=== PATIENT | female | born 1965 | race Caucasian/White ===

== ENCOUNTER → 2017-10-22 16:37 | Outpatient (CLI) | payer OTHER, SELFPAY ==
--- NOTE | 2017-10-22 16:41 | CT_ITS ---
STUDY: CT ABDOMEN AND PELVIS WITHOUT CONTRAST REASON FOR EXAM: Female, 52 years old. Right flank pain and hematuria. RADIATION DOSAGE (If Supplied By Facility): CTDIvol = ( 15.03 ) mGy, DLP = ( 830.15 ) mGycm TECHNIQUE: Transaxial images were obtained from the dome of the diaphragm to the symphysis pubis without oral contrast, and without intravenous contrast. Sagittal and coronal images were reconstructed. Individualized dose optimization techniques were used for this CT. COMPARISON: Prior abdomen and pelvic CT exam of January 08, 2016 FINDINGS: The visualized lung bases are unremarkable. The visualized portions of the heart are within normal limits. Normal liver. There are surgical clips in the gallbladder fossa consistent with a prior cholecystectomy. Normal spleen. Normal pancreas. Normal bilateral adrenal glands. Normal right kidney. Faint calcific density of the upper pole of the left kidney. Negative for hydronephrosis or ureteral stones. Partially fluid-filled stomach. Normal small intestine. Stool filled colon. There is non-visualization of the appendix. Mild calcified plaque of the aorta. Normal inferior vena cava. Normal retroperitoneum. Normal urinary bladder. There is absence of the uterus consistent with a prior hysterectomy. Negative for pelvic mass or free fluid of the pelvis. Minimal fatty umbilical hernia. There are diffuse degenerative changes of the visualized lumbar spine. CT/Abdomen/Pelvis without Cont IMPRESSION: Normal size of the kidneys bilaterally. Nonobstructing calcification in the upper pole of the left kidney. Negative for hydronephrosis, ureteral or bladder stones. Stool-filled colon. No acute bowel related findings. Negative for obstruction, perforation or inflammatory bowel changes. Status post cholecystectomy and hysterectomy. Negative for pelvic mass or free fluid. Electronically Signed: Kathy Thornton MD at 17:21 EDT , Service support ,
[2017-10-22 18:04] LABS: Absolute Lymphocyte Count 2.81 X10^3/ul (0.83-4.51); Absolute Neutrophil Count 10.4 X10^3/uL (2.0-7.7); Basophil# 0.05 X10^3/uL; Basophil% 0.3 % (0-1); Eosinophil# 0.18 X10^3/uL; Eosinophils% 1.2 % (0-5); Hematocrit 38.5 % (37-47); Hemoglobin 12.7 g/dl (12.0-15.0); Lymphocyte # 2.81 X10^3/ul (4.0); Mean Corpuscular Hgb 30.2 pg (27.0-32.0); Mean Corpuscular Volume 91.7 fL (81-99); Monocyte# 1.29 X10^3/uL; Monocyte% 8.7 % (0-10); Neutrophil # 10.39 X10^3/uL (2.7-7.7); Neutrophil % 70.5 % (47-70); Platelet Count 220 K/mm3 (150-450); RBC Distribution Width CV 12.2 % (11.6-14.6); RBC Distribution Width SD 39.9 fl (35.1-43.9); White Blood Count 14.8 K/mm3 (4.4-11.0)
[2017-10-22 18:05] LABS: POSITIVE COUNT NO; POSITIVE DIFFERENTIAL NO; POSITIVE MORPHOLOGY NO
[2017-10-22 18:30] LABS: Anion Gap 6 (5-15); BUN 9 mg/dL (7-18); Calcium,Total 8.5 mg/dL (8.5-10.1); Chloride 103 mmol/L (98-107); EST Glomerular Filtration Rate 111 mL/min (>60); Est Glom Filt Rate - Afr Amer 134 mL/min (>60); Glucose 104 mg/dL (74-106); Potassium 3.9 mmol/L (3.5-5.1); Sodium Level 138 mmol/L (136-145)
== END ==
PROVIDERS: Family Provider Family Medicine; PCP Family Medicine; Visit Provider Family Medicine
DX: N12 Tubulo-interstitial nephritis, not specified as acute or chronic (principal)
CPT/HCPCS: 36415; 74176; 80048; 85025

== ENCOUNTER 2017-10-23 18:29 | Inpatient (IN) | payer OTHER, SELFPAY ==
[2017-10-23] VITALS (9 sets, daily range): BP systolic 116–146; BP diastolic 74–95; PULSE 67–108; RESP 8–18; TEMP 37–38.7; O2SAT 92–108; BMI 32.2; BMI 33.7
--- NOTE | 2017-10-23 18:51 | EKG12_ITS ---
Test Reason : FEVER Blood Pressure : / mmHG Vent. Rate : 096 BPM Atrial Rate : 096 BPM P-R Int : 164 ms QRS Dur : 096 ms QT Int : 392 ms P-R-T Axes : 064 -12 -23 degrees QTc Int : 495 ms Normal sinus rhythm Nonspecific T wave abnormality Prolonged QT Abnormal ECG Confirmed by SANTIAGO ESPINOSA, VOLODYMYR ([id number]), photographic editor WILLIAM LOO ([id number]) on 10/28/2017 2:18:36 PM Referred By: Harshad Karimi Confirmed By:VOLODYMYR HENDERSON MD
--- NOTE | 2017-10-23 18:52 | ED.VISSUMM ---
- ER Visit Summary Date of Service: 10/23/17 Chief Complaint: Fever History of Present Illness: The patient is a 52 F presents with fever. On October 15 the patient began to have urinary symptoms including hematuria. She was placed on Cipro as she has urinary tract infections about 3 times a year. After 5 days she was not improved. She did not have anymore due to the of a grandbaby she put off further treatment. Eventually she got back on Cipro 36 hours ago. She states that she has had persistent nausea and vomiting. She has been able to keep water down today. She took Tylenol prior to arrival. Patient denies any rashes. She notes the pain has mostly been on the right side. Yesterday and working with her primary care physician she had blood work which showed a white count of 14.[address] that was noncontrast of the abdomen pelvis did not show any stone (she has a history of the same). Physical Examination: Temperature 101.7 heart rate of 108 respirations are 17 pulse ox is 92% on room air blood pressure 146/95 Gen: Well-nourished well-developed Head: Normocephalic atraumatic Eyes: Perrl EOMI ENT: TMs clear no rhinorrhea moist mucous membranes Neck: Supple no lymphadenopathy no JVD nontender CVS: Tachycardia regular rate rhythm no murmurs normal S1-S2 Respiratory: No distress clear to auscultation bilaterally chest nontender Abdomen: Soft nontender nondistended normal bowel sounds no masses Back: CVA tenderness Extremity: Prior left leg amputation Skin: Normal color no rash Neuro: alert orientated ?3 CN II-XII intact normal strength sensation reflexes gait cerebellar Psych: Normal affect normal mood Test Results: White count is elevated 15.3. Lactic acid 0.8. Urine is grossly infected with white count greater than 102+ bacteria. Chest x-ray is negative. Emergency Department Course and Treatment: The patient received IV fluids, Motrin, and Zofran. Patient received Rocephin as well as vancomycin to cover for potential MRSA which is led to significant complications in the patient's past. Blood and urine cultures were obtained before antibiotics. Plan is admission into the hospital Impression: 1. Urinary tract infection 2. Sepsis This note was generated with [employer] dictation software. It may contain incorrect words, spelling, and punctuation that were not noted in review of the chart prior to signing ED Disposition - Plan for ED Patient: Disposition: Acute Care Hospital [facility] Chief Complaint: Fever
--- NOTE | 2017-10-23 19:00 | RAD_ITS ---
STUDY: X-RAY CHEST REASON FOR EXAM: Female, 52 years old. UTI, fever TECHNIQUE: Single frontal view COMPARISON: July 22, 2015 FINDINGS: The lungs are clear and expanded. There is no demonstrated pleural abnormality. Slightly prominent size heart. Normal mediastinum and ya. Normal visualized pulmonary arteries. Normal visualized aortic arch and descending thoracic aorta. Mild degenerative changes of the thoracic spine. Normal visualized ribs, clavicles, and shoulders. There is no demonstrated abnormality of the visualized soft tissue structures of the upper abdomen. RAD/Chest 1 View (Portable) IMPRESSION: Slightly prominent cardiac shadow. Electronically Signed: Michael Pereira DO at 19:33 EDT Tel [phone], Service support ,
[2017-10-23] MEDS: 0.9% Normal Saline 1,000 ML 150 ML IV (19:22)
[2017-10-23] MEDS: 0.9% Normal Saline 1,000 ML 999 ML IV (19:22)
[2017-10-23] MEDS: Ondansetron 4 MG/2 ML Vial IV ×2 (19:31→21:01)
[2017-10-23] MEDS: Ibuprofen 400 MG Tablet 800 MG PO (19:31)
[2017-10-23 19:56] LABS: Absolute Lymphocyte Count 1.61 X10^3/ul (0.83-4.51); Absolute Neutrophil Count 11.7 X10^3/uL (2.0-7.7); Basophil# 0.04 X10^3/uL; Basophil% 0.3 % (0-1); Eosinophil# 0.14 X10^3/uL; Eosinophils% 0.9 % (0-5); Hematocrit 36.9 % (37-47); Lymphocyte # 1.61 X10^3/ul (4.0); Lymphocyte % 10.5 % (19-41); Mean Corp Hgb Conc 32.5 g/gl (32-36); Mean Corpuscular Hgb 30.4 pg (27.0-32.0); Mean Corpuscular Volume 93.4 fL (81-99); Mean Platelet Vol. 9.9 fl (6.2-12.0); Monocyte# 1.81 X10^3/uL; Monocyte% 11.8 % (0-10); Neutrophil # 11.69 X10^3/uL (2.7-7.7); Neutrophil % 76.2 % (47-70); Platelet Count 213 K/mm3 (150-450); RBC Distribution Width CV 12.4 % (11.6-14.6); RBC Distribution Width SD 42.2 fl (35.1-43.9); Red Blood Count 3.95 M/mm3 (4.2-5.4); White Blood Count 15.3 K/mm3 (4.4-11.0)
[2017-10-23 19:57] LABS: Mucous, Urine 0 SEEN /hpf (<or=2+); Red Blood Cells-Urine 0 SEEN /hpf (0-5)
[2017-10-23 19:58] LABS: Differential Indicated SCAN CRITERIA MET; POSITIVE COUNT NO; POSITIVE DIFFERENTIAL YES; POSITIVE MORPHOLOGY NO
[2017-10-23 20:00] LABS: Color, Urine SEE COMMENT BELOW (Yellow); Glucose, Dipstick Normal (Normal); Ketone-Dipstick Negative (Negative); Leukocyte Esterase-Dipstick 500 /ul (Negative); Nitrite-Dipstick Positive (Negative); Occult Blood-Urine 50 /ul (Negative); Protein-Dipstick 100 mg/dl (Negative); Specific Gravity, Urine 1.015 (1.002-1.030); Urine Bilirubin Dipstick 6 mg/dL (Negative); Urine Clarity Sl. Cloudy (Clear); Urine Urobilinogen 12 mg/dl (Normal)
[2017-10-23 20:26] LABS: Bacteria 2+ /hpf (None Seen)
[2017-10-23 20:27] LABS: Squamous Epithelial Cells - UA 0-5 SEEN /hpf (5-10); White Blood Cells >100 SEEN /hpf (0-5)
[2017-10-23 20:35] LABS: Differential Comment SCANNED
[2017-10-23 20:38] LABS: International Normalized Ratio 1.1; Prothrombin Time (Protime)PT. 13.8 SECONDS (11.7-14.9)
[2017-10-23 20:39] LABS: Partial Thromboplast Time 30.7 Seconds (24.1-36.2)
[2017-10-23 20:42] LABS: Lactic Acid 0.8 mmol/L (0.4-2.0)
[2017-10-23 20:47] LABS: ALB/GLOB Ratio 0.8 RATIO (0.9-2.4); AST(SGOT) 14 U/L (15-37); Alanine Aminotransfer ALT/SGPT 23 U/L (13-56); Albumin, Serum 3.3 g/dL (3.2-5.0); Alkaline Phosphatase 87 U/L (45-117); Anion Gap 8 (5-15); BUN 11 mg/dL (7-18); Chloride 103 mmol/L (98-107); Creatinine, Serum 0.69 mg/dL (0.55-1.02); EST Glomerular Filtration Rate 95 mL/min (>60); Est Glom Filt Rate - Afr Amer 114 mL/min (>60); Globulin 4.2 g/dL (2.2-4.2); Glucose 106 mg/dL (74-106); Potassium 3.7 mmol/L (3.5-5.1); Protein, Total 7.5 g/dL (6.4-8.2); Sodium Level 139 mmol/L (136-145)
--- NOTE | 2017-10-23 21:38 | PCM.HP.STD ---
Problem List (1) Chronic pain syndrome Status: Chronic (2) Anxiety and depression Status: Chronic (3) Obesity (BMI 30.0-34.9) Status: Chronic (4) UTI (urinary tract infection) Status: Acute Qualifiers: Urinary tract infection type: site unspecified (5) Sepsis Status: Acute Qualifiers: Sepsis type: sepsis due to unspecified organism Qualified Code(s): A41.9 - Sepsis, unspecified organism (6) Hyperlipidemia Status: Chronic Qualifiers: Hyperlipidemia type: unspecified Qualified Code(s): E78.5 - Hyperlipidemia, unspecified (7) Obesity Status: Chronic Qualifiers: Obesity type: due to excess calories Obesity classification: adult class 1 (BMI 30 - 34.9) Serious obesity comorbidity presence: unspecified whether serious comorbidity present Body mass index: BMI 32.0-32.9 Qualified Code(s): E66.09 - Other obesity due to excess calories; Z68.32 - Body mass index (BMI) 32.0-32.9, adult (8) Phantom limb syndrome Status: Chronic (9) S/P unilateral above knee amputation Status: Chronic (10) Seizure disorder Status: Chronic History of Present Illness Date of Admission: 10/23/17 Chief Complaint: UTI, failed outpatient abx The patient is a 52 y/o F w/ PMHx: Complex partial seizure disorder, Hyperlipidemia, Chronic Pain Syndrome w/ Phantom Limb Syndrome, Anxiety and Depression, Obesity, Hx MRSA Infection LLE s/p amputation who presents to the [facility] ED on 10/23/17 with ongoing dysuria, nausea with dx per PCP w/ UTI on 10/20/17 with office UA but UCx obtained, placed on cipro which was continued x 5 days without improvement with return to PCP and restart on additional cipro regimen w/ stone protocol CT obtained without acute findings per PCP without improvement with onset fevers, chills, continued nausea without emesis. In the ED work-up included T 101.7, HR 105, BP 125/74, RR 13, 93% 2L NC, CBC w/ WBC 15.3, Hgb 12, Plts 213 with L shift, normal coags, unremarkable CMP, trop normal x 1, UA notably remarkable, UCx and Bld Cx x 2 pending per ED, CXR without marked findings, CT A/P w/ no acute findings, stool filled colon. Past Medical History Past Medical History (Chronic Problems): Chronic Problems Chronic pain syndrome (Chronic) Anxiety and depression (Chronic) Obesity (BMI 30.0-34.9) (Chronic) Seizure disorder (Chronic) Obesity (Chronic) S/P unilateral above knee amputation (Chronic) Hyperlipidemia (Chronic) Phantom limb syndrome (Chronic) Right sided weakness (Chronic) Cephalgia (Chronic) Allergies metoclopramide HCl [From Reglan] Allergy (Verified 10/23/17 18:30) Other SHAKING prochlorperazine edisylate [From Compazine] Allergy (Verified 10/23/17 18:30) Hives prochlorperazine maleate [From Compazine] Allergy (Verified 10/23/17 18:30) Hives promethazine HCl [From Phenergan] Allergy (Verified 10/23/17 18:30) Hives Home Medications: Ambulatory Orders Medication Instructions Recorded Buprenorphine HCl 32 mg SL 4X/DAY 02/05/14 Duloxetine Hcl [Cymbalta] 60 mg PO DAILY 02/05/14 FA/Mv,Ca,Iron,Min/Lycopene/Lut 1 each PO DAILY 02/05/14 [Centravites Tablet] Pregabalin [Lyrica] 150 mg PO DAILY 02/05/14 Docusate Sodium [Colace] 100 mg PO DAILY 07/22/15 Baclofen 10 mg PO QHS PRN 07/23/15 Carbamazepine [Carbamazepine ER] 800 mg PO DAILY 07/23/15 Ciprofloxacin [Cipro] 500 mg PO BID 10/23/17 Quetiapine Fumarate [Seroquel] 300 mg PO QHS 10/23/17 Surgical History: appendectomy, cholecystectomy, hysterectomy, - - LLE amputation s/p MRSA infection, Carpal tunnel surgery. 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, Depression [employer] History: No pertinent [employer] history Lives: Spouse/ Significant Other Smoking Status: Never smoker Tobacco Use: Non-smoker Alcohol: None Drugs: None - *Family History Maternal History Items: Hypertension Paternal History Items: Heart Disease - Father w/ first OK 40s., Hypertension Review of Systems Constitutional: Reports: Anorexia, Chills, Fever, Malaise, Weakness, Fatigue. Denies: Weight Change HEENT: Denies: Head Aches, Sinus Congestion, Sinus Drainage Cardiovascular: Denies: Chest Pain, Palpitations Respiratory: Denies: Cough, Shortness of breath at rest, Sputum production Gastrointestinal: Reports: Abdominal Pain, Nausea. Denies: Vomiting Genitourinary: Reports: Dysuria Musculoskeletal: Reports: Back Pain. Denies: Joint Pain, Joint Tenderness Skin: Denies: Rash, Wounds Neurological: Denies: Numbness, Tingling, Focal weakness Psychiatric: Reports: Anxiety, Depression. Denies: Homicidal Ideations, Suicidal Ideations Hematologic/ Lymphatic: Denies: Easy Bruising, Easy Bleeding VTE Information - Inpt Only VTE Present on Admission: No VTE Mechan Device Prophylaxis: SCD's VTE Pharm Prophylaxis ordered?: Yes Patient Problems: Active and Suspected Problems UTI (urinary tract infection) (Acute) Sepsis (Acute) Subjective: Seated upright in the ED bed, NAD, notes feeling improved w/ ED zofran, IVFs, abx started. Objective: Physical Examination: General: awake, alert, oriented x 3 and cooperative, seated upright in the ED bed in no apparent distress. Skin: normal color, turgor, no icterus, cyanosis. HEENT: AT/NC, EOMI, PERRLA, dry MM, no carotid bruits or JVD noted. Lungs: CTA bilaterally, moderate effort, mild decrease BL bases, no rales, ronchi or wheezing. Heart: Regular rate and rhythm; no gallop, rub audible. Abdomen: soft, obese, mild suprapubic TTP, mild flank discomfort, ND, normal BS, no HSM. Extremities: no cyanosis, clubbing, s/p LLE amputation. Neurological: patient awake, alert, oriented x 3; cognitive function intact; pupils equally reactive to light and accomodation; cranial nerves II-XII grossly normal, moving all 3 extremities, no focal deficits, strength moderately globally decreased secondary to acute presentation. Psychiatric: affect appears normal, no acute evidence of depressive or anxiety feelings. - Physical Exam Vital Signs Temp Pulse Resp BP Pulse Ox 99.1 F 67 8 L 135/93 H 98 10/23/17 20:41 10/23/17 21:15 10/23/17 21:15 10/23/17 21:15 10/23/17 21:15 Oxygen Flow Rate (L/min) 2 Oxygen Delivery Method Nasal Cannula Weight: 182 lb Body Mass Index (BMI) 32.2 Laboratory Tests Past 24 Hrs 10/23/17 10/23/17 10/23/17 19:20 19:20 19:20 WBC 15.3 H RBC 3.95 L Hgb 12.0 Hct 36.9 L MCV 93.4 MCH 30.4 MCHC 32.5 RDW 12.4 RDW Differential 42.2 Plt Count 213 MPV 9.9 Immature Gran % (Auto) 0.300 Neut % (Auto) 76.2 H Lymph % (Auto) 10.5 L [place] % (Auto) 11.8 H Eos % (Auto) 0.9 Baso % (Auto) 0.3 Absolute Neuts (auto) 11.7 H Absolute Lymphs (auto) 1.61 Total Counted Not Reportable Differential Comment SCANNED Diff Path Review May foll PT Cancelled INR Cancelled APTT Cancelled Sodium Cancelled Potassium Cancelled Chloride Cancelled Carbon Dioxide Cancelled Anion Gap Cancelled BUN Cancelled Creatinine Cancelled Estim Creat Clear Calc Cancelled Est GFR (MDRD) Af Amer Cancelled Est GFR (MDRD) Non-Af Cancelled BUN/Creatinine Ratio Cancelled Glucose Cancelled Lactic Acid Calcium Cancelled Total Bilirubin Cancelled AST Cancelled ALT Cancelled Alkaline Phosphatase Cancelled Troponin I Cancelled Total Protein Cancelled Albumin Cancelled Globulin Cancelled Albumin/Globulin Ratio Cancelled Urine Color Urine Clarity Urine pH Ur Specific [place] Urine Protein Urine Glucose (UA) Urine Ketones Urine Occult Blood Urine Nitrite Urine Bilirubin Urine Urobilinogen Ur Leukocyte Esterase Urine RBC Urine WBC Ur Squamous Epith Cells Urine Bacteria Urine Mucus 10/23/17 10/23/17 10/23/17 19:20 19:55 20:10 WBC RBC Hgb Hct MCV MCH MCHC RDW RDW Differential Plt Count MPV Immature Gran % (Auto) Neut % (Auto) Lymph % (Auto) [place] % (Auto) Eos % (Auto) Baso % (Auto) Absolute Neuts (auto) Absolute Lymphs (auto) Total Counted Differential Comment Diff Path Review PT INR APTT Sodium 139 Potassium 3.7 Chloride 103 Carbon Dioxide 28.0 Anion Gap 8 BUN 11 Creatinine 0.69 Estim Creat Clear Calc 78.00 Est GFR (MDRD) Af Amer 114 Est GFR (MDRD) Non-Af 95 BUN/Creatinine Ratio 16.0 Glucose 106 Lactic Acid Cancelled Calcium 8.0 L Total Bilirubin 0.40 AST 14 L ALT 23 Alkaline Phosphatase 87 Troponin I < 0.02 Total Protein 7.5 Albumin 3.3 Globulin 4.2 Albumin/Globulin Ratio 0.8 L Urine Color SEE COMMENT BELOW Urine Clarity Sl. Cloudy Urine pH 5.0 Ur Specific [place] 1.015 Urine Protein 100 H Urine Glucose (UA) Normal Urine Ketones Negative Urine Occult Blood 50 H Urine Nitrite Positive H Urine Bilirubin 6 H Urine Urobilinogen 12 H Ur Leukocyte Esterase 500 H Urine RBC 0 SEEN Urine WBC >100 SEEN Ur Squamous Epith Cells 0-5 SEEN Urine Bacteria 2+ Urine Mucus 0 SEEN 10/23/17 10/23/17 20:10 20:10 WBC RBC Hgb Hct MCV MCH MCHC RDW RDW Differential Plt Count MPV Immature Gran % (Auto) Neut % (Auto) Lymph % (Auto) [place] % (Auto) Eos % (Auto) Baso % (Auto) Absolute Neuts (auto) Absolute Lymphs (auto) Total Counted Differential Comment Diff Path Review PT 13.8 INR 1.1 APTT 30.7 Sodium Potassium Chloride Carbon Dioxide Anion Gap BUN Creatinine Estim Creat Clear Calc Est GFR (MDRD) Af Amer Est GFR (MDRD) Non-Af BUN/Creatinine Ratio Glucose Lactic Acid 0.8 Calcium Total Bilirubin AST ALT Alkaline Phosphatase Troponin I Total Protein Albumin Globulin Albumin/Globulin Ratio Urine Color Urine Clarity Urine pH Ur Specific [place] Urine Protein Urine Glucose (UA) Urine Ketones Urine Occult Blood Urine Nitrite Urine Bilirubin Urine Urobilinogen Ur Leukocyte Esterase Urine RBC Urine WBC Ur Squamous Epith Cells Urine Bacteria Urine Mucus Assessment/Plan Active and Suspected Problems UTI (urinary tract infection) (Acute) Sepsis (Acute) The patient is a 52 y/o F w/ PMHx: Complex partial seizure disorder, Hyperlipidemia, Chronic Pain Syndrome w/ Phantom Limb Syndrome, Anxiety and Depression, Obesity, Hx MRSA Infection LLE s/p amputation who presents to the [facility] ED on 10/23/17 with ongoing dysuria, nausea with dx per PCP w/ UTI on 10/20/17 with office UA but UCx obtained, placed on cipro which was continued x 5 days without improvement with return to PCP and restart on additional cipro regimen w/ stone protocol CT obtained without acute findings per PCP without improvement with onset fevers, chills, continued nausea without emesis. (1) Acute Sepsis secondary to Acute Urinary Tract Infection: Will admit to [facility] w/ telemetry, UA upon ED evaluation remarkable, pending UCx, admission CBC w/ WBC 15.3 with L shift, febrile prior, continue IVFs, monitor I/Os, continue IV Rocephin, given IV vanc x 1 dose in the ED pending Cx with history of MRSA, will continue until UCx results w/ transition as able pending sensitivities and speciation. Bld cx x 2 obtained in the ED. (2) Phantom limb pain syndrome: Will continue home subutex or equivalent regimen per pharmacy, lyrica and baclofen home regimen. (3) Complex partial seizure history: Continue home carbemazepine regimen. (4) Obesity: Weight loss and lifestyle changes encouraged. (5) Anxiety and Depression: Maintain on home cymbalta, seroquel regimen. (6) Hyperlipidemia: Not on regimen, noted history. (7) DVT prophylaxis: SCDs, lovenox. Code Visit Inpatient E&M: 23324 Init Hosp L3
--- NOTE | 2017-10-23 21:49 | HP.PCM_ITS ---
Problem List (1) Chronic pain syndrome Status: Chronic (2) Anxiety and depression Status: Chronic (3) Obesity (BMI 30.0-34.9) Status: Chronic (4) UTI (urinary tract infection) Status: Acute Qualifiers: Urinary tract infection type: site unspecified (5) Sepsis Status: Acute Qualifiers: Sepsis type: sepsis due to unspecified organism Qualified Code(s): A41.9 - Sepsis, unspecified organism (6) Hyperlipidemia Status: Chronic Qualifiers: Hyperlipidemia type: unspecified Qualified Code(s): E78.5 - Hyperlipidemia , unspecified (7) Obesity Status: Chronic Qualifiers: Obesity type: due to excess calories Obesity classification: adult class 1 (BMI 30 - 34.9) Serious obesity comorbidity presence: unspecified whether serious comorbidity present Body mass index: BMI 32.0-32.9 Qualified Code(s) : E66.09 - Other obesity due to excess calories; Z68.32 - Body mass index (BMI) 32.0-32.9, adult (8) Phantom limb syndrome Status: Chronic (9) S/P unilateral above knee amputation Status: Chronic (10) Seizure disorder Status: Chronic History of Present Illness Date of Admission: 10/23/17 Chief Complaint: UTI, failed outpatient abx The patient is a 52 y/o F w/ PMHx: Complex partial seizure disorder, Hyperlipidemia, Chronic Pain Syndrome w/ Phantom Limb Syndrome, Anxiety and Depression, Obesity, Hx MRSA Infection LLE s/p amputation who presents to the [facility] ED on 10/23/17 with ongoing dysuria, nausea with dx per PCP w/ UTI on 10/20/17 with office UA but UCx obtained, placed on cipro which was continued x 5 days without improvement with return to PCP and restart on additional cipro regimen w / stone protocol CT obtained without acute findings per PCP without improvement with onset fevers, chills, continued nausea without emesis. In the ED work-up included T 101.7, HR 105, BP 125/74, RR 13, 93% 2L NC, CBC w/ WBC 15.3, Hgb 12, Plts 213 with L shift, normal coags, unremarkable CMP, trop normal x 1, UA notably remarkable, UCx and Bld Cx x 2 pending per ED, CXR without marked findings, CT A/P w/ no acute findings, stool filled colon. Past Medical History Past Medical History (Chronic Problems): Chronic Problems Chronic pain syndrome (Chronic) Anxiety and depression (Chronic) Obesity (BMI 30.0-34.9) (Chronic) Seizure disorder (Chronic) Obesity (Chronic) S/P unilateral above knee amputation (Chronic) Hyperlipidemia (Chronic) Phantom limb syndrome (Chronic) Right sided weakness (Chronic) Cephalgia (Chronic) Allergies metoclopramide HCl [From Reglan] Allergy (Verified 10/23/17 18:30) Other SHAKING prochlorperazine edisylate [From Compazine] Allergy (Verified 10/23/17 18:30) Hives prochlorperazine maleate [From Compazine] Allergy (Verified 10/23/17 18:30) Hives promethazine HCl [From Phenergan] Allergy (Verified 10/23/17 18:30) Hives Home Medications: Ambulatory Orders Medication Instructions Recorded Buprenorphine HCl 32 mg SL 4X/DAY 02/05/14 Duloxetine Hcl [Cymbalta] 60 mg PO DAILY 02/05/14 FA/Mv,Ca,Iron,Min/Lycopene/Lut 1 each PO DAILY 02/05/14 [Centravites Tablet] Pregabalin [Lyrica] 150 mg PO DAILY 02/05/14 Docusate Sodium [Colace] 100 mg PO DAILY 07/22/15 Baclofen 10 mg PO QHS PRN 07/23/15 Carbamazepine [Carbamazepine ER] 800 mg PO DAILY 07/23/15 Ciprofloxacin [Cipro] 500 mg PO BID 10/23/17 Quetiapine Fumarate [Seroquel] 300 mg PO QHS 10/23/17 Surgical History: appendectomy, cholecystectomy, hysterectomy, - - LLE amputation s/p MRSA infection, Carpal tunnel surgery. 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 Denies: Weight Change HEENT: Denies: Head Aches, Sinus Congestion, Sinus Drainage Cardiovascular: Denies: Chest Pain, Palpitations Respiratory: Denies: Cough, Shortness of breath at rest, Sputum production Gastrointestinal: Reports: Abdominal Pain, Nausea. Denies: Vomiting Genitourinary: Reports: Dysuria Musculoskeletal: Reports: Back Pain. Denies: Joint Pain, Joint Tenderness Skin: Denies: Rash, Wounds Neurological: Denies: Numbness, Tingling, Focal weakness Psychiatric: Reports: Anxiety, Depression. Denies: Homicidal Ideations, Suicidal Ideations Hematologic/ Lymphatic: Denies: Easy Bruising, Easy Bleeding VTE Information - Inpt Only VTE Present on Admission: No VTE Mechan Device Prophylaxis: SCD's VTE Pharm Prophylaxis ordered?: Yes Patient Problems: Active and Suspected Problems UTI (urinary tract infection) (Acute) Sepsis (Acute) Subjective: Seated upright in the ED bed, NAD, notes feeling improved w/ ED zofran, IVFs, abx started. Objective: Physical Examination: General: awake, alert, oriented x 3 and cooperative, seated upright in the ED bed in no apparent distress. Skin: normal color, turgor, no icterus, cyanosis. HEENT: AT/NC, EOMI, PERRLA, dry MM, no carotid bruits or JVD noted. Lungs: CTA bilaterally, moderate effort, mild decrease BL bases, no rales, ronchi or wheezing. Heart: Regular rate and rhythm; no gallop, rub audible. Abdomen: soft, obese, mild suprapubic TTP, mild flank discomfort, ND, normal BS , no HSM. Extremities: no cyanosis, clubbing, s/p LLE amputation. Neurological: patient awake, alert, oriented x 3; cognitive function intact; pupils equally reactive to light and accomodation; cranial nerves II-XII grossly normal, moving all 3 extremities, no focal deficits, strength moderately globally decreased secondary to acute presentation. Psychiatric: affect appears normal, no acute evidence of depressive or anxiety feelings. - Physical Exam Vital Signs Temp Pulse Resp BP Pulse Ox 99.1 F 67 8 L 135/93 H 98 10/23/17 20:41 10/23/17 21:15 10/23/17 21:15 10/23/17 21:15 10/23/17 21:15 Oxygen Flow Rate (L/min) 2 Oxygen Delivery Method Nasal Cannula Weight: 182 lb Body Mass Index (BMI) 32.2 Laboratory Tests Past 24 Hrs 10/23/17 10/23/17 10/23/17 19:20 19:20 19:20 WBC 15.3 H RBC 3.95 L Hgb 12.0 Hct 36.9 L MCV 93.4 MCH 30.4 MCHC 32.5 RDW 12.4 RDW Differential 42.2 Plt Count 213 MPV 9.9 Immature Gran % (Auto) 0.300 Neut % (Auto) 76.2 H Lymph % (Auto) 10.5 L [place] % (Auto) 11.8 H Eos % (Auto) 0.9 Baso % (Auto) 0.3 Absolute Neuts (auto) 11.7 H Absolute Lymphs (auto) 1.61 Total Counted Not Reportable Differential Comment SCANNED Diff Path Review May foll PT Cancelled INR Cancelled APTT Cancelled Sodium Cancelled Potassium Cancelled Chloride Cancelled Carbon Dioxide Cancelled Anion Gap Cancelled BUN Cancelled Creatinine Cancelled Estim Creat Clear Calc Cancelled Est GFR (MDRD) Af Amer Cancelled Est GFR (MDRD) Non-Af Cancelled BUN/Creatinine Ratio Cancelled Glucose Cancelled Lactic Acid Calcium Cancelled Total Bilirubin Cancelled AST Cancelled ALT Cancelled Alkaline Phosphatase Cancelled Troponin I Cancelled Total Protein Cancelled Albumin Cancelled Globulin Cancelled Albumin/Globulin Ratio Cancelled Urine Color Urine Clarity Urine pH Ur Specific [place] Urine Protein Urine Glucose (UA) Urine Ketones Urine Occult Blood Urine Nitrite Urine Bilirubin Urine Urobilinogen Ur Leukocyte Esterase Urine RBC Urine WBC Ur Squamous Epith Cells Urine Bacteria Urine Mucus 10/23/17 10/23/17 10/23/17 19:20 19:55 20:10 WBC RBC Hgb Hct MCV MCH MCHC RDW RDW Differential Plt Count MPV Immature Gran % (Auto) Neut % (Auto) Lymph % (Auto) [place] % (Auto) Eos % (Auto) Baso % (Auto) Absolute Neuts (auto) Absolute Lymphs (auto) Total Counted Differential Comment Diff Path Review PT INR APTT Sodium 139 Potassium 3.7 Chloride 103 Carbon Dioxide 28.0 Anion Gap 8 BUN 11 Creatinine 0.69 Estim Creat Clear Calc 78.00 Est GFR (MDRD) Af Amer 114 Est GFR (MDRD) Non-Af 95 BUN/Creatinine Ratio 16.0 Glucose 106 Lactic Acid Cancelled Calcium 8.0 L Total Bilirubin 0.40 AST 14 L ALT 23 Alkaline Phosphatase 87 Troponin I < 0.02 Total Protein 7.5 Albumin 3.3 Globulin 4.2 Albumin/Globulin Ratio 0.8 L Urine Color SEE COMMENT BELOW Urine Clarity Sl. Cloudy Urine pH 5.0 Ur Specific [place] 1.015 Urine Protein 100 H Urine Glucose (UA) Normal Urine Ketones Negative Urine Occult Blood 50 H Urine Nitrite Positive H Urine Bilirubin 6 H Urine Urobilinogen 12 H Ur Leukocyte Esterase 500 H Urine RBC 0 SEEN Urine WBC >100 SEEN Ur Squamous Epith Cells 0-5 SEEN Urine Bacteria 2+ Urine Mucus 0 SEEN 10/23/17 10/23/17 20:10 20:10 WBC RBC Hgb Hct MCV MCH MCHC RDW RDW Differential Plt Count MPV Immature Gran % (Auto) Neut % (Auto) Lymph % (Auto) [place] % (Auto) Eos % (Auto) Baso % (Auto) Absolute Neuts (auto) Absolute Lymphs (auto) Total Counted Differential Comment Diff Path Review PT 13.8 INR 1.1 APTT 30.7 Sodium Potassium Chloride Carbon Dioxide Anion Gap BUN Creatinine Estim Creat Clear Calc Est GFR (MDRD) Af Amer Est GFR (MDRD) Non-Af BUN/Creatinine Ratio Glucose Lactic Acid 0.8 Calcium Total Bilirubin AST ALT Alkaline Phosphatase Troponin I Total Protein Albumin Globulin Albumin/Globulin Ratio Urine Color Urine Clarity Urine pH Ur Specific [place] Urine Protein Urine Glucose (UA) Urine Ketones Urine Occult Blood Urine Nitrite Urine Bilirubin Urine Urobilinogen Ur Leukocyte Esterase Urine RBC Urine WBC Ur Squamous Epith Cells Urine Bacteria Urine Mucus Assessment/Plan Active and Suspected Problems UTI (urinary tract infection) (Acute) Sepsis (Acute) The patient is a 52 y/o F w/ PMHx: Complex partial seizure disorder, Hyperlipidemia, Chronic Pain Syndrome w/ Phantom Limb Syndrome, Anxiety and Depression, Obesity, Hx MRSA Infection LLE s/p amputation who presents to the [facility] ED on 10/23/17 with ongoing dysuria, nausea with dx per PCP w/ UTI on 10/20/17 with office UA but UCx obtained, placed on cipro which was continued x 5 days without improvement with return to PCP and restart on additional cipro regimen w / stone protocol CT obtained without acute findings per PCP without improvement with onset fevers, chills, continued nausea without emesis. (1) Acute Sepsis secondary to Acute Urinary Tract Infection: Will admit to [facility] w / telemetry, UA upon ED evaluation remarkable, pending UCx, admission CBC w/ WBC 15.3 with L shift, febrile prior, continue IVFs, monitor I/Os, continue IV Rocephin, given IV vanc x 1 dose in the ED pending Cx with history of MRSA, will continue until UCx results w/ transition as able pending sensitivities and speciation. Bld cx x 2 obtained in the ED. (2) Phantom limb pain syndrome: Will continue home subutex or equivalent regimen per pharmacy, lyrica and baclofen home regimen. (3) Complex partial seizure history: Continue home carbemazepine regimen. (4) Obesity: Weight loss and lifestyle changes encouraged. (5) Anxiety and Depression: Maintain on home cymbalta, seroquel regimen. (6) Hyperlipidemia: Not on regimen, noted history. (7) DVT prophylaxis: SCDs, lovenox. Code Visit Inpatient E&M: 92875 Init Hosp L3
[2017-10-23 22:25] LABS: Magnesium 2.3 mg/dL (1.6-2.6)
[2017-10-23] MEDS: QUEtiapine 100 MG Tablet 300 MG PO (23:28)
[2017-10-24] VITALS (15 sets, daily range): BP systolic 102–162; BP diastolic 60–99; PULSE 92–146; RESP 16–18; TEMP 37.2–39.8; O2SAT 93–99
[2017-10-24] MEDS: BUPRENORPHINE HCL 8 MG TAB.SUBL SL ×5 (00:07→23:39)
[2017-10-24] MEDS: hydrALAZINE 20 MG/ML Vial 10 MG IV (02:37)
[2017-10-24] MEDS: oxyCODONE 5 MG Tablet PO ×4 (02:37→21:22)
--- NOTE | 2017-10-24 03:30 | PCM.RX.CS ---
Consult Pharmacy has been consulted to manage selected antiobiotic: Vancomycin Type of Consult: New start Suspected Infection: Sepsis Prior Doses of Antibiotics Received/Current Regimen: Medications Discontinued Medications Vancomycin HCl 1,250 mg/ (Sodium Chloride) 275 mls @ 250 mls/hr IV X1 ONE Stop: 10/23/17 22:35 Last Admin: 10/23/17 21:53 Dose: 250 mls/hr Labs: Sodium 139 mmol/L (136-145) 10/23/17 20:10 Potassium 3.7 mmol/L (3.5-5.1) 10/23/17 20:10 Chloride 103 mmol/L (98-107) 10/23/17 20:10 Carbon Dioxide 28.0 mmol/L (21.0-32.0) 10/23/17 20:10 Anion Gap 8 (5-15) 10/23/17 20:10 BUN 11 mg/dL (7-18) 10/23/17 20:10 Creatinine 0.69 mg/dL (0.55-1.02) 10/23/17 20:10 Est GFR (MDRD) Af Amer 114 mL/min (>60) 10/23/17 20:10 Est GFR (MDRD) Non-Af 95 mL/min (>60) 10/23/17 20:10 BUN/Creatinine Ratio 16.0 RATIO (10-20) 10/23/17 20:10 Glucose 106 mg/dL (74-106) 10/23/17 20:10 Goal Trough: 15-20 mcg/mL Pharmacy Plan for Drug Dosing: Pharmacy Service will continue to monitor and adjust dosing as required. Follow-Up Labs: Trough Vancomycin Labs to be done on [date and time ordered]: 10/24 @2200
[2017-10-24] MEDS: Acetaminophen 325 MG Tablet 650 MG PO ×3 (04:27→21:22)
[2017-10-24] MEDS: DULoxetine Hcl 60 MG Capsule PO (04:29)
[2017-10-24] MEDS: Pregabalin 75 MG Capsule 150 MG PO (04:35)
[2017-10-24] MEDS: Ondansetron 4 MG/2 ML Vial IV ×2 (04:37→21:27)
[2017-10-24] MEDS: 0.9% NaCl Peripheral Flush Adult/Peds IV ×2 (04:37→21:27)
[2017-10-24] MEDS: Phenazopyridine 95 MG Tablet 190 MG PO ×3 (04:50→21:25)
[2017-10-24] MEDS: 0.9% Normal Saline 1,000 ML 150 ML IV ×3 (06:12→21:27)
[2017-10-24 07:18] LABS: Absolute Lymphocyte Count 1.71 X10^3/ul (0.83-4.51); Absolute Neutrophil Count 10.5 X10^3/uL (2.0-7.7); Basophil# 0.05 X10^3/uL; Basophil% 0.4 % (0-1); Differential Indicated SCAN CRITERIA MET; Eosinophil# 0.14 X10^3/uL; Hematocrit 34.2 % (37-47); Lymphocyte # 1.71 X10^3/ul (4.0); Lymphocyte % 12.2 % (19-41); Mean Corp Hgb Conc 32.2 g/gl (32-36); Mean Corpuscular Hgb 30.6 pg (27.0-32.0); Mean Corpuscular Volume 95.3 fL (81-99); Mean Platelet Vol. 10.3 fl (6.2-12.0); Monocyte# 1.66 X10^3/uL; Monocyte% 11.8 % (0-10); Neutrophil # 10.45 X10^3/uL (2.7-7.7); Neutrophil % 74.2 % (47-70); POSITIVE COUNT NO; POSITIVE DIFFERENTIAL YES; POSITIVE MORPHOLOGY NO; Platelet Count 191 K/mm3 (150-450); RBC Distribution Width CV 12.2 % (11.6-14.6); Red Blood Count 3.59 M/mm3 (4.2-5.4); White Blood Count 14.1 K/mm3 (4.4-11.0)
[2017-10-24 07:27] LABS: Anion Gap 7 (5-15); BUN 9 mg/dL (7-18); BUN/Creat Ratio 16.5 RATIO (10-20); Calcium,Total 7.9 mg/dL (8.5-10.1); Chloride 105 mmol/L (98-107); Creatinine, Serum 0.54 mg/dL (0.55-1.02); EST Glomerular Filtration Rate 124 mL/min (>60); Est Glom Filt Rate - Afr Amer 150 mL/min (>60); Estimated Creatinine Clearance 99.67 ml/min; Glucose 100 mg/dL (74-106); Potassium 3.4 mmol/L (3.5-5.1); Sodium Level 139 mmol/L (136-145)
[2017-10-24] MEDS: carBAMazepine 400 MG TAB.SR.12H 800 MG PO (08:00)
--- NOTE | 2017-10-24 09:31 | PCM.PN.HOSP ---
Patient Problems: Active and Suspected Problems UTI (urinary tract infection) (Acute) Sepsis (Acute) Subjective: Patient is a 52-year-old lady with multiple comorbidities who was admitted with nausea fever chills as well as progressive generalized weakness. Patient had apparently been treated as outpatient for UTI however her condition continued to worsen 10/24/2017: Patient seen, diagnostic workup significant for potassium of 3.4 Objective: GENERAL: cooperative but appears ill looking HEENT: Clear conjunctiva, NECK; supple, normal thyroid, CHEST: Clear to auscultation bilaterally, HEART: Regular S1 S2, tachycardiac ABDOMEN: soft, non-tender, normoactive bowel sounds, RECTAL: deferred EXTREMITIES: Right AKA LATHE WINDER: Awake, no lateralizing signs. SKIN: No rash Vitals/I&O's: Vital Signs Temp Pulse Resp BP Pulse Ox 99.7 F H 98 16 102/68 93 10/24/17 07:37 10/24/17 07:37 10/24/17 07:37 10/24/17 07:37 10/24/17 07:37 Oxygen Delivery Method Room Air Weight: 86.5 kg Body Mass Index (BMI) 33.7 Intake and Output for Last 24 Hours 10/22/17 10/23/17 10/24/17 23:59 23:59 23:59 Intake Total 2776 / 2776 Balance 2776 / 2776 Laboratory Results 10/24/17 05:25: Sodium 139, Potassium 3.4 L, Chloride 105, Carbon Dioxide 27.0, Anion Gap 7, BUN 9, Creatinine 0.54 L, Estim Creat Clear Calc 99.67, Est GFR (MDRD) Af Amer 150, Est GFR (MDRD) Non-Af 124, BUN/Creatinine Ratio 16.5, Glucose 100, Calcium 7.9 L 10/24/17 05:25: WBC 14.1 H, RBC 3.59 L, Hgb 11.0 L, Hct 34.2 L, MCV 95.3, MCH 30.6, MCHC 32.2, RDW 12.2, RDW Differential 41.0, Plt Count 191, MPV 10.3, Immature Gran % (Auto) 0.400, Neut % (Auto) 74.2 H, Lymph % (Auto) 12.2 L, [place] % (Auto) 11.8 H, Eos % (Auto) 1.0, Baso % (Auto) 0.4, Absolute Neuts (auto) 10.5 H, Absolute Lymphs (auto) 1.71, Total Counted Not Reportable, Diff Path Review May foll Current Medications Acetaminophen (Tylenol) 650 mg PO Q6H PRN PRN PRN Reason: Mild Pain (scale 0-3)/T>100.7 Last Admin: 10/24/17 04:27 Dose: 650 mg Al Hydroxide/Mg Hydroxide (Mylanta Ii) 30 ml PO Q6H PRN PRN PRN Reason: Gastric burning Baclofen (Lioresal) 10 mg PO QHS PRN PRN Reason: MUSCLE SPASM Buprenorphine HCl (Buprenorphine Hcl) 8 mg SL Q6H [facility] Last Admin: 10/24/17 06:12 Dose: 8 mg Carbamazepine (Tegretol Xr) 800 mg PO DAILY@0600 [facility] Docusate Sodium (Colace) 100 mg PO DAILY [facility] Duloxetine HCl (Cymbalta) 60 mg PO DAILY@0600 [facility] Last Admin: 10/24/17 04:29 Dose: 60 mg Enoxaparin Sodium (Lovenox) 40 mg SC DAILY@1000 [facility] Hydralazine HCl (Apresoline Iv) 10 mg IV Q4H PRN PRN PRN Reason: SBP > 160 Last Admin: 10/24/17 02:37 Dose: 10 mg Sodium Chloride () 1,000 mls @ 150 mls/hr IV .[id number] [facility] Last Admin: 10/24/17 06:12 Dose: 150 mls/hr Ceftriaxone Sodium (Rocephin) 1 gm in 50 mls @ 100 mls/hr IV Q24 [facility] Vancomycin HCl (Vancomycin) 1,000 mg in 200 mls @ 200 mls/hr IV Q8H [facility] Last Admin: 10/24/17 06:11 Dose: 200 mls/hr Sodium Chloride () 250 mls @ 15 mls/hr IV .[id number] PRN PRN Reason: SALINE FLUSH Magnesium Hydroxide (Milk Of Magnesia) 30 ml PO DAILY PRN PRN PRN Reason: Constipation Morphine Sulfate () 2 - 4 mg IV Q3H PRN PRN PRN Reason: Severe Pain (pain scale 6-10) Morphine Sulfate () 1 - 2 mg IV Q4H PRN PRN PRN Reason: Moderate Pain (pain scale 4-5) Nystatin (Nystatin) 500,000 unit PO 4X/DAY [facility] Ondansetron HCl (Zofran) 4 mg IV Q8H PRN PRN PRN Reason: NAUSEA Last Admin: 10/24/17 04:37 Dose: 4 mg Oxycodone HCl (Oxyir) 5 mg PO Q4H PRN PRN PRN Reason: Moderate Pain (pain scale 4-5) Last Admin: 10/24/17 02:37 Dose: 5 mg Phenazopyridine HCl (Azo Standard) 190 mg PO TID [facility] Stop: 10/25/17 22:01 Last Admin: 10/24/17 04:50 Dose: 190 mg Pregabalin (Lyrica) 150 mg PO DAILY@0600 [facility] Last Admin: 10/24/17 04:35 Dose: 150 mg Quetiapine Fumarate (Seroquel) 300 mg PO QHS [facility] Last Admin: 10/23/17 23:28 Dose: 300 mg Sodium Chloride () 5 - 30 ml IV UD PRN PRN Reason: SALINE FLUSH Last Admin: 10/24/17 04:37 Dose: 10 ml Medical Necessity - Tobacco Use Smoking Status: Never smoker Tobacco Use: Non-smoker Assessment/Plan Active and Suspected Problems UTI (urinary tract infection) (Acute) Sepsis (Acute) Patient is a 52-year-old lady with multiple comorbidities who was admitted with nausea fever chills as well as progressive generalized weakness. Patient had apparently been treated as outpatient for UTI however her condition continued to worsen 1. Sepsis secondary to UTI patient did fail outpatient treatment admitted to regular nursing floor repeat cultures obtained patient started on Rocephin 2. History of complex partial seizures patient is on carbamazepine did continue 3. Phantom limb syndrome and is on Lyrica and baclofen 4. Morbid obesity with BMI of 33.8 weight loss advised 5. Depression with anxiety patient is on Seroquel and Cymbalta 6. Dyslipidemia patient history 7. Hypokalemia corrected per protocol 8. Status post left above knee amputation on account of persistent MRSA infection 9. DVT prophylaxis SC Lovenox Code Visit Inpatient E&M: [id number] [facility] Hosp L3
[2017-10-24] MEDS: NYSTATIN 500,000 UNIT/5 ML UDC 500000 UNIT PO ×4 (09:51→21:25)
[2017-10-24] MEDS: Ceftriaxone 1 GM/50 ML BAG IV ×2 (09:51→12:55)
[2017-10-24] MEDS: Enoxaparin 40 MG/0.4 ML Syringe SC (09:51)
[2017-10-24] MEDS: Docusate Sodium 100 MG Capsule PO (09:51)
--- NOTE | 2017-10-24 11:16 | CON.PCM_ITS ---
Problem List (1) Sepsis Status: Acute Qualifiers: Sepsis type: sepsis due to unspecified organism Qualified Code(s): A41.9 - Sepsis, unspecified organism Reason for Consult: fever Consulted by: Dr. Garza History of Present Illness: The patient is a 52 year old F with remote h/o MRSA LLE osteo requiring disarticulation who presented with 7-10 days of progressive dysuria, lower abd pain, R flank pain, fever, chills, n/v. Saw PCP Dr. Martel, UA showed infection , no cx sent. Started on po cipro, but sx did not improve over the next few days. Now with fever to 103, sent to ED, given ceftriaxone/vanc, still febrile overnight, but feeling a little better. Full ROS performed and neg except as noted above. Gets uti about once a year, always treated with cipro. - Medical History Past Medical History (Chronic Problems): Chronic Problems Chronic pain syndrome (Chronic) Anxiety and depression (Chronic) Obesity (BMI 30.0-34.9) (Chronic) Seizure disorder (Chronic) Obesity (Chronic) S/P unilateral above knee amputation (Chronic) Hyperlipidemia (Chronic) Phantom limb syndrome (Chronic) Right sided weakness (Chronic) Cephalgia (Chronic) Allergies/Adverse Reactions: Allergies metoclopramide HCl [From Reglan] Allergy (Verified 10/23/17 18:30) Other SHAKING prochlorperazine edisylate [From Compazine] Allergy (Verified 10/23/17 18:30) Hives prochlorperazine maleate [From Compazine] Allergy (Verified 10/23/17 18:30) Hives promethazine HCl [From Phenergan] Allergy (Verified 10/23/17 18:30) Hives Home Medications: Ambulatory Orders Medication Instructions Recorded Buprenorphine HCl 8 mg SL 4X/DAY 02/05/14 Duloxetine Hcl [Cymbalta] 60 mg PO DAILY 02/05/14 FA/Mv,Ca,Iron,Min/Lycopene/Lut 1 each PO DAILY 02/05/14 [Centravites Tablet] Pregabalin [Lyrica] 150 mg PO DAILY 02/05/14 Docusate Sodium [Colace] 100 mg PO DAILY 07/22/15 Baclofen 10 mg PO QHS PRN 07/23/15 Carbamazepine [Carbamazepine ER] 800 mg PO DAILY 07/23/15 Ciprofloxacin [Cipro] 500 mg PO BID 10/23/17 Quetiapine Fumarate [Seroquel] 300 mg PO QHS 10/23/17 - Social History Tobacco Use: non-smoker Vital Signs Temp Pulse Resp BP Pulse Ox 99.7 F H 98 16 102/68 93 10/24/17 07:37 10/24/17 07:37 10/24/17 07:37 10/24/17 07:37 10/24/17 07:37 Oxygen Delivery Method Room Air Weight: 86.5 kg Body Mass Index (BMI) 33.7 Laboratory Tests Past 24 Hrs 10/24/17 10/24/17 05:25 05:25 WBC 14.1 H RBC 3.59 L Hgb 11.0 L Hct 34.2 L MCV 95.3 MCH 30.6 MCHC 32.2 RDW 12.2 RDW Differential 41.0 Plt Count 191 MPV 10.3 Immature Gran % (Auto) 0.400 Neut % (Auto) 74.2 H Lymph % (Auto) 12.2 L [place] % (Auto) 11.8 H Eos % (Auto) 1.0 Baso % (Auto) 0.4 Absolute Neuts (auto) 10.5 H Absolute Lymphs (auto) 1.71 Total Counted Not Reportable Diff Path Review November foll Sodium 139 Potassium 3.4 L Chloride 105 Carbon Dioxide 27.0 Anion Gap 7 BUN 9 Creatinine 0.54 L Estim Creat Clear Calc 99.67 Est GFR (MDRD) Af Amer 150 Est GFR (MDRD) Non-Af 124 BUN/Creatinine Ratio 16.5 Glucose 100 Calcium 7.9 L - Other Studies Radiology: [] reviewed Other Studies: [] Route of nutrition/ use of supplements: [] Nutritional Intake: [] IV Site: [] López Catheter: [] - Physical Exam General: Alert, Oriented x3, Cooperative, No apparent distress HEENT: Atraumatic, PERRLA, EOMI Neck: Supple, No Nodes Lungs: Clear to auscultation, Normal air movement Cardiovascular: Regular rate, Regular Rhythm, No murmurs Abdomen: Bowel Sounds Present, Soft, Non Tender, Non-Distended, - - mild R flank pain Extremities: No edema Skin: No rashes IV Site: Peripheral, without redness Musculoskeletal: No Tenderness to Palpation of Joints or Extremities Neurological: Cranial nerves II-XII grossly intact - Assessment/Plan Antibiotics: [] Assessment/Plan: [] Active and Suspected Problems UTI (urinary tract infection) (Acute) Sepsis (Acute) Sepsis due to R pyelonephritis - no cx sent as an outpatient. Failed cipro treatment. Continue ceftriaxone, but if continues to have fever would change to cefepime. Low suspicion for mRSA infection, will stop vanc. Thank you, will follow.
--- NOTE | 2017-10-24 14:53 | PCA ---
charted on wrong pt. for shower at 10am on 10-24-2017. i cant undo it
--- NOTE | 2017-10-24 15:29 | CASEMGMT ---
RN WANG Face to Face with patient for initial transition planning/care coordination assessment. RN CM introduced self and role at [facility]. Patient lying in bed, alert and oriented. Patient willing to participate in assessment and is able to answer all questions appropriately. Care providers, pharmacy, and demographics verified. See link attached. Patient wishes to discharge home, denies need for home health at this time. Patient states she has no further needs or concerns at this time. CM to follow for discharge planning needs that may arise. Disposition Plan: Patient to discharge home with family support and follow-up plans in place.
[2017-10-24] MEDS: QUEtiapine 100 MG Tablet 300 MG PO (21:23)
[2017-10-25] VITALS (12 sets, daily range): BP systolic 106–134; BP diastolic 59–88; PULSE 83–96; RESP 16–18; TEMP 36.7–37.7; O2SAT 94–97
[2017-10-25] MEDS: 0.9% Normal Saline 1,000 ML 150 ML IV ×3 (04:19→19:23)
[2017-10-25] MEDS: Phenazopyridine 95 MG Tablet 190 MG PO ×3 (05:29→20:48)
[2017-10-25] MEDS: DULoxetine Hcl 60 MG Capsule PO (05:29)
[2017-10-25] MEDS: BUPRENORPHINE HCL 8 MG TAB.SUBL SL ×4 (05:29→23:12)
[2017-10-25] MEDS: carBAMazepine 400 MG TAB.SR.12H 800 MG PO (05:30)
[2017-10-25] MEDS: Pregabalin 75 MG Capsule 150 MG PO ×2 (05:31→23:12)
[2017-10-25] MEDS: Acetaminophen 325 MG Tablet 650 MG PO ×3 (06:38→21:55)
[2017-10-25] MEDS: oxyCODONE 5 MG Tablet PO ×4 (06:38→19:23)
[2017-10-25] MEDS: Ondansetron 4 MG/2 ML Vial IV ×3 (06:41→21:57)
[2017-10-25] MEDS: 0.9% NaCl Peripheral Flush Adult/Peds IV (06:41)
[2017-10-25 07:27] LABS: Hematocrit 31.2 % (37-47); Mean Corp Hgb Conc 32.1 g/gl (32-36); Mean Corpuscular Hgb 30.7 pg (27.0-32.0); Mean Corpuscular Volume 95.7 fL (81-99); Mean Platelet Vol. 10.1 fl (6.2-12.0); Platelet Count 196 K/mm3 (150-450); RBC Distribution Width CV 12.2 % (11.6-14.6); RBC Distribution Width SD 41.5 fl (35.1-43.9); Red Blood Count 3.26 M/mm3 (4.2-5.4); White Blood Count 11.5 K/mm3 (4.4-11.0)
[2017-10-25 07:28] LABS: Scan Indicated on CBC? Y/N NO
[2017-10-25 07:37] LABS: Anion Gap 5 (5-15); BUN 7 mg/dL (7-18); BUN/Creat Ratio 14.9 RATIO (10-20); Chloride 107 mmol/L (98-107); Creatinine, Serum 0.47 mg/dL (0.55-1.02); EST Glomerular Filtration Rate 147 mL/min (>60); Est Glom Filt Rate - Afr Amer 178 mL/min (>60); Estimated Creatinine Clearance 114.51 ml/min; Glucose 98 mg/dL (74-106); Magnesium 2.1 mg/dL (1.6-2.6); Potassium 3.5 mmol/L (3.5-5.1); Sodium Level 141 mmol/L (136-145)
--- NOTE | 2017-10-25 09:01 | PN_ITS ---
Patient Problems: Active and Suspected Problems UTI (urinary tract infection) (Acute) Sepsis (Acute) Subjective: Patient seen continues to spike fevers. 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 SKIN: No rash Vitals/I&O's: Vital Signs Temp Pulse Resp BP Pulse Ox 100 F H 94 18 106/60 95 10/25/17 05:34 10/25/17 07:02 10/25/17 02:46 10/25/17 02:46 10/25/17 08:07 Oxygen Delivery Method Room Air Weight: 86.5 kg Body Mass Index (BMI) 33.7 Intake and Output for Last 24 Hours 10/23/17 10/24/17 10/25/17 23:59 23:59 23:59 Intake Total 5841 / 5841 927 / 927 Output Total 1000 / 1000 500 / 500 Balance 4841 / 4841 427 / 427 Laboratory Results 10/25/17 06:30: WBC 11.5 H, RBC 3.26 L, Hgb 10.0 L, Hct 31.2 L, MCV 95.7, MCH 30.7, MCHC 32.1, RDW 12.2, RDW Differential 41.5, Plt Count 196, MPV 10.1 10/25/17 06:30: Sodium 141, Potassium 3.5, Chloride 107, Carbon Dioxide 29.0, Anion Gap 5, BUN 7, Creatinine 0.47 L, Estim Creat Clear Calc 114.51, Est GFR ( MDRD) Af Amer 178, Est GFR (MDRD) Non-Af 147, BUN/Creatinine Ratio 14.9, Glucose 98, Calcium 8.0 L, Magnesium 2.1 Current Medications Acetaminophen (Tylenol) 650 mg PO Q6H PRN PRN PRN Reason: Mild Pain (scale 0-3)/T>100.7 Last Admin: 10/25/17 06:38 Dose: 650 mg Al Hydroxide/Mg Hydroxide (Mylanta Ii) 30 ml PO Q6H PRN PRN PRN Reason: Gastric burning Baclofen (Lioresal) 10 mg PO QHS PRN PRN Reason: MUSCLE SPASM Buprenorphine HCl (Buprenorphine Hcl) 8 mg SL Q6H [facility] Last Admin: 10/25/17 05:29 Dose: 8 mg Carbamazepine (Tegretol Xr) 800 mg PO DAILY@0600 [facility] Last Admin: 10/25/17 05:30 Dose: 800 mg Docusate Sodium (Colace) 100 mg PO DAILY [facility] Last Admin: 10/24/17 09:51 Dose: 100 mg Duloxetine HCl (Cymbalta) 60 mg PO DAILY@0600 [facility] Last Admin: 10/25/17 05:29 Dose: 60 mg Enoxaparin Sodium (Lovenox) 40 mg SC DAILY@1000 [facility] Last Admin: 10/24/17 09:51 Dose: 40 mg Hydralazine HCl (Apresoline Iv) 10 mg IV Q4H PRN PRN PRN Reason: SBP > 160 Last Admin: 10/24/17 02:37 Dose: 10 mg Sodium Chloride () 1,000 mls @ 150 mls/hr IV .Q6H40M [facility] Last Admin: 10/25/17 04:19 Dose: 150 mls/hr Sodium Chloride () 250 mls @ 15 mls/hr IV .[id number] PRN PRN Reason: SALINE FLUSH Ceftriaxone Sodium 2 gm/ (Sodium Chloride) 50 mls @ 100 mls/hr IV Q24 [facility] Magnesium Hydroxide (Milk Of Magnesia) 30 ml PO DAILY PRN PRN PRN Reason: Constipation Morphine Sulfate () 2 - 4 mg IV Q3H PRN PRN PRN Reason: Severe Pain (pain scale 6-10) Morphine Sulfate () 1 - 2 mg IV Q4H PRN PRN PRN Reason: Moderate Pain (pain scale 4-5) Nystatin (Nystatin) 500,000 unit PO 4X/DAY [facility] Last Admin: 10/24/17 21:25 Dose: 500,000 unit Ondansetron HCl (Zofran) 4 mg IV Q6H PRN PRN PRN Reason: NAUSEA Last Admin: 10/25/17 06:41 Dose: 4 mg Oxycodone HCl (Oxyir) 5 mg PO Q4H PRN PRN PRN Reason: Moderate Pain (pain scale 4-5) Last Admin: 10/25/17 06:38 Dose: 5 mg Phenazopyridine HCl (Azo Standard) 190 mg PO TID [facility] Stop: 10/25/17 22:01 Last Admin: 10/25/17 05:29 Dose: 190 mg Potassium Chloride (K-Dur) 20 meq PO BIDCM [facility] Last Admin: 10/24/17 16:37 Dose: 20 meq Pregabalin (Lyrica) 150 mg PO DAILY@0600 [facility] Last Admin: 10/25/17 05:31 Dose: 150 mg Quetiapine Fumarate (Seroquel) 300 mg PO QHS [facility] Last Admin: 10/24/17 21:23 Dose: 300 mg Sodium Chloride () 5 - 30 ml IV UD PRN PRN Reason: SALINE FLUSH Last Admin: 10/25/17 06:41 Dose: 10 ml Medical Necessity - Tobacco Use Smoking Status: Never smoker Tobacco Use: Non-smoker Assessment/Plan Active and Suspected Problems UTI (urinary tract infection) (Acute) Sepsis (Acute) Patient is a 52-year-old lady with multiple comorbidities who was admitted with nausea fever chills as well as progressive generalized weakness. Patient had apparently been treated as outpatient for UTI however her condition continued to worsen 1. Sepsis secondary to UTI patient did fail outpatient treatment admitted to regular nursing floor repeat cultures obtained patient started on Rocephin 2. History of complex partial seizures patient is on carbamazepine did continue 3. Phantom limb syndrome and is on Lyrica and baclofen 4. Morbid obesity with BMI of 33.8 weight loss advised 5. Depression with anxiety patient is on Seroquel and Cymbalta 6. Dyslipidemia patient history 7. Hypokalemia corrected per protocol 8. Status post left above knee amputation on account of persistent MRSA infection 9. DVT prophylaxis SC Lovenox Code Visit Inpatient E&M: 73482 Subs Hosp L3
[2017-10-25] MEDS: NYSTATIN 500,000 UNIT/5 ML UDC 500000 UNIT PO ×3 (10:11→17:23)
[2017-10-25] MEDS: Enoxaparin 40 MG/0.4 ML Syringe SC (10:11)
[2017-10-25] MEDS: Docusate Sodium 100 MG Capsule PO (10:11)
[2017-10-25] MEDS: Pregabalin 75 MG Capsule PO (12:07)
[2017-10-25] MEDS: QUEtiapine 100 MG Tablet 300 MG PO (20:47)
[2017-10-25] MEDS: Baclofen 10 MG Tablet PO (20:52)
[2017-10-26] VITALS: PULSE 67
[2017-10-26] MEDS: 0.9% Normal Saline 1,000 ML 150 ML IV (02:55)
[2017-10-26 02:59] VITALS: BP 126/82; PULSE 91; RESP 18; TEMP 36.8; O2SAT 96
[2017-10-26] MEDS: oxyCODONE 5 MG Tablet PO (03:02)
[2017-10-26 03:59] VITALS: PULSE 110
[2017-10-26] MEDS: Ondansetron 4 MG/2 ML Vial IV (05:15)
[2017-10-26] MEDS: Acetaminophen 325 MG Tablet 650 MG PO (05:22)
[2017-10-26] MEDS: Pregabalin 75 MG Capsule 150 MG PO (05:22)
[2017-10-26] MEDS: DULoxetine Hcl 60 MG Capsule PO (05:22)
[2017-10-26] MEDS: carBAMazepine 400 MG TAB.SR.12H 800 MG PO (05:23)
[2017-10-26] MEDS: BUPRENORPHINE HCL 8 MG TAB.SUBL SL (05:23)
[2017-10-26 06:31] LABS: Hemoglobin 10.6 g/dl (12.0-15.0); Mean Corp Hgb Conc 32.1 g/gl (32-36); Mean Corpuscular Hgb 30.9 pg (27.0-32.0); Mean Corpuscular Volume 96.2 fL (81-99); Platelet Count 237 K/mm3 (150-450); RBC Distribution Width CV 12.3 % (11.6-14.6); RBC Distribution Width SD 41.7 fl (35.1-43.9); Red Blood Count 3.43 M/mm3 (4.2-5.4); White Blood Count 8.5 K/mm3 (4.4-11.0)
[2017-10-26 06:37] LABS: Scan Indicated on CBC? Y/N NO
[2017-10-26 06:57] LABS: Anion Gap 4 (5-15); BUN 6 mg/dL (7-18); BUN/Creat Ratio 11.8 RATIO (10-20); Calcium,Total 8.2 mg/dL (8.5-10.1); Chloride 107 mmol/L (98-107); Creatinine, Serum 0.51 mg/dL (0.55-1.02); EST Glomerular Filtration Rate 134 mL/min (>60); Est Glom Filt Rate - Afr Amer 163 mL/min (>60); Estimated Creatinine Clearance 105.53 ml/min; Glucose 98 mg/dL (74-106); Potassium 3.4 mmol/L (3.5-5.1); Sodium Level 143 mmol/L (136-145)
[2017-10-26 07:52] VITALS: PULSE 92
--- NOTE | 2017-10-26 08:33 | PCM.DC.SUM ---
Discharge Date and Diagnosis - Problem List Patient Problems: Active and Suspected Problems UTI (urinary tract infection) (Acute) Sepsis (Acute) Date of Admission: 10/23/17 Date of Discharge: 10/26/17 - Primary Discharge Diagnosis Active and Suspected Problems UTI (urinary tract infection) (Acute) Sepsis (Acute) - Secondary Discharge Diagnosis Chronic Problems Chronic pain syndrome (Chronic) Anxiety and depression (Chronic) Obesity (BMI 30.0-34.9) (Chronic) Seizure disorder (Chronic) Obesity (Chronic) S/P unilateral above knee amputation (Chronic) Hyperlipidemia (Chronic) Phantom limb syndrome (Chronic) Right sided weakness (Chronic) Cephalgia (Chronic) Hospital Course and Treatment Imaging Results: Clinical Impression(s) from Imaging Studies Chest X-Ray 10/23/17 19:00 IMPRESSION: Slightly prominent cardiac shadow. Electronically Signed: Michael Pereira DO at 19:33 EDT Tel [phone], Service support , Microbiology 10/23/17 19:55 Urine, Random Urine Culture - Final Escherichia coli Operations: None Summary of Care Provided: Patient is a 52-year-old lady with multiple comorbidities who was admitted with nausea fever chills as well as progressive generalized weakness. Patient had apparently been treated as outpatient for UTI however her condition continued to worsen 1. Sepsis secondary to UTI with E. coli ; patient did fail outpatient treatment admitted to regular nursing floor repeat cultures obtained patient started on Rocephin patient urine cultures came back positive for E. coli with resistant to quinolones however was sensitive to cephalosporins patient was therefore discharged home on Keflex instructed to follow-up with PCP for subsequent care 2. History of complex partial seizures patient is on carbamazepine did continue 3. Phantom limb syndrome and is on Lyrica and baclofen 4. Morbid obesity with BMI of 33.8 weight loss advised 5. Depression with anxiety patient is on Seroquel and Cymbalta 6. Dyslipidemia patient history 7. Hypokalemia corrected per protocol 8. Status post left above knee amputation on account of persistent MRSA infection 9. DVT prophylaxis SC Lovenox Discharge Diet: No Restrictions Home Medications: Medications to take at Discharge Buprenorphine HCl 8 mg SL 4X/DAY 02/05/14 Duloxetine Hcl [Cymbalta] 60 mg PO DAILY 02/05/14 FA/Mv,Ca,Iron,Min/Lycopene/Lut [Centravites Tablet] 1 each PO DAILY 02/05/14 Pregabalin [Lyrica] 150 mg PO TID 02/05/14 Docusate Sodium [Colace] 100 mg PO DAILY 07/22/15 Baclofen 10 mg PO QHS PRN 07/23/15 Carbamazepine [Carbamazepine ER] 800 mg PO DAILY 07/23/15 Ciprofloxacin [Cipro] 500 mg PO BID 10/23/17 Quetiapine Fumarate [Seroquel] 300 mg PO QHS 10/23/17 Acetaminophen [Tylenol Tablet] 650 mg PO Q6H PRN PRN tablet 10/26/17 Cephalexin [Keflex] 500 mg PO Q12 #14 cap 10/26/17 Lactobacillus Acidophilus [Acidophilus] 1 tab PO DAILY #30 tab 10/26/17 Following Prescrptions Were Given to Patient: Cephalexin [Keflex] 500 mg PO Q12 #14 cap Lactobacillus Acidophilus [Acidophilus] 1 tab PO DAILY #30 tab Primary Care Physician: Harshad Karimi MD [Primary Care Provider] - Please follow up with your Primary Care Physician in: in 3-5 days Disposition: Home Minutes spent on discharge:: 35 Patient Condition:: Stable Medical Necessity - Tobacco Use Smoking Status: Never smoker Tobacco Use: Non-smoker Meaningful Use Info Meaningful Use Diagnoses (Choose all that apply): None applicable Code Visit Inpatient E&M: 28336 Disch Hosp
--- NOTE | 2017-10-26 08:35 | PCM.DC ---
- Discharge Diagnoses Current Active Problems: Current Active and Chronic Problems Chronic pain syndrome (Chronic) Anxiety and depression (Chronic) Obesity (BMI 30.0-34.9) (Chronic) UTI (urinary tract infection) (Acute) Sepsis (Acute) You will use the following diet at home:: No restrictions Allergies/Adverse Reactions: Allergies metoclopramide HCl [From Reglan] Allergy (Verified 10/23/17 18:30) Other SHAKING prochlorperazine edisylate [From Compazine] Allergy (Verified 10/23/17 18:30) Hives prochlorperazine maleate [From Compazine] Allergy (Verified 10/23/17 18:30) Hives promethazine HCl [From Phenergan] Allergy (Verified 10/23/17 18:30) Hives Medications to take at Discharge Buprenorphine HCl 8 mg SL 4X/DAY 02/05/14 Duloxetine Hcl [Cymbalta] 60 mg PO DAILY 02/05/14 FA/Mv,Ca,Iron,Min/Lycopene/Lut [Centravites Tablet] 1 each PO DAILY 02/05/14 Pregabalin [Lyrica] 150 mg PO TID 02/05/14 Docusate Sodium [Colace] 100 mg PO DAILY 07/22/15 Baclofen 10 mg PO QHS PRN 07/23/15 Carbamazepine [Carbamazepine ER] 800 mg PO DAILY 07/23/15 Ciprofloxacin [Cipro] 500 mg PO BID 10/23/17 Quetiapine Fumarate [Seroquel] 300 mg PO QHS 10/23/17 Acetaminophen [Tylenol Tablet] 650 mg PO Q6H PRN PRN tablet 10/26/17 Cephalexin [Keflex] 500 mg PO Q12 #14 cap 10/26/17 Lactobacillus Acidophilus [Acidophilus] 1 tab PO DAILY #30 tab 10/26/17 The following prescriptions were given: Cephalexin [Keflex] 500 mg PO Q12 #14 cap Lactobacillus Acidophilus [Acidophilus] 1 tab PO DAILY #30 tab Primary Care Physician: Harshad Karimi MD [Primary Care Provider] - Please follow up with your Primary Care Physician in: in 3-5 days Proposed Discharge Date: 10/26/17
[2017-10-26] MEDS: Enoxaparin 40 MG/0.4 ML Syringe SC (09:11)
[2017-10-26] MEDS: Docusate Sodium 100 MG Capsule PO (09:12)
[2017-10-26 09:30] VITALS: BP 109/75; PULSE 94; RESP 18; TEMP 37.1; O2SAT 98
[2017-10-27 09:59] LABS: Pathologist Review Reviewed
[2017-10-27 10:07] LABS: Pathologist Review Reviewed
== END 2017-10-26 10:37 | disposition home or self-care (01) | DRG 872 ==
LOC: ED 21:35 → MS3 21:57
PROVIDERS: Admitting Provider Family Medicine; Emergency Provider Emergency Medicine; Family Provider Family Medicine; PCP Family Medicine; Visit Provider Internal Medicine
DX: A41.9 Sepsis, unspecified organism (principal); N39.0 Urinary tract infection, site not specified; Z87.440 Personal history of urinary (tract) infections; Z86.14 Personal history of Methicillin resistant Staphylococcus aureus infection; E66.9 Obesity, unspecified; Z68.32 Body mass index [BMI] 32.0-32.9, adult; G54.6 Phantom limb syndrome with pain; F41.9 Anxiety disorder, unspecified; F32.9 Major depressive disorder, single episode, unspecified; E78.5 Hyperlipidemia, unspecified; Z89.612 Acquired absence of left leg above knee; G40.909 Epilepsy, unspecified, not intractable, without status epilepticus; Z79.899 Other long term (current) drug therapy; E87.6 Hypokalemia; B96.29 Other Escherichia coli [E. coli] as the cause of diseases classified elsewhere
CPT/HCPCS: 36415; 71045; 80048; 80053; 81001; 83605; 83735; 84484; 85025; 85027; 85610; 85730; 87040; 87077; 87086; 87088; 87186; 93005; 97161; 97166; 99285; J7030; J7050; A4216; J0696; J2405

== ENCOUNTER → 2017-11-17 12:46 | Outpatient (CLI) | payer OTHER, SELFPAY ==
[2017-11-17 14:18] LABS: Color, Urine Yellow (Yellow); Glucose, Dipstick Normal (Normal); Ketone-Dipstick Negative (Negative); Leukocyte Esterase-Dipstick 500 /ul (Negative); Nitrite-Dipstick Negative (Negative); Occult Blood-Urine 150 /ul (Negative); Protein-Dipstick 30 mg/dl (Negative); Specific Gravity, Urine 1.015 (1.002-1.030); Urine Bilirubin Dipstick Negative (Negative); Urine Clarity Cloudy (Clear); Urine Urobilinogen Normal (Normal)
[2017-11-17 14:40] LABS: Red Blood Cells-Urine 0-5 SEEN /hpf (0-5); Squamous Epithelial Cells - UA 0-5 SEEN /hpf (5-10); White Blood Cells >100 SEEN /hpf (0-5)
[2017-11-17 14:41] LABS: Bacteria 1+ /hpf (None Seen); Mucous, Urine 1+ /hpf (<or=2+)
[2017-11-17 17:32] LABS: Hematocrit 37.4 % (37-47); Hemoglobin 12.6 g/dl (12.0-15.0); Mean Corp Hgb Conc 33.7 g/gl (32-36); Mean Corpuscular Hgb 30.9 pg (27.0-32.0); Mean Corpuscular Volume 91.7 fL (81-99); Mean Platelet Vol. 10.1 fl (6.2-12.0); Platelet Count 236 K/mm3 (150-450); RBC Distribution Width CV 12.3 % (11.6-14.6); RBC Distribution Width SD 40.5 fl (35.1-43.9); Red Blood Count 4.08 M/mm3 (4.2-5.4); White Blood Count 10.3 K/mm3 (4.4-11.0)
[2017-11-17 17:48] LABS: ALB/GLOB Ratio 0.9 RATIO (0.9-2.4); AST(SGOT) 21 U/L (15-37); Alanine Aminotransfer ALT/SGPT 28 U/L (13-56); Albumin, Serum 3.4 g/dL (3.2-5.0); Alkaline Phosphatase 94 U/L (45-117); Anion Gap 8 (5-15); BUN 7 mg/dL (7-18); BUN/Creat Ratio 11.1 RATIO (10-20); Calcium,Total 8.3 mg/dL (8.5-10.1); Chloride 104 mmol/L (98-107); Creatinine, Serum 0.63 mg/dL (0.55-1.02); EST Glomerular Filtration Rate 105 mL/min (>60); Est Glom Filt Rate - Afr Amer 127 mL/min (>60); Globulin 3.8 g/dL (2.2-4.2); Glucose 91 mg/dL (74-106); Phosphorus 3.1 mg/dL (2.5-4.9); Potassium 3.7 mmol/L (3.5-5.1); Protein, Total 7.2 g/dL (6.4-8.2); Sodium Level 141 mmol/L (136-145)
[2017-11-17 17:52] LABS: Scan Indicated on CBC? Y/N NO
[2017-11-17 18:00] LABS: PTHIN 30.9 pg/mL (18.4-80.1)
[2017-11-17 18:07] LABS: Carbamazepine (Tegretol) 11.3 ug/mL (4.0-12.0)
== END ==
PROVIDERS: Psychiatry & Neurology Neurology; Family Provider Family Medicine; PCP Family Medicine; Visit Provider Family Medicine
DX: D64.9 Anemia, unspecified (principal); R30.0 Dysuria; E83.51 Hypocalcemia; G40.009 Localization-related (focal) (partial) idiopathic epilepsy and epileptic syndromes with seizures of localized onset, not intractable, without status epilepticus
CPT/HCPCS: 36415; 80053; 80156; 81001; 82330; 83970; 84100; 85027; 87086; 87088; 87186

== ENCOUNTER → 2017-12-03 15:39 | Outpatient (CLI) | payer OTHER, SELFPAY ==
[2017-12-03 17:46] LABS: Color, Urine Yellow (Yellow); Glucose, Dipstick Normal (Normal); Ketone-Dipstick Negative (Negative); Leukocyte Esterase-Dipstick 25 /ul (Negative); Nitrite-Dipstick Negative (Negative); Occult Blood-Urine 10 /ul (Negative); Protein-Dipstick 15 mg/dl (Negative); Urine Bilirubin Dipstick Negative (Negative); Urine Clarity Clear (Clear); Urine Urobilinogen Normal (Normal)
[2017-12-03 18:12] LABS: Bacteria RARE /hpf (None Seen); Mucous, Urine 3+ /hpf (<or=2+); Red Blood Cells-Urine 0-5 SEEN /hpf (0-5); Squamous Epithelial Cells - UA 0-5 SEEN /hpf (5-10); White Blood Cells 0-5 SEEN /hpf (0-5)
== END ==
PROVIDERS: Family Provider Family Medicine; PCP Family Medicine; Visit Provider Family Medicine
DX: N39.0 Urinary tract infection, site not specified (principal)
CPT/HCPCS: 81001; 87077; 87086; 87088; 87186

== ENCOUNTER → 2017-12-19 15:42 | Outpatient (CLI) | payer OTHER, SELFPAY ==
--- NOTE | 2017-12-19 15:42 | DT_ITS ---
This patient was seen during an EMR downtime December 15, 2017 - December 22, 2017. This patient may have a combination of paper and electronic documentation or all paper documentation. All documentation is viewable within the e-chart portion of [facility] for each patient visit.
== END ==
PROVIDERS: Family Provider Family Medicine; PCP Family Medicine; Visit Provider Internal Medicine Infectious Disease
DX: A49.8 Other bacterial infections of unspecified site (principal)
CPT/HCPCS: 96372

== ENCOUNTER 2017-12-20 15:50 | Outpatient (CLI) | payer OTHER, SELFPAY ==
--- NOTE | 2017-12-20 15:50 | DT_ITS ---
This patient was seen during an EMR downtime December 15, 2017 - December 22, 2017. This patient may have a combination of paper and electronic documentation or all paper documentation. All documentation is viewable within the e-chart portion of [employer] for each patient visit.
== END 2017-12-20 16:45 | disposition home or self-care (01) ==
LOC: MEDOUTP 12-21 14:24 → MS3 12-21 14:25
PROVIDERS: Family Provider Family Medicine; PCP Family Medicine; Visit Provider Internal Medicine Infectious Disease
DX: A49.8 Other bacterial infections of unspecified site (principal)
CPT/HCPCS: 96372

== ENCOUNTER → 2017-12-21 14:45 | Outpatient (CLI) | payer OTHER, SELFPAY ==
--- NOTE | 2017-12-21 14:45 | DT_ITS ---
This patient was seen during an EMR downtime December 15, 2017 - December 22, 2017. This patient may have a combination of paper and electronic documentation or all paper documentation. All documentation is viewable within the e-chart portion of [employer] for each patient visit.
== END ==
PROVIDERS: Family Provider Family Medicine; PCP Family Medicine; Visit Provider Internal Medicine Infectious Disease
DX: B99.8 Other infectious disease (principal)
CPT/HCPCS: 96372

== ENCOUNTER → 2017-12-22 12:43 | Outpatient (CLI) | payer OTHER, SELFPAY ==
--- NOTE | 2017-12-22 12:43 | DT_ITS ---
This patient was seen during an EMR downtime December 15, 2017 - December 22, 2017. This patient may have a combination of paper and electronic documentation or all paper documentation. All documentation is viewable within the e-chart portion of [employer] for each patient visit.
== END ==
PROVIDERS: Family Provider Family Medicine; PCP Family Medicine; Visit Provider Internal Medicine Infectious Disease
DX: A49.8 Other bacterial infections of unspecified site (principal)
CPT/HCPCS: 96372

== ENCOUNTER → 2017-12-23 13:51 | Outpatient (CLI) | payer OTHER, SELFPAY ==
[2017-12-23] MEDS: Ertapenem Sod 1 GM/10 ML Vial IM (14:23)
[2017-12-23 14:29] VITALS: BP 157/106; PULSE 94; RESP 16; TEMP 36.6; O2SAT 96
== END ==
PROVIDERS: Family Provider Family Medicine; PCP Family Medicine; Visit Provider Internal Medicine Infectious Disease
DX: A49.8 Other bacterial infections of unspecified site (principal)
CPT/HCPCS: 96372

== ENCOUNTER → 2017-12-24 14:32 | Outpatient (CLI) | payer OTHER, SELFPAY ==
[2017-12-24 15:01] VITALS: BP 135/100; PULSE 102; RESP 16; TEMP 36.9; O2SAT 97
[2017-12-24] MEDS: Ertapenem Sod 1 GM/10 ML Vial IM (15:20)
== END ==
PROVIDERS: Family Provider Family Medicine; PCP Family Medicine; Visit Provider Internal Medicine Infectious Disease
DX: A49.8 Other bacterial infections of unspecified site (principal)
CPT/HCPCS: 96372

== ENCOUNTER → 2017-12-25 16:10 | Outpatient (CLI) | payer OTHER, SELFPAY ==
[2017-12-25 16:17] VITALS: BP 144/83; PULSE 84; RESP 16; TEMP 36.8; O2SAT 94; BMI 32.2
[2017-12-25] MEDS: Ertapenem Sod 1 GM/10 ML Vial IM (16:23)
== END ==
PROVIDERS: Family Provider Family Medicine; PCP Family Medicine; Visit Provider Internal Medicine Infectious Disease
DX: A49.8 Other bacterial infections of unspecified site (principal)
CPT/HCPCS: 96372

== ENCOUNTER → 2017-12-26 15:44 | Outpatient (CLI) | payer OTHER, SELFPAY ==
[2017-12-26] MEDS: Ertapenem Sod 1 GM/10 ML Vial IM (15:54)
[2017-12-26 15:58] VITALS: BP 144/97; PULSE 85; RESP 16; TEMP 36.7; BMI 32.1
[2017-12-26 16:26] LABS: Hematocrit 36.5 % (37-47); Hemoglobin 12.5 g/dl (12.0-15.0); Mean Corp Hgb Conc 34.2 g/gl (32-36); Mean Corpuscular Hgb 29.6 pg (27.0-32.0); Mean Corpuscular Volume 86.5 fL (81-99); Mean Platelet Vol. 9.1 fl (6.2-12.0); Platelet Count 249 K/mm3 (150-450); RBC Distribution Width CV 12.1 % (11.6-14.6); RBC Distribution Width SD 38.3 fl (35.1-43.9); Red Blood Count 4.22 M/mm3 (4.2-5.4); White Blood Count 7.7 K/mm3 (4.4-11.0)
[2017-12-26 16:27] LABS: Scan Indicated on CBC? Y/N NO
[2017-12-26 16:53] LABS: AST(SGOT) 19 U/L (15-37); Alanine Aminotransfer ALT/SGPT 26 U/L (13-56); Albumin, Serum 3.8 g/dL (3.2-5.0); Alkaline Phosphatase 120 U/L (45-117); Anion Gap 7 (5-15); BUN 7 mg/dL (7-18); BUN/Creat Ratio 12.1 RATIO (10-20); Calcium,Total 8.1 mg/dL (8.5-10.1); Chloride 95 mmol/L (98-107); Creatinine, Serum 0.58 mg/dL (0.55-1.02); EST Glomerular Filtration Rate 115 mL/min (>60); Est Glom Filt Rate - Afr Amer 140 mL/min (>60); Estimated Creatinine Clearance 92.79 ml/min; Globulin 3.3 g/dL (2.2-4.2); Glucose 116 mg/dL (74-106); Potassium 3.7 mmol/L (3.5-5.1); Protein, Total 7.1 g/dL (6.4-8.2); Sodium Level 129 mmol/L (136-145)
== END ==
PROVIDERS: Family Provider Family Medicine; PCP Family Medicine; Visit Provider Internal Medicine Infectious Disease
DX: A49.8 Other bacterial infections of unspecified site (principal)
CPT/HCPCS: 36415; 80048; 80076; 85027; 96372

== ENCOUNTER 2017-12-27 15:05 | Outpatient (CLI) | payer OTHER, SELFPAY ==
[2017-12-27 16:20] VITALS: BP 165/98; PULSE 115; RESP 20; TEMP 37.5; O2SAT 95
[2017-12-27 16:55] VITALS: BP 159/97; PULSE 107
[2017-12-27] MEDS: Ertapenem Sod 1 GM/10 ML Vial IM (16:57)
== END 2017-12-27 17:03 | disposition home or self-care (01) ==
LOC: MEDOUTP 15:06 → MS3 15:06
PROVIDERS: Family Provider Family Medicine; PCP Family Medicine; Visit Provider Internal Medicine Infectious Disease
DX: A49.8 Other bacterial infections of unspecified site (principal)
CPT/HCPCS: 96372

== ENCOUNTER 2017-12-28 14:46 | Outpatient (CLI) | payer OTHER, SELFPAY ==
[2017-12-28 15:12] VITALS: BP 165/99; PULSE 89; RESP 18; TEMP 37.2; O2SAT 98
[2017-12-28] MEDS: Ertapenem Sod 1 GM/10 ML Vial IM (15:14)
== END 2017-12-28 15:16 | disposition home or self-care (01) ==
LOC: MEDOUTP 14:46 → MS3 14:47
PROVIDERS: Family Provider Family Medicine; PCP Family Medicine; Visit Provider Internal Medicine Infectious Disease
DX: B99.8 Other infectious disease (principal)
CPT/HCPCS: 96372

== ENCOUNTER → 2018-01-16 14:21 | Outpatient (CLI) | payer OTHER, SELFPAY | PROVIDERS: Family Provider Family Medicine; PCP Family Medicine; Visit Provider Family Medicine | DX: N39.0 Urinary tract infection, site not specified (principal) | CPT/HCPCS: 87086; 87088; 87186 ==

== ENCOUNTER → 2018-04-28 13:30 | Outpatient (CLI) | payer OTHER, SELFPAY ==
[2018-04-28 13:35] LABS: Mucous, Urine 0 SEEN /hpf (<or=2+)
[2018-04-28 15:36] LABS: Color, Urine Yellow (Yellow); Glucose, Dipstick Normal (Normal); Ketone-Dipstick Negative (Negative); Leukocyte Esterase-Dipstick Negative /ul (Negative); Nitrite-Dipstick Negative (Negative); Occult Blood-Urine Negative /ul (Negative); Protein-Dipstick 30 mg/dl (Negative); Urine Bilirubin Dipstick Negative (Negative); Urine Clarity Sl. Cloudy (Clear); Urine Urobilinogen Normal (Normal)
[2018-04-28 15:45] LABS: Bacteria 1+ /hpf (None Seen); Red Blood Cells-Urine 0-5 SEEN /hpf (0-5); Squamous Epithelial Cells - UA 0-5 SEEN /hpf (5-10); White Blood Cells 0-5 SEEN /hpf (0-5)
[2018-04-28 15:46] LABS: Cholesterol 256 mg/dL (200); Glucose 91 mg/dL (74-106); High Density Lipoprotein 42 mg/dL; Thyroid Stim Hormone (TSH) 2.97 uIU/mL (0.358-3.74); Triglycerides 180 mg/dL; Very Low Density Lipoprotein 36 mg/dL (5-40); Vitamin D,25 Hydroxy 19.5 ng/mL (29.95-100.01)
== END ==
PROVIDERS: Family Provider Family Medicine; PCP Family Medicine; Referring Provider Family Medicine; Visit Provider Family Medicine
DX: E55.9 Vitamin D deficiency, unspecified (principal); R30.0 Dysuria; Z13.1 Encounter for screening for diabetes mellitus; Z13.29 Encounter for screening for other suspected endocrine disorder; Z13.220 Encounter for screening for lipoid disorders
CPT/HCPCS: 36415; 80061; 81001; 82306; 82947; 84443; 87086; 87088; 87186

== ENCOUNTER → 2018-05-14 11:32 | Outpatient (CLI) | payer OTHER, SELFPAY ==
[2018-05-14 11:34] LABS: Mucous, Urine 0 SEEN /hpf (<or=2+)
[2018-05-14 14:21] LABS: Color, Urine Yellow (Yellow); Glucose, Dipstick Normal (Normal); Ketone-Dipstick Negative (Negative); Leukocyte Esterase-Dipstick 100 /ul (Negative); Nitrite-Dipstick Negative (Negative); Occult Blood-Urine 10 /ul (Negative); Protein-Dipstick Negative (Negative); Specific Gravity, Urine 1.015 (1.002-1.030); Urine Bilirubin Dipstick Negative (Negative); Urine Clarity Sl. Cloudy (Clear); Urine Urobilinogen Normal (Normal)
[2018-05-14 14:27] LABS: Bacteria 1+ /hpf (None Seen); Red Blood Cells-Urine 0-5 SEEN /hpf (0-5); Squamous Epithelial Cells - UA 0-5 SEEN /hpf (5-10); White Blood Cells 10-25 SEEN /hpf (0-5)
== END ==
PROVIDERS: Family Provider Family Medicine; PCP Family Medicine; Visit Provider Family Medicine
DX: R30.0 Dysuria (principal)
CPT/HCPCS: 81001; 87077; 87086; 87088; 87186

== ENCOUNTER 2018-05-20 16:22 | Inpatient (IN) | payer OTHER, SELFPAY ==
[2018-05-20 16:24] VITALS: BP 164/97; PULSE 81; RESP 18; TEMP 37.1; O2SAT 98; BMI 32.2
--- NOTE | 2018-05-20 17:56 | PCM.HP.STD ---
Problem List (1) UTI (urinary tract infection) Status: Acute Qualifiers: Urinary tract infection type: acute cystitis Comment: E. Coli and Enterococcus (2) Anxiety and depression Status: Chronic (3) Chronic pain syndrome Status: Chronic (4) Hyperlipidemia Status: Chronic Qualifiers: Hyperlipidemia type: unspecified (5) Obesity (BMI 30.0-34.9) Status: Chronic (6) Phantom limb syndrome Status: Chronic (7) S/P unilateral above knee amputation Status: Chronic (8) Seizure disorder Status: Chronic History of Present Illness Date of Admission: 05/20/18 Chief Complaint: Dysuria, frequency, fever, suprapubic pain The patient is a 53 y/o F w/ PMHx: Complex partial seizure disorder, Hyperlipidemia, Chronic Pain Syndrome w/ Phantom Limb Syndrome, Anxiety and Depression, Obesity, Hx MRSA Infection LLE s/p amputation, Frequent UTIs who presents to the [facility] ED on 05/20/18 with history of dx E. Coli UTI mid-April w/ treatment at that time w/ 7 day course kelflex with initially improvement but then return of symptoms w/ repeat UCx obtained and in the interim treated with now 8/10 days augmentin w/ UCx return E. Coli with new resistance patterns in addition to enterococcus referred to the ED secondary to severity of resistance patterns with no oral option noted per PCP. Upon ED presentation she notes she had return tenderness, dysuria, nausea, poor appetite, fever up to 103 at home on day of ED presentation. In the ED work-up included T 98.7, heart rate 81, BP 164/797, respiratory rate 18, 98% on room air, pending CBC with differential and BMP ordered per ER but not resulted upon evaluation of patient. Patient improved appearance from prior admissions, [id number]. Discussed patient presentation with infectious disease physician who is familiar with her and given sensitivity patterns although I do suspect possibly E. coli colonization given symptomatic plans initiation of meropenem for both organisms which was also relayed to the ED physician to be initiated in the emergency room as well. Past Medical History Past Medical History (Chronic Problems): Chronic Problems Chronic pain syndrome (Chronic) Anxiety and depression (Chronic) Obesity (BMI 30.0-34.9) (Chronic) Seizure disorder (Chronic) Obesity (Chronic) S/P unilateral above knee amputation (Chronic) Hyperlipidemia (Chronic) Phantom limb syndrome (Chronic) Right sided weakness (Chronic) Cephalgia (Chronic) Allergies metoclopramide HCl [From Reglan] Allergy (Verified 05/20/18 16:24) Other SHAKING prochlorperazine edisylate [From Compazine] Allergy (Verified 05/20/18 16:24) Hives prochlorperazine maleate [From Compazine] Allergy (Verified 05/20/18 16:24) Hives promethazine HCl [From Phenergan] Allergy (Verified 05/20/18 16:24) Hives Home Medications: Ambulatory Orders Medication Instructions Recorded Buprenorphine HCl 8 mg SL 4X/DAY 02/05/14 Duloxetine Hcl [Cymbalta] 60 mg PO DAILY 02/05/14 FA/Mv,Ca,Iron,Min/Lycopene/Lut 1 each PO DAILY 02/05/14 [Centravites Tablet] Pregabalin [Lyrica] 150 mg PO TID 02/05/14 Docusate Sodium [Colace] 100 mg PO DAILY 07/22/15 Baclofen 10 mg PO QHS PRN 07/23/15 Carbamazepine [Carbamazepine ER] 800 mg PO DAILY 07/23/15 Ciprofloxacin [Cipro] 500 mg PO BID 10/23/17 Quetiapine Fumarate [Seroquel] 300 mg PO QHS 10/23/17 Acetaminophen [Tylenol Tablet] 650 mg PO Q6H PRN PRN tablet 10/26/17 Cephalexin [Keflex] 500 mg PO Q12 #14 cap 10/26/17 Lactobacillus Acidophilus 1 tab PO DAILY #30 tab 10/26/17 [Acidophilus] Surgical History: appendectomy, cholecystectomy, hysterectomy, - - LLE amputation s/p MRSA infection, Carpal tunnel surgery. 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, Depression BREASTER History: No pertinent BREASTER history Lives: Spouse/ Significant Other Smoking Status: Never smoker Tobacco Use: Non-smoker Alcohol: None Drugs: None - *Family History Maternal History Items: Hypertension Paternal History Items: Heart Disease - Father w/ first CO 40s., Hypertension Review of Systems Constitutional: Reports: Anorexia, Fever, Malaise, Weakness, Fatigue. Denies: Chills, Weight Change HEENT: Denies: Head Aches, Sinus Congestion, Sinus Drainage Cardiovascular: Denies: Chest Pain, Palpitations Respiratory: Denies: Cough, Shortness of breath at rest, Sputum production Gastrointestinal: Reports: Abdominal Pain, Nausea. Denies: Vomiting Genitourinary: Denies: Dysuria Musculoskeletal: Reports: Leg Pain, Muscle pain. Denies: Joint Pain, Joint Tenderness Skin: Denies: Rash, Wounds Neurological: Denies: Numbness, Tingling, Focal weakness Psychiatric: Denies: Anxiety, Depression, Homicidal Ideations, Suicidal Ideations Hematologic/ Lymphatic: Denies: Easy Bruising, Easy Bleeding VTE Information - Inpt Only VTE Present on Admission: No VTE Mechan Device Prophylaxis: SCD's VTE Pharm Prophylaxis ordered?: Yes Subjective: Seated upright in the ED bed, NAD, reviewed plan of care, less ill appearing than prior presentations. Objective: Physical Examination: General: awake, alert, oriented x 3 and cooperative, seated upright in the ED bed in no apparent distress. Skin: normal color, turgor, no icterus, cyanosis. HEENT: AT/NC, EOMI, PERRLA, mildly dry MM, no carotid bruits or JVD noted. Lungs: CTA bilaterally, moderate effort, mild decrease BL bases, no rales, ronchi or wheezing. Heart: Regular rate and rhythm; no gallop, rub audible. Abdomen: soft, obese, moderate suprapubic TTP, mild flank discomfort, ND, normal BS, no HSM. Extremities: no cyanosis, clubbing, s/p LLE AKA amputation. Neurological: patient awake, alert, oriented x 3; cognitive function intact; pupils equally reactive to light and accomodation; cranial nerves II-XII grossly normal, moving all 3 extremities, no focal deficits, strength moderately globally decreased secondary to acute presentation. Psychiatric: affect appears normal, no acute evidence of depressive or anxiety feelings. - Physical Exam Vital Signs Temp Pulse Resp BP Pulse Ox 98.7 F 81 18 164/97 H 98 05/20/18 16:24 05/20/18 16:24 05/20/18 16:24 05/20/18 16:24 05/20/18 16:24 Oxygen Delivery Method Room Air Weight: 182 lb Body Mass Index (BMI) 32.2 Assessment/Plan All Active Problems UTI (urinary tract infection) (Acute) Sepsis (Acute) The patient is a 53 y/o F w/ PMHx: Complex partial seizure disorder, Hyperlipidemia, Chronic Pain Syndrome w/ Phantom Limb Syndrome, Anxiety and Depression, Obesity, Hx MRSA Infection LLE s/p amputation, Frequent UTIs who presents to the [facility] ED on 05/20/18 with history of dx E. Coli UTI mid-April w/ treatment at that time w/ 7 day course kelflex with initially improvement but then return of symptoms w/ repeat UCx obtained and in the interim treated with now 8/10 days augmentin w/ UCx return E. Coli with new resistance patterns in addition to enterococcus referred to the ED secondary to severity of resistance patterns with no oral option noted per PCP. Upon ED presentation she notes she had return tenderness, dysuria, nausea, poor appetite, fever up to 103. (1) Acute Complicated E. Coli and Enteroccal Urinary Tract Infection, Failed Outpatient Abx Therapies: Will admit to [facility], UA, UCx already obtained from outpatient and administered abx in ED prior to ability to obtain repeat, admission CBC, BMP pending upon requested evaluation of patient, continue 500 mg IV q 8 meropenem per discussion with ID, ID consulted and will see in AM, will repeat CBC, BMP in AM, maintain on IVFs given recent decreased intake, PRN pain/nausea regimen. PT, OT consultations. (2) Phantom limb pain syndrome: Will continue home subutex or equivalent regimen per pharmacy, lyrica and baclofen home regimen. (3) Complex partial seizure history: Continue home carbemazepine regimen. (4) Obesity: Weight loss and lifestyle changes encouraged. (5) Anxiety and Depression: Maintain on home cymbalta, seroquel regimen. (6) Hyperlipidemia: Not on regimen, noted history. (7) DVT prophylaxis: SCDs, lovenox. Code Visit Inpatient E&M: 18451 Init Hosp L3
--- NOTE | 2018-05-20 18:01 | HP.PCM_ITS ---
Problem List (1) UTI (urinary tract infection) Status: Acute Qualifiers: Urinary tract infection type: acute cystitis Comment: E. Coli and Enterococcus (2) Anxiety and depression Status: Chronic (3) Chronic pain syndrome Status: Chronic (4) Hyperlipidemia Status: Chronic Qualifiers: Hyperlipidemia type: unspecified (5) Obesity (BMI 30.0-34.9) Status: Chronic (6) Phantom limb syndrome Status: Chronic (7) S/P unilateral above knee amputation Status: Chronic (8) Seizure disorder Status: Chronic History of Present Illness Date of Admission: 05/20/18 Chief Complaint: Dysuria, frequency, fever, suprapubic pain The patient is a 53 y/o F w/ PMHx: Complex partial seizure disorder, Hy perlipidemia, Chronic Pain Syndrome w/ Phantom Limb Syndrome, Anxiety and Depression, Obesity, Hx MRSA Infection LLE s/p amputation, Frequent UTIs who presents to the [facility] ED on 05/20/18 with history of dx E. Coli UTI mid-April w/ treatment at that time w/ 7 day course kelflex with initially improvement but then return of symptoms w/ repeat UCx obtained and in the interim treated with now 8/10 days augmentin w/ UCx return E. Coli with new resistance patterns in addition to enterococcus referred to the ED secondary to severity of resistance patterns with no oral option noted per PCP. Upon ED presentation she notes she had return tenderness, dysuria, nausea, poor appetite, fever up to 103 at home on day of ED presentation. In the ED work-up included T 98.7, heart rate 81, BP 164/797, respiratory rate 18, 98% on room air, pending CBC with differential and BMP ordered per ER but not resulted upon evaluation of patient. Patient improved appearance from prior admissions, [id number]. Discussed patient presentation with infectious disease physician who is familiar with her and given sensitivity patterns although I do suspect possibly E. coli colonization given symptomatic plans initiation of meropenem for both organisms which was also relayed to the ED physician to be initiated in the emergency room as well. Past Medical History Past Medical History (Chronic Problems): Chronic Problems Chronic pain syndrome (Chronic) Anxiety and depression (Chronic) Obesity (BMI 30.0-34.9) (Chronic) Seizure disorder (Chronic) Obesity (Chronic) S/P unilateral above knee amputation (Chronic) Hyperlipidemia (Chronic) Phantom limb syndrome (Chronic) Right sided weakness (Chronic) Cephalgia (Chronic) Allergies metoclopramide HCl [From Reglan] Allergy (Verified 05/20/18 16:24) Other SHAKING prochlorperazine edisylate [From Compazine] Allergy (Verified 05/20/18 16:24) Hives prochlorperazine maleate [From Compazine] Allergy (Verified 05/20/18 16:24) Hives promethazine HCl [From Phenergan] Allergy (Verified 05/20/18 16:24) Hives Home Medications: Ambulatory Orders Medication Instructions Recorded Buprenorphine HCl 8 mg SL 4X/DAY 02/05/14 Duloxetine Hcl [Cymbalta] 60 mg PO DAILY 02/05/14 FA/Mv,Ca,Iron,Min/Lycopene/Lut 1 each PO DAILY 02/05/14 [Centravites Tablet] Pregabalin [Lyrica] 150 mg PO TID 02/05/14 Docusate Sodium [Colace] 100 mg PO DAILY 07/22/15 Baclofen 10 mg PO QHS PRN 07/23/15 Carbamazepine [Carbamazepine ER] 800 mg PO DAILY 07/23/15 Ciprofloxacin [Cipro] 500 mg PO BID 10/23/17 Quetiapine Fumarate [Seroquel] 300 mg PO QHS 10/23/17 Acetaminophen [Tylenol Tablet] 650 mg PO Q6H PRN PRN tablet 10/26/17 Cephalexin [Keflex] 500 mg PO Q12 #14 cap 10/26/17 Lactobacillus Acidophilus 1 tab PO DAILY #30 tab 10/26/17 [Acidophilus] Surgical History: appendectomy, cholecystectomy, hysterectomy, - - LLE amp utation s/p MRSA infection, Carpal tunnel surgery. 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 Denies: Chills, Weight Change HEENT: Denies: Head Aches, Sinus Congestion, Sinus Drainage Cardiovascular: Denies: Chest Pain, Palpitations Respiratory: Denies: Cough, Shortness of breath at rest, Sputum production Gastrointestinal: Reports: Abdominal Pain, Nausea. Denies: Vomiting Genitourinary: Denies: Dysuria Musculoskeletal: Reports: Leg Pain, Muscle pain. Denies: Joint Pain, Joint Tenderness Skin: Denies: Rash, Wounds Neurological: Denies: Numbness, Tingling, Focal weakness Psychiatric: Denies: Anxiety, Depression, Homicidal Ideations, Suicidal Ideations Hematologic/ Lymphatic: Denies: Easy Bruising, Easy Bleeding VTE Information - Inpt Only VTE Present on Admission: No VTE Mechan Device Prophylaxis: SCD's VTE Pharm Prophylaxis ordered?: Yes Subjective: Seated upright in the ED bed, NAD, reviewed plan of care, less ill appearing than prior presentations. Objective: Physical Examination: General: awake, alert, oriented x 3 and cooperative, seated upright in the ED bed in no apparent distress. Skin: normal color, turgor, no icterus, cyanosis. HEENT: AT/NC, EOMI, PERRLA, mildly dry MM, no carotid bruits or JVD noted. Lungs: CTA bilaterally, moderate effort, mild decrease BL bases, no rales, ronchi or wheezing. Heart: Regular rate and rhythm; no gallop, rub audible. Abdomen: soft, obese, moderate suprapubic TTP, mild flank discomfort, ND, normal BS, no HSM. Extremities: no cyanosis, clubbing, s/p LLE AKA amputation. Neurological: patient awake, alert, oriented x 3; cognitive function intact; pupils equally reactive to light and accomodation; cranial nerves II-XII grossly normal, moving all 3 extremities, no focal deficits, strength moderately globally decreased secondary to acute presentation. Psychiatric: affect appears normal, no acute evidence of depressive or anxiety feelings. - Physical Exam Vital Signs Temp Pulse Resp BP Pulse Ox 98.7 F 81 18 164/97 H 98 05/20/18 16:24 05/20/18 16:24 05/20/18 16:24 05/20/18 16:24 05/20/18 16:24 Oxygen Delivery Method Room Air Weight: 182 lb Body Mass Index (BMI) 32.2 Assessment/Plan All Active Problems UTI (urinary tract infection) (Acute) Sepsis (Acute) The patient is a 53 y/o F w/ PMHx: Complex partial seizure disorder, Hyperlipidemia, Chronic Pain Syndrome w/ Phantom Limb Syndrome, Anxiety and Depression, Obesity, Hx MRSA Infection LLE s/p amputation, Frequent UTIs who presents to the [facility] ED on 05/20/18 with history of dx E. Coli UTI mid-April w/ treatment at that time w/ 7 day course kelflex with initially improvement but then return of symptoms w/ repeat UCx obtained and in the interim treated with now 8/10 days augmentin w/ UCx return E. Coli with new resistance patterns in addition to enterococcus referred to the ED secondary to severity of resistance patterns with no oral option noted per PCP. Upon ED presentation she notes she had return tenderness, dysuria, nausea, poor appetite, fever up to 103. (1) Acute Complicated E. Coli and Enteroccal Urinary Tract Infection, Failed Outpatient Abx Therapies: Will admit to MS, UA, UCx already obtained from outpatient and administered abx in ED prior to ability to obtain repeat, admission CBC, BMP pending upon requested evaluation of patient, continue 500 mg IV q 8 meropenem per discussion with ID, ID consulted and will see in AM, will repeat CBC, BMP in AM, maintain on IVFs given recent decreased intake, PRN fatuma n/nausea regimen. PT, OT consultations. (2) Phantom limb pain syndrome: Will continue home subutex or equivalent regimen per pharmacy, lyrica and baclofen home regimen. (3) Complex partial seizure history: Continue home carbemazepine regimen. (4) Obesity: Weight loss and lifestyle changes encouraged. (5) Anxiety and Depression: Maintain on home cymbalta, seroquel regimen. (6) Hyperlipidemia: Not on regimen, noted history. (7) DVT prophylaxis: SCDs, lovenox. Code Visit Inpatient E&M: 25005 Init Hosp L3
[2018-05-20 18:48] VITALS: BMI 32.6; BMI 32.7
[2018-05-20 18:51] LABS: Absolute Lymphocyte Count 2.82 X10^3/ul (0.83-4.51); Absolute Neutrophil Count 5.1 X10^3/uL (2.0-7.7); Basophil# 0.05 X10^3/uL; Basophil% 0.5 % (0-1); Eosinophil# 0.21 X10^3/uL; Eosinophils% 2.3 % (0-5); Hematocrit 36.5 % (37-47); Hemoglobin 12.6 g/dl (12.0-15.0); Lymphocyte # 2.82 X10^3/ul (4.0); Mean Corp Hgb Conc 34.5 g/gl (32-36); Mean Corpuscular Hgb 30.1 pg (27.0-32.0); Mean Corpuscular Volume 87.1 fL (81-99); Mean Platelet Vol. 9.1 fl (6.2-12.0); Monocyte# 0.87 X10^3/uL; Monocyte% 9.5 % (0-10); Neutrophil # 5.14 X10^3/uL (2.7-7.7); Neutrophil % 56.5 % (47-70); Platelet Count 255 K/mm3 (150-450); RBC Distribution Width CV 12.2 % (11.6-14.6); RBC Distribution Width SD 39.1 fl (35.1-43.9); Red Blood Count 4.19 M/mm3 (4.2-5.4); White Blood Count 9.1 K/mm3 (4.4-11.0)
[2018-05-20 18:52] LABS: POSITIVE COUNT NO; POSITIVE DIFFERENTIAL NO; POSITIVE MORPHOLOGY NO
[2018-05-20] MEDS: Ondansetron 4 MG/2 ML Vial IV (19:04)
[2018-05-20 19:17] LABS: Anion Gap 8 (5-15); BUN 7 mg/dL (7-18); BUN/Creat Ratio 13.9 RATIO (10-20); Calcium,Total 8.6 mg/dL (8.5-10.1); Chloride 93 mmol/L (98-107); EST Glomerular Filtration Rate 136 mL/min (>60); Est Glom Filt Rate - Afr Amer 165 mL/min (>60); Glucose 84 mg/dL (74-106); Potassium 4.2 mmol/L (3.5-5.1); Sodium Level 128 mmol/L (136-145)
--- NOTE | 2018-05-20 19:17 | ED.DCSUM_ITS ---
- ER Visit Summary Date of Service: 05/20/18 Chief Complaint: Urinary symptoms that have not improved. History of Present Illness: The patient is a 53 F who has history of recurrent urinary tract infection. She is pleasant Augmentin. Urine culture sensitivities were performed and she grew E. coli and enterococcus. She reports temperature 101.0?F today. She also complained of chills. She denied any URI, ocular, visual auditory symptoms. She denied cardiac symptoms. She did report nausea without vomiting diarrhea. She does complain of urinary symptoms. She does report low back pain. Please read written note for complete detail Physical Examination: Patient's vitals noted. Blood pressure is elevated 164/92. She is not febrile in the department; however, she did take antipyretics prior to arrival. Head is atraumatic normocephalic. Pupils are equal round reactive. Extraocular muscles are intact. TMs are pearly white with landmarks noted. Nares patent with no drainage. Posterior pharynx without erythema or exudate. Uvula is midline. There is no dysphonia or dysphasia. Trachea is midline. There is no stridor with auscultation of the neck. Heart is regular without murmur, gallop or rub. S1 and S2 are normal. Lungs are clear to auscultation with good movement of air bilaterally. Abdomen is soft nontender. There is no CVA tenderness noted. Amputation at the hip left side. No dermatologic lesions noted. Neuro exam is nonfocal. Test Results: CBC is unremarkable. Emergency Department Course and Treatment: Based on sensitivities gentamicin was ordered. I was informed that the enterococcus was not sent to gentamicin. It is used as synergistic antibiotic for endocarditis. Therefore patient will receive 500 mg of meropenem. Treatment Plan: Admission to medical surgical floor for failed outpatient therapy and need for IV antibiotics Disposition: Medical surgical unit Impression: Urinary tract infection failed outpatient therapy This note was generated with [employer] dictation software. It may contain incorrect words, spelling, and punctuation that were not noted in review of the chart prior to signing ED Disposition - Plan for ED Patient: Chief Complaint: Complaint
[2018-05-20 19:58] VITALS: BP 149/93; PULSE 107; RESP 16; TEMP 37.2; O2SAT 96
[2018-05-20] MEDS: 0.9% Normal Saline 1,000 ML 100 ML IV (20:00)
[2018-05-20] MEDS: BUPRENORPHINE HCL 8 MG TAB.SUBL SL (21:50)
[2018-05-20] MEDS: QUEtiapine 100 MG Tablet 150 MG PO ×2 (21:50→23:20)
[2018-05-20] MEDS: Pregabalin 75 MG Capsule 150 MG PO (23:23)
[2018-05-21 02:00] VITALS: BP 112/71; PULSE 73; RESP 16; TEMP 37.2; O2SAT 97
[2018-05-21] MEDS: BUPRENORPHINE HCL 8 MG TAB.SUBL SL ×5 (02:32→17:59)
[2018-05-21] MEDS: Pregabalin 75 MG Capsule 150 MG PO ×3 (05:44→22:38)
[2018-05-21] MEDS: Ondansetron 4 MG/2 ML Vial IV (05:44)
[2018-05-21 06:05] LABS: Anion Gap 7 (5-15); BUN 10 mg/dL (7-18); BUN/Creat Ratio 20.9 RATIO (10-20); Chloride 97 mmol/L (98-107); Creatinine, Serum 0.48 mg/dL (0.55-1.02); EST Glomerular Filtration Rate 144 mL/min (>60); Est Glom Filt Rate - Afr Amer 174 mL/min (>60); Estimated Creatinine Clearance 110.83 ml/min; Glucose 92 mg/dL (74-106); Potassium 3.9 mmol/L (3.5-5.1); Sodium Level 134 mmol/L (136-145)
[2018-05-21 06:10] LABS: Absolute Lymphocyte Count 2.89 X10^3/ul (0.83-4.51); Absolute Neutrophil Count 3.6 X10^3/uL (2.0-7.7); Basophil# 0.05 X10^3/uL; Basophil% 0.7 % (0-1); Eosinophil# 0.26 X10^3/uL; Eosinophils% 3.4 % (0-5); Hemoglobin 11.7 g/dl (12.0-15.0); Lymphocyte # 2.89 X10^3/ul (4.0); Lymphocyte % 38.1 % (19-41); Mean Corp Hgb Conc 34.4 g/gl (32-36); Mean Corpuscular Hgb 30.9 pg (27.0-32.0); Mean Corpuscular Volume 89.7 fL (81-99); Mean Platelet Vol. 9.8 fl (6.2-12.0); Monocyte# 0.73 X10^3/uL; Monocyte% 9.6 % (0-10); Neutrophil # 3.63 X10^3/uL (2.7-7.7); Neutrophil % 47.9 % (47-70); Platelet Count 245 K/mm3 (150-450); RBC Distribution Width CV 12.1 % (11.6-14.6); RBC Distribution Width SD 38.3 fl (35.1-43.9); Red Blood Count 3.79 M/mm3 (4.2-5.4); White Blood Count 7.6 K/mm3 (4.4-11.0)
[2018-05-21 06:33] LABS: POSITIVE COUNT NO; POSITIVE DIFFERENTIAL NO; POSITIVE MORPHOLOGY NO
[2018-05-21 08:00] VITALS: BP 106/55; PULSE 78; RESP 16; TEMP 36.4; O2SAT 97
--- NOTE | 2018-05-21 08:35 | PN_ITS ---
Subjective: Patient is a 53-year-old lady who presented with suprapubic pain and assessment of acute complicated UTI was made admitted to regular nursing floor for subsequent management Patient seen complains of feeling tired. Repeat urinalysis, urine culture and blood culture sent. Objective: GENERAL: cooperative HEENT: Atraumatic; moist oral mucosa EYES; Anicteric, Normal Conjunctiva NECK; supple, normal thyroid, no distended JVD. RESPIRATORY: Diminished to auscultation bilaterally, CARDIOVASCULAR: Regular S1 S2, no audible murmurs GI: soft, non-tender, normoactive bowel sounds, : No Renal angle tenderness; EXTREMITIES: Left AKA MUSCULOSKELETAL: No Joint Tenderness; no muscle waisting NEURO: Awake; no lateralizing signs. SKIN: No Rash PSYCH; Normal affect Vitals/I&O's: Vital Signs Temp Pulse Resp BP Pulse Ox 97.6 F L 78 16 106/55 L 97 05/21/18 08:00 05/21/18 08:00 05/21/18 08:00 05/21/18 08:00 05/21/18 08:00 Oxygen Delivery Method Room Air Weight: 83.7 kg Body Mass Index (BMI) 32.6 Intake and Output for Last 24 Hours 05/19/18 05/20/18 05/21/18 23:59 23:59 23:59 Intake Total 732 / 732 Balance 732 / 732 Laboratory Results 05/20/18 18:40: WBC 9.1, RBC 4.19 L, Hgb 12.6, Hct 36.5 L, MCV 87.1, MCH 30.1, MCHC 34.5, RDW 12.2, RDW Differential 39.1, Plt Count 255, MPV 9.1, Immature Gran % (Auto) 0.200, Neut % (Auto) 56.5, Lymph % (Auto) 31.0, [place] % (Auto) 9.5, Eos % (Auto) 2.3, Baso % (Auto) 0.5, Absolute Neuts (auto) 5.1, Absolute Lymphs (auto) 2.82, Total Counted Not Reportable 05/20/18 18:40: Sodium 128 L, Potassium 4.2, Chloride 93 L, Carbon Dioxide 27.0, Anion Gap 8, BUN 7, Creatinine 0.50 L, Estim Creat Clear Calc 106.40, Est GFR (MDRD) Af Amer 165, Est GFR (MDRD) Non-Af 136, BUN/Creatinine Ratio 13.9, Glucose 84, Calcium 8.6 05/21/18 05:32: WBC 7.6, RBC 3.79 L, Hgb 11.7 L, Hct 34.0 L, MCV 89.7, MCH 30.9, MCHC 34.4, RDW 12.1, RDW Differential 38.3, Plt Count 245, MPV 9.8, Immature Gran % (Auto) 0.300, Neut % (Auto) 47.9, Lymph % (Auto) 38.1, [place] % (Auto) 9.6, Eos % (Auto) 3.4, Baso % (Auto) 0.7, Absolute Neuts (auto) 3.6, Absolute Lymphs (auto) 2.89, Total Counted Not Reportable 05/21/18 05:32: Sodium 134 L, Potassium 3.9, Chloride 97 L, Carbon Dioxide 30.0, Anion Gap 7, BUN 10, Creatinine 0.48 L, Estim Creat Clear Calc 110.83, Est GFR (MDRD) Af Amer 174, Est GFR (MDRD) Non-Af 144, BUN/Creatinine Ratio 20.9 H, Glucose 92, Calcium 8.0 L Current Medications Acetaminophen (Tylenol) 650 mg PO Q6H PRN PRN PRN Reason: Mild Pain (scale 0-3)/T>100.7 Al Hydroxide/Mg Hydroxide (Mylanta Ii) 30 ml PO Q6H PRN PRN PRN Reason: Gastric burning Ascorbic Acid (Vitamin C) 1,000 mg PO DAILY [facility] Aspirin (Ecotrin) 81 mg PO DAILY [facility] Baclofen (Lioresal) 10 mg PO QHS PRN PRN PRN Reason: MUSCLE SPASM Buprenorphine HCl (Buprenorphine Hcl) 8 mg SL 4X/DAY [facility] Last Admin: 05/21/18 02:32 Dose: 8 mg Carbamazepine (Tegretol) 400 mg PO Q12H PRN PRN PRN Reason: SIEZURES Docusate Sodium (Colace) 100 mg PO DAILY [facility] Duloxetine HCl (Cymbalta) 60 mg PO DAILY [facility] Enoxaparin Sodium (Lovenox) 40 mg SC DAILY@1000 TABBY Sodium Chloride () 1,000 mls @ 100 mls/hr IV .Q10H [facility] Last Admin: 05/20/18 20:00 Dose: 100 mls/hr Meropenem 500 mg/ Sodium (Chloride) 60 mls @ 100 mls/hr IV Q8 [facility] Last Admin: 05/21/18 05:35 Dose: 100 mls/hr Magnesium Hydroxide (Milk Of Magnesia) 30 ml PO DAILY PRN PRN PRN Reason: Constipation Morphine Sulfate () 2 - 4 mg IV Q3H PRN PRN PRN Reason: Severe Pain (pain scale 6-10) Morphine Sulfate () 1 - 2 mg IV Q4H PRN PRN PRN Reason: Moderate Pain (pain scale 4-5) Ondansetron HCl (Zofran) 4 mg IV Q8H PRN PRN PRN Reason: NAUSEA Last Admin: 05/21/18 05:44 Dose: 4 mg Oxycodone HCl (Oxyir) 5 mg PO Q4H PRN PRN PRN Reason: Moderate Pain (pain scale 4-5) Pregabalin (Lyrica) 150 mg PO TID [facility] Last Admin: 05/21/18 05:44 Dose: 150 mg Quetiapine Fumarate (Seroquel) 150 mg PO BID [facility] Last Admin: 05/20/18 23:20 Dose: 150 mg Sodium Chloride () 5 - 30 ml IV UD PRN PRN Reason: SALINE FLUSH Medical Necessity - Tobacco Use Smoking Status: Never smoker Tobacco Use: Non-smoker Assessment/Plan All Active Problems UTI (urinary tract infection) (Acute) Sepsis (Acute) Patient is a 53-year-old lady who presented with suprapubic pain and assessment of acute complicated UTI was made admitted to regular nursing floor for subsequent management 1. Acute complicated UTI patient recent urine cultures obtained on 05/14/2018 demonstrated ESBL producing E. coli as well as enterococcus. Patient was started on meropenem on admission. Consultation was placed to ID subsequent antibiotic management deferred to infectious disease 2. 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 History of complex partial seizure patient is carbamazepine did continue 4. Chronic pain syndrome 5. Dyslipidemia managed with diet 6. Depression with anxiety; patient is on Seroquel and Cymbalta 7. DVT prophylaxis SC Lovenox Code Visit Inpatient E&M: 51175 [facility] Hosp L3
--- NOTE | 2018-05-21 09:22 | US_ITS ---
STUDY: RENAL ULTRASOUND - COMPLETE REASON FOR EXAM: Female, 53 years old. Recurrent UTIs. Flank pain. TECHNIQUE: Ultrasound evaluation of the kidneys was performed with real-time and static argueta-scale imaging. COMPARISON: CT of the abdomen and pelvis, October 22, 2017. Renal ultrasound, March 04, 2013. FINDINGS: RIGHT KIDNEY: Normal location of the right kidney, which is normal in size. The right kidney measures 11.5 cm. There is a normal cortex of the right kidney. The renal cortex measures 1.8 cm. There is no right renal mass or cyst. There are no right renal calculi. There is no right hydronephrosis. DISTAL RIGHT URETER: There is non-visualization of the distal right ureter. There is no demonstrated right ureterovesical junction calculus. There is a visualized right ureteral jet. LEFT KIDNEY: Normal location of the left kidney, which is normal in size. The left kidney measures 11.1 cm. There is a normal cortex of the left kidney. The renal cortex measures 1.7 cm. There is no left renal mass or cyst. There are no left renal calculi. There is no left hydronephrosis. DISTAL LEFT URETER: There is non-visualization of the distal left ureter. There is no demonstrated left ureterovesical junction calculus. There is a visualized left ureteral jet. BLADDER: The distended urinary bladder has a volume of 364 ml. There is a normal wall thickness of the distended urinary bladder. There is no demonstrated mass within the urinary bladder. There are no demonstrated bladder calculi. US/Kidney and Bladder IMPRESSION: Normal ultrasound of the kidneys and urinary bladder. Electronically Signed: Jc Lovett DO at 16:06 EST Tel [phone], Service support ,
[2018-05-21] MEDS: oxyCODONE 5 MG Tablet PO ×2 (10:21→17:59)
[2018-05-21] MEDS: Aspirin E.C. 81 MG Tablet PO (10:22)
[2018-05-21] MEDS: Ascorbic Acid 500 MG Tablet 1000 MG PO (10:22)
[2018-05-21] MEDS: DULoxetine Hcl 60 MG Capsule PO (10:22)
[2018-05-21] MEDS: QUEtiapine 100 MG Tablet 150 MG PO ×2 (10:23→22:38)
[2018-05-21] MEDS: Enoxaparin 40 MG/0.4 ML Syringe SC (10:23)
[2018-05-21] MEDS: 0.9% Normal Saline 1,000 ML 100 ML IV ×2 (10:25→22:40)
[2018-05-21] MEDS: Docusate Sodium 100 MG Capsule PO (10:44)
--- NOTE | 2018-05-21 10:49 | PCM.HP.ID ---
Problem List (1) Pyelonephritis Status: Acute Reason for Consult: uti Consulted by: Dr. Moore History of Present Illness: The patient is a 53 year old F with recurrent ecoli uti since 10/2017. Has been on multiple courses of abx. Seen Dr. Pérez as an outpt. Episodes associated with nausea, lower abd pain, and burning dysuria. Most recent episode started 3 weeks ago, no improvement with 8 days of keflex by Dr. Martel, then changed to augmentin with some improvement, then rapidly worsened sx yesterday with fever, shaking chills, R flank pain. Sent to ED, given meropenem, now sx improved this AM. Full ROS Performed and neg except as noted above. - Medical History Past Medical History (Chronic Problems): Chronic Problems Chronic pain syndrome (Chronic) Anxiety and depression (Chronic) Obesity (BMI 30.0-34.9) (Chronic) Seizure disorder (Chronic) Obesity (Chronic) S/P unilateral above knee amputation (Chronic) Hyperlipidemia (Chronic) Phantom limb syndrome (Chronic) Right sided weakness (Chronic) Cephalgia (Chronic) Allergies/Adverse Reactions: Allergies metoclopramide HCl [From Reglan] Allergy (Verified 05/20/18 16:24) Other SHAKING prochlorperazine edisylate [From Compazine] Allergy (Verified 05/20/18 16:24) Hives prochlorperazine maleate [From Compazine] Allergy (Verified 05/20/18 16:24) Hives promethazine HCl [From Phenergan] Allergy (Verified 05/20/18 16:24) Hives Home Medications: Ambulatory Orders Medication Instructions Recorded Buprenorphine HCl 8 mg SL 4X/DAY 02/05/14 Duloxetine Hcl [Cymbalta] 60 mg PO DAILY 02/05/14 FA/Mv,Ca,Iron,Min/Lycopene/Lut 1 each PO DAILY 02/05/14 [Centravites Tablet] Pregabalin [Lyrica] 150 mg PO TID 02/05/14 Docusate Sodium [Colace] 100 mg PO DAILY 07/22/15 Baclofen 10 mg PO QHS PRN 07/23/15 Acetaminophen [Tylenol] 500 mg PO PRN PRN 05/20/18 Amoxicillin/Potassium Clav [Amox 1 tab PO BID 05/20/18 Tr-K Clv 875-125 mg Tab] Ascorbic Acid [Vitamin C] 1,000 mg PO DAILY 05/20/18 Aspirin E.C. [Ecotrin] 81 mg PO DAILY 05/20/18 Carbamazepine [Carbamazepine ER] 400 mg PO Q12H PRN 05/20/18 Ibuprofen [Motrin] 400 mg PO PRN PRN 05/20/18 Methenamine Hippurate 1 gm PO BID 05/20/18 Quetiapine Fumarate [Quetiapine 300 mg PO QHS 05/20/18 Fumarate ER] - Social History Tobacco Use: non-smoker Vital Signs Temp Pulse Resp BP Pulse Ox 97.6 F L 78 16 106/55 L 97 05/21/18 08:00 05/21/18 08:00 05/21/18 08:00 05/21/18 08:00 05/21/18 08:00 Oxygen Delivery Method Room Air Weight: 83.7 kg Body Mass Index (BMI) 32.6 Laboratory Tests Past 24 Hrs 05/20/18 05/20/18 05/21/18 18:40 18:40 05:32 WBC 9.1 7.6 RBC 4.19 L 3.79 L Hgb 12.6 11.7 L Hct 36.5 L 34.0 L MCV 87.1 89.7 MCH 30.1 30.9 MCHC 34.5 34.4 RDW 12.2 12.1 RDW Differential 39.1 38.3 Plt Count 255 245 MPV 9.1 9.8 Immature Gran % (Auto) 0.200 0.300 Neut % (Auto) 56.5 47.9 Lymph % (Auto) 31.0 38.1 [place] % (Auto) 9.5 9.6 Eos % (Auto) 2.3 3.4 Baso % (Auto) 0.5 0.7 Absolute Neuts (auto) 5.1 3.6 Absolute Lymphs (auto) 2.82 2.89 Total Counted Not Reportable Not Reportable Sodium 128 L Potassium 4.2 Chloride 93 L Carbon Dioxide 27.0 Anion Gap 8 BUN 7 Creatinine 0.50 L Estim Creat Clear Calc 106.40 Est GFR (MDRD) Af Amer 165 Est GFR (MDRD) Non-Af 136 BUN/Creatinine Ratio 13.9 Glucose 84 Calcium 8.6 05/21/18 05:32 WBC RBC Hgb Hct MCV MCH MCHC RDW RDW Differential Plt Count MPV Immature Gran % (Auto) Neut % (Auto) Lymph % (Auto) [place] % (Auto) Eos % (Auto) Baso % (Auto) Absolute Neuts (auto) Absolute Lymphs (auto) Total Counted Sodium 134 L Potassium 3.9 Chloride 97 L Carbon Dioxide 30.0 Anion Gap 7 BUN 10 Creatinine 0.48 L Estim Creat Clear Calc 110.83 Est GFR (MDRD) Af Amer 174 Est GFR (MDRD) Non-Af 144 BUN/Creatinine Ratio 20.9 H Glucose 92 Calcium 8.0 L - Other Studies Radiology: [] reviewed Other Studies: [] Route of nutrition/ use of supplements: [] Nutritional Intake: [] IV Site: [] López Catheter: [] - Physical Exam General: Alert, Oriented x3, Cooperative, No apparent distress HEENT: Atraumatic, PERRLA, EOMI Neck: Supple, No Nodes Lungs: Clear to auscultation, Normal air movement Cardiovascular: Regular rate, Regular Rhythm, No murmurs Abdomen: Soft, Non-Distended, Tender - mild lower abd tenderness, no flank tenderness Extremities: No edema, - - LLE s/p disarticulation Skin: No rashes IV Site: Peripheral, without redness Musculoskeletal: No Tenderness to Palpation of Joints or Extremities Neurological: Cranial nerves II-XII grossly intact - Assessment/Plan Antibiotics: [] Assessment/Plan: [] Recurrent ecoli uti, now with acute onset of pyelo with shaking chills at home - Ucx from 05/14 with enterococcus and ESBL ecoli. Sx improved on meropenem since last night. Will continue for now. Given recurrent nature of infection with the same organism and progressive resistance, high suspicion for untreated nidus of infection like abscess or infected stone. Will order us of kidneys, if abnormal would consult Dr. Pérez. Will follow, thank you.
[2018-05-21 11:37] LABS: Bacteria 0 SEEN /hpf (None Seen); Mucous, Urine 0 SEEN /hpf (<or=2+); Red Blood Cells-Urine 0 SEEN /hpf (0-5)
[2018-05-21 11:47] LABS: Glucose, Dipstick Normal (Normal); Ketone-Dipstick Negative (Negative); Leukocyte Esterase-Dipstick 100 /ul (Negative); Nitrite-Dipstick Negative (Negative); Occult Blood-Urine 10 /ul (Negative); Protein-Dipstick Negative (Negative); Specific Gravity, Urine 1.015 (1.002-1.030); Urine Bilirubin Dipstick Negative (Negative); Urine Urobilinogen Normal (Normal)
[2018-05-21 11:48] LABS: Color, Urine Yellow (Yellow); Urine Clarity Clear (Clear)
[2018-05-21 12:04] LABS: White Blood Cells 0-5 SEEN /hpf (0-5)
[2018-05-21 12:05] LABS: Squamous Epithelial Cells - UA 0-5 SEEN /hpf (5-10); Transitional Epithelial - Ur 0-5 SEEN /hpf (0-5)
[2018-05-21 14:00] VITALS: BP 101/78; PULSE 72; RESP 16; TEMP 36.8; O2SAT 95
--- NOTE | 2018-05-21 14:05 | CASEMGMT ---
RICHARD PIÑA Face to Face with patient for initial transition planning/care coordination assessment. RN CM introduced self and role at [facility]. Patient lying in bed, alert and oriented. Patient willing to participate in assessment and is able to answer all questions appropriately. Care providers, pharmacy, and demographics verified. Patient wishes to discharge home, will monitor for need for HHC. Patient states she has no further needs or concerns at this time. CM to follow for discharge planning needs that may arise. PCP: Trev Specialists: [facility] pain management; Mabel, neurology Preferred Pharmacy: [facility] Insurance: Cigna Prescription Benefit: C[employer]a Living Will/HPOA: Lew Eicnurys, LNOK: Lew Ozzyhar Living Arrangements: Patient lives with in 1 story home with 2 steps to enter home. Transportation: Self/ DME/HHC: shower chair, crutches, wheelchair. Disposition Plan: Patient to discharge home with family support and follow-up plans in place. Will monitor for need for HHC. Candi GRANT, RN, CM
[2018-05-21 15:49] VITALS: PULSE 76; O2SAT 97
[2018-05-21 19:52] VITALS: BP 111/70; PULSE 107; RESP 18; TEMP 37.2; O2SAT 97
[2018-05-21] MEDS: carBAMazepine 200 MG Tablet 400 MG PO (21:10)
[2018-05-21] MEDS: BUPRENORPHINE HCL 8 MG TAB.SUBL 4 MG SL (22:38)
[2018-05-22 02:15] VITALS: BP 119/64; PULSE 88; RESP 18; TEMP 37.2; O2SAT 98
[2018-05-22] MEDS: Baclofen 10 MG Tablet PO (02:17)
[2018-05-22] MEDS: Pregabalin 75 MG Capsule 150 MG PO ×2 (05:25→14:36)
[2018-05-22] MEDS: BUPRENORPHINE HCL 8 MG TAB.SUBL SL ×3 (05:25→16:14)
[2018-05-22 07:33] LABS: Anion Gap 4 (5-15); BUN 9 mg/dL (7-18); BUN/Creat Ratio 19.9 RATIO (10-20); Calcium,Total 8.2 mg/dL (8.5-10.1); Chloride 104 mmol/L (98-107); Creatinine, Serum 0.45 mg/dL (0.55-1.02); EST Glomerular Filtration Rate 153 mL/min (>60); Est Glom Filt Rate - Afr Amer 185 mL/min (>60); Estimated Creatinine Clearance 118.22 ml/min; Glucose 117 mg/dL (74-106); Magnesium 2.1 mg/dL (1.6-2.6); Sodium Level 139 mmol/L (136-145)
[2018-05-22 07:37] LABS: Hematocrit 34.7 % (37-47); Hemoglobin 11.2 g/dl (12.0-15.0); Mean Corp Hgb Conc 32.3 g/gl (32-36); Mean Corpuscular Hgb 29.9 pg (27.0-32.0); Mean Corpuscular Volume 92.8 fL (81-99); Mean Platelet Vol. 9.6 fl (6.2-12.0); Platelet Count 227 K/mm3 (150-450); RBC Distribution Width CV 12.5 % (11.6-14.6); RBC Distribution Width SD 40.9 fl (35.1-43.9); Red Blood Count 3.74 M/mm3 (4.2-5.4); White Blood Count 9.4 K/mm3 (4.4-11.0)
[2018-05-22 07:45] LABS: Scan Indicated on CBC? Y/N NO
[2018-05-22 08:13] VITALS: BP 117/86; PULSE 67; RESP 16; TEMP 37.3; O2SAT 95
--- NOTE | 2018-05-22 09:36 | PN_ITS ---
Patient Problems: Active and Suspected Problems Pyelonephritis (Acute) Subjective: Patient seen appears much more alert. Overall clinical condition continues to improve. Ultrasound of the kidneys did not show any structural abnormalities. Objective: GENERAL: cooperative HEENT: Atraumatic; moist oral mucosa EYES; Anicteric, Normal Conjunctiva NECK; supple, normal thyroid, no distended JVD. RESPIRATORY: Diminished to auscultation bilaterally, CARDIOVASCULAR: Regular S1 S2, no audible murmurs GI: soft, non-tender, normoactive bowel sounds, : No Renal angle tenderness; EXTREMITIES: Left AKA MUSCULOSKELETAL: No Joint Tenderness; no muscle waisting NEURO: Awake; no lateralizing signs. SKIN: No Rash PSYCH; Normal affect Vitals/I&O's: Vital Signs Temp Pulse Resp BP Pulse Ox 99.1 F 67 16 117/86 H 95 05/22/18 08:13 05/22/18 08:13 05/22/18 08:13 05/22/18 08:13 05/22/18 08:13 Oxygen Delivery Method Room Air Weight: 83.7 kg Body Mass Index (BMI) 32.6 Intake and Output for Last 24 Hours 05/20/18 05/21/18 05/22/18 23:59 23:59 23:59 Intake Total 732 / 732 3544 / 3544 Balance 732 / 732 3544 / 3544 Laboratory Results 05/21/18 11:25: Urine Color Yellow, Urine Clarity Clear, Urine pH 6.0, Ur Specific [place] 1.015, Urine Protein Negative, Urine Glucose (UA) Normal, Urine Ketones Negative, Urine Occult Blood 10 H, Urine Nitrite Negative, Urine Bilirubin Negative, Urine Urobilinogen Normal, Ur Leukocyte Esterase 100 H, Urine RBC 0 SEEN, Urine WBC 0-5 SEEN, Ur Squamous Epith Cells 0-5 SEEN, Ur Transition Epith Cell 0-5 SEEN, Urine Bacteria 0 SEEN, Urine Mucus 0 SEEN 05/22/18 06:55: WBC 9.4, RBC 3.74 L, Hgb 11.2 L, Hct 34.7 L, MCV 92.8, MCH 29.9, MCHC 32.3, RDW 12.5, RDW Differential 40.9, Plt Count 227, MPV 9.6 05/22/18 06:55: Sodium 139, Potassium 4.0, Chloride 104, Carbon Dioxide 31.0, Anion Gap 4 L, BUN 9, Creatinine 0.45 L, Estim Creat Clear Calc 118.22, Est GFR (MDRD) Af Amer 185, Est GFR (MDRD) Non-Af 153, BUN/Creatinine Ratio 19.9, Glucose 117 H, Calcium 8.2 L, Magnesium 2.1 Current Medications Acetaminophen (Tylenol) 650 mg PO Q6H PRN PRN PRN Reason: Mild Pain (scale 0-3)/T>100.7 Al Hydroxide/Mg Hydroxide (Mylanta Ii) 30 ml PO Q6H PRN PRN PRN Reason: Gastric burning Ascorbic Acid (Vitamin C) 1,000 mg PO DAILY [facility] Last Admin: 05/21/18 10:22 Dose: 1,000 mg Aspirin (Ecotrin) 81 mg PO DAILY [facility] Last Admin: 05/21/18 10:22 Dose: 81 mg Baclofen (Lioresal) 10 mg PO QHS PRN PRN PRN Reason: MUSCLE SPASM Last Admin: 05/22/18 02:17 Dose: 10 mg Buprenorphine HCl (Buprenorphine Hcl) 8 mg SL 0600,1200,1600,2000 [facility] Last Admin: 05/22/18 05:25 Dose: 8 mg Buprenorphine HCl (Buprenorphine Hcl) 4 mg SL 2200 [facility] Last Admin: 05/21/18 22:38 Dose: 4 mg Carbamazepine (Tegretol) 400 mg PO Q12H PRN PRN PRN Reason: SIEZURES Last Admin: 05/21/18 21:10 Dose: 400 mg Docusate Sodium (Colace) 100 mg PO DAILY [facility] Last Admin: 05/21/18 10:44 Dose: 100 mg Duloxetine HCl (Cymbalta) 60 mg PO DAILY [facility] Last Admin: 05/21/18 10:22 Dose: 60 mg Enoxaparin Sodium (Lovenox) 40 mg SC DAILY@1000 [facility] Last Admin: 05/21/18 10:23 Dose: 40 mg Sodium Chloride () 1,000 mls @ 100 mls/hr IV .Q10H [facility] Last Admin: 05/21/18 22:40 Dose: 100 mls/hr Meropenem 500 mg/ Sodium (Chloride) 60 mls @ 100 mls/hr IV Q6 [facility] Magnesium Hydroxide (Milk Of Magnesia) 30 ml PO DAILY PRN PRN PRN Reason: Constipation Morphine Sulfate () 2 - 4 mg IV Q3H PRN PRN PRN Reason: Severe Pain (pain scale 6-10) Morphine Sulfate () 1 - 2 mg IV Q4H PRN PRN PRN Reason: Moderate Pain (pain scale 4-5) Ondansetron HCl (Zofran) 4 mg IV Q8H PRN PRN PRN Reason: NAUSEA Last Admin: 05/21/18 05:44 Dose: 4 mg Oxycodone HCl (Oxyir) 5 mg PO Q4H PRN PRN PRN Reason: Moderate Pain (pain scale 4-5) Last Admin: 05/21/18 17:59 Dose: 5 mg Pregabalin (Lyrica) 150 mg PO TID [facility] Last Admin: 05/22/18 05:25 Dose: 150 mg Quetiapine Fumarate (Seroquel) 150 mg PO BID [facility] Last Admin: 05/21/18 22:38 Dose: 150 mg Sodium Chloride () 5 - 30 ml IV UD PRN PRN Reason: SALINE FLUSH Medical Necessity - Tobacco Use Smoking Status: Never smoker Tobacco Use: Non-smoker Assessment/Plan All Active Problems UTI (urinary tract infection) (Acute) Sepsis (Acute) Pyelonephritis (Acute) Patient is a 53-year-old lady who presented with suprapubic pain and assessment of acute complicated UTI was made admitted to regular nursing floor for subsequent management 1. Acute complicated UTI patient recent urine cultures obtained on 05/14/2018 demonstrated ESBL producing E. coli as well as enterococcus. Patient was started on meropenem on admission. Consultation was placed to ID subsequent antibiotic management deferred to infectious disease patient appears to be responding to treatment clinically. Subsequent antibiotic management with regards to duration deferred to infectious disease 2. 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 History of complex partial seizure patient is carbamazepine did continue 4. Chronic pain syndrome 5. Dyslipidemia managed with diet 6. Depression with anxiety; patient is on Seroquel and Cymbalta 7. DVT prophylaxis SC Lovenox Clinical Impression(s) from Imaging Studies Renal Ultrasound 05/21/18 09:22 IMPRESSION: Normal ultrasound of the kidneys and urinary bladder. Electronically Signed: Jc Lovett DO at 16:06 EST Tel [phone], Service support , Code Visit Inpatient E&M: 33194 Subs Hosp L2
[2018-05-22] MEDS: 0.9% Normal Saline 1,000 ML 100 ML IV (09:38)
[2018-05-22] MEDS: Docusate Sodium 100 MG Capsule PO (09:44)
[2018-05-22] MEDS: Enoxaparin 40 MG/0.4 ML Syringe SC (09:45)
[2018-05-22] MEDS: DULoxetine Hcl 60 MG Capsule PO (09:45)
[2018-05-22] MEDS: Aspirin E.C. 81 MG Tablet PO (09:45)
[2018-05-22] MEDS: QUEtiapine 100 MG Tablet 150 MG PO (09:46)
[2018-05-22] MEDS: Ascorbic Acid 500 MG Tablet 1000 MG PO (09:47)
[2018-05-22] MEDS: carBAMazepine 400 MG TAB.SR.12H PO (11:07)
--- NOTE | 2018-05-22 12:01 | PN.ID_ITS ---
Patient Problems: Active and Suspected Problems Pyelonephritis (Acute) Subjective: Feeling back to normal, no pain or fever. No dysuria. - Physical Exam General: Alert, Cooperative, No apparent distress Lungs: Clear to auscultation, Normal air movement Cardiovascular: Regular rate, Regular Rhythm Abdomen: Soft, Non Tender, Non-Distended Skin: No rashes Vital Signs Temp Pulse Resp BP Pulse Ox 99.1 F 67 16 117/86 H 95 05/22/18 08:13 05/22/18 08:13 05/22/18 08:13 05/22/18 08:13 05/22/18 08:13 Oxygen Delivery Method Room Air Weight: 83.7 kg Body Mass Index (BMI) 32.6 Intake and Output for Last 24 Hours 05/20/18 05/21/18 05/22/18 23:59 23:59 23:59 Intake Total 732 / 732 3544 / 3544 Balance 732 / 732 3544 / 3544 Microbiology Past 72 Hours 05/21/18 11:25 Urine Culture - Preliminary Urine, Clean Catch Culture exhibits no growth. Laboratory Tests Past 24 Hrs 05/21/18 05/22/18 05/22/18 11:25 06:55 06:55 WBC 9.4 RBC 3.74 L Hgb 11.2 L Hct 34.7 L MCV 92.8 MCH 29.9 MCHC 32.3 RDW 12.5 RDW Differential 40.9 Plt Count 227 MPV 9.6 Sodium 139 Potassium 4.0 Chloride 104 Carbon Dioxide 31.0 Anion Gap 4 L BUN 9 Creatinine 0.45 L Estim Creat Clear Calc 118.22 Est GFR (MDRD) Af Amer 185 Est GFR (MDRD) Non-Af 153 BUN/Creatinine Ratio 19.9 Glucose 117 H Calcium 8.2 L Magnesium 2.1 Urine RBC 0 SEEN Urine WBC 0-5 SEEN Ur Squamous Epith Cells 0-5 SEEN Ur Transition Epith Cell 0-5 SEEN Urine Bacteria 0 SEEN Urine Mucus 0 SEEN Medical Necessity - Tobacco Use Smoking Status: Never smoker Tobacco Use: Non-smoker Route of nutrition/ use of supplements: [] Nutritional Intake: [] IV Site: [] López Catheter: [] - Assessment/Plan Antibiotics: [] Assessment/Plan: [] Recurrent ecoli uti, now with acute onset of pyelo with shaking chills at home - Ucx from 05/14 with enterococcus and ESBL ecoli. Sx improved on meropenem since admission. Ok for d/c home on po fosfomycin 3gm q3days for 3 dose course. Recommend urology followup for possible cystoscopy or bladder emptying study. Continue preventative methenamine and vit C. Will follow, rx writte and sent to [facility] pharmacy.
[2018-05-22 12:39] VITALS: BP 112/72; PULSE 96; RESP 16; TEMP 36.8; O2SAT 97
--- NOTE | 2018-05-22 15:41 | DCINST_ITS ---
- Discharge Diagnoses Current Active Problems: Current Active and Chronic Problems Pyelonephritis (Acute) You will use the following diet at home:: No restrictions Your food should be the consistency of: Regular Allergies/Adverse Reactions: Allergies metoclopramide HCl [From Reglan] Allergy (Verified 05/20/18 16:24) Other SHAKING prochlorperazine edisylate [From Compazine] Allergy (Verified 05/20/18 16:24) Hives prochlorperazine maleate [From Compazine] Allergy (Verified 05/20/18 16:24) Hives promethazine HCl [From Phenergan] Allergy (Verified 05/20/18 16:24) Hives Medications to take at Discharge Buprenorphine HCl 8 mg SL 4X/DAY 02/05/14 Duloxetine Hcl [Cymbalta] 60 mg PO DAILY 02/05/14 FA/Mv,Ca,Iron,Min/Lycopene/Lut [Centravites Tablet] 1 each PO DAILY 02/05/14 Pregabalin [Lyrica] 150 mg PO TID 02/05/14 Docusate Sodium [Colace] 100 mg PO DAILY 07/22/15 Baclofen 30 mg PO QHS PRN 07/23/15 Acetaminophen [Tylenol] 500 mg PO PRN PRN 05/20/18 Ascorbic Acid [Vitamin C] 1,000 mg PO DAILY 05/20/18 Aspirin E.C. [Ecotrin] 81 mg PO DAILY 05/20/18 Carbamazepine [Carbamazepine ER] 400 mg PO Q12H 05/20/18 Ibuprofen [Motrin] 400 mg PO PRN PRN 05/20/18 Methenamine Hippurate 1 gm PO BID 05/20/18 Quetiapine Fumarate [Quetiapine Fumarate ER] 300 mg PO QHS 05/20/18 Fosfomycin Tromethamine [Monurol] 3 gm PO UD #3 packet 05/22/18 The following prescriptions were given: Fosfomycin Tromethamine [Monurol] 3 gm PO UD #3 packet Primary Care Physician: Harshad Karimi MD [Primary Care Provider] - Test Results: Test results from this visit will be discussed in further detail at your follow- up appointment, if applicable. Proposed Discharge Date: 05/22/18
--- NOTE | 2018-05-22 15:41 | PCM.DC.SUM ---
Discharge Date and Diagnosis - Problem List Patient Problems: Active and Suspected Problems Pyelonephritis (Acute) Date of Admission: 05/20/18 Date of Discharge: 05/22/18 - Primary Discharge Diagnosis Active and Suspected Problems Pyelonephritis (Acute) - Secondary Discharge Diagnosis Chronic Problems Chronic pain syndrome (Chronic) Anxiety and depression (Chronic) Obesity (BMI 30.0-34.9) (Chronic) Seizure disorder (Chronic) Obesity (Chronic) S/P unilateral above knee amputation (Chronic) Hyperlipidemia (Chronic) Phantom limb syndrome (Chronic) Right sided weakness (Chronic) Cephalgia (Chronic) Hospital Course and Treatment Imaging Results: Clinical Impression(s) from Imaging Studies Renal Ultrasound 05/21/18 09:22 IMPRESSION: Normal ultrasound of the kidneys and urinary bladder. Electronically Signed: Jc Lovett DO at 16:06 EST Tel [phone], Service support , Operations: None Summary of Care Provided: Patient is a 53-year-old lady who presented with suprapubic pain and assessment of acute complicated UTI was made admitted to regular nursing floor for subsequent management 1. Acute complicated UTI patient recent urine cultures obtained on 05/14/2018 demonstrated ESBL producing E. coli as well as enterococcus. Patient was started on meropenem on admission. Consultation was placed to ID subsequent antibiotic management deferred to infectious disease patient appears to be responding to treatment clinically. Subsequent antibiotic management with regards to duration deferred to infectious disease. Patient was seen in consultation by Dr. Schneider who recommended for patient to be discharged home on fosfomycin 3 g every 3 daily x3 doses. 2. 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 History of complex partial seizure patient is carbamazepine did continue 4. Chronic pain syndrome 5. Dyslipidemia managed with diet 6. Depression with anxiety; patient is on Seroquel and Cymbalta 7. DVT prophylaxis SC Lovenox Patient Problems: Active and Suspected Problems Pyelonephritis (Acute) - Physical Exam General: Alert HEENT: Atraumatic Neck: Supple Lungs: Clear to auscultation Cardiovascular: Regular rate Psych/Mental Status: Normal Affect Vital Signs Temp Pulse Resp BP Pulse Ox 98.2 F 96 16 112/72 97 05/22/18 12:39 05/22/18 12:39 05/22/18 12:39 05/22/18 12:39 05/22/18 12:39 Oxygen Delivery Method Room Air Weight: 83.7 kg Body Mass Index (BMI) 32.6 Intake and Output for Last 24 Hours 05/20/18 05/21/18 05/22/18 23:59 23:59 23:59 Intake Total 732 / 732 3544 / 3544 Balance 732 / 732 3544 / 3544 Microbiology Past 72 Hours 05/21/18 11:25 Urine Culture - Preliminary Urine, Clean Catch Culture exhibits no growth. Laboratory Tests Past 24 Hrs 05/22/18 05/22/18 06:55 06:55 WBC 9.4 RBC 3.74 L Hgb 11.2 L Hct 34.7 L MCV 92.8 MCH 29.9 MCHC 32.3 RDW 12.5 RDW Differential 40.9 Plt Count 227 MPV 9.6 Sodium 139 Potassium 4.0 Chloride 104 Carbon Dioxide 31.0 Anion Gap 4 L BUN 9 Creatinine 0.45 L Estim Creat Clear Calc 118.22 Est GFR (MDRD) Af Amer 185 Est GFR (MDRD) Non-Af 153 BUN/Creatinine Ratio 19.9 Glucose 117 H Calcium 8.2 L Magnesium 2.1 Discharge Diet: No Restrictions Home Medications: Medications to take at Discharge Buprenorphine HCl 8 mg SL 4X/DAY 02/05/14 Duloxetine Hcl [Cymbalta] 60 mg PO DAILY 02/05/14 FA/Mv,Ca,Iron,Min/Lycopene/Lut [Centravites Tablet] 1 each PO DAILY 02/05/14 Pregabalin [Lyrica] 150 mg PO TID 02/05/14 Docusate Sodium [Colace] 100 mg PO DAILY 07/22/15 Baclofen 30 mg PO QHS PRN 07/23/15 Acetaminophen [Tylenol] 500 mg PO PRN PRN 05/20/18 Ascorbic Acid [Vitamin C] 1,000 mg PO DAILY 05/20/18 Aspirin E.C. [Ecotrin] 81 mg PO DAILY 05/20/18 Carbamazepine [Carbamazepine ER] 400 mg PO Q12H 05/20/18 Ibuprofen [Motrin] 400 mg PO PRN PRN 05/20/18 Methenamine Hippurate 1 gm PO BID 05/20/18 Quetiapine Fumarate [Quetiapine Fumarate ER] 300 mg PO QHS 05/20/18 Fosfomycin Tromethamine [Monurol] 3 gm PO UD #3 packet 05/22/18 Following Prescrptions Were Given to Patient: Fosfomycin Tromethamine [Monurol] 3 gm PO UD #3 packet Primary Care Physician: Harshad Karimi MD [Primary Care Provider] - Disposition: Home Minutes spent on discharge:: 45 Patient Condition:: Stable Medical Necessity - Tobacco Use Smoking Status: Never smoker Tobacco Use: Non-smoker Meaningful Use Info Meaningful Use Diagnoses (Choose all that apply): None applicable Code Visit Inpatient E&M: 68003 Disch Hosp
--- NOTE | 2018-05-22 15:51 | CASEMGMT ---
Social Work Note SW asked pt about Advanced Directives. Pt states she has completed Advanced Directives and she will have her bring in a copy of documents. 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
== END 2018-05-22 16:45 | disposition home or self-care (01) | DRG 690 ==
LOC: ED 16:59 → MS3 18:41
PROVIDERS: Admitting Provider Family Medicine; Emergency Provider Emergency Medicine; Family Provider Family Medicine; PCP Family Medicine; Visit Provider Internal Medicine
DX: N10 Acute pyelonephritis (principal); B96.20 Unspecified Escherichia coli [E. coli] as the cause of diseases classified elsewhere; B95.2 Enterococcus as the cause of diseases classified elsewhere; G54.6 Phantom limb syndrome with pain; Z89.612 Acquired absence of left leg above knee; F41.8 Other specified anxiety disorders; E78.5 Hyperlipidemia, unspecified; G89.4 Chronic pain syndrome
CPT/HCPCS: 36415; 76770; 80048; 81001; 83735; 85025; 85027; 87040; 87086; 99285; J2185; J7030; A4216; J2405

== ENCOUNTER → 2018-07-03 11:25 | Outpatient (CLI) | payer OTHER, SELFPAY ==
[2018-05-20 18:48] VITALS: BMI 32.6
[2018-07-03 16:40] LABS: Color, Urine Yellow (Yellow); Glucose, Dipstick Normal (Normal); Ketone-Dipstick Negative (Negative); Leukocyte Esterase-Dipstick 100 /ul (Negative); Nitrite-Dipstick Positive (Negative); Occult Blood-Urine 25 /ul (Negative); Protein-Dipstick 30 mg/dl (Negative); Urine Clarity Cloudy (Clear); Urine Urobilinogen 4 mg/dl (Normal)
[2018-07-03 17:33] LABS: Urine Bilirubin Dipstick 3 mg/dL (Negative)
[2018-07-03 17:36] LABS: Bacteria 2+ /hpf (None Seen); Mucous, Urine 1+ /hpf (<or=2+); Red Blood Cells-Urine 5-10 SEEN /hpf (0-5); Renal Epithelial Cells 0-5 SEEN /hpf (0-5); Squamous Epithelial Cells - UA 5-10 SEEN /hpf (5-10); White Blood Cells 50-100 SEEN /hpf (0-5)
== END ==
PROVIDERS: Family Provider Family Medicine; PCP Family Medicine; Referring Provider Family Medicine; Visit Provider Family Medicine
DX: R30.0 Dysuria (principal)
CPT/HCPCS: 36415; 81001; 87086; 87088; 87186

== ENCOUNTER → 2018-07-16 17:46 | Outpatient (CLI) | payer OTHER, SELFPAY ==
[2018-07-16 17:47] LABS: Bacteria 0 SEEN /hpf (None Seen); Red Blood Cells-Urine 0 SEEN /hpf (0-5)
[2018-07-16 18:25] LABS: Color, Urine Yellow (Yellow); Glucose, Dipstick Normal (Normal); Ketone-Dipstick Negative (Negative); Leukocyte Esterase-Dipstick 25 /ul (Negative); Nitrite-Dipstick Negative (Negative); Occult Blood-Urine 10 /ul (Negative); Protein-Dipstick Negative (Negative); Urine Bilirubin Dipstick Negative (Negative); Urine Urobilinogen Normal (Normal)
[2018-07-16 18:36] LABS: Urine Clarity Sl Cldy (Clear)
[2018-07-16 19:06] LABS: Squamous Epithelial Cells - UA 0-5 SEEN /hpf (5-10); White Blood Cells 0-5 SEEN /hpf (0-5)
[2018-07-16 19:07] LABS: Transitional Epithelial - Ur 0-5 SEEN /hpf (0-5)
[2018-07-16 19:08] LABS: Mucous, Urine RARE /hpf (<or=2+)
== END ==
PROVIDERS: Family Provider Family Medicine; PCP Family Medicine; Referring Provider Family Medicine; Visit Provider Family Medicine
DX: N39.0 Urinary tract infection, site not specified (principal)
CPT/HCPCS: 81001; 87086; 87088

== ENCOUNTER → 2018-07-22 08:35 | Outpatient (CLI) | payer OTHER, SELFPAY ==
[2018-07-22 08:44] LABS: Bacteria 0 SEEN /hpf (None Seen); Mucous, Urine 0 SEEN /hpf (<or=2+); Red Blood Cells-Urine 0 SEEN /hpf (0-5)
[2018-07-22 10:33] LABS: Color, Urine Yellow (Yellow); Glucose, Dipstick Normal (Normal); Ketone-Dipstick Negative (Negative); Leukocyte Esterase-Dipstick 25 /ul (Negative); Nitrite-Dipstick Negative (Negative); Occult Blood-Urine 50 /ul (Negative); Protein-Dipstick Negative (Negative); Urine Bilirubin Dipstick Negative (Negative); Urine Clarity Clear (Clear); Urine Urobilinogen Normal (Normal)
[2018-07-22 11:52] LABS: Squamous Epithelial Cells - UA 0-5 SEEN /hpf (5-10); White Blood Cells 0-5 SEEN /hpf (0-5)
== END ==
PROVIDERS: Family Provider Family Medicine; PCP Family Medicine; Referring Provider Family Medicine; Visit Provider Family Medicine
DX: N39.0 Urinary tract infection, site not specified (principal)
CPT/HCPCS: 81001; 87086; 87088

== ENCOUNTER 2018-07-22 18:03 | Observation (INO) | payer OTHER, SELFPAY ==
[2018-07-22 18:04] VITALS: BP 157/102; PULSE 101; RESP 18; TEMP 36.9; O2SAT 96
--- NOTE | 2018-07-22 18:20 | EKG12_ITS ---
Test Reason : CONFUSION Blood Pressure : / mmHG Vent. Rate : 087 BPM Atrial Rate : 087 BPM P-R Int : 168 ms QRS Dur : 094 ms QT Int : 390 ms P-R-T Axes : 075 -21 015 degrees QTc Int : 469 ms Normal sinus rhythm Low voltage QRS Nonspecific ST and T wave abnormality Prolonged QT Abnormal ECG Confirmed by SANTIAGO ESPINOSA, VOLODYMYR ([id number]), editor index WILLIAM LOO ([id number]) on 07/27/2018 10:05:06 AM Referred By: Sea Negron Confirmed By:VOLODYMYR HENDERSON MD
--- NOTE | 2018-07-22 18:20 | CT_ITS ---
STUDY: CT ABDOMEN AND PELVIS WITHOUT CONTRAST REASON FOR EXAM: Female, 53 years old. Bilateral flank pain. RADIATION DOSAGE (If Supplied By Facility): CTDIvol = ( 15.09 ) mGy, DLP = ( 803.09 ) mGycm TECHNIQUE: Transaxial images were obtained from the dome of the diaphragm to the symphysis pubis without oral contrast, and without intravenous contrast. Sagittal and coronal images were reconstructed. Individualized dose optimization techniques were used for this CT. COMPARISON: October 22, 2017 FINDINGS: The visualized lung bases are unremarkable. The visualized portions of the heart are within normal limits. Normal liver. Normal spleen. Normal pancreas. Normal bilateral adrenal glands. Normal right kidney. Normal left kidney. Normal visualized stomach. Normal small intestine. There is a moderate amount of stool throughout the colon and rectum. There is non-visualization of the appendix. Normal abdominal aorta. Normal inferior vena cava. Normal retroperitoneum. Normal urinary bladder. Normal abdominal wall. There are diffuse degenerative changes of the visualized lumbar spine. There is evidence of prior left lower extremity amputation. CT/Abdomen/Pelvis without Cont IMPRESSION: Moderate amount of stool throughout the colon and rectum. Electronically Signed: Maday Dc MD at 20:29 EST Tel , Service support ,
--- NOTE | 2018-07-22 19:05 | CT_ITS ---
STUDY: CT BRAIN WITHOUT CONTRAST REASON FOR EXAM: Female, 53 years old. Confusion RADIATION DOSAGE (If Supplied By Facility): CTDIvol = ( 44.99 ) mGy, DLP = ( 796.11 ) mGycm TECHNIQUE: Transaxial CT imaging of the brain was performed without administration of intravenous contrast material. Individualized dose optimization techniques were used for this CT. COMPARISON: 07/24/2015 FINDINGS: There are stable bilateral old subcentimeter lacunar infarcts in the periventricular regions. There is no acute bleed or infarct. There are normal white matter tracts. The ventricles are normal in configuration. There is no hydrocephalus. The visualized paranasal sinuses are clear. The mastoid air cells are well aerated. There is no skull fracture. 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 No acute intracranial abnormality. Electronically Signed: Pablito العلي, at 20:23 EST Tel , Service support ,
[2018-07-22 19:17] LABS: Bacteria 0 SEEN /hpf (None Seen); Mucous, Urine 0 SEEN /hpf (<or=2+); Red Blood Cells-Urine 0 SEEN /hpf (0-5)
[2018-07-22 19:21] LABS: Color, Urine Yellow (Yellow); Glucose, Dipstick Normal (Normal); Ketone-Dipstick Negative (Negative); Leukocyte Esterase-Dipstick 100 /ul (Negative); Nitrite-Dipstick Negative (Negative); Occult Blood-Urine 10 /ul (Negative); Protein-Dipstick Negative (Negative); Urine Bilirubin Dipstick Negative (Negative); Urine Clarity Clear (Clear); Urine Urobilinogen Normal (Normal)
[2018-07-22 19:27] LABS: Absolute Lymphocyte Count 2.61 X10^3/ul (0.83-4.51); Absolute Neutrophil Count 9.1 X10^3/uL (2.0-7.7); Basophil# 0.06 X10^3/uL; Basophil% 0.5 % (0-1); Eosinophil# 0.21 X10^3/uL; Eosinophils% 1.6 % (0-5); Hematocrit 37.9 % (37-47); Hemoglobin 12.2 g/dl (12.0-15.0); Lymphocyte # 2.61 X10^3/ul (4.0); Lymphocyte % 20.2 % (19-41); Mean Corp Hgb Conc 32.2 g/gl (32-36); Mean Corpuscular Hgb 29.4 pg (27.0-32.0); Mean Corpuscular Volume 91.3 fL (81-99); Mean Platelet Vol. 9.7 fl (6.2-12.0); Monocyte# 0.93 X10^3/uL; Monocyte% 7.2 % (0-10); Neutrophil # 9.07 X10^3/uL (2.7-7.7); Neutrophil % 70.2 % (47-70); Platelet Count 249 K/mm3 (150-450); RBC Distribution Width CV 12.8 % (11.6-14.6); RBC Distribution Width SD 42.7 fl (35.1-43.9); Red Blood Count 4.15 M/mm3 (4.2-5.4); White Blood Count 12.9 K/mm3 (4.4-11.0)
[2018-07-22] MEDS: 0.9% Normal Saline 1,000 ML 1000 ML IV (19:27)
[2018-07-22] MEDS: Ondansetron 4 MG/2 ML Vial IV (19:29)
[2018-07-22 19:38] LABS: POSITIVE COUNT NO; POSITIVE DIFFERENTIAL NO; POSITIVE MORPHOLOGY NO
[2018-07-22 19:51] LABS: Bedside Glucose 87 mg/dL (70-110)
[2018-07-22 20:04] LABS: Squamous Epithelial Cells - UA 0-5 SEEN /hpf (5-10); White Blood Cells 0-5 SEEN /hpf (0-5)
[2018-07-22 20:08] LABS: Anion Gap 7 (5-15); BUN 17 mg/dL (7-18); BUN/Creat Ratio 27.2 RATIO (10-20); Calcium,Total 8.7 mg/dL (8.5-10.1); Chloride 104 mmol/L (98-107); Creatinine, Serum 0.63 mg/dL (0.55-1.02); EST Glomerular Filtration Rate 105 mL/min (>60); Est Glom Filt Rate - Afr Amer 128 mL/min (>60); Estimated Creatinine Clearance 88.15 ml/min; Glucose 102 mg/dL (74-106); Potassium 3.9 mmol/L (3.5-5.1); Sodium Level 139 mmol/L (136-145)
[2018-07-22] MEDS: Morphine 4 MG/ML Syringe IV ×2 (20:14→21:08)
[2018-07-22 20:16] VITALS: PULSE 86; RESP 16; TEMP 37.1; O2SAT 95
[2018-07-22 20:22] LABS: Amphetamine Urine VISTA NEGATIVE (<1000 ng/mL); Barbiturate Urine VISTA NEGATIVE (< 200 ng/mL); Benzodiazepine Urine VISTA NEGATIVE (< 200 ng/mL); Cocaine Urine VISTA NEGATIVE (< 300 ng/mL); Ecstacy Urine VISTA NEGATIVE (< 500 ng/mL); Methadone Urine VISTA NEGATIVE (< 300 ng/mL); PCP Urine VISTA NEGATIVE (< 25 ng/mL); THC Urine VISTA NEGATIVE (< 50 ng/mL); Vista UDS pH Range 5
[2018-07-22 20:31] LABS: Carbamazepine (Tegretol) 14.1 ug/mL (4.0-12.0)
--- NOTE | 2018-07-22 20:36 | ED.RN ---
lab called with critical lab results. Carbamiazepine level 14.1. Dr. Yeung made aware no new orders at this time
--- NOTE | 2018-07-22 20:58 | ED.VISSUMM ---
- ER Visit Summary Date of Service: 07/22/18 Chief Complaint: [Mental status change, confusion] History of Present Illness: The patient is a 53 F [presents the emergency department with her with complaint of increased mental status change and confusion today. Patient apparently was texting the around 315 at work and seemed like her normal self. Patient was found by her after coming home from work at the neighbor's house sitting on their steps 3 doors down. Patient seemed disoriented. Patient does have a history of a urinary tract infections. Patient apparently had been vomiting today and was complaining of low back pain. Patient's not had fevers. She does have a history of UTIs, chronic pain syndrome, anxiety, high cholesterol, seizure disorder. Patient is not had a seizure in over 10 years.] Physical Examination: [HEENT-PERRLA, EOMI. Cranial nerves II through XII grossly intact. TMs clear. Mucous membranes moist. No adenopathy. Patient alert only to self but not place or time. Cardiovascular-regular rate and rhythm without murmur or ectopy Lungs-clear to auscultation, chest wall stable without crepitus or subcu emphysema Abdomen-normoactive bowel sounds, soft. Mild tenderness over suprapubic region. There is no rebound, rigidity, or pale signs. Back exam-patient has some diffuse tenderness over the lumbar paraspinal musculature bilaterally. Extremities-intact ?4, normal range of motion, normal pulses, atraumatic] Test Results: [CBC with differential obtained showed a white count 12.9, hemoglobin 12, hematocrit 38, placed 249. Chemistries unremarkable. Urinalysis unremarkable. Lactate was 1.0. Toxicology screen was negative. Alcohol was 18. Tegretol level was 14.1. CT scan of the brain without contrast showed some lacunar infarcts that appeared old. CT scan of the abdomen pelvis showed moderate stool throughout the colon otherwise nothing acute.] EKG obtained showed a sinus rhythm with a ventricular rate of 87 bpm with some nonspecific ST changes noted. Troponin was less than 0.015. Emergency Department Course and Treatment: [Patient had a liter normal same fluid bolus given.] I suspect patient's symptoms may be related to her Tegretol level. Treatment Plan: [Patient will be admitted for IV hydration and pain control] Disposition: [Admit] Impression: [Mental status change Tegretol toxicity Back pain] This note was generated with Paltalk dictation software. It may contain incorrect words, spelling, and punctuation that were not noted in review of the chart prior to signing ED Disposition - Plan for ED Patient: Chief Complaint: Confusion Referrals: Harshad Karimi MD [Primary Care Provider] -
--- NOTE | 2018-07-22 20:59 | PCM.HP.STD ---
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 Patient had burning with urination and bilateral flank pain for which reason her PCP requested that a urinary sample be dropped. A urine sample was subsequently dropped; and the plan was for patient to see PCP after which antibiotics will be prescribed. 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 However patient was found sitting at the door stairs of a neighbor in the snow. Patient did not know who her was. Patient was taken to the PCPs office and the PCP noticing a considerable change in the patient recommended that patient be brought to the emergency department. Per family after patient had received IV fluids at emergency department she got better. The emergency department patient was found to have elevated Tegretol level. Patient reported that the last time she had a seizure was about 3 years ago and she religiously take her Tegretol every morning. Patient reports that a day before presentation she noticed burning urination and difficulty with urination. She reports nausea; vomiting and bilateral flank pain. She reports that she had hematuria on urinalysis ordered by her PCP. She reports home temperature of 100 Fahrenheit; chills and anorexia. Reportedly she was on Augmentin two weeks ago for UTI. Past Medical History Past Medical History (Chronic Problems): Chronic Problems Chronic pain syndrome (Chronic) Anxiety and depression (Chronic) Obesity (BMI 30.0-34.9) (Chronic) Seizure disorder (Chronic) Obesity (Chronic) S/P unilateral above knee amputation (Chronic) Hyperlipidemia (Chronic) Phantom limb syndrome (Chronic) Right sided weakness (Chronic) Cephalgia (Chronic) Allergies metoclopramide HCl [From Reglan] Allergy (Verified 07/22/18 18:04) Other SHAKING prochlorperazine edisylate [From Compazine] Allergy (Verified 07/22/18 18:04) Hives prochlorperazine maleate [From Compazine] Allergy (Verified 07/22/18 18:04) Hives promethazine HCl [From Phenergan] Allergy (Verified 07/22/18 18:04) Hives Home Medications: Ambulatory Orders Medication Instructions Recorded Buprenorphine HCl 8 mg SL 4X/DAY 02/05/14 Duloxetine Hcl [Cymbalta] 60 mg PO QHS 02/05/14 FA/Mv,Ca,Iron,Min/Lycopene/Lut 1 each PO DAILY 02/05/14 [Centravites Tablet] Pregabalin [Lyrica] 150 mg PO TID PRN 02/05/14 Docusate Sodium [Colace] 100 mg PO DAILY 07/22/15 Baclofen 30 mg PO QHS PRN 07/23/15 Acetaminophen [Tylenol] 500 mg PO PRN PRN 05/20/18 Ascorbic Acid [Vitamin C] 1,000 mg PO DAILY 05/20/18 Aspirin E.C. [Ecotrin] 81 mg PO DAILY 05/20/18 Carbamazepine [Carbamazepine ER] 800 mg PO DAILY 05/20/18 Ibuprofen [Motrin] 400 mg PO PRN PRN 05/20/18 Methenamine Hippurate 1 gm PO BID 05/20/18 Quetiapine Fumarate [Quetiapine 300 mg PO QHS 05/20/18 Fumarate ER] Surgical History: appendectomy, cholecystectomy, hysterectomy, - - LLE amputation s/p MRSA infection, Carpal tunnel surgery. 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 Denies: Joint Pain, Joint Tenderness Skin: Denies: Rash, Wounds Neurological: Reports: Confusion. Denies: Focal weakness, Numbness, Tingling Psychiatric: Denies: Anxiety, Depression, Homicidal Ideations, Suicidal Ideations Hematologic/ Lymphatic: Denies: Easy Bruising, Easy Bleeding VTE Information - Inpt Only VTE Present on Admission: No VTE Mechan Device Prophylaxis: None VTE Pharm Prophylaxis ordered?: Yes Patient Problems: Active and Suspected Problems Acute encephalopathy (Acute) - Physical Exam General: Alert, Oriented x3, Cooperative HEENT: Atraumatic, PERRLA, EOMI, Normocephalic Neck: Supple, No JVD, Negative Carotid Bruits Lungs: Clear to auscultation, Normal air movement Cardiovascular: Regular rate, No murmurs Abdomen: Bowel Sounds Present, Soft, Non Tender, - - Left costovertebral angle tenderness Extremities: No edema, Capillary Refill Less than 3 Seconds Skin: No rashes, No breakdown Musculoskeletal: - - [id number] amputation of the left lower extremities. Neurological: Neuro grossly intact Psych/Mental Status: Normal Affect, Appropriate Vital Signs Temp Pulse Resp BP Pulse Ox 98.7 F 86 16 157/102 H 95 07/22/18 20:16 07/22/18 20:16 07/22/18 20:16 07/22/18 18:04 07/22/18 20:16 Oxygen Delivery Method Room Air Weight: 79.379 kg Body Mass Index (BMI) 30.0 Finger Stick Blood Glucose 87 Laboratory Tests Past 24 Hrs 07/22/18 07/22/18 07/22/18 19:07 19:07 19:10 WBC 12.9 H RBC 4.15 L Hgb 12.2 Hct 37.9 MCV 91.3 MCH 29.4 MCHC 32.2 RDW 12.8 RDW Differential 42.7 Plt Count 249 MPV 9.7 Immature Gran % (Auto) 0.300 Neut % (Auto) 70.2 H Lymph % (Auto) 20.2 [place] % (Auto) 7.2 Eos % (Auto) 1.6 Baso % (Auto) 0.5 Absolute Neuts (auto) 9.1 H Absolute Lymphs (auto) 2.61 Total Counted Not Reportable Sodium Potassium Chloride Carbon Dioxide Anion Gap BUN Creatinine Estim Creat Clear Calc Est GFR (MDRD) Af Amer Est GFR (MDRD) Non-Af BUN/Creatinine Ratio Glucose Lactic Acid Calcium Troponin I Urine Color Yellow Urine Clarity Clear Urine pH 5.0 Ur Specific [place] 1.020 Urine Protein Negative Urine Glucose (UA) Normal Urine Ketones Negative Urine Occult Blood 10 H Urine Nitrite Negative Urine Bilirubin Negative Urine Urobilinogen Normal Ur Leukocyte Esterase 100 H Urine RBC 0 SEEN Urine WBC 0-5 SEEN Ur Squamous Epith Cells 0-5 SEEN Urine Bacteria 0 SEEN Urine Mucus 0 SEEN Urine Opiates Screen NEGATIVE Urine Methadone Screen NEGATIVE Ur Barbiturates Screen NEGATIVE Carbamazepine Ur Phencyclidine Scrn NEGATIVE Ur Amphetamines Screen NEGATIVE U Methamphetamin-MDMA NEGATIVE U Benzodiazepines Scrn NEGATIVE Urine Cocaine Screen NEGATIVE U Cannabinoids Screen NEGATIVE Ur Drug Screen Comment Ethyl Alcohol 07/22/18 07/22/18 07/22/18 19:10 19:10 19:10 WBC RBC Hgb Hct MCV MCH MCHC RDW RDW Differential Plt Count MPV Immature Gran % (Auto) Neut % (Auto) Lymph % (Auto) [place] % (Auto) Eos % (Auto) Baso % (Auto) Absolute Neuts (auto) Absolute Lymphs (auto) Total Counted Sodium 139 Potassium 3.9 Chloride 104 Carbon Dioxide 28.0 Anion Gap 7 BUN 17 Creatinine 0.63 Estim Creat Clear Calc 88.15 Est GFR (MDRD) Af Amer 128 Est GFR (MDRD) Non-Af 105 BUN/Creatinine Ratio 27.2 H Glucose 102 Lactic Acid 1.0 Calcium 8.7 Troponin I < 0.015 Urine Color Urine Clarity Urine pH Ur Specific [place] Urine Protein Urine Glucose (UA) Urine Ketones Urine Occult Blood Urine Nitrite Urine Bilirubin Urine Urobilinogen Ur Leukocyte Esterase Urine RBC Urine WBC Ur Squamous Epith Cells Urine Bacteria Urine Mucus Urine Opiates Screen Urine Methadone Screen Ur Barbiturates Screen Carbamazepine Ur Phencyclidine Scrn Ur Amphetamines Screen U Methamphetamin-MDMA U Benzodiazepines Scrn Urine Cocaine Screen U Cannabinoids Screen Ur Drug Screen Comment Ethyl Alcohol 18.0 07/22/18 19:10 WBC RBC Hgb Hct MCV MCH MCHC RDW RDW Differential Plt Count MPV Immature Gran % (Auto) Neut % (Auto) Lymph % (Auto) [place] % (Auto) Eos % (Auto) Baso % (Auto) Absolute Neuts (auto) Absolute Lymphs (auto) Total Counted Sodium Potassium Chloride Carbon Dioxide Anion Gap BUN Creatinine Estim Creat Clear Calc Est GFR (MDRD) Af Amer Est GFR (MDRD) Non-Af BUN/Creatinine Ratio Glucose Lactic Acid Calcium Troponin I Urine Color Urine Clarity Urine pH Ur Specific [place] Urine Protein Urine Glucose (UA) Urine Ketones Urine Occult Blood Urine Nitrite Urine Bilirubin Urine Urobilinogen Ur Leukocyte Esterase Urine RBC Urine WBC Ur Squamous Epith Cells Urine Bacteria Urine Mucus Urine Opiates Screen Urine Methadone Screen Ur Barbiturates Screen Carbamazepine 14.1 H* Ur Phencyclidine Scrn Ur Amphetamines Screen U Methamphetamin-MDMA U Benzodiazepines Scrn Urine Cocaine Screen U Cannabinoids Screen Ur Drug Screen Comment Ethyl Alcohol POC Glucose 07/22/18 19:37 POC Glucose 87 Assessment/Plan All Active Problems UTI (urinary tract infection) (Acute) Sepsis (Resolved) Pyelonephritis (Acute) Acute encephalopathy (Acute) The patient is a 53 year old F with a significant history of multiple UTI; left [id number]-[id number]-[id number] amputation secondary to MRSA infection of the bone with a sequela of phantom pain; hyperlipidemia; anxiety; and seizure disorder who was brought to the emergency department because of confusion; also reports of urinary symptoms and found to have elevated Tegretol level consistent with likely acute toxic encephalopathy due to elevated Tegretol level; and with acute cystitis.. Acute toxic encephalopathy Her Tegretol at the level on admission was 14.1 and this could be contributing to her symptoms. We will hold her Tegretol at this time. Discussed with patient that upon discharge she should schedule an appointment and see her neurologist for medication adjustment. Blood cultures were ordered for the emergency department. Follow. Acute Pyelonephritis Patient noted to have a white blood count of 12.9; elevated leukocyte esterase; positive occult blood but with no bacteria seen and with no urine nitrites but with reported home fever (afebrile at the hospital); chills, nausea, vomiting; dysuria and burning with urination; and with left costovertebral angle tenderness. Review of records shows that patient had a presumptive E. coli on 07/03/2018. And on 07/16/2018 her urine culture showed mixed gram-positive and gram-negative. Urine culture was obtained on the morning of admission. Urine culture was also ordered on this admission. We will start patient on ceftriaxone. Because of urinary pain we will start patient on Pyridium. Patient is on home Subutex for phantom pain of the left leg. She reported that she wants something more for her bilateral flank pain. PRN oxycodone ordered. As needed Tylenol continued. PRN ibuprofen continued. IV Zofran and bowel protocol in the setting of narcotic administration. Chronic phantom pain of left lower extremities Subutex; Lyrica and Cymbalta continued Seizure disorder Tegretol on hold because of elevated levels Seizure precautions. Anxiety disorder Cymbalta and Seroquel continued DVT prophylaxis Subcutaneous Lovenox ordered. Code Visit OBSV E&M: 28653 Initial observation care L3
[2018-07-22 21:06] VITALS: BP 134/85; PULSE 90; RESP 18; TEMP 37.2; O2SAT 94
[2018-07-22 21:11] VITALS: BP 134/85; PULSE 94; RESP 18; TEMP 37.2; O2SAT 96
[2018-07-22 22:12] VITALS: BP 101/49; PULSE 86; RESP 16; TEMP 37.1; O2SAT 92; BMI 33.3
[2018-07-22 23:13] VITALS: PULSE 90
[2018-07-22] MEDS: oxyCODONE 5 MG Tablet PO (23:38)
[2018-07-22] MEDS: Ceftriaxone 1 GM/50 ML BAG IV (23:59)
[2018-07-23] VITALS (10 sets, daily range): BP systolic 97–125; BP diastolic 50–76; PULSE 71–87; RESP 16–18; TEMP 36.6–37.1; O2SAT 91–95
[2018-07-23] MEDS: DULoxetine Hcl 60 MG Capsule PO ×2 (00:02→21:06)
[2018-07-23] MEDS: QUEtiapine 100 MG Tablet 150 MG PO ×3 (00:02→21:06)
[2018-07-23] MEDS: Phenazopyridine 95 MG Tablet 190 MG PO ×4 (00:02→21:06)
[2018-07-23] MEDS: BUPRENORPHINE HCL 8 MG TAB.SUBL 12 MG SL (00:17)
--- NOTE | 2018-07-23 00:23 | NURSING ---
First initial tele strip documented was found to have a different patient's medical record number programmed into tele monitor.
[2018-07-23] MEDS: Ondansetron 4 MG/2 ML Vial IV ×2 (04:19→14:22)
[2018-07-23] MEDS: BUPRENORPHINE HCL 8 MG TAB.SUBL SL ×3 (05:16→17:28)
[2018-07-23 06:30] LABS: Hematocrit 35.5 % (37-47); Hemoglobin 11.3 g/dl (12.0-15.0); Mean Corp Hgb Conc 31.8 g/gl (32-36); Mean Corpuscular Hgb 29.6 pg (27.0-32.0); Mean Corpuscular Volume 92.9 fL (81-99); Platelet Count 243 K/mm3 (150-450); RBC Distribution Width CV 13.1 % (11.6-14.6); RBC Distribution Width SD 44.1 fl (35.1-43.9); Red Blood Count 3.82 M/mm3 (4.2-5.4); White Blood Count 9.6 K/mm3 (4.4-11.0)
[2018-07-23 06:35] LABS: Scan Indicated on CBC? Y/N NO
[2018-07-23 06:37] LABS: Anion Gap 5 (5-15); BUN 17 mg/dL (7-18); BUN/Creat Ratio 29.5 RATIO (10-20); Calcium,Total 8.1 mg/dL (8.5-10.1); Chloride 108 mmol/L (98-107); Creatinine, Serum 0.58 mg/dL (0.55-1.02); EST Glomerular Filtration Rate 116 mL/min (>60); Est Glom Filt Rate - Afr Amer 140 mL/min (>60); Estimated Creatinine Clearance 91.73 ml/min; Glucose 111 mg/dL (74-106); Potassium 3.9 mmol/L (3.5-5.1); Sodium Level 142 mmol/L (136-145)
[2018-07-23] MEDS: Pregabalin 75 MG Capsule 150 MG PO (08:02)
[2018-07-23] MEDS: Multivitamins,Ther W-Minerals Tablet 1 TABLET PO (08:02)
[2018-07-23] MEDS: Aspirin E.C. 81 MG Tablet PO (08:02)
--- NOTE | 2018-07-23 10:14 | PCM.PN.HOSP ---
Patient Problems: Active and Suspected Problems Acute encephalopathy (Acute) Subjective: Patient seen and examined. She was admitted with a complaint of confusion and is been managed for acute metabolic encephalopathy due to Tegretol toxicity has a Tegretol level was elevated. She is also being managed for pyelonephritis and is on IV ceftriaxone. She feels well. Confusion has resolved. She still complains of burning with urination. She denies any chest pain, fever chills, abdominal pain, diarrhea or vomiting. Review of systems otherwise negative. Labs and vitals reviewed. She states that her Tegretol level has been elevated to 14 in the past and she was asymptomatic so she thinks it was likely because of the kidney function that she had the confusion. Vitals/I&O's: Vital Signs Temp Pulse Resp BP Pulse Ox 97.9 F 82 16 97/50 L 91 07/23/18 07:47 07/23/18 07:47 07/23/18 07:47 07/23/18 07:47 07/23/18 09:07 Oxygen Delivery Method Room Air Weight: 188 lb 0.869 oz Body Mass Index (BMI) 33.3 Finger Stick Blood Glucose 87 Intake and Output for Last 24 Hours 07/21/18 07/22/18 07/23/18 23:59 23:59 23:59 Intake Total 17.5 / 17.5 289.3 / 289.3 Balance 17.5 / 17.5 289.3 / 289.3 General: Alert, Oriented x3, Cooperative, No apparent distress HEENT: Atraumatic, PERRLA, EOMI, Normocephalic Oral: Moist Mucosa Neck: Supple, No JVD, Negative Carotid Bruits Lungs: Clear to auscultation, Normal air movement, No rhonchi, No wheeze, No rales Cardiovascular: Regular rate, Regular Rhythm, Normal S1, Normal S2, No murmurs Abdomen: Bowel Sounds Present, Soft, Non Tender, Non-Distended, No Hepato-splenomegaly, - - mild left CVA tenderness Extremities: No clubbing, No cyanosis, No edema, Capillary Refill Less than 3 Seconds Skin: No rashes, No breakdown Musculoskeletal: No Tenderness to Palpation of Joints or Extremities, - - left Above knee amputation Lymphatic: No Cervical, Supraclavicular, or Inguinal Adenopathy Neurological: Cranial nerves II-XII grossly intact, Neuro grossly intact Psych/Mental Status: Normal Affect, Appropriate, Alert and oriented to time, place, person, mood and affect Laboratory Results 07/22/18 19:07: Urine Color Yellow, Urine Clarity Clear, Urine pH 5.0, Ur Specific [place] 1.020, Urine Protein Negative, Urine Glucose (UA) Normal, Urine Ketones Negative, Urine Occult Blood 10 H, Urine Nitrite Negative, Urine Bilirubin Negative, Urine Urobilinogen Normal, Ur Leukocyte Esterase 100 H, Urine RBC 0 SEEN, Urine WBC 0-5 SEEN, Ur Squamous Epith Cells 0-5 SEEN, Urine Bacteria 0 SEEN, Urine Mucus 0 SEEN 07/22/18 19:07: Urine Opiates Screen NEGATIVE, Urine Methadone Screen NEGATIVE, Ur Barbiturates Screen NEGATIVE, Ur Phencyclidine Scrn NEGATIVE, Ur Amphetamines Screen NEGATIVE, U Methamphetamin-MDMA NEGATIVE, U Benzodiazepines Scrn NEGATIVE, Urine Cocaine Screen NEGATIVE, U Cannabinoids Screen NEGATIVE, Ur Drug Screen Comment 07/22/18 19:10: WBC 12.9 H, RBC 4.15 L, Hgb 12.2, Hct 37.9, MCV 91.3, MCH 29.4, MCHC 32.2, RDW 12.8, RDW Differential 42.7, Plt Count 249, MPV 9.7, Immature Gran % (Auto) 0.300, Neut % (Auto) 70.2 H, Lymph % (Auto) 20.2, [place] % (Auto) 7.2, Eos % (Auto) 1.6, Baso % (Auto) 0.5, Absolute Neuts (auto) 9.1 H, Absolute Lymphs (auto) 2.61, Total Counted Not Reportable 07/22/18 19:10: Sodium 139, Potassium 3.9, Chloride 104, Carbon Dioxide 28.0, Anion Gap 7, BUN 17, Creatinine 0.63, Estim Creat Clear Calc 88.15, Est GFR (MDRD) Af Amer 128, Est GFR (MDRD) Non-Af 105, BUN/Creatinine Ratio 27.2 H, Glucose 102, Calcium 8.7, Troponin I < 0.015 07/22/18 19:10: Ethyl Alcohol 18.0 07/22/18 19:10: Lactic Acid 1.0 07/22/18 19:10: Carbamazepine 14.1 H* 07/22/18 19:37: POC Glucose 87 07/23/18 05:50: Sodium 142, Potassium 3.9, Chloride 108 H, Carbon Dioxide 29.0, Anion Gap 5, BUN 17, Creatinine 0.58, Estim Creat Clear Calc 91.73, Est GFR (MDRD) Af Amer 140, Est GFR (MDRD) Non-Af 116, BUN/Creatinine Ratio 29.5 H, Glucose 111 H, Calcium 8.1 L 07/23/18 05:50: WBC 9.6, RBC 3.82 L, Hgb 11.3 L, Hct 35.5 L, MCV 92.9, MCH 29.6, MCHC 31.8 L, RDW 13.1, RDW Differential 44.1 H, Plt Count 243, MPV 10.0 Diagnostic Data Abdomen/Pelvis CT 07/22/18 18:20 IMPRESSION: Moderate amount of stool throughout the colon and rectum. 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 No acute intracranial abnormality. Electronically Signed: Pablito العلي, at 20:23 EST Tel , Service support , Current Medications Acetaminophen (Tylenol) 650 mg PO Q4H PRN PRN PRN Reason: pain/fever Ascorbic Acid (Vitamin C) 1,000 mg PO DAILY [facility] Last Admin: 07/23/18 08:02 Dose: 81 mg Baclofen (Lioresal) 30 mg PO QHS PRN PRN Reason: MUSCLE SPASM Buprenorphine HCl (Buprenorphine Hcl) 12 mg SL DAILY@0000 [facility] Buprenorphine HCl (Buprenorphine Hcl) 8 mg SL TID@0600,1200,1800 [facility] Last Admin: 07/23/18 05:16 Dose: 8 mg Duloxetine HCl (Cymbalta) 60 mg PO QHS [facility] Last Admin: 07/23/18 00:02 Dose: 60 mg Enoxaparin Sodium (Lovenox) 40 mg SC DAILY@1000 [facility] Ceftriaxone Sodium (Rocephin) 1 gm in 50 mls @ 100 mls/hr IV Q24@2200 [facility] Last Admin: 07/22/18 23:59 Dose: 100 mls/hr Ibuprofen (Motrin) 400 mg PO Q6H PRN PRN PRN Reason: pain/fever Magnesium Hydroxide (Milk Of Magnesia) 30 ml PO DAILY PRN PRN Reason: Constipation Methenamine Hippurate (Hiprex) 1 gm PO BID [facility] Multivitamins/Minerals (Multivitamin With Minerals) [facility] Last Admin: 07/23/18 08:02 Dose: 1 tablet Ondansetron HCl (Zofran) 4 mg IV Q8H PRN PRN PRN Reason: NAUSEA/VOMITING Last Admin: 07/23/18 04:19 Dose: 4 mg Oxycodone HCl (Oxyir) 5 mg PO Q6H PRN PRN PRN Reason: SEVERE PAIN (6-04/22) Last Admin: 07/22/18 23:38 Dose: 5 mg Phenazopyridine HCl (Azo Standard) 190 mg PO TID [facility] Stop: 07/24/18 14:01 Last Admin: 07/23/18 05:16 Dose: 190 mg Pregabalin (Lyrica) 150 mg PO TID PRN PRN PRN Reason: PAIN Last Admin: 07/23/18 08:02 Dose: 150 mg Quetiapine Fumarate (Seroquel) 150 mg PO BID [facility] Last Admin: 07/23/18 00:02 Dose: 150 mg Senna/Docusate Sodium (Senokot-S, Joie-Colace) 2 tablet PO BID [facility] Sodium Chloride () 5 - 15 ml IV UD PRN PRN Reason: SALINE FLUSH Medical Necessity - Tobacco Use Smoking Status: Never smoker Assessment/Plan All Active Problems UTI (urinary tract infection) (Acute) Sepsis (Resolved) Pyelonephritis (Acute) Acute encephalopathy (Acute) 1. Acute metabolic encephalopathy due to Tegretol toxicity and acute pyelonephritis resolved. Now AO x [address] showed no acute intracranial pathology tegretol level was 14, wt upper limit being 12. Pateint says she has had such levels before in the past and it didnt cause any confusion Tegretol currently on hold. Will resume tomorrow. 2. Acute pyelonephritis has been treated for UTI recently; was still having dysuria wbc was elevated on admission at 12.9 and she had elevated leucocyte esterase in her urine, but no bacteria. wbc has trended down to 9.6 CT abdomen: normal right and left kidneys. Moderate stool burden has mild left costovertebral angle tendnerness urine culture pending on IV ceftriaxone on Pyridium for pain which is helping on IV zofran and oxycodone prn 3. Chronic phantom pain of LLE: on subutex, lyrica and cymbalta 4. LLE above knee amputation: stable. 5. Seizrue disorder: on Tegretol. Tegretol held as under 1. Seizure precautions 6. Anxiety disorder: on Cymbalta and Seroquel DVT prophylaxis: lovenox Code Visit Inpatient E&M: 74670 Subs Hosp L3
[2018-07-23] MEDS: Senna/Docusate Sodium 1 Tablet 2 TABLET PO ×2 (10:17→21:06)
[2018-07-23] MEDS: Enoxaparin 40 MG/0.4 ML Syringe SC (10:17)
[2018-07-23] MEDS: Ascorbic Acid 500 MG Tablet 1000 MG PO (10:18)
--- NOTE | 2018-07-23 10:19 | PN_ITS ---
Patient Problems: Active and Suspected Problems Acute encephalopathy (Acute) Subjective: Patient seen and examined. She was admitted with a complaint of confusion and is been managed for acute metabolic encephalopathy due to Tegretol toxicity has a Tegretol level was elevated. She is also being managed for pyelonephritis and is on IV ceftriaxone. She feels well. Confusion has resolved. She still complains of burning with urination. She denies any chest pain, fever chills, abdominal pain, diarrhea or vomiting. Review of systems otherwise negative. Labs and vitals reviewed. She states that her Tegretol level has been elevated to 14 in the past and she was asymptomatic so she thinks it was likely because of the kidney function that she had the confusion. Vitals/I&O's: Vital Signs Temp Pulse Resp BP Pulse Ox 97.9 F 82 16 97/50 L 91 07/23/18 07:47 07/23/18 07:47 07/23/18 07:47 07/23/18 07:47 07/23/18 09:07 Oxygen Delivery Method Room Air Weight: 188 lb 0.869 oz Body Mass Index (BMI) 33.3 Finger Stick Blood Glucose 87 Intake and Output for Last 24 Hours 07/21/18 07/22/18 07/23/18 23:59 23:59 23:59 Intake Total 17.5 / 17.5 289.3 / 289.3 Balance 17.5 / 17.5 289.3 / 289.3 General: Alert, Oriented x3, Cooperative, No apparent distress HEENT: Atraumatic, PERRLA, EOMI, Normocephalic Oral: Moist Mucosa Neck: Supple, No JVD, Negative Carotid Bruits Lungs: Clear to auscultation, Normal air movement, No rhonchi, No wheeze, No rales Cardiovascular: Regular rate, Regular Rhythm, Normal S1, Normal S2, No murmurs Abdomen: Bowel Sounds Present, Soft, Non Tender, Non-Distended, No Hepato- splenomegaly, - - mild left CVA tenderness Extremities: No clubbing, No cyanosis, No edema, Capillary Refill Less than 3 Seconds Skin: No rashes, No breakdown Musculoskeletal: No Tenderness to Palpation of Joints or Extremities, - - left Above knee amputation Lymphatic: No Cervical, Supraclavicular, or Inguinal Adenopathy Neurological: Cranial nerves II-XII grossly intact, Neuro grossly intact Psych/Mental Status: Normal Affect, Appropriate, Alert and oriented to time, place, person, mood and affect Laboratory Results 07/22/18 19:07: Urine Color Yellow, Urine Clarity Clear, Urine pH 5.0, Ur Specific Binger 1.020, Urine Protein Negative, Urine Glucose (UA) Normal, Urine Ketones Negative, Urine Occult Blood 10 H, Urine Nitrite Negative, Urine Bilirubin Negative, Urine Urobilinogen Normal, Ur Leukocyte Esterase 100 H, Urine RBC 0 SEEN, Urine WBC 0-5 SEEN, Ur Squamous Epith Cells 0-5 SEEN, Urine Bacteria 0 SEEN, Urine Mucus 0 SEEN 07/22/18 19:07: Urine Opiates Screen NEGATIVE, Urine Methadone Screen NEGATIVE, Ur Barbiturates Screen NEGATIVE, Ur Phencyclidine Scrn NEGATIVE, Ur Amphetamines Screen NEGATIVE, U Methamphetamin-MDMA NEGATIVE, U Benzodiazepines Scrn NEGATIVE, Urine Cocaine Screen NEGATIVE, U Cannabinoids Screen NEGATIVE, Ur Drug Screen Comment 07/22/18 19:10: WBC 12.9 H, RBC 4.15 L, Hgb 12.2, Hct 37.9, MCV 91.3, MCH 29.4, MCHC 32.2, RDW 12.8, RDW Differential 42.7, Plt Count 249, MPV 9.7, Immature Gran % (Auto) 0.300, Neut % (Auto) 70.2 H, Lymph % (Auto) 20.2, [place] % (Auto) 7.2, Eos % (Auto) 1.6, Baso % (Auto) 0.5, Absolute Neuts (auto) 9.1 H, Absolute Lymphs (auto) 2.61, Total Counted Not Reportable 07/22/18 19:10: Sodium 139, Potassium 3.9, Chloride 104, Carbon Dioxide 28.0, Anion Gap 7, BUN 17, Creatinine 0.63, Estim Creat Clear Calc 88.15, Est GFR (MDRD) Af Amer 128, Est GFR (MDRD) Non-Af 105, BUN/Creatinine Ratio 27.2 H, Gl ucose 102, Calcium 8.7, Troponin I < 0.015 07/22/18 19:10: Ethyl Alcohol 18.0 07/22/18 19:10: Lactic Acid 1.0 07/22/18 19:10: Carbamazepine 14.1 H* 07/22/18 19:37: POC Glucose 87 07/23/18 05:50: Sodium 142, Potassium 3.9, Chloride 108 H, Carbon Dioxide 29.0, Anion Gap 5, BUN 17, Creatinine 0.58, Estim Creat Clear Calc 91.73, Est GFR (MDRD) Af Amer 140, Est GFR (MDRD) Non-Af 116, BUN/Creatinine Ratio 29.5 H, Glucose 111 H, Calcium 8.1 L 07/23/18 05:50: WBC 9.6, RBC 3.82 L, Hgb 11.3 L, Hct 35.5 L, MCV 92.9, MCH 29.6, MCHC 31.8 L, RDW 13.1, RDW Differential 44.1 H, Plt Count 243, MPV 10.0 Diagnostic Data Abdomen/Pelvis CT 07/22/18 18:20 IMPRESSION: Moderate amount of stool throughout the colon and rectum. 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 No acute intracranial abnormality. Electronically Signed: Pablito العلي, at 20:23 EST Tel , Service support , Current Medications Acetaminophen (Tylenol) 650 mg PO Q4H PRN PRN PRN Reason: pain/fever Ascorbic Acid (Vitamin C) 1,000 mg PO DAILY [facility] Last Admin: 07/23/18 08:02 Dose: 81 mg Baclofen (Lioresal) 30 mg PO QHS PRN PRN Reason: MUSCLE SPASM Buprenorphine HCl (Buprenorphine Hcl) 12 mg SL DAILY@0000 [facility] Buprenorphine HCl (Buprenorphine Hcl) 8 mg SL TID@0600,1200,1800 [facility] Last Admin: 07/23/18 05:16 Dose: 8 mg Duloxetine HCl (Cymbalta) 60 mg PO QHS [facility] Last Admin: 07/23/18 00:02 Dose: 60 mg Enoxaparin Sodium (Lovenox) 40 mg SC DAILY@1000 [facility] Ceftriaxone Sodium (Rocephin) 1 gm in 50 mls @ 100 mls/hr IV Q24@2200 [facility] Last Admin: 07/22/18 23:59 Dose: 100 mls/hr Ibuprofen (Motrin) 400 mg PO Q6H PRN PRN PRN Reason: pain/fever Magnesium Hydroxide (Milk Of Magnesia) 30 ml PO DAILY PRN PRN Reason: Constipation Methenamine Hippurate (Hiprex) 1 gm PO BID [facility] Multivitamins/Minerals (Multivitamin With Minerals) [facility] Last Admin: 07/23/18 08:02 Dose: 1 tablet Ondansetron HCl (Zofran) 4 mg IV Q8H PRN PRN PRN Reason: NAUSEA/VOMITING Last Admin: 07/23/18 04:19 Dose: 4 mg Oxycodone HCl (Oxyir) 5 mg PO Q6H PRN PRN PRN Reason: SEVERE PAIN (6-1010) Last Admin: 07/22/18 23:38 Dose: 5 mg Phenazopyridine HCl (Azo Standard) 190 mg PO TID [facility] Stop: 07/24/18 14:01 Last Admin: 07/23/18 05:16 Dose: 190 mg Pregabalin (Lyrica) 150 mg PO TID PRN PRN PRN Reason: PAIN Last Admin: 07/23/18 08:02 Dose: 150 mg Quetiapine Fumarate (Seroquel) 150 mg PO BID [facility] Last Admin: 07/23/18 00:02 Dose: 150 mg Senna/Docusate Sodium (Senokot-S, Joie-Colace) 2 tablet PO BID [facility] Sodium Chloride () 5 - 15 ml IV UD PRN PRN Reason: SALINE FLUSH Medical Necessity - Tobacco Use Smoking Status: Never smoker Assessment/Plan All Active Problems UTI (urinary tract infection) (Acute) Sepsis (Resolved) Pyelonephritis (Acute) Acute encephalopathy (Acute) 1. Acute metabolic encephalopathy due to Tegretol toxicity and acute pyelonephritis * resolved. Now AO x 3 * brain CT showed no acute intracranial pathology * tegretol level was 14, [facility] upper limit being 12. Pateint says she has had such levels before in the past and it didnt cause any confusion * Tegretol currently on hold. Will resume tomorrow. * 2. Acute pyelonephritis * has been treated for UTI recently; was still having dysuria * wbc was elevated on admission at 12.9 and she had elevated leucocyte esterase in her urine, but no bacteria. * wbc has trended down to 9.6 * CT abdomen: normal right and left kidneys. Moderate stool burden * has mild left costovertebral angle tendnerness * urine culture pending * on IV ceftriaxone * on Pyridium for pain which is helping * on IV zofran and oxycodone prn * 3. Chronic phantom pain of LLE: on subutex, lyrica and cymbalta 4. LLE above knee amputation: stable. 5. Seizrue disorder: on Tegretol. Tegretol held as under 1. Seizure precautions 6. Anxiety disorder: on Cymbalta and Seroquel DVT prophylaxis: lovenox Code Visit Inpatient E&M: 21361 Subs Hosp L3
[2018-07-23] MEDS: METHENAMINE HIPPURATE 1 GM TABLET PO ×2 (10:42→21:07)
[2018-07-23] MEDS: 0.9% NaCl Peripheral Flush Adult/Peds IV ×2 (14:23→21:12)
[2018-07-23] MEDS: oxyCODONE 5 MG Tablet PO (17:28)
[2018-07-23] MEDS: Acetaminophen 325 MG Tablet 650 MG PO (17:28)
[2018-07-23] MEDS: Baclofen 10 MG Tablet 30 MG PO (21:05)
[2018-07-23] MEDS: Ceftriaxone 1 GM/50 ML BAG IV (21:06)
--- NOTE | 2018-07-23 22:41 | NURSING ---
CALLED INTO PT ROOM. pT VERY CONCERNED ABOUT NOT GETTING HER TEGRETOL . PT REQUESTING TO BE RESTARTED. PT EDUCATED ABOUT THAT HER LEVEL WAS 14 AND THAT IS TOXIC AND THAT IT IS WHY IT IS BEING HELD. PT REQUESTING TO HAVE LEVEL RECHECKED AND BE STARTED [facility]. DR GIBSON NOTIFIED AND LEVEL RESTARTED
[2018-07-24] VITALS (7 sets, daily range): BP systolic 126–136; BP diastolic 77–90; PULSE 64–85; RESP 17–18; TEMP 36.4–36.9; O2SAT 92–95
[2018-07-24] MEDS: BUPRENORPHINE HCL 8 MG TAB.SUBL 12 MG SL
[2018-07-24] MEDS: BUPRENORPHINE HCL 8 MG TAB.SUBL SL ×2 (05:34→11:34)
[2018-07-24] MEDS: Phenazopyridine 95 MG Tablet 190 MG PO (05:34)
[2018-07-24 06:29] LABS: Absolute Lymphocyte Count 2.49 X10^3/ul (0.83-4.51); Absolute Neutrophil Count 3.9 X10^3/uL (2.0-7.7); Basophil# 0.05 X10^3/uL; Basophil% 0.7 % (0-1); Eosinophil# 0.25 X10^3/uL; Eosinophils% 3.4 % (0-5); Hematocrit 38.8 % (37-47); Hemoglobin 12.2 g/dl (12.0-15.0); Lymphocyte # 2.49 X10^3/ul (4.0); Lymphocyte % 34.3 % (19-41); Mean Corp Hgb Conc 31.4 g/gl (32-36); Mean Corpuscular Hgb 29.8 pg (27.0-32.0); Mean Corpuscular Volume 94.9 fL (81-99); Mean Platelet Vol. 9.8 fl (6.2-12.0); Monocyte# 0.56 X10^3/uL; Monocyte% 7.7 % (0-10); Neutrophil % 53.6 % (47-70); Platelet Count 228 K/mm3 (150-450); RBC Distribution Width CV 13.1 % (11.6-14.6); RBC Distribution Width SD 45.3 fl (35.1-43.9); Red Blood Count 4.09 M/mm3 (4.2-5.4); White Blood Count 7.3 K/mm3 (4.4-11.0)
[2018-07-24 06:32] LABS: POSITIVE COUNT NO; POSITIVE DIFFERENTIAL NO; POSITIVE MORPHOLOGY NO
[2018-07-24 06:44] LABS: Anion Gap 7 (5-15); BUN 17 mg/dL (7-18); BUN/Creat Ratio 26.2 RATIO (10-20); Calcium,Total 8.4 mg/dL (8.5-10.1); Chloride 109 mmol/L (98-107); Creatinine, Serum 0.65 mg/dL (0.55-1.02); EST Glomerular Filtration Rate 101 mL/min (>60); Est Glom Filt Rate - Afr Amer 122 mL/min (>60); Estimated Creatinine Clearance 81.85 ml/min; Glucose 122 mg/dL (74-106); Potassium 3.7 mmol/L (3.5-5.1); Sodium Level 145 mmol/L (136-145)
[2018-07-24 07:10] LABS: Carbamazepine (Tegretol) 7.5 ug/mL (4.0-12.0)
[2018-07-24] MEDS: Ascorbic Acid 500 MG Tablet 1000 MG PO (09:38)
[2018-07-24] MEDS: QUEtiapine 100 MG Tablet 150 MG PO (09:39)
[2018-07-24] MEDS: Aspirin E.C. 81 MG Tablet PO (09:40)
[2018-07-24] MEDS: Multivitamins,Ther W-Minerals Tablet 1 TABLET PO (09:40)
[2018-07-24] MEDS: METHENAMINE HIPPURATE 1 GM TABLET PO (09:40)
[2018-07-24] MEDS: Enoxaparin 40 MG/0.4 ML Syringe SC (09:40)
--- NOTE | 2018-07-24 10:24 | DCINST_ITS ---
- Discharge Diagnoses Current Active Problems: Current Active and Chronic Problems Acute encephalopathy (Acute) You will use the following diet at home:: Cardiac Your food should be the consistency of: Regular Your liquids should be the consistency of: Regular/Thin Discharge Activity: Return to Normal Activity Weight Bearing Status: Weight bearing as tolerated Call your doctor if you observe: Fever of 101 or Higher, Inability to urinate Instructions: Understanding Urinary Tract Infections (UTIs) Additional Instructions: follow up with PCP within one week for recheck of carbamazepine level Allergies/Adverse Reactions: Allergies metoclopramide HCl [From Reglan] Allergy (Verified 07/22/18 18:04) Other SHAKING prochlorperazine edisylate [From Compazine] Allergy (Verified 07/22/18 18:04) Hives prochlorperazine maleate [From Compazine] Allergy (Verified 07/22/18 18:04) Hives promethazine HCl [From Phenergan] Allergy (Verified 07/22/18 18:04) Hives Medications to take at Discharge Buprenorphine HCl 8 mg SL 4X/DAY 02/05/14 Duloxetine Hcl [Cymbalta] 60 mg PO QHS 02/05/14 FA/Mv,Ca,Iron,Min/Lycopene/Lut [Centravites Tablet] 1 each PO DAILY 02/05/14 Pregabalin [Lyrica] 150 mg PO TID PRN 02/05/14 Docusate Sodium [Colace] 100 mg PO DAILY 07/22/15 Baclofen 30 mg PO QHS PRN 07/23/15 Acetaminophen [Tylenol] 500 mg PO PRN PRN 05/20/18 Ascorbic Acid [Vitamin C] 1,000 mg PO DAILY 05/20/18 Aspirin E.C. [Ecotrin] 81 mg PO DAILY 05/20/18 Carbamazepine [Carbamazepine ER] 800 mg PO DAILY 05/20/18 Ibuprofen [Motrin] 400 mg PO PRN PRN 05/20/18 Methenamine Hippurate 1 gm PO BID 05/20/18 Quetiapine Fumarate [Quetiapine Fumarate ER] 300 mg PO QHS 05/20/18 Cefdinir [Omnicef [equiv]] 300 mg PO Q12H #10 capsule 07/24/18 The following prescriptions were given: Cefdinir [Omnicef [equiv]] 300 mg PO Q12H #10 capsule Primary Care Physician: Harshad Karimi MD [Primary Care Provider] - Please follow up with your Primary Care Physician in: one week Test Results: Test results from this visit will be discussed in further detail at your follow- up appointment, if applicable. Proposed Discharge Date: 07/24/18
--- NOTE | 2018-07-24 10:25 | DS.PCM_ITS ---
Discharge Date and Diagnosis Date of Admission: 07/22/18 Date of Discharge: 07/24/18 - Primary Discharge Diagnosis Active and Suspected Problems Acute encephalopathy (Acute) UTI acute pyelonephritis - Secondary Discharge Diagnosis Chronic Problems Chronic pain syndrome (Chronic) Anxiety and depression (Chronic) Obesity (BMI 30.0-34.9) (Chronic) Seizure disorder (Chronic) Obesity (Chronic) S/P unilateral above knee amputation (Chronic) Hyperlipidemia (Chronic) Phantom limb syndrome (Chronic) Right sided weakness (Chronic) Cephalgia (Chronic) Hospital Course and Treatment Imaging Results: Diagnostic Data Abdomen/Pelvis CT 07/22/18 18:20 IMPRESSION: Moderate amount of stool throughout the colon and rectum. 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 No acute intracranial abnormality. 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 She was admitted with a complaint of confusion which started on the day of admission 07/22/2018. She had associated burning with urination and bilateral flank pain and she sent to urine sample for urinalysis after which her PCP was prescribed antibiotics based on the results of the urinalysis. Patient was however found sitting in the doorway of a neighbors house in the snow and was confused and did not know where her was. She was taken to the PCPs office and she was brought to the ED on the recommendation of the PCP. She was found to have elevated Tegretol level which was around 14 with upper limit of normal being about 12. Patient stated she had been very compliant with her Tegretol and had had levels around 14 in the past and did not cause any confusion. Head CT done was negative. When encephalopathy resolved, she complained of fever, chills and anorexia prior to her coming in. She was admitted and managed for acute metabolic encephalopathy due to medication and also UTI and pyelonephritis. Her Tegretol was held and s he was started on IV ceftriaxone for pyelonephritis. Urinalysis showed leukocyte esterase of 100 but no bacteria seen. Carbamazepine level came down to 7.5 and alcohol level was only 18. Urine toxicology was otherwise negative. Urine cultured E. coli and possible enterococcus. Patient remained stable, Tegretol was resumed and she was discharged home on 07/24/2018 with a prescription for p.o. Omnicef for 5 days. She is to follow-up with her primary care doctor. Patient seen and examined prior to discharge. She had no complaints and felt well. She was eager to go home. She denied any fever or chills, any cough or chest pain, shortness of breath, abdominal pain, diarrhea vomiting. Review of systems otherwise negative. Labs and vitals reviewed. Home medications reviewed and reconciled. o/e: Vital Signs Height 5 ft 3 in Weight: 188 lb 0.869 oz Weight in Pounds 188.1 lbs Pulse Ox 92 Temperature 98.5 F Pulse Rate 81 Respiratory Rate 18 Blood Pressure [BP] 124/76 Blood Pressure 126/86 Blood Pressure Position [BP] Semi-Fowlers Blood Pressure Position Semi-Fowlers [] General: Alert, Oriented x3, Cooperative, No apparent distress HEENT: Atraumatic, PERRLA, EOMI, Normocephalic Oral: Moist Mucosa Neck: Supple, No JVD, Negative Carotid Bruits Lungs: Clear to auscultation, Normal air movement, No rhonchi, No wheeze, No rales Cardiovascular: Regular rate, Regular Rhythm, Normal S1, Normal S2, No murmurs Abdomen: Bowel Sounds Present, Soft, Non Tender, Non-Distended, No Hepato- splenomegaly, - -left CVA tenderness has resolved Extremities: No clubbing, No cyanosis, No edema, Capillary Refill Less than 3 Seconds Skin: No rashes, No breakdown Musculoskeletal: No Tenderness to Palpation of Joints or Extremities, - - left Above knee amputation Lymphatic: No Cervical, Supraclavicular, or Inguinal Adenopathy Neurological: Cranial nerves II-XII grossly intact, Neuro grossly intact Psych/Mental Status: Normal Affect, Appropriate, Alert and oriented to time, place, person, mood and affect Plan as described above. - Physical Exam Vital Signs Temp Pulse Resp BP Pulse Ox 98.3 F 68 18 136/77 H 94 07/24/18 09:37 07/24/18 09:37 07/24/18 09:37 07/24/18 09:37 07/24/18 09:37 Oxygen Delivery Method Room Air Weight: 188 lb 0.869 oz Body Mass Index (BMI) 33.3 Finger Stick Blood Glucose 87 Intake and Output for Last 24 Hours 07/22/18 07/23/18 07/24/18 23:59 23:59 23:59 Intake Total 17.5 / 17.5 629.3 / 629.3 240 / 240 Balance 17.5 / 17.5 629.3 / 629.3 240 / 240 Laboratory Tests Past 24 Hrs 07/24/18 07/24/18 07/24/18 06:00 06:00 06:00 WBC 7.3 RBC 4.09 L Hgb 12.2 Hct 38.8 MCV 94.9 MCH 29.8 MCHC 31.4 L RDW 13.1 RDW Differential 45.3 H Plt Count 228 MPV 9.8 Immature Gran % (Auto) 0.300 Neut % (Auto) 53.6 Lymph % (Auto) 34.3 [place] % (Auto) 7.7 Eos % (Auto) 3.4 Baso % (Auto) 0.7 Absolute Neuts (auto) 3.9 Absolute Lymphs (auto) 2.49 Total Counted Not Reportable Sodium 145 Potassium 3.7 Chloride 109 H Carbon Dioxide 29.0 Anion Gap 7 BUN 17 Creatinine 0.65 Estim Creat Clear Calc 81.85 Est GFR (MDRD) Af Amer 122 Est GFR (MDRD) Non-Af 101 BUN/Creatinine Ratio 26.2 H Glucose 122 H Calcium 8.4 L Carbamazepine 7.5 Discharge Diet: Low fat/ Low Cholesterol Discharge Activity: Return to Normal Activity Weight Bearing Status: Weight bearing as tolerated Call your doctor if you observe: Fever of 101 or Higher, Inability to urinate Home Medications: Medications to take at Discharge Buprenorphine HCl 8 mg SL 4X/DAY 02/05/14 Duloxetine Hcl [Cymbalta] 60 mg PO QHS 02/05/14 FA/Mv,Ca,Iron,Min/Lycopene/Lut [Centravites Tablet] 1 each PO DAILY 02/05/14 Pregabalin [Lyrica] 150 mg PO TID PRN 02/05/14 Docusate Sodium [Colace] 100 mg PO DAILY 07/22/15 Baclofen 30 mg PO QHS PRN 07/23/15 Acetaminophen [Tylenol] 500 mg PO PRN PRN 05/20/18 Ascorbic Acid [Vitamin C] 1,000 mg PO DAILY 05/20/18 Aspirin E.C. [Ecotrin] 81 mg PO DAILY 05/20/18 Carbamazepine [Carbamazepine ER] 800 mg PO DAILY 05/20/18 Ibuprofen [Motrin] 400 mg PO PRN PRN 05/20/18 Methenamine Hippurate 1 gm PO BID 05/20/18 Quetiapine Fumarate [Quetiapine Fumarate ER] 300 mg PO QHS 05/20/18 Cefdinir [Omnicef [equiv]] 300 mg PO Q12H #10 capsule 07/24/18 Following Prescrptions Were Given to Patient: Cefdinir [Omnicef [equiv]] 300 mg PO Q12H #10 capsule Primary Care Physician: Harshad Karimi MD [Primary Care Provider] - Please follow up with your Primary Care Physician in: one week Patient Instructions: Understanding Urinary Tract Infections (UTIs) Disposition: Home Minutes spent on discharge:: 35 Patient Condition:: Stable Medical Necessity - Tobacco Use Smoking Status: Never smoker Meaningful Use Info Meaningful Use Diagnoses (Choose all that apply): None applicable Code Visit Inpatient E&M: 02882 Disch Hosp
== END 2018-07-24 10:24 | disposition home or self-care (01) ==
LOC: ED 18:32 → PCU 21:19
PROVIDERS: Admitting Provider Hospitalist; Emergency Provider Emergency Medicine; Family Provider Family Medicine; PCP Family Medicine; Referring Provider Hospitalist; Visit Provider Student in an Organized Health Care Education/Training Program
DX: G92 Toxic encephalopathy (principal); T42.1X5A Adverse effect of iminostilbenes, initial encounter; N10 Acute pyelonephritis; G89.4 Chronic pain syndrome; F41.9 Anxiety disorder, unspecified; G40.909 Epilepsy, unspecified, not intractable, without status epilepticus; Z79.899 Other long term (current) drug therapy; Z79.82 Long term (current) use of aspirin; Z89.612 Acquired absence of left leg above knee; Z86.14 Personal history of Methicillin resistant Staphylococcus aureus infection; E78.5 Hyperlipidemia, unspecified; F32.9 Major depressive disorder, single episode, unspecified; G54.6 Phantom limb syndrome with pain; E66.9 Obesity, unspecified; Z68.33 Body mass index [BMI] 33.0-33.9, adult; Z71.3 Dietary counseling and surveillance
CPT/HCPCS: 36415; 70450; 74176; 80048; 80156; 80307; 80320; 81001; 82962; 83605; 84484; 85025; 85027; 87040; 87086; 87088; 93005; 96365; 96366; 96372; 96375; 96376; 97802; 99218; 99282; J7030; A4216; G0378; G0480; J2405

== ENCOUNTER 2018-09-07 12:54 | Observation (INO) | payer OTHER, SELFPAY ==
[2018-07-22 22:12] VITALS: BMI 33.3
[2018-09-07] VITALS (7 sets, daily range): BP systolic 119–153; BP diastolic 69–100; PULSE 80–98; RESP 17–18; TEMP 36.8–37.6; O2SAT 93–100; BMI 32.1; BMI 32.4
[2018-09-07] MEDS: Ondansetron 4 MG/2 ML Vial IV ×2 (14:19→23:11)
[2018-09-07] MEDS: 0.9% Normal Saline 1,000 ML 1000 ML IV (14:19)
[2018-09-07 14:36] LABS: Absolute Lymphocyte Count 2.22 X10^3/ul (0.83-4.51); Absolute Neutrophil Count 5.8 X10^3/uL (2.0-7.7); Basophil# 0.08 X10^3/uL; Basophil% 0.9 % (0-1); Eosinophil# 0.33 X10^3/uL; Eosinophils% 3.7 % (0-5); Hematocrit 39.6 % (37-47); Hemoglobin 12.8 g/dl (12.0-15.0); Lymphocyte # 2.22 X10^3/ul (4.0); Lymphocyte % 24.9 % (19-41); Mean Corp Hgb Conc 32.3 g/gl (32-36); Mean Corpuscular Hgb 29.6 pg (27.0-32.0); Mean Corpuscular Volume 91.7 fL (81-99); Mean Platelet Vol. 9.6 fl (6.2-12.0); Monocyte# 0.52 X10^3/uL; Monocyte% 5.8 % (0-10); Neutrophil # 5.75 X10^3/uL (2.7-7.7); Neutrophil % 64.5 % (47-70); Platelet Count 274 K/mm3 (150-450); RBC Distribution Width CV 12.4 % (11.6-14.6); RBC Distribution Width SD 41.9 fl (35.1-43.9); Red Blood Count 4.32 M/mm3 (4.2-5.4); White Blood Count 8.9 K/mm3 (4.4-11.0)
[2018-09-07 14:37] LABS: POSITIVE COUNT NO; POSITIVE DIFFERENTIAL NO; POSITIVE MORPHOLOGY NO
--- NOTE | 2018-09-07 14:44 | ED.VISSUMM ---
- ER Visit Summary Date of Service: 09/07/18 Chief Complaint: Concern for UTI History of Present Illness: The patient is a 53 F presenting with concerns for UTI. She states that she was started on doxycycline on Friday for URI symptoms. Yesterday she started having feelings of shaky chills, vomiting, decreased urination. She has a history of recurrent UTIs and states this feels similar. She was concerned today because she began to feel delirious. She states when she has increasing confusion she typically requires admission and IV antibiotics. She complains of low back pain. She has had fever up to 101 at home. Physical Examination: Vitals are stable. Temperature 99.5. Alert no acute distress. HEENT exam is unremarkable. Neck is supple. Lungs are clear and equal bilaterally. Heart is regular rate and rhythm. Abdomen is soft nontender nondistended. Back: Bilateral CVA tenderness Extremities left AKA Skin is warm and dry. Remainder of exam is unremarkable. Emergency Department Course and Treatment: Patient was given IV fluids, Zofran. CBC unremarkable. Chemistries unremarkable. Urinalysis shows 25-50 white blood cells. Urine culture was sent. She was given Rocephin IV. Discussed with the hospitalist for admission. Disposition: Observation Impression: Pyelonephritis This note was generated with [employer] dictation software. It may contain incorrect words, spelling, and punctuation that were not noted in review of the chart prior to signing ED Disposition - Plan for ED Patient:
[2018-09-07 14:50] LABS: Anion Gap 6 (5-15); BUN 17 mg/dL (7-18); BUN/Creat Ratio 26.6 RATIO (10-20); Calcium,Total 8.6 mg/dL (8.5-10.1); Chloride 105 mmol/L (98-107); Creatinine, Serum 0.64 mg/dL (0.55-1.02); EST Glomerular Filtration Rate 103 mL/min (>60); Est Glom Filt Rate - Afr Amer 124 mL/min (>60); Estimated Creatinine Clearance 83.13 ml/min; Glucose 97 mg/dL (74-106); Potassium 4.2 mmol/L (3.5-5.1); Sodium Level 139 mmol/L (136-145)
[2018-09-07 14:58] LABS: Mucous, Urine 0 SEEN /hpf (<or=2+)
[2018-09-07 15:01] LABS: Color, Urine Yellow (Yellow); Glucose, Dipstick Normal (Normal); Ketone-Dipstick 5 mg/dl (Negative); Leukocyte Esterase-Dipstick 100 /ul (Negative); Nitrite-Dipstick Positive (Negative); Occult Blood-Urine 10 /ul (Negative); Protein-Dipstick 15 mg/dl (Negative); Urine Bilirubin Dipstick Negative (Negative); Urine Clarity Sl. Cloudy (Clear); Urine Urobilinogen Normal (Normal)
[2018-09-07 15:25] LABS: Bacteria 1+ /hpf (None Seen); Red Blood Cells-Urine 0-5 SEEN /hpf (0-5); Squamous Epithelial Cells - UA 0-5 SEEN /hpf (5-10); White Blood Cells 25-50 SEEN /hpf (0-5)
--- NOTE | 2018-09-07 16:03 | HP.PCM_ITS ---
Problem List (1) UTI (urinary tract infection) Status: Acute Qualifiers: Urinary tract infection type: acute cystitis Comment: E. Coli and Enterococcus (2) Chronic pain syndrome Status: Chronic (3) Anxiety and depression Status: Chronic (4) Obesity (BMI 30.0-34.9) Status: Chronic (5) Seizure disorder Status: Chronic (6) S/P unilateral above knee amputation Status: Chronic (7) Hyperlipidemia Status: Chronic Qualifiers: Hyperlipidemia type: unspecified (8) Phantom limb syndrome Status: Chronic History of Present Illness Date of Admission: 09/07/18 Chief Complaint: Dysuria, N/V/F/Chills The patient is a 53 y/o F w/ PMHx: Complex partial seizure disorder, Hyperlipidemia, Chronic Pain Syndrome w/ Phantom Limb Syndrome, Anxiety and Depression, Obesity, Hx MRSA Infection LLE s/p amputation, Frequent UTIs who presents to the [facility] ED on 09/07/18 with history of recent URI symptoms starting this past Friday with urgent care evaluation and diagnosis of sinusitis as sinus tenderness to palpation, congestion, rhinorrhea, facial pressure with onset fevers therefore initiated at that time on doxycycline with an onset on the Friday following a tract symptoms including dysuria, flank discomfort, nausea, vomiting, fever and chills with decreased oral intake prompting eventual ED carmela luation. Patient notes upon evaluation upper respiratory symptoms have markedly improved however she feels notably worse given nausea, vomiting, fever, chills and severe dysuria as well as flank pain she notes is very similar to her frequent presentation for urinary tract infection. Work-up in the ED included T 99.7, heart rate 95, BP 153/83, respiratory rate 18, 94% room air, CBC unremarkable with WBC 8.9, heme globin 12.8, platelet 274 without any shift, BMP normal, analysis with specific gravity 1.020, protein 15, ketone 5, occult blood 10, positive nitrite, 100 leukocyte esterase, WBC 25-50, urine bacteria 1+, carbamazepine level 15.5, UCx pending. In the ED patient biometric screener to Howie Ambrosio, normal saline. Past Medical History Past Medical History (Chronic Problems): Chronic Problems Chronic pain syndrome (Chronic) Anxiety and depression (Chronic) Obesity (BMI 30.0-34.9) (Chronic) Seizure disorder (Chronic) Obesity (Chronic) S/P unilateral above knee amputation (Chronic) Hyperlipidemia (Chronic) Phantom limb syndrome (Chronic) Right sided weakness (Chronic) Cephalgia (Chronic) Allergies metoclopramide HCl [From Reglan] Allergy (Verified 09/07/18 12:55) Other SHAKING prochlorperazine edisylate [From Compazine] Allergy (Verified 09/07/18 12:55) Hives prochlorperazine maleate [From Compazine] Allergy (Verified 09/07/18 12:55) Hives promethazine HCl [From Phenergan] Allergy (Verified 09/07/18 12:55) Hives Home Medications: Ambulatory Orders Medication Instructions Recorded Buprenorphine HCl 8 mg SL Q6H PRN PRN 02/05/14 Duloxetine Hcl [Cymbalta] 60 mg PO QHS 02/05/14 FA/Mv,Ca,Iron,Min/Lycopene/Lut 1 each PO DAILY 02/05/14 [Centravites Tablet] Pregabalin [Lyrica] 150 mg PO TID PRN 02/05/14 Acetaminophen [Tylenol] 500 mg PO PRN PRN 05/20/18 Ascorbic Acid [Vitamin C] 1,000 mg PO DAILY 05/20/18 Aspirin E.C. [Ecotrin] 81 mg PO DAILY 05/20/18 Ibuprofen [Motrin] 400 mg PO PRN PRN 05/20/18 Methenamine Hippurate 1 gm PO BID 05/20/18 Quetiapine Fumarate [Quetiapine 300 mg PO QHS 05/20/18 Fumarate ER] Baclofen [Lioresal] 10 mg PO PRN 09/07/18 Carbamazepine [Carbamazepine ER] 400 mg PO BID 09/07/18 Doxycycline Hyclate 10 mg PO BID 09/07/18 Surgical History: appendectomy, cholecystectomy, hysterectomy, - - LLE amputation s/p MRSA infection, Carpal tunnel surgery. 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, Depression FOOT CASTER History: No pertinent FOOT CASTER history Lives: Spouse/ Significant Other Smoking Status: Never smoker Tobacco Use: Non-smoker Alcohol: None Drugs: None - *Family History Maternal History Items: Hypertension Paternal History Items: Heart Disease - Father w/ first GA 40s., Hypertension Review of Systems Constitutional: Reports: Anorexia, Chills, Fever, Malaise, Weakness, Fatigue. Denies: Weight Change HEENT: Reports: Head Aches, Nasal Congestion, Post Nasal Drip, Sinus Congestion, Sinus Drainage, Sore Throat Cardiovascular: Denies: Chest Pain, Palpitations Respiratory: Reports: Cough. Denies: Shortness of Breath, Shortness of breath at rest, Shortness of breath upon exertion, Sputum production, Wheezing Gastrointestinal: Reports: Abdominal Pain, Nausea, Vomiting Genitourinary: Reports: Dysuria, Frequency Musculoskeletal: Reports: Back Pain. Denies: Joint Pain, Joint Tenderness Skin: Denies: Rash, Wounds Neurological: Denies: Numbness, Tingling, Focal weakness Psychiatric: Denies: Anxiety, Depression, Homicidal Ideations, Suicidal Ideations Hematologic/ Lymphatic: Denies: Easy Bruising, Easy Bleeding VTE Information - Inpt Only VTE Present on Admission: No VTE Mechan Device Prophylaxis: SCD's VTE Pharm Prophylaxis ordered?: Yes Subjective: Seated upright in the ED bed, fatigued appearing, notes ongoing dysuria. Objective: Physical Examination: General: awake, alert, oriented x 3 and cooperative, seated upright in the ED bed, stable appearing, fatigued. Skin: normal color, turgor, no icterus, cyanosis. HEENT: AT/NC, EOMI, PERRLA, moderately dry MM, no carotid bruits or JVD noted. Lungs: CTA bilaterally, moderate effort, mild decrease BL bases, no rales, ronchi or wheezing. Heart: Regular rate and rhythm; no gallop, rub audible. Abdomen: soft, obese, severe suprapubic TTP, moderate to severe L>R flank discomfort, ND, normal BS, no HSM. Extremities: no cyanosis, clubbing, s/p LLE AKA amputation. Neurological: patient awake, alert, oriented x 3; cognitive function intact; pupils equally reactive to light and accomodation; cranial nerves II-XII grossly normal, moving all 3 extremities, no focal deficits, strength moderately to severely globally decreased secondary to acute presentation. Psychiatric: affect appears fatigued, no acute evidence of depressive or anxiety feelings. - Physical Exam Vital Signs Temp Pulse Resp BP Pulse Ox 99.5 F H 82 18 123/90 H 95 09/07/18 14:32 09/07/18 14:32 09/07/18 14:32 09/07/18 14:32 09/07/18 14:32 Oxygen Delivery Method Room Air Weight: 181 lb Body Mass Index (BMI) 32.1 Finger Stick Blood Glucose 87 Laboratory Tests Past 24 Hrs 09/07/18 09/07/18 09/07/18 14:15 14:15 14:50 WBC 8.9 RBC 4.32 Hgb 12.8 Hct 39.6 MCV 91.7 MCH 29.6 MCHC 32.3 RDW 12.4 RDW Differential 41.9 Plt Count 274 MPV 9.6 Immature Gran % (Auto) 0.200 Neut % (Auto) 64.5 Lymph % (Auto) 24.9 [place] % (Auto) 5.8 Eos % (Auto) 3.7 Baso % (Auto) 0.9 Absolute Neuts (auto) 5.8 Absolute Lymphs (auto) 2.22 Total Counted Not Reportable Sodium 139 Potassium 4.2 Chloride 105 Carbon Dioxide 28.0 Anion Gap 6 BUN 17 Creatinine 0.64 Estim Creat Clear Calc 83.13 Est GFR (MDRD) Af Amer 124 Est GFR (MDRD) Non-Af 103 BUN/Creatinine Ratio 26.6 H Glucose 97 Calcium 8.6 Urine Color Yellow Urine Clarity Sl. Cloudy Urine pH 5.0 Ur Specific [place] 1.020 Urine Protein 15 H Urine Glucose (UA) Normal Urine Ketones 5 H Urine Occult Blood 10 H Urine Nitrite Positive H Urine Bilirubin Negative Urine Urobilinogen Normal Ur Leukocyte Esterase 100 H Urine RBC 0-5 SEEN Urine WBC 25-50 SEEN Ur Squamous Epith Cells 0-5 SEEN Urine Bacteria 1+ Urine Mucus 0 SEEN Carbamazepine 09/07/18 15:30 WBC RBC Hgb Hct MCV MCH MCHC RDW RDW Differential Plt Count MPV Immature Gran % (Auto) Neut % (Auto) Lymph % (Auto) [place] % (Auto) Eos % (Auto) Baso % (Auto) Absolute Neuts (auto) Absolute Lymphs (auto) Total Counted Sodium Potassium Chloride Carbon Dioxide Anion Gap BUN Creatinine Estim Creat Clear Calc Est GFR (MDRD) Af Amer Est GFR (MDRD) Non-Af BUN/Creatinine Ratio Glucose Calcium Urine Color Urine Clarity Urine pH Ur Specific [place] Urine Protein Urine Glucose (UA) Urine Ketones Urine Occult Blood Urine Nitrite Urine Bilirubin Urine Urobilinogen Ur Leukocyte Esterase Urine RBC Urine WBC Ur Squamous Epith Cells Urine Bacteria Urine Mucus Carbamazepine Pending Assessment/Plan All Active Problems UTI (urinary tract infection) (Acute) Sepsis (Resolved) Pyelonephritis (Acute) Acute encephalopathy (Acute) The patient is a 53 y/o F w/ PMHx: Complex partial seizure disorder, Hyperlipidemia, Chronic Pain Syndrome w/ Phantom Limb Syndrome, Anxiety and Depression, Obesity, Hx MRSA Infection LLE s/p amputation, Frequent UTIs who p resents to the [facility] ED on 09/07/18 with history of recent URI symptoms starting this past Friday with urgent care evaluation and diagnosis of sinusitis as sinus tenderness to palpation, congestion, rhinorrhea, facial pressure with onset fevers therefore initiated at that time on doxycycline with an onset on the Friday following a tract symptoms including dysuria, flank discomfort, nausea, vomiting, fever and chills with decreased oral intake prompting eventual ED evaluation. (1) Acute Complicated Urinary Tract Infection: Given nausea, emesis, fever chills and severe dysuria with history of prior resistant UTIs, will admit to MS, UA concerning, UCx pending, prior cultures sensitive to rocephin, will admit to MS, continue IVFs, monitor I/Os, continue IV Rocephin w/ transition as able pending sensitivities and speciation. Bld cx x 2 obtained in the ED. Infectious Disease consulted who has been following patient. (2) Supratherapeutic Tegretol Levels: Admission to level 15.5, will hold, repeat level in a.m., noted prior admission with Tegretol toxicity therefore dose may need to be readjusted again. (3) Phantom limb pain syndrome: Will continue home subutex or equivalent regimen per pharmacy, lyrica and baclofen home regimen. (4) Complex partial seizure history: As noted above Tegretol level subtherapeutic, holding, repeat level in AM. (5) Obesity: Weight loss and lifestyle changes encouraged. (6) Anxiety and Depression: Maintain on home cymbalta, seroquel regimen. (7) Hyperlipidemia: Not on regimen, noted history. (8) DVT prophylaxis: SCDs, lovenox. Code Visit OBSV E&M: 16393 Initial observation care L3
--- NOTE | 2018-09-07 16:08 | NURSING ---
MED SURG OBS PYELONEPHRITIS WHITE
[2018-09-07] MEDS: Ceftriaxone 1 GM/50 ML BAG IV (16:14)
[2018-09-07 16:21] LABS: Carbamazepine (Tegretol) 15.5 ug/mL (4.0-12.0)
--- NOTE | 2018-09-07 16:24 | ED.RN ---
critical carbamazepine level 15.[address] Perkins notified, no new orders given.
[2018-09-07 17:25] LABS: Magnesium 2.1 mg/dL (1.6-2.6)
[2018-09-07] MEDS: BUPRENORPHINE HCL 8 MG TAB.SUBL SL ×2 (17:49→23:05)
[2018-09-07] MEDS: BUPRENORPHINE HCL 8 MG TAB.SUBL 4 MG SL (17:50)
[2018-09-07] MEDS: 0.9% Normal Saline 1,000 ML 125 ML IV (18:59)
[2018-09-07] MEDS: Phenazopyridine 95 MG Tablet 190 MG PO (20:25)
[2018-09-07] MEDS: QUEtiapine 100 MG Tablet 300 MG PO (20:32)
[2018-09-07] MEDS: METHENAMINE HIPPURATE 1 GM TABLET PO (20:32)
[2018-09-07] MEDS: DULoxetine Hcl 60 MG Capsule PO (20:32)
[2018-09-07] MEDS: Pregabalin 75 MG Capsule 150 MG PO (20:47)
[2018-09-07] MEDS: 0.9% NaCl Peripheral Flush Adult/Peds IV (23:11)
[2018-09-08] VITALS (7 sets, daily range): BP systolic 115–149; BP diastolic 61–100; PULSE 80–102; RESP 16–18; TEMP 36.8–37.9; O2SAT 92–98
[2018-09-08] MEDS: 0.9% Normal Saline 1,000 ML 125 ML IV (02:44)
[2018-09-08] MEDS: Pregabalin 75 MG Capsule 150 MG PO ×2 (05:51→16:05)
[2018-09-08] MEDS: Phenazopyridine 95 MG Tablet 190 MG PO ×3 (05:51→21:12)
[2018-09-08] MEDS: BUPRENORPHINE HCL 8 MG TAB.SUBL SL ×4 (05:51→23:35)
[2018-09-08 06:15] LABS: Absolute Lymphocyte Count 3.17 X10^3/ul (0.83-4.51); Absolute Neutrophil Count 3.6 X10^3/uL (2.0-7.7); Basophil# 0.06 X10^3/uL; Basophil% 0.7 % (0-1); Eosinophil# 0.35 X10^3/uL; Eosinophils% 4.4 % (0-5); Hematocrit 35.8 % (37-47); Hemoglobin 11.2 g/dl (12.0-15.0); Lymphocyte # 3.17 X10^3/ul (4.0); Lymphocyte % 39.6 % (19-41); Mean Corp Hgb Conc 31.3 g/gl (32-36); Mean Corpuscular Hgb 29.9 pg (27.0-32.0); Mean Corpuscular Volume 95.7 fL (81-99); Mean Platelet Vol. 9.6 fl (6.2-12.0); Monocyte# 0.79 X10^3/uL; Monocyte% 9.9 % (0-10); Neutrophil # 3.63 X10^3/uL (2.7-7.7); Neutrophil % 45.3 % (47-70); Platelet Count 239 K/mm3 (150-450); RBC Distribution Width CV 12.3 % (11.6-14.6); RBC Distribution Width SD 41.5 fl (35.1-43.9); Red Blood Count 3.74 M/mm3 (4.2-5.4)
[2018-09-08 06:22] LABS: POSITIVE COUNT NO; POSITIVE DIFFERENTIAL NO; POSITIVE MORPHOLOGY NO
[2018-09-08 06:48] LABS: Carbamazepine (Tegretol) 10.8 ug/mL (4.0-12.0)
[2018-09-08] MEDS: Ondansetron 4 MG/2 ML Vial IV (06:54)
[2018-09-08] MEDS: 0.9% NaCl Peripheral Flush Adult/Peds IV ×2 (06:54→14:13)
[2018-09-08 07:37] LABS: Anion Gap 8 (5-15); BUN 17 mg/dL (7-18); BUN/Creat Ratio 38.7 RATIO (10-20); Chloride 113 mmol/L (98-107); Creatinine, Serum 0.44 mg/dL (0.55-1.02); EST Glomerular Filtration Rate 159 mL/min (>60); Est Glom Filt Rate - Afr Amer 192 mL/min (>60); Glucose 106 mg/dL (74-106); Potassium 4.3 mmol/L (3.5-5.1); Sodium Level 146 mmol/L (136-145)
--- NOTE | 2018-09-08 08:23 | PN_ITS ---
Subjective: Ms Zuniga is a 53 YO female with a PMH of complex partial seizure disorder, hyperlipidemia, nephrolithiasis, Chronic pain syndrome with phantom limb syndrome on buprenorphine 8 mg sublingual every 6 hours and 4 mg sublingual as needed, anxiety/depression, obesity, history of MRSA infection left lower extremity (S/P LLE amputation at the hip) and frequent UTI's who presented to the ED at [facility] on 09/07/2018 complaining of sinus tenderness, nasal congestion, rhinorrhea, facial pressure and fevers. She had been seen at an urgent care on 09/04/2018 and been diagnosed with sinusitis and placed on doxycycline. She additionally complained that on 09/06/2018 she developed dysuria, flank discomfort, nausea/vomiting and fever(101)/chills. Vital signs in the emergency department were temp 99.7, heart rate 95, blood pressure 153/83, respiratory rate 18 and she was 94% saturated on room air. CBC was normal. BMP was normal. A urine clean catch had 25-50 WBCs per high-power field with 1+ bacteria. Tegretol level was increased at 15.5. She was admitted to the hospital with a diagnosis of acute complicated urinary tract infection and placed on Rocephin. Dr. Schneider was placed on consult. No blood cultures were ordered. No lactic acid was ordered. This patient has had 10 urine cultures in the past 10 months, none of them straight cath's.....all random clean catches. She tells me that she has never had a catheter. She on 1 occasion grew and E. Coli ESBL. She has also grown Enteroccocus in the past. She is being followed as an OP by Dr. Schneider and is on Methenamine. She tells be that sometime at night she has to strain to urinate. All events the past 24 hours been reviewed. T-max was 99.7 at admission and she has been afebrile since 4 PM yesterday afternoon. CBC again today shows a normal WBC with no left shift. Tegretol level is now 10.8. She continues to have some dysuria but denies N/V/D/abd pain. No cough and the nasal congestion and sinus pain have resolved. - Physical Exam General: Alert, Oriented x3, Cooperative, No apparent distress, Well developed, Well nourished HEENT: Atraumatic, PERRLA, EOMI, Normocephalic Oral: Dry Mucosa Neck: Supple, No JVD, Negative Carotid Bruits, No Nodes, No Nuchal Rigidity, Trachea Midline Lungs: Clear to auscultation, Normal air movement, No rhonchi, No wheeze, No rales Cardiovascular: Regular rate, Regular Rhythm, Normal S1, Normal S2, No murmurs, No rub noted, No Gallop Abdomen: Bowel Sounds Present, Soft, Non Tender, Non-Distended, - - no suprapu bic tenderness Extremities: No clubbing, No cyanosis, No edema, - - The LLE is amputated at the hip......no open wounds Skin: No rashes, No breakdown Neurological: - - she has aleft facial droop that she has had since she was a child Psych/Mental Status: Normal Affect, Appropriate Vital Signs Temp Pulse Resp BP Pulse Ox 98.2 F 80 16 124/68 H 98 09/08/18 02:45 09/08/18 02:45 09/08/18 02:45 09/08/18 02:45 09/08/18 02:45 Oxygen Delivery Method Room Air Weight: 183 lb Body Mass Index (BMI) 32.4 Finger Stick Blood Glucose 87 Intake and Output for Last 24 Hours 09/06/18 09/07/18 09/08/18 23:59 23:59 23:59 Intake Total 1731 / 1731 1223 / 1223 Balance 1731 / 1731 1223 / 1223 Laboratory Tests Past 24 Hrs 09/07/18 09/07/18 09/07/18 14:15 14:15 14:15 WBC 8.9 RBC 4.32 Hgb 12.8 Hct 39.6 MCV 91.7 MCH 29.6 MCHC 32.3 RDW 12.4 RDW Differential 41.9 Plt Count 274 MPV 9.6 Immature Gran % (Auto) 0.200 Neut % (Auto) 64.5 Lymph % (Auto) 24.9 [place] % (Auto) 5.8 Eos % (Auto) 3.7 Baso % (Auto) 0.9 Absolute Neuts (auto) 5.8 Absolute Lymphs (auto) 2.22 Total Counted Not Reportable Sodium 139 Potassium 4.2 Chloride 105 Carbon Dioxide 28.0 Anion Gap 6 BUN 17 Creatinine 0.64 Estim Creat Clear Calc 83.13 Est GFR (MDRD) Af Amer 124 Est GFR (MDRD) Non-Af 103 BUN/Creatinine Ratio 26.6 H Glucose 97 Calcium 8.6 Magnesium 2.1 Urine Color Urine Clarity Urine pH Ur Specific [place] Urine Protein Urine Glucose (UA) Urine Ketones Urine Occult Blood Urine Nitrite Urine Bilirubin Urine Urobilinogen Ur Leukocyte Esterase Urine RBC Urine WBC Ur Squamous Epith Cells Urine Bacteria Urine Mucus Carbamazepine 09/07/18 09/07/18 09/08/18 14:50 15:30 05:54 WBC 8.0 RBC 3.74 L Hgb 11.2 L Hct 35.8 L MCV 95.7 MCH 29.9 MCHC 31.3 L RDW 12.3 RDW Differential 41.5 Plt Count 239 MPV 9.6 Immature Gran % (Auto) 0.100 Neut % (Auto) 45.3 L Lymph % (Auto) 39.6 [place] % (Auto) 9.9 Eos % (Auto) 4.4 Baso % (Auto) 0.7 Absolute Neuts (auto) 3.6 Absolute Lymphs (auto) 3.17 Total Counted Not Reportable Sodium Potassium Chloride Carbon Dioxide Anion Gap BUN Creatinine Estim Creat Clear Calc Est GFR (MDRD) Af Amer Est GFR (MDRD) Non-Af BUN/Creatinine Ratio Glucose Calcium Magnesium Urine Color Yellow Urine Clarity Sl. Cloudy Urine pH 5.0 Ur Specific [place] 1.020 Urine Protein 15 H Urine Glucose (UA) Normal Urine Ketones 5 H Urine Occult Blood 10 H Urine Nitrite Positive H Urine Bilirubin Negative Urine Urobilinogen Normal Ur Leukocyte Esterase 100 H Urine RBC 0-5 SEEN Urine WBC 25-50 SEEN Ur Squamous Epith Cells 0-5 SEEN Urine Bacteria 1+ Urine Mucus 0 SEEN Carbamazepine 15.5 H* 09/08/18 09/08/18 05:54 05:54 WBC RBC Hgb Hct MCV MCH MCHC RDW RDW Differential Plt Count MPV Immature Gran % (Auto) Neut % (Auto) Lymph % (Auto) [place] % (Auto) Eos % (Auto) Baso % (Auto) Absolute Neuts (auto) Absolute Lymphs (auto) Total Counted Sodium 146 H Potassium 4.3 Chloride 113 H Carbon Dioxide 25.0 Anion Gap 8 BUN 17 Creatinine 0.44 L Estim Creat Clear Calc 115.60 Est GFR (MDRD) Af Amer 192 Est GFR (MDRD) Non-Af 159 BUN/Creatinine Ratio 38.7 H Glucose 106 Calcium 8.0 L Magnesium Urine Color Urine Clarity Urine pH Ur Specific [place] Urine Protein Urine Glucose (UA) Urine Ketones Urine Occult Blood Urine Nitrite Urine Bilirubin Urine Urobilinogen Ur Leukocyte Esterase Urine RBC Urine WBC Ur Squamous Epith Cells Urine Bacteria Urine Mucus Carbamazepine 10.8 Medical Necessity - Tobacco Use Smoking Status: Never smoker Tobacco Use: Non-smoker Assessment/Plan All Active Problems UTI (urinary tract infection) (Acute) Sepsis (Resolved) Pyelonephritis (Acute) Acute encephalopathy (Acute) Impressions 1. acute complicated UTI with a hx of frequent UTI's over the past year. On buprenorphine, Lyrica and Seroquel, all of which cause urine retention. Also has a history of nephrolithiasis. Urine cultures in the past have grown Enterococcus faecalis and E. coli-1 of the E. coli infections was due to an ESBL that is also resistant to jessi quinolones. It was sensitive to Zosyn. Will discuss with Dr. Schneider choice of antibiotics prior to changing anything since she is feeling better. 2. 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 3. History of nephrolithiasis 4. Chronic pain syndrome on buprenorphine secondary to phantom limb pain. She follows with a Dr. Ye and is considering a nerve ablation for pain control. 5. Obesity 6. Anxiety/depression 7. Hyperlipidemia 8. Complex partial seizure disorder-on Tegretol Straight cath for UA now and send for culture Blood cultures not draw at admission and now she is afebrile so will not order at this time Consult urologist, Dr. Edilia Herrmann. Restart Tegretol CT of the abd and pelvis was done in July 2018 and there were no stones mentioned. The right and the left kidneys appeared normal at that time. Continue the Rocephin for now and await Dr. Schneider's consult Code Visit Inpatient E&M: 30242 [facility] Hosp L3
[2018-09-08] MEDS: Aspirin E.C. 81 MG Tablet PO (09:10)
--- NOTE | 2018-09-08 09:36 | US_ITS ---
STUDY: RENAL ULTRASOUND - COMPLETE REASON FOR EXAM: Female, 53 years old. Recurrent UTI. TECHNIQUE: Ultrasound evaluation of the kidneys was performed with real-time and static argueta-scale imaging. COMPARISON: CT the abdomen and pelvis, July 22, 2018. Renal ultrasound, May 21, 2018. FINDINGS: RIGHT KIDNEY: Normal location of the right kidney, which is normal in size. The right kidney measures 10.8 cm. There is a normal cortex of the right kidney. The renal cortex measures 1.9 cm. There is no right renal mass or cyst. There are no right renal calculi. There is an extra-renal pelvis of the right kidney. There is no distention of the renal calyces. DISTAL RIGHT URETER: There is non-visualization of the distal right ureter. There is no demonstrated right ureterovesical junction calculus. There is a visualized right ureteral jet. LEFT KIDNEY: Normal location of the left kidney, which is normal in size. The left kidney measures 10.9 cm. There is a normal cortex of the left kidney. The renal cortex measures 2.2 cm. There is no left renal mass or cyst. There are no left renal calculi. There is no left hydronephrosis. DISTAL LEFT URETER: There is non-visualization of the distal left ureter. There is no demonstrated left ureterovesical junction calculus. There is a visualized left ureteral jet. BLADDER: The distended urinary bladder has a volume of 116 ml. There is a normal wall thickness of the distended urinary bladder. There is no demonstrated mass within the urinary bladder. There are no demonstrated bladder calculi. US/Kidney and Bladder IMPRESSION: Normal ultrasound of the kidneys and urinary bladder. Electronically Signed: Jc Lovett DO at 16:16 EST Tel [phone], Service support ,
[2018-09-08] MEDS: Enoxaparin 40 MG/0.4 ML Syringe SC (09:54)
[2018-09-08] MEDS: METHENAMINE HIPPURATE 1 GM TABLET PO ×2 (09:54→21:12)
[2018-09-08] MEDS: Ceftriaxone 1 GM/50 ML BAG IV (09:54)
[2018-09-08] MEDS: Ascorbic Acid 500 MG Tablet 1000 MG PO (09:54)
[2018-09-08 09:58] LABS: Bacteria 0 SEEN /hpf (None Seen); Mucous, Urine 0 SEEN /hpf (<or=2+); Red Blood Cells-Urine 0 SEEN /hpf (0-5); Squamous Epithelial Cells - UA 0 SEEN /hpf (5-10); White Blood Cells 0 SEEN /hpf (0-5)
[2018-09-08 10:00] LABS: Color, Urine Amber (Yellow); Glucose, Dipstick Normal (Normal); Ketone-Dipstick Negative (Negative); Leukocyte Esterase-Dipstick Negative /ul (Negative); Nitrite-Dipstick Positive (Negative); Occult Blood-Urine Negative /ul (Negative); Protein-Dipstick Negative (Negative); Specific Gravity, Urine 1.015 (1.002-1.030); Urine Clarity Clear (Clear); Urine Urobilinogen 4 mg/dl (Normal)
[2018-09-08 10:02] LABS: Urine Bilirubin Dipstick 3 mg/dL (Negative)
--- NOTE | 2018-09-08 11:14 | PCM.HP.ID ---
Problem List (1) Recurrent UTI Status: Acute Reason for Consult: uti Consulted by: Dr. Quiroz History of Present Illness: The patient is a 53 year old F with recurrent uti who presented 09/07 with one day of fever, chills, abd pain, dysuria, nausea; sx similar to past uti. Recently came back from trip to [place]. No recent abx. Takes methenamine with vit C for prophylaxis. Came to ED, admitted on ceftriaxone, feeling better, but sx not resolved completely. Full ROS performed and neg except as noted above. - Medical History Past Medical History (Chronic Problems): Chronic Problems Chronic pain syndrome (Chronic) Anxiety and depression (Chronic) Obesity (BMI 30.0-34.9) (Chronic) Seizure disorder (Chronic) Obesity (Chronic) S/P unilateral above knee amputation (Chronic) Hyperlipidemia (Chronic) Phantom limb syndrome (Chronic) Right sided weakness (Chronic) Cephalgia (Chronic) Allergies/Adverse Reactions: Allergies metoclopramide HCl [From Reglan] Allergy (Verified 09/07/18 16:20) shaking SHAKING prochlorperazine edisylate [From Compazine] Allergy (Verified 09/07/18 12:55) Hives prochlorperazine maleate [From Compazine] Allergy (Verified 09/07/18 12:55) Hives promethazine HCl [From Phenergan] Allergy (Verified 09/07/18 12:55) Hives Home Medications: Ambulatory Orders Medication Instructions Recorded Buprenorphine HCl 8 mg SL Q6H PRN PRN 02/05/14 Duloxetine Hcl [Cymbalta] 60 mg PO QHS 02/05/14 FA/Mv,Ca,Iron,Min/Lycopene/Lut 1 each PO DAILY 02/05/14 [Centravites Tablet] Pregabalin [Lyrica] 150 mg PO TID PRN 02/05/14 Acetaminophen [Tylenol] 500 mg PO PRN PRN 05/20/18 Ascorbic Acid [Vitamin C] 1,000 mg PO DAILY 05/20/18 Aspirin E.C. [Ecotrin] 81 mg PO DAILY 05/20/18 Ibuprofen [Motrin] 400 mg PO PRN PRN 05/20/18 Methenamine Hippurate 1 gm PO BID 05/20/18 Quetiapine Fumarate [Quetiapine 300 mg PO QHS 05/20/18 Fumarate ER] Baclofen [Lioresal] 10 mg PO Q6H PRN PRN 09/07/18 Carbamazepine [Carbamazepine ER] 400 mg PO BID 09/07/18 Doxycycline Hyclate 10 mg PO BID 09/07/18 - Social History Tobacco Use: non-smoker Vital Signs Temp Pulse Resp BP Pulse Ox 98.7 F 80 18 119/61 92 09/08/18 09:04 09/08/18 09:04 09/08/18 09:04 09/08/18 09:04 09/08/18 09:04 Oxygen Delivery Method Room Air Weight: 83.007 kg Body Mass Index (BMI) 32.4 Finger Stick Blood Glucose 87 Laboratory Tests Past 24 Hrs 09/07/18 09/07/18 09/07/18 14:15 14:15 14:15 WBC 8.9 RBC 4.32 Hgb 12.8 Hct 39.6 MCV 91.7 MCH 29.6 MCHC 32.3 RDW 12.4 RDW Differential 41.9 Plt Count 274 MPV 9.6 Immature Gran % (Auto) 0.200 Neut % (Auto) 64.5 Lymph % (Auto) 24.9 [place] % (Auto) 5.8 Eos % (Auto) 3.7 Baso % (Auto) 0.9 Absolute Neuts (auto) 5.8 Absolute Lymphs (auto) 2.22 Total Counted Not Reportable Sodium 139 Potassium 4.2 Chloride 105 Carbon Dioxide 28.0 Anion Gap 6 BUN 17 Creatinine 0.64 Estim Creat Clear Calc 83.13 Est GFR (MDRD) Af Amer 124 Est GFR (MDRD) Non-Af 103 BUN/Creatinine Ratio 26.6 H Glucose 97 Calcium 8.6 Magnesium 2.1 Urine Color Urine Clarity Urine pH Ur Specific [place] Urine Protein Urine Glucose (UA) Urine Ketones Urine Occult Blood Urine Nitrite Urine Bilirubin Urine Urobilinogen Ur Leukocyte Esterase Urine RBC Urine WBC Ur Squamous Epith Cells Urine Bacteria Urine Mucus Carbamazepine 09/07/18 09/07/18 09/08/18 14:50 15:30 05:54 WBC 8.0 RBC 3.74 L Hgb 11.2 L Hct 35.8 L MCV 95.7 MCH 29.9 MCHC 31.3 L RDW 12.3 RDW Differential 41.5 Plt Count 239 MPV 9.6 Immature Gran % (Auto) 0.100 Neut % (Auto) 45.3 L Lymph % (Auto) 39.6 [place] % (Auto) 9.9 Eos % (Auto) 4.4 Baso % (Auto) 0.7 Absolute Neuts (auto) 3.6 Absolute Lymphs (auto) 3.17 Total Counted Not Reportable Sodium Potassium Chloride Carbon Dioxide Anion Gap BUN Creatinine Estim Creat Clear Calc Est GFR (MDRD) Af Amer Est GFR (MDRD) Non-Af BUN/Creatinine Ratio Glucose Calcium Magnesium Urine Color Yellow Urine Clarity Sl. Cloudy Urine pH 5.0 Ur Specific [place] 1.020 Urine Protein 15 H Urine Glucose (UA) Normal Urine Ketones 5 H Urine Occult Blood 10 H Urine Nitrite Positive H Urine Bilirubin Negative Urine Urobilinogen Normal Ur Leukocyte Esterase 100 H Urine RBC 0-5 SEEN Urine WBC 25-50 SEEN Ur Squamous Epith Cells 0-5 SEEN Urine Bacteria 1+ Urine Mucus 0 SEEN Carbamazepine 15.5 H* 09/08/18 09/08/18 09/08/18 05:54 05:54 09:34 WBC RBC Hgb Hct MCV MCH MCHC RDW RDW Differential Plt Count MPV Immature Gran % (Auto) Neut % (Auto) Lymph % (Auto) [place] % (Auto) Eos % (Auto) Baso % (Auto) Absolute Neuts (auto) Absolute Lymphs (auto) Total Counted Sodium 146 H Potassium 4.3 Chloride 113 H Carbon Dioxide 25.0 Anion Gap 8 BUN 17 Creatinine 0.44 L Estim Creat Clear Calc 115.60 Est GFR (MDRD) Af Amer 192 Est GFR (MDRD) Non-Af 159 BUN/Creatinine Ratio 38.7 H Glucose 106 Calcium 8.0 L Magnesium Urine Color Pao Urine Clarity Clear Urine pH 5.0 Ur Specific [place] 1.015 Urine Protein Negative Urine Glucose (UA) Normal Urine Ketones Negative Urine Occult Blood Negative Urine Nitrite Positive H Urine Bilirubin 3 H Urine Urobilinogen 4 H Ur Leukocyte Esterase Negative Urine RBC 0 SEEN Urine WBC 0 SEEN Ur Squamous Epith Cells 0 SEEN Urine Bacteria 0 SEEN Urine Mucus 0 SEEN Carbamazepine 10.8 - Other Studies Radiology: [] Other Studies: [] Route of nutrition/ use of supplements: [] Nutritional Intake: [] IV Site: [] López Catheter: [] - Physical Exam General: Alert, Oriented x3, Cooperative, No apparent distress HEENT: Atraumatic, PERRLA, EOMI Neck: Supple, No Nodes Lungs: Clear to auscultation, Normal air movement Cardiovascular: Regular rate, Regular Rhythm, No murmurs Abdomen: Soft, Non Tender, Non-Distended Extremities: No edema Skin: No rashes IV Site: Peripheral, without redness Musculoskeletal: No Tenderness to Palpation of Joints or Extremities Neurological: Cranial nerves II-XII grossly intact - Assessment/Plan Antibiotics: [] Assessment/Plan: [] Recurrent uti - not clear if new infection is present. No fever here, normal wbc. UA with 25-50 wbc, repeat UA showed 0 wbc this AM. May be retaining urine. Urology to see, continue ceftriaxone for now, ucx pending. Will follow, thank you, d/w Dr. Quiroz.
--- NOTE | 2018-09-08 12:39 | PCM.CONS.GEN ---
Problem List (1) UTI (urinary tract infection) Status: Acute Qualifiers: Urinary tract infection type: acute cystitis Comment: E. Coli and Enterococcus (2) Recurrent UTI Status: Acute Reason for Consult Date of Consultation: 09/08/18 Reason for Consultation: Recurrent UTI, history of sepsis with UTI last year History of Present Illness: The patient is a 53 year old F who has been suffering from recurrent urinary tract infections for the past several years. She has had imaging in the past revealing evidence of urolithiasis. She voids approximately 5-6 times during the day and is up with nocturia at least once. She has no gross or microscopic hematuria in her history. She has antibiotics on hand and takes vitamin C 500 mg daily in addition to methanamine for prevention of UTI. She has what sounds to be urinary urge incontinence but she does not wear pads due to fear of infection. She denies constipation, diarrhea and leakage of stool. She is sexually active at least once every other week but denies that this is clearly related to her onset of infection. She has sometimes strained to empty her bladder in the past. This has seems to happen more at night for her. She has had a hysterectomy but still has her ovaries. She is not on any vaginal estrogen replacement. She is not sure what her stone status is at the present time. Reports that the dysuria continues, but that the Azo is helping. Past Medical History Past Medical History (Chronic Problems): Chronic Problems Chronic pain syndrome (Chronic) Anxiety and depression (Chronic) Obesity (BMI 30.0-34.9) (Chronic) Seizure disorder (Chronic) Obesity (Chronic) S/P unilateral above knee amputation (Chronic) Hyperlipidemia (Chronic) Phantom limb syndrome (Chronic) Right sided weakness (Chronic) Cephalgia (Chronic) Allergies metoclopramide HCl [From Reglan] Allergy (Verified 09/07/18 16:20) shaking SHAKING prochlorperazine edisylate [From Compazine] Allergy (Verified 09/07/18 12:55) Hives prochlorperazine maleate [From Compazine] Allergy (Verified 09/07/18 12:55) Hives promethazine HCl [From Phenergan] Allergy (Verified 09/07/18 12:55) Hives Home Medications: Ambulatory Orders Medication Instructions Recorded Buprenorphine HCl 8 mg SL Q6H PRN PRN 07/26/14 Duloxetine Hcl [Cymbalta] 60 mg PO QHS 02/05/14 FA/Mv,Ca,Iron,Min/Lycopene/Lut 1 each PO DAILY 02/05/14 [Centravites Tablet] Pregabalin [Lyrica] 150 mg PO TID PRN 02/05/14 Acetaminophen [Tylenol] 500 mg PO PRN PRN 05/20/18 Ascorbic Acid [Vitamin C] 1,000 mg PO DAILY 05/20/18 Aspirin E.C. [Ecotrin] 81 mg PO DAILY 05/20/18 Ibuprofen [Motrin] 400 mg PO PRN PRN 05/20/18 Methenamine Hippurate 1 gm PO BID 05/20/18 Quetiapine Fumarate [Quetiapine 300 mg PO QHS 05/20/18 Fumarate ER] Baclofen [Lioresal] 10 mg PO Q6H PRN PRN 09/07/18 Carbamazepine [Carbamazepine ER] 400 mg PO BID 09/07/18 Doxycycline Hyclate 10 mg PO BID 09/07/18 Surgical History: appendectomy, cholecystectomy, hysterectomy, - - LLE amputation s/p MRSA infection, Carpal tunnel surgery. 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 Denies: Chills, Fever Eyes: Denies: Vision Change HEENT: Denies: Difficulty Swallowing Cardiovascular: Denies: Chest Pain Respiratory: Denies: Shortness of Breath Gastrointestinal: Denies: Constipation, Diarrhea, Vomiting Genitourinary: Reports: Dysuria, Incontinence, Nocturia, Urgency Gynecological: Denies: Sexual concerns Musculoskeletal: Reports: - - phantom leg pain. 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 - Physical Exam General: Alert, Oriented x3, Cooperative, No apparent distress HEENT: Atraumatic, Normocephalic Oral: Moist Mucosa Neck: Supple, Trachea Midline Lungs: Normal air movement Cardiovascular: Regular rate Abdomen: Soft, Non Tender Extremities: - - left lower extremity gone. Skin: No rashes Neurological: Cranial nerves II-XII grossly intact, Neuro grossly intact Psych/Mental Status: Normal Affect Comment: bladder scan PVR 3 times done, all less than 20cc. Vital Signs Temp Pulse Resp BP Pulse Ox 98.7 F 80 18 119/61 92 09/08/18 09:04 09/08/18 09:04 09/08/18 09:04 09/08/18 09:04 09/08/18 11:49 Oxygen Delivery Method Room Air Weight: 83.007 kg Body Mass Index (BMI) 32.4 Finger Stick Blood Glucose 87 Intake and Output for Last 24 Hours 09/06/18 09/07/18 09/08/18 23:59 23:59 23:59 Intake Total 1731 / 1731 2499 / 2499 Output Total 600 / 600 Balance 1731 / 1731 1899 / 1899 Laboratory Tests Past 24 Hrs 09/07/18 09/07/18 09/07/18 14:15 14:15 14:15 WBC 8.9 RBC 4.32 Hgb 12.8 Hct 39.6 MCV 91.7 MCH 29.6 MCHC 32.3 RDW 12.4 RDW Differential 41.9 Plt Count 274 MPV 9.6 Immature Gran % (Auto) 0.200 Neut % (Auto) 64.5 Lymph % (Auto) 24.9 [place] % (Auto) 5.8 Eos % (Auto) 3.7 Baso % (Auto) 0.9 Absolute Neuts (auto) 5.8 Absolute Lymphs (auto) 2.22 Total Counted Not Reportable Sodium 139 Potassium 4.2 Chloride 105 Carbon Dioxide 28.0 Anion Gap 6 BUN 17 Creatinine 0.64 Estim Creat Clear Calc 83.13 Est GFR (MDRD) Af Amer 124 Est GFR (MDRD) Non-Af 103 BUN/Creatinine Ratio 26.6 H Glucose 97 Calcium 8.6 Magnesium 2.1 Urine Color Urine Clarity Urine pH Ur Specific [place] Urine Protein Urine Glucose (UA) Urine Ketones Urine Occult Blood Urine Nitrite Urine Bilirubin Urine Urobilinogen Ur Leukocyte Esterase Urine RBC Urine WBC Ur Squamous Epith Cells Urine Bacteria Urine Mucus Carbamazepine 09/07/18 09/07/18 09/08/18 14:50 15:30 05:54 WBC 8.0 RBC 3.74 L Hgb 11.2 L Hct 35.8 L MCV 95.7 MCH 29.9 MCHC 31.3 L RDW 12.3 RDW Differential 41.5 Plt Count 239 MPV 9.6 Immature Gran % (Auto) 0.100 Neut % (Auto) 45.3 L Lymph % (Auto) 39.6 [place] % (Auto) 9.9 Eos % (Auto) 4.4 Baso % (Auto) 0.7 Absolute Neuts (auto) 3.6 Absolute Lymphs (auto) 3.17 Total Counted Not Reportable Sodium Potassium Chloride Carbon Dioxide Anion Gap BUN Creatinine Estim Creat Clear Calc Est GFR (MDRD) Af Amer Est GFR (MDRD) Non-Af BUN/Creatinine Ratio Glucose Calcium Magnesium Urine Color Yellow Urine Clarity Sl. Cloudy Urine pH 5.0 Ur Specific [place] 1.020 Urine Protein 15 H Urine Glucose (UA) Normal Urine Ketones 5 H Urine Occult Blood 10 H Urine Nitrite Positive H Urine Bilirubin Negative Urine Urobilinogen Normal Ur Leukocyte Esterase 100 H Urine RBC 0-5 SEEN Urine WBC 25-50 SEEN Ur Squamous Epith Cells 0-5 SEEN Urine Bacteria 1+ Urine Mucus 0 SEEN Carbamazepine 15.5 H* 09/08/18 09/08/18 09/08/18 05:54 05:54 09:34 WBC RBC Hgb Hct MCV MCH MCHC RDW RDW Differential Plt Count MPV Immature Gran % (Auto) Neut % (Auto) Lymph % (Auto) [place] % (Auto) Eos % (Auto) Baso % (Auto) Absolute Neuts (auto) Absolute Lymphs (auto) Total Counted Sodium 146 H Potassium 4.3 Chloride 113 H Carbon Dioxide 25.0 Anion Gap 8 BUN 17 Creatinine 0.44 L Estim Creat Clear Calc 115.60 Est GFR (MDRD) Af Amer 192 Est GFR (MDRD) Non-Af 159 BUN/Creatinine Ratio 38.7 H Glucose 106 Calcium 8.0 L Magnesium Urine Color [place] Urine Clarity Clear Urine pH 5.0 Ur Specific [place] 1.015 Urine Protein Negative Urine Glucose (UA) Normal Urine Ketones Negative Urine Occult Blood Negative Urine Nitrite Positive H Urine Bilirubin 3 H Urine Urobilinogen 4 H Ur Leukocyte Esterase Negative Urine RBC 0 SEEN Urine WBC 0 SEEN Ur Squamous Epith Cells 0 SEEN Urine Bacteria 0 SEEN Urine Mucus 0 SEEN Carbamazepine 10.8 Assessment/Plan All Active Problems UTI (urinary tract infection) (Acute) Sepsis (Resolved) Pyelonephritis (Acute) Acute encephalopathy (Acute) Recurrent UTI (Acute) Renal u/s to assess stone, hydronephrosis and scar tissue from previous pyelonephritis Recommend full course antibiotic based on culture from this visit with 3 months nightly prophylaxis Continue vitamin C Will need pelvic exam and cystoscopy in the office, can be scheduled for next 1-2 weeks. Will benefit from vaginal estrogen replacement. No further sanitary wipes with voiding, ok to use following BM. Keep BM soft, treat any constipation aggressively Will be out of town tomorrow, returning on Friday. I can follow up with her in the office next week. Thank you for the privilege of this consult.
[2018-09-08] MEDS: BUPRENORPHINE HCL 8 MG TAB.SUBL 4 MG SL (14:13)
[2018-09-08] MEDS: Baclofen 10 MG Tablet PO (14:14)
[2018-09-08] MEDS: DULoxetine Hcl 60 MG Capsule PO (21:12)
[2018-09-08] MEDS: QUEtiapine 100 MG Tablet 300 MG PO (21:12)
[2018-09-09 02:29] VITALS: TEMP 36.8
[2018-09-09 06:00] VITALS: BP 140/81; PULSE 70; RESP 16; TEMP 36.6; O2SAT 95
[2018-09-09] MEDS: BUPRENORPHINE HCL 8 MG TAB.SUBL SL ×3 (06:02→12:00)
[2018-09-09] MEDS: Phenazopyridine 95 MG Tablet 190 MG PO (06:02)
[2018-09-09 07:40] VITALS: O2SAT 93
--- NOTE | 2018-09-09 08:11 | PN_ITS ---
Subjective: Day #3 Rocephin All events of the past 24 hours of been reviewed. T-max over the past 24 hours was 100.2 ?F at 11:30 PM on 09/08/2018. Diastolic blood pressures are frequently elevated. 93-97% saturation on room air. A repeat UA done on a straight cath urine showed 0 WBCs per high-power field and no bacteria. It was nitrite positive but this may be secondary to Pyridium. She was seen in consultation by Dr. Herrmann who will follow her as an outpatient for cystoscopy and vaginal exam. She recommended a full course of antibiotics and then nightly prophylaxis for 3 months. She also recommended treating constipation and maintaining soft BM's. Renal US was normal and there were no stones Urine culture from 09/07 (clean catch) has < than 1,000 colonies of 3 different organisms and 09/08 (straight cath) has no growth so far. - Physical Exam Vital Signs Temp Pulse Resp BP Pulse Ox 97.8 F 70 16 140/81 H 93 09/09/18 06:00 09/09/18 06:00 09/09/18 06:00 09/09/18 06:00 09/09/18 07:40 Oxygen Delivery Method Room Air Weight: 183 lb Body Mass Index (BMI) 32.4 Finger Stick Blood Glucose 87 Intake and Output for Last 24 Hours 09/07/18 09/08/18 09/09/18 23:59 23:59 23:59 Intake Total 1731 / 1731 3549 / 3549 120 / 120 Output Total 900 / 900 500 / 500 Balance 1731 / 1731 2649 / 2649 -380 / -380 Laboratory Tests Past 24 Hrs 09/08/18 09:34 Urine Color [place] Urine Clarity Clear Urine pH 5.0 Ur Specific [place] 1.015 Urine Protein Negative Urine Glucose (UA) Normal Urine Ketones Negative Urine Occult Blood Negative Urine Nitrite Positive H Urine Bilirubin 3 H Urine Urobilinogen 4 H Ur Leukocyte Esterase Negative Urine RBC 0 SEEN Urine WBC 0 SEEN Ur Squamous Epith Cells 0 SEEN Urine Bacteria 0 SEEN Urine Mucus 0 SEEN Medical Necessity - Tobacco Use Smoking Status: Never smoker Tobacco Use: Non-smoker Assessment/Plan All Active Problems UTI (urinary tract infection) (Acute) Sepsis (Resolved) Pyelonephritis (Ruled-out) Acute encephalopathy (Resolved)
[2018-09-09 08:57] VITALS: BP 135/83; PULSE 71; RESP 18; TEMP 36.8; O2SAT 93
[2018-09-09] MEDS: Aspirin E.C. 81 MG Tablet PO (08:59)
[2018-09-09] MEDS: METHENAMINE HIPPURATE 1 GM TABLET PO (09:00)
[2018-09-09] MEDS: Enoxaparin 40 MG/0.4 ML Syringe SC (09:00)
[2018-09-09] MEDS: Ascorbic Acid 500 MG Tablet 1000 MG PO (09:00)
[2018-09-09] MEDS: carBAMazepine 400 MG TAB.SR.12H PO (09:00)
[2018-09-09] MEDS: Pregabalin 75 MG Capsule 150 MG PO (09:02)
[2018-09-09] MEDS: Baclofen 10 MG Tablet PO (09:07)
--- NOTE | 2018-09-09 11:23 | DCINST_ITS ---
- Discharge Diagnoses Current Active Problems: Current Active and Chronic Problems Recurrent UTI (Acute) You will use the following diet at home:: Other - Resume previous diet Your food should be the consistency of: Regular Your liquids should be the consistency of: Regular/Thin Discharge Activity: Return to Normal Activity Call your doctor if you observe: Fever of 101 or Higher, - - Call your PCP if severe diarrhea ( > 5 stools a day), painful sores in the mouth, painful swallowing, rash or itching. Taking a probiotic such as Lactobacillus or Kefir can help with loose stools while taking antibiotics. Instructions: Treating Constipation, Discharge Instructions: Eating a High Fiber Diet, ED Vaginitis Atrophic Additional Instructions: 1. The clean catch urine culture taken at admission had less than 1,000 colonies of bacteria grow and there were 3 different organisms......this usually indicates a contaminated specimen and less than 10,000 colonies is usually not significant. The urine that was obtained from the catheter had no white blood cells and there has been no growth of bacteria yet. I suspect you do not have a UTI but, I am discharging you on an antibiotic and you will complete [address] Herrmann will put you on a Prophylactic dose of antibiotics at bedtime for the next 3 months. Burning with urination can come from many different things other than infection. I am giving you some literature on Atrophic Vaginitis which is a frequent cause of burning. This condition is treated with intravaginal estrogen cream. I have given you a prescription for 1 applicator nightly for [address] Herrmann can write another prescription for what she would like you to remain on. 2. The final urine culture is not available at the time of DC so I want you to call me on my cell phone Friday and I will relay the final results to you. My cell number is [phone]. 3. The Tegretol level was a little high at admission and it was held for 2 doses.....your PCP might want to recheck the level again in 7-10 days and adjust the dose if it is still high. 4. The CT scan of the abdomen and pelvis you had in July showed a large accumulation of stool in the colon and rectum. This can lead to urinary tract infections. Try to keep your stool soft......I think you should am for a soft BM every day and you will have to eat a high fiber diet and probably take a daily stool softener to achiev this. Lyrica, buprenorphine, baclofen, Duloxetine and Seroquel can all cause constipation. My recommendation is to get a bottle of Mag Citrate at the pharmacy and get yourself cleaned out and then start Miralax 17 GM mixed in Juice 1-2 times a day every day. Allergies/Adverse Reactions: Allergies metoclopramide HCl [From Reglan] Allergy (Verified 09/07/18 16:20) shaking SHAKING prochlorperazine edisylate [From Compazine] Allergy (Verified 09/07/18 12:55) Hives prochlorperazine maleate [From Compazine] Allergy (Verified 09/07/18 12:55) Hives promethazine HCl [From Phenergan] Allergy (Verified 09/07/18 12:55) Hives Medications to take at Discharge Buprenorphine HCl 8 mg SL Q6H PRN PRN 02/05/14 Duloxetine Hcl [Cymbalta] 60 mg PO QHS 02/05/14 FA/Mv,Ca,Iron,Min/Lycopene/Lut [Centravites Tablet] 1 each PO DAILY 02/05/14 Pregabalin [Lyrica] 150 mg PO TID PRN 02/05/14 Acetaminophen [Tylenol] 500 mg PO PRN PRN 05/20/18 Ascorbic Acid [Vitamin C] 1,000 mg PO DAILY 05/20/18 Aspirin E.C. [Ecotrin] 81 mg PO DAILY 05/20/18 Ibuprofen [Motrin] 400 mg PO PRN PRN 05/20/18 Methenamine Hippurate 1 gm PO BID 05/20/18 Quetiapine Fumarate [Quetiapine Fumarate ER] 300 mg PO QHS 05/20/18 Baclofen [Lioresal] 10 mg PO Q6H PRN PRN 09/07/18 Carbamazepine [Carbamazepine ER] 400 mg PO BID 09/07/18 Cefadroxil Hydrate [Duricef] 500 mg PO BID #14 capsule 09/09/18 Estradiol [Estrace Vaginal Cream] 1 dose VAGINAL DAILY #14 cream.appl 09/09/18 Phenazopyridine HCl [Pyridium] 200 mg PO TID #9 tablet 09/09/18 The following prescriptions were given: Estradiol [Estrace Vaginal Cream] 1 dose VAGINAL DAILY #14 cream.appl Cefadroxil Hydrate [Duricef] 500 mg PO BID #14 capsule Phenazopyridine HCl [Pyridium] 200 mg PO TID #9 tablet Primary Care Physician: Harshad Karimi MD [Primary Care Provider] - Please follow up with your Primary Care Physician in: 10 days Test Results: Test results from this visit will be discussed in further detail at your follow- up appointment, if applicable. Please Follow Up With: Edilia Herrmann MD When: next week Please Follow Up With: Zenon Schneider MD When: 2 weeks Proposed Discharge Date: 09/09/18
--- NOTE | 2018-09-09 11:47 | PCM.DC.SUM ---
Discharge Date and Diagnosis Date of Admission: 09/07/18 Date of Discharge: 09/09/18 - Primary Discharge Diagnosis Suspected UTI - acute Atrophic Vaginitis Elevated Tegretol level - Secondary Discharge Diagnosis Chronic Problems Nephrolithiasis (Chronic) History of disarticulation of left hip (Chronic) Chronic pain syndrome (Chronic) Anxiety and depression (Chronic) Obesity (BMI 30.0-34.9) (Chronic) Seizure disorder (Chronic) Obesity (Chronic) S/P unilateral above knee amputation (Chronic) Hyperlipidemia (Chronic) Phantom limb syndrome (Chronic) Right sided weakness (Chronic) Cephalgia (Chronic) Hospital Course and Treatment Imaging Results: Clinical Impression(s) from Imaging Studies Renal Ultrasound 09/08/18 09:36 IMPRESSION: Normal ultrasound of the kidneys and urinary bladder. Electronically Signed: Jc Lovett DO at 16:16 EST Tel [phone], Service support , Laboratory Tests 09/08/18 09/08/18 09/08/18 Range/Units 09:34 05:54 05:54 WBC (4.4-11.0) K/mm3 RBC (4.2-5.4) M/mm3 Hgb (12.0-15.0) g/dl Hct (37-47) % MCV (81-99) fL MCH (27.0-32.0) pg MCHC (32-36) g/gl RDW (11.6-14.6) % RDW Differential (35.1-43.9) fl Plt Count (150-450) K/mm3 MPV (6.2-12.0) fl Immature Gran % (Auto) (0.0-0.9) % Neut % (Auto) (47-70) % Lymph % (Auto) (19-41) % Socorro % (Auto) (0-10) % Eos % (Auto) (0-5) % Baso % (Auto) (0-1) % Absolute Neuts (auto) (2.0-7.7) X10^3/uL Absolute Lymphs (auto) (0.83-4.51) X10^3/ul Total Counted Sodium 146 H (136-145) mmol/L Potassium 4.3 (3.5-5.1) mmol/L Chloride 113 H (98-107) mmol/L Carbon Dioxide 25.0 (21.0-32.0) mmol/L Anion Gap 8 (5-15) BUN 17 (7-18) mg/dL Creatinine 0.44 L (0.55-1.02) mg/dL Estim Creat Clear Calc 115.60 ml/min Est GFR (MDRD) Af Amer 192 (>60) mL/min Est GFR (MDRD) Non-Af 159 (>60) mL/min BUN/Creatinine Ratio 38.7 H (10-20) RATIO Glucose 106 (74-106) mg/dL Calcium 8.0 L (8.5-10.1) mg/dL Magnesium (1.6-2.6) mg/dL Urine Color Pao (Yellow) Urine Clarity Clear (Clear) Urine pH 5.0 (5.0 - 8.0) Ur Specific Phillips 1.015 (1.002-1.030) Urine Protein Negative (Negative) mg/dl Urine Glucose (UA) Normal (Normal) mg/dl Urine Ketones Negative (Negative) mg/dl Urine Occult Blood Negative (Negative) /ul Urine Nitrite Positive H (Negative) Urine Bilirubin 3 H (Negative) mg/dL Urine Urobilinogen 4 H (Normal) mg/dl Ur Leukocyte Esterase Negative (Negative) /ul Urine RBC 0 SEEN (0-5) /hpf Urine WBC 0 SEEN (0-5) /hpf Ur Squamous Epith Cells 0 SEEN (5-10) /hpf Urine Bacteria 0 SEEN (None Seen) /hpf Urine Mucus 0 SEEN (<or=2+) /hpf Carbamazepine 10.8 (4.0-12.0) ug/mL 09/08/18 09/07/18 09/07/18 Range/Units 05:54 15:30 14:50 WBC 8.0 (4.4-11.0) K/mm3 RBC 3.74 L (4.2-5.4) M/mm3 Hgb 11.2 L (12.0-15.0) g/dl Hct 35.8 L (37-47) % MCV 95.7 (81-99) fL MCH 29.9 (27.0-32.0) pg MCHC 31.3 L (32-36) g/gl RDW 12.3 (11.6-14.6) % RDW Differential 41.5 (35.1-43.9) fl Plt Count 239 (150-450) K/mm3 MPV 9.6 (6.2-12.0) fl Immature Gran % (Auto) 0.100 (0.0-0.9) % Neut % (Auto) 45.3 L (47-70) % Lymph % (Auto) 39.6 (19-41) % Socorro % (Auto) 9.9 (0-10) % Eos % (Auto) 4.4 (0-5) % Baso % (Auto) 0.7 (0-1) % Absolute Neuts (auto) 3.6 (2.0-7.7) X10^3/uL Absolute Lymphs (auto) 3.17 (0.83-4.51) X10^3/ul Total Counted Not Reportable Sodium (136-145) mmol/L Potassium (3.5-5.1) mmol/L Chloride (98-107) mmol/L Carbon Dioxide (21.0-32.0) mmol/L Anion Gap (5-15) BUN (7-18) mg/dL Creatinine (0.55-1.02) mg/dL Estim Creat Clear Calc ml/min Est GFR (MDRD) Af Amer (>60) mL/min Est GFR (MDRD) Non-Af (>60) mL/min BUN/Creatinine Ratio (10-20) RATIO Glucose (74-106) mg/dL Calcium (8.5-10.1) mg/dL Magnesium (1.6-2.6) mg/dL Urine Color Yellow (Yellow) Urine Clarity Sl. Cloudy (Clear) Urine pH 5.0 (5.0 - 8.0) Ur Specific Phillips 1.020 (1.002-1.030) Urine Protein 15 H (Negative) mg/dl Urine Glucose (UA) Normal (Normal) mg/dl Urine Ketones 5 H (Negative) mg/dl Urine Occult Blood 10 H (Negative) /ul Urine Nitrite Positive H (Negative) Urine Bilirubin Negative (Negative) mg/dL Urine Urobilinogen Normal (Normal) mg/dl Ur Leukocyte Esterase 100 H (Negative) /ul Urine RBC 0-5 SEEN (0-5) /hpf Urine WBC 25-50 SEEN (0-5) /hpf Ur Squamous Epith Cells 0-5 SEEN (5-10) /hpf Urine Bacteria 1+ (None Seen) /hpf Urine Mucus 0 SEEN (<or=2+) /hpf Carbamazepine 15.5 H* (4.0-12.0) ug/mL 09/07/18 09/07/18 09/07/18 Range/Units 14:15 14:15 14:15 WBC 8.9 (4.4-11.0) K/mm3 RBC 4.32 (4.2-5.4) M/mm3 Hgb 12.8 (12.0-15.0) g/dl Hct 39.6 (37-47) % MCV 91.7 (81-99) fL MCH 29.6 (27.0-32.0) pg MCHC 32.3 (32-36) g/gl RDW 12.4 (11.6-14.6) % RDW Differential 41.9 (35.1-43.9) fl Plt Count 274 (150-450) K/mm3 MPV 9.6 (6.2-12.0) fl Immature Gran % (Auto) 0.200 (0.0-0.9) % Neut % (Auto) 64.5 (47-70) % Lymph % (Auto) 24.9 (19-41) % Socorro % (Auto) 5.8 (0-10) % Eos % (Auto) 3.7 (0-5) % Baso % (Auto) 0.9 (0-1) % Absolute Neuts (auto) 5.8 (2.0-7.7) X10^3/uL Absolute Lymphs (auto) 2.22 (0.83-4.51) X10^3/ul Total Counted Not Reportable Sodium 139 (136-145) mmol/L Potassium 4.2 (3.5-5.1) mmol/L Chloride 105 (98-107) mmol/L Carbon Dioxide 28.0 (21.0-32.0) mmol/L Anion Gap 6 (5-15) BUN 17 (7-18) mg/dL Creatinine 0.64 (0.55-1.02) mg/dL Estim Creat Clear Calc 83.13 ml/min Est GFR (MDRD) Af Amer 124 (>60) mL/min Est GFR (MDRD) Non-Af 103 (>60) mL/min BUN/Creatinine Ratio 26.6 H (10-20) RATIO Glucose 97 (74-106) mg/dL Calcium 8.6 (8.5-10.1) mg/dL Magnesium 2.1 (1.6-2.6) mg/dL Urine Color (Yellow) Urine Clarity (Clear) Urine pH (5.0 - 8.0) Ur Specific Phillips (1.002-1.030) Urine Protein (Negative) mg/dl Urine Glucose (UA) (Normal) mg/dl Urine Ketones (Negative) mg/dl Urine Occult Blood (Negative) /ul Urine Nitrite (Negative) Urine Bilirubin (Negative) mg/dL Urine Urobilinogen (Normal) mg/dl Ur Leukocyte Esterase (Negative) /ul Urine RBC (0-5) /hpf Urine WBC (0-5) /hpf Ur Squamous Epith Cells (5-10) /hpf Urine Bacteria (None Seen) /hpf Urine Mucus (<or=2+) /hpf Carbamazepine (4.0-12.0) ug/mL Microbiology 09/08/18 09:34 Urine Catheter - Catheter Urine Culture - Preliminary Culture exhibits no growth. 09/07/18 14:50 Urine, Clean Catch Urine Culture - Final Mixed Gram Pos & Gram Neg Org Dr. Zenon Schneider-infectious disease Dr. Edilia Herrmann -female urology Operations: None Procedures: None Summary of Care Provided: Ms Zuniga is a 53 YO female with a PMH of complex partial seizure disorder, hyperlipidemia, nephrolithiasis, Chronic pain syndrome with phantom limb syndrome on buprenorphine 8 mg sublingual every 6 hours and 4 mg sublingual as needed, anxiety/depression, obesity, history of MRSA infection left lower extremity (S/P LLE disarticulation/amputation at the hip) and frequent UTI's who presented to the ED at [facility] on 09/07/2018 complaining of sinus tenderness, nasal congestion, rhinorrhea, facial pressure and fevers. She had been seen at an urgent care on 09/04/2018 and been diagnosed with sinusitis and placed on doxycycline. She additionally complained that on 09/06/2018 she developed dysuria, flank discomfort, nausea/vomiting and fever(101)/chills. Vital signs in the emergency department were temp 99.7, heart rate 95, blood pressure 153/83, respiratory rate 18 and she was 94% saturated on room air. CBC was normal with an unremarkable differential. BMP was normal. A urine clean catch had 25-50 WBCs per high-power field with 1+ bacteria. Tegretol level was increased at 15.5. She was admitted to the hospital with a diagnosis of acute complicated urinary tract infection and placed on Rocephin. Tegretol was held. Dr. Schneider was placed on consult because he has been following her as an OP for frequent UTI's.....he had started her on methenamine and vitamin C daily. Less than 24 hours after admission she stated that she felt better and her appetite was improved. She denied nausea or vomiting. She still complained of some mild burning with urination. She was afebrile. She was continued on Rocephin and a urine straight cath was done which showed 0 WBCs and no bacteria. The nitrite was positive however she was taking Azo which I believe causes a false positive nitrite. Urine culture from the clean catch grew less than 1000 colonies of mixed gram-positive and gram-negative organisms. The preliminary report on the specimen obtained by straight cath is no growth. She was seen in the hospital by Dr. Herrmann and an ultrasound of the kidneys and bladder was obtained which was normal and specifically did not reveal any stones. Urine residuals were within normal limits. Dr. Herrmann recommended starting an estrogen vaginal cream for atrophic vaginitis and recommended we treat constipation aggressively. A CT scan of the abdomen and pelvis done in July 2018 showed large amount of stool accumulation in the colon and rectum. She is on multiple medications that cause constipation. She recommend a full course of antibiotics and then 3 months of prophylactic antibiotics. She was discharged on 09/09 with a RX for Duricef 500 mg BID, #14, to complete 10 days of therapy. She will follow up with Dr. Herrmann in the office who will schedule a pelvic exam and a cystoscopy. - Physical Exam General: Alert, Oriented x3, Cooperative, No apparent distress, Well developed, Well nourished HEENT: Atraumatic, PERRLA, EOMI, Normocephalic Oral: Dry Mucosa Neck: Supple, No JVD, Negative Carotid Bruits, No Nodes, No Nuchal Rigidity, Trachea Midline Lungs: Clear to auscultation, Normal air movement, No rhonchi, No wheeze, No rales Cardiovascular: Regular rate, Regular Rhythm, Normal S1, Normal S2, No murmurs, No rub noted, No Gallop Abdomen: Bowel Sounds Present, Soft, Non Tender, Non-Distended, - - no suprapubic tenderness Extremities: No clubbing, No cyanosis, No edema, - - The LLE is amputated at the hip......no open wounds Skin: No rashes, No breakdown Neurological: - - she has a left facial droop that she has had since she was a child Psych/Mental Status: Normal Affect, Appropriate This note was generated with GITRation software. It may contain incorrect words, spelling, and punctuation that were not noted in checking the note before signing. - Physical Exam Vital Signs Temp Pulse Resp BP Pulse Ox 98.3 F 71 18 135/83 H 93 09/09/18 08:57 09/09/18 08:57 09/09/18 08:57 09/09/18 08:57 09/09/18 08:57 Oxygen Delivery Method Room Air Weight: 183 lb Body Mass Index (BMI) 32.4 Finger Stick Blood Glucose 87 Intake and Output for Last 24 Hours 09/07/18 09/08/18 09/09/18 23:59 23:59 23:59 Intake Total 1731 / 1731 3549 / 3549 120 / 120 Output Total 900 / 900 500 / 500 Balance 1731 / 1731 2649 / 2649 -380 / -380 Microbiology Past 72 Hours 09/08/18 09:34 Urine Culture - Preliminary Urine Catheter - Catheter Culture exhibits no growth. 09/07/18 14:50 Urine Culture - Final Urine, Clean Catch Mixed Gram Pos & Gram Neg Org Discharge Activity: Return to Normal Activity Call your doctor if you observe: Fever of 101 or Higher, - - Call your PCP if severe diarrhea ( > 5 stools a day), painful sores in the mouth, painful swallowing, rash or itching. Taking a probiotic such as Lactobacillus or Kefir can help with loose stools while taking antibiotics. Home Medications: Medications to take at Discharge Buprenorphine HCl 8 mg SL Q6H PRN PRN 02/05/14 Duloxetine Hcl [Cymbalta] 60 mg PO QHS 02/05/14 FA/Mv,Ca,Iron,Min/Lycopene/Lut [Centravites Tablet] 1 each PO DAILY 02/05/14 Pregabalin [Lyrica] 150 mg PO TID PRN 02/05/14 Acetaminophen [Tylenol] 500 mg PO PRN PRN 05/20/18 Ascorbic Acid [Vitamin C] 1,000 mg PO DAILY 05/20/18 Aspirin E.C. [Ecotrin] 81 mg PO DAILY 05/20/18 Ibuprofen [Motrin] 400 mg PO PRN PRN 05/20/18 Methenamine Hippurate 1 gm PO BID 05/20/18 Quetiapine Fumarate [Quetiapine Fumarate ER] 300 mg PO QHS 05/20/18 Baclofen [Lioresal] 10 mg PO Q6H PRN PRN 09/07/18 Carbamazepine [Carbamazepine ER] 400 mg PO BID 09/07/18 Cefadroxil Hydrate [Duricef] 500 mg PO BID #14 capsule 09/09/18 Estradiol [Estrace Vaginal Cream] 1 dose VAGINAL DAILY #14 cream.appl 09/09/18 Phenazopyridine HCl [Pyridium] 200 mg PO TID #9 tablet 09/09/18 Following Prescrptions Were Given to Patient: Estradiol [Estrace Vaginal Cream] 1 dose VAGINAL DAILY #14 cream.appl Cefadroxil Hydrate [Duricef] 500 mg PO BID #14 capsule Phenazopyridine HCl [Pyridium] 200 mg PO TID #9 tablet Primary Care Physician: Harshad Karimi MD [Primary Care Provider] - Please follow up with your Primary Care Physician in: 10 days Please Follow Up With: Edilia Herrmann MD When: next week Please Follow Up With: Zenon Schneider MD When: 2 weeks Patient Instructions: Treating Constipation, Discharge Instructions: Eating a High Fiber Diet, ED Vaginitis Atrophic Disposition: Home Minutes spent on discharge:: 30 Patient Condition:: Good Medical Necessity - Tobacco Use Smoking Status: Never smoker Tobacco Use: Non-smoker Meaningful Use Info Meaningful Use Diagnoses (Choose all that apply): None applicable Code Visit OBSV E&M: 65277 Observation care discharge
[2018-09-09 12:34] VITALS: BP 132/75; PULSE 72; RESP 18; TEMP 36.3; O2SAT 94
[2018-09-09 13:15] VITALS: BP 132/75; PULSE 72; RESP 18; TEMP 36.3; O2SAT 94
--- NOTE | 2018-09-09 14:00 | PN.ID_ITS ---
Subjective: Sx resolved, feeling good, no fever. - Physical Exam General: Alert, Cooperative, No apparent distress Lungs: Clear to auscultation, Normal air movement Cardiovascular: Regular rate, Regular Rhythm Abdomen: Soft, Non Tender, Non-Distended Skin: No rashes Vital Signs Temp Pulse Resp BP Pulse Ox 97.4 F L 72 18 132/75 H 94 09/09/18 12:34 09/09/18 12:34 09/09/18 12:34 09/09/18 12:34 09/09/18 12:34 Oxygen Delivery Method Room Air Weight: 83.007 kg Body Mass Index (BMI) 32.4 Finger Stick Blood Glucose 87 Intake and Output for Last 24 Hours 09/07/18 09/08/18 09/09/18 23:59 23:59 23:59 Intake Total 1731 / 1731 3549 / 3549 600 / 600 Output Total 900 / 900 500 / 500 Balance 1731 / 1731 2649 / 2649 100 / 100 Microbiology Past 72 Hours 09/08/18 09:34 Urine Culture - Preliminary Urine Catheter - Catheter Culture exhibits no growth. 09/07/18 14:50 Urine Culture - Final Urine, Clean Catch Mixed Gram Pos & Gram Neg Org Medical Necessity - Tobacco Use Smoking Status: Never smoker Tobacco Use: Non-smoker Route of nutrition/ use of supplements: [] Nutritional Intake: [] IV Site: [] López Catheter: [] - Assessment/Plan Antibiotics: [] Assessment/Plan: [] Recurrent uti - not clear if new infection is present. No fever here, normal w bc. UA with 25-50 wbc, repeat UA showed 0 wbc. Will followup with urology. Ucx here with less than 1000 mixed growth. It seems like something other than infection is causing her symptoms. Will follow, d/w Dr. Quiroz.
== END 2018-09-09 13:15 | disposition home or self-care (01) ==
LOC: ED 13:42 → MS2 16:17
PROVIDERS: Admitting Provider Family Medicine; Emergency Provider Emergency Medicine; Family Provider Family Medicine; PCP Family Medicine; Visit Provider Internal Medicine
DX: R50.9 Fever, unspecified (principal); R30.0 Dysuria; N95.2 Postmenopausal atrophic vaginitis; G40.909 Epilepsy, unspecified, not intractable, without status epilepticus; E78.5 Hyperlipidemia, unspecified; G54.7 Phantom limb syndrome without pain; R11.2 Nausea with vomiting, unspecified; F41.9 Anxiety disorder, unspecified; F32.9 Major depressive disorder, single episode, unspecified; G89.4 Chronic pain syndrome; E66.9 Obesity, unspecified; Z87.440 Personal history of urinary (tract) infections; Z89.612 Acquired absence of left leg above knee; Z79.899 Other long term (current) drug therapy; Z79.82 Long term (current) use of aspirin; Z68.32 Body mass index [BMI] 32.0-32.9, adult; Z71.3 Dietary counseling and surveillance; Z86.14 Personal history of Methicillin resistant Staphylococcus aureus infection; R29.810 Facial weakness
CPT/HCPCS: 36415; 76770; 80048; 80156; 81001; 83735; 85025; 87086; 87088; 96361; 96365; 96366; 96372; 96375; 96376; 99218; 99282; J7030; J7050; A4216; G0378; J2405

== ENCOUNTER → 2018-11-05 | Outpatient (CLI) | payer OTHER, SELFPAY ==
[2018-09-07 16:19] VITALS: BMI 32.4
[2018-11-05 16:55] LABS: Bacteria 0 SEEN /hpf (None Seen); Mucous, Urine 0 SEEN /hpf (<or=2+); Red Blood Cells-Urine 0 SEEN /hpf (0-5); White Blood Cells 0 SEEN /hpf (0-5)
[2018-11-05 17:56] LABS: Color, Urine Yellow (Yellow); Glucose, Dipstick Normal (Normal); Ketone-Dipstick Negative (Negative); Leukocyte Esterase-Dipstick Negative /ul (Negative); Nitrite-Dipstick Negative (Negative); Occult Blood-Urine Negative /ul (Negative); Protein-Dipstick Negative (Negative); Urine Bilirubin Dipstick Negative (Negative); Urine Clarity Clear (Clear); Urine Urobilinogen Normal (Normal)
[2018-11-05 18:03] LABS: Squamous Epithelial Cells - UA 5-10 SEEN /hpf (5-10)
== END | disposition home or self-care (01) ==
PROVIDERS: Family Provider Family Medicine; PCP Family Medicine; Referring Provider Family Medicine; Visit Provider Family Medicine
DX: R30.0 Dysuria (principal)
CPT/HCPCS: 81001; 87086; 87088

== ENCOUNTER → 2019-01-25 | Outpatient (CLI) | payer OTHER, SELFPAY ==
[2018-09-07 16:19] VITALS: BMI 32.4
--- NOTE | 2019-01-25 10:54 | RAD_ITS ---
STUDY: X-RAY - LEFT SHOULDER REASON FOR EXAM: Female, 53 years old. Increasing left shoulder pain, numbness in hand and fingers TECHNIQUE: 4 view(s) of the shoulder. COMPARISON: None FINDINGS: There is mild degenerative arthrosis of the glenohumeral articulation. Normal acromioclavicular joint. Normal acromion. Normal humeral head and visualized proximal humerus. The soft tissue structures are unremarkable. Normal visualized pulmonary apex. RAD/Shoulder min 2 Views IMPRESSION: Mild degenerative changes of the glenohumeral joint. Electronically Signed: Fran Martinez MD at 20:59 EDT , Service support ,
== END | disposition home or self-care (01) ==
LOC: HPRAD 10:53
PROVIDERS: Family Provider Family Medicine; PCP Family Medicine; Referring Provider Physician Assistant; Visit Provider Physician Assistant
DX: M25.512 Pain in left shoulder (principal)
CPT/HCPCS: 73030

== ENCOUNTER → 2019-01-25 | Outpatient (CLI) | payer OTHER, SELFPAY ==
[2019-01-25 11:34] VITALS: BMI 32.4
--- NOTE | 2019-01-25 13:47 | VDUE_ITS ---
Right Proximal Left Proximal Right subclavian vein is spontaneous, widely Left jugular vein is spontaneous, widely patent, phasic, with no intraluminal patent, phasic, with no intraluminal echogenicity noted. echogenicity noted. Left subclavian vein is spontaneous, widely patent, phasic, with no intraluminal echogenicity noted. Left Arm Left axillary vein is spontaneous, patent, phasic, competent, compressible and demonstrates augmentation. Left brachial vein is compressible. Left cephalic vein is compressible. Left basilic vein is compressible. Left Lower Arm Left radial vein is compressible. Left ulnar vein is compressible. Interpretation Summary No evidence for acute deep venous thrombosis[left] upper extremity with patent and compressible cephalic and basilic veins. Normal flow patterns right subclavian vein Ordering Physician: Nic Wen Referring Physician: Issac Karimi Performed By: Luana Guzmán, STEPHEN, RVT ?
== END | disposition home or self-care (01) ==
LOC: CVS 13:46
PROVIDERS: Family Provider Family Medicine; PCP Family Medicine; Referring Provider Physician Assistant; Visit Provider Physician Assistant
DX: M79.89 Other specified soft tissue disorders (principal)
CPT/HCPCS: 93971

== ENCOUNTER → 2019-02-15 | Outpatient (CLI) | payer OTHER, SELFPAY ==
[2019-01-25 11:34] VITALS: BMI 32.4
--- NOTE | 2019-02-15 16:31 | BI_ITS ---
MAMMOGRAPHY - BILATERAL SCREENING REASON FOR EXAM: Female, 53 years old. Routine annual screening examination. PERTINENT HISTORY: Non-contributory. TECHNIQUE: Digital bilateral breast alycia (3D mammographic acquisition) in the CC and MLO projections. 2-D mediolateral oblique (MLO) and craniocaudad (CC) views of both breasts were obtained. CAD: Full Field Digital Mammography with Computer Added Detection was performed. COMPARISON: Comparison is made with prior study dated March 04, 2013. FINDINGS: Breast Composition: The breasts are heterogeneously dense, which may obscure small masses. There are no dominant masses or suspicious calcifications. Stable appearance of the bilateral axillary lymph nodes. No other significant abnormalities are identified. There has been no significant change since the prior study. BI/SCREEN MAMM (CAD) W/ALYCIA BILAT IMPRESSION: Stable bilateral screening mammogram. Yearly follow-up mammogram recommended. (A) ASSESSMENT CATEGORY: BIRADS Category 2: Benign. A letter regarding these results will be sent to the patient by the facility within 30 days. Approximately 10% of breast cancers are not detected by mammography. A normal mammogram should not delay biopsy of a clinically suspicious abnormality. [id number] Electronically Signed: Partha Winston, at 8:13 EDT , Service support ,
== END | disposition home or self-care (01) ==
LOC: OPBI 16:29
PROVIDERS: Family Provider Family Medicine; PCP Family Medicine; Referring Provider Family Medicine; Visit Provider Family Medicine
DX: Z12.31 Encounter for screening mammogram for malignant neoplasm of breast (principal)
CPT/HCPCS: 77063; 77067

== ENCOUNTER → 2019-04-14 | Outpatient (CLI) | payer OTHER, SELFPAY ==
[2019-01-25 11:34] VITALS: BMI 32.4
[2019-04-14 18:30] LABS: Carbamazepine (Tegretol) 10.9 ug/mL (4.0-12.0)
[2019-04-16 12:45] LABS: Hep B Surface Antibodies Non Reactive (.)
== END | disposition home or self-care (01) ==
LOC: MTLAB 16:39
PROVIDERS: Family Provider Family Medicine; PCP Family Medicine; Referring Provider Family Medicine; Visit Provider Family Medicine
DX: G40.909 Epilepsy, unspecified, not intractable, without status epilepticus (principal); Z01.84 Encounter for antibody response examination
CPT/HCPCS: 36415; 80156; 86706

== ENCOUNTER → 2019-04-16 | Outpatient (CLI) | payer OTHER, SELFPAY ==
[2019-01-25 11:34] VITALS: BMI 32.4
[2019-04-16 15:51] LABS: Absolute Lymphocyte Count 1.94 X10^3/uL (0.83-4.51); Absolute Neutrophil Count 5.7 X10^3/uL (2.0-7.7); Basophil# 0.09 X10^3/uL; Eosinophil# 0.25 X10^3/uL; Eosinophils% 2.9 % (0-5); Hemoglobin 13.2 g/dL (12.0-15.0); Lymphocyte # 1.94 X10^3/ul (4.0); Lymphocyte % 22.2 % (19-41); Mean Corp Hgb Conc 33.8 g/dL (32-36); Mean Corpuscular Hgb 30.1 pg (27.0-32.0); Mean Corpuscular Volume 88.8 fL (81-99); Mean Platelet Vol. 9.6 fl (6.2-12.0); Monocyte# 0.67 X10^3/uL; Monocyte% 7.7 % (0-10); NRBC Flagged by Analyzer 0 % (0-5); Neutrophil # 5.72 X10^3/uL (2.7-7.7); Neutrophil % 65.4 % (47-70); Platelet Count 286 K/mm3 (150-450); RBC Distribution Width CV 12.4 % (11.6-14.6); RBC Distribution Width SD 40.5 fl (35.1-43.9); Red Blood Count 4.39 M/mm3 (4.2-5.4); White Blood Count 8.7 K/mm3 (4.4-11.0)
[2019-04-16 16:05] LABS: ALB/GLOB Ratio 1.1 RATIO (0.9-2.4); AST(SGOT) 14 U/L (15-37); Alanine Aminotransfer ALT/SGPT 24 U/L (13-56); Alkaline Phosphatase 97 U/L (45-117); Anion Gap 9 (5-15); BUN 10 mg/dL (7-18); BUN/Creat Ratio 18.4 RATIO (10-20); Calcium,Total 8.9 mg/dL (8.5-10.1); Chloride 99 mmol/L (98-107); Cholesterol 229 mg/dL (200); Creatinine, Serum 0.54 mg/dL (0.55-1.02); EST Glomerular Filtration Rate 124 mL/min (>60); Est Glom Filt Rate - Afr Amer 150 mL/min (>60); Globulin 3.6 g/dL (2.2-4.2); Glucose 100 mg/dL (74-106); High Density Lipoprotein 60 mg/dL; Protein, Total 7.6 g/dL (6.4-8.2); Sodium Level 136 mmol/L (136-145); Triglycerides 99 mg/dL; Very Low Density Lipoprotein 20 mg/dL (5-40)
[2019-04-16 16:13] LABS: Vitamin B12 343 pg/mL (211-911); Vitamin D,25 Hydroxy 22.9 ng/mL (29.95-100.01)
== END | disposition home or self-care (01) ==
LOC: MFPLAB 13:35
PROVIDERS: Family Provider Family Medicine; PCP Family Medicine; Referring Provider Family Medicine; Visit Provider Family Medicine
DX: G40.909 Epilepsy, unspecified, not intractable, without status epilepticus (principal); E53.8 Deficiency of other specified B group vitamins; Z13.21 Encounter for screening for nutritional disorder; Z13.220 Encounter for screening for lipoid disorders
CPT/HCPCS: 36415; 80053; 80061; 82306; 82607; 85025

== ENCOUNTER 2019-06-23 15:32 | Inpatient (IN) | payer OTHER, SELFPAY ==
[2019-01-25 11:34] VITALS: BMI 32.4
[2019-06-23] VITALS (10 sets, daily range): BP systolic 129–153; BP diastolic 87–98; PULSE 86–99; RESP 16–17; TEMP 36.6–37; O2SAT 95–100; BMI 32.1; BMI 34.5; BMI 34.6
--- NOTE | 2019-06-23 15:43 | CT_ITS ---
STUDY: CT ABDOMEN AND PELVIS WITHOUT CONTRAST REASON FOR EXAM: Female, 54 years old. Left flank pain. RADIATION DOSAGE (If Supplied By Facility): CTDIvol = ( 18.82 ) mGy, DLP = ( 1029.67 ) mGycm TECHNIQUE: Transaxial images were obtained from the dome of the diaphragm to the symphysis pubis without oral contrast, and without intravenous contrast. Sagittal and coronal images were reconstructed. Individualized dose optimization techniques were used for this CT. COMPARISON: July 22, 2018 FINDINGS: The visualized lung bases are unremarkable. The visualized portions of the heart are within normal limits. The lack of intravenous contrast limits evaluation of solid visceral organs. Normal liver. There are surgical clips in the gallbladder fossa consistent with a prior cholecystectomy. Normal spleen. Normal pancreas. Normal bilateral adrenal glands. Normal right kidney. Normal left kidney. There is a small hiatal hernia. Normal small intestine. There is a moderate amount of stool throughout the colon and rectum. There is non-visualization of the appendix. There are scattered peripheral calcifications of the abdominal aorta and systemic atherosclerosis. Normal inferior vena cava. Normal retroperitoneum. Normal urinary bladder. Normal abdominal wall. There are diffuse degenerative changes of the visualized lumbar spine. The left femur is surgically absent. CT/Abdomen/Pelvis without Cont IMPRESSION: Moderate amount of stool throughout the colon and rectum. Atherosclerosis. Small hiatal hernia. Electronically Signed: Maday Dc MD at 16:33 EST Tel , Service support ,
--- NOTE | 2019-06-23 15:46 | ED.VIS.GEN ---
History of Present Illness Chief Complaint: Complaint Detail of Chief Complaint: Left flank pain, nausea, fever Informant: Patient Onset: Days - 2 days Context: Gradual Onset Timing: Waxes and wanes Current Severity: Moderate Maximum Severity: Moderate Narrative: Patient presents with feeling ill for the past 2 days. She does report some minimal dysuria and some left flank pain. She is a history of frequent UTIs and pyelonephritis. She has had subjective fever at home has been taking Tylenol and ibuprofen. She does report some nausea. She has no URI symptoms. - Past Medical History (1) Anxiety and depression Status: Chronic (2) Chronic pain syndrome Status: Chronic (3) History of disarticulation of left hip Status: Chronic (4) Hyperlipidemia Status: Chronic (5) Nephrolithiasis Status: Chronic (6) Seizure disorder Status: Chronic Past Medical History - Allergies and Home Meds Allergies/Adverse Reactions: Allergies metoclopramide HCl [From Reglan] Allergy (Verified 06/23/19 15:33) shaking SHAKING prochlorperazine edisylate [From Compazine] Allergy (Verified 06/23/19 15:33) Hives prochlorperazine maleate [From Compazine] Allergy (Verified 06/23/19 15:33) Hives promethazine HCl [From Phenergan] Allergy (Verified 06/23/19 15:33) Hives Primary Care Physician: Harshad Karimi MD [Primary Care Provider] - Doctors: Dr. Herrmann Surgical History: appendectomy, cholecystectomy, hysterectomy, - - LLE amputation s/p MRSA infection, Carpal tunnel surgery. Lives: Spouse/ Significant Other Smoking Status: Never smoker - Family History Maternal Family History: Reports: Hypertension Paternal Family History: Reports: Heart Disease - Father w/ first [place] 40s., Hypertension Review of Systems General: Reports: Fever, Subjective Eyes: Denies: Visual changes - bilaterally ENT: Denies: Bilateral ear pain Cardiovascular: Denies: Chest pain Respiratory: Denies: Dyspnea, Cough Gastrointestinal: Reports: Abdominal pain - Left flank pain, Nausea. Denies: Vomiting, Diarrhea Genitourinary: Reports: Dysuria Musculoskeletal: Reports: Back pain - Left flank Skin: Denies: Rash Neurological: Denies: Headache Hematologic: Denies: Easy bruising, Easy bleeding Allergy: Denies: Uticaria Physical Exam Vital Signs/Narrative: Vital Signs Temp Pulse Resp BP Pulse Ox 06/23/19 15:36 98.2 F 89 16 153/89 H 99 06/23/19 15:33 98.2 F 89 16 153/89 H 99 Inital Vital Signs reviewed: Yes General: Well nourished, Well developed Head: Normocephalic ENT: Moist mucous membranes Neck: Supple Cardiovascular: Regular rate, Regular rhythm Respiratory: No distress, CTA bilaterally Abdomen: Soft, Nontender, Hypoactive bowel sounds Back: CVA tenderness - Mild left CVA tenderness Extremities: - - Left lower extremity amputation Skin: Normal color Neurological: Alert, Oriented x3 Psychological: Tearful Diagnostic/Tx/Re-eval Impressions Abdomen/Pelvis CT 06/23/19 15:43 IMPRESSION: Moderate amount of stool throughout the colon and rectum. Atherosclerosis. Small hiatal hernia. Electronically Signed: Maday Dc MD at 16:33 EST Tel , Service support , 06/23/19 15:43 Abdomen/Pelvis without Cont [CT] Stat Laboratory Results 06/23/19 06/23/19 06/23/19 16:00 16:00 16:00 WBC 8.6 RBC 4.29 Hgb 13.0 Hct 37.3 MCV 86.9 MCH 30.3 MCHC 34.9 RDW Std Deviation 36.9 RDW Coeff of Adilia 11.7 Plt Count 288 MPV 9.9 Immature Gran % (Auto) 0.700 Neut % (Auto) 70.7 H Lymph % (Auto) 18.3 L [place] % (Auto) 7.0 Eos % (Auto) 2.4 Baso % (Auto) 0.9 Absolute Neuts (auto) 6.1 Absolute Lymphs (auto) 1.57 Nucleated RBC % 0 Sodium 128 L Potassium 5.4 H Chloride 95 L Carbon Dioxide 25.0 Anion Gap 8 BUN 7 Creatinine 0.45 L Estim Creat Clear Calc 116.85 Est GFR (MDRD) Af Amer 187 Est GFR (MDRD) Non-Af 155 BUN/Creatinine Ratio 15.7 Glucose 120 H Lactic Acid Cancelled Calcium 8.6 Urine Color Urine Clarity Urine pH Ur Specific [place] Urine Protein Urine Glucose (UA) Urine Ketones Urine Occult Blood Urine Nitrite Urine Bilirubin Urine Urobilinogen Ur Leukocyte Esterase Urine RBC Urine WBC Ur Squamous Epith Cells Urine Bacteria Urine Mucus Carbamazepine 06/23/19 06/23/19 06/23/19 16:00 16:40 17:00 WBC RBC Hgb Hct MCV MCH MCHC RDW Std Deviation RDW Coeff of Adilia Plt Count MPV Immature Gran % (Auto) Neut % (Auto) Lymph % (Auto) [place] % (Auto) Eos % (Auto) Baso % (Auto) Absolute Neuts (auto) Absolute Lymphs (auto) Nucleated RBC % Sodium Potassium Chloride Carbon Dioxide Anion Gap BUN Creatinine Estim Creat Clear Calc Est GFR (MDRD) Af Amer Est GFR (MDRD) Non-Af BUN/Creatinine Ratio Glucose Lactic Acid 1.4 Calcium Urine Color Yellow Urine Clarity Clear Urine pH 7.0 Ur Specific [place] 1.010 Urine Protein Negative Urine Glucose (UA) Normal Urine Ketones Negative Urine Occult Blood Negative Urine Nitrite Negative Urine Bilirubin Negative Urine Urobilinogen Normal Ur Leukocyte Esterase 25 H Urine RBC 0 SEEN Urine WBC 0-5 SEEN Ur Squamous Epith Cells 0-5 SEEN Urine Bacteria RARE Urine Mucus 0 SEEN Carbamazepine 16.6 H* - EKG Initial EKG Interpretation: Sinus Rhythm - Sinus at 85 with no acute ischemia. QTC is 490. - Medical Decision Making Patient was given IV fluids on arrival. Vital signs of been stable. I do not see sign of acute infection, however the patient's Tegretol level is elevated over 16 with resulting hyponatremia. This may be why she is feeling so ill. Cultures were obtained and are pending. Patient will be admitted for cardiac monitoring as well as monitoring of her sodium and Tegretol level. ED Disposition - Plan for ED Patient: Disposition: Acute Care Hospital [facility] Diagnosis: Tegretol toxicity, Hyponatremia Referrals: Harshad Karimi MD [Primary Care Provider] -
[2019-06-23] MEDS: 0.9% Normal Saline 1,000 ML 1000 ML IV (16:06)
[2019-06-23] MEDS: Ondansetron 4 MG/2 ML Vial IV (16:07)
[2019-06-23 16:13] LABS: Absolute Lymphocyte Count 1.57 X10^3/uL (0.83-4.51); Absolute Neutrophil Count 6.1 X10^3/uL (2.0-7.7); Basophil# 0.08 X10^3/uL; Basophil% 0.9 % (0-1); Eosinophil# 0.21 X10^3/uL; Eosinophils% 2.4 % (0-5); Hematocrit 37.3 % (37-47); Lymphocyte # 1.57 X10^3/ul (4.0); Lymphocyte % 18.3 % (19-41); Mean Corp Hgb Conc 34.9 g/dL (32-36); Mean Corpuscular Hgb 30.3 pg (27.0-32.0); Mean Corpuscular Volume 86.9 fL (81-99); Mean Platelet Vol. 9.9 fl (6.2-12.0); NRBC Flagged by Analyzer 0 % (0-5); Neutrophil # 6.07 X10^3/uL (2.7-7.7); Neutrophil % 70.7 % (47-70); Platelet Count 288 K/mm3 (150-450); RBC Distribution Width CV 11.7 % (11.6-14.6); RBC Distribution Width SD 36.9 fl (35.1-43.9); Red Blood Count 4.29 M/mm3 (4.2-5.4); White Blood Count 8.6 K/mm3 (4.4-11.0)
--- NOTE | 2019-06-23 16:45 | NURSING ---
CHEMISTRIES HEMOLIZED
[2019-06-23 16:51] LABS: Mucous, Urine 0 SEEN /hpf (<or=2+); Red Blood Cells-Urine 0 SEEN /hpf (0-5)
[2019-06-23 16:54] LABS: Color, Urine Yellow (Yellow); Glucose, Dipstick Normal (Normal); Ketone-Dipstick Negative (Negative); Leukocyte Esterase-Dipstick 25 /ul (Negative); Nitrite-Dipstick Negative (Negative); Occult Blood-Urine Negative /ul (Negative); Protein-Dipstick Negative (Negative); Urine Bilirubin Dipstick Negative (Negative); Urine Clarity Clear (Clear); Urine Urobilinogen Normal (Normal)
[2019-06-23 17:01] LABS: Bacteria RARE /hpf (None Seen); Squamous Epithelial Cells - UA 0-5 SEEN /hpf (5-10); White Blood Cells 0-5 SEEN /hpf (0-5)
[2019-06-23 17:15] LABS: Carbamazepine (Tegretol) 16.6 ug/mL (4.0-12.0)
--- NOTE | 2019-06-23 17:22 | EKG12_ITS ---
Test Reason : Blood Pressure : / mmHG Vent. Rate : 085 BPM Atrial Rate : 085 BPM P-R Int : 194 ms QRS Dur : 094 ms QT Int : 412 ms P-R-T Axes : 039 003 032 degrees QTc Int : 490 ms Normal sinus rhythm with sinus arrhythmia Prolonged QT Abnormal ECG Confirmed by DINO ESPINOSA, TRICIA ([id number]), senior technical editor MARILYN HAMPTON ([id number]) on 06/30/2019 11:33:35 AM Referred By: Kirstie Myles Confirmed By:MARKIE SUN MD
[2019-06-23 17:29] LABS: Anion Gap 8 (5-15); BUN 7 mg/dL (7-18); BUN/Creat Ratio 15.7 RATIO (10-20); Calcium,Total 8.6 mg/dL (8.5-10.1); Chloride 95 mmol/L (98-107); Creatinine, Serum 0.45 mg/dL (0.55-1.02); EST Glomerular Filtration Rate 155 mL/min (>60); Est Glom Filt Rate - Afr Amer 187 mL/min (>60); Estimated Creatinine Clearance 116.85 ml/min; Glucose 120 mg/dL (74-106); Potassium 5.4 mmol/L (3.5-5.1); Sodium Level 128 mmol/L (136-145)
[2019-06-23] MEDS: 0.9% Normal Saline 1,000 ML 150 ML IV (17:38)
[2019-06-23 17:53] LABS: Lactic Acid 1.4 mmol/L (0.4-1.9)
--- NOTE | 2019-06-23 18:00 | HP.PCM_ITS ---
<Madeline Carver - Last Filed: 06/23/19 18:45> Problem List (1) Tegretol toxicity Status: Acute (2) Hyponatremia Status: Acute (3) Nephrolithiasis Status: Chronic (4) History of disarticulation of left hip Status: Chronic (5) Chronic pain syndrome Status: Chronic (6) Anxiety and depression Status: Chronic (7) Obesity (BMI 30.0-34.9) Status: Chronic (8) UTI (urinary tract infection) Status: Resolved Qualifiers: Urinary tract infection type: acute cystitis Comment: E. Coli and Enterococcus (9) Pyelonephritis Status: Ruled-out (10) Seizure disorder Status: Chronic (11) Obesity Status: Chronic Qualifiers: Obesity type: due to excess calories Obesity classification: adult class 1 (BMI 30 - 34.9) Serious obesity comorbidity presence: unspecified whether serious comorbidity present Body mass index: BMI 32.0-32.9 Qualified Code(s): E66.09 - Other obesity due to excess calories; Z68.32 - Body mass index (BMI) 32.0-32.9, adult (12) S/P unilateral above knee amputation Status: Chronic (13) Hyperlipidemia Status: Chronic Qualifiers: Hyperlipidemia type: unspecified Qualified Code(s): E78.5 - Hyperlipidemia, unspecified (14) Phantom limb syndrome Status: Chronic (15) Right sided weakness Status: Chronic (16) Cephalgia Status: Chronic History of Present Illness Date of Admission: 06/23/19 Chief Complaint: Fatigue, malaise. The patient is a 54 year old F who presents to the Emergency Room due to fatigue and general malaise. She states overall she has not been feeling well for the past 2 days. She denies fever, chills. Denies upper respiratory symptoms. Denies urinary symptoms. Denies nausea, vomiting, diarrhea, abdominal pain. Patient denies any vision changes, palpitations, chest pain. Her Tegretol level was noted to be elevated in the emergency room and sodium level low. 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 Past Medical History Past Medical History (Chronic Problems): Chronic Problems Nephrolithiasis (Chronic) History of disarticulation of left hip (Chronic) Chronic pain syndrome (Chronic) Anxiety and depression (Chronic) Obesity (BMI 30.0-34.9) (Chronic) Seizure disorder (Chronic) Obesity (Chronic) S/P unilateral above knee amputation (Chronic) Hyperlipidemia (Chronic) Phantom limb syndrome (Chronic) Right sided weakness (Chronic) Cephalgia (Chronic) Allergies metoclopramide HCl [From Reglan] Allergy (Verified 06/23/19 15:33) shaking SHAKING prochlorperazine edisylate [From Compazine] Allergy (Verified 06/23/19 15:33) Hives prochlorperazine maleate [From Compazine] Allergy (Verified 06/23/19 15:33) Hives promethazine HCl [From Phenergan] Allergy (Verified 06/23/19 15:33) Hives Home Medications: Ambulatory Orders Medication Instructions Recorded Buprenorphine HCl 8 mg SL Q6H PRN PRN 02/05/14 Duloxetine Hcl [Cymbalta] 60 mg PO DAILY@0800 02/05/14 FA/Mv,Ca,Iron,Min/Lycopene/Lut 1 each PO DAILY 02/05/14 [Centravites Tablet] Pregabalin [Lyrica] 150 mg PO TID PRN 02/05/14 Acetaminophen [Tylenol] 1,000 mg PO DAILY PRN PRN 05/20/18 Ascorbic Acid [Vitamin C] 1,000 mg PO DAILY 05/20/18 Aspirin E.C. [Ecotrin] 81 mg PO DAILY 05/20/18 Quetiapine Fumarate [Quetiapine 300 mg PO QHS 05/20/18 Fumarate ER] Baclofen [Lioresal] 10 mg PO Q6H PRN PRN 09/07/18 Carbamazepine [Carbamazepine ER] 800 mg PO DAILY 09/07/18 Duloxetine HCl 30 mg PO QHS 06/23/19 Surgical History: appendectomy, cholecystectomy, hysterectomy, - - LLE amputation s/p MRSA infection, Carpal tunnel surgery. 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, Depression RESEARCH AFFILIATE History: No pertinent RESEARCH AFFILIATE history Lives: Spouse/ Significant Other Smoking Status: Never smoker Alcohol: None Drugs: None - *Family History Maternal History Items: Hypertension Paternal History Items: Heart Disease - Father w/ first [place] 40s., Hypertension Review of Systems Constitutional: Reports: Malaise, Weakness. Denies: Chills, Fever HEENT: Denies: Head Aches, Sinus Congestion, Sinus Drainage Cardiovascular: Denies: Chest Pain, Palpitations Respiratory: Denies: Cough, Shortness of breath at rest, Sputum production Gastrointestinal: Denies: Abdominal Pain, Nausea, Vomiting Genitourinary: Denies: Dysuria Musculoskeletal: Denies: Joint Pain, Joint Tenderness Skin: Denies: Rash, Wounds Neurological: Denies: Numbness, Tingling, Focal weakness Psychiatric: Reports: Anxiety, Depression Hematologic/ Lymphatic: Denies: Easy Bruising, Easy Bleeding VTE Information - Inpt Only VTE Present on Admission: No VTE Mechan Device Prophylaxis: None VTE Pharm Prophylaxis ordered?: Yes Patient Problems: Active and Suspected Problems Tegretol toxicity (Acute) Hyponatremia (Acute) - Physical Exam Vitals/I&O's: Vital Signs Temp Pulse Resp BP Pulse Ox 98.6 F 89 17 148/95 H 96 06/23/19 17:00 06/23/19 17:32 06/23/19 17:32 06/23/19 17:32 06/23/19 17:32 Oxygen Delivery Method Room Air Weight: 181 lb Body Mass Index (BMI) 32.1 Finger Stick Blood Glucose 87 Intake and Output for Last 24 Hours 06/21/19 06/22/19 06/23/19 23:59 23:59 23:59 Intake Total 1000 / 1000 Balance 1000 / 1000 General: Alert, Oriented x3, Cooperative HEENT: Atraumatic Neck: Supple, No JVD, Negative Carotid Bruits Lungs: Clear to auscultation, Normal air movement Cardiovascular: Regular rate, Regular Rhythm, Normal S1, Normal S2, No murmurs Abdomen: Bowel Sounds Present, Soft, Non Tender, Non-Distended Extremities: No clubbing, No cyanosis, - - Left lower extremity amputation Skin: No rashes, No breakdown Musculoskeletal: No Tenderness to Palpation of Joints or Extremities Neurological: Cranial nerves II-XII grossly intact, Neuro grossly intact Psych/Mental Status: Normal Affect, Appropriate Laboratory Results 06/23/19 16:00: WBC 8.6, RBC 4.29, Hgb 13.0, Hct 37.3, MCV 86.9, MCH 30.3, MCHC 34.9, RDW Std Deviation 36.9, RDW Coeff of Adilia 11.7, Plt Count 288, MPV 9.9, Immature Gran % (Auto) 0.700, Neut % (Auto) 70.7 H, Lymph % (Auto) 18.3 L, [place] % (Auto) 7.0, Eos % (Auto) 2.4, Baso % (Auto) 0.9, Absolute Neuts (auto) 6.1, Absolute Lymphs (auto) 1.57, Nucleated RBC % 0 06/23/19 16:00: Sodium 128 L, Potassium 5.4 H, Chloride 95 L, Carbon Dioxide 25.0, Anion Gap 8, BUN 7, Creatinine 0.45 L, Estim Creat Clear Calc 116.85, Est GFR (MDRD) Af Amer 187, Est GFR (MDRD) Non-Af 155, BUN/Creatinine Ratio 15.7, Glucose 120 H, Calcium 8.6 06/23/19 16:00: Lactic Acid Cancelled 06/23/19 16:00: Carbamazepine 16.6 H* 06/23/19 16:40: Urine Color Yellow, Urine Clarity Clear, Urine pH 7.0, Ur Specific [place] 1.010, Urine Protein Negative, Urine Glucose (UA) Normal, Urine Ketones Negative, Urine Occult Blood Negative, Urine Nitrite Negative, Urine Bilirubin Negative, Urine Urobilinogen Normal, Ur Leukocyte Esterase 25 H, Urine RBC 0 SEEN, Urine WBC 0-5 SEEN, Ur Squamous Epith Cells 0-5 SEEN, Urine Bacteria RARE, Urine Mucus 0 SEEN 06/23/19 17:00: Lactic Acid 1.4 Current Medications Sodium Chloride () 1,000 mls @ 150 mls/hr IV .Q6H40M [facility] Last Admin: 06/23/19 17:38 Dose: 150 mls/hr Documented by: Assessment/Plan All Active Problems Tegretol toxicity (Acute) Hyponatremia (Acute) Pyelonephritis (Ruled-out) Acute encephalopathy (Resolved) UTI (urinary tract infection) (Resolved) 1. Hyponatremia- IV fluids, trend BMP. 2. History of complex partial seizure on Tegretol with supratherapeutic level- hold, IV fluids. Repeat level in a.m. Monitor telemetry. Patient's Tegretol level has been managed by primary care physician and she has not followed up with neurology in several years. Patient agreeable to following up with primary neurologist at discharge for dosage adjustment/medication recommendations given fluctuation in Tegretol level. 3. History of recurrent complicated/frequent UTI-UA on admission benign. 4. Left lower extremity amputation secondary to persistent MRSA infection with chronic pain syndrome/phantom leg syndrome-on Lyrica, Subutex and baclofen. 5. Anxiety/depression-continue home cymbalta, seroquel regimen. 6. Hyperlipidemia- not on regimen. DVT prophylaxis- Lovenox sc This patient was seen by YESSY Montenegro under the supervision of Dr. Myles. <Kirstie Myles - Last Filed: 06/23/19 21:58> History of Present Illness The patient is a 54 year old F [] Past Medical History Allergies metoclopramide HCl [From Reglan] Allergy (Verified 06/23/19 15:33) shaking SHAKING prochlorperazine edisylate [From Compazine] Allergy (Verified 06/23/19 15:33) Hives prochlorperazine maleate [From Compazine] Allergy (Verified 06/23/19 15:33) Hives promethazine HCl [From Phenergan] Allergy (Verified 06/23/19 15:33) Hives - Physical Exam Vitals/I&O's: Vital Signs Temp Pulse Resp BP Pulse Ox 98.2 F 90 16 153/98 H 95 06/23/19 19:07 06/23/19 19:07 06/23/19 19:07 06/23/19 19:07 06/23/19 19:07 Oxygen Delivery Method Room Air Weight: 88.5 kg Body Mass Index (BMI) 34.5 Finger Stick Blood Glucose 87 Intake and Output for Last 24 Hours 06/21/19 06/22/19 06/23/19 23:59 23:59 23:59 Intake Total 1000 / 1000 Balance 1000 / 1000 Laboratory Results 06/23/19 16:00: WBC 8.6, RBC 4.29, Hgb 13.0, Hct 37.3, MCV 86.9, MCH 30.3, MCHC 34.9, RDW Std Deviation 36.9, RDW Coeff of Adilia 11.7, Plt Count 288, MPV 9.9, Immature Gran % (Auto) 0.700, Neut % (Auto) 70.7 H, Lymph % (Auto) 18.3 L, [place] % (Auto) 7.0, Eos % (Auto) 2.4, Baso % (Auto) 0.9, Absolute Neuts (auto) 6.1, Absolute Lymphs (auto) 1.57, Nucleated RBC % 0 06/23/19 16:00: Sodium 128 L, Potassium 5.4 H, Chloride 95 L, Carbon Dioxide 25.0, Anion Gap 8, BUN 7, Creatinine 0.45 L, Estim Creat Clear Calc 116.85, Est GFR (MDRD) Af Amer 187, Est GFR (MDRD) Non-Af 155, BUN/Creatinine Ratio 15.7, Glucose 120 H, Calcium 8.6 06/23/19 16:00: Lactic Acid Cancelled 06/23/19 16:00: Carbamazepine 16.6 H* 06/23/19 16:40: Urine Color Yellow, Urine Clarity Clear, Urine pH 7.0, Ur Specific [place] 1.010, Urine Protein Negative, Urine Glucose (UA) Normal, Urine Ketones Negative, Urine Occult Blood Negative, Urine Nitrite Negative, Urine Bilirubin Negative, Urine Urobilinogen Normal, Ur Leukocyte Esterase 25 H, Urine RBC 0 SEEN, Urine WBC 0-5 SEEN, Ur Squamous Epith Cells 0-5 SEEN, Urine Bacteria RARE, Urine Mucus 0 SEEN 06/23/19 17:00: Lactic Acid 1.4 06/23/19 17:01: Total Bilirubin 0.30, Direct Bilirubin 0.11, AST 22, ALT 23, Alkaline Phosphatase 100, Total Protein 7.1, Albumin 3.5, Globulin 3.6 Current Medications Acetaminophen (Tylenol) 650 mg PO Q6H PRN PRN PRN Reason: Pain Score 1-3/Temp > 100.7 F Al Hydroxide/Mg Hydroxide (Mylanta Ii) 30 ml PO Q6H PRN PRN PRN Reason: Gastric Burning Albuterol Sulfate (Ventolin Aerosols) 2.5 mg INHALATION Q2H PRN PRN PRN Reason: SOB/Wheezing Ascorbic Acid (Vitamin C) 1,000 mg PO DAILY [facility] Aspirin (Ecotrin) 81 mg PO DAILYCM [facility] Baclofen (Lioresal) 10 mg PO Q6H PRN PRN PRN Reason: Pain Score 1-10/10 Buprenorphine HCl (Buprenorphine Hcl) 36 mg SL DAILY TABBY Duloxetine HCl (Cymbalta) 60 mg PO DAILYCM [facility] Duloxetine HCl (Cymbalta) 30 mg PO QHS TABBY Heparin Sodium (Porcine) (Heparin Na) 5,000 unit SC Q8 [facility] Sodium Chloride () 1,000 mls @ 150 mls/hr IV .Q6H40M [facility] Last Admin: 06/23/19 17:38 Dose: 150 mls/hr Documented by: Methenamine Hippurate (Hiprex) 1 gm PO BID [facility] Multivitamins/Minerals (Multivitamin With Minerals) 1 tablet PO DAILY@0800 [facility] Nutritional Formula (Lactose Free) (Ensure Enlive) 120 ml PO 4X/DAY [facility] Ondansetron HCl (Zofran) 4 mg IV Q6H PRN PRN PRN Reason: NAUSEA/VOMITING Phenazopyridine HCl (Azo Standard) 190 mg PO TIDCM TABBY Pregabalin (Lyrica) 150 mg PO TID PRN PRN PRN Reason: Pain Score 1-10/10 Quetiapine Fumarate (Seroquel Xr) 300 mg PO QHS [facility] Sodium Chloride () 10 - 40 ml IV UD PRN PRN Reason: SALINE FLUSH Assessment/Plan This patient was seen in conjunction with Madeline Carver COMB FIXER. I have independently interviewed and examined the patient and reviewed pertinent historical, laboratory, and other data. Please refer to her note for patient's presentation, findings, and recommendations. 54 y/o female with PMHx of complex partial seizures, last seizure was 24 years ago, hypertension, s/p left lower leg amputation on account of MRSA admitted with fatigue, malaise. She had h/o recurrent UTI and thought she was getting a UTI again. Denies upper respiratory symptoms, urinary symptoms, nausea, vomiting, diarrhea, abdominal pain, vision changes, palpitations, chest pain. Her Tegretol level was noted to be elevated in the emergency room at 16.6 and sodium level was 128. Vitals were reviewed -stable Physical Exam: Gen: Comfortable, not pale, not jaundiced, alert oriented x3 CVS:HS I +II, regular, no murmurs RESP: CTA GI: BS present and normal, nontender, no palpable organs EXT:s/p left lower limb amputation, no edema in right leg Labs reviewed: ASSESSMENT: 1. Hyponatremia 2. Elevated tegretol levels, without symptoms 3. Hyperkalemia 4. Complex partial seizure 5. Hypertension Meds reviewed Plan: IVF, repeat BMP at 9pm and in am Hold Tegretol Repeat tegretol level in am Code Visit Inpatient E&M: 73093 Init Hosp L2
--- NOTE | 2019-06-23 18:13 | NURSING ---
PCU HYPONATREMIA PAINTSIL
[2019-06-23 18:30] LABS: AST(SGOT) 22 U/L (15-37); Alanine Aminotransfer ALT/SGPT 23 U/L (13-56); Albumin, Serum 3.5 g/dL (3.2-5.0); Alkaline Phosphatase 100 U/L (45-117); Bilirubin, Direct 0.11 mg/dL (0.00-0.30); Globulin 3.6 g/dL (2.2-4.2); Protein, Total 7.1 g/dL (6.4-8.2)
[2019-06-23] MEDS: DULoxetine Hcl 30 MG Capsule PO (21:22)
[2019-06-23] MEDS: Methenamine Hippurate 1 GM Tablet PO (21:22)
[2019-06-23] MEDS: Heparin Injection (Vial) 5,000 UNIT/ML VIAL 5000 UNIT SC (21:22)
[2019-06-23] MEDS: Baclofen 10 MG Tablet PO (21:22)
[2019-06-23] MEDS: Pregabalin 75 MG Capsule 150 MG PO (21:22)
[2019-06-23 21:30] LABS: Anion Gap 4 (5-15); BUN 7 mg/dL (7-18); BUN/Creat Ratio 13.6 RATIO (10-20); Chloride 96 mmol/L (98-107); Creatinine, Serum 0.52 mg/dL (0.55-1.02); EST Glomerular Filtration Rate 131 mL/min (>60); Est Glom Filt Rate - Afr Amer 159 mL/min (>60); Estimated Creatinine Clearance 101.12 ml/min; Glucose 109 mg/dL (74-106); Potassium 4.1 mmol/L (3.5-5.1); Sodium Level 129 mmol/L (136-145)
[2019-06-23] MEDS: QUEtiapine 100 MG Tablet 300 MG PO (21:46)
[2019-06-23] MEDS: BUPRENORPHINE HCL 8 MG TAB.SUBL SL (22:03)
[2019-06-24] MEDS: 0.9% Normal Saline 1,000 ML 150 ML IV ×2 (00:48→07:09)
[2019-06-24 03:02] VITALS: PULSE 80
[2019-06-24 04:07] VITALS: BP 103/60; PULSE 85; RESP 18; TEMP 37.2; O2SAT 95
[2019-06-24] MEDS: Pregabalin 75 MG Capsule 150 MG PO (05:07)
[2019-06-24] MEDS: BUPRENORPHINE HCL 8 MG TAB.SUBL SL ×2 (05:08→11:24)
[2019-06-24] MEDS: Heparin Injection (Vial) 5,000 UNIT/ML VIAL 5000 UNIT SC (05:08)
[2019-06-24 06:22] LABS: Absolute Lymphocyte Count 2.92 X10^3/uL (0.83-4.51); Absolute Neutrophil Count 3.7 X10^3/uL (2.0-7.7); Basophil# 0.07 X10^3/uL; Basophil% 0.9 % (0-1); Eosinophil# 0.21 X10^3/uL; Eosinophils% 2.8 % (0-5); Hematocrit 32.4 % (37-47); Lymphocyte # 2.92 X10^3/ul (4.0); Lymphocyte % 38.6 % (19-41); Mean Corpuscular Hgb 29.8 pg (27.0-32.0); Mean Corpuscular Volume 87.8 fL (81-99); Mean Platelet Vol. 9.7 fl (6.2-12.0); Monocyte# 0.67 X10^3/uL; Monocyte% 8.9 % (0-10); NRBC Flagged by Analyzer 0 % (0-5); Neutrophil # 3.65 X10^3/uL (2.7-7.7); Neutrophil % 48.1 % (47-70); Platelet Count 265 K/mm3 (150-450); RBC Distribution Width CV 11.6 % (11.6-14.6); RBC Distribution Width SD 37.3 fl (35.1-43.9); Red Blood Count 3.69 M/mm3 (4.2-5.4); White Blood Count 7.6 K/mm3 (4.4-11.0)
[2019-06-24 06:49] LABS: Carbamazepine (Tegretol) 11.9 ug/mL (4.0-12.0)
[2019-06-24 06:52] LABS: AST(SGOT) 17 U/L (15-37); Alanine Aminotransfer ALT/SGPT 23 U/L (13-56); Alkaline Phosphatase 87 U/L (45-117); Anion Gap 5 (5-15); BUN 8 mg/dL (7-18); BUN/Creat Ratio 17.5 RATIO (10-20); Calcium,Total 7.9 mg/dL (8.5-10.1); Chloride 100 mmol/L (98-107); Creatinine, Serum 0.46 mg/dL (0.55-1.02); EST Glomerular Filtration Rate 151 mL/min (>60); Est Glom Filt Rate - Afr Amer 182 mL/min (>60); Estimated Creatinine Clearance 114.31 ml/min; Glucose 114 mg/dL (74-106); Potassium 3.6 mmol/L (3.5-5.1); Sodium Level 134 mmol/L (136-145)
[2019-06-24 07:00] VITALS: PULSE 77
[2019-06-24] MEDS: Multivitamins,Ther W-Minerals Tablet 1 TABLET PO (07:42)
[2019-06-24] MEDS: Aspirin E.C. 81 MG Tablet PO (07:45)
[2019-06-24] MEDS: DULoxetine Hcl 60 MG Capsule PO (07:45)
[2019-06-24] MEDS: Ascorbic Acid 500 MG Tablet 1000 MG PO (07:46)
[2019-06-24 09:20] VITALS: BP 112/71; PULSE 84; RESP 16; TEMP 36.7; O2SAT 94
--- NOTE | 2019-06-24 10:40 | CASEMGMT ---
RN [employer] WORK[employer] CM to room to meet with patient for initial transition planning/care coordination assessment. RICHARD PIÑA introduced self and role at [facility]. Pt voices understanding and consents to assessment at this time. Pt resting in bed in no distress at this time. Pt is A/O at this time and answers all questions appropriately. Care providers, pharmacy, and demographics verified at this time. PCP: [facility] Specialists: Sees Dr Herrmann --urology, Dr Spears--[facility]--pain mgmt. [facility] used to see Dr Vuong--neurology, but it has been several years since she saw him last. States would like to start going back to him again, if possible, at the [place] office. Preferred Pharmacy: [facility] Insurance: [employer] Prescription Benefit: Yes Living Will/HPOA: LW or HCPOA: States thinks her and her have started the paperwork for AD, but she is not sure if they finished them. She was made aware SW can assist with completing paperwork while she is here at the hospital or as an out-pt if she chooses to later. She states she would like to talk to her first to see what has been completed. Given [employer] card with number to call if chooses in the future. LNOK: , [place]. Has 2 sons and a daughter. Living Arrangements: Lives with her in one-story home w/no steps to enter. Pt is independent w/ADL's. and pt share home mgmt tasks. Transportation: Pt and . States her is out-of-town and she does not have transportation home today. Made aware [facility] van transportation may be available to take her home. Pt states if they are not available, that she will call a cab. DME: States has the following DME: [id number] chair, rails/grab bars, hand held shower, crutches, W/C. Pt states no need for further DME at this time. HHC/SNF: Hx RU about 13 yrs ago after her amputation. Has had HHC in the past but does not remember the name of the agency. Denies needs @ discharge. Pt wishes to return home and states has no concerns with going home at time of discharge. CM to follow for any discharge planning/needs. Pt voices no further concerns/needs at this time. Advised pt to ask for CM if any further questions/concerns/needs arise. Voices understanding. Pt discharge plan: Home D/C Plan: Home Dashawn GRANT RN CM
--- NOTE | 2019-06-24 11:54 | DCINST_ITS ---
- Discharge Diagnoses Current Active Problems: Current Active and Chronic Problems Tegretol toxicity (Acute) Hyponatremia (Acute) You will use the following diet at home:: No restrictions Your food should be the consistency of: Regular Your liquids should be the consistency of: Regular/Thin Discharge Activity: Return to Normal Activity Additional Instructions: talk to your doctor about having your tegretol level and BMP checked at follow up. Allergies/Adverse Reactions: Allergies metoclopramide HCl [From Reglan] Allergy (Verified 06/23/19 15:33) shaking SHAKING prochlorperazine edisylate [From Compazine] Allergy (Verified 06/23/19 15:33) Hives prochlorperazine maleate [From Compazine] Allergy (Verified 06/23/19 15:33) Hives promethazine HCl [From Phenergan] Allergy (Verified 06/23/19 15:33) Hives Medications to take at Discharge Buprenorphine HCl 36 mg SL DAILY 02/05/14 Duloxetine Hcl [Cymbalta] 60 mg PO DAILY@0800 02/05/14 FA/Mv,Ca,Iron,Min/Lycopene/Lut [Centravites Tablet] 1 each PO DAILY 02/05/14 Pregabalin [Lyrica] 150 mg PO TID PRN 02/05/14 Acetaminophen [Tylenol] 1,000 mg PO DAILY PRN PRN 05/20/18 Ascorbic Acid [Vitamin C] 1,000 mg PO DAILY 05/20/18 Aspirin E.C. [Ecotrin] 81 mg PO DAILY 05/20/18 Quetiapine Fumarate [Quetiapine Fumarate ER] 300 mg PO QHS 05/20/18 Baclofen [Lioresal] 10 mg PO Q6H PRN PRN 09/07/18 Duloxetine HCl 30 mg PO QHS 06/23/19 Primary Care Physician: Harshad Karimi MD [Primary Care Provider] - Please follow up with your Primary Care Physician in: 1-2 weeks Test Results: Test results from this visit will be discussed in further detail at your follow- up appointment, if applicable. Please Follow Up With: Olman Vuong MD When: 1-2 weeks Proposed Discharge Date: 06/24/19
--- NOTE | 2019-06-24 13:21 | PCM.DC.SUM ---
<Jerome Stanford - Last Filed: 06/24/19 13:21> Discharge Date and Diagnosis Date of Admission: 06/23/19 Date of Discharge: 06/24/19 - Primary Discharge Diagnosis Active and Suspected Problems Generalized malaise secondary to hyponatremia secondary to Tegretol toxicity History of complex partial seizures Left AKA secondary to history of MRSA infection Chronic pain secondary to phantom limb syndrome from above amputation Anxiety depression Hyperlipidemia Small hiatal hernia incidental finding - Secondary Discharge Diagnosis Chronic Problems Nephrolithiasis (Chronic) History of disarticulation of left hip (Chronic) Chronic pain syndrome (Chronic) Anxiety and depression (Chronic) Obesity (BMI 30.0-34.9) (Chronic) Seizure disorder (Chronic) Obesity (Chronic) S/P unilateral above knee amputation (Chronic) Hyperlipidemia (Chronic) Phantom limb syndrome (Chronic) Right sided weakness (Chronic) Cephalgia (Chronic) Hospital Course and Treatment Imaging Results: CT/Abdomen/Pelvis without Cont IMPRESSION: Moderate amount of stool throughout the colon and rectum. Atherosclerosis. Small hiatal hernia. Operations: None Procedures: None Summary of Care Provided: Hospital course: The patient is a 54 year old F with past medical history notable for partial complex seizure that occurred about approximately 24 years prior after , since then has been treated with Tegretol, formerly a patient of for neurology care, who presented to the emergency room with complains of generalized malaise and fatigue. In the emergency room her Tegretol level was elevated at 16.6 and she was hyponatremic at 128, with elevated potassium of 5.4. She was felt to have generalized malaise secondary to hyponatremia secondary to Tegretol toxicity. Her Tegretol was discontinued and she was admitted to the PCU and placed on telemetry. CT scan of her abdomen was obtained which had an incidental finding of a small hiatal hernia. Her complete blood count was unremarkable, her urinalysis was negative. She was placed on IV normal saline overnight and her electrolytes normalized overnight, and her Tegretol level also normalized. She had no further symptoms of following day. Her Tegretol dose was decreased from 800-400. She has not seen in over a year and we advised her to follow-up within the next 1 to 2 weeks. She will also need to follow-up with her PCP in 1 to 2 weeks. At follow-up she will need her Tegretol level rechecked and a BMP checked as well to reassess her electrolytes. she was discharged home in stable condition. This patient was seen by Jerome Stanford PA-C under the supervision of Doctor Bg. [] - Physical Exam Vitals/I&O's: Vital Signs Temp Pulse Resp BP Pulse Ox 98.0 F 84 16 112/71 94 06/24/19 09:20 06/24/19 09:20 06/24/19 09:20 06/24/19 09:20 06/24/19 09:20 Oxygen Delivery Method Room Air Weight: 198 lb 10.184 oz Body Mass Index (BMI) 34.5 Finger Stick Blood Glucose 87 Intake and Output for Last 24 Hours 06/22/19 06/23/19 06/24/19 23:59 23:59 23:59 Intake Total 1000 / 1000 2722.5 / 2722.5 Balance 1000 / 1000 2722.5 / 2722.5 General: Alert, Oriented x3, Cooperative HEENT: Atraumatic, PERRLA, EOMI, Normocephalic Neck: Supple, No JVD, Negative Carotid Bruits Lungs: Clear to auscultation, Normal air movement Cardiovascular: Regular rate, No murmurs Abdomen: Bowel Sounds Present, Soft, Non Tender Extremities: No edema, Capillary Refill Less than 3 Seconds Skin: No rashes, No breakdown Musculoskeletal: No Tenderness to Palpation of Joints or Extremities, - - left AKA Neurological: Cranial nerves II-XII grossly intact Psych/Mental Status: Normal Affect, Appropriate, Alert and oriented to time, place, person, mood and affect Laboratory Results 06/23/19 16:00: WBC 8.6, RBC 4.29, Hgb 13.0, Hct 37.3, MCV 86.9, MCH 30.3, MCHC 34.9, RDW Std Deviation 36.9, RDW Coeff of Adilia 11.7, Plt Count 288, MPV 9.9, Immature Gran % (Auto) 0.700, Neut % (Auto) 70.7 H, Lymph % (Auto) 18.3 L, Cottle % (Auto) 7.0, Eos % (Auto) 2.4, Baso % (Auto) 0.9, Absolute Neuts (auto) 6.1, Absolute Lymphs (auto) 1.57, Nucleated RBC % 0 06/23/19 16:00: Sodium 128 L, Potassium 5.4 H, Chloride 95 L, Carbon Dioxide 25.0, Anion Gap 8, BUN 7, Creatinine 0.45 L, Estim Creat Clear Calc 116.85, Est GFR (MDRD) Af Amer 187, Est GFR (MDRD) Non-Af 155, BUN/Creatinine Ratio 15.7, Glucose 120 H, Calcium 8.6 06/23/19 16:00: Lactic Acid Cancelled 06/23/19 16:00: Carbamazepine 16.6 H* 06/23/19 16:40: Urine Color Yellow, Urine Clarity Clear, Urine pH 7.0, Ur Specific Opp 1.010, Urine Protein Negative, Urine Glucose (UA) Normal, Urine Ketones Negative, Urine Occult Blood Negative, Urine Nitrite Negative, Urine Bilirubin Negative, Urine Urobilinogen Normal, Ur Leukocyte Esterase 25 H, Urine RBC 0 SEEN, Urine WBC 0-5 SEEN, Ur Squamous Epith Cells 0-5 SEEN, Urine Bacteria RARE, Urine Mucus 0 SEEN 06/23/19 17:00: Lactic Acid 1.4 06/23/19 17:01: Total Bilirubin 0.30, Direct Bilirubin 0.11, AST 22, ALT 23, Alkaline Phosphatase 100, Total Protein 7.1, Albumin 3.5, Globulin 3.6 06/23/19 20:52: Sodium 129 L, Potassium 4.1, Chloride 96 L, Carbon Dioxide 29.0, Anion Gap 4 L, BUN 7, Creatinine 0.52 L, Estim Creat Clear Calc 101.12, Est GFR (MDRD) Af Amer 159, Est GFR (MDRD) Non-Af 131, BUN/Creatinine Ratio 13.6, Glucose 109 H, Calcium 8.0 L 06/24/19 05:55: Carbamazepine 11.9 06/24/19 05:55: WBC 7.6, RBC 3.69 L, Hgb 11.0 L, Hct 32.4 L, MCV 87.8, MCH 29.8, MCHC 34.0, RDW Std Deviation 37.3, RDW Coeff of Adilia 11.6, Plt Count 265, MPV 9.7, Immature Gran % (Auto) 0.700, Neut % (Auto) 48.1, Lymph % (Auto) 38.6, Cottle % (Auto) 8.9, Eos % (Auto) 2.8, Baso % (Auto) 0.9, Absolute Neuts (auto) 3.7, Absolute Lymphs (auto) 2.92, Nucleated RBC % 0 06/24/19 05:55: Sodium 134 L, Potassium 3.6, Chloride 100, Carbon Dioxide 29.0, Anion Gap 5, BUN 8, Creatinine 0.46 L, Estim Creat Clear Calc 114.31, Est GFR (MDRD) Af Amer 182, Est GFR (MDRD) Non-Af 151, BUN/Creatinine Ratio 17.5, Glucose 114 H, Calcium 7.9 L, Total Bilirubin 0.20, AST 17, ALT 23, Alkaline Phosphatase 87, Total Protein 6.0 L, Albumin 3.0 L, Globulin 3.0, Albumin/Globulin Ratio 1.0 Current Medications Acetaminophen (Tylenol) 650 mg PO Q6H PRN PRN PRN Reason: Pain Score 1-3/Temp > 100.7 F Al Hydroxide/Mg Hydroxide (Mylanta Ii) 30 ml PO Q6H PRN PRN PRN Reason: Gastric Burning Albuterol Sulfate (Ventolin Aerosols) 2.5 mg INHALATION Q2H PRN PRN PRN Reason: SOB/Wheezing Ascorbic Acid (Vitamin C) 1,000 mg PO DAILY [facility] Last Admin: 06/24/19 07:46 Dose: 1,000 mg Documented by: [facility]) [facility] Admin: 06/24/19 07:45 Dose: 81 mg Documented by: Baclofen (Lioresal) 10 mg PO Q6H PRN PRN PRN Reason: Pain Score 1-10/10 Last Admin: 06/23/19 21:22 Dose: 10 mg Documented by: Buprenorphine HCl (Buprenorphine Hcl) 8 mg SL Q6H PRN PRN PRN Reason: NOT SPECIFIED Last Admin: 06/24/19 11:24 Dose: 8 mg Documented by: Duloxetine HCl (Cymbalta) [facility] [place] Last Admin: 06/24/19 07:45 Dose: 60 mg Documented by: Duloxetine HCl (Cymbalta) 30 mg PO QHS [facility] Last Admin: 06/23/19 21:22 Dose: 30 mg Documented by: Heparin Sodium (Porcine) (Heparin Na) 5,000 unit SC Q8 [facility] Last Admin: 06/24/19 13:08 Dose: Not Given Documented by: Sodium Chloride () 1,000 mls @ 150 mls/hr IV .Q6H40M [facility] Last Admin: 06/24/19 07:09 Dose: 150 mls/hr Documented by: Magnesium Hydroxide (Milk Of Magnesia) 30 ml PO DAILY [facility] Last Admin: 06/24/19 07:45 Dose: Not Given Documented by: Multivitamins/Minerals (Multivitamin With Minerals) 1 tablet PO DAILY@0800 [facility] Last Admin: 06/24/19 07:42 Dose: 1 tablet Documented by: Nutritional Formula (Lactose Free) (Ensure Enlive) 120 ml PO 4X/DAY [facility] Last Admin: 06/24/19 13:08 Dose: Not Given Documented by: Ondansetron HCl (Zofran) 4 mg IV Q6H PRN PRN PRN Reason: NAUSEA/VOMITING Pregabalin (Lyrica) 150 mg PO TID PRN PRN PRN Reason: Pain Score 1-10/10 Last Admin: 06/24/19 05:07 Dose: 150 mg Documented by: Quetiapine Fumarate (Seroquel) 300 mg PO QHS [facility] Last Admin: 06/23/19 21:46 Dose: 300 mg Documented by: Senna/Docusate Sodium (Senokot-S, Joie-Colace) 2 tablet PO DAILY PRN PRN PRN Reason: CONSTIPATION Sodium Chloride () 10 - 40 ml IV UD PRN PRN Reason: SALINE FLUSH Discharge Diet: No Restrictions Discharge Activity: Return to Normal Activity Additional Activity Instructions:: Tegretol dose decreased from 800 to 400 Home Medications: Medications to take at Discharge Buprenorphine HCl 36 mg SL DAILY 02/05/14 Duloxetine Hcl [Cymbalta] 60 mg PO DAILY@0800 02/05/14 FA/Mv,Ca,Iron,Min/Lycopene/Lut [Centravites Tablet] 1 each PO DAILY 02/05/14 Pregabalin [Lyrica] 150 mg PO TID PRN 02/05/14 Acetaminophen [Tylenol] 1,000 mg PO DAILY PRN PRN 05/20/18 Ascorbic Acid [Vitamin C] 1,000 mg PO DAILY 05/20/18 Aspirin E.C. [Ecotrin] 81 mg PO DAILY 05/20/18 Quetiapine Fumarate [Quetiapine Fumarate ER] 300 mg PO QHS 05/20/18 Baclofen [Lioresal] 10 mg PO Q6H PRN PRN 09/07/18 Duloxetine HCl 30 mg PO QHS 06/23/19 Carbamazepine [Carbamazepine ER] 400 mg PO DAILY #30 tab.er.12h 06/24/19 Following Prescrptions Were Given to Patient: Carbamazepine [Carbamazepine ER] 400 mg PO DAILY #30 tab.er.12h Transmission Status: Received by [facility]/pharmacy #[id number] Primary Care Physician: Harshad Karimi MD [Primary Care Provider] - Please follow up with your Primary Care Physician in: 1-2 weeks Please Follow Up With: Olman Vuong MD When: 1-2 weeks Disposition: Home Minutes spent on discharge:: 35 Patient Condition:: Stable Medical Necessity - Tobacco Use Smoking Status: Never smoker Tobacco Use: Non-smoker, Secondhand Meaningful Use Info Meaningful Use Diagnoses (Choose all that apply): None applicable <Casey Pederson - Last Filed: 06/24/19 16:11> Discharge Date and Diagnosis - Secondary Discharge Diagnosis Chronic Problems Nephrolithiasis (Chronic) History of disarticulation of left hip (Chronic) Chronic pain syndrome (Chronic) Anxiety and depression (Chronic) Obesity (BMI 30.0-34.9) (Chronic) Seizure disorder (Chronic) Obesity (Chronic) S/P unilateral above knee amputation (Chronic) Hyperlipidemia (Chronic) Phantom limb syndrome (Chronic) Right sided weakness (Chronic) Cephalgia (Chronic) Hospital Course and Treatment Operations: None Procedures: None Summary of Care Provided: The patient is a 54 year old F presents with fatigue. Patient was found to have some hyponatremia on 128, potassium of 5.4 and an elevated Tegretol level of 16.6. Patient was monitored given IV fluids and sodium improved to 134. Patient had been on Tegretol for 27 years due to a seizure that she had with her . Been managed by a neurologist, Dr. Vuong, then deferred the management of this medication to the patient's primary care provider. We reached out to Dr. Vuong' office and they told her specifically that they would not make any recommendations on the Tegretol as the patient has not been seen in their office for over a year. So we then made the decision to decrease the Tegretol from 800 to 400 degrees and patient has been seizure-free for 27 years. Patient does have a follow-up appointment with Dr. Vuong next week. [] - Physical Exam Vitals/I&O's: Vital Signs Temp Pulse Resp BP Pulse Ox 36.8 C 112 H 18 126/63 H 95 06/24/19 13:52 06/24/19 13:52 06/24/19 13:52 06/24/19 13:52 06/24/19 13:52 Oxygen Delivery Method Room Air Weight: 90.1 kg Body Mass Index (BMI) 34.5 Finger Stick Blood Glucose 87 Intake and Output for Last 24 Hours 06/22/19 06/23/19 06/24/19 23:59 23:59 23:59 Intake Total 1000 / 1000 3722.5 / 3722.5 Balance 1000 / 1000 3722.5 / 3722.5 General: Alert, Cooperative HEENT: Atraumatic, Normocephalic Oral: Moist Mucosa, No Gingival or Mucosal Lesions/ Ulcerations Neck: No Nodes, Trachea Midline Lungs: Clear to auscultation, Normal air movement, No rhonchi, No wheeze Cardiovascular: Regular rate, Regular Rhythm Abdomen: Bowel Sounds Present, Soft, Non Tender, Non-Distended Extremities: No edema, No Calf Tenderness Skin: No rashes, No breakdown Musculoskeletal: No Tenderness to Palpation of Joints or Extremities, - Psych/Mental Status: Normal Affect, Appropriate Laboratory Results 06/23/19 16:00: WBC 8.6, RBC 4.29, Hgb 13.0, Hct 37.3, MCV 86.9, MCH 30.3, MCHC 34.9, RDW Std Deviation 36.9, RDW Coeff of Adilia 11.7, Plt Count 288, MPV 9.9, Immature Gran % (Auto) 0.700, Neut % (Auto) 70.7 H, Lymph % (Auto) 18.3 L, Cottle % (Auto) 7.0, Eos % (Auto) 2.4, Baso % (Auto) 0.9, Absolute Neuts (auto) 6.1, Absolute Lymphs (auto) 1.57, Nucleated RBC % 0 06/23/19 16:00: Sodium 128 L, Potassium 5.4 H, Chloride 95 L, Carbon Dioxide 25.0, Anion Gap 8, BUN 7, Creatinine 0.45 L, Estim Creat Clear Calc 116.85, Est GFR (MDRD) Af Amer 187, Est GFR (MDRD) Non-Af 155, BUN/Creatinine Ratio 15.7, Glucose 120 H, Calcium 8.6 06/23/19 16:00: Lactic Acid Cancelled 06/23/19 16:00: Carbamazepine 16.6 H* 06/23/19 16:40: Urine Color Yellow, Urine Clarity Clear, Urine pH 7.0, Ur Specific Opp 1.010, Urine Protein Negative, Urine Glucose (UA) Normal, Urine Ketones Negative, Urine Occult Blood Negative, Urine Nitrite Negative, Urine Bilirubin Negative, Urine Urobilinogen Normal, Ur Leukocyte Esterase 25 H, Urine RBC 0 SEEN, Urine WBC 0-5 SEEN, Ur Squamous Epith Cells 0-5 SEEN, Urine Bacteria RARE, Urine Mucus 0 SEEN 06/23/19 17:00: Lactic Acid 1.4 06/23/19 17:01: Total Bilirubin 0.30, Direct Bilirubin 0.11, AST 22, ALT 23, Alkaline Phosphatase 100, Total Protein 7.1, Albumin 3.5, Globulin 3.6 06/23/19 20:52: Sodium 129 L, Potassium 4.1, Chloride 96 L, Carbon Dioxide 29.0, Anion Gap 4 L, BUN 7, Creatinine 0.52 L, Estim Creat Clear Calc 101.12, Est GFR (MDRD) Af Amer 159, Est GFR (MDRD) Non-Af 131, BUN/Creatinine Ratio 13.6, Glucose 109 H, Calcium 8.0 L 06/24/19 05:55: Carbamazepine 11.9 06/24/19 05:55: WBC 7.6, RBC 3.69 L, Hgb 11.0 L, Hct 32.4 L, MCV 87.8, MCH 29.8, MCHC 34.0, RDW Std Deviation 37.3, RDW Coeff of Adilia 11.6, Plt Count 265, MPV 9.7, Immature Gran % (Auto) 0.700, Neut % (Auto) 48.1, Lymph % (Auto) 38.6, Cottle % (Auto) 8.9, Eos % (Auto) 2.8, Baso % (Auto) 0.9, Absolute Neuts (auto) 3.7, Absolute Lymphs (auto) 2.92, Nucleated RBC % 0 06/24/19 05:55: Sodium 134 L, Potassium 3.6, Chloride 100, Carbon Dioxide 29.0, Anion Gap 5, BUN 8, Creatinine 0.46 L, Estim Creat Clear Calc 114.31, Est GFR (MDRD) Af Amer 182, Est GFR (MDRD) Non-Af 151, BUN/Creatinine Ratio 17.5, Glucose 114 H, Calcium 7.9 L, Total Bilirubin 0.20, AST 17, ALT 23, Alkaline Phosphatase 87, Total Protein 6.0 L, Albumin 3.0 L, Globulin 3.0, Albumin/Globulin Ratio 1.0 Discharge Diet: No Restrictions Discharge Activity: Return to Normal Activity Disposition: Home Patient Condition:: Stable Medical Necessity - Tobacco Use Smoking Status: Never smoker Tobacco Use: Non-smoker Meaningful Use Info Meaningful Use Diagnoses (Choose all that apply): None applicable Code Visit OBSV E&M: 50817 Observation care discharge
[2019-06-24 13:52] VITALS: BP 126/63; PULSE 112; RESP 18; TEMP 36.8; O2SAT 95
== END 2019-06-24 14:54 | disposition home or self-care (01) | DRG 641 ==
LOC: ED 18:01 → PCU 18:40
PROVIDERS: Admitting Provider Internal Medicine; Emergency Provider Emergency Medicine; Family Provider Family Medicine; PCP Family Medicine; Referring Provider Internal Medicine
DX: E87.1 Hypo-osmolality and hyponatremia (principal); G40.209 Localization-related (focal) (partial) symptomatic epilepsy and epileptic syndromes with complex partial seizures, not intractable, without status epilepticus; T42.1X5A Adverse effect of iminostilbenes, initial encounter; R53.81 Other malaise; Z87.440 Personal history of urinary (tract) infections; Z87.442 Personal history of urinary calculi; E78.5 Hyperlipidemia, unspecified; G89.4 Chronic pain syndrome; K44.9 Diaphragmatic hernia without obstruction or gangrene; F41.9 Anxiety disorder, unspecified; F32.9 Major depressive disorder, single episode, unspecified; E66.9 Obesity, unspecified; Z89.612 Acquired absence of left leg above knee; Z86.14 Personal history of Methicillin resistant Staphylococcus aureus infection; Z79.82 Long term (current) use of aspirin; Z79.899 Other long term (current) drug therapy; Z68.32 Body mass index [BMI] 32.0-32.9, adult
CPT/HCPCS: 36415; 74176; 80048; 80053; 80076; 80156; 81001; 83605; 85025; 87040; 87086; 93005; 99285; J7030; A4216; J2405

== ENCOUNTER 2019-07-14 19:49 | Emergency (ER) | payer OTHER, SELFPAY ==
[2019-06-23 18:56] VITALS: BMI 34.5
[2019-07-14 19:50] VITALS: BP 155/90; PULSE 90; RESP 17; TEMP 37.1; O2SAT 97; BMI 31.8
[2019-07-14 20:40] LABS: Bacteria 0 SEEN /hpf (None Seen); Mucous, Urine 0 SEEN /hpf (<or=2+); Red Blood Cells-Urine 0 SEEN /hpf (0-5)
[2019-07-14 20:44] LABS: Color, Urine Yellow (Yellow); Glucose, Dipstick Normal (Normal); Ketone-Dipstick Negative (Negative); Leukocyte Esterase-Dipstick 25 /ul (Negative); Nitrite-Dipstick Negative (Negative); Occult Blood-Urine Negative /ul (Negative); Protein-Dipstick Negative (Negative); Urine Bilirubin Dipstick Negative (Negative); Urine Clarity Sl. Cloudy (Clear); Urine Urobilinogen Normal (Normal)
[2019-07-14 20:56] LABS: Amorphous Sediment 1+ URATE; Squamous Epithelial Cells - UA 0-5 SEEN /hpf (5-10); White Blood Cells 0-5 SEEN /hpf (0-5)
--- NOTE | 2019-07-14 21:34 | ED.DCSUM_ITS ---
History of Present Illness Chief Complaint: Complaint Informant: Patient Onset: Days Context: Gradual Onset Timing: Continuous Narrative: Patient is a 54-year-old female with history of urinary tract infections presen ting with fever and back pain. Patient states that she was treated with course of Bactrim by her urologist, Dr. Pederson, on 07/09. She finished antibiotics last night. She notes that starting yesterday she had fevers up to 101 and she has had worsening low back pain. She states is on both sides that radiates around to her left flank. She has had decreased appetite. She denies any associated nausea, vomiting, cough, abdominal pain or hematuria. She denies associate myalgias, sore throat or nasal congestion. She does report mild dysuria for the past day or 2. She does have remote history of kidney stones and states this feels different. Her urologist is not in the office today as it is a holiday so she came to the emergency room to be evaluated further. Past Medical History - Allergies and Home Meds Allergies/Adverse Reactions: Allergies metoclopramide HCl [From Reglan] Allergy (Verified 07/14/19 19:50) shaking SHAKING prochlorperazine edisylate [From Compazine] Allergy (Verified 07/14/19 19:50) Hives prochlorperazine maleate [From Compazine] Allergy (Verified 07/14/19 19:50) Hives promethazine HCl [From Phenergan] Allergy (Verified 07/14/19 19:50) Hives Primary Care Physician: Harshad Karimi MD [Primary Care Provider] - Past Medical History: - - Hyponatremia, kidney stones, anxiety/depression, pyelonephritis, seizure disorder, hyperlipidemia Surgical History: appendectomy, cholecystectomy, hysterectomy, - - LLE amputation s/p MRSA infection, Carpal tunnel surgery. Smoking Status: Never smoker - Family History Maternal Family History: Reports: Hypertension Paternal Family History: Reports: Heart Disease - Father w/ first [place] 40s., Hypertension Review of Systems General: Reports: Fever, Malaise. Denies: Chills, Sweats Eyes: Denies: Visual changes - bilaterally, Diplopia ENT: Denies: Rhinorrhea, Sore throat Cardiovascular: Denies: Chest pain, Palpitations Respiratory: Denies: Dyspnea, Cough, Dyspnea on exertion Gastrointestinal: Denies: Abdominal pain, Nausea, Vomiting, Diarrhea, Melena, Hematochezia Genitourinary: Denies: Dysuria, Hematuria, Frequency Musculoskeletal: Reports: Back pain. Denies: Extremity Pain Skin: Denies: Rash, Wounds Neurological: Denies: Headache, Weakness, Numbness Physical Exam Vital Signs/Narrative: Vital Signs Temp Pulse Resp BP Pulse Ox 07/14/19 19:50 98.8 F 90 17 155/90 H 97 Inital Vital Signs reviewed: Yes General: Well nourished, Well developed, No Acute Distress Head: Normocephalic, Atraumatic Eyes: Perrl, EOMI ENT: Moist mucous membranes, No rhinorrhea Neck: Supple, Nontender Cardiovascular: Regular rate, Regular rhythm, No murmurs Respiratory: No distress, CTA bilaterally, Chest nontender Abdomen: Soft, Nontender, Nondistended, Normal bowel sounds Back: Nontender, Normal Inspection, - - Lower lumbar paraspinal tenderness to palpation bilaterally. Negative for: CVA tenderness, Spinal tenderness Extremities: Nontender, No edema, - - Left AKA Skin: Normal color, No rash Neurological: Alert, Oriented x3, Cranial nerves II-XII grossly intact, Normal Strength, Normal Sensation Psychological: Normal affect, Normal Mood Diagnostic/Tx/Re-eval Laboratory Data 07/14/19 07/14/19 20:30 22:25 WBC 9.7 RBC 3.93 L Hgb 11.6 L Hct 35.0 L MCV 89.1 MCH 29.5 MCHC 33.1 RDW Std Deviation 38.5 RDW Coeff of Adilia 12.0 Plt Count 244 MPV 9.5 Immature Gran % (Auto) 0.600 Neut % (Auto) 59.7 Lymph % (Auto) 28.6 [place] % (Auto) 7.2 Eos % (Auto) 3.1 Baso % (Auto) 0.8 Absolute Neuts (auto) 5.8 Absolute Lymphs (auto) 2.77 Nucleated RBC % 0 Urine Color Yellow Urine Clarity Sl. Cloudy Urine pH 6.0 Ur Specific [place] 1.020 Urine Protein Negative Urine Glucose (UA) Normal Urine Ketones Negative Urine Occult Blood Negative Urine Nitrite Negative Urine Bilirubin Negative Urine Urobilinogen Normal Ur Leukocyte Esterase 25 H Urine RBC 0 SEEN Urine WBC 0-5 SEEN Ur Squamous Epith Cells 0-5 SEEN Amorphous Sediment 1+ URATE Urine Bacteria 0 SEEN Urine Mucus 0 SEEN - Medical Decision Making Patient is evaluated for intermittent fevers as well as back pain/dysuria. She is concerned that she has a urinary tract infection. Urinalysis shows 25 leukoesterase but is not consistent with a significant UTI. She has been on Bactrim however so urine culture is sent. White blood cell count is normal. Patient is well-appearing and afebrile. She does not appear septic. Patient does not want to wait for her BMP to result. She has appointment to see her urologist tomorrow morning and her labs were reviewed at that time. Patient is acting appropriately and has capacity to make her own medical decisions. I think it is reasonable for her to follow-up tomorrow with her specialist. She will be restarted on Bactrim as her symptoms are consistent with UTI and she does have a history of pyelonephritis. Patient is counseled on signs and symptoms requiring return to the emergency room. Patient verbalizes agreement and understand this plan. Patient discharged home in stable and improved condition. ED Disposition - Plan for ED Patient: Disposition: Home or Assisted Living Diagnosis: Dysuria, Fever Instructions: FEBRILE ILLNESS, Uncertain Cause (Adult), FLANK PAIN, Uncertain Cause Prescriptions: Smz/Tmp Ds [Bactrim Ds] 1 tab PO BID #10 tab Prescription Printed Referrals: Harshad Karimi MD [Primary Care Provider] - Additional Instructions: The exact cause of your fever and back pain is not clear today. I will restart you on antibiotics in case your UTI was not completely treated. Follow-up with your urologist tomorrow to go over the remaining laboratory results and for further recommendations. Return to emergency room with any worsening symptoms.
--- NOTE | 2019-07-14 22:26 | ED.RN ---
patient at this time would like to have blood drawn and discharged home. she was follow up appointment with Dr. Jon in AM.Dr. saldaña made aware will be in to see patient
[2019-07-14 22:39] LABS: Absolute Lymphocyte Count 2.77 X10^3/uL (0.83-4.51); Absolute Neutrophil Count 5.8 X10^3/uL (2.0-7.7); Basophil# 0.08 X10^3/uL; Basophil% 0.8 % (0-1); Eosinophils% 3.1 % (0-5); Hemoglobin 11.6 g/dL (12.0-15.0); Lymphocyte # 2.77 X10^3/ul (4.0); Lymphocyte % 28.6 % (19-41); Mean Corp Hgb Conc 33.1 g/dL (32-36); Mean Corpuscular Hgb 29.5 pg (27.0-32.0); Mean Corpuscular Volume 89.1 fL (81-99); Mean Platelet Vol. 9.5 fl (6.2-12.0); Monocyte% 7.2 % (0-10); NRBC Flagged by Analyzer 0 % (0-5); Neutrophil # 5.77 X10^3/uL (2.7-7.7); Neutrophil % 59.7 % (47-70); Platelet Count 244 K/mm3 (150-450); RBC Distribution Width SD 38.5 fl (35.1-43.9); Red Blood Count 3.93 M/mm3 (4.2-5.4); White Blood Count 9.7 K/mm3 (4.4-11.0)
[2019-07-14 22:43] VITALS: BP 139/91; PULSE 81; RESP 18; TEMP 37; O2SAT 98
[2019-07-14 23:06] LABS: AST(SGOT) 18 U/L (15-37); Alanine Aminotransfer ALT/SGPT 26 U/L (13-56); Albumin, Serum 3.6 g/dL (3.2-5.0); Alkaline Phosphatase 111 U/L (45-117); Anion Gap 5 (5-15); BUN 12 mg/dL (7-18); BUN/Creat Ratio 23.3 RATIO (10-20); Calcium,Total 8.6 mg/dL (8.5-10.1); Chloride 100 mmol/L (98-107); Creatinine, Serum 0.51 mg/dL (0.55-1.02); EST Glomerular Filtration Rate 132 mL/min (>60); Est Glom Filt Rate - Afr Amer 160 mL/min (>60); Globulin 3.5 g/dL (2.2-4.2); Glucose 96 mg/dL (74-106); Potassium 4.3 mmol/L (3.5-5.1); Protein, Total 7.1 g/dL (6.4-8.2); Sodium Level 133 mmol/L (136-145)
== END 2019-07-14 23:04 | disposition home or self-care (01) ==
PROVIDERS: Emergency Provider Emergency Medicine; Family Provider Family Medicine; PCP Family Medicine
DX: R30.0 Dysuria (principal); R50.9 Fever, unspecified; M54.5 Low back pain; F32.9 Major depressive disorder, single episode, unspecified; F41.9 Anxiety disorder, unspecified; G40.909 Epilepsy, unspecified, not intractable, without status epilepticus; Z87.440 Personal history of urinary (tract) infections; Z87.442 Personal history of urinary calculi; Z86.14 Personal history of Methicillin resistant Staphylococcus aureus infection; Z89.612 Acquired absence of left leg above knee; Z79.82 Long term (current) use of aspirin; Z79.899 Other long term (current) drug therapy
CPT/HCPCS: 36415; 80053; 81001; 85025; 87086; 87088; 99283

== ENCOUNTER → 2020-03-16 | Outpatient (CLI) | payer OTHER, SELFPAY | END | disposition home or self-care (01) | PROVIDERS: PCP Family Medicine; Referring Provider Family Medicine; Visit Provider Family Medicine | DX: Z20.828 Contact with and (suspected) exposure to other viral communicable diseases (principal) | CPT/HCPCS: 87635; U0003 ==

== ENCOUNTER → 2020-06-07 | Outpatient (CLI) | payer OTHER, SELFPAY ==
[2020-06-07 09:25] LABS: Mucous, Urine 0 SEEN /hpf (<or=2+)
[2020-06-07 10:58] LABS: Color, Urine Yellow (Yellow); Glucose, Dipstick Normal (Normal); Ketone-Dipstick Negative (Negative); Leukocyte Esterase-Dipstick 500 /ul (Negative); Nitrite-Dipstick Positive (Negative); Occult Blood-Urine 25 /ul (Negative); Protein-Dipstick 15 mg/dl (Negative); Urine Clarity Cloudy (Clear); Urine Urobilinogen 1 mg/dl (Normal)
[2020-06-07 11:08] LABS: Urine Bilirubin Dipstick 1 mg/dL (Negative)
[2020-06-07 11:20] LABS: Renal Epithelial Cells 0-5 SEEN /hpf (0-5); Squamous Epithelial Cells - UA 0-5 SEEN /hpf (5-10); White Blood Cells >100 SEEN /hpf (0-5)
[2020-06-07 11:21] LABS: Bacteria 3+ /hpf (None Seen); Red Blood Cells-Urine 0-5 SEEN /hpf (0-5)
== END | disposition home or self-care (01) ==
LOC: LABSPEC 09:24
PROVIDERS: PCP Family Medicine; Referring Provider Family Medicine; Visit Provider Family Medicine
DX: N39.0 Urinary tract infection, site not specified (principal)
CPT/HCPCS: 81001; 87086; 87088; 87186

== ENCOUNTER → 2020-06-13 | Outpatient (CLI) | payer OTHER, SELFPAY | END | disposition home or self-care (01) | LOC: LABSPEC 11:55 | PROVIDERS: PCP Family Medicine; Referring Provider Family Medicine; Visit Provider Family Medicine | DX: Z20.828 Contact with and (suspected) exposure to other viral communicable diseases (principal) | CPT/HCPCS: 87635; U0003 ==

== ENCOUNTER 2020-06-16 20:38 | Emergency (ER) | payer OTHER, SELFPAY ==
[2020-06-16 20:39] VITALS: BP 153/83; PULSE 108; RESP 16; TEMP 36.2; O2SAT 96; BMI 33.6
--- NOTE | 2020-06-16 21:07 | ED.VISSUMM ---
- ER Visit Summary Date of Service: 06/16/20 Chief Complaint: Left flank pain History of Present Illness: The patient is a 55 F known UTI currently on Keflex. She had a prior cholecystectomy, hysterectomy and left [id number] amputation of her leg from a MRSA infection from a prior knee surgery. Patient was diagnosed with UTI about a week ago. Was placed on Keflex last Friday. She started feeling better in the last couple days she has had recurrent fevers and left flank pain. Nausea but no vomiting. She thinks she started having diarrhea from the antibiotic. Fevers been only as high as 100. Physical Examination: Middle-aged female no acute distress vital signs are stable. She is afebrile. Pulse ox 96% on room air no signs hypoxia. HEENT exam unremarkable. Neck nontender no lymphadenopathy. Lungs clear to auscultation bilaterally. Heart regular rhythm no murmur. Abdomen soft nontender normal bowel sounds no peritoneal signs. Extremities her left lower extremity has been amputated at the hip. The right lower extremity both upper extremities are unremarkable. Back nontender. No CVA tenderness. Neurologically she is awake alert with no focal weakness. Test Results:. White count 8. Hemoglobin 12. Electrolytes normal. Gap 6. Normal BUN and creatinine is 0.7. Urinalysis normal. No nitrates. No white cells. No red cells. No bacteria. Emergency Department Course and Treatment: Middle-aged female with recent UTI now with recurrent symptoms and possible pyelonephritis. She will be treated with IV Toradol for pain. She do not need or want a thing for nausea. Labs are being obtained. Treatment Plan: Repeat exam patient is doing well at 10:34 PM. She feels much better. She and I went over all of her test results. She is comfortable being discharged to home. She will finish her Keflex and follow-up with her primary care physician. Return if feeling worse. Disposition: Discharge Impression: Status post recent acute UTI with left flank pain This note was generated with [employer] dictation software. It may contain incorrect words, spelling, and punctuation that were not noted in review of the chart prior to signing ED Disposition - Plan for ED Patient: Referrals: Harshad Karimi MD [Primary Care Provider] -
[2020-06-16 21:32] LABS: Absolute Lymphocyte Count 2.65 X10^3/uL (0.83-4.51); Absolute Neutrophil Count 4.5 X10^3/uL (2.0-7.7); Basophil# 0.11 X10^3/uL; Basophil% 1.3 % (0-1); Eosinophil# 0.35 X10^3/uL; Eosinophils% 4.1 % (0-5); Hematocrit 37.9 % (37-47); Hemoglobin 12.4 g/dL (12.0-15.0); Lymphocyte # 2.65 X10^3/ul (4.0); Lymphocyte % 31.3 % (19-41); Mean Corp Hgb Conc 32.7 g/dL (32-36); Mean Corpuscular Volume 88.8 fL (81-99); Mean Platelet Vol. 10.5 fl (6.2-12.0); Monocyte# 0.76 X10^3/uL; NRBC Flagged by Analyzer 0 % (0-5); Neutrophil # 4.45 X10^3/uL (2.7-7.7); Neutrophil % 52.5 % (47-70); Platelet Count 222 K/mm3 (150-450); RBC Distribution Width CV 12.5 % (11.6-14.6); RBC Distribution Width SD 40.2 fl (35.1-43.9); Red Blood Count 4.27 M/mm3 (4.2-5.4); White Blood Count 8.5 K/mm3 (4.4-11.0)
[2020-06-16] MEDS: Ketorolac 30 MG/ML Syringe IV (21:33)
[2020-06-16 21:45] LABS: Anion Gap 6 (5-15); BUN 9 mg/dL (7-18); BUN/Creat Ratio 12.8 RATIO (10-20); Calcium,Total 9.2 mg/dL (8.5-10.1); Chloride 106 mmol/L (98-107); EST Glomerular Filtration Rate 92 mL/min (>60); Est Glom Filt Rate - Afr Amer 111 mL/min (>60); Estimated Creatinine Clearance 74.23 ml/min; Glucose 153 mg/dL (74-106); Potassium 3.9 mmol/L (3.5-5.1); Sodium Level 143 mmol/L (136-145)
[2020-06-16] MEDS: Ceftriaxone 1 GM/50 ML BAG IV (21:54)
[2020-06-16 22:07] LABS: Bacteria 0 SEEN /hpf (None Seen); Mucous, Urine 0 SEEN /hpf (<or=2+); Red Blood Cells-Urine 0 SEEN /hpf (0-5); Squamous Epithelial Cells - UA 0 SEEN /hpf (5-10); White Blood Cells 0 SEEN /hpf (0-5)
[2020-06-16 22:08] LABS: Color, Urine Yellow (Yellow); Glucose, Dipstick Normal (Normal); Ketone-Dipstick Negative (Negative); Leukocyte Esterase-Dipstick 25 /ul (Negative); Nitrite-Dipstick Negative (Negative); Occult Blood-Urine Negative /ul (Negative); Protein-Dipstick Negative (Negative); Urine Bilirubin Dipstick Negative (Negative); Urine Clarity Clear (Clear); Urine Urobilinogen Normal (Normal)
--- NOTE | 2020-06-16 22:36 | ED.DEP ---
ED Disposition - Plan for ED Patient: Disposition: Home or Assisted Living Instructions: ED Flank Pain, Uncertain Cause Referrals: Harshad Karimi MD [Primary Care Provider] - 3-5 Days Additional Instructions: Plenty of fluids and rest. Tylenol and/or Motrin for pain. Finish your current antibiotic Keflex and follow-up with your doctor if you are not feeling better. Return if you are feeling a lot worse.
[2020-06-16 22:39] VITALS: BP 133/88; PULSE 89; RESP 16; O2SAT 92
[2020-06-16 23:07] VITALS: BP 133/88; PULSE 89; RESP 16; O2SAT 92
== END 2020-06-16 23:20 | disposition home or self-care (01) ==
PROVIDERS: Emergency Provider Emergency Medicine; PCP Family Medicine
DX: R10.9 Unspecified abdominal pain (principal); Z87.440 Personal history of urinary (tract) infections; Z79.2 Long term (current) use of antibiotics
CPT/HCPCS: 80048; 81001; 85025; 96365; 96375; 99285; A4216

== ENCOUNTER → 2020-07-04 | Outpatient (CLI) | payer OTHER, SELFPAY ==
[2020-06-16 20:39] VITALS: BMI 33.6
== END | disposition home or self-care (01) ==
LOC: LABSPEC 16:37
PROVIDERS: PCP Family Medicine; Referring Provider Family Medicine; Visit Provider Family Medicine
DX: M54.9 Dorsalgia, unspecified (principal)
CPT/HCPCS: 87086; 87088

== ENCOUNTER → 2020-07-06 | Outpatient (CLI) | payer OTHER, SELFPAY ==
[2020-06-16 20:39] VITALS: BMI 33.6
== END | disposition home or self-care (01) ==
PROVIDERS: PCP Family Medicine; Visit Provider Family Medicine
DX: N39.0 Urinary tract infection, site not specified (principal)
CPT/HCPCS: 87086

== ENCOUNTER → 2020-07-31 15:09 | Outpatient (CLI) | payer OTHER, SELFPAY | PROVIDERS: PCP Family Medicine; Visit Provider Family Medicine | DX: N39.0 Urinary tract infection, site not specified (principal) | CPT/HCPCS: 87086; 87088; 87186 ==

== ENCOUNTER 2020-09-29 13:57 | Outpatient (RCR) | payer OTHER, SELFPAY ==
[2020-09-29] MEDS: COVID-19 VACC, MRNA(PFIZER)/PF 30 MCG/0.3 ML SYRINGE IM (15:13)
[2020-10-20] MEDS: COVID-19 VACC, MRNA(PFIZER)/PF 30 MCG/0.3 ML SYRINGE IM (12:24)
== END 2020-09-29 23:59 ==
LOC: IMMUN 13:57
PROVIDERS: PCP Family Medicine; Visit Provider Family Medicine
DX: Z23 Encounter for immunization (principal)
CPT/HCPCS: 0001A; 0002A; 91300

== ENCOUNTER 2020-11-28 12:26 | Emergency (ER) | payer OTHER, SELFPAY ==
[2020-11-28 12:27] VITALS: BP 164/101; PULSE 117; RESP 18; TEMP 36.2; O2SAT 98; BMI 33.5
--- NOTE | 2020-11-28 12:49 | EKG12_ITS ---
Test Reason : GEN ILLNESS Blood Pressure : / mmHG Vent. Rate : 102 BPM Atrial Rate : 102 BPM P-R Int : 178 ms QRS Dur : 096 ms QT Int : 384 ms P-R-T Axes : 062 -28 028 degrees QTc Int : 500 ms Sinus tachycardia Low voltage QRS Nonspecific ST and T wave abnormality Abnormal ECG Confirmed by DINO ESPINOSA, TRICIA ([id number]), features editor MARILYN HAMPTON ([id number]) on 12/01/2020 11:29:51 A M Referred By: MAYUR Confirmed By:MARKIE SUN MD
--- NOTE | 2020-11-28 12:54 | CT_ITS ---
STUDY: CT BRAIN WITHOUT CONTRAST REASON FOR EXAM: Female, 55 years old. Intermittent confusion RADIATION DOSAGE (If Supplied By Facility): CTDIvol = ( 38.43 ) mGy, DLP = ( 1425.38 ) mGycm TECHNIQUE: Transaxial CT imaging of the brain was performed without administration of intravenous contrast material. Individualized dose optimization techniques were used for this CT. COMPARISON: 2018 FINDINGS: Normal soft tissue structures. Normal calvarium. Normal size ventricles and extra-axial spaces for the patient''s age. 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 Stable old basal ganglia infarcts. Normal brainstem. Normal cerebellum. There is no intracranial hemorrhage. There are no findings of an acute ischemic infarction. Normal visualized paranasal sinuses. CT/Brain/Head without Contrast IMPRESSION: Chronic involutional changes of the brain. No acute hemorrhage or significant interval change Electronically Signed: Rajat Fraire MD at 14:36 EDT , Service support ,
--- NOTE | 2020-11-28 13:07 | EDS_ITS ---
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 The patient is awake and alert she has no complaints of confusion or headache her chief complaint is the right leg and knee pain, she has had no recent history of infection or MRSA, when she fell she indicates she stumbled striking her knee directly, she did not hit her head she has no back pain head neck chest or abdominal pain [facility] Medical History (Updated 11/28/20 @ 15:[address] Gurjit Tanner MD) Anxiety Depression Hyperlipemia Seizures Home Medications buprenorphine HCl 36 mg SUBLINGUAL DAILY 02/05/14 [History Last Taken 06/23/19] duloxetine 60 mg PO DAILY@0800 02/05/14 [History Last Taken 06/23/19] il-pqa-QV-Yo-Iw-cjlcivn-lutein [Centravites] 1 ea PO DAILY 02/05/14 [History Last Taken 06/23/19] pregabalin [Lyrica] 150 mg PO TID PRN 02/05/14 [History Last Taken 06/23/19] acetaminophen 1,000 mg PO DAILY PRN PRN 05/20/18 [History Last Taken 06/23/19] ascorbic acid (vitamin C) [Vitamin C] 1,000 mg PO DAILY 05/20/18 [History Last Taken 06/23/19] aspirin 81 mg PO DAILY 05/20/18 [History Last Taken 06/23/19] quetiapine 300 mg PO QHS 05/20/18 [History Last Taken 06/22/19] baclofen 10 mg PO Q6H PRN PRN 09/07/18 [History Last Taken 06/21/19] duloxetine 30 mg PO QHS 06/23/19 [History Last Taken 06/22/19] carbamazepine 400 mg PO DAILY #30 tab.er.12h 06/24/19 [Rx Last Taken Unknown] sulfamethoxazole-trimethoprim 1 tab PO BID #10 tab 07/14/19 [Rx Last Taken Unknown] Allergy/AdvReac Type Severity Reaction Status Date / Time metoclopramide HCl Allergy shaking Verified 11/28/20 12:30 [From Reglan] prochlorperazine edisylate Allergy Hives Verified 11/28/20 12:30 [From Compazine] prochlorperazine maleate Allergy Hives Verified 11/28/20 12:30 [From Compazine] promethazine HCl Allergy Hives Verified 11/28/20 12:30 [From Phenergan] Social History (Updated 01/27/19 @ 14:28 by Nic MCKEON, PA) Smoking Status: Never smoker ROS ROS ED Constitutional Constitutional ED: Reports subjective, sweats and other; Denies chills, fever(s) or weight loss Eyes Eyes: Denies blurry vision or change in vision ENT ENT ED: Denies ear pain Cardiovascular Cardiovascular: Denies chest pain or palpitations Respiratory/Chest Respiratory/Chest: Denies dyspnea Gastrointestinal Gastrointestinal: Denies abdominal pain, nausea or vomiting Genitourinary Genitourinary ED: Denies dysuria or hematuria Musculoskeletal Musculoskeletal: Reports arthralgias and myalgias Integumentary Reports rash; Denies abscess Neurologic Neurologic: Denies weakness Psychiatric Psychiatric: Denies anxiety or depression Endocrine Endocrinology: Denies polydipsia or polyuria Allergic/Immunologic Allergic/Immunologic ED: Denies urticaria EXAM Physical Exam Narrative Exam Narrative: The patient's chief issue is the right lower leg indicates she feels if she having pain really from the hip down to the knee all this occurred after the fall there is contusion to the patellar area she is having difficulty with extension and movement of the leg she has some edema Jb some of which is chronic to the calf area she has some mild discomfort to the thigh as well neurovascular function to the foot and leg are unremarkable there is no signs of active infection her backs unremarkable and the rest of the exam is unremarkable as below Const Vital Signs: 11/28/20 12:27 11/28/20 12:56 Temperature 97.1 F L Temperature Source Temporal Pulse Rate 117 H Respiratory Rate 18 Respiratory Effort Normal Non-Labored Respiratory Pattern Normal Blood Pressure 164/101 H Blood Pressure Mean 122 Pulse Ox 98 Oxygen Delivery Method Room Air Positive well developed General Appearance ED: well developed HEENT Reports normocephalic Negative for trauma Eyes EOMs intact bilaterally Neck supple Chest Wall inspection of chest normal Resp normal respiratory effort Cardio regular rate GI non-tender and non-distended Back/Spine Back/Spine Narrative: unremarkable Extremity normal to inspection Neuro oriented x3 and CN's II-XII intact bilaterally Sensorium / Orientation: alert Psych mental status grossly normal Skin no rashes or lesions noted MDM MDM MDM Narrative Medical decision making narrative: The differentials rather extensive this all began with the fall she indicates she stubbed her leg causing her to fall forwar d striking her patellar knee area directly given all the above 80 screening evaluation will be obtained The patient's EKG showed a sinus tachycardia of 100 nothing acute no injury pattern, the patient's ED screening labs are also generally unremarkable see those reports, the patient's multiview knee x-ray unremarkable to my review DJD, 2 view femur x-ray unremarkable to my review no fracture dislocation, radiology generally concurs, head CT per radiology is negative for all nothing acute and duplex scan of the lower extremity on the right per staff is negative for DVT patient is comfortable with this as is her family she remains awake and alert she understands that given that she has an amputation of the left leg she should follow with her outpatient providers she can use [id number] meds for pain ice elevation and return for change in symptoms she further understands she has severe DJD on x-ray of that knee and she may require orthopedic management if she is not improving she will take that from outpatient providers Home stable Final impression fall with right knee contusion 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 Lab Data Labs: Laboratory Results - last 24 hr 11/28/20 11/28/20 11/28/20 13:10 13:10 13:10 WBC 11.3 H RBC 4.33 Hgb 12.4 Hct 38.0 MCV 87.8 MCH 28.6 MCHC 32.6 RDW Std Deviation 42.0 RDW Coeff of Adilia 13.0 Plt Count 243 MPV 11.1 Immature Gran % (Auto) 0.400 Neut % (Auto) 71.0 H Lymph % (Auto) 17.8 L [place] % (Auto) 8.0 Eos % (Auto) 2.0 Baso % (Auto) 0.8 Absolute Neuts (auto) 8.0 H Absolute Lymphs (auto) 2.02 Nucleated RBC % 0 Sodium 138 Potassium 3.6 Chloride 103 Carbon Dioxide 30.0 Anion Gap 5 BUN 12 Creatinine 0.91 Estim Creat Clear Calc 57.10 Est GFR (MDRD) Af Amer 83 Est GFR (MDRD) Non-Af 68 BUN/Creatinine Ratio 13.2 Glucose 191 H Calcium 8.4 L Total Bilirubin 0.60 AST 67 H ALT 57 H Alkaline Phosphatase 100 Total Protein 7.5 Albumin 4.0 Globulin 3.5 Albumin/Globulin Ratio 1.1 Carbamazepine < 0.5 L Radiography Diagnostic Testing: Radiology Impression Brain CT 11/28/20 12:54 IMPRESSION: Chronic involutional changes of the brain. No acute hemorrhage or significant interval change Electronically Signed: Rajat Fraire MD at 14:36 EDT , Service support , Knee X-Ray 11/28/20 13:07 IMPRESSION: Degenerative arthrosis. Electronically Signed: Rajat Fraire MD at 14:56 EDT , Service support , Femur X-Ray 11/28/20 13:08 IMPRESSION: Normal x-ray examination of the femur. Electronically Signed: Rajat Fraire MD at 14:56 EDT , Service support , Discharge Plan Triage Chief Complaint: General Illness Other Complaint: Confusion ED Provider: Gurjit Tanner Dx/Rx/DC Orders Clinical Impression: Contusion of knee, right Instructions: ED Confusion, ED Soft Tissue Contusion, ED Contusion, Lower Extremity Prescriptions: No Action pregabalin [Lyrica] 150 MG capsule 150 mg PO TID PRN (Reason: Pain) RF: 0 buprenorphine HCl 8 MG Tab.Subl 36 mg sublingual DAILY RF: 0 duloxetine 60 MG capsule 60 mg PO DAILY@0800 RF: 0 fj-ivl-TZ-Ms-Yb-evqsnjs-lutein [Centravites] 1 EACH tablet 1 ea PO DAILY RF: 0 aspirin 81 MG tablet 81 mg PO DAILY RF: 0 acetaminophen 500 MG tablet 1,000 mg PO DAILY PRN PRN (Reason: Fever) RF: 0 quetiapine 300 MG Tab.Er.24h 300 mg PO QHS RF: 0 ascorbic acid (vitamin C) [Vitamin C] 500 MG tablet 1,000 mg PO DAILY RF: 0 baclofen 10 MG tablet 10 mg PO Q6H PRN PRN (Reason: Pain) RF: 0 duloxetine 30 MG capsule,delayed release(DR/EC) 30 mg PO QHS RF: 0 carbamazepine 400 MG tablet extended release 12 hr 400 mg PO DAILY Qty: 30 RF: 0 sulfamethoxazole-trimethoprim 1 TABLET tablet 1 tab PO BID Qty: 10 RF: 0 Primary Care Provider: Harshad Karimi Referrals: Harshad Karimi MD [Primary Care Provider] -
--- NOTE | 2020-11-28 13:07 | RAD_ITS ---
STUDY: X-RAY - RIGHT KNEE REASON FOR EXAM: Female, 55 years old. Pain after trauma TECHNIQUE: 4 view(s) of the knee. COMPARISON: None. FINDINGS: Normal visualized distal femur. Normal visualized proximal tibia and fibula. Normal proximal tibiofibular articulation. There is moderate degenerative arthrosis of the medial femorotibial compartment with moderate joint space narrowing. Normal lateral femorotibial compartment. There is moderate degenerative arthrosis of the patellofemoral articulation. The soft tissue structures are unremarkable. RAD/Knee 4 or More Views IMPRESSION: Degenerative arthrosis. Electronically Signed: Rajat Fraire MD at 14:56 EDT , Service support ,
--- NOTE | 2020-11-28 13:08 | VDLE_ITS ---
Reason For Study: Trauma and swelling RIGHT GSV is normal. CFV is compressible, spontaneous, phasic, competent and demonstrates normal augmentation. FV is compressible, spontaneous, phasic, competent and demonstrates normal augmentation. FV distal visualized with color only, pt unable to tolerate compression. POP V is compressible, spontaneous, phasic, competent and demonstrates normal augmentation. T/P Trunk is compressible. PTV is compressible. RT PerV is compressible. Procedure This is a venous duplex using B-mode, color flow and spectral Doppler. Exam performed portable in ED. A preliminary report was called and/or faxed to [facility]. VL/Venous Duplex US, Unilateral Interpretation Summary There is no evidence of right lower extremity deep vein thrombosis. Right great saphenous vein appears patent and compressible segmentally. Ordering Physician: Gurjit Tanner Referring Physician: Issac Karimi MD Performed By: Candi Arenas RVT
--- NOTE | 2020-11-28 13:08 | RAD_ITS ---
STUDY: X-RAY - RIGHT FEMUR REASON FOR STUDY: Female, 55 years old. Pain after trauma TECHNIQUE: 4 view(s) of the femur. COMPARISON: None. FINDINGS: Normal visualized femur. Normal visualized soft tissue structure. RAD/Femur Min 2 Views IMPRESSION: Normal x-ray examination of the femur. Electronically Signed: Rajat Fraire MD at 14:56 EDT , Service support ,
[2020-11-28 13:21] LABS: Absolute Lymphocyte Count 2.02 X10^3/uL (0.83-4.51); Basophil# 0.09 X10^3/uL; Basophil% 0.8 % (0-1); Eosinophil# 0.23 X10^3/uL; Hemoglobin 12.4 g/dL (12.0-15.0); Lymphocyte # 2.02 X10^3/ul (0.83-4.51); Lymphocyte % 17.8 % (19-41); Mean Corp Hgb Conc 32.6 g/dL (32-36); Mean Corpuscular Hgb 28.6 pg (27.0-32.0); Mean Corpuscular Volume 87.8 fL (81-99); Mean Platelet Vol. 11.1 fl (6.2-12.0); Monocyte# 0.91 X10^3/uL; NRBC Flagged by Analyzer 0 % (0-5); Neutrophil # 8.04 X10^3/uL (2.7-7.7); Platelet Count 243 K/mm3 (150-450); Red Blood Count 4.33 M/mm3 (4.2-5.4); White Blood Count 11.3 K/mm3 (4.4-11.0)
[2020-11-28 13:43] LABS: ALB/GLOB Ratio 1.1 RATIO (0.9-2.4); AST(SGOT) 67 U/L (15-37); Alanine Aminotransfer ALT/SGPT 57 U/L (13-56); Alkaline Phosphatase 100 U/L (45-117); Anion Gap 5 (5-15); BUN 12 mg/dL (7-18); BUN/Creat Ratio 13.2 RATIO (10-20); Calcium,Total 8.4 mg/dL (8.5-10.1); Chloride 103 mmol/L (98-107); Creatinine, Serum 0.91 mg/dL (0.55-1.02); EST Glomerular Filtration Rate 68 mL/min (>60); Est Glom Filt Rate - Afr Amer 83 mL/min (>60); Globulin 3.5 g/dL (2.2-4.2); Glucose 191 mg/dL (74-106); Potassium 3.6 mmol/L (3.5-5.1); Protein, Total 7.5 g/dL (6.4-8.2); Sodium Level 138 mmol/L (136-145)
[2020-11-28 14:07] LABS: Carbamazepine (Tegretol) < 0.5 ug/mL (4.0-12.0)
[2020-11-28 15:32] LABS: Bacteria 0 SEEN /hpf (None Seen); Mucous, Urine 0 SEEN /hpf (<or=2+); Red Blood Cells-Urine 0 SEEN /hpf (0-5)
[2020-11-28 15:38] LABS: Color, Urine Yellow (Yellow); Glucose, Dipstick Normal (Normal); Ketone-Dipstick Negative (Negative); Leukocyte Esterase-Dipstick 500 /ul (Negative); Nitrite-Dipstick Negative (Negative); Occult Blood-Urine 10 /ul (Negative); Protein-Dipstick Negative (Negative); Urine Bilirubin Dipstick Negative (Negative); Urine Clarity Sl. Cloudy (Clear); Urine Urobilinogen Normal (Normal); Urine pH 6.5 (5.0 - 8.0)
[2020-11-28 16:10] LABS: Renal Epithelial Cells 0-5 SEEN /hpf (0-5); Squamous Epithelial Cells - UA 10-25 SEEN /hpf (5-10)
[2020-11-28 16:11] LABS: White Blood Cells 10-25 SEEN /hpf (0-5)
[2020-11-28 16:16] VITALS: BP 102/69; PULSE 88; RESP 16; O2SAT 95
== END 2020-11-28 16:26 | disposition home or self-care (01) ==
LOC: ED 13:33
PROVIDERS: Emergency Provider Emergency Medicine; PCP Family Medicine
DX: S80.01XA Contusion of right knee, initial encounter (principal); M79.604 Pain in right leg; Z99.3 Dependence on wheelchair; Z89.622 Acquired absence of left hip joint; E78.5 Hyperlipidemia, unspecified; F41.9 Anxiety disorder, unspecified; F32.9 Major depressive disorder, single episode, unspecified; Z79.899 Other long term (current) drug therapy; W18.30XA Fall on same level, unspecified, initial encounter; Y93.89 Activity, other specified; Y92.89 Other specified places as the place of occurrence of the external cause; Y99.8 Other external cause status
CPT/HCPCS: 70450; 73552; 73564; 80053; 80156; 81001; 85025; 93005; 93971; 96360; 99283; J7030; A4216

== ENCOUNTER 2020-11-29 04:41 | Emergency (ER) | payer OTHER, SELFPAY ==
[2020-11-28 12:27] VITALS: BMI 33.5
[2020-11-29 04:43] VITALS: BP 136/88; PULSE 95; RESP 18; TEMP 37; O2SAT 94; BMI 40.5
--- NOTE | 2020-11-29 04:49 | EX.ED.DYSGE1 ---
HPI History of Present Illness Chief Complaint: Edema Detail of Chief Complaint: Throbbing discomfort and swelling right knee and leg Informant: patient Onset/Context/Timing Onset: Days Context: Sudden Onset Timing: Continuous Quality: Throbbing discomfort Location: Right lower extremity Current Severity: Mild Maximum Severity: Severe Worsened by: Touch, movement Relieved by: Nothing Associated Symptoms Associated Symptoms: Not able to maneuver as normal Narrative Narrative: Patient presents because a throbbing right lower leg discomfort and knee pain status post fall. She was seen yesterday. Records were reviewed. She had x-rays which were negative. Venous duplex which was negative. She denies fever or chills. She initially declined pain medicine. She is an kowcx-sif-rxff amputation on the left due to MRSA infection. She denies fever or chills. She denies any symptoms. She was asked what she would like for us to achieve and her response was to decrease the swelling and throbbing. Prior similar symptoms: Yes Recent Illness/Hospitalization: Yes [facility] Medical History Anxiety Depression Hyperlipemia Seizures Home Medications buprenorphine HCl 36 mg SUBLINGUAL DAILY 02/05/14 [History Last Taken 06/23/19] duloxetine 60 mg PO DAILY@0800 02/05/14 [History Last Taken 06/23/19] qw-ewr-SP-Lz-Vi-rujghgy-lutein [Centravites] 1 ea PO DAILY 02/05/14 [History Last Taken 06/23/19] pregabalin [Lyrica] 150 mg PO TID PRN 02/05/14 [History Last Taken 06/23/19] acetaminophen 1,000 mg PO DAILY PRN PRN 05/20/18 [History Last Taken 06/23/19] ascorbic acid (vitamin C) [Vitamin C] 1,000 mg PO DAILY 05/20/18 [History Last Taken 06/23/19] aspirin 81 mg PO DAILY 05/20/18 [History Last Taken 06/23/19] quetiapine 300 mg PO QHS 05/20/18 [History Last Taken 06/22/19] baclofen 10 mg PO Q6H PRN PRN 09/07/18 [History Last Taken 06/21/19] duloxetine 30 mg PO QHS 06/23/19 [History Last Taken 06/22/19] carbamazepine 400 mg PO DAILY #30 tab.er.12h 06/24/19 [Rx Last Taken Unknown] sulfamethoxazole-trimethoprim 1 tab PO BID #10 tab 07/14/19 [Rx Last Taken Unknown] hydrocodone-acetaminophen 1 tab PO Q6H PRN PRN 3 Days #10 tablet 11/29/20 [Rx Last Taken Unknown] Allergy/AdvReac Type Severity Reaction Status Date / Time metoclopramide HCl Allergy shaking Verified 11/29/20 04:43 [From Reglan] prochlorperazine edisylate Allergy Hives Verified 11/29/20 04:43 [From Compazine] prochlorperazine maleate Allergy Hives Verified 11/29/20 04:43 [From Compazine] promethazine HCl Allergy Hives Verified 11/29/20 04:43 [From Phenergan] Social History (Updated 11/29/20 @ 04:[address] Edu Carvajal MD) household members: none Smoking Status: Never smoker alcohol intake: never substance use type: does not use ROS ROS ED Constitutional Constitutional ED: Denies chills, fever(s), subjective or sweats Eyes Eyes: Denies blurry vision or change in vision Cardiovascular Cardiovascular: Denies chest pain or palpitations Respiratory/Chest Respiratory/Chest: Denies cough, dyspnea or dyspnea on exertion Gastrointestinal Gastrointestinal: Denies abdominal pain, nausea or vomiting Musculoskeletal Musculoskeletal: Reports other Details: Right lower extremity pain, knee and leg with swelling and throbbing discomfort ; Denies arthralgias, back pain, myalgias or neck pain Integumentary Reports Abrasions; Denies rash Neurologic Neurologic: Reports weakness; Denies paresthesias Allergic/Immunologic Allergic/Immunologic ED: Denies urticaria EXAM Physical Exam Const Vital Signs: 11/29/20 04:43 11/29/20 05:53 Temperature 98.6 F 98.2 F Temperature Source Oral Temporal Pulse Rate 95 67 Respiratory Rate 18 16 Blood Pressure 136/88 H 147/85 H Blood Pressure Mean 104 105 Pulse Ox 94 93 Oxygen Delivery Method Room Air Room Air Positive well nourished, well developed and obese General Appearance ED: well developed Nutritional Appearance: obese HEENT HEENT Narrative: There is no asymmetry. Ears and nose appear normal. Eyes PERRL and EOMs intact bilaterally General Eye ED: Negative for pale conjunctiva Neck no lymphadenopathy, supple and no JVD Resp normal respiratory effort Cardio regular rate and regular rhythm Extremity Extremity Narrative: There is swelling of the right knee with contusion noted over the patella. There is a well-healed scar due to gymnastic injury when she was younger. She does have mild joint line tenderness. Varus valgus stress testing cause discomfort but there is no laxity. Basilio's test was negative. Unable to perform modified Krissy because of swelling. PT pulses palpable. There are areas of abrasion/excoriation anterior leg. There is slight erythema without warmth, induration. There is no drainage. There is no lymphangitis. General Extremety ED: Yes edema and tenderness General Extremity: edema Neuro oriented x3, CN's II-XII intact bilaterally and no sensory deficits noted Sensorium / Orientation: alert Motor Exam: strength 5/5 throughout Psych Psych Narrative: Affect is flat. Skin Trauma: abrasion MDM MDM MDM Narrative Medical decision making narrative: Since patient was seen at 1300 on Friday, November 28 and had significant work-up and her only complaint presently is a throbbing discomfort and swelling we will treat her pain with opiate analgesia. She was informed that the swelling is due to the injury and will take time to decrease. There is no specific treatment for the swelling. Treatment and Re-Evaluation Comments:: Patient was reassessed at 0645. She states she feels much better. Plan is to discharge to home with pain medicine for her traumatic right lower extremity pain. 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 Instructions: ED Soft Tissue Contusion, ED Hyperventilation Syndrome Prescriptions: New hydrocodone-acetaminophen [hydrocodone-acetaminophen] 1 TABLET tablet 1 tab PO Q6H PRN PRN (Reason: Pain) 3 Days Qty: 10 RF: 0 No Action pregabalin [Lyrica] 150 MG capsule 150 mg PO TID PRN (Reason: Pain) RF: 0 buprenorphine HCl 8 MG tablet, sublingual 36 mg sublingual DAILY RF: 0 duloxetine 60 MG capsule 60 mg PO DAILY@0800 RF: 0 lu-pfu-GS-Vr-Uy-rvulnfx-lutein [Centravites] 1 EACH tablet 1 ea PO DAILY RF: 0 aspirin 81 MG tablet 81 mg PO DAILY RF: 0 acetaminophen 500 MG tablet 1,000 mg PO DAILY PRN PRN (Reason: Fever) RF: 0 quetiapine 300 MG tablet extended release 24 hr 300 mg PO QHS RF: 0 ascorbic acid (vitamin C) [Vitamin C] 500 MG tablet 1,000 mg PO DAILY RF: 0 baclofen 10 MG tablet 10 mg PO Q6H PRN PRN (Reason: Pain) RF: 0 duloxetine 30 MG capsule,delayed release(DR/EC) 30 mg PO QHS RF: 0 carbamazepine 400 MG tablet extended release 12 hr 400 mg PO DAILY Qty: 30 RF: 0 sulfamethoxazole-trimethoprim 1 TABLET tablet 1 tab PO BID Qty: 10 RF: 0 Primary Care Provider: Harshad Karimi Referrals: Harshad Karimi MD [Primary Care Provider] - 1 Week if not improving Disposition Disposition: Home, self care
[2020-11-29] MEDS: oxyCODONE 5 MG Tablet PO (04:54)
[2020-11-29 05:53] VITALS: BP 147/85; PULSE 67; RESP 16; TEMP 36.8; O2SAT 93
[2020-11-29 06:53] VITALS: BP 156/99; PULSE 88; RESP 16; O2SAT 95
--- NOTE | 2020-11-29 06:54 | ED.RN ---
Daughter and patient are calling around for patient to get a ride home.
== END 2020-11-29 07:06 | disposition home or self-care (01) ==
PROVIDERS: Emergency Provider Emergency Medicine; PCP Family Medicine
DX: S80.11XA Contusion of right lower leg, initial encounter (principal); I89.0 Lymphedema, not elsewhere classified; F41.9 Anxiety disorder, unspecified; F32.9 Major depressive disorder, single episode, unspecified; E78.5 Hyperlipidemia, unspecified; E66.9 Obesity, unspecified; Z79.899 Other long term (current) drug therapy; W18.30XA Fall on same level, unspecified, initial encounter; Y93.89 Activity, other specified; Y92.89 Other specified places as the place of occurrence of the external cause; Y99.8 Other external cause status
CPT/HCPCS: 99285

== ENCOUNTER → 2020-12-01 10:31 | Outpatient (CLI) | payer OTHER, SELFPAY ==
[2020-11-29 04:43] VITALS: BMI 40.5
--- NOTE | 2020-12-01 11:00 | RAD_ITS ---
STUDY: X-RAY - RIGHT FOOT CLINICAL: Female, 55 years old. Pain and stiffness TECHNIQUE: 3 view(s) of the foot. COMPARISON: None. FINDINGS: Normal talus and tarsal bones. Calcaneal spurs Normal visualized subtalar, talonavicular, calcaneocuboid, tarsal and tarsometatarsal articulations. Normal metatarsi. Normal metatarsophalangeal joint of the great toe. Normal tibial and fibular sesamoid bones. Normal interphalangeal joint of the great toe. Normal phalanges of the great toe. Normal second through fifth metatarsophalangeal joints. Normal interphalangeal joints and phalanges of the lesser toes. Nonspecific dorsal soft tissue swelling RAD/Foot min 3 Views IMPRESSION: Calcaneal spurs, no demonstrated fracture Nonspecific dorsal soft tissue swelling Electronically Signed: Rajat Fraire MD at 11:34 EDT , Service support ,
[2020-12-01 11:07] LABS: Absolute Lymphocyte Count 2.82 X10^3/uL (0.83-4.51); Absolute Neutrophil Count 4.1 X10^3/uL (2.0-7.7); Basophil% 1.2 % (0-1); Eosinophil# 0.39 X10^3/uL; Eosinophils% 4.6 % (0-5); Hematocrit 39.8 % (37-47); Hemoglobin 12.9 g/dL (12.0-15.0); Lymphocyte # 2.82 X10^3/ul (0.83-4.51); Lymphocyte % 33.3 % (19-41); Mean Corp Hgb Conc 32.4 g/dL (32-36); Mean Corpuscular Hgb 29.1 pg (27.0-32.0); Mean Corpuscular Volume 89.8 fL (81-99); Mean Platelet Vol. 10.8 fl (6.2-12.0); Monocyte# 1.05 X10^3/uL; Monocyte% 12.4 % (0-10); NRBC Flagged by Analyzer 0 % (0-5); Neutrophil # 4.08 X10^3/uL (2.7-7.7); Neutrophil % 48.1 % (47-70); Platelet Count 250 K/mm3 (150-450); RBC Distribution Width CV 13.8 % (11.6-14.6); RBC Distribution Width SD 44.7 fl (35.1-43.9); Red Blood Count 4.43 M/mm3 (4.2-5.4); White Blood Count 8.5 K/mm3 (4.4-11.0)
[2020-12-01 12:12] LABS: Amphetamine Urine VISTA NEGATIVE (<1000 ng/mL); Barbiturate Urine VISTA NEGATIVE (< 200 ng/mL); Benzodiazepine Urine VISTA NEGATIVE (< 200 ng/mL); Cocaine Urine VISTA NEGATIVE (< 300 ng/mL); Ecstacy Urine VISTA NEGATIVE (< 500 ng/mL); Methadone Urine VISTA NEGATIVE (< 300 ng/mL); PCP Urine VISTA NEGATIVE (< 25 ng/mL); THC Urine VISTA NEGATIVE (< 50 ng/mL); Vista UDS pH Range 5
== END ==
PROVIDERS: PCP Family Medicine; Referring Provider Family Medicine; Visit Provider Family Medicine
DX: Z86.59 Personal history of other mental and behavioral disorders (principal)
CPT/HCPCS: 36415; 73630; 80307; 85025

== ENCOUNTER 2021-01-26 19:43 | Emergency (ER) | payer OTHER, SELFPAY ==
[2020-12-12 16:24] VITALS: BMI 40.5
[2021-01-26 19:44] VITALS: BP 138/95; PULSE 106; RESP 15; TEMP 35.8; O2SAT 97; BMI 32.5
--- NOTE | 2021-01-26 20:21 | EDS_ITS ---
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 Daughter states she came to their house to see the grandchildren. Her mother was acting irregular. States she is concerned she is using or abusing her medications. States she was giggling. Acting inappropriately. She is concerned she is either overusing or black within or abusing substances again. She is not been ill recently. Denies any nausea, vomiting, diarrhea, fever no headaches. Prior similar symptoms: Yes Recent Illness/Hospitalization: No PFSH [facility] Medical History Anxiety Depression Hyperlipemia Seizures Unilateral above knee amputation Home Medications buprenorphine HCl 36 mg SUBLINGUAL DAILY 02/05/14 [History Last Taken 06/23/19] duloxetine 60 mg PO DAILY@0800 02/05/14 [History Last Taken 06/23/19] [id number]-tcq-LI-Nn-Pl-gwkinff-lutein [Centravites] 1 ea PO DAILY 02/05/14 [History Last Taken 06/23/19] pregabalin [Lyrica] 150 mg PO TID PRN 02/05/14 [History Last Taken 06/23/19] acetaminophen 1,000 mg PO DAILY PRN PRN 05/20/18 [History Last Taken 06/23/19] ascorbic acid (vitamin C) [Vitamin C] 1,000 mg PO DAILY 05/20/18 [History Last Taken 06/23/19] aspirin 81 mg PO DAILY 05/20/18 [History Last Taken 06/23/19] quetiapine 300 mg PO QHS 05/20/18 [History Last Taken 06/22/19] baclofen 10 mg PO Q6H PRN PRN 09/07/18 [History Last Taken 06/21/19] duloxetine 30 mg PO QHS 06/23/19 [History Last Taken 06/22/19] carbamazepine 400 mg PO DAILY #30 tab.er.12h 06/24/19 [Rx Last Taken Unknown] sulfamethoxazole-trimethoprim 1 tab PO BID #10 tab 07/14/19 [Rx Last Taken Unknown] hydrocodone-acetaminophen 1 tab PO Q6H PRN PRN 3 Days #10 tablet 11/29/20 [Rx Last Taken Unknown] Allergy/AdvReac Type Severity Reaction Status Date / Time metoclopramide HCl Allergy shaking Verified 01/26/21 19:47 [From Reglan] prochlorperazine edisylate Allergy Hives Verified 01/26/21 19:47 [From Compazine] prochlorperazine maleate Allergy Hives Verified 01/26/21 19:47 [From Compazine] promethazine HCl Allergy Hives Verified 01/26/21 19:47 [From Phenergan] Social History household members: none Smoking Status: Never smoker alcohol intake: never substance use type: does not use ROS ROS ED ROS Narrative Denies recent illness. Review of Systems ROS Unobtainable: Denies due to encephalopathy Constitutional Constitutional ED: Denies chills or fever(s) Eyes Eyes: Denies change in vision ENT ENT ED: Denies ear pain or sore throat Cardiovascular Cardiovascular: Denies chest pain Respiratory/Chest Respiratory/Chest: Denies cough Gastrointestinal Gastrointestinal: Denies abdominal pain, diarrhea, nausea or vomiting Genitourinary Genitourinary ED: Denies dysuria Musculoskeletal Musculoskeletal: Denies myalgias Integumentary Denies abscess or rash Neurologic Neurologic: Denies headache(s) Psychiatric Psychiatric: Denies depression Endocrine Endocrinology: Denies polyuria Allergic/Immunologic Allergic/Immunologic ED: Denies urticaria EXAM Physical Exam Narrative Exam Narrative: Middle-aged female no acute distress. Vital signs are stable afebrile. No obvious smell of alcohol. No obvious sign of toxidrome. HEENT exam unremarkable. Pupils round 2 mm bilaterally. No signs of trauma to her face or head. Neck nontender no meningismus. Lungs clear to auscultation bilaterally. Heart regular rhythm no murmur. Rate about 100. Abdomen obese but soft nontender normal bowel sounds no peritoneal signs. Back nontender. Moving her extremities. Her left leg is amputated above the knee. Neurologically she is awake alert with no focal motor deficits. Const Vital Signs: 01/26/21 19:44 01/26/21 20:17 Temperature 96.5 F L Temperature Source Temporal Pulse Rate 106 H Respiratory Rate 15 Respiratory Effort Normal Non-Labored Respiratory Pattern Normal Blood Pressure 138/95 H Blood Pressure Mean 109 Pulse Ox 97 Oxygen Delivery Method Room Air Positive well nourished, well developed and obese; Negative for unkempt General Appearance ED: well developed and NAD; Negative for unkempt Nutritional Appearance: obese HEENT Reports moist mucous membranes Negative for trauma or tenderness Eyes PERRL and EOMs intact bilaterally Neck no lymphadenopathy, supple and no JVD General: Negative for tenderness Chest Wall inspection of chest normal and palpation of chest normal Resp normal respiratory effort and clear to auscultation bilaterally Cardio regular rate, regular rhythm, S1 normal heart sound, S2 normal heart sound and no murmurs GI normal to inspection, nondistended, normoactive bowel sounds, non-tender, non- distended and no masses Auscultation: normoactive bowel sounds Palpation: soft; Negative for tender Back/Spine no CVA tenderness General Back: Negative for CVA tenderness Extremity normal to inspection General Extremety ED: Negative for edema or tenderness General Extremity: Negative for edema Neuro oriented x3 and CN's II-XII intact bilaterally Sensorium / Orientation: alert; Negative for orientation impaired, lethargic or stuporous Motor Exam: strength 5/5 throughout Psych mental status grossly normal Appearance: Negative for unkempt Skin no rashes or lesions noted and no wounds Skin Narrative: Rash on her right lower leg consistent with poison arcadio. MDM MDM MDM Narrative Medical decision making narrative: Daughter is concerned her mom is abusing drugs again or her prescription medications. Once tox screens obtained. Will get screening labs along with a tox screen and alcohol level. Exam is benign otherwise. Repeat exam patient is doing well at 10:13 PM. He will be discharged to home. She will be instructed to follow-up with her primary care physician. She would like to stop her baclofen. Lab Data Attestation: I reviewed the patient's lab results. Lab results narrative: CBC unremarkable. White count of 10. Hemoglobin 12.7. Electrolytes unremarkable gap of 4. Normal creatinine. Liver enzymes unremarkable. Alcohol negative. Tox screen negative. Labs: Laboratory Results - last 24 hr 01/26/21 01/26/21 01/26/21 20:25 20:25 20:25 WBC 10.6 RBC 4.45 Hgb 12.7 Hct 39.6 MCV 89.0 MCH 28.5 MCHC 32.1 RDW Std Deviation 43.2 RDW Coeff of Adilia 13.2 Plt Count 197 MPV 10.3 Immature Gran % (Auto) 0.700 Neut % (Auto) 64.3 Lymph % (Auto) 22.7 [place] % (Auto) 8.3 Eos % (Auto) 3.3 Baso % (Auto) 0.7 Absolute Neuts (auto) 6.8 Absolute Lymphs (auto) 2.40 Nucleated RBC % 0 Sodium 140 Potassium 3.8 Chloride 106 Carbon Dioxide 30.0 Anion Gap 4 L BUN 7 Creatinine 0.70 Estim Creat Clear Calc 74.23 Est GFR (MDRD) Af Amer 111 Est GFR (MDRD) Non-Af 92 BUN/Creatinine Ratio 10.0 Glucose 139 H Calcium 8.6 Total Bilirubin 0.30 AST 21 ALT 34 Alkaline Phosphatase 123 H Total Protein 7.2 Albumin 3.5 Globulin 3.7 Albumin/Globulin Ratio 0.9 Urine Opiates Screen Urine Methadone Screen Ur Barbiturates Screen Ur Phencyclidine Scrn Ur Amphetamines Screen U Methamphetamin-MDMA U Benzodiazepines Scrn Urine Cocaine Screen U Cannabinoids Screen Ur Drug Screen Comment Ethyl Alcohol 6.0 01/26/21 21:15 WBC RBC Hgb Hct MCV MCH MCHC RDW Std Deviation RDW Coeff of Adilia Plt Count MPV Immature Gran % (Auto) Neut % (Auto) Lymph % (Auto) [place] % (Auto) Eos % (Auto) Baso % (Auto) Absolute Neuts (auto) Absolute Lymphs (auto) Nucleated RBC % Sodium Potassium Chloride Carbon Dioxide Anion Gap BUN Creatinine Estim Creat Clear Calc Est GFR (MDRD) Af Amer Est GFR (MDRD) Non-Af BUN/Creatinine Ratio Glucose Calcium Total Bilirubin AST ALT Alkaline Phosphatase Total Protein Albumin Globulin Albumin/Globulin Ratio Urine Opiates Screen NEGATIVE Urine Methadone Screen NEGATIVE Ur Barbiturates Screen NEGATIVE Ur Phencyclidine Scrn NEGATIVE Ur Amphetamines Screen NEGATIVE U Methamphetamin-MDMA NEGATIVE U Benzodiazepines Scrn NEGATIVE Urine Cocaine Screen NEGATIVE U Cannabinoids Screen NEGATIVE Ur Drug Screen Comment Ethyl Alcohol Discharge Plan Triage Chief Complaint: Other, Pain/Inj ED Provider: Sukhjinder Palencia Dx/Rx/DC Orders Clinical Impression: Drug abuse Instructions: ED Drug Abuse Prescriptions: No Action pregabalin [Lyrica] 150 MG capsule 150 mg PO TID PRN (Reason: Pain) RF: 0 buprenorphine HCl 8 MG tablet, sublingual 36 mg sublingual DAILY RF: 0 duloxetine 60 MG capsule 60 mg PO DAILY@0800 RF: 0 sr-dto-ZR-Zw-Qo-jerqpig-lutein [Centravites] 1 EACH tablet 1 ea PO DAILY RF: 0 aspirin 81 MG tablet 81 mg PO DAILY RF: 0 acetaminophen 500 MG tablet 1,000 mg PO DAILY PRN PRN (Reason: Fever) RF: 0 quetiapine 300 MG tablet extended release 24 hr 300 mg PO QHS RF: 0 ascorbic acid (vitamin C) [Vitamin C] 500 MG tablet 1,000 mg PO DAILY RF: 0 baclofen 10 MG tablet 10 mg PO Q6H PRN PRN (Reason: Pain) RF: 0 duloxetine 30 MG capsule,delayed release(DR/EC) 30 mg PO QHS RF: 0 carbamazepine 400 MG tablet extended release 12 hr 400 mg PO DAILY Qty: 30 RF: 0 sulfamethoxazole-trimethoprim 1 TABLET tablet 1 tab PO BID Qty: 10 RF: 0 hydrocodone-acetaminophen [hydrocodone-acetaminophen] 1 TABLET tablet 1 tab PO Q6H PRN PRN (Reason: Pain) 3 Days Qty: 10 RF: 0 Primary Care Provider: Harshad Karimi Referrals: Harshad Karimi MD [Primary Care Provider] - As soon as possible Activity Restrictions/Additional Instructions: Follow-up your primary care physician. Your labs tonight including tox screen and alcohol level were all negative. You can start coming off the baclofen but it needs to be weaned off slowly to give you withdrawal symptoms. You cannot just stop it cold turkey because it will make you feel miserable. Disposition Disposition: Home, Self Care
[2021-01-26 20:34] LABS: Absolute Neutrophil Count 6.8 X10^3/uL (2.0-7.7); Basophil# 0.07 X10^3/uL; Basophil% 0.7 % (0-1); Eosinophil# 0.35 X10^3/uL; Eosinophils% 3.3 % (0-5); Hematocrit 39.6 % (37-47); Hemoglobin 12.7 g/dL (12.0-15.0); Lymphocyte % 22.7 % (19-41); Mean Corp Hgb Conc 32.1 g/dL (32-36); Mean Corpuscular Hgb 28.5 pg (27.0-32.0); Mean Platelet Vol. 10.3 fl (6.2-12.0); Monocyte# 0.88 X10^3/uL; Monocyte% 8.3 % (0-10); NRBC Flagged by Analyzer 0 % (0-5); Neutrophil # 6.82 X10^3/uL (2.7-7.7); Neutrophil % 64.3 % (47-70); Platelet Count 197 K/mm3 (150-450); RBC Distribution Width CV 13.2 % (11.6-14.6); RBC Distribution Width SD 43.2 fl (35.1-43.9); Red Blood Count 4.45 M/mm3 (4.2-5.4); White Blood Count 10.6 K/mm3 (4.4-11.0)
[2021-01-26 20:54] LABS: ALB/GLOB Ratio 0.9 RATIO (0.9-2.4); AST(SGOT) 21 U/L (15-37); Alanine Aminotransfer ALT/SGPT 34 U/L (13-56); Albumin, Serum 3.5 g/dL (3.2-5.0); Alkaline Phosphatase 123 U/L (45-117); Anion Gap 4 (5-15); BUN 7 mg/dL (7-18); Calcium,Total 8.6 mg/dL (8.5-10.1); Chloride 106 mmol/L (98-107); EST Glomerular Filtration Rate 92 mL/min (>60); Est Glom Filt Rate - Afr Amer 111 mL/min (>60); Estimated Creatinine Clearance 74.23 ml/min; Globulin 3.7 g/dL (2.2-4.2); Glucose 139 mg/dL (74-106); Potassium 3.8 mmol/L (3.5-5.1); Protein, Total 7.2 g/dL (6.4-8.2); Sodium Level 140 mmol/L (136-145)
[2021-01-26 21:44] LABS: Barbiturate Urine VISTA NEGATIVE (< 200 ng/mL); Benzodiazepine Urine VISTA NEGATIVE (< 200 ng/mL); Cocaine Urine VISTA NEGATIVE (< 300 ng/mL); Ecstacy Urine VISTA NEGATIVE (< 500 ng/mL); Methadone Urine VISTA NEGATIVE (< 300 ng/mL); PCP Urine VISTA NEGATIVE (< 25 ng/mL); THC Urine VISTA NEGATIVE (< 50 ng/mL); Vista UDS pH Range 5
[2021-01-26 21:45] LABS: Amphetamine Urine VISTA NEGATIVE (<1000 ng/mL)
--- NOTE | 2021-01-26 21:45 | CM.ED ---
SOCIAL WORK Referral Source: NurseRachael Reason for Consult: Discharge Planning Met with patient and patient's daughterAlison in room. Introduced role and reason for referral. Patient nodding in and out of conversation. Daughter reports patient with history of substance abuse and misusing prescribed medication and Benadryl. Daughter continued to voice frustrations and yell at patient. Daughter asked to step out of room to meet with patient alone. Patient sat up in bed. Patient required extra time to get thoughts together. Patient discussed history of divorce, amputation of left leg, and mental health. Patient reports has been through pain management and was prescribed Baclofen. Patient admits to taking 2 Baclofen before leaving for daughter's house and reports when she takes those medications it wipes me out. Patient stating wishes to quit it (wanting to stop taking Baclofen). Patient denies any suicidal or homicidal ideation. Patient states follows with Dr. Fernandez for counseling. Daughter came back into room and requested to get brother, Darinel on the phone. Darinel requested to speak with this worker in private, this worker stepped out of room to take phone call. Darinel reports patient with history of misusing medication and states things have been escalating within the family. Son reports he and his brother will be talking with patient and states sister can go into attack mode due to being the one in [place]. Support and active listening provided. After lengthy discussion with all parties. Patient and family provided with substance use resources. Anticipate patient to discharge home with follow up. Patient reports has signed a release of information for daughter to discuss care with all 3 of her physicians. Daughter states will be following up. Plan: Home with resources provided MARLIN Gonzalez, COMPUTER CUSTOMER SUPPORT SPECIALIST
== END 2021-01-26 23:14 | disposition home or self-care (01) ==
PROVIDERS: Emergency Provider Emergency Medicine; PCP Family Medicine
DX: F19.10 Other psychoactive substance abuse, uncomplicated (principal); F41.9 Anxiety disorder, unspecified; F32.9 Major depressive disorder, single episode, unspecified; E78.5 Hyperlipidemia, unspecified; E66.9 Obesity, unspecified; Z79.899 Other long term (current) drug therapy
CPT/HCPCS: 80053; 80307; 82077; 85025; 99283; A4216

== ENCOUNTER 2021-04-11 12:58 | Outpatient (RCR) | payer OTHER, SELFPAY ==
--- NOTE | 2021-04-11 14:23 | HP.PTEVAL_ITS ---
Patient's Visit Information PARDEEP MARK is a 55 year old F referred to Physical Therapy by Dr. Harshad Karimi MD with a diagnosis of Unsteady gait. Date of Evaluation: 04/11/21 Physical Therapist: Spencer Romo, PT, ATC - Visit Plan Frequency: 1x/Week Duration: 1 Week Plan: Pt was evaluated for wheelchair. Discharge - Subjective Pt reports she had several surgeryies when she was younger. Pt notes approximately 15 years ago, she had to have another surgery in L LE. 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 Pt notes she battled over 60 surgeries and 4 bone amputations over the next several years. Pt reports after the final sivan aga, they had to take all of the L LE out so she is no longer able to ambulate with the use of a prosthetic. Pt notes she has been in a wheelchair since that time for the past 15 years. Pt notes this current wheelchar is beginning to break down and feels very unsteady. Pt reports she is here today to finally get fit for a wheelchair because this last wheelchair she bought on line five years ago. Pt reports the last wheelchair she was fit for her from [employer] was 10 years ago. Pt reports with the absence of her L LE, she has a sig lean to the L which ultimately results in LBP. No pain in UE's or R LE, but pt notes phantom pain quite often. - Objective Neuro: B LE sensation is WNL to light touch. P patellar reflex and B bicepital reflex= 2/3. ROM: R LE is WFL. MMT: B UE's and R LE 5/5 throughout. Posture: Pt sits with R side concavity with L side convexity. Pt has a sig decrease in L/S lordosis, increase in T/S kyphosis. Pt sits with a posterior pelvic tilt. Transfers: Pt is able to transfer WC to sit on mat table I. Pt is I with bed transfers. - Goals Goal 1:: Evaluate pt for wheelchair justification Goal Time Frame: 1 Week - Rehabilitation Potential Physical Therapy Diagnosis: pt has difficulty with community ambulation secondary to L LE amputation Rehabilitation Potential: Good - Anticipated Interventions Patient/Client Instruction: Educate patient on: Condition, Plan of Care For the Purpose of:: To improve self management Thank you for the opportunity to evaluate your patient. For Medicare and Medicare HMO plans, please review the plan of care and approve it. It will need to be FAXED BACK to us at [phone] for Medicare purposes. For Medicare only, by signing this I certify the plan of care. Please let me know if there are questions or concerns regarding this plan of care. Physician Signature: Date:
--- NOTE | 2021-07-30 10:05 | HP.PT.NRP ---
PARDEEP MARK was seen in my office for initial evaluation on 04/11/21. The following Plan of Care was established for this patient: Initial Frequency: 1x/Week Initial Duration: 1 Week Patient/Client Instruction: Educate patient on: Condition, Plan of Care For the Purpose of:: To improve self management This patient was last seen in our office . Pertinent comments regarding their Physical therapy will appear below: Discharge this chart. Pt was assessed for her wheelchair. At this point I will be discontinuing this patient from physical therapy. I would be happy to see this patient again in the future if found appropriate by the physician. Thank you! Spencer Romo, PT, ATC
== END 2021-04-11 19:00 | disposition home or self-care (01) ==
LOC: PT 12:58
PROVIDERS: PCP Family Medicine; Referring Provider Family Medicine; Visit Provider Family Medicine
DX: R26.81 Unsteadiness on feet (principal); Z99.3 Dependence on wheelchair
CPT/HCPCS: 97161

== ENCOUNTER 2021-05-20 12:18 | Inpatient (IN) | payer OTHER, SELFPAY ==
[2021-05-20] VITALS (19 sets, daily range): BP systolic 142–168; BP diastolic 83–116; PULSE 100–122; RESP 13–24; TEMP 36.4–38.3; O2SAT 94–99; BMI 38.7; BMI 37.8
--- NOTE | 2021-05-20 12:45 | CT_ITS ---
EXAM: CT HEAD WITHOUT INTRAVENOUS CONTRAST CLINICAL INDICATION: Confusion. TECHNIQUE: Multiple axial images were obtained of the head without intravenous contrast. This CT exam was performed using one or more of the following dose reduction techniques: automated exposure control, adjustment of the mA and/or kV according to patient size, and/or use of iterative reconstruction technique. This report was created using [employer] report generation technology. COMPARISON: CT head without contrast 11/28/2020. 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 No intra- or extra-axial hemorrhage. No intracranial mass or mass effect. Posterior fossa structures are unremarkable. Ventricles are appropriate for age. No hydrocephalus. Basal cisterns are patent. BONES/JOINTS: Unremarkable. No discrete lytic or blastic abnormalities. SINUSES: Unremarkable as visualized. Clear. MASTOID AIR CELLS: Unremarkable. Clear. ORBITS: Visualized globes, extraocular muscles, optic nerves and retrobulbar fat appear unremarkable. CT/Brain/Head without Contrast IMPRESSION: 1. No CT evidence of intracranial bleeding, acute ischemic infarct or acute intracranial abnormality. 2. 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 Electronically Signed: Kavon Johansen MD at 13:52 EST , Service support ,
--- NOTE | 2021-05-20 12:45 | RAD_ITS ---
EXAM: XR CHEST, 1 VIEW CLINICAL INDICATION: sob TECHNIQUE: Frontal view of the chest. This report was created using [employer] report generation technology. COMPARISON: 10/23/2017. FINDINGS: LUNGS AND PLEURAL SPACES: Unremarkable. No consolidation or edema. No pneumothorax. No effusion. HEART: Unremarkable. Cardiac silhouette not enlarged. MEDIASTINUM: Central airways and mediastinal contour are unremarkable. BONES/JOINTS: Unremarkable. SOFT TISSUES: Unremarkable. RAD/Chest 1 View (Portable) IMPRESSION: No radiographic evidence of acute cardiopulmonary disease and unchanged since 10/23/2017. Electronically Signed: Kavon Johansen MD at 14:18 EST , Service support ,
--- NOTE | 2021-05-20 12:45 | EKG12_ITS ---
Test Reason : OD Blood Pressure : / mmHG Vent. Rate : 111 BPM Atrial Rate : 111 BPM P-R Int : 188 ms QRS Dur : 092 ms QT Int : 390 ms P-R-T Axes : 065 -24 094 degrees QTc Int : 530 ms Sinus tachycardia Inferior infarct , age undetermined Nonspecific ST and T wave abnormality Prolonged QT Abnormal ECG Confirmed by JUVENAL ESPINOSA, NORA ([id number]), sports editor MARILYN HAMPTON ([id number]) on 05/22/2021 8:10:13 AM Referred By: KYRIE Confirmed By:NORA SANFORD MD
--- NOTE | 2021-05-20 12:48 | EX.ED.DYSGE1 ---
HPI History of Present Illness Chief Complaint: Overdose Informant: patient and EMS Narrative Narrative: Patient presents via EMS secondary to possible overdose. Patient is bound to wheelchair secondary to left AKA. She was found by family this morning sitting on the toilet with a bottle of Lyrica and Benadryl next to her. Patient states that she had been stuck on the toilet since sometime yesterday. She admits to taking pills but denies that this was an attempt to hurt herself. She does not remember how many she took or when. She states she has not taken any pills since the sun came up, it was dark when she last took any medication. She denies chest pain or shortness of breath. She denies abdominal pain. She thinks she may have vomited at some point. She denies nausea currently. Patient's daughter arrives to the emergency room. I spoke with her privately where the patient was in CAT scan. She states the patient does currently live alone. She has had a longstanding problem with drug abuse. She states that ultimately was the cause of her divorce. Patient was recently brought in with concerns for overdose on her baclofen. Daughter states patient seemed very apologetic when she left the hospital and promised not to take baclofen again. She then became very angry with the daughter and kicked her out. She states the last contact the patient had with anyone was evening, May 17. She states she and her stop by the patient's house on Friday the and she was on the commode at that time. When they stop by today she was still sitting on the commode. They are unsure how long she may have been there, but states it could have been for the last 3 to 4 days. He states the dog was in the home and had not been fed. They found a few empty ice cream containers in the trash but otherwise no sign the patient had been eating or drinking. Daughter states this is just one other occasion that proves that she needs to be sent to a treatment facility. She would like social work to contact her to see what they can do to get her the appropriate treatment. I did advise to the patient will require admission to clear any toxidrome that she is currently experiencing and then we could concentrate on placement and what her next step would be. [facility] Medical History Anxiety Depression Hyperlipemia Seizures Unilateral above knee amputation Home Medications buprenorphine HCl 36 mg SUBLINGUAL DAILY 02/05/14 [History Last Taken 06/23/19] duloxetine 60 mg PO DAILY@0800 02/05/14 [History Last Taken 06/23/19] [id number]-Yv-[id number]-lutein [Centravites] 1 ea PO DAILY 02/05/14 [History Last Taken 06/23/19] pregabalin [Lyrica] 150 mg PO TID PRN 02/05/14 [History Last Taken 06/23/19] acetaminophen 1,000 mg PO DAILY PRN PRN 05/20/18 [History Last Taken 06/23/19] ascorbic acid (vitamin C) [Vitamin C] 1,000 mg PO DAILY 05/20/18 [History Last Taken 06/23/19] aspirin 81 mg PO DAILY 05/20/18 [History Last Taken 06/23/19] quetiapine 300 mg PO QHS 05/20/18 [History Last Taken 06/22/19] baclofen 10 mg PO Q6H PRN PRN 09/07/18 [History Last Taken 06/21/19] duloxetine 30 mg PO QHS 06/23/19 [History Last Taken 06/22/19] carbamazepine 400 mg PO DAILY #30 tab.er.12h 06/24/19 [Rx Last Taken Unknown] sulfamethoxazole-trimethoprim 1 tab PO BID #10 tab 07/14/19 [Rx Last Taken Unknown] hydrocodone-acetaminophen 1 tab PO Q6H PRN PRN 3 Days #10 tablet 11/29/20 [Rx Last Taken Unknown] quetiapine 200 mg PO DAILY 05/20/21 [History Last Taken Unknown] Allergy/AdvReac Type Severity Reaction Status Date / Time metoclopramide HCl Allergy shaking Verified 01/26/21 19:47 [From Reglan] prochlorperazine edisylate Allergy Hives Verified 01/26/21 19:47 [From Compazine] prochlorperazine maleate Allergy Hives Verified 01/26/21 19:47 [From Compazine] promethazine HCl Allergy Hives Verified 01/26/21 19:47 [From Phenergan] Social History household members: none Smoking Status: Never smoker alcohol intake: never substance use type: does not use ROS ROS ED ROS Narrative Patient vague with answering questions. Constitutional Constitutional ED: Denies chills or fever(s) Cardiovascular Cardiovascular: Denies chest pain Respiratory/Chest Respiratory/Chest: Denies dyspnea Gastrointestinal Gastrointestinal: Reports vomiting; Denies abdominal pain or diarrhea Genitourinary Genitourinary ED: Denies dysuria Neurologic Neurologic: Denies headache(s) EXAM Physical Exam Const Vital Signs: 05/20/21 12:21 05/20/21 12:36 05/20/21 12:45 Temperature 98.1 F Temperature Source Oral Pulse Rate 116 H 115 H 114 H Respiratory Rate 13 17 16 Blood Pressure 161/91 H 160/83 H 154/83 H Blood Pressure Mean 114 108 106 Pulse Ox 99 98 98 Oxygen Delivery Method Room Air Room Air Room Air 05/20/21 13:30 Temperature Temperature Source Pulse Rate 116 H Respiratory Rate 24 H Blood Pressure 159/84 H Blood Pressure Mean 109 Pulse Ox 97 Oxygen Delivery Method Room Air Positive well nourished and well developed General Appearance ED: well developed HEENT HEENT Narrative: Dried debris around the right side of the patient's mouth. Eyes EOMs intact bilaterally Neck supple Chest Wall inspection of chest normal and palpation of chest normal Resp normal respiratory effort and clear to auscultation bilaterally Cardio regular rate and regular rhythm GI non-tender Auscultation: hypoactive bowel sounds Palpation: soft Narrative: Patient logrolled to her side. No obvious wounds over the buttocks. Extremity Extremity Narrative: Prior left AKA. Neuro Neuro Narrative: No focal neurologic deficits. Sensorium / Orientation: alert MDM MDM MDM Narrative Medical decision making narrative: Patient placed on school lunch monitor. EKG, chest x-ray, head CT ordered. Lab work including tox screen and Tylenol/salicylate levels ordered. Tegretol level obtained. Lab Data Attestation: I reviewed the patient's lab results. Labs: Laboratory Results - last 24 hr 05/20/21 05/20/21 05/20/21 12:30 12:30 12:30 WBC 17.4 H RBC 5.04 Hgb 14.7 Hct 45.2 MCV 89.7 MCH 29.2 MCHC 32.5 RDW Std Deviation 43.7 RDW Coeff of Adilia 13.4 Plt Count 309 MPV 10.9 Immature Gran % (Auto) 1.000 H Neut % (Auto) 78.6 H Lymph % (Auto) 13.2 L [place] % (Auto) 6.3 Eos % (Auto) 0.2 Baso % (Auto) 0.7 Absolute Neuts (auto) 13.7 H Absolute Lymphs (auto) 2.30 Nucleated RBC % 0 PT 13.3 INR 1.1 APTT 29.3 Sodium 142 Potassium 3.4 L Chloride 103 Carbon Dioxide 28.0 Anion Gap 11 BUN 15 Creatinine 0.87 Estim Creat Clear Calc 59.02 Est GFR (MDRD) Af Amer 87 Est GFR (MDRD) Non-Af 72 BUN/Creatinine Ratio 17.3 Glucose 211 H Lactic Acid Calcium 9.5 Total Bilirubin 0.60 Direct Bilirubin 0.18 AST 41 H ALT 50 Alkaline Phosphatase 106 Total Creatine Kinase Total Protein 8.5 H Albumin 4.6 Globulin 3.9 Urine Color Urine Clarity Urine pH Ur Specific [place] Urine Protein Urine Glucose (UA) Urine Ketones Urine Occult Blood Urine Nitrite Urine Bilirubin Urine Urobilinogen Ur Leukocyte Esterase Urine RBC Urine WBC Ur Squamous Epith Cells Urine Bacteria Urine Mucus Salicylates Urine Opiates Screen Urine Methadone Screen Acetaminophen Ur Barbiturates Screen Carbamazepine Ur Phencyclidine Scrn Ur Amphetamines Screen U Methamphetamin-MDMA U Benzodiazepines Scrn Urine Cocaine Screen U Cannabinoids Screen Ur Drug Screen Comment Ethyl Alcohol 05/20/21 05/20/21 05/20/21 12:30 12:30 12:30 WBC RBC Hgb Hct MCV MCH MCHC RDW Std Deviation RDW Coeff of Adilia Plt Count MPV Immature Gran % (Auto) Neut % (Auto) Lymph % (Auto) [place] % (Auto) Eos % (Auto) Baso % (Auto) Absolute Neuts (auto) Absolute Lymphs (auto) Nucleated RBC % PT INR APTT Sodium Potassium Chloride Carbon Dioxide Anion Gap BUN Creatinine Estim Creat Clear Calc Est GFR (MDRD) Af Amer Est GFR (MDRD) Non-Af BUN/Creatinine Ratio Glucose Lactic Acid 3.6 H* Calcium Total Bilirubin Direct Bilirubin AST ALT Alkaline Phosphatase Total Creatine Kinase Total Protein Albumin Globulin Urine Color Urine Clarity Urine pH Ur Specific [place] Urine Protein Urine Glucose (UA) Urine Ketones Urine Occult Blood Urine Nitrite Urine Bilirubin Urine Urobilinogen Ur Leukocyte Esterase Urine RBC Urine WBC Ur Squamous Epith Cells Urine Bacteria Urine Mucus Salicylates < 1.7 L Urine Opiates Screen Urine Methadone Screen Acetaminophen < 2.0 L Ur Barbiturates Screen Carbamazepine Ur Phencyclidine Scrn Ur Amphetamines Screen U Methamphetamin-MDMA U Benzodiazepines Scrn Urine Cocaine Screen U Cannabinoids Screen Ur Drug Screen Comment Ethyl Alcohol < 3.0 05/20/21 05/20/21 05/20/21 12:30 12:30 13:18 WBC RBC Hgb Hct MCV MCH MCHC RDW Std Deviation RDW Coeff of Adilia Plt Count MPV Immature Gran % (Auto) Neut % (Auto) Lymph % (Auto) [place] % (Auto) Eos % (Auto) Baso % (Auto) Absolute Neuts (auto) Absolute Lymphs (auto) Nucleated RBC % PT INR APTT Sodium Potassium Chloride Carbon Dioxide Anion Gap BUN Creatinine Estim Creat Clear Calc Est GFR (MDRD) Af Amer Est GFR (MDRD) Non-Af BUN/Creatinine Ratio Glucose Lactic Acid Calcium Total Bilirubin Direct Bilirubin AST ALT Alkaline Phosphatase Total Creatine Kinase 708 H Total Protein Albumin Globulin Urine Color Urine Clarity Urine pH Ur Specific [place] Urine Protein Urine Glucose (UA) Urine Ketones Urine Occult Blood Urine Nitrite Urine Bilirubin Urine Urobilinogen Ur Leukocyte Esterase Urine RBC Urine WBC Ur Squamous Epith Cells Urine Bacteria Urine Mucus Salicylates Urine Opiates Screen NEGATIVE Urine Methadone Screen NEGATIVE Acetaminophen Ur Barbiturates Screen NEGATIVE Carbamazepine < 0.5 L Ur Phencyclidine Scrn NEGATIVE Ur Amphetamines Screen NEGATIVE U Methamphetamin-MDMA NEGATIVE U Benzodiazepines Scrn NEGATIVE Urine Cocaine Screen NEGATIVE U Cannabinoids Screen NEGATIVE Ur Drug Screen Comment Ethyl Alcohol 05/20/21 13:19 WBC RBC Hgb Hct MCV MCH MCHC RDW Std Deviation RDW Coeff of Adilia Plt Count MPV Immature Gran % (Auto) Neut % (Auto) Lymph % (Auto) [place] % (Auto) Eos % (Auto) Baso % (Auto) Absolute Neuts (auto) Absolute Lymphs (auto) Nucleated RBC % PT INR APTT Sodium Potassium Chloride Carbon Dioxide Anion Gap BUN Creatinine Estim Creat Clear Calc Est GFR (MDRD) Af Amer Est GFR (MDRD) Non-Af BUN/Creatinine Ratio Glucose Lactic Acid Calcium Total Bilirubin Direct Bilirubin AST ALT Alkaline Phosphatase Total Creatine Kinase Total Protein Albumin Globulin Urine Color Yellow Urine Clarity Sl. Cloudy Urine pH 5.0 Ur Specific [place] 1.025 Urine Protein 100 H Urine Glucose (UA) Normal Urine Ketones 15 H Urine Occult Blood 50 H Urine Nitrite Negative Urine Bilirubin Negative Urine Urobilinogen Normal Ur Leukocyte Esterase Negative Urine RBC 0-5 SEEN Urine WBC 0 SEEN Ur Squamous Epith Cells 0-5 SEEN Urine Bacteria RARE Urine Mucus RARE Salicylates Urine Opiates Screen Urine Methadone Screen Acetaminophen Ur Barbiturates Screen Carbamazepine Ur Phencyclidine Scrn Ur Amphetamines Screen U Methamphetamin-MDMA U Benzodiazepines Scrn Urine Cocaine Screen U Cannabinoids Screen Ur Drug Screen Comment Ethyl Alcohol Radiography Chest X-Ray - ED: 1 View, Read by ED Physician and Chronic Changes Diagnostic Testing: Clinical Impression(s) from Imaging Studies Brain CT 05/20/21 12:45 IMPRESSION: 1. No CT evidence of intracranial bleeding, acute ischemic infarct or acute intracranial abnormality. 2. 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 Electronically Signed: Kavon Johansen MD at 13:52 EST , Service support , EKG Initial EKG: Attestation: I personally reviewed and interpreted this EKG as follows: Interpretation: Sinus Tachycardia (Sinus tach at 111. No acute ischemia.) Treatment and Re-Evaluation Comments:: Patient's lab work indicates an elevated white count of 17.4 with left shift. Chemistry studies reveal normal renal function. Glucose is 211. CK level is elevated at 708. Lactic acid is 3.6. Tylenol and salicylate levels negative. Alcohol negative. Urine tox screen negative. Tegretol level returns at less than 0.5. I will speak with hospitalist this patient will require admission for further observation to clear this current toxidrome. She will answer questions but still seems confused at this time. I will relay information from daughter the family is quite concerned and feels that she does need placement for drug treatment and psychiatric concerns. Discharge Plan Dx/Rx/DC Orders Clinical Impression: Acute alteration in mental status, Drug ingestion, Rhabdomyolysis Disposition Disposition: Acute Care Hospital [facility]
[2021-05-20] MEDS: 0.9% Normal Saline 1,000 ML 150 ML IV ×3 (13:05→22:02)
[2021-05-20 13:08] LABS: Absolute Neutrophil Count 13.7 X10^3/uL (2.0-7.7); Basophil# 0.12 X10^3/uL; Basophil% 0.7 % (0-1); Eosinophil# 0.03 X10^3/uL; Eosinophils% 0.2 % (0-5); Hematocrit 45.2 % (37-47); Hemoglobin 14.7 g/dL (12.0-15.0); Lymphocyte % 13.2 % (19-41); Mean Corp Hgb Conc 32.5 g/dL (32-36); Mean Corpuscular Hgb 29.2 pg (27.0-32.0); Mean Corpuscular Volume 89.7 fL (81-99); Mean Platelet Vol. 10.9 fl (6.2-12.0); Monocyte# 1.09 X10^3/uL; Monocyte% 6.3 % (0-10); NRBC Flagged by Analyzer 0 % (0-5); Neutrophil # 13.66 X10^3/uL (2.7-7.7); Neutrophil % 78.6 % (47-70); Platelet Count 309 K/mm3 (150-450); RBC Distribution Width CV 13.4 % (11.6-14.6); RBC Distribution Width SD 43.7 fl (35.1-43.9); Red Blood Count 5.04 M/mm3 (4.2-5.4); White Blood Count 17.4 K/mm3 (4.4-11.0)
[2021-05-20 13:18] LABS: International Normalized Ratio 1.1; Prothrombin Time (Protime)PT. 13.3 SECONDS (11.7-14.9)
[2021-05-20 13:19] LABS: Partial Thromboplast Time 29.3 Seconds (24.1-36.2)
[2021-05-20 13:20] LABS: Alcohol, Blood (Medical)-Serum < 3.0 mg/dL
[2021-05-20 13:21] LABS: AST(SGOT) 41 U/L (15-37); Acetaminophen (Tylenol) Level < 2.0 ug/mL (10.0-30.0); Alanine Aminotransfer ALT/SGPT 50 U/L (13-56); Albumin, Serum 4.6 g/dL (3.2-5.0); Alkaline Phosphatase 106 U/L (45-117); Anion Gap 11 (5-15); BUN 15 mg/dL (7-18); BUN/Creat Ratio 17.3 RATIO (10-20); Bilirubin, Direct 0.18 mg/dL (0.00-0.30); Calcium,Total 9.5 mg/dL (8.5-10.1); Chloride 103 mmol/L (98-107); Creatinine, Serum 0.87 mg/dL (0.55-1.02); EST Glomerular Filtration Rate 72 mL/min (>60); Est Glom Filt Rate - Afr Amer 87 mL/min (>60); Estimated Creatinine Clearance 59.02 ml/min; Globulin 3.9 g/dL (2.2-4.2); Glucose 211 mg/dL (74-106); Potassium 3.4 mmol/L (3.5-5.1); Protein, Total 8.5 g/dL (6.4-8.2); Salicylate < 1.7 mg/dL (2.8-20.0); Sodium Level 142 mmol/L (136-145)
[2021-05-20 13:22] LABS: CPK Total, Creatine Kinase 708 U/L (26-192)
[2021-05-20 13:23] LABS: White Blood Cells 0 SEEN /hpf (0-5)
[2021-05-20 13:26] LABS: Color, Urine Yellow (Yellow); Glucose, Dipstick Normal (Normal); Ketone-Dipstick 15 mg/dl (Negative); Leukocyte Esterase-Dipstick Negative /ul (Negative); Nitrite-Dipstick Negative (Negative); Occult Blood-Urine 50 /ul (Negative); Protein-Dipstick 100 mg/dl (Negative); Specific Gravity, Urine 1.025 (1.002-1.030); Urine Bilirubin Dipstick Negative (Negative); Urine Clarity Sl. Cloudy (Clear); Urine Urobilinogen Normal (Normal)
[2021-05-20 13:32] LABS: Lactic Acid 3.6 mmol/L (0.4-1.9)
[2021-05-20 13:33] LABS: Bacteria RARE /hpf (None Seen); Mucous, Urine RARE /hpf (<or=2+); Red Blood Cells-Urine 0-5 SEEN /hpf (0-5); Squamous Epithelial Cells - UA 0-5 SEEN /hpf (5-10)
--- NOTE | 2021-05-20 13:34 | NURSING ---
pts daughter, Alison at bedside. Alison states This is not the first time this has happened. Usually, several times a year she does this. She lives alone. I asked my brother to check up on her but we did not get a response today. Family member had checked up on patient and she had been sitting on the toilet. The dog had gone to the bathroom all over the place. Daughter is tearful at bedside and would like director social welfare to talk with herself and patient about placement and help. Alison states She cannot take care of herself anymore. Dr. Vzaquez at bedside talking with patients daughter.
[2021-05-20 13:38] LABS: Amphetamine Urine VISTA NEGATIVE (<1000 ng/mL); Barbiturate Urine VISTA NEGATIVE (< 200 ng/mL); Benzodiazepine Urine VISTA NEGATIVE (< 200 ng/mL); Cocaine Urine VISTA NEGATIVE (< 300 ng/mL); Ecstacy Urine VISTA NEGATIVE (< 500 ng/mL); Methadone Urine VISTA NEGATIVE (< 300 ng/mL); PCP Urine VISTA NEGATIVE (< 25 ng/mL); THC Urine VISTA NEGATIVE (< 50 ng/mL); Vista UDS pH Range 5
[2021-05-20 13:49] LABS: Carbamazepine (Tegretol) < 0.5 ug/mL (4.0-12.0)
--- NOTE | 2021-05-20 14:15 | PCM.HP.STD ---
HPI - General General Date of Admission: 05/20/21 Date of Service: 05/20/21 Chief Complaint: Altered mental status HPI Narrative PARDEEP MARK, is a 56 F with past medical history significant for left AKA with reflex sympathetic syndrome/chronic pain who was brought to the emergency department by the family on account of altered mental status. Patient was apparently found by the family stuck on the toilet. Patient was suspected to have overdosed on any medication. Empty pill containers were apparently found by his side. Patient was brought to the emergency department subsequently. Patient could not provide any reliable history in the ER. When asked where she was her answer was I am . Asked why she responded that way patient stated her daughter told her so. Underwent subsequent evaluation was found to have elevated lactic acid level but no infectious etiology. She was found to have elevated CPK consistent with rhabdomyolysis. Subsequently admitted to the intensive care unit for further management [facility] Medical History Anxiety Depression Hyperlipemia Seizures Unilateral above knee amputation Home Medications buprenorphine HCl 36 mg SUBLINGUAL DAILY 02/05/14 [History Last Taken 06/23/19] duloxetine 60 mg PO DAILY@0800 02/05/14 [History Last Taken 06/23/19] rl-pam-EP-Nb-Th-[id number]-lutein [Centravites] 1 ea PO DAILY 02/05/14 [History Last Taken 06/23/19] pregabalin [Lyrica] 150 mg PO TID PRN 02/05/14 [History Last Taken 06/23/19] acetaminophen 1,000 mg PO DAILY PRN PRN 05/20/18 [History Last Taken 06/23/19] ascorbic acid (vitamin C) [Vitamin C] 1,000 mg PO DAILY 05/20/18 [History Last Taken 06/23/19] aspirin 81 mg PO DAILY 05/20/18 [History Last Taken 06/23/19] quetiapine 300 mg PO QHS 05/20/18 [History Last Taken 06/22/19] baclofen 10 mg PO Q6H PRN PRN 09/07/18 [History Last Taken 06/21/19] duloxetine 30 mg PO QHS 06/23/19 [History Last Taken 06/22/19] carbamazepine 400 mg PO DAILY #30 tab.er.12h 06/24/19 [Rx Last Taken Unknown] sulfamethoxazole-trimethoprim 1 tab PO BID #10 tab 07/14/19 [Rx Last Taken Unknown] hydrocodone-acetaminophen 1 tab PO Q6H PRN PRN 3 Days #10 tablet 11/29/20 [Rx Last Taken Unknown] quetiapine 200 mg PO DAILY 05/20/21 [History Last Taken Unknown] Allergy/AdvReac Type Severity Reaction Status Date / Time metoclopramide HCl Allergy shaking Verified 01/26/21 19:47 [From Reglan] prochlorperazine edisylate Allergy Hives Verified 01/26/21 19:47 [From Compazine] prochlorperazine maleate Allergy Hives Verified 01/26/21 19:47 [From Compazine] promethazine HCl Allergy Hives Verified 01/26/21 19:47 [From Phenergan] Social History household members: none Smoking Status: Never smoker alcohol intake: never substance use type: does not use ROS Review of Systems ROS Unobtainable: due to encephalopathy Vital Signs Vital Signs Vital Signs: 05/20/21 12:21 05/20/21 12:36 05/20/21 12:45 Temperature 98.1 F Temperature Source Oral Pulse Rate 116 H 115 H 114 H Respiratory Rate 13 17 16 Blood Pressure 161/91 H 160/83 H 154/83 H Blood Pressure Mean 114 108 106 Pulse Ox 99 98 98 Oxygen Delivery Method Room Air Room Air Room Air 05/20/21 13:30 05/20/21 14:01 Temperature Temperature Source Pulse Rate 116 H 118 H Respiratory Rate 24 H 17 Blood Pressure 159/84 H 160/87 H Blood Pressure Mean 109 111 Pulse Ox 97 96 Oxygen Delivery Method Room Air Room Air Weight Weight: 99.1 kg Body Mass Index (BMI) 38.7 Physical Exam Narrative GENERAL: In no apparent distress HEENT: Atraumatic; EYES; Anicteric, Normal Conjunctiva NECK; supple, normal thyroid, RESPIRATORY: Diminished to auscultation CARDIOVASCULAR: Regular S1 S2, GI: soft, normoactive bowel sounds, : No Renal angle tenderness; EXTREMITIES: No edema, no clubbing, MUSCULOSKELETAL: Left AKA NEURO: Awake; no lateralizing signs. SKIN: No Rash PSYCH; Flat affect Results Lab / Micro Data Result Diagrams: 05/20/21 12:30 05/20/21 12:30 Labs: Laboratory Results - last 24 hr 05/20/21 12:30: WBC 17.4 H, RBC 5.04, Hgb 14.7, Hct 45.2, MCV 89.7, MCH 29.2, MCHC 32.5, RDW Std Deviation 43.7, RDW Coeff of Adilia 13.4, Plt Count 309, MPV 10.9, Immature Gran % (Auto) 1.000 H, Neut % (Auto) 78.6 H, Lymph % (Auto) 13.2 L, [place] % (Auto) 6.3, Eos % (Auto) 0.2, Baso % (Auto) 0.7, Absolute Neuts (auto) 13.7 H, Absolute Lymphs (auto) 2.30, Nucleated RBC % 0 05/20/21 12:30: PT 13.3, INR 1.1, APTT 29.3 05/20/21 12:30: Sodium 142, Potassium 3.4 L, Chloride 103, Carbon Dioxide 28.0, Anion Gap 11, BUN 15, Creatinine 0.87, Estim Creat Clear Calc 59.02, Est GFR (MDRD) Af Amer 87, Est GFR (MDRD) Non-Af 72, BUN/Creatinine Ratio 17.3, Glucose 211 H, Calcium 9.5, Total Bilirubin 0.60, Direct Bilirubin 0.18, AST 41 H, ALT 50, Alkaline Phosphatase 106, Total Protein 8.5 H, Albumin 4.6, Globulin 3.9 05/20/21 12:30: Ethyl Alcohol < 3.0 05/20/21 12:30: Lactic Acid 3.6 H* 05/20/21 12:30: Salicylates < 1.7 L, Acetaminophen < 2.0 L 05/20/21 12:30: Total Creatine Kinase 708 H 05/20/21 12:30: Carbamazepine < 0.5 L 05/20/21 13:18: Urine Opiates Screen NEGATIVE, Urine Methadone Screen NEGATIVE, Ur Barbiturates Screen NEGATIVE, Ur Phencyclidine Scrn NEGATIVE, Ur Amphetamines Screen NEGATIVE, U Methamphetamin-MDMA NEGATIVE, U Benzodiazepines Scrn NEGATIVE, Urine Cocaine Screen NEGATIVE, U Cannabinoids Screen NEGATIVE, Ur Drug Screen Comment 05/20/21 13:19: Urine Color Yellow, Urine Clarity Sl. Cloudy, Urine pH 5.0, Ur Specific [place] 1.025, Urine Protein 100 H, Urine Glucose (UA) Normal, Urine Ketones 15 H, Urine Occult Blood 50 H, Urine Nitrite Negative, Urine Bilirubin Negative, Urine Urobilinogen Normal, Ur Leukocyte Esterase Negative, Urine RBC 0-5 SEEN, Urine WBC 0 SEEN, Ur Squamous Epith Cells 0-5 SEEN, Urine Bacteria RARE, Urine Mucus RARE Micro: Microbiology 05/20/21 13:00 Nasal Secretion SARS-CoV-2 Antigen (Rapid) - Final Radiology Impression Brain CT 05/20/21 12:[address]: 1[address] No [address] evidence of intracranial bleeding, acute ischemic infarct or acute intracranial abnormality. 2. 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 Electronically Signed: Kavon Johansen MD at 13:52 EST , Service support , Assessment & Plan Assessment/Plan (1) Toxic encephalopathy: PLAN: Patient is a 56-year-old lady admitted with altered mental status 1. Toxic encephalopathy ?Suspected to be secondary to accidental drug overdose from patient multiple psychotropic medications. Admitted to the intensive care unit where patient is currently being monitored closely. The suspected offending medications held on admission 2. Acute rhabdomyolysis ?Secondary to prolonged period of immobilization on IV fluids with serial CPK levels ordered 3. Hypokalemia ?Corrected per protocol 4. Lactic acidosis ?Etiology not clear patient infectious work-up so far negative to date 5. Complex partial seizures ?Patient is on Tegretol levels ordered prior to reinitiation 6. 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 Patient has residual phantom leg syndrome 7. Depression with anxiety ?Psychotropic medications held in view of her presentation 8. Obesity with BMI of 30.7 9. DVT prophylaxis ?SC Lovenox Charges/Coding Visit Charges Inpatient E&M: 13252 Init Hosp L3
[2021-05-20] MEDS: Potassium Chloride 10mEq/100mL 10 MEQ/100 ML IV.SOLN. 100 MEQ IV BOLUS ×3 (15:14→18:42)
[2021-05-20 17:00] LABS: Reflex Lactate? Y
[2021-05-20] MEDS: Potassium Chloride 10mEq/100mL 10 MEQ/100 ML IV.SOLN. 75 MEQ IV BOLUS (20:39)
[2021-05-21] VITALS (19 sets, daily range): BP systolic 142–165; BP diastolic 92–105; PULSE 96–115; RESP 15–23; TEMP 37.1–38.3; O2SAT 94–97
[2021-05-21 04:22] LABS: Absolute Lymphocyte Count 2.88 X10^3/uL (0.83-4.51); Absolute Neutrophil Count 14.3 X10^3/uL (2.0-7.7); Basophil% 0.5 % (0-1); Eosinophil# 0.07 X10^3/uL; Eosinophils% 0.4 % (0-5); Hematocrit 41.4 % (37-47); Hemoglobin 13.4 g/dL (12.0-15.0); Lymphocyte # 2.88 X10^3/ul (0.83-4.51); Lymphocyte % 14.8 % (19-41); Mean Corp Hgb Conc 32.4 g/dL (32-36); Mean Corpuscular Hgb 29.3 pg (27.0-32.0); Mean Corpuscular Volume 90.6 fL (81-99); Mean Platelet Vol. 10.3 fl (6.2-12.0); Monocyte# 2.01 X10^3/uL; Monocyte% 10.3 % (0-10); NRBC Flagged by Analyzer 0 % (0-5); Neutrophil # 14.31 X10^3/uL (2.7-7.7); Neutrophil % 73.2 % (47-70); POSITIVE DIFFERENTIAL YES; Platelet Count 248 K/mm3 (150-450); RBC Distribution Width CV 13.8 % (11.6-14.6); RBC Distribution Width SD 45.8 fl (35.1-43.9); Red Blood Count 4.57 M/mm3 (4.2-5.4); White Blood Count 19.5 K/mm3 (4.4-11.0)
[2021-05-21 04:28] LABS: Differential Indicated SCAN CRITERIA MET
[2021-05-21] MEDS: 0.9% Normal Saline 1,000 ML 150 ML IV ×4 (04:43→23:58)
[2021-05-21 04:50] LABS: ALB/GLOB Ratio 0.9 RATIO (0.9-2.4); AST(SGOT) 36 U/L (15-37); Alanine Aminotransfer ALT/SGPT 44 U/L (13-56); Albumin, Serum 3.5 g/dL (3.2-5.0); Alkaline Phosphatase 88 U/L (45-117); Anion Gap 6 (5-15); BUN 12 mg/dL (7-18); BUN/Creat Ratio 19.4 RATIO (10-20); Calcium,Total 8.8 mg/dL (8.5-10.1); Chloride 109 mmol/L (98-107); Creatinine, Serum 0.62 mg/dL (0.55-1.02); EST Glomerular Filtration Rate 106 mL/min (>60); Est Glom Filt Rate - Afr Amer 128 mL/min (>60); Estimated Creatinine Clearance 79.18 ml/min; Glucose 162 mg/dL (74-106); Magnesium 2.2 mg/dL (1.6-2.6); Phosphorus 2.8 mg/dL (2.5-4.9); Potassium 3.8 mmol/L (3.5-5.1); Protein, Total 7.5 g/dL (6.4-8.2); Sodium Level 141 mmol/L (136-145)
[2021-05-21 04:57] LABS: CPK Total, Creatine Kinase 485 U/L (26-192)
[2021-05-21] MEDS: Enoxaparin 40 MG/0.4 ML Syringe SC (07:45)
[2021-05-21 09:20] LABS: Procalcitonin < 0.04 ng/mL (0.00-0.09)
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
--- NOTE | 2021-05-21 14:12 | NURSING ---
Addendum entered by Bella Oro 05/21/21 14:30: 1420 report called to Marie RN on PCU 1430 Aminata varma transferred patient to PCU 129 on still cleaner Addendum entered by Bella Oro 05/21/21 14:16: 1416 called daughter Alison updated on POC and transfer to PCU 129 Original Note: 1351 called PCU in attempt to call Report, Merry RAMOS said primary RN would call back for report when available
[2021-05-21 14:52] LABS: M R Staph aureus DNA By PCR Negative (Negative); Probe Check PASS; Specimen Processing Control PASS
--- NOTE | 2021-05-21 18:04 | PCM.PN.HOSP ---
Subjective Subjective Patient was admitted yesterday after being found confused and had 2 empty pill bottles 1 with Lyrica 1 with Benadryl at her side. She evidently has been confused since that point time but is clinically stable. She has been febrile overnight and is not currently on any antibiotics. I did start those this morning upon review of her data. On my visit she followed commands with a delayed response and has no focal neurological deficits but kept saying [place] over and over again. She has a history of psychiatric admissions in the past and I suspect this was an intentional overdose. Objective Data Objective Data Vital Signs: Vital Signs Temp Pulse Resp BP Pulse Ox 99.8 F H 101 H 17 159/92 H 97 05/21/21 14:00 05/21/21 15:14 05/21/21 14:00 05/21/21 14:00 05/21/21 14:00 Oxygen Delivery Method Room Air Weight: 97.4 kg Body Mass Index (BMI) 37.8 Intake & Output: Intake and Output for Last 24 Hours 05/20/21 05/20/21 05/21/21 00:59 23:59 23:59 Intake Total 3081.5 / 3081.5 Output Total 1600 / 1600 Balance 1481.5 / 1481.5 Lab / Micro Data Result Diagrams: 05/21/21 04:19 05/21/21 04:19 Labs: Laboratory Results - last 24 hr 05/21/21 04:19: WBC 19.5 H, RBC 4.57, Hgb 13.4, Hct 41.4, MCV 90.6, MCH 29.3, MCHC 32.4, RDW Std Deviation 45.8 H, RDW Coeff of Adilia 13.8, Plt Count 248, MPV 10.3, Immature Gran % (Auto) 0.800, Neut % (Auto) 73.2 H, Lymph % (Auto) 14.8 L, [place] % (Auto) 10.3 H, Eos % (Auto) 0.4, Baso % (Auto) 0.5, Absolute Neuts (auto) 14.3 H, Absolute Lymphs (auto) 2.88, Nucleated RBC % 0, Diff Path Review November05/21/21 04:19: Sodium 141, Potassium 3.8, Chloride 109 H, Carbon Dioxide 26.0, Anion Gap 6, BUN 12, Creatinine 0.62, Estim Creat Clear Calc 79.18, Est GFR (MDRD) Af Amer 128, Est GFR (MDRD) Non-Af 106, BUN/Creatinine Ratio 19.4, Glucose 162 H, Calcium 8.8, Phosphorus 2.8, Magnesium 2.2, Total Bilirubin 0.70, AST 36, ALT 44, Alkaline Phosphatase 88, Total Protein 7.5, Albumin 3.5, Globulin 4.0, Albumin/Globulin Ratio 0.9 05/21/21 04:19: Total Creatine Kinase 485 H 05/21/21 07:42: Procalcitonin < 0.04 05/21/21 07:50: MRSA (PCR) Negative Micro: Microbiology 05/20/21 13:00 Nasal Secretion SARS-CoV-2 Antigen (Rapid) - Final Physical Exam Const alert and no apparent distress Constitutional Narrative: Obese middle-aged white female sitting up in bed, follows commands with delayed response, no meaningful interaction and patient keeps yelling [place] but does tell me her name upon asking, sitter at bedside, no distress Exam Limitations: altered mental status Nutritional Appearance: obese HEENT head/scalp atraumatic and moist oral mucous membranes Head and Scalp: normocephalic Eyes PERRL, EOMs intact bilaterally and conjunctivae normal Eyes Narrative: No scleral icterus Neck no lymphadenopathy, supple and no JVD Neck Narrative: Trachea midline, short thick neck Resp normal respiratory effort, no retractions, no use of accessory muscles and clear to auscultation bilaterally Auscultation: Negative for crackles, rales, rhonchi or wheezes Cardio regular rate, regular rhythm, S1 normal heart sound, S2 normal heart sound, no murmurs, no rub, no gallops, no clicks and no JVD GI normal to inspection, nondistended, normoactive bowel sounds, soft to palpation, non-tender and non-distended Extremity no clubbing, cyanosis or edema Peripheral Pulses: Yes pulses 2+ throughout Skin no rashes or lesions noted, no wounds, skin turgor normal, no jaundice, no petechiae and no mottling Neuro CN's II-XII intact bilaterally, moves all extremities and no focal motor deficits Neuro Narrative: Unable to answer orientation questions but follows commands with delayed response, no focal deficit noted on exam, reflexes 2+, remains encephalopathic Sensorium / Orientation: awake and alert Psych Psych Narrative: Unable to assess Assessment & Plan Assessment/Plan (1) Toxic encephalopathy: (2) Fever: (3) Rhabdomyolysis: (4) History of drug overdose: (5) Anxiety and depression: PLAN: Toxic encephalopathy secondary to suspected intentional overdose -Patient had an empty bottle of Lyrica and Benadryl at her side when she was found -Follows commands today but with delayed response -No focal deficits -Continue monitoring on PCU given overdoses -CT was performed and found old stroke but no other acute abnormalities -If encephalopathy continues consider MRI and neuro consultation tomorrow but would like medications to clear if able -Check EEG -Continue sitter at bedside -Tox screen is unimpressive Acute rhabdomyolysis -Continue IV fluids -CK is trending down 708 08/17/1984 -Serum creatinine is normal Hypokalemia -Resolved Lactic acidosis -Resolved Leukocytosis/fever -Cultures are pending -Start Unasyn -PCT is negative -Covid is negative History of seizures -Check EEG -Tegretol level is low -Restart Tegretol History of left lower extremity amputation -No current issues Depression and anxiety -History of suicide attempts in the past -Have crisis see patient when she is more stable from a mental status -Anticipate patient might need placed -Continue to hold antipsychotics/antidepressants given current mental status Obesity -BMI 38 -Complicates overall treatment, prognosis, outcome DVT prophylaxis -Continue Lovenox CODE STATUS -Full code Charges/Coding Visit Charges Inpatient E&M: 71586 Subs Hosp L2
--- NOTE | 2021-05-21 19:37 | PCS.PANDOC ---
PANDEMIC DOCUMENTATION INITIATED: Date: 02/26/2021 Time: 190
[2021-05-22] VITALS (8 sets, daily range): BP systolic 155–167; BP diastolic 82–97; PULSE 88–102; RESP 12–18; TEMP 36.8–37.9; O2SAT 95–96
[2021-05-22] MEDS: 0.9% Normal Saline 1,000 ML 150 ML IV (05:56)
--- NOTE | 2021-05-22 07:46 | TELEMED_ITS ---
[facility] Telemed has confirmed receipt of a request for visit. This document confirms receipt of the order initiating the consult. To find the results of the consultation, please view the patient's reports for the scanned Telemed Consult.
[2021-05-22 08:18] LABS: Absolute Lymphocyte Count 2.75 X10^3/uL (0.83-4.51); Absolute Neutrophil Count 14.1 X10^3/uL (2.0-7.7); Basophil# 0.15 X10^3/uL; Basophil% 0.8 % (0-1); Eosinophil# 0.08 X10^3/uL; Eosinophils% 0.4 % (0-5); Hematocrit 39.5 % (37-47); Hemoglobin 12.5 g/dL (12.0-15.0); Lymphocyte # 2.75 X10^3/ul (0.83-4.51); Lymphocyte % 14.5 % (19-41); Mean Corp Hgb Conc 31.6 g/dL (32-36); Mean Corpuscular Hgb 28.8 pg (27.0-32.0); Mean Platelet Vol. 10.7 fl (6.2-12.0); Monocyte# 1.61 X10^3/uL; Monocyte% 8.5 % (0-10); NRBC Flagged by Analyzer 0 % (0-5); Neutrophil # 14.12 X10^3/uL (2.7-7.7); Neutrophil % 74.7 % (47-70); POSITIVE DIFFERENTIAL YES; Platelet Count 213 K/mm3 (150-450); RBC Distribution Width SD 47.5 fl (35.1-43.9); Red Blood Count 4.34 M/mm3 (4.2-5.4); White Blood Count 18.9 K/mm3 (4.4-11.0)
[2021-05-22 08:21] LABS: Differential Indicated SCAN CRITERIA MET
[2021-05-22 08:37] LABS: Anion Gap 5 (5-15); BUN 12 mg/dL (7-18); BUN/Creat Ratio 22.4 RATIO (10-20); Calcium,Total 8.4 mg/dL (8.5-10.1); Chloride 112 mmol/L (98-107); Creatinine, Serum 0.54 mg/dL (0.55-1.02); EST Glomerular Filtration Rate 125 mL/min (>60); Est Glom Filt Rate - Afr Amer 151 mL/min (>60); Estimated Creatinine Clearance 90.91 ml/min; Glucose 136 mg/dL (74-106); Potassium 3.4 mmol/L (3.5-5.1); Sodium Level 142 mmol/L (136-145)
[2021-05-22] MEDS: Enoxaparin 40 MG/0.4 ML Syringe SC (09:57)
--- NOTE | 2021-05-22 11:08 | MRI_ITS ---
EXAM: MR HEAD WITHOUT INTRAVENOUS CONTRAST CLINICAL INDICATION: Toxic Encephalopathy, AMS TECHNIQUE: Multiplanar and multisequence MR images of the brain were obtained without intravenous contrast. This report was created using [employer] report generation technology. COMPARISON: 05.20.21 ct head FINDINGS: BRAIN AND EXTRA-AXIAL SPACES: Old right frontal lobe infarct. There are no acute infarcts. No intra- or extra-axial hemorrhage. No intracranial mass or mass effect. Posterior fossa structures are unremarkable. Ventricles are appropriate for age. No hydrocephalus. Basal cisterns are patent. SELLA: Unremarkable. Normal sella turcica, pituitary gland, infundibular stalk, optic chiasm and hypothalamus. AUDITORY SYSTEM: Unremarkable. The internal auditory canals are patent. BONES/JOINTS: Unremarkable. No discrete lytic or blastic abnormalities. SINUSES: Unremarkable as visualized. Clear. MASTOID AIR CELLS: Unremarkable as visualized. Clear. ORBITS: Unremarkable as visualized. Both globes, extraocular muscles, optic nerves and retrobulbar fat appear unremarkable. VASCULATURE: Unremarkable as visualized. Normal flow voids in the major intracranial circulation. MRI/Brain without Contrast IMPRESSION: Old right frontal lobe infarct. There are no acute infarcts. Electronically Signed: Spencer Herrera MD at 15:23 EST , Service support ,
[2021-05-22 14:47] LABS: Pathologist Review Reviewed
--- NOTE | 2021-05-22 15:11 | PN.HOSP_ITS ---
Subjective Subjective Patient is less interactive today although will awaken. Daughter is at the bedside and indicates that she has had significant issues in the past with polypharmacy, abuse of her medications, suicide attempts and psychiatric admissions. We were able to converse with both her daughter at the bedside and her son who is a medical student at [employer] via [employer] We discussed that I really feel that most of her issues are toxic encephalopathy at this time with relationship to her overdose. Family is in agreement. We did discuss a previous stroke that showed up on her CT scan and nobody was aware that this was an issue. An EEG is pending and they were asking about results which were still pending at the time of my discussion. We did discuss treatment with Unasyn for empiric coverage of aspiration. Objective Data Objective Data Vital Signs: Vital Signs Temp Pulse Resp BP Pulse Ox 98.3 F 96 12 158/90 H 95 05/22/21 11:45 05/22/21 11:45 05/22/21 11:45 05/22/21 11:45 05/22/21 11:45 Oxygen Delivery Method Room Air Weight: 97.4 kg Body Mass Index (BMI) 37.8 Intake & Output: Intake and Output for Last 24 Hours 05/20/21 05/21/21 05/22/21 23:59 23:59 23:59 Intake Total 4193.5 / 4193.5 2006 Output Total 2024 / 2024 375 / 375 Balance 2168.5 / 2168.5 1632 / 1632 Lab / Micro Data Result Diagrams: 05/22/21 08:00 05/22/21 08:00 Labs: Laboratory Results - last 24 hr 05/21/21 04:19: Diff Path Review Reviewed 05/22/21 08:00: WBC 18.9 H, RBC 4.34, Hgb 12.5, Hct 39.5, MCV 91.0, MCH 28.8, MCHC 31.6 L, RDW Std Deviation 47.5 H, RDW Coeff of Adilia 14.0, Plt Count 213, MPV 10.7, Immature Gran % (Auto) 1.100 H, Neut % (Auto) 74.7 H, Lymph % (Auto) 14.5 L, [place] % (Auto) 8.5, Eos % (Auto) 0.4, Baso % (Auto) 0.8, Absolute Neuts (auto) 14.1 H, Absolute Lymphs (auto) 2.75, Nucleated RBC % 0, Diff Path Review November05/22/21 08:00: Sodium 142, Potassium 3.4 L, Chloride 112 H, Carbon Dioxide 25.0, Anion Gap 5, BUN 12, Creatinine 0.54 L, Estim Creat Clear Calc 90.91, Est GFR (MDRD) Af Amer 151, Est GFR (MDRD) Non-Af 125, BUN/Creatinine Ratio 22.4 H, Glucose 136 H, Calcium 8.4 L Micro: Microbiology 05/20/21 13:09 Blood Culture (Wb) - Left Hand Blood Culture - Preliminary No growth in 48 hours. 05/20/21 12:58 Blood Culture (Wb) - Left Forearm Blood Culture - Preliminary No growth in 48 hours. 05/20/21 13:00 Nasal Secretion SARS-CoV-2 Antigen (Rapid) - Final Physical Exam Const alert and no apparent distress Constitutional Narrative: Obese middle-aged white female sitting up in bed, I was unable to get her to follow commands today, her eyes were closed but she did finally open them and was able to say her son's name although repeated this, responses slow, daughter at the bedside for the entire exam Exam Limitations: altered mental status Nutritional Appearance: obese HEENT head/scalp atraumatic and moist oral mucous membranes Head and Scalp: normocephalic Resp normal respiratory effort, no retractions, no use of accessory muscles and clear to auscultation bilaterally Auscultation: Negative for crackles, rales, rhonchi or wheezes Cardio regular rate, regular rhythm, S1 normal heart sound, S2 normal heart sound, no murmurs, no rub, no gallops, no clicks and no JVD GI normal to inspection, nondistended, normoactive bowel sounds, soft to palpation, non-tender and non-distended Extremity no clubbing, cyanosis or edema Peripheral Pulses: Yes pulses 2+ throughout Neuro CN's II-XII intact bilaterally, moves all extremities and no focal motor deficits Neuro Narrative: Unable to answer orientation questions but follows commands with delayed response, no focal deficit noted on exam, reflexes 2+, remains encephalopathic Sensorium / Orientation: awake and alert Psych Psych Narrative: Unable to assess Assessment & Plan Assessment/Plan (1) Toxic encephalopathy: (2) Fever: (3) Rhabdomyolysis: (4) History of drug overdose: (5) Anxiety and depression: PLAN: Toxic encephalopathy secondary to suspected intentional overdose -Patient had an empty bottle of Lyrica and Benadryl at her side when she was found -EEG was performed and showed moderate to severe background slowing suggestive of diffuse cerebral dysfunction consistent with either anoxia which is not been present for the patient or toxic encephalopathy which is what I anticipate this is -Continue monitoring on PCU given overdoses -CT was performed and found old stroke but no other acute abnormalities -Obtain MRI -Continue to hold sedating medications with current encephalopathy -Will need to monitor for withdrawal once patient is more awake -Continue sitter at bedside -Tox screen is unimpressive Acute rhabdomyolysis -Continue IV fluids but decrease to 50 cc/h from 150/h -Resolved -Serum creatinine remains normal Hypokalemia -Down again a bit today -IV potassium 40 mEq ordered -Check a.m. magnesium level Leukocytosis/fever -Blood cultures are negative -Unable to obtain a sputum culture -UA is unimpressive -Continue Unasyn to treat empirically for aspiration pneumonia -PCT is negative -Covid is negative -Fever could also be due to her medication use and possible withdrawal History of seizures/pseudoseizures -Patient has been diagnosed with pseudoseizures and nonepileptiform seizures at home -Patient has been off Tegretol per family discussion today -Discontinue this medication -Continue to monitor and seizure precautions in place History of left lower extremity amputation -No current issues Depression and anxiety -History of suicide attempts in the past -Have crisis see patient when she is more stable from a mental status -Anticipate patient might need placed -Continue to hold antipsychotics/antidepressants given current mental status Obesity -BMI 38 -Complicates overall treatment, prognosis, outcome DVT prophylaxis -Continue Lovenox CODE STATUS -Full code Charges/Coding Visit Charges Inpatient E&M: 55698 Subs Hosp L2
[2021-05-22 15:37] LABS: Pathologist Review Reviewed
[2021-05-22] MEDS: 0.9% Saline Lock 10 ML Syringe IV (15:51)
[2021-05-22] MEDS: 0.9% Normal Saline 1,000 ML 50 ML IV (15:51)
--- NOTE | 2021-05-22 17:14 | NURSING ---
PT and OT notes faxed to [facility].
[2021-05-22] MEDS: Potassium Chloride 10mEq/100mL 10 MEQ/100 ML IV.SOLN. 100 MEQ IV BOLUS ×4 (17:31→20:58)
[2021-05-23] VITALS (13 sets, daily range): BP systolic 140–174; BP diastolic 72–93; PULSE 68–95; RESP 15–28; TEMP 36.4–37.7; O2SAT 93–96
[2021-05-23 06:11] LABS: Absolute Lymphocyte Count 3.43 X10^3/uL (0.83-4.51); Absolute Neutrophil Count 14.4 X10^3/uL (2.0-7.7); Basophil# 0.13 X10^3/uL; Basophil% 0.6 % (0-1); Eosinophil# 0.12 X10^3/uL; Eosinophils% 0.6 % (0-5); Hematocrit 38.6 % (37-47); Hemoglobin 12.5 g/dL (12.0-15.0); Lymphocyte # 3.43 X10^3/ul (0.83-4.51); Lymphocyte % 17.1 % (19-41); Mean Corp Hgb Conc 32.4 g/dL (32-36); Mean Corpuscular Hgb 29.1 pg (27.0-32.0); Mean Corpuscular Volume 89.8 fL (81-99); Mean Platelet Vol. 10.6 fl (6.2-12.0); Monocyte# 1.75 X10^3/uL; Monocyte% 8.7 % (0-10); NRBC Flagged by Analyzer 0 % (0-5); Neutrophil # 14.43 X10^3/uL (2.7-7.7); Neutrophil % 71.9 % (47-70); POSITIVE DIFFERENTIAL YES; Platelet Count 196 K/mm3 (150-450); RBC Distribution Width CV 13.8 % (11.6-14.6); RBC Distribution Width SD 44.9 fl (35.1-43.9); White Blood Count 20.1 K/mm3 (4.4-11.0)
[2021-05-23 06:19] LABS: Differential Indicated SCAN CRITERIA MET
[2021-05-23 06:30] LABS: Differential Comment SCANNED
[2021-05-23 06:33] LABS: Anion Gap 6 (5-15); BUN 15 mg/dL (7-18); BUN/Creat Ratio 28.9 RATIO (10-20); Calcium,Total 8.4 mg/dL (8.5-10.1); Chloride 111 mmol/L (98-107); Creatinine, Serum 0.52 mg/dL (0.55-1.02); EST Glomerular Filtration Rate 129 mL/min (>60); Est Glom Filt Rate - Afr Amer 157 mL/min (>60); Estimated Creatinine Clearance 94.41 ml/min; Glucose 127 mg/dL (74-106); Magnesium 2.4 mg/dL (1.6-2.6); Potassium 3.5 mmol/L (3.5-5.1); Sodium Level 142 mmol/L (136-145)
--- NOTE | 2021-05-23 08:07 | RAD_ITS ---
STUDY: X-RAY CHEST REASON FOR EXAM: Female, 56 years old. Toxic encephalopathy. TECHNIQUE: Single AP portable view of the chest. COMPARISON: Comparison is made with prior study dated 05/20/2021. FINDINGS: EKG electrodes are seen. The lungs are clear and expanded. There is no demonstrated pleural abnormality. Normal size heart. Normal mediastinum and ya. Normal visualized pulmonary arteries. Normal visualized aortic arch and descending thoracic aorta. There are degenerative changes of the visualized thoracic spine. Normal visualized ribs, clavicles, and shoulders. There is no demonstrated abnormality of the visualized soft tissue structures of the upper abdomen. RAD/Chest 1 View (Portable) IMPRESSION: No acute abnormality is seen. Electronically Signed: Partha Winston MD at 12:24 EST , Service support ,
[2021-05-23] MEDS: Enoxaparin 40 MG/0.4 ML Syringe SC (09:22)
[2021-05-23 09:33] LABS: Procalcitonin < 0.04 ng/mL (0.00-0.09)
[2021-05-23 10:04] LABS: Bacteria 0 SEEN /hpf (None Seen); Mucous, Urine 0 SEEN /hpf (<or=2+); Squamous Epithelial Cells - UA 0 SEEN /hpf (5-10); White Blood Cells 0 SEEN /hpf (0-5)
[2021-05-23 10:19] LABS: Color, Urine Yellow (Yellow); Glucose, Dipstick Normal (Normal); Leukocyte Esterase-Dipstick Negative /ul (Negative); Nitrite-Dipstick Negative (Negative); Occult Blood-Urine 250 /ul (Negative); Protein-Dipstick 15 mg/dl (Negative); Specific Gravity, Urine 1.015 (1.002-1.030); Urine Bilirubin Dipstick Negative (Negative); Urine Clarity Clear (Clear); Urine Urobilinogen Normal (Normal)
[2021-05-23 10:21] LABS: Ketone-Dipstick 150 mg/dl (Negative)
[2021-05-23 10:26] LABS: Red Blood Cells-Urine 10-25 SEEN /hpf (0-5)
[2021-05-23 11:20] LABS: M R Staph aureus DNA By PCR Negative (Negative); Probe Check PASS; Specimen Processing Control PASS
[2021-05-23 13:04] LABS: Pathologist Review Reviewed
--- NOTE | 2021-05-23 13:07 | PN.HOSP_ITS ---
Subjective Subjective No issues overnight. Apparently the patient was clucking like a chicken and making goat noises all night. This morning she is more awake and will interact by shaking her head yes and no but is not verbal. She was able to eat some ice cream without any problems with swallowing. Family was at the bedside and felt that she had improved in the last 24 hours as well. We discussed the results of her MRI and EEG. They tell me today she has a psychiatric history that dates back to her teens with their first knowledge of issues being when she was approximately 17 or 18 years old. They are on board with psychiatric admit once her mental status is improved enough that we can have crisis evaluate her. Objective Data Objective Data Vital Signs: Vital Signs Temp Pulse Resp BP Pulse Ox 99.9 F H 78 20 H 152/84 H 93 05/23/21 10:00 05/23/21 10:00 05/23/21 10:00 05/23/21 10:00 05/23/21 10:00 Oxygen Delivery Method Room Air Weight: 99.9 kg Body Mass Index (BMI) 37.8 Intake & Output: Intake and Output for Last 24 Hours 05/21/21 05/22/21 05/23/21 23:59 23:59 23:59 Intake Total 4193.5 / 4193.5 2928.50 / 2928.50 112 / 112 Output Total 2024 / 2024 1075 / 1075 950 / 950 Balance 2168.5 / 2168.5 1853.50 / 1853.50 -838 / -838 Lab / Micro Data Result Diagrams: 05/23/21 06:04 05/23/21 06:04 Labs: Laboratory Results - last 24 hr 05/21/21 04:19: Diff Path Review Reviewed 05/22/21 08:00: Diff Path Review Reviewed 05/23/21 06:04: WBC 20.1 H, RBC 4.30, Hgb 12.5, Hct 38.6, MCV 89.8, MCH 29.1, MCHC 32.4, RDW Std Deviation 44.9 H, RDW Coeff of Adilia 13.8, Plt Count 196, MPV 10.6, Immature Gran % (Auto) 1.100 H, Neut % (Auto) 71.9 H, Lymph % (Auto) 17.1 L, [place] % (Auto) 8.7, Eos % (Auto) 0.6, Baso % (Auto) 0.6, Absolute Neuts (auto) 14.4 H, Absolute Lymphs (auto) 3.43, Nucleated RBC % 0, Differential Comment SCANNED, Diff Path Review Reviewed 05/23/21 06:04: Sodium 142, Potassium 3.5, Chloride 111 H, Carbon Dioxide 25.0, Anion Gap 6, BUN 15, Creatinine 0.52 L, Estim Creat Clear Calc 94.41, Est GFR (MDRD) Af Amer 157, Est GFR (MDRD) Non-Af 129, BUN/Creatinine Ratio 28.9 H, Glucose 127 H, Calcium 8.4 L, Magnesium 2.4 05/23/21 08:24: Procalcitonin < 0.04 05/23/21 09:35: MRSA (PCR) Negative 05/23/21 09:50: Urine Color Yellow, Urine Clarity Clear, Urine pH 6.0, Ur Specific [place] 1.015, Urine Protein 15 H, Urine Glucose (UA) Normal, Urine Ketones 150 A*, Urine Occult Blood 250 H, Urine Nitrite Negative, Urine Bilirubin Negative, Urine Urobilinogen Normal, Ur Leukocyte Esterase Negative, Urine RBC 10-25 SEEN, Urine WBC 0 SEEN, Ur Squamous Epith Cells 0 SEEN, Urine Bacteria 0 SEEN, Urine Mucus 0 SEEN Micro: Microbiology 05/20/21 13:09 Blood Culture (Wb) - Left Hand Blood Culture - Preliminary No growth in 48 hours. 05/20/21 12:58 Blood Culture (Wb) - Left Forearm Blood Culture - Preliminary No growth in 48 hours. 05/20/21 13:00 Nasal Secretion SARS-CoV-2 Antigen (Rapid) - Final Radiography Diagnostic Testing: Radiology Impression Brain MRI 05/22/21 11:08 IMPRESSION: Old right frontal lobe infarct. There are no acute infarcts. Electronically Signed: Spencer Herrera MD at 15:23 EST , Service support , Chest X-Ray 05/23/21 08:07 IMPRESSION: No acute abnormality is seen. Electronically Signed: Partha Winston MD at 12:24 EST , Service support , Physical Exam Const alert and no apparent distress Constitutional Narrative: Obese middle-aged white female sitting up in bed, I was able to get her to interact today by shaking her head and nodding, appears comfortable nontoxic, family at bedside Exam Limitations: altered mental status Nutritional Appearance: obese HEENT head/scalp atraumatic and moist oral mucous membranes Head and Scalp: normocephalic Resp normal respiratory effort, no retractions, no use of accessory muscles and clear to auscultation bilaterally Auscultation: Negative for crackles, rales, rhonchi or wheezes Cardio regular rate, regular rhythm, S1 normal heart sound, S2 normal heart sound, no murmurs, no rub, no gallops, no clicks and no JVD GI normal to inspection, nondistended, normoactive bowel sounds, soft to palpation, non-tender and non-distended Extremity no clubbing, cyanosis or edema Extremity Narrative: Left lower extremity amputation Peripheral Pulses: Yes pulses 2+ throughout Skin no rashes or lesions noted, no wounds, skin turgor normal, no jaundice, no petechiae and no mottling Neuro CN's II-XII intact bilaterally, moves all extremities and no focal motor deficits Neuro Narrative: Answered all questions by shaking head today, will not consistently follow commands but intermittently follows commands Sensorium / Orientation: awake and alert Psych Psych Narrative: Unable to assess Assessment & Plan Assessment/Plan (1) Toxic encephalopathy: (2) Fever: (3) Rhabdomyolysis: (4) History of drug overdose: (5) Anxiety and depression: PLAN: Toxic encephalopathy secondary to suspected intentional overdose -Patient had an empty bottle of Lyrica and Benadryl at her side when she was found -EEG was performed and showed moderate to severe background slowing suggestive of diffuse cerebral dysfunction consistent with either anoxia which is not been present for the patient or toxic encephalopathy which is what I anticipate this is -Continue monitoring on PCU given overdoses -CT was performed and found old stroke but no other acute abnormalities -MRI was negative except for old stroke that was noted on CT -Continue to hold sedating medications with current encephalopathy -Will need to monitor for withdrawal once patient is more awake -Continue sitter at bedside -Tox screen is unimpressive -Unclear if behavior today is related to encephalopathy or if this is all behavioral in nature at this time -Plan for crisis evaluation once patient is more participatory on a consistent basis -Was able to eat ice cream without any difficulty this morning -Discussed results with daughter and 2 sons via FaceTime today and all questions answered -Family is on board with psychiatric evaluation and placement Acute rhabdomyolysis -Resolved Hypokalemia -Down again a bit today -IV potassium 40 mEq ordered -Check a.m. magnesium level Leukocytosis/fever -Blood cultures are negative from admission -Unable to obtain a sputum culture -UA was repeated and remains unimpressive -Procalcitonin is negative -Antimicrobials broadened to Vanco and Zosyn at this time -If all cultures remain negative will revert back to Unasyn tomorrow -Hest x-ray shows no infiltrate -Covid is negative -Fever and leukocytosis could also be due to her overdose with Benadryl and possible withdrawal History of seizures/pseudoseizures -Patient has been diagnosed with pseudoseizures and nonepileptiform seizures at home -Patient has been off Tegretol per family discussion today -Continue to monitor and seizure precautions in place History of left lower extremity amputation -No current issues Depression and anxiety -History of suicide attempts in the past -Have crisis see patient when she is more stable from a mental status -Anticipate patient might need placed -Continue to hold antipsychotics/antidepressants given current mental status Obesity -BMI 38 -Complicates overall treatment, prognosis, outcome DVT prophylaxis -Continue Lovenox CODE STATUS -Full code Charges/Coding Visit Charges Inpatient E&M: 29769 Subs Hosp L2
--- NOTE | 2021-05-23 13:52 | PCM.RX.CS ---
Consult Pharmacy has been consulted to manage selected antiobiotic: Vancomycin Suspected Infection: Pneumonia Prior Doses of Antibiotics Received/Current Regimen: 1500mg iv x 1 initial dose. Labs: Sodium 142 mmol/L (136-145) 05/23/21 06:04 Potassium 3.5 mmol/L (3.5-5.1) 05/23/21 06:04 Chloride 111 mmol/L (98-107) H 05/23/21 06:04 Carbon Dioxide 25.0 mmol/L (21.0-32.0) 05/23/21 06:04 Anion Gap 6 (5-15) 05/23/21 06:04 BUN 15 mg/dL (7-18) 05/23/21 06:04 Creatinine 0.52 mg/dL (0.55-1.02) L 05/23/21 06:04 Est GFR (MDRD) Af Amer 157 mL/min (>60) 05/23/21 06:04 Est GFR (MDRD) Non-Af 129 mL/min (>60) 05/23/21 06:04 BUN/Creatinine Ratio 28.9 RATIO (10-20) H 05/23/21 06:04 Glucose 127 mg/dL (74-106) H 05/23/21 06:04 Microbiology: Microbiology 05/20/21 13:09 Blood Culture (Wb) - Left Hand Blood Culture - Preliminary No growth in 48 hours. 05/20/21 12:58 Blood Culture (Wb) - Left Forearm Blood Culture - Preliminary No growth in 48 hours. 05/20/21 13:00 Nasal Secretion SARS-CoV-2 Antigen (Rapid) - Final Weight used for dosin.9 kg Estimated Creatinine Clearance: 94 ml/min Goal Trough: 15-20 mcg/mL Pharmacy Plan for Drug Dosing: Will begin dosing of 2000mg iv q12 per protocol. Trough level ordered for 05.25.21 before 4th total dose. Pharmacy Service will continue to monitor and adjust dosing as required. Follow-Up Labs: Trough Vancomycin - 05.25.21 @0130 before 0200 dose
[2021-05-23] MEDS: Acetaminophen 325 MG Tablet 650 MG PO (14:21)
[2021-05-23] MEDS: 0.9% Normal Saline 1,000 ML 50 ML IV (14:22)
[2021-05-23 15:07] LABS: Cholesterol 183 mg/dL (200); High Density Lipoprotein 29 mg/dL; Triglycerides 105 mg/dL; Very Low Density Lipoprotein 21 mg/dL (5-40)
--- NOTE | 2021-05-23 17:08 | NURSING ---
This RN into room to get pt VS. Pt easily awakened, alert and having clear conversation. Asking questions regarding where she is, stating that she is very thirsty, and talking about TV show that is on. Re-oriented pt to situation, time and place. Able to state birthday. Dinner ordered and drink provided. Pt able to hold cup and drink through straw without difficulty. Still has some repetition of phrases , I'm very thirsty.
--- NOTE | 2021-05-23 17:51 | NURSING ---
Called placed to Alison, daughter, to obtain verbal consent for midline placement. blind teacherRICHARD Womack provided risks/benefits. Alison gave verbal consent to midline placement to this RN and blind teacherRICHARD Womack.
--- NOTE | 2021-05-23 22:05 | NURSING ---
Crushed coreg and put in ice cream. Pt spit it out and refused to swallow the meds.
[2021-05-23] MEDS: Labetalol (Prefilled) 20 MG/4 ML 10 MG IV (22:16)
[2021-05-24] VITALS (10 sets, daily range): BP systolic 149–164; BP diastolic 71–91; PULSE 64–77; RESP 15–17; TEMP 36.3–37.1; O2SAT 92–96
[2021-05-24] MEDS: Labetalol (Prefilled) 20 MG/4 ML 10 MG IV (04:58)
[2021-05-24 06:47] LABS: Absolute Lymphocyte Count 3.12 X10^3/uL (0.83-4.51); Absolute Neutrophil Count 12.1 X10^3/uL (2.0-7.7); Basophil# 0.11 X10^3/uL; Basophil% 0.6 % (0-1); Eosinophil# 0.45 X10^3/uL; Eosinophils% 2.6 % (0-5); Hematocrit 37.4 % (37-47); Hemoglobin 12.1 g/dL (12.0-15.0); Lymphocyte # 3.12 X10^3/ul (0.83-4.51); Lymphocyte % 17.9 % (19-41); Mean Corp Hgb Conc 32.4 g/dL (32-36); Mean Corpuscular Hgb 28.9 pg (27.0-32.0); Mean Corpuscular Volume 89.3 fL (81-99); Mean Platelet Vol. 11.4 fl (6.2-12.0); Monocyte# 1.48 X10^3/uL; Monocyte% 8.5 % (0-10); NRBC Flagged by Analyzer 0 % (0-5); Neutrophil # 12.11 X10^3/uL (2.7-7.7); Neutrophil % 69.5 % (47-70); Platelet Count 219 K/mm3 (150-450); RBC Distribution Width CV 13.4 % (11.6-14.6); RBC Distribution Width SD 43.7 fl (35.1-43.9); Red Blood Count 4.19 M/mm3 (4.2-5.4); White Blood Count 17.4 K/mm3 (4.4-11.0)
[2021-05-24 07:24] LABS: Anion Gap 6 (5-15); BUN 13 mg/dL (7-18); BUN/Creat Ratio 26.4 RATIO (10-20); Calcium,Total 8.4 mg/dL (8.5-10.1); Chloride 110 mmol/L (98-107); Creatinine, Serum 0.49 mg/dL (0.55-1.02); EST Glomerular Filtration Rate 137 mL/min (>60); Est Glom Filt Rate - Afr Amer 166 mL/min (>60); Estimated Creatinine Clearance 100.19 ml/min; Glucose 120 mg/dL (74-106); Potassium 3.2 mmol/L (3.5-5.1); Sodium Level 141 mmol/L (136-145)
[2021-05-24] MEDS: Thiamine Hydrochloride 100 MG Tablet 200 MG PO (09:08)
[2021-05-24] MEDS: Carvedilol 6.25 MG Tablet PO ×2 (09:08→22:19)
[2021-05-24] MEDS: amLODIPine 5 MG Tablet PO (09:08)
[2021-05-24] MEDS: Aspirin 81 MG TAB.CHEW PO (09:08)
[2021-05-24] MEDS: Potassium Chloride Oral Soln 20 MEQ/15 ML UDC 40 MEQ PO ×2 (09:08→16:55)
[2021-05-24] MEDS: Folic Acid 1 MG Tablet PO (09:08)
[2021-05-24] MEDS: Enoxaparin 40 MG/0.4 ML Syringe SC (09:09)
[2021-05-24] MEDS: 0.9% Normal Saline 1,000 ML 50 ML IV (09:19)
--- NOTE | 2021-05-24 13:55 | RAD_ITS ---
EXAM: XR ABDOMEN, 1 VIEW CLINICAL INDICATION: nausea TECHNIQUE: Frontal supine view of the abdomen/pelvis. This report was created using [employer] report generation technology. COMPARISON: None. FINDINGS: LOWER THORAX: No acute pathology. GASTROINTESTINAL TRACT: Unremarkable. Non-obstructive. No bowel or stomach distention. ORGANS: There are multiple metallic clips in the right upper quadrant. This is consistent for a cholecystectomy. No organomegaly. No abnormal calcifications. BONES/JOINTS: Absent left femur. Degenerative findings in the lumbar spine. SOFT TISSUES: No acute pathology. RAD/Abdomen Single View IMPRESSION: Absent left femur. Electronically Signed: Spencer Herrera MD at 16:55 EST , Service support ,
--- NOTE | 2021-05-24 14:58 | PN.HOSP_ITS ---
Subjective Subjective Patient has been much more awake in the last 12 to 18 hours. She was very talkative overnight per the sitter and nursing staff. Patient was very talkative with me today and was able to accurately give me some information although some other information that we discussed with regards to current events was completely inaccurate. Thoughts were tangential and not fluid. She intermittently makes sense but intermittently makes no sense at all. She has had some emesis but currently is not complaining of any abdominal pain. Objective Data Objective Data Vital Signs: Vital Signs Temp Pulse Resp BP Pulse Ox 97.3 F L 65 16 152/71 H 92 05/24/21 10:30 05/24/21 10:30 05/24/21 10:30 05/24/21 10:30 05/24/21 10:30 Oxygen Delivery Method Room Air Weight: 101.5 kg Body Mass Index (BMI) 37.8 Intake & Output: Intake and Output for Last 24 Hours 05/22/21 05/23/21 05/24/21 23:59 23:59 23:59 Intake Total 2928.50 / 2928.50 1600.33 / 1600.33 1587.5 / 1587.5 Output Total 1075 / 1075 1200 / 1800 1000 / 1000 Balance 1853.50 / 1853.50 400.33 / -199.67 587.5 / 587.5 Lab / Micro Data Result Diagrams: 05/24/21 06:14 05/24/21 06:14 Labs: Laboratory Results - last 24 hr 05/23/21 06:04: Triglycerides 105, Cholesterol 183, LDL Cholesterol 133 H, VLDL Cholesterol 21, HDL Cholesterol 29 L 05/24/21 06:14: WBC 17.4 H, RBC 4.19 L, Hgb 12.1, Hct 37.4, MCV 89.3, MCH 28.9, MCHC 32.4, RDW Std Deviation 43.7, RDW Coeff of Adilia 13.4, Plt Count 219, MPV 11.4, Immature Gran % (Auto) 0.900, Neut % (Auto) 69.5, Lymph % (Auto) 17.9 L, [place] % (Auto) 8.5, Eos % (Auto) 2.6, Baso % (Auto) 0.6, Absolute Neuts (auto) 12.1 H, Absolute Lymphs (auto) 3.12, Nucleated RBC % 0 05/24/21 06:14: Sodium 141, Potassium 3.2 L, Chloride 110 H, Carbon Dioxide 25.0, Anion Gap 6, BUN 13, Creatinine 0.49 L, Estim Creat Clear Calc 100.19, Est GFR (MDRD) Af Amer 166, Est GFR (MDRD) Non-Af 137, BUN/Creatinine Ratio 26.4 H, Glucose 120 H, Calcium 8.4 L Micro: Microbiology 05/20/21 13:09 Blood Culture (Wb) - Left Hand Blood Culture - Preliminary No growth in 48 hours. 05/20/21 12:58 Blood Culture (Wb) - Left Forearm Blood Culture - Preliminary No growth in 48 hours. 05/20/21 13:00 Nasal Secretion SARS-CoV-2 Antigen (Rapid) - Final Physical Exam Const alert and no apparent distress Constitutional Narrative: Obese middle-aged white female sitting up in bed, patient was very talkative today and had somewhat of a tangential thought process at times but other times is able to give me accurate information, nontoxic and appears comfortable at this time, speech was very childlike Exam Limitations: behavioral limitations and other limitations Nutritional Appearance: obese HEENT head/scalp atraumatic and moist oral mucous membranes Head and Scalp: normocephalic Resp normal respiratory effort, no retractions, no use of accessory muscles and clear to auscultation bilaterally Auscultation: Negative for crackles, rales, rhonchi or wheezes Cardio regular rate, regular rhythm, S1 normal heart sound, S2 normal heart sound, no murmurs, no rub, no gallops, no clicks and no JVD GI normal to inspection, nondistended, normoactive bowel sounds, soft to palpation, non-tender and non-distended Extremity no clubbing, cyanosis or edema Extremity Narrative: Left lower extremity amputation Peripheral Pulses: Yes pulses 2+ throughout Skin no rashes or lesions noted, no wounds, skin turgor normal, no jaundice, no petechiae and no mottling Neuro CN's II-XII intact bilaterally, moves all extremities and no focal motor deficits Neuro Narrative: Patient consistently follow commands today still oriented only to self but was aware she was in the hospital Sensorium / Orientation: awake and alert Psych Psych Narrative: Affect is very odd, speech is very childlike, thoughts are very tangential and patient seems to have flight of ideas Assessment & Plan Assessment/Plan (1) Toxic encephalopathy: (2) Fever: (3) Rhabdomyolysis: (4) History of drug overdose: (5) Anxiety and depression: PLAN: Toxic encephalopathy secondary to suspected intentional overdose -Patient had an empty bottle of Lyrica and Benadryl at her side when she was found -EEG was performed and showed moderate to severe background slowing suggestive of diffuse cerebral dysfunction consistent with either anoxia which is not been present for the patient or toxic encephalopathy which is what I anticipate this is -Continue monitoring on PCU given overdoses -CT was performed and found old stroke but no other acute abnormalities -MRI was negative except for old stroke that was noted on CT -Continue to hold sedating medications with current encephalopathy -No signs of substance withdrawal -Continue sitter at bedside -Tox screen is unimpressive -Unclear if behavior is related to encephalopathy or if this is all behavioral in nature at this time -Crisis evaluation today as patient is more awake and conversive Nausea and vomiting -Patient has been spitting out/vomiting pills and did have true emesis -No current complaints of nausea or abdominal pain -Zofran as ordered and it appears based on her allergy history that she may have a history of nausea as there are allergies to Reglan Compazine and Phenergan -If persistent despite Zofran could trial Haldol -This may be beneficial in more than 1 way -KUB is pending Hypokalemia -Down again a bit today -Oral liquid potassium 40 mEq Leukocytosis/fever -Temperatures have normalized -Leukocytosis is trending down -Cultures remain negative -Chest x-ray without infiltrate -Procalcitonin is normal -We will narrow antibiotics to Unasyn and complete a 7-day course for empiric aspiration coverage given presentation -Day 3 of 5 History of seizures/pseudoseizures -Patient has been diagnosed with pseudoseizures and nonepileptiform seizures at home -Patient has been off Tegretol per family discussion today -Continue to monitor and seizure precautions in place History of left lower extremity amputation -No current issues Depression and anxiety -History of suicide attempts in the past -Crisis to evaluate the patient today -Continue to hold antipsychotics/antidepressants given current mental status Obesity -BMI 38 -Complicates overall treatment, prognosis, outcome DVT prophylaxis -Continue Lovenox CODE STATUS -Full code Charges/Coding Visit Charges Inpatient E&M: 73407 Subs Hosp L2
[2021-05-24] MEDS: Acetaminophen 325 MG Tablet 650 MG PO (22:22)
[2021-05-24] MEDS: Potassium Chloride 10mEq/100mL 10 MEQ/100 ML IV.SOLN. 100 MEQ IV BOLUS (23:21)
[2021-05-25] VITALS (8 sets, daily range): BP systolic 136–163; BP diastolic 79–82; PULSE 57–66; RESP 14–16; TEMP 36–36.6; O2SAT 94–99
--- NOTE | 2021-05-25 00:23 | NURSING ---
Rec'd phone call from counseling center reporting that pt is pending placement at [facility] in [place], and that referral was sent to [facility], and they would like a tox screen and covid test sent to them. Pt has tox screen completed in chart, will notify MD and request order for COVID test. RICHARD Feldman [facility]
[2021-05-25] MEDS: Potassium Chloride 10mEq/100mL 10 MEQ/100 ML IV.SOLN. 100 MEQ IV BOLUS ×6 (00:34→13:10)
[2021-05-25 01:56] LABS: Absolute Lymphocyte Count 3.38 X10^3/uL (0.83-4.51); Absolute Neutrophil Count 10.9 X10^3/uL (2.0-7.7); Basophil% 0.6 % (0-1); Eosinophil# 0.67 X10^3/uL; Hematocrit 37.1 % (37-47); Hemoglobin 12.2 g/dL (12.0-15.0); Lymphocyte # 3.38 X10^3/ul (0.83-4.51); Lymphocyte % 20.3 % (19-41); Mean Corp Hgb Conc 32.9 g/dL (32-36); Mean Corpuscular Hgb 29.1 pg (27.0-32.0); Mean Corpuscular Volume 88.5 fL (81-99); Mean Platelet Vol. 10.8 fl (6.2-12.0); Monocyte# 1.54 X10^3/uL; Monocyte% 9.2 % (0-10); NRBC Flagged by Analyzer 0 % (0-5); Neutrophil # 10.86 X10^3/uL (2.7-7.7); Neutrophil % 65.2 % (47-70); POSITIVE DIFFERENTIAL YES; Platelet Count 212 K/mm3 (150-450); RBC Distribution Width CV 13.3 % (11.6-14.6); Red Blood Count 4.19 M/mm3 (4.2-5.4); White Blood Count 16.7 K/mm3 (4.4-11.0)
[2021-05-25 01:58] LABS: Differential Indicated SCAN CRITERIA MET
[2021-05-25 02:10] LABS: Anion Gap 6 (5-15); BUN 11 mg/dL (7-18); BUN/Creat Ratio 27.1 RATIO (10-20); Calcium,Total 8.6 mg/dL (8.5-10.1); Chloride 107 mmol/L (98-107); Creatinine, Serum 0.41 mg/dL (0.55-1.02); EST Glomerular Filtration Rate 172 mL/min (>60); Est Glom Filt Rate - Afr Amer 208 mL/min (>60); Estimated Creatinine Clearance 119.73 ml/min; Glucose 108 mg/dL (74-106); Potassium 3.3 mmol/L (3.5-5.1); Sodium Level 139 mmol/L (136-145)
[2021-05-25 02:12] LABS: Vancomycin, Trough Level 14.2 ug/mL (5.0-15.0)
[2021-05-25 02:54] LABS: Differential Comment SCANNED
[2021-05-25] MEDS: 0.9% Normal Saline 1,000 ML 50 ML IV (04:10)
[2021-05-25] MEDS: Acetaminophen 325 MG Tablet 650 MG PO (04:13)
--- NOTE | 2021-05-25 06:47 | NURSING ---
Crisis called regarding potential acceptance at [facility]. Once pt is medically cleared, a pink slip and medical clearance information needs to be faxed to [facility] and then they will proceed w/ a likely bed assignment there.
[2021-05-25] MEDS: Potassium Chloride Oral Soln 20 MEQ/15 ML UDC 40 MEQ PO (09:21)
[2021-05-25] MEDS: Aspirin 81 MG TAB.CHEW PO (09:21)
[2021-05-25] MEDS: Folic Acid 1 MG Tablet PO (09:21)
[2021-05-25] MEDS: Enoxaparin 40 MG/0.4 ML Syringe SC (09:21)
[2021-05-25] MEDS: Thiamine Hydrochloride 100 MG Tablet 200 MG PO (09:21)
[2021-05-25] MEDS: Carvedilol 6.25 MG Tablet PO (09:21)
[2021-05-25 09:27] LABS: Magnesium 2.3 mg/dL (1.6-2.6)
[2021-05-25] MEDS: amLODIPine 10 MG Tablet PO (09:27)
--- NOTE | 2021-05-25 13:30 | NURSING ---
report called to Jaun from [facility]. Bruce made aware of patients level of care and that patient is a 2 assist stand pivot to chair due to having above left knee amputation.
--- NOTE | 2021-05-25 13:39 | DS.PCM_ITS ---
Providers Date of Admission: 05/20/21 Primary Care Physician: Dr. Harshad Karimi MD Reason For Visit: TOXIC ENCEPHALOPATHY Diagnosis Discharge Diagnosis (1) Toxic encephalopathy: Status: Acute Code(s): G92.9 - Unspecified toxic encephalopathy (2) Fever: Status: Acute Code(s): R50.9 - Fever, unspecified (3) Rhabdomyolysis: Status: Acute Code(s): M62.82 - Rhabdomyolysis (4) History of drug overdose: Status: Acute Code(s): Z91.89 - Other specified personal risk factors, not elsewhere classified (5) Anxiety and depression: Status: Chronic Code(s): F41.9 - Anxiety disorder, unspecified; F32.9 - Major depressive disorder, single episode, unspecified Medications at Discharge Home Medications [id number]-ffm-PR-Uh-Wl-ehdqnmj-lutein [Centravites] 1 ea PO DAILY 02/05/14 acetaminophen 1,000 mg PO DAILY PRN PRN 05/20/18 ascorbic acid (vitamin C) [Vitamin C] 1,000 mg PO DAILY 05/20/18 aspirin 81 mg PO DAILY 05/20/18 amlodipine 10 mg PO DAILY #0 tab 05/25/21 amoxicillin-pot clavulanate [Augmentin ES-600] 5 ml PO BID 1 Days #10 ml 05/25/21 aspirin 81 mg PO BREAKFAST #0 tab 05/25/21 carvedilol 6.25 mg PO BID #0 tab 05/25/21 Hospital Course Operations None Procedures Electroencephalogram and - (EEG/CT of the head/MRI) Summary of Care Provided Minutes Spent on Discharge: 45 Hospital Course: is a 56-year white female who presented to the emergency department at [facility] on 05/20/2021 for acute onset altered mental status. She evidently was found by her family stuck on the [place] [address] oilet. It was suspected that she overdosed on medications as empty pill bottles of Benadryl and Lyrica were found at her side but were indeed empty. She was subsequently brought to the emergency department but could not reliably give any history on admission. The only response she would give in the ED was I am . She was found to have an elevated lactic acid but no infectious etiology was noted. She also had an elevated CPK at 708. CT of her head was performed on admission and showed no acute bleed, ischemic change or acute intracranial abnormality but did show an old ischemic infarct with cystic encephalomalacia in the right anterior perifrontal horn white matter that had been present at least since November of this past year. She has a normal CT of her brain from 07/22/2018 that did not show this at that time. This is evidently an unknown finding to family and she has no history of stroke diagnosis. Given her clinical presentation she was admitted to the ICU. On the day after admission her mental status seems to be slightly improved and she would follow commands intermitten tly. She had some mild fevers with a T-max of approximately 100.7 and she was pancultured and placed on empiric Unasyn for concern of possible aspiration given mental status depression on admission. All cultures were negative. Her lactic acid doses resolved and her CK trended down. Her renal function remained normal throughout her hospitalization. An EEG was performed and showed diffuse slowing consistent with toxic/metabolic encephalopathy versus anoxia. She had no anoxic event so it was anticipated that this was related to her drug overdose. On the third day of her hospitalization her mental status was more depressed and her family was at bedside. She evidently has had longstanding psychiatric issues that date back to when she was approximately 17 to 18 years old as well as issues with chronic pain. She has had multiple issues with suicide attempts and accidental overdoses with her pain medication. She did undergo a left hip disorder take in the past and complains of apparently a long ongoing phantom pain related to this. Given her persistent mental status depression an MRI was performed and showed no acute changes and demonstrated the previous stroke noted on the CT on admission. Her mental status slowly improved by the a.m. of 05/24/2021 she was able to interact appropriately enough that crisis was consulted. Upon exam [facility] and she was cleared for discharge on 05/25/2021. She was discharged to [facility] for further psychiatric care. During her hospitalization she had some mild electrolyte abnormalities most notably hypokalemia for which her potassium was replaced. Her magnesium level was normal throughout her stay. She is to complete a course of antibiotics for possible aspiration and has 1 more dose to complete on 05/26/2021. Her blood pressure was elevated throughout her stay and she was initiated on amlodipine 10 mg daily and Coreg 6.25 mg twice daily. This regimen did improve her blood pressure control. Given the abnormal findings on her CT and MRI indicating previous stroke blood pressure control will be imperative. Lipids were performed and found to be normal and she was therefore not started on a statin. She was also discharged on a baby aspirin daily. She was discharged to inpatient psychiatric unit on 05/25/2021 in stable condition. Discharge diagnoses: Toxic encephalopathy secondary to overdose of Lyrica and Benadryl-resolved Intentional overdose Hypokalemia-resolved History of stroke Hypertension Aspiration pneumonia History of pseudoseizures History of left lower extremity amputation Depression Anxiety Obesity Physical Exam Const alert and no apparent distress Constitutional Narrative: Obese middle-aged white female lying in bed, patient affect was normal today, her thought process was streamlined, she was oriented to self, place, month and year. 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 [employer], very agreeable today General Appearance: cooperative, comfortable, well kempt and well developed Orientation / Consciousness: awake, oriented to person, oriented to place and oriented to time Exam Limitations: behavioral limitations and other limitations Nutritional Appearance: obese HEENT normocephalic, head/scalp atraumatic, hearing grossly normal bilaterally and moist oral mucous membranes HEENT Narrative: Mallampati 3, no thrush, dentition good Eyes PERRL, EOMs intact bilaterally and conjunctivae normal Eyes Narrative: No scleral icterus Neck no lymphadenopathy, supple and no JVD Neck Narrative: Trachea midline, short thick neck Resp normal respiratory effort, no retractions, no use of accessory muscles and clear to auscultation bilaterally Auscultation: Negative for crackles, rales, rhonchi or wheezes Cardio regular rate, regular rhythm, S1 normal heart sound, S2 normal heart sound, no murmurs, no rub, no gallops, no clicks and no JVD GI normal to inspection, nondistended, normoactive bowel sounds, soft to palpation, non-tender and non-distended Extremity no clubbing, cyanosis or edema Extremity Narrative: Left lower extremity amputation Skin no rashes or lesions noted, no wounds, skin turgor normal, no jaundice, no petechiae and no mottling Neuro CN's II-XII intact bilaterally, moves all extremities and no focal motor deficits Sensorium / Orientation: awake, alert, oriented to person, oriented to place and oriented to time Speech: speech normal Psych Psych Narrative: Patient was much more appropriate today, childlike speech is resolved, thought process is more streamlined and patient is in agreement with the current plan Weight / BMI Weight Weight: 99.5 kg Body Mass Index (BMI) 37.8 ABG / Lab / Microbiology Data Result Diagrams: 05/25/21 01:40 05/25/21 01:40 Laboratory: Laboratory Results - last 24 hr 05/25/21 01:40: Vancomycin Trough 14.2 05/25/21 01:40: WBC 16.7 H, RBC 4.19 L, Hgb 12.2, Hct 37.1, MCV 88.5, MCH 29.1, MCHC 32.9, RDW Std Deviation 43.0, RDW Coeff of Adilia 13.3, Plt Count 212, MPV 10.8, Immature Gran % (Auto) 0.700, Neut % (Auto) 65.2, Lymph % (Auto) 20.3, [place] % (Auto) 9.2, Eos % (Auto) 4.0, Baso % (Auto) 0.6, Absolute Neuts (auto) 10.9 H, Absolute Lymphs (auto) 3.38, Nucleated RBC % 0, Differential Comment SCANNED, Diff Path Review November05/25/21 01:40: Sodium 139, Potassium 3.3 L, Chloride 107, Carbon Dioxide 26.0, Anion Gap 6, BUN 11, Creatinine 0.41 L, Estim Creat Clear Calc 119.73, Est GFR (MDRD) Af Amer 208, Est GFR (MDRD) Non-Af 172, BUN/Creatinine Ratio 27.1 H, Glucose 108 H, Calcium 8.6 05/25/21 01:40: Magnesium 2.3 Microbiology: Microbiology 05/20/21 13:09 Blood Culture (Wb) - Left Hand Blood Culture - Preliminary No growth in 48 hours. 05/20/21 12:58 Blood Culture (Wb) - Left Forearm Blood Culture - Preliminary No growth in 48 hours. 05/20/21 13:00 Nasal Secretion SARS-CoV-2 Antigen (Rapid) - Final Radiography Diagnostic Testing: Radiology Impression KUB X-Ray 05/24/21 13:55 IMPRESSION: Absent left femur. Electronically Signed: Spencer Herrera MD at 16:55 EST , Service support , D/C Instructions Discharge Diet: Low fat / Low cholesterol Meaningful Use Info Meaningful Use Diagnoses (Choose all that apply): None applicable Discharge Plan Admission Admit Date/Time: 05/20/21 14:11 Primary Reason for Your Visit: Toxic encephalopathy secondary to intentional overdose Attending Provider: Emma Muhammad Primary Care Provider: Harshad Karimi Discharge Orders/Prescriptions Prescriptions: New amlodipine 10 mg Tablet 10 mg PO DAILY Qty: 0 RF: 0 amoxicillin-pot clavulanate [Augmentin ES-600] 600-42.9 mg/5 mL suspension for reconstitution 5 ml PO BID 1 Days Qty: 10 RF: 0 carvedilol 6.25 mg Tablet 6.25 mg PO BID Qty: 0 RF: 0 aspirin 81 mg Tablet,Chewable 81 mg PO BREAKFAST Qty: 0 RF: 0 Continued sx-pbe-XA-Yi-Ws-ufpibtq-lutein [Centravites] 1 EACH tablet 1 ea PO DAILY RF: 0 aspirin 81 MG tablet 81 mg PO DAILY RF: 0 acetaminophen 500 MG tablet 1,000 mg PO DAILY PRN PRN (Reason: Fever) RF: 0 ascorbic acid (vitamin C) [Vitamin C] 500 MG tablet 1,000 mg PO DAILY RF: 0 Discontinued pregabalin [Lyrica] 150 MG capsule 150 mg PO TID PRN (Reason: Pain) RF: 0 buprenorphine HCl 8 MG tablet, sublingual 36 mg sublingual DAILY RF: 0 duloxetine 60 MG capsule 60 mg PO DAILY@0800 RF: 0 quetiapine 300 MG tablet extended release 24 hr 300 mg PO QHS RF: 0 baclofen 10 MG tablet 10 mg PO Q6H PRN PRN (Reason: Pain) RF: 0 duloxetine 30 MG capsule,delayed release(DR/EC) 30 mg PO QHS RF: 0 carbamazepine 400 MG tablet extended release 12 hr 400 mg PO DAILY Qty: 30 RF: 0 sulfamethoxazole-trimethoprim 1 TABLET tablet 1 tab PO BID Qty: 10 RF: 0 hydrocodone-acetaminophen [hydrocodone-acetaminophen] 1 TABLET tablet 1 tab PO Q6H PRN PRN (Reason: Pain) 3 Days Qty: 10 RF: 0 quetiapine 200 mg tablet 200 mg PO DAILY RF: 0 Referrals / Follow Up: Ranney,Harshad, MD [Primary Care Provider] - Within 1 Month Disposition Disposition (needs filled in before D/C Order can be placed): [facility] Charges/Coding Visit Charges Inpatient E&M: 47045 Disch Hosp
[2021-05-25 14:21] LABS: Pathologist Review Reviewed
--- NOTE | 2021-05-25 17:28 | NURSING ---
Leticia from [facility] called regarding [facility] not accepting patient upon arrival to facility d/t patient not able to care for herself independently. Crisis notified and to call facility regarding transfer.
--- NOTE | 2021-05-25 18:13 | NURSING ---
Crisis called and is awaiting call back from a director from [facility], to keep us informed.
--- NOTE | 2021-05-25 18:58 | NURSING ---
Crisis just called from the [facility]. I spoke to Candi over the phone. They called at [phone]. She notified me that patient will be staying at [facility]. They are going to be admitting her on a [facility] floor instead of the adult unit. She asked if we would called the POA and let her know of the change.
== END 2021-05-25 15:18 | DRG 917 ==
LOC: ED 13:59 → ICU 14:21 → PCU 05-21 15:22
PROVIDERS: Nurse Practitioner Family; Admitting Provider Internal Medicine; Emergency Provider Emergency Medicine; PCP Family Medicine; Visit Provider Internal Medicine
DX: T42.6X2A Poisoning by other antiepileptic and sedative-hypnotic drugs, intentional self-harm, initial encounter (principal); G92.8 Other toxic encephalopathy; J69.0 Pneumonitis due to inhalation of food and vomit; M62.82 Rhabdomyolysis; E87.2 Acidosis; T45.0X2A Poisoning by antiallergic and antiemetic drugs, intentional self-harm, initial encounter; E87.6 Hypokalemia; I10 Essential (primary) hypertension; F32.A Depression, unspecified; F41.9 Anxiety disorder, unspecified; E66.9 Obesity, unspecified; Z86.73 Personal history of transient ischemic attack (TIA), and cerebral infarction without residual deficits; R56.9 Unspecified convulsions; Z89.612 Acquired absence of left leg above knee; Z99.3 Dependence on wheelchair; Z79.899 Other long term (current) drug therapy; Z68.30 Body mass index [BMI] 30.0-30.9, adult; R11.2 Nausea with vomiting, unspecified; Z91.51 Personal history of suicidal behavior
CPT/HCPCS: 36415; 70450; 70551; 71045; 74018; 80048; 80053; 80061; 80076; 80156; 80202; 80307; 80329; 81001; 82077; 82550; 82746; 83605; 83735; 84100; 84145; 85025; 85610; 85730; 87040; 87426; 87641; 93005; 95819; 97163; 97167; 97530; 99285; J7030; J7040; A4216; G0480; J0295

== ENCOUNTER 2021-07-12 11:35 | Emergency (ER) | payer OTHER, SELFPAY ==
[2021-07-12 11:37] VITALS: BP 112/71; PULSE 82; RESP 18; TEMP 36.8; O2SAT 93; BMI 38.3
[2021-07-12 11:39] VITALS: BP 112/71; PULSE 82; RESP 18; TEMP 36.8; O2SAT 94
--- NOTE | 2021-07-12 12:06 | VDLE_ITS ---
Reason For Study: PAIN RIGHT GSV is normal. CFV is compressible, spontaneous, phasic, competent and demonstrates normal augmentation. FV is compressible, spontaneous, phasic, competent and demonstrates normal augmentation. POP V is compressible, spontaneous, phasic, competent and demonstrates normal augmentation. T/P Trunk is compressible. PTV is compressible. RT PerV is compressible. Procedure Exam performed in department. This is a venous duplex using B-mode, color flow and spectral Doppler. A preliminary report was called and/or faxed to ED. VL/Venous Duplex US, Unilateral Interpretation Summary There is no evidence of right lower extremity deep vein thrombosis. Right great saphenous vein appears patent and compressible segmentally. Ordering Physician: Bladimir Aiken Referring Physician: TAMMY PATE Performed By: Diane Alexandre, STEPHEN, RVT
[2021-07-12 12:40] LABS: Absolute Neutrophil Count 6.9 X10^3/uL (2.0-7.7); Basophil% 0.9 % (0-1); Eosinophil# 0.45 X10^3/uL; Hematocrit 36.1 % (37-47); Hemoglobin 11.8 g/dL (12.0-15.0); Lymphocyte % 24.9 % (19-41); Mean Corp Hgb Conc 32.7 g/dL (32-36); Mean Corpuscular Hgb 29.2 pg (27.0-32.0); Mean Corpuscular Volume 89.4 fL (81-99); Mean Platelet Vol. 10.2 fl (6.2-12.0); Monocyte# 0.95 X10^3/uL; Monocyte% 8.4 % (0-10); NRBC Flagged by Analyzer 0 % (0-5); Neutrophil # 6.91 X10^3/uL (2.7-7.7); Neutrophil % 61.4 % (47-70); Platelet Count 216 K/mm3 (150-450); RBC Distribution Width CV 13.6 % (11.6-14.6); RBC Distribution Width SD 44.7 fl (35.1-43.9); Red Blood Count 4.04 M/mm3 (4.2-5.4); White Blood Count 11.3 K/mm3 (4.4-11.0)
[2021-07-12 12:53] LABS: Anion Gap 4 (5-15); BUN 8 mg/dL (7-18); BUN/Creat Ratio 12.7 RATIO (10-20); Chloride 107 mmol/L (98-107); Creatinine, Serum 0.63 mg/dL (0.55-1.02); EST Glomerular Filtration Rate 104 mL/min (>60); Est Glom Filt Rate - Afr Amer 125 mL/min (>60); Glucose 148 mg/dL (74-106); Potassium 3.4 mmol/L (3.5-5.1); Sodium Level 142 mmol/L (136-145)
[2021-07-12] MEDS: Cephalexin 250 MG Capsule 500 MG PO (13:16)
[2021-07-12 13:20] VITALS: BP 124/69; PULSE 71; RESP 15; O2SAT 98
--- NOTE | 2021-07-12 13:51 | EX.ED.DYSGE1 ---
HPI History of Present Illness Chief Complaint: Cellulitis Narrative Narrative: 56-year-old female presenting with right lower extremity edema and areas of erythema. She does have this somewhat chronically. She denies any injury. She is not having systemic signs or symptoms such as fevers or chills. She is concerned she may have a skin infection. [facility] Medical History Anxiety Anxiety and depression Depression History of drug overdose Hyperlipemia Seizures Unilateral above knee amputation Home Medications acetaminophen 1,000 mg PO BID PRN PRN 05/20/18 [History Last Taken 06/23/19] ascorbic acid (vitamin C) [Vitamin C] 1,000 mg PO DAILY 05/20/18 [History Last Taken 06/23/19] aspirin 81 mg PO DAILY 05/20/18 [History Last Taken 06/23/19] amlodipine 10 mg PO DAILY #0 tab 05/25/21 [Rx Last Taken Unknown] carvedilol 6.25 mg PO BID #0 tab 05/25/21 [Rx Last Taken Unknown] buprenorphine HCl 12 mg SUBLINGUAL BID 07/12/21 [History Last Taken Unknown] cephalexin 500 mg PO Q6H 7 Days #28 cap 07/12/21 [Rx Last Taken Unknown] docusate sodium [Colace] 100 mg PO DAILY 07/12/21 [History Last Taken Unknown] duloxetine 120 mg PO DAILY 07/12/21 [History Last Taken Unknown] loratadine 10 mg PO DAILY 07/12/21 [History Last Taken Unknown] pregabalin 150 mg PO BID 07/12/21 [History Last Taken Unknown] quetiapine 300 mg PO DAILY 07/12/21 [History Last Taken Unknown] zinc oxide 1 applic TOPICAL PRN PRN 07/12/21 [History Last Taken Unknown] Allergy/AdvReac Type Severity Reaction Status Date / Time metoclopramide HCl Allergy shaking Verified 07/12/21 11:43 [From Reglan] prochlorperazine edisylate Allergy Hives Verified 07/12/21 11:43 [From Compazine] prochlorperazine maleate Allergy Hives Verified 07/12/21 11:43 [From Compazine] promethazine HCl Allergy Hives Verified 07/12/21 11:43 [From Phenergan] Social History household members: none Smoking Status: Never smoker alcohol intake: never substance use type: does not use ROS ROS ED Constitutional Constitutional ED: Denies chills or fever(s) Eyes Eyes: Denies blurry vision or diplopia ENT ENT ED: Denies rhinorrhea or sore throat Cardiovascular Cardiovascular: Denies chest pain or palpitations Respiratory/Chest Respiratory/Chest: Denies cough or dyspnea Gastrointestinal Gastrointestinal: Denies abdominal pain, nausea or vomiting Genitourinary Genitourinary ED: Denies dysuria or hematuria Musculoskeletal Musculoskeletal: Reports other Details: Right lower extremity Integumentary Reports rash Neurologic Neurologic: Denies headache(s) or weakness EXAM Physical Exam Const Vital Signs: 07/12/21 11:37 07/12/21 11:39 07/12/21 13:20 Temperature 98.2 F 98.2 F Temperature Source Oral Oral Pulse Rate 82 82 71 Respiratory Rate 18 18 15 Blood Pressure 112/71 112/71 124/69 H Blood Pressure Mean 84 84 Pulse Ox 93 94 98 Oxygen Delivery Method Room Air Room Air Positive well nourished General Appearance ED: NAD; Negative for pallor HEENT Reports moist mucous membranes Negative for trauma Eyes PERRL and EOMs intact bilaterally Neck no lymphadenopathy and supple Resp normal respiratory effort and clear to auscultation bilaterally Cardio regular rate and regular rhythm Extremity Extremity Narrative: Mild tenderness diffusely over the right lower extremity. There is some mild lower extremity edema here. There is areas of erythema on the anterior portion of the tibia and on the posterior calf and posterior thigh. These do not appear to be contiguous. They are mildly warm. Neuro oriented x3 Sensorium / Orientation: alert Psych mental status grossly normal Skin General Skin Exam: Negative for jaundice or pallor MDM MDM MDM Narrative Medical decision making narrative: I did obtain basic lab work and she has a very mild leukocytosis of 11.3. There is no left shift. BMP shows normal renal function and electrolytes except for potassium of 3.4. DVT studies performed on the right lower extremity which is negative for acute DVT. Given patient's faint erythema and slight white blood cell count I will place her on antibiotics. He is counseled to rest and elevate the leg as well as return for any new or worsening symptoms. Impression: 1. Right lower extremity swelling 2. Cellulitis Lab Data Labs: Laboratory Results - last 24 hr 07/12/21 07/12/21 12:34 12:34 WBC 11.3 H RBC 4.04 L Hgb 11.8 L Hct 36.1 L MCV 89.4 MCH 29.2 MCHC 32.7 RDW Std Deviation 44.7 H RDW Coeff of Adilia 13.6 Plt Count 216 MPV 10.2 Immature Gran % (Auto) 0.400 Neut % (Auto) 61.4 Lymph % (Auto) 24.9 [place] % (Auto) 8.4 Eos % (Auto) 4.0 Baso % (Auto) 0.9 Absolute Neuts (auto) 6.9 Absolute Lymphs (auto) 2.80 Nucleated RBC % 0 Sodium 142 Potassium 3.4 L Chloride 107 Carbon Dioxide 31.0 Anion Gap 4 L BUN 8 Creatinine 0.63 Estim Creat Clear Calc 81.50 Est GFR (MDRD) Af Amer 125 Est GFR (MDRD) Non-Af 104 BUN/Creatinine Ratio 12.7 Glucose 148 H Calcium 9.0 Radiography Diagnostic Testing: Clinical Impression(s) from Imaging Studies Venous Doppler Study 07/12/21 12:06 Interpretation Summary There is no evidence of right lower extremity deep vein thrombosis. Right great saphenous vein appears patent and compressible segmentally. Ordering Physician: Bladimir Aiken Referring Physician: TAMMY PATE Performed By: Diane Alexandre, STEPHEN, RVT Discharge Plan Triage Chief Complaint: Cellulitis ED Provider: Bladimir Aiken Dx/Rx/DC Orders Instructions: ED Cellulitis Prescriptions: New cephalexin 500 mg capsule 500 mg PO Q6H 7 Days Qty: 28 RF: 0 No Action aspirin 81 MG tablet 81 mg PO DAILY RF: 0 acetaminophen 500 MG tablet 1,000 mg PO BID PRN PRN (Reason: Fever) RF: 0 ascorbic acid (vitamin C) [Vitamin C] 500 MG tablet 1,000 mg PO DAILY RF: 0 amlodipine 10 mg Tablet 10 mg PO DAILY Qty: 0 RF: 0 carvedilol 6.25 mg Tablet 6.25 mg PO BID Qty: 0 RF: 0 quetiapine 300 mg Tablet 300 mg PO DAILY RF: 0 zinc oxide 20 % Ointment 1 applic TOPICAL PRN PRN (Reason: redness) RF: 0 docusate sodium [Colace] 100 mg Capsule 100 mg PO DAILY RF: 0 buprenorphine HCl 8 mg Tablet, Sublingual 12 mg SUBLINGUAL BID RF: 0 duloxetine 60 mg Capsule,Delayed Release(Dr/Ec) 120 mg PO DAILY RF: 0 pregabalin 150 mg Capsule 150 mg PO BID RF: 0 loratadine 10 mg Capsule 10 mg PO DAILY RF: 0 Primary Care Provider: Harshad Pate Referrals: Harshad Pate MD [Primary Care Provider] - Disposition Disposition: Home, Self Care Discharge Date/Time: 07/12/21 14:21
== END 2021-07-12 14:21 | disposition home or self-care (01) ==
LOC: ED 13:27
PROVIDERS: Emergency Provider Student in an Organized Health Care Education/Training Program; PCP Family Medicine
DX: M79.89 Other specified soft tissue disorders (principal); L03.90 Cellulitis, unspecified; F32.A Depression, unspecified; F41.9 Anxiety disorder, unspecified; E78.5 Hyperlipidemia, unspecified; R56.9 Unspecified convulsions; Z89.619 Acquired absence of unspecified leg above knee; Z79.82 Long term (current) use of aspirin; Z79.899 Other long term (current) drug therapy
CPT/HCPCS: 80048; 85025; 93971; 99285; A4216

== ENCOUNTER 2021-07-24 08:30 | Outpatient (RCR) | payer OTHER, SELFPAY ==
--- NOTE | 2021-07-24 10:10 | BH.SGPN.GN ---
Behaviors/Verbalizations/Mental Status: []Client alert and oriented, neatly dressed and groomed. Eye contact good. Motor activity appropriate. Speech within normal limits. Affect congruent, mood anxious. Thoughts linear, logical, no signs of hallucinations or delusions. Client Response/Progress/Benefit: []Pt was well engaged in group AEB taking notes, providing input, and listening attentively throughout. Attentive during psychoeducation and discussed the importance of goal-setting with the group. Group identified potential benefits of having goals include: giving direction, giving purpose, improving mood, and better relationships. Group also worked together to identify barriers to goal-setting which included; negative self-talk, fear of change, unrealistic expectations, and fear of failure. Pt reported a personal barrier for her is negative thinking patterns. Benefited from increased awareness of benefits and barriers to goal-setting. First day of IOP tx. Will continue IOP tx to improve mood stability, gain healthy coping skills, and improve daily functioning. Narrative Note: []
--- NOTE | 2021-07-24 11:15 | BH.SGPN.GN ---
Behaviors/Verbalizations/Mental Status: []Client alert, oriented, casually dressed and groomed. Eye contact good. Motor activity appropriate. Speech within normal limits. Affect congruent, mood euthymic. Thoughts linear, logical, no signs of hallucinations or delusions. Client Response/Progress/Benefit: []Pt was a active participant in group discussions and activities. Engaged in activity. Was willing to complete the goal setting worksheet provided. Pt identified a SMART goal for the next week is: 3-5 times a week she will get out of bed, shower, and do something physical, mental or fun. Pt reported this would benefit her mental health by giving structure to her day and decreasing how much time she spends sitting around. Identified negative thoughts and family as potential barriers to completing this goal. Pt able to identify several solutions, such as reaching out to supports, that can help overcome identified barriers. Benefited from group by being able to utilize SMART formula to create a goal. Pt to continue IOP to reduce depression and anxiety, increasing healthy coping and prevent decompensation.
--- NOTE | 2021-07-24 11:39 | BH.COMM ---
Communication Note - Communication with Client Communication Note: Met with patient to complete initial paperwork. No significant change since pre-admission screening. Completed [place] Suicide screening. Pt reports history of suicidal ideations with thoughts of suffocating herself by carbon monoxide poisoning when pt first lost her leg 20 years ago. Additionally, pt was recently hospitalized at [facility] due to suicide attempt via overdose. Pt reports it was accidental and that she would not kill herself because she loves her grandkids and children. Denied active SI, plan, or intent this AM and in the last month. Denies passive thoughts of this AM and in the last month. Pt is future oriented and denies access to stockpiles of medication. Strong family support and currently living at an assisted living home. Reviewed case with Dr. Marshall with plan to admit to IOP with dx MDD recurrent, severe, without psychosis F 33.2
--- NOTE | 2021-07-25 09:05 | BH.SGPN.GN ---
Behaviors/Verbalizations/Mental Status: []Client alert and oriented, neatly dressed and groomed. Eye contact good. Motor activity appropriate. Speech circumstantial. Affect congruent, mood euthymic. Thoughts linear, logical, no signs of hallucinations or delusions. Reviewed client?s symptom tracker, no risk for suicidal ideation, plan, or intent as of 07/25/21 Client Response/Progress/Benefit: []Client responded well to session, receptive to support and engaged. Client reports feeling calm this morning even though she did not sleep well last night. Client shared her story with peers and the events that contributed to client being in IOP. Client received emotional support from peers and client stated she feels comfortable at IOP already. Client identified her goals for IOP are to get boundaries and shared how not having boundaries has lead to worsening mental health symptoms over the years. Client appeared to benefit from connecting with peers and sharing about her stressors. First week of IOP tx. Will continue IOP tx to prevent decompensation, gain insight, and learn healthy coping skills to better manage stressors. Narrative Note: []
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
[2021-07-25 12:33] VITALS: BP 133/88; PULSE 81
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
--- NOTE | 2021-07-25 13:22 | BH.DR.ITP ---
Initial Treatment Plan Patient Information Visit Information: ADMISSION DATE: EXPECTED LOS: 4-6 weeks Problems/Symptoms Problem #1:: Depression Symptom:: Sadness, recent history of hopelessness, worthlessness, guilt, survival ambivalence, biological disruption of sleep. Problem #2:: Anxiety Symptom:: Worry, rumination, flashbacks, reexperiencing, avoidance
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
--- NOTE | 2021-07-25 15:23 | BH.MTP_ITS ---
Master Treatment Plan - Patient Information Program Physician:: Dr. Ngozi Uribe Primary Therapist:: Alice DORADO - Psychiatric Diagnoses Psychiatric Diagnoses:: Major depressive disorder, recurrent, severe without psychosis F 33.2; Generalized anxiety disorder; Opioid use disorder, on maintenance therapy Diagnosis Code(s):: F 33.2 - Estimated LOS Estimated LOS (in weeks):: 6 Problem/Goal #1 - Problem/Goal #1 Stated Goal:: Client will reduce depressive symptoms, worthlessness, isolation, and negative thinking due major depressive disorder. Description of Barriers: Pt is still grieving the loss of her marriage, struggling with transitioning to independent living, reports family stress and conflict, and is currently weaning off Subutex after being on it for many years. Pt denies that she is an addict. Additionally, pt is wheelchair bound which causes some barriers, but pt able to complete her ADLs. Functional Impact: Pt is a 56-year-old female with a history of depression, anxiety, and PTSD. Pt was referred to [facility] following an admission to [facility] from 05/25/21-06/13/21 due to a suicide attempt via overdose. Pt was in a coma for three days due to the overdose and was found by her son-in-law on her bathroom floor after three days. Pt reports this was accidental and that she would not try to kill herself because she loves her family. Pt reports worsening depression and anxiety over the past year following the dissolution from her of 35 years. Pt reports since the separation, her functioning and mental health significantly decompensated. Pt is wheelchair bound and reports learning to live independently has been a struggle. Prior to pt's hospitalization, pt was isolating, crying daily, only eating ice cream sandwiches, feeling hopeless, and feeling worthless. Pt also reported survival ambivalence. Pt has a history of opiate addiction following her multiple surgeries and went through detox 15 years ago. Pt is currently on Subutex and is in the process of weaning off of this. Goal Relevant Strengths/Supports: Pt has strong family support, a outpatient treatment team, and is living at an assisted living facility while in [facility]. - Objectives Objective #1 Stated Objective: Client will learn and utilize 2-3 healthy coping strategies to increase self-care and better manage depressive symptoms as shown by preventing decompensation of DSM-5 scores. Interventions: Through group and individual sessions, therapist will help client identify warning signs of depression. Therapist will teach client various coping skills to manage her symptoms and give client tangible resources to use to regulate emotions. Therapist will use cognitive restructuring techniques and help client gain awareness of negative thoughts that reinforce depressive cycles and help client reframe these thoughts. Discharge Criteria: Client will have met this goal when she can report learning and using at least 2 coping skills to manage depressive symptoms and show preventing decompensation of DSM-5 symptoms Target Date: 09/04/21 Review Date: 08/21/21 Status: open Objective #2 Stated Objective: Client will identify at least 2-3 negative self-talk messages used to reinforce depression/worthlessness and replace thoughts with positive, realistic messages. Interventions: Therapist will help client identify distorted, negative beliefs about self and replace with more realistic, affirmative messages. Therapist will use CBT to help client increase insight to the connection between thoughts, emotions, and behaviors. Therapist will encourage client to practice thought challenging and self-compassion. Discharge Criteria: Client will have achieved this goal when can verbalize at least 2 negative self-talk messages and effectively replace those thoughts with affirmative messages. Target Date: 09/04/21 Review Date: 08/21/21 Status: open Problem/Goal #2 - Problem/Goal #2 Stated Goal:: Will reduce anxiety and ruminations while improving ability to cope with interpersonal relationship issues. Description of Barriers: Pt is still grieving the loss of her marriage, struggling with transitioning to independent living, reports family stress and conflict, and is currently weaning off Subutex after being on it for many years. Pt denies that she is an addict. Additionally, pt is wheelchair bound which causes some barriers, but pt able to complete her ADLs. Functional Impact: Pt is a 56-year-old female with a history of depression, anxiety, and PTSD. Pt was referred to [facility] following an admission to [facility] from 05/25/21-06/13/21 due to a suicide attempt via overdose. Pt was in a coma for three days due to the overdose and was found by her son-in-law on her bathroom floor after three days. Pt reports this was accidental and that she would not try to kill herself because she loves her family. Pt reports worsening depression and anxiety over the past year following the dissolution from her of 35 years. Pt reports since the separation, her functioning and mental health significantly decompensated. Pt is wheelchair bound and reports learning to live independently has been a struggle. Prior to pt's hospitalization, pt was isolating, crying daily, only eating ice cream sandwiches, feeling hopeless, and feeling worthless. Pt also reported survival ambivalence. Pt has a history of opiate addiction following her multiple surgeries and went through detox 15 years ago. Pt is currently on Subutex and is in the process of weaning off of this. Goal Relevant Strengths/Supports: Pt has strong family support, a outpatient treatment team, and is living at an assisted living facility while in IOP. - Objectives Objective #1 Stated Objective: Client will identify 2-3 anxiety/panic triggers and 2 coping skills to use when feeling anxious to manage anxiety as shown by preventing decompensation of her DSM-5 scores for anxiety. Interventions: Therapist will provide education on anxiety, avoidance behaviors, and maintenance cycles. Therapist will help client explore personal symptoms and warning signs of anxiety. Therapist will teach client coping skills to improve emotional regulation, mindfulness, and distress tolerance to help client cope with anxiety in the moment. Discharge Criteria: Client will have accomplished this goal when she can identify at least 2 triggers and report using 2 coping skills to manage anxiety. Additionally, client will have accomplished this goal AEB prevention of decompensation of DSM-5 scores for anxiety. Target Date: 09/04/21 Review Date: 08/21/21 Status: open Objective #2 Stated Objective: Client will learn 2-3 techniques to better manage interpersonal relationships. Interventions: Through group and individual sessions, client will learn strategies to improve communication, set healthy boundaries, and increase emotional regulation to better manage interpersonal relationships. Discharge Criteria: Client will have accomplished this goal when she can report learning at least two strategies to better manage interpersonal relationships. Target Date: 09/04/21 Review Date: 08/21/21 Status: open
--- NOTE | 2021-07-27 08:25 | BH.COMM ---
Communication Note - Communication with Client Communication Note: Pt cancelled today due to symptoms of a cold and a fever. Pt reports she is getting tested for COVID and will keep IOP staff updated.
--- NOTE | 2021-07-31 09:02 | BH.SGPN.GN ---
Behaviors/Verbalizations/Mental Status: []Client alert and oriented, casually dressed and groomed. Eye contact good. Motor activity appropriate. Speech within normal limits. Affect congruent, mood anxious and dysthymic. Thoughts linear, logical, no signs of hallucinations or delusions. Reviewed client?s symptom tracker, no risk for suicidal ideation, plan, or intent as of 07/31/21 Client Response/Progress/Benefit: [] Client responded well to session, willing to share and receptive of support from peers. Client reports feeling a mix of emotions this morning, sharing that she had several positives as well as stressors over the weekend. Discussed positives as spending time with her grandchildren, as well as purchasing a condo for herself. Noted these are both stressors but healthy stressors. Went on to discuss an ongoing source of tension as her relationship with her daughter as they have different expectations for client and often struggle to agree on what is in client?s best interest. Client shared working on ?letting go of the small stuff? and setting boundaries where appropriate but continues to struggle in doing so. Receptive of group support and appeared to benefit from connecting with fellow participants similar struggles with boundaries with loved ones. Will continue IOP tx to prevent decompensation, continue to improve depression and anxiety management, improve healthy conflict resolution, and further stabilize mood. Narrative Note: []
--- NOTE | 2021-07-31 10:05 | BH.SGPN.GN ---
Behaviors/Verbalizations/Mental Status: []Client alert and oriented, casually dressed and groomed. Eye contact good. Motor activity appropriate. Speech within normal limits. Affect congruent, mood euthymic. Thoughts linear, logical, no signs of hallucinations or delusions. Client Response/Progress/Benefit: []Client responded well to session AEB client contributing to group discussion and listening attentively to others. Client participated in group discussion introducing the topic of coping skills, sharing that throughout life you learn to cope by observing friends and family. Group discussed coping skills, reviewing examples of unhealthy coping, and why we use them. Client discussed isolation and unhealthy relationships as unhealthy coping skills that can be learned from childhood. Client participated in experiential activity, and was attentive throughout group processing, showing an understanding of the importance of internal and external supports. Client discussed how lack of social support in childhood made it difficult for her to form solid relationships in adulthood, contributing to a current lack of external support. Appeared to benefit from increased knowledge of internal coping skills and external supports, as well as increased self awareness. Client will continue IOP treatment to decrease self-isolation and increase healthy communication with supports. Narrative Note: []
--- NOTE | 2021-07-31 11:10 | BH.SGPN.GN ---
Behaviors/Verbalizations/Mental Status: []Client alert and oriented, neatly dressed and groomed. Eye contact good. Motor activity appropriate. Speech within normal limits. Affect congruent, mood euthymic. Thoughts linear, logical, no signs of hallucinations or delusions. Client Response/Progress/Benefit: []Client responded well to session, taking notes and contributing at times. Group discussed the different categories of coping skills which included distraction, emotional release, grounding, self-love, and thought challenging. Client's coping skill menu included: taking breaks, art, affirmations using the facts, setting boundaries, and looking at the evidence. Appeared to benefit from increasing repertoire of healthy coping skills. Progress noted in client?s consistent communication with IOP staff. Will continue tx to improve daily functioning, reduce negative thinking, and increase mood stability. Narrative Note: []
--- NOTE | 2021-08-06 10:05 | BH.SGPN.GN ---
Behaviors/Verbalizations/Mental Status: []Client alert and oriented, casually dressed and groomed. Eye contact good. Motor activity appropriate. Speech within normal limits. Affect congruent, mood euthymic. Thoughts linear, logical, no signs of hallucinations or delusions. Client Response/Progress/Benefit: []Client responded well to session AEB contributing to group discussion and listening attentively to others. Group worked together to define anger and discussed its internal and external impacts. Client shared her definition of anger as defensiveness. Client completed the anger iceberg exercise and identified emotions that tend to underlie anger. Client gained awareness of their typical response to anger, which includes: being defensive, low self-esteem, setting boundaries, and standing up for herself. Client identified disappointment, loneliness, depression, and feeling judged among feelings that often come out as anger. Client appeared to benefit from increased understanding of the impact of anger on mental health. Will continue IOP treatment to continue improving healthy communication and boundary setting with supports. Narrative Note: []
--- NOTE | 2021-08-06 11:11 | BH.SGPN.GN ---
Behaviors/Verbalizations/Mental Status: []Client alert and oriented, casually dressed and groomed. Eye contact good. Motor activity appropriate. Speech within normal limits. Affect congruent, mood anxious. Thoughts linear, logical, no signs of hallucinations or delusions. Client Response/Progress/Benefit: []Pt did well to engage AEB participating in discussion, completing group activity, and taking notes. Pt did well to use calming and self-regulation skills to cope with frustrations while working with group to complete the challenge activity. Reflecting that she initially became frustrated by her physical limitations, but challenged herself to be more flexible and willing to adjust which ultimately allowed her group to succeed. Contributed as participants worked to brainstorm healthy coping skills for better managing anger which included: reaching out to supports, art, taking breaks, exercise, DDD, and proactively communicating needs with supports. Pt appeared to benefit from identifying different techniques to manage anger as well as gaining awareness of the potential internal and external costs of anger. Pt selected continuing to work on establishing healthier boundaries with supports as a skill to begin practicing to better manage anger. Will continue IOP tx to continue to promote mood stability, improve anxiety management and healthy boundary setting, as well as prevent decompensation. Narrative Note: []
--- NOTE | 2021-08-06 15:55 | BH.MDN_ITS ---
Multi-Disciplinary Note - Note 45-min Individual Time Started:: 09:17 Date: 08/06/21 Purpose of session/treatment goals addressed:: Purpose of this session was to address tx goal #2 of client tx plan. Reviewed importance of boundaries on mental health and identify strategies for reinforcing healthy boundaries and advocating for mental health needs. Eye Contact:: Good Motor Activity:: Appropriate Appearance:: Neat, Casual Speech:: Pressured Mood:: Anxious, Dysthymic Affect:: Congruent Thoughts:: Linear, Logical, Racing, No evidence of hallucinations/delusions noted Staff Interventions:: thought challenging, motivational interviewing, psychoeducation on: - healthy boundaries, 5 love languages, CBT techniques - verbal cost/benefit analysis of maintaining current boundaries with daughter, strengths perspective Client Response:: Client receptive to session, open to meeting with this therapist as client?s usual therapist is out for the week. Discussed ongoing struggles with managing anxiety, especially when faced with the unexpected or potential circumstances impacting her ability to do something. Provided an example regarding a letter she received from her insurance company over the weekend. Client shared the letter claimed she had been denied IOP services until additional information was acquired. Client expressed ruminating about this much of the weekend and fearing she would no longer be able to complete the treatment program. Went on to explain she had gotten her daughter involved with figuring this out, despite previously sharing that she does not want her daughter involved in her mental health treatment. Able to identify that anxiety has impacted her ability to think rationally and maintain healthy boundaries in the past. Described several additional instances occurring over the weekend in which client felt she and her daughter had different expectations regarding appropriate boundaries, such as client?s daughter monitoring client?s email account. Client discussed feeling she has little power in the decision-making process when her daughter engages in these behaviors, ultimately resulting in client becoming upset and an argument occurring. Client shared she struggles however to implement and maintain healthy boundaries with her daughter, explaining that she had given her daughter the password to her email even after changing it over the weekend. Receptive of discussion reviewing importance of healthy boundaries in continued mental health wellness. Shared insights remembered from prior session regarding introduction to healthy boundaries and acknowledged the impact of current boundaries on maintaining anxiety and ongoing relationship tension. Receptive of reviewing healthy vs. unhealth boundaries worksheet and indicates plans to identify which healthy vs. unhealthy traits she connects most with for homework. Shared plans to reflect on what she believes healthy boundaries with her daughter should look like in order to identify areas to begin working towards small changes. Risks/Concerns:: Client denies any suicidal ideations, plan, or intent as of 08/06/21. Progress Toward Goals/Plan:: Continues to report progress in overall improved mood, indicating that she feels more validated and less alone with her mental health struggles since beginning the IOP program. Shared ongoing struggles in setting boundaries with her daughter, identifying this as a major contributing factor to continued anxiety and mood instability. Able to identify several strategies for effectively communicating and addressing conflict without escala ting to point of verbal outburst. Reports she has been working on nor engaging in conversations she believes will create additional unnecessary stress. Additionally, pt was able to apply several self-care skills used over the past week such as reading, daily devotionals, reaching out to friends and family as well as watching movies. This is further evidenced by decrease in DSM scores for depression. Continues to report difficulties with loneliness and effective communication with supports. Client to continue IOP tx to further improve healthy boundary understanding and implementation, reduce anxiety and depression, as well as reduce rumination. Time Stopped:: 10:01
--- NOTE | 2021-08-08 09:05 | BH.SGPN.GN ---
Behaviors/Verbalizations/Mental Status: [] Eye contact is good. Motor activity is appropriate. Appearance is casual. Speech is Appropriate. Mood is euthymic. Affect is full. Thoughts are linear and logical. No evidence of psychosis. Reviewed daily check in sheet and no reports of suicidal ideations or intent. Client Response/Progress/Benefit: [] Pt was an active participant in group discussion. Attentive. Emotion for today is positive. Shred that she missed group yesterday due to phantom leg pain which impacted her sleep. She reports mental health wins include family verbalizing they are proud of me for attending this program and working on her mental health. Per pt family reports significant improvement. Reports that she is accepting her current life (living in a assisted living) and understands that it is only temporary. Able to identify the benefits to AL. Talked about the anger about her and moving forward. She does not want her family to worry about her. Progress noted per pt report, however unclear if this is related to IOP or not as pt's consistent as been inconsistent (often calling off). Benefited from group support, encouragement, and feedback. Will continue in IOP to prevent decompensation, increase healthy coping, and stabilize mood. Narrative Note: []
--- NOTE | 2021-08-08 10:10 | BH.SGPN.GN ---
Behaviors/Verbalizations/Mental Status: []Eye contact is good. Motor activity is appropriate. Appearance is casual. Speech is WNL. Mood is euthymic. Affect is congruent. Thoughts are linear and logical. No evidence of psychosis. Client Response/Progress/Benefit: [] Pt was an active participant in group discussions. Attentive during psychoeducation. Pt along with peers added their perspective on the definition of stigma as it relates to mental health. Pt participated in interactive group discussion on the topic. Pt worked with group to identify impact of stigma. Pt stated social stigma has kept pt from trying new medications. P reported self-stigma has led her to feel shame, weak, self-doubt, hide her struggles, not try new things, and overcompensate. Benefited from increased awareness of mental health stigma and how it could impact patient. Will continue in IOP to stabilize moods, continue working on challenging negative thoughts and prevent decompensation.
--- NOTE | 2021-08-08 11:53 | PCM.BH.PN_ITS ---
Progress Note Progress Note: History of Present Illness/Interim History: [] The patient is a 56-year-old female with a history of depression, anxiety, and PTSD and chronic pain who is seen in follow-up at the [facility] behavioral health IOP program. I last saw the patient 2 weeks ago and at that time no medication changes were made. The patient feels that she is doing really well and has improved a lot since starting the IOP program. She feels very supported in the program and is engaged in functions well when present but has sometimes has a little bit of sporadic attendance. The patient is doing much better with her recent divorce and sold her home last week and got a great lemon for it. She then plans to move later to a condominium. She feels that living in her home alone was too much stress for her and she was unable to do the upkeep the home required and so she feels this is a great move for her to move into a condominium. She is still on the reduced dose of Subutex and feels good about this also. She is enjoying her grandchildren and is future oriented and optimistic about her future now. Her sleep remains somewhat decreased secondary to her chronic phantom limb pain but she is getting up to 6 hours a night now. 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 She denies any passive thoughts of , crying spells, suicidal ideation, plan for suicide, homicidal ideation, hallucinations or delusions. Her anxiety is much improved and much less than when she started the program. Current Psychiatric Medications: [] Medications remain the same as the last visit on July 25, 2021. Mental Status Examination: [] The patient is a 56-year-old female seen ambulating in a wheelchair and wearing a mask due to the pandemic. She is casually dressed and groomed with good hygiene. She has no psychomotor agitation or retardation. Eye contact is good and speech is normal rate and rhythm and fluent with no pressure. Mood is euthymic. Affect is full and normal. Thought process is goal-directed and organized and still mildly overinclusive but less than before. Thought content: There is no evidence of passive thoughts of , suicidal ideation, plan for suicide, homicidal ideation, hallucinations or delusions. The patient is looking forward to her future. Judgment is intact. Insight is improving. Impulsivity is moderate. Diagnoses: [] 1. Major depressive disorder, recurrent, moderate (resolving) 2. Generalized anxiety disorder 3. Opioid use disorder history, on maintenance therapy as pain medication 4. 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 5. Primary support issues Plan: [] The patient will continue the IOP program as the structure, support, education and group therapy will hopefully prevent worsening of the patient's symptoms which might require hospitalization. The patient felt safe during the interview but if it anytime she does not feel safe she agrees to let us know or go to the emergency room. The risks, options, possible complications and side effects of the medications were again discussed with the patient and again the patient does not want to change or wean any of her medications because she feels she is doing well on this current regimen. The patient will continue to follow-up with her outpatient providers and I will see the patient in follow-up on a regular basis while in the IOP program.
--- NOTE | 2021-08-17 10:40 | BH.COMM ---
Communication Note - Communication with Client Communication Note: Pt did not attend any groups the week of 08/13/21-08/17/21 due to report of a head cold.
== END 2021-08-13 23:59 ==
LOC: BHIOP 08:30
PROVIDERS: PCP Family Medicine; Visit Provider Psychiatry & Neurology Psychiatry
DX: F33.2 Major depressive disorder, recurrent severe without psychotic features (principal); F11.99 Opioid use, unspecified with unspecified opioid-induced disorder; F41.8 Other specified anxiety disorders
CPT/HCPCS: S9480; 90834; 90853

== ENCOUNTER 2021-08-14 07:29 | Outpatient (RCR) | payer OTHER, SELFPAY ==
[2021-08-14 00:48] VITALS: BP 133/88; PULSE 81
--- NOTE | 2021-08-15 09:45 | BH.COMM ---
Communication Note - Communication with Client Communication Note: This therapist spoke with pt's outpatient therapist, Dr. Fernandez, regarding pt's attendance and progress in IOP tx. Dr. Fernandez shared pt's poor attendance is consistent with patterns of behavior he has seen with pt in throughout working with her. Dr. Fernandez expressed concern for pt's lack of attendance and this therapist will continue to provide updates.
--- NOTE | 2021-08-22 10:39 | BH.DS ---
Discharge Summary - Demographics Date of Admission:: 07/24/21 Discharge Date: 08/22/21 Presenting Problems at Admission:: Pt is a 56-year-old female with a history of depression, anxiety, and PTSD. Pt was referred to [facility] following an admission to [facility] from 05/25/21-06/13/21 due to a suicide attempt via overdose. Pt was in a coma for three days due to the overdose and was found by family on her bathroom floor after three days. Pt reports this was accidental and that she would not try to kill herself because she loves her family. Pt reports worsening depression and anxiety over the past year following the dissolution from her of 35 years. Pt reports since the separation, her functioning and mental health significantly decompensated. Pt is wheelchair bound and reports learning to live independently has been a struggle. Prior to pt's hospitalization, pt was isolating, crying daily, only eating ice cream sandwiches, feeling hopeless, and feeling worthless. Pt also reported survival ambivalence. Pt has a history of opiate addiction following her multiple surgeries and went through detox 15 years ago. Pt is currently on Subutex and is in the process of weaning off of this. Discharge Diagnoses:: Major depressive disorder, recurrent, severe without psychosis F 33.2; Generalized anxiety disorder; Opioid use disorder, on maintenance therapy Reason for Discharge:: Discussed attendance issues with pt and progress made in [facility]. Pt acknowledges her attendance has been an issue and understands the [facility] attendance policy. Pt also self-reports that she is doing much better than when she started IOP and has many things to look forward to. Pt will voluntarily discharge from [facility] at this time as pt reports outpatient counseling will be a more appropriate level of care. - Treatment Progress During Treatment & Response: Pt reports her mood has improved and her mental health symptoms are mostly resolved since starting IOP. Pt reports looking forward to moving into a new condo and returning to outpatient counseling. Pt's response to treatment was good on the days pt attended. Pt appeared to connect well with peers and reported benefit from the educational group topics. However, pt missed a total of 13 times within a four week period which was a barrier to working on individual goals and evaluating application of coping skills. Pt's progress is also difficult to gauge as pt has been living in assisted living during [facility] which offers additional support for ADLs. Having this support appeared to take off some of the stress of independent living that triggered pt's worsening symptoms several months ago. Issues Still to be Addressed:: Pt can continue to benefit from ongoing counseling and medication management. Pt did not get to work on many treatment goals while in IOP due to limited attendance. Can benefit from increasing application of healthy coping skills, effective communication skills, and establishing healthy connections with supports. Pt reported wanting to work on boundary setting during her first week of IOP. Discharge Recommendations/Instructions:: Pt will follow up with her outpatient therapist, Dr. Fernandez, and she has an appointment with him next week. Pt had been seeing Alea Lopez at [facility], but is worried about returning due to said provider being on maternity leave. Pt was given options for [place] [id number], [facility], and [facility] for medication management. Pt will continue to follow up with her outpatient medical providers including Dr. Karimi and Dr. Morris for pain management. Discharge Handout: Complete Discharge Handout with client on aftercare options and continuity of care.
== END 2021-08-22 07:56 | disposition home or self-care (01) ==
LOC: BHIOP 07:29
PROVIDERS: PCP Family Medicine; Visit Provider Psychiatry & Neurology Psychiatry
DX: F33.2 Major depressive disorder, recurrent severe without psychotic features (principal); F11.99 Opioid use, unspecified with unspecified opioid-induced disorder; F41.8 Other specified anxiety disorders; Z91.51 Personal history of suicidal behavior

== ENCOUNTER 2022-07-14 09:22 | Emergency (ER) | payer OTHER, SELFPAY ==
[2022-07-14 09:23] VITALS: BP 134/106; PULSE 113; RESP 18; TEMP 36.8; O2SAT 98; BMI 40.4
[2022-07-14 09:26] VITALS: O2SAT 97
--- NOTE | 2022-07-14 10:01 | CT_ITS ---
EXAM: CT HEAD WITHOUT INTRAVENOUS CONTRAST CLINICAL INDICATION: Head injury. TECHNIQUE: Multiple axial images were obtained of the head without intravenous contrast. This CT exam was performed using one or more of the following dose reduction techniques: automated exposure control, adjustment of the mA and/or kV according to patient size, and/or use of iterative reconstruction technique. This report was created using [email or web address] report generation technology. RADIATION DOSE: CTDIvol = 44.99 mGy, DLP = 846.73 mGy-cm COMPARISON: CT head without contrast 05/20/2021. MRI brain without contrast 05/22/2021. 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 No intra- or extra-axial hemorrhage. No intracranial mass or mass effect. Posterior fossa structures are unremarkable. No hydrocephalus. Basal cisterns are patent. BONES/JOINTS: Unremarkable. No discrete lytic or blastic abnormalities. SINUSES: Unremarkable as visualized. Clear. MASTOID AIR CELLS: Unremarkable. Clear. ORBITS: Visualized globes, extraocular muscles, optic nerves and retrobulbar fat appear unremarkable. CT/Brain/Head without Contrast IMPRESSION: 1. No acute findings in the head/brain. 2. 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 3. No interval change when compared to 05/20/2021. Electronically Signed: Kavon Johansen MD at 10:33 EST ,
--- NOTE | 2022-07-14 10:01 | RAD_ITS ---
EXAM: XR RIGHT SHOULDER COMPLETE, 2 OR MORE VIEWS CLINICAL INDICATION: Right shoulder injury. TECHNIQUE: Two or more views of the right shoulder. This report was created using [email or web address] report generation technology. COMPARISON: None. FINDINGS: BONES/JOINTS: Unremarkable. No acute fracture. No subluxation. Normal alignment. Preservation of the joint space. No sclerotic or destructive changes observed. SOFT TISSUES: Unremarkable. No soft tissue swelling or gas. No radiopaque foreign body. RAD/Shoulder min 2 Views IMPRESSION: Negative right shoulder x-rays. Electronically Signed: Kavon Johansen MD at 10:45 EST ,
--- NOTE | 2022-07-14 10:01 | RAD_ITS ---
EXAM: XR RIGHT WRIST COMPLETE, 3 OR MORE VIEWS CLINICAL INDICATION: Right wrist injury. TECHNIQUE: Frontal, lateral and oblique views of the right wrist. This report was created using [employer] report generation technology. Fracture or dislocation COMPARISON: None. FINDINGS: BONES/JOINTS: Unremarkable. No acute fracture. No subluxation. Normal alignment. Preservation of the joint space. No sclerotic or destructive changes observed. SOFT TISSUES: Soft tissue swelling overlying the dorsum of the hand and wrist. No radiopaque foreign body. RAD/Wrist min 3 Views IMPRESSION: No acute fracture or dislocation in the right wrist. Electronically Signed: Kavon Johansen MD at 10:46 EST ,
--- NOTE | 2022-07-14 10:03 | EDS_ITS ---
HPI HPI - Fall History of Present Illness Chief Complaint: Fall Detail of Chief Complaint: Fall Informant: patient Narrative Narrative: Patient presents emergency department complaint of a fall that occurred last ev ening around midnight. Patient states that she had finished watching the [employer] football game and took her dog out for a walk around midnight. Patient admitted back to the garage when the dog pulled and she fell out of her wheelchair and struck her head. Patient is not sure if she lost consciousness. She remembers that she thought her right shoulder dislocated but then popped back in when she moved. Patient did not have her cell phone with her so she can call for help. Patient unable to get back up. Patient remembers the dog laying down with her on the garage floor. Neighbor this morning found the dog and came into the garage and found the patient on the floor and called EMS. Patient has history of left [id number] amputation. Patient complains mostly of pain in her right shoulder as well as her right wrist and hand. She is right-hand dominant. Patient lives alone. Patient has minimal headache. She denies neck pain. Patient not anticoagulated. [facility] Medical History (Updated 07/14/22 @ 11:[address] Zheng Yeung, DO) Generalized anxiety disorder History of drug overdose Hyperlipemia Major depressive disorder, recurrent severe without psychotic features Opioid use disorder Seizures Unilateral above knee amputation Home Medications acetaminophen 500 mg tablet 1,000 mg PO BID PRN PRN Pain 05/20/18 [History Last Taken 06/23/19] ascorbic acid (vitamin C) 500 mg tablet (Vitamin C) 1,000 mg PO DAILY supplement 05/20/18 [History Last Taken 06/23/19] aspirin 81 mg tablet,delayed release 81 mg PO DAILY heart health 05/20/18 [History Last Taken 06/23/19] amlodipine 10 mg tablet 10 mg PO DAILY #0 tabs 05/25/21 [Rx Last Taken Unknown] carvedilol 6.25 mg tablet 6.25 mg PO BID #0 tabs 05/25/21 [Rx Last Taken Unknown] buprenorphine HCl 8 mg sublingual tablet 8 mg sublingual BID 07/12/21 [History Last Taken Unknown] docusate sodium 100 mg capsule (Colace) 100 mg PO DAILY 07/12/21 [History Last Taken Unknown] duloxetine 60 mg capsule,delayed release 120 mg PO QHS 07/12/21 [History Last Taken Unknown] loratadine 10 mg capsule 10 mg PO DAILY 07/12/21 [History Last Taken Unknown] pregabalin 150 mg capsule 150 mg PO BID 07/12/21 [History Last Taken Unknown] quetiapine 300 mg tablet 300 mg PO QHS 07/12/21 [History Last Taken Unknown] zinc oxide 20 % topical ointment 1 applic topical PRN PRN redness 07/12/21 [History Last Taken Unknown] oxycodone-acetaminophen 5 mg-325 mg tablet 1 tab PO Q6H PRN PRN Pain 3 days #12 TABLETS 07/14/22 [Rx Last Taken Unknown] Allergy/AdvReac Type Severity Reaction Status Date / Time metoclopramide HCl Allergy shaking Verified 07/14/22 09:23 [From Reglan] prochlorperazine edisylate Allergy Hives Verified 07/14/22 09:23 [From Compazine] prochlorperazine maleate Allergy Hives Verified 07/14/22 09:23 [From Compazine] promethazine HCl Allergy Hives Verified 07/14/22 09:23 [From Phenergan] Social History household members: none Smoking Status: Never smoker alcohol intake: never substance use type: does not use ROS ROS ED Review of Systems ROS Unobtainable: other Constitutional Constitutional ED: Reports lethargy; Denies chills, fever(s), sweats or weight loss Eyes Eyes: Denies blurry vision, change in vision or diplopia ENT ENT ED: Denies rhinorrhea or sore throat Cardiovascular Cardiovascular: Denies chest pain, orthopnea or racing heartbeat Respiratory/Chest Respiratory/Chest: Denies cough, dyspnea, dyspnea on exertion, orthopnea or sputum Gastrointestinal Gastrointestinal: Denies abdominal pain, diarrhea, nausea or vomiting Genitourinary Genitourinary ED: Denies dysuria, hematuria or urinary frequency Musculoskeletal Musculoskeletal: Reports other Details: Right shoulder, right wrist, right hand pain ; Denies arthralgias, back pain, myalgias or neck pain Integumentary Denies abscess, Abrasions or rash Neurologic Neurologic: Reports headache(s); Denies weakness Psychiatric Psychiatric: Denies anxiety, depression or suicidal thoughts Endocrine Endocrinology: Denies polydipsia, polyphagia or polyuria Hematologic/Lymphatic Hematologic/Lymphatic: Denies easy bleeding, easy bruising or lymphadenopathy Allergic/Immunologic Allergic/Immunologic ED: Denies mouth swelling, tongue swelling or urticaria EXAM Physical Exam Const Vital Signs: 07/14/22 09:23 07/14/22 09:26 Temperature 98.3 F Temperature Source Oral Pulse Rate 113 H Respiratory Rate 18 Respiratory Effort Normal Non-Labored Respiratory Depth Normal Respiratory Pattern Normal Blood Pressure 134/106 H Blood Pressure Mean 115 Pulse Ox 98 97 Oxygen Delivery Method Room Air Room Air Positive well nourished and well developed General Appearance ED: well developed and NAD HEENT Reports TM's clear and moist mucous membranes normocephalic and atraumatic; Negative for trauma or tenderness Tympanic Membrane ED: Yes TM's clear Eyes PERRL and EOMs intact bilaterally General Eye ED: Negative for pale conjunctiva or scleral icterus Neck no lymphadenopathy, supple and no JVD General: Negative for tenderness Chest Wall inspection of chest normal and palpation of chest normal Chest: Negative for tenderness Resp normal respiratory effort and clear to auscultation bilaterally Effort and Inspection: Negative for respiratory distress or pain with movement Auscultation: Negative for rhonchi, wheezes or diminished lung sounds Cardio regular rate, regular rhythm, S1 normal heart sound, S2 normal heart sound and no murmurs Peripheral Pulses: pulses 2+ throughout GI normal to inspection, nondistended, normoactive bowel sounds, soft to palpation, non-tender, non-distended and no masses Back/Spine no CVA tenderness and no thoracic nor lumbar tenderness Extremity normal to inspection Extremity Narrative: Right arm-patient has tenderness palpation over the right shoulder diffusely. No sulcus sign. No obvious deformity. Patient does have diffuse soft tissue swelling over the right wrist and hand with ecchymosis and bruising. She has limited range of motion flexion extension secondary to pain. Neurovascular i ntact distally. No pain at the right elbow. General Extremety ED: Negative for edema General Extremity: Negative for edema Neuro oriented x3, CN's II-XII intact bilaterally, no sensory deficits noted and gait normal Sensorium / Orientation: awake, alert, oriented to person, oriented to place and oriented to time Motor Exam: strength 5/5 throughout and strength abnormal Psych mental status grossly normal Skin no rashes or lesions noted and no wounds MDM MDM Lab Data Lab results narrative: Patient had an IV line established. CPK obtained was only 332. CT scan of the brain was unremarkable. X-rays of the right shoulder, right wrist, and right hand showed no evidence of fractures. Patient received morphine 4 mg IV. This point she will be given a sling. She feels like she can manage going home and does have family that can help her. Labs: Laboratory Results - last 24 hr 07/14/22 10:10 Total Creatine Kinase 332 H Radiography Diagnostic Testing: Clinical Impression(s) from Imaging Studies Brain CT 07/14/22 10:01 IMPRESSION: 1. No acute findings in the head/brain. 2. 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 3. No interval change when compared to 05/20/2021. Electronically Signed: Kavon Johansen MD at 10:33 EST , Shoulder X-Ray 07/14/22 10:01 IMPRESSION: Negative right shoulder x-rays. Electronically Signed: Kavon Johansen MD at 10:45 EST , Wrist X-Ray 07/14/22 10:01 IMPRESSION: No acute fracture or dislocation in the right wrist. Electronically Signed: Kavon Johansen MD at 10:46 EST , Hand X-Ray 07/14/22 10:25 IMPRESSION: No acute fracture or dislocation in the right hand. Electronically Signed: Kavon Johansen MD at 10:45 EST , Three-view x-rays of right hand obtained interpreted by myself no acute fractures and radiology in agreement. Three-view x-rays of right wrist obtained interpreted by myself as no acute fractures and radiology in agreement. 2 view x-rays of the right shoulder obtained interpreted by myself no acute fractures and radiology in agreement. Discharge Plan Triage Chief Complaint: Fall ED Provider: Zheng Yeung Dx/Rx/DC Orders Clinical Impression: Closed head injury, Fall, Shoulder subluxation, right, Right wrist sprain, Contusion of hand, right Instructions: ED Soft Tissue Contusion, ED Joint Dislocation, ED Mechanical Fall, ED Head Injury (Adult), ED Wrist Sprain Prescriptions: New oxycodone-acetaminophen [oxycodone-acetaminophen] 1 TABLET tablet 1 tab PO Q6H PRN PRN (Reason: Pain) 3 Days Qty: 12 0RF No Action aspirin 81 MG tablet 81 mg PO DAILY acetaminophen 500 MG tablet 1,000 mg PO BID PRN PRN (Reason: Pain) ascorbic acid (vitamin C) [Vitamin C] 500 MG tablet 1,000 mg PO DAILY amlodipine 10 mg Tablet 10 mg PO DAILY Qty: 0 0RF carvedilol 6.25 mg Tablet 6.25 mg PO BID Qty: 0 0RF quetiapine 300 mg Tablet 300 mg PO QHS zinc oxide 20 % Ointment 1 applic TOPICAL PRN PRN (Reason: redness) docusate sodium [Colace] 100 mg Capsule 100 mg PO DAILY buprenorphine HCl 8 mg Tablet, Sublingual 8 mg SUBLINGUAL BID duloxetine 60 mg Capsule,Delayed Release(Dr/Ec) 120 mg PO QHS pregabalin 150 mg Capsule 150 mg PO BID loratadine 10 mg Capsule 10 mg PO DAILY Primary Care Provider: Harshad Karimi Referrals: Harshad Karimi MD [Primary Care Provider] - 5-7 Days Disposition Disposition: Home, Self Care
[2022-07-14] MEDS: Morphine 4 MG/ML Syringe IV (10:08)
[2022-07-14] MEDS: Ondansetron 4 MG/2 ML Vial IV (10:08)
--- NOTE | 2022-07-14 10:25 | RAD_ITS ---
EXAM: XR RIGHT HAND COMPLETE, 3 OR MORE VIEWS CLINICAL INDICATION: Right hand injury. TECHNIQUE: Frontal, lateral and oblique views of the right hand. This report was created using [employer] report generation technology. COMPARISON: None. FINDINGS: BONES/JOINTS: Degenerative narrowing with bone spurs involving the second and third DIP joints more than the fourth DIP joint. No acute fracture. No subluxation. Normal alignment. No sclerotic or destructive changes observed. SOFT TISSUES: Soft tissue swelling overlying the dorsum of the right hand. No radiopaque foreign body. RAD/Hand Min 3 Views IMPRESSION: No acute fracture or dislocation in the right hand. Electronically Signed: Kavon Johansen MD at 10:45 EST ,
[2022-07-14 10:34] LABS: CPK Total, Creatine Kinase 332 U/L (26-192)
[2022-07-14 12:10] VITALS: PULSE 98; RESP 17; O2SAT 96
== END 2022-07-14 12:11 | disposition home or self-care (01) ==
PROVIDERS: Emergency Provider Emergency Medicine; PCP Family Medicine; Visit Provider Emergency Medicine
DX: S09.90XA Unspecified injury of head, initial encounter (principal); S43.001A Unspecified subluxation of right shoulder joint, initial encounter; S60.221A Contusion of right hand, initial encounter; S63.501A Unspecified sprain of right wrist, initial encounter; W19.XXXA Unspecified fall, initial encounter
CPT/HCPCS: 70450; 73030; 73110; 73130; 82550; 96374; 96375; 99285; A4216; J2405

== ENCOUNTER 2022-07-15 16:16 | Emergency (ER) | payer OTHER, SELFPAY ==
[2022-07-15 16:17] VITALS: BP 150/98; PULSE 116; RESP 16; TEMP 36.6; O2SAT 94; BMI 32.9
--- NOTE | 2022-07-15 16:56 | CT_ITS ---
EXAM: CT HEAD WITHOUT INTRAVENOUS CONTRAST CLINICAL INDICATION: confusion TECHNIQUE: Multiple axial images were obtained of the head without intravenous contrast. This CT exam was performed using one or more of the following dose reduction techniques: automated exposure control, adjustment of the mA and/or kV according to patient size, and/or use of iterative reconstruction technique. This report was created using [employer] report generation technology. COMPARISON: 07/14/2022 FINDINGS: BRAIN AND EXTRA-AXIAL SPACES: There is a stable remote infarct in the right basal ganglia. No intra- or extra-axial hemorrhage. No intracranial mass or mass effect. Posterior fossa structures are unremarkable. Ventricles are appropriate for age. No hydrocephalus. Basal cisterns are patent. BONES/JOINTS: Unremarkable. No discrete lytic or blastic abnormalities. SINUSES: Unremarkable as visualized. Clear. MASTOID AIR CELLS: Unremarkable. Clear. ORBITS: Visualized globes, extraocular muscles, optic nerves and retrobulbar fat appear unremarkable. CT/Brain/Head without Contrast IMPRESSION: No acute intracranial abnormality. There has been no change from the reference examination. There is a stable remote infarct in the right basal ganglia. Electronically Signed: Asad Corcoran MD at 17:32 EST ,
--- NOTE | 2022-07-15 16:59 | EX.ED.DYSGE1 ---
HPI History of Present Illness Chief Complaint: Confusion Informant: patient and family Narrative Narrative: Patient presents with daughter for evaluation of confusion and increased agitation. Patient has a history of drug abuse with mental status changes. She was seen in the emergency room yesterday morning after falling in her garage overnight and lying on the ground. If she had a head CT that was unremarkable and right upper extremity x-rays that were unremarkable. Patient was given morphine in the ER. Although she was prescribed oxycodone family did not fill it given her history. Patient reportedly has been sleeping a lot since she was discharged from the ER yesterday morning. Daughter states that the patient called stating that she needed to go the emergency room due to increased right upper extremity pain and swelling. Patient is very agitated saying that she thought her daughter was going with her to help Her dog she does not want to be in the emergency room. She is very adamant that she did not take any nonprescribed medications at home. [facility] Medical History Generalized anxiety disorder History of drug overdose Hyperlipemia Major depressive disorder, recurrent severe without psychotic features Opioid use disorder Seizures Unilateral above knee amputation Home Medications acetaminophen 500 mg tablet 1,000 mg PO BID PRN PRN Pain 05/20/18 [History Last Taken 06/23/19] ascorbic acid (vitamin C) 500 mg tablet (Vitamin C) 1,000 mg PO DAILY supplement 05/20/18 [History Last Taken 06/23/19] aspirin 81 mg tablet,delayed release 81 mg PO DAILY heart health 05/20/18 [History Last Taken 06/23/19] amlodipine 10 mg tablet 10 mg PO DAILY #0 tabs 05/25/21 [Rx Last Taken Unknown] carvedilol 6.25 mg tablet 6.25 mg PO BID #0 tabs 05/25/21 [Rx Last Taken Unknown] buprenorphine HCl 8 mg sublingual tablet 8 mg sublingual BID 07/12/21 [History Last Taken Unknown] docusate sodium 100 mg capsule (Colace) 100 mg PO DAILY 07/12/21 [History Last Taken Unknown] duloxetine 60 mg capsule,delayed release 120 mg PO QHS 07/12/21 [History Last Taken Unknown] loratadine 10 mg capsule 10 mg PO DAILY 07/12/21 [History Last Taken Unknown] pregabalin 150 mg capsule 150 mg PO BID 07/12/21 [History Last Taken Unknown] quetiapine 300 mg tablet 300 mg PO QHS 07/12/21 [History Last Taken Unknown] zinc oxide 20 % topical ointment 1 applic topical PRN PRN redness 07/12/21 [History Last Taken Unknown] oxycodone-acetaminophen 5 mg-325 mg tablet 1 tab PO Q6H PRN PRN Pain 3 days #12 TABLETS 07/14/22 [Rx Last Taken Unknown] Allergy/AdvReac Type Severity Reaction Status Date / Time metoclopramide HCl Allergy shaking Verified 07/15/22 16:18 [From Reglan] prochlorperazine edisylate Allergy Hives Verified 07/15/22 16:18 [From Compazine] prochlorperazine maleate Allergy Hives Verified 07/15/22 16:18 [From Compazine] promethazine HCl Allergy Hives Verified 07/15/22 16:18 [From Phenergan] Social History household members: none Smoking Status: Never smoker alcohol intake: never substance use type: does not use ROS ROS ED Constitutional Constitutional ED: Denies chills or fever(s) Eyes Eyes: Denies change in vision or discharge from eye(s) ENT ENT ED: Denies discharge from eye(s), rhinorrhea or sore throat Cardiovascular Cardiovascular: Denies chest pain or palpitations Respiratory/Chest Respiratory/Chest: Denies cough or dyspnea Gastrointestinal Gastrointestinal: Denies abdominal pain, diarrhea, nausea or vomiting Genitourinary Genitourinary ED: Denies dysuria Musculoskeletal Musculoskeletal: Reports extremity pain; Denies back pain Integumentary Denies Abrasions or rash Neurologic Neurologic: Reports headache(s); Denies weakness Psychiatric Psychiatric: Reports anxiety; Denies depression Allergic/Immunologic Allergic/Immunologic ED: Denies lip swelling or urticaria EXAM Physical Exam Const Vital Signs: 07/15/22 16:17 07/15/22 17:17 07/15/22 19:00 Temperature 97.8 F Temperature Source Temporal Pulse Rate 116 H 100 95 Respiratory Rate 16 16 11 L Blood Pressure 150/98 H 150/100 H Blood Pressure Mean 115 116 Pulse Ox 94 97 96 Oxygen Delivery Method Room Air Room Air Room Air 07/15/22 20:00 07/15/22 21:21 07/15/22 22:00 Temperature Temperature Source Pulse Rate 95 108 H 103 H Respiratory Rate 15 15 16 Blood Pressure 139/95 H 123/78 H 107/78 Blood Pressure Mean 109 93 87 Pulse Ox 98 97 Oxygen Delivery Method Room Air Room Air Positive well nourished and well developed General Appearance ED: well developed HEENT Reports normocephalic and head/scalp atraumatic Eyes PERRL and EOMs intact bilaterally Neck supple Chest Wall inspection of chest normal and palpation of chest normal Resp normal respiratory effort and clear to auscultation bilaterally Cardio regular rhythm Rate: tachycardic GI non-tender Palpation: soft Extremity Extremity Narrative: Right forearm and hand ecchymotic and edematous. Patient able to make a tight fist. No sign of compartment syndrome at this time. Good cap refill and sensation distally. Neuro no sensory deficits noted Sensorium / Orientation: alert Motor Exam: strength 5/5 throughout Psych Psych Narrative: Pressured speech. Mood & Affect: anxious MDM MDM MDM Narrative Medical decision making narrative: Patient sent for repeat CT scan of the head. X-rays of the hand and right forearm are obtained. Lab work obtained along with urinalysis. Patient initially given Tylenol and Zofran. Lab Data Attestation: I reviewed the patient's lab results. Labs: Laboratory Results - last 24 hr 07/15/22 07/15/22 07/15/22 17:08 17:08 17:08 WBC 15.7 H RBC 4.56 Hgb 13.5 Hct 42.2 MCV 92.5 MCH 29.6 MCHC 32.0 RDW Std Deviation 43.9 RDW Coeff of Adilia 13.0 Plt Count 267 MPV 10.8 Immature Gran % (Auto) 0.900 Neut % (Auto) 69.1 Lymph % (Auto) 20.1 [place] % (Auto) 7.3 Eos % (Auto) 1.8 Baso % (Auto) 0.8 Absolute Neuts (auto) 10.8 H Absolute Lymphs (auto) 3.15 Nucleated RBC % 0 Sodium 136 Potassium 4.4 Chloride 103 Carbon Dioxide 28.0 Anion Gap 5 BUN 12 Creatinine 0.78 Estim Creat Clear Calc 62.18 Est GFR (MDRD) Af Amer 97 Est GFR (MDRD) Non-Af 80 BUN/Creatinine Ratio 15.3 Glucose 190 H Calcium 8.6 Total Bilirubin 0.50 Direct Bilirubin 0.06 AST 53 H ALT 39 Alkaline Phosphatase 108 Total Creatine Kinase Total Protein 7.5 Albumin 3.7 Globulin 3.8 Urine Color Urine Clarity Urine pH Ur Specific [place] Urine Protein Urine Glucose (UA) Urine Ketones Urine Occult Blood Urine Nitrite Urine Bilirubin Urine Urobilinogen Ur Leukocyte Esterase Urine RBC Urine WBC Ur Squamous Epith Cells Urine Bacteria Urine Mucus Urine Opiates Screen Urine Methadone Screen Ur Barbiturates Screen Ur Phencyclidine Scrn Ur Amphetamines Screen MDMA (Ecstasy) Screen U Benzodiazepines Scrn Urine Cocaine Screen U Cannabinoids Screen Ur Drug Screen Comment Ethyl Alcohol < 3.0 07/15/22 07/15/22 07/15/22 17:08 20:33 20:33 WBC RBC Hgb Hct MCV MCH MCHC RDW Std Deviation RDW Coeff of [place]ilia Plt Count MPV Immature Gran % (Auto) Neut % (Auto) Lymph % (Auto) [place] % (Auto) Eos % (Auto) Baso % (Auto) Absolute Neuts (auto) Absolute Lymphs (auto) Nucleated RBC % Sodium Potassium Chloride Carbon Dioxide Anion Gap BUN Creatinine Estim Creat Clear Calc Est GFR (MDRD) Af Amer Est GFR (MDRD) Non-Af BUN/Creatinine Ratio Glucose Calcium Total Bilirubin Direct Bilirubin AST ALT Alkaline Phosphatase Total Creatine Kinase 507 H Total Protein Albumin Globulin Urine Color Yellow Urine Clarity Turbid Urine pH 6.0 Ur Specific [place] 1.020 Urine Protein 100 H Urine Glucose (UA) Normal Urine Ketones Negative Urine Occult Blood 50 H Urine Nitrite Negative Urine Bilirubin Negative Urine Urobilinogen Normal Ur Leukocyte Esterase 500 H Urine RBC 0-5 SEEN Urine WBC >100 SEEN Ur Squamous Epith Cells 50-100 SEEN Urine Bacteria 4+ Urine Mucus 0 SEEN Urine Opiates Screen NEGATIVE Urine Methadone Screen NEGATIVE Ur Barbiturates Screen NEGATIVE Ur Phencyclidine Scrn NEGATIVE Ur Amphetamines Screen NEGATIVE MDMA (Ecstasy) Screen NEGATIVE U Benzodiazepines Scrn NEGATIVE Urine Cocaine Screen NEGATIVE U Cannabinoids Screen NEGATIVE Ur Drug Screen Comment Ethyl Alcohol Radiography Diagnostic Testing: Clinical Impression(s) from Imaging Studies Brain CT 07/15/22 16:56 IMPRESSION: No acute intracranial abnormality. There has been no change from the reference examination. There is a stable remote infarct in the right basal ganglia. Electronically Signed: Asad Corcoran MD at 17:32 EST , Forearm X-Ray 07/15/22 22:05 IMPRESSION: Negative right forearm x-rays. Electronically Signed: Asad Corcoran MD at 22:41 EST , Hand X-Ray 07/15/22 22:05 IMPRESSION: Soft tissue swelling with no acute osseous abnormalities right hand. There are degenerative changes with joint space narrowing. There has been no significant change from the reference exam. Electronically Signed: Asad Corcoran MD at 22:52 EST , Treatment and Re-Evaluation Narrative: White count is elevated at 15.7 the patient tends to run an elevated white count. Chemistry studies are unremarkable. LFTs normal. EtOH is less than 3. Urine tox screen is negative. Urinalysis does reveal infection with 4+ bacteria and greater than 100 white cells. Urine is sent for culture and she is given a dose of IV Rocephin. On repeat evaluation patient's confusion is improving. She notes that her daughter brought her to the hospital. She remembers past events well. She is complaining of increased pain to the right upper extremity. She now states that she has some numbness in her hand and forearm. I do have concern for developing compartment syndrome given the patient fell and laid on her right arm for several hours. Arm is currently being elevated and iced. I spoke with our orthopedic physician who states that he does not deal with this and patient need to be transferred. Spoke with Cameron Cadena and patient has been accepted to the ER for evaluation by trauma. Discharge Plan Triage Chief Complaint: Confusion ED Provider: Alona Vazquez Dx/Rx/DC Orders Clinical Impression: Fall, Crushing injury of arm, right, Compartment syndrome, UTI (urinary tract infection) Prescriptions: No Action aspirin 81 MG tablet 81 mg PO DAILY acetaminophen 500 MG tablet 1,000 mg PO BID PRN PRN (Reason: Pain) ascorbic acid (vitamin C) [Vitamin C] 500 MG tablet 1,000 mg PO DAILY amlodipine 10 mg Tablet 10 mg PO DAILY Qty: 0 0RF carvedilol 6.25 mg Tablet 6.25 mg PO BID Qty: 0 0RF quetiapine 300 mg Tablet 300 mg PO QHS zinc oxide 20 % Ointment 1 applic TOPICAL PRN PRN (Reason: redness) docusate sodium [Colace] 100 mg Capsule 100 mg PO DAILY buprenorphine HCl 8 mg Tablet, Sublingual 8 mg SUBLINGUAL BID duloxetine 60 mg Capsule,Delayed Release(Dr/Ec) 120 mg PO QHS pregabalin 150 mg Capsule 150 mg PO BID loratadine 10 mg Capsule 10 mg PO DAILY oxycodone-acetaminophen [oxycodone-acetaminophen] 1 TABLET tablet 1 tab PO Q6H PRN PRN (Reason: Pain) 3 Days Qty: 12 0RF Primary Care Provider: Harshad Karimi Referrals: Harshad Karimi MD [Primary Care Provider] - Disposition Disposition: Acute Care Hospital Discharge Location: [facility]
[2022-07-15 17:17] VITALS: BP 150/100; PULSE 100; RESP 16; O2SAT 97
[2022-07-15 17:17] LABS: Absolute Lymphocyte Count 3.15 X10^3/uL (0.83-4.51); Absolute Neutrophil Count 10.8 X10^3/uL (2.0-7.7); Basophil# 0.12 X10^3/uL; Basophil% 0.8 % (0-1); Eosinophil# 0.28 X10^3/uL; Eosinophils% 1.8 % (0-5); Hematocrit 42.2 % (37-47); Hemoglobin 13.5 g/dL (12.0-15.0); Lymphocyte # 3.15 X10^3/ul (0.83-4.51); Lymphocyte % 20.1 % (19-41); Mean Corpuscular Hgb 29.6 pg (27.0-32.0); Mean Corpuscular Volume 92.5 fL (81-99); Mean Platelet Vol. 10.8 fl (6.2-12.0); Monocyte# 1.14 X10^3/uL; Monocyte% 7.3 % (0-10); NRBC Flagged by Analyzer 0 % (0-5); Neutrophil # 10.82 X10^3/uL (2.7-7.7); Neutrophil % 69.1 % (47-70); Platelet Count 267 K/mm3 (150-450); RBC Distribution Width SD 43.9 fl (35.1-43.9); Red Blood Count 4.56 M/mm3 (4.2-5.4); White Blood Count 15.7 K/mm3 (4.4-11.0)
[2022-07-15 17:43] LABS: AST(SGOT) 53 U/L (15-37); Alanine Aminotransfer ALT/SGPT 39 U/L (13-56); Albumin, Serum 3.7 g/dL (3.2-5.0); Alcohol, Blood (Medical)-Serum < 3.0 mg/dL; Alkaline Phosphatase 108 U/L (45-117); Anion Gap 5 (5-15); BUN 12 mg/dL (7-18); BUN/Creat Ratio 15.3 RATIO (10-20); Bilirubin, Direct 0.06 mg/dL (0.00-0.30); Calcium,Total 8.6 mg/dL (8.5-10.1); Chloride 103 mmol/L (98-107); Creatinine, Serum 0.78 mg/dL (0.55-1.02); EST Glomerular Filtration Rate 80 mL/min (>60); Est Glom Filt Rate - Afr Amer 97 mL/min (>60); Estimated Creatinine Clearance 62.18 ml/min; Globulin 3.8 g/dL (2.2-4.2); Glucose 190 mg/dL (74-106); Potassium 4.4 mmol/L (3.5-5.1); Protein, Total 7.5 g/dL (6.4-8.2); Sodium Level 136 mmol/L (136-145)
[2022-07-15 18:03] LABS: CPK Total, Creatine Kinase 507 U/L (26-192)
[2022-07-15] MEDS: Ondansetron ODT 4 MG Tablet PO (18:22)
[2022-07-15] MEDS: Acetaminophen 500 MG Tablet 1000 MG PO (18:22)
[2022-07-15 19:00] VITALS: PULSE 95; RESP 11; O2SAT 96
[2022-07-15 20:00] VITALS: BP 139/95; PULSE 95; RESP 15; O2SAT 98
[2022-07-15 20:37] LABS: Mucous, Urine 0 SEEN /hpf (<or=2+)
[2022-07-15 20:42] LABS: Color, Urine Yellow (Yellow); Glucose, Dipstick Normal (Normal); Ketone-Dipstick Negative (Negative); Leukocyte Esterase-Dipstick 500 /ul (Negative); Nitrite-Dipstick Negative (Negative); Occult Blood-Urine 50 /ul (Negative); Protein-Dipstick 100 mg/dl (Negative); Urine Bilirubin Dipstick Negative (Negative); Urine Clarity Turbid (Clear); Urine Urobilinogen Normal (Normal)
[2022-07-15 20:58] LABS: Squamous Epithelial Cells - UA 50-100 SEEN /hpf (5-10)
[2022-07-15 20:59] LABS: Bacteria 4+ /hpf (None Seen); White Blood Cells >100 SEEN /hpf (0-5)
[2022-07-15 21:01] LABS: Red Blood Cells-Urine 0-5 SEEN /hpf (0-5)
[2022-07-15 21:10] LABS: Amphetamine Urine VISTA NEGATIVE (<1000 ng/mL); Barbiturate Urine VISTA NEGATIVE (< 200 ng/mL); Benzodiazepine Urine VISTA NEGATIVE (< 200 ng/mL); Cocaine Urine VISTA NEGATIVE (< 300 ng/mL); Ecstacy Urine VISTA NEGATIVE (< 500 ng/mL); Methadone Urine VISTA NEGATIVE (< 300 ng/mL); PCP Urine VISTA NEGATIVE (< 25 ng/mL); THC Urine VISTA NEGATIVE (< 50 ng/mL); Vista UDS pH Range 5
[2022-07-15 21:21] VITALS: BP 123/78; PULSE 108; RESP 15
[2022-07-15 22:00] VITALS: BP 107/78; PULSE 103; RESP 16; O2SAT 97
--- NOTE | 2022-07-15 22:05 | RAD_ITS ---
EXAM: XR RIGHT FOREARM, 2 VIEWS CLINICAL INDICATION: injury TECHNIQUE: Frontal and lateral views of the right forearm. This report was created using [employer] report generation technology. COMPARISON: None. FINDINGS: BONES/JOINTS: Unremarkable. No acute fracture. No dislocation. SOFT TISSUES: Unremarkable. RAD/Forearm 2 Views IMPRESSION: Negative right forearm x-rays. Electronically Signed: Asad Corcoran MD at 22:41 EST ,
--- NOTE | 2022-07-15 22:05 | RAD_ITS ---
EXAM: XR RIGHT HAND COMPLETE, 3 OR MORE VIEWS CLINICAL INDICATION: injury TECHNIQUE: Frontal, lateral and oblique views of the right hand. This report was created using [employer] report generation technology. COMPARISON: 07/14/2022 FINDINGS: BONES/JOINTS: There are severe degenerative changes with narrowing of the distal interphalangeal joints greatest in the second and third fingers. No acute fracture. No subluxation. Normal alignment. No sclerotic or destructive changes observed. SOFT TISSUES: There is soft tissue swelling over the dorsum of the hand. No radiopaque foreign body. RAD/Hand Min 3 Views IMPRESSION: Soft tissue swelling with no acute osseous abnormalities right hand. There are degenerative changes with joint space narrowing. There has been no significant change from the reference exam. Electronically Signed: Asad Corcoran MD at 22:52 EST ,
[2022-07-15] MEDS: Ketorolac 30 MG/ML Syringe IV (22:14)
[2022-07-15] MEDS: Cephalexin 250 MG Capsule 500 MG PO (22:14)
[2022-07-15] MEDS: Morphine 2 MG/ML Syringe IV (22:15)
--- NOTE | 2022-07-15 22:33 | ED.RN ---
ATTEMPTED MULTIPLE TIMES TO KEEP PT RIGHT ARM/HAND ELEVATED AND ICE ON. PT VERY FIDGETY, MOVING ARM AND LETTING ICE FALL OFF. DR. BRICE UPDATED.
[2022-07-16] VITALS: BP 145/94; PULSE 112; RESP 15; O2SAT 97
[2022-07-16] MEDS: 0.9% Normal Saline 1,000 ML 150 ML IV
[2022-07-16] MEDS: Ondansetron 4 MG/2 ML Vial IV
--- NOTE | 2022-07-16 00:31 | ED.RN ---
RHETT GUZMÁN UPDATED ON PT TRANSFER.
[2022-07-16 01:00] VITALS: BP 131/91; PULSE 100; RESP 19; O2SAT 97
[2022-07-16 02:00] VITALS: BP 138/82; PULSE 100; RESP 16; O2SAT 98
[2022-07-16] MEDS: Morphine 4 MG/ML Syringe IV ×2 (02:16)
[2022-07-16 02:31] VITALS: BP 133/93; PULSE 100; RESP 16; O2SAT 98
== END 2022-07-16 02:39 | disposition short-term general hospital (02) ==
PROVIDERS: Emergency Provider Emergency Medicine; PCP Family Medicine; Visit Provider Emergency Medicine
DX: S47.1XXA Crushing injury of right shoulder and upper arm, initial encounter (principal); T79.A0XA Compartment syndrome, unspecified, initial encounter; N39.0 Urinary tract infection, site not specified; E78.5 Hyperlipidemia, unspecified; R41.82 Altered mental status, unspecified; X58.XXXA Exposure to other specified factors, initial encounter
CPT/HCPCS: 70450; 73090; 73130; 80048; 80076; 80307; 81001; 82077; 82550; 85025; 87086; 87088; 96361; 96374; 96375; 96376; 99285; J7030; A4216; J2405

== ENCOUNTER 2022-07-23 07:34 | Emergency (ER) | payer OTHER, SELFPAY ==
[2022-07-23 07:34] VITALS: BP 148/92; PULSE 107; RESP 16; TEMP 37.4; O2SAT 97; BMI 40.5
[2022-07-23 07:37] VITALS: BP 148/92; PULSE 106; RESP 16; TEMP 37.4; O2SAT 95
--- NOTE | 2022-07-23 07:58 | EDS_ITS ---
HPI History of Present Illness HPI Narrative: Right hand pain and swelling concern for infection after compartment syndrome surgery on July [address] [facility]. 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 She has a history of depression. Around Day she fell from her wheelchair dislocated her right shoulder. Was seen in the emergency department. Later developed a compartment syndrome was sent up to [facility] on July 15 and had a surgery done for compartment syndrome of her right wrist and hand. Had been doing well. The last several days has had subjective fever, chills and body aches. No cough. No vomiting but nausea. She was concerned that her hand might be infected. She has had numbness in her hand since the surgery. Prior to the fall and the compartment syndrome she had a normal functioning right upper extremity. She is right-hand dominant. Prior similar symptoms: Yes Recent Illness/Hospitalization: Yes [facility] Medical History (Updated 07/23/22 @ 08:[address] Sukhjinder Palencia MD) Generalized anxiety disorder History of drug overdose Hyperlipemia Major depressive disorder, recurrent severe without psychotic features Opioid use disorder Seizures Unilateral above knee amputation Home Medications acetaminophen 500 mg tablet 1,000 mg PO BID PRN PRN Pain 05/20/18 [History Last Taken 06/23/19] ascorbic acid (vitamin C) 500 mg tablet (Vitamin C) 1,000 mg PO DAILY supplement 05/20/18 [History Last Taken 06/23/19] aspirin 81 mg tablet,delayed release 81 mg PO DAILY heart health 05/20/18 [History Last Taken 06/23/19] amlodipine 10 mg tablet 10 mg PO DAILY #0 tabs 05/25/21 [Rx Last Taken Unknown] carvedilol 6.25 mg tablet 6.25 mg PO BID #0 tabs 05/25/21 [Rx Last Taken Unknown] buprenorphine HCl 8 mg sublingual tablet 8 mg sublingual BID 07/12/21 [History Last Taken Unknown] docusate sodium 100 mg capsule (Colace) 100 mg PO DAILY 07/12/21 [History Last Taken Unknown] duloxetine 60 mg capsule,delayed release 120 mg PO QHS 07/12/21 [History Last Taken Unknown] loratadine 10 mg capsule 10 mg PO DAILY 07/12/21 [History Last Taken Unknown] pregabalin 150 mg capsule 100 mg PO TID 07/12/21 [History Last Taken Unknown] quetiapine 300 mg tablet 300 mg PO QHS 07/12/21 [History Last Taken Unknown] zinc oxide 20 % topical ointment 1 applic topical PRN PRN redness 07/12/21 [History Last Taken Unknown] oxycodone-acetaminophen 5 mg-325 mg tablet 1 tab PO Q6H PRN PRN Pain 3 days #12 TABLETS 07/14/22 [Rx Last Taken Unknown] Allergy/AdvReac Type Severity Reaction Status Date / Time metoclopramide HCl Allergy shaking Verified 07/15/22 16:18 [From Reglan] prochlorperazine edisylate Allergy Hives Verified 07/15/22 16:18 [From Compazine] prochlorperazine maleate Allergy Hives Verified 07/15/22 16:18 [From Compazine] promethazine HCl Allergy Hives Verified 07/15/22 16:18 [From Phenergan] Surgical History (Updated 07/23/22 @ 08:[address] Sukhjinder Palencia MD) H/O wrist surgery Social History household members: none Smoking Status: Never smoker alcohol intake: never substance use type: does not use ROS ROS ED ROS Narrative Subjective fever and chills. Review of Systems ROS Unobtainable: Denies due to encephalopathy Constitutional Constitutional ED: Reports chills, fever(s) and subjective Eyes Eyes: Denies blurry vision ENT ENT ED: Denies ear pain Cardiovascular Cardiovascular: Denies chest pain Respiratory/Chest Respiratory/Chest: Denies cough or dyspnea Gastrointestinal Gastrointestinal: Reports nausea; Denies abdominal pain, constipation, diarrhea, melena or vomiting Genitourinary Genitourinary ED: Denies dysuria or hematuria Musculoskeletal Musculoskeletal: Denies back pain or myalgias Integumentary Denies abscess Neurologic Neurologic: Denies headache(s) Psychiatric Psychiatric: Denies anxiety Endocrine Endocrinology: Denies cold intolerance Hematologic/Lymphatic Hematologic/Lymphatic: Denies easy bleeding or easy bruising Allergic/Immunologic Allergic/Immunologic ED: Denies mouth swelling EXAM Physical Exam Narrative Exam Narrative: 57-year-old female. Vital signs are stable. Temperature nine 9.3. Does not look septic or toxic. H EENT exam unremarkable. Moist mucous membranes. Neck nontender. Lungs clear to auscultation. Heart regular rhythm rate about 105. No murmur. Chest wall nontender. Abdomen soft nontender. Abdominal injury moving all all extremities. 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 Her right fourth arm was in a anterior splint and dressing that was taken down she has multilayer surgical incisions. That all appear to be infected without redness, warmth, swelling and cellulitis. A [place] is placed hand fingers wrist and forearm are all swollen. And that she said that you do not right lower hand is warm to touch. It looks she has versus pulmonary contusion with loss of sensation in all digits of right hand but her thumb. She states this has been this way since the initial compartment syndrome. She has no lymphangitic streaking. The redness and swelling is up to her mid forearm. There is no axillary lymphadenopathy. She has decreased range of motion of the digits of her hand. Decreased strength. Again that is all from the initial compartment syndrome. Const Vital Signs: 07/23/22 07:34 07/23/22 07:37 Temperature 99.3 F H 99.3 F H Temperature Source Oral Oral Pulse Rate 107 H 106 H Respiratory Rate 16 16 Blood Pressure 148/92 H 148/92 H Blood Pressure Mean 110 110 Pulse Ox 97 95 Oxygen Delivery Method Room Air Room Air Positive well nourished, well developed and obese; Negative for cachectic, contractures or unkempt General Appearance ED: well developed and NAD; Negative for unkempt, cachectic, contractures, cyanotic or diaphoretic Nutritional Appearance: obese; Negative for cachectic HEENT Reports moist mucous membranes normocephalic and atraumatic; Negative for trauma or tenderness Eyes PERRL and EOMs intact bilaterally General Eye ED: Negative for other Neck full ROM and supple General: Negative for tenderness Chest Wall inspection of chest normal and palpation of chest normal Chest: Negative for other Resp normal respiratory effort and clear to auscultation bilaterally Effort and Inspection: Negative for pain with movement Auscultation: Negative for rales, rhonchi or wheezes Cardio regular rhythm, S1 normal heart sound, S2 normal heart sound and no murmurs; Negative for regular rate Rate: tachycardic; Negative for bradycardia GI non-tender, non-distended and no masses Inspection: Negative for abdominal distention Auscultation: normoactive bowel sounds Palpation: soft; Negative for tender Back/Spine no CVA tenderness General Back: Negative for CVA tenderness Cervical Spine: Negative for cervical spine tenderness Thoracic Spine / Upper Back: Negative for thoracic spinal tenderness Lumbar Spine / Lower Back: Negative for lumbar spinal tenderness Extremity Negative for normal to inspection or full ROM Extremity Narrative: Right hand multiple surgical incisions on the dorsal and volar surface of the wrist and hand. The hand is red consistent with cellulitis. Swollen. Tender. She has decreased range of motion of both the wrist and the digits of the hand. That has been ongoing since her initial compartment syndrome about 9 days ago. Appears to be obviously infected and cellulitic. Goes from the hand all the way up to the mid forearm. There is no lymphangitic streak streaks into the upper arm nor is there any axillary lymphadenopathy. She has decreased to no sensation in the 4 fingers. The thumb she does have sensation. The entire hand is warm. Due to the amount of swelling she will palpate the radial pulse but the hand is warm. Does not appear to be ischemic. 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 General Extremety ED: Yes edema General Extremity: edema Neuro oriented x3, No no focal motor deficits and No no sensory deficits noted Neuro Narrative: Motor loss in the right hand. Strength loss in the right hand. Decreased and loss of sensation in the right hand that is from the prior compartment. Sensorium / Orientation: alert and oriented to person Motor Exam: strength abnormal; Negative for strength 5/5 throughout or muscle tone normal throughout Psych mental status grossly normal Appearance: Negative for unkempt Attitude: No agitated Mood & Affect: Negative for depressed, anxious or tearful Skin Skin Narrative: Cellulitis right hand at the surgical incision sites. General Skin Exam: Negative for petechiae Lesions: no lesions Rashes: No no rashes Trauma: no lacerations or abrasions MDM MDM MDM Narrative Medical decision making narrative: 57-year-old female with a history of a prior sarcoma socially which she wears her left leg amputated. Had a recent fall and developed a compartment syndrome in her right upper extremity. Had surgery on July [address] [facility]. Presents today with more pain, redness and swelling consistent with a postop infection. She will be started on IV Unasyn. Dilaudid for pain and Zofran for nausea. Screening labs will be obtained. I have already reached out to [facility] transfer line to send the patient back to their facility for their international trade specialist to reevaluate the hand and the infection. She has nerve damage in the right upper extremity from the prior compartment syndrome. She has both loss of strength and sensation in the right hand from the prior injury 9 days ago. She is left-hand dominant. I spoke to [facility] transfer line. They have excepted him ER to ER. I spoke with her ER physician Dr. Earl. Patient was started on IV Unasyn. She has been given Zofran for nausea and Dilaudid for pain. Or awaiting transfer to [facility]. Lab Data Attestation: I reviewed the patient's lab results. Lab results narrative: White count elevated 14.6. H&H is 10.2 and 31. Chemistries show a normal BUN and creatinine. Anion gap is 6. Glucose of 120. Discharge Plan Triage Chief Complaint: Wound ED Provider: Sukhjinder Palencia Dx/Rx/DC Orders Clinical Impression: Cellulitis of hand, right, Compartment syndrome of hand, History of hand surgery, History of sarcoma Prescriptions: No Action aspirin 81 MG tablet 81 mg PO DAILY acetaminophen 500 MG tablet 1,000 mg PO BID PRN PRN (Reason: Pain) ascorbic acid (vitamin C) [Vitamin C] 500 MG tablet 1,000 mg PO DAILY amlodipine 10 mg Tablet 10 mg PO DAILY Qty: 0 0RF carvedilol 6.25 mg Tablet 6.25 mg PO BID Qty: 0 0RF quetiapine 300 mg Tablet 300 mg PO QHS zinc oxide 20 % Ointment 1 applic TOPICAL PRN PRN (Reason: redness) docusate sodium [Colace] 100 mg Capsule 100 mg PO DAILY buprenorphine HCl 8 mg Tablet, Sublingual 8 mg SUBLINGUAL BID duloxetine 60 mg Capsule,Delayed Release(Dr/Ec) 120 mg PO QHS pregabalin 150 mg Capsule 100 mg PO TID loratadine 10 mg Capsule 10 mg PO DAILY oxycodone-acetaminophen [oxycodone-acetaminophen] 1 TABLET tablet 1 tab PO Q6H PRN PRN (Reason: Pain) 3 Days Qty: 12 0RF Primary Care Provider: Harshad Karimi Referrals: Harshad Karimi MD [Primary Care Provider] - Disposition Disposition: Acute Care Hospital
--- NOTE | 2022-07-23 07:58 | NURSING ---
calling [facility] for transfer
[2022-07-23] MEDS: HYDROmorphone 1 MG/ML Syringe IV (08:12)
[2022-07-23] MEDS: Ondansetron 4 MG/2 ML Vial IV (08:12)
[2022-07-23 08:23] LABS: Absolute Neutrophil Count 10.5 X10^3/uL (2.0-7.7); Basophil# 0.07 X10^3/uL; Basophil% 0.5 % (0-1); Eosinophil# 0.29 X10^3/uL; Hematocrit 31.7 % (37-47); Hemoglobin 10.2 g/dL (12.0-15.0); Lymphocyte % 16.4 % (19-41); Mean Corp Hgb Conc 32.2 g/dL (32-36); Mean Corpuscular Hgb 29.9 pg (27.0-32.0); Mean Platelet Vol. 10.5 fl (6.2-12.0); Monocyte# 1.26 X10^3/uL; Monocyte% 8.6 % (0-10); NRBC Flagged by Analyzer 0 % (0-5); Neutrophil % 71.8 % (47-70); Platelet Count 249 K/mm3 (150-450); RBC Distribution Width CV 13.3 % (11.6-14.6); RBC Distribution Width SD 44.8 fl (35.1-43.9); Red Blood Count 3.41 M/mm3 (4.2-5.4); White Blood Count 14.6 K/mm3 (4.4-11.0)
[2022-07-23 08:36] LABS: Anion Gap 6 (5-15); BUN 9 mg/dL (7-18); BUN/Creat Ratio 12.8 RATIO (10-20); Calcium,Total 8.5 mg/dL (8.5-10.1); Chloride 98 mmol/L (98-107); EST Glomerular Filtration Rate 91 mL/min (>60); Est Glom Filt Rate - Afr Amer 110 mL/min (>60); Estimated Creatinine Clearance 72.47 ml/min; Glucose 120 mg/dL (74-106); Sodium Level 134 mmol/L (136-145)
[2022-07-23 08:39] VITALS: BP 138/78; PULSE 78; RESP 16; TEMP 37.3; O2SAT 99
--- NOTE | 2022-07-23 08:50 | NURSING ---
CALLED [facility], ETA IS 90 MIN
[2022-07-23 09:00] VITALS: BP 137/78; PULSE 78; RESP 16; TEMP 37.3; O2SAT 98
[2022-07-23] MEDS: Ketorolac 30 MG/ML Syringe IV (10:03)
[2022-07-23 10:26] VITALS: BP 138/74; PULSE 72; RESP 16; TEMP 37.2; O2SAT 97
--- NOTE | 2022-07-23 10:37 | ED.RN ---
pt is very upset because she wants more pain medicine and feels we are treating her unfairly and like a number. explained [facility] will medicate her further as they feel necessary. pt again stated that we were rude. apologized and again emphasized her receiving facility and drs will continue medications
== END 2022-07-23 10:39 | disposition short-term general hospital (02) ==
PROVIDERS: Emergency Provider Emergency Medicine; PCP Family Medicine; Visit Provider Emergency Medicine
DX: T79.A11A Traumatic compartment syndrome of right upper extremity, initial encounter (principal); S43.004A Unspecified dislocation of right shoulder joint, initial encounter; R11.0 Nausea; E78.5 Hyperlipidemia, unspecified; F32.A Depression, unspecified; L03.113 Cellulitis of right upper limb; W05.0XXA Fall from non-moving wheelchair, initial encounter
CPT/HCPCS: 80048; 85025; 96365; 96366; 96375; 99285; J7030; J0295; J2405

== ENCOUNTER 2022-08-25 15:36 | Emergency (ER) | payer OTHER, SELFPAY ==
[2022-08-25 15:38] VITALS: BP 158/118; PULSE 118; RESP 18; TEMP 36.4; O2SAT 97; BMI 31.8
--- NOTE | 2022-08-25 15:57 | EDS_ITS ---
HPI History of Present Illness Chief Complaint: Wound Check Narrative Narrative: 57-year-old female with history of compartment syndrome in the right wrist about a month ago. Patient mechanical fall at that time. She was seen in the emergency room. She had negative x-rays over the next day had more swelling and numbness. Ultimately she was transferred in to [place] to [facility]. She was diagnosed with compartment syndrome and had surgery at that time. Patient ultimately seen here again on the and had an infection postoperatively. She was sent back to [facility]. She was seen by the plastic surgeon (Dr. Jeter). She states she was initially on Levaquin and Keflex. She notes that her hand is more swollen and wrist is more tender. She states that the sutures that are in her right wrist are supposed to come out next week however they are embedded in her wound. She noticed redness along the surgical site. [facility] Medical History Generalized anxiety disorder History of drug overdose Hyperlipemia Major depressive disorder, recurrent severe without psychotic features Opioid use disorder Seizures Unilateral above knee amputation Home Medications acetaminophen 500 mg tablet 1,000 mg PO BID PRN PRN Pain 05/20/18 [History Last Taken 06/23/19] ascorbic acid (vitamin C) 500 mg tablet (Vitamin C) 1,000 mg PO DAILY supplement 05/20/18 [History Last Taken 06/23/19] aspirin 81 mg tablet,delayed release 81 mg PO DAILY heart health 05/20/18 [History Last Taken 06/23/19] amlodipine 10 mg tablet 10 mg PO DAILY #0 tabs 05/25/21 [Rx Last Taken Unknown] carvedilol 6.25 mg tablet 6.25 mg PO BID #0 tabs 05/25/21 [Rx Last Taken Unknown] buprenorphine HCl 8 mg sublingual tablet 8 mg sublingual BID 07/12/21 [History Last Taken Unknown] docusate sodium 100 mg capsule (Colace) 100 mg PO DAILY 07/12/21 [History Last Taken Unknown] duloxetine 60 mg capsule,delayed release 120 mg PO QHS 07/12/21 [History Last Taken Unknown] loratadine 10 mg capsule 10 mg PO DAILY 07/12/21 [History Last Taken Unknown] pregabalin 150 mg capsule 100 mg PO TID 07/12/21 [History Last Taken Unknown] quetiapine 300 mg tablet 300 mg PO QHS 07/12/21 [History Last Taken Unknown] zinc oxide 20 % topical ointment 1 applic topical PRN PRN redness 07/12/21 [History Last Taken Unknown] oxycodone-acetaminophen 5 mg-325 mg tablet 1 tab PO Q6H PRN PRN Pain 3 days #12 TABLETS 07/14/22 [Rx Last Taken Unknown] cephalexin 500 mg capsule 500 mg PO Q6 #40 CAPSULES 08/25/22 [Rx Last Taken Unknown] levofloxacin 750 mg tablet 750 mg PO DAILY #5 tabs 08/25/22 [Rx Last Taken Unknown] Allergy/AdvReac Type Severity Reaction Status Date / Time metoclopramide HCl Allergy shaking Verified 08/25/22 15:42 [From Reglan] prochlorperazine edisylate Allergy Hives Verified 08/25/22 15:42 [From Compazine] prochlorperazine maleate Allergy Hives Verified 08/25/22 15:42 [From Compazine] promethazine HCl Allergy Hives Verified 08/25/22 15:42 [From Phenergan] Surgical History H/O wrist surgery Social History household members: none Smoking Status: Never smoker alcohol intake: never substance use type: does not use ROS ROS ED Review of Systems ROS Unobtainable: Denies due to encephalopathy Constitutional Constitutional ED: Denies chills or fever(s) Eyes Eyes: Denies change in vision ENT ENT ED: Denies rhinorrhea or sore throat Cardiovascular Cardiovascular: Denies chest pain or palpitations Respiratory/Chest Respiratory/Chest: Denies cough or dyspnea Gastrointestinal Gastrointestinal: Denies abdominal pain, nausea or vomiting Genitourinary Genitourinary ED: Denies dysuria or hematuria Musculoskeletal Musculoskeletal: Reports other Details: Right hand pain/wrist pain Integumentary Reports other Details: Right wrist surgical wound erythema, tenderness. ; Denies abscess Neurologic Neurologic: Denies headache(s) EXAM Physical Exam Const Vital Signs: 08/25/22 15:38 Temperature 97.5 F L Temperature Source Temporal Pulse Rate 118 H Respiratory Rate 18 Blood Pressure 158/118 H Blood Pressure Mean 131 Pulse Ox 97 Oxygen Delivery Method Room Air MDM MDM MDM Narrative Medical decision making narrative: 57-year-old female status post compartment syndrome status post postop infection with washout by Dr. Jeter at [facility]. Patient states she did start taking Keflex because her hand is more swollen. She states he talked to his son who is a physician and told her to start this. No documented fevers. Follow-up with no new trauma. She states her hand is more swollen and the suture line where in her right wrist is definitely more erythematous. Her sutures are now embedded in her wound due to edema. Compartments appear to be soft however. Hand religious activities director strength normal. Mild decrease sensation however patient has complex history and surgical in the right hand and wrist I have no comparison. Brisk cap refill to all 5 fingers. No lymphangitic streaking. CBC for white blood cell count, hemoglobin, platelets, differential. CMP for liver function, renal function, electrolytes, glucose, anion gap. ESR and CRP for inflammation. X-rays of the right hand, right wrist are obtained as well. Patient medicated with Dilaudid 1.5 mg and Zofran 4 mg IV. I did make a call out for Dr. Jeter At 1600. I do I do suspect that a postoperative hand infection could be probable, however I do not suspect compartment syndrome. I spoke with Dr. Jeter who stated that she has had some erythema on her wrist previously. He called delayed healing erythema. He states that she has had multiple work-ups for this and ultimately everything has been fairly normal. She did at one point grow out Pseudomonas and Staph aureus. He stated that if her blood work was okay that she could be sent home on Levaquin and Keflex and he would see her in the office on Friday. CBC shows a slight leukocytosis at 12.4 but this is actually lower than previous. There is no left shift. ESR is normal at 22. Renal function, electrolytes all within normal limits. CRP is 10.8. This is actually lower than previously. X-rays of the right hand and right wrist show no acute abnormalities on my interpretation. Radiology interpreted this and agrees. Given this I feel the patient is stable for discharge home on antibiotics. I will start her on Levaquin and Keflex. She is to follow-up with Dr. Jeter in office. Return precautions discussed. Impression: 1. Postop wound check Lab Data Attestation: I reviewed the patient's lab results. Discharge Plan Triage Chief Complaint: Wound Check Other Complaint: Upper Extremity Injury ED Provider: Bladimir Aiken Dx/Rx/DC Orders Instructions: ED Post Op Wound Check, Pain Prescriptions: New levofloxacin 750 mg tablet 750 mg PO DAILY Qty: 5 0RF cephalexin 500 mg capsule 500 mg PO Q6 Qty: 40 0RF No Action aspirin 81 MG tablet 81 mg PO DAILY acetaminophen 500 MG tablet 1,000 mg PO BID PRN PRN (Reason: Pain) ascorbic acid (vitamin C) [Vitamin C] 500 MG tablet 1,000 mg PO DAILY amlodipine 10 mg Tablet 10 mg PO DAILY Qty: 0 0RF carvedilol 6.25 mg Tablet 6.25 mg PO BID Qty: 0 0RF quetiapine 300 mg Tablet 300 mg PO QHS zinc oxide 20 % Ointment 1 applic TOPICAL PRN PRN (Reason: redness) docusate sodium [Colace] 100 mg Capsule 100 mg PO DAILY buprenorphine HCl 8 mg Tablet, Sublingual 8 mg SUBLINGUAL BID duloxetine 60 mg Capsule,Delayed Release(Dr/Ec) 120 mg PO QHS pregabalin 150 mg Capsule 100 mg PO TID loratadine 10 mg Capsule 10 mg PO DAILY oxycodone-acetaminophen [oxycodone-acetaminophen] 1 TABLET tablet 1 tab PO Q6H PRN PRN (Reason: Pain) 3 Days Qty: 12 0RF Primary Care Provider: Harshad Karimi Referrals: Harshad Karimi MD [Primary Care Provider] - Disposition Disposition: Home, Self Care
[2022-08-25] MEDS: Ondansetron 4 MG/2 ML Vial IV (16:49)
[2022-08-25] MEDS: HYDROmorphone 0.5 MG/0.5 ML SYRINGE IV (16:49)
--- NOTE | 2022-08-25 16:50 | RAD_ITS ---
STUDY: X-RAY - RIGHT WRIST REASON FOR EXAM: Female, 57 years old. Pain. Surgery last month the hand with continued problem infection. Swelling and redness. TECHNIQUE: 3 view(s) of the wrist were obtained. COMPARISON: Right hand, August 25, 2022 and right wrist, July 14, 2022. FINDINGS: Normal visualized distal radius and ulna. There is degenerative arthrosis of the radiocarpal articulation. Normal distal radioulnar articulation. Normal carpal bones. Normal carpal articulations. There is degenerative arthrosis of the carpometacarpal articulation of the thumb. Normal second through fifth carpometacarpal articulations. Normal visualized metacarpal bones. Marked soft tissue swelling about the distal forearm wrist and base of the hand. RAD/Wrist min 3 Views IMPRESSION: 1. Soft tissue swelling with mild stable degenerative changes of wrist. There is no interval change. Electronically Signed: Jc Lovett DO at 17:29 EST ,
--- NOTE | 2022-08-25 17:05 | RAD_ITS ---
STUDY: X-RAY - RIGHT HAND REASON FOR EXAM: Female, 57 years old. Recent compartment syndrome at outside hospital. Concern for swelling and redness in right hand and wrist. Surgery to the hand last month. Has had problems with infection since surgery. TECHNIQUE: 3 view(s) of the hand. COMPARISON: July 15, 2022 FINDINGS: Normal radiocarpal articulation. Normal distal radioulnar joint. Normal visualized carpal bones. Normal carpal articulations There is degenerative arthrosis of the carpometacarpal (CMC) articulation of the thumb. Normal second through fifth carpometacarpal joints. Normal metacarpi. Normal metacarpophalangeal joint of the thumb. Normal interphalangeal joint of the thumb. Normal proximal and distal phalanges of the thumb. Normal metacarpophalangeal joints of the second through fifth fingers. There is diffuse articular joint space narrowing of the proximal and distal interphalangeal joints of the second through fifth fingers, but without erosive changes or periarticular soft tissue swelling. Normal phalanges of the second through fifth fingers. New mild soft tissue swelling about the base of the hand. This appears unchanged from prior study. RAD/Hand Min 3 Views IMPRESSION: Soft tissue swelling of the base of the hand and wrist without change from prior study. There is no change in osseous or articular findings. Electronically Signed: Jc Lovett DO at 17:27 EST Reading Location ID and State: [address] [place] [address] Tel [phone], Service support ,
[2022-08-25 17:23] LABS: Absolute Lymphocyte Count 3.15 X10^3/uL (0.83-4.51); Absolute Neutrophil Count 7.8 X10^3/uL (2.0-7.7); Basophil% 0.8 % (0-1); Eosinophil# 0.37 X10^3/uL; Hematocrit 38.8 % (37-47); Hemoglobin 12.3 g/dL (12.0-15.0); Lymphocyte # 3.15 X10^3/ul (0.83-4.51); Lymphocyte % 25.4 % (19-41); Mean Corp Hgb Conc 31.7 g/dL (32-36); Mean Corpuscular Hgb 28.7 pg (27.0-32.0); Mean Corpuscular Volume 90.4 fL (81-99); Mean Platelet Vol. 10.5 fl (6.2-12.0); Monocyte# 0.98 X10^3/uL; Monocyte% 7.9 % (0-10); NRBC Flagged by Analyzer 0 % (0-5); Neutrophil # 7.77 X10^3/uL (2.7-7.7); Neutrophil % 62.6 % (47-70); Platelet Count 268 K/mm3 (150-450); RBC Distribution Width CV 12.8 % (11.6-14.6); RBC Distribution Width SD 42.3 fl (35.1-43.9); Red Blood Count 4.29 M/mm3 (4.2-5.4); White Blood Count 12.4 K/mm3 (4.4-11.0)
[2022-08-25 17:45] LABS: Erythrocyte Sedimentation Rate 22 mm/hr (0-30)
[2022-08-25 17:49] LABS: ALB/GLOB Ratio 0.9 RATIO (0.9-2.4); AST(SGOT) 19 U/L (15-37); Alanine Aminotransfer ALT/SGPT 27 U/L (13-56); Albumin, Serum 3.4 g/dL (3.2-5.0); Alkaline Phosphatase 86 U/L (45-117); Anion Gap 4 (5-15); BUN 9 mg/dL (7-18); BUN/Creat Ratio 12.8 RATIO (10-20); Calcium,Total 9.1 mg/dL (8.5-10.1); Chloride 109 mmol/L (98-107); EST Glomerular Filtration Rate 91 mL/min (>60); Est Glom Filt Rate - Afr Amer 110 mL/min (>60); Estimated Creatinine Clearance 72.47 ml/min; Globulin 3.9 g/dL (2.2-4.2); Glucose 125 mg/dL (74-106); Potassium 3.9 mmol/L (3.5-5.1); Protein, Total 7.3 g/dL (6.4-8.2); Sodium Level 142 mmol/L (136-145)
[2022-08-25 18:25] VITALS: BP 153/92; PULSE 87; RESP 18; O2SAT 99
== END 2022-08-25 19:03 | disposition home or self-care (01) ==
PROVIDERS: Emergency Provider Student in an Organized Health Care Education/Training Program; PCP Family Medicine; Visit Provider Student in an Organized Health Care Education/Training Program
DX: M25.531 Pain in right wrist (principal); R60.9 Edema, unspecified; E78.5 Hyperlipidemia, unspecified; Z48.01 Encounter for change or removal of surgical wound dressing
CPT/HCPCS: 73110; 73130; 80053; 85025; 85652; 86140; 96374; 96375; 99282; J2405

== ENCOUNTER 2022-08-26 23:10 | Inpatient (IN) | payer OTHER, SELFPAY ==
[2022-08-26 23:11] VITALS: BP 158/100; PULSE 98; RESP 18; TEMP 36.9; O2SAT 97; BMI 39.8
--- NOTE | 2022-08-27 00:13 | EX.ED.UPPERE ---
HPI History of Present Illness Chief Complaint: Upper Extremity Injury Informant: patient Narrative Narrative: Patient is a 57-year-old female with complex medical history including recent compartment syndrome of her right hand/upper extremity that was complicated by wound dehiscence and a postoperative infection. Patient was most recently discharged from [facility] (Dr. Jeter, plastic surgery has been managing her). Patient is returning to emergency room with concern of fevers today, flulike symptoms, generalized malaise and nausea. She has increased redness, swelling and pain of her right upper extremity. She is currently on a course of Levaquin but continues to feel worse. She was most recently discharged from [facility] On 08/17 where she was receiving IV antibiotics (Zosyn and vancomycin). Patient was seen in our ER yesterday for concern of increased hand swelling and wrist tenderness. The ER physician spoke to the patient and surgeon who thought she had delayed healing erythema but she was restarted on Levaquin and Keflex and will follow-up in the office on Friday (later today now). She has been taking the antibiotics but continues to feel that she is worsening. She spoke to her surgeon who recommended she come to her local ER to be evaluated further. Patient notes she had recently also had a blister on the hand incision that opened and drained cottage cheese material. No other complaints at this time. Denies any new injury [facility] Medical History Generalized anxiety disorder History of drug overdose Hyperlipemia Major depressive disorder, recurrent severe without psychotic features Opioid use disorder Seizures Unilateral above knee amputation Home Medications acetaminophen 500 mg tablet 1,000 mg PO BID PRN PRN Pain 05/20/18 [History Last Taken 06/23/19] ascorbic acid (vitamin C) 500 mg tablet (Vitamin C) 1,000 mg PO DAILY supplement 05/20/18 [History Last Taken 08/26/22] aspirin 81 mg tablet,delayed release 81 mg PO DAILY heart health 05/20/18 [History Last Taken 08/26/22] buprenorphine HCl 8 mg sublingual tablet 8 mg sublingual TID pain 07/12/21 [History Last Taken 08/26/22] docusate sodium 100 mg capsule (Colace) 100 mg PO DAILY constipation 07/12/21 [History Last Taken 08/26/22] duloxetine 60 mg capsule,delayed release 90 mg PO DAILY depression 07/12/21 [History Last Taken 08/26/22] pregabalin 150 mg capsule 100 mg PO TID phantom pain 07/12/21 [History Last Taken 08/26/22] quetiapine 300 mg tablet 300 mg PO QHS sleep 07/12/21 [History Last Taken 08/25/22] cephalexin 500 mg capsule 500 mg PO Q6 #40 CAPSULES 08/25/22 [Rx Last Taken 08/26/22] levofloxacin 750 mg tablet 750 mg PO DAILY #5 tabs 08/25/22 [Rx Last Taken 08/26/22] carvedilol 6.25 mg tablet 6.25 mg PO DAILY HTN 08/27/22 [History Last Taken 08/26/22] Allergy/AdvReac Type Severity Reaction Status Date / Time metoclopramide HCl Allergy shaking Verified 08/25/22 15:42 [From Reglan] prochlorperazine edisylate Allergy Hives Verified 08/25/22 15:42 [From Compazine] prochlorperazine maleate Allergy Hives Verified 08/25/22 15:42 [From Compazine] promethazine HCl Allergy Hives Verified 08/25/22 15:42 [From Phenergan] Surgical History H/O wrist surgery Social History household members: none Smoking Status: Never smoker alcohol intake: never substance use type: does not use ROS ROS ED Constitutional Constitutional ED: Reports chills and fever(s) ENT ENT ED: Denies sore throat Cardiovascular Cardiovascular: Denies chest pain or palpitations Respiratory/Chest Respiratory/Chest: Denies cough Gastrointestinal Gastrointestinal: Reports nausea; Denies abdominal pain or vomiting Genitourinary Genitourinary ED: Denies dysuria or hematuria Musculoskeletal Musculoskeletal: Reports myalgias Integumentary Reports rash Neurologic Neurologic: Reports paresthesias RUE (since her surgery ); Denies headache(s) or weakness Psychiatric Psychiatric: Reports anxiety EXAM Physical Exam Const Vital Signs: 08/26/22 23:11 Temperature 98.5 F Temperature Source Temporal Pulse Rate 98 Respiratory Rate 18 Blood Pressure 158/100 H Blood Pressure Mean 119 Pulse Ox 97 Oxygen Delivery Method Room Air Positive well nourished, well developed and obese General Appearance ED: well developed and NAD Nutritional Appearance: obese HEENT normocephalic Neck full ROM and supple Chest Wall inspection of chest normal and palpation of chest normal Resp normal respiratory effort and clear to auscultation bilaterally Cardio regular rhythm and no murmurs Rate: tachycardic GI non-distended Extremity Extremity Narrative: Patient has fasciotomy incisions that are healing over the ventral aspect of the right distal forearm as well as the dorsal and lateral aspect of the right hand. There is a retained suture in the forearm incision site. No ventral erythema or drainage. Patient does have a slightly dehisced but superficial wounds of the middle of the dorsum of the right hand. There is no active drainage at this time. On the lateral aspect of the right hand over the fifth metacarpal there is another healed wound that is not currently draining as well. Patient does have pain with direct palpation diffusely but not out of proportion to exam. Compartments are soft. Range of motion is preserved grossly. Prior left [facility]: Yes edema General Extremity: edema Neuro oriented x3, moves all extremities and no focal motor deficits Motor Exam: muscle tone normal throughout Psych mental status grossly normal Skin Skin Narrative: Mild erythema and warmth along the dorsal aspect of the right forearm extending approximately 5 cm distal to the elbow. No associated lymphangitic streaking. Surgical incisions of the forearm and hand, see extremity exam. No crepitus appreciated. MDM MDM MDM Narrative Medical decision making narrative: Patient is evaluated for worsening redness and pain of her right upper extremity. She has a history of anxiety, opioid use disorder as well as recent history of compartment syndrome, secondary infection and treatment with antibiotics. Patient reports that she had a fever at home and has had increased redness as well as overall myalgias and body aches of her right upper extremity. Patient does have some erythema and slight warmth of her right forearm however it is hard to tell how much of this is acute infection versus from her recent past medical history. She does have an uptrending CRP and leukocytosis. Case is discussed with her plastic hand surgeon, Dr. Jeter, who states that at this point patient should not require another washout and is completed her initial course of antibiotics. This is not surgical at this point and she does not require transfer back to [facility]. Patient's pain initially is addressed with a dose of morphine in the ER. She is then given oral oxycodone. Due to the fact that she has worsening infection symptoms despite being on oral antibiotics she will be admitted and started on broad-spectrum antibiotics, vancomycin and Zosyn. Cultures are sent. She does not have any crepitus or signs consistent with necrotizing fasciitis based on physical exam. Her lactate is normal. I did review her infectious disease note from [facility] with the transfer line at [facility]. They state that infectious disease reported she did not need a PICC line at that time because she completed 3-week course of antibiotics including Levaquin and Keflex. In addition she did have cultures positive for Pseudomonas as well as MSSA. Patient does have a personal history of MRSA. Case is discussed with admitting physician, Dr. Orr. She will be admitted for IV antibiotics given failure of outpatient oral antibiotics and progression of symptoms despite being on oral antibiotics. Patient agreeable this plan of care. Patient betito hemodynamically stable in the emergency room. She had imaging performed yesterday of her right upper extremity and I do not think repeat imaging is indicated at this time. Lab Data Attestation: I reviewed the patient's lab results. Discharge Plan Dx/Rx/DC Orders Clinical Impression: Cellulitis of right hand, Failure of outpatient treatment, Leukocytosis Disposition Disposition: Acute Care Hospital [facility] Discharge Date/Time: 08/27/22 02:57
[2022-08-27 00:48] LABS: Absolute Lymphocyte Count 4.18 X10^3/uL (0.83-4.51); Absolute Neutrophil Count 8.3 X10^3/uL (2.0-7.7); Basophil# 0.12 X10^3/uL; Basophil% 0.8 % (0-1); Eosinophil# 0.44 X10^3/uL; Eosinophils% 3.1 % (0-5); Hematocrit 39.6 % (37-47); Hemoglobin 12.2 g/dL (12.0-15.0); Lymphocyte # 4.18 X10^3/ul (0.83-4.51); Lymphocyte % 29.5 % (19-41); Mean Corp Hgb Conc 30.8 g/dL (32-36); Mean Corpuscular Hgb 28.2 pg (27.0-32.0); Mean Corpuscular Volume 91.7 fL (81-99); Monocyte# 1.05 X10^3/uL; Monocyte% 7.4 % (0-10); NRBC Flagged by Analyzer 0 % (0-5); Neutrophil # 8.34 X10^3/uL (2.7-7.7); Neutrophil % 58.8 % (47-70); POSITIVE COUNT YES; Platelet Count 188 K/mm3 (150-450); RBC Distribution Width CV 12.7 % (11.6-14.6); RBC Distribution Width SD 42.6 fl (35.1-43.9); Red Blood Count 4.32 M/mm3 (4.2-5.4); White Blood Count 14.2 K/mm3 (4.4-11.0)
[2022-08-27] MEDS: 0.9% Normal Saline 1,000 ML 1000 ML IV (00:53)
[2022-08-27] MEDS: Morphine 4 MG/ML Syringe 6 MG IV (00:54)
[2022-08-27] MEDS: Ondansetron 4 MG/2 ML Vial IV (00:54)
[2022-08-27 01:00] LABS: Differential Indicated SCAN CRITERIA MET
[2022-08-27 01:07] LABS: Erythrocyte Sedimentation Rate 20 mm/hr (0-30)
[2022-08-27 01:24] LABS: Differential Comment SCANNED; Lactic Acid 1.2 mmol/L (0.4-1.9); Platelet Estimate ADEQUATE (ADEQ)
[2022-08-27 01:51] LABS: Anion Gap 9 (5-15); BUN 11 mg/dL (7-18); BUN/Creat Ratio 15.6 RATIO (10-20); Calcium,Total 8.9 mg/dL (8.5-10.1); Chloride 106 mmol/L (98-107); EST Glomerular Filtration Rate 91 mL/min (>60); Est Glom Filt Rate - Afr Amer 110 mL/min (>60); Estimated Creatinine Clearance 72.47 ml/min; Glucose 96 mg/dL (74-106); Potassium 3.9 mmol/L (3.5-5.1); Sodium Level 144 mmol/L (136-145)
--- NOTE | 2022-08-27 02:25 | PCM.HP.STD ---
HPI - General General Date of Admission: 08/27/22 Date of Service: 08/27/22 Chief Complaint: Right hand wound infection HPI Narrative PARDEEP MARK, is a 57 F who presents to the emergency room with chief complaint of increased swelling erythema and drainage from her right hand and wrist area. Patient has a significant past medical history of recent trauma in June following back in her wheelchair causing an injury to her right wrist and hand which subsequently developed significant swelling and compartment syndrome was diagnosed requiring fasciotomy for which she was hospitalized and recently discharged from [facility]. Over the past 2 days she has had increased erythema swelling and drainage and pain from her wound. White blood cell count is now elevated at 14,000, x-ray of the hand and wrist show no new involvement other than soft tissue infection. She was cultured for Pseudomonas previously. She has been on outpatient Levaquin. She will be admitted placed on IV vancomycin and Zosyn and monitored for progression and perhaps will need PICC line placement for IV antibiotics as an outpatient. FORMERLY [facility], [facility] Medical History Generalized anxiety disorder History of drug overdose Hyperlipemia Major depressive disorder, recurrent severe without psychotic features Opioid use disorder Seizures Unilateral above knee amputation Home Medications acetaminophen 500 mg tablet 1,000 mg PO BID PRN PRN Pain 05/20/18 [History Last Taken 06/23/19] ascorbic acid (vitamin C) 500 mg tablet (Vitamin C) 1,000 mg PO DAILY supplement 05/20/18 [History Last Taken 06/23/19] aspirin 81 mg tablet,delayed release 81 mg PO DAILY heart health 05/20/18 [History Last Taken 06/23/19] buprenorphine HCl 8 mg sublingual tablet 8 mg sublingual TID 07/12/21 [History Last Taken Unknown] docusate sodium 100 mg capsule (Colace) 100 mg PO DAILY 07/12/21 [History Last Taken Unknown] duloxetine 60 mg capsule,delayed release 90 mg PO QHS 07/12/21 [History Last Taken Unknown] pregabalin 150 mg capsule 100 mg PO TID 07/12/21 [History Last Taken Unknown] quetiapine 300 mg tablet 300 mg PO QHS 07/12/21 [History Last Taken Unknown] zinc oxide 20 % topical ointment 1 applic topical PRN PRN redness 12/30/21 [History Last Taken Unknown] cephalexin 500 mg capsule 500 mg PO Q6 #40 CAPSULES 08/25/22 [Rx Last Taken Unknown] levofloxacin 750 mg tablet 750 mg PO DAILY #5 tabs 08/25/22 [Rx Last Taken Unknown] carvedilol 6.25 mg tablet 6.25 mg PO DAILY 08/27/22 [History Last Taken Unknown] Allergy/AdvReac Type Severity Reaction Status Date / Time metoclopramide HCl Allergy shaking Verified 08/25/22 15:42 [From Reglan] prochlorperazine edisylate Allergy Hives Verified 08/25/22 15:42 [From Compazine] prochlorperazine maleate Allergy Hives Verified 08/25/22 15:42 [From Compazine] promethazine HCl Allergy Hives Verified 08/25/22 15:42 [From Phenergan] Surgical History H/O wrist surgery Social History household members: none Smoking Status: Never smoker alcohol intake: never substance use type: does not use ROS Constitutional Constitutional: Denies chills or fever(s) Eyes Eyes: Denies change in vision ENT HEENT: Denies abnormal hearing Cardiovascular Cardiovascular: Denies chest pain Respiratory/Chest Respiratory/Chest: Denies cough Gastrointestinal Gastrointestinal: Reports nausea and vomiting Genitourinary Genitourinary: Denies dysuria Musculoskeletal Musculoskeletal: Reports joint pain, joint stiffness and joint swelling Integumentary Integumentary: Reports wounds Neurologic Neurologic: Denies abnormal speech or confusion Psychiatric Psychiatric: Reports anxiety Vital Signs Vital Signs Vital Signs: 08/26/22 23:11 Temperature 98.5 F Temperature Source Temporal Pulse Rate 98 Respiratory Rate 18 Blood Pressure 158/100 H Blood Pressure Mean 119 Pulse Ox 97 Oxygen Delivery Method Room Air Weight Weight: 225 lb Body Mass Index (BMI) 39.8 Physical Exam Const oriented x3 General Appearance: cooperative HEENT normocephalic and head/scalp atraumatic Eyes PERRL Neck no lymphadenopathy Lymph Lymphatic: no lymphadenopathy noted Resp normal respiratory effort, normal air movement and clear to auscultation bilaterally Cardio regular rate, regular rhythm, S1 normal heart sound, S2 normal heart sound and no murmurs GI normal to inspection, nondistended, normoactive bowel sounds Extremity General Extremity: edema right (upper ext , with erythema and tenderness of dorsum right hand to wrist) Skin Wounds: wounds noted Wound Narrative: Right hand and wrist Neuro no focal motor deficits and no sensory deficits noted Psych thought process normal, cooperative and affect normal Results Lab / Micro Data Result Diagrams: 08/27/22 00:39 08/27/22 00:39 Labs: Laboratory Results - last 24 hr 08/27/22 00:39: WBC 14.2 H, RBC 4.32, Hgb 12.2, Hct 39.6, MCV 91.7, MCH 28.2, MCHC 30.8 L, RDW Std Deviation 42.6, RDW Coeff of Adilia 12.7, Plt Count 188, MPV 11.0, Immature Gran % (Auto) 0.400, Neut % (Auto) 58.8, Lymph % (Auto) 29.5, Laporte % (Auto) 7.4, Eos % (Auto) 3.1, Baso % (Auto) 0.8, Absolute Neuts (auto) 8.3 H, Absolute Lymphs (auto) 4.18, Nucleated RBC % 0, Differential Comment SCANNED, Platelet Estimate ADEQUATE, ESR 20 08/27/22 00:39: Sodium 144, Potassium 3.9, Chloride 106, Carbon Dioxide 29.0, Anion Gap 9, BUN 11, Creatinine 0.70, Estim Creat Clear Calc 72.47, Est GFR (MDRD) Af Amer 110, Est GFR (MDRD) Non-Af 91, BUN/Creatinine Ratio 15.6, Glucose 96, Calcium 8.9, C-React Prot Ext Range 14.50 H 08/27/22 00:39: Lactic Acid 1.2 Micro: Microbiology 08/27/22 00:43 Nasal Secretion SARS-CoV-2 & FLU Antigen (Rapid) - Final Assessment & Plan Assessment/Plan (1) Hyperlipidemia: QUALIFIERS: Hyperlipidemia type: unspecified Qualified Code(s): E78.5 - Hyperlipidemia, unspecified (2) Drug abuse: (3) Cellulitis of right hand: PLAN: Plan 1. Cellulitis of right hand/wrist status post fasciotomy?admit patient to general medical floor continue IV vancomycin and Zosyn initiated in the emergency room repeat CBC in the morning. We will give oxycodone 5 mg every 6 hours as needed pain. Will need case management assistance for discharge planning as patient would likely need a PICC line placed and outpatient IV antibiotic administration since she has already failed oral outpatient therapy. 2. History of drug abuse?we will be using narcotics cautiously 3. Hyperlipidemia?continue statin 4. DVT prophylaxis?low molecular weight heparin Charges/Coding Visit Charges Inpatient E&M: 77674 Init Hosp L3
[2022-08-27 02:37] VITALS: BP 143/89; PULSE 78; RESP 15; TEMP 36.4; O2SAT 99
[2022-08-27] MEDS: oxyCODONE 5 MG Tablet PO (02:53)
[2022-08-27 03:10] VITALS: BP 119/76; PULSE 94; RESP 18; TEMP 38.2; O2SAT 96
[2022-08-27 03:18] VITALS: BMI 39.3
[2022-08-27] MEDS: buprenorphine HCL 8 MG TAB.SUBL SL ×2 (04:21→13:52)
[2022-08-27] MEDS: Acetaminophen 500 MG Tablet 1000 MG PO ×2 (04:21→15:37)
--- NOTE | 2022-08-27 05:05 | PCM.RX.CS ---
Consult Pharmacy has been consulted to manage selected antiobiotic: Vancomycin Type of Consult: New start Suspected Infection: Skin/Soft tissue Labs: Sodium 144 mmol/L (136-145) 08/27/22 00:39 Potassium 3.9 mmol/L (3.5-5.1) 08/27/22 00:39 Chloride 106 mmol/L (98-107) 08/27/22 00:39 Carbon Dioxide 29.0 mmol/L (21.0-32.0) 08/27/22 00:39 Anion Gap 9 (5-15) 08/27/22 00:39 BUN 11 mg/dL (7-18) 08/27/22 00:39 Creatinine 0.70 mg/dL (0.55-1.02) 08/27/22 00:39 Est GFR (MDRD) Af Amer 110 mL/min (>60) 08/27/22 00:39 Est GFR (MDRD) Non-Af 91 mL/min (>60) 08/27/22 00:39 BUN/Creatinine Ratio 15.6 RATIO (10-20) 08/27/22 00:39 Glucose 96 mg/dL (74-106) 08/27/22 00:39 Microbiology: Microbiology 08/27/22 00:43 Nasal Secretion SARS-CoV-2 & FLU Antigen (Rapid) - Final Goal Trough: 10-15 mcg/mL Pharmacy Plan for Drug Dosing: Pharmacy Service will continue to monitor and adjust dosing as required. Medications Vancomycin HCl 1,250 mg/ (Sodium Chloride) 275 mls @ 167 mls/hr IV Q12H TABBY Discontinued Medications Vancomycin HCl 1,500 mg/ (Sodium Chloride) 530 mls @ 250 mls/hr IV X1 ONE Stop: 08/27/22 04:25 Last Admin: 08/27/22 03:15 Dose: 250 mls/hr Follow-Up Labs: Trough Vancomycin Labs to be done on [date and time ordered]: 08/28 @ 1434
[2022-08-27 06:01] LABS: Absolute Lymphocyte Count 3.24 X10^3/uL (0.83-4.51); Absolute Neutrophil Count 7.1 X10^3/uL (2.0-7.7); Basophil# 0.07 X10^3/uL; Basophil% 0.6 % (0-1); Eosinophil# 0.42 X10^3/uL; Eosinophils% 3.6 % (0-5); Hematocrit 36.2 % (37-47); Hemoglobin 11.6 g/dL (12.0-15.0); Lymphocyte # 3.24 X10^3/ul (0.83-4.51); Lymphocyte % 28.1 % (19-41); Mean Corpuscular Hgb 29.1 pg (27.0-32.0); Mean Platelet Vol. 10.4 fl (6.2-12.0); Monocyte% 6.1 % (0-10); NRBC Flagged by Analyzer 0 % (0-5); Neutrophil # 7.08 X10^3/uL (2.7-7.7); Neutrophil % 61.3 % (47-70); Platelet Count 237 K/mm3 (150-450); RBC Distribution Width CV 12.8 % (11.6-14.6); RBC Distribution Width SD 42.5 fl (35.1-43.9); Red Blood Count 3.98 M/mm3 (4.2-5.4); White Blood Count 11.6 K/mm3 (4.4-11.0)
[2022-08-27] MEDS: Pregabalin 50 MG Capsule 100 MG PO ×3 (06:22→21:24)
[2022-08-27 06:34] LABS: Anion Gap 7 (5-15); BUN 10 mg/dL (7-18); BUN/Creat Ratio 13.9 RATIO (10-20); Calcium,Total 8.9 mg/dL (8.5-10.1); Chloride 108 mmol/L (98-107); Creatinine, Serum 0.72 mg/dL (0.55-1.02); EST Glomerular Filtration Rate 88 mL/min (>60); Est Glom Filt Rate - Afr Amer 107 mL/min (>60); Estimated Creatinine Clearance 70.45 ml/min; Glucose 162 mg/dL (74-106); Potassium 3.6 mmol/L (3.5-5.1); Sodium Level 143 mmol/L (136-145)
[2022-08-27 07:05] VITALS: O2SAT 89
[2022-08-27 10:00] VITALS: BP 134/69; PULSE 64; RESP 18; TEMP 36.6; O2SAT 100
[2022-08-27] MEDS: Aspirin E.C. 81 MG Tablet PO (10:15)
[2022-08-27] MEDS: Docusate Sodium 100 MG Capsule PO (10:15)
[2022-08-27] MEDS: Carvedilol 6.25 MG Tablet PO (10:15)
[2022-08-27] MEDS: Ascorbic Acid 500 MG Tablet 1000 MG PO (10:16)
[2022-08-27] MEDS: Enoxaparin 40 MG/0.4 ML Syringe SC ×2 (10:16→21:24)
--- NOTE | 2022-08-27 13:09 | NURSING ---
to CT via bed for scan
--- NOTE | 2022-08-27 13:23 | CASEMGMT ---
RICHARD PIÑA NOTE: Insurance review for hospitals In-network with?[employer] Insurance if transfer is recommended is as follows: [facility], [place], [facility], [facility], [facility], [facility], [facility]), and . Dashawn GRANT RN CM
[2022-08-27 14:16] VITALS: BP 134/76; PULSE 84; RESP 18; TEMP 37.1; O2SAT 94
[2022-08-27] MEDS: Morphine 4 MG/ML Syringe IV ×2 (17:11→23:57)
[2022-08-27] MEDS: 0.9% Saline Lock 10 ML Syringe IV (17:12)
--- NOTE | 2022-08-27 18:17 | PN.HOSP_ITS ---
Hospitalist Note Patient was seen and examined today, I briefly talked about her medical care with her, initially she felt that she should be transferred to another facility for evaluation by hand surgery, I did call [facility] where the patient's hand surgeon is located, it was relayed to me by the transfer line that there would be no surgery performed on the patient if she was transferred and that they recommended the patient be treated with IV antibiotics, the transfer line then call me back and told me that the transfer was discussed with the hospita list service and they felt that the patient could be managed at this hospital here with IV antibiotics. I went over this with the patient and the patient is comfortable with staying here and receiving IV antibiotics and pain medications presently. I will have ID see the patient tomorrow.
[2022-08-27 21:15] VITALS: BP 131/90; PULSE 80; RESP 18; TEMP 37; O2SAT 96
[2022-08-27] MEDS: DULoxetine Hcl 30 MG Capsule 90 MG PO (21:24)
[2022-08-27] MEDS: levETIRAcetam 750 MG Tablet PO (21:25)
[2022-08-27] MEDS: QUEtiapine 100 MG Tablet 300 MG PO (21:25)
[2022-08-28] VITALS (7 sets, daily range): BP systolic 110–125; BP diastolic 61–81; PULSE 72–108; RESP 18; TEMP 36.3–37.5; O2SAT 91–96
[2022-08-28 06:10] LABS: Absolute Lymphocyte Count 2.24 X10^3/uL (0.83-4.51); Absolute Neutrophil Count 4.5 X10^3/uL (2.0-7.7); Basophil# 0.08 X10^3/uL; Eosinophil# 0.39 X10^3/uL; Eosinophils% 4.9 % (0-5); Hematocrit 36.8 % (37-47); Hemoglobin 11.5 g/dL (12.0-15.0); Lymphocyte # 2.24 X10^3/ul (0.83-4.51); Lymphocyte % 27.9 % (19-41); Mean Corp Hgb Conc 31.3 g/dL (32-36); Mean Corpuscular Hgb 28.6 pg (27.0-32.0); Mean Corpuscular Volume 91.5 fL (81-99); Mean Platelet Vol. 10.6 fl (6.2-12.0); Monocyte# 0.78 X10^3/uL; Monocyte% 9.7 % (0-10); NRBC Flagged by Analyzer 0 % (0-5); Neutrophil # 4.51 X10^3/uL (2.7-7.7); Platelet Count 207 K/mm3 (150-450); RBC Distribution Width CV 12.8 % (11.6-14.6); Red Blood Count 4.02 M/mm3 (4.2-5.4)
[2022-08-28] MEDS: Morphine 4 MG/ML Syringe IV (06:14)
[2022-08-28] MEDS: 0.9% Saline Lock 10 ML Syringe IV (06:15)
[2022-08-28] MEDS: Pregabalin 50 MG Capsule 100 MG PO ×3 (06:28→21:45)
[2022-08-28 06:42] LABS: Anion Gap 5 (5-15); BUN 11 mg/dL (7-18); Calcium,Total 8.6 mg/dL (8.5-10.1); Chloride 109 mmol/L (98-107); Creatinine, Serum 0.69 mg/dL (0.55-1.02); EST Glomerular Filtration Rate 93 mL/min (>60); Est Glom Filt Rate - Afr Amer 112 mL/min (>60); Estimated Creatinine Clearance 73.52 ml/min; Glucose 124 mg/dL (74-106); Potassium 3.8 mmol/L (3.5-5.1); Sodium Level 144 mmol/L (136-145)
[2022-08-28] MEDS: Carvedilol 6.25 MG Tablet PO (07:51)
[2022-08-28] MEDS: Ascorbic Acid 500 MG Tablet 1000 MG PO (09:13)
[2022-08-28] MEDS: Aspirin E.C. 81 MG Tablet PO (09:13)
[2022-08-28] MEDS: Docusate Sodium 100 MG Capsule PO (09:13)
[2022-08-28] MEDS: levETIRAcetam 750 MG Tablet PO ×2 (09:13→21:36)
[2022-08-28] MEDS: Enoxaparin 40 MG/0.4 ML Syringe SC ×2 (09:14→21:38)
[2022-08-28] MEDS: Acetaminophen 500 MG Tablet 1000 MG PO (09:15)
--- NOTE | 2022-08-28 12:50 | CASEMGMT ---
RN?CM?CLINICAL ACCOUNT LIAISON?CM?to room to meet with patient for initial transition planning/care coordination?assessment.?RN?CM?introduced self and role at [facility].? Pt voices understanding and consents to?assessment?at this time.? Pt resting in bed in no distress at this time.? Pt is A/O at this time and answers all questions appropriately.?? Care providers, pharmacy, and demographics verified/updated at this time. PCP: Dr Karimi Specialists: Dr Jeter-surgeon @ [facility] for fasciotomy. Pt states she had an appt yesterday to have stitches removed that she had to cancel d/t being @ [facility]. Neurologist @ [facility] seizure center. States she was seeing Dr Morris for pain mgmt, but d/t having to cancel so many appts they will not take her back. She plans to f/u with her PCP to get referral to see Dr Earl. Preferred Pharmacy: [facility] Retail Insurance:[employer] Prescription Benefit:?Yes Living Will/HPOA:?Does not have LW, but does have HCPOA, who is her dtr, Alison. LNOK: 3 children. Dtr/POA, Alison. Son, Darinel, whom pt states is a doctor. Living Arrangements: Lives alone in handi-cap accessible condo w/ramp entrance. Indep w/ADL's and IADL's and manages her own medications. Family supportive. Dtr lives nearby and able to help, if needed. Pt has Lt AKA. She states she is able to transfer herself well by pivoting. Transportation:?Pt states drives self and states no transportation concerns at this time.? DME: ?States has the following DME:?shower chair, RTS, crutches, W/C. Pt would like a medical alert button. Information provided. ?Pt states no need for further DME at this time.? HHC/SNF: No hx of SNF. Has had HHC in the past. Discussed possibility of needing IV atb @ discharge. Pt states she would want to go home w/HHC if IV atb's are needed. Pt states she has had home IV atb admin in the past. She states she was at that time and helped w/IV admin, but they are now. She states she would be willing/able to learn and her dtr could also be a teachable caregiver if needed. Pt states 1st preference of HHC is [facility] and she declines wanting list of other HHC options. She was provided w/list of infusion companies and [facility] is her 1st choice. Pt states, if IV atb's are not needed, she does not want HHC. Pt wishes to return home and states has no concerns with going home at time of discharge.??CM?to follow for any further discharge planning/needs.? Pt voices no further concerns/needs at this time.? Advised pt to ask for?CM?if any further questions/concerns/needs arise.? Voices understanding. PLAN:??TBD. Follow for possible IV atb's/HHC @ discharge. Dashawn ESQUIVELN?RN?CM
[2022-08-28] MEDS: Buprenorphine HCl 2 MG TAB.SUBL 8 MG SL (13:31)
--- NOTE | 2022-08-28 13:39 | CON.PCM.ID_ITS ---
Assessment & Plan Assessment/Plan (1) Cellulitis of right hand: PLAN: Reviewed [facility] records. Prior cxs with PsA and MSSA. On v anc/zosyn here. Suspect this is issue with source control. Will order wound cx and MRI. Will follow, thank you, az Beauchamp. HPI Consult Data Date of Consult: 08/28/22 HPI Narrative Reason for Consultation: hand infection HPI Narrative: PARDEEP MARK, is a 57 F who presented with one week worsening R hand pain, swe lling, redness with intermittent purulent drainage. Injured hand in June on wheelchair, developed compartment syndrome, admitted to [facility] and taken to OR for fasciotomy 07/26/22. Surg cx grew pseudomonas and mssa. Seen by ID, discharged on po levaquin/keflex. Readmitted soon after with worsened symptoms, completed abx while in the hospital, discharged earlier this month off of abx. Now with worsened sx again, restarted on levaquin after going to ED 08/25 with new fever and chills. Now admitted on vanc/zosyn. Feeling about the same. She is L handed. Full ROS performed and neg except as noted above. [facility] Medical History Generalized anxiety disorder History of drug overdose Hyperlipemia Major depressive disorder, recurrent severe without psychotic features Opioid use disorder Seizures Unilateral above knee amputation Home Medications acetaminophen 500 mg tablet 1,000 mg PO BID PRN PRN Pain 05/20/18 [History Last Taken 06/23/19] ascorbic acid (vitamin C) 500 mg tablet (Vitamin C) 1,000 mg PO DAILY supplement 05/20/18 [History Last Taken 08/26/22] aspirin 81 mg tablet,delayed release 81 mg PO DAILY heart health 05/20/18 [History Last Taken 08/26/22] buprenorphine HCl 8 mg sublingual tablet 8 mg sublingual TID pain 07/12/21 [History Last Taken 08/26/22] docusate sodium 100 mg capsule (Colace) 100 mg PO DAILY constipation 07/12/21 [History Last Taken 08/26/22] duloxetine 60 mg capsule,delayed release 90 mg PO DAILY depression 07/12/21 [History Last Taken 08/26/22] pregabalin 150 mg capsule 100 mg PO TID phantom pain 07/12/21 [History Last Taken 08/26/22] quetiapine 300 mg tablet 300 mg PO QHS sleep 07/12/21 [History Last Taken 08/25/22] cephalexin 500 mg capsule 500 mg PO Q6 #40 CAPSULES 08/25/22 [Rx Last Taken 08/26/22] levofloxacin 750 mg tablet 750 mg PO DAILY #5 tabs 08/25/22 [Rx Last Taken 08/26/22] carvedilol 6.25 mg tablet 6.25 mg PO DAILY HTN 08/27/22 [History Last Taken 08/26/22] levetiracetam 750 mg tablet (Keppra) 750 mg PO BID seizures 08/27/22 [History Last Taken Unknown] Allergy/AdvReac Type Severity Reaction Status Date / Time metoclopramide HCl Allergy shaking Verified 08/25/22 15:42 [From Reglan] prochlorperazine edisylate Allergy Hives Verified 08/25/22 15:42 [From Compazine] prochlorperazine maleate Allergy Hives Verified 08/25/22 15:42 [From Compazine] promethazine HCl Allergy Hives Verified 08/25/22 15:42 [From Phenergan] Surgical History H/O wrist surgery Social History household members: none Smoking Status: Never smoker alcohol intake: never substance use type: does not use Physical Exam Const alert, oriented x3 and no apparent distress General Appearance: cooperative HEENT normocephalic and head/scalp atraumatic Eyes PERRL and EOMs intact bilaterally Neck supple and No nodes Resp normal air movement and clear to auscultation bilaterally Cardio regular rate and regular rhythm GI soft to palpation, non-tender and non-distended Extremity Extremity Narrative: s/p AKA Skin Skin Narrative: R wrist limited movement. Incisions with scabbing, redness, induration, tenderness. Neuro CN's II-XII intact bilaterally Lab / Micro Data Attestation: I reviewed the patient's lab results. Result Diagrams: 08/28/22 05:45 08/28/22 05:45 Labs: Laboratory Results - last 24 hr 08/28/22 05:45: WBC 8.0, RBC 4.02 L, Hgb 11.5 L, Hct 36.8 L, MCV 91.5, MCH 28.6, MCHC 31.3 L, RDW Std Deviation 43.0, RDW Coeff of Adilia 12.8, Plt Count 207, MPV 10.6, Immature Gran % (Auto) 0.500, Neut % (Auto) 56.0, Lymph % (Auto) 27.9, [place] % (Auto) 9.7, Eos % (Auto) 4.9, Baso % (Auto) 1.0, Absolute Neuts (auto) 4.5, Absolute Lymphs (auto) 2.24, Nucleated RBC % 0 08/28/22 05:45: Sodium 144, Potassium 3.8, Chloride 109 H, Carbon Dioxide 30.0, Anion Gap 5, BUN 11, Creatinine 0.69, Estim Creat Clear Calc 73.52, Est GFR (MDRD) Af Amer 112, Est GFR (MDRD) Non-Af 93, BUN/Creatinine Ratio 16.0, Glucose 124 H, Calcium 8.6
--- NOTE | 2022-08-28 14:36 | WOUNDNOTE ---
wound photo: right hand
--- NOTE | 2022-08-28 14:37 | WOUNDNOTE ---
wound photo: right forearm
[2022-08-28 14:38] LABS: Vancomycin, Trough Level 14.4 ug/mL (5.0-15.0)
--- NOTE | 2022-08-28 16:20 | PCM.PN.HOSP ---
Reason for Visit Reason for Visit: Diagnoses Hyperlipidemia, unspecified (08/27/22) Other psychoactive substance abuse, uncomplicated (08/27/22) Cellulitis of right upper limb (08/27/22) Subjective Subjective Patient was seen and examined today, her white blood cell count is normal today at 8, I had infectious diseases see her today, they ordered an MRI of her right arm and hand and kept her on Zosyn and vancomycin. Patient would like to go back on her Subutex, I stopped her narcotics and started her back on Subutex today. Objective Data Objective Data Vital Signs: Vital Signs Temp Pulse Resp BP Pulse Ox O2 Del Method O2 Flow Rate 99.5 F H 108 H 18 117/81 H 94 Room Air 2 08/28/22 14:25 08/28/22 14:25 08/28/22 14:25 08/28/22 14:25 08/28/22 14:25 08/28/22 14:25 08/28/22 13:09 Oxygen Flow Rate (L/min) 2 Oxygen Delivery Method Room Air Weight: 100.8 kg Body Mass Index (BMI) 39.3 Intake & Output: Intake and Output for Last 24 Hours 08/26/22 08/27/22 08/28/22 23:59 23:59 23:59 Intake Total 2931.25 / 3181.25 1165.75 / 1165.75 Balance 2931.25 / 3181.25 1165.75 / 1165.75 Lab / Micro Data Result Diagrams: 08/28/22 05:45 08/28/22 05:45 Labs: Laboratory Results - last 24 hr 08/28/22 05:45: WBC 8.0, RBC 4.02 L, Hgb 11.5 L, Hct 36.8 L, MCV 91.5, MCH 28.6, MCHC 31.3 L, RDW Std Deviation 43.0, RDW Coeff of Adilia 12.8, Plt Count 207, MPV 10.6, Immature Gran % (Auto) 0.500, Neut % (Auto) 56.0, Lymph % (Auto) 27.9, [place] % (Auto) 9.7, Eos % (Auto) 4.9, Baso % (Auto) 1.0, Absolute Neuts (auto) 4.5, Absolute Lymphs (auto) 2.24, Nucleated RBC % 0 08/28/22 05:45: Sodium 144, Potassium 3.8, Chloride 109 H, Carbon Dioxide 30.0, Anion Gap 5, BUN 11, Creatinine 0.69, Estim Creat Clear Calc 73.52, Est GFR (MDRD) Af Amer 112, Est GFR (MDRD) Non-Af 93, BUN/Creatinine Ratio 16.0, Glucose 124 H, Calcium 8.6 08/28/22 14:11: Vancomycin Trough 14.4 Micro: Microbiology 08/27/22 00:43 Nasal Secretion SARS-CoV-2 & FLU Antigen (Rapid) - Final Physical Exam Const alert, oriented x3 and no apparent distress General Appearance: cooperative, well kempt and well developed Orientation / Consciousness: awake, oriented to person, oriented to place and oriented to time HEENT normocephalic, head/scalp atraumatic and moist oral mucous membranes Eyes PERRL, EOMs intact bilaterally and conjunctivae normal Neck supple, no JVD, thyroid normal and no carotid bruits General: trachea midline Resp normal respiratory effort, no retractions, no use of accessory muscles and clear to auscultation bilaterally Auscultation: Negative for rales, rhonchi or wheezes Cardio regular rate, regular rhythm, S1 normal heart sound, S2 normal heart sound, no murmurs, no rub and no gallops GI normal to inspection, nondistended, normoactive bowel sounds, soft to palpation, non-tender and non-distended Extremity Extremity Narrative: There is generalized edema noted of the right hand extending into the distal forearm, this area is tender to palpation, no drainage is noted from the area. There were old surgical incisions on the dorsum of the right hand noted as well as the underside of the right forearm. There are sutures in place and a long incision on the patient's right forearm on the underside aspect. 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 Cellulitis of the right hand-patient will remain on antibiotic treatment per infectious diseases, she had an MRI ordered by infectious diseases today. Patient's white blood cell count today is normal. #2 essential hypertension-patient is to remain on her present medication #3 seizure disorder-patient is on Keppra #4 past history of drug abuse disorder-patient is on Suboxone, she will remain on this Total clinical time spent by myself addressing the patient's medical issues, reviewing all the data, and collaborating with patient's care team: 35 minutes Charges/Coding Visit Charges Inpatient E&M: 27805 Subs Hosp L2
--- NOTE | 2022-08-28 17:06 | PCM.RX.CS ---
Consult Pharmacy has been consulted to manage selected antiobiotic: Vancomycin Type of Consult: Follow-up Suspected Infection: Skin/Soft tissue Prior Doses of Antibiotics Received/Current Regimen: current dose is vanc 1250mg IV q12h Labs: Sodium 144 mmol/L (136-145) 08/28/22 05:45 Potassium 3.8 mmol/L (3.5-5.1) 08/28/22 05:45 Chloride 109 mmol/L (98-107) H 08/28/22 05:45 Carbon Dioxide 30.0 mmol/L (21.0-32.0) 08/28/22 05:45 Anion Gap 5 (5-15) 08/28/22 05:45 BUN 11 mg/dL (7-18) 08/28/22 05:45 Creatinine 0.69 mg/dL (0.55-1.02) 08/28/22 05:45 Est GFR (MDRD) Af Amer 112 mL/min (>60) 08/28/22 05:45 Est GFR (MDRD) Non-Af 93 mL/min (>60) 08/28/22 05:45 BUN/Creatinine Ratio 16.0 RATIO (10-20) 08/28/22 05:45 Glucose 124 mg/dL (74-106) H 08/28/22 05:45 Vancomycin Trough 14.4 ug/mL (5.0-15.0) 08/28/22 14:11 Microbiology: Microbiology 08/27/22 00:43 Nasal Secretion SARS-CoV-2 & FLU Antigen (Rapid) - Final Weight used for dosin.8 kg Estimated Creatinine Clearance: >100ml/min Goal Trough: 10-15 mcg/mL Pharmacy Plan for Drug Dosing: The vanc trough drawn at 14:11 today (approximately 11 hours after the previous dose) was 14.4. This is within goal range so will keep same dose. Repeat another trough per protocol in 2 days. The patient's CrCl of 100.7ml/min was calculated using an adjusted body weight. Pharmacy Service will continue to monitor and adjust dosing as required. Follow-Up Labs: Trough Vancomycin Labs to be done on [date and time ordered]: 08/30/22 14:30
[2022-08-28] MEDS: QUEtiapine 100 MG Tablet 300 MG PO (21:36)
[2022-08-28] MEDS: DULoxetine Hcl 30 MG Capsule 90 MG PO (21:36)
[2022-08-28] MEDS: buprenorphine HCL 8 MG TAB.SUBL SL (21:45)
[2022-08-29 03:32] VITALS: BP 127/49; PULSE 78; RESP 18; TEMP 36.7; O2SAT 96
[2022-08-29] MEDS: Pregabalin 50 MG Capsule 100 MG PO ×3 (06:16→20:37)
[2022-08-29] MEDS: buprenorphine HCL 8 MG TAB.SUBL SL ×3 (06:16→20:38)
[2022-08-29 08:07] VITALS: O2SAT 92
[2022-08-29 08:33] VITALS: BP 126/66; PULSE 81; RESP 16; TEMP 36.9; O2SAT 94
[2022-08-29] MEDS: Aspirin E.C. 81 MG Tablet PO (08:39)
[2022-08-29] MEDS: Enoxaparin 40 MG/0.4 ML Syringe SC ×2 (08:39→20:37)
[2022-08-29] MEDS: Carvedilol 6.25 MG Tablet PO (08:39)
[2022-08-29] MEDS: Docusate Sodium 100 MG Capsule PO (08:39)
[2022-08-29] MEDS: Ascorbic Acid 500 MG Tablet 1000 MG PO (08:39)
[2022-08-29] MEDS: levETIRAcetam 750 MG Tablet PO ×2 (08:39→20:38)
--- NOTE | 2022-08-29 09:45 | MRI_ITS ---
HISTORY: Infection of the wound area across proximal metacarpals dorsally and distal forearm ventrally, previous surgery 07/2022 for compartment syndrome status post fall, concern for abscess and osteomyelitis. TECHNIQUE: Multiplanar and multisequence MR images of the right forearm and wrist were obtained without intravenous contrast. 267 images. COMPARISON: XR 08/25/2022, 07/15/2022. FINDINGS: BONE: Markedly limited examination due to motion artifact and lack of postcontrast imaging. No definite acute fracture or confluent T1 signal abnormality identified. JOINTS: Unremarkable alignment. No large joint effusion. TENDONS: No large tenosynovitis. SOFT TISSUES: Diffuse subcutaneous cutaneous edema without focal fluid collection. MRI/Upper Ext/No Jt/ wo IMPRESSION: Limited examination due to motion artifact. Subcutaneous edema of the right forearm and wrist without definite osteomyelitis or abscess. Electronically Signed: Desiree Blood MD at 11:45 EST ,
[2022-08-29 12:10] VITALS: BP 150/83; PULSE 82; RESP 18; TEMP 37.2; O2SAT 92
[2022-08-29] MEDS: 0.9% Saline Lock 10 ML Syringe IV (13:55)
[2022-08-29 17:43] VITALS: BP 142/87; PULSE 80; RESP 16; TEMP 36.6; O2SAT 97
--- NOTE | 2022-08-29 18:45 | PCM.PN.HOSP ---
Reason for Visit Reason for Visit: Diagnoses Hyperlipidemia, unspecified (08/27/22) Other psychoactive substance abuse, uncomplicated (08/27/22) Cellulitis of right upper limb (08/27/22) Subjective Subjective Patient was seen and examined today, I talked briefly with infectious diseases about her care. Her right hand swelling has improved as compared with yesterday. I will repeat the patient's CBC tomorrow. Objective Data Objective Data Vital Signs: Vital Signs Temp Pulse Resp BP Pulse Ox O2 Del Method O2 Flow Rate 98 F 80 16 142/87 H 97 Room Air 2 08/29/22 17:43 08/29/22 17:43 08/29/22 17:43 08/29/22 17:43 08/29/22 17:43 08/29/22 17:43 08/28/22 13:09 Oxygen Flow Rate (L/min) 2 Oxygen Delivery Method Room Air Weight: 100.8 kg Body Mass Index (BMI) 39.3 Intake & Output: Intake and Output for Last 24 Hours 08/27/22 08/28/22 08/29/22 23:59 23:59 23:59 Intake Total 2931.25 / 3181.25 1490.75 / 1989.75 1653.0 / 1653.0 Output Total 200 / 200 Balance 2931.25 / 3181.25 1490.75 / 1989.75 1453.0 / 1453.0 Lab / Micro Data Result Diagrams: 08/30/22 08:10 08/28/22 05:45 Micro: Microbiology 08/28/22 14:20 Wound - Right Hand Gram Stain - Final 08/28/22 14:20 Wound - Right Hand Wound Culture - Preliminary No growth-Final to follow 08/27/22 00:50 Blood Culture (Wb) - Left Hand Blood Culture - Preliminary No growth in 48 hours. 08/27/22 00:39 Blood Culture (Wb) - Left Forearm Blood Culture - Preliminary No growth in 48 hours. 08/27/22 00:43 Nasal Secretion SARS-CoV-2 & FLU Antigen (Rapid) - Final Radiography Diagnostic Testing: Radiology Impression Upper Extremity MRI 08/29/22 09:45 IMPRESSION: Limited examination due to motion artifact. Subcutaneous edema of the right forearm and wrist without definite osteomyelitis or abscess. Electronically Signed: Desiree Blood MD at 11:45 EST , Physical Exam Narrative alert, oriented x3 and no apparent distress General Appearance: cooperative, well kempt and well developed Orientation / Consciousness: awake, oriented to person, oriented to place and oriented to time HEENT normocephalic, head/scalp atraumatic and moist oral mucous membranes Eyes PERRL, EOMs intact bilaterally and conjunctivae normal Neck supple, no JVD, thyroid normal and no carotid bruits General: trachea midline Resp normal respiratory effort, no retractions, no use of accessory muscles and clear to auscultation bilaterally Auscultation: Negative for rales, rhonchi or wheezes Cardio regular rate, regular rhythm, S1 normal heart sound, S2 normal heart sound, no murmurs, no rub and no gallops GI normal to inspection, nondistended, normoactive bowel sounds, soft to palpation, non-tender and non-distended Extremity Extremity Narrative: There is generalized edema noted of the right hand extending into the distal forearm, this area is tender to palpation, no drainage is noted from the area.? There were old surgical incisions on the dorsum of the right hand noted as well as the underside of the right forearm.? There are sutures in place and a long incision on the patient's right forearm on the underside aspect. 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 Cellulitis of the right hand-patient will remain on antibiotic treatment per infectious diseases, patient's MRI of her arm and hand shows subcutaneous edema of the right forearm and wrist without definite osteomyelitis or abscess. #2 essential hypertension-patient is to remain on her present medication #3 seizure disorder-patient is on Keppra #4 past history of drug abuse disorder-patient is on Suboxone, she will remain on this Total clinical time spent by myself addressing the patient's medical issues, reviewing all the data, and collaborating with patient's care team: 35 minutes Charges/Coding Visit Charges Inpatient E&M: 66885 Subs Hosp L2
[2022-08-29] MEDS: QUEtiapine 100 MG Tablet 300 MG PO (20:36)
[2022-08-29] MEDS: DULoxetine Hcl 30 MG Capsule 90 MG PO (20:37)
[2022-08-29 22:12] VITALS: BP 144/92; PULSE 78; RESP 18; TEMP 36.9; O2SAT 93
[2022-08-30] MEDS: Pregabalin 50 MG Capsule 100 MG PO ×2 (05:53→14:40)
[2022-08-30] MEDS: buprenorphine HCL 8 MG TAB.SUBL SL ×2 (05:53→14:40)
[2022-08-30 06:00] VITALS: BP 138/89; PULSE 80; RESP 16; TEMP 36.8; O2SAT 96
[2022-08-30 08:23] LABS: Absolute Lymphocyte Count 2.28 X10^3/uL (0.83-4.51); Absolute Neutrophil Count 5.3 X10^3/uL (2.0-7.7); Basophil# 0.07 X10^3/uL; Basophil% 0.8 % (0-1); Eosinophil# 0.37 X10^3/uL; Eosinophils% 4.2 % (0-5); Hematocrit 35.2 % (37-47); Hemoglobin 11.3 g/dL (12.0-15.0); Lymphocyte # 2.28 X10^3/ul (0.83-4.51); Lymphocyte % 25.8 % (19-41); Mean Corp Hgb Conc 32.1 g/dL (32-36); Mean Corpuscular Hgb 28.8 pg (27.0-32.0); Mean Corpuscular Volume 89.6 fL (81-99); Mean Platelet Vol. 10.1 fl (6.2-12.0); Monocyte# 0.78 X10^3/uL; Monocyte% 8.8 % (0-10); NRBC Flagged by Analyzer 0 % (0-5); Neutrophil % 59.9 % (47-70); Platelet Count 227 K/mm3 (150-450); RBC Distribution Width CV 12.9 % (11.6-14.6); RBC Distribution Width SD 42.5 fl (35.1-43.9); Red Blood Count 3.93 M/mm3 (4.2-5.4); White Blood Count 8.8 K/mm3 (4.4-11.0)
[2022-08-30] MEDS: Carvedilol 6.25 MG Tablet PO (08:50)
[2022-08-30] MEDS: levETIRAcetam 750 MG Tablet PO (08:50)
[2022-08-30] MEDS: Docusate Sodium 100 MG Capsule PO (08:50)
[2022-08-30] MEDS: Enoxaparin 40 MG/0.4 ML Syringe SC (08:50)
[2022-08-30] MEDS: Aspirin E.C. 81 MG Tablet PO (08:50)
[2022-08-30] MEDS: Ascorbic Acid 500 MG Tablet 1000 MG PO (08:51)
[2022-08-30 08:54] VITALS: BP 151/85; PULSE 85; RESP 18; TEMP 36.9; O2SAT 93
--- NOTE | 2022-08-30 14:07 | PCM.PN.ID ---
Physical Exam Narrative Feeling better, no fever, hand less sore/red. Const alert and no apparent distress General Appearance: cooperative Resp normal air movement and clear to auscultation bilaterally Cardio regular rate and regular rhythm GI soft to palpation, non-tender and non-distended Skin Skin Narrative: R wrist/hand less swollen and red. ID ID: Route of nutrition/ use of supplements: [] Nutritional Intake: [] IV Site: [] López Catheter: [] Assessment & Plan Assessment/Plan (1) Cellulitis of right hand: PLAN: Reviewed [facility] records. Prior cxs with PsA and MSSA. On vanc/zosyn here. Suspect this is issue with source control. MRI showed no abscess. Hand improved. Discussed options with her, ok for home with 2 weeks po levaquin/keflex. It will be important to followup with surgeon for suture removal. Will follow, az Beauchamp.
[2022-08-30] MEDS: 0.9% Saline Lock 10 ML Syringe IV (14:40)
--- NOTE | 2022-08-30 14:46 | DCINST_ITS ---
Discharge Instructions Diet Discharge Diet: No restrictions Activity Discharge Activity: Return to Normal Activity Weight Bearing Status: Full weight bearing Follow Up Care Test Results: Test results from this visit will be discussed in further detail at your follow- up appointment, if applicable. Discharge Plan Admission Admit Date/Time: 08/27/22 02:33 Primary Reason for Your Visit: cellulitis Attending Provider: Neil Beauchamp Primary Care Provider: Harshad Karimi Consulting Providers: Lul Orr ; Zenon Schneider Instructions Additional Instructions / Restrictions: See your hand surgeon as soon as possible Discharge Orders/Prescriptions Prescriptions: New levofloxacin 750 mg tablet 750 mg PO DAILY Qty: 14 0RF cefadroxil 500 mg capsule 1,000 mg PO BID Qty: 56 0RF Continued aspirin 81 MG tablet 81 mg PO DAILY acetaminophen 500 MG tablet 1,000 mg PO BID PRN PRN (Reason: Pain) ascorbic acid (vitamin C) [Vitamin C] 500 MG tablet 1,000 mg PO DAILY quetiapine 300 mg Tablet 300 mg PO QHS docusate sodium [Colace] 100 mg Capsule 100 mg PO DAILY buprenorphine HCl 8 mg Tablet, Sublingual 8 mg SUBLINGUAL TID duloxetine 60 mg Capsule,Delayed Release(Dr/Ec) 90 mg PO DAILY pregabalin 150 mg Capsule 100 mg PO TID carvedilol 6.25 mg tablet 6.25 mg PO DAILY levetiracetam [Keppra] 750 mg Tablet 750 mg PO BID Discontinued levofloxacin 750 mg tablet 750 mg PO DAILY Qty: 5 0RF cephalexin 500 mg capsule 500 mg PO Q6 Qty: 40 0RF Referrals / Follow Up: Harshad Karimi MD [Primary Care Provider] - Disposition Disposition (needs filled in before D/C Order can be placed): Home, Self Care
[2022-08-30 14:51] VITALS: BP 136/86; PULSE 85; RESP 18; TEMP 36.8; O2SAT 94
--- NOTE | 2022-08-30 15:06 | DS.PCM_ITS ---
Providers Date of Admission: 08/27/22 Date of Discharge: 08/30/22 Primary Care Physician: Dr. Harshad Karimi MD Consultations 08/27/22 18:20 Consult: Infectious Disease Routine Consulting Provider: Zenon Schneider Reason for Consult: cellulitis EMERGENT Consult: No MD Notified: Yes Date Notified: 08/27/22 Time Notified: 18:20 Method of Notification: via answering service 08/28/22 12:14 Consult: Onc/Wound/devulcanizer operator Routine Comment: Reason for Consult:: R hand infection Reason For Visit: RIGHT HAND CELLULITIS/INFECTION Diagnosis Discharge Diagnosis (1) Cellulitis of right hand: Status: Resolved Code(s): L03.113 - Cellulitis of right upper limb Plan 1. Cellulitis of the right hand-patient will remain on antibiotic treatment per infectious diseases, she had an MRI ordered by infectious diseases today. Patient's white blood cell count today is normal. #2 essential hypertension-patient is to remain on her present medication #3 seizure disorder-patient is on Keppra #4 past history of drug abuse disorder-patient is on Suboxone, she will remain on this Total clinical time spent by myself addressing the patient's medical issues, r eviewing all the data, and collaborating with patient's care team: 35 minutes Medications at Discharge Home Medications acetaminophen 500 mg tablet 1,000 mg PO BID PRN PRN Pain 05/20/18 ascorbic acid (vitamin C) 500 mg tablet (Vitamin C) 1,000 mg PO DAILY supplement 05/20/18 aspirin 81 mg tablet,delayed release 81 mg PO DAILY heart health 05/20/18 buprenorphine HCl 8 mg sublingual tablet 8 mg sublingual TID pain 07/12/21 docusate sodium 100 mg capsule (Colace) 100 mg PO DAILY constipation 07/12/21 duloxetine 60 mg capsule,delayed release 90 mg PO DAILY depression 07/12/21 pregabalin 150 mg capsule 100 mg PO TID phantom pain 07/12/21 quetiapine 300 mg tablet 300 mg PO QHS sleep 07/12/21 carvedilol 6.25 mg tablet 6.25 mg PO DAILY HTN 08/27/22 levetiracetam 750 mg tablet (Keppra) 750 mg PO BID seizures 08/27/22 cefadroxil 500 mg capsule 1,000 mg PO BID #56 caps 08/30/22 levofloxacin 750 mg tablet 750 mg PO DAILY #14 tabs 08/30/22 Hospital Course Operations None Procedures None Summary of Care Provided Minutes Spent on Discharge: 31 Hospital Course: This 57-year-old white female was seen in the emergency room at [facility] with complaints of right hand swelling, warmth, and redness. Patient had been hospitalized twice in [place] in July 2022 for cellulitis and fasciitis of her right forearm and hand, she underwent 2 surgeries that month and patient stated she had only been out of the hospital 6 days when she came to the emergency room for evaluation. Labs obtained on the patient showed an elevated white blood cell count at 11.6, on examination patient's right hand was swollen and reddened with warmth. Patient's hand surgeon was contacted at [facility], he advised to admit the patient to the hospital here for IV antibiotic treatment. Patient was admitted to [place] [address] and placed on IV antibiotics, I contacted [facility] the next day with concerns that the patient should be evaluated by her hand surgeon, I was told by the transfer contact lens technician for [facility] that day that the hand surgeon would not be performing any more hand surgery on the patient. Patient was seen in consultati on by infectious diseases, her white blood cell count normalized and the swelling in her right hand improved. Cultures were obtained from the right hand but did not grow out any organisms. On 08/30/2022, patient was seen and examined:alert, oriented x3 and no apparent distress General Appearance: cooperative, well kempt and well developed Orientation / Consciousness: awake, oriented to person, oriented to place and oriented to time HEENT normocephalic, head/scalp atraumatic and moist oral mucous membranes Eyes PERRL, EOMs intact bilaterally and conjunctivae normal Neck supple, no JVD, thyroid normal and no carotid bruits General: trachea midline Resp normal respiratory effort, no retractions, no use of accessory muscles and clear to auscultation bilaterally Auscultation: Negative for rales, rhonchi or wheezes Cardio regular rate, regular rhythm, S1 normal heart sound, S2 normal heart sound, no murmurs, no rub and no gallops GI normal to inspection, nondistended, normoactive bowel sounds, soft to palpation, non-tender and non-distended Extremity Extremity Narrative: There is generalized edema noted of the right hand extending into the distal forearm, this area is tender to palpation, no drainage is noted from the area.? There were old surgical incisions on the dorsum of the right hand noted as well as the underside of the right forearm.? There are sutures in place and a long incision on the patient's right forearm on the underside aspect. 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 Weight / BMI Weight Weight: 100.8 kg Body Mass Index (BMI) 39.3 ABG / Lab / Microbiology Data Result Diagrams: 08/30/22 08:10 08/28/22 05:45 Laboratory: Laboratory Results - last 24 hr 08/30/22 08:10: WBC 8.8, RBC 3.93 L, Hgb 11.3 L, Hct 35.2 L, MCV 89.6, MCH 28.8, MCHC 32.1, RDW Std Deviation 42.5, RDW Coeff of Adilia 12.9, Plt Count 227, MPV 10.1, Immature Gran % (Auto) 0.500, Neut % (Auto) 59.9, Lymph % (Auto) 25.8, Levy % (Auto) 8.8, Eos % (Auto) 4.2, Baso % (Auto) 0.8, Absolute Neuts (auto) 5.3, Absolute Lymphs (auto) 2.28, Nucleated RBC % 0 Microbiology: Microbiology 08/28/22 14:20 Wound - Right Hand Gram Stain - Final 08/28/22 14:20 Wound - Right Hand Wound Culture - Preliminary No growth-Final to follow 08/27/22 00:50 Blood Culture (Wb) - Left Hand Blood Culture - Preliminary No growth in 48 hours. 08/27/22 00:39 Blood Culture (Wb) - Left Forearm Blood Culture - Preliminary No growth in 48 hours. 08/27/22 00:43 Nasal Secretion SARS-CoV-2 & FLU Antigen (Rapid) - Final D/C Instructions Discharge Diet: No restrictions Weight Bearing Status: Full weight bearing Meaningful Use Info Meaningful Use Diagnoses (Choose all that apply): None applicable Discharge Plan Admission Admit Date/Time: 08/27/22 02:33 Primary Reason for Your Visit: cellulitis Attending Provider: Neil Beauchamp Primary Care Provider: Harshad Karimi Consulting Providers: Lul Orr ; Zenon Schneider Instructions Additional Instructions / Restrictions: See your hand surgeon as soon as possible Discharge Orders/Prescriptions Prescriptions: New levofloxacin 750 mg tablet 750 mg PO DAILY Qty: 14 0RF cefadroxil 500 mg capsule 1,000 mg PO BID Qty: 56 0RF Continued aspirin 81 MG tablet 81 mg PO DAILY acetaminophen 500 MG tablet 1,000 mg PO BID PRN PRN (Reason: Pain) ascorbic acid (vitamin C) [Vitamin C] 500 MG tablet 1,000 mg PO DAILY quetiapine 300 mg Tablet 300 mg PO QHS docusate sodium [Colace] 100 mg Capsule 100 mg PO DAILY buprenorphine HCl 8 mg Tablet, Sublingual 8 mg SUBLINGUAL TID duloxetine 60 mg Capsule,Delayed Release(Dr/Ec) 90 mg PO DAILY pregabalin 150 mg Capsule 100 mg PO TID carvedilol 6.25 mg tablet 6.25 mg PO DAILY levetiracetam [Keppra] 750 mg Tablet 750 mg PO BID Discontinued levofloxacin 750 mg tablet 750 mg PO DAILY Qty: 5 0RF cephalexin 500 mg capsule 500 mg PO Q6 Qty: 40 0RF Referrals / Follow Up: Harshad Karimi MD [Primary Care Provider] - Disposition Disposition (needs filled in before D/C Order can be placed): Home, Self Care Charges/Coding Visit Charges Inpatient E&M: 89029 Disch Hosp >30min
== END 2022-08-30 15:26 | disposition home or self-care (01) | DRG 603 ==
LOC: ED 08-27 01:22 → MS3 08-27 02:43
PROVIDERS: Admitting Provider Family Medicine; Emergency Provider Emergency Medicine; PCP Family Medicine; Visit Provider Internal Medicine
DX: L03.113 Cellulitis of right upper limb (principal); E78.5 Hyperlipidemia, unspecified; Z89.612 Acquired absence of left leg above knee; G40.909 Epilepsy, unspecified, not intractable, without status epilepticus; F19.11 Other psychoactive substance abuse, in remission; M79.10 Myalgia, unspecified site; I10 Essential (primary) hypertension; Z20.822 Contact with and (suspected) exposure to COVID-19; Z79.82 Long term (current) use of aspirin; Z86.14 Personal history of Methicillin resistant Staphylococcus aureus infection
CPT/HCPCS: 36415; 73218; 80048; 80202; 83605; 85025; 85652; 86140; 87040; 87070; 87205; 87428; 99285; J7040; J7050; A4216; J2405

== ENCOUNTER 2022-10-21 19:57 | Emergency (ER) | payer OTHER, SELFPAY ==
[2022-10-21] VITALS (11 sets, daily range): BP systolic 124–155; BP diastolic 84–99; PULSE 88–98; RESP 12–18; TEMP 36.8; O2SAT 65–98; BMI 39.6
--- NOTE | 2022-10-21 20:01 | CT_ITS ---
INDICATION: Neuro deficit, acute, stroke suspected EXAMINATION: CT BRAIN - CT Head Stroke Protocol W/O Contrast Injection TECHNIQUE: Multiple axial images were obtained of the head without intravenous contrast. A radiation dose optimization technique was used for this scan. IV Contrast dosage and agent: None. COMPARISON: FINDINGS: BRAIN PARENCHYMA: No intra- or extra-axial hemorrhage. No evidence of acute infarct.
--- NOTE | 2022-10-21 20:01 | CT_ITS ---
INDICATION: Neuro deficit, acute, stroke suspected EXAMINATION: CT BRAIN WITH CONTRAST TECHNIQUE: Routine carotid CT angiogram protocol was performed without and with IV contrast. In addition, images were obtained of the [place]. NASCET criteria using the distal ICAs for comparison were used for evaluation of stenoses. 3D reconstructions were reviewed. A radiation dose optimization technique was used for this scan. IV Contrast dosage and agent: 100 mL [id number] COMPARISON: None. FINDINGS: --CTA NECK: AORTIC ARCH AND BRANCHES: Normal anatomy, patent. RIGHT CCA: No occlusion, significant stenosis or dissection. RIGHT ICA: No occlusion, significant stenosis or dissection. LEFT CCA: No occlusion, significant stenosis or dissection. LEFT ICA: No occlusion, significant stenosis or dissection. RIGHT VERTEBRAL ARTERY: No occlusion, significant stenosis or dissection. LEFT VERTEBRAL ARTERY: No occlusion, significant stenosis or dissection. NECK SOFT TISSUES: 2.1 cm right thyroid nodule. --CTA HEAD: --Anterior circulation: ICAs: No significant stenosis at the intracranial/visualized segments. ACAs: No significant stenosis at the visualized segments. ACOM: Present. MCAs: No significant stenosis at the visualized segments. --Posterior circulation: PCOMs: Not well visualized. phone engineer: No significant stenosis at the visualized segments. BASILAR ARTERY: No significant stenosis. VERTEBRAL ARTERIES: No significant stenosis at the intradural/visualized segments. No evidence of intracranial aneurysm or vascular malformation. CT/STROKE CTA Head AND Neck W/Con IMPRESSION: 2.1 cm right thyroid nodule. Recommend nonemergent thyroid ultrasound to evaluate malignant potential. Negative CTA Carotid and CTA Brain. N.B. : The above Results were Read Back by Lul Jeronimo MD to Tito Morris MD, and understanding confirmed on 10/21/2022 20:46:06 (ET). Electronically Signed: Lul Jeronimo MD at 20:48 EDT ,
--- NOTE | 2022-10-21 20:02 | EDS_ITS ---
HPI History of Present Illness Chief Complaint: Stroke Alert Informant: EMS Narrative Narrative: Patient presents after a seizure and concern for stroke. 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 Per EMS who I spoke to, she was just at another facility within the last few days it sounds like for seizures. I do not have any data on her in our system available at this time. History is extremely limited as the patient is currently nonverbal. There is evidently a seizure at home. She was having a seizure when EMS arrived. They gave her Versed that stopped the seizure but she seems to have some left-sided weakness since then. I do not know if she is on any anticoagulation. I do not know her seizure meds at this time or any other meds. [facility] Medical History (Updated 10/22/22 @ 00:[address] Iftikhar Morris MD) Depression Seizures Substance abuse Allergy/AdvReac Type Severity Reaction Status Date / Time metoclopramide [From Reglan] Allergy shaking Verified 10/21/22 20:41 prochlorperazine Allergy Hives Verified 10/21/22 20:41 [From Compazine] promethazine [From Phenergan] Allergy Hives Verified 10/21/22 20:41 Social History Smoking Status: Never smoker ROS ROS ED ROS Narrative Unable to obtain due to patient nonverbal currently. EXAM Physical Exam Narrative Exam Narrative: Patient is brought in by squad and examined quickly in the paredes. Difficult to get a complete exam. She does have easy unlabored breathing. HEENT is difficult to assess. At first it looks like there may be some weakness of the left side of the face. But then she does move both lips up and down when I stroke the cheek. Both eyelids worked open up and closed. Eyes: I can see her iris is through partially open lids. When I open the lids more her eyes move and she looks up into the top of her head and looks a little bit toward the left. It is difficult to assess pupillary function because the eyes rolled back up into her head every time I open the lids. But looking through partially open lids, the pupils do look to be normal size. Lungs are clear bilaterally. Heart is regular. Abdomen is mildly obese but overall benign Const Vital Signs: 10/21/22 20:28 10/21/22 20:29 04/10/23 21:46 Temperature 98.3 F Temperature Source Temporal Pulse Rate 98 91 Respiratory Rate 15 12 Blood Pressure 155/91 H 150/94 H Blood Pressure Mean 112 112 Pulse Ox 98 94 Oxygen Delivery Method Room Air Room Air Room Air Oxygen Flow Rate (L/min) 10/21/22 21:46 10/21/22 22:01 10/21/22 23:04 Temperature Temperature Source Pulse Rate 91 Respiratory Rate 12 Blood Pressure 150/94 H 155/88 H Blood Pressure Mean 111 110 Pulse Ox 94 92 65 Oxygen Delivery Method Room Air Oxygen Flow Rate (L/min) 10/21/22 23:04 10/21/22 22:16 10/21/22 22:31 Temperature Temperature Source Pulse Rate 90 Respiratory Rate 17 Blood Pressure 145/99 H 137/86 H Blood Pressure Mean 114 101 Pulse Ox 96 86 93 Oxygen Delivery Method Nasal Cannula Oxygen Flow Rate (L/min) 2 10/21/22 22:46 10/21/22 23:01 10/21/22 23:16 Temperature Temperature Source Pulse Rate 91 88 89 Respiratory Rate 17 13 16 Blood Pressure 124/97 H 141/85 H 130/84 H Blood Pressure Mean 105 103 93 Pulse Ox 93 92 95 Oxygen Delivery Method Oxygen Flow Rate (L/min) 10/21/22 23:31 10/21/22 23:46 10/22/22 00:01 Temperature Temperature Source Pulse Rate 90 92 92 Respiratory Rate 17 18 17 Blood Pressure 146/91 H 137/90 H 144/94 H Blood Pressure Mean 109 104 109 Pulse Ox 90 97 97 Oxygen Delivery Method Oxygen Flow Rate (L/min) 10/22/22 00:16 10/22/22 00:31 Temperature Temperature Source Pulse Rate 95 Respiratory Rate 16 Blood Pressure 141/91 H 130/108 H Blood Pressure Mean 106 117 Pulse Ox 98 Oxygen Delivery Method Oxygen Flow Rate (L/min) MDM MDM MDM Narrative Medical decision making narrative: 20:07 My independent interpretation of her CT shows no sign of acute bleed. Final reading is pending. Final reading the CTA does note a thyroid nodule but that can be followed as an outpatient. After CT, we went back and did repeat exam. Patient is overall globally depressed but this may be from being postictal or even from the benzodiazepine that was given her. She has global weakness but there is no lateralizing finding. Exam is somewhat limited due to removal/amputation of left leg. But she can look left and right. There is no facial droop at all. Patient had a CT and CTA that showed no acute process. My individual interpretation of the CT showed no sign of acute bleeding. CBC showed nonspecific elevation of the white count. Electrolytes showed no marked abnormalities. Glucose was a bit up. Coags were normal. Troponin was negative. I discussed the case with neurologist Dr. Muhammad. She had also discussed the case with the family and was able to look up prior records. She feels that this is all likely pseudoseizure activity. She does not feel that admission is needed as long as she wakes up from the benzodiazepines. Patient also had Subutex stopped recently and has been frustrated with that and the family thinks this is increasing her pseudoseizure activity. Because of her seizure pseudoseizure activity and no clinical or radiographic evidence of a stroke, patient was not considered a tPA candidate. Patient has been watched here. She has gotten progressively more awake. Patient now is ANO x3. She states she has had seizures for a long time. She h as been on carbamazepine for almost 20 years. Keppra was just restarted a couple weeks ago. 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 She had approximately 16 surgeries in for staged amputation surgeries but at least she kept her life. She had surgery on her right arm more recently due to a compartment syndrome that occurred after a seizure. She would like to go home. We are trying to contact the family to come get her at this time. Lab Data Attestation: I reviewed the patient's lab results. Labs: Laboratory Results - last 24 hr 10/21/22 10/21/22 10/21/22 20:05 20:05 20:05 WBC 12.8 H RBC 4.57 Hgb 12.7 Hct 39.8 MCV 87.1 MCH 27.8 MCHC 31.9 L RDW Std Deviation 42.2 RDW Coeff of Adilia 13.4 Plt Count 277 MPV 10.8 Immature Gran % (Auto) 0.600 Neut % (Auto) 55.9 Lymph % (Auto) 30.5 [place] % (Auto) 9.0 Eos % (Auto) 3.1 Baso % (Auto) 0.9 Absolute Neuts (auto) 7.1 Absolute Lymphs (auto) 3.89 Nucleated RBC % 0 PT 13.1 INR 1.0 APTT 25.8 Sodium 136 Potassium 3.8 Chloride 103 Carbon Dioxide 32.0 Anion Gap 1 L BUN 14 Creatinine 1.00 Estim Creat Clear Calc 50.73 Est GFR (MDRD) Af Amer 73 Est GFR (MDRD) Non-Af 61 BUN/Creatinine Ratio 14.1 Glucose 220 H Calcium 9.2 Troponin I High Sens 4 Radiography Diagnostic Testing: Clinical Impression(s) from Imaging Studies Brain CT 10/21/22 20:01 IMPRESSION: 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 N.B. : The above Results were Read Back by Michael Pereira DO to IFTIKHAR MORRIS MD, and understanding confirmed on 10/21/2022 20:26:12 (ET). 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 N.B. : The above Results were Read Back by Michael Pereira DO to IFTIKHAR MORRIS MD, and understanding confirmed on 10/21/2022 20:26:12 (ET). Electronically Signed: Michael Pereira DO at 20:28 EDT , Head/Neck CTA 10/21/22 20:01 IMPRESSION: 2.1 cm right thyroid nodule. Recommend nonemergent thyroid ultrasound to evaluate malignant potential. Negative CTA Carotid and CTA Brain. N.B. : The above Results were Read Back by Lul Jeronimo MD to Iftikhar Morris MD, and understanding confirmed on 10/21/2022 20:46:06 (ET). Electronically Signed: Lul Jeronimo MD at 20:48 EDT , ADDENDUM: 10/21/222054 IMPRESSION: 2.1 cm right thyroid nodule. Recommend nonemergent thyroid ultrasound to evaluate malignant potential. Negative CTA Carotid and CTA Brain. N.B. : The above Results were Read Back by Lul Jeronimo MD to Iftikhar Morris MD, and understanding confirmed on 10/21/2022 20:46:06 (ET). Electronically Signed: Lul Jeronimo MD at 20:48 EDT , Chest X-Ray 10/21/22 20:55 IMPRESSION: No radiographic evidence of acute cardiopulmonary disease. Electronically Signed: Lul Jeronimo MD at 21:28 EDT , EKG Initial EKG: Comments: My independent interpretation the patient's EKG shows a normal sinus rhythm with overall rate at 99. No ventricular ectopy. Nonspecific ST and T wave change but no sign of acute infarct or ischemia. DE interval and QRS duration are normal. QTc is a bit long at 518 ms. Discharge Plan Triage Chief Complaint: Stroke Alert Other Complaint: Neuro S/Sx ED Provider: Iftikhar Morris Dx/Rx/DC Orders Clinical Impression: Seizure, Psychiatric pseudoseizure Instructions: ED Seizure, Recurrent (Adult) Primary Care Provider: Harshad Karimi Referrals: Harshad Karimi MD [Primary Care Provider] - 2 Days NOT,DEFINED [Non-Staff] - Activity Restrictions/Additional Instructions: Follow-up with your neurologist as soon as possible. Disposition Disposition: Home, Self Care Discharge Date/Time: 10/22/22 00:49
[2022-10-21 20:16] LABS: Absolute Lymphocyte Count 3.89 X10^3/uL (0.83-4.51); Absolute Neutrophil Count 7.1 X10^3/uL (2.0-7.7); Basophil# 0.12 X10^3/uL; Basophil% 0.9 % (0-1); Eosinophil# 0.39 X10^3/uL; Eosinophils% 3.1 % (0-5); Hematocrit 39.8 % (37-47); Hemoglobin 12.7 g/dL (12.0-15.0); Lymphocyte # 3.89 X10^3/ul (0.83-4.51); Lymphocyte % 30.5 % (19-41); Mean Corp Hgb Conc 31.9 g/dL (32-36); Mean Corpuscular Hgb 27.8 pg (27.0-32.0); Mean Corpuscular Volume 87.1 fL (81-99); Mean Platelet Vol. 10.8 fl (6.2-12.0); Monocyte# 1.15 X10^3/uL; NRBC Flagged by Analyzer 0 % (0-5); Neutrophil # 7.12 X10^3/uL (2.7-7.7); Neutrophil % 55.9 % (47-70); Platelet Count 277 K/mm3 (150-450); RBC Distribution Width CV 13.4 % (11.6-14.6); RBC Distribution Width SD 42.2 fl (35.1-43.9); Red Blood Count 4.57 M/mm3 (4.2-5.4); White Blood Count 12.8 K/mm3 (4.4-11.0)
[2022-10-21 20:33] LABS: Anion Gap 1 (5-15); BUN 14 mg/dL (7-18); BUN/Creat Ratio 14.1 RATIO (10-20); Calcium,Total 9.2 mg/dL (8.5-10.1); Chloride 103 mmol/L (98-107); EST Glomerular Filtration Rate 61 mL/min (>60); Est Glom Filt Rate - Afr Amer 73 mL/min (>60); Estimated Creatinine Clearance 50.73 ml/min; Glucose 220 mg/dL (74-106); Partial Thromboplast Time 25.8 Seconds (24.1-36.2); Potassium 3.8 mmol/L (3.5-5.1); Prothrombin Time (Protime)PT. 13.1 SECONDS (11.7-14.9); Sodium Level 136 mmol/L (136-145); Troponin-I HS 4 pg/mL (3.0-54.0)
--- NOTE | 2022-10-21 20:55 | RAD_ITS ---
INDICATION: Neuro deficit, acute, stroke suspected EXAMINATION/TECHNIQUE: X-RAY - XR Chest 1 View COMPARISON: None. FINDINGS: LUNGS: No consolidation, edema or effusion. No pneumothorax. MEDIASTINUM AND CARDIOVASCULAR STRUCTURES: Cardiac silhouette not enlarged. Central airways and mediastinal contour are unremarkable. RAD/Chest 1 View IMPRESSION: No radiographic evidence of acute cardiopulmonary disease. Electronically Signed: Lul Jeronimo MD at 21:28 EDT ,
[2022-10-22 00:01] VITALS: BP 144/94; PULSE 92; RESP 17; O2SAT 97
[2022-10-22 00:16] VITALS: BP 141/91; PULSE 95; RESP 16
[2022-10-22 00:31] VITALS: BP 130/108; O2SAT 98
== END 2022-10-22 00:49 | disposition home or self-care (01) ==
PROVIDERS: Emergency Provider Emergency Medicine; PCP Family Medicine; Visit Provider Emergency Medicine
DX: R56.9 Unspecified convulsions (principal); Z89.612 Acquired absence of left leg above knee; E04.1 Nontoxic single thyroid nodule; R53.1 Weakness
CPT/HCPCS: 70450; 70496; 70498; 71045; 80048; 84484; 85025; 85610; 85730; 93005; 99285; Q9967

== ENCOUNTER 2022-10-23 15:36 | Emergency (ER) | payer OTHER, SELFPAY ==
[2022-10-23 15:37] VITALS: BP 155/102; PULSE 112; RESP 18; TEMP 36.1; O2SAT 97
[2022-10-23 16:14] VITALS: BMI 36.9
[2022-10-23 16:39] LABS: Absolute Lymphocyte Count 3.02 X10^3/uL (0.83-4.51); Absolute Neutrophil Count 5.6 X10^3/uL (2.0-7.7); Basophil# 0.12 X10^3/uL; Basophil% 1.2 % (0-1); Eosinophil# 0.29 X10^3/uL; Hematocrit 40.5 % (37-47); Lymphocyte # 3.02 X10^3/ul (0.83-4.51); Lymphocyte % 30.8 % (19-41); Mean Corp Hgb Conc 32.1 g/dL (32-36); Mean Corpuscular Hgb 27.6 pg (27.0-32.0); Mean Platelet Vol. 10.8 fl (6.2-12.0); Monocyte# 0.76 X10^3/uL; Monocyte% 7.7 % (0-10); NRBC Flagged by Analyzer 0 % (0-5); Neutrophil # 5.57 X10^3/uL (2.7-7.7); Neutrophil % 56.7 % (47-70); Platelet Count 283 K/mm3 (150-450); RBC Distribution Width CV 13.3 % (11.6-14.6); RBC Distribution Width SD 41.6 fl (35.1-43.9); Red Blood Count 4.71 M/mm3 (4.2-5.4); White Blood Count 9.8 K/mm3 (4.4-11.0)
[2022-10-23 16:51] LABS: ALB/GLOB Ratio 0.8 RATIO (0.9-2.4); AST(SGOT) 30 U/L (15-37); Alanine Aminotransfer ALT/SGPT 37 U/L (13-56); Albumin, Serum 3.6 g/dL (3.2-5.0); Alkaline Phosphatase 104 U/L (45-117); Anion Gap 4 (5-15); BUN 10 mg/dL (7-18); BUN/Creat Ratio 10.8 RATIO (10-20); Calcium,Total 9.4 mg/dL (8.5-10.1); Chloride 102 mmol/L (98-107); Creatinine, Serum 0.93 mg/dL (0.55-1.02); EST Glomerular Filtration Rate 66 mL/min (>60); Est Glom Filt Rate - Afr Amer 80 mL/min (>60); Estimated Creatinine Clearance 54.54 ml/min; Globulin 4.3 g/dL (2.2-4.2); Glucose 246 mg/dL (74-106); Potassium 3.5 mmol/L (3.5-5.1); Protein, Total 7.9 g/dL (6.4-8.2); Sodium Level 134 mmol/L (136-145)
--- NOTE | 2022-10-23 17:05 | ED.RN ---
RN called to pt's room for seizure like activity. Pt laying in bed on her side, random jerking movements noted in both arms and leg. Pt opens eyes and speaks during seizure, reflexes intact, withdraws to pain. Episode last for 3-4 minutes, no postictal symptoms afterwards.
--- NOTE | 2022-10-23 17:11 | EX.ED.VIS.PS ---
HPI HPI - Psych History of Present Illness Chief Complaint: Seizure Detail of Chief Complaint: Depressed, self-harm, reported seizures Informant: patient and family (Son who is a physician called from [place] and spoke with Dr. Palencia. Daughter is present and I had a long conversation with her regarding her mother. These will be detailed in the HPI narrative) Onset/Context/Timing Onset: Weeks Context: Sudden Onset Conflict: - (Related to inappropriate drug use) Timing: Continuous, Intermittent and Waxes and wanes Current Severity: Difficult to assess Maximum Severity: Difficult to assess Worsened by: Situational factors (Per daughter) Relieved by: Nothing Associated Symptoms Associated Symptoms - Psych: Positive for Depressed, Change in Eating, Change in sleeping and Suicidal Thoughts; Negative for Decreased Interest, Guilt, Decreased Concentration, Hopelessness, Easily distracted, Grandiosity, Flight of Ideas, Increased activity, Pressured Speech, Threatening, Confusion, Paranoia, Visual Hallucinations or Auditory Hallucinations Specific plan (suicidal thought): Denies specific plan Narrative Narrative: Patient is a 57-year-old woman with 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 She developed compartment syndrome requiring fasciotomy and debridement of her right wrist and forearm. She informing that she had cancer and reason for removal of her leg. Daughter informed me that she had multiple surgeries due to complications from drug use that led to the loss of her limb. Daughter informed me that in 2019 her left because he did not know what else to do. She is presently lives alone. Patient does endorse poor p.o. intake difficulty caring for self. Daughter informed me that seizures occur prior to arrival of family members. They are uncertain why she is on anticonvulsant medication since her diagnosis is pseudoseizures. Patient informing that she was released from Dr. Morris service/care because of the illicit drug use/inappropriate use of medication prescribed. Patient's last dose was 7 days per daughter 10 days per patient. Patient presently denies headache, visual, ocular auditory symptoms. Patient has trouble speech or swelling. Patient denies cardiac respiratory symptoms. Patient denies nausea or vomiting. Patient denied incontinence of urine or stool. Patient denied biting her tongue Prior similar symptoms: Yes Recent Illness/Hospitalization: Yes [facility] Medical History Drug abuse Failure of outpatient treatment Generalized anxiety disorder History of drug overdose Hyperlipemia Hyperlipidemia Major depressive disorder, recurrent severe without psychotic features Opioid use disorder Seizures Unilateral above knee amputation Home Medications acetaminophen 500 mg tablet 1,000 mg PO BID PRN PRN Pain 05/20/18 [History Last Taken 06/23/19] ascorbic acid (vitamin C) 500 mg tablet (Vitamin C) 1,000 mg PO DAILY supplement 05/20/18 [History Last Taken 08/26/22] aspirin 81 mg tablet,delayed release 81 mg PO DAILY heart health 05/20/18 [History Last Taken 08/26/22] buprenorphine HCl 8 mg sublingual tablet 8 mg sublingual TID pain 07/12/21 [History Last Taken 08/26/22] docusate sodium 100 mg capsule (Colace) 100 mg PO DAILY constipation 07/12/21 [History Last Taken 08/26/22] duloxetine 60 mg capsule,delayed release 90 mg PO DAILY depression 07/12/21 [History Last Taken 08/26/22] pregabalin 150 mg capsule 100 mg PO TID phantom pain 07/12/21 [History Last Taken 08/26/22] quetiapine 300 mg tablet 300 mg PO QHS sleep 07/12/21 [History Last Taken 08/25/22] carvedilol 6.25 mg tablet 6.25 mg PO DAILY HTN 08/27/22 [History Last Taken 08/26/22] levetiracetam 750 mg tablet (Keppra) 750 mg PO BID seizures 08/27/22 [History Last Taken Unknown] cefadroxil 500 mg capsule 1,000 mg PO BID #56 caps 08/30/22 [Rx Last Taken Unknown] levofloxacin 750 mg tablet 750 mg PO DAILY #14 tabs 08/30/22 [Rx Last Taken Unknown] Allergy/AdvReac Type Severity Reaction Status Date / Time metoclopramide HCl Allergy shaking Verified 08/25/22 15:42 [From Reglan] prochlorperazine edisylate Allergy Hives Verified 08/25/22 15:42 [From Compazine] prochlorperazine maleate Allergy Hives Verified 08/25/22 15:42 [From Compazine] promethazine HCl Allergy Hives Verified 08/25/22 15:42 [From Phenergan] Surgical History H/O wrist surgery Social History household members: none Smoking Status: Never smoker alcohol intake: never substance use type: does not use ROS ROS ED Review of Systems ROS Unobtainable: due to mental condition Constitutional Constitutional ED: Denies chills, fever(s) or subjective Eyes Eyes: Denies blurry vision, change in vision or diplopia ENT ENT ED: Denies ear pain, rhinorrhea or sore throat Cardiovascular Cardiovascular: Denies chest pain, palpitations or racing heartbeat Respiratory/Chest Respiratory/Chest: Denies cough, dyspnea or dyspnea on exertion Gastrointestinal Gastrointestinal: Denies abdominal pain, diarrhea, nausea or vomiting Genitourinary Genitourinary ED: Denies dysuria, hematuria or urinary frequency Musculoskeletal Musculoskeletal: Denies arthralgias, back pain, myalgias or neck pain Integumentary Denies abscess, Abrasions or rash Neurologic Neurologic: Denies paresthesias or weakness Psychiatric Psychiatric: Reports anxiety, depression and suicidal thoughts; Denies suicidal ideation Endocrine Endocrinology: Denies polydipsia, polyphagia or polyuria Hematologic/Lymphatic Hematologic/Lymphatic: Denies easy bleeding or easy bruising EXAM Physical Exam Const Vital Signs: 10/23/22 15:37 Temperature 97 F L Temperature Source Temporal Pulse Rate 112 H Respiratory Rate 18 Blood Pressure 155/102 H Blood Pressure Mean 119 Pulse Ox 97 Oxygen Delivery Method Room Air Positive well nourished, well developed and obese; Negative for cachectic, contractures or unkempt General Appearance ED: well developed, NAD and pallor; Negative for unkempt, cachectic or contractures Nutritional Appearance: obese; Negative for cachectic HEENT Reports moist mucous membranes HEENT Narrative: Ears normal. Nares patent. Posterior pharynx out erythema or exudate. Uvula midline. normocephalic and atraumatic Eyes PERRL and EOMs intact bilaterally General Eye ED: Negative for pale conjunctiva or scleral icterus Neck no lymphadenopathy, supple and no JVD Resp normal respiratory effort and clear to auscultation bilaterally Cardio S1 normal heart sound, S2 normal heart sound and no murmurs Rate: tachycardic Rhythm: regular rhythm GI non-tender, non-distended and no masses Auscultation: normoactive bowel sounds Palpation: soft Back/Spine no CVA tenderness Extremity Extremity Narrative: Amputation left lower extremity at the hip. Well-healed scar due to compartment syndrome for inappropriate use of prescribed medicine right forearm and wrist healing without evidence of infection. Patient alleges sutures were left in and cause complications. Neuro oriented x3, CN's II-XII intact bilaterally and no sensory deficits noted Li Coma Scale: document GCS findings Spontaneous Obeys Commands Oriented 15 Sensorium / Orientation: alert Psych cooperative Appearance: grossly normal; Negative for unkempt Attitude: calm and evasive Activity / Motor Behavior: appropriate eye contact; Negative for psychomotor agitation, psychomotor slowing or hyperactive Speech: excessive Mood & Affect: depressed, sad, tearful and flat affect Thought Process: confused, confabulating and tangential Thought Content: suicidality Attention / Concentration: concentration grossly intact Memory / Cognition: other Difficult to assess in light of daughter and son stating that she is manipulative, confabulating and evasive. Insight: questionable Judgement: poor and questionable Skin Skin Narrative: Well-healed scars. General Skin Exam: pallor; Negative for jaundice Rashes: no rashes MDM MDM MDM Narrative Medical decision making narrative: In light of the conversation with the daughter Case management was consulted. Patient will need placement for depression and suicidal thoughts. Patient is difficult to assess because she is manipulative. She does have a diagnosis of borderline personality disorder. Records for transfer from [facility] reviewed. Patient did have compartment syndrome due to injection of prescribed medicines into her right forearm. History & Record Review Additional record(s) reviewed:: Prior inpatient record, Prior outpatient record, Prior ED visit and Prior labs Lab Data Attestation: I reviewed the patient's lab results. Lab results narrative: CBC is unremarkable/normal. Comprehensive metabolic panel is remarkable for glucose of 246 with a normal CO2 and anion gap. Ethanol 4.0. Talk screen is positive for benzodiazepine. Urinalysis is negative. Labs: Laboratory Results - last 24 hr 10/23/22 10/23/22 10/23/22 16:15 16:15 17:20 WBC 9.8 RBC 4.71 Hgb 13.0 Hct 40.5 MCV 86.0 MCH 27.6 MCHC 32.1 RDW Std Deviation 41.6 RDW Coeff of Adilia 13.3 Plt Count 283 MPV 10.8 Immature Gran % (Auto) 0.600 Neut % (Auto) 56.7 Lymph % (Auto) 30.8 Forrest % (Auto) 7.7 Eos % (Auto) 3.0 Baso % (Auto) 1.2 H Absolute Neuts (auto) 5.6 Absolute Lymphs (auto) 3.02 Nucleated RBC % 0 Sodium 134 L Potassium 3.5 Chloride 102 Carbon Dioxide 28.0 Anion Gap 4 L BUN 10 Creatinine 0.93 Estim Creat Clear Calc 54.54 Est GFR (MDRD) Af Amer 80 Est GFR (MDRD) Non-Af 66 BUN/Creatinine Ratio 10.8 Glucose 246 H Calcium 9.4 Total Bilirubin 0.40 AST 30 ALT 37 Alkaline Phosphatase 104 Total Protein 7.9 Albumin 3.6 Globulin 4.3 H Albumin/Globulin Ratio 0.8 L Urine Color Urine Clarity Urine pH Ur Specific [place] Urine Protein Urine Glucose (UA) Urine Ketones Urine Occult Blood Urine Nitrite Urine Bilirubin Urine Urobilinogen Ur Leukocyte Esterase Urine RBC Urine WBC Ur Squamous Epith Cells Urine Bacteria Urine Mucus Urine Opiates Screen Urine Methadone Screen Ur Barbiturates Screen Ur Phencyclidine Scrn Ur Amphetamines Screen MDMA (Ecstasy) Screen U Benzodiazepines Scrn Urine Cocaine Screen U Cannabinoids Screen Ur Drug Screen Comment Ethyl Alcohol 4.0 10/23/22 10/23/22 19:20 19:20 WBC RBC Hgb Hct MCV MCH MCHC RDW Std Deviation RDW Coeff of Adilia Plt Count MPV Immature Gran % (Auto) Neut % (Auto) Lymph % (Auto) Forrest % (Auto) Eos % (Auto) Baso % (Auto) Absolute Neuts (auto) Absolute Lymphs (auto) Nucleated RBC % Sodium Potassium Chloride Carbon Dioxide Anion Gap BUN Creatinine Estim Creat Clear Calc Est GFR (MDRD) Af Amer Est GFR (MDRD) Non-Af BUN/Creatinine Ratio Glucose Calcium Total Bilirubin AST ALT Alkaline Phosphatase Total Protein Albumin Globulin Albumin/Globulin Ratio Urine Color Yellow Urine Clarity Clear Urine pH 6.0 Ur Specific [place] 1.015 Urine Protein Negative Urine Glucose (UA) 100 H Urine Ketones Negative Urine Occult Blood Negative Urine Nitrite Negative Urine Bilirubin Negative Urine Urobilinogen Normal Ur Leukocyte Esterase 25 H Urine RBC 0 SEEN Urine WBC 0-5 SEEN Ur Squamous Epith Cells 0-5 SEEN Urine Bacteria 0 SEEN Urine Mucus 0 SEEN Urine Opiates Screen NEGATIVE Urine Methadone Screen NEGATIVE Ur Barbiturates Screen NEGATIVE Ur Phencyclidine Scrn NEGATIVE Ur Amphetamines Screen NEGATIVE MDMA (Ecstasy) Screen NEGATIVE U Benzodiazepines Scrn POSITIVE H Urine Cocaine Screen NEGATIVE U Cannabinoids Screen NEGATIVE Ur Drug Screen Comment Ethyl Alcohol Management Discussion w/another healthcare provider: painting and coating worker/Case management (painting and coating worker spoke to the daughter and son who is a physician. She made suggestion to her children. Patient was given resources. She is safe to go home. There is no indication for medical or psychiatric admission.) Discharge Plan Triage Chief Complaint: Seizure ED Provider: Edu Carvajal Dx/Rx/DC Orders Clinical Impression: Convulsion, non-epileptic, Phantom limb syndrome, Chronic pain syndrome, Psychogenic nonepileptic seizure, Confabulation, Borderline personality disorder in adult Instructions: ED Conversion Reaction Prescriptions: No Action aspirin 81 MG tablet 81 mg PO DAILY acetaminophen 500 MG tablet 1,000 mg PO BID PRN PRN (Reason: Pain) ascorbic acid (vitamin C) [Vitamin C] 500 MG tablet 1,000 mg PO DAILY quetiapine 300 mg Tablet 300 mg PO QHS docusate sodium [Colace] 100 mg Capsule 100 mg PO DAILY buprenorphine HCl 8 mg Tablet, Sublingual 8 mg SUBLINGUAL TID duloxetine 60 mg Capsule,Delayed Release(Dr/Ec) 90 mg PO DAILY pregabalin 150 mg Capsule 100 mg PO TID carvedilol 6.25 mg tablet 6.25 mg PO DAILY levetiracetam [Keppra] 750 mg Tablet 750 mg PO BID levofloxacin 750 mg tablet 750 mg PO DAILY Qty: 14 0RF cefadroxil 500 mg capsule 1,000 mg PO BID Qty: 56 0RF Primary Care Provider: Harshad Karimi Referrals: Harshad Karimi MD [Primary Care Provider] - As Needed Disposition Disposition: Home, Self Care
[2022-10-23] MEDS: Ondansetron 4 MG/2 ML Vial IV (18:37)
[2022-10-23 19:32] LABS: Bacteria 0 SEEN /hpf (None Seen); Mucous, Urine 0 SEEN /hpf (<or=2+); Red Blood Cells-Urine 0 SEEN /hpf (0-5)
[2022-10-23 19:33] LABS: Color, Urine Yellow (Yellow); Glucose, Dipstick 100 mg/dl (Normal); Ketone-Dipstick Negative (Negative); Leukocyte Esterase-Dipstick 25 /ul (Negative); Nitrite-Dipstick Negative (Negative); Occult Blood-Urine Negative /ul (Negative); Protein-Dipstick Negative (Negative); Specific Gravity, Urine 1.015 (1.002-1.030); Urine Bilirubin Dipstick Negative (Negative); Urine Clarity Clear (Clear); Urine Urobilinogen Normal (Normal)
[2022-10-23 19:40] LABS: Squamous Epithelial Cells - UA 0-5 SEEN /hpf (5-10); White Blood Cells 0-5 SEEN /hpf (0-5)
[2022-10-23 19:56] LABS: Amphetamine Urine VISTA NEGATIVE (<1000 ng/mL); Barbiturate Urine VISTA NEGATIVE (< 200 ng/mL); Benzodiazepine Urine VISTA POSITIVE (< 200 ng/mL); Cocaine Urine VISTA NEGATIVE (< 300 ng/mL); Ecstacy Urine VISTA NEGATIVE (< 500 ng/mL); Methadone Urine VISTA NEGATIVE (< 300 ng/mL); PCP Urine VISTA NEGATIVE (< 25 ng/mL); THC Urine VISTA NEGATIVE (< 50 ng/mL); Vista UDS pH Range 5
[2022-10-23 21:33] VITALS: BP 148/81; PULSE 80; RESP 16; O2SAT 98
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
== END 2022-10-23 21:36 | disposition home or self-care (01) ==
PROVIDERS: Emergency Provider Emergency Medicine; PCP Family Medicine; Visit Provider Emergency Medicine
DX: F44.5 Conversion disorder with seizures or convulsions (principal); G54.7 Phantom limb syndrome without pain; F60.3 Borderline personality disorder; R45.851 Suicidal ideations; G89.4 Chronic pain syndrome; Z60.2 Problems related to living alone; F41.9 Anxiety disorder, unspecified; F32.A Depression, unspecified; E66.9 Obesity, unspecified; E78.5 Hyperlipidemia, unspecified
CPT/HCPCS: 80053; 80307; 81001; 82077; 83036; 85025; 87811; 96374; 99283; A4216; J2405

== ENCOUNTER 2022-10-25 20:54 | Emergency (ER) | payer OTHER, SELFPAY ==
[2022-10-25 20:55] VITALS: BP 162/102; PULSE 93; RESP 18; TEMP 36.6; O2SAT 96; BMI 37.3
[2022-10-25 21:29] LABS: Absolute Lymphocyte Count 3.86 X10^3/uL (0.83-4.51); Absolute Neutrophil Count 7.7 X10^3/uL (2.0-7.7); Basophil# 0.11 X10^3/uL; Basophil% 0.8 % (0-1); Eosinophil# 0.39 X10^3/uL; Hematocrit 40.6 % (37-47); Hemoglobin 13.2 g/dL (12.0-15.0); Lymphocyte # 3.86 X10^3/ul (0.83-4.51); Lymphocyte % 29.6 % (19-41); Mean Corp Hgb Conc 32.5 g/dL (32-36); Mean Corpuscular Hgb 28.3 pg (27.0-32.0); Mean Corpuscular Volume 86.9 fL (81-99); Mean Platelet Vol. 10.8 fl (6.2-12.0); Monocyte# 0.92 X10^3/uL; Monocyte% 7.1 % (0-10); NRBC Flagged by Analyzer 0 % (0-5); Neutrophil # 7.69 X10^3/uL (2.7-7.7); Neutrophil % 59.1 % (47-70); Platelet Count 282 K/mm3 (150-450); RBC Distribution Width CV 13.6 % (11.6-14.6); RBC Distribution Width SD 42.9 fl (35.1-43.9); Red Blood Count 4.67 M/mm3 (4.2-5.4)
--- NOTE | 2022-10-25 21:30 | EDS_ITS ---
HPI HPI - Psych History of Present Illness Chief Complaint: Mental Health Narrative Narrative: 57-year-old female here with suicidal ideation. She states has been going through a lot recently and has been off her Suboxone. States she wants to kill herself by either slitting her wrists or going to traffic. Also endorses having seizures. States has been compliant with Keppra, last dose was last night. No focal weakness. No drug use. No vomiting. No abdominal pain or chest pain endorsed. Denies plan. Denies homicidal ideation, auditory visual hallucinations [facility] Medical History Drug abuse Failure of outpatient treatment Generalized anxiety disorder History of drug overdose Hyperlipemia Hyperlipidemia Major depressive disorder, recurrent severe without psychotic features Opioid use disorder Seizures Unilateral above knee amputation Home Medications acetaminophen 500 mg tablet 1,000 mg PO BID PRN PRN Pain 05/20/18 [History Last Taken 06/23/19] ascorbic acid (vitamin C) 500 mg tablet (Vitamin C) 1,000 mg PO DAILY supplement 05/20/18 [History Last Taken 08/26/22] aspirin 81 mg tablet,delayed release 81 mg PO DAILY heart health 05/20/18 [History Last Taken 08/26/22] buprenorphine HCl 8 mg sublingual tablet 8 mg sublingual TID pain 07/12/21 [History Last Taken 08/26/22] docusate sodium 100 mg capsule (Colace) 100 mg PO DAILY constipation 07/12/21 [History Last Taken 08/26/22] duloxetine 60 mg capsule,delayed release 90 mg PO DAILY depression 07/12/21 [ History Last Taken 08/26/22] pregabalin 150 mg capsule (Lyrica) 100 mg PO TID phantom pain 07/12/21 [History Last Taken 08/26/22] quetiapine 300 mg tablet (Seroquel) 300 mg PO QHS sleep 07/12/21 [History Last Taken 08/25/22] carvedilol 6.25 mg tablet 6.25 mg PO DAILY HTN 08/27/22 [History Last Taken 08/26/22] levetiracetam 750 mg tablet (Keppra) 750 mg PO BID seizures 08/27/22 [History Last Taken Unknown] cefadroxil 500 mg capsule 1,000 mg PO BID #56 caps 08/30/22 [Rx Last Taken Unknown] levofloxacin 750 mg tablet 750 mg PO DAILY #14 tabs 08/30/22 [Rx Last Taken Unknown] Allergy/AdvReac Type Severity Reaction Status Date / Time metoclopramide [From Reglan] Allergy shaking Verified 10/25/22 21:04 metoclopramide HCl Allergy shaking Verified 10/25/22 21:04 [From Reglan] prochlorperazine Allergy Hives Verified 10/25/22 21:04 [From Compazine] prochlorperazine edisylate Allergy Hives Verified 10/25/22 21:04 [From Compazine] prochlorperazine maleate Allergy Hives Verified 10/25/22 21:04 [From Compazine] promethazine [From Phenergan] Allergy Hives Verified 10/25/22 21:04 promethazine HCl Allergy Hives Verified 10/25/22 21:04 [From Phenergan] Surgical History H/O wrist surgery Social History (System 10/24/22 @ 09:01 by Audrey Herbert) household members: none Smoking Status: Never smoker alcohol intake: never substance use type: does not use ROS ROS ED ROS Narrative Constitutional: Denies fever HEENT: Denies sore throat Neck: Denies neck pain Cardiovascular: Denies chest pain, syncope Respiratory: Denies shortness of breath GI: Denies nausea vomiting or abdominal pain : Denies changes in urinary habits Musculoskeletal: Denies muscle or joint pain Neurologic: Denies numbness weakness or loss of sensation Skin denies rash Psych: Endorses suicidal ideation EXAM Physical Exam Narrative Exam Narrative: Nursing triage notes reviewed, Vital signs reviewed Constitutional: please see mdm HENT: MMM Eyes: Pupils equal round and reactive to light, Extraocular muscles intact Neck: No stridor, no JVD, full neck ROM Lungs: Clear to auscultation, No wheezing or rales. No increased work of breathing, no conversational dyspnea, no accessory muscle use, no nasal flaring. No respiratory distress noted Heart: Regular rate and rhythm, No murmurs, No rubs and No gallops, 2+ distal pulses (radial, femoral, posterior tibial) in all extremities Abdomen: Soft, there is no tenderness, rigidity, rebound or guarding, no obvious peritoneal signs, no palpable pulsatile abdominal masses, no auscultated abdominal bruit : No CVAT Extremities: No edema Neuro: No focal neurological deficits, cranial nerves II through XII intact, 5/5 strength in all extremities. Intact sensation to light touch in all extremities, 2+ reflexes bilateral patella dens. Normal gait. No ataxia. Skin: No rash or lesions noted Psych: Endorses suicidal ideation, goal-directed thought process, not responding to internal stimuli Const Vital Signs: 10/25/22 20:55 10/25/22 22:28 10/25/22 23:17 Temperature 97.8 F Temperature Source Temporal Pulse Rate 93 Respiratory Rate 18 18 17 Blood Pressure 162/102 H Blood Pressure Mean 122 Pulse Ox 96 Oxygen Delivery Method Room Air Room Air Room Air MDM MDM MDM Narrative Medical decision making narrative: Chief Complaint: Suicidal ideation External records reviewed: Recent ED visit on 10/23/2022 discharge of borderline personality disorder Patient was hemodynamically stable, afebrile, nontoxic-appearing. Medical clearance labs were obtained given suicidal ideation to determine patient would benefit from further psychiatric evaluation. The patient was medically cleared. Patient is awaiting final behavioral health evaluation and final disposition. Factors affecting care: History of seizures, PNES, depression, anxiety Social determinants of health: History of mental health disorder History obtained from others: EMS Shared decision making: I will have a discussion with the patient and or visitors regarding risk/benefits of further testing or admission. They will be made aware of of the risk/benefits inherent in this decision they will be given the opportunity to voice understanding. Consults: Behavioral health Lab Data Attestation: I reviewed the patient's lab results. Lab results narrative: CBC with leukocytosis suggestive of systemic inflammation, no anemia or thrombocytopenia BMP without evidence of significant electrolyte abnormalities, no anion gap, no acute kidney injury. Labs: Laboratory Results - last 24 hr 10/25/22 10/25/22 10/25/22 21:22 21:22 21:22 WBC 13.0 H RBC 4.67 Hgb 13.2 Hct 40.6 MCV 86.9 MCH 28.3 MCHC 32.5 RDW Std Deviation 42.9 RDW Coeff of Adilia 13.6 Plt Count 282 MPV 10.8 Immature Gran % (Auto) 0.400 Neut % (Auto) 59.1 Lymph % (Auto) 29.6 [place] % (Auto) 7.1 Eos % (Auto) 3.0 Baso % (Auto) 0.8 Absolute Neuts (auto) 7.7 Absolute Lymphs (auto) 3.86 Nucleated RBC % 0 Sodium 138 Potassium 3.9 Chloride 107 Carbon Dioxide 26.0 Anion Gap 5 BUN 14 Creatinine 0.96 Estim Creat Clear Calc 52.84 Est GFR (MDRD) Af Amer 76 Est GFR (MDRD) Non-Af 63 BUN/Creatinine Ratio 14.5 Glucose 140 H Calcium 9.0 Ethyl Alcohol < 3.0 Treatment and Re-Evaluation Narrative: Patient was signed out to overnight physician pending behavioral health evaluation and potential admission. Discharge Plan Triage Chief Complaint: Mental Health ED Provider: Levi Platt Dx/Rx/DC Orders Prescriptions: No Action aspirin 81 MG tablet 81 mg PO DAILY acetaminophen 500 MG tablet 1,000 mg PO BID PRN PRN (Reason: Pain) ascorbic acid (vitamin C) [Vitamin C] 500 MG tablet 1,000 mg PO DAILY quetiapine [Seroquel] 300 mg Tablet 300 mg PO QHS docusate sodium [Colace] 100 mg Capsule 100 mg PO DAILY buprenorphine HCl 8 mg Tablet, Sublingual 8 mg SUBLINGUAL TID duloxetine 60 mg Capsule,Delayed Release(Dr/Ec) 90 mg PO DAILY pregabalin [Lyrica] 150 mg Capsule 100 mg PO TID carvedilol 6.25 mg tablet 6.25 mg PO DAILY levetiracetam [Keppra] 750 mg Tablet 750 mg PO BID levofloxacin 750 mg tablet 750 mg PO DAILY Qty: 14 0RF cefadroxil 500 mg capsule 1,000 mg PO BID Qty: 56 0RF Primary Care Provider: Harshad Karimi Referrals: Harshad Karimi MD [Primary Care Provider] -
--- NOTE | 2022-10-25 21:33 | EKG12_ITS ---
Test Reason : PSYCH Blood Pressure : / mmHG Vent. Rate : 091 BPM Atrial Rate : 091 BPM P-R Int : 170 ms QRS Dur : 092 ms QT Int : 408 ms P-R-T Axes : 054 -27 000 degrees QTc Int : 501 ms Normal sinus rhythm Low voltage QRS Cannot rule out Anterior infarct , age undetermined Prolonged QT Abnormal ECG Confirmed by JUAN JIMENEZ ([id number]), book or script editor MARILYN HAMPTON ([id number]) on 10/29/2022 7:35:55 AM Referred By: Confirmed By:JUAN JIMENEZ
[2022-10-25 21:42] LABS: Anion Gap 5 (5-15); BUN 14 mg/dL (7-18); BUN/Creat Ratio 14.5 RATIO (10-20); Chloride 107 mmol/L (98-107); Creatinine, Serum 0.96 mg/dL (0.55-1.02); EST Glomerular Filtration Rate 63 mL/min (>60); Est Glom Filt Rate - Afr Amer 76 mL/min (>60); Estimated Creatinine Clearance 52.84 ml/min; Glucose 140 mg/dL (74-106); Potassium 3.9 mmol/L (3.5-5.1); Sodium Level 138 mmol/L (136-145)
[2022-10-25] MEDS: levETIRAcetam 750 MG Tablet PO (21:59)
[2022-10-25 22:05] LABS: Alcohol, Blood (Medical)-Serum < 3.0 mg/dL
[2022-10-25 22:28] VITALS: RESP 18
[2022-10-25] MEDS: Ondansetron ODT 4 MG Tablet PO (22:39)
[2022-10-25] MEDS: buprenorphine HCL 8 MG TAB.SUBL SL (22:39)
[2022-10-25 23:17] VITALS: RESP 17
[2022-10-26] VITALS (7 sets, daily range): BP systolic 119–130; BP diastolic 60–68; PULSE 88–90; RESP 16; TEMP 37.2; O2SAT 94–95
[2022-10-26 00:30] LABS: Amphetamine Urine VISTA NEGATIVE (<1000 ng/mL); Barbiturate Urine VISTA NEGATIVE (< 200 ng/mL); Benzodiazepine Urine VISTA NEGATIVE (< 200 ng/mL); Cocaine Urine VISTA NEGATIVE (< 300 ng/mL); Ecstacy Urine VISTA NEGATIVE (< 500 ng/mL); Methadone Urine VISTA NEGATIVE (< 300 ng/mL); PCP Urine VISTA NEGATIVE (< 25 ng/mL); THC Urine VISTA NEGATIVE (< 50 ng/mL); Vista UDS pH Range 6
[2022-10-26] MEDS: QUEtiapine 100 MG Tablet 300 MG PO (01:46)
[2022-10-26] MEDS: Pregabalin 50 MG Capsule 100 MG PO (01:46)
--- NOTE | 2022-10-26 02:47 | NURSING ---
[facility] CALLED WITH ACCEPTANCE FOR [facility] --DR PAK--DISCOVERY UNIT--RN TO RN--[id number] OPTION 2
--- NOTE | 2022-10-26 02:50 | NURSING ---
CALLED PHYSICIANS TO SET UP TRANSPORT TO [facility]-- E[place] GIVEN [place] [id number]
== END 2022-10-26 07:24 ==
PROVIDERS: Emergency Provider Emergency Medicine; PCP Family Medicine; Visit Provider Emergency Medicine
DX: R45.851 Suicidal ideations (principal); R56.9 Unspecified convulsions; F41.9 Anxiety disorder, unspecified; F32.A Depression, unspecified; E78.5 Hyperlipidemia, unspecified; Z20.822 Contact with and (suspected) exposure to COVID-19; Z79.899 Other long term (current) drug therapy
CPT/HCPCS: 80048; 80307; 82077; 85025; 87426; 93005; 99285

== ENCOUNTER 2022-11-13 21:27 | Emergency (ER) | payer OTHER, SELFPAY ==
[2022-11-13 21:28] VITALS: BP 141/93; PULSE 82; RESP 16; TEMP 36.6; O2SAT 96; BMI 38.2
--- NOTE | 2022-11-13 22:13 | EX.ED.DYSGE1 ---
HPI History of Present Illness Chief Complaint: Seizure Narrative Narrative: Patient had a seizure tonight. She has a history of complex partial seizures. She is under the care of neurology Dr. Eduardo, she saw him several days ago. She is been having breakthrough seizures. Her neighbor saw her have 1 tonight, and called EMS who brought her here. She feels fine now, she has a little issue with speech but that is normal after every one of her breakthrough seizures. She has been on Keppra for the past 2 months, again following with the neurologist on this. Was on carbamazepine for partial complex seizures in the past. 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 she was for some reason dropped from her pain management doctor and refused more Subutex, she was admitted to a psychiatric facility in [place] a couple weeks ago, she had a seizure there and they transferred her to [place], they did a lot of test for her seizures, those tests are now in the hands of her neurologist, and he is aware of all of that, they gave her a prescription for Subutex to last her until yesterday. She has not had a dose since then, she is feeling shaky and like she is in withdrawal. She has an appointment this week for a new provider for that, she saw someone today who refused her because she is on it for chronic pain control and not addiction. No recent illness. Denies any injury from her breakthrough seizures, she gets an aura/warning, so she goes and lays down. [facility] Medical History Depression Drug abuse Failure of outpatient treatment Generalized anxiety disorder History of drug overdose Hyperlipemia Hyperlipidemia Major depressive disorder, recurrent severe without psychotic features Opioid use disorder Seizures Seizures Substance abuse Unilateral above knee amputation Home Medications acetaminophen 500 mg tablet 1,000 mg PO BID PRN PRN Pain 05/20/18 [History Last Taken 06/23/19] ascorbic acid (vitamin C) 500 mg tablet (Vitamin C) 1,000 mg PO DAILY supplement 05/20/18 [History Last Taken 08/26/22] aspirin 81 mg tablet,delayed release 81 mg PO DAILY heart health 11/07/18 [History Last Taken 08/26/22] buprenorphine HCl 8 mg sublingual tablet 8 mg sublingual TID pain 07/12/21 [History Last Taken 08/26/22] docusate sodium 100 mg capsule (Colace) 100 mg PO DAILY constipation 07/12/21 [History Last Taken 08/26/22] duloxetine 60 mg capsule,delayed release 90 mg PO DAILY depression 07/12/21 [History Last Taken 08/26/22] pregabalin 150 mg capsule (Lyrica) 100 mg PO TID phantom pain 07/12/21 [History Last Taken 08/26/22] quetiapine 300 mg tablet (Seroquel) 300 mg PO QHS sleep 07/12/21 [History Last Taken 08/25/22] carvedilol 6.25 mg tablet 6.25 mg PO DAILY HTN 08/27/22 [History Last Taken 08/26/22] levetiracetam 750 mg tablet (Keppra) 750 mg PO BID seizures 08/27/22 [History Last Taken Unknown] cefadroxil 500 mg capsule 1,000 mg PO BID #56 caps 08/30/22 [Rx Last Taken Unknown] levofloxacin 750 mg tablet 750 mg PO DAILY #14 tabs 08/30/22 [Rx Last Taken Unknown] buprenorphine HCl 8 mg sublingual tablet 8 mg sublingual BID #14 tabs 11/13/22 [Rx Last Taken Unknown] pregabalin 100 mg capsule (Lyrica) 100 mg PO TID #21 caps 11/13/22 [Rx Last Taken Unknown] Allergy/AdvReac Type Severity Reaction Status Date / Time metoclopramide [From Reglan] Allergy shaking Verified 11/13/22 21:32 metoclopramide HCl Allergy shaking Verified 11/13/22 21:32 [From Reglan] prochlorperazine Allergy Hives Verified 11/13/22 21:32 [From Compazine] prochlorperazine edisylate Allergy Hives Verified 11/13/22 21:32 [From Compazine] prochlorperazine maleate Allergy Hives Verified 11/13/22 21:32 [From Compazine] promethazine [From Phenergan] Allergy Hives Verified 11/13/22 21:32 promethazine HCl Allergy Hives Verified 11/13/22 21:32 [From Phenergan] Surgical History H/O wrist surgery Social History household members: none Smoking Status: Never smoker alcohol intake: never substance use type: does not use ROS ROS ED Constitutional Constitutional ED: Denies chills or fever(s) Eyes Eyes: Denies change in vision or diplopia ENT ENT ED: Denies rhinorrhea or sore throat Cardiovascular Cardiovascular: Denies chest pain or palpitations Respiratory/Chest Respiratory/Chest: Denies cough or dyspnea Gastrointestinal Gastrointestinal: Denies abdominal pain, diarrhea, nausea or vomiting Genitourinary Genitourinary ED: Denies dysuria or hematuria Musculoskeletal Musculoskeletal: Reports extremity pain; Denies back pain or neck pain Integumentary Denies abscess or rash Neurologic Neurologic: Reports as per HPI and seizures; Denies headache(s), paresthesias or weakness Psychiatric Psychiatric: Denies anxiety or suicidal thoughts EXAM Physical Exam Const Vital Signs: 11/13/22 21:28 Temperature 98 F Temperature Source Temporal Pulse Rate 82 Respiratory Rate 16 Blood Pressure 141/93 H Blood Pressure Mean 109 Pulse Ox 96 Oxygen Delivery Method Room Air Positive well nourished and well developed Constitutional Narrative: Well-appearing conversive in full sentences alert and oriented x3 and in no distress General Appearance ED: well developed and NAD HEENT Reports moist mucous membranes normocephalic and atraumatic Eyes PERRL and EOMs intact bilaterally Neck full ROM and supple Resp normal respiratory effort and clear to auscultation bilaterally Cardio regular rate, regular rhythm and no murmurs GI non-tender and non-distended Auscultation: normoactive bowel sounds Palpation: soft Back/Spine no CVA tenderness General Back: other FROM Extremity normal to inspection Extremity Narrative: Status post left hip disarticulation. Surgical scars on right upper extremity well-healed benign no signs of dehiscence or infection, all compartments soft, full range of motion throughout all joints including her right upper extremity. General Extremety ED: Negative for edema, pulses abnormal or tenderness General Extremity: Negative for edema or pulses abnormal Neuro oriented x3, CN's II-XII intact bilaterally and no sensory deficits noted Sensorium / Orientation: awake and alert Motor Exam: strength 5/5 throughout Skin no rashes or lesions noted and no wounds MDM MDM MDM Narrative Medical decision making narrative: Patient states she does not need more of an emergent work-up. I tend to agree. Her exam is benign, she is well-appearing and her vital signs are normal. She states she is okay going home, she lives on her own cares for herself and is mostly in and out of a wheelchair, she states she feels that she is completely able to do that tonight. She is asking for prescription for Subutex and Lyrica, she ran out of both of them yesterday the Lyrica really helps with her phantom pain of the left lower extremity. I think that is totally reasonable. We will write her for 1 week. I did confirm with the patient's [facility] report the doses that she is on, the doses that she says she is on is congruent with this. Discharge Plan Triage Chief Complaint: Seizure ED Provider: Vadim Mathias Dx/Rx/DC Orders Clinical Impression: Breakthrough seizure, Chronic pain Instructions: ED Seizure, Recurrent (Adult) Prescriptions: New pregabalin [Lyrica] 100 mg capsule 100 mg PO TID Qty: 21 0RF buprenorphine HCl 8 mg tablet, sublingual 8 mg sublingual BID Qty: 14 0RF No Action aspirin 81 MG tablet 81 mg PO DAILY acetaminophen 500 MG tablet 1,000 mg PO BID PRN PRN (Reason: Pain) ascorbic acid (vitamin C) [Vitamin C] 500 MG tablet 1,000 mg PO DAILY quetiapine [Seroquel] 300 mg Tablet 300 mg PO QHS docusate sodium [Colace] 100 mg Capsule 100 mg PO DAILY buprenorphine HCl 8 mg Tablet, Sublingual 8 mg SUBLINGUAL TID duloxetine 60 mg Capsule,Delayed Release(Dr/Ec) 90 mg PO DAILY pregabalin [Lyrica] 150 mg Capsule 100 mg PO TID carvedilol 6.25 mg tablet 6.25 mg PO DAILY levetiracetam [Keppra] 750 mg Tablet 750 mg PO BID levofloxacin 750 mg tablet 750 mg PO DAILY Qty: 14 0RF cefadroxil 500 mg capsule 1,000 mg PO BID Qty: 56 0RF Primary Care Provider: Harshad Karimi Referrals: doctor, your [Other] - Keep [facility] appointment Harshad Karimi MD [Primary Care Provider] - Disposition Disposition: Home, Self Care
[2022-11-13] MEDS: buprenorphine HCL 8 MG TAB.SUBL SL (23:08)
[2022-11-13] MEDS: Pregabalin 50 MG Capsule 100 MG PO (23:08)
[2022-11-13 23:20] VITALS: BP 134/77; PULSE 72; RESP 15; O2SAT 98
== END 2022-11-13 23:21 | disposition home or self-care (01) ==
PROVIDERS: Emergency Provider Emergency Medicine; PCP Family Medicine; Visit Provider Emergency Medicine
DX: R56.9 Unspecified convulsions (principal); G54.6 Phantom limb syndrome with pain; G89.29 Other chronic pain
CPT/HCPCS: 99285

== ENCOUNTER 2023-01-02 16:16 | Emergency (ER) | payer OTHER, SELFPAY ==
[2023-01-02 16:17] VITALS: PULSE 102; RESP 15; TEMP 36.4; O2SAT 95; BMI 38.9
[2023-01-02 16:19] VITALS: BP 150/96
--- NOTE | 2023-01-02 16:19 | EX.ED.DYSGE1 ---
HPI History of Present Illness Chief Complaint: General Illness [facility] Medical History Depression Drug abuse Failure of outpatient treatment Generalized anxiety disorder History of drug overdose Hyperlipemia Hyperlipidemia Major depressive disorder, recurrent severe without psychotic features Opioid use disorder Seizures Seizures Substance abuse Unilateral above knee amputation Home Medications acetaminophen 500 mg tablet 1,000 mg PO BID PRN PRN Pain 05/20/18 [History Last Taken 06/23/19] ascorbic acid (vitamin C) 500 mg tablet (Vitamin C) 1,000 mg PO DAILY supplement 05/20/18 [History Last Taken 08/26/22] aspirin 81 mg tablet,delayed release 81 mg PO DAILY heart health 05/20/18 [History Last Taken 08/26/22] buprenorphine HCl 8 mg sublingual tablet 8 mg sublingual TID pain 07/12/21 [History Last Taken 08/26/22] docusate sodium 100 mg capsule (Colace) 100 mg PO DAILY constipation 07/12/21 [History Last Taken 08/26/22] duloxetine 60 mg capsule,delayed release 90 mg PO DAILY depression 07/12/21 [History Last Taken 08/26/22] pregabalin 150 mg capsule (Lyrica) 100 mg PO TID phantom pain 07/12/21 [History Last Taken 08/26/22] quetiapine 300 mg tablet (Seroquel) 300 mg PO QHS sleep 07/12/21 [History Last Taken 08/25/22] carvedilol 6.25 mg tablet 6.25 mg PO DAILY HTN 08/27/22 [History Last Taken 08/26/22] levetiracetam 750 mg tablet (Keppra) 750 mg PO BID seizures 08/27/22 [History Last Taken Unknown] cefadroxil 500 mg capsule 1,000 mg PO BID #56 caps 08/30/22 [Rx Last Taken Unknown] levofloxacin 750 mg tablet 750 mg PO DAILY #14 tabs 08/30/22 [Rx Last Taken Unknown] buprenorphine HCl 8 mg sublingual tablet 8 mg sublingual BID #14 tabs 11/13/22 [Rx Last Taken Unknown] pregabalin 100 mg capsule (Lyrica) 100 mg PO TID #21 caps 11/13/22 [Rx Last Taken Unknown] cephalexin 500 mg capsule 500 mg PO TID 3 days #9 caps 01/02/23 [Rx Last Taken Unknown] Allergy/AdvReac Type Severity Reaction Status Date / Time metoclopramide [From Reglan] Allergy shaking Verified 01/02/23 16:19 metoclopramide HCl Allergy shaking Verified 01/02/23 16:19 [From Reglan] prochlorperazine Allergy Hives Verified 01/02/23 16:19 [From Compazine] prochlorperazine edisylate Allergy Hives Verified 01/02/23 16:19 [From Compazine] prochlorperazine maleate Allergy Hives Verified 01/02/23 16:19 [From Compazine] promethazine [From Phenergan] Allergy Hives Verified 01/02/23 16:19 promethazine HCl Allergy Hives Verified 01/02/23 16:19 [From Phenergan] Surgical History H/O wrist surgery Social History household members: none Smoking Status: Never smoker alcohol intake: never substance use type: does not use EXAM Physical Exam Const Vital Signs: 01/02/23 16:17 01/02/23 16:19 01/02/23 16:20 Temperature 97.6 F L Temperature Source Temporal Pulse Rate 102 H Respiratory Rate 15 Respiratory Effort Normal Non-Labored Respiratory Pattern Normal Blood Pressure 150/96 H Blood Pressure Mean 114 Pulse Ox 95 Oxygen Delivery Method Room Air 01/02/23 17:37 01/02/23 18:16 01/02/23 20:00 Temperature 97.9 F Temperature Source Temporal Pulse Rate 88 85 87 Respiratory Rate 16 17 16 Respiratory Effort Respiratory Pattern Blood Pressure 136/78 H 152/94 H 148/92 H Blood Pressure Mean 97 113 110 Pulse Ox 98 95 94 Oxygen Delivery Method Room Air Room Air Room Air MDM MDM MDM Narrative Medical decision making narrative: HISTORY OF PRESENT ILLNESS: 57-year-old female complains of feeling suddenly ill this afternoon. She notes she developed chills she complained of fever. She also complains of associated chest pain with numbness in the right arm. She states the symptoms have been constant ongoing. Denies any slurred speech, facial drooping or visual loss. Denies any falls or recent head trauma. Patient denies sudden onset of pain, no tearing sensation, no migratory symptoms, no new numbness, weakness or loss of sensation. Patient denies family history or personal history of Marfan syndrome or Richy-Danlos. the patient denies recent surgery in the last 4 weeks or immobilization in the last 3 days, denies previous diagnosis of PE, hemoptysis, unilateral leg swelling or malignancy with treatment the last 6 months. No estrogen use noted. She does note she had a prior history of DVT and denies any blood thinner use. REVIEW OF SYSTEMS: Pertinent positives: Fever, chills, chest pain, focal weakness and numbness Pertinent negatives: Abdominal pain, frequency, urgency PHYSICAL EXAM: Nursing triage notes reviewed, Vital signs reviewed Constitutional: please see mdm HENT: MMM Eyes: Pupils equal round and reactive to light, Extraocular muscles intact Neck: No stridor, no JVD, full neck ROM Lungs: Clear to auscultation, No wheezing or rales. No increased work of breathing, no conversational dyspnea, no accessory muscle use, no nasal flaring. No respiratory distress noted Heart: Regular rate and rhythm, No murmurs, No rubs and No gallops, 2+ distal pulses (radial, femoral bilaterally) in all extremities Abdomen: Soft, there is no tenderness, rigidity, rebound or guarding, no obvious peritoneal signs, no palpable pulsatile abdominal masses, no auscultated abdominal bruit : No CVAT Extremities: No edema, left complete leg amputation Neuro: Alert and oriented x3, neuro exam at baseline, cranial nerves II through XII are intact. No pain with extraocular muscle movement. There is negative test of skew. Normal speech. 5 of 5 strength in upper and lower extremities in flexion extension. Intact sensation to light touch in upper and lower extremity dermatomes. No truncal or extremity ataxia. No dysdiadochokinesia. Normal gait. 2+ reflexes. No meningeal signs. Negative Babinski. NIH of 0 Skin: No rash or lesions noted MEDICAL DECISION MAKING: Chief Complaint: Chest pain, fever External records reviewed: Ejection fraction from 2016 was 55% Factors affecting care: none seizure disorder (on Keppra), chronic pain syndrome, obesity, pyelonephritis Social determinants of health: none History obtained from others: none Consults: none ALL IMAGES (IF OBTAINED) HAVE BEEN PERSONALLY REVIEWED AND INTERPRETED BY MYSELF. MDM Narrative: 57-year-old female comes in with acute onset of chest pain and a focal neurologic complaint. Vitals are stable initial exam had no focal neurodeficits she had NIH of 0. Low suspicion for acute CVA. A low suspicion for acute CVA. I was more concerned about aortic dissection, PE, ACS, arrhythmia, anemia, pneumonia. She had no symptoms of UTI or pyelonephritis however I am also concerned about urosepsis. I obtained a broad lab and imaging work-up to further elucidate etiology patient complaints. Performed a bedside ultrasound which did not reveal any evidence of pericardial effusion or obvious dissection. At this point decided to obtain a CTA of the chest aorta protocol. CTA was negative for PE or dissection. Labs showed no evidence of STEMI inflammation, lactate was negative ruling out endorgan hypoperfusion, is no JOE. BNP troponin were both negative. No evidence of heart failure or ACS. No arrhythmia on EKG. Patient heart score is low risk. She is well for discharge home. Etiology is unclear however there is no evidence of any life or limb threatening thoracic pathology at this time my impression and suspicion was shared with the patient. Patient did complain of urinary frequency. She cannot provide a urine sample. Given symptoms I will give prophylactic antibiotics (Keflex). The patient and/or family, caregivers express understanding. The patient and/or family, caregivers agrees with the plan. Total critical care time today provided was at least 0 minutes. This excludes separately billable procedures. Critical care time (if documented) is secondary to the patient having high probability of clinically significant/life threatening deterioration in the patient's condition which required my urgent intervention. Shared decision making: I will have a discussion with the patient and or visitors regarding risk/benefits of further testing or admission. They will be made aware of of the risk/benefits inherent in this decision they will be given the opportunity to voice understanding. Lab Data Attestation: I reviewed the patient's lab results. Lab results narrative: EKG with normal sinus rhythm, normal axis, prolonged QT, no obvious STEMI CBC without leukocytosis, severe anemia, no thrombocytopenia. BMP without evidence of significant electrolyte abnormalities, no anion gap, no acute kidney injury. BNP within normal limits suggestive of no excessive volume overload, ventricular stretch or transmural pressure Troponin is negative, no evidence of myocardial ischemia Lactate is wnl indicating no end-organ hypoperfusion and/or hypoxia. Labs: Laboratory Results - last 24 hr 01/02/23 01/02/23 01/02/23 17:35 17:35 17:35 WBC 9.9 RBC 4.77 Hgb 14.0 Hct 42.1 MCV 88.3 MCH 29.4 MCHC 33.3 RDW Std Deviation 43.7 RDW Coeff of [place] 13.4 Plt Count 249 MPV 10.7 Immature Gran % (Auto) 0.400 Neut % (Auto) 63.9 Lymph % (Auto) 22.7 [place] % (Auto) 9.4 Eos % (Auto) 2.4 Baso % (Auto) 1.2 H Absolute Neuts (auto) 6.4 Absolute Lymphs (auto) 2.26 Nucleated RBC % 0 Sodium 138 Potassium 4.4 Chloride 104 Carbon Dioxide 31.0 Anion Gap 3 L BUN 16 Creatinine 0.82 Estim Creat Clear Calc 61.86 Est GFR (MDRD) Af Amer 91 Est GFR (MDRD) Non-Af 75 BUN/Creatinine Ratio 19.4 Glucose 139 H Lactic Acid Calcium 9.2 Troponin I High Sens 4 B-Natriuretic Peptide 47.4 01/02/23 17:35 WBC RBC Hgb Hct MCV MCH MCHC RDW Std Deviation RDW Coeff of [place]ilia Plt Count MPV Immature Gran % (Auto) Neut % (Auto) Lymph % (Auto) [place] % (Auto) Eos % (Auto) Baso % (Auto) Absolute Neuts (auto) Absolute Lymphs (auto) Nucleated RBC % Sodium Potassium Chloride Carbon Dioxide Anion Gap BUN Creatinine Estim Creat Clear Calc Est GFR (MDRD) Af Amer Est GFR (MDRD) Non-Af BUN/Creatinine Ratio Glucose Lactic Acid 1.0 Calcium Troponin I High Sens B-Natriuretic Peptide Radiography Diagnostic Testing: Clinical Impression(s) from Imaging Studies Chest CTA 01/02/23 16:55 IMPRESSION: Normal CTA chest examination, without a demonstrated pulmonary embolism or arterial dissection. Electronically Signed: George Juan MD at 18:57 EDT , Discharge Plan Triage Chief Complaint: General Illness ED Provider: Levi Platt Dx/Rx/DC Orders Clinical Impression: Chest pain, Urinary frequency Instructions: Chest Pain [facility] Prescriptions: New cephalexin 500 mg capsule 500 mg PO TID 3 Days Qty: 9 0RF No Action aspirin 81 MG tablet 81 mg PO DAILY acetaminophen 500 MG tablet 1,000 mg PO BID PRN PRN (Reason: Pain) ascorbic acid (vitamin C) [Vitamin C] 500 MG tablet 1,000 mg PO DAILY quetiapine [Seroquel] 300 mg Tablet 300 mg PO QHS docusate sodium [Colace] 100 mg Capsule 100 mg PO DAILY buprenorphine HCl 8 mg Tablet, Sublingual 8 mg SUBLINGUAL TID duloxetine 60 mg Capsule,Delayed Release(Dr/Ec) 90 mg PO DAILY pregabalin [Lyrica] 150 mg Capsule 100 mg PO TID carvedilol 6.25 mg tablet 6.25 mg PO DAILY levetiracetam [Keppra] 750 mg Tablet 750 mg PO BID levofloxacin 750 mg tablet 750 mg PO DAILY Qty: 14 0RF cefadroxil 500 mg capsule 1,000 mg PO BID Qty: 56 0RF pregabalin [Lyrica] 100 mg capsule 100 mg PO TID Qty: 21 0RF buprenorphine HCl 8 mg tablet, sublingual 8 mg sublingual BID Qty: 14 0RF Primary Care Provider: Harshad Karimi Referrals: Harshad Karimi MD [Primary Care Provider] - Activity Restrictions/Additional Instructions: Thank you for trusting us with your care today! Please take Tylenol (2 pills, 650 mg), ibuprofen (2 pills, 400 mg) every 6 hours as needed for pain and fever control. Please take antibiotics as prescribed Please return to the emergency department if your symptoms change or worsen. Specifically if you lose consciousness if you develop vomiting or cannot take antibiotics by mouth Please follow with your primary care physician for further outpatient evaluation and management. Disposition Disposition: Home, Self Care Discharge Date/Time: 01/02/23 20:43
--- NOTE | 2023-01-02 16:55 | CT_ITS ---
STUDY: CTA CHEST REASON FOR EXAM: Female, 57 years old. Chest pain, focal weakness rule out dissection RADIATION DOSAGE (If Supplied By Facility): CTDIvol = ( 12.60 ) mGy, DLP = ( 537.25 ) mGycm TECHNIQUE: The examination was performed with the intravenous administration of IV 75mL Isovue-370. Post-processing of the angiographic images was performed, with multiplanar reformation and 3D reconstruction. Individualized dose optimization techniques were used for this CT. COMPARISON: None. FINDINGS: Normal enhancement of the main pulmonary artery and right and left pulmonary arteries. Normal enhancement of the bilateral peripheral pulmonary arteries. There is no demonstrated pulmonary embolism. Normal thoracic aorta and visualized great vessels. There is no demonstrated aortic dissection. Normal heart and pericardium. There are calcifications of the coronary arteries. Normal mediastinum. Normal hilar regions. Normal visualized trachea and bronchi. The lungs are well expanded. Normal pulmonary parenchyma. Normal pleura. Normal chest wall structures. There are degenerative changes of thoracic spine. Normal visualized upper abdomen. CT/CTA Chest W/WO Contrast IMPRESSION: Normal CTA chest examination, without a demonstrated pulmonary embolism or arterial dissection. Electronically Signed: George Juan MD at 18:57 EDT ,
[2023-01-02] MEDS: 0.9% Normal Saline 1,000 ML 999 ML IV (17:36)
[2023-01-02 17:37] VITALS: BP 136/78; PULSE 88; RESP 16; TEMP 36.6; O2SAT 98
[2023-01-02 17:48] LABS: Absolute Lymphocyte Count 2.26 X10^3/uL (0.83-4.51); Absolute Neutrophil Count 6.4 X10^3/uL (2.0-7.7); Basophil# 0.12 X10^3/uL; Basophil% 1.2 % (0-1); Eosinophil# 0.24 X10^3/uL; Eosinophils% 2.4 % (0-5); Hematocrit 42.1 % (37-47); Lymphocyte # 2.26 X10^3/ul (0.83-4.51); Lymphocyte % 22.7 % (19-41); Mean Corp Hgb Conc 33.3 g/dL (32-36); Mean Corpuscular Hgb 29.4 pg (27.0-32.0); Mean Corpuscular Volume 88.3 fL (81-99); Mean Platelet Vol. 10.7 fl (6.2-12.0); Monocyte# 0.93 X10^3/uL; Monocyte% 9.4 % (0-10); NRBC Flagged by Analyzer 0 % (0-5); Neutrophil # 6.35 X10^3/uL (2.7-7.7); Neutrophil % 63.9 % (47-70); Platelet Count 249 K/mm3 (150-450); RBC Distribution Width CV 13.4 % (11.6-14.6); RBC Distribution Width SD 43.7 fl (35.1-43.9); Red Blood Count 4.77 M/mm3 (4.2-5.4); White Blood Count 9.9 K/mm3 (4.4-11.0)
[2023-01-02 18:07] LABS: BNP,B-Type NATRIURETIC PEPTIDE 47.4 pg/mL (0-100)
[2023-01-02 18:09] LABS: Anion Gap 3 (5-15); BUN 16 mg/dL (7-18); BUN/Creat Ratio 19.4 RATIO (10-20); Calcium,Total 9.2 mg/dL (8.5-10.1); Chloride 104 mmol/L (98-107); Creatinine, Serum 0.82 mg/dL (0.55-1.02); EST Glomerular Filtration Rate 75 mL/min (>60); Est Glom Filt Rate - Afr Amer 91 mL/min (>60); Estimated Creatinine Clearance 61.86 ml/min; Glucose 139 mg/dL (74-106); Potassium 4.4 mmol/L (3.5-5.1); Sodium Level 138 mmol/L (136-145); Troponin-I HS 4 pg/mL (3.0-54.0)
[2023-01-02 18:16] VITALS: BP 152/94; PULSE 85; RESP 17; O2SAT 95
[2023-01-02 20:00] VITALS: BP 148/92; PULSE 87; RESP 16; O2SAT 94
--- NOTE | 2023-01-02 20:32 | ED.RN ---
pt. requested urinalysis but unable to produce urine. Instructed to follow up with PCP.
== END 2023-01-02 20:43 | disposition home or self-care (01) ==
PROVIDERS: Emergency Provider Emergency Medicine; PCP Family Medicine; Visit Provider Emergency Medicine
DX: R07.9 Chest pain, unspecified (principal); G40.909 Epilepsy, unspecified, not intractable, without status epilepticus; R35.0 Frequency of micturition; N12 Tubulo-interstitial nephritis, not specified as acute or chronic; G89.4 Chronic pain syndrome; E78.5 Hyperlipidemia, unspecified; Z86.718 Personal history of other venous thrombosis and embolism; Z79.899 Other long term (current) drug therapy; E66.9 Obesity, unspecified
CPT/HCPCS: 71275; 80048; 83605; 83880; 84484; 85025; 93005; 96360; 96361; 99285; J7030; Q9967; A4216

== ENCOUNTER 2023-05-08 19:28 | Emergency (ER) | payer OTHER, SELFPAY ==
[2023-05-08] VITALS (7 sets, daily range): BP systolic 134–191; BP diastolic 82–116; PULSE 98–125; RESP 10–20; TEMP 36.4; O2SAT 96–98; BMI 39.6
--- NOTE | 2023-05-08 19:33 | CT_ITS ---
We are attempting to reach an attending provider to discuss findings. An addendum with communication details will be sent when the communication is complete. STUDY: CT BRAIN WITHOUT CONTRAST REASON FOR EXAM: Female, 58 years old. Neuro deficit, acute, stroke suspected RADIATION DOSAGE (If Supplied By Facility): CTDIvol = ( ) mGy, DLP = ( 812.98 ) mGycm TECHNIQUE: Transaxial CT imaging of the brain was performed without administration of intravenous contrast material. Individualized dose optimization techniques were used for this CT. COMPARISON: July 15, 2022 FINDINGS: Normal soft tissue structures. Normal calvarium. Normal size ventricles and extra-axial spaces for the patient''s age. Normal white matter tracts of the cerebral hemispheres. 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 Thalami. Normal brainstem. Normal cerebellum. There is no intracranial hemorrhage. There are no findings of an acute ischemic infarction. Normal visualized paranasal sinuses. CT/STROKE Brain/Head without Cont IMPRESSION: No acute disease. 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 Electronically Signed: Cruzito Plasencia MD at 19:54 EDT ,
--- NOTE | 2023-05-08 19:35 | CT_ITS ---
We are attempting to reach an attending provider to discuss findings. An addendum with communication details will be sent when the communication is complete. STUDY: CTA HEAD AND NECK WITH CONTRAST REASON FOR EXAM: Female, 58 years old. Neuro deficit, acute, stroke suspected RADIATION DOSAGE (If Supplied By Facility): CTDIvol = ( 20.55 ) mGy, DLP = ( 701.15 ) mGycm TECHNIQUE: CT angiography was performed with a multi-detector CT scanner. Data acquisition was obtained from the skull base through the vertex following intravenous administration of IV 100mL Isovue-370. MIP images were reconstructed from the axial data set. Post-processing of the angiographic images was performed, with multiplanar reformation and 3D reconstruction. Individualized dose optimization techniques were used for this CT. COMPARISON: CTA brain October 21, 2022 FINDINGS: Normal bilateral petrous carotid arteries. Normal right cavernous carotid artery with a normal supraclinoid bifurcation. Normal left cavernous carotid artery with a normal supraclinoid bifurcation. Normal right A1 segments of the anterior cerebral artery. Normal left A1 segments of the anterior cerebral artery. Normal intact anterior communicating artery (ACOM). Normal bilateral A2 segments of the anterior cerebral arteries. Normal right M1 and M2 segments of the middle cerebral arteries, with a normal M1 bifurcation. Normal left M1 of the middle cerebral arteries, with a normal M1 bifurcation. Possible occlusion anterior branch middle cerebral artery on the left. Posterior M2 branch appears normal. There is non-visualization of the right posterior communicating artery (PCOM). There is non-visualization of the left posterior communicating artery (PCOM). Normal bilateral vertebral arteries. Normal basilar artery with a normal basilar bifurcation. The visualized bilateral superior cerebellar (SCA) arteries are normal. Normal bilateral P1, P2 and visualized P3 segments of the posterior cerebral arteries. There is no demonstrated aneurysm of the [place] of [place]. There is no demonstrated abnormality of the visualized brain. AORTIC ARCH: Normal visualized aortic arch. Normal origins of the brachiocephalic, left common carotid, and left subclavian arteries. RIGHT CAROTID ARTERIES: Normal right common carotid artery (CCA). Normal right common carotid bulb. Normal origin of the right internal carotid (ICA) artery without a hemodynamically significant stenosis. Normal visualized cervical portion of the right internal carotid artery. Normal origin of the right external carotid artery (ECA). LEFT CAROTID ARTERIES: Normal left common carotid artery (CCA). Normal left common carotid bulb. Normal origin of the left internal carotid (ICA) artery without a hemodynamically significant stenosis. Normal visualized cervical portion of the left internal carotid artery. Normal origin of the left external carotid artery (ECA). VERTEBRAL ARTERIES: Normal bilateral vertebral arteries. CT/STROKE CTA Head AND Neck W/Con IMPRESSION: Questionable occlusion M2 branch left middle cerebral artery Electronically Signed: Cruzito Plasencia MD at 20:33 EDT ,
--- NOTE | 2023-05-08 19:36 | EDS_ITS ---
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 Patient texted with her daughter around 1 PM. Oh 1 to 2 hours ago she texted another friend stating that she just was not feeling well. She was found by a neighbor in her garage. Apparently she was doing something with her dog and fell. The neighbor was helping her into the house when the patient had reported seizure activity. She then was noticed to have garbled speech, right-sided weakness and a right-sided facial droop. Patient is also complaining of blurry/double vision. Patient does not appear to be on any blood thinners. [facility] Medical History Depression Drug abuse Failure of outpatient treatment Generalized anxiety disorder History of drug overdose Hyperlipemia Hyperlipidemia Major depressive disorder, recurrent severe without psychotic features Opioid use disorder Seizures Seizures Substance abuse Unilateral above knee amputation Home Medications acetaminophen 500 mg tablet 1,000 mg PO BID PRN PRN Pain 05/20/18 [History Last Taken 06/23/19] ascorbic acid (vitamin C) 500 mg tablet (Vitamin C) 1,000 mg PO DAILY supplement 05/20/18 [History Last Taken 08/26/22] aspirin 81 mg tablet,delayed release 81 mg PO DAILY heart health 05/20/18 [History Last Taken 08/26/22] buprenorphine HCl 8 mg sublingual tablet 8 mg sublingual TID pain 07/12/21 [History Last Taken 08/26/22] docusate sodium 100 mg capsule (Colace) 100 mg PO DAILY constipation 07/12/21 [History Last Taken 08/26/22] duloxetine 60 mg capsule,delayed release 90 mg PO DAILY depression 07/12/21 [History Last Taken 08/26/22] pregabalin 150 mg capsule (Lyrica) 100 mg PO TID phantom pain 07/12/21 [History Last Taken 08/26/22] quetiapine 300 mg tablet (Seroquel) 300 mg PO QHS sleep 07/12/21 [History Last Taken 08/25/22] carvedilol 6.25 mg tablet 6.25 mg PO DAILY HTN 08/27/22 [History Last Taken 08/26/22] levetiracetam 750 mg tablet (Keppra) 750 mg PO BID seizures 08/27/22 [History Last Taken Unknown] cefadroxil 500 mg capsule 1,000 mg (2 x 500 mg) PO BID #56 caps 08/30/22 [Rx Last Taken Unknown] levofloxacin 750 mg tablet 750 mg PO DAILY #14 tabs 08/30/22 [Rx Last Taken Unknown] buprenorphine HCl 8 mg sublingual tablet 8 mg sublingual BID #14 tabs 11/13/22 [Rx Last Taken Unknown] pregabalin 100 mg capsule (Lyrica) 100 mg PO TID #21 caps 11/13/22 [Rx Last Taken Unknown] cephalexin 500 mg capsule 500 mg PO TID 3 days #9 caps 01/02/23 [Rx Last Taken Unknown] Allergy/AdvReac Type Severity Reaction Status Date / Time metoclopramide [From Reglan] Allergy shaking Verified 05/08/23 19:48 metoclopramide HCl Allergy shaking Verified 05/08/23 19:48 [From Reglan] prochlorperazine Allergy Hives Verified 05/08/23 19:48 [From Compazine] prochlorperazine edisylate Allergy Hives Verified 05/08/23 19:48 [From Compazine] prochlorperazine maleate Allergy Hives Verified 05/08/23 19:48 [From Compazine] promethazine [From Phenergan] Allergy Hives Verified 05/08/23 19:48 promethazine HCl Allergy Hives Verified 05/08/23 19:48 [From Phenergan] Surgical History H/O wrist surgery Social History household members: none Smoking Status: Never smoker alcohol intake: never substance use type: does not use ROS ROS ED Review of Systems ROS Unobtainable: due to mental status EXAM Physical Exam Const Vital Signs: 05/08/23 19:29 05/08/23 19:39 05/08/23 19:49 Temperature 97.6 F L Temperature Source Temporal Pulse Rate 125 H Respiratory Rate 20 H Blood Pressure 191/116 H Blood Pressure Mean 141 Pulse Ox 97 Oxygen Delivery Method Room Air Room Air 05/08/23 19:50 05/08/23 20:03 05/08/23 20:30 Temperature Temperature Source Pulse Rate 109 H 101 H 102 H Respiratory Rate 11 L 19 H 10 L Blood Pressure 148/99 H 155/99 H 134/82 H Blood Pressure Mean 115 117 99 Pulse Ox 96 98 97 Oxygen Delivery Method Room Air Room Air 05/08/23 21:00 Temperature Temperature Source Pulse Rate 100 Respiratory Rate 10 L Blood Pressure 161/90 H Blood Pressure Mean 113 Pulse Ox 97 Oxygen Delivery Method Room Air Positive obese; Negative for unkempt General Appearance ED: NAD; Negative for unkempt Nutritional Appearance: obese HEENT Reports moist mucous membranes Eyes Eyes Narrative: Patient immediately looks up every time I try to open her eyes to look at her pupils. On repeated attempts she is visualized looking up again. Unable to fully eval pupils due to this. She seems to purposely try to keep her eyes shut. Neck supple Chest Wall inspection of chest normal and palpation of chest normal Resp normal respiratory effort and clear to auscultation bilaterally Extremity Extremity Narrative: Left lower extremity amputation at the level of the hip General Extremety ED: Negative for edema General Extremity: Negative for edema Neuro Neuro Narrative: Left facial droop, does not follow commands for range of motion of the eyes. Garbled speech. Weakness of the right upper and lower extremity with paresthesias. See NIH below. Sensorium / Orientation: alert and oriented to person Psych Appearance: Negative for unkempt Skin no wounds NIHSS NIHSS Initial: 1a Level of Consciousness: 0 1b LOC Questions (Score 2 if aphasic/stupor): 2 1c LOC Commands (Only score 1st attempt): 1 2 Best Gaze (If aphasic, use reflexive mvmts.): 1 3 Visual: 0 4 Facial Palsy: 1 5 Motor Arm Right (UN = amputation/fusion): 3 5 Motor Arm Left: 0 6 Motor Leg Right: 3 6 Motor Leg Left: UN 7 Limb ataxia (Only + if out of proportion): 0 8 Sensory (Aphasia/stupor=0 or 1, coma=2): 2 9 Best Language: 2 10 Dysarthria (mute, coma=2, intubated=UN): 0 11 Extinction and Inattention (only scored if +): 0 Total Score: 15 MDM MDM MDM Narrative Medical decision making narrative: Patient's evaluated for acute neurologic symptoms as well as mental status change. While stroke alert is called and patient does seem to have right-sided deficits I am highly suspicious for another etiology besides stroke such as ICH, Sj's paralysis, pseudoseizure, conversion disorder or possible metabolic encephalopathy. OUt of an abundance of caution a stroke alert is called. Last known well seems to be 1300 which puts patient outside of the TNK window. In addition to CT and CTA of the brain as well as basic metabolic work-up also check ammonia level, urinalysis, urine drug, alcohol level and Depakote level. CT of the brain is negative for acute intracranial process. Does show prior stroke. Patient valuated by telestroke from [facility] who agrees that patient is not a TNK candidate due to last known well outside of the window. Her CBC shows mild leukocytosis of 14.1 with no shift. Exact etiology of this is uncertain but differential includes infection as well as reactive. CMP largely on remarkable when her ammonia is normal. Valproic acid level is essentially negative as well as her alcohol level. CK level is 88 which is not consistent with rhabdomyolysis. Notified by radiology that patient's CTA shows a possible M2 occlusion on the left. They recommend perfusion study further evaluation is is not completely obvious. This would be consistent with patient's presentation and deficits. [facility] neurology is immediately contacted back as patient will now require transfer for further evaluation of possible LVO. Patient's neurologic symptoms do improve slightly but she continues to have significant stroke symptoms. See nursing documentation. Patient informed of possible LVO and need for transfer. She is agreeable. Her children are also contacted and informed of this plan of care. Patient is excepted to [facility] by Dr. Plasencia and she will go to the ER. [facility] is contacted for critical transport. History & Record Review Discussion w/independent historian: EMS personnel and Patient Lab Data Attestation: I reviewed the patient's lab results. Labs: Laboratory Results - last 24 hr 05/08/23 19:50 WBC 14.1 H RBC 4.99 Hgb 15.6 H Hct 44.9 MCV 90.0 MCH 31.3 MCHC 34.7 RDW Std Deviation 39.4 RDW Coeff of Adilia 12.0 Plt Count 301 MPV 10.4 Immature Gran % (Auto) 0.400 Neut % (Auto) 56.3 Lymph % (Auto) 33.4 Ogle % (Auto) 7.5 Eos % (Auto) 1.6 Baso % (Auto) 0.8 Absolute Neuts (auto) 7.9 H Absolute Lymphs (auto) 4.70 H Nucleated RBC % 0 PT 12.9 INR 1.0 APTT 27.9 Sodium 138 Potassium 3.1 L Chloride 102 Carbon Dioxide 31.0 Anion Gap 5 BUN 11 Creatinine 0.84 Estim Creat Clear Calc 59.65 Est GFR (MDRD) Af Amer 90 Est GFR (MDRD) Non-Af 74 BUN/Creatinine Ratio 13.1 Glucose 129 H Calcium 9.4 Ammonia < 10.0 L Total Creatine Kinase 88 Troponin I High Sens 6 Valproic Acid < 3 L Ethyl Alcohol < 3.0 Radiography Chest X-Ray - ED: 1 View, Read by ED Physician, Read by Radiologist and No Acute Disease Diagnostic Testing: Clinical Impression(s) from Imaging Studies Brain CT 05/08/23 19:33 IMPRESSION: No acute disease. 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 Electronically Signed: Cruzito Plasencia MD at 19:54 EDT Reading Location ID and State: [address] [place] [address] Tel , Service support , ADDENDUM: 05/08/232000 IMPRESSION: No acute disease. 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 N.B. : The above Results were Read Back by Cruzito Plasencia MD to dr piper MD, and understanding confirmed on 05/08/2023 19:54:39 (ET). Electronically Signed: Cruzito Plasencia MD at 19:54 EDT Reading Location ID and State: [facility] / [place] Tel , Service support , ADDENDUM: 05/08/232002 IMPRESSION: No acute disease. 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 N.B. : The above Results were Read Back by Cruzito Plasencia MD to Patria Schultz DO, and understanding confirmed on 05/08/2023 19:56:19 (ET). Electronically Signed: Cruzito Plasencia MD at 19:54 EDT , Head/Neck CTA 05/08/23 19:35 IMPRESSION: Questionable occlusion M2 branch left middle cerebral artery Electronically Signed: Cruzito Plasencia MD at 20:33 EDT , ADDENDUM: 05/08/232052 IMPRESSION: Questionable occlusion M2 branch left middle cerebral artery N.B. : The above Results were Read Back by Cruzito Plasencia MD to Patria Schultz DO, and understanding confirmed on 05/08/2023 20:46:20 (ET). Electronically Signed: Cruzito Plasencia MD at 20:33 EDT Reading Location ID and State: [facility] / [place] Tel , Service support , Chest X-Ray 05/08/23 20:16 IMPRESSION: Normal x-ray examination of the chest. Electronically Signed: Cruzito Plasencia MD at 21:16 EDT , Rhythm Strip Rhythm Strip: Sinus Tach Rate: 114 Ectopy: None EKG Initial EKG: Attestation: I personally reviewed and interpreted this EKG as follows: Interpretation: Sinus Tachycardia Comments: Sinus tachycardia rate of 114 bpm Slight left axis deviation Normal OR and QRS Nonspecific ST segment changes Prolonged QTc with QTc of 606 Compared to prior EKG patient does not have acute ST segment changes but does have more prolonged QTc Management Discussion w/another healthcare provider: Director Personal and Radiologist Critical Care Time Critical Care Time: Yes Critical care time (excluding procedures): 30-74 minutes (45), Discussing w/Patient &/or Family/[employer]er Brush Man, Discussing w/Consultants and Arranging Admission or Transfer Discharge Plan Triage Chief Complaint: Stroke Alert ED Provider: Patria Schultz Dx/Rx/DC Orders Clinical Impression: Acute stroke due to occlusion of left middle cerebral artery, Slurred speech, Leukocytosis, Prolonged Q-T interval on ECG, Acute right-sided muscle weakness, Alteration in vision Prescriptions: No Action aspirin 81 MG tablet 81 mg PO DAILY acetaminophen 500 MG tablet 1,000 mg PO BID PRN PRN (Reason: Pain) ascorbic acid (vitamin C) [Vitamin C] 500 MG tablet 1,000 mg PO DAILY quetiapine [Seroquel] 300 mg Tablet 300 mg PO QHS docusate sodium [Colace] 100 mg Capsule 100 mg PO DAILY buprenorphine HCl 8 mg Tablet, Sublingual 8 mg SUBLINGUAL TID duloxetine 60 mg Capsule,Delayed Release(Dr/Ec) 90 mg PO DAILY pregabalin [Lyrica] 150 mg Capsule 100 mg PO TID carvedilol 6.25 mg tablet 6.25 mg PO DAILY levetiracetam [Keppra] 750 mg Tablet 750 mg PO BID levofloxacin 750 mg tablet 750 mg PO DAILY Qty: 14 0RF cefadroxil 500 mg capsule 1,000 mg PO BID Qty: 56 0RF pregabalin [Lyrica] 100 mg capsule 100 mg PO TID Qty: 21 0RF buprenorphine HCl 8 mg tablet, sublingual 8 mg sublingual BID Qty: 14 0RF cephalexin 500 mg capsule 500 mg PO TID 3 Days Qty: 9 0RF Primary Care Provider: Harshad Karimi Referrals: Harshad Karimi MD [Primary Care Provider] - Disposition Disposition: Acute Care Hospital Discharge Location: [facility]
[2023-05-08 20:00] LABS: Absolute Neutrophil Count 7.9 X10^3/uL (2.0-7.7); Basophil# 0.11 X10^3/uL; Basophil% 0.8 % (0-1); Eosinophil# 0.22 X10^3/uL; Eosinophils% 1.6 % (0-5); Hematocrit 44.9 % (37-47); Hemoglobin 15.6 g/dL (12.0-15.0); Lymphocyte % 33.4 % (19-41); Mean Corp Hgb Conc 34.7 g/dL (32-36); Mean Corpuscular Hgb 31.3 pg (27.0-32.0); Mean Platelet Vol. 10.4 fl (6.2-12.0); Monocyte# 1.06 X10^3/uL; Monocyte% 7.5 % (0-10); NRBC Flagged by Analyzer 0 % (0-5); Neutrophil # 7.92 X10^3/uL (2.7-7.7); Neutrophil % 56.3 % (47-70); Platelet Count 301 K/mm3 (150-450); RBC Distribution Width SD 39.4 fl (35.1-43.9); Red Blood Count 4.99 M/mm3 (4.2-5.4); White Blood Count 14.1 K/mm3 (4.4-11.0)
[2023-05-08 20:16] LABS: Partial Thromboplast Time 27.9 Seconds (24.1-36.2); Prothrombin Time (Protime)PT. 12.9 SECONDS (11.7-14.9)
--- NOTE | 2023-05-08 20:16 | RAD_ITS ---
STUDY: X-RAY CHEST REASON FOR EXAM: Female, 58 years old. Neuro deficit, acute, stroke suspected TECHNIQUE: Single frontal view of the chest. COMPARISON: May 23, 2021 FINDINGS: The lungs are clear and expanded. There is no demonstrated pleural abnormality. Normal size heart. Normal mediastinum and ya. Normal visualized pulmonary arteries. Normal visualized aortic arch and descending thoracic aorta. Normal visualized thoracic spine. Normal visualized ribs, clavicles, and shoulders. There is no demonstrated abnormality of the visualized soft tissue structures of the upper abdomen. RAD/Chest 1 View IMPRESSION: Normal x-ray examination of the chest. Electronically Signed: Cruzito Plasencia MD at 21:16 EDT ,
[2023-05-08 20:18] LABS: Valproic Acid (Depakene) Level < 3 ug/mL (50-100)
[2023-05-08 20:19] LABS: Alcohol, Blood (Medical)-Serum < 3.0 mg/dL
[2023-05-08 20:20] LABS: Anion Gap 5 (5-15); BUN 11 mg/dL (7-18); BUN/Creat Ratio 13.1 RATIO (10-20); CPK Total, Creatine Kinase 88 U/L (26-192); Calcium,Total 9.4 mg/dL (8.5-10.1); Chloride 102 mmol/L (98-107); Creatinine, Serum 0.84 mg/dL (0.55-1.02); EST Glomerular Filtration Rate 74 mL/min (>60); Est Glom Filt Rate - Afr Amer 90 mL/min (>60); Estimated Creatinine Clearance 59.65 ml/min; Glucose 129 mg/dL (74-106); Potassium 3.1 mmol/L (3.5-5.1); Sodium Level 138 mmol/L (136-145); Troponin-I HS 6 pg/mL (3.0-54.0)
[2023-05-08 20:30] LABS: Ammonia < 10.0 umol/L (11-32)
--- NOTE | 2023-05-08 20:48 | ED.RN ---
dr. saldaña received phone call for possible occlusion. [facility] called and stroke team made aware. Neurologist paged will call back
--- NOTE | 2023-05-08 20:57 | ED.RN ---
[facility] called back requesting patient being transferred as LEVEL [address] Schultz made aware and [facility] called for transfer at this time
--- NOTE | 2023-05-08 21:08 | ED.RN ---
daughter called and updated on patient status. attempted to call son and update and left message at this time
== END 2023-05-08 21:50 | disposition short-term general hospital (02) ==
PROVIDERS: Emergency Provider Emergency Medicine; PCP Family Medicine; Visit Provider Emergency Medicine
DX: I63.512 Cerebral infarction due to unspecified occlusion or stenosis of left middle cerebral artery (principal); Z89.612 Acquired absence of left leg above knee; G40.909 Epilepsy, unspecified, not intractable, without status epilepticus; D72.829 Elevated white blood cell count, unspecified; R47.81 Slurred speech; H53.8 Other visual disturbances; Z79.899 Other long term (current) drug therapy; Z86.73 Personal history of transient ischemic attack (TIA), and cerebral infarction without residual deficits; R29.810 Facial weakness; E78.5 Hyperlipidemia, unspecified; R94.31 Abnormal electrocardiogram [ECG] [EKG]; M62.81 Muscle weakness (generalized); W19.XXXA Unspecified fall, initial encounter; R29.715 NIHSS score 15
CPT/HCPCS: 70450; 70496; 70498; 71045; 80048; 80164; 82077; 82140; 82550; 84484; 85025; 85610; 85730; 93005; 99285; J7030; Q9967; A4216

== ENCOUNTER → 2023-07-11 | Outpatient (CLI) | payer OTHER, SELFPAY ==
[2023-07-16 13:07] LABS: HPV APTIMA, High Risk Negative (Negative)
[2023-07-16 16:38] LABS: HPV Reflexed? NOT INDICATED
== END | disposition home or self-care (01) ==
PROVIDERS: PCP Family Medicine; Visit Provider Family Medicine
DX: Z12.4 Encounter for screening for malignant neoplasm of cervix (principal)
CPT/HCPCS: 88175; G0145

== ENCOUNTER 2023-11-30 15:43 | Emergency (ER) | payer OTHER, SELFPAY ==
[2023-11-30 15:45] VITALS: BP 120/79; PULSE 107; RESP 13; TEMP 36.1; O2SAT 91; BMI 30.4
[2023-11-30 15:50] VITALS: BP 120/79; PULSE 111; RESP 13; TEMP 36.1; O2SAT 94
--- NOTE | 2023-11-30 16:31 | CT_ITS ---
STUDY: CT BRAIN WITHOUT CONTRAST REASON FOR EXAM: Female, 58 years old. seizure RADIATION DOSAGE (If Supplied By Facility): CTDIvol = ( 44.99 ) mGy, DLP = ( 829.85 ) mGycm TECHNIQUE: Transaxial CT imaging of the brain was performed without administration of intravenous contrast material. Individualized dose optimization techniques were used for this CT. COMPARISON: No relevant priors. FINDINGS: Normal soft tissue structures. Normal calvarium. There is mild cerebral atrophy with widening of the extra-axial spaces and ventricular dilatation. There are areas of decreased attenuation within the white matter tracts of the supratentorial brain, consistent with microvascular disease changes. Chronic lacunar infarct of the head of the right caudate nucleus. Normal brainstem. Normal cerebellum. There is no intracranial hemorrhage. There are no findings of an acute ischemic infarction. Air-fluid level in the left sphenoid sinus consistent with acute sinusitis. CT/Brain/Head without Contrast IMPRESSION: Chronic involutional changes of the brain. Acute left sphenoid sinusitis. Electronically Signed: Ike Gaston MD at 17:45 EDT ,
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
[2023-11-30 16:39] LABS: Absolute Lymphocyte Count 2.59 X10^3/uL (0.83-4.51); Absolute Neutrophil Count 5.8 X10^3/uL (2.0-7.7); Basophil# 0.08 X10^3/uL; Basophil% 0.9 % (0-1); Eosinophils% 1.1 % (0-5); Hematocrit 40.6 % (37-47); Hemoglobin 13.6 g/dL (12.0-15.0); Lymphocyte # 2.59 X10^3/ul (0.83-4.51); Lymphocyte % 27.9 % (19-41); Mean Corp Hgb Conc 33.5 g/dL (32-36); Mean Corpuscular Hgb 30.8 pg (27.0-32.0); Mean Corpuscular Volume 91.9 fL (81-99); Mean Platelet Vol. 10.8 fl (6.2-12.0); Monocyte# 0.67 X10^3/uL; Monocyte% 7.2 % (0-10); NRBC Flagged by Analyzer 0 % (0-5); Neutrophil # 5.78 X10^3/uL (2.7-7.7); Neutrophil % 62.4 % (47-70); Platelet Count 231 K/mm3 (150-450); RBC Distribution Width SD 40.3 fl (35.1-43.9); Red Blood Count 4.42 M/mm3 (4.2-5.4); White Blood Count 9.3 K/mm3 (4.4-11.0)
[2023-11-30 16:44] VITALS: BP 149/104; PULSE 102; RESP 12; O2SAT 97
--- NOTE | 2023-11-30 16:47 | RAD_ITS ---
STUDY: X-RAY CHEST REASON FOR EXAM: Female, 58 years old. weakness TECHNIQUE: Single AP portable view of the chest. COMPARISON: None. FINDINGS: The lungs are clear and expanded. There is no demonstrated pleural abnormality. Normal size heart. Normal mediastinum and ya. Normal visualized pulmonary arteries. Normal visualized aortic arch and descending thoracic aorta. Normal visualized thoracic spine. Normal visualized ribs, clavicles, and shoulders. There is no demonstrated abnormality of the visualized soft tissue structures of the upper abdomen. RAD/Chest 1 View (Portable) IMPRESSION: Normal x-ray examination of the chest. Electronically Signed: Ike Gaston MD at 17:46 EDT ,
[2023-11-30 16:50] VITALS: BP 129/89; PULSE 79; RESP 19; TEMP 36.7; O2SAT 99
[2023-11-30 16:55] LABS: AST(SGOT) 34 U/L (15-37); Alanine Aminotransfer ALT/SGPT 21 U/L (13-56); Albumin, Serum 3.6 g/dL (3.2-5.0); Alkaline Phosphatase 63 U/L (45-117); Anion Gap 7 (5-15); BUN 20 mg/dL (7-18); BUN/Creat Ratio 25.6 RATIO (10-20); Calcium,Total 9.1 mg/dL (8.5-10.1); Chloride 105 mmol/L (98-107); Creatinine, Serum 0.78 mg/dL (0.55-1.02); EST Glomerular Filtration Rate 80 mL/min (>60); Est Glom Filt Rate - Afr Amer 97 mL/min (>60); Estimated Creatinine Clearance 76.79 ml/min; Globulin 3.7 g/dL (2.2-4.2); Glucose 161 mg/dL (74-106); Potassium 4.3 mmol/L (3.5-5.1); Protein, Total 7.3 g/dL (6.4-8.2); Sodium Level 139 mmol/L (136-145); Troponin-I HS 6 pg/mL (3.0-54.0)
[2023-11-30 16:59] LABS: Bacteria 0 SEEN /hpf (None Seen); Mucous, Urine 0 SEEN /hpf (<or=2+); Red Blood Cells-Urine 0 SEEN /hpf (0-5); Squamous Epithelial Cells - UA 0 SEEN /hpf (5-10); White Blood Cells 0 SEEN /hpf (0-5)
[2023-11-30] MEDS: Ondansetron 4 MG/2 ML Vial IV (17:00)
[2023-11-30 17:09] LABS: Color, Urine Yellow (Yellow); Glucose, Dipstick Normal (Normal); Ketone-Dipstick Negative (Negative); Leukocyte Esterase-Dipstick Negative /ul (Negative); Nitrite-Dipstick Negative (Negative); Occult Blood-Urine Negative /ul (Negative); Protein-Dipstick Negative (Negative); Urine Bilirubin Dipstick Negative (Negative); Urine Clarity Clear (Clear); Urine Urobilinogen Normal (Normal)
[2023-11-30 17:22] LABS: Amphetamine Urine VISTA NEGATIVE (<1000 ng/mL); Barbiturate Urine VISTA NEGATIVE (< 200 ng/mL); Benzodiazepine Urine VISTA POSITIVE (< 200 ng/mL); Cocaine Urine VISTA NEGATIVE (< 300 ng/mL); Ecstacy Urine VISTA NEGATIVE (< 500 ng/mL); Methadone Urine VISTA NEGATIVE (< 300 ng/mL); PCP Urine VISTA NEGATIVE (< 25 ng/mL); THC Urine VISTA NEGATIVE (< 50 ng/mL); Vista UDS pH Range 5
[2023-11-30 18:00] VITALS: BP 127/83; PULSE 81; RESP 13; TEMP 36.6; O2SAT 100
[2023-11-30 18:51] VITALS: BP 102/79; PULSE 78; RESP 16; TEMP 36.6; O2SAT 97
== END 2023-11-30 19:23 | disposition home or self-care (01) ==
PROVIDERS: Emergency Provider Student in an Organized Health Care Education/Training Program; PCP Family Medicine; Visit Provider Student in an Organized Health Care Education/Training Program
DX: G40.909 Epilepsy, unspecified, not intractable, without status epilepticus (principal); R51.9 Headache, unspecified; Z87.440 Personal history of urinary (tract) infections
CPT/HCPCS: 70450; 71045; 80053; 80307; 81001; 84484; 85025; 96374; 99283; A4216; J2405

== ENCOUNTER 2023-11-30 20:12 | Emergency (ER) | payer OTHER, SELFPAY ==
[2023-11-30 20:13] VITALS: BP 160/115; PULSE 131; RESP 20; TEMP 37.1; O2SAT 94; BMI 27.7
[2023-11-30 20:15] VITALS: BP 155/103; PULSE 110; RESP 20; TEMP 37.1; O2SAT 94
--- NOTE | 2023-11-30 20:41 | ED.RN ---
Pt upset with this RN during prior visit today when advised her buprenorphine rx would not be filled during her ED visit. Pt states she has her monthly appt tomorrow morning at [facility] to have the med refilled but would rather have it filled here in case I don't make that appointment. Pt educated on importance of keeping appointment and need to have buprenorphine filled with the same provider.
--- NOTE | 2023-11-30 21:08 | ED.RN ---
Pt blinking eyes rapidly, brandon reports she is acting like she is having a seizure. MD to bedside, states seizures are not real.
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
[2023-11-30 21:25] LABS: Alcohol, Blood (Medical)-Serum < 3.0 mg/dL
[2023-11-30] MEDS: LORazepam 2 MG/ML Syringe 1 MG IV (21:26)
[2023-12-01 00:57] VITALS: BP 152/105; PULSE 95; RESP 16; O2SAT 98
[2023-12-01] MEDS: buprenorphine HCL 8 MG TAB.SUBL SL ×2 (01:34→08:48)
[2023-12-01] MEDS: Divalproex Sodium 250 MG Tablet 500 MG PO ×2 (01:34→08:10)
[2023-12-01 02:16] VITALS: BP 110/67; PULSE 83; RESP 20; O2SAT 94
--- NOTE | 2023-12-01 03:44 | ED.RN ---
Report called to Candi RAMOS, questions concerns/answered
[2023-12-01 09:20] VITALS: BP 110/67; PULSE 83; RESP 18; TEMP 36.4; O2SAT 98
== END 2023-12-01 09:22 ==
PROVIDERS: Emergency Provider Student in an Organized Health Care Education/Training Program; PCP Family Medicine; Visit Provider Student in an Organized Health Care Education/Training Program
DX: T14.91XA Suicide attempt, initial encounter (principal); G40.109 Localization-related (focal) (partial) symptomatic epilepsy and epileptic syndromes with simple partial seizures, not intractable, without status epilepticus; F32.A Depression, unspecified; Z63.8 Other specified problems related to primary support group; E78.5 Hyperlipidemia, unspecified; Z79.899 Other long term (current) drug therapy; X58.XXXA Exposure to other specified factors, initial encounter
CPT/HCPCS: 80320; 96374; 99285; G0480

== ENCOUNTER → 2023-12-18 | Outpatient (CLI) | payer OTHER, SELFPAY | END | disposition home or self-care (01) | PROVIDERS: PCP Family Medicine; Referring Provider Family Medicine; Visit Provider Family Medicine | DX: N39.0 Urinary tract infection, site not specified (principal) | CPT/HCPCS: 87086; 87088 ==

== ENCOUNTER 2023-12-25 23:15 | Emergency (ER) | payer OTHER, SELFPAY ==
[2023-12-25 23:16] VITALS: BP 162/66; PULSE 122; RESP 18; TEMP 35.9; O2SAT 96; BMI 28.7
[2023-12-25 23:44] LABS: Absolute Lymphocyte Count 5.09 X10^3/uL (0.83-4.51); Absolute Neutrophil Count 6.1 X10^3/uL (2.0-7.7); Basophil# 0.11 X10^3/uL; Basophil% 0.9 % (0-1); Eosinophil# 0.45 X10^3/uL; Eosinophils% 3.5 % (0-5); Hematocrit 39.5 % (37-47); Hemoglobin 13.3 g/dL (12.0-15.0); Lymphocyte # 5.09 X10^3/ul (0.83-4.51); Lymphocyte % 40.1 % (19-41); Mean Corp Hgb Conc 33.7 g/dL (32-36); Mean Corpuscular Hgb 30.5 pg (27.0-32.0); Mean Corpuscular Volume 90.6 fL (81-99); Mean Platelet Vol. 10.4 fl (6.2-12.0); Monocyte# 0.96 X10^3/uL; Monocyte% 7.6 % (0-10); NRBC Flagged by Analyzer 0 % (0-5); Neutrophil # 6.06 X10^3/uL (2.7-7.7); Neutrophil % 47.7 % (47-70); POSITIVE DIFFERENTIAL YES; Platelet Count 211 K/mm3 (150-450); RBC Distribution Width CV 12.9 % (11.6-14.6); RBC Distribution Width SD 42.4 fl (35.1-43.9); Red Blood Count 4.36 M/mm3 (4.2-5.4); White Blood Count 12.7 K/mm3 (4.4-11.0)
[2023-12-25 23:50] LABS: Differential Indicated SCAN CRITERIA MET
--- NOTE | 2023-12-25 23:54 | ED.RN ---
No sitter per Dr. Sidhu.
[2023-12-25 23:56] LABS: Amphetamine Urine VISTA NEGATIVE (<1000 ng/mL); Barbiturate Urine VISTA NEGATIVE (< 200 ng/mL); Benzodiazepine Urine VISTA NEGATIVE (< 200 ng/mL); Cocaine Urine VISTA NEGATIVE (< 300 ng/mL); Ecstacy Urine VISTA NEGATIVE (< 500 ng/mL); Methadone Urine VISTA NEGATIVE (< 300 ng/mL); PCP Urine VISTA NEGATIVE (< 25 ng/mL); THC Urine VISTA NEGATIVE (< 50 ng/mL); Vista UDS pH Range 7
[2023-12-25 23:57] LABS: Anion Gap 5 (5-15); BUN 10 mg/dL (7-18); BUN/Creat Ratio 18.1 RATIO (10-20); Calcium,Total 9.1 mg/dL (8.5-10.1); Chloride 106 mmol/L (98-107); Creatinine, Serum 0.55 mg/dL (0.55-1.02); EST Glomerular Filtration Rate 119 mL/min (>60); Est Glom Filt Rate - Afr Amer 144 mL/min (>60); Estimated Creatinine Clearance 105.77 ml/min; Glucose 116 mg/dL (74-106); Potassium 3.4 mmol/L (3.5-5.1); Sodium Level 139 mmol/L (136-145)
[2023-12-26 00:15] LABS: Differential Comment SCANNED
--- NOTE | 2023-12-26 02:37 | NURSING ---
CALLED CRISIS AND FAXED CHART AT [phone]
--- NOTE | 2023-12-26 05:29 | EX.ED.DYSGE1 ---
HPI History of Present Illness Chief Complaint: Suicidal Informant: patient Narrative Narrative: Patient is a 58-year-old female with past medical history of seizure disorder as well as previous stroke and history of depression. Reported this evening she was driving through town running errands and talking to her son on the phone. She states that they got into an argument and that she hung up on him. However police report that they received a phone call from the patient's son stating the patient reported she felt that with everything going on her life that she should harm herself. Secondary to this they were able to find her driving by triangulating her cell phone signal and pulled her over and brought her into the hospital for evaluation. Upon arrival to the ER the patient states that she never said those things and that she has no homicidal or suicidal ideation. [facility] Medical History Seizures Substance abuse Depression Failure of outpatient treatment Opioid use disorder Generalized anxiety disorder Major depressive disorder, recurrent severe without psychotic features History of drug overdose Drug abuse Unilateral above knee amputation Hyperlipemia Seizures Hyperlipidemia Home Medications ?Medication ?Instructions ?Recorded ?Last Taken ?Type acetaminophen 500 mg tablet 1,000 mg PO BID PRN PRN Pain 05/20/18 06/23/19 History ascorbic acid (vitamin C) 500 mg 1,000 mg PO DAILY supplement 05/20/18 08/26/22 History tablet (Vitamin C) aspirin 81 mg tablet,delayed 81 mg PO DAILY heart health 05/20/18 08/26/22 History release divalproex 500 mg tablet,delayed 500 mg PO BID 11/30/23 Unknown History release atorvastatin 40 mg tablet 40 mg PO DAILY 12/26/23 Unknown History buprenorphine 8 mg-naloxone 2 mg 2 tab sublingual DAILY 12/26/23 Unknown History sublingual tablet Allergy/AdvReac Type Severity Reaction Status Date / Time metoclopramide HCl (From Allergy shaking Verified 12/25/23 23:15 Reglan) prochlorperazine (From Allergy Hives Verified 12/25/23 23:15 Compazine) promethazine (From Phenergan) Allergy Hives Verified 12/25/23 23:15 Surgical History H/O wrist surgery Social History household members: none Smoking Status: Never smoker alcohol intake: never substance use type: does not use ROS ROS ED Constitutional Constitutional ED: Denies chills or fever(s) ENT ENT ED: Denies sore throat Cardiovascular Cardiovascular: Denies chest pain Respiratory/Chest Respiratory/Chest: Denies cough or dyspnea Gastrointestinal Gastrointestinal: Denies abdominal pain, diarrhea, nausea or vomiting Genitourinary Genitourinary ED: Denies dysuria Musculoskeletal Musculoskeletal: Denies myalgias Integumentary Denies rash Neurologic Neurologic: Denies headache(s) Psychiatric Psychiatric: Denies suicidal ideation or suicidal thoughts Hematologic/Lymphatic Hematologic/Lymphatic: Denies easy bleeding or easy bruising EXAM Physical Exam Const Vital Signs: 12/25/23 23:16 12/26/23 05:58 Temperature 96.7 F L 97.2 F L Temperature Source Temporal Pulse Rate 122 H 101 H Respiratory Rate 18 17 Blood Pressure 162/66 H 134/107 H Blood Pressure Mean 98 116 Pulse Ox 96 95 Positive well nourished, well developed and obese General Appearance ED: well developed; Negative for pallor Nutritional Appearance: obese HEENT HEENT Narrative: Normocephalic atraumatic Eyes PERRL and EOMs intact bilaterally General Eye ED: Negative for scleral icterus Neck supple Resp normal respiratory effort and clear to auscultation bilaterally Cardio regular rhythm Rate: tachycardic GI normal to inspection, nondistended, normoactive bowel sounds, non-tender, non-distended and no masses Auscultation: normoactive bowel sounds Palpation: soft Extremity Extremity Narrative: Chronic findings of leg amputation otherwise normal Neuro oriented x3, CN's II-XII intact bilaterally and no sensory deficits noted Sensorium / Orientation: alert Motor Exam: strength 5/5 throughout Psych mental status grossly normal Psych Narrative: Patient denies any homicidal or suicidal ideation Skin no rashes or lesions noted General Skin Exam: Negative for jaundice or pallor MDM MDM MDM Narrative Medical decision making narrative: Patient arrived to the ER hypertensive but overall had no complaints. She states that she was on the phone with her son this evening while she was running errands but that they got into an argument and she hung up on him and she denies ever saying she wanted to harm herself. She states that she has no thoughts of homicide or suicide at this time. However she does have remote history of psychiatric placement and reported suicide attempt and therefore I felt it necessary to undergo a psychiatric evaluation by crisis center. Patient blood work was obtained and revealed acute alcohol intoxication with a value of 150 but otherwise no clinically significant finding. Once the patient's alcohol level was below 100 and she is clinically and medically sober crisis center was contacted. They evaluated the patient and patient maintains that she never said those things and has no thoughts of harming herself or others. Therefore at this time as the patient has maintained no thoughts of homicidal or suicidal ideation crisis center does not feel there is need for emergent placement especially as patient has future thinking and plans. Therefore she will be discharged and can follow-up on an outpatient basis History & Record Review Discussion w/independent historian: Patient Lab Data Attestation: I reviewed the patient's lab results. Labs: Laboratory Results - last 24 hr 12/25/23 12/26/23 23:39 02:07 WBC 12.7 H RBC 4.36 Hgb 13.3 Hct 39.5 MCV 90.6 MCH 30.5 MCHC 33.7 RDW Std Deviation 42.4 RDW Coeff of Adilia 12.9 Plt Count 211 MPV 10.4 Immature Gran % (Auto) 0.200 Neut % (Auto) 47.7 Lymph % (Auto) 40.1 [place] % (Auto) 7.6 Eos % (Auto) 3.5 Baso % (Auto) 0.9 Absolute Neuts (auto) 6.1 Absolute Lymphs (auto) 5.09 H Nucleated RBC % 0 Differential Comment SCANNED Sodium 139 Potassium 3.4 L Chloride 106 Carbon Dioxide 28.0 Anion Gap 5 BUN 10 Creatinine 0.55 Estim Creat Clear Calc 105.77 Est GFR (MDRD) Af Amer 144 Est GFR (MDRD) Non-Af 119 BUN/Creatinine Ratio 18.1 Glucose 116 H Calcium 9.1 Urine Opiates Screen NEGATIVE Urine Methadone Screen NEGATIVE Ur Barbiturates Screen NEGATIVE Ur Phencyclidine Scrn NEGATIVE Ur Amphetamines Screen NEGATIVE MDMA (Ecstasy) Screen NEGATIVE U Benzodiazepines Scrn NEGATIVE Urine Cocaine Screen NEGATIVE U Cannabinoids Screen NEGATIVE Ur Drug Screen Comment Ethyl Alcohol 151.0 98.0 Discharge Plan Triage Chief Complaint: Suicidal ED Provider: Antonio Sidhu Dx/Rx/DC Orders Clinical Impression: Depression, Alcohol intoxication, Seizure disorder Instructions: Depression: Tips to Help Yourself, ED Alcohol Intoxication Prescriptions: No Action aspirin 81 MG tablet 81 mg PO DAILY acetaminophen 500 MG tablet 1,000 mg PO BID PRN PRN (Reason: Pain) ascorbic acid (vitamin C) [Vitamin C] 500 MG tablet 1,000 mg PO DAILY atorvastatin 40 mg tablet 40 mg PO DAILY buprenorphine-naloxone 8-2 mg tablet, sublingual 2 tab sublingual DAILY divalproex 500 mg tablet,delayed release (DR/EC) 500 mg PO BID Primary Care Provider: Issac Karimi Referrals: Issac Karimi MD [Primary Care Provider] - Activity Restrictions/Additional Instructions: Please follow-up with counseling/psychiatry as directed and return to the ER should you have any further concerns Print Language: Greek Disposition Disposition: Home, Self Care Discharge Date/Time: 12/26/23 05:59
[2023-12-26 05:58] VITALS: BP 134/107; PULSE 101; RESP 17; TEMP 36.2; O2SAT 95
== END 2023-12-26 05:59 | disposition home or self-care (01) ==
PROVIDERS: Emergency Provider Emergency Medicine; PCP Family Medicine; Visit Provider Emergency Medicine
DX: F32.A Depression, unspecified (principal); G40.909 Epilepsy, unspecified, not intractable, without status epilepticus; F10.129 Alcohol abuse with intoxication, unspecified; Z86.73 Personal history of transient ischemic attack (TIA), and cerebral infarction without residual deficits; E78.5 Hyperlipidemia, unspecified; Z79.899 Other long term (current) drug therapy; E66.9 Obesity, unspecified
CPT/HCPCS: 36415; 80048; 80307; 80320; 85025; 99284; G0480

== ENCOUNTER 2024-03-29 22:07 | Emergency (ER) | payer OTHER, SELFPAY ==
[2024-03-29 22:09] VITALS: BP 141/114; PULSE 149; RESP 24; TEMP 36.3; O2SAT 95; BMI 30.9
[2024-03-29] MEDS: 0.9% Normal Saline (1000mL) 1,000 ML 999 ML IV (22:55)
[2024-03-29] MEDS: Famotidine 200 MG/20 ML MDV 20 MG in 0.9% Normal Saline (Pres. free 8 ML 300 MG IV (22:56)
[2024-03-29 23:08] VITALS: BP 142/93; PULSE 101; RESP 18; O2SAT 98
[2024-03-29 23:12] LABS: Absolute Lymphocyte Count 6.12 X10^3/uL (0.83-4.51); Absolute Neutrophil Count 6.1 X10^3/uL (2.0-7.7); Basophil# 0.19 X10^3/uL; Basophil% 1.4 % (0-1); Eosinophil# 0.33 X10^3/uL; Eosinophils% 2.4 % (0-5); Hematocrit 43.7 % (37-47); Hemoglobin 14.5 g/dL (12.0-15.0); Lymphocyte # 6.12 X10^3/ul (0.83-4.51); Lymphocyte % 43.6 % (19-41); Mean Corp Hgb Conc 33.2 g/dL (32-36); Mean Corpuscular Hgb 31.1 pg (27.0-32.0); Mean Corpuscular Volume 93.8 fL (81-99); Mean Platelet Vol. 10.9 fl (6.2-12.0); Monocyte# 1.18 X10^3/uL; Monocyte% 8.4 % (0-10); NRBC Flagged by Analyzer 0 % (0-5); Neutrophil # 6.08 X10^3/uL (2.7-7.7); Neutrophil % 43.3 % (47-70); POSITIVE DIFFERENTIAL YES; POSITIVE MORPHOLOGY YES; Platelet Count 228 K/mm3 (150-450); RBC Distribution Width SD 44.5 fl (35.1-43.9); Red Blood Count 4.66 M/mm3 (4.2-5.4)
[2024-03-29 23:29] LABS: AST(SGOT) 56 U/L (15-37); Alanine Aminotransfer ALT/SGPT 34 U/L (13-56); Albumin, Serum 3.6 g/dL (3.2-5.0); Alkaline Phosphatase 108 U/L (45-117); Anion Gap 11 (5-15); BUN 12 mg/dL (7-18); BUN/Creat Ratio 16.8 RATIO (10-20); Calcium,Total 8.6 mg/dL (8.5-10.1); Chloride 104 mmol/L (98-107); Creatinine, Serum 0.71 mg/dL (0.55-1.02); EST Glomerular Filtration Rate 89 mL/min (>60); Est Glom Filt Rate - Afr Amer 108 mL/min (>60); Estimated Creatinine Clearance 84.96 ml/min; Globulin 3.7 g/dL (2.2-4.2); Glucose 193 mg/dL (74-106); Potassium 3.2 mmol/L (3.5-5.1); Protein, Total 7.3 g/dL (6.4-8.2); Sodium Level 140 mmol/L (136-145)
[2024-03-29 23:51] LABS: Acetaminophen (Tylenol) Level < 2.0 ug/mL (10.0-30.0); Salicylate < 1.7 mg/dL (2.8-20.0)
[2024-03-30] VITALS (9 sets, daily range): BP systolic 113–165; BP diastolic 76–112; PULSE 74–108; RESP 16–20; O2SAT 88–99
[2024-03-30 00:02] LABS: Differential Indicated SCAN CRITERIA MET
[2024-03-30 00:59] LABS: Amphetamine Urine VISTA NEGATIVE (<1000 ng/mL); Barbiturate Urine VISTA NEGATIVE (< 200 ng/mL); Benzodiazepine Urine VISTA NEGATIVE (< 200 ng/mL); Cocaine Urine VISTA NEGATIVE (< 300 ng/mL); Ecstacy Urine VISTA NEGATIVE (< 500 ng/mL); Methadone Urine VISTA NEGATIVE (< 300 ng/mL); PCP Urine VISTA NEGATIVE (< 25 ng/mL); THC Urine VISTA NEGATIVE (< 50 ng/mL); Vista UDS pH Range 6
[2024-03-30 01:07] LABS: Differential Comment SCANNED
--- NOTE | 2024-03-30 03:47 | EDS_ITS ---
HPI History of Present Illness Chief Complaint: Overdose Informant: patient, EMS and police/field contact technician Narrative Narrative: Patient is a 58-year-old female with past medical history of anxiety depression hyperlipidemia and seizure disorder. She was brought in by EMS after police were called to do a well check. Please report that they were called by the patient's children to do a well check and when they arrived they knocked but there was no answer. They then entered the home and found the patient in the bathroom in her wheelchair slumped over unresponsive but breathing. They report there was an empty bottle of rum present and they found to pill bottles which were Suboxone. Please also report that there was a pair of bloody scissors and patient does have superficial abrasions to her right wrist. With the patient appearing as a potential overdose and suicidal attempt she was given Narcan by EMS prior to arrival. Upon arrival to the ER the patient is slurring her speech and is uncooperative and will not give a history or review of systems [facility] Medical History Seizures Substance abuse Depression Failure of outpatient treatment Opioid use disorder Generalized anxiety disorder Major depressive disorder, recurrent severe without psychotic features History of drug overdose Drug abuse Unilateral above knee amputation Hyperlipemia Seizures Hyperlipidemia Home Medications ?Medication ?Instructions ?Recorded ?Last Taken ?Type acetaminophen 500 mg tablet 1,000 mg PO BID PRN PRN Pain 05/20/18 06/23/19 History ascorbic acid (vitamin C) 500 mg 1,000 mg PO DAILY supplement 05/20/18 08/26/22 History tablet (Vitamin C) aspirin 81 mg tablet,delayed 81 mg PO DAILY heart health 05/20/18 08/26/22 History release divalproex 500 mg tablet,delayed 500 mg PO BID 11/30/23 Unknown History release atorvastatin 40 mg tablet 40 mg PO DAILY 12/26/23 Unknown History buprenorphine 8 mg-naloxone 2 mg 2 tab sublingual DAILY 12/26/23 Unknown History sublingual tablet Allergy/AdvReac Type Severity Reaction Status Date / Time metoclopramide HCl (From Allergy shaking Verified 03/29/24 22:09 Reglan) prochlorperazine (From Allergy Hives Verified 03/29/24 22:09 Compazine) promethazine (From Phenergan) Allergy Hives Verified 03/29/24 22:09 Surgical History H/O wrist surgery Social History household members: none Smoking Status: Never smoker alcohol intake: never substance use type: does not use ROS ROS ED ROS Narrative Review of systems is unable to be obtained as patient is uncooperative EXAM Physical Exam Const Vital Signs: 03/29/24 22:09 03/29/24 23:08 03/30/24 00:00 Temperature 97.3 F L Temperature Source Temporal Pulse Rate 149 H 101 H 108 H Respiratory Rate 24 H 18 Blood Pressure 141/114 H 142/93 H 148/112 H Blood Pressure Mean 123 109 124 Pulse Ox 95 98 99 Oxygen Delivery Method Room Air Room Air 03/30/24 01:00 03/30/24 02:00 03/30/24 03:00 Temperature Temperature Source Pulse Rate 93 91 Respiratory Rate 16 18 Blood Pressure 113/84 H 124/79 H 116/82 H Blood Pressure Mean 93 94 93 Pulse Ox 92 88 Oxygen Delivery Method Room Air Room Air 03/30/24 06:00 Temperature Temperature Source Pulse Rate 90 Respiratory Rate 16 Blood Pressure 121/79 H Blood Pressure Mean 93 Pulse Ox 93 Oxygen Delivery Method Room Air Positive well nourished, well developed and obese General Appearance ED: well developed; Negative for pallor Nutritional Appearance: obese HEENT HEENT Narrative: Mucous membranes are dry and tacky No tongue or lip biting noted No secondary findings to suggest infection Eyes EOMs intact bilaterally Eyes Narrative: Pupils are pinpoint and sluggish to respond to light concerning for opioid/Suboxone use or overdose There is scleral injection bilaterally as well Neck supple and no JVD Neck Narrative: No nuchal rigidity or meningeal signs Chest Wall palpation of chest normal Chest Narrative: No bony deformity or crepitance noted Resp normal respiratory effort and clear to auscultation bilaterally Cardio regular rhythm Rate: tachycardic and other Other Details: Tachycardic rate with regular rhythm No murmurs rubs or gallops Radial and carotid pulses are equal and symmetric GI non-tender, non-distended and no masses GI Narrative: Soft nontender nondistended with hypoactive bowel sounds no voluntary guarding or rigidity or pulsatile mass Auscultation: hypoactive bowel sounds Palpation: soft Extremity Extremity Narrative: Left [id number] amputation There are superficial linear abrasions/lacerations to the volar aspect of the right wrist consistent with self-inflicted injury however the the wounds are superficial and do not need closed and there are no findings of retained foreign body or secondary infection Neuro CN's II-XII intact bilaterally Sensorium / Orientation: alert Psych Psych Narrative: Patient is obtunded consistent with alcohol use and has depression with suicidal ideation Skin Skin Narrative: Superficial abrasions to the right forearm/wrist as documented above General Skin Exam: Negative for jaundice or pallor MDM MDM MDM Narrative Medical decision making narrative: Patient arrived to the ER with depressed mental status consistent with potential alcohol and/or opioid use. Please had a reported finding a empty bottle of rum with the patient and she does have a history of chronic pain and opioid use and therefore there is also concern for potential narcotic overdose. At this time the patient is slightly obtunded with GCS of 13 but she is still awake and protecting her airway and there is no need for intubation or airway stabilization. As police also found a pair of bloody scissors and she has abrasions to her wrist there is concern that she attempted to harm herself with direct trauma and/or overdose. Therefore a medical screening exam was performed to ensure that the patient will not decompensate. The patient's alcohol value is elevated at approximately 375 which correlates with her drinking the bottle from that was found at the scene. Otherwise there are no clinically significant laboratory findings. At this time the patient is not suitable for evaluation by crisis center based on her high alcohol value. Therefore she will be monitored until her value drops below 100 at which time she will be medically sober and can be evaluated by social work/psychiatry to decide on need for potential placement The patient's repeat alcohol value is still pending at this time and therefore she will be signed out to the day physician Dr. Mathias for continued care Lab Data Attestation: I reviewed the patient's lab results. Labs: Laboratory Results - last 24 hr 03/29/24 03/30/24 22:21 00:30 WBC 14.0 H RBC 4.66 Hgb 14.5 Hct 43.7 MCV 93.8 MCH 31.1 MCHC 33.2 RDW Std Deviation 44.5 H RDW Coeff of Adilia 13.0 Plt Count 228 MPV 10.9 Immature Gran % (Auto) 0.900 Neut % (Auto) 43.3 L Lymph % (Auto) 43.6 H [place] % (Auto) 8.4 Eos % (Auto) 2.4 Baso % (Auto) 1.4 H Absolute Neuts (auto) 6.1 Absolute Lymphs (auto) 6.12 H Nucleated RBC % 0 Differential Comment SCANNED Diff Path Review May foll Sodium 140 Potassium 3.2 L Chloride 104 Carbon Dioxide 25.0 Anion Gap 11 BUN 12 Creatinine 0.71 Estim Creat Clear Calc 84.96 Est GFR (MDRD) Af Amer 108 Est GFR (MDRD) Non-Af 89 BUN/Creatinine Ratio 16.8 Glucose 193 H Calcium 8.6 Total Bilirubin 0.20 Direct Bilirubin 0.10 AST 56 H ALT 34 Alkaline Phosphatase 108 Total Protein 7.3 Albumin 3.6 Globulin 3.7 Salicylates < 1.7 L Urine Opiates Screen NEGATIVE Urine Methadone Screen NEGATIVE Acetaminophen < 2.0 L Ur Barbiturates Screen NEGATIVE Ur Phencyclidine Scrn NEGATIVE Ur Amphetamines Screen NEGATIVE MDMA (Ecstasy) Screen NEGATIVE U Benzodiazepines Scrn NEGATIVE Urine Cocaine Screen NEGATIVE U Cannabinoids Screen NEGATIVE Ur Drug Screen Comment Ethyl Alcohol 373.0 H* Management Discussion w/another healthcare provider: food and drink factory workers/Case management and Behavioral health Discharge Plan Triage Chief Complaint: Overdose ED Provider: Antonio Sidhu Dx/Rx/DC Orders Clinical Impression: Alcohol intoxication, Chronic pain syndrome, Depression with suicidal ideation, Deliberate self-cutting Prescriptions: No Action aspirin 81 MG tablet 81 mg PO DAILY acetaminophen 500 MG tablet 1,000 mg PO BID PRN PRN (Reason: Pain) ascorbic acid (vitamin C) [Vitamin C] 500 MG tablet 1,000 mg PO DAILY atorvastatin 40 mg tablet 40 mg PO DAILY buprenorphine-naloxone 8-2 mg tablet, sublingual 2 tab sublingual DAILY divalproex 500 mg tablet,delayed release (DR/EC) 500 mg PO BID Primary Care Provider: Issac Karimi Referrals: Issac Karimi MD [Primary Care Provider] - Print Language: Chinese
--- NOTE | 2024-03-30 09:47 | ED.RN ---
Dr. Mathias wants patient to not have her suboxone dosage today.
[2024-03-30] MEDS: Ascorbic Acid 500 MG Tablet 1000 MG PO (11:04)
[2024-03-30] MEDS: Divalproex (ER) 500 MG Tablet PO (11:05)
[2024-03-30] MEDS: Aspirin E.C. 81 MG Tablet PO (11:05)
[2024-03-30 13:48] LABS: Alcohol, Blood (Medical)-Serum < 3.0 mg/dL
[2024-03-30] MEDS: hydrOXYzine PAM 25 MG Capsule 50 MG PO ×2 (14:21→21:48)
--- NOTE | 2024-03-30 16:18 | ED.RN ---
DR. LILLY GAVE VERBAL ORDER THAT PT COULD HAVE HER BUPRENORPHINE THAT WAS KEPT WITH HER BELONGINGS. I GAVE PT ONE SUBLINGUAL TAB [id number].
[2024-03-30] MEDS: Atorvastatin Calcium 40 MG Tablet PO (21:30)
[2024-03-30] MEDS: Divalproex Sodium 250 MG Tablet 500 MG PO (21:31)
--- NOTE | 2024-03-30 22:35 | ED.RN ---
[facility] CALLED STATING THEY ARE CALLING AROUND CHECKING ON HOSPITAL REFERRALS FOR THIS PT
[2024-03-31 02:00] VITALS: BP 107/47; PULSE 81; RESP 18; O2SAT 97
[2024-03-31 06:00] VITALS: BP 105/61; PULSE 69; RESP 18; TEMP 37.1; O2SAT 93
[2024-03-31] MEDS: LORazepam 2 MG/ML Syringe 0.5 MG IV (07:42)
--- NOTE | 2024-03-31 07:50 | ED.RN ---
Call from counseling center. Patient has been referred to Antonio Murphy, Óscar, and Julieta.
--- NOTE | 2024-03-31 08:04 | NURSING ---
THERESA TIJERINA NURSE TO NURSE [phone]
--- NOTE | 2024-03-31 08:11 | ED.RN ---
Attempted to call report to [facility]. Patient answered the phone and stated that the nurses weren't down there and to callback.
--- NOTE | 2024-03-31 08:20 | NURSING ---
CALLED [facility], ETA IS 2 HRS
[2024-03-31 08:23] LABS: Pathologist Review Reviewed
[2024-03-31 08:52] VITALS: BP 125/75; PULSE 96; RESP 16; TEMP 37.1; O2SAT 96
--- NOTE | 2024-03-31 08:52 | ED.RN ---
Attempted to call report to [facility] again, no answer.
== END 2024-03-31 09:00 ==
PROVIDERS: Emergency Provider Emergency Medicine; PCP Family Medicine; Visit Provider Emergency Medicine
DX: T40.492A Poisoning by other synthetic narcotics, intentional self-harm, initial encounter (principal); X78.8XXA Intentional self-harm by other sharp object, initial encounter; F10.129 Alcohol abuse with intoxication, unspecified; R47.81 Slurred speech; F32.A Depression, unspecified; G89.4 Chronic pain syndrome; R45.851 Suicidal ideations; R45.1 Restlessness and agitation; F41.9 Anxiety disorder, unspecified; E78.5 Hyperlipidemia, unspecified; S61.511A Laceration without foreign body of right wrist, initial encounter; Z79.899 Other long term (current) drug therapy; E66.9 Obesity, unspecified
CPT/HCPCS: 80048; 80076; 80307; 80329; 82077; 85025; 93005; 96365; 96375; 99285; J7030; J7050; A4216; G0480; J3490

== ENCOUNTER 2024-07-17 10:59 | Inpatient (IN) | payer OTHER, SELFPAY ==
[2024-07-17 11:01] VITALS: BP 152/108; PULSE 116; RESP 17; TEMP 36.9; O2SAT 96; BMI 29.7
--- NOTE | 2024-07-17 11:56 | EX.ED.SAOD ---
HPI <LINDA Hills - Last Filed: 07/17/24 12:55> History of Present Illness Chief Complaint: Substance Abuse Narrative Narrative: Patient presenting today requesting to detox from alcohol. She reports that she drinks a bottle of rum daily and has been drinking like this since November 2023. She has never detoxed in the past. She did try to detox on her own today but became too shaky and had to start drinking again. She reports that she did drink about a quarter of a bottle of rum today. She denies any other substance use. 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 PFS <LINDA Hills - Last Filed: 07/17/24 12:55> [facility] Medical History Amputation of leg Seizures Substance abuse Depression Failure of outpatient treatment Opioid use disorder Generalized anxiety disorder Major depressive disorder, recurrent severe without psychotic features History of drug overdose Drug abuse Unilateral above knee amputation Hyperlipemia Seizures Hyperlipidemia Home Medications ?Medication ?Instructions ?Recorded ?Last Taken ?Type acetaminophen 500 mg tablet 1,000 mg PO BID PRN PRN Pain 05/20/18 06/23/19 History ascorbic acid (vitamin C) 500 mg 1,000 mg PO DAILY supplement 05/20/18 07/17/24 History tablet (Vitamin C) aspirin 81 mg tablet,delayed 81 mg PO DAILY heart health 05/20/18 07/17/24 History release atorvastatin 40 mg tablet 40 mg PO DAILY 12/26/23 07/17/24 History buprenorphine 8 mg-naloxone 2 mg 2 tab sublingual DAILY 12/26/23 07/17/24 History sublingual tablet divalproex 500 mg tablet,delayed 500 mg PO BID Seizure disorder 07/01/24 07/17/24 Rx release #180 tabs escitalopram oxalate 10 mg tablet 10 mg PO DAILY 07/17/24 07/17/24 History Allergy/AdvReac Type Severity Reaction Status Date / Time metoclopramide HCl (From Allergy shaking Verified 07/17/24 11:03 Reglan) prochlorperazine (From Allergy Hives Verified 07/17/24 11:03 Compazine) promethazine (From Phenergan) Allergy Hives Verified 07/17/24 11:03 Family History Mother Dementia CVA (cerebral vascular accident) Myocardial infarction Father Heart disease Hypercholesteremia Surgical History H/O wrist surgery Social History household members: none Smoking Status: Never smoker alcohol intake: current details: occasional glass of wine substance use type: does not use caffeine: No do you feel safe at home: Yes ROS <LINDA Hills - Last Filed: 07/17/24 12:55> ROS ED Constitutional Constitutional ED: Denies chills or fever(s) Cardiovascular Cardiovascular: Denies chest pain Respiratory/Chest Respiratory/Chest: Denies dyspnea Gastrointestinal Gastrointestinal: Denies abdominal pain, nausea or vomiting Musculoskeletal Musculoskeletal: Denies arthralgias or myalgias Integumentary Denies rash Neurologic Neurologic: Denies weakness Psychiatric Psychiatric: Denies suicidal ideation EXAM <LINDA Hills - Last Filed: 07/17/24 12:55> Physical Exam Const Vital Signs: 07/17/24 11:01 Temperature 98.4 F Temperature Source Temporal Pulse Rate 116 H Respiratory Rate 17 Blood Pressure 152/108 H Blood Pressure Mean 122 Pulse Ox 96 Oxygen Delivery Method Room Air Positive well nourished, well developed and no apparent distress General Appearance ED: well developed HEENT Reports normocephalic and head/scalp atraumatic Mouth ED: Yes moist mucous membranes normal Eyes PERRL and EOMs intact bilaterally Neck full ROM and supple Chest Wall inspection of chest normal Resp normal respiratory effort and clear to auscultation bilaterally Cardio regular rate and regular rhythm GI soft to palpation, non-tender, non-distended and no masses Back/Spine normal ROM and normal to inspection Extremity normal to inspection and full ROM Neuro oriented x3, CN's II-XII intact bilaterally, moves all extremities, no focal motor deficits and no sensory deficits noted Sensorium / Orientation: awake and alert Psych mental status grossly normal and thought process normal Skin no rashes or lesions noted and no wounds <Dr. Sukhjinder Palencia MD - Last Filed: 07/17/24 12:38> Physical Exam Const Vital Signs: 07/17/24 11:01 Temperature 98.4 F Temperature Source Temporal Pulse Rate 116 H Respiratory Rate 17 Blood Pressure 152/108 H Blood Pressure Mean 122 Pulse Ox 96 Oxygen Delivery Method Room Air MDM <LINDA Hills - Last Filed: 07/17/24 12:55> [facility] Narrative Medical decision making narrative: Patient presenting today requesting to detox from alcohol. She last drink this morning. She is shaky and feels like she may be withdrawing. Her last drink was this morning. She otherwise is nontoxic-appearing and in no acute distress. She is slightly tachycardic, she was given Ativan here. Labs will be obtained and I will contact the hospitalist for admission. Lab Data Labs: Laboratory Results - last 24 hr 07/17/24 07/17/24 12:10 12:35 WBC 7.5 RBC 4.46 Hgb 14.3 Hct 41.1 MCV 92.2 MCH 32.1 H MCHC 34.8 RDW Std Deviation 43.5 RDW Coeff of Adilia 12.9 Plt Count 165 MPV 9.1 Immature Gran % (Auto) 1.200 H Neut % (Auto) 53.1 Lymph % (Auto) 31.6 [place] % (Auto) 10.6 H Eos % (Auto) 2.0 Baso % (Auto) 1.5 H Absolute Neuts (auto) 4.0 Absolute Lymphs (auto) 2.38 Nucleated RBC % 0 Sodium 139 Potassium 3.3 L Chloride 102 Carbon Dioxide 29.0 Anion Gap 8 BUN 10 Creatinine 0.58 Estim Creat Clear Calc 100.83 Est GFR (MDRD) Af Amer 136 Est GFR (MDRD) Non-Af 113 BUN/Creatinine Ratio 17.2 Glucose 113 H Calcium 8.6 Total Bilirubin 0.70 AST 152 H ALT 68 H Alkaline Phosphatase 159 H Total Protein 7.2 Albumin 3.4 Globulin 3.8 Albumin/Globulin Ratio 0.9 Ur Drug Screen Comment Ethyl Alcohol 180.0 <Dr. Sukhjinder Palencia MD - Last Filed: 07/17/24 12:38> [facility] Narrative Medical decision making narrative: Patient presenting today requesting to detox from alcohol. She last drink this morning. She is shaky and feels like she may be withdrawing. Her last drink was this morning. She otherwise is nontoxic-appearing and in no acute distress. She is slightly tachycardic, she was given Ativan here. Labs will be obtained and I will contact the hospitalist for admission. I have personally performed a face to face assessment of the patient and have reviewed the BLANKA Note. I performed a substantive portion of the visit including all aspects of the following. My tolbert findings include: History is 59-year-old female history of prior left high lower extremity amputation from infection. Presents requesting detox for alcohol abuse. States has been drinking for over a year. Exam is [5-year-old female no acute distress. Vital signs stable afebrile. H EENT exam unremarkable. Moist mucous members. Neck nontender. Back nontender. Lungs clear to auscultation bilateral. Heart regular rhythm rate about 110 no murmur. Abdomen soft nontender. Moving all 3 extremities. She is a high left leg amputation just below the hip. Extremities are nontender no edema. Normal strength. Neurologically she is awake alert no focal motor deficits.] Medical Decision Making [patient will undergo detox labs and will speak to the hospitalist about admission.] Other additions or changes: [None] History & Record Review Discussion w/independent historian: Patient Lab Data Attestation: I reviewed the patient's lab results. Lab results narrative: CBC shows a white count of 7. H&H 14 and 41. Platelets 165. Electrolytes show potassium of 3.3. Gap of 8. Normal BUN of 10 creatinine 0.58. Glucose 113. Liver enzymes show an AST of 152. ALT is 68. Alk phos 159. Alcohol level is elevated at 180. Labs: Laboratory Results - last 24 hr 07/17/24 07/17/24 12:10 12:35 WBC 7.5 RBC 4.46 Hgb 14.3 Hct 41.1 MCV 92.2 MCH 32.1 H MCHC 34.8 RDW Std Deviation 43.5 RDW Coeff of Adilia 12.9 Plt Count 165 MPV 9.1 Immature Gran % (Auto) 1.200 H Neut % (Auto) 53.1 Lymph % (Auto) 31.6 [place] % (Auto) 10.6 H Eos % (Auto) 2.0 Baso % (Auto) 1.5 H Absolute Neuts (auto) 4.0 Absolute Lymphs (auto) 2.38 Nucleated RBC % 0 Sodium 139 Potassium 3.3 L Chloride 102 Carbon Dioxide 29.0 Anion Gap 8 BUN 10 Creatinine 0.58 Estim Creat Clear Calc 100.83 Est GFR (MDRD) Af Amer 136 Est GFR (MDRD) Non-Af 113 BUN/Creatinine Ratio 17.2 Glucose 113 H Calcium 8.6 Total Bilirubin 0.70 AST 152 H ALT 68 H Alkaline Phosphatase 159 H Total Protein 7.2 Albumin 3.4 Globulin 3.8 Albumin/Globulin Ratio 0.9 Ur Drug Screen Comment Ethyl Alcohol 180.0 Discharge Plan Triage Chief Complaint: Substance Abuse ED Midlevel Provider: Richelle Brady ED Provider: Sukhjinder Palencia Dx/Rx/DC Orders Clinical Impression: Alcohol abuse, Admitted to alcohol detoxification center, Acute alcohol intoxication Prescriptions: No Action divalproex 500 mg tablet,delayed release (DR/EC) 500 mg PO BID Qty: 180 3RF aspirin 81 MG tablet 81 mg PO DAILY acetaminophen 500 MG tablet 1,000 mg PO BID PRN PRN (Reason: Pain) ascorbic acid (vitamin C) [Vitamin C] 500 MG tablet 1,000 mg PO DAILY atorvastatin 40 mg tablet 40 mg PO DAILY buprenorphine-naloxone 8-2 mg tablet, sublingual 2 tab sublingual DAILY escitalopram oxalate 10 mg tablet 10 mg PO DAILY Primary Care Provider: Issac Karimi Referrals: Issac Karimi MD [Primary Care Provider] - Print Language: Trinidadian Disposition Disposition: Acute Care [facility]
--- NOTE | 2024-07-17 12:04 | HP.PCM.HOS_ITS ---
HPI - General General Date of Admission: 07/17/24 Date of Service: 07/17/24 Chief Complaint: Tremors HPI Narrative PARDEEP MARK, is a 59 F who presented to the emergency department with a desire to undergo detoxification. Patient admitted to heavy alcohol use since November 2023. She drinks 1 bottle of rum almost on a daily basis. He had previously tried to quit cold turkey however was not successful. She finally called her daughter who brought her to the emergency department. Subsequently admitted to regular nursing floor for initiation of alcohol medical stabilization protocol [facility] Medical History Amputation of leg Seizures Substance abuse Depression Failure of outpatient treatment Opioid use disorder Generalized anxiety disorder Major depressive disorder, recurrent severe without psychotic features History of drug overdose Drug abuse Unilateral above knee amputation Hyperlipemia Seizures Hyperlipidemia Home Medications ?Medication ?Instructions ?Recorded ?Last Taken ?Type acetaminophen 500 mg tablet 1,000 mg PO BID PRN PRN Pain 05/20/18 06/23/19 History ascorbic acid (vitamin C) 500 mg 1,000 mg PO DAILY supplement 05/20/18 07/17/24 History tablet (Vitamin C) aspirin 81 mg tablet,delayed 81 mg PO DAILY heart health 05/20/18 07/17/24 History release atorvastatin 40 mg tablet 40 mg PO DAILY 12/26/23 07/17/24 History buprenorphine 8 mg-naloxone 2 mg 2 tab sublingual DAILY 12/26/23 07/17/24 History sublingual tablet divalproex 500 mg tablet,delayed 500 mg PO BID Seizure disorder 07/01/24 07/17/24 Rx release #180 tabs escitalopram oxalate 10 mg tablet 10 mg PO DAILY 07/17/24 07/17/24 History Allergy/AdvReac Type Severity Reaction Status Date / Time metoclopramide HCl (From Allergy shaking Verified 07/17/24 11:03 Reglan) prochlorperazine (From Allergy Hives Verified 07/17/24 11:03 Compazine) promethazine (From Phenergan) Allergy Hives Verified 07/17/24 11:03 Family History Mother Dementia CVA (cerebral vascular accident) Myocardial infarction Father Heart disease Hypercholesteremia Surgical History H/O wrist surgery Social History household members: none Smoking Status: Never smoker alcohol intake: current details: occasional glass of wine substance use type: does not use caffeine: No do you feel safe at home: Yes ROS ROS Narrative GENERAL: denies fever, chills, night sweats, HEENT: Nasal congestion RESPIRATORY: denies cough, sputum production, CARDIAC: denies chest pain, palpitations, orthopnea, PND GASTROINTESTINAL: denies abdominal pain, nausea, vomiting, melena, GENITOURINARY: denies dysuria, urgency, frequency, heamaturia EXTREMITY: denies swelling MUSCULOSKELETAL: denies current joint pain or tenderness NEUROLOGIC: denies focal numbness, weakness, tingling HEMATOLOGIC: denies easy bruising and/or hemorrhage INTEGUMENT: denies rashes PSYCHIATRIC: denies suicidal or homicidal ideation Vital Signs Vital Signs Vital Signs: 07/17/24 11:01 Temperature 98.4 F Temperature Source Temporal Pulse Rate 116 H Respiratory Rate 17 Blood Pressure 152/108 H Blood Pressure Mean 122 Pulse Ox 96 Oxygen Delivery Method Room Air Weight Weight: 76.204 kg Body Mass Index (BMI) 29.7 Physical Exam Narrative GENERAL: Tremulous HEENT: Atraumatic; EYES; Anicteric, Normal Conjunctiva NECK; supple, normal thyroid, RESPIRATORY: Diminished to auscultation CARDIOVASCULAR: Regular S1 S2, GI: soft, normoactive bowel sounds, : No Renal angle tenderness; EXTREMITIES: No edema, no clubbing, MUSCULOSKELETAL: Left AKA NEURO: Awake; no lateralizing signs. SKIN: No Rash PSYCH; Flat affect Results Lab / Micro Data 07/17/24 12:10 07/17/24 12:10 Assessment & Plan Assessment/Plan (1) Alcohol withdrawal seizure without complication: PLAN: Plan Patient is a 56-year-old lady admitted with alcohol withdrawal 1. Acute alcohol withdrawal - Patient has been admitted for treatment with phenobarb taper in addition to adjuvant medications including gabapentin, Bentyl, hydroxyzine and clonidine as needed for alcohol withdrawal symptoms. Patient was also placed on thiamine and folic acidConsultation placed to 180 counseling services 2. Complex partial seizures ?Patient is on Depakote did continue 3. Previous history of opioid dependence ? Patient has remained in remission for several years and is currently on Suboxone plan is to continue with home dose of equivalent 4. 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 Patient has residual phantom leg syndrome 5. Dyslipidemia ?Patient is on statin therapy, continued at home dose 6. Depression with anxiety ? Patient is on escitalopram did continue 7. Overweight with BMI of 29.8 -weight loss advised 8. DVT prophylaxis ?SC Lovenox Time spent in the patient's overall evaluation,decision-making process, review of diagnostic data, adjustment of management, discussion with other providers, nursing nursing and ancillary staff involved in patient's care documentation,55 Minutes Charges/Coding Visit Charges Inpatient E&M: 37941 Init Hosp L2
[2024-07-17 12:18] LABS: Absolute Lymphocyte Count 2.38 X10^3/uL (0.83-4.51); Basophil# 0.11 X10^3/uL; Basophil% 1.5 % (0-1); Eosinophil# 0.15 X10^3/uL; Hematocrit 41.1 % (37-47); Hemoglobin 14.3 g/dL (12.0-15.0); Lymphocyte # 2.38 X10^3/ul (0.83-4.51); Lymphocyte % 31.6 % (19-41); Mean Corp Hgb Conc 34.8 g/dL (32-36); Mean Corpuscular Hgb 32.1 pg (27.0-32.0); Mean Corpuscular Volume 92.2 fL (81-99); Mean Platelet Vol. 9.1 fl (6.2-12.0); Monocyte% 10.6 % (0-10); NRBC Flagged by Analyzer 0 % (0-5); Neutrophil # 4.01 X10^3/uL (2.7-7.7); Neutrophil % 53.1 % (47-70); Platelet Count 165 K/mm3 (150-450); RBC Distribution Width CV 12.9 % (11.6-14.6); RBC Distribution Width SD 43.5 fl (35.1-43.9); Red Blood Count 4.46 M/mm3 (4.2-5.4); White Blood Count 7.5 K/mm3 (4.4-11.0)
[2024-07-17] MEDS: LORazepam 2 MG/ML Syringe 1 MG IV (12:31)
[2024-07-17 12:35] LABS: ALB/GLOB Ratio 0.9 RATIO (0.9-2.4); AST(SGOT) 152 U/L (15-37); Alanine Aminotransfer ALT/SGPT 68 U/L (13-56); Albumin, Serum 3.4 g/dL (3.2-5.0); Alkaline Phosphatase 159 U/L (45-117); Anion Gap 8 (5-15); BUN 10 mg/dL (7-18); BUN/Creat Ratio 17.2 RATIO (10-20); Calcium,Total 8.6 mg/dL (8.5-10.1); Chloride 102 mmol/L (98-107); Creatinine, Serum 0.58 mg/dL (0.55-1.02); EST Glomerular Filtration Rate 113 mL/min (>60); Est Glom Filt Rate - Afr Amer 136 mL/min (>60); Estimated Creatinine Clearance 100.83 ml/min; Globulin 3.8 g/dL (2.2-4.2); Glucose 113 mg/dL (74-106); Potassium 3.3 mmol/L (3.5-5.1); Protein, Total 7.2 g/dL (6.4-8.2); Sodium Level 139 mmol/L (136-145)
[2024-07-17 13:02] LABS: Amphetamine Urine VISTA NEGATIVE (<1000 ng/mL); Barbiturate Urine VISTA NEGATIVE (< 200 ng/mL); Benzodiazepine Urine VISTA NEGATIVE (< 200 ng/mL); Cocaine Urine VISTA NEGATIVE (< 300 ng/mL); Ecstacy Urine VISTA NEGATIVE (< 500 ng/mL); Methadone Urine VISTA NEGATIVE (< 300 ng/mL); PCP Urine VISTA NEGATIVE (< 25 ng/mL); THC Urine VISTA NEGATIVE (< 50 ng/mL); Vista UDS pH Range 7
[2024-07-17 13:17] VITALS: BP 139/88; PULSE 102; RESP 17; TEMP 36.4; O2SAT 96
[2024-07-17 13:57] VITALS: BP 143/98; PULSE 90; RESP 18; TEMP 36.2; O2SAT 95
[2024-07-17 14:16] VITALS: BMI 29.7
[2024-07-17] MEDS: Lactated Ringers 1,000 ML 125 ML IV (14:42)
[2024-07-17] MEDS: Phenobarbital 32.4 MG Tablet 64.8 MG PO ×3 (14:42→21:53)
[2024-07-17] MEDS: CLARIFY ORDER NOTE (15:07)
--- NOTE | 2024-07-17 15:09 | NURSING ---
Rakan England to bring in last 2 doses of suboxone this afternoon. Pt took this days dose. Communicated this to pharmacy. Can switch to Subutex Tues if pt still here.
[2024-07-17 17:39] VITALS: BP 174/97; PULSE 93; RESP 20; TEMP 36.8; O2SAT 95
[2024-07-17] MEDS: hydrOXYzine PAM 25 MG Capsule 50 MG PO ×2 (17:47→21:53)
[2024-07-17] MEDS: Gabapentin 300 MG Capsule PO (18:53)
[2024-07-17] MEDS: traZODone 100 MG Tablet PO (21:53)
[2024-07-17] MEDS: Divalproex Sodium 250 MG Tablet 500 MG PO (21:53)
[2024-07-17 21:57] VITALS: BP 158/87; PULSE 88; RESP 16; TEMP 36.6; O2SAT 96
[2024-07-18] MEDS: hydrOXYzine PAM 25 MG Capsule 50 MG PO ×4 (01:51→22:06)
[2024-07-18] MEDS: Phenobarbital 32.4 MG Tablet 64.8 MG PO ×6 (01:51→22:06)
[2024-07-18 01:57] VITALS: BP 150/89; PULSE 82; RESP 16; TEMP 36.6; O2SAT 99
[2024-07-18 05:51] VITALS: BP 159/84; PULSE 93; RESP 16; TEMP 36.6; O2SAT 96
--- NOTE | 2024-07-18 07:33 | PN.HOSP_ITS ---
Reason for Visit Reason for Visit: Diagnoses Alcohol use, unspecified with withdrawal, uncomplicated (07/17/24) Unspecified convulsions (07/17/24) Subjective Subjective Patient is a 67-year-old lady with history of chronic alcohol dependence admitted with acute alcohol withdrawal admitted to regular nursing floor where patient is currently being managed. Seen this a.m. diagnostic data significant for potassium of 3.3 replacement initiated Objective Data Objective Data Vital Signs: Vital Signs Temp Pulse Resp BP Pulse Ox O2 Del Method 97.8 F 93 16 159/84 H 96 Room Air 07/18/24 05:51 07/18/24 05:51 07/18/24 05:51 07/18/24 05:51 07/18/24 05:51 07/18/24 05:51 Oxygen Delivery Method Room Air Weight: 76.204 kg Body Mass Index (BMI) 29.7 Intake & Output: Intake and Output for Last 24 Hours 07/16/24 07/17/24 07/18/24 23:59 23:59 23:59 Intake Total 1120 / 1120 Balance 1120 / 1120 Lab / Micro Data 07/17/24 12:10 07/17/24 12:10 Labs: Laboratory Results - last 24 hr 07/17/24 12:10: WBC 7.5, RBC 4.46, Hgb 14.3, Hct 41.1, MCV 92.2, MCH 32.1 H, MCHC 34.8, RDW Std Deviation 43.5, RDW Coeff of Adilia 12.9, Plt Count 165, MPV 9.1, Immature Gran % (Auto) 1.200 H, Neut % (Auto) 53.1, Lymph % (Auto) 31.6, M tina % (Auto) 10.6 H, Eos % (Auto) 2.0, Baso % (Auto) 1.5 H, Absolute Neuts (auto) 4.0, Absolute Lymphs (auto) 2.38, Nucleated RBC % 0, Sodium 139, P otassium 3.3 L, Chloride 102, Carbon Dioxide 29.0, Anion Gap 8, BUN 10, Creatinine 0.58, Estim Creat Clear Calc 100.83, Est GFR (MDRD) Af Amer 136, Est GFR (MDRD) Non-Af 113, BUN/Creatinine Ratio 17.2, Glucose 113 H, Calcium 8.6, Total Bilirubin 0.70, AST 152 H, ALT 68 H, Alkaline Phosphatase 159 H, Total Protein 7.2, Albumin 3.4, Globulin 3.8, Albumin/Globulin Ratio 0.9, Ethyl Alcohol 180.0 07/17/24 12:35: Urine Opiates Screen NEGATIVE, Urine Methadone Screen NEGATIVE, Ur Barbiturates Screen NEGATIVE, Ur Phencyclidine Scrn NEGATIVE, Ur Amphetamines Screen NEGATIVE, MDMA (Ecstasy) Screen NEGATIVE, U Benzodiazepines Scrn NEGATIVE, Urine Cocaine Screen NEGATIVE, U Cannabinoids Screen NEGATIVE, Ur Drug Screen Comment Physical Exam Narrative GENERAL: Tremulous HEENT: Atraumatic; EYES; Anicteric, Normal Conjunctiva NECK; supple, normal thyroid, RESPIRATORY: Diminished to auscultation CARDIOVASCULAR: Regular S1 S2, GI: soft, normoactive bowel sounds, : No Renal angle tenderness; EXTREMITIES: No edema, no clubbing, MUSCULOSKELETAL: Left AKA NEURO: Awake; no lateralizing signs. SKIN: No Rash PSYCH; Flat affect Assessment & Plan Assessment/Plan (1) Alcohol withdrawal seizure without complication: PLAN: Plan Patient is a 56-year-old lady admitted with alcohol withdrawal 1. Acute alcohol withdrawal - Patient has been admitted for treatment with phenobarb taper in addition to adjuvant medications including gabapentin, Bentyl, hydroxyzine and clonidine as needed for alcohol withdrawal symptoms. Patient was also placed on thiamine and folic acidConsultation placed to 180 counseling services 2. Complex partial seizures ?Patient is on Depakote did continue 3. Previous history of opioid dependence ? Patient has remained in remission for several years and is currently on Suboxone plan is to continue with home dose of equivalent 4. 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 Patient has residual phantom leg syndrome 5. Dyslipidemia ?Patient is on statin therapy, continued at home dose 6. Depression with anxiety ? Patient is on escitalopram did continue 7. Overweight with BMI of 29.8 -weight loss advised 8. DVT prophylaxis ?SC Lovenox 9. Hypokalemia -Corrected per protocol Time spent in the patient's overall evaluation,decision-making process, review of diagnostic data, adjustment of management, discussion with other providers, nursing nursing and ancillary staff involved in patient's care documentation, 50 Minutes Charges/Coding Visit Charges Inpatient E&M: 92272 [facility] L3
[2024-07-18 07:35] VITALS: BP 148/87; PULSE 87; RESP 18; TEMP 37.1; O2SAT 93
[2024-07-18] MEDS: Enoxaparin 40 MG/0.4 ML Syringe SC (07:39)
[2024-07-18] MEDS: Gabapentin 300 MG Capsule PO ×2 (07:39→22:06)
[2024-07-18] MEDS: Thiamine Hydrochloride 100 MG Tablet PO (07:40)
[2024-07-18] MEDS: Escitalopram Oxalate 10 MG Tablet PO (07:40)
[2024-07-18] MEDS: Folic Acid 1 MG Tablet PO (07:40)
[2024-07-18] MEDS: Divalproex Sodium 250 MG Tablet 500 MG PO ×2 (07:40→22:07)
[2024-07-18] MEDS: Aspirin E.C. 81 MG Tablet PO (07:40)
[2024-07-18] MEDS: BUPRENORPHINE HCL/NALOXONE HCL 1 EACH TAB.SUBL 2 EACH SL (10:01)
[2024-07-18 12:55] VITALS: BP 137/76; PULSE 95; RESP 18; TEMP 37.3; O2SAT 95
--- NOTE | 2024-07-18 15:58 | ADDICTION ---
Pt was met with to complete his [facility] assessment, AUDIT, DUDIT, ASAM, Mt.Stat, and D/C Plans. Pt presents as a 59 yr old female admitted to [facility] d/t severe alcohol use disorder w/complicated w/d sxs and mh comorbidities. Pt declines interest in residential tx and pt is set up with a myriad outpatient tx providers. Pt is scheduled to f/u with psychiatrist Ratna Recio at [facility], Dr. Emily Santiago at [facility] for EMDR and trauma tx, and [facility] for MAT and counseling. Pt was provided info on community resources and given contact info for 03/02 hotline numbers. Pt states her daughter will pick her up from [facility] once discharged.
[2024-07-18 16:26] VITALS: BP 109/60; RESP 20; TEMP 36.9; O2SAT 97
[2024-07-18 22:05] VITALS: BP 133/83; PULSE 76; RESP 16; TEMP 36.6; O2SAT 95
[2024-07-18] MEDS: traZODone 100 MG Tablet PO (22:06)
[2024-07-18] MEDS: Atorvastatin Calcium 40 MG Tablet PO (22:06)
[2024-07-19 02:08] VITALS: BP 111/74; PULSE 75; RESP 16; TEMP 36.5; O2SAT 95
[2024-07-19] MEDS: hydrOXYzine PAM 25 MG Capsule 50 MG PO (02:11)
[2024-07-19] MEDS: Phenobarbital 32.4 MG Tablet 64.8 MG PO ×6 (02:11→22:34)
[2024-07-19] MEDS: 0.9% Saline Lock 10 ML Syringe IV (02:12)
[2024-07-19] MEDS: Gabapentin 300 MG Capsule PO (06:11)
--- NOTE | 2024-07-19 07:21 | PCM.PN.HOSP ---
Reason for Visit Reason for Visit: Diagnoses Alcohol use, unspecified with withdrawal, uncomplicated (07/17/24) Unspecified convulsions (07/17/24) Subjective Subjective Patient seen still has significant tremors. Plan is to continue with current phenobarb taper Objective Data Objective Data Vital Signs: Vital Signs Temp Pulse Resp BP Pulse Ox O2 Del Method 97.7 F L 75 16 111/74 95 Room Air 07/19/24 02:08 07/19/24 02:08 07/19/24 02:08 07/19/24 02:08 07/19/24 02:08 07/19/24 02:08 Oxygen Delivery Method Room Air Weight: 76.204 kg Body Mass Index (BMI) 29.7 Intake & Output: Intake and Output for Last 24 Hours 07/17/24 07/18/24 07/19/24 23:59 23:59 23:59 Intake Total 1120 / 1120 Balance 1120 / 1120 Lab / Micro Data 07/17/24 12:10 07/17/24 12:10 Physical Exam Narrative GENERAL: Tremulous HEENT: Atraumatic; EYES; Anicteric, Normal Conjunctiva NECK; supple, normal thyroid, RESPIRATORY: Diminished to auscultation CARDIOVASCULAR: Regular S1 S2, GI: soft, normoactive bowel sounds, : No Renal angle tenderness; EXTREMITIES: No edema, no clubbing, MUSCULOSKELETAL: Left AKA NEURO: Awake; no lateralizing signs. SKIN: No Rash PSYCH; Flat affect Assessment & Plan Assessment/Plan (1) Alcohol withdrawal seizure without complication: PLAN: Plan Patient is a 56-year-old lady admitted with alcohol withdrawal 1. Acute alcohol withdrawal - Patient has been admitted for treatment with phenobarb taper in addition to adjuvant medications including gabapentin, Bentyl, hydroxyzine and clonidine as needed for alcohol withdrawal symptoms. Patient was also placed on thiamine and folic acidConsultation placed to 180 counseling services ? 07/19/2024;Patient seen still has significant tremors. Plan is to continue with current phenobarb taper 2. Complex partial seizures ?Patient is on Depakote did continue 3. Previous history of opioid dependence ? Patient has remained in remission for several years and is currently on Suboxone plan is to continue with home dose of equivalent 4. 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 Patient has residual phantom leg syndrome 5. Dyslipidemia ?Patient is on statin therapy, continued at home dose 6. Depression with anxiety ? Patient is on escitalopram did continue 7. Overweight with BMI of 29.8 -weight loss advised 8. DVT prophylaxis ?SC Lovenox 9. Hypokalemia -Corrected per protocol Time spent in the patient's overall evaluation,decision-making process, review of diagnostic data, adjustment of management, discussion with other providers, nursing nursing and ancillary staff involved in patient's care documentation, 36 minutes Charges/Coding Visit Charges Inpatient E&M: 59158 Subs Hosp L2
[2024-07-19 07:55] VITALS: BP 124/78; PULSE 75; RESP 16; TEMP 36.6; O2SAT 94
[2024-07-19] MEDS: Folic Acid 1 MG Tablet PO (08:02)
[2024-07-19] MEDS: Aspirin E.C. 81 MG Tablet PO (08:02)
[2024-07-19] MEDS: Thiamine Hydrochloride 100 MG Tablet PO (08:02)
[2024-07-19] MEDS: Divalproex Sodium 250 MG Tablet 500 MG PO ×2 (10:01→22:34)
[2024-07-19] MEDS: Enoxaparin 40 MG/0.4 ML Syringe SC (10:02)
[2024-07-19] MEDS: Escitalopram Oxalate 10 MG Tablet PO (10:02)
[2024-07-19] MEDS: BUPRENORPHINE HCL/NALOXONE HCL 1 EACH TAB.SUBL 2 EACH SL (10:08)
[2024-07-19 13:55] VITALS: BP 115/77; PULSE 81; RESP 16; TEMP 36.8; O2SAT 93
--- NOTE | 2024-07-19 16:26 | ADDICTION ---
Pt was met with to discuss her D/C plans and her daughter Alison Colon's calls to the nursing staff and tx navigator with concerns about her mother's treatment plans. Pt was informed of her daughter's desire that she enter a residential facility and pt denies any interest in going into a residential tx facility at this time. Pt states she would like to follow up with Dr. Santiago for EMDR at [facility], MAT at [facility] or switch to [facility] w/Dr. Levine, Psychiatry w/Dr. Recio at [facility], and begin working with a [facility] evidence specialist. Pt agreed to consider IOP and to discuss w/Dr. Santiago at her appt. Pt agreed that she would like to try to address her CK and MH in outpatient and if she begins to struggle in outpatient, she would be willing to enter residential treatment.
[2024-07-19 20:08] VITALS: BP 116/75; PULSE 78; RESP 16; TEMP 37.8; O2SAT 95
[2024-07-19] MEDS: Atorvastatin Calcium 40 MG Tablet PO (22:34)
[2024-07-20 01:57] VITALS: BP 117/64; PULSE 89; RESP 15; TEMP 37.1; O2SAT 93
[2024-07-20] MEDS: Phenobarbital 32.4 MG Tablet 64.8 MG PO (04:25)
[2024-07-20 04:28] VITALS: BP 120/71; PULSE 80; RESP 16; TEMP 37; O2SAT 93
[2024-07-20] MEDS: 0.9% Saline Lock 10 ML Syringe IV (05:39)
--- NOTE | 2024-07-20 07:31 | PCM.PN.HOSP ---
Reason for Visit Reason for Visit: Diagnoses Alcohol use, unspecified with withdrawal, uncomplicated (07/17/24) Unspecified convulsions (07/17/24) Subjective Subjective Patient seen still remains quite tremulous. Discontinued phenobarb taper. Plan is to monitor patient for an additional day prior to discharge. Objective Data Objective Data Vital Signs: Vital Signs Temp Pulse Resp BP Pulse Ox O2 Del Method 98.6 F 80 16 120/71 93 Room Air 07/20/24 04:28 07/20/24 04:28 07/20/24 04:28 07/20/24 04:28 07/20/24 04:28 07/20/24 04:28 Oxygen Delivery Method Room Air Weight: 76.204 kg Body Mass Index (BMI) 29.7 Intake & Output: Intake and Output for Last 24 Hours 07/18/24 07/19/24 07/20/24 23:59 23:59 23:59 Intake Total 400 / 400 300 / 300 Balance 400 / 400 300 / 300 Lab / Micro Data 07/17/24 12:10 07/17/24 12:10 Physical Exam Narrative GENERAL: Tremulous HEENT: Atraumatic; EYES; Anicteric, Normal Conjunctiva NECK; supple, normal thyroid, RESPIRATORY: Diminished to auscultation CARDIOVASCULAR: Regular S1 S2, GI: soft, normoactive bowel sounds, : No Renal angle tenderness; EXTREMITIES: No edema, no clubbing, MUSCULOSKELETAL: Left AKA NEURO: Awake; no lateralizing signs. SKIN: No Rash PSYCH; Flat affect Assessment & Plan Assessment/Plan (1) Alcohol withdrawal seizure without complication: PLAN: Plan Patient is a 56-year-old lady admitted with alcohol withdrawal 1. Acute alcohol withdrawal - Patient has been admitted for treatment with phenobarb taper in addition to adjuvant medications including gabapentin, Bentyl, hydroxyzine and clonidine as needed for alcohol withdrawal symptoms. Patient was also placed on thiamine and folic acidConsultation placed to [facility] counseling services ? 07/19/2024;Patient seen still has significant tremors. Plan is to continue with current phenobarb taper ? 07/20/2024; phenobarb taper discontinued with patient being significantly lethargic. Plan was to monitor patient for an additional day with possible discharge in a.m. 2. Complex partial seizures ?Patient is on Depakote did continue 3. Previous history of opioid dependence ? Patient has remained in remission for several years and is currently on Suboxone plan is to continue with home dose of equivalent 4. 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 Patient has residual phantom leg syndrome 5. Dyslipidemia ?Patient is on statin therapy, continued at home dose 6. Depression with anxiety ? Patient is on escitalopram did continue 7. Overweight with BMI of 29.8 -weight loss advised 8. DVT prophylaxis ?SC Lovenox 9. Hypokalemia -Corrected per protocol Time spent in the patient's overall evaluation,decision-making process, review of diagnostic data, adjustment of management, discussion with other providers, nursing nursing and ancillary staff involved in patient's care documentation, 36 minutes Charges/Coding Visit Charges Inpatient E&M: 10904 Subs Hosp L2
[2024-07-20 08:01] VITALS: BP 116/71; PULSE 87; RESP 16; TEMP 37.2; O2SAT 97
[2024-07-20] MEDS: Aspirin E.C. 81 MG Tablet PO (08:12)
[2024-07-20] MEDS: Divalproex Sodium 250 MG Tablet 500 MG PO ×2 (08:12→21:31)
[2024-07-20] MEDS: Escitalopram Oxalate 10 MG Tablet PO (08:12)
[2024-07-20] MEDS: Thiamine Hydrochloride 100 MG Tablet PO (08:12)
[2024-07-20] MEDS: Enoxaparin 40 MG/0.4 ML Syringe SC (08:13)
[2024-07-20] MEDS: Folic Acid 1 MG Tablet PO (08:13)
[2024-07-20] MEDS: buprenorphine HCL 8 MG TAB.SUBL 16 MG SL (08:20)
[2024-07-20 14:00] VITALS: BP 111/83; PULSE 91; RESP 16; TEMP 37.7; O2SAT 98
[2024-07-20] MEDS: hydrOXYzine PAM 25 MG Capsule 50 MG PO (16:00)
[2024-07-20] MEDS: Atorvastatin Calcium 40 MG Tablet PO (21:31)
[2024-07-20 21:33] VITALS: BP 112/71; PULSE 72; RESP 16; TEMP 36.8; O2SAT 98
[2024-07-21 02:07] VITALS: BP 107/81; PULSE 96; RESP 16; TEMP 37.3; O2SAT 97
[2024-07-21] MEDS: 0.9% Saline Lock 10 ML Syringe IV (06:31)
[2024-07-21 08:00] VITALS: BP 109/61; PULSE 78; RESP 14; TEMP 36.8; O2SAT 94
[2024-07-21] MEDS: Escitalopram Oxalate 10 MG Tablet PO (08:11)
[2024-07-21] MEDS: Divalproex Sodium 250 MG Tablet 500 MG PO (08:11)
[2024-07-21] MEDS: Aspirin E.C. 81 MG Tablet PO (08:11)
[2024-07-21] MEDS: Enoxaparin 40 MG/0.4 ML Syringe SC (08:11)
[2024-07-21] MEDS: Thiamine Hydrochloride 100 MG Tablet PO (08:11)
[2024-07-21] MEDS: Folic Acid 1 MG Tablet PO (08:11)
[2024-07-21] MEDS: buprenorphine HCL 8 MG TAB.SUBL 16 MG SL (08:18)
--- NOTE | 2024-07-21 08:50 | PCM.PN.HOSP ---
Reason for Visit Reason for Visit: Diagnoses Alcohol use, unspecified with withdrawal, uncomplicated (07/17/24) Unspecified convulsions (07/17/24) Subjective Subjective Patient seen complaining of urinary frequency and dysuria requested for urinalysis her overall clinical condition markedly improved compared to the day prior Objective Data Objective Data Vital Signs: Vital Signs Temp Pulse Resp BP Pulse Ox O2 Del Method 98.2 F 78 14 109/61 94 Room Air 07/21/24 08:00 07/21/24 08:00 07/21/24 08:00 07/21/24 08:00 07/21/24 08:00 07/21/24 08:00 Oxygen Delivery Method Room Air Weight: 76.204 kg Body Mass Index (BMI) 29.7 Intake & Output: Intake and Output for Last 24 Hours 07/19/24 07/20/24 07/21/24 23:59 23:59 23:59 Intake Total 400 / 400 800 / 800 400 / 400 Balance 400 / 400 800 / 800 400 / 400 Lab / Micro Data 07/17/24 12:10 07/17/24 12:10 Physical Exam Narrative GENERAL: Patient in no apparent distress HEENT: Atraumatic; EYES; Anicteric, Normal Conjunctiva NECK; supple, normal thyroid, RESPIRATORY: Diminished to auscultation CARDIOVASCULAR: Regular S1 S2, GI: soft, normoactive bowel sounds, : No Renal angle tenderness; EXTREMITIES: No edema, no clubbing, MUSCULOSKELETAL: Left AKA NEURO: Awake; no lateralizing signs. SKIN: No Rash PSYCH; Flat affect Assessment & Plan Assessment/Plan (1) Alcohol withdrawal seizure without complication: PLAN: Plan Patient is a 56-year-old lady admitted with alcohol withdrawal 1. Acute alcohol withdrawal - Patient has been admitted for treatment with phenobarb taper in addition to adjuvant medications including gabapentin, Bentyl, hydroxyzine and clonidine as needed for alcohol withdrawal symptoms. Patient was also placed on thiamine and folic acidConsultation placed to [facility] counseling services ? 07/19/2024;Patient seen still has significant tremors. Plan is to continue with current phenobarb taper ? 07/20/2024; phenobarb taper discontinued with patient being significantly lethargic. Plan was to monitor patient for an additional day with possible discharge in a.m. 2. Complex partial seizures ?Patient is on Depakote did continue 3. Previous history of opioid dependence ? Patient has remained in remission for several years and is currently on Suboxone plan is to continue with home dose of equivalent 4. 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 Patient has residual phantom leg syndrome 5. Dyslipidemia ?Patient is on statin therapy, continued at home dose 6. Depression with anxiety ? Patient is on escitalopram did continue 7. Overweight with BMI of 29.8 -weight loss advised 8. DVT prophylaxis ?SC Lovenox 9. Hypokalemia -Corrected per protocol 10. Suspected cystitis ? Patient started on ceftriaxone urine culture sent follow-up on result Time spent in the patient's overall evaluation,decision-making process, review of diagnostic data, adjustment of management, discussion with other providers, nursing nursing and ancillary staff involved in patient's care documentation, 36 minutes Charges/Coding Visit Charges Inpatient E&M: 45859 Subs Hosp L2
[2024-07-21 08:53] LABS: Mucous, Urine 0 SEEN /hpf (<or=2+)
[2024-07-21 09:02] LABS: Color, Urine Yellow (Yellow); Glucose, Dipstick Normal (Normal); Ketone-Dipstick 5 mg/dl (Negative); Leukocyte Esterase-Dipstick 500 /ul (Negative); Nitrite-Dipstick Positive (Negative); Occult Blood-Urine 250 /ul (Negative); Protein-Dipstick 100 mg/dl (Negative); Specific Gravity, Urine 1.015 (1.002-1.030); Urine Bilirubin Dipstick Negative (Negative); Urine Clarity Sl. Cloudy (Clear); Urine Urobilinogen 1 mg/dl (Normal)
[2024-07-21 09:10] LABS: Bacteria 1+ /hpf (None Seen); Red Blood Cells-Urine 10-25 SEEN /hpf (0-5); Squamous Epithelial Cells - UA 0-5 SEEN /hpf (5-10); White Blood Cells 25-50 SEEN /hpf (0-5)
--- NOTE | 2024-07-21 10:29 | PCM.DC.SUM ---
Providers Date of Admission: 07/17/24 Date of Discharge: 07/21/24 Primary Care Physician: Dr. Issac Karimi MD Reason For Visit: ALCOHOL WITHDRAWAL Diagnosis Discharge Diagnosis (1) Alcohol withdrawal seizure without complication: Status: Acute Code(s): F10.930 - Alcohol use, unspecified with withdrawal, uncomplicated; R56.9 - Unspecified convulsions Plan Patient is a 56-year-old lady admitted with alcohol withdrawal 1. Acute alcohol withdrawal - Patient has been admitted for treatment with phenobarb taper in addition to adjuvant medications including gabapentin, Bentyl, hydroxyzine and clonidine as needed for alcohol withdrawal symptoms. Patient was also placed on thiamine and folic acidConsultation placed to [facility] counseling services ? 07/19/2024;Patient seen still has significant tremors. Plan is to continue with current phenobarb taper ? 07/20/2024; phenobarb taper discontinued with patient being significantly lethargic. Plan was to monitor patient for an additional day with possible discharge in a.m. ? 07/21/2024 patient to follow-up at the [facility] for subsequent care 2. Complex partial seizures ?Patient is on Depakote did continue 3. Previous history of opioid dependence ? Patient has remained in remission for several years and is currently on Suboxone plan is to continue with home dose of equivalent 4. 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 Patient has residual phantom leg syndrome 5. Dyslipidemia ?Patient is on statin therapy, continued at home dose 6. Depression with anxiety ? Patient is on escitalopram did continue 7. Overweight with BMI of 29.8 -weight loss advised 8. DVT prophylaxis ?SC Lovenox 9. Hypokalemia -Corrected per protocol 10. Suspected cystitis ? Patient started on ceftriaxone urine culture sent follow-up on result ? Patient acute cystitis was confirmed on urinalysis patient however had requested to be discharged home. Prescription was written for Keflex Time spent in the patient's overall evaluation,decision-making process, review of diagnostic data, adjustment of management, discussion with other providers, nursing nursing and ancillary staff involved in patient's care documentation, 36 minutes Medications at Discharge Home Medications acetaminophen 500 mg tablet 1,000 mg PO BID PRN PRN Pain 05/20/18 ascorbic acid (vitamin C) 500 mg tablet (Vitamin C) 1,000 mg PO DAILY supplement 05/20/18 aspirin 81 mg tablet,delayed release 81 mg PO DAILY heart health 05/20/18 atorvastatin 40 mg tablet 40 mg PO DAILY 12/26/23 buprenorphine 8 mg-naloxone 2 mg sublingual tablet 2 tab sublingual DAILY 12/26/23 divalproex 500 mg tablet,delayed release 500 mg PO BID Seizure disorder #180 tabs 07/01/24 escitalopram oxalate 10 mg tablet 10 mg PO DAILY 07/17/24 cephalexin 500 mg capsule 500 mg PO TID #21 caps 07/21/24 folic acid 1 mg tablet 1 mg PO DAILY@0800 #30 tabs 07/21/24 thiamine HCl (vitamin B1) 100 mg tablet 100 mg PO DAILYCM #30 tabs 07/21/24 Physical Exam Narrative GENERAL: Patient in no apparent distress HEENT: Atraumatic; EYES; Anicteric, Normal Conjunctiva NECK; supple, normal thyroid, RESPIRATORY: Diminished to auscultation CARDIOVASCULAR: Regular S1 S2, GI: soft, normoactive bowel sounds, : No Renal angle tenderness; EXTREMITIES: No edema, no clubbing, MUSCULOSKELETAL: Left AKA NEURO: Awake; no lateralizing signs. SKIN: No Rash PSYCH; Flat affect Weight / BMI Weight Weight: 76.204 kg Body Mass Index (BMI) 29.7 ABG / Lab / Microbiology Data 07/17/24 12:10 07/17/24 12:10 Laboratory: Laboratory Results - last 24 hr 07/21/24 08:41: Urine Color Yellow, Urine Clarity Sl. Cloudy, Urine pH 6.0, Ur Specific [place] 1.015, Urine Protein 100 H, Urine Glucose (UA) Normal, Urine Ketones 5 H, Urine Occult Blood 250 H, Urine Nitrite Positive H, Urine Bilirubin Negative, Urine Urobilinogen 1 H, Ur Leukocyte Esterase 500 H, Urine RBC 10-25 SEEN, Urine WBC 25-50 SEEN, Ur Squamous Epith Cells 0-5 SEEN, Urine Bacteria 1+, Urine Mucus 0 SEEN D/C Instructions Discharge Diet: No restrictions Discharge Activity: Return to Normal Activity Call your doctor if you observe: Fever of 101 or Higher, Shortness of breath, Fainting spells and Chest pain DC O2, CPAP, BIPAP Needs Home O2 Discharge instructions: No Meaningful Use Info Meaningful Use Meaningful Use Diagnoses (Choose all that apply): None applicable Ischemic Stroke Statin Dosing Therapy Reference: STATIN DOSE THERAPY REFERENCE: * Patients > 75 years receive moderate or high dose statin therapy. * Patients 75 years or YOUNGER should receive HIGH intensity statin dose unless contraindicated. You will be required to document reason for non-treatment if statin daily dose does not meet guidelines. HIGH DOSE STATIN THERAPY DAILY Atorvastatin > than or = to 40 mg Rosuvastatin > than or = to 20 mg Amlodipine + Atorvastatin > than or = to 2.5/40 mg Ezetimibe + Simvastatin 10/80 mg Simvastatin 80mg Discharge Plan Admission Admit Date/Time: 07/17/24 12:05 Attending Provider: Marvin Garza Primary Care Provider: Issac Karimi Discharge Orders/Prescriptions Prescriptions: New thiamine HCl (vitamin B1) 100 mg Tablet 100 mg PO DAILYCM Qty: 30 0RF folic acid 1 mg Tablet 1 mg PO DAILY@0800 Qty: 30 0RF cephalexin 500 mg capsule 500 mg PO TID Qty: 21 0RF Continued divalproex 500 mg tablet,delayed release (DR/EC) 500 mg PO BID Qty: 180 3RF aspirin 81 MG tablet 81 mg PO DAILY acetaminophen 500 MG tablet 1,000 mg PO BID PRN PRN (Reason: Pain) ascorbic acid (vitamin C) [Vitamin C] 500 MG tablet 1,000 mg PO DAILY atorvastatin 40 mg tablet 40 mg PO DAILY buprenorphine-naloxone 8-2 mg tablet, sublingual 2 tab sublingual DAILY escitalopram oxalate 10 mg tablet 10 mg PO DAILY Referrals / Follow Up: Issac Karimi MD [Primary Care Provider] - Within 2 Weeks Disposition Disposition (needs filled in before D/C Order can be placed): Home, Self Care Charges/Coding Visit Charges Inpatient E&M: 55543 Disch Hosp >30min
[2024-07-21] MEDS: Ceftriaxone 1 GM Vial IM (11:46)
--- NOTE | 2024-07-21 13:53 | PHA.DC_ITS ---
Pharmacy [facility] has performed discharge medication reconciliation and counseling for this patient. 1. CEPHALEXIN 500MG PO TID X 7 DAYS 2. FOLIC ACID 1MG PO DAILYCM 3. THIAMINE 100MG PO DAILYCM The patient's discharge medication list was reviewed for discrepancies and discrepancies were resolved. The patient was counseled on the following discharge medications and changes in medications for homegoing were reviewed. The Reason for Use, instructions for use, and potential side effects were reviewed for all new medications. The patient's questions regarding all of their medications were answered. The patient was able to verbally demonstrate an understanding of their discharge medications. Medications at Discharge Home Medications acetaminophen 500 mg tablet 1,000 mg PO BID PRN PRN Pain 05/20/18 ascorbic acid (vitamin C) 500 mg tablet (Vitamin C) 1,000 mg PO DAILY supplement 05/20/18 aspirin 81 mg tablet,delayed release 81 mg PO DAILY heart health 05/20/18 atorvastatin 40 mg tablet 40 mg PO DAILY 12/26/23 buprenorphine 8 mg-naloxone 2 mg sublingual tablet 2 tab sublingual DAILY 12/26/23 divalproex 500 mg tablet,delayed release 500 mg PO BID Seizure disorder #180 tabs 07/01/24 escitalopram oxalate 10 mg tablet 10 mg PO DAILY 07/17/24 cephalexin 500 mg capsule 500 mg PO TID #21 caps 07/21/24 folic acid 1 mg tablet 1 mg PO DAILY@0800 #30 tabs 07/21/24 thiamine HCl (vitamin B1) 100 mg tablet 100 mg PO DAILYCM #30 tabs 07/21/24
[2024-07-21 14:27] VITALS: BP 121/67; PULSE 90; RESP 15; TEMP 37.7; O2SAT 97
== END 2024-07-21 15:06 | disposition home or self-care (01) | DRG 897 ==
LOC: ED 12:55 → MS3 13:05
PROVIDERS: Physician Assistant; Admitting Provider Internal Medicine; Emergency Provider Emergency Medicine; PCP Family Medicine; Visit Provider Internal Medicine
DX: F10.230 Alcohol dependence with withdrawal, uncomplicated (principal); G40.89 Other seizures; N30.00 Acute cystitis without hematuria; Z89.612 Acquired absence of left leg above knee; F11.21 Opioid dependence, in remission; E87.6 Hypokalemia; E78.5 Hyperlipidemia, unspecified; F41.8 Other specified anxiety disorders; R25.1 Tremor, unspecified; E66.3 Overweight; Z68.29 Body mass index [BMI] 29.0-29.9, adult; F41.1 Generalized anxiety disorder; Z79.899 Other long term (current) drug therapy
CPT/HCPCS: 80053; 80307; 81001; 82077; 85025; 87086; 87088; 99284; A4216

== ENCOUNTER 2024-07-24 18:20 | Emergency (ER) | payer OTHER, SELFPAY ==
[2024-07-24 18:21] VITALS: BP 189/160; PULSE 87; RESP 18; TEMP 36.2; O2SAT 97
[2024-07-24 18:34] VITALS: BMI 36.1
--- NOTE | 2024-07-24 18:40 | EX.ED.DYSGE1 ---
HPI History of Present Illness Chief Complaint: Edema [facility] Medical History Amputation of leg Seizures Substance abuse Depression Failure of outpatient treatment Opioid use disorder Generalized anxiety disorder Major depressive disorder, recurrent severe without psychotic features History of drug overdose Drug abuse Unilateral above knee amputation Hyperlipemia Seizures Hyperlipidemia Home Medications ?Medication ?Instructions ?Recorded ?Last Taken ?Type acetaminophen 500 mg tablet 1,000 mg PO BID PRN PRN Pain 05/20/18 06/23/19 History ascorbic acid (vitamin C) 500 mg 1,000 mg PO DAILY supplement 05/20/18 07/17/24 History tablet (Vitamin C) aspirin 81 mg tablet,delayed 81 mg PO DAILY heart health 05/20/18 07/17/24 History release atorvastatin 40 mg tablet 40 mg PO DAILY 12/26/23 07/17/24 History buprenorphine 8 mg-naloxone 2 mg 2 tab sublingual DAILY 12/26/23 07/17/24 History sublingual tablet divalproex 500 mg tablet,delayed 500 mg PO BID Seizure disorder 07/01/24 07/17/24 Rx release #180 tabs escitalopram oxalate 10 mg tablet 10 mg PO DAILY 07/17/24 07/17/24 History cephalexin 500 mg capsule 500 mg PO TID #21 caps 07/21/24 Unknown Rx folic acid 1 mg tablet 1 mg PO DAILY@0800 #30 tabs 07/21/24 Unknown Rx thiamine HCl (vitamin B1) 100 mg 100 mg PO DAILYCM #30 tabs 07/21/24 Unknown Rx tablet sulfamethoxazole 800 1 tab PO BID #14 tabs 07/24/24 Unknown Rx mg-trimethoprim 160 mg tablet (Bactrim DS) Allergy/AdvReac Type Severity Reaction Status Date / Time metoclopramide HCl (From Allergy shaking Verified 07/24/24 18:21 Reglan) prochlorperazine (From Allergy Hives Verified 07/24/24 18:21 Compazine) promethazine (From Phenergan) Allergy Hives Verified 07/24/24 18:21 Family History Mother Dementia CVA (cerebral vascular accident) Myocardial infarction Father Heart disease Hypercholesteremia Surgical History H/O wrist surgery Social History household members: none Smoking Status: Never smoker alcohol intake: current details: occasional glass of wine substance use type: does not use caffeine: No do you feel safe at home: Yes EXAM Physical Exam Const Vital Signs: 07/24/24 18:21 07/24/24 19:11 Temperature 97.2 F L 98.8 F Temperature Source Temporal Pulse Rate 87 83 Respiratory Rate 18 18 Blood Pressure 189/160 H 118/104 H Blood Pressure Mean 169 108 Pulse Ox 97 94 Oxygen Delivery Method Room Air MDM MDM MDM Narrative Medical decision making narrative: HISTORY OF PRESENT ILLNESS: 59-year-old female presents with lower extremity swelling. No she was recently admitted for alcohol detox and kidney infection. Patient denies chest pain shortness of breath. Patient denies active cancer, being bedridden for greater than 3 days, denies unilateral leg swelling, denies any varicose veins, denies any calf tenderness, denies tenderness along deep venous system. Denies major surgery within 12 weeks, recent paralysis, previous DVT. REVIEW OF SYSTEMS: Pertinent positives: Lower extremity swelling Pertinent negatives: Fever PHYSICAL EXAM: Nursing triage notes reviewed, Vital signs reviewed Constitutional: please see mdm HENT: MMM Eyes: Pupils equal round and reactive to light, Extraocular muscles intact Neck: No stridor, no JVD, full neck ROM Lungs: Clear to auscultation, No wheezing or rales. No increased work of breathing, no conversational dyspnea, no accessory muscle use, no nasal flaring. No respiratory distress noted Heart: Regular rate and rhythm, No murmurs, No rubs and No gallops, 2+ distal pulses (radial, femoral, posterior tibial) in all extremities Abdomen: Soft, there is no tenderness, rigidity, rebound or guarding, no obvious peritoneal signs, no palpable pulsatile abdominal masses, no auscultated abdominal bruit : No CVAT Extremities: 1+ edema in right lower extremity. Noted left leg amputation. Neuro: Intact sensation L1-S1 dermatomal distributions. Intact 5/5 strength in hip flexion (T12-L3). Knee extension (L2-L4). Ankle dorsiflexion (L4-L5). Ankle plantar flexion (S1). Great toe extension (L5). 2+ patellar and Achilles DTRs. Skin: Confluent erythema noted from the right ankle up to the mid calf, no fluctuance induration crepitus or bullae, it is warm and painful to touch. MEDICAL DECISION MAKING: Chief Complaint: Right lower extremity swelling External records reviewed: Reviewed prior imaging study Factors affecting care: obesity, Social determinants of health: Alcohol abuse History obtained from others: none Consults: none MDM Narrative: Patient was hemodynamically stable, afebrile and nontoxic-appearing. Exam most consistent with likely cellulitis. I considered the following differential diagnosis: Cellulitis, DVT Unfortunately we do not have DVT ultrasound available at this time. Gave antibiotics to treat MRSA. Wrote a prescription for an outpatient duplex ultrasound. We discussed prophylactically giving anticoagulation in the form of Lovenox however the patient noted she had history of intracranial hemorrhage in the past and as such I thought the risk of anticoagulation is likely higher than prevention of DVT in the clinical setting that is most consistent with cellulitis. We decided to forego prophylactic anticoagulation at this time and lieu of waiting for ultrasound results. The patient and/or family, caregivers express understanding. The patient and/or family, caregivers agrees with the plan. Shared decision making: I will have a discussion with the patient and or visitors regarding risk/benefits of further testing or admission. They will be made aware of of the risk/benefits inherent in this decision they will be given the opportunity to voice understanding. Total critical care time today provided was at least 0 minutes. This excludes separately billable procedures. Critical care time (if documented) is secondary to the patient having high probability of clinically significant/life threatening deterioration in the patient's condition which required my urgent intervention. Impression: 1. RLE swelling 2. Cellulitis Dispo: Discharge home with order for outpatient duplex ultrasound This note was generated with [employer] dictation software. It may contain incorrect words, spelling, and punctuation that were not noted in review of the chart prior to signing. Discharge Plan Triage Chief Complaint: Edema ED Provider: Levi Platt Dx/Rx/DC Orders Clinical Impression: Cellulitis, Redness and swelling of lower leg Instructions: Cellulitis Dc Prescriptions: New sulfamethoxazole-trimethoprim [Bactrim DS] 800-160 mg tablet 1 tab PO BID Qty: 14 0RF No Action divalproex 500 mg tablet,delayed release (DR/EC) 500 mg PO BID Qty: 180 3RF aspirin 81 MG tablet 81 mg PO DAILY acetaminophen 500 MG tablet 1,000 mg PO BID PRN PRN (Reason: Pain) ascorbic acid (vitamin C) [Vitamin C] 500 MG tablet 1,000 mg PO DAILY atorvastatin 40 mg tablet 40 mg PO DAILY buprenorphine-naloxone 8-2 mg tablet, sublingual 2 tab sublingual DAILY escitalopram oxalate 10 mg tablet 10 mg PO DAILY thiamine HCl (vitamin B1) 100 mg Tablet 100 mg PO DAILYCM Qty: 30 0RF folic acid 1 mg Tablet 1 mg PO DAILY@0800 Qty: 30 0RF cephalexin 500 mg capsule 500 mg PO TID Qty: 21 0RF Other Ambulatory Orders: Venous Duplex US, Unilateral (Stat) Facility: [facility] - Location: [facility] Ordered By: Dr. Levi Platt Primary Care Provider: Issac Karimi Referrals: Issac Karimi MD [Primary Care Provider] - Activity Restrictions/Additional Instructions: Thank you for trusting us with your care today! Your exam is most consistent with likely superficial skin infection called cellulitis. Given your recent hospitalization is also concerned about a DVT (blood clot) in your leg. We do not have ultrasound available at this hour however we do have ultrasound available tomorrow. A vascular will call you you to come and get your ultrasound done tomorrow. Please take Tylenol (2 pills, 650 mg), ibuprofen (2 pills, 400 mg) every 6 hours as needed for pain and fever control. Please take antibiotics as prescribed until course complete. Please return to the emergency department if your symptoms change or worsen. Please follow with your primary care physician for further outpatient evaluation and management. Print Language: Telugu Disposition Disposition: Home, Self Care Discharge Date/Time: 07/24/24 19:15
[2024-07-24] MEDS: Smz/Tmp Ds Tablet 1 TABLET PO (19:07)
[2024-07-24 19:11] VITALS: BP 118/104; PULSE 83; RESP 18; TEMP 37.1; O2SAT 94
== END 2024-07-24 19:15 | disposition home or self-care (01) ==
PROVIDERS: Emergency Provider Emergency Medicine; PCP Family Medicine; Referring Provider Emergency Medicine; Visit Provider Emergency Medicine
DX: L03.115 Cellulitis of right lower limb (principal); E66.9 Obesity, unspecified; F10.10 Alcohol abuse, uncomplicated; E78.5 Hyperlipidemia, unspecified; A49.02 Methicillin resistant Staphylococcus aureus infection, unspecified site; M79.89 Other specified soft tissue disorders
CPT/HCPCS: 99283

== ENCOUNTER → 2024-07-25 | Outpatient (CLI) | payer OTHER, SELFPAY ==
--- NOTE | 2024-07-25 11:50 | VDLE_ITS ---
Reason For Study: Swelling RLE RIGHT GSV is normal. CFV is compressible, spontaneous, phasic, competent and demonstrates normal augmentation. FV is compressible, spontaneous, phasic, competent and demonstrates normal augmentation. POP V is compressible, spontaneous, phasic, competent and demonstrates normal augmentation. T/P Trunk is compressible. PTV is compressible. RT PerV is compressible. Difficult to visualize Rt PeroV. Procedure This is a venous duplex using B-mode, color flow and spectral Doppler. Exam performed in department. A preliminary report was called and/or faxed to ED. VL/Venous Duplex US, Unilateral Interpretation Summary Deep veins of the right lower extremity are patent and compressible segmentally . There is no evidence of right lower extremity deep vein thrombosis. Valvular competence tasha ears intact within the proximal deep venous system on the right . The right great saphenous vein a ppears patent and compressible segmentally. Ordering Physician: Levi Platt Referring Physician: Issac Karimi Performed By: Rohini Rose, STEPHEN, RVT
== END | disposition home or self-care (01) ==
PROVIDERS: PCP Family Medicine; Referring Provider Emergency Medicine; Visit Provider Emergency Medicine
DX: M79.89 Other specified soft tissue disorders (principal)
CPT/HCPCS: 93971

== ENCOUNTER 2024-12-22 12:25 | Inpatient (IN) | payer OTHER, SELFPAY ==
[2024-12-22] VITALS (8 sets, daily range): BP systolic 102–154; BP diastolic 66–100; PULSE 86–107; RESP 11–20; TEMP 36.8–37.8; O2SAT 96–100; BMI 36.1
--- NOTE | 2024-12-22 13:39 | EKG12_ITS ---
Test Reason : Blood Pressure : */* mmHG Vent. Rate : 99 BPM Atrial Rate : 99 BPM P-R Int : 160 ms QRS Dur : 76 ms QT Int : 368 ms P-R-T Axes : 66 -31 -40 degrees QTcB Int : 472 ms Normal sinus rhythm Left axis deviation Low voltage QRS ST & T wave abnormality, consider anterior ischemia Prolonged QT Abnormal ECG Confirmed by Neil Oliveira ([id number]), videotape editor MARILYN HAMPTON ([id number]) on 12/23/2024 6:49:02 AM Referred By: Confirmed By: Neil Oliveira
[2024-12-22] MEDS: 0.9% Normal Saline (1000mL) 1,000 ML 1000 ML IV (13:45)
[2024-12-22] MEDS: Lorazepam 2 MG/ML WCH Syringe 1 MG IV ×2 (13:48→15:04)
--- NOTE | 2024-12-22 14:01 | EX.ED.DYSGE1 ---
HPI History of Present Illness Chief Complaint: Seizure Narrative Narrative: Chief complaint and HPI: Breakthrough seizure and requesting alcohol detox. 59-year-old female with past medical history of opiate abuse on chronic Suboxone, depression/anxiety, partial seizure disorder on Depakote, alcohol abuse presents for evaluation of breakthrough seizure and requesting alcohol detox. Patient states that she previously went through an alcohol detox program and was sober for 4 months. States she had a relapse approximately 1 month ago. Patient states that she stopped drinking for approximately 24 hours when she developed withdrawal symptoms such as nausea, shaking, diarrhea. Patient states that she could not take the withdrawal symptoms today therefore she had some alcohol this morning. States she then had a partial seizure at home which she could feel was coming on. Patient states she has not missed any of her Depakote. She denies any suicidal or homicidal ideation. Denies any visual or auditory hallucinations. Denies any fever, chills, chest pain, shortness of breath. Review of systems: See HPI Medications: As listed on the chart Allergies: As listed on the chart PFSH: Per chart Vital signs: As listed on the chart. Reviewed. Physical exam: Gen: A&O x3 Head: Normocephalic, atraumatic Eyes: No sclera icterus, conjunctiva clear, PERRL ENT: Dry mucous membranes Neck: Trachea midline, No JVD CV:Tachycardic, regular rhythm, no murmurs, no peripheral edema Resp: Lungs CTA BL, no w/r/c GI: Abd soft, non-distended, non-tender, no r/r/g Musc: Full ROM, no deformity, tremors Skin: Warm Neuro: Alert, oriented, grossly intact, sensation intact Psych: Cooperative, appropriate mood and affect [facility] Medical History Amputation of leg Seizures Substance abuse Depression Failure of outpatient treatment Opioid use disorder Generalized anxiety disorder Major depressive disorder, recurrent severe without psychotic features History of drug overdose Drug abuse Unilateral above knee amputation Hyperlipemia Seizures Hyperlipidemia Home Medications ?Medication ?Instructions ?Recorded ?Last Taken ?Type aspirin 81 mg tablet,delayed 81 mg PO DAILY heart health 05/20/18 07/17/24 History release atorvastatin 40 mg tablet 40 mg PO DAILY 12/26/23 07/17/24 History buprenorphine 8 mg-naloxone 2 mg 2 tab sublingual DAILY 12/26/23 07/17/24 History sublingual tablet divalproex 500 mg tablet,delayed 500 mg PO BID Seizure disorder 07/01/24 07/17/24 Rx release #180 tabs escitalopram oxalate 10 mg tablet 10 mg PO DAILY 07/17/24 07/17/24 History folic acid 1 mg tablet 1 mg PO DAILY@0800 #30 tabs 07/21/24 Unknown Rx Allergy/AdvReac Type Severity Reaction Status Date / Time metoclopramide HCl (From Allergy shaking Verified 12/22/24 12:28 Reglan) prochlorperazine (From Allergy Hives Verified 12/22/24 12:28 Compazine) promethazine (From Phenergan) Allergy Hives Verified 12/22/24 12:28 Family History Mother Dementia CVA (cerebral vascular accident) Myocardial infarction Father Heart disease Hypercholesteremia Surgical History H/O wrist surgery Social History household members: none Smoking Status: Never smoker alcohol intake: current details: occasional glass of wine substance use type: does not use caffeine: No do you feel safe at home: Yes EXAM Physical Exam Const Vital Signs: 12/22/24 12:26 12/22/24 14:05 12/22/24 14:17 Temperature 100.1 F H 98.7 F Temperature Source Oral Pulse Rate 107 H 103 H 97 Respiratory Rate 20 H 13 11 L Blood Pressure 154/100 H 141/90 H 137/84 H Blood Pressure Mean 118 107 101 Blood Pressure Source Blood Pressure Position Blood Pressure Location Pulse Ox 96 97 98 Oxygen Delivery Method Room Air Room Air 12/22/24 14:18 Temperature 98.7 F Temperature Source Oral Pulse Rate 101 H Respiratory Rate 12 Blood Pressure 137/84 H Blood Pressure Mean 101 Blood Pressure Source Monitor Blood Pressure Position Semi-Fowlers Blood Pressure Location Right Arm Pulse Ox 96 Oxygen Delivery Method Room Air MDM MDM MDM Narrative Medical decision making narrative: 59-year-old female with past medical history of opiate abuse on chronic Suboxone, depression/anxiety, partial seizure disorder on Depakote, alcohol abuse presents for evaluation of breakthrough seizure and requesting alcohol detox. Patient has been drinking alcohol for approximately 1 month. Stopped drinking for approximately 24 hours in which she developed withdrawal symptoms and breakthrough seizure. Differential diagnosis includes but is not limited to alcohol withdrawal seizure, breakthrough seizure, alcohol withdrawal, electrolyte abnormality, dehydration, JOE. Seizure precautions initiated. Patient placed on CIWA. NS bolus, thiamine, folic acid, Ativan ordered. Laboratory workup ordered. Plan will be for admission. CBC with mild leukocytosis of 12.4. No anemia. Platelets unremarkable. CMP shows anion gap of 16, likely secondary to her alcohol abuse. No significant electrolyte abnormality. No JOE. Patient has transaminitis with an AST of 40 and an ALT of 38 however these are improved from previous labs. Magnesium level unremarkable. Valproic acid level pending. Ethanol level negative. Urine drug screen yet to be obtained. Patient will warrant admission and another dose of Ativan due to her withdrawals. Patient updated of all results and the plan and confirmed understanding. Hospitalist accepted admission. EKG: Interpreted by me/EM physician: EKG shows normal sinus rhythm with nonspecific ST changes. She has a prolonged QTc of 472. Heart rate 99. Impression: 1. Breakthrough seizure versus alcohol withdrawal seizure 2. Requesting detox with history of alcohol abuse 3. History of partial seizures 4. Chronic transaminitis Lab Data Labs: Laboratory Results - last 24 hr 12/22/24 12/22/24 13:00 13:00 WBC 12.4 H RBC 4.13 L Hgb 13.9 Hct 40.0 MCV 96.9 MCH 33.7 H MCHC 34.8 RDW Std Deviation 47.1 H RDW Coeff of Adilia 13.2 Plt Count 239 MPV 10.2 Immature Gran % (Auto) 0.600 Neut % (Auto) 64.7 Lymph % (Auto) 22.0 [place] % (Auto) 11.1 H Eos % (Auto) 0.9 Baso % (Auto) 0.7 Absolute Neuts (auto) 8.0 H Absolute Lymphs (auto) 2.72 Nucleated RBC % 0 Sodium 140 Potassium 3.4 Chloride 100 Carbon Dioxide 23.8 Anion Gap 16 H BUN 12 Creatinine 0.63 L Estim Creat Clear Calc 102.72 Est GFR (MDRD) Non-Af 101 BUN/Creatinine Ratio 18.7 Glucose 140 H Calcium 9.8 Magnesium 1.6 1.5 Total Bilirubin 0.59 AST 40 H ALT 38 H Alkaline Phosphatase 94 Total Protein 6.9 Albumin 4.2 Globulin 2.7 Albumin/Globulin Ratio 1.5 Ethyl Alcohol < 10.1 Discharge Plan Triage Chief Complaint: Seizure Other Complaint: Substance Abuse ED Provider: Angel Page Dx/Rx/DC Orders Prescriptions: No Action divalproex 500 mg tablet,delayed release (DR/EC) 500 mg PO BID Qty: 180 3RF aspirin 81 MG tablet 81 mg PO DAILY atorvastatin 40 mg tablet 40 mg PO DAILY buprenorphine-naloxone 8-2 mg tablet, sublingual 2 tab sublingual DAILY escitalopram oxalate 10 mg tablet 10 mg PO DAILY folic acid 1 mg Tablet 1 mg PO DAILY@0800 Qty: 30 0RF Primary Care Provider: Issac Karimi Referrals: Issac Karimi MD [Primary Care Provider] - Print Language: [place]
[2024-12-22 14:03] LABS: Absolute Lymphocyte Count 2.72 X10^3/uL (0.83-4.51); Basophil# 0.09 X10^3/uL; Basophil% 0.7 % (0-1); Eosinophil# 0.11 X10^3/uL; Eosinophils% 0.9 % (0-5); Hemoglobin 13.9 g/dL (12.0-15.0); Lymphocyte # 2.72 X10^3/ul (0.83-4.51); Mean Corp Hgb Conc 34.8 g/dL (32-36); Mean Corpuscular Hgb 33.7 pg (27.0-32.0); Mean Corpuscular Volume 96.9 fL (81-99); Mean Platelet Vol. 10.2 fl (6.2-12.0); Monocyte# 1.37 X10^3/uL; Monocyte% 11.1 % (0-10); NRBC Flagged by Analyzer 0 % (0-5); Neutrophil # 8.01 X10^3/uL (2.7-7.7); Neutrophil % 64.7 % (47-70); Platelet Count 239 K/mm3 (150-450); RBC Distribution Width CV 13.2 % (11.6-14.6); RBC Distribution Width SD 47.1 fl (35.1-43.9); Red Blood Count 4.13 M/mm3 (4.2-5.4); White Blood Count 12.4 K/mm3 (4.4-11.0)
[2024-12-22] MEDS: Ondansetron 4 MG/2 ML Vial IV (14:11)
[2024-12-22] MEDS: Thiamine Hydrochloride 100 MG in 0.9% Normal Saline (50mL Bag) 50 ML 200 MG IV (14:26)
[2024-12-22 15:04] LABS: ALB/GLOB Ratio 1.5 RATIO (0.9-2.4); AST(SGOT) 40 U/L (<=31); Alanine Aminotransfer ALT/SGPT 38 U/L (<=34); Albumin, Serum 4.2 g/dL (3.4-4.8); Alkaline Phosphatase 94 U/L (35-104); Anion Gap 16 (5-15); BUN 12 mg/dL (4-19); BUN/Creat Ratio 18.7 RATIO (10-20); Calcium,Total 9.8 mg/dL (7.6-11.0); Carbon Dioxide 23.8 mmol/L (21.0-32.0); Chloride 100 mmol/L (98-108); Creatinine, Serum 0.63 mg/dL (0.70-1.20); EST Glomerular Filtration Rate 101 (>60); Estimated Creatinine Clearance 102.72 ml/min (50-250); Globulin 2.7 g/dL (2.2-4.2); Glucose 140 mg/dL (70-99); Magnesium 1.6 mg/dL (1.5-2.2); Potassium 3.4 mmol/L (3.3-5.1); Protein, Total 6.9 g/dL (5.9-8.4); Sodium Level 140 mmol/L (133-145); Total Bilirubin 0.59 mg/dL (0.00-1.30)
[2024-12-22 15:10] LABS: Magnesium 1.5 mg/dL (1.5-2.2)
[2024-12-22 15:16] LABS: Alcohol, Blood (Medical)-Serum < 10.1 mg/dL (<=10.0)
--- NOTE | 2024-12-22 15:17 | HP.PCM.HOS_ITS ---
HPI - General General Date of Admission: 12/22/24 Date of Service: 12/22/24 Chief Complaint: Alcohol detox HPI Narrative PARDEEP MARK, is a 59 F who presented to [facility] ED on 12/22/2024 for alcohol detox. Saw patient at bedside in the ED. She was previously here for alcohol detox back in July. She was sober for about 3 to 4 months but then relapsed about 1 month ago. She quit drinking cold turkey about 24 hours prior to admission. She quickly began to have withdrawal symptoms and then this morning she had what she thought was a breakthrough seizure, so she came in for alcohol detox. She had been given 2 dose of Ativan before I saw her and was sitting back comfortably in bed and conversing normally. She was very pleasant with conversation and had good insight into her current condition. No other acute concerns at this time. [facility] Medical History Amputation of leg Seizures Substance abuse Depression Failure of outpatient treatment Opioid use disorder Generalized anxiety disorder Major depressive disorder, recurrent severe without psychotic features History of drug overdose Drug abuse Unilateral above knee amputation Hyperlipemia Seizures Hyperlipidemia Home Medications ?Medication ?Instructions ?Recorded ?Last Taken ?Type aspirin 81 mg tablet,delayed 81 mg PO DAILY heart heal th 05/20/18 07/17/24 History release atorvastatin 40 mg tablet 40 mg PO DAILY 12/26/2311/05 History buprenorphine 8 mg-naloxone 2 mg 2 tab sublingual GEETA Y 12/26/23 07/17/24 History sublingual tablet divalproex 500 mg tablet,delayed 500 mg PO BID Seizure disorder 07/01/24 07/17/24 Rx release #180 tabs escitalopram oxalate 10 mg tablet 10 mg PO DAILY 07/1707/17/24 History folic acid 1 mg tablet 1 mg PO DAILY@0800 #30 tabs 07/21/24 Unknown Rx Allergy/AdvReac Type Severity Reaction Status Date / Time metoclopramide HCl (From Allergy shaking Verified 12/22/24 12:28 Reglan) prochlorperazine (From Allergy Hives Verified 12/22/24 12:28 Compazine) promethazine (From Phenergan) Allergy Hives Verified 12/22/24 12:28 Family History Mother Dementia CVA (cerebral vascular accident) Myocardial infarction Father Heart disease Hypercholesteremia Surgical History H/O wrist surgery Social History household members: none Smoking Status: Never smoker alcohol intake: current details: occasional glass of wine substance use type: does not use caffeine: No do you feel safe at home: Yes ROS Constitutional Constitutional: Denies chills, fatigue, fever(s) or weakness Eyes Eyes: Denies change in vision Cardiovascular Cardiovascular: Denies chest pain Respiratory/Chest Respiratory/Chest: Denies shortness of breath at rest Gastrointestinal Gastrointestinal: Denies abdominal pain, nausea or vomiting Genitourinary Genitourinary: Denies dysuria Musculoskeletal Musculoskeletal: Denies arthralgias or myalgias Neurologic Neurologic: Denies dizziness, focal weakness or headache(s) Vital Signs Vital Signs Vital Signs: 12/22/24 12:26 12/22/24 14:05 12/22/24 14:17 Temperature 100.1 F H 98.7 F Temperature Source Oral Pulse Rate 107 H 103 H 97 Respiratory Rate 20 H 13 11 L Blood Pressure 154/100 H 141/90 H 137/84 H Blood Pressure Mean 118 107 101 Blood Pressure Source Blood Pressure Position Blood Pressure Location Pulse Ox 96 97 98 Oxygen Delivery Method Room Air Room Air 12/22/24 14:18 Temperature 98.7 F Temperature Source Oral Pulse Rate 101 H Respiratory Rate 12 Blood Pressure 137/84 H Blood Pressure Mean 101 Blood Pressure Source Monitor Blood Pressure Position Semi-Fowlers Blood Pressure Location Right Arm Pulse Ox 96 Oxygen Delivery Method Room Air Weight Weight: 92.7 kg Body Mass Index (BMI) 36.1 Physical Exam Const alert, oriented x3 and no apparent distress Constitutional Narrative: Upper middle-aged female, class II obesity, mildly fatigued appearing but otherwise sitting back comfortably in bed, conversing normally, in no acute distress. General Appearance: cooperative and comfortable HEENT normocephalic, head/scalp atraumatic, hearing grossly normal bilaterally, nasal mucous membranes and turbinates normal and moist oral mucous membranes Eyes PERRL, EOMs intact bilaterally and conjunctivae normal Neck full ROM Chest inspection of chest normal Resp normal respiratory effort, normal air movement, no use of accessory muscles and clear to auscultation bilaterally Cardio regular rate, regular rhythm, no murmurs and peripheral pulses 2+ throughout GI normal to inspection, nondistended, normoactive bowel sounds, soft to palpation, non-tender and non-distended Back/Spine normal ROM Extremity Extremity Narrative: Left lower extremity amputation noted. Skin no rashes or lesions noted Psych mental status grossly normal Results Lab / Micro Data 12/22/24 13:00 12/22/24 13:00 Labs: Laboratory Results - last 24 hr 12/22/24 13:00: WBC 12.4 H, RBC 4.13 L, Hgb 13.9, Hct 40.0, MCV 96.9, MCH 33.7 H , MCHC 34.8, RDW Std Deviation 47.1 H, RDW Coeff of Adilia 13.2, Plt Count 239, MPV 10.2, Immature Gran % (Auto) 0.600, Neut % (Auto) 64.7, Lymph % (Auto) 22.0, M tina % (Auto) 11.1 H, Eos % (Auto) 0.9, Baso % (Auto) 0.7, Absolute Neuts (auto) 8.0 H, Absolute Lymphs (auto) 2.72, Nucleated RBC % 0, Sodium 140, Potassium 3.4, Chloride 100, Carbon Dioxide 23.8, Anion Gap 16 H, BUN 12, Creatinine 0.63 L, Estim Creat Clear Calc 102.72, Est GFR (MDRD) Non-Af 101, BUN/Creatinine Ratio 18.7, Glucose 140 H, Calcium 9.8, Magnesium 1.6 12/22/24 13:00: Magnesium 1.5, Total Bilirubin 0.59, AST 40 H, ALT 38 H, Alkaline Phosphatase 94, Total Protein 6.9, Albumin 4.2, Globulin 2.7, Albumin/Globulin Ratio 1.5, Ethyl Alcohol < 10.1 Assessment & Plan Assessment/Plan (1) Alcohol abuse: (2) Desire for detoxification: PLAN: Plan Patient is a 59-year-old female who presented to [facility] ED on 12/22/2024 for alcohol detox. 1. Alcohol abuse with withdrawal and concern for withdrawal seizure, desire for detoxification ? Admit under inpatient status to [facility]. Case management consulted. Had reported seizure prior to admission concerning for withdrawal seizure versus possibly related to complex partial seizure history noted below. Given 2 doses of Ativan in the ED with improved symptoms. Has been treated with phenobarbital taper in the past with good symptom control. Will treat again with phenobarbital taper and other as needed medications per alcohol withdrawal order set. Chronic medical conditions: ? Class II obesity: BMI 36 on admit. Encouraged weight loss. Complicates hospital course, care and prognosis. ? History of complex partial seizures: Valproic acid level normal on admit. Seems more likely that possible seizure as above was due to withdrawal. Continue home divalproex. ? Previous history of opiate dependence: Has been in remission now for several years. Continue home Suboxone. ? 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 Stable. ? Hyperlipidemia: Continue home statin. ? Depression/anxiety: Continue home escitalopram. DVT prophylaxis: Lovenox CODE STATUS: Full code, verify Expected disposition: Home, TBD Total clinical time spent by myself addressing the patient's medical issues, reviewing all the data, and collaborating with patient's care team: 55 minutes. Charges/Coding Visit Charges Inpatient E&M: 13399 Init Hosp L2
[2024-12-22] MEDS: Folic Acid 1 MG in 0.9% Normal Saline (50mL Bag) 50 ML 200 MG IV (15:20)
[2024-12-22 15:32] LABS: Valproic Acid (Depakene) Level 91 ug/mL (50-100)
[2024-12-22] MEDS: Potassium Chloride Oral Tablet 20 MEQ 40 MEQ PO (17:25)
[2024-12-22] MEDS: Magnesium Sulfate 4gm/100mL 4 GM/100 ML IV.SOLN. IV (17:26)
[2024-12-22] MEDS: Phenobarbital 32.4 MG Tablet PO ×2 (17:42→21:37)
[2024-12-22 18:38] LABS: Bacteria 0 SEEN /hpf (None Seen); Color, Urine Yellow (Yellow); Glucose, Dipstick Normal (Normal); Ketone-Dipstick 5 mg/dl (Negative); Leukocyte Esterase-Dipstick 100 /ul (Negative); Mucous, Urine 0 SEEN /hpf (<or=2+); Nitrite-Dipstick Negative (Negative); Occult Blood-Urine 50 /ul (Negative); Protein-Dipstick 30 mg/dl (Negative); Specific Gravity, Urine 1.015 (1.002-1.030); Urine Bilirubin Dipstick Negative (Negative); Urine Clarity Clear (Clear); Urine Urobilinogen Normal (Normal)
[2024-12-22 18:44] LABS: Amphetamine Urine NEGATIVE (<1000 ng/mL); Barbiturate Urine NEGATIVE (< 200 ng/mL); Benzodiazepine Urine NEGATIVE (< 200 ng/mL); Buprenorphine Urine PRESUMPTIVE POSITIVE (< 200 ng/mL); Cocaine Urine NEGATIVE (< 300 ng/mL); Fentanyl, Urine NEGATIVE; Methadone Urine NEGATIVE (< 300 ng/mL); Opiates Urine NEGATIVE (< 300 ng/mL); Oxycodone, Urine NEGATIVE (< 100 ng/mL); PCP Urine NEGATIVE (< 25 ng/mL); THC Urine NEGATIVE (< 50 ng/mL)
[2024-12-22 19:24] LABS: Red Blood Cells-Urine 5-10 SEEN /hpf (0-5); White Blood Cells 10-25 SEEN /hpf (0-5)
[2024-12-22 19:25] LABS: Squamous Epithelial Cells - UA 0-5 SEEN /hpf (5-10); Transitional Epithelial - Ur 0-5 SEEN /hpf (0-5)
[2024-12-22] MEDS: Divalproex Sodium 250 MG Tablet 500 MG PO (22:05)
[2024-12-22] MEDS: traZODone 100 MG Tablet PO (22:05)
[2024-12-22] MEDS: Atorvastatin Calcium 40 MG Tablet PO (22:05)
[2024-12-23] MEDS: Phenobarbital 32.4 MG Tablet PO ×6 (02:04→21:58)
[2024-12-23 04:00] VITALS: O2SAT 95
[2024-12-23 05:00] VITALS: BP 104/60; PULSE 77; RESP 15; TEMP 36.6; O2SAT 94
[2024-12-23 05:40] VITALS: BP 104/60; PULSE 80; RESP 15; TEMP 36.6; O2SAT 93
[2024-12-23 06:18] LABS: Hematocrit 37.1 % (37-47); Hemoglobin 12.4 g/dL (12.0-15.0); Mean Corp Hgb Conc 33.4 g/dL (32-36); Mean Corpuscular Hgb 33.7 pg (27.0-32.0); Mean Corpuscular Volume 100.8 fL (81-99); Platelet Count 191 K/mm3 (150-450); RBC Distribution Width CV 13.5 % (11.6-14.6); Red Blood Count 3.68 M/mm3 (4.2-5.4)
[2024-12-23 06:53] LABS: ALB/GLOB Ratio 1.5 RATIO (0.9-2.4); AST(SGOT) 26 U/L (<=31); Alanine Aminotransfer ALT/SGPT 26 U/L (<=34); Albumin, Serum 3.4 g/dL (3.4-4.8); Alkaline Phosphatase 76 U/L (35-104); Anion Gap 10 (5-15); BUN 13 mg/dL (4-19); BUN/Creat Ratio 21.4 RATIO (10-20); Calcium,Total 8.6 mg/dL (7.6-11.0); Carbon Dioxide 25.4 mmol/L (21.0-32.0); Chloride 106 mmol/L (98-108); EST Glomerular Filtration Rate 103 (>60); Estimated Creatinine Clearance 107.86 ml/min (50-250); Globulin 2.3 g/dL (2.2-4.2); Glucose 111 mg/dL (70-99); Potassium 3.9 mmol/L (3.3-5.1); Protein, Total 5.7 g/dL (5.9-8.4); Sodium Level 141 mmol/L (133-145); Total Bilirubin 0.61 mg/dL (0.00-1.30)
[2024-12-23 08:27] VITALS: BP 101/87; PULSE 74; RESP 18; TEMP 36.8; O2SAT 96
[2024-12-23] MEDS: Aspirin E.C. 81 MG Tablet PO (08:30)
[2024-12-23] MEDS: Thiamine Hydrochloride 100 MG Tablet PO (08:30)
[2024-12-23] MEDS: Folic Acid 1 MG Tablet PO (08:30)
--- NOTE | 2024-12-23 09:09 | NURSING ---
ATTEMPTED TO CALL [facility] BACK, NO ANSWER
--- NOTE | 2024-12-23 09:12 | NURSING ---
[facility] WHOM [facility] JOSE UPDATED. [facility] PATIENT ALREADY SEEING COUNSILOR AT [facility]. [facility] RAMP NAVIGATOR WELCOME TO CONTACT HER. [facility] PT AND FAMILY HAD A PLAN FOR PT TO DO IOP WITH WEEKLY SCREENINGS.
[2024-12-23] MEDS: Ondansetron 8 MG Tablet PO (09:15)
[2024-12-23] MEDS: Lorazepam 2 MG/ML WCH Syringe 1 MG IV (10:03)
[2024-12-23] MEDS: 0.9% Saline Lock 10 ML Syringe IV (10:04)
[2024-12-23] MEDS: Escitalopram Oxalate 10 MG Tablet PO (10:27)
[2024-12-23] MEDS: Divalproex Sodium 250 MG Tablet 500 MG PO ×2 (10:27→21:59)
[2024-12-23] MEDS: Enoxaparin 40 MG/0.4 ML Syringe SC (10:27)
[2024-12-23] MEDS: buprenorphine HCL 8 MG TAB.SUBL 16 MG SL (10:50)
--- NOTE | 2024-12-23 11:12 | PCM.PN.HOSP ---
Reason for Visit Reason for Visit: Diagnoses Alcohol abuse, uncomplicated (12/22/24) Subjective Subjective Saw patient at bedside this morning. Patient was slightly more somnolent this morning than yesterday likely due to the phenobarbital. She had just been given a dose of IV Ativan for breakthrough withdrawal symptoms as well. She reported feeling tired but denied any other symptoms currently. Objective Data Objective Data Vital Signs: Vital Signs Temp Pulse Resp BP Pulse Ox O2 Del Method 98.3 F 74 18 101/87 H 96 Room Air 12/23/24 08:27 12/23/24 08:27 12/23/24 08:27 12/23/24 08:27 12/23/24 08:27 12/23/24 08:27 Oxygen Delivery Method Room Air Weight: 92.7 kg Body Mass Index (BMI) 36.1 Intake & Output: Intake and Output for Last 24 Hours 12/21/24 12/22/24 12/23/24 23:59 23:59 23:59 Intake Total 1351.2 / 1851.2 700 / 700 Output Total 400 / 400 Balance 951.2 / 1451.2 700 / 700 Lab / Micro Data 12/23/24 05:45 12/23/24 05:45 Labs: Laboratory Results - last 24 hr 12/22/24 13:00: WBC 12.4 H, RBC 4.13 L, Hgb 13.9, Hct 40.0, MCV 96.9, MCH 33.7 H, MCHC 34.8, RDW Std Deviation 47.1 H, RDW Coeff of Adilia 13.2, Plt Count 239, MPV 10.2, Immature Gran % (Auto) 0.600, Neut % (Auto) 64.7, Lymph % (Auto) 22.0, [place] % (Auto) 11.1 H, Eos % (Auto) 0.9, Baso % (Auto) 0.7, Absolute Neuts (auto) 8.0 H, Absolute Lymphs (auto) 2.72, Nucleated RBC % 0, Sodium 140, Potassium 3.4, Chloride 100, Carbon Dioxide 23.8, Anion Gap 16 H, BUN 12, Creatinine 0.63 L, Estim Creat Clear Calc 102.72, Est GFR (MDRD) Non-Af 101, BUN/Creatinine Ratio 18.7, Glucose 140 H, Calcium 9.8, Magnesium 1.6 12/22/24 13:00: Magnesium 1.5, Total Bilirubin 0.59, AST 40 H, ALT 38 H, Alkaline Phosphatase 94, Total Protein 6.9, Albumin 4.2, Globulin 2.7, Albumin/Globulin Ratio 1.5, Valproic Acid 91, Ethyl Alcohol < 10.1 12/22/24 17:05: Urine Color Yellow, Urine Clarity Clear, Urine pH 6.0, Ur Specific [place] 1.015, Urine Protein 30 H, Urine Glucose (UA) Normal, Urine Ketones 5 H, Urine Occult Blood 50 H, Urine Nitrite Negative, Urine Bilirubin Negative, Urine Urobilinogen Normal, Ur Leukocyte Esterase 100 H, Urine RBC 5-10 SEEN, Urine WBC 10-25 SEEN, Ur Squamous Epith Cells 0-5 SEEN, Ur Transition Epith Cell 0-5 SEEN, Urine Bacteria 0 SEEN, Urine Mucus 0 SEEN, Urine Opiates Screen NEGATIVE, U Buprenorphine Qual PRESUMPTIVE POSITIVE, Ur Oxycodone Screen NEGATIVE, Urine Methadone Screen NEGATIVE, Urine Fentanyl Screen NEGATIVE, Ur Barbiturates Screen NEGATIVE, Ur Phencyclidine Scrn NEGATIVE, Ur Amphetamines Screen NEGATIVE, U Benzodiazepines Scrn NEGATIVE, Urine Cocaine Screen NEGATIVE, U Cannabinoids Screen NEGATIVE 12/23/24 05:45: WBC 7.0, RBC 3.68 L, Hgb 12.4, Hct 37.1, MCV 100.8 H, MCH 33.7 H, MCHC 33.4, RDW Std Deviation 50.0 H, RDW Coeff of Adilia 13.5, Plt Count 191, MPV 10.0, Sodium 141, Potassium 3.9, Chloride 106, Carbon Dioxide 25.4, Anion Gap 10, BUN 13, Creatinine 0.60 L, Estim Creat Clear Calc 107.86, Est GFR (MDRD) Non-Af 103, BUN/Creatinine Ratio 21.4 H, Glucose 111 H, Calcium 8.6, Total Bilirubin 0.61, AST 26, ALT 26, Alkaline Phosphatase 76, Total Protein 5.7 L, Albumin 3.4, Globulin 2.3, Albumin/Globulin Ratio 1.5 Physical Exam Const alert, oriented x3 and no apparent distress Constitutional Narrative: Upper middle-aged female, class II obesity, mildly fatigued appearing but otherwise sitting back comfortably in bed, conversing normally, in no acute distress. General Appearance: cooperative and comfortable HEENT normocephalic, head/scalp atraumatic, hearing grossly normal bilaterally, nasal mucous membranes and turbinates normal and moist oral mucous membranes Eyes PERRL, EOMs intact bilaterally and conjunctivae normal Neck full ROM Chest inspection of chest normal Resp normal respiratory effort, normal air movement, no use of accessory muscles and clear to auscultation bilaterally Cardio regular rate, regular rhythm, no murmurs and peripheral pulses 2+ throughout GI normal to inspection, nondistended, normoactive bowel sounds, soft to palpation, non-tender and non-distended Back/Spine normal ROM Extremity Extremity Narrative: Left lower extremity amputation noted. Skin no rashes or lesions noted Psych mental status grossly normal Assessment & Plan Assessment/Plan (1) Alcohol abuse: (2) Desire for detoxification: PLAN: Plan Patient is a 59-year-old female who presented to [facility] ED on 12/22/2024 for alcohol detox. 1. Alcohol abuse with withdrawal and concern for withdrawal seizure, desire for detoxification ? Case management and addiction medicine following. Had reported seizure prior to admission concerning for withdrawal seizure versus possibly related to complex partial seizure history noted below. Given 2 doses of Ativan in the ED with improved symptoms. Treating with phenobarbital taper and other as needed medications per alcohol withdrawal order set with good symptom control. Plan is for outpatient therapy after discharge. Chronic medical conditions: ? Class II obesity: BMI 36 on admit. Encouraged weight loss. Complicates hospital course, care and prognosis. ? History of complex partial seizures: Valproic acid level normal on admit. Seems more likely that possible seizure as above was due to withdrawal. Continue home divalproex. ? Previous history of opiate dependence: Has been in remission now for several years. Continue home Suboxone. ? 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 Stable. ? Hyperlipidemia: Continue home statin. ? Depression/anxiety: Continue home escitalopram. DVT prophylaxis: Lovenox CODE STATUS: Full code, verify Expected disposition: Home, 2-3 days Total clinical time spent by myself addressing the patient's medical issues, reviewing all the data, and collaborating with patient's care team: 25 minutes. Charges/Coding Visit Charges Inpatient E&M: 08847 [facility] Hosp L1
--- NOTE | 2024-12-23 11:30 | CASEMGMT ---
RN WANG made aware by RAMP coordinator that pt is potentially interested in applying for medicaid and has questions with this. TC to Amairani at [employer], left vm with information and request for her to meet with pt.
--- NOTE | 2024-12-23 12:02 | ADDICTION ---
Met with Pt to complete RAMP assessmnets and discuss d/c planning. Pt agreed that she would like to try to address her CK and MH in outpatient and if she begins to struggle in outpatient, she would be willing to enter residential treatment.
[2024-12-23 14:49] VITALS: BP 126/78; PULSE 87; RESP 18; TEMP 36.9; O2SAT 95
--- NOTE | 2024-12-23 16:21 | CASEMGMT ---
Social Work- SW collaborated with Amairani, [employer], who reports that pt does not qualify for CARLOS, as she is significantly over income. LAW [place]
[2024-12-23 21:53] VITALS: BP 121/66; PULSE 75; RESP 16; TEMP 36.4; O2SAT 93
[2024-12-23] MEDS: Atorvastatin Calcium 40 MG Tablet PO (21:59)
[2024-12-24] MEDS: Phenobarbital 32.4 MG Tablet PO ×6 (01:43→22:02)
[2024-12-24 03:08] VITALS: BP 107/56; PULSE 84; RESP 16; TEMP 36.6; O2SAT 98
[2024-12-24] MEDS: Gabapentin 300 MG Capsule PO ×2 (04:05→14:12)
[2024-12-24 09:08] VITALS: BP 130/69; PULSE 99; RESP 18; TEMP 36.8; O2SAT 96
--- NOTE | 2024-12-24 10:06 | PCM.PN.HOSP ---
Reason for Visit Reason for Visit: Diagnoses Alcohol abuse, uncomplicated (12/22/24) Subjective Subjective Saw patient at bedside this morning. Patient was slightly diaphoretic and shaky appearing. Noted that she had not taken any of the as needed Ativan and I recommended that she asked the nursing staff for a dose of this now. She was agreeable to this. No other new concerns today. Objective Data Objective Data Vital Signs: Vital Signs Temp Pulse Resp BP Pulse Ox O2 Del Method 97.9 F 84 16 107/56 L 98 Room Air 12/24/24 03:08 12/24/24 03:08 12/24/24 03:08 12/24/24 03:08 12/24/24 03:08 12/24/24 03:08 Oxygen Delivery Method Room Air Weight: 92.7 kg Body Mass Index (BMI) 36.1 Intake & Output: Intake and Output for Last 24 Hours 12/22/24 12/23/24 12/24/24 23:59 23:59 23:59 Intake Total 1351.2 / 1851.2 1680 / 1680 300 / 300 Output Total 400 / 400 Balance 951.2 / 1451.2 1680 / 1680 300 / 300 Lab / Micro Data 12/23/24 05:45 12/23/24 05:45 Physical Exam Const alert and oriented x3 Constitutional Narrative: Upper middle-aged female, class II obesity, mildly diaphoretic and shaky appearing due to withdrawal, otherwise making appropriate eye contact and answering questions appropriately. General Appearance: cooperative HEENT normocephalic, head/scalp atraumatic, hearing grossly normal bilaterally, nasal mucous membranes and turbinates normal and moist oral mucous membranes Eyes PERRL, EOMs intact bilaterally and conjunctivae normal Neck full ROM Chest inspection of chest normal Resp normal respiratory effort, normal air movement, no use of accessory muscles and clear to auscultation bilaterally Cardio regular rate, regular rhythm, no murmurs and peripheral pulses 2+ throughout GI normal to inspection, nondistended, normoactive bowel sounds, soft to palpation, non-tender and non-distended Back/Spine normal ROM Extremity Extremity Narrative: Left lower extremity amputation noted. Skin no rashes or lesions noted Psych mental status grossly normal Assessment & Plan Assessment/Plan (1) Alcohol abuse: (2) Desire for detoxification: PLAN: Plan Patient is a 59-year-old female who presented to [facility] ED on 12/22/2024 for alcohol detox. 1. Alcohol abuse with withdrawal and concern for withdrawal seizure, desire for detoxification ? Case management following. Had reported seizure prior to admission concerning for withdrawal seizure versus possibly related to complex partial seizure history noted below. Given 2 doses of Ativan in the ED with improved symptoms. Treating with phenobarbital taper and IV Ativan as needed as well as other as needed medications per alcohol withdrawal order set with adequate symptom control. Plan is for outpatient therapy after discharge. Chronic medical conditions: ? Class II obesity: BMI 36 on admit. Encouraged weight loss. Complicates hospital course, care and prognosis. ? History of complex partial seizures: Valproic acid level normal on admit. Seems more likely that possible seizure as above was due to withdrawal. Continue home divalproex. ? Previous history of opiate dependence: Has been in remission now for several years. Continue home Suboxone. ? 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 Stable. ? Hyperlipidemia: Continue home statin. ? Depression/anxiety: Continue home escitalopram. DVT prophylaxis: Lovenox CODE STATUS: Full code, verify Expected disposition: Home, 2 to 3 days Total clinical time spent by myself addressing the patient's medical issues, reviewing all the data, and collaborating with patient's care team: 25 minutes. Charges/Coding Visit Charges Inpatient E&M: 41678 [facility] Hosp L1
[2024-12-24] MEDS: Aspirin E.C. 81 MG Tablet PO (10:21)
[2024-12-24] MEDS: Thiamine Hydrochloride 100 MG Tablet PO (10:21)
[2024-12-24] MEDS: Folic Acid 1 MG Tablet PO (10:21)
[2024-12-24] MEDS: Enoxaparin 40 MG/0.4 ML Syringe SC (10:22)
[2024-12-24] MEDS: Divalproex Sodium 250 MG Tablet 500 MG PO ×2 (10:22→22:01)
[2024-12-24] MEDS: Escitalopram Oxalate 10 MG Tablet PO (10:22)
[2024-12-24] MEDS: buprenorphine HCL 8 MG TAB.SUBL 16 MG SL (10:32)
[2024-12-24 15:00] VITALS: BP 109/75; PULSE 114; RESP 18; TEMP 36.7; O2SAT 98
--- NOTE | 2024-12-24 15:41 | EX.EMERGENCY ---
EMERGENCY DOCUMENTATION INITIATED: Date: 12/23/24 Time: 1400 Patient experienced absent seizure while on BSC. Patient was staring to left and not responding when nurse asked her a question. After a couple seconds, patient able to stutter out word seizure and less than a minute later, patient moves head and asks where she is. Once she is reoriented, patient discussed she gets absent seizures that last only a minute and then recovers, but that she has not had one in year. She states a very anxious feeling is her aura and that her heart races. HR at this time 114. She feels able to transfer back to bed after a couple minutes and transfers with no issues. Dr. Dennis made aware and NNO at this time.
[2024-12-24 21:57] VITALS: BP 119/62; PULSE 83; RESP 16; TEMP 36.5; O2SAT 95
[2024-12-24] MEDS: 0.9% Saline Lock 10 ML Syringe IV (22:02)
[2024-12-24] MEDS: Atorvastatin Calcium 40 MG Tablet PO (22:02)
[2024-12-25 01:48] VITALS: BP 105/62; PULSE 79; RESP 16; TEMP 36.6; O2SAT 96
[2024-12-25] MEDS: Phenobarbital 32.4 MG Tablet PO ×3 (01:51→22:49)
[2024-12-25 07:05] VITALS: BP 107/70; PULSE 74; RESP 18; TEMP 36.7; O2SAT 95
[2024-12-25] MEDS: hydrOXYzine PAM 25 MG Capsule 50 MG PO (07:09)
[2024-12-25] MEDS: buprenorphine HCL 8 MG TAB.SUBL 16 MG SL (09:26)
[2024-12-25] MEDS: Divalproex Sodium 250 MG Tablet 500 MG PO ×2 (09:37→22:50)
[2024-12-25] MEDS: Escitalopram Oxalate 10 MG Tablet PO (09:38)
[2024-12-25] MEDS: Aspirin E.C. 81 MG Tablet PO (09:38)
--- NOTE | 2024-12-25 09:38 | PN.HOSP_ITS ---
Reason for Visit Reason for Visit: Diagnoses Alcohol abuse, uncomplicated (12/22/24) Subjective Subjective Saw patient at bedside this morning. Patient appeared slightly more comfortable today than yesterday but continues to have withdrawal symptoms. No other new concerns today. Objective Data Objective Data Vital Signs: Vital Signs Temp Pulse Resp BP Pulse Ox O2 Del Method 98.0 F 74 18 107/70 95 Room Air 12/25/24 07:05 12/25/24 07:05 12/25/24 07:05 12/25/24 07:05 12/25/24 07:05 12/25/24 07:05 Oxygen Delivery Method Room Air Weight: 92.7 kg Body Mass Index (BMI) 36.1 Intake & Output: Intake and Output for Last 24 Hours 12/23/24 12/24/24 12/25/24 23:59 23:59 23:59 Intake Total 1680 / 1680 540 / 540 Output Total 600 / 600 Balance 1680 / 1680 -60 / -60 Lab / Micro Data 12/23/24 05:45 12/23/24 05:45 Physical Exam Const alert and oriented x3 Constitutional Narrative: Upper middle-aged female, class II obesity, mildly diaphoretic and shaky appearing due to withdrawal, otherwise making appropriate eye contact and answering questions appropriately. General Appearance: cooperative HEENT normocephalic, head/scalp atraumatic, hearing grossly normal bilaterally, nasal mucous membranes and turbinates normal and moist oral mucous membranes Eyes PERRL, EOMs intact bilaterally and conjunctivae normal Neck full ROM Chest inspection of chest normal Resp normal respiratory effort, normal air movement, no use of accessory muscles and clear to auscultation bilaterally Cardio regular rate, regular rhythm, no murmurs and peripheral pulses 2+ throughout GI normal to inspection, nondistended, normoactive bowel sounds, soft to palpation, non-tender and non-distended Back/Spine normal ROM Extremity Extremity Narrative: Left lower extremity amputation noted. Skin no rashes or lesions noted Psych mental status grossly normal Assessment & Plan Assessment/Plan (1) Alcohol abuse: (2) Desire for detoxification: PLAN: Plan Patient is a 59-year-old female who presented to [facility] ED on 12/22/2024 for alcohol detox. 1. Alcohol abuse with withdrawal and concern for withdrawal seizure, desire for detoxification ? Case management following. Had reported seizure prior to admission concerning for withdrawal seizure versus possibly related to complex partial seizure history noted below. Given 2 doses of Ativan in the ED with improved symptoms. Treating with phenobarbital taper and IV Ativan as needed as well as other as needed medications per alcohol withdrawal order set with adequate symptom control. Plan is for outpatient therapy after discharge. Chronic medical conditions: ? Class II obesity: BMI 36 on admit. Encouraged weight loss. Complicates hospital course, care and prognosis. ? History of complex partial seizures: Valproic acid level normal on admit. Seems more likely that possible seizure as above was due to withdrawal. Continue home divalproex. ? Previous history of opiate dependence: Has been in remission now for several years. Continue home Suboxone. ? 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 Stable. ? Hyperlipidemia: Continue home statin. ? Depression/anxiety: Continue home escitalopram. DVT prophylaxis: Lovenox CODE STATUS: Full code, verify Expected disposition: Home, 2 to 3 days Total clinical time spent by myself addressing the patient's medical issues, reviewing all the data, and collaborating with patient's care team: 25 minutes. Charges/Coding Visit Charges Inpatient E&M: 64125 [facility] Hosp L1
[2024-12-25] MEDS: Enoxaparin 40 MG/0.4 ML Syringe SC (09:39)
[2024-12-25] MEDS: Folic Acid 1 MG Tablet PO (09:39)
[2024-12-25] MEDS: Thiamine Hydrochloride 100 MG Tablet PO (09:39)
[2024-12-25 09:40] VITALS: BP 112/66; PULSE 56; RESP 18; TEMP 36.8; O2SAT 98
[2024-12-25 10:00] VITALS: RESP 18
[2024-12-25] MEDS: 0.9% Saline Lock 10 ML Syringe IV ×2 (10:40→22:57)
[2024-12-25] MEDS: Lorazepam 2 MG/ML WCH Syringe 1 MG IV (10:40)
[2024-12-25 16:12] VITALS: BP 118/73; PULSE 82; RESP 18; TEMP 36.9; O2SAT 95
[2024-12-25 22:40] VITALS: BP 99/72; PULSE 89; RESP 20; TEMP 37.2; O2SAT 94
[2024-12-25] MEDS: Atorvastatin Calcium 40 MG Tablet PO (22:50)
[2024-12-26 03:04] VITALS: BP 111/74; PULSE 81; RESP 20; TEMP 36.7; O2SAT 95
[2024-12-26] MEDS: Phenobarbital 32.4 MG Tablet PO ×4 (03:06→22:57)
[2024-12-26 04:53] VITALS: BP 93/79; PULSE 104; RESP 20; TEMP 36.7; O2SAT 97
[2024-12-26 07:08] LABS: Hematocrit 36.8 % (37-47); Hemoglobin 12.3 g/dL (12.0-15.0); Mean Corp Hgb Conc 33.4 g/dL (32-36); Mean Corpuscular Hgb 33.6 pg (27.0-32.0); Mean Corpuscular Volume 100.5 fL (81-99); Mean Platelet Vol. 10.4 fl (6.2-12.0); Platelet Count 147 K/mm3 (150-450); RBC Distribution Width CV 13.2 % (11.6-14.6); RBC Distribution Width SD 48.6 fl (35.1-43.9); Red Blood Count 3.66 M/mm3 (4.2-5.4); White Blood Count 8.4 K/mm3 (4.4-11.0)
[2024-12-26 07:27] LABS: Anion Gap 9 (5-15); BUN 8 mg/dL (4-19); BUN/Creat Ratio 15.1 RATIO (10-20); Calcium,Total 8.4 mg/dL (7.6-11.0); Carbon Dioxide 28.3 mmol/L (21.0-32.0); Chloride 104 mmol/L (98-108); Creatinine, Serum 0.56 mg/dL (0.70-1.20); EST Glomerular Filtration Rate 104 (>60); Estimated Creatinine Clearance 115.56 ml/min (50-250); Glucose 103 mg/dL (70-99); Potassium 3.6 mmol/L (3.3-5.1); Sodium Level 142 mmol/L (133-145)
[2024-12-26] MEDS: Folic Acid 1 MG Tablet PO (08:41)
[2024-12-26] MEDS: Thiamine Hydrochloride 100 MG Tablet PO (08:41)
[2024-12-26] MEDS: Aspirin E.C. 81 MG Tablet PO (08:41)
[2024-12-26 09:00] VITALS: BP 108/67; PULSE 91; RESP 18; TEMP 37.2; O2SAT 93
--- NOTE | 2024-12-26 10:40 | PN.HOSP_ITS ---
Reason for Visit Reason for Visit: Diagnoses Alcohol abuse, uncomplicated (12/22/24) Subjective Subjective Saw patient at bedside this morning. Patient appeared similar today to yesterday. Very mild withdrawal symptoms noted. No other new concerns this morning. Objective Data Objective Data Vital Signs: Vital Signs Temp Pulse Resp BP Pulse Ox O2 Del Method 98.1 F 104 H 20 H 93/79 97 Room Air 12/26/24 04:53 12/26/24 04:53 12/26/24 04:53 12/26/24 04:53 12/26/24 04:53 12/26/24 07:11 Oxygen Delivery Method Room Air Weight: 92.7 kg Body Mass Index (BMI) 36.1 Intake & Output: Intake and Output for Last 24 Hours 12/24/24 12/25/24 12/26/24 23:59 23:59 23:59 Intake Total 540 / 540 700 / 700 400 / 400 Output Total 600 / 600 300 / 300 Balance -60 / -60 700 / 700 100 / 100 Lab / Micro Data 12/26/24 06:03 12/26/24 06:03 Labs: Laboratory Results - last 24 hr 12/26/24 06:03: WBC 8.4, RBC 3.66 L, Hgb 12.3, Hct 36.8 L, MCV 100.5 H, MCH 33.6 H, MCHC 33.4, RDW Std Deviation 48.6 H, RDW Coeff of Adilia 13.2, Plt Count 147 L, MPV 10.4, Sodium 142, Potassium 3.6, Chloride 104, Carbon Dioxide 28.3, Anion Gap 9, BUN 8, Creatinine 0.56 L, Estim Creat Clear Calc 115.56, Est GFR (MDRD) Non-Af 104, BUN/Creatinine Ratio 15.1, Glucose 103 H, Calcium 8.4 Physical Exam Const alert and oriented x3 Constitutional Narrative: Upper middle-aged female, class II obesity, fatigued appearing but otherwise making appropriate eye contact and answering questions appropriately. General Appearance: cooperative HEENT normocephalic, head/scalp atraumatic, hearing grossly normal bilaterally, nasal mucous membranes and turbinates normal and moist oral mucous membranes Eyes PERRL, EOMs intact bilaterally and conjunctivae normal Neck full ROM Chest inspection of chest normal Resp normal respiratory effort, normal air movement, no use of accessory muscles and clear to auscultation bilaterally Cardio regular rate, regular rhythm, no murmurs and peripheral pulses 2+ throughout GI normal to inspection, nondistended, normoactive bowel sounds, soft to palpation, non-tender and non-distended Back/Spine normal ROM Extremity Extremity Narrative: Left lower extremity amputation noted. Skin no rashes or lesions noted Psych mental status grossly normal Assessment & Plan Assessment/Plan (1) Alcohol abuse: (2) Desire for detoxification: PLAN: Plan Patient is a 59-year-old female who presented to [facility] ED on 12/22/2024 for alcohol detox. 1. Alcohol abuse with withdrawal and concern for withdrawal seizure, desire for detoxification ? Case management following. Had reported seizure prior to admission concerning for withdrawal seizure versus possibly related to complex partial seizure history noted below. Given 2 doses of Ativan in the ED with improved symptoms. Treating with phenobarbital taper and as needed medications per alcohol withdrawal order set with adequate symptom control. Planning for discharge home tomorrow; follow-up with addiction medicine on patient's plans for therapy after discharge. Chronic medical conditions: ? Class II obesity: BMI 36 on admit. Encouraged weight loss. Complicates hospital course, care and prognosis. ? History of complex partial seizures: Valproic acid level normal on admit. Seems more likely that possible seizure as above was due to withdrawal. Continue home divalproex. ? Previous history of opiate dependence: Has been in remission now for several years. Continue home Suboxone. ? 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 Stable. ? Hyperlipidemia: Continue home statin. ? Depression/anxiety: Continue home escitalopram. DVT prophylaxis: Lovenox CODE STATUS: Full code, verified Expected disposition: Home, 1 to 2 days Total clinical time spent by myself addressing the patient's medical issues, reviewing all the data, and collaborating with patient's care team: 25 minutes. Charges/Coding Visit Charges Inpatient E&M: 87182 [facility] Hosp L1
[2024-12-26] MEDS: buprenorphine HCL 8 MG TAB.SUBL 16 MG SL (10:58)
[2024-12-26] MEDS: Divalproex Sodium 250 MG Tablet 500 MG PO ×2 (11:04→22:57)
[2024-12-26] MEDS: Escitalopram Oxalate 10 MG Tablet PO (11:05)
[2024-12-26] MEDS: Enoxaparin 40 MG/0.4 ML Syringe SC (11:05)
[2024-12-26] MEDS: Polyethylene Glycol 3350 17 GM PACKET PO (13:26)
[2024-12-26 17:00] VITALS: BP 113/74; PULSE 97; RESP 18; TEMP 36.9; O2SAT 94
[2024-12-26 22:51] VITALS: BP 112/77; PULSE 85; RESP 16; TEMP 37; O2SAT 93
[2024-12-26] MEDS: Atorvastatin Calcium 40 MG Tablet PO (22:57)
[2024-12-26] MEDS: 0.9% Saline Lock 10 ML Syringe IV (22:57)
[2024-12-27 06:55] VITALS: BP 109/71; PULSE 107; RESP 16; TEMP 36.9; O2SAT 94
--- NOTE | 2024-12-27 08:04 | PCM.DC ---
Discharge Instructions Diet Discharge Diet: Low fat / Low cholesterol DC O2, CPAP, BIPAP needs Home O2 Discharge instructions: No Dressing / Incision Discharge Activity: Return to Normal Activity Dressing / Incision Call your doctor if you observe: Fever of 101 or Higher, Shortness of breath, Dizziness, Fainting spells, Swelling in the ankles, Chest pain and Increased palpitations (irregular heartbeat) Follow Up Care Test Results: Test results from this visit will be discussed in further detail at your follow-up appointment, if applicable. Discharge Plan Admission Admit Date/Time: 12/22/24 15:19 Attending Provider: Alfredo Sanchez Primary Care Provider: Issac Karimi Consulting Providers: Jt Morales Discharge Orders/Prescriptions Prescriptions: Continued divalproex 500 mg tablet,delayed release (DR/EC) 500 mg PO BID Qty: 180 3RF aspirin 81 MG tablet 81 mg PO DAILY atorvastatin 40 mg tablet 40 mg PO DAILY buprenorphine-naloxone 8-2 mg tablet, sublingual 2 tab sublingual DAILY escitalopram oxalate 10 mg tablet 10 mg PO DAILY folic acid 1 mg Tablet 1 mg PO DAILY@0800 Qty: 30 0RF Referrals / Follow Up: Issac Karimi MD [Primary Care Provider] - Within 1 Week Disposition Disposition (needs filled in before D/C Order can be placed): Home, Self Care
[2024-12-27] MEDS: Divalproex Sodium 250 MG Tablet 500 MG PO (08:06)
[2024-12-27] MEDS: Enoxaparin 40 MG/0.4 ML Syringe SC (08:07)
[2024-12-27] MEDS: Escitalopram Oxalate 10 MG Tablet PO (08:08)
[2024-12-27] MEDS: Aspirin E.C. 81 MG Tablet PO (08:08)
[2024-12-27] MEDS: Polyethylene Glycol 3350 17 GM PACKET PO (08:08)
[2024-12-27] MEDS: Folic Acid 1 MG Tablet PO (08:08)
[2024-12-27] MEDS: Thiamine Hydrochloride 100 MG Tablet PO (08:08)
[2024-12-27] MEDS: buprenorphine HCL 8 MG TAB.SUBL 16 MG SL (08:12)
[2024-12-27 10:21] VITALS: BP 102/74; PULSE 78; RESP 16; TEMP 37.2; O2SAT 94
--- NOTE | 2024-12-27 10:39 | PCM.DC.SUM ---
Providers Date of Admission: 12/22/24 Primary Care Physician: Dr. Issac Karimi MD Reason For Visit: ALCOHOL DETOX Diagnosis Discharge Diagnosis (1) Alcohol abuse: Status: Acute Code(s): F10.10 - Alcohol abuse, uncomplicated (2) Desire for detoxification: Status: Acute Medications at Discharge Home Medications aspirin 81 mg tablet,delayed release 81 mg PO DAILY heart health 05/20/18 atorvastatin 40 mg tablet 40 mg PO DAILY 12/26/23 buprenorphine 8 mg-naloxone 2 mg sublingual tablet 2 tab sublingual DAILY 12/26/23 divalproex 500 mg tablet,delayed release 500 mg PO BID Seizure disorder #180 tabs 07/01/24 escitalopram oxalate 10 mg tablet 10 mg PO DAILY 07/17/24 folic acid 1 mg tablet 1 mg PO DAILY@0800 #30 tabs 07/21/24 Hospital Course Operations None Procedures None Summary of Care Provided Minutes Spent on Discharge: 33 Hospital Course: Per HPI: PARDEEP MARK, is a 59 F who presented to [facility] ED on 12/22/2024 for alcohol detox. Saw patient at bedside in the ED. She was previously here for alcohol detox back in July. She was sober for about 3 to 4 months but then relapsed about 1 month ago. She quit drinking cold turkey about 24 hours prior to admission. She quickly began to have withdrawal symptoms and then this morning she had what she thought was a breakthrough seizure, so she came in for alcohol detox. She had been given 2 dose of Ativan before I saw her and was sitting back comfortably in bed and conversing normally. She was very pleasant with conversation and had good insight into her current condition. No other acute concerns at this time. Hospital Course: 1. Alcohol withdrawal with possible withdrawal seizure?59-year-old with a history of alcohol abuse as well as previous stroke and left lower extremity amputation presented to the hospital requesting detox from alcohol. She had been sober for 3 to 4 months prior to this relapse. She has outpatient support that she would like to return to and today her CIWA score was at 2. She did complete the phenobarbital taper which she tolerated well. I discussed with her the plan for discharge and she expressed understanding of the risks and benefits of going home and would still like to go home today. She does have a history of complex partial seizures and is on seizure medications for this. She would need to follow-up with her PCP in 3 to 5 days on discharge. She does have chronic neurological changes from her previous stroke but does cause some speech alterations. 2. 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 Her home medications were continued were appropriate Physical Exam Narrative General: Alert, Oriented x3, Cooperative, No apparent distress HEENT: Atraumatic, PERRLA, EOMI, Normocephalic Oral: Moist Mucosa Neck: Supple, No JVD Lungs: Diminished, Normal air movement, No rhonchi, No wheeze, No rales Cardiovascular: Regular rate, Regular Rhythm, Normal S1, Normal S2, No murmurs Abdomen: Soft, Non Tender, Non-Distended, No Hepato-splenomegaly Extremities: No edema, Capillary Refill Less than 3 Seconds Skin: No rashes, No breakdown Musculoskeletal: No Tenderness to Palpation of Joints or Extremities, left lower extremity amputation Neurological: Baseline neurological changes with speech abnormality, moves all extremities Psych/Mental Status: Normal Affect, Appropriate Weight / BMI Weight Weight: 204 lb 5.896 oz Body Mass Index (BMI) 36.1 ABG / Lab / Microbiology Data 12/26/24 06:03 12/26/24 06:03 D/C Instructions Discharge Diet: Low fat / Low cholesterol Call your doctor if you observe: Fever of 101 or Higher, Shortness of breath, Dizziness, Fainting spells, Swelling in the ankles, Chest pain and Increased palpitations (irregular heartbeat) DC O2, CPAP, BIPAP Needs Home O2 Discharge instructions: No Meaningful Use Info Meaningful Use Meaningful Use Diagnoses (Choose all that apply): None applicable Ischemic Stroke Statin Dosing Therapy Reference: STATIN DOSE THERAPY REFERENCE: * Patients > 75 years receive moderate or high dose statin therapy. * Patients 75 years or YOUNGER should receive HIGH intensity statin dose unless contraindicated. You will be required to document reason for non-treatment if statin daily dose does not meet guidelines. HIGH DOSE STATIN THERAPY DAILY Atorvastatin > than or = to 40 mg Rosuvastatin > than or = to 20 mg Amlodipine + Atorvastatin > than or = to 2.5/40 mg Ezetimibe + Simvastatin 10/80 mg Simvastatin 80mg Discharge Plan Admission Admit Date/Time: 12/22/24 15:19 Attending Provider: Alfredo Sanchez Primary Care Provider: Issac Karimi Consulting Providers: Jt Morales Discharge Orders/Prescriptions Prescriptions: Continued divalproex 500 mg tablet,delayed release (DR/EC) 500 mg PO BID Qty: 180 3RF aspirin 81 MG tablet 81 mg PO DAILY atorvastatin 40 mg tablet 40 mg PO DAILY buprenorphine-naloxone 8-2 mg tablet, sublingual 2 tab sublingual DAILY escitalopram oxalate 10 mg tablet 10 mg PO DAILY folic acid 1 mg Tablet 1 mg PO DAILY@0800 Qty: 30 0RF Referrals / Follow Up: Issac Karimi MD [Primary Care Provider] - Within 1 Week Disposition Disposition (needs filled in before D/C Order can be placed): Home, Self Care Charges/Coding Visit Charges Inpatient E&M: 20674 [facility] Hosp >30min
[2024-12-27 12:00] VITALS: BP 112/76; PULSE 76; RESP 18; TEMP 36.8; O2SAT 98
== END 2024-12-27 13:47 | disposition home or self-care (01) | DRG 897 ==
LOC: ED 13:30 → MS3 16:02
PROVIDERS: Admitting Provider Hospitalist; Emergency Provider Surgery; PCP Family Medicine; Visit Provider Family Medicine
DX: F10.139 Alcohol abuse with withdrawal, unspecified (principal); G40.209 Localization-related (focal) (partial) symptomatic epilepsy and epileptic syndromes with complex partial seizures, not intractable, without status epilepticus; F32.A Depression, unspecified; E66.812 Obesity, class 2; E78.5 Hyperlipidemia, unspecified; F41.1 Generalized anxiety disorder; Z68.36 Body mass index [BMI] 36.0-36.9, adult; Z79.82 Long term (current) use of aspirin; Z79.02 Long term (current) use of antithrombotics/antiplatelets; Z79.899 Other long term (current) drug therapy; Z86.73 Personal history of transient ischemic attack (TIA), and cerebral infarction without residual deficits
CPT/HCPCS: 36415; 80048; 80053; 80164; 80307; 81001; 82077; 83735; 85025; 85027; 93005; 94668; 99285; A4216; J2405

== ENCOUNTER 2025-01-17 10:55 | Inpatient (IN) | payer OTHER, SELFPAY ==
[2025-01-17] VITALS (9 sets, daily range): BP systolic 111–170; BP diastolic 67–87; PULSE 71–88; RESP 13–22; TEMP 36.6–36.7; O2SAT 93–99; BMI 32.9; BMI 33.9
--- NOTE | 2025-01-17 11:08 | EKG12_ITS ---
Test Reason : STROKE ARERT Blood Pressure : */* mmHG Vent. Rate : 80 BPM Atrial Rate : 80 BPM P-R Int : 166 ms QRS Dur : 92 ms QT Int : 430 ms P-R-T Axes : 60 -31 -15 degrees QTcB Int : 495 ms Normal sinus rhythm Left axis deviation Incomplete right bundle branch block Nonspecific ST and T wave abnormality QTcB >= 480 msec Abnormal ECG Confirmed by SANTIAGO ESPINOSA, VOLODYMYR ([id number]), movie editor LASHONDA ALCANTAR ([id number]) on 01/18/2025 8:23:54 AM Referred By: Confirmed By: VOLODYMYR HENDERSON MD
--- NOTE | 2025-01-17 11:08 | CT_ITS ---
PROCEDURE: STROKE CTA HEAD AND NECK W/CON 01/17/2025 REASON FOR EXAM: NEURO DEFICIT, ACUTE, STROKE SUSPECTED TECHNIQUE: STROKE CTA HEAD AND NECK W/CON Multiplanar Sagittal and Coronal images were obtained. CONTRAST: Isovue 3 7 VOLUME: 100 mL One or more dose reduction techniques were used (e.g., Automated exposure control, adjustment of the mA and/or kV according to patient size, use of iterative reconstruction technique). RADIATION DOSE SUMMARY: CTDlvol: 17 mGy DLP: 839 mGycm COMPARISON: Prior study dated May 08, 2023. FINDINGS: Aortic Arch: Normal size and branching pattern. No significant atherosclerotic plaque. Brachiocephalic and Subclavians: Unremarkable Heterogeneous enlargement of the right lobe of the thyroid gland suggestive of goiter is change. RIGHT Carotid: Right CCA: Unremarkable. Right ICA: Unremarkable. Right ECA: Unremarkable. LEFT Carotid: Left CCA: Unremarkable. Left ICA: Unremarkable. Left ECA: Unremarkable. Vertebrals: Codominant. Arise from the subclavians. Both vertebrals form the basilar. RIGHT Vertebral: Unremarkable. LEFT Vertebral: Unremarkable. Anatomy: [place] anatomy is normal. Aneurysm or avm: No intracranial aneurysms or large vascular malformations are identified. Anterior cerebral arteries: Unremarkable: Middle cerebral arteries: Unremarkable. Basilar artery: Unremarkable. Posterior cerebral arteries: Unremarkable. Other major branches of the posterior circulation: Unremarkable. Major venous structures: Unremarkable. Other findings: Neck: Lungs: Bones: CT/STROKE CTA Head AND Neck W/Con IMPRESSION: Unremarkable examination. Reading Location: [place] [id number]
--- NOTE | 2025-01-17 11:10 | CT_ITS ---
PROCEDURE: STROKE BRAIN/HEAD WITHOUT CONT 01/17/2025 REASON FOR EXAM: NEURO DEFICIT, ACUTE, STROKE SUSPECTED TECHNIQUE: STROKE BRAIN/HEAD WITHOUT CONT Coronal and Sagittal reconstruction series were provided. One or more dose reduction techniques were used (e.g., Automated exposure control, adjustment of the mA and/or kV according to patient size, use of iterative reconstruction technique. RADIATION DOSE SUMMARY: CTDlvol: 47.06 mGy DLP: 890.33 mGycm COMPARISON: Prior study dated November 30, 2023. FINDINGS: Brain: Low density in the periventricular white matter suggests mild chronic small vessel ischemic changes. Old lacunar infarct in the head of the right caudate nucleus as well as a tiny lacune in the insular cortex of the left temporal lobe. CSF Spaces: Mild generalized cerebral atrophy Sinuses/Mastoids: Clear at visualized levels Bones: Unremarkable CT/STROKE Brain/Head without Cont IMPRESSION: CHRONIC CHANGES. NO ACUTE FINDINGS. Red Alert: The critical information above was relayed directly by me by telephone to Kameron Sorenson on 01/17/2025 at 11:25 am with readback verification. Reading Location: [place] [id number]
[2025-01-17 11:30] LABS: Hematocrit 40.4 % (37-47); Hemoglobin 13.8 g/dL (12.0-15.0); Immature Granulocytes Count 0.040 X10^3/uL (0.0-0.0); Mean Corp Hgb Conc 34.2 g/dL (32-36); Mean Corpuscular Volume 96.7 fL (81-99); Mean Platelet Vol. 10.0 fl (6.2-12.0); NRBC Flagged by Analyzer 0 % (0-5); Platelet Count 199 K/mm3 (150-450); RBC Distribution Width CV 12.2 % (11.6-14.6); RBC Distribution Width SD 43.4 fl (35.1-43.9); Red Blood Count 4.18 M/mm3 (4.2-5.4); White Blood Count 7.0 K/mm3 (4.4-11.0)
[2025-01-17] MEDS: 0.9% Normal Saline (1000mL) 1,000 ML 999 ML IV (11:31)
--- NOTE | 2025-01-17 11:58 | EX.ED.DYSGE1 ---
HPI History of Present Illness Chief Complaint: Seizure Narrative Narrative: Patient is a 59-year-old female past medical history of alcohol abuse, seizures, substance abuse, hyperlipidemia who presents to the emergency department the chief complaint of having possible seizure this morning. Last drink was yesterday morning she is requesting detox. While EMS was at bedside they noted that she developed right-sided facial droop which prompted the nurse to come to get me to evaluate the patient. After evaluation patient was made a stroke alert. [facility] Medical History (Updated 01/17/25 @ 13:[address] Kameron Gunderson, DO) Acute stroke due to occlusion of left middle cerebral artery Right sided weakness Anxiety and depression Alcohol abuse Amputation of leg Seizures Substance abuse Opioid use disorder History of drug overdose Unilateral above knee amputation Seizures Hyperlipidemia Home Medications ?Medication ?Instructions ?Recorded ?Last Taken ?Type aspirin 81 mg tablet,delayed 81 mg PO DAILY heart health 05/20/18 07/17/24 History release atorvastatin 40 mg tablet 40 mg PO DAILY 12/26/23 01/16/25 History buprenorphine 8 mg-naloxone 2 mg 2 tab sublingual DAILY 12/26/23 01/17/25 History sublingual tablet escitalopram oxalate 10 mg tablet 10 mg PO DAILY 07/17/24 01/17/25 History divalproex 500 mg tablet,delayed 1,000 mg PO BID Seizure disorder 01/17/25 01/17/25 History release multivitamin (Daily Multi-Vitamin 1 tab PO DAILY 01/17/25 01/16/25 History tablet) Allergy/AdvReac Type Severity Reaction Status Date / Time metoclopramide HCl (From Allergy shaking Verified 12/22/24 12:28 Reglan) prochlorperazine (From Allergy Hives Verified 12/22/24 12:28 Compazine) promethazine (From Phenergan) Allergy Hives Verified 12/22/24 12:28 Family History (Updated 01/17/25 @ 12:[address] Mona Moore MD) Mother Dementia CVA (cerebral vascular accident) Myocardial infarction Father , in his 40s. Heart disease Hypercholesteremia CAD (coronary artery disease) Myocardial infarction Surgical History (Updated 01/17/25 @ 12:[address] Mona Moore MD) History of surgery on lower extremity History of carpal tunnel release History of hysterectomy History of cholecystectomy S/P appendectomy H/O wrist surgery Social History household members: none Smoking Status: Never smoker alcohol intake: current details: occasional glass of wine substance use type: does not use caffeine: No do you feel safe at home: Yes ROS ROS ED ROS Narrative Constitutional: Denies headache, lightness, chills, fevers, chills Eyes: Denies change in vision double vision blurred vision Cardiovascular: Denies chest pain Respiratory: Denies shortness of breath Abdomen: Denies abdominal pain nausea vomit diarrhea : Denies urinary symptoms Neurological: Complains of possibility of seizure this morning as well as right-sided facial droop as noted above Musculoskeletal: Denies back pain Skin: Denies rashes or lesions EXAM Physical Exam Narrative Exam Narrative: General: Patient lying in bed rest comfortably do not appear to be in acute distress Head: Atraumatic, normocephalic Eyes: PERRL bilaterally, EOMI blood, no conjunctival injection noted Neck: Soft, supple, trachea midline Cardiovascular: Regular rate and rhythm no murmurs gallops rubs noted Respiratory: Clear to auscultation bilaterally no rales rhonchi or wheezes noted Abdomen: Soft, nondistended, tender to palpation Extremities: +4/5 strength noted in the bilateral upper and lower extremities, radial pulses +2/4 in the bilateral extremities Neurological: Patient following commands and that she was at [facility] year is 2024. Sensation grossly intact. Patient does have right-sided facial droop noted Skin: Warm, dry, tact no rashes or lesions noted Const Vital Signs: 01/17/25 11:08 01/17/25 11:08 01/17/25 11:11 Temperature 97.9 F Temperature Source Temporal Pulse Rate 85 85 Respiratory Rate 22 H 14 Blood Pressure 170/81 H 153/84 H Blood Pressure Mean 110 107 Pulse Ox 97 98 Oxygen Delivery Method Room Air Room Air Room Air 01/17/25 11:38 01/17/25 12:08 Temperature Temperature Source Pulse Rate 83 74 Respiratory Rate 13 13 Blood Pressure 157/87 H 156/77 H Blood Pressure Mean 110 103 Pulse Ox 99 98 Oxygen Delivery Method Room Air MDM MDM MDM Narrative Medical decision making narrative: Patient is a 59-year-old female who presented to the emergency department chief complaint of wanting alcohol detox, concern for seizure and ultimately was made a stroke alert for her right-sided facial droop. On the differential diagnosis includes but not limited to intracranial hemorrhage, ischemic stroke, electrolyte malady, cardiac arrhythmia, vasculopathy. Once workup is obtained reviewed she will be reevaluated. Patient CBC reviewed showed white blood count is normal at 7, hemoglobin 13.8, platelet count was 199. Patient's chemistries are pending as well as coagulation panel. Patient CT head brain without contrast reviewed which showed chronic changes no acute findings. Patient CTA head and neck reviewed which showed no acute findings. Patient was evaluated by teleneurologist and he does not recommend giving tenecteplase given the not clear onset of facial droop, history of seizures, alcohol abuse. Will discuss case with hospitalist for admission. Patient case discussed with hospitalist Dr. Madsen who accept patient for admission. Patient was having some increased tremors therefore she was given oral Ativan as well as Zofran for her nausea. She was notified is agreeable this plan all question concerns answered. Lab Data Labs: Laboratory Results - last 24 hr 01/17/25 01/17/25 11:10 11:11 WBC 7.0 RBC 4.18 L Hgb 13.8 Hct 40.4 MCV 96.7 MCH 33.0 H MCHC 34.2 RDW Std Deviation 43.4 RDW Coeff of Adilia 12.2 Plt Count 199 MPV 10.0 Immature Gran % (Auto) 0.600 Neut % (Auto) 57.6 Lymph % (Auto) 28.2 Ocean % (Auto) 11.0 H Eos % (Auto) 1.6 Baso % (Auto) 1.0 Absolute Neuts (auto) 4.0 Absolute Lymphs (auto) 1.98 Nucleated RBC % 0 PT 14.4 INR 1.1 APTT 25.3 Sodium 140 Potassium 3.8 Chloride 99 Carbon Dioxide 25.1 Anion Gap 16 H BUN 9 Creatinine 0.63 L Estim Creat Clear Calc 97.68 Est GFR (MDRD) Non-Af 102 BUN/Creatinine Ratio 14.8 Glucose 154 H Calcium 9.4 Troponin T High Sens 10 POC Glucose 124 H Radiography Diagnostic Testing: Clinical Impression(s) from Imaging Studies Head/Neck CTA 01/17/25 11:08 IMPRESSION: Unremarkable examination. Reading Location: [facility] 01/17/25 11:10 IMPRESSION: CHRONIC CHANGES. NO ACUTE FINDINGS. Red Alert: The critical information above was relayed directly by me by telephone to Kameron Gunderson on 01/17/2025 at 11:25 am with readback verification. Reading Location: [facility] Discharge Plan Triage Chief Complaint: Seizure Other Complaint: Suicidal ED Provider: Kameron Gunderson Dx/Rx/DC Orders Clinical Impression: Alcohol withdrawal, Seizure, Facial droop, Alcohol abuse Primary Care Provider: Issac Karimi Disposition Disposition: Acute Care Hospital [facility]
[2025-01-17 12:00] LABS: Prothrombin Time (Protime)PT. 14.4 SECONDS (11.7-14.9)
[2025-01-17 12:01] LABS: Partial Thromboplast Time 25.3 Seconds (24.1-36.2)
--- NOTE | 2025-01-17 12:24 | PCM.HP.STD ---
HPI - General General Date of Admission: 01/17/25 Date of Service: 01/17/25 Chief Complaint: Concern EtOH withdrawal seizure. HPI Narrative The patient is a 59 y/o F w/ PMHx: Obesity, Polysubstance abuse (Opiate on suboxone, EtOH abuse) history per chart report, Anxiety and Depression, HLD, Seizure disorder, Hx CVA (L MCA chart reported) w/ previous chart history of R sided chronic hemiplegia, s/p Prior Trauma s/p LLE amputation who presents to the [facility] ED on 01/17/25 with history of concern for possible seizure on morning day of presentation with last drink the day prior in the a.m. with concern for withdrawal seizures prompting ED evaluation with request for detoxification. Per EMS who was at the bedside patient then had onset of right sided facial droop prompting repeat ED evaluation and given findings patient at that time was made a stroke alert. Patient of note was recently discharged 12/27/2024 following alcohol detoxification treatment. Patient reports only sips of rum earlier in the morning with early seizure awakening on the floor with loss of bowel and bladder noted to be extremely tremulous with tactile disturbances and nausea. She notes unfortunately she had been sober however she has been relapsing as her children are also alcoholics and drink heavily around her despite her intent on being sober. She notes that she has been since recent discharge drinking approximately fifth of rum daily. She does state that she has been compliant with her aspirin, statin, seizure medications. Workup in the ED included T97.9 Temporal, heart rate 85, BP 170/81, respiratory rate 22, 97% on room air with most recent repeat vitals heart rate 74, BP 156/77, respiratory rate 13, 98% on room air, CBC with WBC 7, hemoglobin 13.8, platelet 199 without marked shift, unremarkable coags, BMP pending upon request evaluation of patient as well as troponin series pending upon requested evaluation of patient, CT brain with chronic changes with no acute intracranial findings with low-density periventricular white matter suggestive of mild chronic vessel ischemic changes with an old lacunar infarct in the head of the right caudate nucleus as well as a tiny lacunar in the insular cortex of the left temporal lobe, CTA head and neck with no acute intracranial aneurysms, malformations, stenoses or occlusions, EKG with SR with no acute evidence of ischemia with incomplete RBBB. Telemetry neurology evaluation given stroke alert transition by Dr. Shearer with recommendation against tenecteplase given unclear onset, recent seizure history and alcohol abuse with continued evaluation recommended. In the ED patient ministered 1 L normal saline, Ativan 1 mg p.o. x 1, Zofran 4 mg IV x 1. [facility] Medical History Acute stroke due to occlusion of left middle cerebral artery Right sided weakness Anxiety and depression Alcohol abuse Amputation of leg Seizures Substance abuse Opioid use disorder History of drug overdose Unilateral above knee amputation Seizures Hyperlipidemia Home Medications ?Medication ?Instructions ?Recorded ?Last Taken ?Type aspirin 81 mg tablet,delayed 81 mg PO DAILY heart health 05/20/18 07/17/24 History release atorvastatin 40 mg tablet 40 mg PO DAILY 12/26/23 01/16/25 History buprenorphine 8 mg-naloxone 2 mg 2 tab sublingual DAILY 12/26/23 01/17/25 History sublingual tablet escitalopram oxalate 10 mg tablet 10 mg PO DAILY 07/17/24 01/17/25 History divalproex 500 mg tablet,delayed 1,000 mg PO BID Seizure disorder 01/17/25 01/17/25 History release multivitamin (Daily Multi-Vitamin 1 tab PO DAILY 01/17/25 01/16/25 History tablet) Allergy/AdvReac Type Severity Reaction Status Date / Time metoclopramide HCl (From Allergy shaking Verified 12/22/24 12:28 Reglan) prochlorperazine (From Allergy Hives Verified 12/22/24 12:28 Compazine) promethazine (From Phenergan) Allergy Hives Verified 12/22/24 12:28 Family History Mother Dementia CVA (cerebral vascular accident) Myocardial infarction Father , in his 40s. Heart disease Hypercholesteremia CAD (coronary artery disease) Myocardial infarction Surgical History History of surgery on lower extremity History of carpal tunnel release History of hysterectomy History of cholecystectomy S/P appendectomy H/O wrist surgery Social History (Updated 01/17/25 @ 13:[address] Mona Moore MD) household members: none Smoking Status: Never smoker alcohol intake: current alcohol intake frequency: 3 or more drinks per day Alcohol type: hard liquor details: 07/18 rum daily. substance use type: other details: Former, on suboxone. caffeine: No do you feel safe at home: Yes ROS [place]IQUIS Narrative Admission Review of Systems: CONSTITUTIONAL: No weight loss, fever, chills, + weakness or fatigue. HEENT: + Right sided facial droop. Eyes: No visual loss, blurred vision, double vision or yellow sclerae. Ears, Nose, Throat: No hearing loss, sneezing, congestion, runny nose or sore throat. SKIN: No rash or itching, lesions, wounds except + occasional stage ecchymoses, abrasion, right sided paresthesias. CARDIOVASCULAR: No chest pain, chest pressure or chest discomfort, palpitations, edema, orthopnea, syncopal events. RESPIRATORY: No shortness of breath, cough or sputum, wheezing, hemoptysis. GASTROINTESTINAL: + anorexia, nausea, mild abdominal discomfort. No vomiting, diarrhea, melena, BRBPR. GENITOURINARY: No dysuria, frequency, urgency or retention. NEUROLOGICAL: + Alcohol withdrawal seizure, loss of bowel and bladder, right-sided facial droop, mild right lower extremity drift, right-sided paresthesias. No headache, dizziness, syncope, paralysis. MUSCULOSKELETAL: + muscle, back pain, joint pain or stiffness. HEMATOLOGIC: + Chronic anemia, easy bleeding/bruising. LYMPHATICS: No enlarged nodes. No history of splenectomy. PSYCHIATRIC: + History of anxiety and depression. ENDOCRINOLOGIC: No reports of sweating, cold or heat intolerance. No polyuria or polydipsia. ALLERGIES: + History of hives. Vital Signs Vital Signs Vital Signs: 01/17/25 11:08 01/17/25 11:08 01/17/25 11:11 Temperature 97.9 F Temperature Source Temporal Pulse Rate 85 85 Respiratory Rate 22 H 14 Blood Pressure 170/81 H 153/84 H Blood Pressure Mean 110 107 Pulse Ox 97 98 Oxygen Delivery Method Room Air Room Air Room Air 01/17/25 11:38 01/17/25 12:08 Temperature Temperature Source Pulse Rate 83 74 Respiratory Rate 13 13 Blood Pressure 157/87 H 156/77 H Blood Pressure Mean 110 103 Pulse Ox 99 98 Oxygen Delivery Method Room Air Weight Weight: 185 lb 13.595 oz Body Mass Index (BMI) 32.9 Physical Exam Narrative Physical Examination: General: Awake, alert, oriented to self, place and recent events, notes feeling improved since initial ED arrival, cooperative, laying in the ED bed, fatigued. Skin: Normal color, normal turgor, no icterus, no cyanosis except occasional stage ecchymoses, abrasion. HEENT: AT/NC, EOMI, PERRLA, mildly dry MM, persistent mild right-sided facial droop but does correct with smiling with some still soft nasolabial flattening on that side, ongoing right-sided facial paresthesias, no carotid bruits or JVD noted. Lungs: CTA bilaterally, moderate effort, mild decrease BL bases, no rales, ronchi or wheezing. Heart: Regular rate and rhythm; no gallop, rub audible. Abdomen: Soft, obese, NTTP, ND, mildly hyperactive BS, no appreciated HSM. 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 Neurological: Patient awake, alert, oriented as noted, cognitive function intact; pupils equally reactive to light and accommodation, cranial nerves grossly normal, moving both upper and right lower extremity, status post left lower extremity habitation as noted, [id number] appropriate although slow, no drift with upper extremities, mildly bilateral decreased director of marketing communications strength but intact, right lower extremity with some drift but able to lift off the bed for full duration of 5-second florentin, equivocal Babinski, sensation mild decreased right side. Psychiatric: Affect appears fatigued otherwise normal, no acute evidence of depressive or anxiety feelings but does have underlying history, denies any suicidal ideation. Results Lab / Micro Data 01/17/25 11:10 01/17/25 11:10 Labs: Laboratory Results - last 24 hr 01/17/25 11:10: WBC 7.0, RBC 4.18 L, Hgb 13.8, Hct 40.4, MCV 96.7, MCH 33.0 H, MCHC 34.2, RDW Std Deviation 43.4, RDW Coeff of Adilia 12.2, Plt Count 199, MPV 10.0, Immature Gran % (Auto) 0.600, Neut % (Auto) 57.6, Lymph % (Auto) 28.2, [place] % (Auto) 11.0 H, Eos % (Auto) 1.6, Baso % (Auto) 1.0, Absolute Neuts (auto) 4.0, Absolute Lymphs (auto) 1.98, Nucleated RBC % 0, PT 14.4, INR 1.1, APTT 25.3 01/17/25 11:11: POC Glucose 124 H Imaging Radiology Impression Head/Neck CTA 01/17/25 11:08 IMPRESSION: Unremarkable examination. Reading Location: [facility]-[address] 01/17/25 11:10 IMPRESSION: CHRONIC CHANGES. NO ACUTE FINDINGS. Red Alert: The critical information above was relayed directly by me by telephone to Kameron Gunderson on 01/17/2025 at 11:25 am with readback verification. Reading Location: [facility]1 Assessment & Plan Assessment/Plan (1) Alcohol withdrawal: (2) Seizure: (3) Facial droop: PLAN: Plan The patient is a 59 y/o F w/ PMHx: Obesity, Polysubstance abuse (Opiate on suboxone, EtOH abuse) history per chart report, Anxiety and Depression, HLD, Seizure disorder, Hx CVA (L MCA chart reported) w/ previous chart history of R sided chronic hemiplegia, s/p Prior Trauma s/p LLE amputation who presents to the [facility] ED on 01/17/25 with history of concern for possible seizure on morning day of presentation with last drink the day prior in the a.m. with concern for withdrawal seizures prompting ED evaluation with request for detoxification with onset of incidentally noted right-sided facial droop in the ED with stroke alert initiated. #1. New onset right-sided facial droop, right-sided paresthesias, mild right lower extremity drift concerning for CVA/TIA with history of previous CVA with prior right-sided hemiplegia since resolved (denies any ongoing deficits in previous stroke): Will admit to PCU, will obtain MRI Brain, ECHO, PT/OT/Speech/Nutrition evaluation per protocol. Will allow permissive HTN, maintain on asa, statin w/ AM FLP, fall precautions. Mag, TSH, FLP, HgbA1c requested. Maintain on fall and aspiration precautions. Will continue neurology consultation. #2. Acute EtOH Withdrawal with concern for alcohol withdrawal associated seizure with history of previous similar presentation: Given interest in sobriety, will initiate and continue on protocol with taper course of Phenobarbital, as needed gabapentin, Catapres, Bentyl, Vistaril, IV fluids, IV antiemetics, Tylenol as needed for pain. Will consult Case management for assistance for transition to next level of rehabilitation care. Mag, phos pending. Maintain on CIWA protocol concurrently. Will maintain on antiepileptic medication. #3. Complex partial seizures w/ recent acute EtOH withdrawal seizure as noted #2: Valproic acid level requested, notes that she has been compliant with medications, will dose x 1 now, continue treatment of alcohol withdrawal as likely contributing as noted above. Will maintain on seizure precautions. #4. Elevated BP without hypertensive diagnosis: BP elevated above goal, given acute presentation #1 will hold on any regimen addition, as needed agents per stroke protocol, add oral regimen if clinically becomes appropriate. #5. History of polysubstance abuse with opiate dependence: Noted be in remission for several years, reports continued clean status, UDS requested, continue Suboxone regimen. #6. History of previous left lower extremity MRSA infection status post left lower extremity amputation: Remote history of left lower extremity amputation with significant MRSA wound history, usually uses crutches and wheelchair, PT/OT consulted as noted. #7. Anxiety and depression: Initial concerns upon presentation with recent intoxication of suicidal ideation and but now the patient is more alert and interactive she denies any suicidal aviation and does admit to anxiety and depression ongoing but no intention of self-harm. Suicide precautions discontinued in the ED. #8. Hyperlipidemia: Continue home statin regimen. AM FLP. #9. DVT prophylaxis: Lovenox. Charges/Coding Visit Charges Inpatient E&M: 00780 Init Hosp L3
[2025-01-17 12:41] LABS: Anion Gap 16 (5-15); BUN 9 mg/dL (4-19); BUN/Creat Ratio 14.8 RATIO (10-20); Calcium,Total 9.4 mg/dL (7.6-11.0); Carbon Dioxide 25.1 mmol/L (21.0-32.0); Chloride 99 mmol/L (98-108); Estimated Creatinine Clearance 97.68 ml/min (50-250); Glucose 154 mg/dL (70-99); Potassium 3.8 mmol/L (3.3-5.1); Troponin T High Sensitivity 10 ng/L (<=14)
--- NOTE | 2025-01-17 12:58 | ED.RN ---
Discharge sitter per Dr Moore
--- NOTE | 2025-01-17 13:47 | ECHOD_ITS ---
Reason For Study Reason For Study: TIA/CVA Procedure This was a 2D Doppler, Color Flow transthoracic echocardiogram. Exam performed portable in patient room. Left Ventricle Normal LV size. Left ventricular systolic function is normal. The left ventricular ejection fraction is 60 %. No regional wall motion abnormalities noted. Right Ventricle Normal RV size. Normal systolic function. Atria Normal left atrium. Normal right atrium. Bubble contrast study is negative for PFO/ASD. Mitral Valve Normal mitral valve. Tricuspid Valve Normal tricuspid valve. Mild tricuspid valve insufficiency. Pulmonary artery systolic pressure is 24 mmHg. Aortic Valve Trisinus/trileaflet aortic valve. Pulmonic Valve Normal pulmonic valve. Great Vessels Normal aortic root. The pulmonary artery is normal size. Inferior vena cava collapse with respiration. Pericardium/Pleural No pericardial effusion. Medication Performed a rapid injection of agitated mix of 9 cc saline and 1cc air to assess for atrial septal defect. MMode/2D Measurements & Calculations LVIDd: 5.1 cm IVSd: 0.67 cm LVOT diam: 2.0 cm LVIDs: 2.7 cm LVPWd: 0.86 cm RVDd: 4.2 cm FS: 46.9 % LVOT area: 3.1 cm2 asc Aorta Diam: 3.2 cm LAV(MOD-bp): 44.8 ml LVAd ap4: 23.1 cm2 LAV(MOD-bp) Indexed: 23.6 ml/m2 LVLd ap4: 6.5 cm LAV(MOD-sp2): 41.3 ml EDV(MOD-sp4): 66.1 ml LAV(MOD-sp4): 44.6 ml EDV(sp4-el): 69.0 ml LVAs ap4: 11.3 cm2 LVLs ap4: 5.7 cm ESV(MOD-sp4): 18.8 ml ESV(sp4-el): 19.0 ml EF(MOD-sp4): 71.5 % EF(sp4-el): 72.5 % LVAd ap2: 21.2 cm2 SV(MOD-sp4): 47.3 ml SV(MOD-sp2): 37.0 ml LVLd ap2: 6.7 cm SI(MOD-sp4): 24.9 ml/m2 SI(MOD-sp2): 19.5 ml/m2 EDV(MOD-sp2): 54.5 ml EDV(sp2-el): 56.9 ml LVAs ap2: 10.7 cm2 LVLs ap2: 5.5 cm ESV(MOD-sp2): 17.5 ml ESV(sp2-el): 17.7 ml EF(MOD-sp2): 67.9 % SV(sp4-el): 50.1 ml Ao sinus diam: 2.[address] Junction: 2.1 cm LA dimension(2D): 3.3 cm LA A4 area: 17.8 cm2 RA A4 area: 10.7 cm2 TAPSE: 2.2 cm Time Measurements MV dec time: 0.16 sec Doppler Measurements & Calculations MV E max chaz: 77.3 cm/sec Lat Peak E' Chaz: 11.2 cm/sec Med Peak E' Chaz: 9.0 cm/sec MV A max chaz: 72.7 cm/sec E/E' lat: 6.9 E/E' med: 8.6 MV E/A: 1.1 MV dec slope: 474.9 cm/sec2 Ao V2 max: 158.5 cm/sec LV V1 max: 130.8 cm/sec Ao max P.0 mmHg LV V1 max P.8 mmHg Ao V2 mean: 102.7 cm/sec LV V1 mean P.3 mmHg Ao mean P.0 mmHg LV V1 mean: 83.4 cm/sec Ao V2 VTI: 34.3 cm LV V1 VTI: 27.1 cm AV (velocity ratio): 0.79 LESLIE(I,D): 2.5 cm2 LESLIE(V,D): 2.6 cm2 SV(LVOT): 85.4 ml PA V2 max: 87.8 cm/sec TR max chaz: 227.0 cm/sec TR max P.6 mmHg ECHO/Echo Complete Interpretation Summary Normal LV size. Left ventricular systolic function is normal. The left ventricular ejection fraction is 60 %. Bubble contrast study is negative for PFO/ASD. Mild tricuspid valve insufficiency. Ordering Physician: Mona Moore Referring Physician: Issac Karimi MD Performed By: Beverley Lynn RDCS
--- NOTE | 2025-01-17 13:47 | MRI_ITS ---
PROCEDURE: BRAIN WITHOUT CONTRAST 01/17/2025 REASON FOR EXAM: TIA/CVA TECHNIQUE: BRAIN WITHOUT CONTRAST Multiplanar and multisequence images were obtained. FINDINGS: There is no diffusion restriction to represent an acute or recent territory of infarction. Brainstem and cerebellum unremarkable. No intracranial mass or pathologic flow voids. There is a prior lacunar infarct in the right caudate nucleus. No acute or chronic hemorrhage. No significant demyelination. No significant hippocampal atrophy. MRI/Brain without Contrast IMPRESSION: No acute abnormality [facility]
[2025-01-17 15:12] LABS: Valproic Acid (Depakene) Level 97 ug/mL (50-100)
[2025-01-17 15:29] LABS: Alcohol, Blood (Medical)-Serum < 10.1 mg/dL (<=10.0)
[2025-01-17 16:05] LABS: Magnesium 1.9 mg/dL (1.5-2.2)
[2025-01-17 16:08] LABS: AST(SGOT) 116 U/L (<=31); Alanine Aminotransfer ALT/SGPT 115 U/L (<=34); Albumin, Serum 4.0 g/dL (3.4-4.8); Alkaline Phosphatase 142 U/L (35-104); Bilirubin, Direct 0.09 mg/dL (0.00-0.30); Globulin 3.3 g/dL (2.2-4.2)
[2025-01-17] MEDS: Lactated Ringers 1,000 ML 125 ML IV (17:20)
[2025-01-18] VITALS (7 sets, daily range): BP systolic 115–140; BP diastolic 58–90; PULSE 68–88; RESP 16–18; TEMP 36.3–37.1; O2SAT 94–97; BMI 35.6
[2025-01-18 06:08] LABS: Hematocrit 36.2 % (37-47); Hemoglobin 12.1 g/dL (12.0-15.0); Immature Granulocytes Count 0.020 X10^3/uL (0.0-0.0); Mean Corp Hgb Conc 33.4 g/dL (32-36); Mean Corpuscular Volume 98.4 fL (81-99); Mean Platelet Vol. 10.0 fl (6.2-12.0); NRBC Flagged by Analyzer 0 % (0-5); Platelet Count 169 K/mm3 (150-450); RBC Distribution Width CV 12.7 % (11.6-14.6); RBC Distribution Width SD 45.7 fl (35.1-43.9); Red Blood Count 3.68 M/mm3 (4.2-5.4); White Blood Count 7.1 K/mm3 (4.4-11.0)
[2025-01-18 06:57] LABS: AST(SGOT) 56 U/L (<=31); Alanine Aminotransfer ALT/SGPT 72 U/L (<=34); Albumin, Serum 3.7 g/dL (3.4-4.8); Alkaline Phosphatase 111 U/L (35-104); Anion Gap 11 (5-15); BUN 13 mg/dL (4-19); BUN/Creat Ratio 20.6 RATIO (10-20); Calcium,Total 8.9 mg/dL (7.6-11.0); Carbon Dioxide 27.3 mmol/L (21.0-32.0); Chloride 104 mmol/L (98-108); Estimated Creatinine Clearance 98.69 ml/min (50-250); Globulin 2.2 g/dL (2.2-4.2); Glucose 107 mg/dL (70-99); Potassium 3.6 mmol/L (3.3-5.1)
--- NOTE | 2025-01-18 07:08 | PCM.PN.HOSP ---
Reason for Visit Reason for Visit: Diagnoses Alcohol use, unspecified with withdrawal, unspecified (01/17/25) Facial weakness (01/17/25) Unspecified convulsions (01/17/25) Subjective Subjective Patient with no acute events overnight per self per nursing report. Patient notes feeling somewhat improved but notes needs her suboxone restarted. Discussed that it was continued but reached out to pharmacy and they will need to alter to regimen available at equivalent to which patient is amenable. Patient continues to have mild right-sided facial droop but she seated upright and again it corrects thus do believe given no acute findings on MRI of acute stroke that likely this is from her previous stroke. Discussed plan of care with her included continued phenobarbital taper, de-escalate off seizure precautions, awaiting neurology evaluation to be cautious. Patient does feel mildly tremulous at this point but is being given a dose of phenobarbital right now. Patient denies fevers, chills, nausea, emesis, abdominal pain, chest pain or dyspnea. Objective Data Objective Data Vital Signs: Vital Signs Temp Pulse Resp BP Pulse Ox O2 Del Method 98.5 F 75 16 131/71 H 96 Room Air 01/18/25 07:00 01/18/25 07:00 01/18/25 07:00 01/18/25 07:00 01/18/25 07:00 01/18/25 07:00 Oxygen Delivery Method Room Air Weight: 201 lb 0.985 oz Body Mass Index (BMI) 35.6 Intake & Output: Intake and Output for Last 24 Hours 01/16/25 01/17/25 01/18/25 23:59 23:59 23:59 Intake Total 1240 / 1240 1000 / 1000 Output Total 0 / 250 250 / 250 Balance 1240 / 990 750 / 750 Lab / Micro Data 01/18/25 05:33 01/18/25 05:33 Labs: Laboratory Results - last 24 hr 01/17/25 11:09: Phosphorus 2.5 L, Magnesium 1.9, Total Bilirubin 0.32, Direct Bilirubin 0.09, AST 116 H, ALT 115 H, Alkaline Phosphatase 142 H, Total Protein 7.2, Albumin 4.0, Globulin 3.3 01/17/25 11:10: WBC 7.0, RBC 4.18 L, Hgb 13.8, Hct 40.4, MCV 96.7, MCH 33.0 H, MCHC 34.2, RDW Std Deviation 43.4, RDW Coeff of Adilia 12.2, Plt Count 199, MPV 10.0, Immature Gran % (Auto) 0.600, Neut % (Auto) 57.6, Lymph % (Auto) 28.2, Weld % (Auto) 11.0 H, Eos % (Auto) 1.6, Baso % (Auto) 1.0, Absolute Neuts (auto) 4.0, Absolute Lymphs (auto) 1.98, Nucleated RBC % 0, PT 14.4, INR 1.1, APTT 25.3, Sodium 140, Potassium 3.8, Chloride 99, Carbon Dioxide 25.1, Anion Gap 16 H, BUN 9, Creatinine 0.63 L, Estim Creat Clear Calc 97.68, Est GFR (MDRD) Non-Af 102, BUN/Creatinine Ratio 14.8, Glucose 154 H, Calcium 9.4, Troponin T High Sens 10, Troponin T Hi Sens 2 Hr Cancelled, Troponin T Hi Sens 4Hr Cancelled 01/17/25 11:11: POC Glucose 124 H 01/17/25 13:33: Valproic Acid 97, Ethyl Alcohol < 10.1 01/18/25 05:33: WBC 7.1, RBC 3.68 L, Hgb 12.1, Hct 36.2 L, MCV 98.4, MCH 32.9 H, MCHC 33.4, RDW Std Deviation 45.7 H, RDW Coeff of Adilia 12.7, Plt Count 169, MPV 10.0, Immature Gran % (Auto) 0.300, Neut % (Auto) 50.0, Lymph % (Auto) 33.4, Weld % (Auto) 11.3 H, Eos % (Auto) 4.2, Baso % (Auto) 0.8, Absolute Neuts (auto) 3.6, Absolute Lymphs (auto) 2.37, Nucleated RBC % 0, Sodium 142, Potassium 3.6, Chloride 104, Carbon Dioxide 27.3, Anion Gap 11, BUN 13, Creatinine 0.65 L, Estim Creat Clear Calc 98.69, Est GFR (MDRD) Non-Af 101, BUN/Creatinine Ratio 20.6 H, Glucose 107 H, Calcium 8.9, Total Bilirubin 0.36, AST 56 H, ALT 72 H, Alkaline Phosphatase 111 H, Total Protein 5.9, Albumin 3.7, Globulin 2.2, Albumin/Globulin Ratio 1.6, TSH 2.370 Radiography Diagnostic Testing: Radiology Impression Head/Neck CTA 01/17/25 11:08 IMPRESSION: Unremarkable examination. Reading Location: [facility] 01/17/25 11:10 IMPRESSION: CHRONIC CHANGES. NO ACUTE FINDINGS. Red Alert: The critical information above was relayed directly by me by telephone to Kameron Gunderson on 01/17/2025 at 11:25 am with readback verification. Reading Location: [facility] Brain MRI 01/17/25 13:47 IMPRESSION: No acute abnormality Reading Location: [facility] Physical Exam Narrative Physical Examination: General: Awake, alert, oriented to self, place and recent events, notes feeling improved since initial ED arrival, cooperative, seated upright in the PCU bed. Skin: Normal color, normal turgor, no icterus, no cyanosis except occasional stage ecchymoses, abrasion. HEENT: AT/NC, EOMI, PERRLA, MMM, still mild right-sided nasolabial flattening and small droop but corrects with smiling mostly and no tongue deviation which was discussed with patient given negative MRI and this certainly could be from her previous stroke. Lungs: CTA bilaterally, moderate effort, mild decrease BL bases, no rales, ronchi or wheezing. Heart: Regular rate and rhythm; no gallop, rub audible. Abdomen: Soft, obese, NTTP, ND, mildly hyperactive BS, no appreciated HSM. 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 Neurological: Patient awake, alert, oriented as noted, cognitive function intact; pupils equally reactive to light and accommodation, cranial nerves grossly normal, moving both upper and right lower extremity, status post left lower extremity amputation at the pelvis, sensation intact, finger-nose appropriate, unable to perform [id number] given amputation history but no drift with lifting up the right lower extremity, patient is mildly tremulous currently with nursing staff getting a current dose of phenobarbital. Psychiatric: Affect appears normal aside from mildly tremulous, no acute evidence of depressive or anxiety feelings but does have underlying history, denies any suicidal ideation. Assessment & Plan Assessment/Plan (1) Alcohol withdrawal: (2) Seizure: (3) Facial droop: PLAN: Plan The patient is a 59 y/o F w/ PMHx: Obesity, Polysubstance abuse (Opiate on suboxone, EtOH abuse) history per chart report, Anxiety and Depression, HLD, Seizure disorder, Hx CVA (L MCA chart reported) w/ previous chart history of R sided chronic hemiplegia, s/p Prior Trauma s/p LLE amputation who presents to the [facility] ED on 01/17/25 with history of concern for possible seizure on morning day of presentation with last drink the day prior in the a.m. with concern for withdrawal seizures prompting ED evaluation with request for detoxification with onset of incidentally noted right-sided facial droop in the ED with stroke alert initiated. #1. New onset right-sided facial droop, right-sided paresthesias, mild right lower extremity drift concerning for CVA/TIA with history of previous CVA with prior right-sided hemiplegia since resolved (denies any ongoing deficits in previous stroke), RULED OUT ACUTE CVA: Admitted to PCU, MRI of the brain with no acute stroke thus facial changes possibly from previous, echocardiogram with normal LV size, LV systolic function normal, LVEF of 60%, bubble contrast again negative, mild tricuspid valve insufficiency., PT/OT/Speech/Nutrition evaluation per protocol. Initially allowed permissive hypertension, given no acute stroke will add regimen if appropriate, will maintain on asa, statin. Magnesium 1.9, TSH 2.370. FLP with triglyceride 256, total cholesterol 144, LDL 61, VLDL 51, HDL 32, hemoglobin A1c 5.6%. Will maintain on fall and aspiration precautions. Will continue neurology consultation. #2. Acute EtOH Withdrawal with concern for alcohol withdrawal associated seizure with history of previous similar presentation: Given interest in sobriety, initiated and continued on protocol with taper course of Phenobarbital, as needed gabapentin, Catapres, Bentyl, Vistaril, IV fluids, IV antiemetics, Tylenol as needed for pain. Will consult Case management for assistance for transition to next level of rehabilitation care. Mag 1.9, phosphorus mildly decreased 2.5 with supplementation administered. Maintain on CIWA protocol concurrently. Will maintain on antiepileptic medication. #3. Complex partial seizures w/ recent acute EtOH withdrawal seizure as noted #2: Valproic acid level 97 thus within range and patient does note being compliant with his medications. 01/17/2025 administered dose x 1 given presentation. Will continue treatment of alcohol withdrawal as likely contributing as noted above. Given patient has been clinically improving and on phenobarbital taper would de-escalate off seizure precautions at this time. #4. Elevated BP without hypertensive diagnosis: BP elevated above goal, improved without intervention, had held off on any interventions given #1, will continue to monitor and if regimen is necessary low threshold to add. #5. History of polysubstance abuse with opiate dependence: Noted be in remission for several years, reports continued clean status, UDS obtained with noted presumptive positive buprenorphine, continue Suboxone regimen. #6. History of previous left lower extremity MRSA infection status post left lower extremity amputation: Remote history of left lower extremity amputation with significant MRSA wound history, usually uses crutches and wheelchair, PT/OT consulted as noted. #7. Anxiety and depression: Initial concerns upon presentation with recent intoxication of suicidal ideation and but now the patient is more alert and interactive she denies any suicidal aviation and does admit to anxiety and depression ongoing but no intention of self-harm. Suicide precautions discontinued in the ED. #8. Hyperlipidemia: Continue home statin regimen. AM FLP pending. #9. DVT prophylaxis: Lovenox. Charges/Coding Visit Charges Inpatient E&M: 97195 Subs Hosp L2 NIHSS NIHSS Nursing Documentation NIHSS Nursing Documentation: NIHSS: Ischemic Stroke/TIA Start: 01/17/25 13:47 Text: For PCU Patients: NIH and Neuro Check every 4 Status: Complete hours, PRN and with change in RN caregiver. Freq: [id number] Protocol: Activity Type Activity Date Activity User E-sign Co-sign Detail Recorded Client Recorded Date Recorded By Document 01/17/25 17:30 ML [id number] 01/17/25 18:10 ML 01/17/25 17:30 NIH Stroke Scale [NIHSS] A score of 0 is normal or asymptomatic . Total possible score is 42. Inpatient: RN or Physician to activate a stroke alert for onset of new stroke symptoms or with NIHSS increase >/= 3 points. Following change in neurological status, NIHSS will be performed per physician order or more frequently PRN. -1a. Level of Consciousness 0 - Alert; keenly responsive -1b. LOC Questions 0 - Answers BOTH questions correctly -1c. LOC Commands 0 - Performs BOTH tasks correctly -2. Best Gaze 0 - Normal -3. Visual 1 - Partial hemianopia -4. Facial Palsy 1 - Minor paralysis ( flattened nasolabial fold , asymmetry on smiling) -5a. Left Arm 0 - No drift; arm holds 90 ( or 45) degrees for full 10 seconds -5b. Right Arm 0 - No drift; arm holds 90 ( or 45) degrees for full 10 seconds -6a. Left Leg UN - Amputation or joint fusion, explain : -'UN' explanation amp. -6b. Right Leg 1 - Drift; leg falls by the end of 5- seconds, but does not hit bed -7. Limb Ataxia 0 - Absent -8. Sensory 1 - Mild-to- moderate sensory loss; -9. Best Language 0 - No aphasia; normal -10. Dysarthria 1 = Mild-to- moderate dysarthria; -11. Extinction and Inattention 0 - No abnormality -Total 5 Query Text:A score of 0 is normal or asymptomatic. Total possible score is 42 . ED: Notify Physician for NIHSS increase by > / = 3 points. Inpatient: RN or Physician to activate a stroke alert for NIHSS increase of > / = 3 points. Coma Scale [Assess] -Eye Opening Spontaneous -Motor Obeys Commands -Verbal Oriented [Total] -Coma Scale Total 15
--- NOTE | 2025-01-18 09:42 | CASEMGMT ---
Addendum entered by Imelda Rawls 01/18/25 11:34: Social Work SW spoke w/Ila from [facility] [employer], pt is going to participate in the program. SW had pt sign contract as it had not been signed at admission, and placed it on the chart. Ila from [facility] [employer] is made aware. KOKO Brown Original Note: Social Work PHQ-9 not needing to be completed as pt did not have a stroke. SW attempted to meet w/pt, is sleeping soundly. SW will check w/Ila from [facility] to see if pt is going to be part of the RAMP program. KOKO Brown
[2025-01-18 10:05] LABS: Cholesterol 144 mg/dL (<=200); Low Density Lipoprotein Calc. 61 mg/dL; Triglycerides 256 mg/dL; Very Low Density Lipoprotein 51 mg/dL (5-40); cholesterol:hdl ratio screen 4.49
[2025-01-18] MEDS: Thiamine Hydrochloride 100 MG Tablet PO (10:39)
[2025-01-18] MEDS: Aspirin E.C. 81 MG Tablet PO (10:40)
[2025-01-18] MEDS: 0.9% Saline Lock 10 ML Syringe IV ×3 (10:41→15:09)
[2025-01-18] MEDS: 0.9% Normal Saline (250mL Bag) 250 ML 15 ML IV (10:43)
[2025-01-18] MEDS: Potassium Phosphate 21 MM in 0.9% Normal Saline (250mL Bag) 250 ML 84 MM IV (10:44)
--- NOTE | 2025-01-18 12:13 | ADDICTION ---
Met with Pt to complete RAMP assessments and discuss d/c planning. Pt reports that she would be willing to enter residential treatment. She reported that she is attending Outpatient tx at [facility] but is still actively consuming alcohol while attending. A referral has been placed for [facility] and we are waiting on approval. They will call to screen her today or tomorrow morning.
[2025-01-18] MEDS: hydrOXYzine PAM 25 MG Capsule 50 MG PO ×2 (14:00→21:19)
--- NOTE | 2025-01-18 14:16 | CON.PCM.NE_ITS ---
Assessment and Plan: Neuro Assessment/Plan PARDEEP MARK is a 59 F with a past medical history of Epilepsy since 20 years, being evaluated by Teleneurology for breakthrough seizure and concern for stroke. MRI brain negative for acute stroke. CT angio with no large vessel occlusion. Recommend increasing dose of Depakote to 1gm BID and f/p with neurology in 6-8 weeks. Diagnosis: Breakthrough seizure I personally attended this patient and spent a total time of 35 minutes evaluating this patient including clinical assessment, review of chart, medical history imaging, and determining appropriate treatment and workup. HPI Consult Data Date of Consult: 01/18/25 HPI Narrative HPI Narrative: PARDEEP MARK, is a 59 F who presents with breakthrough seizure.Initially there was concern for new stroke however found to have baseline facial droop .She has history of epilepsy 20 years ago and history of left sided stroke. Patient of note was recently discharged 12/27/2024 following alcohol detoxification treatment. Patient reports only sips of rum earlier in the morning with early seizure awakening on the floor with loss of bowel and bladder noted to be extremely tremulous with tactile disturbances and nausea. She notes unfortunately she had been sober however she has been relapsing as her children are also alcoholics and drink heavily around her despite her intent on being sober. She notes that she has been since recent discharge drinking approximately fifth of rum daily. She does state that she has been compliant with her aspirin, statin, seizure medications. Workup in the ED included T97.9 Temporal, heart rate 85, BP 170/81, respiratory rate 22, 97% on room air with most recent repeat vitals heart rate 74, BP 156/77, respiratory rate 13, 98% on room air, CBC with WBC 7, hemoglobin 13.8, platelet 199 without marked shift, unremarkable coags, BMP pending upon request evaluation of patient as well as troponin series pending upon requested evaluation of patient, CT brain with chronic changes with no acute intracranial findings with low-density periventricular white matter suggestive of mild chronic vessel ischemic changes with an old lacunar infarct in the head of the right caudate nucleus as well as a tiny lacunar in the insular cortex of the left temporal lobe, CTA head and neck with no acute intracranial aneurysms, malformations, stenoses or occlusions, EKG with SR with no acute evidence of ischemia with incomplete RBBB. Telemetry neurology evaluation given stroke alert transition by Dr. Manfred with recommendation against tenecteplase given unclear onset, recent seizure history and alcohol abuse with continued evaluation recommended. In the ED patient ministered 1 L normal saline, Ativan 1 mg p.o. x 1, Zofran 4 mg IV x 1. [facility] Medical History Acute stroke due to occlusion of left middle cerebral artery Right sided weakness Anxiety and depression Alcohol abuse Amputation of leg Seizures Substance abuse Opioid use disorder History of drug overdose Unilateral above knee amputation Seizures Hyperlipidemia Home Medications ?Medication ?Instructions ?Recorded ?Last Taken ?Type aspirin 81 mg tablet,delayed 81 mg PO DAILY heart heal th 05/20/18 07/17/24 History release atorvastatin 40 mg tablet 40 mg PO DAILY 12/26/2301/05 History buprenorphine 8 mg-naloxone 2 mg 2 tab sublingual GEETA Y 12/26/23 01/17/25 History sublingual tablet escitalopram oxalate 10 mg tablet 10 mg PO DAILY 07/1701/17/25 History divalproex 500 mg tablet,delayed 1,000 mg PO BID Seizu re disorder 01/17/25 01/17/25 History release multivitamin (Daily Multi-Vitamin 1 tab PO DAILY 01/1701/16/25 History tablet) Allergy/AdvReac Type Severity Reaction Status Date / Time metoclopramide HCl (From Allergy shaking Verified 12/22/24 12:28 Reglan) prochlorperazine (From Allergy Hives Verified 12/22/24 12:28 Compazine) promethazine (From Phenergan) Allergy Hives Verified 12/22/24 12:28 Family History Mother Dementia CVA (cerebral vascular accident) Myocardial infarction Father , in his 40s. Heart disease Hypercholesteremia CAD (coronary artery disease) Myocardial infarction Surgical History History of surgery on lower extremity History of carpal tunnel release History of hysterectomy History of cholecystectomy S/P appendectomy H/O wrist surgery Social History (Updated 01/17/25 @ 13:[address] Mona Moore MD) household members: none Smoking Status: Never smoker alcohol intake: current alcohol intake frequency: 3 or more drinks per day Alcohol type: hard liquor details: 07/18 rum daily. substance use type: other details: Former, on suboxone. caffeine: No do you feel safe at home: Yes Vital Signs Vital Signs Vital Signs: 01/17/25 17:30 01/17/25 20:00 01/17/25 22:00 Temperature 97.9 F Temperature Source Temporal Pulse Rate 88 Pulse Strength Normal (2+) Respiratory Rate 16 Respiratory Effort Normal Non-Labored Respiratory Depth Normal Respiratory Pattern Normal Blood Pressure 138/82 H Blood Pressure Mean 100 Blood Pressure Source Monitor Blood Pressure Position Semi-Fowlers Blood Pressure Location Left Arm Pulse Ox 97 Oxygen Delivery Method Room Air Room Air 01/17/25 22:14 01/18/25 00:00 01/18/25 03:30 Temperature 97.9 F 97.8 F 98.2 F Temperature Source Oral Oral Oral Pulse Rate 75 68 75 Pulse Strength Respiratory Rate 16 16 16 Respiratory Effort Respiratory Depth Respiratory Pattern Blood Pressure 111/67 124/90 H 140/76 H Blood Pressure Mean 81 101 97 Blood Pressure Source Monitor Monitor Monitor Blood Pressure Position Semi-Fowlers Semi-Fowlers Semi-Fowlers Blood Pressure Location Left Arm Left Forearm Left Forearm Pulse Ox 95 97 96 Oxygen Delivery Method Room Air Room Air Room Air 01/18/25 03:30 01/18/25 07:00 01/18/25 07:47 Temperature 98.5 F Temperature Source Oral Pulse Rate 75 Pulse Strength Respiratory Rate 16 Respiratory Effort Normal Non-Labored Respiratory Depth Normal Respiratory Pattern Normal Blood Pressure 131/71 H Blood Pressure Mean 91 Blood Pressure Source Monitor Blood Pressure Position Semi-Fowlers Blood Pressure Location Left Forearm Pulse Ox 96 Oxygen Delivery Method Room Air Room Air Room Air 01/18/25 10:34 01/18/25 10:40 Temperature 98.1 F Temperature Source Oral Pulse Rate 70 Pulse Strength Respiratory Rate 17 Respiratory Effort Respiratory Depth Respiratory Pattern Blood Pressure 121/58 H Blood Pressure Mean 79 Blood Pressure Source Manual Blood Pressure Position Semi-Fowlers Blood Pressure Location Left Forearm Pulse Ox 95 Oxygen Delivery Method Room Air Room Air Weight Weight: 91.2 kg Body Mass Index (BMI) 35.6 Physical Exam Psych Psych Narrative: -? General: Laying comfortably in bed; in no acute distress. -? HENT: Normal oropharynx and mucosa. Normal external appearance of ears and nose. Exophthalmos. -? Neck: Supple, no pain or tenderness -? CV:? No peripheral edema. -? Pulmonary:? Normal respiratory effort. -? Ext: No cyanosis, edema, or deformity -? Skin: No rash. Normal palpation of skin.? -? Musculoskeletal: full range of motion; no joint tenderness. Normal digits and nails by inspection. No clubbing. -? NEURO: -? Mental Status: The patient was alert and oriented to time, place, and person. Normal recent/remote memory, concentration, and general fund of knowledge. -? Language: speech is fluent.? Naming, repetition, fluency, and comprehension intact. -? Cranial Nerves: PERRL 3 mm/brisk. EOMI, visual culp full, no facial asymmetry, facial sensation intact, hearing intact, tongue midline, no evidence of atrophy or fibrillations. As performed by the nurse Sternocleidomastoid and trapezius were equally strong. Soft palate raises equally, no uvular deviations -? Motor: UE5/5,RLE 5/5 3 l l -?? -? Sensation- DECREASE sensation involving right arm -? Coordination: No dysmetria on [id number], finger follow finger or [id number]. -? Gait- Gait initiation was normal. Narrow base with good heel strike and stride length was observed during ambulation. Turns were in stride. Patient was able to walk normally in tandem. Romberg was normal. Lab / Micro Data 01/18/25 05:33 01/18/25 05:33 Labs: Laboratory Results - last 24 hr 01/17/25 11:09: Phosphorus 2.5 L, Magnesium 1.9, Total Bilirubin 0.32, Direct Bilirubin 0.09, AST 116 H, ALT 115 H, Alkaline Phosphatase 142 H, Total Protein 7.2, Albumin 4.0, Globulin 3.3 01/17/25 11:10: Troponin T Hi Sens 2 Hr Cancelled, Troponin T Hi Sens 4Hr Cancelled 01/17/25 13:33: Valproic Acid 97, Ethyl Alcohol < 10.1 01/18/25 05:33: WBC 7.1, RBC 3.68 L, Hgb 12.1, Hct 36.2 L, MCV 98.4, MCH 32.9 H, MCHC 33.4, RDW Std Deviation 45.7 H, RDW Coeff of Adilia 12.7, Plt Count 169, MPV 10.0, Immature Gran % (Auto) 0.300, Neut % (Auto) 50.0, Lymph % (Auto) 33.4, M tina % (Auto) 11.3 H, Eos % (Auto) 4.2, Baso % (Auto) 0.8, Absolute Neuts (auto) 3.6, Absolute Lymphs (auto) 2.37, Nucleated RBC % 0, Sodium 142, Potassium 3.6, Chloride 104, Carbon Dioxide 27.3, Anion Gap 11, BUN 13, Creatinine 0.65 L, Estim Creat Clear Calc 98.69, Est GFR (MDRD) Non-Af 101, BUN/Creatinine Ratio 20.6 H, Glucose 107 H, Hemoglobin A1c 5.6, Calcium 8.9, Total Bilirubin 0.36, A ST 56 H, ALT 72 H, Alkaline Phosphatase 111 H, Total Protein 5.9, Albumin 3.7, Globulin 2.2, Albumin/Globulin Ratio 1.6, Triglycerides 256 H, Cholesterol 144, LDL Cholesterol, Calc 61, VLDL Cholesterol 51 H, HDL Cholesterol 32 L, Cholesterol/HDL Ratio 4.49, TSH 2.370 Imaging Radiology Impression Brain MRI 01/17/25 13:47 IMPRESSION: No acute abnormality Reading Location: [facility] Active Medications Active Medications Active Medications: Current Medications Generic Name Dose Route Start Last Admin Trade Name Freq PRN Reason Stop Dose Admin Acetaminophen 650 mg 01/17/25 14:00 Acetaminophen 325 Mg Tablet PO Q4H PRN PRN Fever, pain 1-04/22 Al Hydroxide/Mg Hydroxide 30 ml 01/17/25 13:47 Mag Hydrox/Al Hydrox/Simeth 30 Ml Udc PO Q6H PRN PRN dyspesia Albuterol Sulfate 2.5 mg 01/17/25 13:47 Albuterol 2.5 Mg/3 Ml Vial.Neb. INHALATION Q2H PRN PRN Dyspnea, wheezing Aspirin 81 mg 01/18/25 08:00 01/18/25 10:40 Aspirin E.C. 81 Mg Tablet PO 81 mg BREAKFAST TABBY Administration Atorvastatin Calcium 40 mg 01/18/25 10:00 01/18/25 10:40 Atorvastatin Calcium 40 Mg Tablet PO 40 mg DAILY TABBY Administration Bisacodyl 10 mg 01/17/25 13:47 Bisacodyl 10 Mg Suppository RC DAILY PRN Constipation Buprenorphine HCl 16 mg 01/18/25 12:00 01/18/25 11:46 Buprenorphine Hcl 8 Mg Tab.Subl SL 16 mg DAILY TABBY Administration Clarify Med Order 1 each 01/17/25 15:00 01/18/25 14:01 Clarify Order NOTE Not Given CLARIFY TABBY Dicyclomine HCl 20 mg 01/17/25 14:00 Dicyclomine 10 Mg Capsule PO Q6H PRN PRN abdominal discomfort Divalproex Sodium 1,000 mg 01/17/25 14:00 01/18/25 10:41 Divalproex Sodium 250 Mg Tablet PO 1,000 mg BID TABBY Administration Enoxaparin Sodium 40 mg 01/18/25 10:00 01/18/25 10:47 Enoxaparin 40 Mg/0.4 Ml Syringe SC 40 mg DAILY TABBY Administration Escitalopram Oxalate 10 mg 01/18/25 10:00 01/18/25 10:40 Escitalopram Oxalate 10 Mg Tablet PO 10 mg DAILY TABBY Administration Folic Acid 1 mg 01/18/25 08:00 01/18/25 10:40 Folic Acid 1 Mg Tablet PO 1 mg DAILY@0800 TABBY Administration Gabapentin 300 mg 01/17/25 13:47 Gabapentin 300 Mg Capsule PO Q8H PRN PRN moderate to severe anxiety Hydroxyzine Pamoate 50 mg 01/17/25 14:00 01/18/25 14:00 Hydroxyzine Lety 25 Mg Capsule PO 50 mg Q4H PRN PRN Administration mild anxiety Sodium Chloride 250 mls @ 15 mls/hr 01/17/25 13:54 01/18/25 14:11 IV 15 mls/hr .[id number] PRN Infusion Additional IVPB Infusion Sodium Chloride 250 mls @ 15 mls/hr 01/17/25 13:54 IV .[id number] PRN Saline Flush Loperamide HCl 2 mg 01/17/25 14:00 Loperamide 2 Mg Capsule PO Q4H PRN PRN DIARRHEA/LOOSE STOOLS Lorazepam 2 mg 01/17/25 14:00 Lorazepam 2 Mg/Ml Wch Syringe IV UD PRN CIWA score >/=15. Protocol Lorazepam 2 mg 01/17/25 14:00 Lorazepam 2 Mg/Ml Wch Syringe IV Q2H PRN PRN CIWA score > 8 but <15 Protocol Lorazepam 2 mg 01/17/25 13:47 Lorazepam 1 Mg Tablet PO UD PRN CIWA score >/=15. Protocol Lorazepam 2 mg 01/17/25 13:47 01/17/25 22:20 Lorazepam 1 Mg Tablet PO 2 mg Q2H PRN PRN Administration CIWA score > 8 but <15 Protocol Multivitamins/Minerals 1 tablet 01/18/25 08:00 01/18/25 10:40 Multivitamins,Ther W-Minerals Tablet PO 1 tablet BREAKFAST TABBY Administration Ondansetron HCl 4 mg 01/17/25 13:47 01/18/25 14:00 Ondansetron 4 Mg/2 Ml Vial IV 4 mg Q8H PRN PRN Administration NAUSEA/VOMITING Phenobarbital 97.2 mg 01/17/25 15:00 01/18/25 10:41 Phenobarbital 32.4 Mg Tablet PO 01/21/25 22:59 97.2 mg Q4H TABBY Administration Taper Senna 2 tablet 01/17/25 22:00 Senna Tablet PO QHS PRN Constipation Sodium Chloride 10 - 40 ml 01/17/25 13:54 01/18/25 14:00 0.9% Saline Lock 10 Ml Syringe IV 10 ml UD PRN Administration SALINE FLUSH Thiamine HCl 100 mg 01/18/25 08:00 01/18/25 10:39 Thiamine Hydrochloride 100 Mg Tablet PO 100 mg DAILYCM TABBY Administration Trazodone HCl 100 mg 01/17/25 22:00 Trazodone 100 Mg Tablet PO QHS PRN INSOMNIA NIHSS NIHSS Nursing Documentation NIHSS Nursing Documentation: NIHSS: Ischemic Stroke/TIA Start: 01/17/25 13:47 Text: For PCU Patients: NIH and Neuro Check every 4 Status: Complete hours, PRN and with change in RN caregiver. Freq: [id number] Protocol: Activity Type Activity Date Activity User E-sign Co-sign Detail Recorded Client Recorded Date Recorded By Document 01/17/25 17:30 ML [id number] 01/17/25 18:10 ML 01/17/25 17:30 NIH Stroke Scale [NIHSS] A score of 0 is normal or asymptomatic . Total possible score is 42. Inpatient: RN or Physician to activate a stroke alert for onset of new stroke symptoms or with NIHSS increase >/= 3 points. Following change in neurological status, NIHSS will be performed per physician order or more frequently PRN. -1a. Level of Consciousness 0 - Alert; keenly responsive -1b. LOC Questions 0 - Answers BOTH questions correctly -1c. LOC Commands 0 - Performs BOTH tasks correctly -2. Best Gaze 0 - Normal -3. Visual 1 - Partial hemianopia -4. Facial Palsy 1 - Minor paralysis ( flattened nasolabial fold , asymmetry on smiling) -5a. Left Arm 0 - No drift; arm holds 90 ( or 45) degrees for full 10 seconds -5b. Right Arm 0 - No drift; arm holds 90 ( or 45) degrees for full 10 seconds -6a. Left Leg UN - Amputation or joint fusion, explain : -'UN' explanation amp. -6b. Right Leg 1 - Drift; leg falls by the end of 5- seconds, but does not hit bed -7. Limb Ataxia 0 - Absent -8. Sensory 1 - Mild-to- moderate sensory loss; -9. Best Language 0 - No aphasia; normal -10. Dysarthria 1 = Mild-to- moderate dysarthria; -11. Extinction and Inattention 0 - No abnormality -Total 5 Query Text:A score of 0 is normal or asymptomatic. Total possible score is 42 . ED: Notify Physician for NIHSS increase by > / = 3 points. Inpatient: RN or Physician to activate a stroke alert for NIHSS increase of > / = 3 points. Coma Scale [Assess] -Eye Opening Spontaneous -Motor Obeys Commands -Verbal Oriented [Total] -Coma Scale Total 15
[2025-01-19] VITALS (7 sets, daily range): BP systolic 102–119; BP diastolic 60–70; PULSE 65–83; RESP 16–18; TEMP 35.8–36.9; O2SAT 92–98; BMI 34.7
--- NOTE | 2025-01-19 06:53 | PCM.PN.HOSP ---
Reason for Visit Reason for Visit: Diagnoses Alcohol use, unspecified with withdrawal, unspecified (01/17/25) Facial weakness (01/17/25) Unspecified convulsions (01/17/25) Subjective Subjective Patient with no acute events overnight per self per nursing report. She notes feeling less tremulous than the day prior. She also notes feeling improved as she was restarted day prior in the morning on buprenorphine which she takes chronically. Patient working with physical therapy who recommended usage also the wheelchair to continue to work on transfers to which patient is amenable. Patient denies fevers, chills, nausea, emesis, abdominal pain, chest pain or dyspnea. Objective Data Objective Data Vital Signs: Vital Signs Temp Pulse Resp BP Pulse Ox O2 Del Method O2 Flow Rate 96.5 F L 65 16 102/66 94 Nasal Cannula 2 01/19/25 06:25 01/19/25 06:25 01/19/25 06:25 01/19/25 06:25 01/19/25 06:25 01/19/25 06:25 01/19/25 06:25 Oxygen Flow Rate (L/min) 2 Oxygen Delivery Method Nasal Cannula Weight: 196 lb 3.382 oz Body Mass Index (BMI) 34.7 Intake & Output: Intake and Output for Last 24 Hours 01/17/25 01/18/25 01/19/25 23:59 23:59 23:59 Intake Total 1240 / 1240 1271.75 / 1271.75 Output Total 0 / 250 850 / 850 Balance 1240 / 990 421.75 / 421.75 Lab / Micro Data 01/18/25 05:33 01/18/25 05:33 Labs: Laboratory Results - last 24 hr 01/18/25 05:33: Sodium 142, Potassium 3.6, Chloride 104, Carbon Dioxide 27.3, Anion Gap 11, BUN 13, Creatinine 0.65 L, Estim Creat Clear Calc 98.69, Est GFR (MDRD) Non-Af 101, BUN/Creatinine Ratio 20.6 H, Glucose 107 H, Hemoglobin A1c 5.6, Calcium 8.9, Total Bilirubin 0.36, AST 56 H, ALT 72 H, Alkaline Phosphatase 111 H, Total Protein 5.9, Albumin 3.7, Globulin 2.2, Albumin/Globulin Ratio 1.6, Triglycerides 256 H, Cholesterol 144, LDL Cholesterol, Calc 61, VLDL Cholesterol 51 H, HDL Cholesterol 32 L, Cholesterol/HDL Ratio 4.49, TSH 2.370 Radiography Diagnostic Testing: Radiology Impression Echocardiogram 01/17/25 13:47 Interpretation Summary Normal LV size. Left ventricular systolic function is normal. The left ventricular ejection fraction is 60 %. Bubble contrast study is negative for PFO/ASD. Mild tricuspid valve insufficiency. Ordering Physician: Mona Moore Referring Physician: Issac Karimi MD Performed By: Beverley Lynn RDCS Physical Exam Narrative Physical Examination: General: Awake, alert, oriented x 3, cooperative, seated upright in the PCU bed. Skin: Normal color, normal turgor, no icterus, no cyanosis except occasional stage ecchymoses, abrasion. HEENT: AT/NC, EOMI, PERRLA, MMM, persistent stable mild right-sided nasolabial flattening and small droop, corrects with smiling, no tongue deviation, suspect chronic from previous stroke. Lungs: CTA bilaterally, moderate effort, mild decrease BL bases, no rales, ronchi or wheezing. Heart: Regular rate and rhythm; no gallop, rub audible. Abdomen: Soft, obese, NTTP, normal BS, no obvious distention. 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 Neurological: Patient awake, alert, oriented as noted, cognitive function intact; pupils equally reactive to light and accommodation, cranial nerves grossly normal, moving both upper and right lower extremity, status post left lower extremity amputation at the pelvis, sensation intact, no significant noted tremulousness, appears improved. Psychiatric: Affect appears improved, normal, no obvious significant withdrawal symptoms, no acute evidence of depressive or anxiety feelings but does have underlying history, denies any suicidal ideation. Assessment & Plan Assessment/Plan (1) Alcohol withdrawal: (2) Seizure: (3) Facial droop: PLAN: Plan The patient is a 59 y/o F w/ PMHx: Obesity, Polysubstance abuse (Opiate on suboxone, EtOH abuse) history per chart report, Anxiety and Depression, HLD, Seizure disorder, Hx CVA (L MCA chart reported) w/ previous chart history of R sided chronic hemiplegia, s/p Prior Trauma s/p LLE amputation who presents to the [facility] ED on 01/17/25 with history of concern for possible seizure on morning day of presentation with last drink the day prior in the a.m. with concern for withdrawal seizures prompting ED evaluation with request for detoxification with onset of incidentally noted right-sided facial droop in the ED with stroke alert initiated. #1. New onset right-sided facial droop, right-sided paresthesias, mild right lower extremity drift concerning for CVA/TIA with history of previous CVA with prior right-sided hemiplegia since resolved (denies any ongoing deficits in previous stroke), RULED OUT ACUTE CVA: Admitted to PCU, MRI of the brain with no acute stroke thus facial changes possibly from previous, echocardiogram with normal LV size, LV systolic function normal, LVEF of 60%, bubble contrast again negative, mild tricuspid valve insufficiency., PT/OT/Speech/Nutrition evaluation per protocol. BP has remained appropriate without any hypertensive regimen. Will maintain on asa, statin. Magnesium 1.9, TSH 2.370. FLP with triglyceride 256, total cholesterol 144, LDL 61, VLDL 51, HDL 32, hemoglobin A1c 5.6%. Will maintain on fall and aspiration precautions. Neurology has signed off given patient clinical improvement and stroke rule out. #2. Acute EtOH Withdrawal with concern for alcohol withdrawal associated seizure with history of previous similar presentation: Given interest in sobriety, initiated and continued on protocol with taper course of Phenobarbital, as needed gabapentin, Catapres, Bentyl, Vistaril, IV fluids, IV antiemetics, Tylenol as needed for pain. Will consult Case management for assistance for transition to next level of rehabilitation care. Mag 1.9, phosphorus mildly decreased 2.5 with supplementation administered. Maintain on CIWA protocol concurrently. Will maintain on antiepileptic medication. #3. Complex partial seizures w/ recent acute EtOH withdrawal seizure as noted #2: Valproic acid level 97 thus within range and patient does note being compliant with his medications. 01/17/2025 administered dose x 1 given presentation. Will continue treatment of alcohol withdrawal as likely contributing as noted above. Given patient has been clinically improving and on phenobarbital taper would de-escalate off seizure precautions at this time. #4. Elevated BP without hypertensive diagnosis: BP elevated above goal, improved without intervention, remains appropriately within range. #5. History of polysubstance abuse with opiate dependence: Noted be in remission for several years, reports continued clean status, UDS obtained with noted presumptive positive buprenorphine, continue Suboxone regimen. #6. History of previous left lower extremity MRSA infection status post left lower extremity amputation: Remote history of left lower extremity amputation with significant MRSA wound history, usually uses crutches and wheelchair, PT/OT consulted as noted. #7. Anxiety and depression: Initial concerns upon presentation with recent intoxication of suicidal ideation and but now the patient is more alert and interactive she denies any suicidal aviation and does admit to anxiety and depression ongoing but no intention of self-harm. Suicide precautions discontinued in the ED. #8. Hyperlipidemia: Continue home statin regimen. AM FLP obtained as noted. #9. DVT prophylaxis: Lovenox. Charges/Coding Visit Charges Inpatient E&M: 39672 Subs Hosp L2 NIHSS NIHSS Nursing Documentation NIHSS Nursing Documentation: NIHSS: Ischemic Stroke/TIA Start: 01/17/25 13:47 Text: For PCU Patients: NIH and Neuro Check every 4 Status: Complete hours, PRN and with change in RN caregiver. Freq: [id number] Protocol: Activity Type Activity Date Activity User E-sign Co-sign Detail Recorded Client Recorded Date Recorded By Document 01/17/25 17:30 ML [id number] 01/17/25 18:10 ML 01/17/25 17:30 NIH Stroke Scale [NIHSS] A score of 0 is normal or asymptomatic . Total possible score is 42. Inpatient: RN or Physician to activate a stroke alert for onset of new stroke symptoms or with NIHSS increase >/= 3 points. Following change in neurological status, NIHSS will be performed per physician order or more frequently PRN. -1a. Level of Consciousness 0 - Alert; keenly responsive -1b. LOC Questions 0 - Answers BOTH questions correctly -1c. LOC Commands 0 - Performs BOTH tasks correctly -2. Best Gaze 0 - Normal -3. Visual 1 - Partial hemianopia -4. Facial Palsy 1 - Minor paralysis ( flattened nasolabial fold , asymmetry on smiling) -5a. Left Arm 0 - No drift; arm holds 90 ( or 45) degrees for full 10 seconds -5b. Right Arm 0 - No drift; arm holds 90 ( or 45) degrees for full 10 seconds -6a. Left Leg UN - Amputation or joint fusion, explain : -'UN' explanation amp. -6b. Right Leg 1 - Drift; leg falls by the end of 5- seconds, but does not hit bed -7. Limb Ataxia 0 - Absent -8. Sensory 1 - Mild-to- moderate sensory loss; -9. Best Language 0 - No aphasia; normal -10. Dysarthria 1 = Mild-to- moderate dysarthria; -11. Extinction and Inattention 0 - No abnormality -Total 5 Query Text:A score of 0 is normal or asymptomatic. Total possible score is 42 . ED: Notify Physician for NIHSS increase by > / = 3 points. Inpatient: RN or Physician to activate a stroke alert for NIHSS increase of > / = 3 points. Coma Scale [Assess] -Eye Opening Spontaneous -Motor Obeys Commands -Verbal Oriented [Total] -Coma Scale Total 15
[2025-01-19] MEDS: Thiamine Hydrochloride 100 MG Tablet PO (08:13)
[2025-01-19] MEDS: Aspirin E.C. 81 MG Tablet PO (08:13)
[2025-01-19] MEDS: hydrOXYzine PAM 25 MG Capsule 50 MG PO ×2 (11:30→18:35)
--- OUTSIDE RECORDS SUMMARY | 2025-01-20 01:27 | XMS RPT_ITS | CCD ---
Author Organization [facility] InformFormerly [facility] Care Team Providers Care Stunner Name Role Phone Unavailable Unavailable Unavailable TAMMY KARIMI Primary Care Unavailabl e WINSTON AGUILAR Admitting Unavailable OVI ANDERSON Attending Unavailable BARAM POSADAS Consulting Unavailab TAMMY Andrade Primary Care Unavailabl e VENKATESH TURNER Attending Unavailable TAMMY KARIMI Primary Care Unavailabl e ALONA BA Attending Unavailabl TAMMY Boucher Primary Care Unavailabl e AMANDA GUILLORY Consulting Unavailable POLO SILVESTRE Admitting Unavailable JORDY BUCHANAN Attending Unavailable ZAIDA AQUINO Primary Care Unavailable RONDA SIMMONS Admitting Unavailable RONDA SIMMONS Attending Unavailable VAN BARTH Consulting Unavailable ZAIDA CALLOWAY Attending Unavailable TAMMY KARIMI Primary Care Unavailabl e MARCELO SCHNEIDER Consulting Unavaila MOOK Burnette II Admitting Unavailable TAMMY KARIMI Primary Care Unavailabl e CHETAN FITZGERALD Consulting Unavailable YOLA BOYD Attending Unavail able CECELIA BARAKAT Admitting Unavailable RANI ACOSTA Attending Unavail able PHYSICIAN JAYE Primary Care Unavailable VADIM MARK Primary Care Unavailable RONDA BARRAGAN Admitting Unava ilGILLIAN Hernandez Attending Unavailable BRIAN MONCADA Consulting Unavailable YANDEL FONTANA Attending Unavail able VADIM MARK Primary Care Unavailable Tammy Karimi MD Primary Care Provider MAGGI RUTLEDGE Referring Unavailable CONSULT, ADDICTION MEDICINE Consulting Unav ailTAMMY James Primary Care Unavailabl TODD Kaiser Attending Unavailable TODD MUHAMMAD Admitting Unavailable ANN JONES Attending Unavailable TAMMY KARIMI Primary Care UnavailCAROL Lyons Attending Unavailable [facility] Primary Care UnavailJORDY Razo Attending Unavailwei KARIMI MD, DR MUNOZ Primary Care Physician Alicia Laws Unavailable Unavailable HERLINDA ESPINOSA, DR MUNOZ Primary Care SARWAT Blake MD Attending Unavailwei KARIMI MD, DR MUNOZ Primary Care Danielle ONEIL MD, JOSIE Admitting Unavailable WERO HERNANDEZ DO Attending Unavailable PEDRO ESPINOSA, DR ROGER Myers Consulting Unavailwei KARIMI MD, DR MUNOZ Consulting Danielle hughes Physician, No Pcp Primary Care Provider UnavailNIDA Escobar Attending Unavailable PHYSICIAN, NO PCP Primary Care Unavailable LcLevi dumont Referring Unavailable Levi Platt Attending Unavailable [facility] Primary Care Unavailable LcLevi Referring Unavailable Levi Platt Attending Unavailable [facility] Primary Care Unavailable [facility] Referring Unavailable [facility] Care Unavailable Sea Zamarripa Attending Unavailable Alfredo Sanchez Attending Unavailable Jt Morales Consulting Unavailable Jt Morales Admitting Unavailable [facility] Care Unavailable Alfredo Sanchez Consulting Unavailable [facility] Care Unavailable Yola Garza Admitting Unavailable Yola Garza Attending Unavailable Yola Garza Consulting Unavailable [facility] Primary Care Unavailable Yola Garza Attending Unavailable Jt Morales Attending Unavailable Jt Morales Consulting Unavailable Alfredo Sanchez Attending Unavailable [facility] Care Unavailable Jt Morales Admitting [facility] Yola Garza Admitting Unavailable Yola Garza Attending Unavailable [facility] Primary Care Unavailable Antonio Sidhu Attending Unavailable Allergies Allergy Classification Reported Allergen(s) Allergy Type Date of Onset Reaction(s) Facility (7 sources) Metoclopramide; Translations: [METOCLOPRAMIDE HCL] Drug Allergy 08-12-19 06 Itching, Rash [facility] Other [place] Repository (2 sources) Phenothiazine; Translations: [PHENOTHIAZINES] Propensity to adverse reactions to drug (disorder) 03-31-20 03 [facility] Repository (8 sources) Prochlorperazine; Translations: [PROCHLORPERAZINE] Drug Allergy 08-02-19 06 Hives [facility] Repository (13 sources) Promethazine; Translations: [PROMETHAZINE] Drug Allergy 08-02-19 06 Hives, Itching, Tremor (finding), Rash [facility] Repository (1 source) OTHER; Translations: [OTHER] Propensity to adverse reactions (disorder) 03-31-20 03 [facility] Repository (2 sources) Penicillins; Translations: [PENICILLINS] Propensity to adverse reactions to drug (disorder) 10-21-19 [facility] Repository (2 sources) Sulfonamides (Antibiotic); Translations: [SULFA (SULFONAMIDE ANTIBIOTICS)] Propensity to adverse reactions to drug (disorder) 10-21-19 23 [facility] Repository (3 sources) Metoclopramide; Translations: [METOCLOPRAMIDE] Drug Allergy 08-21-19 10 [facility] Repository (1 source) PROCHLORPERAZINE EDISYLATE; Translations: [PROCHLORPERAZINE EDISYLATE] Propensity to adverse reactions to drug (disorder) 08-21-19 10 [facility] Repository Medications Current Medications Medication Drug Class(es) Dates Sig (Normalized) Sig (Original) 8 hr acetaminophen 650 mg extended release oral tablet (2 sources) Start: 12-02-2023 acetaminophen 650 mg oral tablet, extended release Dose : 1,300 mg = 2 tab(s), Oral, q8h, PRN pain 1-6, 0 Refill(s) Start Date: 12/02/23 Status: Ordered Start: 05-09-2023 End: 05-13-2023 take 1 tablet by mouth every four hours as needed Acetaminophen (TYLENOL) tablet 325 mg Aluminum Hydroxide / Magnesium Hydroxide / Simethicone (1 source) Start: 12-02-2023 take 1 dose by mouth every four hours as needed Maalox Dose = 30 mL, Oral, q4h, PRN for indigestion Start Date: 12/02/23 Status: Ordered aspirin 81 mg chewable tablet (3 sources) Platelet Aggregation Inhibitor, Nonsteroidal Anti-inflammatory Drug Start: 12-05-2023 aspirin 81 mg oral tablet, chewable Dose : 81 mg = 1 tab(s), Oral, qDay, # 30 tab(s), 0 Refill(s), Pharmacy: [facility] #[id number], 160, cm, 12/02/23 22:13:00 EDT, Height, kg, 12/02/23 22:13:00 EDT, Dosing Weight Start Date: 12/05/23 Status: Ordered Start: 05-09-2023 End: 08-12-2023 aspirin 81 MG Chew Tab chewa ble tablet Chew and swallow 1 tablet daily. 30 tablet 2 05/14/2023 08/12/2023 Active atorvastatin 40 mg oral tablet (3 sources) HMG-CoA Reductase Inhibitor Start: 12-05-2023 atorvastatin 40 mg oral tablet Dose : 40 mg = 1 tab(s), Oral, qDay, # 30 tab(s), 0 Refill(s), Pharmacy: [facility] #[id number], 160, cm, 12/02/23 22:13:00 EDT, Height, kg, 12/02/23 22:13:00 EDT, Dosing Weight Start Date: 12/05/23 Status: Ordered Start: 05-12-2023 End: 08-11-2023 take 1 tablet by mouth at bedtime Atorvastatin 40 MG tablet Take 1 tablet by mouth at bedtime. 30 tablet 2 05/13/2023 08/11/2023 Active buprenorphine 8 mg sublingual tablet (3 sources) Partial Opioid Agonist Start: 12-05-2023 End: 12-15-2023 buprenorphine 8 mg sublingual tablet Dose : 8 mg = 1 tab(s), Sublingual, BID, # 20 tab(s), 0 Refill(s), Pharmacy: [facility] #[id number], Opiate addiction, 160, cm, 12/02/23 22:13:00 EDT, Height, 76.5, kg, 12/02/23 22:13:00 EDT, Dosing Weight Start Date: 12/05/23 Stop Date: 12/15/23 Status: Ordered Start: 05-13-2023 End: 05-13-2023 buprenorphine ER (SUBLOCADE) SQ injection 300 mg End: 05-09-2023 Buprenorphine HCl (SUBUTEX S L) Place under tongue. 0 05/09/2023 Discontinued (Medication Reconciliation (suppress cancel msg)) carBAMazepine (2 sources) Mood Stabilizer Start: 12-22-2005 take 1 dose by mouth once daily Tegretol XR Dose : 800 mg =, PO, Daily, 0 Refill(s), current med (Hx) Start Date: 12/22/05 Status: Ordered End: 05-09-2023 take 1 tablet by mouth twice daily carBAMazepine XR 400 MG Tab SR 12 HR Take 400 mg by mouth 2 times daily. 0 05/09/2023 Discontinued (Medication Reconciliation (suppress cancel msg)) carvedilol 6.25 mg oral tablet (2 sources) alpha-Adrenergic Tian, beta-Adrenergic Tian Start: 05-09-2023 End: 08-11-2023 take 1 tablet by mouth every twelve hours carveDILOL 6.25 MG tablet Take 1 tablet by mouth every 12 hours. 60 tablet 2 05/13/2023 08/11/2023 Active cephalexin 500 mg oral capsule (1 source) Cephalosporin Antibacterial Start: 12-01-2023 End: 12-08-2023 cephalexin 500 mg oral capsule Dose : 500 mg = 1 cap(s), Oral, BID, X 7 day(s), # 14 cap(s), 0 Refill(s), 12/08/23 4:01:00 PM EDT, 73.1 Start Date: 12/01/23 Stop Date: 12/08/23 Status: Ordered DULoxetine 60 mg delayed release oral capsule (4 sources) Serotonin and Norepinephrine Reuptake Inhibitor Start: 05-13-2023 End: 08-11-2023 take 1 capsule by mouth once daily DULoxetine [address] Particles capsule DR Take 1 capsule by mouth daily. 30 capsule 2 05/13/2023 08/11/2023 Active Start: 05-09-2023 End: 05-13-2023 DULoxetine (CYMBALTA) capsul e DR 90 mg Start: 09-17-2007 Cymbalta See I nstructions, PRN 30 MG IN AM AND 60 MG IN PM, 30 mg PO, 0 Refill(s), current med (Hx) Start Date: 09/17/07 Status: Ordered End: 05-13-2023 dul[address] Part icles capsule DR Take 90 mg by mouth daily. 0 05/13/2023 Discontinued (Reorder) hydrOXYzine hydrochloride 50 mg oral tablet (1 source) Antihistamine Start: 12-05-2023 End: 12-19-2023 hydrOXYzine hydrochloride 50 mg oral tablet Dose : 50 mg = 1 tab(s), Oral, q6h, PRN as needed for anxiety, X 14 day(s), # 20 tab(s), 0 Refill(s), 12/19/23 2:40:00 PM EDT, Pharmacy: [facility] #[id number], 160, cm, 12/02/23 22:13:00 EDT, Height, kg, 12/02/23 22:13:00 EDT, Dosing Weight Start Date: 12/05/23 Stop Date: 12/19/23 Status: Ordered magnesium hydroxide 80 mg/ml oral suspension (1 source) Start: 12-02-2023 magnesium hydroxide 8% oral suspension 2.4 gram(s) Dose = 30 mL, Oral, qDay Start Date: 12/02/23 Status: Ordered methadone hydrochloride 10 mg oral tablet (1 source) Opioid Agonist Start: 09-17-2007 take 1 dose by mouth once daily methadone Dose : 10 mg =, PO, Daily, 0 Refill(s), current med (Hx) Start Date: 09/17/07 Status: Ordered minocycline 100 mg oral tablet (1 source) Tetracycline-class Drug Start: 09-17-2007 take 1 dose by mouth twice daily minocycline Dose : 100 mg =, PO, BID, 0 Refill(s), current med (Hx) Start Date: 09/17/07 Status: Ordered Multiple Vitamin (MULTIVITAMIN) Cap (1 source) take 1 capsule by mouth once daily Multiple Vitamin (MULTIVITAMIN) Cap Take 1 capsule by mouth daily. 0 Active multivitamin with fluoride Vitamin A, D and C with Fluoride 0.25 mg/0.6 mL oral liquid (1 source) Start: 2006 multivitamin with fluoride Vitamin A, D and C with Fluoride 0.25 mg/0.6 mL oral liquid Oral, Daily, 0 Refill(s), current med (Hx) Start Date: 05/05/06 Status: Ordered naloxone hydrochloride 40 mg/ml nasal spray (1 source) Opioid Antagonist Start: 05-11-2023 End: 05-10-2024 naloxone 4 MG/0.1ML 1 spray by Nasal route As directed PRN for Opioid Reversal. Byron into the nose as directed. Call 911. If no response in 2 minutes use a new nasal spray in other nostril. Repeat until help arrives. 2 Each 0 05/11/2023 05/10/2024 Active 12 hr oxyCODONE hydrochloride 40 mg extended release oral tablet (1 source) Opioid Agonist Start: 09-17-2007 take 1 dose by mouth three times daily OxyContin Dose : 40 mg =, PO, TID, 0 Refill(s), current med (Hx) Start Date: 09/17/07 Status: Ordered Petrolatum (1 source) Start: 12-02-2023 petrolatum topical ointment Apply 1 blanka, Topical, TID, PRN dry skin, 79.3 Start Date: 12/02/23 Status: Ordered pregabalin 50 mg oral capsule (2 sources) Start: 2006 take 1 dose by mouth three times daily Lyrica Dose : 50 mg =, PO, TID, 0 Refill(s), current med (Hx) Start Date: 05/05/06 Status: Ordered End: 05-09-2023 pregabalin 100 MG Cap Take 1 50 mg by mouth daily. 0 05/09/2023 Discontinued (Medication Reconciliation (suppress cancel msg)) sulfamethoxazole 800 mg / trimethoprim 160 mg oral tablet (1 source) Dihydrofolate Reductase Inhibitor Antibacterial, Sulfonamide Antimicrobial Start: 12-05-2023 End: 12-08-2023 take 1 tablet by mouth twice daily Bactrim DS 800 mg-160 mg oral tablet 160 mg, Oral, BID, X 3 day(s), # 6 tab(s), 0 Refill(s), Pharmacy: [facility] #[id number], 160, cm, 12/02/23 22:13:00 EDT, Height, 76.5, kg, 12/02/23 22:13:00 EDT, Dosing Weight Start Date: 12/05/23 Stop Date: 12/08/23 Status: Ordered traZODone hydrochloride 50 mg oral tablet (1 source) Serotonin Reuptake Inhibitor Start: 12-02-2023 traZODone 50 mg oral tablet Dose : 50 mg = 1 tab(s), Oral, qHS, PRN Insomnia Start Date: 12/02/23 Status: Ordered divalproex sodium 250 mg delayed release oral tablet (4 sources) Mood Stabilizer, Anti-epileptic Agent Start: 12-05-2023 End: 01-04-2024 Depakote 250 mg oral delayed release tablet Dose : 750 mg = 3 tab(s), Oral, BID, # 180 tab(s), 0 Refill(s), Pharmacy: [id number], 160, cm, 12/02/23 22:13:00 EDT, Height, kg, 12/02/23 22:13:00 EDT, Dosing Weight Start Date: 12/05/23 Stop Date: 01/04/24 Status: Ordered Start: 05-13-2023 End: 08-11-2023 take 1 tablet by mouth twice daily Divalproex [address] Take 1 tablet by mouth 2 times daily. 60 tablet 2 05/13/2023 08/11/2023 Active Start: 05-13-2023 End: 05-13-2023 Divalproex (DEPAKOTE) tablet EC/DR 500 mg Start: 05-11-2023 End: 05-12-2023 Divalproex (DEPAKOTE) tablet EC/DR 250 mg Completed/Discontinued Medications Medication Drug Class(es) Dates Sig (Normalized) Sig (Original) buprenorphine 8 mg / naloxone 2 mg sublingual film (3 sources) Partial Opioid Agonist, Opioid Antagonist Start: 05-09-2023 End: 05-13-2023 buprenorphine 8 mg/naloxone 2 mg (SUBOXONE) SL film 1 strip End: 05-13-2023 buprenorphine 8 mg/naloxone 2 mg (SUBOXONE) SL film Place 1 strip under tongue every 12 hours. 0 05/13/2023 Discontinued (Stop Taking at Discharge) calcium chloride 0.0014 meq/ml / potassium chloride 0.004 meq/ml / sodium chloride 0.103 meq/ml / sodium lactate 0.028 meq/ml injectable solution (1 source) Start: 05-10-2023 End: 05-10-2023 Lactated ringers IV solution 500 mL 0.4 ml enoxaparin sodium 100 mg/ml prefilled syringe (1 source) Low Molecular Weight Heparin Start: 05-09-2023 End: 05-13-2023 Enoxaparin Sodium (LOVENOX) injection 40 mg hydrALAZINE (APRESOLINE) injection 10 mg (1 source) Start: 05-09-2023 End: 05-13-2023 take 10 mg intravenously every hour as needed hydrALAZINE (APRESOLINE) injection 10 mg hydrocortisone 25 mg/ml topical cream (1 source) Corticosteroid Start: 05-11-2023 End: 05-13-2023 hydrocortisone 2.5 % cream 1 Application iohexol (OMNIPAQUE) 350 MG/ML injection 1-171 mL (1 source) Start: 05-08-2023 End: 05-08-2023 iohexol (OMNIPAQUE) 350 MG/ML injection 1-171 mL 1 ml ketorolac tromethamine 15 mg/ml cartridge (1 source) Nonsteroidal Anti-inflammatory Drug, Cyclooxygenase Inhibitor Start: 05-10-2023 End: 05-10-2023 Ketorolac (TORADOL) injection 15 mg Labetalol (NORMODYNE) injection 10 mg (1 source) Start: 05-09-2023 End: 05-13-2023 take 10 mg intravenously every hour as needed Labetalol (NORMODYNE) injection 10 mg levETIRAcetam 500 mg oral tablet (2 sources) Start: 05-09-2023 End: 05-11-2023 levETIRAcetam (KEPPRA) tablet 1,000 mg End: 05-13-2023 take 1 tablet by mouth twice daily levetiracetam (Keppra) 750 MG tablet Take 1 tablet by mouth 2 times daily. 0 05/13/2023 Discontinued (Stop Taking at Discharge) levETIRAcetam (KEPPRA) 4,500 mg in Sodium chloride 0.9%, with overfill 155 mL (total volume) IVPB (1 source) Start: 05-09-2023 End: 05-09-2023 levETIRAcetam (KEPPRA) 4,500 mg in Sodium chloride 0.9%, with overfill 155 mL (total volume) IVPB 100 ml magnesium sulfate 10 mg/ml injection (1 source) Start: 05-10-2023 End: 05-10-2023 Magnesium sulfate 1 g in dextrose 5% 100 mL premix IVPB melatonin 3 mg oral tablet (3 sources) Start: 05-10-2023 End: 10-28-2023 Melatonin tablet 6 mg Start: 05-10-2023 End: 05-13-2023 Melatonin tablet 3 mg End: 05-13-2023 take 2 capsules by mouth at bedtime Melatonin 10 MG capsule Take 2 capsules by mouth at bedtime. 0 05/13/2023 Discontinued (Stop Taking at Discharge) 2 ml ondansetron 2 mg/ml injection (1 source) Serotonin-3 Receptor Antagonist Start: 05-09-2023 End: 05-13-2023 take 4 mg intravenously every eight hours as needed Ondansetron 4mg/2ml (ZOFRAN) injection 4 mg Polyethylene glycol (MIRALAX) packet 17 g (1 source) Start: 05-09-2023 End: 05-13-2023 Polyethylene glycol (MIRALAX) packet 17 g QUEtiapine 100 mg oral tablet (1 source) Atypical Antipsychotic End: 05-09-2023 take 1 tablet by mouth twice daily QUEtiapine (SEROQUEL) 100 MG Tab Take 100 mg by mouth 2 times daily. 0 05/09/2023 Discontinued (Medication Reconciliation (suppress cancel msg)) Senna Leaves (1 source) Start: 05-09-2023 End: 05-13-2023 Senna (SENOKOT) tablet 8.6 mg 20 ml sodium chloride 9 mg/ml injection (1 source) Start: 05-08-2023 End: 05-08-2023 Sodium chloride (PF) 0.9 % injection 1-100 mL Start: 05-08-2023 End: 05-08-2023 Sodium chloride (PF) 0.9 % i njection 1-100 mL Problems Active Problems Problem Classification Problem Date Documented Date Episodic/Chronic Acute cerebrovascular disease (3 sources) Cerebrovascular accident; Translations: [Cerebral infarction, unspecified] Onset: 05-09-2023 05-08-2023 Chronic Alcohol-related disorders (2 sources) Alcohol abuse, uncomplicated; Translations: [Alcohol dependence with withdrawal, uncomplicated] Onset: 08-26-2024 Chronic Cardiac dysrhythmias (2 sources) Tachycardia, unspecified; Translations: [Tachycardia, unspecified] Onset: 10-20-2022 Episodic Complications of surgical procedures or medical care (3 sources) Infection following a procedure, other surgical site, initial encounter; Translations: [Disruption of external operation (surgical) wound, not elsewhere classified, initial encounter] Onset: 07-24-2022 Episodic Diabetes mellitus without complication (2 sources) Hyperglycemia, unspecified; Translations: [Hyperglycemia, unspecified] Onset: 10-26-2022 Episodic Epilepsy; convulsions (1 source) Epilepsy, unspecified, not intractable, without status epilepticus; Translations: [Epilepsy, unspecified, not intractable, without status epilepticus] Onset: 07-28-2024 Chronic Malaise and fatigue (3 sources) Right hemiparesis; Translations: [Weakness] Onset: 05-09-2023 05-13-2023 Episodic Miscellaneous mental health disorders (2 sources) Conversion disorder with seizures or convulsions; Translations: [Conversion disorder with seizures or convulsions] Onset: 10-28-2022 Chronic Mood disorders (1 source) Mood disorders; Translations: [Depression, unspecified] Onset: 07-28-2024 Open wounds of extremities (1 source) 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, level unspecified, initial encounter; Translations: [Amputation of leg (HCC)] Onset: 12-28-2012 Chronic Other bone disease and musculoskeletal deformities (2 sources) Acquired absence of left hip joint; Translations: [Acquired absence of left hip joint] Onset: 10-07-2023 Chronic Other connective tissue disease (1 source) Pain in right arm; Translations: [Right arm pain] Onset: 10-14-2022 Episodic Other injuries and conditions due to external causes (2 sources) Other injury of unspecified body region, initial encounter; Translations: [Pain associated with wound] Onset: 08-15-2022 Episodic Other lower respiratory disease (2 sources) Hypoxemia; Translations: [Hypoxemia] Onset: 10-28-2022 Episodic Other nervous system disorders (1 source) Chronic pain due to trauma; Translations: [Chronic pain due to trauma] Onset: 10-05-2022 Chronic Other nervous system disorders (1 source) Phantom limb syndrome without pain; Translations: [Phantom limb syndrome without pain] Onset: 07-28-2024 Chronic Residual codes; unclassified (2 sources) Pain, unspecified; Translations: [Pain associated with wound] Onset: 07-24-2022 Episodic Residual codes; unclassified (1 source) Other specified postprocedural states; Translations: [Post-operative state] Onset: 10-04-2022 Episodic Residual codes; unclassified (5 sources) Transient alteration of awareness; Translations: [Transient alteration of awareness] Onset: 05-09-2023 05-13-2023 Episodic Skin and subcutaneous tissue infections (4 sources) Cellulitis of other sites; Translations: [Local infection of the skin and subcutaneous tissue, unspecified] Onset: 07-24-2022 Episodic Substance-related disorders (4 sources) Opioid dependence, uncomplicated; Translations: [Opioid dependence, in remission] Onset: 07-24-2022 Chronic Unclassified (1 source) Acidosis, unspecified; Translations: [Acidosis, unspecified] Onset: 10-20-2022 Unclassified (2 sources) New Patient; Translations: [New Patient] Onset: 10-07-2023 Unclassified (2 sources) 10/27/06 OR REVISIION AMPUTATION LEFT LEG DR MONTES DE OCA Onset: 10-27-2006 10-27-2006 Unclassified (2 sources) 05/07 Debridement Left leg stump Onset: 07-14-2005 05-07-2006 Unclassified (2 sources) 07/09/06 OR REVISION LEFT ABOVE KNEE AMPUTATION DR MONTES DE OCA Onset: 07-09-2006 07-09-2006 Unclassified (2 sources) 02/05/06 OR LEFT ABOVE THE KNEE AMPUTATION Onset: 02-05-2006 02-06-2006 Unclassified (2 sources) 04/02/06 OR DEBRIDEMENT AND CLOSURE LEFT ABOVE KNEE AMPUTATION DR MONTES DE OCA Onset: 04-02-2006 04-02-2006 Unclassified (2 sources) AKA Onset: 01-11-2006 2006 Unclassified (2 sources) arthotomy and irrigation Lt knee 01/22 Onset: 07-14-2005 01-22-2006 Unclassified (2 sources) infection left above the knee amputation Onset: 09-08-2006 09-09-2006 Unclassified (2 sources) left knee surgery inf Onset: 07-14-2005 01-20-2006 Unclassified (1 source) Alcohol abuse with withdrawal, unspecified; Translations: [Alcohol abuse with withdrawal, unspecified] Onset: 01-04-2025 Unclassified (1 source) Alcohol use, unspecified with withdrawal, uncomplicated; Translations: [Alcohol use, unspecified with withdrawal, uncomplicated] Onset: 07-21-2024 Unclassified (1 source) Poisoning by other synthetic narcotics, intentional self-harm, initial encounter; Translations: [Poisoning by other synthetic narcotics, intentional self-harm, initial encounter] Onset: 08-26-2024 Past or Other Problems Problem Classification Problem Date Documented Date Episodic/Chronic Crushing injury or internal injury (1 source) Crushing injury of right shoulder and upper arm, sequela; Translations: [Crushing injury of right shoulder and upper arm, sequela] Onset: 07-28-2024 Episodic Epilepsy; convulsions (9 sources) Unspecified convulsions; Translations: [Seizure] Onset: 10-20-2022 Episodic Other connective tissue disease (2 sources) Other specified soft tissue disorders; Translations: [Hand swelling] Onset: 07-24-2022 Episodic Other connective tissue disease (1 source) Nontraumatic compartment syndrome of right upper extremity; Translations: [Non-traumatic compartment syndrome of right upper extremity] Onset: 07-16-2022 Episodic Other injuries and conditions due to external causes (1 source) Traumatic compartment syndrome of right upper extremity, subsequent encounter; Translations: [Traumatic compartment syndrome of right upper extremity, subsequent encounter] Onset: 07-24-2022 Episodic Other injuries and conditions due to external causes (1 source) Traumatic compartment syndrome of unspecified upper extremity, initial encounter; Translations: [Compartment syndrome of forearm (HCC)] Onset: 07-24-2022 Episodic Other injuries and conditions due to external causes (1 source) Traumatic compartment syndrome of right upper extremity, initial encounter; Translations: [Traumatic compartment syndrome of right upper extremity, initial encounter (HCC)] Onset: 07-16-2022 Episodic Other nervous system disorders (2 sources) Other acute postprocedural pain; Translations: [Pain following surgery or procedure] Onset: 11-08-2009 Episodic Other nervous system disorders (1 source) Tremor, unspecified; Translations: [Tremor, unspecified] Onset: 07-28-2024 Episodic Other screening for suspected conditions (not mental disorders or infectious disease) (1 source) Abnormal electrocardiogram [ECG] [EKG]; Translations: [Prolonged Q-T interval on ECG] Onset: 07-24-2022 Episodic Poisoning by other medications and drugs (1 source) Poisoning by iminostilbenes, undetermined, subsequent encounter; Translations: [Poisoning by iminostilbenes, undetermined, subsequent encounter] Onset: 07-28-2024 Episodic Residual codes; unclassified (3 sources) Other specified personal risk factors, not elsewhere classified; Translations: [Other specified personal risk factors, not elsewhere classified] Onset: 10-26-2022 Episodic Residual codes; unclassified (1 source) Edema, unspecified; Translations: [Edema, unspecified] Onset: 08-26-2024 Episodic Septicemia (except in labor) (1 source) Sepsis, unspecified organism; Translations: [Sepsis without acute organ dysfunction, due to unspecified organism (HCC)] Onset: 07-24-2022 Episodic Unclassified (1 source) Acidosis, unspecified; Translations: [Acidosis, unspecified] Onset: 10-20-2022 Unclassified (1 source) Onset: 05-13-2023 05-13-2023 Results Test Name Value Interpretation Reference Range Facility Basic metabolic 2000 panelon 12-29-2024 Anion gap [Moles/Vol] 7 mmol/L 6 - 18 [facility] [email or web address] [facility] Calcium [Mass/Vol] 8.2 mg/dL Low 8.9 - 10. 3 mg/dL [facility] Chloride [Moles/Vol] 104 mmol/L 98 - 10 7 mmol/L [facility] CO2 [Moles/Vol] 31 mmol/L 22 - 32 mmol/L [facility] Creatinine [Mass/Vol] 0.53 mg/dL Low 0.60 - 1.30 mg/dL [facility] GFR/1.73 sq M.predicted among non-blacks MDRD (S/P/Bld) [Vol rate/Area] 106 mL/min/{1.73_m2} - [facility] Comment on above: Calculation based on the Chronic Kidney Disease Epidemiology Collaboration (CKD-EPI) equation refit without adjustment for race. Glucose [Mass/Vol] 128 mg/dL High 70 - 99 mg/dL [facility] Interpretation and review of laboratory results Abnormal [facility] Potassium [Moles/Vol] 3.7 mmol/L 3.6 - 5.1 mmol/L [facility] Sodium [Moles/Vol] 142 mmol/L 136 - 145 mmol/L [facility] Urea nitrogen [Mass/Vol] 12 mg/dL 8 - 20 mg/dL [facility] Urea nitrogen/Creatinine [Mass ratio] 22.6 mg/mg High 12.0 - 20.0 [facility] Anion gap [Moles/Vol] 7 mmol/L Normal 6-18 [facility] Comment on above: Performed By: #### 2 4321-2 #### [facility] [address] [place] [address] Calcium [Mass/Vol] 8.2 mg/dL Low 8.9-10.3 [facility] Comment on above: Performed By: #### 2 4321-2 #### [facility] [address] [place] [address] Chloride [Moles/Vol] 104 mmol/L Normal 98-107 [facility] Comment on above: Performed By: #### 2 4321-2 #### [facility] [address] [place] [address] CO2 [Moles/Vol] 31 mmol/L Normal 22-32 [facility] Comment on above: Performed By: #### 2 4321-2 #### [facility] [address] [place] [address] Creatinine [Mass/Vol] 0.53 mg/dL Low 0.60-1.30 [facility] Comment on above: Performed By: #### 2 4321-2 #### [facility] [address] [place] [address] GFR/1.73 sq M.predicted among non-blacks MDRD (S/P/Bld) [Vol rate/Area] 106 mL/min/{1.73_m2} Normal >=60 [facility] Comment on above: Result Comment: Calc ulation based on the Chronic Kidney Disease Epidemiology Collaboration (CKD-EPI) equation refit without adjustment for race. Performed By: #### 2 4321-2 #### [facility] [address] [place] [address] Glucose [Mass/Vol] 128 mg/dL High 70-99 [facility] Comment on above: Performed By: #### 2 4321-2 #### [facility] [address] [place] [address] Potassium [Moles/Vol] 3.7 mmol/L Normal 3.6-5.1 [facility] Comment on above: Performed By: #### 2 4321-2 #### [facility] [address] [place] [address] Sodium [Moles/Vol] 142 mmol/L Normal 136-145 [facility] Comment on above: Performed By: #### 2 4321-2 #### [facility] [address] [place] [address] Urea nitrogen [Mass/Vol] 12 mg/dL Normal 8-20 [facility] Comment on above: Performed By: #### 2 4321-2 #### [facility] [address] [place] [address] Urea nitrogen/Creatinine [Mass ratio] 22.6 mg/mg High 12.0-20.0 [facility] Comment on above: Performed By: #### 2 4321-2 #### [facility] [address] [place] [address] CBC W Differential panel, me thod unspecified (Bld)Ordered By: Alesha Tse on 12-29-2024 Erythrocyte distribution width (RBC) [Ratio] 13 % 11.0 - 14.8 % [facility] Hematocrit (Bld) [Volume fraction] 37.6 % 34.3 - 47.9 % [facility] Hemoglobin (Bld) [Mass/Vol] 12.6 g/dL 12.0 - 16.0 g/dL [facility] Interpretation and review of laboratory results Abnormal [facility] MCH (RBC) [Entitic mass] 33.8 pg [facility] MCHC (RBC) [Mass/Vol] 33.5 g/dL 30.8 - 35.3 g/dL [facility] MCV (RBC) [Entitic vol] 100.8 fL High [employer] Platelet mean volume (Bld) [Entitic vol] 10.8 fL [facility] Platelets (Bld) [#/Vol] 143 10*3/uL [facility] RBC (Bld) [#/Vol] 3.73 10*6/uL Low [facility] WBC (Bld) [#/Vol] 7.7 10*3/uL [facility] CBC W Differential panel, mi thod unspecified (Bld)on 12-29-2024 Atypical Lymphocytes % 2.0 % High <=0.0 [facility] Comment on above: Performed By: #### 6 9742-5 #### [facility] [address] [place] [address] Atypical Lymphocytes Abs Manual Count 0.15 K/mcL High <=0.00 [facility] Comment on above: Performed By: #### 6 9742-5 #### [facility] [address] [place] [address] Lymphocytes (Bld) [#/Vol] 1.86 10*3/uL Normal 1.00-4.80 [facility] Comment on above: Performed By: #### 6 9742-5 #### [facility] [address] [place] [address] Lymphocytes/100 WBC (Bld) 24.2 % Normal 17.9-49.6 [facility] Comment on above: Performed By: #### 6 9742-5 #### [facility] [address] [place] [address] Monocytes (Bld) [#/Vol] 0.85 10*3/uL Normal 0.00-0.90 [facility] Comment on above: Performed By: #### 6 9742-5 #### [facility] [address] [place] [address] Monocytes/100 WBC (Bld) 11.1 % Normal 0.0-12.0 [facility] Comment on above: Performed By: #### 6 9742-5 #### [facility] [address] [place] [address] Myelocytes Absolute 0.08 K/mcL High <=0.00 [facility] Comment on above: Performed By: #### 6 9742-5 #### [facility] [address] [place] [address] Myelocytes/100 WBC (Bld) 1.0 % High <=0.0 [facility] Comment on above: Performed By: #### 6 9742-5 #### [facility] [address] [place] [address] Neutrophils Absolute 4.74 K/mcL Normal 1.80-7.70 [facility] Comment on above: Performed By: #### 6 9742-5 #### [facility] [address] [place] [address] Neutrophils/100 WBC (Bld) 61.6 % Normal 38.1-75.5 [facility] Comment on above: Performed By: #### 6 9742-5 #### [facility] [address] [place] [address] Total Counted 100 Normal [facility] Comment on above: Performed By: #### 6 9742-5 #### [facility] [address] [place] [address] Vacuolated Neutrophils Present Present Abnormal (none) [facility] Comment on above: Performed By: #### 6 9742-5 #### [facility] [address] [place] [address] CBC W Ordered Manual Differe ntial panel (Bld)on 12-29-2024 Atypical Lymphocytes Abs Manual Count 0.15 High NINF [employer] Cells Counted Total (Bld) [#] 100 {cells} [employer] Interpretation and review of laboratory results Abnormal [employer] Lymphocytes (Bld) [#/Vol] 1.86 10*3/uL [employer] Lymphocytes/100 WBC (Bld) 24.2 % 17.9 - 49.6 % [facility] Monocytes (Bld) [#/Vol] 0.85 10*3/uL [facility] Monocytes/100 WBC (Bld) 11.1 % 0.0 - 12.0 % [facility] Myelocytes (Bld) [#/Vol] 0.08 10*3/uL High NINF [facility] Myelocytes/100 WBC (Bld) 1 % High NINF - 0.0 % [facility] Plateletcrit (Bld) [Volume fraction] 2 % High NINF - 0.0 % [facility] Segmented neutrophils (Bld) [#/Vol] 4.74 10*3/uL [facility] Segmented neutrophils/100 WBC (Bld) 61.6 % 38.1 - 75.5 % [facility] Vacuolated Neutrophils Present Present Abnormal (none) [facility] Lactate (Bld) [Mass/Vol]on 12-29-2024 Interpretation and review of laboratory results Abnormal [facility] Lactate [Moles/Vol] 2.5 mmol/L High 0.5 - 2. 0 mmol/L [facility] Lactate [Moles/Vol] 2.5 mmol/L High 0.5-2.0 [facility] Comment on above: Performed By: #### 5 9032-3 #### [facility] [address] [place] [address] Discharge Instructionon 12-12 Discharge Instruction [facility] Medical Records Department [address] [place] [address] Instructions for Home/Discharge Instructions 12/27/24 0804 MR#: [id number] Acct: [id number] Name: PARDEEP MARK Rep #: [id number] : 1965 59 From: Alfredo Sanchez MD PCP: Dr. Tammy Karimi MD Status:ADM IN Discharge Instructions Diet Discharge Diet: Low fat / Low cholesterol DC O2, CPAP, BIPAP needs Home O2 Discharge instructions: No Dressing / Incision Discharge Activity: Return to Normal Activity Dressing / Incision Call your doctor if you observe: Fever of 101 or Higher, Shortness of breath, Dizziness, Fainting spells, Swelling in the ankles, Chest pain and Increased palpitations (irregular heartbeat) Follow Up Care Test Results: Test results from this visit will be discussed in further detail at your follow-up appointment, if applicable. Discharge Plan Admission Admit Date/Time: 12/22/24 15:19 Attending Provider: Alfredo Sanchez Primary Care Provider: Tammy Karimi Consulting Providers: Jt Morales Discharge Orders/Prescriptions Prescriptions: Continued divalproex 500 mg tablet,delayed release (DR/EC) 500 mg PO BID Qty: 180 3RF aspirin 81 MG tablet 81 mg PO DAILY atorvastatin 40 mg tablet 40 mg PO DAILY buprenorphine-naloxo ne 8-2 mg tablet, sublingual 2 tab sublingual DAILY escitalopram oxalate 10 mg tablet 10 mg PO DAILY folic acid 1 mg Tablet 1 mg PO DAILY@0800 Qty: 30 0RF Referrals / Follow Up: Tammy Karimi MD [Primary Care Provider] - Within 1 Week Disposition Disposition (needs filled in before D/C Order can be placed): Home, Self Care 12/27/24 0806 Alfredo Sanchez MD CC: Dr. Jt Morales, DO; Dr. Tammy Karimi MD Signed Normal [facility] Basic Metabolic Profile (BMP )on 12-26-2024 BUN/CRE 15.1 RATIO Normal 10-20 [facility] Comment on above: Performed By: #### L 501.8100 #### [facility] [address] [place], [address] Calcium [Mass/Vol] 8.4 mg/dL Normal 7.6-11.0 [facility] Comment on above: Performed By: #### L 501.8100 #### [facility] [address] [place], [address] Chloride [Moles/Vol] 104 mmol/L Normal 98-108 [facility] Comment on above: Performed By: #### L 501.8100 #### [facility] [address] [place], [address] CO2 [Moles/Vol] 28.3 mmol/L Normal 21.0-32.0 [facility] Comment on above: Performed By: #### L 501.8100 #### [facility] [address] [place], [address] Creatinine [Mass/Vol] 0.56 mg/dL Low 0.70-1.20 [facility] Comment on above: Performed By: #### L 501.8100 #### [facility] [address] [place], [address] ECRCL 115.56 ml/min Normal 50-250 [facility] Comment on above: Performed By: #### L 501.8100 #### [facility] [address] [place], [address] GAP 9 Normal 5-15 [facility] Comment on above: Performed By: #### L 501.8100 #### [facility] [address] [place], [address] GFR/1.73 sq M.predicted among non-blacks MDRD (S/P/Bld) [Vol rate/Area] 104 mL/min/{1.73_m2} Normal >60 [facility] Comment on above: Result Comment: mL/m in/1.73m2 CKD-EPI Creatinine Equation (2020) Performed By: #### L 501.8100 #### [facility] [address] [place], [address] Glucose [Mass/Vol] 103 mg/dL High 70-99 [facility] Comment on above: Performed By: #### L 501.8100 #### [facility] [address] [place], [address] Potassium [Moles/Vol] 3.6 mmol/L Normal 3.3-5.1 [facility] Comment on above: Performed By: #### L 501.8100 #### [facility] [address] [place], [address] Sodium [Moles/Vol] 142 mmol/L Normal 133-145 [facility] Comment on above: Performed By: #### L 501.8100 #### [facility] [address] [place], [address] Urea nitrogen [Mass/Vol] 8 mg/dL Normal 4-19 [facility] Comment on above: Performed By: #### L 501.8100 #### [facility] [address] [place], [address] CBC-Complete Blood Cnt No Di ffon 12-26-2024 Erythrocyte distribution width (RBC) [Ratio] 13.2 % Normal 11.6-14.6 [facility] Comment on above: Performed By: #### L 501.8100 #### [facility] [address] [place], [address] Hematocrit (Bld) [Volume fraction] 36.8 % Low 37-47 [facility] Comment on above: Performed By: #### L 501.8100 #### [facility] [address] [place], [address] Hemoglobin (Bld) [Mass/Vol] 12.3 g/dL Normal 12.0-15.0 [facility] Comment on above: Performed By: #### L 501.8100 #### [facility] [address] [place], [address] MCH (RBC) [Entitic mass] 33.6 pg High 27.0-32.0 [facility] Comment on above: Performed By: #### L 501.8100 #### [facility] [address] [place], [address] MCHC (RBC) [Mass/Vol] 33.4 g/dL Normal 32-36 [facility] Comment on above: Performed By: #### L 501.8100 #### [facility] [address] [place], [address] MCV (RBC) [Entitic vol] 100.5 fL High 81-99 [facility] Comment on above: Performed By: #### L 501.8100 #### [facility] [address] [place], [address] Platelet mean volume (Bld) [Entitic vol] 10.4 fL Normal 6.2-12.0 [facility] Comment on above: Performed By: #### L 501.8100 #### [facility] [address] [place], [address] Platelets (Bld) [#/Vol] 147 10*3/uL Low 150-450 [facility] Comment on above: Performed By: #### L 501.8100 #### [facility] [address] [place], [address] RBC (Bld) [#/Vol] 3.66 10*6/uL Low 4.2-5.4 [facility] Comment on above: Performed By: #### L 501.8100 #### [facility] [address] [place], [address] RDW SD 48.6 fl High 35.1-43.9 [facility] Comment on above: Performed By: #### L 501.8100 #### [facility] [address] [place], [address] WBC (Bld) [#/Vol] 8.4 10*3/uL Normal 4.4-11.0 [facility] Comment on above: Performed By: #### L 501.8100 #### [facility] [address] [place], [address] CBC-Complete Blood Cnt No Di ffon 12-23-2024 Erythrocyte distribution width (RBC) [Ratio] 13.5 % Normal 11.6-14.6 [facility] Comment on above: Performed By: #### L 500.4050, L100.0500 #### [facility] [address] [place], [address] Hematocrit (Bld) [Volume fraction] 37.1 % Normal 37-47 [facility] Comment on above: Performed By: #### L 500.4050, L100.0500 #### [facility] [address] [place], [address] Hemoglobin (Bld) [Mass/Vol] 12.4 g/dL Normal 12.0-15.0 [facility] Comment on above: Performed By: #### L 500.4050, L100.0500 #### [facility] [address] [place], [address] MCH (RBC) [Entitic mass] 33.7 pg High 27.0-32.0 [facility] Comment on above: Performed By: #### L 500.4050, L100.0500 #### [facility] [address] [place], [address] MCHC (RBC) [Mass/Vol] 33.4 g/dL Normal 32-36 [facility] Comment on above: Performed By: #### L 500.4050, L100.0500 #### [facility] [address] [place], [address] MCV (RBC) [Entitic vol] 100.8 fL High 81-99 [facility] Comment on above: Performed By: #### L 500.4050, L100.0500 #### [facility] [address] [place], [address] Platelet mean volume (Bld) [Entitic vol] 10.0 fL Normal 6.2-12.0 [facility] Comment on above: Performed By: #### L 500.4050, L100.0500 #### [facility] [address] [place], [address] Platelets (Bld) [#/Vol] 191 10*3/uL Normal 150-450 [facility] Comment on above: Performed By: #### L 500.4050, L100.0500 #### [facility] [address] [place], [address] RBC (Bld) [#/Vol] 3.68 10*6/uL Low 4.2-5.4 [facility] Comment on above: Performed By: #### L 500.4050, L100.0500 #### [facility] [address] [place], [address] RDW SD 50.0 fl High 35.1-43.9 [facility] Comment on above: Performed By: #### L 500.4050, L100.0500 #### [facility] [address] [place], [address] WBC (Bld) [#/Vol] 7.0 10*3/uL Normal 4.4-11.0 [facility] Comment on above: Performed By: #### L 500.4050, L100.0500 #### [facility] [address] [place], [address] Comprehensive Metabolic Prof [facility] 12-23-2024 Albumin [Mass/Vol] 3.4 g/dL Normal 3.4-4.8 [facility] Comment on above: Performed By: #### L 501.8100 #### [facility] [address] [place], [address] Albumin/Globulin [Mass ratio] 1.5 {ratio} Normal 0.9-2.4 [facility] Comment on above: Performed By: #### L 501.8100 #### [facility] [address] [place], [address] ALK PHOS 76 U/L Normal 35-104 [facility] Comment on above: Performed By: #### L 501.8100 #### [facility] [address] [place], [address] ALT [Catalytic activity/Vol] 26 U/L Normal <=34 [facility] Comment on above: Performed By: #### L 501.8100 #### [facility] [address] [place], [address] AST [Catalytic activity/Vol] 26 U/L Normal <=31 [facility] Comment on above: Performed By: #### L 501.8100 #### [facility] [address] [place], [address] Bilirubin [Mass/Vol] 0.61 mg/dL Normal 0.00-1.30 [facility] Comment on above: Performed By: #### L 501.8100 #### [facility] [address] [place], [address] BUN/CRE 21.4 RATIO High 10-20 [facility] Comment on above: Performed By: #### L 501.8100 #### [facility] [address] [place], [address] Calcium [Mass/Vol] 8.6 mg/dL Normal 7.6-11.0 [facility] Comment on above: Performed By: #### L 501.8100 #### [facility] [address] [place], [address] Chloride [Moles/Vol] 106 mmol/L Normal 98-108 [facility] Comment on above: Performed By: #### L 501.8100 #### [facility] [address] [place], [address] CO2 [Moles/Vol] 25.4 mmol/L Normal 21.0-32.0 [facility] Comment on above: Performed By: #### L 501.8100 #### [facility] [address] [place], [address] Creatinine [Mass/Vol] 0.60 mg/dL Low 0.70-1.20 [facility] Comment on above: Performed By: #### L 501.8100 #### [facility] [address] [place], [address] ECRCL 107.86 ml/min Normal 50-250 [facility] Comment on above: Performed By: #### L 501.8100 #### [facility] [address] [place], [address] GAP 10 Normal 5-15 [facility] Comment on above: Performed By: #### L 501.8100 #### [facility] [address] [place], [address] GFR/1.73 sq M.predicted among non-blacks MDRD (S/P/Bld) [Vol rate/Area] 103 mL/min/{1.73_m2} Normal >60 [facility] Comment on above: Result Comment: mL/m in/1.73m2 CKD-EPI Creatinine Equation (2020) Performed By: #### L 501.8100 #### [facility] [address] [place], [address] Globulin (S) [Mass/Vol] 2.3 g/dL Normal 2.2-4.2 [facility] Comment on above: Performed By: #### L 501.8100 #### [facility] [address] [place], [address] Glucose [Mass/Vol] 111 mg/dL High 70-99 [facility] Comment on above: Performed By: #### L 501.8100 #### [facility] [address] [place], [address] Potassium [Moles/Vol] 3.9 mmol/L Normal 3.3-5.1 [facility] Comment on above: Performed By: #### L 501.8100 #### [facility] [address] [place], [address] Sodium [Moles/Vol] 141 mmol/L Normal 133-145 [facility] Comment on above: Performed By: #### L 501.8100 #### [facility] [address] [place], [address] T PROT 5.7 g/dL Low 5.9-8.4 [facility] Comment on above: Performed By: #### L 501.8100 #### [facility] [address] [place], [address] Urea nitrogen [Mass/Vol] 13 mg/dL Normal 4-19 [facility] Comment on above: Performed By: #### L 501.8100 #### [facility] [address] [place], [address] 12 Lead EKGon 12-22-2024 12 Lead EKG [facility] [address] [facility] [place] [address] 12 Lead EKG 12/22/24 1407 MR#: [id number] Acct: [id number] Name: PARDEEP MARK Rep #: [id number] : 1965 59 From: Neil Oliveira MD Attending Dr: Dr. Jt Morales, Status : ADM IN Ordering Dr: Angel Page DO Date: 5 [place] [facility] [place]: F C Admitted: 12/22/24 Test Reason : Blood Pressure : */* mmHG Vent. Rate : 99 BPM Atrial Rate : 99 BPM P-R Int : 160 ms QRS Dur : 76 ms QT Int : 368 ms P-R-T Axes : 66 -31 -40 degrees QTcB Int : 472 ms Normal sinus rhythm Left axis deviation Low voltage QRS ST T wave abnormality, consider anterior ischemia Prolonged QT Abnormal ECG Confirmed by Neil Oliveira ([id number]), editorial specialist ALICIA HAMPTON ([id number]) on 12/23/2024 6:49:02 AM Referred By: Confirmed By: Neil Oliveira 12/23/24 0649 Date Neil Oliveira MD CC: Dr. Jt Morales, DO; Dr. Angel Page DO; Dr. Tammy Karimi MD Signed Normal [facility] Alcohol, Blood (Medical)-Ser umon 12-22-2024 SERUM ETOH < 10.1 Normal <=10.0 [facility] Comment on above: Result Comment: This test is for medical purposes only. The legal definition of intoxication varies according to local law. Performed By: #### L 501.5200, L505.5000, L500.4050, L501.9100, L100.0100 #### [facility] [address] [place], [address] CBC W/Diff, Automatedon 12-12 Absolute Lymph 2.72 X10 3/uL Normal 0.83-4.51 [facility] Comment on above: Performed By: #### L 501.5200, L505.5000, L500.4050, L501.9100, L100.0100 #### [facility] [address] [place], [address] Absolute Neut 8.0 X10 3/uL High 2.0-7.7 [facility] Comment on above: Performed By: #### L 501.5200, L505.5000, L500.4050, L501.9100, L100.0100 #### [facility] [address] [place], [address] Basophils/100 WBC (Bld) 0.7 % Normal 0-1 [facility] Comment on above: Performed By: #### L 501.5200, L505.5000, L500.4050, L501.9100, L100.0100 #### [facility] [address] [place], [address] Eosinophils/100 WBC (Bld) 0.9 % Normal 0-5 [facility] Comment on above: Performed By: #### L 501.5200, L505.5000, L500.4050, L501.9100, L100.0100 #### [facility] [address] [place], [address] Erythrocyte distribution width (RBC) [Ratio] 13.2 % Normal 11.6-14.6 [facility] Comment on above: Performed By: #### L 501.5200, L505.5000, L500.4050, L501.9100, L100.0100 #### [facility] [address] [place], [address] Hematocrit (Bld) [Volume fraction] 40.0 % Normal 37-47 [facility] Comment on above: Performed By: #### L 501.5200, L505.5000, L500.4050, L501.9100, L100.0100 #### [facility] [address] [place], [address] Hemoglobin (Bld) [Mass/Vol] 13.9 g/dL Normal 12.0-15.0 [facility] Comment on above: Performed By: #### L 501.5200, L505.5000, L500.4050, L501.9100, L100.0100 #### [facility] [address] [place], [address] IG% 0.600 Normal 0.0-0.9 [facility] Comment on above: Result Comment: IG% - Immature Granulocytes (promyelocytes, myelocytes and metamyelocytes) > 1% indicates that a LEFT SHIFT is Present. Performed By: #### L 501.5200, L505.5000, L500.4050, L501.9100, L100.0100 #### [facility] [address] [place], [address] Lymphocytes/100 WBC (Bld) 22.0 % Normal 19-41 [facility] Comment on above: Performed By: #### L 501.5200, L505.5000, L500.4050, L501.9100, L100.0100 #### [facility] [address] [place], [address] MCH (RBC) [Entitic mass] 33.7 pg High 27.0-32.0 [facility] Comment on above: Performed By: #### L 501.5200, L505.5000, L500.4050, L501.9100, L100.0100 #### [facility] [address] [place], [address] MCHC (RBC) [Mass/Vol] 34.8 g/dL Normal 32-36 [facility] Comment on above: Performed By: #### L 501.5200, L505.5000, L500.4050, L501.9100, L100.0100 #### [facility] [address] [place], [address] MCV (RBC) [Entitic vol] 96.9 fL Normal 81-99 [facility] Comment on above: Performed By: #### L 501.5200, L505.5000, L500.4050, L501.9100, L100.0100 #### [facility] [address] [place], [address] Monocytes/100 WBC (Bld) 11.1 % High 0-10 [facility] Comment on above: Performed By: #### L 501.5200, L505.5000, L500.4050, L501.9100, L100.0100 #### [facility] [address] [place], [address] Neutrophils/100 WBC (Bld) 64.7 % Normal 47-70 [facility] Comment on above: Performed By: #### L 501.5200, L505.5000, L500.4050, L501.9100, L100.0100 #### [facility] [address] [place], [address] Nucleated RBC (Bld) [#/Vol] 0 10*3/uL Normal 0-5 [facility] Comment on above: Performed By: #### L 501.5200, L505.5000, L500.4050, L501.9100, L100.0100 #### [facility] [address] [place], [address] Platelet mean volume (Bld) [Entitic vol] 10.2 fL Normal 6.2-12.0 [facility] Comment on above: Performed By: #### L 501.5200, L505.5000, L500.4050, L501.9100, L100.0100 #### [facility] [address] [place], [address] Platelets (Bld) [#/Vol] 239 10*3/uL Normal 150-450 [facility] Comment on above: Performed By: #### L 501.5200, L505.5000, L500.4050, L501.9100, L100.0100 #### [facility] [address] [place], [address] RBC (Bld) [#/Vol] 4.13 10*6/uL Low 4.2-5.4 [facility] Comment on above: Performed By: #### L 501.5200, L505.5000, L500.4050, L501.9100, L100.0100 #### [facility] [address] [place], [address] RDW SD 47.1 fl High 35.1-43.9 [facility] Comment on above: Performed By: #### L 501.5200, L505.5000, L500.4050, L501.9100, L100.0100 #### [facility] [address] [place], [address] WBC (Bld) [#/Vol] 12.4 10*3/uL High 4.4-11.0 [facility] Comment on above: Performed By: #### L 501.5200, L505.5000, L500.4050, L501.9100, L100.0100 #### [facility] [address] [place], [address] Comprehensive Metabolic Prof ilon 12-22-2024 Albumin [Mass/Vol] 4.2 g/dL Normal 3.4-4.8 [facility] Comment on above: Performed By: #### L 501.5200, L505.5000, L500.4050, L501.9100, L100.0100 #### [facility] [address] [place], [address] Albumin/Globulin [Mass ratio] 1.5 {ratio} Normal 0.9-2.4 [facility] Comment on above: Performed By: #### L 501.5200, L505.5000, L500.4050, L501.9100, L100.0100 #### [facility] [address] [place], [address] ALK PHOS 94 U/L Normal 35-104 [facility] Comment on above: Performed By: #### L 501.5200, L505.5000, L500.4050, L501.9100, L100.0100 #### [facility] [address] [place], [address] ALT [Catalytic activity/Vol] 38 U/L High <=34 [facility] Comment on above: Performed By: #### L 501.5200, L505.5000, L500.4050, L501.9100, L100.0100 #### [facility] [address] [place], [address] AST [Catalytic activity/Vol] 40 U/L High <=31 [facility] Comment on above: Performed By: #### L 501.5200, L505.5000, L500.4050, L501.9100, L100.0100 #### [facility] [address] [place], [address] Bilirubin [Mass/Vol] 0.59 mg/dL Normal 0.00-1.30 [facility] Comment on above: Performed By: #### L 501.5200, L505.5000, L500.4050, L501.9100, L100.0100 #### [facility] [address] [place], [address] BUN/CRE 18.7 RATIO Normal 10-20 [facility] Comment on above: Performed By: #### L 501.5200, L505.5000, L500.4050, L501.9100, L100.0100 #### [facility] [address] [place], [address] Calcium [Mass/Vol] 9.8 mg/dL Normal 7.6-11.0 [facility] Comment on above: Performed By: #### L 501.5200, L505.5000, L500.4050, L501.9100, L100.0100 #### [facility] [address] [place], [address] Chloride [Moles/Vol] 100 mmol/L Normal 98-108 [facility] Comment on above: Performed By: #### L 501.5200, L505.5000, L500.4050, L501.9100, L100.0100 #### [facility] [address] [place], [address] CO2 [Moles/Vol] 23.8 mmol/L Normal 21.0-32.0 [facility] Comment on above: Performed By: #### L 501.5200, L505.5000, L500.4050, L501.9100, L100.0100 #### [facility] [address] [place], [address] Creatinine [Mass/Vol] 0.63 mg/dL Low 0.70-1.20 [facility] Comment on above: Performed By: #### L 501.5200, L505.5000, L500.4050, L501.9100, L100.0100 #### [facility] [address] [place], [address] ECRCL 102.72 ml/min Normal 50-250 [facility] Comment on above: Performed By: #### L 501.5200, L505.5000, L500.4050, L501.9100, L100.0100 #### [facility] [address] [place], [address] GAP 16 High 5-15 [facility] Comment on above: Performed By: #### L 501.5200, L505.5000, L500.4050, L501.9100, L100.0100 #### [facility] [address] [place], [address] GFR/1.73 sq M.predicted among non-blacks MDRD (S/P/Bld) [Vol rate/Area] 101 mL/min/{1.73_m2} Normal >60 [facility] Comment on above: Result Comment: mL/m in/1.73m2 CKD-EPI Creatinine Equation (2020) Performed By: #### L 501.5200, L505.5000, L500.4050, L501.9100, L100.0100 #### [facility] [address] [place], [address] Globulin (S) [Mass/Vol] 2.7 g/dL Normal 2.2-4.2 [facility] Comment on above: Performed By: #### L 501.5200, L505.5000, L500.4050, L501.9100, L100.0100 #### [facility] [address] [place], [address] Glucose [Mass/Vol] 140 mg/dL High 70-99 [facility] Comment on above: Performed By: #### L 501.5200, L505.5000, L500.4050, L501.9100, L100.0100 #### [facility] [address] [place], [address] Potassium [Moles/Vol] 3.4 mmol/L Normal 3.3-5.1 [facility] Comment on above: Performed By: #### L 501.5200, L505.5000, L500.4050, L501.9100, L100.0100 #### [facility] [address] [place], [address] Sodium [Moles/Vol] 140 mmol/L Normal 133-145 [facility] Comment on above: Performed By: #### L 501.5200, L505.5000, L500.4050, L501.9100, L100.0100 #### [facility] [address] [place], [address] T PROT 6.9 g/dL Normal 5.9-8.4 [facility] Comment on above: Performed By: #### L 501.5200, L505.5000, L500.4050, L501.9100, L100.0100 #### [facility] [address] [place], [address] Urea nitrogen [Mass/Vol] 12 mg/dL Normal 4-19 [facility] Comment on above: Performed By: #### L 501.5200, L505.5000, L500.4050, L501.9100, L100.0100 #### [facility] [address] [place], [address] Emergency Department Summary on 12-22-2024 Emergency Department Summary [facility] Medical Records Department [address] [place] [address] Emergency Department Summary 12/22/24 MR#: [id number] Acct: [id number] Name: PARDEEP MARK Rep #: [id number] : 1965 59 From: Angel Page DO PCP: Dr. Tammy Karimi MD Status:REG ER Location: ED HPI History of Present Illness Chief Complaint: Seizure Narrative Narrative: Chief complaint and HPI: Breakthrough seizure and requesting alcohol detox. 59-year-old female with past medical history of opiate abuse on chronic Suboxone, depression/anxiety, partial seizure disorder on Depakote, alcohol abuse presents for evaluation of breakthrough seizure and requesting alcohol detox. Patient states that she previously went through an alcohol detox program and was sober for 4 months. States she had a relapse approximately 1 month ago. Patient states that she stopped drinking for approximately 24 hours when she developed withdrawal symptoms such as nausea, shaking, diarrhea. Patient states that she could not take the withdrawal symptoms today therefore she had some alcohol this morning. States she then had a partial seizure at home which she could feel was coming on. Patient states she has not missed any of her Depakote. She denies any suicidal or homicidal ideation. Denies any visual or auditory hallucinations. Denies any fever, chills, chest pain, shortness of breath. Review of systems: See HPI Medications: As listed on the chart Allergies: As listed on the chart PFSH: Per chart Vital signs: As listed on the chart. Reviewed. Physical exam: Gen: A O x3 Head: Normocephalic, atraumatic Eyes: No sclera icterus, conjunctiva clear, PERRL ENT: Dry mucous membranes Neck: Trachea midline, No JVD CV:Tachycardic, regular rhythm, no murmurs, no peripheral edema Resp: Lungs CTA BL, no w/r/c GI: Abd soft, non-distended, non-tender, no r/r/g Musc: Full ROM, no deformity, tremors Skin: Warm Neuro: Alert, oriented, grossly intact, sensation intact Psych: Cooperative, appropriate mood and affect [facility] Medical History Amputation of leg Seizures Substance abuse Depression Failure of outpatient treatment Opioid use disorder Generalized anxiety disorder Major depressive disorder, recurrent severe without psychotic features History of drug overdose Drug abuse Unilateral above knee amputation Hyperlipemia Seizures Hyperlipidemia Home Medications ???Medication ???Instructions ???Recorded ???Last Taken ???Type aspirin 81 mg tablet,delayed 81 mg PO DAILY [facility] 07/17/24 History release atorvastatin 40 mg tablet 40 mg PO DAILY 12/26/23 07/17/24 H istory buprenorphine 8 mg-naloxone 2 mg 2 tab sublingual DAILY 12/26/23 History sublingual tablet divalproex 500 mg tablet,delayed 500 mg PO BID Seizure disorder 07/17/24 Rx release #180 tabs escitalopram oxalate 10 mg tablet 10 mg PO DAILY 07/17/24 07/17/24 History folic acid 1 mg tablet 1 mg PO DAILY@0800 #30 tabs Unknown Rx Allergy/AdvReac Type Severity Reaction Status Date / Time metoclopramide HCl (From Allergy shaking Verified 12/22/24 12:28 Reglan) prochlorperazine (From Allergy Hives Verified 12/22/24 12:28 Compazine) promethazine (From Phenergan) Allergy Hives Verified 12/22/24 12:28 Family History Mother Dementia CVA (cerebral vascular accident) Myocardial infarction Father Heart disease Hypercholesteremia Surgical History H/O wrist surgery Social History household members: none Smoking Status: Never smoker alcohol intake: current details: occasional glass of wine substance use type: does not use caffeine: No do you feel safe at home: Yes EXAM Physical Exam Const Vital Signs: 12/22/24 12:26 12/22/24 14:05 12/22/24 14:17 Temperature 100.1 F H 98.7 F Temperature Source Oral Pulse Rate 107 H 103 H 97 Respiratory Rate 20 H 13 11 L Blood Pressure 154/100 H 141/90 H 137/84 H Blood Pressure Mean 118 107 101 Blood Pressure Source Blood Pressure Position Blood Pressure Location Pulse Ox 96 97 98 Oxygen Delivery Method Room Air Room Air 12/22/24 14:18 Temperature 98.7 F Temperature Source Oral Pulse Rate 101 H Respiratory Rate 12 Blood Pressure 137/84 H Blood Pressure Mean 101 Blood Pressure Source Monitor Blood Pressure Position Semi-Fowlers Blood Pressure Location Right Arm Pulse Ox 96 Oxygen Delivery Method Room Air MDM MDM MDM Narrative Medical decision steven (more content not included)... Normal [facility] H AND P Exam - Hospitaliston 12-22-2024 H&P Exam - Hospitalist [facility] Medical Records Department [address] [place] [address] H P Exam - Hospitalist 12/22/24 1517 MR#: [id number] Acct: [id number] Name: PARDEEP MARK Rep #: [id number] : 1965 59 From: Jt Morales DO PCP: Dr. Tammy Karimi MD Status:ADM IN Location[place] [facility] [place] HPI - General General Date of Admission: 12/22/24 Date of Service: 12/22/24 Chief Complaint: Alcohol detox HPI Narrative PARDEEP MARK, is a 59 F who presented to [facility] ED on 12/22/2024 for alcohol detox. Saw patient at bedside in the ED. She was previously here for alcohol detox back in July. She was sober for about 3 to 4 months but then relapsed about 1 month ago. She quit drinking cold turkey about 24 hours prior to admission. She quickly began to have withdrawal symptoms and then this morning she had what she thought was a breakthrough seizure, so she came in for alcohol detox. She had been given 2 dose of Ativan before I saw her and was sitting back comfortably in bed and conversing normally. She was very pleasant with conversation and had good insight into her current condition. No other acute concerns at this time. [facility] Medical History Amputation of leg Seizures Substance abuse Depression Failure of outpatient treatment Opioid use disorder Generalized anxiety disorder Major depressive disorder, recurrent severe without psychotic features History of drug overdose Drug abuse Unilateral above knee amputation Hyperlipemia Seizures Hyperlipidemia Home Medications ???Medication ???Instructions ???Recorded ???Last Taken ???Type aspirin 81 mg tablet,delayed 81 mg PO DAILY heart health 07/17/24 History release atorvastatin 40 mg tablet 40 mg PO DAILY 12/26/23 07/17/24 H istory buprenorphine 8 mg-naloxone 2 mg 2 tab sublingual DAILY 12/26/23 History sublingual tablet divalproex 500 mg tablet,delayed 500 mg PO BID Seizure disorder 07/17/24 Rx release #180 tabs escitalopram oxalate 10 mg tablet 10 mg PO DAILY 07/17/24 07/17/24 History folic acid 1 mg tablet 1 mg PO DAILY@0800 #30 tabs Unknown Rx Allergy/AdvReac Type Severity Reaction Status Date / Time metoclopramide HCl (From Allergy shaking Verified 12/22/24 12:28 Reglan) prochlorperazine (From Allergy Hives Verified 12/22/24 12:28 Compazine) promethazine (From Phenergan) Allergy Hives Verified 12/22/24 12:28 Family History Mother Dementia CVA (cerebral vascular accident) Myocardial infarction Father Heart disease Hypercholesteremia Surgical History H/O wrist surgery Social History household members: none Smoking Status: Never smoker alcohol intake: current details: occasional glass of wine substance use type: does not use caffeine: No do you feel safe at home: Yes ROS Constitutional Constitutional: Denies chills, fatigue, fever(s) or weakness Eyes Eyes: Denies change in vision Cardiovascular Cardiovascular: Denies chest pain Respiratory/Chest Respiratory/Chest: Denies shortness of breath at rest Gastrointestinal Gastrointestinal: Denies abdominal pain, nausea or vomiting Genitourinary Genitourinary: Denies dysuria Musculoskeletal Musculoskeletal: Denies arthralgias or myalgias Neurologic Neurologic: Denies dizziness, focal weakness or headache(s) Vital Signs Vital Signs Vital Signs: 12/22/24 12:26 12/22/24 14:05 12/22/24 14:17 Temperature 100.1 F H 98.7 F Temperature Source Oral Pulse Rate 107 H 103 H 97 Respiratory Rate 20 H 13 11 L Blood Pressure 154/100 H 141/90 H 137/84 H Blood Pressure Mean 118 107 101 Blood Pressure Source Blood Pressure Position Blood Pressure Location Pulse Ox 96 97 98 Oxygen Delivery Method Room Air Room Air 12/22/24 14:18 Temperature 98.7 F Temperature Source Oral Pulse Rate 101 H Respiratory Rate 12 Blood Pressure 137/84 H Blood Pressure Mean 101 Blood Pressure Source Monitor Blood Pressure Position Semi-Fowlers Blood Pressure Location Right Arm Pulse Ox 96 Oxygen Delivery Method Room Air Weight Weight: 92.7 kg Body Mass Index (BMI) 36.1 Physical Exam Const alert, oriented x3 and no apparent distress Constitutional Narrative: Upper middle-aged female, class II obesity, mildly fatigued appearing but otherwise sitting back comfortably in bed, conversing normally, in no acute distress. General Appearance: cooperative and comfortable HEENT normocephalic, head/scalp atraumatic, hea (more content not included)... Normal [facility] Magnesiumon 12-22-2024 Magnesium [Mass/Vol] 1.5 mg/dL Normal 1.5-2.2 [facility] Comment on above: Performed By: #### L 501.5200 #### [facility] [address] [place], [place], [address] Magnesium [Mass/Vol] 1.6 mg/dL Normal 1.5-2.2 [facility] Comment on above: Performed By: #### L 501.5200, L505.5000, L500.4050, L501.9100, L100.0100 #### [facility] [address] [place], [address] Urinalysis, Completeon 12-22 EPI,SQUAMOUS 0-5 SEEN Normal 5-10 [facility] Comment on above: Order Comment: CLEAN CATCH Performed By: #### L 501.8100 #### [facility] [address] [place], [address] EPI,TRANSITION 0-5 SEEN Normal 0-5 [facility] Comment on above: Order Comment: CLEAN CATCH Performed By: #### L 501.8100 #### [facility] [address] [place], [address] RBC 5-10 SEEN Normal 0-5 [facility] Comment on above: Order Comment: CLEAN CATCH Performed By: #### L 501.8100 #### [facility] [address] [place], [address] WBC 10-25 SEEN Normal 0-5 [facility] Comment on above: Order Comment: CLEAN CATCH Performed By: #### L 501.8100 #### [facility] [address] [place], [address] BACTERIA 0 SEEN Normal None Seen [facility] Comment on above: Order Comment: CLEAN CATCH Performed By: #### L 501.8100 #### [facility] [address] [place], [address] Mucus Ql (Urine sed) 0 SEEN Normal [facility] Comment on above: Order Comment: CLEAN CATCH Performed By: #### L 501.8100 #### [facility] [address] [place], [address] Urine Drug Screen (VISTA)on 12-22-2024 AMPHETAMINES Negative Normal <1000 ng/mL [facility] Comment on above: Performed By: #### L 501.5200, L505.5000, L500.4050, L501.9100, L100.0100 #### [facility] [address] [place], [address] BARBITIURATES Negative Normal < 200 ng/mL [facility] Comment on above: Performed By: #### L 501.5200, L505.5000, L500.4050, L501.9100, L100.0100 #### [facility] [address] [place], [address] BENZODIAZIPINE Negative Normal < 200 ng/mL [facility] Comment on above: Performed By: #### L 501.5200, L505.5000, L500.4050, L501.9100, L100.0100 #### [facility] [address] [place], [address] BUP Ur Drug Scr Positive Normal < 200 ng/mL [facility] Comment on above: Result Comment: If c onfirmation testing is needed, a separate order will be required to send out testing to the reference laboratory. Performed By: #### L 501.5200, L505.5000, L500.4050, L501.9100, L100.0100 #### [facility] [address] [place], [address] COCAINE Negative Normal < 300 ng/mL [facility] Comment on above: Performed By: #### L 501.5200, L505.5000, L500.4050, L501.9100, L100.0100 #### [facility] [address] [place], [address] Fentanyl Negative Normal [facility] Comment on above: Performed By: #### L 501.5200, L505.5000, L500.4050, L501.9100, L100.0100 #### [facility] [address] [place], [address] METHADONE Negative Normal < 300 ng/mL [facility] Comment on above: Performed By: #### L 501.5200, L505.5000, L500.4050, L501.9100, L100.0100 #### [facility] [address] [place], [address] OPIATES Negative Normal < 300 ng/mL [facility] Comment on above: Performed By: #### L 501.5200, L505.5000, L500.4050, L501.9100, L100.0100 #### [facility] [address] [place], [address] OXYCODONE Negative Normal < 100 ng/mL [facility] Comment on above: Performed By: #### L 501.5200, L505.5000, L500.4050, L501.9100, L100.0100 #### [facility] [address] [place], [address] PCP Negative Normal < 25 ng/mL [facility] Comment on above: Performed By: #### L 501.5200, L505.5000, L500.4050, L501.9100, L100.0100 #### [facility] [address] [place], [address] THC Negative Normal < 50 ng/mL [facility] Comment on above: Performed By: #### L 501.5200, L505.5000, L500.4050, L501.9100, L100.0100 #### [facility] [address] [place], [address] Valproic Acid (Depakene) Lev donny 12-22-2024 VALPROIC ACID 91 ug/mL Normal 50-100 [facility] Comment on above: Result Comment: Valp roic Acid concentrations >100 ug/mL are potentially toxic. Performed By: #### L 501.8100 #### [facility] [address] [place], [address] Venous Duplex US, Unilateral on 07-25-2024 Venous Duplex US, Unilateral [facility] [address] [place] [address] Venous Duplex US, Unilateral 07/25/24 1207 MR#: [id number] Acct: [id number] Name: PARDEEP MARK Rep #: [id number] : 1965 59 From: Nicholas Urrutia MD Attending Dr: Dr. Levi Platt DO Status: REG CLI Ordering Dr: Levi Platt DO Date: 07/25/24 Location: CVS Sex: F C Admitted: Reason For Study: Swelling RLE RIGHT GSV is normal. CFV is compressible, spontaneous, phasic, competent and demonstrates normal augmentation. FV is compressible, spontaneous, phasic, competent and demonstrates normal augmentation. POP V is compressible, spontaneous, phasic, competent and demonstrates normal augmentation. T/P Trunk is compressible. PTV is compressible. RT PerV is compressible. Difficult to visualize Rt PeroV. Procedure This is a venous duplex using B-mode, color flow and spectral Doppler. Exam performed in department. A preliminary report was called and/or faxed to ED. VL/Venous Duplex US, Unilateral Interpretation Summary Deep veins of the right lower extremity are patent and compressible segmentally. There is no evidence of right lower extremity deep vein thrombosis. Valvular competence appears intact within the proximal deep venous system on the right . The right great saphenous vein appears patent and compressible segmentally. Ordering Physician: Levi Platt Referring Physician: Tammy Karimi Performed By: Jose De Jesus Rose, STEPHEN, RVT 07/25/24 6289 Date Nicholas Urrutia MD CC: Dr. Tammy Karimi MD; Dr. Levi Platt DO Date Dictated: 07/25/24 1207 Date Transcribed: 07/25/24 2340 Specification Manager: Signed Normal [facility] Emergency Department Summary on 07-24-2024 Emergency Department Summary [facility] Medical Records Department [address] [place] [address] Emergency Department Summary 07/24/24 MR#: [id number] Acct: [id number] Name: PARDEEP MARK Rep #: [id number] : 1965 59 From: Levi Platt DO PCP: Dr. Tammy Karimi MD Status:DEP ER Location: ED HPI History of Present Illness Chief Complaint: Edema PFSH PFS Medical History Amputation of leg Seizures Substance abuse Depression Failure of outpatient treatment Opioid use disorder Generalized anxiety disorder Major depressive disorder, recurrent severe without psychotic features History of drug overdose Drug abuse Unilateral above knee amputation Hyperlipemia Seizures Hyperlipidemia Home Medications ???Medication ???Instructions ???Recorded ???Last Taken ???Type acetaminophen 500 mg tablet 1,000 mg PO BID PRN PRN Pain 05/20/18 06/23/19 History ascorbic acid (vitamin C) 500 mg 1,000 mg PO DAILY supplement 05/20/18 07/17/24 History tablet (Vitamin C) aspirin 81 mg tablet,delayed 81 mg PO DAILY heart health 05/20/18 07/17/24 History release atorvastatin 40 mg tablet 40 mg PO DAILY 12/26/23 07/17/24 History buprenorphine 8 mg-naloxone 2 mg 2 tab sublingual DAILY 12/26/23 07/17/24 History sublingual tablet divalproex 500 mg tablet,delayed 500 mg PO BID Seizure disorder 07/01/24 07/17/24 Rx release #180 tabs escitalopram oxalate 10 mg tablet 10 mg PO DAILY 07/17/24 07/17/24 History cephalexin 500 mg capsule 500 mg PO TID #21 caps 07/21/24 Unknown Rx folic acid 1 mg tablet 1 mg PO DAILY@0800 #30 tabs 07/21/24 Unknown Rx thiamine HCl (vitamin B1) 100 mg 100 mg PO DAILYCM #30 tabs 07/21/24 Unknown Rx tablet sulfamethoxazole 800 1 tab PO BID #14 tabs 07/24/24 Unknown Rx mg-trimethoprim 160 mg tablet (Bactrim DS) Allergy/AdvReac Type Severity Reaction Status Date / Time metoclopramide HCl (From Allergy shaking Verified 07/24/24 18:21 Reglan) prochlorperazine (From Allergy Hives Verified 07/24/24 18:21 Compazine) promethazine (From Phenergan) Allergy Hives Verified 07/24/24 18:21 Family History Mother Dementia CVA (cerebral vascular accident) Myocardial infarction Father Heart disease Hypercholesteremia Surgical History H/O wrist surgery Social History household members: none Smoking Status: Never smoker alcohol intake: current details: occasional glass of wine substance use type: does not use caffeine: No do you feel safe at home: Yes EXAM Physical Exam Const Vital Signs: 07/24/24 18:21 07/24/24 19:11 Temperature 97.2 F L 98.8 F Temperature Source Temporal Pulse Rate 87 83 Respiratory Rate 18 18 Blood Pressure 189/160 H 118/104 H Blood Pressure Mean 169 108 Pulse Ox 97 94 Oxygen Delivery Method Room Air MDM MDM MDM Narrative Medical decision making narrative: HISTORY OF PRESENT ILLNESS: 59-year-old female presents with lower extremity swelling. No she was recently admitted for alcohol detox and kidney infection. Patient denies chest pain shortness of breath. Patient denies active cancer, being bedridden for greater than 3 days, denies unilateral leg swelling, denies any varicose veins, denies any calf tenderness, denies tenderness along deep venous system. Denies major surgery within 12 weeks, recent paralysis, previous DVT. REVIEW OF SYSTEMS: Pertinent positives: Lower extremity swelling Pertinent negatives: Fever PHYSICAL EXAM: Nursing triage notes reviewed, Vital signs reviewed Constitutional: please see mdm HENT: MMM Eyes: Pupils equal round and reactive to light, Extraocular muscles intact Neck: No stridor, no JVD, full neck ROM Lungs: Clear to auscultation, No wheezing or rales. No increased work of breathing, no conversational dyspnea, no accessory muscle use, no nasal flaring. No respiratory distress noted Heart: Regular rate and rhythm, No murmurs, No rubs and No gallops, 2+ distal pulses (radial, femoral, posterior tibial) in all extremities Abdomen: Soft, there is no tenderness, rigidity, rebound or guarding, no obvious peritoneal signs, no palpable pulsatile abdominal masses, no auscultated abdominal bruit : No CVAT Extremities: 1+ edema in right lower extremity. Noted left leg amputation. Neuro: Intact sensation L1-S1 dermatomal distributions. Intact 5/5 strength in hip flexion (T12- L3). Knee extension (L2-L4). Ankle dorsiflexion (L4-L5). Ankle plantar flexion (S1). Great toe extension (L5). 2+ patellar and Achilles DTRs. Skin: Confluent erythema noted from the ri (more content not included)... Normal [facility] Urine Cultureon 07-22-2024 URC Mixed Gram Pos Gram Neg Org Raymond Count 25,000-50,000 MIXC Mixed contaminants. Submit a new specimen if indicated. Normal [facility] Comment on above: Performed By: #### L 501.5200 #### [facility] [address] [place], [address] Urinalysis, Completeon 07-21 BACTERIA 1+ /hpf Normal None Seen [facility] Comment on above: Order Comment: CLEAN CATCH Performed By: #### L 501.5200 #### [facility] [address] [place], [address] EPI,SQUAMOUS 0-5 SEEN Normal 5-10 [facility] Comment on above: Order Comment: CLEAN CATCH Performed By: #### L 501.5200 #### [facility] [address] [place], [address] RBC 10-25 SEEN Normal 0-5 [facility] Comment on above: Order Comment: CLEAN CATCH Performed By: #### L 501.5200 #### [facility] [address] [place], [address] WBC 25-50 SEEN Normal 0-5 [facility] Comment on above: Order Comment: CLEAN CATCH Performed By: #### L 501.5200 #### [facility] [address] [place], [address] Mucus Ql (Urine sed) 0 SEEN Normal [facility] Comment on above: Order Comment: CLEAN CATCH Performed By: #### L 501.5200 #### [facility] [address] [place], [address] Urinalysis, Completeon 07-20 BACTERIA Normal None Seen [facility] Comment on above: Order Comment: CLEAN CATCH Result Comment: DUPL ICATE ORDER Performed By: #### L 400.0001 #### [facility] [address] [place], [address] BILIRUBIN URINE Normal Negative [facility] Comment on above: Order Comment: CLEAN CATCH Result Comment: DUPL ICATE ORDER Performed By: #### L 400.0001 #### [facility] [address] [place], [address] Clarity (U) Normal Clear [facility] Comment on above: Order Comment: CLEAN CATCH Result Comment: DUPL ICATE ORDER Performed By: #### L 400.0001 #### [facility] [address] [place], [address] Color (U) Normal Yellow [facility] Comment on above: Order Comment: CLEAN CATCH Result Comment: DUPL ICATE ORDER Performed By: #### L 400.0001 #### [facility] [address] [place], [address] EPI,SQUAMOUS Normal 5-10 [facility] Comment on above: Order Comment: CLEAN CATCH Result Comment: DUPL ICATE ORDER Performed By: #### L 400.0001 #### [facility] [address] [place], [address] GLUCOSE, UR Normal Normal [facility] Comment on above: Order Comment: CLEAN CATCH Result Comment: DUPL ICATE ORDER Performed By: #### L 400.0001 #### [facility] [address] [place], [address] KETONE UR Normal Negative [facility] Comment on above: Order Comment: CLEAN CATCH Result Comment: DUPL ICATE ORDER Performed By: #### L 400.0001 #### [facility] [address] [place], [address] LEUK ESTERASE Normal Negative [facility] Comment on above: Order Comment: CLEAN CATCH Result Comment: DUPL ICATE ORDER Performed By: #### L 400.0001 #### [facility] [address] [place], [address] Mucus Ql (Urine sed) Normal [facility] Comment on above: Order Comment: CLEAN CATCH Result Comment: DUPL ICATE ORDER Performed By: #### L 400.0001 #### [facility] [address] [place], [address] Nitrite Ql (U) Normal Negative [facility] Comment on above: Order Comment: CLEAN CATCH Result Comment: DUPL ICATE ORDER Performed By: #### L 400.0001 #### [facility] [address] [place], [address] OCCULT BLOOD-UR Normal Negative [facility] Comment on above: Order Comment: CLEAN CATCH Result Comment: DUPL ICATE ORDER Performed By: #### L 400.0001 #### [facility] [address] [place], [address] pH UR Normal 5.0 - 8.0 [facility] Comment on above: Order Comment: CLEAN CATCH Result Comment: DUPL ICATE ORDER Performed By: #### L 400.0001 #### [facility] [address] [place], [address] PROT DIPSTX Normal Negative [facility] Comment on above: Order Comment: CLEAN CATCH Result Comment: DUPL ICATE ORDER Performed By: #### L 400.0001 #### [facility] [address] [place], [address] RBC Normal 0-5 [facility] Comment on above: Order Comment: CLEAN CATCH Result Comment: DUPL ICATE ORDER Performed By: #### L 400.0001 #### [facility] [address] [place], [address] SP.GR. DIPSTX Normal 1.002-1.030 [facility] Comment on above: Order Comment: CLEAN CATCH Result Comment: DUPL ICATE ORDER Performed By: #### L 400.0001 #### [facility] [address] [place], [address] UR Preservative Normal [facility] Comment on above: Order Comment: CLEAN CATCH Result Comment: DUPL ICATE ORDER Performed By: #### L 400.0001 #### [facility] [address] [place], [address] UROBILI Normal Normal [facility] Comment on above: Order Comment: CLEAN CATCH Result Comment: DUPL ICATE ORDER Performed By: #### L 400.0001 #### [facility] [address] [place], [address] WBC Normal 0-5 [facility] Comment on above: Order Comment: CLEAN CATCH Result Comment: DUPL ICATE ORDER Performed By: #### L 400.0001 #### [facility] [address] [place], [address] BACTERIA Normal None Seen [facility] Comment on above: Order Comment: CLEAN CATCH Result Comment: @DUP LICATE Performed By: #### L 501.5200 #### [facility] [address] [place], [address] BILIRUBIN URINE Normal Negative [facility] Comment on above: Order Comment: CLEAN CATCH Result Comment: @DUP LICATE Performed By: #### L 501.5200 #### [facility] [address] [place], [address] Clarity (U) Normal Clear [facility] Comment on above: Order Comment: CLEAN CATCH Result Comment: @DUP LICATE Performed By: #### L 501.5200 #### [facility] [address] [place], [address] Color (U) Normal Yellow [facility] Comment on above: Order Comment: CLEAN CATCH Result Comment: @DUP LICATE Performed By: #### L 501.5200 #### [facility] [address] [place] [facility] [place], [address] EPI,SQUAMOUS Normal 5-10 [facility] Comment on above: Order Comment: CLEAN CATCH Result Comment: @DUP LICATE Performed By: #### L 501.5200 #### [facility] [address] [place], [address] GLUCOSE, UR Normal Normal [facility] Comment on above: Order Comment: CLEAN CATCH Result Comment: @DUP LICATE Performed By: #### L 501.5200 #### [facility] [address] [place], [address] KETONE UR Normal Negative [facility] Comment on above: Order Comment: CLEAN CATCH Result Comment: @DUP LICATE Performed By: #### L 501.0 #### [facility] [address] [place], [address] LEUK ESTERASE Normal Negative [facility] Comment on above: Order Comment: CLEAN CATCH Result Comment: @DUP LICATE Performed By: #### L 501.0 #### [facility] [address] [place], [address] Mucus Ql (Urine sed) Normal [facility] Comment on above: Order Comment: CLEAN CATCH Result Comment: @DUP LICATE Performed By: #### L .0 #### [facility] [address] [place], [address] Nitrite Ql (U) Normal Negative [facility] Comment on above: Order Comment: CLEAN CATCH Result Comment: @DUP LICATE Performed By: #### L 501.5200 #### [facility] [address] [place], [address] OCCULT BLOOD-UR Normal Negative [facility] Comment on above: Order Comment: CLEAN CATCH Result Comment: @DUP LICATE Performed By: #### L .0 #### [facility] [address] [place], [address] pH UR Normal 5.0 - 8.0 [facility] Comment on above: Order Comment: CLEAN CATCH Result Comment: @DUP LICATE Performed By: #### L 0 #### [facility] [address] [place], [address] PROT DIPSTX Normal Negative [facility] Comment on above: Order Comment: CLEAN CATCH Result Comment: @DUP LICATE Performed By: #### L 0 #### [facility] [address] [place], [address] RBC Normal 0-5 [facility] Comment on above: Order Comment: CLEAN CATCH Result Comment: @DUP LICATE Performed By: #### L 0 #### [facility] [address] [place], [address] SP.GR. DIPSTX Normal 1.002-1.030 [facility] Comment on above: Order Comment: CLEAN CATCH Result Comment: @DUP LICATE Performed By: #### L 5200 #### [facility] [address] [place], [address] UR Preservative Normal [facility] Comment on above: Order Comment: CLEAN CATCH Result Comment: @DUP LICATE Performed By: #### L .5200 #### [facility] [address] [place], [address] UROBILI Normal Normal [facility] Comment on above: Order Comment: CLEAN CATCH Result Comment: @DUP LICATE Performed By: #### L .5200 #### [facility] [address] [place], [address] WBC Normal 0-5 [facility] Comment on above: Order Comment: CLEAN CATCH Result Comment: @DUP LICATE Performed By: #### L 501.5200 #### [facility] [address] [place], [address] Alcohol, Blood (Medical)-Ser umon 07-17-2024 SERUM ETOH 180.0 mg/dL Normal [facility] Comment on above: Result Comment: The serum:whole blood ethanol ratio is approximately 1.14 and varies slightly with hematocrit. Medical Alcohol reference interval and critical value in non-tolerant individuals; 50 - 100 Impairment 100 Intoxication 100 - 250 Severe Poisoning 250 - 400 Deep/possible fatal coma Performed By: #### L 501.8100 #### [facility] [address] [place], [address] CBC W/Diff, Automatedon Absolute Lymph 2.38 X10 3/uL Normal 0.83-4.51 [facility] Comment on above: Performed By: #### L 501.8100 #### [facility] [address] [place], [address] Absolute Neut 4.0 X10 3/uL Normal 2.0-7.7 [facility] Comment on above: Performed By: #### L 501.8100 #### [facility] [address] [place], [address] Basophils/100 WBC (Bld) 1.5 % High 0-1 [facility] Comment on above: Performed By: #### L 501.8100 #### [facility] [address] [place], [address] Eosinophils/100 WBC (Bld) 2.0 % Normal 0-5 [facility] Comment on above: Performed By: #### L [id number] #### [facility] [address] [place], [address] Erythrocyte distribution width (RBC) [Ratio] 12.9 % Normal 11.6-14.6 [facility] Comment on above: Performed By: #### L 501.8100 #### [facility] [address] [place], [address] Hematocrit (Bld) [Volume fraction] 41.1 % Normal 37-47 [facility] Comment on above: Performed By: #### L 501.8100 #### [facility] [address] [place], [address] Hemoglobin (Bld) [Mass/Vol] 14.3 g/dL Normal 12.0-15.0 [facility] Comment on above: Performed By: #### L 501.8100 #### [facility] [address] [place], [address] IG% 1.200 High 0.0-0.9 [facility] Comment on above: Result Comment: IG% - Immature Granulocytes (promyelocytes, myelocytes and metamyelocytes) > 1% indicates that a LEFT SHIFT is Present. Performed By: #### L 501.8100 #### [facility] [address] [place], [address] Lymphocytes/100 WBC (Bld) 31.6 % Normal 19-41 [facility] Comment on above: Performed By: #### L 501.8100 #### [facility] [address] [place], [address] MCH (RBC) [Entitic mass] 32.1 pg High 27.0-32.0 [facility] Comment on above: Performed By: #### L 501.8100 #### [facility] [address] [place], [address] MCHC (RBC) [Mass/Vol] 34.8 g/dL Normal 32-36 [facility] Comment on above: Performed By: #### L 501.8100 #### [facility] [address] [place], [address] MCV (RBC) [Entitic vol] 92.2 fL Normal 81-99 [facility] Comment on above: Performed By: #### L 501.8100 #### [facility] [address] [place], [address] Monocytes/100 WBC (Bld) 10.6 % High 0-10 [facility] Comment on above: Performed By: #### L 501.8100 #### [facility] [address] [place], [address] Neutrophils/100 WBC (Bld) 53.1 % Normal 47-70 [facility] Comment on above: Performed By: #### L 501.8100 #### [facility] [address] [place], [address] Nucleated RBC (Bld) [#/Vol] 0 10*3/uL Normal 0-5 [facility] Comment on above: Performed By: #### L 501.8100 #### [facility] [address] [place], [address] Platelet mean volume (Bld) [Entitic vol] 9.1 fL Normal 6.2-12.0 [facility] Comment on above: Performed By: #### L 501.8100 #### [facility] [address] [place], [address] Platelets (Bld) [#/Vol] 165 10*3/uL Normal 150-450 [facility] Comment on above: Performed By: #### L 501.8100 #### [facility] [address] [place], [address] RBC (Bld) [#/Vol] 4.46 10*6/uL Normal 4.2-5.4 [facility] Comment on above: Performed By: #### L 501.8100 #### [facility] [address] [place], [address] RDW SD 43.5 fl Normal 35.1-43.9 [facility] Comment on above: Performed By: #### L 501.8100 #### [facility] [address] [place], [address] WBC (Bld) [#/Vol] 7.5 10*3/uL Normal 4.4-11.0 [facility] Comment on above: Performed By: #### L 501.8100 #### [facility] [address] [place], [address] Comprehensive Metabolic Prof ilon 07-17-2024 Albumin [Mass/Vol] 3.4 g/dL Normal 3.2-5.0 [facility] Comment on above: Performed By: #### L 501.8100 #### [facility] [address] [place], [address] Albumin/Globulin [Mass ratio] 0.9 {ratio} Normal 0.9-2.4 [facility] Comment on above: Performed By: #### L 501.8100 #### [facility] [address] [place], [address] ALK P 159 U/L High 45-117 [facility] Comment on above: Performed By: #### L 501.8100 #### [facility] [address] [place], [address] ALT [Catalytic activity/Vol] 68 U/L High 13-56 [facility] Comment on above: Performed By: #### L 501.8100 #### [facility] [address] [place], [address] AST [Catalytic activity/Vol] 152 U/L High 15-37 [facility] Comment on above: Performed By: #### L 501.8100 #### [facility] [address] [place], [address] Bilirubin [Mass/Vol] 0.70 mg/dL Normal 0.20-1.00 [facility] Comment on above: Result Comment: For patients on eltrombopag therapy, use of Dimension Lignite TBIL is not recommended. Performed By: #### L 501.8100 #### [facility] [address] [place], [address] BUN/CRE 17.2 RATIO Normal 10-20 [facility] Comment on above: Performed By: #### L 501.8100 #### [facility] [address] [place], [address] CA,Total 8.6 mg/dL Normal 8.5-10.1 [facility] Comment on above: Performed By: #### L 501.8100 #### [facility] [address] [place], [address] Chloride [Moles/Vol] 102 mmol/L Normal 98-107 [facility] Comment on above: Performed By: #### L 501.8100 #### [facility] [address] [place], [address] CO2 [Moles/Vol] 29.0 mmol/L Normal 21.0-32.0 [facility] Comment on above: Performed By: #### L 501.8100 #### [facility] [address] [place], [address] Creatinine [Mass/Vol] 0.58 mg/dL Normal 0.55-1.02 [facility] Comment on above: Result Comment: The validity of the calculated GFR GFRAA in patients over 70 years has not been determined. Clinical correlation is essential. Performed By: #### L 501.8100 #### [facility] [address] [place], [address] ECRCL 100.83 ml/min Normal [facility] Comment on above: Performed By: #### L 501.8100 #### [facility] [address] [place], [address] EST GFR - AA 136 mL/min Normal >60 [facility] Comment on above: Result Comment: Afri can Hungarian GFR Calc Performed By: #### L 501.8100 #### [facility] [address] [place], [address] GAP 8 Normal 5-15 [facility] Comment on above: Performed By: #### L 501.8100 #### [facility] [address] [place], [address] GFR/1.73 sq M.predicted among non-blacks MDRD (S/P/Bld) [Vol rate/Area] 113 mL/min/{1.73_m2} Normal >60 [facility] Comment on above: Result Comment: Non- GFR Calc Performed By: #### L 501.8100 #### [facility] [address] [place], [address] Globulin (S) [Mass/Vol] 3.8 g/dL Normal 2.2-4.2 [facility] Comment on above: Performed By: #### L 501.8100 #### [facility] [address] [place], [address] Glucose [Mass/Vol] 113 mg/dL High 74-106 [facility] Comment on above: Result Comment: Fast ing Glucose result from 100 to 125 mg/dL suggests IMPAIRED HOMEOSTASIS per A.D.A. criteria. Performed By: #### L 501.8100 #### [facility] [address] [place], [address] Potassium [Moles/Vol] 3.3 mmol/L Low 3.5-5.1 [facility] Comment on above: Performed By: #### L 501.8100 #### [facility] [address] [place], [address] Sodium [Moles/Vol] 139 mmol/L Normal 136-145 [facility] Comment on above: Performed By: #### L 501.8100 #### [facility] [address] [place], [address] T PROT 7.2 g/dL Normal 6.4-8.2 [facility] Comment on above: Performed By: #### L 501.8100 #### [facility] [address] [place], [address] Urea nitrogen [Mass/Vol] 10 mg/dL Normal 7-18 [facility] Comment on above: Performed By: #### L 501.8100 #### [facility] [address] [place], [address] Emergency Department Summary on 07-17-2024 Emergency Department Summary [facility] Medical Records Department [address] [place] [address] Emergency Department Summary 07/17/24 MR#: [id number] Acct: [id number] Name: PARDEEP MARK Rep #: [id number] : 1965 59 From: Richelle MCKEON PCP: Dr. Tammy Karimi MD Status:ADM IN Location: [place] [address] HPI History of Present Illness Chief Complaint: Substance Abuse Narrative Narrative: Patient presenting today requesting to detox from alcohol. She reports that she drinks a bottle of rum daily and has been drinking like this since November 2023. She has never detoxed in the past. She did try to detox on her own today but became too shaky and had to start drinking again. She reports that she did drink about a quarter of a bottle of rum today. She denies any other substance use. 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 [facility] Medical History Amputation of leg Seizures Substance abuse Depression Failure of outpatient treatment Opioid use disorder Generalized anxiety disorder Major depressive disorder, recurrent severe without psychotic features History of drug overdose Drug abuse Unilateral above knee amputation Hyperlipemia Seizures Hyperlipidemia Home Medications ???Medication ???Instructions ???Recorded ???Last Taken ???Type acetaminophen 500 mg tablet 1,000 mg PO BID PRN PRN Pain 05/20/18 06/23/19 History ascorbic acid (vitamin C) 500 mg 1,000 mg PO DAILY supplement 05/20/18 07/17/24 History tablet (Vitamin C) aspirin 81 mg tablet,delayed 81 mg PO DAILY heart health 05/20/18 07/17/24 History release atorvastatin 40 mg tablet 40 mg PO DAILY 12/26/23 07/17/24 History buprenorphine 8 mg-naloxone 2 mg 2 tab sublingual DAILY 12/26/23 07/17/24 History sublingual tablet divalproex 500 mg tablet,delayed 500 mg PO BID Seizure disorder 07/01/24 07/17/24 Rx release #180 tabs escitalopram oxalate 10 mg tablet 10 mg PO DAILY 07/17/24 07/17/24 History Allergy/AdvReac Type Severity Reaction Status Date / Time metoclopramide HCl (From Allergy shaking Verified 07/17/24 11:03 Reglan) prochlorperazine (From Allergy Hives Verified 07/17/24 11:03 Compazine) promethazine (From Phenergan) Allergy Hives Verified 07/17/24 11:03 Family History Mother Dementia CVA (cerebral vascular accident) Myocardial infarction Father Heart disease Hypercholesteremia Surgical History H/O wrist surgery Social History household members: none Smoking Status: Never smoker alcohol intake: current details: occasional glass of wine substance use type: does not use caffeine: No do you feel safe at home: Yes ROS ROS ED Constitutional Constitutional ED: Denies chills or fever(s) Cardiovascular Cardiovascular: Denies chest pain Respiratory/Chest Respiratory/Chest: Denies dyspnea Gastrointestinal Gastrointestinal: Denies abdominal pain, nausea or vomiting Musculoskeletal Musculoskeletal: Denies arthralgias or myalgias Integumentary Denies rash Neurologic Neurologic: Denies weakness Psychiatric Psychiatric: Denies suicidal ideation EXAM Physical Exam Const Vital Signs: 07/17/24 11:01 Temperature 98.4 F Temperature Source Temporal Pulse Rate 116 H Respiratory Rate 17 Blood Pressure 152/108 H Blood Pressure Mean 122 Pulse Ox 96 Oxygen Delivery Method Room Air Positive well nourished, well developed and no apparent distress General Appearance ED: well developed HEENT Reports normocephalic and head/scalp atraumatic Mouth ED: Yes moist mucous membranes normal Eyes PERRL and EOMs intact bilaterally Neck full ROM and supple Chest Wall inspection of chest normal Resp normal respiratory effort and clear to auscultation bilaterally Cardio regular rate and regular rhythm GI soft to palpation, non-tender, non-distended and no masses Back/Spine normal ROM and normal to inspection Extremity normal to inspection and full ROM Neuro oriented x3, CN's II-XII intact bilaterally, moves all extremities, no focal motor deficits and no sensory deficits noted Sensorium / Orientation: awake and alert Psych mental status grossly normal and thought process normal Skin no rashes or lesions noted and no wounds Physical Exam Const Vital Signs: 07/17/24 11:01 Temperature 98.4 F Temperature Source Temporal Pulse Rate 116 H Respiratory Rate 17 Blood Pressure 152/108 H Blood P (more content not included)... Normal [facility] H AND P Exam - [facility] 07-17-2024 H&P Exam - Hospitalist [facility] Medical Records Department [address] [place] [address] H P Exam - Hospitalist 07/17/24 1204 MR#: [id number] Acct: [id number] Name: PARDEEP MARK Rep #: [id number] : 1965 59 From: Yola Garza MD PCP: Dr. Tammy Karimi MD Status:REG ER Location: ED HPI - General General Date of Admission: 07/17/24 Date of Service: 07/17/24 Chief Complaint: Tremors HPI Narrative PARDEEP MARK, is a 59 F who presented to the emergency department with a desire to undergo detoxification. Patient admitted to heavy alcohol use since November 2023. She drinks 1 bottle of rum almost on a daily basis. He had previously tried to quit cold turkey however was not successful. She finally called her daughter who brought her to the emergency department. Subsequently admitted to regular nursing floor for initiation of alcohol medical stabilization protocol [facility] Medical History Amputation of leg Seizures Substance abuse Depression Failure of outpatient treatment Opioid use disorder Generalized anxiety disorder Major depressive disorder, recurrent severe without psychotic features History of drug overdose Drug abuse Unilateral above knee amputation Hyperlipemia Seizures Hyperlipidemia Home Medications ???Medication ???Instructions ???Recorded ???Last Taken ???Type acetaminophen 500 mg tablet 1,000 mg PO BID PRN PRN Pain 05/20/18 06/23/19 History ascorbic acid (vitamin C) 500 mg 1,000 mg PO DAILY supplement 05/20/18 07/17/24 History tablet (Vitamin C) aspirin 81 mg tablet,delayed 81 mg PO DAILY heart health 05/20/18 07/17/24 History release atorvastatin 40 mg tablet 40 mg PO DAILY 12/26/23 07/17/24 History buprenorphine 8 mg-naloxone 2 mg 2 tab sublingual DAILY 12/26/23 07/17/24 History sublingual tablet divalproex 500 mg tablet,delayed 500 mg PO BID Seizure disorder 07/01/24 07/17/24 Rx release #180 tabs escitalopram oxalate 10 mg tablet 10 mg PO DAILY 07/17/24 07/17/24 History Allergy/AdvReac Type Severity Reaction Status Date / Time metoclopramide HCl (From Allergy shaking Verified 07/17/24 11:03 Reglan) prochlorperazine (From Allergy Hives Verified 07/17/24 11:03 Compazine) promethazine (From Phenergan) Allergy Hives Verified 07/17/24 11:03 Family History Mother Dementia CVA (cerebral vascular accident) Myocardial infarction Father Heart disease Hypercholesteremia Surgical History H/O wrist surgery Social History household members: none Smoking Status: Never smoker alcohol intake: current details: occasional glass of wine substance use type: does not use caffeine: No do you feel safe at home: Yes ROS ROS Narrative GENERAL: denies fever, chills, night sweats, HEENT: Nasal congestion RESPIRATORY: denies cough, sputum production, CARDIAC: denies chest pain, palpitations, orthopnea, PND GASTROINTESTINAL: denies abdominal pain, nausea, vomiting, melena, GENITOURINARY: denies dysuria, urgency, frequency, heamaturia EXTREMITY: denies swelling MUSCULOSKELETAL: denies current joint pain or tenderness NEUROLOGIC: denies focal numbness, weakness, tingling HEMATOLOGIC: denies easy bruising and/or hemorrhage INTEGUMENT: denies rashes PSYCHIATRIC: denies suicidal or homicidal ideation Vital Signs Vital Signs Vital Signs: 07/17/24 11:01 Temperature 98.4 F Temperature Source Temporal Pulse Rate 116 H Respiratory Rate 17 Blood Pressure 152/108 H Blood Pressure Mean 122 Pulse Ox 96 Oxygen Delivery Method Room Air Weight Weight: 76.204 kg Body Mass Index (BMI) 29.7 Physical Exam Narrative GENERAL: Tremulous HEENT: Atraumatic; EYES; Anicteric, Normal Conjunctiva NECK; supple, normal thyroid, RESPIRATORY: Diminished to auscultation CARDIOVASCULAR: Regular S1 S2, GI: soft, normoactive bowel sounds, : No Renal angle tenderness; EXTREMITIES: No edema, no clubbing, MUSCULOSKELETAL: Left AKA NEURO: Awake; no lateralizing signs. SKIN: No Rash PSYCH; Flat affect Results Lab / Micro Data 07/17/24 12:10 07/17/24 12:10 Assessment Plan Assessment/Plan (1) Alcohol withdrawal seizure without complication: PLAN: Plan Patient is a 56-year-old lady admitted with alcohol withdrawal 1. Acute alcohol withdrawal - Patient has been admitted for treatment with phenobarb taper in addition to adjuvant medications including gabapentin, Bentyl, hydroxyzine and clonidine as needed for alcohol withdrawal symptoms. Patient was also placed on thiamine and folic acidConsultation placed (more content not included)... Normal [facility] Urine Drug Screen (VISTA)on 07-17-2024 AMPHETAMINES Negative Normal <1000 ng/mL [facility] Comment on above: Performed By: #### L 501.8100 #### [facility] [address] [place], [place], [id number] BARBITIURATES Negative Normal < 200 ng/mL [facility] Comment on above: Performed By: #### L 501.8100 #### [facility] [address] [place], [place], [id number] BENZODIAZIPINE Negative Normal < 200 ng/mL [facility] Comment on above: Performed By: #### L [id number] #### [facility] [address] [place], [place], [id number] COCAINE Negative Normal < 300 ng/mL [facility] Comment on above: Performed By: #### L [id number] #### [facility] [address] [place], [address] ECSTACY Negative Normal < 500 ng/mL [facility] Comment on above: Performed By: #### L [id number] #### [facility] [address] [place], [address] METHADONE Negative Normal < 300 ng/mL [facility] Comment on above: Performed By: #### L [id number] #### [facility] [address] [place], [address] OPIATES Negative Normal < 300 ng/mL [facility] Comment on above: Performed By: #### L [id number] #### [facility] [address] [place], [address] PCP Negative Normal < 25 ng/mL [facility] Comment on above: Performed By: #### L 501.8100 #### [facility] [address] [place], [address] THC Negative Normal < 50 ng/mL [facility] Comment on above: Performed By: #### L 501.8100 #### [facility] [address] [place], [address] VISTA UDS PH 7 Normal [facility] Comment on above: Performed By: #### L [id number] #### [facility] [address] [place], [address] Neurology Visit Reporton Neurology Visit Report [facility] [address], [address] [place], [place] [address] OFFICE VISIT Date of Service: 07/01/24 MR#: [id number] Acct: [id number] Name: PARDEEP MARK Rep #: [id number] : 1965 Provider: Dr. Sea villalobos MD Age/Sex: 59/F Location: [facility]. Status: Signed HPI HPI Chief Complaint: Establish Care Details: The patient is a 59-year-old left handed female who presents to [facility]. She was referred 05/28/[address] Anselmo Gamez with [facility] in [place] for seizures. She had MRI of the brain done 12/03/2023 with radiology interpretation: Remote right basal ganglia lacunar infarcts and mild small vessel ischemic disease. She had CTA neck done 12/01/2023 with radiology interpretation: No hemodynamically significant stenosis of either internal carotid artery. Also had CTA head done 12/01/2023 with radiology interpretation: No large vessel occlusion. And she had a CT head done 12/01/2023 with radiology interpretation: No acute intracranial abnormality. 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 Patient is seen in neurology clinic. Patient is able to provide information on her own behalf. Extensive records from [facility] are also available for review. We will clinic records provide bulk of information. Patient has a very complex history. She had had a serious infection with MRSA (age 37) involving the left leg following knee surgery for torn meniscus at [facility]. Patient underwent multiple amputations and surgeries with respect to the left lower leg before the infection could be controlled. She has an amputation at the level of the pelvis with respect to the left leg. Patient also has a history of a remote infarct in the left basal ganglia resulting in a mild right facial palsy with slightly wider palpebral fissure and slight depression of corner of the mouth on the right side. Stroke occurred in the remote past and is treated with aspirin 81 mg p.o. daily. Patient presents for further management of seizure disorder. She has had a fairly long history of seizure disorder as noted in the records from [facility]. Patient has had multiple episodes of being found down with injury including dislocation right shoulder that apparently occurred as a consequence of intermittent seizures. She apparently had been on carbamazepine for about 20 years. She was noted to have frequent subtherapeutic levels of that drug. She was gradually weaned off of that medication about a year ago but then had a breakthrough seizure. Patient has been on Depakote 500 mg p.o. twice daily. She has been seizure-free since being on Depakote. There was 1 episode of breakthrough seizure while on Depakote. Patient been started on Cipro which apparently lowered her Depakote level. Once patient's Depakote level was reestablished and Cipro was stopped patient was placed back on Depakote 500 mg p.o. twice daily. Patient seems to be stable on Depakote 500 mg p.o. twice daily. 1 potential issue was that the patient now has what appears to be a high-frequency low amplitude tremor of the hands left greater than right. Patient is left-handed. 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 The tremor during my observation appears to reach moderate amplitudes. Patient tells me at times she has fairly severe shaking episodes. She also describes a feeling as if her organs within her chest are shaking. Patient was concerned that she may have Parkinson's disease. She has no bradykinesia or rigidity or other features suggestive of Parkinson's. Her tremor is not characteristic of Parkinson's but appears to be more of a cerebellar tremor. Nobody in her family has tremor that she knows of. Her mother did at age 72 of Alzheimer's disease. With respect to her seizures [facility] indicates that the patient is had multiple incidents of tongue biting. She was initially started on Keppra but continued to have episodes. She was eventually changed to carbamazepine which was not completely effective and now is on Depakote which does appear to be effective. Patient indicates that she drives. It should be noted that [facility] had indicated that she was not driving. Patient reported PTSD and a divorce about 3 years ago. Additional records from [facility] indicate the following Total number of current antiseizure medications was 1 Side effects to current antiseizure medications none seizure frequency at first visit was 7 per 6 months Longest seizure-free interval was 15 years. Complicating features include the fact that the patient has phantom pain referable to the left leg amputation. She has been placed on narcotic for controlling the pain was eventually switched to Suboxone. She is currently on chronic Suboxone treatment. Patient has had 1 psychiatric hospitalization where she was admitted for (more content not included)... Normal [facility] CBC W/Diff, Automatedon 03-14 PATH REV Reviewed [facility] Comment on above: Result Comment: Leuk ocytosis. Clinical correlation necessary. Dk Howe M.D. 03/31/24 AMENDED REPORT 03/31/2423 PATH REV previously reported as: November Performed By: #### L 501.5200 #### [facility] [address] [place], [address] Alcohol, Blood (Medical)-Ser umon 03-30-2024 SERUM ETOH < 3.0 Normal [facility] Comment on above: Result Comment: The serum:whole blood ethanol ratio is approximately 1.14 and varies slightly with hematocrit. Medical Alcohol reference interval and critical value in non-tolerant individuals; 50 - 100 Impairment 100 Intoxication 100 - 250 Severe Poisoning 250 - 400 Deep/possible fatal coma Performed By: #### L 501.9100 #### [facility] [address] [place], [place], [address] Emergency Department Summary on 03-30-2024 Emergency Department Summary [facility] Medical Records Department [address] [place] [address] Emergency Department Summary 03/30/24 MR#: [id number] Acct: [id number] Name: PARDEEP MARK Rep #: [id number] : 1965 58 From: Antonio Sidhu DO PCP: Dr. Tammy Karimi MD Status:REG ER Location: ED ADDENDUM by Dr. Edu Carvajal MD on 03/31/24 at 0753 Care was transferred to mi at 0700. I was informed by patient's nurse that she is agitated and restless. This may be due to her underlying psychiatric disorder and also need entertain po ssibility of alcohol withdrawal. Patient was treated with 0.5 mg of Ativan IV push. 03/31/24 0753 Cosigner Signature (if applicable): cc: Dr. Tammy Karimi MD * Signed ADDENDUM by Dr. Michael Dejesus DO on 03/30/24 at 2350 Care of the patient was turned over to mi pending placement. Patient was started to feel anxious. Patient was given a repeat dose of hydroxyzine. Patient felt better after this. Care of the patient will be turned over to the oncoming physician pending placement. 03/30/24 6748 Cosigner Signature (if applicable): cc: Dr. Tammy Karimi MD * Signed ADDENDUM by Dr. Vadim Mathias MD on 03/30/24 at 1531 Patient turned over to me. Her alcohol level came down and she was value by crisis who agrees she should be placed psychiatrically. Patient states she is starting to feel shaky like she is in withdrawal and wants to take one of her buprenorphine. She is a little hypertensive and tremulous according to the channel worker and she thinks that would be reasonable. I will tell nursing to allow her to have 1. Searching for placement. 03/30/24 1531 Cosigner Signature (if applicable): cc: Dr. Tammy Karimi MD * Signed HPI History of Present Illness Chief Complaint: Overdose Informant: patient, EMS and police/fitter hand Narrative Narrative: Patient is a 58-year-old female with past medical history of anxiety depression hyperlipidemia and seizure disorder. She was brought in by EMS after police were called to do a well check. Please report that they were called by the patient's children to do a well check and when they arrived they knocked but there was no answer. They then entered the home and found the patient in the bathroom in her wheelchair slumped over unresponsive but breathing. They report there was an empty bottle of rum present and they found to pill bottles which were Suboxone. Please also report that there was a pair of bloody scissors and patient does have superficial abrasions to her right wrist. With the patient appearing as a potential overdose and suicidal attempt she was given Narcan by EMS prior to arrival. Upon arrival to the ER the patient is slurring her speech and is uncooperative and will not give a history or review of systems [facility] Medical History Seizures Substance abuse Depression Failure of outpatient treatment Opioid use disorder Generalized anxiety disorder Major depressive disorder, recurrent severe without psychotic features History of drug overdose Drug abuse Unilateral above knee amputation Hyperlipemia Seizures Hyperlipidemia Home Medications ???Medication ???Instructions ???Recorded ???Last Taken ???Type acetaminophen 500 mg tablet 1,000 mg PO BID PRN PRN Pain 05/20/18 06/23/19 History ascorbic acid (vitamin C) 500 mg 1,000 mg PO DAILY supplement 05/20/18 08/26/22 History tablet (Vitamin C) aspirin 81 mg tablet,delayed 81 mg PO DAILY heart health 05/20/18 08/26/22 History release divalproex 500 mg tablet,delayed 500 mg PO BID 11/30/23 Unknown History release atorvastatin 40 mg tablet 40 mg PO DAILY 12/26/23 Unknown History buprenorphine 8 mg-naloxone 2 mg 2 tab sublingual DAILY 12/26/23 Unknown History sublingual tablet Allergy/AdvReac Type Severity Reaction Status Date / Time metoclopramide HCl (From Allergy shaking Verified 03/29/24 22:09 Reglan) prochlorperazine (From Allergy Hives Verified 03/29/24 22:09 Compazine) promethazine (From Phenergan) Allergy Hives Verified 03/29/24 22:09 Surgical History H/O wrist surgery Social History household members: none Smoking Status: Never smoker alcohol intake: never substance use type: does not use ROS ROS ED ROS Narrative Review of systems is unable to be obtained as patient is uncooperative EXAM Physical Exam Const Vital Signs: 03/29/24 22:09 03/29/24 23:08 03/30/24 00:00 Temperature 97.3 F L Temperature Source Temporal Pulse Rate 149 H 101 H 108 H Respiratory Rate 24 H 18 Blood Pressure 141/114 H 142/93 H 148/1 (more content not included)... Normal [facility] Urine Drug Screen (VISTA)on 03-30-2024 AMPHETAMINES Negative Normal <1000 ng/mL [facility] Comment on above: Performed By: #### L [id number] #### [facility] [address] [place], [place], [id number] BARBITIURATES Negative Normal < 200 ng/mL [facility] Comment on above: Performed By: #### L 978.5200 #### [facility] [address] [place], [address] BENZODIAZIPINE Negative Normal < 200 ng/mL [facility] Comment on above: Performed By: #### L 124.5200 #### [facility] [address] [place], [address] COCAINE Negative Normal < 300 ng/mL [facility] Comment on above: Performed By: #### L 501.5200 #### [facility] [address] [place], [address] ECSTACY Negative Normal < 500 ng/mL [facility] Comment on above: Performed By: #### L [id number] #### [facility] [address] [place], [address] METHADONE Negative Normal < 300 ng/mL [facility] Comment on above: Performed By: #### L 5010 #### [facility] [address] [place], [address] OPIATES Negative Normal < 300 ng/mL [facility] Comment on above: Performed By: #### L 5010 #### [facility] [address] [place], [address] PCP Negative Normal < 25 ng/mL [facility] Comment on above: Performed By: #### L 5010 #### [facility] [address] [place], [address] THC Negative Normal < 50 ng/mL [facility] Comment on above: Performed By: #### L 501.0 #### [facility] [address] [place], [address] VISTA UDS PH 6 Normal [facility] Comment on above: Performed By: #### L 501.0 #### [facility] [address] [place], [address] Acetaminophen (Tylenol) Levetienne campos 03-29-2024 Acetaminophen [Mass/Vol] ug/mL Low 10.0-30.0 [facility] Comment on above: Performed By: #### L 501.5200 #### [facility] [address] [place], [address] Alcohol, Blood (Medical)-Ser umon 03-29-2024 SERUM ETOH 373.0 mg/dL Invalid Interpretation Code [facility] Comment on above: Result Comment: The serum:whole blood ethanol ratio is approximately 1.14 and varies slightly with hematocrit. Medical Alcohol reference interval and critical value in non-tolerant individuals; 50 - 100 Impairment 100 Intoxication 100 - 250 Severe Poisoning 250 - 400 Deep/possible fatal coma Performed By: #### L 501.5200 #### [facility] [address] [place], [address] Basic Metabolic Profile (BMP )on 03-29-2024 BUN/CRE 16.8 RATIO Normal 10-20 [facility] Comment on above: Performed By: #### L 501.8100 #### [facility] [address] [place], [address] CA,Total 8.6 mg/dL Normal 8.5-10.1 [facility] Comment on above: Performed By: #### L 501.8100 #### [facility] [address] [place], [address] Chloride [Moles/Vol] 104 mmol/L Normal 98-107 [facility] Comment on above: Performed By: #### L 501.8100 #### [facility] [address] [place], [place], [address] CO2 [Moles/Vol] 25.0 mmol/L Normal 21.0-32.0 [facility] Comment on above: Performed By: #### L 501.8100 #### [facility] [address] [place], [address] Creatinine [Mass/Vol] 0.71 mg/dL Normal 0.55-1.02 [facility] Comment on above: Result Comment: The validity of the calculated GFR GFRAA in patients over 70 years has not been determined. Clinical correlation is essential. Performed By: #### L 501.8100 #### [facility] [address] [place], [address] ECRCL 84.96 ml/min Normal [facility] Comment on above: Performed By: #### L 501.8100 #### [facility] [address] [place], [address] EST GFR - AA 108 mL/min Normal >60 [facility] Comment on above: Result Comment: Afri can Hungarian GFR Calc Performed By: #### L 501.8100 #### [facility] [address] [place], [address] GAP 11 Normal 5-15 [facility] Comment on above: Performed By: #### L 501.8100 #### [facility] [address] [place], [address] GFR/1.73 sq M.predicted among non-blacks MDRD (S/P/Bld) [Vol rate/Area] 89 mL/min/{1.73_m2} Normal >60 [facility] Comment on above: Result Comment: Non- GFR Calc Performed By: #### L 501.8100 #### [facility] [address] [place], [address] Glucose [Mass/Vol] 193 mg/dL High 74-106 [facility] Comment on above: Result Comment: Fast ing Glucose result greater than or equal to 126 mg/dL suggests DIABETES MELLITUS per A.D.A. criteria. Performed By: #### L 501.8100 #### [facility] [address] [place], [address] Potassium [Moles/Vol] 3.2 mmol/L Low 3.5-5.1 [facility] Comment on above: Performed By: #### L 501.8100 #### [facility] [address] [place], [address] Sodium [Moles/Vol] 140 mmol/L Normal 136-145 [facility] Comment on above: Performed By: #### L 501.8100 #### [facility] [address] [place], [address] Urea nitrogen [Mass/Vol] 12 mg/dL Normal 7-18 [facility] Comment on above: Performed By: #### L 501.8100 #### [facility] [address] [place], [address] Liver Profileon 03-29-2024 Albumin [Mass/Vol] 3.6 g/dL Normal 3.2-5.0 [facility] Comment on above: Performed By: #### L 501.8100 #### [facility] [address] [place], [address] ALK P 108 U/L Normal 45-117 [facility] Comment on above: Performed By: #### L 501.8100 #### [facility] [address] [place], [address] ALT [Catalytic activity/Vol] 34 U/L Normal 13-56 [facility] Comment on above: Performed By: #### L 501.8100 #### [facility] [address] [place], [address] AST [Catalytic activity/Vol] 56 U/L High 15-37 [facility] Comment on above: Performed By: #### L 501.8100 #### [facility] [address] [place], [address] Bilirubin [Mass/Vol] 0.20 mg/dL Normal 0.20-1.00 [facility] Comment on above: Result Comment: For patients on eltrombopag therapy, use of Dimension Lignite TBIL is not recommended. Performed By: #### L 501.8100 #### [facility] [address] [place], [address] Bilirubin.direct [Mass/Vol] 0.10 mg/dL Normal 0.00-0.30 [facility] Comment on above: Performed By: #### L 501.8100 #### [facility] [address] [place], [place], [address] Globulin (S) [Mass/Vol] 3.7 g/dL Normal 2.2-4.2 [facility] Comment on above: Performed By: #### L 501.8100 #### [facility] [address] [place], [address] T PROT 7.3 g/dL Normal 6.4-8.2 [facility] Comment on above: Performed By: #### L 501.8100 #### [facility] [address] [place], [place], [address] Salicylateon 03-29-2024 SALICYLATE < 1.7 Low 2.8-20.0 [facility] Comment on above: Performed By: #### L 501.5200 #### [facility] [address] [place], [place], [address] .Auto Diffon 12-05-2023 Basophil, Absolute 0.1 10 3/mcL Normal 0.0-0.3 [facility] ([place]) Comment on above: Performed By: #### B MP, ANEU, GFR, ADIFF, CBC #### [address] [address] Basophils/100 WBC (Bld) 0.7 % Normal 0.0-2.5 [facility] ([place]) Comment on above: Performed By: #### B MP, ANEU, GFR, ADIFF, CBC #### [address] [address] Eosinophil, Absolute 0.4 10 3/mcL Normal 0.0-0.7 [facility] ([place]) Comment on above: Performed By: #### B MP, ANEU, GFR, ADIFF, CBC #### [address] [address] Eosinophils/100 WBC (Bld) 4.5 % Normal 0.0-6.0 [facility] ([place]) Comment on above: Performed By: #### B MP, ANEU, GFR, ADIFF, CBC #### [address] [address] Lymphocyte, Absolute 3.6 10 3/mcL Normal 0.9-4.3 [facility] ([place]) Comment on above: Performed By: #### B MP, ANEU, GFR, ADIFF, CBC #### [address] [address] Lymphocytes/100 WBC (Bld) 36.0 % Normal 20.0-40.0 [facility] ([place]) Comment on above: Performed By: #### B MP, ANEU, GFR, ADIFF, CBC #### [address] [address] Monocyte, Absolute 1.0 10 3/mcL Normal 0.1-1.4 [facility] ([place]) Comment on above: Performed By: #### B MP, ANEU, GFR, ADIFF, CBC #### [address] [address] Monocytes/100 WBC (Bld) 9.8 % Normal 2.0-13.0 [facility] ([place]) Comment on above: Performed By: #### B MP, ANEU, GFR, ADIFF, CBC #### [address] [address] Neutrophils/100 WBC (Bld) 49.0 % Low 50.0-75.0 [facility] ([place]) Comment on above: Performed By: #### B MP, ANEU, GFR, ADIFF, CBC #### [address] [address] .GFRon 12-05-2023 GFR >60 Normal [facility] ([place]) Comment on above: Result Comment: GFR Population mean for , Non- Americans Ages 20-29 = 116 mL/min/1.73 sq.m. Ages 30-39 = 107 mL/min/1.73 sq.m. Ages 40-49 = 99 mL/min/1.73 sq.m. Ages 50-59 = 93 mL/min/1.73 sq.m. Ages 60-69 = 85 mL/min/1.73 sq.m. Ages 70+ = 75 mL/min/1.73 sq.m. Chronic Kidney Disease: Less than 60 mL/min/1.73 square meters End Stage Renal Disease: Less than 15 mL/min/1.73 square meters Performed By: #### B MP, ANEU, GFR, ADIFF, CBC #### [address] [address] GFR Non- >60 Normal [facility] ([place]) Comment on above: Result Comment: GFR Population mean for , Non- Americans Ages 20-29 = 116 mL/min/1.73 sq.m. Ages 30-39 = 107 mL/min/1.73 sq.m. Ages 40-49 = 99 mL/min/1.73 sq.m. Ages 50-59 = 93 mL/min/1.73 sq.m. Ages 60-69 = 85 mL/min/1.73 sq.m. Ages 70+ = 75 mL/min/1.73 sq.m. Chronic Kidney Disease: Less than 60 mL/min/1.73 square meters End Stage Renal Disease: Less than 15 mL/min/1.73 square meters Performed By: #### B MP, ANEU, GFR, ADIFF, CBC #### [address] [address] .NEUABSon 12-05-2023 Neutrophil, Absolute 4.8 10 3/mcL Normal 2.3-8.1 [facility] ([place] Comment on above: Performed By: #### B MP, ANEU, GFR, ADIFF, CBC #### [address] [address] BMPon 12-05-2023 BUN/Creatinine Ratio 23.3 ratio High 10.0-22.0 [facility] ([place]) Comment on above: Performed By: #### B MP, ANEU, GFR, ADIFF, CBC #### [address] [address] Calcium [Mass/Vol] 8.8 mg/dL Normal 8.7-10.4 [facility] ([place]) Comment on above: Performed By: #### B MP, ANEU, GFR, ADIFF, CBC #### [address] [address] Chloride [Moles/Vol] 109 mmol/L Normal 98-110 [facility] ([place]) Comment on above: Performed By: #### B MP, ANEU, GFR, ADIFF, CBC #### [address] [address] CO2 [Moles/Vol] 30 mmol/L Normal 22-32 [facility] ([place]) Comment on above: Performed By: #### B MP, ANEU, GFR, ADIFF, CBC #### [address] [address] Creatinine [Mass/Vol] 0.73 mg/dL Normal 0.50-1.20 [facility] ([place]) Comment on above: Performed By: #### B MP, ANEU, GFR, ADIFF, CBC #### [address] [address] Electrolyte Balance 5.0 mEq/L Normal 4.0-15.0 [facility] ([place]) Comment on above: Performed By: #### B MP, ANEU, GFR, ADIFF, CBC #### [address] [address] Glucose [Mass/Vol] 73 mg/dL Normal 70-110 [facility] ([place]) Comment on above: Performed By: #### B MP, ANEU, GFR, ADIFF, CBC #### [address] [address] Potassium [Moles/Vol] 4.1 mmol/L Normal 3.5-5.0 [facility] ([place]) Comment on above: Performed By: #### B MP, ANEU, GFR, ADIFF, CBC #### [address] [address] Sodium [Moles/Vol] 144 mmol/L Normal 136-145 [facility] ([place]) Comment on above: Performed By: #### B MP, ANEU, GFR, ADIFF, CBC #### [place] [id number] Urea nitrogen [Mass/Vol] 17.0 mg/dL Normal 8.0-22.0 [facility] ([place]) Comment on above: Performed By: #### B MP, ANEU, GFR, ADIFF, CBC #### [place] [id number] CBCon 12-05-2023 Erythrocyte distribution width (RBC) [Ratio] 13.0 % Normal 11.5-15.5 [facility] ([place]) Comment on above: Performed By: #### B MP, ANEU, GFR, ADIFF, CBC #### [place] [address] Hematocrit (Bld) [Volume fraction] 33.9 % Low 34.0-46.0 [facility] ([place]) Comment on above: Performed By: #### B MP, ANEU, GFR, ADIFF, CBC #### [place] [address] Hgb 11.5 G/dL Low 12.0-16.0 [facility] ([place]) Comment on above: Performed By: #### B MP, ANEU, GFR, ADIFF, CBC #### [place] [address] MCH (RBC) [Entitic mass] 31.0 pg Normal 27.0-33.0 [facility] ([place]) Comment on above: Performed By: #### B MP, ANEU, GFR, ADIFF, CBC #### [place] [address] MCHC 33.9 G/dL Normal 32.0-36.0 [facility] ([place]) Comment on above: Performed By: #### B MP, ANEU, GFR, ADIFF, CBC #### [place] [address] MCV (RBC) [Entitic vol] 91.5 fL Normal 80.0-99.0 [facility] ([place]) Comment on above: Performed By: #### B MP, ANEU, GFR, ADIFF, CBC #### [place] [address] Platelet 207 10 3/mcL Normal 150-450 [facility] ([place]) Comment on above: Performed By: #### B MP, ANEU, GFR, ADIFF, CBC #### [address] [address] Platelet mean volume (Bld) [Entitic vol] 9.1 fL Normal 6.6-10.5 [facility] ([place]) Comment on above: Performed By: #### B MP, ANEU, GFR, ADIFF, CBC #### [place] [address] RBC 3.70 10 6/mcL Low 4.10-5.30 [facility] ([place]) Comment on above: Performed By: #### B MP, ANEU, GFR, ADIFF, CBC #### [place] [id number] WBC 9.9 10 3/mcL Normal 4.5-10.8 [facility] ([place]) Comment on above: Performed By: #### B MP, ANEU, GFR, ADIFF, CBC #### [address] [address] LABORATORYOrdered By: SYSTEM SYSTEM on 12-05-2023 Basophils (Bld) [#/Vol] 0.1 103/mcL Normal 0.0 - 0.3 10^3/mcL Workflow SS Basophils/100 WBC (Bld) 0.7 % Normal 0.0 - 2.5 % Workflow SS Calcium [Mass/Vol] 8.8 mg/dL Normal 8.7 - 10. 4 mg/dL ADM SS Chloride [Moles/Vol] 109 mmol/L Normal 98 - 110 mEq/L ADM SS CO2 [Moles/Vol] 30 mmol/L Normal 22 - 32 mEq/L ADM SS Creatinine [Mass/Vol] 0.73 mg/dL Normal 0.50 - 1.20 mg/dL ADM SS Electrolyte Balance 5.0 mEq/L Normal 4.0 - 15 .0 mEq/L ADM SS Eosinophils (Bld) [#/Vol] 0.4 103/mcL Normal 0.0 - 0.7 10^3/mcL AH Workflow SS Eosinophils/100 WBC (Bld) 4.5 % Normal 0.0 - 6.0 % AH Workflow SS Erythrocyte distribution width (RBC) [Ratio] 13.0 % Normal 11.5 - 15.5 % Workflow SS GFR/1.73 sq M.predicted among blacks MDRD (S/P/Bld) [Vol rate/Area] ml/min/1.73sqm Invalid Interpretation Code Chemistry S Comment on above: Interpretive Data: GFR Population mean for , Non- Americans Ages 20-29 = 116 mL/min/1.73 sq.m. Ages 30-39 = 107 mL/min/1.73 sq.m. Ages 40-49 = 99 mL/min/1.73 sq.m. Ages 50-59 = 93 mL/min/1.73 sq.m. Ages 60-69 = 85 mL/min/1.73 sq.m. Ages 70+ = 75 mL/min/1.73 sq.m. Chronic Kidney Disease: Less than 60 mL/min/1.73 square meters End Stage Renal Disease: Less than 15 mL/min/1.73 square meters GFR/1.73 sq M.predicted among non-blacks MDRD (S/P/Bld) [Vol rate/Area] ml/min/1.73sqm Invalid Interpretation Code Chemistry S Comment on above: Interpretive Data: GFR Population mean for , Non- Americans Ages 20-29 = 116 mL/min/1.73 sq.m. Ages 30-39 = 107 mL/min/1.73 sq.m. Ages 40-49 = 99 mL/min/1.73 sq.m. Ages 50-59 = 93 mL/min/1.73 sq.m. Ages 60-69 = 85 mL/min/1.73 sq.m. Ages 70+ = 75 mL/min/1.73 sq.m. Chronic Kidney Disease: Less than 60 mL/min/1.73 square meters End Stage Renal Disease: Less than 15 mL/min/1.73 square meters Glucose [Mass/Vol] 73 mg/dL Normal 70 - 110 mg/dL ADM SS Hematocrit (Bld) [Volume fraction] 33.9 % Low 34.0 - 46.0 % Workflow SS Hemoglobin (Bld) [Mass/Vol] 11.5 G/dL Low 12.0 - 16.0 G/dL AH Workflow SS Lymphocytes (Bld) [#/Vol] 3.6 103/mcL Normal 0.9 - 4.3 10^3/mcL AH Workflow SS Lymphocytes/100 WBC (Bld) 36.0 % Normal 20.0 - 40.0 % AH Workflow SS MCH (RBC) [Entitic mass] 31.0 pg Normal 27.0 - 33.0 pg AH Workflow SS MCHC 33.9 G/dL Normal 32.0 - 36.0 G/dL AH Workflow SS MCV (RBC) [Entitic vol] 91.5 fL Normal 80.0 - 99.0 fL AH Workflow SS Monocytes (Bld) [#/Vol] 1.0 103/mcL Normal 0.1 - 1.4 10^3/mcL AH Workflow SS Monocytes/100 WBC (Bld) 9.8 % Normal 2.0 - 13.0 % AH Workflow SS Neutrophils (Bld) [#/Vol] 4.8 103/mcL Normal 2.3 - 8.1 10^3/mcL AH Workflow SS Neutrophils/100 WBC (Bld) 49.0 % Low 50.0 - 75.0 % AH Workflow SS Platelet mean volume (Bld) [Entitic vol] 9.1 fL Normal 6.6 - 10.5 fL AH Workflow SS Platelets (Bld) [#/Vol] 207 103/mcL Normal 150 - 450 10^3/mcL AH Workflow SS Potassium [Moles/Vol] 4.1 mmol/L Normal 3.5 - 5.0 mEq/L AH ADM SS RBC (Bld) [#/Vol] 3.70 106/mcL Low 4.10 - 5.3 0 10^6/mcL AH Workflow SS Sodium [Moles/Vol] 144 mmol/L Normal 136 - 145 mEq/L AH ADM SS Urea nitrogen [Mass/Vol] 17.0 mg/dL Normal 8.0 - 22.0 mg/dL AH ADM SS Urea nitrogen/Creatinine [Mass ratio] 23.3 ratio High 10.0 - 22.0 ratio AH ADM SS WBC (Bld) [#/Vol] 9.9 103/mcL Normal 4.5 - 10.8 10^3/mcL AH Workflow SS Riaz 12-04-2023 Ammonia 41 mcmol/l High 11-32 [facility] ([place]) Comment on above: Performed By: #### B MP, ANEU, GFR, ADIFF, CBC #### [place] [address] LABORATORYOrdered By: SYSTEM SYSTEM on 12-04-2023 Ammonia (P) [Moles/Vol] 41 umol/L High 11 - 32 mcmol/L AH ADM SS Valproate [Mass/Vol] 102.4 ug/mL Normal 50.0 - 130.0 mcg/mL AH ADM SS LABORATORYOrdered By: Ventura Engel on 12-04-2023 LDose Valproic Acid: See eMAR (12/04/23 7:35 AM) Normal AH Chemistry S VALPRon 12-04-2023 LDose Valproic Acid: See eMAR Normal [facility] ([place]) Comment on above: Performed By: #### B MP, ANEU, GFR, ADIFF, CBC #### [place] [address] Valproic Acid Lvl 102.4 mcg/mL Normal 50.0-130.0 [facility] ([place]) Comment on above: Performed By: #### B MP, ANEU, GFR, ADIFF, CBC #### [address] [address] .Auto Diffon 12-03-2023 Basophil, Absolute 0.1 10 3/mcL Normal 0.0-0.3 [facility] ([place]) Comment on above: Performed By: #### A AZAEL, GFR, ADIFF, CMP, LIPID, CBC #### [place] [id number] Basophils/100 WBC (Bld) 0.4 % Normal 0.0-2.5 [facility] ([place]) Comment on above: Performed By: #### A AZAEL, GFR, ADIFF, CMP, LIPID, CBC #### [place] [id number] Eosinophil, Absolute 0.2 10 3/mcL Normal 0.0-0.7 [facility] ([place]) Comment on above: Performed By: #### A AZAEL, GFR, ADIFF, CMP, LIPID, CBC #### [place] [address] Eosinophils/100 WBC (Bld) 1.1 % Normal 0.0-6.0 [facility] ([place]) Comment on above: Performed By: #### A AZAEL, GFR, ADIFF, CMP, LIPID, CBC #### [address] [address] Lymphocyte, Absolute 2.6 10 3/mcL Normal 0.9-4.3 [facility] ([place]) Comment on above: Performed By: #### A AZAEL, GFR, ADIFF, CMP, LIPID, CBC #### [address] [address] Lymphocytes/100 WBC (Bld) 18.8 % Low 20.0-40.0 [facility] ([place]) Comment on above: Performed By: #### A AZAEL, GFR, ADIFF, CMP, LIPID, CBC #### [address] [address] Monocyte, Absolute 1.1 10 3/mcL Normal 0.1-1.4 [facility] ([place]) Comment on above: Performed By: #### A AZAEL, GFR, ADIFF, CMP, LIPID, CBC #### [address] [address] Monocytes/100 WBC (Bld) 7.5 % Normal 2.0-13.0 [facility] ([place]) Comment on above: Performed By: #### A AZAEL, GFR, ADIFF, CMP, LIPID, CBC #### [address] [address] Neutrophils/100 WBC (Bld) 72.2 % Normal 50.0-75.0 [facility] ([place]) Comment on above: Performed By: #### A AZAEL, GFR, ADIFF, CMP, LIPID, CBC #### [address] [address] .GFRon 12-03-2023 GFR >60 Normal [facility] ([place]) Comment on above: Result Comment: GFR Population mean for , Non- Americans Ages 20-29 = 116 mL/min/1.73 sq.m. Ages 30-39 = 107 mL/min/1.73 sq.m. Ages 40-49 = 99 mL/min/1.73 sq.m. Ages 50-59 = 93 mL/min/1.73 sq.m. Ages 60-69 = 85 mL/min/1.73 sq.m. Ages 70+ = 75 mL/min/1.73 sq.m. Chronic Kidney Disease: Less than 60 mL/min/1.73 square meters End Stage Renal Disease: Less than 15 mL/min/1.73 square meters Performed By: #### B MP, ANEU, GFR, ADIFF, CBC #### [address] [address] GFR Non- >60 Normal [facility] ([place]) Comment on above: Result Comment: GFR Population mean for , Non- Americans Ages 20-29 = 116 mL/min/1.73 sq.m. Ages 30-39 = 107 mL/min/1.73 sq.m. Ages 40-49 = 99 mL/min/1.73 sq.m. Ages 50-59 = 93 mL/min/1.73 sq.m. Ages 60-69 = 85 mL/min/1.73 sq.m. Ages 70+ = 75 mL/min/1.73 sq.m. Chronic Kidney Disease: Less than 60 mL/min/1.73 square meters End Stage Renal Disease: Less than 15 mL/min/1.73 square meters Performed By: #### B MP, ANEU, GFR, ADIFF, CBC #### [address] [address] .NEUABSon 12-03-2023 Neutrophil, Absolute 10.1 10 3/mcL High 2.3-8.1 A [facility] ([place]) Comment on above: Performed By: #### A AZAEL, GFR, ADIFF, CMP, LIPID, CBC #### [address] [address] A1Con 12-03-2023 HbA1c (Bld) [Mass fraction] 5.0 % Normal 4.0-6.0 [facility] ([place]) Comment on above: Performed By: #### B MP, ANEU, GFR, ADIFF, CBC #### [address] [address] CBCon 12-03-2023 Erythrocyte distribution width (RBC) [Ratio] 12.7 % Normal 11.5-15.5 [facility] ([place]) Comment on above: Performed By: #### A AZAEL, GFR, ADIFF, CMP, LIPID, CBC #### [place] [address] Hematocrit (Bld) [Volume fraction] 37.6 % Normal 34.0-46.0 [facility] ([place]) Comment on above: Performed By: #### A AZAEL, GFR, ADIFF, CMP, LIPID, CBC #### [place] [address] Hgb 13.0 G/dL Normal 12.0-16.0 [facility] ([place]) Comment on above: Performed By: #### A AZAEL, GFR, ADIFF, CMP, LIPID, CBC #### [place] [id number] MCH (RBC) [Entitic mass] 31.6 pg Normal 27.0-33.0 [facility] ([place]) Comment on above: Performed By: #### A AZAEL, GFR, ADIFF, CMP, LIPID, CBC #### [place] [address] MCHC 34.6 G/dL Normal 32.0-36.0 [facility] ([place]) Comment on above: Performed By: #### A AZAEL, GFR, ADIFF, CMP, LIPID, CBC #### [place] [address] MCV (RBC) [Entitic vol] 91.1 fL Normal 80.0-99.0 [facility] ([place]) Comment on above: Performed By: #### A AZAEL, GFR, ADIFF, CMP, LIPID, CBC #### [place] [id number] Platelet 218 10 3/mcL Normal 150-450 [facility] ([place]) Comment on above: Performed By: #### A AZAEL, GFR, ADIFF, CMP, LIPID, CBC #### [place] [address] Platelet mean volume (Bld) [Entitic vol] 9.1 fL Normal 6.6-10.5 [facility] ([place]) Comment on above: Performed By: #### A AZAEL, GFR, ADIFF, CMP, LIPID, CBC #### [address] [address] RBC 4.12 10 6/mcL Normal 4.10-5.30 [facility] ([place]) Comment on above: Performed By: #### A AZAEL, GFR, ADIFF, CMP, LIPID, CBC #### [place] [id number] WBC 14.0 10 3/mcL High 4.5-10.8 [facility] ([place]) Comment on above: Performed By: #### A AZAEL, GFR, ADIFF, CMP, LIPID, CBC #### [place] [address] CMPon 12-03-2023 Albumin Level 3.4 G/dL Normal 3.2-4.8 [facility] ([place]) Comment on above: Performed By: #### A AZAEL, GFR, ADIFF, CMP, LIPID, CBC #### [place] [address] Albumin/Globulin [Mass ratio] 1.1 {ratio} Normal 0.9-1.6 [facility] ([place]) Comment on above: Performed By: #### A AZAEL, GFR, ADIFF, CMP, LIPID, CBC #### [address] [address] ALP [Catalytic activity/Vol] 62 U/L Normal 38-126 [facility] ([place]) Comment on above: Performed By: #### A AZAEL, GFR, ADIFF, CMP, LIPID, CBC #### [address] [address] ALT [Catalytic activity/Vol] 13 U/L Normal 10-49 [facility] ([place]) Comment on above: Performed By: #### A AZAEL, GFR, ADIFF, CMP, LIPID, CBC #### [place] [address] AST [Catalytic activity/Vol] 21 U/L Normal 8-34 [facility] ([place]) Comment on above: Performed By: #### A AZAEL, GFR, ADIFF, CMP, LIPID, CBC #### [address] [address] Bili Total 0.60 mg/dL Normal 0.20-1.20 [facility] ([place]) Comment on above: Result Comment: Use of this assay is not recommended for patients undergoing treatment with eltrombopag due to the potential for falsely elevated results. Performed By: #### A AZAEL, GFR, ADIFF, CMP, LIPID, CBC #### [place] [address] BUN/Creatinine Ratio 36.5 ratio High 10.0-22.0 [facility] ([place]) Comment on above: Performed By: #### A AZAEL, GFR, ADIFF, CMP, LIPID, CBC #### [place] [address] Calcium [Mass/Vol] 9.3 mg/dL Normal 8.7-10.4 [facility] ([place]) Comment on above: Performed By: #### A AZAEL, GFR, ADIFF, CMP, LIPID, CBC #### [place] [address] Chloride [Moles/Vol] 105 mmol/L Normal 98-110 [facility] ([place]) Comment on above: Performed By: #### A AZAEL, GFR, ADIFF, CMP, LIPID, CBC #### [place] [address] CO2 [Moles/Vol] 30 mmol/L Normal 22-32 [facility] ([place]) Comment on above: Performed By: #### A AZAEL, GFR, ADIFF, CMP, LIPID, CBC #### [address] [address] Creatinine [Mass/Vol] 0.52 mg/dL Normal 0.50-1.20 [facility] ([place]) Comment on above: Performed By: #### A AZAEL, GFR, ADIFF, CMP, LIPID, CBC #### [place] [id number] Electrolyte Balance 7.0 mEq/L Normal 4.0-15.0 [facility] ([place]) Comment on above: Performed By: #### A AZAEL, GFR, ADIFF, CMP, LIPID, CBC #### [address] [address] Globulin 3.1 G/dL Normal 1.5-3.8 [facility] ([place]) Comment on above: Performed By: #### A AZAEL, GFR, ADIFF, CMP, LIPID, CBC #### [address] [address] Glucose [Mass/Vol] 89 mg/dL Normal 70-110 [facility] ([place]) Comment on above: Performed By: #### A AZAEL, GFR, ADIFF, CMP, LIPID, CBC #### [address] [address] Potassium [Moles/Vol] 3.8 mmol/L Normal 3.5-5.0 [facility] ([place]) Comment on above: Performed By: #### A AZAEL, GFR, ADIFF, CMP, LIPID, CBC #### [place] [id number] Sodium [Moles/Vol] 142 mmol/L Normal 136-145 [facility] ([place]) Comment on above: Performed By: #### A AZAEL, GFR, ADIFF, CMP, LIPID, CBC #### [place] [address] Total Protein 6.5 G/dL Normal 5.7-8.2 [facility] ([place]) Comment on above: Result Comment: No te - New Reference Range in effect 20 Performed By: #### A AZAEL, GFR, ADIFF, CMP, LIPID, CBC #### [address] [address] Urea nitrogen [Mass/Vol] 19.0 mg/dL Normal 8.0-22.0 [facility] ([place]) Comment on above: Performed By: #### A AZAEL, GFR, ADIFF, CMP, LIPID, CBC #### [address] [address] LABORATORYOrdered By: Marisabel Chase on 12-03-2023 Appearance (U) Clear (12/03/23 2:22 PM) Normal Clear AH Auto Urine SS Bilirubin Ql (U) Negative (12/03/23 2:22 PM) Normal Neg-Trace AH Auto Urine SS Color (U) Yellow (12/03/23 2:22 PM) Normal AH Auto Urine SS Glucose Test strip (U) [Mass/Vol] Negative Normal Negative AH Auto Urine SS Hemoglobin Auto test strip (U) [Mass/Vol] Negative (12/03/23 2:22 PM) Normal Neg-Trace AH Auto Urine SS Ketones Ql (U) Negative Normal Neg-Trace AH Auto Ur ine SS UA Leuk Est Trace *NA* (12/03/23 2:22 PM) Invalid Interpretation Code Negative AH Auto Urine SS UA Nitrite Negative (12/03/23 2:22 PM) Normal Negative AH Auto Urine SS UA pH 5.0 (12/03/23 2:22 PM) Normal 5.0 - 8.0 AH Auto Urine SS UA Protein Negative Normal Negative AH Auto Urine SS UA Spec Grav <=1.005 *ABN* (12/03/23 2:22 PM) Invalid Interpretation Code 1.006-1.029 AH Auto Urine SS UA Specimen Type Clean Catch (12/03/23 2:22 PM) Normal AH Auto Urine SS UA Urobilinogen 0.2 E.U./dL Normal 0.2-1.0 AH Auto Urine SS LABORATORYOrdered By: SYSTEM SYSTEM on 12-03-2023 Albumin BCP dye [Mass/Vol] 3.4 G/dL Normal 3.2 - 4.8 G/dL AH ADM SS Albumin/Globulin [Mass ratio] 1.1 {ratio} Normal 0.9 - 1.6 ratio AH ADM SS ALP [Catalytic activity/Vol] 62 U/L Normal 38 - 126 U/L AH ADM SS ALT No additional P-5'-P [Catalytic activity/Vol] 13 U/L Normal 10 - 49 U/L AH ADM SS AST [Catalytic activity/Vol] 21 U/L Normal 8 - 34 U/L AH ADM SS Basophils (Bld) [#/Vol] 0.1 103/mcL Normal 0.0 - 0.3 10^3/mcL AH Workflow SS Basophils/100 WBC (Bld) 0.4 % Normal 0.0 - 2.5 % AH Workflow SS Bilirubin [Mass/Vol] 0.60 mg/dL Normal 0.20 - 1.20 mg/dL AH ADM SS Comment on above: Interpretive Data: U se of this assay is not recommended for patients undergoing treatment with eltrombopag due to the potential for falsely elevated results. Calcium [Mass/Vol] 9.3 mg/dL Normal 8.7 - 10. 4 mg/dL ADM SS Chloride [Moles/Vol] 105 mmol/L Normal 98 - 110 mEq/L ADM SS CO2 [Moles/Vol] 30 mmol/L Normal 22 - 32 mEq/L ADM SS Creatinine [Mass/Vol] 0.52 mg/dL Normal 0.50 - 1.20 mg/dL ADM SS Electrolyte Balance 7.0 mEq/L Normal 4.0 - 15 .0 mEq/L ADM SS Eosinophils (Bld) [#/Vol] 0.2 103/mcL Normal 0.0 - 0.7 10^3/mcL Workflow SS Eosinophils/100 WBC (Bld) 1.1 % Normal 0.0 - 6.0 % Workflow SS Erythrocyte distribution width (RBC) [Ratio] 12.7 % Normal 11.5 - 15.5 % Workflow SS GFR/1.73 sq M.predicted among blacks MDRD (S/P/Bld) [Vol rate/Area] ml/min/1.73sqm Invalid Interpretation Code [facility] Chemistry S Comment on above: Interpretive Data: GFR Population mean for , Non- Americans Ages 20-29 = 116 mL/min/1.73 sq.m. Ages 30-39 = 107 mL/min/1.73 sq.m. Ages 40-49 = 99 mL/min/1.73 sq.m. Ages 50-59 = 93 mL/min/1.73 sq.m. Ages 60-69 = 85 mL/min/1.73 sq.m. Ages 70+ = 75 mL/min/1.73 sq.m. Chronic Kidney Disease: Less than 60 mL/min/1.73 square meters End Stage Renal Disease: Less than 15 mL/min/1.73 square meters GFR/1.73 sq M.predicted among non-blacks MDRD (S/P/Bld) [Vol rate/Area] ml/min/1.73sqm Invalid Interpretation Code [facility] Chemistry S Comment on above: Interpretive Data: GFR Population mean for , Non- Americans Ages 20-29 = 116 mL/min/1.73 sq.m. Ages 30-39 = 107 mL/min/1.73 sq.m. Ages 40-49 = 99 mL/min/1.73 sq.m. Ages 50-59 = 93 mL/min/1.73 sq.m. Ages 60-69 = 85 mL/min/1.73 sq.m. Ages 70+ = 75 mL/min/1.73 sq.m. Chronic Kidney Disease: Less than 60 mL/min/1.73 square meters End Stage Renal Disease: Less than 15 mL/min/1.73 square meters Globulin 3.1 G/dL Normal 1.5 - 3.8 G/dL AH ADM SS Glucose [Mass/Vol] 89 mg/dL Normal 70 - 110 mg/dL AH ADM SS Hematocrit (Bld) [Volume fraction] 37.6 % Normal 34.0 - 46.0 % AH Workflow SS Hemoglobin (Bld) [Mass/Vol] 13.0 G/dL Normal 12.0 - 16.0 G/dL AH Workflow SS Lymphocytes (Bld) [#/Vol] 2.6 103/mcL Normal 0.9 - 4.3 10^3/mcL AH Workflow SS Lymphocytes/100 WBC (Bld) 18.8 % Low 20.0 - 40.0 % AH Workflow SS MCH (RBC) [Entitic mass] 31.6 pg Normal 27.0 - 33.0 pg AH Workflow SS MCHC 34.6 G/dL Normal 32.0 - 36.0 G/dL AH Workflow SS MCV (RBC) [Entitic vol] 91.1 fL Normal 80.0 - 99.0 fL AH Workflow SS Monocytes (Bld) [#/Vol] 1.1 103/mcL Normal 0.1 - 1.4 10^3/mcL AH Workflow SS Monocytes/100 WBC (Bld) 7.5 % Normal 2.0 - 13.0 % AH Workflow SS Neutrophils (Bld) [#/Vol] 10.1 103/mcL High 2.3 - 8.1 10^3/mcL AH Workflow SS Neutrophils/100 WBC (Bld) 72.2 % Normal 50.0 - 75.0 % AH Workflow SS Platelet mean volume (Bld) [Entitic vol] 9.1 fL Normal 6.6 - 10.5 fL AH Workflow SS Platelets (Bld) [#/Vol] 218 103/mcL Normal 150 - 450 10^3/mcL AH Workflow SS Potassium [Moles/Vol] 3.8 mmol/L Normal 3.5 - 5.0 mEq/L AH ADM SS Protein [Mass/Vol] 6.5 G/dL Normal 5.7 - 8.2 G/dL AH ADM SS Comment on above: Interpretive Data: * *Note - New Reference Range in effect 20 RBC (Bld) [#/Vol] 4.12 106/mcL Normal 4.10 - 5.3 0 10^6/mcL AH Workflow SS Sodium [Moles/Vol] 142 mmol/L Normal 136 - 145 mEq/L AH ADM SS Urea nitrogen [Mass/Vol] 19.0 mg/dL Normal 8.0 - 22.0 mg/dL ADM SS Urea nitrogen/Creatinine [Mass ratio] 36.5 ratio High 10.0 - 22.0 ratio ADM SS WBC (Bld) [#/Vol] 14.0 103/mcL High 4.5 - 10.8 10^3/mcL Workflow SS LABORATORYOrdered By: Demetrius Langley on 12-03-2023 Cholesterol [Mass/Vol] 185 mg/dL Normal 50 - 199 mg/dL ADM SS Comment on above: Interpretive Data: C holesterol Reference Interval: Less than 200 Desirable 200-239 Borderline high risk 240 and above High risk Cholesterol in HDL [Mass/Vol] 33 mg/dL Low 40 - 59 mg/dL ADM SS Cholesterol in LDL [Mass/Vol] 128 mg/dL Normal 0 - 129 mg/dL ADM SS Triglyceride [Mass/Vol] 119 mg/dL Normal 3 - 149 mg/dL ADM SS LIPIDon 12-03-2023 Cholesterol [Mass/Vol] 185 mg/dL Normal 50-199 [facility] ([place]) Comment on above: Result Comment: Chol esterol Reference Interval: Less than 200 Desirable 200-239 Borderline high risk 240 and above High risk Performed By: #### B MP, ANEU, GFR, ADIFF, CBC #### [facility] [address] [place] [address] Cholesterol in HDL [Mass/Vol] 33 mg/dL Low 40-59 [facility] ([place]) Comment on above: Performed By: #### B MP, ANEU, GFR, ADIFF, CBC #### [facility] [address] [place] [address] Cholesterol in LDL [Mass/Vol] 128 mg/dL Normal 0-129 [facility] ([place]) Comment on above: Performed By: #### B MP, ANEU, GFR, ADIFF, CBC #### [address] [address] Triglyceride [Mass/Vol] 119 mg/dL Normal 3-149 [facility] ([place]) Comment on above: Performed By: #### B MP, ANEU, GFR, ADIFF, CBC #### [address] [address] MRI BRAIN W/O CONTRASTon MRI BRAIN W/O CONTRAST ORIGINAL HISTORY: Stroke COMPARISON: Head CT 2 days previously TECHNIQUE: 1. Sagittal T1-weighted images. 2. Axial T2-weighted and T2*-weighted images. 3. Axial FLAIR images. 4. Axial diffusion-weighted images with ADC map. FINDINGS: The ventricles and sulci are normal to mildly enlarged. There are no abnormal intra or extra-axial fluid collections. There are mild scattered punctate T2 hyperintensities in the cerebral white matter. There are small remote right basal ganglia lacunar infarcts. Medeiros-white matter differentiation is maintained. There is no abnormal restriction of diffusion. The orbital contents are normal in appearance. There is sinus disease. IMPRESSION: Remote right basal ganglia lacunar infarcts and mild small vessel ischemic disease. Interpreted by: Maddison Murray MD Preliminary Report By: Maddison Murray MD Electronically signed By Maddison Murray MD Dictated Date: 12/03/2023 12:04:33 PM Prelim Date: 12/03/2023 12:06:44 PM Sign Date: 12/03/2023 12:06:44 PM Ordering Provider: JOSIE ONEIL [facility] ([place]) No Panel Informationon 12-02 Culture Urine <10,000 cfu/ml. No Significant growth. Sensitivity not indicated. [facility] UAon 12-03-2023 Color (U) Yellow Normal [facility] ([place]) Comment on above: Performed By: #### U A #### [address] [address] Glucose (U) [Mass/Vol] Negative Normal Negative [facility] ([place]) Comment on above: Performed By: #### U A #### [place] [address] Ketones Ql (U) Negative Normal Neg-Trace [facility] ([place]) Comment on above: Performed By: #### U A #### [place] [address] UA Appear Clear Normal Clear [facility] ([place]) Comment on above: Performed By: #### U A #### [place] [address] UA Blood Negative Normal Neg-Trace [facility] ([place]) Comment on above: Performed By: #### U A #### [place] [address] UA Leuk Est Trace Normal Negative [facility] ([place]) Comment on above: Performed By: #### U A #### [place] [address] UA Nitrite Negative Normal Negative [facility] ([place]) Comment on above: Performed By: #### U A #### [place] [address] UA pH 5.0 Normal 5.0 - 8.0 [facility] ([place]) Comment on above: Performed By: #### U A #### [place] [address] UA Protein Negative Normal Negative [facility] ([place]) Comment on above: Performed By: #### U A #### [place] [address] UA Spec Grav <=1.005 Abnormal 1.006-1.029 [facility] ([place]) Comment on above: Performed By: #### U A #### [place] [address] UA Specimen Type Clean Catch Normal [facility] ([place]) Comment on above: Performed By: #### U A #### [place] [address] UA Urobilinogen 0.2 E.U./dL Normal 0.2-1.0 [facility] ([place]) Comment on above: Performed By: #### U A #### [address] [address] Urobilinogen (U) [Mass/Vol] Negative Normal Neg-Trace [facility] ([place]) Comment on above: Performed By: #### U A #### [address] [address] .Auto Diffon 12-02-2023 Basophil, Absolute 0.1 10 3/mcL Normal 0.0-0.3 [facility] ([place]) Comment on above: Performed By: #### B MP, ANEU, GFR, ADIFF, CBC #### [address] [address] Basophils/100 WBC (Bld) 0.6 % Normal 0.0-2.5 [facility] ([place]) Comment on above: Performed By: #### B MP, ANEU, GFR, ADIFF, CBC #### [address] [address] Eosinophil, Absolute 0.2 10 3/mcL Normal 0.0-0.7 [facility] ([place]) Comment on above: Performed By: #### B MP, ANEU, GFR, ADIFF, CBC #### [address] [address] Eosinophils/100 WBC (Bld) 1.2 % Normal 0.0-6.0 [facility] ([place]) Comment on above: Performed By: #### B MP, ANEU, GFR, ADIFF, CBC #### [address] [address] Lymphocyte, Absolute 2.9 10 3/mcL Normal 0.9-4.3 [facility] ([place]) Comment on above: Performed By: #### B MP, ANEU, GFR, ADIFF, CBC #### [address] [address] Lymphocytes/100 WBC (Bld) 18.5 % Low 20.0-40.0 [facility] ([place]) Comment on above: Performed By: #### B MP, ANEU, GFR, ADIFF, CBC #### [address] [address] Monocyte, Absolute 1.5 10 3/mcL High 0.1-1.4 [facility] ([place]) Comment on above: Performed By: #### B MP, ANEU, GFR, ADIFF, CBC #### [address] [address] Monocytes/100 WBC (Bld) 9.5 % Normal 2.0-13.0 [facility] ([place]) Comment on above: Performed By: #### B MP, ANEU, GFR, ADIFF, CBC #### [address] [address] Neutrophils/100 WBC (Bld) 70.2 % Normal 50.0-75.0 [facility] ([place]) Comment on above: Performed By: #### B MP, ANEU, GFR, ADIFF, CBC #### [address] [address] .GFRon 12-02-2023 GFR >60 Normal [facility] ([place]) Comment on above: Result Comment: GFR Population mean for , Non- Americans Ages 20-29 = 116 mL/min/1.73 sq.m. Ages 30-39 = 107 mL/min/1.73 sq.m. Ages 40-49 = 99 mL/min/1.73 sq.m. Ages 50-59 = 93 mL/min/1.73 sq.m. Ages 60-69 = 85 mL/min/1.73 sq.m. Ages 70+ = 75 mL/min/1.73 sq.m. Chronic Kidney Disease: Less than 60 mL/min/1.73 square meters End Stage Renal Disease: Less than 15 mL/min/1.73 square meters Performed By: #### B MP, ANEU, GFR, ADIFF, CBC #### [address] [address] GFR Non- >60 Normal [facility] ([place]) Comment on above: Result Comment: GFR Population mean for , Non- Americans Ages 20-29 = 116 mL/min/1.73 sq.m. Ages 30-39 = 107 mL/min/1.73 sq.m. Ages 40-49 = 99 mL/min/1.73 sq.m. Ages 50-59 = 93 mL/min/1.73 sq.m. Ages 60-69 = 85 mL/min/1.73 sq.m. Ages 70+ = 75 mL/min/1.73 sq.m. Chronic Kidney Disease: Less than 60 mL/min/1.73 square meters End Stage Renal Disease: Less than 15 mL/min/1.73 square meters Performed By: #### B MP, ANEU, GFR, ADIFF, CBC #### [address] [address] .MDWon 12-02-2023 Monocyte Distribution Width 17.86 Normal 0.00-20.00 [facility] ([place]) Comment on above: Result Comment: For ED adult patients suspected of sepsis, MDW<=20.0 does not rule out sepsis or risk of sepsis Performed By: #### B MP, ANEU, GFR, ADIFF, CBC #### [place] [address] .NEUABSon 12-02-2023 Neutrophil, Absolute 10.8 10 3/mcL High 2.3-8.1 A [facility] ([place]) Comment on above: Performed By: #### B MP, ANEU, GFR, ADIFF, CBC #### [address] [address] BMPon 12-02-2023 BUN/Creatinine Ratio 27.3 ratio High 10.0-22.0 [facility] ([place]) Comment on above: Performed By: #### B MP, ANEU, GFR, ADIFF, CBC #### [address] [address] Calcium [Mass/Vol] 9.6 mg/dL Normal 8.7-10.4 [facility] ([place]) Comment on above: Performed By: #### B MP, ANEU, GFR, ADIFF, CBC #### [address] [address] Chloride [Moles/Vol] 104 mmol/L Normal 98-110 [facility] ([place]) Comment on above: Performed By: #### B MP, ANEU, GFR, ADIFF, CBC #### [address] [address] CO2 [Moles/Vol] 31 mmol/L Normal 22-32 [facility] ([place]) Comment on above: Performed By: #### B MP, ANEU, GFR, ADIFF, CBC #### [place] [address] Creatinine [Mass/Vol] 0.66 mg/dL Normal 0.50-1.20 [facility] ([place]) Comment on above: Performed By: #### B MP, ANEU, GFR, ADIFF, CBC #### [place] [address] Electrolyte Balance 4.0 mEq/L Normal 4.0-15.0 [facility] ([place]) Comment on above: Performed By: #### B MP, ANEU, GFR, ADIFF, CBC #### [place] [address] Glucose [Mass/Vol] 95 mg/dL Normal 70-110 [facility] ([place]) Comment on above: Performed By: #### B MP, ANEU, GFR, ADIFF, CBC #### [place] [address] Potassium [Moles/Vol] 3.7 mmol/L Normal 3.5-5.0 [facility] ([place]) Comment on above: Performed By: #### B MP, ANEU, GFR, ADIFF, CBC #### [place] [id number] Sodium [Moles/Vol] 139 mmol/L Normal 136-145 [facility] ([place]) Comment on above: Performed By: #### B MP, ANEU, GFR, ADIFF, CBC #### [place] [address] Urea nitrogen [Mass/Vol] 18.0 mg/dL Normal 8.0-22.0 [facility] ([place]) Comment on above: Performed By: #### B MP, ANEU, GFR, ADIFF, CBC #### [place] [id number] CBCon 05--2024 Erythrocyte distribution width (RBC) [Ratio] 12.7 % Normal 11.5-15.5 [facility] ([place]) Comment on above: Performed By: #### B MP, ANEU, GFR, ADIFF, CBC #### [place] [address] Hematocrit (Bld) [Volume fraction] 38.8 % Normal 34.0-46.0 [facility] ([place]) Comment on above: Performed By: #### B MP, ANEU, GFR, ADIFF, CBC #### [place] [address] Hgb 13.3 G/dL Normal 12.0-16.0 [facility] ([place]) Comment on above: Performed By: #### B MP, ANEU, GFR, ADIFF, CBC #### [place] [address] MCH (RBC) [Entitic mass] 30.9 pg Normal 27.0-33.0 [facility] ([place]) Comment on above: Performed By: #### B MP, ANEU, GFR, ADIFF, CBC #### [place] [address] MCHC 34.2 G/dL Normal 32.0-36.0 [facility] ([place]) Comment on above: Performed By: #### B MP, ANEU, GFR, ADIFF, CBC #### [place] [address] MCV (RBC) [Entitic vol] 90.3 fL Normal 80.0-99.0 [facility] ([place]) Comment on above: Performed By: #### B MP, ANEU, GFR, ADIFF, CBC #### [place] [address] Platelet 239 10 3/mcL Normal 150-450 [facility] ([place]) Comment on above: Performed By: #### B MP, ANEU, GFR, ADIFF, CBC #### [place] [address] Platelet mean volume (Bld) [Entitic vol] 9.0 fL Normal 6.6-10.5 [facility] ([place]) Comment on above: Performed By: #### B MP, ANEU, GFR, ADIFF, CBC #### [place] [address] RBC 4.30 10 6/mcL Normal 4.10-5.30 [facility] ([place]) Comment on above: Performed By: #### B MP, ANEU, GFR, ADIFF, CBC #### [place] [address] WBC 15.4 10 3/mcL High 4.5-10.8 [facility] ([place]) Comment on above: Performed By: #### B MP, ANEU, GFR, ADIFF, CBC #### [place] [address] CK-Dominik 12-02-2023 Relative Index Not Valid Normal 0.0-4.5 [facility] ([place]) Comment on above: Result Comment: CPK <185 invalidates relative index Performed By: #### B MP, ANEU, GFR, ADIFF, CBC #### [place] [address] CK [Catalytic activity/Vol] 130 U/L Normal 7-185 [facility] ([place]) Comment on above: Performed By: #### B MP, ANEU, GFR, ADIFF, CBC #### [place] [address] CKMBMon 12-02-2023 CK.MB [Mass/Vol] 1.70 ng/mL Normal 0.00-5.00 [facility] ([place]) Comment on above: Result Comment: No te - New Reference Range in effect 20 Performed By: #### B MP, ANEU, GFR, ADIFF, CBC #### [place] [address] LABORATORYOrdered By: SYSTEM SYSTEM on 12-02-2023 CK [Catalytic activity/Vol] 130 U/L Normal 7 - 185 U/L AH ADM SS HbA1c (Bld) [Mass fraction] 5.0 % Normal 4.0 - 6.0 % AH Auto Chem SS Magnesium [Mass/Vol] 1.9 mg/dL Normal 1.6 - 2 .4 mg/dL AH ADM SS Phosphate [Mass/Vol] 4.1 mg/dL Normal 2.4 - 5 .1 mg/dL AH ADM SS Comment on above: Interpretive Data: * *Note - New Reference Range in effect 20 Troponin I.cardiac DL <= 0.01 ng/mL [Mass/Vol] 4 ng/L Normal 0 - 34 ng/L AH ADM SS Comment on above: Interpretive Data: High Sensitive Troponin I Reference Ranges: Female: 0-34 ng/L Male: 0-54 ng/L Testing performed on Slingbox analyzer using direct chemiluminescent technology. Valproate [Mass/Vol] 70.1 ug/mL Normal 50.0 - 130.0 mcg/mL ADM SS Basophils (Bld) [#/Vol] 0.1 103/mcL Normal 0.0 - 0.3 10^3/mcL AH Workflow SS Basophils/100 WBC (Bld) 0.6 % Normal 0.0 - 2.5 % Workflow SS Calcium [Mass/Vol] 9.6 mg/dL Normal 8.7 - 10. 4 mg/dL ADM SS Chloride [Moles/Vol] 104 mmol/L Normal 98 - 110 mEq/L ADM SS CO2 [Moles/Vol] 31 mmol/L Normal 22 - 32 mEq/L ADM SS Creatinine [Mass/Vol] 0.66 mg/dL Normal 0.50 - 1.20 mg/dL ADM SS Electrolyte Balance 4.0 mEq/L Normal 4.0 - 15 .0 mEq/L ADM SS Eosinophils (Bld) [#/Vol] 0.2 103/mcL Normal 0.0 - 0.7 10^3/mcL Workflow SS Eosinophils/100 WBC (Bld) 1.2 % Normal 0.0 - 6.0 % AH Workflow SS Erythrocyte distribution width (RBC) [Ratio] 12.7 % Normal 11.5 - 15.5 % AH Workflow SS GFR/1.73 sq M.predicted among blacks MDRD (S/P/Bld) [Vol rate/Area] ml/min/1.73sqm Invalid Interpretation Code ADM SS Comment on above: Interpretive Data: GFR Population mean for , Non- Americans Ages 20-29 = 116 mL/min/1.73 sq.m. Ages 30-39 = 107 mL/min/1.73 sq.m. Ages 40-49 = 99 mL/min/1.73 sq.m. Ages 50-59 = 93 mL/min/1.73 sq.m. Ages 60-69 = 85 mL/min/1.73 sq.m. Ages 70+ = 75 mL/min/1.73 sq.m. Chronic Kidney Disease: Less than 60 mL/min/1.73 square meters End Stage Renal Disease: Less than 15 mL/min/1.73 square meters GFR/1.73 sq M.predicted among non-blacks MDRD (S/P/Bld) [Vol rate/Area] ml/min/1.73sqm Invalid Interpretation Code ADM SS Comment on above: Interpretive Data: GFR Population mean for , Non- Americans Ages 20-29 = 116 mL/min/1.73 sq.m. Ages 30-39 = 107 mL/min/1.73 sq.m. Ages 40-49 = 99 mL/min/1.73 sq.m. Ages 50-59 = 93 mL/min/1.73 sq.m. Ages 60-69 = 85 mL/min/1.73 sq.m. Ages 70+ = 75 mL/min/1.73 sq.m. Chronic Kidney Disease: Less than 60 mL/min/1.73 square meters End Stage Renal Disease: Less than 15 mL/min/1.73 square meters Glucose [Mass/Vol] 95 mg/dL Normal 70 - 110 mg/dL ADM SS Hematocrit (Bld) [Volume fraction] 38.8 % Normal 34.0 - 46.0 % AH Workflow SS Hemoglobin (Bld) [Mass/Vol] 13.3 G/dL Normal 12.0 - 16.0 G/dL AH Workflow SS Lymphocytes (Bld) [#/Vol] 2.9 103/mcL Normal 0.9 - 4.3 10^3/mcL AH Workflow SS Lymphocytes/100 WBC (Bld) 18.5 % Low 20.0 - 40.0 % AH Workflow SS MCH (RBC) [Entitic mass] 30.9 pg Normal 27.0 - 33.0 pg AH Workflow SS MCHC 34.2 G/dL Normal 32.0 - 36.0 G/dL AH Workflow SS MCV (RBC) [Entitic vol] 90.3 fL Normal 80.0 - 99.0 fL AH Workflow SS Monocyte distribution width Auto (Bld) [Entitic vol] 17.86 1 Normal 0.00 - 20.00 AH Workflow SS Comment on above: Result Comment: For ED adult patients suspected of sepsis, MDW<=20.0 does not rule out sepsis or risk of sepsis Monocytes (Bld) [#/Vol] 1.5 103/mcL High 0.1 - 1.4 10^3/mcL AH Workflow SS Monocytes/100 WBC (Bld) 9.5 % Normal 2.0 - 13.0 % AH Workflow SS Neutrophils (Bld) [#/Vol] 10.8 103/mcL High 2.3 - 8.1 10^3/mcL AH Workflow SS Neutrophils/100 WBC (Bld) 70.2 % Normal 50.0 - 75.0 % AH Workflow SS Platelet mean volume (Bld) [Entitic vol] 9.0 fL Normal 6.6 - 10.5 fL AH Workflow SS Platelets (Bld) [#/Vol] 239 103/mcL Normal 150 - 450 10^3/mcL AH Workflow SS Potassium [Moles/Vol] 3.7 mmol/L Normal 3.5 - 5.0 mEq/L AH ADM SS RBC (Bld) [#/Vol] 4.30 106/mcL Normal 4.10 - 5.3 0 10^6/mcL AH Workflow SS Sodium [Moles/Vol] 139 mmol/L Normal 136 - 145 mEq/L AH ADM SS Urea nitrogen [Mass/Vol] 18.0 mg/dL Normal 8.0 - 22.0 mg/dL ADM SS Urea nitrogen/Creatinine [Mass ratio] 27.3 ratio High 10.0 - 22.0 ratio AH ADM SS WBC (Bld) [#/Vol] 15.4 103/mcL High 4.5 - 10.8 10^3/mcL Workflow SS LABORATORYOrdered By: Krysten Hinojosa on 12-02-2023 CK.MB [Mass/Vol] 1.70 ng/mL Normal 0.00 - 5.00 ng/mL ADM SS Comment on above: Interpretive Data: * *Note - New Reference Range in effect 20 Free T4 index Calc [Mass/Vol] Not Valid Invalid Interpretation Code 0.0 - 4.5 Chemistry S Comment on above: Result Comment: CPK <185 invalidates relative index LABORATORYOrdered By: Юлия Chan on 12-02-2023 LDose Valproic Acid: See eMAR (12/02/23 10:29 PM) Normal Chemistry S MGon 12-02-2023 Magnesium [Mass/Vol] 1.9 mg/dL Normal 1.6-2.4 [facility] ([place]) Comment on above: Performed By: #### B MP, ANEU, GFR, ADIFF, CBC #### [place] [address] No Panel Informationon 12-01 Microscopic examination of blood, culture Culture has been received in lab and is no growth to date. Routine cultures are held for 5 days. [facility] PHOSon 12-02-2023 Phosphate [Mass/Vol] 4.1 mg/dL Normal 2.4-5.1 [facility] ([place]) Comment on above: Result Comment: No te - New Reference Range in effect 20 Performed By: #### B MP, ANEU, GFR, ADIFF, CBC #### [place] [address] TROPHSon 12-02-2023 High Sensitivity Troponin I 4 ng/L Normal 0-34 [facility] ([place]) Comment on above: Result Comment: High Sensitive Troponin I Reference Ranges: Female: 0-34 ng/L Male: 0-54 ng/L Testing performed on Slingbox analyzer using direct chemiluminescent technology. Performed By: #### B MP, ANEU, GFR, ADIFF, CBC #### [place] [address] VALPRon 12-02-2023 LDose Valproic Acid: See eMAR Normal [facility] ([place]) Comment on above: Performed By: #### B MP, ANEU, GFR, ADIFF, CBC #### [place] [address] Valproic Acid Lvl 70.1 mcg/mL Normal 50.0-130.0 [facility] ([place]) Comment on above: Performed By: #### B MP, ANEU, GFR, ADIFF, CBC #### [address] [address] .Auto Diffon 12-01-2023 Basophil, Absolute 0.1 10 3/mcL Normal 0.0-0.3 [facility] ([place]) Comment on above: Performed By: #### B MP, ANEU, GFR, ADIFF, CBC #### [address] [address] Basophils/100 WBC (Bld) 0.7 % Normal 0.0-2.5 [facility] ([place]) Comment on above: Performed By: #### B MP, ANEU, GFR, ADIFF, CBC #### [address] [address] Eosinophil, Absolute 0.2 10 3/mcL Normal 0.0-0.7 [facility] ([place]) Comment on above: Performed By: #### B MP, ANEU, GFR, ADIFF, CBC #### [address] [address] Eosinophils/100 WBC (Bld) 1.3 % Normal 0.0-6.0 [facility] ([place]) Comment on above: Performed By: #### B MP, ANEU, GFR, ADIFF, CBC #### [address] [address] Lymphocyte, Absolute 4.7 10 3/mcL High 0.9-4.3 [facility] ([place]) Comment on above: Performed By: #### B MP, ANEU, GFR, ADIFF, CBC #### [address] [address] Lymphocytes/100 WBC (Bld) 34.1 % Normal 20.0-40.0 [facility] ([place]) Comment on above: Performed By: #### B MP, ANEU, GFR, ADIFF, CBC #### [address] [address] Monocyte, Absolute 1.1 10 3/mcL Normal 0.1-1.4 [facility] ([place]) Comment on above: Performed By: #### B MP, ANEU, GFR, ADIFF, CBC #### [address] [address] Monocytes/100 WBC (Bld) 8.0 % Normal 2.0-13.0 [facility] ([place]) Comment on above: Performed By: #### B MP, ANEU, GFR, ADIFF, CBC #### [address] [address] Neutrophils/100 WBC (Bld) 55.9 % Normal 50.0-75.0 [facility] ([place]) Comment on above: Performed By: #### B MP, ANEU, GFR, ADIFF, CBC #### [address] [address] .GFRon 12-01-2023 GFR >60 Normal [facility] ([place]) Comment on above: Result Comment: GFR Population mean for , Non- Americans Ages 20-29 = 116 mL/min/1.73 sq.m. Ages 30-39 = 107 mL/min/1.73 sq.m. Ages 40-49 = 99 mL/min/1.73 sq.m. Ages 50-59 = 93 mL/min/1.73 sq.m. Ages 60-69 = 85 mL/min/1.73 sq.m. Ages 70+ = 75 mL/min/1.73 sq.m. Chronic Kidney Disease: Less than 60 mL/min/1.73 square meters End Stage Renal Disease: Less than 15 mL/min/1.73 square meters Performed By: #### B MP, ANEU, GFR, ADIFF, CBC #### [address] [address] GFR Non- >60 Normal [facility] ([place]) Comment on above: Result Comment: GFR Population mean for , Non- Americans Ages 20-29 = 116 mL/min/1.73 sq.m. Ages 30-39 = 107 mL/min/1.73 sq.m. Ages 40-49 = 99 mL/min/1.73 sq.m. Ages 50-59 = 93 mL/min/1.73 sq.m. Ages 60-69 = 85 mL/min/1.73 sq.m. Ages 70+ = 75 mL/min/1.73 sq.m. Chronic Kidney Disease: Less than 60 mL/min/1.73 square meters End Stage Renal Disease: Less than 15 mL/min/1.73 square meters Performed By: #### B MP, ANEU, GFR, ADIFF, CBC #### [place] [id number] .MDWon 12-01-2023 Monocyte Distribution Width 17.84 Normal 0.00-20.00 [facility] ([place]) Comment on above: Result Comment: For ED adult patients suspected of sepsis, MDW<=20.0 does not rule out sepsis or risk of sepsis Performed By: #### B MP, ANEU, GFR, ADIFF, CBC #### [place] [address] .NEUABSon 12-01-2023 Neutrophil, Absolute 7.7 10 3/mcL Normal 2.3-8.1 [facility]ly [facility] ([place]) Comment on above: Performed By: #### B MP, ANEU, GFR, ADIFF, CBC #### [place] [address] APTTon 12-01-2023 aPTT Coag (Bld) [Time] 29.7 s Normal 25.0-35.0 [facility] ([place]) Comment on above: Result Comment: For Heparin anticoagulation therapy, the recommended therapeutic range is: 54-77 seconds (APTT Correlation with Anti-Xa therapeutic range of 0.3-0.7 units/ml). PLEASE REFERENCE THE PHARMACY PROTOCOL FOR DOSING. Performed By: #### B MP, ANEU, GFR, ADIFF, CBC #### [place] [address] Heparin dose (APTT) None Normal [facility] ([place]) Comment on above: Performed By: #### B MP, ANEU, GFR, ADIFF, CBC #### [place] [address] BMPon 12-01-2023 BUN/Creatinine Ratio 25.0 ratio High 10.0-22.0 [facility] ([place]) Comment on above: Performed By: #### B MP, ANEU, GFR, ADIFF, CBC #### [place] [address] Calcium [Mass/Vol] 9.7 mg/dL Normal 8.7-10.4 [facility] ([place]) Comment on above: Performed By: #### B MP, ANEU, GFR, ADIFF, CBC #### [address] [address] Chloride [Moles/Vol] 105 mmol/L Normal 98-110 [facility] ([place]) Comment on above: Performed By: #### B MP, ANEU, GFR, ADIFF, CBC #### [address] [address] CO2 [Moles/Vol] 29 mmol/L Normal 22-32 [facility] ([place]) Comment on above: Performed By: #### B MP, ANEU, GFR, ADIFF, CBC #### [address] [address] Creatinine [Mass/Vol] 0.68 mg/dL Normal 0.50-1.20 [facility] ([place]) Comment on above: Performed By: #### B MP, ANEU, GFR, ADIFF, CBC #### [address] [address] Electrolyte Balance 10.0 mEq/L Normal 4.0-15.0 [facility] ([place]) Comment on above: Performed By: #### B MP, ANEU, GFR, ADIFF, CBC #### [address] [address] Glucose [Mass/Vol] 104 mg/dL Normal 70-110 [facility] ([place]) Comment on above: Performed By: #### B MP, ANEU, GFR, ADIFF, CBC #### [address] [address] Potassium [Moles/Vol] 3.6 mmol/L Normal 3.5-5.0 [facility] ([place]) Comment on above: Performed By: #### B MP, ANEU, GFR, ADIFF, CBC #### [address] [address] Sodium [Moles/Vol] 144 mmol/L Normal 136-145 [facility] ([place]) Comment on above: Performed By: #### B MP, ANEU, GFR, ADIFF, CBC #### [place] [address] Urea nitrogen [Mass/Vol] 17.0 mg/dL Normal 8.0-22.0 [facility] ([place]) Comment on above: Performed By: #### B MP, ANEU, GFR, ADIFF, CBC #### [place] [address] CBCon 12-01-2023 Erythrocyte distribution width (RBC) [Ratio] 12.6 % Normal 11.5-15.5 [facility] ([place]) Comment on above: Performed By: #### B MP, ANEU, GFR, ADIFF, CBC #### [place] [address] Hematocrit (Bld) [Volume fraction] 40.6 % Normal 34.0-46.0 [facility] ([place]) Comment on above: Performed By: #### B MP, ANEU, GFR, ADIFF, CBC #### [place] [address] Hgb 14.0 G/dL Normal 12.0-16.0 [facility] ([place]) Comment on above: Performed By: #### B MP, ANEU, GFR, ADIFF, CBC #### [place] [address] MCH (RBC) [Entitic mass] 31.2 pg Normal 27.0-33.0 [facility] ([place]) Comment on above: Performed By: #### B MP, ANEU, GFR, ADIFF, CBC #### [place] [address] MCHC 34.4 G/dL Normal 32.0-36.0 [facility] ([place]) Comment on above: Performed By: #### B MP, ANEU, GFR, ADIFF, CBC #### [place] [address] MCV (RBC) [Entitic vol] 90.8 fL Normal 80.0-99.0 [facility] ([place]) Comment on above: Performed By: #### B MP, ANEU, GFR, ADIFF, CBC #### [place] [id number] [address] [place] [address] Platelet 251 10 3/mcL Normal 150-450 [facility] ([place]) Comment on above: Performed By: #### B MP, ANEU, GFR, ADIFF, CBC #### [facility] [address] [place] [address] Platelet mean volume (Bld) [Entitic vol] 9.3 fL Normal 6.6-10.5 [facility] ([place]) Comment on above: Performed By: #### B MP, ANEU, GFR, ADIFF, CBC #### [address] [address] RBC 4.47 10 6/mcL Normal 4.10-5.30 [facility] ([place]) Comment on above: Performed By: #### B MP, ANEU, GFR, ADIFF, CBC #### [address] [address] WBC 13.8 10 3/mcL High 4.5-10.8 [facility] ([place]) Comment on above: Performed By: #### B MP, ANEU, GFR, ADIFF, CBC #### [address] [address] [address] ANGIOGRAPHY HEAD W/ CONTR Jared 12-01-2023 CT ANGIOGRAPHY HEAD W/ CONTRAST ORIGINAL HISTORY: Headache, seizure COMPARISON: No TECHNIQUE: CT angiography of the head following uncomplicated administration of intravenous contrast, with 3D post-acquisition processing and with results displayed in source images, sagittal reconstructions through the carotid siphons, maximum intensity projections and volume rendered images. This exam was performed according to our departmental dose optimization program, and includes the following measures where applicable: automated exposure control, adjustment of the mAs and/or kVp according to patient size and/or exam, and an iterative reconstruction algorithm. FINDINGS: The internal carotid arteries and their major branches are patent without occlusion, significant stenosis or aneurysm. Major vessels of the posterior circulation are unremarkable in appearance. IMPRESSION: No large vessel occlusion. Interpreted by: Maddison Murray MD Preliminary Report By: Maddison Murray MD Electronically signed By Maddison Murray MD Dictated Date: 12/01/2023 3:56:15 PM Prelim Date: 12/01/2023 3:57:41 PM Sign Date: 12/01/2023 3:57:41 PM Ordering Provider: [facility]) CT ANGIOGRAPHY NECK W/KRYSTALA Harsha 12-01-2023 CT ANGIOGRAPHY NECK W/CONTRAST ORIGINAL HISTORY: Facial droop COMPARISON: No TECHNIQUE: CT angiogram of the neck following uncomplicated administration of intravenous contrast, with 3-D post acquisition processing and with results displayed in source images, rotational reconstructions centered on the carotid bifurcations and in maximum intensity projection. Percent stenosis is calculated using NASCET criteria. This exam was performed according to our departmental dose optimization program, and includes the following measures where applicable: automated exposure control, adjustment of the mAs and/or kVp according to patient size and/or exam, and an iterative reconstruction algorithm. FINDINGS: There are mild atherosclerotic changes to the right distal common and proximal internal carotid artery, mainly noncalcified plaque. There is no hemodynamically significant stenosis of the right internal carotid artery. The left common carotid artery in its major branches are patent without occlusion or significant stenosis. The right vertebral arteries patent. Both vertebral arteries are visualized from origin through skull base. IMPRESSION: No hemodynamically significant stenosis of either internal carotid artery. Interpreted by: Maddison Murray MD Preliminary Report By: Maddison Murray MD Electronically signed By Maddison Murray MD Dictated Date: 12/01/2023 3:44:52 PM Prelim Date: 12/01/2023 3:53:24 PM Sign Date: 12/01/2023 3:53:24 PM Ordering Provider: [facility]) CT HEAD OR BRAIN W/O DEN Breaux 12-01-2023 CT HEAD OR BRAIN W/O CONTRAST ORIGINAL EXAMINATION: CT OF THE HEAD WITHOUT CONTRAST 12/01/2023 2:50 pm TECHNIQUE: CT of the head was performed without the administration of intravenous contrast. Automated exposure control, iterative reconstruction, and/or weight based adjustment of the mA/kV was utilized to reduce the radiation dose to as low as reasonably achievable. COMPARISON: 10/24/2006 HISTORY: ORDERING SYSTEM PROVIDED HISTORY: Reason for Exam: Seizures, waxing/waning facial droop FINDINGS: BRAIN/VENTRICLES: There is no acute intracranial hemorrhage, mass effect or midline shift. No abnormal extra-axial fluid collection. There is a new compared to the prior study but chronic 1.2 cm right basal ganglion lacunar infarct. The medeiros-white differentiation is maintained without evidence of an acute infarct. There is no evidence of hydrocephalus. ORBITS: The visualized portion of the orbits demonstrate no acute abnormality. SINUSES: The visualized paranasal sinuses and mastoid air cells demonstrate no acute abnormality. SOFT TISSUES/SKULL: No acute abnormality of the visualized skull or soft tissues. IMPRESSION: No acute intracranial abnormality. 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 Interpreted by: Neil Cisneros MD Preliminary Report By: Neil Cisneros MD Electronically signed By Neil Cisneros MD Dictated Date: 12/01/2023 2:57:43 PM Prelim Date: 12/01/2023 2:59:03 PM Sign Date: 12/01/2023 2:59:03 PM Ordering Provider: LAVERN SHIRLEY Normal [facility] DRUGSon 12-01-2023 Acetaminophen [Mass/Vol] ug/mL Low 10.0-20.0 [facility]) Comment on above: Performed By: #### B MP, ANEU, GFR, ADIFF, CBC #### [place] [address] Ethanol Level <10.0 Normal [facility]) Comment on above: Performed By: #### B MP, ANEU, GFR, ADIFF, CBC #### [place] [address] Salicylate Lvl (ds) <3.0 Low 10.0-25.0 [facility]) Comment on above: Performed By: #### B MP, ANEU, GFR, ADIFF, CBC #### [place] [address] Serum Drugs screened: See Below Normal [facility]) Comment on above: Result Comment: This drug screen is a presumptive screening only. No confirmation will be performed unless requested. Drugs included in the ER serum drug screen are: Threshold Ethanol 10.0 mg/dL Salicylate 2.0 mg/dl Acetaminophen 2.0 mcg/mL Testing has been performed FOR MEDICAL PURPOSES ONLY. Performed By: #### B MP, ANEU, GFR, ADIFF, CBC #### [place] [address] LABORATORYOrdered By: Kieran Sprague on 12-01-2023 Acetaminophen [Mass/Vol] mcg/mL Low 10.0 - 20.0 mcg/mL ADM SS Ethanol [Mass/Vol] mg/dL Invalid Interpretation Code ADM SS Salicylates [Mass/Vol] mg/dL Low 10.0 - 25.0 mg/dL ADM SS Serum Drugs screened: See Below 6 (12/01/23 12:54 PM) Normal Chemistry S Comment on above: Interpretive Data: T his drug screen is a presumptive screening only. No confirmation will be performed unless requested. Drugs included in the ER serum drug screen are: Threshold Ethanol 10.0 mg/dL Salicylate 2.0 mg/dl Acetaminophen 2.0 mcg/mL Testing has been performed FOR MEDICAL PURPOSES ONLY. LABORATORYOrdered By: John Kevin on 12-01-2023 aPTT Coag (Bld) [Time] 29.7 s Normal 25.0 - 35.0 seconds [facility] Comment on above: Interpretive Data: F or Heparin anticoagulation therapy, the recommended therapeutic range is: 54-77 seconds (APTT Correlation with Anti-Xa therapeutic range of 0.3-0.7 units/ml). PLEASE REFERENCE THE PHARMACY PROTOCOL FOR DOSING. Heparin dose (APTT) None Normal Coagulation S PT Coag (PPP) [Time] 12.0 s Normal 9.0 - 1 4.4 seconds [facility] Comment on above: Interpretive Data: E ffective 01/26/08, Protime results may be affected by some antibiotics (i.e. Ciprofloxacin, Azithromycin, Bactrim) which may potentiate the action of oral anticoagulants, with further increases in Protime/INR. PT International Ratio 1.0 ratio Invalid Interpretation Code [facility] Comment on above: Interpretive Data: T sravani [employer] (CHEST, 1991, 102:312S-25S) recommended therapeutic range for oral anticoagulant therapy is: LOW RISK: Prophylaxis of venous thrombosis INR: 2.0-3.0 Treatment of pulmonary embolism 2.0-3.0 Prevention of systemic embolism 2.0-3.0 HIGH RISK: Mechanical prosthetic valves 2.5-3.5 LABORATORYOrdered By: SYSTEM SYSTEM on 12-01-2023 Basophils (Bld) [#/Vol] 0.1 103/mcL Normal 0.0 - 0.3 10^3/mcL AH Workflow SS Basophils/100 WBC (Bld) 0.7 % Normal 0.0 - 2.5 % AH Workflow SS Calcium [Mass/Vol] 9.7 mg/dL Normal 8.7 - 10. 4 mg/dL AH ADM SS Chloride [Moles/Vol] 105 mmol/L Normal 98 - 110 mEq/L ADM SS CO2 [Moles/Vol] 29 mmol/L Normal 22 - 32 mEq/L ADM SS Creatinine [Mass/Vol] 0.68 mg/dL Normal 0.50 - 1.20 mg/dL ADM SS Electrolyte Balance 10.0 mEq/L Normal 4.0 - 15 .0 mEq/L ADM SS Eosinophils (Bld) [#/Vol] 0.2 103/mcL Normal 0.0 - 0.7 10^3/mcL AH Workflow SS Eosinophils/100 WBC (Bld) 1.3 % Normal 0.0 - 6.0 % Workflow SS Erythrocyte distribution width (RBC) [Ratio] 12.6 % Normal 11.5 - 15.5 % Workflow SS GFR/1.73 sq M.predicted among blacks MDRD (S/P/Bld) [Vol rate/Area] ml/min/1.73sqm Invalid Interpretation Code ADM SS Comment on above: Interpretive Data: GFR Population mean for , Non- Americans Ages 20-29 = 116 mL/min/1.73 sq.m. Ages 30-39 = 107 mL/min/1.73 sq.m. Ages 40-49 = 99 mL/min/1.73 sq.m. Ages 50-59 = 93 mL/min/1.73 sq.m. Ages 60-69 = 85 mL/min/1.73 sq.m. Ages 70+ = 75 mL/min/1.73 sq.m. Chronic Kidney Disease: Less than 60 mL/min/1.73 square meters End Stage Renal Disease: Less than 15 mL/min/1.73 square meters GFR/1.73 sq M.predicted among non-blacks MDRD (S/P/Bld) [Vol rate/Area] ml/min/1.73sqm Invalid Interpretation Code ADM SS Comment on above: Interpretive Data: GFR Population mean for , Non- Americans Ages 20-29 = 116 mL/min/1.73 sq.m. Ages 30-39 = 107 mL/min/1.73 sq.m. Ages 40-49 = 99 mL/min/1.73 sq.m. Ages 50-59 = 93 mL/min/1.73 sq.m. Ages 60-69 = 85 mL/min/1.73 sq.m. Ages 70+ = 75 mL/min/1.73 sq.m. Chronic Kidney Disease: Less than 60 mL/min/1.73 square meters End Stage Renal Disease: Less than 15 mL/min/1.73 square meters Glucose [Mass/Vol] 104 mg/dL Normal 70 - 110 mg/dL AH ADM SS Hematocrit (Bld) [Volume fraction] 40.6 % Normal 34.0 - 46.0 % AH Workflow SS Hemoglobin (Bld) [Mass/Vol] 14.0 G/dL Normal 12.0 - 16.0 G/dL AH Workflow SS Lymphocytes (Bld) [#/Vol] 4.7 103/mcL High 0.9 - 4.3 10^3/mcL AH Workflow SS Lymphocytes/100 WBC (Bld) 34.1 % Normal 20.0 - 40.0 % AH Workflow SS MCH (RBC) [Entitic mass] 31.2 pg Normal 27.0 - 33.0 pg AH Workflow SS MCHC 34.4 G/dL Normal 32.0 - 36.0 G/dL AH Workflow SS MCV (RBC) [Entitic vol] 90.8 fL Normal 80.0 - 99.0 fL AH Workflow SS Monocyte distribution width Auto (Bld) [Entitic vol] 17.84 1 Normal 0.00 - 20.00 AH Workflow SS Comment on above: Result Comment: For ED adult patients suspected of sepsis, MDW<=20.0 does not rule out sepsis or risk of sepsis Monocytes (Bld) [#/Vol] 1.1 103/mcL Normal 0.1 - 1.4 10^3/mcL AH Workflow SS Monocytes/100 WBC (Bld) 8.0 % Normal 2.0 - 13.0 % AH Workflow SS Neutrophils (Bld) [#/Vol] 7.7 103/mcL Normal 2.3 - 8.1 10^3/mcL AH Workflow SS Neutrophils/100 WBC (Bld) 55.9 % Normal 50.0 - 75.0 % AH Workflow SS Platelet mean volume (Bld) [Entitic vol] 9.3 fL Normal 6.6 - 10.5 fL Workflow SS Platelets (Bld) [#/Vol] 251 103/mcL Normal 150 - 450 10^3/mcL AH Workflow SS Potassium [Moles/Vol] 3.6 mmol/L Normal 3.5 - 5.0 mEq/L ADM SS RBC (Bld) [#/Vol] 4.47 106/mcL Normal 4.10 - 5.3 0 10^6/mcL AH Workflow SS Sodium [Moles/Vol] 144 mmol/L Normal 136 - 145 mEq/L ADM SS Troponin I.cardiac DL <= 0.01 ng/mL [Mass/Vol] 7 ng/L Normal 0 - 34 ng/L ADM SS Comment on above: Interpretive Data: High Sensitive Troponin I Reference Ranges: Female: 0-34 ng/L Male: 0-54 ng/L Testing performed on [employer] IM analyzer using direct chemiluminescent technology. Urea nitrogen [Mass/Vol] 17.0 mg/dL Normal 8.0 - 22.0 mg/dL ADM SS Urea nitrogen/Creatinine [Mass ratio] 25.0 ratio High 10.0 - 22.0 ratio ADM SS WBC (Bld) [#/Vol] 13.8 103/mcL High 4.5 - 10.8 10^3/mcL Workflow SS PROon 12-01-2023 INR Coag (PPP) [Relative time] 1.0 {INR} Normal [facility] ([place]) Comment on above: Result Comment: [employer] (CHEST, 1991, 102:312S-25S) recommended therapeutic range for oral anticoagulant therapy is: LOW RISK: Prophylaxis of venous thrombosis INR: 2.0-3.0 Treatment of pulmonary embolism 2.0-3.0 Prevention of systemic embolism 2.0-3.0 HIGH RISK: Mechanical prosthetic valves 2.5-3.5 Performed By: #### B MP, ANEU, GFR, ADIFF, CBC #### [address] [address] PT Coag (PPP) [Time] 12.0 s Normal 9.0-14.4 [facility] ([place]) Comment on above: Result Comment: Effe ctive 01/26/08, Protime results may be affected by some antibiotics (i.e. Ciprofloxacin, Azithromycin, Bactrim) which may potentiate the action of oral anticoagulants, with further increases in Protime/INR. Performed By: #### B MP, ANEU, GFR, ADIFF, CBC #### [address] [address] TROPHSon 12-01-2023 High Sensitivity Troponin I 7 ng/L Normal 0-34 [facility] ([place]) Comment on above: Result Comment: High Sensitive Troponin I Reference Ranges: Female: 0-34 ng/L Male: 0-54 ng/L Testing performed on [employer] IM analyzer using direct chemiluminescent technology. Performed By: #### B MP, ANEU, GFR, ADIFF, CBC #### [address] [address] XR CHEST 1 VIEWon 12-01-2023 XR CHEST 1 VIEW ORIGINAL EXAMINATION: ONE XRAY VIEW OF THE CHEST 12/01/2023 1:16 pm COMPARISON: None. HISTORY: ORDERING SYSTEM PROVIDED HISTORY: Reason for Exam: Seizures FINDINGS: The lungs are without acute focal process. There is no effusion or pneumothorax. The cardiomediastinal silhouette is without acute process. The osseous structures are without acute process. IMPRESSION: No acute process. Interpreted by: Sandeep Oliveira DO Preliminary Report By: Sandeep Oliveira DO Electronically signed By Sandeep Oliveira DO Dictated Date: 12/01/2023 1:17:52 PM Prelim Date: 12/01/2023 1:18:39 PM Sign Date: 12/01/2023 1:18:39 PM Ordering Provider: LAVERN Irizarry [facility] ([place]) PATIENT INSTRUCTIONSon 10-06 Chronic Disease Manager Authentication Interface Message Text - prescription for prosthesis and office note will be faxed to [facility] - return to see me as needed for prosthetic, therapy, or equipment needs Normal Provider Locations PROGRESS NOTESon 10-07-2023 Chronic Disease Manager Authentication Interface Message Text NEW PATIENT PROSTHETICS VISIT 10/07/2023 TELEHEALTH Pardeep Mark : 1965 ASSESSMENT Encounter Diagnoses Name Primary? Acquired absence of left hip Yes Patient last minute cancellation for telehealth prosthetics visit with [facility]. Will attempt to reschedule. Electronically signed by: Jordy Aguilar MD, 10/07/2023 11:08 AM Normal Provider Locations [facility] 08-06-2023 CNPN Telephone (NE50MN) PARDEEP MARK ([id number]) 1965 F Date Time Provider Department 08/06/23 CAROL GAMEZ NE50MN During your visit today, we recorded the following information about you: Shanta Abreu 08/06/2023 2:04 PM Addendum ORDERS Person requesting order: Pardeep Mark Phone number: [phone] Order being requested: Depakote lab order Facility: [facility] Patient of Mando Quiñones, RN 08/06/2023 3:[address] lab order for VPA free and total. Thank you RICHARD Moralez Lynn, RN 08/07/2023 9:04 AM Signed Lab order faxed thru docusign Mando Palacio RN Allergies As of Date: 08/06/2023 Noted Allergy Reaction PHENOTHIAZINES 03/31/2003 Comments: compazine - shaking PROCHLORPERAZINE 08/02/2005 PROMETHAZINE 08/02/2005 7 - Swelling REGLAN (METOCLOPRAMIDE HCL) 08/12/2005 Comments: SHAKING Date Reviewed: 07/25/2023 Reviewed by: Ann Jones APRN.PURSE SEINING HAND - Fully Assessed Reason for Visit: Orders [681] Cmt: Lab orders Primary Visit Diagnosis:Convulsion s, unspecified convulsion type (HCC) [R56.9] Order(s):VALPRO AC/DEPAK FREE [SQVPAFR] Order #: [id number] FUTURE VALPROIC A/DEPAKENE [SQVPA] Order #: [id number] FUTURE Prescriptions as of 08/07/2023 - divalproex DR (DEPAKOTE) 500 mg EC tablet Take 1 tablet by mouth two times a day. - levETIRAcetam (KEPPRA) 750 mg tablet Take 1 tablet by mouth twice daily. - buprenorphine SL (SUBUTEX) 2 mg subl Dissolve 1 tablet under the tongue twice daily for 60 days. - pregabalin (LYRICA) 100 mg capsule Take 1 capsule by mouth three times daily for 60 days. - Gauze Bandage (KERLIX) 3.4 X 3.6 -yard bndg Apply 1 application to affected area three times daily. - QUEtiapine (SEROQUEL) 300 mg tablet Take 1 tablet by mouth daily at bedtime. - carvedilol (COREG) 6.25 mg tablet Take 6.25 mg by mouth twice daily with meals. - aspirin, enteric coated (ASPIRIN, ENTERIC COATED) 81 mg EC tablet Take 81 mg by mouth once daily. - Multivitamin capsule Take 1 capsule by mouth once daily. - Melatonin 5 mg cap Take 2 capsules by mouth daily at bedtime. - DULoxetine (CYMBALTA) 30 mg capsule Take 1 capsule by mouth once daily. - DULoxetine (CYMBALTA) 60 mg capsule Take 1 capsule by mouth once daily. - naloxone 4 mg/actuation nasal spray (NARCAN) Use 1 spray in one nostril as needed for overdose. 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] 11/10/2003 OPEN WOUND OF LEG NEC [S81.809A] 12/26/2003 PYOGEN ARTHRITIS NEC [M00.9] 05/31/2004 Localization-related focal epilepsy with simple* Surgical wound infection [T81.49XA] Difficulty walking [R26.2] 10/26/2009 Pain Following Surgery or Procedure [G89.18] 11/08/2009 Opioid dependence (HCC) [F11.20] 05/22/2010 Pain disorder [R52] 10/31/2010 Amputation of leg (HCC) [S88.919A] 12/28/2012 Compartment syndrome of forearm (HCC) [T79.A19A]07/16/2022 07/17/2022 Obesity, Class I, BMI 30-34.9 [E66.9] 07/16/2022 Sepsis (HCC) [A41.9] 07/24/2022 12/20/2022 Wound infection after surgery [T81.49XA] 07/24/2022 Leukocytosis [D72.829] 07/24/2022 Prolonged Q-T interval on ECG [R94.31] 07/24/2022 Postoperative wound dehiscence, initial encount*07/24/2022 Swelling of right hand [M79.89] 08/13/2022 Seizure disorder (HCC) [G40.909] 08/14/2022 Wound infection [T14.8XXA, L08.9] 08/14/2022 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]08/15/2022 History of ischemic stroke [Z86.73] 08/15/2022 Right arm pain [M79.601] 10/05/2022 Compartment syndrome of forearm (HCC) [T79.A19A]10/06/2022 Obesity, Class II, BMI 35-39.9 [E66.9] 10/11/2022 Encounter Status:Closed by MANDO PALACIO on 08/07/23 Normal [facility] CBC,PLATELETSon 05-13-2023 Hematocrit (Bld) [Volume fraction] 41.2 % Normal 34.9-44.3 [facility] Comment on above: Performed By: #### P TT, PTISTR #### [facility] (DEFAULT) [address] [place] [address] Hemoglobin (Bld) [Mass/Vol] 13.6 g/dL Normal 11.4-15.2 [facility] Comment on above: Performed By: #### P TT, PTISTR #### [facility] (DEFAULT) [address] [place] [address] MCV (RBC) [Entitic vol] 91.6 fL Normal 79.6-97.7 [facility] Comment on above: Performed By: #### P TT, PTISTR #### [facility] (DEFAULT) [address] [place] [address] Mean Cell Hgb 30.2 pg Normal 25.9-33.9 [facility] Comment on above: Performed By: #### P TT, PTISTR #### [facility] (DEFAULT) [address] [place] [address] Mean Cell Hgb Conc 33.0 g/dL Normal 31.4-35.9 [facility] Comment on above: Performed By: #### P TT, PTISTR #### [facility] (DEFAULT) [address] [place] [address] Platelet mean volume (Bld) [Entitic vol] 10.3 fL Normal 8.5-12.2 [facility] Comment on above: Performed By: #### P TT, PTISTR #### [facility] (DEFAULT) [address] [place] [address] Platelets (Bld) [#/Vol] 257 10*3/uL Normal 150-393 [facility] Comment on above: Performed By: #### P TT, PTISTR #### [facility] (DEFAULT) [address] [place] [address] 59263 RBC (Bld) [#/Vol] 4.50 10*6/uL Normal 3.91-5.04 [facility] Comment on above: Performed By: #### P TT, PTISTR #### [facility] (DEFAULT) [address] [place] [address] 58134 RBC Distribution 12.2 % Normal 10.8-14.9 [facility] Comment on above: Performed By: #### P TT, PTISTR #### [facility] (DEFAULT) [address] [place] [address] 46193 WBC (Bld) [#/Vol] 11.49 10*3/uL High 3.99-11.19 [facility] Comment on above: Performed By: #### P TT, PTISTR #### [facility] (DEFAULT) [address] [place] [address] 42127 Erythrocyte distribution width (RBC) [Ratio] 12.2 % 10.8 - 14.9 % [facility] Hematocrit (Bld) [Volume fraction] 41.2 % 34.9 - 44.3 % [facility] Hemoglobin (Bld) [Mass/Vol] 13.6 g/dL 11.4 - 15.2 g/dL [facility] Interpretation and review of laboratory results Abnormal [facility] MCH (RBC) [Entitic mass] 30.2 pg 25.9 - 33.9 pg [facility] MCHC (RBC) [Mass/Vol] 33.0 g/dL 31.4 - 35.9 g/dL [facility] MCV (RBC) [Entitic vol] 91.6 fL 79.6 - 97.7 fL [facility] Platelet mean volume (Bld) [Entitic vol] 10.3 fL 8.5 - 12.2 fL [facility] Platelets (Bld) [#/Vol] 257 10*3/uL 150 - 393 K/uL [facility] RBC (Bld) [#/Vol] 4.50 10*6/uL [facility] WBC (Bld) [#/Vol] 11.49 10*3/uL High 3.99 - 11 .19 K/uL [facility] CBC,PLATELETSon 05-12-2023 Hematocrit (Bld) [Volume fraction] 39.3 % Normal 34.9-44.3 [facility] Comment on above: Performed By: #### P TT, PTISTR #### [facility] (DEFAULT) [address] [place] [address] 94842 Hemoglobin (Bld) [Mass/Vol] 13.1 g/dL Normal 11.4-15.2 [facility] Comment on above: Performed By: #### P TT, PTISTR #### [facility] (DEFAULT) [address] [address] MCV (RBC) [Entitic vol] 90.6 fL Normal 79.6-97.7 [facility] Comment on above: Performed By: #### P TT, PTISTR #### [facility] (DEFAULT) [address] [place] [address] 33018 Mean Cell Hgb 30.2 pg Normal 25.9-33.9 [facility] Comment on above: Performed By: #### P TT, PTISTR #### [facility] (DEFAULT) [address] [place] [address] 86588 Mean Cell Hgb Conc 33.3 g/dL Normal 31.4-35.9 [facility] Comment on above: Performed By: #### P TT, PTISTR #### [facility] (DEFAULT) [address] [place] [address] 66945 Platelet mean volume (Bld) [Entitic vol] 10.2 fL Normal 8.5-12.2 [facility] Comment on above: Performed By: #### P TT, PTISTR #### [facility] (DEFAULT) [address] [place] [address] 80911 Platelets (Bld) [#/Vol] 237 10*3/uL Normal 150-393 [facility] Comment on above: Performed By: #### P TT, PTISTR #### [facility] (DEFAULT) [address] [place] [address] 37026 RBC (Bld) [#/Vol] 4.34 10*6/uL Normal 3.91-5.04 [facility] Comment on above: Performed By: #### P TT, PTISTR #### [facility] (DEFAULT) [address] [place] [address] 76242 RBC Distribution 12.0 % Normal 10.8-14.9 [facility] Comment on above: Performed By: #### P TT, PTISTR #### [facility] (DEFAULT) [address] [place] [address] 84352 WBC (Bld) [#/Vol] 8.30 10*3/uL Normal 3.99-11.19 [facility] Comment on above: Performed By: #### P TT, PTISTR #### [facility] (DEFAULT) [address] [place] [address] 85782 Erythrocyte distribution width (RBC) [Ratio] 12.0 % 10.8 - 14.9 % [facility] Hematocrit (Bld) [Volume fraction] 39.3 % 34.9 - 44.3 % [facility] Hemoglobin (Bld) [Mass/Vol] 13.1 g/dL 11.4 - 15.2 g/dL [facility] Interpretation and review of laboratory results Normal [facility] MCH (RBC) [Entitic mass] 30.2 pg 25.9 - 33.9 pg [facility] MCHC (RBC) [Mass/Vol] 33.3 g/dL 31.4 - 35.9 g/dL [facility] MCV (RBC) [Entitic vol] 90.6 fL 79.6 - 97.7 fL [facility] Platelet mean volume (Bld) [Entitic vol] 10.2 fL 8.5 - 12.2 fL [facility] Platelets (Bld) [#/Vol] 237 10*3/uL 150 - 393 K/uL [facility] RBC (Bld) [#/Vol] 4.34 10*6/uL [facility] WBC (Bld) [#/Vol] 8.30 10*3/uL 3.99 - 11. 19 K/uL [facility] CHEM 7 (LYTES,BUN,CREA,GLUC) on 05-12-2023 Anion gap [Moles/Vol] 13 mmol/L Normal 7-17 [facility] Comment on above: Performed By: #### P TT, PTISTR #### [facility] (DEFAULT) [address] [place] [address] Chloride [Moles/Vol] 106 mmol/L Normal 98-108 [facility] Comment on above: Performed By: #### P TT, PTISTR #### [facility] (DEFAULT) [address] [place] [address] 88960 CO2 [Moles/Vol] 27 mmol/L Normal 21-31 [facility] Comment on above: Performed By: #### P TT, PTISTR #### [facility] (DEFAULT) [address] [place] [address] 80125 Creatinine [Mass/Vol] 0.57 mg/dL Normal 0.50-1.20 [facility] Comment on above: Performed By: #### P TT, PTISTR #### [facility] (DEFAULT) [address] [place] [address] 30140 eGFR, CKD-EPI, Female > Normal >=60 [facility] Comment on above: Result Comment: Repo rted eGFR is based on the CKD-EPI 2020 equation using creatinine, age, and sex. Performed By: #### P TT, PTISTR #### [facility] (DEFAULT) [address] [place] [address] 14866 Glucose [Mass/Vol] 95 mg/dL Normal 70-99 [facility] Comment on above: Performed By: #### P TT, PTISTR #### [facility] (DEFAULT) [address] [place] [address] 87426 Osmolality [Osmolality] 294 mosm/kg Normal 278-305 [facility] Comment on above: Performed By: #### P TT, PTISTR #### [facility] (DEFAULT) [address] [place] [address] 03674 Potassium [Moles/Vol] 3.8 mmol/L Normal 3.5-5.0 [facility] Comment on above: Performed By: #### P TT, PTISTR #### [facility] (DEFAULT) [address] [place] [address] 70591 Sodium [Moles/Vol] 142 mmol/L Normal 135-145 [facility] Comment on above: Performed By: #### P TT, PTISTR #### [facility] (DEFAULT) [address] [place] [address] Urea nitrogen [Mass/Vol] 7 mg/dL Normal 7-25 [facility] Comment on above: Performed By: #### P TT, PTISTR #### [facility] (DEFAULT) [address] [place] [address] Urea nitrogen/Creatinine [Mass ratio] 12 mg/mg Normal [facility] Comment on above: Performed By: #### P TT, PTISTR #### [facility] (DEFAULT) [address] [place] [address] Anion gap [Moles/Vol] 13 mmol/L 7 - 17 mmol/L [facility] Chloride [Moles/Vol] 106 mmol/L 98 - 10 8 mmol/L [facility] CO2 [Moles/Vol] 27 mmol/L 21 - 31 mmol/L [facility] Creatinine [Mass/Vol] 0.57 mg/dL 0.50 - 1.20 mg/dL [facility] eGFR, CKD-EPI, Female - PINF [facility] Comment on above: Reported eGFR is bas ed on the CKD-EPI 2020 equation using creatinine, age, and sex. Glucose [Mass/Vol] 95 mg/dL 70 - 99 mg/dL [facility] Osmolality Calc [Osmolality] 294 [facility] Potassium [Moles/Vol] 3.8 mmol/L 3.5 - 5.0 mmol/L [facility] Sodium [Moles/Vol] 142 mmol/L 135 - 145 mmol/L [facility] Urea nitrogen [Mass/Vol] 7 mg/dL 7 - 25 mg/dL [facility] Urea nitrogen/Creatinine [Mass ratio] 12 mg/mg [facility] EXTRA MICROon 05-12-2023 [facility] VALPROIC ACID, TOTALon 05-12 Valproic Acid 28 mcg/mL Normal Therapeutic Range: 50-120 mcg/mL [facility] Comment on above: Order Comment: Pleas e draw level before next dose (4th dose) Performed By: #### P TT, PTISTR #### [facility] (DEFAULT) [address] [place] [address] 99039 VALPROIC ACID, TOTALOrdered By: Caprice Riddle on 05-12-2023 Interpretation and review of laboratory results Normal [facility] Valproate [Mass/Vol] 28 ug/mL [facility] CBC,PLATELETSon 05-11-2023 Hematocrit (Bld) [Volume fraction] 38.2 % Normal 34.9-44.3 [facility] Comment on above: Performed By: #### P TT, PTISTR #### [facility] (DEFAULT) [address] [place] [address] 45791 Hemoglobin (Bld) [Mass/Vol] 12.9 g/dL Normal 11.4-15.2 [facility] Comment on above: Performed By: #### P TT, PTISTR #### [facility] (DEFAULT) [address] [place] [address] 61077 MCV (RBC) [Entitic vol] 91.8 fL Normal 79.6-97.7 [facility] Comment on above: Performed By: #### P TT, PTISTR #### [facility] (DEFAULT) [address] [address] Mean Cell Hgb 31.0 pg Normal 25.9-33.9 [facility] Comment on above: Performed By: #### P TT, PTISTR #### [facility] (DEFAULT) [address] [place] [address] 94919 Mean Cell Hgb Conc 33.8 g/dL Normal 31.4-35.9 [facility] Comment on above: Performed By: #### P TT, PTISTR #### [facility] (DEFAULT) [address] [address] Platelet mean volume (Bld) [Entitic vol] 10.5 fL Normal 8.5-12.2 [facility] Comment on above: Performed By: #### P TT, PTISTR #### [facility] (DEFAULT) [address] [place] [address] 61366 Platelets (Bld) [#/Vol] 236 10*3/uL Normal 150-393 [facility] Comment on above: Performed By: #### P TT, PTISTR #### [facility] (DEFAULT) [address] [place] [address] 74011 RBC (Bld) [#/Vol] 4.16 10*6/uL Normal 3.91-5.04 [facility] Comment on above: Performed By: #### P TT, PTISTR #### [facility] (DEFAULT) [address] [place] [address] 93830 RBC Distribution 12.2 % Normal 10.8-14.9 [facility] Comment on above: Performed By: #### P TT, PTISTR #### [facility] (DEFAULT) [address] [place] [address] 07459 WBC (Bld) [#/Vol] 10.81 10*3/uL Normal 3.99-11.19 [facility] Comment on above: Performed By: #### P TT, PTISTR #### [facility] (DEFAULT) [address] [place] [address] 19031 Erythrocyte distribution width (RBC) [Ratio] 12.2 % 10.8 - 14.9 % [facility] Hematocrit (Bld) [Volume fraction] 38.2 % 34.9 - 44.3 % [facility] Hemoglobin (Bld) [Mass/Vol] 12.9 g/dL 11.4 - 15.2 g/dL [facility] Interpretation and review of laboratory results Normal [facility] MCH (RBC) [Entitic mass] 31.0 pg 25.9 - 33.9 pg [facility] MCHC (RBC) [Mass/Vol] 33.8 g/dL 31.4 - 35.9 g/dL [facility] MCV (RBC) [Entitic vol] 91.8 fL 79.6 - 97.7 fL [facility] Platelet mean volume (Bld) [Entitic vol] 10.5 fL 8.5 - 12.2 fL [facility] Platelets (Bld) [#/Vol] 236 10*3/uL 150 - 393 K/uL [facility] RBC (Bld) [#/Vol] 4.16 10*6/uL [facility] WBC (Bld) [#/Vol] 10.81 10*3/uL 3.99 - 11 .19 K/uL [facility] CHEM 7 (LYTES,BUN,CREA,GLUC) on 05-11-2023 Anion gap [Moles/Vol] 11 mmol/L Normal 7-17 [facility] Comment on above: Performed By: #### P TT, PTISTR #### [facility] (DEFAULT) [address] [place] [address] 33165 Chloride [Moles/Vol] 104 mmol/L Normal 98-108 [facility] Comment on above: Performed By: #### P TT, PTISTR #### [facility] (DEFAULT) [address] [place] [address] 26606 CO2 [Moles/Vol] 29 mmol/L Normal 21-31 [facility] Comment on above: Performed By: #### P TT, PTISTR #### [facility] (DEFAULT) [address] [place] [address] 75570 Creatinine [Mass/Vol] 0.63 mg/dL Normal 0.50-1.20 [facility] Comment on above: Performed By: #### P TT, PTISTR #### [facility] (DEFAULT) [address] [place] [address] 38416 eGFR, CKD-EPI, Female > Normal >=60 [facility] Comment on above: Result Comment: Repo rted eGFR is based on the CKD-EPI 2020 equation using creatinine, age, and sex. Performed By: #### P TT, PTISTR #### [facility] (DEFAULT) [address] [place] [address] 08535 Glucose [Mass/Vol] 113 mg/dL High 70-99 [facility] Comment on above: Performed By: #### P TT, PTISTR #### [facility] (DEFAULT) [address] [place] [address] 11243 Osmolality [Osmolality] 293 mosm/kg Normal 278-305 [facility] Comment on above: Performed By: #### P TT, PTISTR #### [facility] (DEFAULT) [address] [place] [address] 52543 Potassium [Moles/Vol] 3.6 mmol/L Normal 3.5-5.0 [facility] Comment on above: Performed By: #### P TT, PTISTR #### [facility] (DEFAULT) [address] [place] [address] 26230 Sodium [Moles/Vol] 140 mmol/L Normal 135-145 [facility] Comment on above: Performed By: #### P TT, PTISTR #### [facility] (DEFAULT) [address] [place] [address] 04243 Urea nitrogen [Mass/Vol] 12 mg/dL Normal 7-25 [facility] Comment on above: Performed By: #### P TT, PTISTR #### [facility] (DEFAULT) [address] [place] [address] 59279 Urea nitrogen/Creatinine [Mass ratio] 19 mg/mg Normal [facility] Comment on above: Performed By: #### P TT, PTISTR #### [facility] (DEFAULT) [address] [place] [address] 11607 Anion gap [Moles/Vol] 11 mmol/L 7 - 17 mmol/L [facility] Chloride [Moles/Vol] 104 mmol/L 98 - 10 8 mmol/L [facility] CO2 [Moles/Vol] 29 mmol/L 21 - 31 mmol/L [facility] Creatinine [Mass/Vol] 0.63 mg/dL 0.50 - 1.20 mg/dL [facility] eGFR, CKD-EPI, Female - PINF [facility] Comment on above: Reported eGFR is bas ed on the CKD-EPI 2020 equation using creatinine, age, and sex. Glucose [Mass/Vol] 113 mg/dL High 70 - 99 mg/dL [facility] Interpretation and review of laboratory results Abnormal [facility] Osmolality Calc [Osmolality] 293 [facility] Potassium [Moles/Vol] 3.6 mmol/L 3.5 - 5.0 mmol/L [facility] Sodium [Moles/Vol] 140 mmol/L 135 - 145 mmol/L [facility] Urea nitrogen [Mass/Vol] 12 mg/dL 7 - 25 mg/dL [facility] Urea nitrogen/Creatinine [Mass ratio] 19 mg/mg [facility] GLUCOSE POCon 05-11-2023 Glucose [Mass/Vol] 99 mg/dL 70 - 99 mg/dL [facility] POC Sample Type CAPBL [facility] Test performed at address of the patient encounter. [facility] HEPATIC FUNCTION PANELon Albumin [Mass/Vol] 3.8 g/dL 3.5 - 5.0 g/dL [facility] ALP [Catalytic activity/Vol] 74 U/L 32 - 126 U/L [facility] ALT [Catalytic activity/Vol] 28 U/L 9 - 48 U/L [facility] AST [Catalytic activity/Vol] 23 U/L 10 - 39 U/L [facility] Bilirubin [Mass/Vol] 0.5 mg/dL NINF - 1.5 mg/dL [facility] Bilirubin.direct [Mass/Vol] 0.1 mg/dL NINF - 0.3 mg/dL [facility] Interpretation and review of laboratory results Normal [facility] Protein [Mass/Vol] 6.5 g/dL 6.4 - 8.3 g/dL [facility] Albumin [Mass/Vol] 3.8 g/dL Normal 3.5-5.0 [facility] Comment on above: Performed By: #### P TT, PTISTR #### [facility] (DEFAULT) [address] [place] [address] 21035 ALP [Catalytic activity/Vol] 74 U/L Normal 32-126 [facility] Comment on above: Performed By: #### P TT, PTISTR #### [facility] (DEFAULT) [address] [place] [address] 92155 ALT [Catalytic activity/Vol] 28 U/L Normal 9-48 [facility] Comment on above: Performed By: #### P TT, PTISTR #### [facility] (DEFAULT) [address] [place] [address] 20856 AST [Catalytic activity/Vol] 23 U/L Normal 10-39 [facility] Comment on above: Performed By: #### P TT, PTISTR #### [facility] (DEFAULT) [address] [place] [address] 84658 Bilirubin [Mass/Vol] 0.5 mg/dL Normal <1.5 [facility] Comment on above: Performed By: #### P TT, PTISTR #### [facility] (DEFAULT) [address] [place] [address] 54173 Bilirubin.indirect [Mass/Vol] 0.1 mg/dL Normal <0.3 [facility] Comment on above: Performed By: #### P TT, PTISTR #### [facility] (DEFAULT) [address] [place] [address] 82925 Protein [Mass/Vol] 6.5 g/dL Normal 6.4-8.3 [facility] Comment on above: Performed By: #### P TT, PTISTR #### [facility] (DEFAULT) [address] [place] [address] 58017 LAVENDER TOP TUBEon 05-11-20 23 [facility] URINALYSIS REFLEX TO CULTURE PERFORMABLEon 05-11-2023 Appearance (U) Clear Normal Clear [facility] Comment on above: Order Comment: Three serum separators are necessary for this test. Lab accession under [id number] Performed By: #### L [id number] #### [facility] (DEFAULT) [address] [place] [address] 87254 Bacteria ABSENT Normal ABSENT [facility] Comment on above: Order Comment: Three serum separators are necessary for this test. Lab accession under [id number] Performed By: #### L [id number] #### [facility] (DEFAULT) [address] [place] [address] 35355 Blood Urine Negative Normal Negative [facility] Comment on above: Order Comment: Three serum separators are necessary for this test. Lab accession under [id number] Performed By: #### L AB970 #### [facility] (DEFAULT) [address] [place] [address] 04891 Color (U) Yellow Normal Yellow [facility] Comment on above: Order Comment: Three serum separators are necessary for this test. Lab accession under [id number] Performed By: #### L AB970 #### [facility] (DEFAULT) [address] [place] [address] 66567 Glucose Ql (U) Negative Normal Negative [facility] Comment on above: Order Comment: Three serum separators are necessary for this test. Lab accession under [id number] Performed By: #### L [id number] #### [facility] (DEFAULT) [address] [place] [address] 54833 Ketones Ql (U) Trace Abnormal Negative [facility] Comment on above: Order Comment: Three serum separators are necessary for this test. Lab accession under [id number] Performed By: #### L [id number] #### [facility] (DEFAULT) [address] [place] [address] 81219 Leukocyte esterase Test strip Ql (U) Negative Normal Negative [facility] Comment on above: Order Comment: Three serum separators are necessary for this test. Lab accession under [id number] Performed By: #### L [id number] #### [facility] (DEFAULT) [address] [place] [address] 35120 Nitrites Urine Negative Normal Negative [facility] Comment on above: Order Comment: Three serum separators are necessary for this test. Lab accession under [id number] Performed By: #### L [id number] #### [facility] (DEFAULT) [address] [address] pH (U) 5.5 [pH] Normal 5.0-7.0 [facility] Comment on above: Order Comment: Three serum separators are necessary for this test. Lab accession under [id number] Performed By: #### L [id number] #### [facility] (DEFAULT) [address] [address] Protein Urine Negative Normal Negative [facility] Comment on above: Order Comment: Three serum separators are necessary for this test. Lab accession under [id number] Performed By: #### L [id number] #### [facility] (DEFAULT) [address] [address] RBC Urine 0-2 Normal 0-2 [facility] Comment on above: Order Comment: Three serum separators are necessary for this test. Lab accession under [id number] Performed By: #### L [id number] #### [facility] (DEFAULT) [address] [address] Specific [place] Urine 1.035 Normal 1.001-1.035 [facility] Comment on above: Order Comment: Three serum separators are necessary for this test. Lab accession under [id number] Performed By: #### L [id number] #### [facility] (DEFAULT) [address] [address] Squamous/Epithelial Cells 0-2/hpf Normal 0-2/hpf, 3-5/hpf = 1+ [facility] Comment on above: Order Comment: Three serum separators are necessary for this test. Lab accession under [id number] Performed By: #### L [id number] #### [facility] (DEFAULT) [address] [address] Urobilinogen Urine 0.2 E.U./dL Normal 0.2 E.U/d L, 1.0 E.U/dL [facility] Comment on above: Order Comment: Three serum separators are necessary for this test. Lab accession under [id number] Performed By: #### L [id number] #### [facility] (DEFAULT) [address] [place] [address] 66039 WBC Urine 0 - 5 Normal 0 - 5 [facility] Comment on above: Order Comment: Three serum separators are necessary for this test. Lab accession under [id number] Performed By: #### L [id number] #### [facility] (DEFAULT) [address] [place] [address] 27988 Appearance (U) Clear Clear [facility] Bacteria LM Ql (Urine sed) ABSENT ABSENT [facility] Color (U) Yellow Yellow [facility] Epithelial cells.squamous LM Ql (Urine sed) 0-2/hpf 0-2/hpf, 3-5/hpf = 1+ [facility] Glucose Test strip (U) [Mass/Vol] Negative Negative [facility] Interpretation and review of laboratory results Abnormal [facility] Ketones (U) [Mass/Vol] Trace Abnormal Negative [facility] Leukocyte esterase Test strip Ql (U) Negative Negative [facility] Nitrite Ql (U) Negative Negative [facility] pH (U) 5.5 [pH] 5.0 - 7.0 [facility] Protein (U) [Mass/Vol] Negative Negative [facility] RBC (U) [#/Vol] Negative Negative [facility] RBC LM.HPF (Urine sed) [#/Area] 0-2 [facility] Specific gravity (U) [Rel density] 1.035 1.001 - 1.035 [facility] Urobilinogen (U) [Mass/Vol] 0.2 E.U./dL 0.2 E.U/dL, 1.0 E.U/dL [facility] WBC LM.HPF (Urine sed) [#/Area] 0 - 5 [facility] CBC,PLATELETSon 10-28-2023 Hematocrit (Bld) [Volume fraction] 44.2 % Normal 34.9-44.3 [facility] Comment on above: Performed By: #### P TT, PTISTR #### [facility] (DEFAULT) [address] [place] [address] 22794 Hemoglobin (Bld) [Mass/Vol] 14.5 g/dL Normal 11.4-15.2 [facility] [facility] Comment on above: Performed By: #### P TT, PTISTR #### [facility] (DEFAULT) [address] [place] [address] 13860 MCV (RBC) [Entitic vol] 94.0 fL Normal 79.6-97.7 [facility] Comment on above: Performed By: #### P TT, PTISTR #### [facility] (DEFAULT) [address] [place] [address] 71250 Mean Cell Hgb 30.9 pg Normal 25.9-33.9 [facility] Comment on above: Performed By: #### P TT, PTISTR #### [facility] (DEFAULT) [address] [place] [address] 49255 Mean Cell Hgb Conc 32.8 g/dL Normal 31.4-35.9 [facility] Comment on above: Performed By: #### P TT, PTISTR #### [facility] (DEFAULT) [address] [place] [address] 90587 Platelet mean volume (Bld) [Entitic vol] 10.4 fL Normal 8.5-12.2 [facility] Comment on above: Performed By: #### P TT, PTISTR #### [facility] (DEFAULT) [address] [place] [address] 75791 Platelets (Bld) [#/Vol] 268 10*3/uL Normal 150-393 [facility] Comment on above: Performed By: #### P TT, PTISTR #### [facility] (DEFAULT) [address] [place] [address] 62686 RBC (Bld) [#/Vol] 4.70 10*6/uL Normal 3.91-5.04 [facility] Comment on above: Performed By: #### P TT, PTISTR #### [facility] (DEFAULT) [address] [place] [address] 92705 RBC Distribution 12.0 % Normal 10.8-14.9 [facility] Comment on above: Performed By: #### P TT, PTISTR #### [facility] (DEFAULT) [address] [place] [address] 55022 WBC (Bld) [#/Vol] 12.20 10*3/uL High 3.99-11.19 [facility] Comment on above: Performed By: #### P TT, PTISTR #### [facility] (DEFAULT) [address] [place] [address] 04144 Erythrocyte distribution width (RBC) [Ratio] 12.0 % 10.8 - 14.9 % [facility] Hematocrit (Bld) [Volume fraction] 44.2 % 34.9 - 44.3 % [facility] Hemoglobin (Bld) [Mass/Vol] 14.5 g/dL 11.4 - 15.2 g/dL [facility] Interpretation and review of laboratory results Abnormal [facility] MCH (RBC) [Entitic mass] 30.9 pg 25.9 - 33.9 pg [facility] MCHC (RBC) [Mass/Vol] 32.8 g/dL 31.4 - 35.9 g/dL [facility] MCV (RBC) [Entitic vol] 94.0 fL 79.6 - 97.7 fL [facility] Platelet mean volume (Bld) [Entitic vol] 10.4 fL 8.5 - 12.2 fL [facility] Platelets (Bld) [#/Vol] 268 10*3/uL 150 - 393 K/uL [facility] RBC (Bld) [#/Vol] 4.70 10*6/uL [facility] WBC (Bld) [#/Vol] 12.20 10*3/uL High 3.99 - 11 .19 K/uL [facility] CHEM 7 (LYTES,BUN,CREA,GLUC) on 05-10-2023 Anion gap [Moles/Vol] 17 mmol/L Normal 7-17 [facility] Comment on above: Performed By: #### P TT, PTISTR #### [facility] (DEFAULT) [address] [place] [address] 72910 Chloride [Moles/Vol] 105 mmol/L Normal 98-108 [facility] Comment on above: Performed By: #### P TT, PTISTR #### [facility] (DEFAULT) [address] [place] [address] 12002 CO2 [Moles/Vol] 23 mmol/L Normal 21-31 [facility] Comment on above: Performed By: #### P TT, PTISTR #### [facility] (DEFAULT) [address] [place] [address] 49718 Creatinine [Mass/Vol] 0.77 mg/dL Normal 0.50-1.20 [facility] Comment on above: Performed By: #### P TT, PTISTR #### [facility] (DEFAULT) [address] [place] [address] 05170 GFR/1.73 sq M.predicted among non-blacks MDRD (S/P/Bld) [Vol rate/Area] 89 mL/min/{1.73_m2} Normal >=60 [facility] Comment on above: Result Comment: Repo rted eGFR is based on the CKD-EPI 2020 equation using creatinine, age, and sex. Performed By: #### P TT, PTISTR #### [facility] (DEFAULT) [address] [place] [address] 91185 Glucose [Mass/Vol] 100 mg/dL High 70-99 [facility] Comment on above: Performed By: #### P TT, PTISTR #### [facility] (DEFAULT) [address] [place] [address] 74960 Osmolality [Osmolality] 294 mosm/kg Normal 278-305 [facility] Comment on above: Performed By: #### P TT, PTISTR #### [facility] (DEFAULT) [address] [place] [address] 11616 Potassium [Moles/Vol] 4.0 mmol/L Normal 3.5-5.0 [facility] Comment on above: Performed By: #### P TT, PTISTR #### [facility] (DEFAULT) [address] [place] [address] 86731 Sodium [Moles/Vol] 141 mmol/L Normal 135-145 [facility] Comment on above: Performed By: #### P TT, PTISTR #### [facility] (DEFAULT) [address] [place] [address] 61632 Urea nitrogen [Mass/Vol] 12 mg/dL Normal 7-25 [facility] Comment on above: Performed By: #### P TT, PTISTR #### [facility] (DEFAULT) [address] [place] [address] 08552 Urea nitrogen/Creatinine [Mass ratio] 16 mg/mg Normal [facility] Comment on above: Performed By: #### P TT, PTISTR #### [facility] (DEFAULT) [address] [place] [address] 81221 CHEM 7 (LYTES,BUN,CREA,GLUC) Ordered By: Janna Uribe on 05-10-2023 Anion gap [Moles/Vol] 17 mmol/L 7 - 17 mmol/L [facility] Chloride [Moles/Vol] 105 mmol/L 98 - 10 8 mmol/L [facility] CO2 [Moles/Vol] 23 mmol/L 21 - 31 mmol/L [facility] Creatinine [Mass/Vol] 0.77 mg/dL 0.50 - 1.20 mg/dL [facility] eGFR, CKD-EPI, Female 89 - PINF [facility] Comment on above: Reported eGFR is bas ed on the CKD-EPI 2020 equation using creatinine, age, and sex. Glucose [Mass/Vol] 100 mg/dL High 70 - 99 mg/dL [facility] Interpretation and review of laboratory results Abnormal [facility] Osmolality Calc [Osmolality] 294 [facility] Potassium [Moles/Vol] 4.0 mmol/L 3.5 - 5.0 mmol/L [facility] Sodium [Moles/Vol] 141 mmol/L 135 - 145 mmol/L [facility] Urea nitrogen [Mass/Vol] 12 mg/dL 7 - 25 mg/dL [facility] Urea nitrogen/Creatinine [Mass ratio] 16 mg/mg [facility] EXTRA MICROon 05-10-2023 [facility] GLUCOSE POCon 05-10-2023 Glucose [Mass/Vol] 107 mg/dL High 70 - 99 mg/dL [facility] Interpretation and review of laboratory results Abnormal [facility] POC Sample Type CAPBL [facility] Test performed at address of the patient encounter. [facility] HEP B SURFACE AG-Alden 04-14 Hepatitis B Surface Ag-Stat Negative Normal Negative [facility] Comment on above: Order Comment: Three serum separators are necessary for this test. Lab accession under [id number] Performed By: #### L [id number] #### [facility] (DEFAULT) [address] [address] HEPATITIS C ANTIBODYon 05-10 Hepatitis C Antibody Negative Normal Negative [facility] Comment on above: Order Comment: Three serum separators are necessary for this test.Lab accession under [id number] Performed By: #### P TT, PTISTR #### [facility] (DEFAULT) [address] [address] HIV 1 AND 2 ANTIBODIES/P24 A NTIGENon 05-10-2023 HIV-1/HIV-2 Ab With p24 Antigen Non-Reactive Normal Non Reactive [facility] Comment on above: Order Comment: Three serum separators are necessary for this test.Lab accession under [id number] Performed By: #### P TT, PTISTR #### [facility] (DEFAULT) [address] [address] LEVETIRACETAM LEVELon 2022 levETIRAcetam [Mass/Vol] 34.5 ug/mL [facility] Comment on above: ADDITIONAL INFORMATION This test was developed and its performance characteristics determined by [facility] in a manner consistent with CLIA requirements. This test has not been cleared or approved by the U.S. Food and Drug Administration. Test Performed by: [facility] [address] [place] [address] Desktop Support Technician: Scottie Bryan M.D. Ph.D.; CLIA# [id number] [facility] LT BLUE TOP TUBEon 3 [facility] RAPID HIV-1/HIV-2 AB WITH P2 4 ANTIGENon 05-10-2023 Rapid HIV-1/HIV-2 AB Non-Reactive Normal Non Reactive [facility] Comment on above: Order Comment: Three serum separators are necessary for this test.Lab accession under [id number] Performed By: #### P TT, PTISTR #### [facility] (DEFAULT) [address] [place] [address] Rapid P24 Antigen Non-Reactive Normal Non Reactive [facility] Comment on above: Order Comment: Three serum separators are necessary for this test.Lab accession under [id number] Performed By: #### P TT, PTISTR #### [facility] (DEFAULT) [address] [address] URINE CULTUREOrdered By: Liz Palmer on 05-10-2023 Bacteria identified Cx Nom (Unsp spec) Growth [facility] Bacteria identified Cx Nom (Unsp spec) 10,000-50,000 CFU/mL Mixed microbes [facility] Comment on above: Multiple bacterial m orphotypes present. Suggest appropriate recollection if clinically indicated. [facility] CALCIUMon 10-27-2023 Calcium [Mass/Vol] 8.1 mg/dL Low 8.6-10.5 [facility] Comment on above: Performed By: #### P TT, PTISTR #### [facility] (DEFAULT) [address] [place] [address] 30875 Calcium [Mass/Vol] 8.1 mg/dL Low 8.6 - 10. 5 mg/dL [facility] CBC AND ELECTRONIC DIFFon Basophils (Bld) [#/Vol] 0.08 10*3/uL Normal 0.00-0.15 [facility] Comment on above: Performed By: #### L [id number] #### [facility] (DEFAULT) [address] [place] [address] 18711 Basophils/100 WBC (Bld) 0.7 % Normal [facility] Comment on above: Performed By: #### L [id number] #### [facility] (DEFAULT) [address] [place] [address] 10048 DIFF STATUS Electronic Differential Normal [facility] Comment on above: Performed By: #### L [id number] #### [facility] (DEFAULT) [address] [place] [address] 20989 Eosinophils (Bld) [#/Vol] 0.16 10*3/uL Normal 0.00-0.42 [facility] Comment on above: Performed By: #### L [id number] #### [facility] (DEFAULT) [address] [place] [address] 70796 Eosinophils/100 WBC (Bld) 1.3 % Normal [facility] Comment on above: Performed By: #### L [id number] #### [facility] (DEFAULT) [address] [place] [address] 04891 Hematocrit (Bld) [Volume fraction] 37.5 % Normal 34.9-44.3 [facility] Comment on above: Performed By: #### L [id number] #### [facility] (DEFAULT) [address] [place] [address] 08958 Hemoglobin (Bld) [Mass/Vol] 12.9 g/dL Normal 11.4-15.2 [facility] Comment on above: Performed By: #### L [id number] #### [facility] (DEFAULT) [address] [address] Immature Grans % 0.4 % Normal [facility] Comment on above: Performed By: #### L [id number] #### [facility] (DEFAULT) [address] [address] Immature Grans Absolute 0.05 K/uL Normal <=0.08 [facility] Comment on above: Performed By: #### L [id number] #### [facility] (DEFAULT) [address] [address] Lymphocytes (Bld) [#/Vol] 3.75 10*3/uL High 1.16-3.51 [facility] Comment on above: Performed By: #### L [id number] #### [facility] (DEFAULT) [address] [address] Lymphocytes/100 WBC (Bld) 30.7 % Normal [facility] Comment on above: Performed By: #### L [id number] #### [facility] (DEFAULT) [address] [address] MCV (RBC) [Entitic vol] 90.8 fL Normal 79.6-97.7 [facility] Comment on above: Performed By: #### L [id number] #### [facility] (DEFAULT) [address] [address] Mean Cell Hgb 31.2 pg Normal 25.9-33.9 [facility] Comment on above: Performed By: #### L [id number] #### [facility] (DEFAULT) [address] [address] Mean Cell Hgb Conc 34.4 g/dL Normal 31.4-35.9 [facility] Comment on above: Performed By: #### L [id number] #### [facility] (DEFAULT) [address] [place] [address] 70912 Monocytes (Bld) [#/Vol] 0.98 10*3/uL High 0.22-0.87 [facility] Comment on above: Performed By: #### L [id number] #### [facility] (DEFAULT) [address] [place] [address] 07359 Monocytes/100 WBC (Bld) 8.0 % Normal [facility] Comment on above: Performed By: #### L [id number] #### [facility] (DEFAULT) [address] [address] Nucleated RBC 0.0 /100 WBC Normal <=0.2 [facility] Comment on above: Performed By: #### L [id number] #### [facility] (DEFAULT) [address] [place] [address] 17540 Platelet mean volume (Bld) [Entitic vol] 10.4 fL Normal 8.5-12.2 [facility] Comment on above: Performed By: #### L [id number] #### [facility] (DEFAULT) [address] [address] Platelets (Bld) [#/Vol] 242 10*3/uL Normal 150-393 [facility] Comment on above: Performed By: #### L [id number] #### [facility] (DEFAULT) [address] [address] RBC (Bld) [#/Vol] 4.13 10*6/uL Normal 3.91-5.04 [facility] Comment on above: Performed By: #### L [id number] #### [facility] (DEFAULT) [address] [address] RBC Distribution 11.9 % Normal 10.8-14.9 [facility] Comment on above: Performed By: #### L [id number] #### [facility] (DEFAULT) [address] [address] Segs + Bands Auto 58.9 % Normal [facility] Comment on above: Performed By: #### L [id number] #### [facility] (DEFAULT) [address] [place] [address] 89606 Segs + Bands,Absolute Auto 7.20 K/uL Normal 1.64-7.28 [facility] Comment on above: Performed By: #### L [id number] #### [facility] (DEFAULT) [address] [place] [address] 47071 WBC (Bld) [#/Vol] 12.22 10*3/uL High 3.99-11.19 [facility] Comment on above: Performed By: #### L [id number] #### [facility] (DEFAULT) [address] [place] [address] 17458 CHM 7 - EDon 05-09-2023 Anion gap [Moles/Vol] 9 mmol/L Normal 7-17 [facility] Comment on above: Performed By: #### P TT, PTISTR #### [facility] (DEFAULT) [address] [place] [address] 56534 Chloride [Moles/Vol] 104 mmol/L Normal 98-108 [facility] Comment on above: Performed By: #### P TT, PTISTR #### [facility] (DEFAULT) [address] [place] [address] 98593 CO2 [Moles/Vol] 25 mmol/L Normal 21-31 [facility] Comment on above: Performed By: #### P TT, PTISTR #### [facility] (DEFAULT) [address] [place] [address] 60957 Creatinine [Mass/Vol] 0.61 mg/dL Normal 0.50-1.20 [facility] Comment on above: Performed By: #### P TT, PTISTR #### [facility] (DEFAULT) [address] [place] [address] 43110 eGFR, CKD-EPI, Female > Normal >=60 [facility] Comment on above: Result Comment: Repo rted eGFR is based on the CKD-EPI 2020 equation using creatinine, age, and sex. Performed By: #### P TT, PTISTR #### [facility] (DEFAULT) [address] [place] [address] 26944 Glucose [Mass/Vol] 102 mg/dL High 70-99 [facility] Comment on above: Performed By: #### P TT, PTISTR #### [facility] (DEFAULT) [address] [place] [address] 13651 Osmolality [Osmolality] 280 mosm/kg Normal 278-305 [facility] Comment on above: Performed By: #### P TT, PTISTR #### [facility] (DEFAULT) [address] [place] [address] 08205 Potassium [Moles/Vol] 3.6 mmol/L Normal 3.5-5.0 [facility] Comment on above: Performed By: #### P TT, PTISTR #### [facility] (DEFAULT) [address] [place] [address] 89755 Sodium [Moles/Vol] 134 mmol/L Low 135-145 [facility] Comment on above: Performed By: #### P TT, PTISTR #### [facility] (DEFAULT) [address] [place] [address] 28603 Urea nitrogen [Mass/Vol] 10 mg/dL Normal 7-25 [facility] Comment on above: Performed By: #### P TT, PTISTR #### [facility] (DEFAULT) [address] [place] [address] 87450 Urea nitrogen/Creatinine [Mass ratio] 16 mg/mg Normal [facility] Comment on above: Performed By: #### P TT, PTISTR #### [facility] (DEFAULT) [address] [place] [address] 21100 Anion gap [Moles/Vol] 9 mmol/L 7 - 17 mmol/L [facility] Chloride [Moles/Vol] 104 mmol/L 98 - 10 8 mmol/L [facility] CO2 [Moles/Vol] 25 mmol/L 21 - 31 mmol/L [facility] Creatinine [Mass/Vol] 0.61 mg/dL 0.50 - 1.20 mg/dL [facility] eGFR, CKD-EPI, Female - PINF [facility] Comment on above: Reported eGFR is bas ed on the CKD-EPI 2020 equation using creatinine, age, and sex. Glucose [Mass/Vol] 102 mg/dL High 70 - 99 mg/dL [facility] Interpretation and review of laboratory results Abnormal [facility] Osmolality Calc [Osmolality] 280 [facility] Potassium [Moles/Vol] 3.6 mmol/L 3.5 - 5.0 mmol/L [facility] Sodium [Moles/Vol] 134 mmol/L Low 135 - 145 mmol/L [facility] Urea nitrogen [Mass/Vol] 10 mg/dL 7 - 25 mg/dL [facility] Urea nitrogen/Creatinine [Mass ratio] 16 mg/mg [facility] 05-09-2023 CK [Catalytic activity/Vol] 63 U/L Normal 30-184 [facility] Comment on above: Performed By: #### P TT, PTISTR #### [facility] (DEFAULT) [address] [place] [address] 31147 CK [Catalytic activity/Vol] 63 U/L 30 - 184 U/L [facility] CT CEREBRAL PERFUSION ANALYS Anthony 05-09-2023 CT CEREBRAL PERFUSION ANALYSIS EXAM: CT CEREBRAL PERFUSION ANALYSIS, 05/08/2023 23:25 PM COMPARISON: May 08, 2023 CT head. CLINICAL INDICATIONS: 58 years Female Suspected Stroke; RELEVANT CLINICAL HISTORY: TECHNIQUE: A series of axial multislice computerized tomographic images of the brain are obtained following rapid bolus administration of contrast. FINDINGS: Examination is technically adequate. [employer] automated software assessment: Estimated infarct core (CBF<30%): 0 mL. Estimated penumbra (perfusion mismatch): 0 mL. Tmax >6s: 0 mL. Additional, notable findings on the syngo.via perfusion maps: None. IMPRESSION: CT perfusion examination is within normal limits I personally viewed and interpreted these images and I have reviewed and approved this report. Normal [facility] CT STROKE HEAD-STROKE ALERT ONLYon 05-09-2023 CT STROKE HEAD-STROKE ALERT ONLY EXAM: CT STROKE HEAD-STROKE ALERT ONLY, 05/08/2023 11:12 PM COMPARISON: Earlier May 08, 2023 CT head. CLINICAL INDICATIONS: 58 years Female Suspected Stroke; RELEVANT CLINICAL HISTORY: TECHNIQUE: A series of transaxial computerized tomographic images are obtained from base of skull to vertex without intravenous contrast. Axial whole-head and thin section posterior fossa slices are provided. Reformats: Sagittal and coronal. FINDINGS: There is a small area of hypodensity in the lateral left frontal lobe (series 3, image 23). Hypodensity in the area of the right basal ganglia likely represent remote insult. Patchy periventricular white matter hypoattenuation is noted which is non-specific, but likely due to chronic small vessel ischemic changes. No acute intracranial hemorrhage is seen. No significant mass effect or midline shift. Ventricles are normal in size and configuration for patient age. Skull appears intact. Visualized orbits appear normal. Visualized paranasal sinuses are clear. Visualized mastoid air cells are clear. IMPRESSION: 1. Small area of hypodensity in the lateral left frontal lobe, may reflect acute left MCA territory infarct, but could also reflect partial volume averaging. 2. No intracranial hemorrhage. Findings were discussed with Dr. Rebecca Velasquez at 2325 on May 08, 2023. I personally viewed and interpreted these images and I have reviewed and approved this report. Normal [facility] GLUCOSE POCon 05-09-2023 Glucose [Mass/Vol] 108 mg/dL High 70 - 99 mg/dL [facility] Interpretation and review of laboratory results Abnormal [facility] POC Sample Type CAPBL [facility] Test performed at address of the patient encounter. [facility] Glucose [Mass/Vol] 182 mg/dL High 70 - 99 mg/dL [facility] Interpretation and review of laboratory results Abnormal [facility] POC Sample Type CAPBL [facility] Test performed at address of the patient encounter. [facility] HEMOGLOBIN A1Con 05-09-2023 Average glucose Estimated from glycated hemoglobin (Bld) [Mass/Vol] 134 mg/dL [facility] HbA1c (Bld) [Mass fraction] 6.3 % High 4.7 - 5.6 % [facility] Interpretation and review of laboratory results Abnormal [facility] Glucose [Mass/Vol] 134 mg/dL Normal [facility] Comment on above: Performed By: #### L [id number] #### [facility] (DEFAULT) [address] [place] [address] Hemoglobin A1C HPLC 6.3 % High 4.7-5.6 [facility] Comment on above: Performed By: #### L [id number] #### [facility] (DEFAULT) [address] [place] [address] 68546 HEPATIC FUNCTION PANELon Albumin [Mass/Vol] 3.6 g/dL Normal 3.5-5.0 [facility] Comment on above: Performed By: #### P TT, PTISTR #### [facility] (DEFAULT) [address] [place] [address] 38077 ALP [Catalytic activity/Vol] 71 U/L Normal 32-126 [facility] Comment on above: Performed By: #### P TT, PTISTR #### [facility] (DEFAULT) [address] [place] [address] 58287 ALT [Catalytic activity/Vol] 19 U/L Normal 9-48 [facility] Comment on above: Performed By: #### P TT, PTISTR #### [facility] (DEFAULT) [address] [place] [address] 52092 AST [Catalytic activity/Vol] 20 U/L Normal 10-39 [facility] Comment on above: Performed By: #### P TT, PTISTR #### [facility] (DEFAULT) [address] [place] [address] 85344 Bilirubin [Mass/Vol] 0.4 mg/dL Normal <1.5 [facility] Comment on above: Performed By: #### P TT, PTISTR #### [facility] (DEFAULT) [address] [place] [address] 65456 Bilirubin.indirect [Mass/Vol] 0.1 mg/dL Normal <0.3 [facility] Comment on above: Performed By: #### P TT, PTISTR #### [facility] (DEFAULT) [address] [place] [address] 00815 Protein [Mass/Vol] 6.1 g/dL Low 6.4-8.3 [facility] Comment on above: Performed By: #### P TT, PTISTR #### [facility] (DEFAULT) [address] [place] [address] 18868 Albumin [Mass/Vol] 3.6 g/dL 3.5 - 5.0 g/dL [facility] ALP [Catalytic activity/Vol] 71 U/L 32 - 126 U/L [facility] ALT [Catalytic activity/Vol] 19 U/L 9 - 48 U/L [facility] AST [Catalytic activity/Vol] 20 U/L 10 - 39 U/L [facility] Bilirubin [Mass/Vol] 0.4 mg/dL NINF - 1.5 mg/dL [facility] Bilirubin.direct [Mass/Vol] 0.1 mg/dL NINF - 0.3 mg/dL [facility] Protein [Mass/Vol] 6.1 g/dL Low 6.4 - 8.3 g/dL [facility] HIGH SENSITIVITY TROPONIN I - SINGLE ORDERon 05-09-2023 hs-Troponin I 4 ng/L Normal <34 [facility] Comment on above: Order Comment: Three serum separators are necessary for this test. Lab accession under [id number] Performed By: #### L [id number] #### [facility] (DEFAULT) [address] [address] Interpretation and review of laboratory results Normal [facility] Troponin I.cardiac High sensitivity method [Mass/Vol] 4 ng/L NINF - 34 ng/L [facility] LEVETIRACETAM LEVELon 2022 LEVETIRACETAM LEVEL 34.5 mcg/mL Normal 10.0-40.0 [facility] Comment on above: Order Comment: Pleas e draw level at specified interval PRIOR to dose. Result Comment: ADDITIONAL INFORMATION This test was developed and its performance characteristics determined by [facility] in a manner consistent with CLIA requirements. This test has not been cleared or approved by the U.S. Food and Drug Administration. Test Performed by: [place] [address] Desktop Support Technician: Scottie Bryan M.D. Ph.D.; CLIA# [id number] Performed By: #### Y LEVNH #### [facility] (DEFAULT) [address] [address] LIPID PANEL WITH REFLEX TO M EASURED LDLon 05-09-2023 Calculated LDL Cholesterol 89 mg/dL Normal 0-99 [facility] Comment on above: Result Comment: [<10 0 mg/dL: Optimal] [100-129 mg/dL: Near Optimal] [130-159 mg/dL: Borderline High] [160-189 mg/dL: High] [>189 mg/dL: Very High] Performed By: #### L IPDR #### [facility] (DEFAULT) [address] [address] Cholesterol [Mass/Vol] 137 mg/dL Normal <200 [facility] Comment on above: Result Comment: [<20 0 mg/dL: Desirable] [200-239 mg/dL: Borderline High] [>239 mg/dL: High] Performed By: #### L IPDR #### [facility] (DEFAULT) [address] [place] [address] Cholesterol in HDL [Mass/Vol] 29 mg/dL Low >=40 [facility] Comment on above: Result Comment: [<40 mg/dL: Low (High Risk)] [>59 mg/dL: High (Low Risk)] Performed By: #### L IPDR #### [facility] (DEFAULT) [address] [place] [address] Non HDL Cholesterol 108 mg/dL Normal <130 [facility] Comment on above: Performed By: #### L IPDR #### [facility] (DEFAULT) [address] [place] [address] Total Cholesterol/HDL Ratio 4.7 High <4.5 [facility] Comment on above: Performed By: #### L IPDR #### [facility] (DEFAULT) [address] [place] [address] Triglyceride [Mass/Vol] 95 mg/dL Normal <150 [facility] Comment on above: Result Comment: [<15 0 mg/dL: Desirable] [150-199 mg/dL: Borderline] [200-499 mg/dL: High] [>500 mg/dL: Very High] Performed By: #### L IPDR #### [facility] (DEFAULT) [address] [place] [address] Cholesterol [Mass/Vol] 137 mg/dL NINF - 200 mg/dL [facility] Comment on above: [<200 mg/dL: Desirab le] [200-239 mg/dL: Borderline High] [>239 mg/dL: High] Cholesterol in HDL [Mass/Vol] 29 mg/dL Low 40 - PINF mg/dL [facility] Comment on above: [<40 mg/dL: Low (Hig h Risk)] [>59 mg/dL: High (Low Risk)] Cholesterol in HDL [Mass/Vol] 108 mg/dL NINF - 130 mg/dL [facility] Cholesterol in LDL [Mass/Vol] 89 mg/dL 0 - 99 mg/dL [facility] Comment on above: [<100 mg/dL: Optimal ] [100-129 mg/dL: Near Optimal] [130-159 mg/dL: Borderline High] [160-189 mg/dL: High] [>189 mg/dL: Very High] Cholesterol.total/Cho lesterol in HDL [Mass ratio] 4.7 {ratio} High NINF - 4.5 [facility] Interpretation and review of laboratory results Abnormal [facility] Triglyceride [Mass/Vol] 95 mg/dL NINF - 150 mg/dL [facility] Comment on above: [<150 mg/dL: Desirab le] [150-199 mg/dL: Borderline] [200-499 mg/dL: High] [>500 mg/dL: Very High] MAGNESIUMon 05-09-2023 Magnesium [Mass/Vol] 1.8 mg/dL Normal 1.6-2.6 [facility] Comment on above: Performed By: #### P TT, PTISTR #### [facility] (DEFAULT) [address] [place] [address] Magnesium [Mass/Vol] 1.8 mg/dL 1.6 - 2 .6 mg/dL [facility] MR Brain WO contraston 05-09 IMPRESSION: No acute intracranial abnormality. No evidence of acute infarct or intracranial hemorrhage. 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 OLOGY EXAM: MRI BRAIN WITHOUT CONTRAST, 05/09/2023 05:14 AM COMPARISON: No priors available for comparison. CLINICAL INDICATIONS: 58 years Female Stroke Workup; TECHNIQUE: A series of multisequence, multiplanar images of the brain are obtained without intravenous contrast. Study was performed at 1.5 [place]. FINDINGS: There is a chronic infarct in the right anterior basal ganglia. Minimal scattered white matter FLAIR hyperintensities, nonspecific although commonly associated with chronic small vessel ischemic change. The ventricles are normal in size and configuration for the patient's age. There is no diffusion abnormality to indicate an acute infarct. There is no evidence of intracranial hemorrhage. There is no mass lesion, mass effect, or shift of the midline structures. There is no basal cistern effacement. There is no abnormal extra-axial collection. The paranasal sinuses and mastoid air cells are generally clear. The orbits are unremarkable. The calvarium is intact. RADIOLOGY Favio Casey MD - 05/09/2023 EXAM: MRI BRAIN WITHOUT CONTRAST, 05/09/2023 05:14 AM COMPARISON: No priors available for comparison. CLINICAL INDICATIONS: 58 years Female Stroke Workup; TECHNIQUE: A series of multisequence, multiplanar images of the brain are obtained without intravenous contrast. Study was performed at 1.5 [place]arly[address]. FINDINGS: There is a chronic infarct in the right anterior basal ganglia. Minimal scattered white matter FLAIR hyperintensities, nonspecific although commonly associated with chronic small vessel ischemic change. The ventricles are normal in size and configuration for the patient's age. There is no diffusion abnormality to indicate an acute infarct. There is no evidence of intracranial hemorrhage. There is no mass lesion, mass effect, or shift of the midline structures. There is no basal cistern effacement. There is no abnormal extra-axial collection. The paranasal sinuses and mastoid air cells are generally clear. The orbits are unremarkable. The calvarium is intact. IMPRESSION IMPRESSION: No acute intracranial abnormality. No evidence of acute infarct or intracranial hemorrhage. 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 [facility] Radiology Study observation (narrative) [facility] MR Brain WO contrastOrdered By: Favio Casey on 05-09-2023 [facility] Work Phone: MRI BRAIN WITHOUT CONTRASTon 05-09-2023 MRI BRAIN WITHOUT CONTRAST EXAM: MRI BRAIN WITHOUT CONTRAST, 05/09/2023 05:14 AM COMPARISON: No priors available for comparison. CLINICAL INDICATIONS: 58 years Female Stroke Workup; TECHNIQUE: A series of multisequence, multiplanar images of the brain are obtained without intravenous contrast. Study was performed at 1.5 [place]arly[address]. FINDINGS: There is a chronic infarct in the right anterior basal ganglia. Minimal scattered white matter FLAIR hyperintensities, nonspecific although commonly associated with chronic small vessel ischemic change. The ventricles are normal in size and configuration for the patient's age. There is no diffusion abnormality to indicate an acute infarct. There is no evidence of intracranial hemorrhage. There is no mass lesion, mass effect, or shift of the midline structures. There is no basal cistern effacement. There is no abnormal extra-axial collection. The paranasal sinuses and mastoid air cells are generally clear. The orbits are unremarkable. The calvarium is intact. IMPRESSION: No acute intracranial abnormality. No evidence of acute infarct or intracranial hemorrhage. 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 Normal [facility] No Panel Informationon 05-09 [facility] Interpretation and review of laboratory results Normal [facility] Interpretation and review of laboratory results Abnormal [facility] PHOSPHATE, INORGANICon 05-09 Phosphorous 3.3 mg/dL Normal 2.2-4.6 [facility] Comment on above: Performed By: #### P TT, PTISTR #### [facility] (DEFAULT) [address] [place] [address] Phosphate [Mass/Vol] 3.3 mg/dL 2.2 - 4 .6 mg/dL [facility] PLATELET COUNTon 05-09-2023 Platelet mean volume (Bld) [Entitic vol] 10.6 fL Normal 8.5-12.2 [facility] Comment on above: Performed By: #### P TT, PTISTR #### [facility] (DEFAULT) [address] [place] [address] Platelets (Bld) [#/Vol] 272 10*3/uL Normal 150-393 [facility] Comment on above: Performed By: #### P TT, PTISTR #### [facility] (DEFAULT) [address] [place] [address] Interpretation and review of laboratory results Normal [facility] Platelet mean volume (Bld) [Entitic vol] 10.6 fL 8.5 - 12.2 fL [facility] Platelets (Bld) [#/Vol] 272 10*3/uL 150 - 393 K/uL [facility] PTINR-STROKEon 05-09-2023 INR Coag (PPP) [Relative time] 1.1 {INR} Normal 0.9-1.1 [facility] Comment on above: Performed By: #### P TT, PTISTR #### [facility] (DEFAULT) [address] [place] [address] PT Coag (PPP) [Time] 14.1 s Normal 11.9-14.2 [facility] Comment on above: Performed By: #### P TT, PTISTR #### [facility] (DEFAULT) [address] [place] [address] INR Coag (Bld) [Relative time] 1.1 {INR} 0.9 - 1.1 [facility] Interpretation and review of laboratory results Normal [facility] PT Coag (PPP) [Time] 14.1 s [facility] PTTon 05-09-2023 aPTT Coag (Bld) [Time] 26.1 s Normal 24.0-34.3 [facility] Comment on above: Performed By: #### P TT, PTISTR #### [facility] (DEFAULT) [address] [place] [address] aPTT Coag (PPP) [Time] 26.1 s [facility] Interpretation and review of laboratory results Normal [facility] URINALYSIS REFLEX TO CULTURE PERFORMABLEon 05-09-2023 Appearance (U) Cloudy Abnormal Clear [facility] Comment on above: Order Comment: For i ndwelling catheters, specimen collection is acceptable on catheter day 1 and 2 only. ? Performed By: #### U [id number] #### [facility] (DEFAULT) [address] [place] [address] Bacteria PRESENT Abnormal ABSENT [facility] Comment on above: Order Comment: For i ndwelling catheters, specimen collection is acceptable on catheter day 1 and 2 only. ? Performed By: #### U [id number] #### [facility] (DEFAULT) [address] [place] [address] Blood Urine Negative Normal Negative [facility] Comment on above: Order Comment: For i ndwelling catheters, specimen collection is acceptable on catheter day 1 and 2 only. ? Performed By: #### U [id number] #### [facility] (DEFAULT) [address] [place] [address] Color (U) Yellow Normal Yellow [facility] Comment on above: Order Comment: For i ndwelling catheters, specimen collection is acceptable on catheter day 1 and 2 only. ? Performed By: #### U [id number] #### [facility] (DEFAULT) [address] [place] [address] Glucose Ql (U) Negative Normal Negative [facility] Comment on above: Order Comment: For i ndwelling catheters, specimen collection is acceptable on catheter day 1 and 2 only. ? Performed By: #### U [id number] #### [facility] (DEFAULT) [address] [place] [address] Ketones Ql (U) Negative Normal Negative [facility] Comment on above: Order Comment: For i ndwelling catheters, specimen collection is acceptable on catheter day 1 and 2 only. ? Performed By: #### U [id number] #### [facility] (DEFAULT) [address] [place] [address] Leukocyte esterase Test strip Ql (U) Small Abnormal Negative [facility] Comment on above: Order Comment: For i ndwelling catheters, specimen collection is acceptable on catheter day 1 and 2 only. ? Performed By: #### U [id number] #### [facility] (DEFAULT) [address] [place] [address] Nitrites Urine Negative Normal Negative [facility] Comment on above: Order Comment: For i ndwelling catheters, specimen collection is acceptable on catheter day 1 and 2 only. ? Performed By: #### U [id number] #### [facility] (DEFAULT) [address] [place] [address] pH (U) 5.0 [pH] Normal 5.0-7.0 [facility] Comment on above: Order Comment: For i ndwelling catheters, specimen collection is acceptable on catheter day 1 and 2 only. ? Performed By: #### U [id number] #### [facility] (DEFAULT) [address] [place] [address] Protein Urine Negative Normal Negative [facility] Comment on above: Order Comment: For i ndwelling catheters, specimen collection is acceptable on catheter day 1 and 2 only. ? Performed By: #### U [id number] #### [facility] (DEFAULT) [address] [place] [address] RBC Urine 0-2 Normal 0-2 [facility] Comment on above: Order Comment: For i ndwelling catheters, specimen collection is acceptable on catheter day 1 and 2 only. ? Performed By: #### U [id number] #### [facility] (DEFAULT) [address] [place] [address] Specific [place] Urine > High 1.001-1.035 [facility] Comment on above: Order Comment: For i ndwelling catheters, specimen collection is acceptable on catheter day 1 and 2 only. ? Performed By: #### U [id number] #### [facility] (DEFAULT) [address] [place] [address] Squamous/Epithelial Cells >20/hpf = 4+ Abnormal 0-2/hpf, 3-5/hpf = 1+ [facility] Comment on above: Order Comment: For i ndwelling catheters, specimen collection is acceptable on catheter day 1 and 2 only. ? Performed By: #### U [id number] #### [facility] (DEFAULT) [address] [place] [address] Urobilinogen Urine 0.2 E.U./dL Normal 0.2 E.U/d L, 1.0 E.U/dL [facility] Comment on above: Order Comment: For i ndwelling catheters, specimen collection is acceptable on catheter day 1 and 2 only. ? Performed By: #### U [id number] #### [facility] (DEFAULT) [address] [place] [address] WBC LM.HPF (Urine sed) [#/Area] /[HPF] Abnormal 0 - 5 [facility] Comment on above: Order Comment: For i ndwelling catheters, specimen collection is acceptable on catheter day 1 and 2 only. ? Performed By: #### U [id number] #### [facility] (DEFAULT) [address] [place] [address] URINALYSIS REFLEX TO CULTURE PERFORMABLEOrdered By: Franchesca Dillon on 05-09-2023 Appearance (U) Cloudy Abnormal Clear [facility] Bacteria LM Ql (Urine sed) PRESENT Abnormal ABSENT [facility] Color (U) Yellow Yellow U [facility] Epithelial cells.squamous LM Ql (Urine sed) >20/hpf = 4+ Abnormal 0-2/hpf, 3-5/hpf = 1+ [facility] Glucose Test strip (U) [Mass/Vol] Negative Negative [facility] Interpretation and review of laboratory results Abnormal [facility] Ketones (U) [Mass/Vol] Negative Negative [facility] Leukocyte esterase Test strip Ql (U) Small Abnormal Negative [facility] Nitrite Ql (U) Negative Negative [facility] pH (U) 5.0 [pH] 5.0 - 7.0 [facility] Protein (U) [Mass/Vol] Negative Negative [facility] RBC (U) [#/Vol] Negative [facility] RBC LM.HPF (Urine sed) [#/Area] 0-2 [facility] Specific gravity (U) [Rel density] High 1.001 - 1.035 [facility] Urobilinogen (U) [Mass/Vol] 0.2 E.U./dL 0.2 E.U/dL, 1.0 E.U/dL [facility] WBC LM.HPF (Urine sed) [#/Area] /[facility]HPF] [facility] URINE CULTUREon 05-09-2023 Bacteria identified Cx Nom (U) Normal [facility] Comment on above: Order Comment: For i ndwelling catheters, specimen collection is acceptable on catheter day 1 and 2 only. Miller top vacutainer. Urine must be to the fill line to process (4mls). If minimum volume, send urine in a yellow top vacutainer tube. For indwelling catheters, specimen collection is acceptable on catheter day 1 and 2 only. ? Result Comment: Grow th [id number] MICROBESMIXED MICROBES 10,000-50,000 CFU/mL Mixed microbes Multiple bacterial morphotypes present. Suggest appropriate recollection if clinically indicated. Performed By: #### U R #### [facility] (DEFAULT) [address] [id number] URINE DRUG SCREEN 10Ordered By: Rosaura Carreon on 05-09-2023 Amphetamine+Methamphe tamine Screen (U) [Mass/Vol] Not detected [facility] Barbiturates Ql (U) Not detected [facility] Benzodiazepines Ql (U) Not detected [facility] Buprenorphine Ql (U) Positive Abnormal [facility] Cannabinoids Screen Ql (U) Not detected [facility] Cocaine Ql (U) Not detected [facility] fentaNYL Ql (U) Not detected [facility] Interpretation and review of laboratory results Abnormal [facility] Methadone Ql (U) Not detected [facility] Opiates Ql (U) Not detected [facility] oxyCODONE Ql (U) Not detected [facility] For medical purposes only. Positive results are unconfirmed unless otherwise noted. [facility] URINE DRUG SCREEN 10on 05-09 Amphetamine/Methamphe tamine Not detected Normal Cutoff: 500 ng/mL [facility] Comment on above: Order Comment: For m edical purposes only. Positive results are unconfirmed unless otherwise noted. Performed By: #### 1 0DRUG #### [facility] (DEFAULT) [address] [address] Barbiturates Not detected Normal Cutoff: 200 ng/mL [facility] Comment on above: Order Comment: For edical purposes only. Positive results are unconfirmed unless otherwise noted. Performed By: #### 1 0DRUG #### [facility] (DEFAULT) [address] [address] Benzodiazepines Not detected Normal Cutoff: 200 ng/mL [facility] Comment on above: Order Comment: For m edical purposes only. Positive results are unconfirmed unless otherwise noted. Performed By: #### 1 0DRUG #### [facility] (DEFAULT) [address] [address] Buprenorphine Positive Abnormal Cutoff: 5 ng/mL [facility] Comment on above: Order Comment: For edical purposes only. Positive results are unconfirmed unless otherwise noted. Performed By: #### 1 0DRUG #### [facility] (DEFAULT) [address] [address] Cannabinoids Screen Ql (U) Not detected Normal Cutoff: 50 ng/mL [facility] Comment on above: Order Comment: For edical purposes only. Positive results are unconfirmed unless otherwise noted. Performed By: #### 1 0DRUG #### [facility] (DEFAULT) [address] [address] Cocaine Not detected Normal Cutoff: 150 ng/mL [facility] Comment on above: Order Comment: For edical purposes only. Positive results are unconfirmed unless otherwise noted. Performed By: #### 1 0DRUG #### [facility] (DEFAULT) [address] [address] Fentanyl Not detected Normal Cutoff: 1 ng/mL [facility] Comment on above: Order Comment: For edical purposes only. Positive results are unconfirmed unless otherwise noted. Performed By: #### 1 0DRUG #### [facility] (DEFAULT) [address] [address] Methadone Not detected Normal Cutoff: 300 ng/mL [facility] Comment on above: Order Comment: For m edical purposes only. Positive results are unconfirmed unless otherwise noted. Performed By: #### 1 0DRUG #### [facility] (DEFAULT) [address] [place] [address] Opiates Not detected Normal Cutoff: 300 ng/mL [facility] Comment on above: Order Comment: For m edical purposes only. Positive results are unconfirmed unless otherwise noted. Performed By: #### 1 0DRUG #### [facility] (DEFAULT) [address] [place] [address] Oxycodone Not detected Normal Cutoff: 100 ng/mL [facility] Comment on above: Order Comment: For m edical purposes only. Positive results are unconfirmed unless otherwise noted. Performed By: #### 1 0DRUG #### [facility] (DEFAULT) [address] [address] CBC AND ELECTRONIC DIFFon Basophils (Bld) [#/Vol] 0.08 10*3/uL 0.00 - 0.15 K/uL [facility] Basophils/100 WBC (Bld) 0.7 % [facility] Differential cell count method Nom (Bld) Electronic Differential [facility] Eosinophils (Bld) [#/Vol] 0.16 10*3/uL 0.00 - 0.42 K/uL [facility] Eosinophils/100 WBC (Bld) 1.3 % [facility] Erythrocyte distribution width (RBC) [Ratio] 11.9 % 10.8 - 14.9 % [facility] Hematocrit (Bld) [Volume fraction] 37.5 % 34.9 - 44.3 % [facility] Hemoglobin (Bld) [Mass/Vol] 12.9 g/dL 11.4 - 15.2 g/dL [facility] Immature granulocytes (Bld) [#/Vol] 0.05 10*3/uL NINF - 0.08 K/uL [facility] Immature granulocytes/100 WBC (Bld) 0.4 % [facility] Interpretation and review of laboratory results Abnormal [facility] Lymphocytes (Bld) [#/Vol] 3.75 10*3/uL High 1.16 - 3.51 K/uL [facility] Lymphocytes/100 WBC (Bld) 30.7 % [facility] MCH (RBC) [Entitic mass] 31.2 pg 25.9 - 33.9 pg [facility] MCHC (RBC) [Mass/Vol] 34.4 g/dL 31.4 - 35.9 g/dL [facility] MCV (RBC) [Entitic vol] 90.8 fL 79.6 - 97.7 fL [facility] Monocytes (Bld) [#/Vol] 0.98 10*3/uL High 0.22 - 0.87 K/uL [facility] Monocytes/100 WBC (Bld) 8.0 % [facility] Neutrophils (Bld) [#/Vol] 7.20 10*3/uL 1.64 - 7.28 K/uL [facility] Nucleated RBC/100 WBC (Bld) [Ratio] 0.0 % NINF [facility] Platelet mean volume (Bld) [Entitic vol] 10.4 fL 8.5 - 12.2 fL [facility] Platelets (Bld) [#/Vol] 242 10*3/uL 150 - 393 K/uL [facility] RBC (Bld) [#/Vol] 4.13 10*6/uL [facility] Segmented neutrophils/100 WBC (Bld) 58.9 % [facility] WBC (Bld) [#/Vol] 12.22 10*3/uL High 3.99 - 11 .19 K/uL [facility] CT CEREBRAL PERFUSION ANALYS Anthony 05-08-2023 IMPRESSION: CT perfusion examination is within normal limits I personally viewed and interpreted these images and I have reviewed and approved this report. OLOGY EXAM: CT CEREBRAL PERFUSION ANALYSIS, 05/08/2023 23:25 PM COMPARISON: May 08, 2023 CT head. CLINICAL INDICATIONS: 58 years Female Suspected Stroke; RELEVANT CLINICAL HISTORY: TECHNIQUE: A series of axial multislice computerized tomographic images of the brain are obtained following rapid bolus administration of contrast. FINDINGS: Examination is technically adequate. Viz.ai automated software assessment: Estimated infarct core (CBF<30%): 0 mL. Estimated penumbra (perfusion mismatch): 0 mL. Tmax >6s: 0 mL. Additional, notable findings on the syngo.via perfusion maps: None. RADIOLOGY Kirill Maciel MD - 05/08/2023 EXAM: CT CEREBRAL PERFUSION ANALYSIS, 05/08/2023 23:25 PM COMPARISON: May 08, 2023 CT head. CLINICAL INDICATIONS: 58 years Female Suspected Stroke; RELEVANT CLINICAL HISTORY: TECHNIQUE: A series of axial multislice computerized tomographic images of the brain are obtained following rapid bolus administration of contrast. FINDINGS: Examination is technically adequate. Viz.ai automated software assessment: Estimated infarct core (CBF<30%): 0 mL. Estimated penumbra (perfusion mismatch): 0 mL. Tmax >6s: 0 mL. Additional, notable findings on the syngo.via perfusion maps: None. IMPRESSION IMPRESSION: CT perfusion examination is within normal limits I personally viewed and interpreted these images and I have reviewed and approved this report. [facility] Radiology Study observation (narrative) [facility] CT Head limitedon 05-08-2023 IMPRESSION: 1. Small area of hypodensity in the lateral left frontal lobe, may reflect acute left MCA territory infarct, but could also reflect partial volume averaging. 2. No intracranial hemorrhage. Findings were discussed with Dr. Rebecca Velasquez at 2325 on May 08, 2023. I personally viewed and interpreted these images and I have reviewed and approved this report. OLOGY EXAM: CT STROKE HEAD-STROKE ALERT ONLY, 05/08/2023 11:12 PM COMPARISON: Earlier May 08, 2023 CT head. CLINICAL INDICATIONS: 58 years Female Suspected Stroke; RELEVANT CLINICAL HISTORY: TECHNIQUE: A series of transaxial computerized tomographic images are obtained from base of skull to vertex without intravenous contrast. Axial whole-head and thin section posterior fossa slices are provided. Reformats: Sagittal and coronal. FINDINGS: There is a small area of hypodensity in the lateral left frontal lobe (series 3, image 23). Hypodensity in the area of the right basal ganglia likely represent remote insult. Patchy periventricular white matter hypoattenuation is noted which is non-specific, but likely due to chronic small vessel ischemic changes. No acute intracranial hemorrhage is seen. No significant mass effect or midline shift. Ventricles are normal in size and configuration for patient age. Skull appears intact. Visualized orbits appear normal. Visualized paranasal sinuses are clear. Visualized mastoid air cells are clear. RADIOLOGY Kirill Maciel MD - 05/08/2023 EXAM: CT STROKE HEAD-STROKE ALERT ONLY, 05/08/2023 11:12 PM COMPARISON: Earlier May 08, 2023 CT head. CLINICAL INDICATIONS: 58 years Female Suspected Stroke; RELEVANT CLINICAL HISTORY: TECHNIQUE: A series of transaxial computerized tomographic images are obtained from base of skull to vertex without intravenous contrast. Axial whole-head and thin section posterior fossa slices are provided. Reformats: Sagittal and coronal. FINDINGS: There is a small area of hypodensity in the lateral left frontal lobe (series 3, image 23). Hypodensity in the area of the right basal ganglia likely represent remote insult. Patchy periventricular white matter hypoattenuation is noted which is non-specific, but likely due to chronic small vessel ischemic changes. No acute intracranial hemorrhage is seen. No significant mass effect or midline shift. Ventricles are normal in size and configuration for patient age. Skull appears intact. Visualized orbits appear normal. Visualized paranasal sinuses are clear. Visualized mastoid air cells are clear. IMPRESSION IMPRESSION: 1. Small area of hypodensity in the lateral left frontal lobe, may reflect acute left MCA territory infarct, but could also reflect partial volume averaging. 2. No intracranial hemorrhage. Findings were discussed with Dr. Rebecca Velasquez at 2325 on May 08, 2023. I personally viewed and interpreted these images and I have reviewed and approved this report. [facility] Radiology Study observation (narrative) [facility] CT Head limitedOrdered By: Rhonda Maciel on 05-08-2023 [facility] CNOVon 11-11-2022 CNOV Office Visit (NEEP) PARDEEP MARK ([id number]) 1965 F Date Time Provider Department 11/11/22 10:00 AM CAROL GAMEZ During your visit today, we recorded the following information about you: Temperature Pulse Respiration Blood pressure 96.3 degrees 95/minute 20/minute 137/72 Weight Height 99.8 kg 1.6 m Carol Gamez MD 11/11/2022 12:05 PM Signed [facility] Patient Name: Pardeep RAMIRES Date of : 1965 INITIAL EPILEPSY CLINIC NOTE 11/11/2022 10:00 AM CHIEF COMPLAINT: New Patient HISTORY OF PRESENT ILLNESS Ms. Mark is a 57 year old right-handed female seen in [facility] for initial consultation. At today's visit, the patient is accompanied by: daughter, granddaughter Handedness: right-handed Age of onset: 30 years Seizure History and Evolution 57 year old woman presents with recurrent events. History is summarized as follows: - At 30 years of age, she had episodes of losing speech, slurring words, feels out of it, and exhausted afterward with UI and BI. She would also bite the middle of her tongue and bleed from it. She also recalls an aura of an unpleasant smell. - She saw a neurologist in [place] and did an 8-hour video EEG at [facility] that she reports captured an episode. The test was cut short following the captured event and started on carbamazepine for it. - Sometime later around age [age] years, she was evaluated at [facility] with an EMU that did not capture the events. She was told that the EEG did not show any epilepsy related findings and continued CBZ. 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 - She took CBZ for 20 years until about two years ago due to frequent supratherapeutic CBZ levels, her PCP decided to trial without medication. It was weaned off over one year and has been off CBZ for the last year. - In Fall of 2020, she was admitted for possible overdose on pain medications and Benadryl. The possibility of a suicidal attempt was also entertained. However, the patient denied this and reports taking medications by mistake. She was told at the time that she has a history of chronic TIA due to findings on MRI brain. - On 07/14/22 she was found down by her neighbor around 7 am. She dislocated her right shoulder and injured her right wrist requiring a fasciotomy. She has no recollection of the whole event. Apparently, she had woken up and checked her Facebook. She then took the puppy for a walk and fell in the garage from about 3-4 am until she was found at 7 am. She was taken to [place] and then transferred to [facility] on 07/15/22. - She was readmitted for cellulitis from 07/24/22-08/08/22 and had a second event in the hospital diagnosed as a seizure and started on LEV. - The third admission was 08/14/22-08/15/22 for swelling without incident. - The fourth admission was 10/05-10/14 when she had the third event. Pseudoseizures were entertained as a possibility. - Then around October 20, she had the fourth event followed by a fifth event at her grandson's birthday republican. - The sixth one was at [facility] ED. Her daughter had a video of the event that I was able to see. She appeared unresponsive and shaking. - The seventh one was at the psychiatric hospital where she was admitted for depression and possible withdrawal from buprenorphine. She was on pain medications for a long time. 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 Since starting Keppra, episodes have continued and agreed that it was not helping. She is not driving now and her main goal is to return to driving. She reports a history of PTSD. She had a divorce about three years ago. Total # of Current Anti-seizure Medications: 1 Side Effects to Current Anti-seizure Medications: none Seizure Frequency at First Visit: 7 per 6 months Longest Seizure-free Interval: 15 years Number of seizure types: 1 Hx of generalized tonic-clonic seizures: Yes Tongue bite: Yes Urine or Bowel Incontinence: Yes Triggers: unknown Postictal Deficits: No Memory complaints: mild Status Epilepticus or clusters: No Postictal Agitation: No Significant Injuries from Seizures: recent unwitnessed fall on 07/14/22 is not clear if seizure related to mechanical fall or other Seizure-related driving accidents: No Driving: No Lives Alone: Yes ED Visits in Last 3 Months: Yes Hospitalizations in Last 3 Months: Yes Highest Level of Education: Associate's and/or Bachelor's degree 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 Normal [facility] CT PULMONARY ARTERIESon 10-12 CT PULMONARY ARTERIES EXAMINATION: CTA OF THE CHEST 10/27/2022 TECHNIQUE: CTA of the chest was performed after the administration of intravenous contrast. Multiplanar reformatted images are provided for review. MIP images are provided for review. Dose modulation, iterative reconstruction, and/or weight based adjustment of the mA/kV was utilized to reduce the radiation dose to as low as reasonably achievable. COMPARISON: 07/09/2009 HISTORY: ORDERING SYSTEM PROVIDED HISTORY: Pulmonary embolism (PE) suspected, high prob; TECHNOLOGIST PROVIDED HISTORY: Illness/Other Acuity: Acute Reason for Exam: Pulmonary embolism (PE) suspected, high prob Type of Encounter: Initial Additional signs and symptoms: Pulmonary embolism (PE) suspected, high prob FINDINGS: Pulmonary Arteries: No evidence of intraluminal filling defect to suggest pulmonary embolism. 3.6 cm main pulmonary trunk concerning for pulmonary arterial hypertension. Mediastinum: Moderate to severe cardiomegaly. Lungs/pleura: Negative for pneumonia or pleural effusion. Upper Abdomen: Enlarged fatty liver. Soft Tissues/Bones: Thoracic spine is intact. IMPRESSION: No evidence of pulmonary embolism. Evidence for pulmonary arterial hypertension. Cardiomegaly. No evidence for pneumonia. Workstation ID: [id number] Dictated by: NICKI ISABEL on FriOct 28, 2022 1:00:57 AM EDT Transcribed by: NICKI ISABEL on FriOct 28, 2022 1:00:57 AM EDT Finalized by: NICKI ISABEL on FriOct 28, 2022 1:00:57 AM EDT [facility] Comment on above: Order Comment: Injur y/Trauma or Illness?:Illness/Other How long have you had these symptoms (acute/chronic)?:Acute Reason for exam?:Pulmonary embolism (PE) suspected, high prob Type of Exam?:Initial Additional signs and symptoms?:Pulmonary embolism (PE) suspected, high prob MR BRAIN WITH AND WITHOUT CO NTRASTon 10-28-2022 MR BRAIN WITH AND WITHOUT CONTRAST EXAMINATION: MRI OF THE BRAIN WITHOUT AND WITH CONTRAST 10/28/2022 TECHNIQUE: Multiplanar multisequence MRI of the head/brain was performed without and with the administration of intravenous contrast. COMPARISON: None. HISTORY: ORDERING SYSTEM PROVIDED HISTORY: seizure like episodes; TECHNOLOGIST PROVIDED HISTORY: Illness/Other Acuity: Acute Reason for Exam: seizure like episodes Type of Encounter: Initial Additional signs and symptoms: seizure like episodes ORDERING SYSTEM PROVIDED DIAGNOSIS CODES: R09.02 Hypoxia F44.5 Psychiatric pseudoseizure Initial evaluation FINDINGS: INTRACRANIAL STRUCTURES/VENTRICLE S: There is no acute infarct. The ventricles and cisternal spaces are normal in size, shape, and configuration for the age of the patient. There is previous area of injury or insult in the right basal ganglia. There are minimal chronic small vessel ischemic changes. There are no areas of restricted diffusion. There is no midline shift or mass effect. No abnormal areas of enhancement are identified in the visualized brain parenchyma. ORBITS: The visualized portion of the orbits demonstrate no acute abnormality. SINUSES: The visualized paranasal sinuses and mastoid air cells are for the most part clear. BONES/SOFT TISSUES: The bone marrow signal intensity appears normal. The soft tissues demonstrate no acute abnormality. IMPRESSION: Previous area of injury or insult in the right basal ganglia. Minimal chronic small vessel ischemic changes. No acute brain parenchymal abnormality. D/marcela Workstation ID: [id number] Dictated by: SHANTA MURRIETA on FriOct 28, 2022 7:06:40 PM EDT Transcribed by: MARLA WILLIS on FriOct 28, 2022 7:08:36 PM EDT Finalized by: SHANTA MURRIETA on FriOct 31, 2022 7:49:49 AM EDT [facility] Comment on above: Order Comment: Injur y/Trauma or Illness?:Illness/Other How long have you had these symptoms (acute/chronic)?:Acute Reason for exam?:seizure like episodes Type of Exam?:Initial Additional signs and symptoms?:seizure like episodes XR CHEST PA/APon 10-28-2022 XR CHEST PA/AP EXAMINATION: ONE XRAY VIEW OF THE CHEST 10/27/2022 7:56 pm COMPARISON: None. HISTORY: ORDERING SYSTEM PROVIDED HISTORY: hypoxia, hypoventillation, ro aspiration/pna; TECHNOLOGIST PROVIDED HISTORY: Illness/Other Acuity: Unknown Reason for Exam: hypoxia, hypoventillation, ro aspiration/pna Cancer History: unk Surgery, Radiation History: unk Type of Encounter: Unknown Additional signs and symptoms: hypoxia, hypoventillation, ro aspiration/pna FINDINGS: Minimal rotation to the R. Cardiomegaly. Mild interstitial edema. No pneumothorax or pleural effusion. IMPRESSION: Findings as above. Workstation ID: [id number] Dictated by: NICKI ISABEL on [place] Oct 27, 2022 11:19:14 PM EDT Transcribed by: NICKI ISABEL on [place] Oct 27, 2022 11:19:14 PM EDT Finalized by: NICKI ISABEL on [place] Oct 27, 2022 11:19:14 PM EDT [facility] Comment on above: Order Comment: Injur y/Trauma or Illness?:Illness/Other How long have you had these symptoms (acute/chronic)?:Unknown Reason for exam?:hypoxia, hypoventillation, ro aspiration/pna History of cancer?:unk Surgeries, chemotherapy, or radiation?:unk Type of Exam?:Unknown Additional signs and symptoms?:hypoxia, hypoventillation, ro aspiration/pna XR CHEST PA/APon 10-26-2022 XR CHEST PA/AP EXAMINATION: ONE XRAY VIEW OF THE CHEST 10/26/2022 3:25 pm COMPARISON: 10/20/2022. HISTORY: ORDERING SYSTEM PROVIDED HISTORY: r/o aspiration; TECHNOLOGIST PROVIDED HISTORY: Illness/Other Acuity: Acute Reason for Exam: r/o aspiration Cancer History: unk Surgery, Radiation History: unk Type of Encounter: Initial Additional signs and symptoms: unk FINDINGS: Cardiomegaly. No infiltrate or pleural effusion. No pneumothorax. IMPRESSION: Findings as above. Workstation ID: [id number] Dictated by: NICKI ISABEL on Sat Oct 26, 2022 6:57:49 PM EDT Transcribed by: NICKI ISABEL on Sat Oct 26, 2022 6:57:49 PM EDT Finalized by: NICKI ISABEL on Sat Oct 26, 2022 6:57:49 PM EDT [facility] Comment on above: Order Comment: Injur y/Trauma or Illness?:Illness/Other How long have you had these symptoms (acute/chronic)?:Acute Reason for exam?:r/o aspiration History of cancer?:unk Surgeries, chemotherapy, or radiation?:unk Type of Exam?:Initial Additional signs and symptoms?:unk CNCONon 10-22-2022 CNCON Consults (NE50MN) PARDEEP MARK ([id number]) 1965 F Date Time Provider Department 10/22/22 DIDIER MCCARTY NE50MN During your visit today, we recorded the following information about you: Chapis Jin APRN.CNP 10/22/2022 12:47 PM Signed [facility] Review of Records Patient: Pardeep Mark Address: [address] [place] [address] [place] [address] Impression: Review of records for Pardeep Mark, a 57 year old female, being referred by Self to Dr. Carol Gamez for further evaluation and treatment. Patient has previously diagnosed seizures. EEG from 2022 reported mild to moderate diffuse encephalopathy but no epileptiform activity. MRI from 2022 reported no acute findings. Patient has trialed 2 AEDs. As she has recently had 2 multi-day BEM evaluations this year, recommend visit with Dr. Gamez for consultation Summary: Onset: 20 years ago Recent Seizure Frequency: Recurred July 2022 and is not experiencing them daily Seizure Description(s) Available: Type A: Falls over, whole body tremors, making noises, eyes closed Duration: 7 - 15 minutes Current AED(s): Levetiracetam Previous AED(s): Carbamazepine PMH: cellulitis right hand, left leg amputation, stroke, obesity, HTN, chronic pain PRIOR EVALUATIONS: [facility] [address] [facility] [place] [address] Bedside EEG ([facility], 08/05/2022-08/07/2022) : EEG is consistent with the diagnosis of a a moderate diffuse encephalopathy. No epileptiform discharges or EEG seizures were seen during this recording Bedside EEG ([facility], 10/07/2022-10/09/2022) : EEG is consistent with the diagnosis of a mild to moderate diffuse encephalopathy. No epileptiform discharges or EEG seizures were seen during this recording MRI brain wo/w contrast ([facility], 08/07/2022): No acute findings or abnormal intracranial enhancement. 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 Gamez - Additional testing to be considered by epilepsy clinicians Signed: Chapis Jin APRN.PURSE SEINING HAND October 22, [address] Mccarty for review and recommendations. MD Recommendations (as discussed with Dr. Mccarty): - Please proceed with the above plan. Allergies As of Date: 10/22/2022 Noted Allergy Reaction PHENOTHIAZINES 03/31/2003 Comments: compazine - shaking PROCHLORPERAZINE 08/02/2005 PROMETHAZINE 08/02/2005 7 - Swelling REGLAN (METOCLOPRAMIDE HCL) 08/12/2005 Comments: SHAKING Date Reviewed: 10/10/2022 Reviewed by: Gerard Estevez RN - Fully Assessed Primary Visit Diagnosis:Convulsion s, unspecified convulsion type (HCC) [R56.9] Prescriptions as of 10/22/2022 - buprenorphine SL (SUBUTEX) 2 mg subl Dissolve 1 tablet under the tongue twice daily for 60 days. - pregabalin (LYRICA) 100 mg capsule Take 1 capsule by mouth three times daily for 60 days. - levETIRAcetam (KEPPRA) 750 mg tablet Take 1 tablet by mouth twice daily. - Gauze Bandage (KERLIX) 3.4 X 3.6 -yard bndg Apply 1 application to affected area three times daily. - QUEtiapine (SEROQUEL) 300 mg tablet Take 1 tablet by mouth daily at bedtime. - carvedilol (COREG) 6.25 mg tablet Take 6.25 mg by mouth twice daily with meals. - aspirin, enteric coated (ASPIRIN, ENTERIC COATED) 81 mg EC tablet Take 81 mg by mouth once daily. - Multivitamin capsule Take 1 capsule by mouth once daily. - Melatonin 5 mg cap Take 2 capsules by mouth daily at bedtime. - DULoxetine (CYMBALTA) 30 mg capsule Take 1 capsule by mouth once daily. - DULoxetine (CYMBALTA) 60 mg capsule Take 1 capsule by mouth once daily. - naloxone 4 mg/actuation nasal spray (NARCAN) Use 1 spray in one nostril as needed for overdose. May repeat every 2 to 3 min in alternating nostrils until medical assistance is available Problem List As Of Date 10/22/2022 Noted Resolved CELLULITIS OF LEG [L03.119, L02.419] 09/21/2003 PERSIST POSTOP FISTULA [T81.83XA] 11/10/2003 OPEN WOUND OF LEG NEC [S81.809A] 12/26/2003 PYOGEN ARTHRITIS NEC [M00.9] 05/31/2004 Localization-related focal epilepsy with simple* Surgical wound infection [T81.49XA] Difficulty walking [R26.2] 10/26/2009 Pain Following Surgery or Procedure [G89.18] 11/08/2009 Opioid dependence (HCC) [F11.20] 05/22/2010 Pain disorder [R52] 10/31/2010 Amputation of leg (HCC) [S88.919A] 12/28/2012 Compartment syndrome of forearm (HCC) [T79.A19A]07/16/2022 07/17/2022 Obesity, Class I, BMI 30-34.9 [E66.9] 07/16/2022 Sepsis (HCC) [A41.9] 07/24/2022 Wound infection after surgery [T81.49XA] 07/24/2022 Leukocytosis [D7 (more content not included)... Normal [facility] CNPNon 10-22-2022 CNPN Telephone (NE50MN) PARDEEP MARK ([id number]) 1965 F Date Time Provider Department 10/22/22 DIDIER MCCARTY NE50MN During your visit today, we recorded the following information about you: Ratna Felton 10/22/2022 10:25 AM Signed [facility] Initial Intake Interview October 22, 2022 10:14 AM Caller: Melissa Relationship to pt: Daughter ===== Patient name: Pardeep Mark Age: [age] year old [address]: [address] [place] [id number] (home) Insurance: Payor: AETNA / Plan: AETNA [facility] [employer] / Product Type: PPO / Referred by: Self (word of mouth) Referring to: Dr. Gamez Reason for Evaluation: further evaluation and treatment Previously evaluated at: [facility] Tel: N/A Fax: N/A ===== Age AND date of onset of seizures/spells: 20+ years ago Frequency: July 2022 episodes started again , happening daily Seizure Type A: falls over, whole-body tremors, making noises, eyes closed Duration: 7-15 minutes Seizure Type B: N/A Duration: N/A Recent injuries (within last 6 months)? Yes , fall in the garage in June Recent surgeries (within the last 6 weeks)? Yes , removal of sutures Seizure medications Current medications: - Keppra Past medications: - Tegretol Developmental disabilities? No Previous neurosurgery? No Type AND Date: N/A Implants (VNS/NeuroPace/shunt /orthodontic hardware/pacemaker)? No Type AND Date: N/A Would patient require anaesthesia or sedation? No Additional pertinent medical information: No other information ===== Test Yes or No Date Facility EEG Yes 2022 [facility] Video EEG Yes 2022 [facility] MRI brain Yes [address] [facility] [address] brain Yes 2022 [facility] fMRI brain No PET No Ictal SPECT No TOMASA No [place] No Neuropsych testing No Visual field No Invasive video EEG (brain mapping) No If invasive video-EEG monitoring was performed, request: -- brain maps including any power point presentations -- disks of the study If resection was performed, request: -- operative notes -- surgical pathology reports If patient has had any presurgical or surgical workup, has imaging been requested? No Signed: Ratna Felton 10/22/2022 10:25 AM Signed [facility] imaging/records received: October 22, 2022 -EEG Reports -MRI Brain Report -CT Head Report -Consult Notes [facility] Chart Allergies As of Date: 10/22/2022 Noted Allergy Reaction PHENOTHIAZINES 03/31/2003 Comments: compazine - shaking PROCHLORPERAZINE 08/02/2005 PROMETHAZINE 08/02/2005 7 - Swelling REGLAN (METOCLOPRAMIDE HCL) 08/12/2005 Comments: SHAKING Date Reviewed: 10/10/2022 Reviewed by: Gerard Estevez RN - Fully Assessed Reason for Visit: Future Appointment [256] Cmt: [place], [place], Azzam Prescriptions as of 10/22/2022 - buprenorphine SL (SUBUTEX) 2 mg subl Dissolve 1 tablet under the tongue twice daily for 60 days. - pregabalin (LYRICA) 100 mg capsule Take 1 capsule by mouth three times daily for 60 days. - levETIRAcetam (KEPPRA) 750 mg tablet Take 1 tablet by mouth twice daily. - Gauze Bandage (KERLIX) 3.4 X 3.6 -yard bndg Apply 1 application to affected area three times daily. - QUEtiapine (SEROQUEL) 300 mg tablet Take 1 tablet by mouth daily at bedtime. - carvedilol (COREG) 6.25 mg tablet Take 6.25 mg by mouth twice daily with meals. - aspirin, enteric coated (ASPIRIN, ENTERIC COATED) 81 mg EC tablet Take 81 mg by mouth once daily. - Multivitamin capsule Take 1 capsule by mouth once daily. - Melatonin 5 mg cap Take 2 capsules by mouth daily at bedtime. - DULoxetine (CYMBALTA) 30 mg capsule Take 1 capsule by mouth once daily. - DULoxetine (CYMBALTA) 60 mg capsule Take 1 capsule by mouth once daily. - naloxone 4 mg/actuation nasal spray (NARCAN) Use 1 spray in one nostril as needed for overdose. May repeat every 2 to 3 min in alternating nostrils until medical assistance is available Problem List As Of Date 10/22/2022 Noted Resolved CELLULITIS OF LEG [L03.119, L02.419] 09/21/2003 PERSIST POSTOP FISTULA [T81.83XA] 11/10/2003 OPEN WOUND OF LEG NEC [S81.809A] 12/26/2003 PYOGEN ARTHRITIS NEC [M00.9] 05/31/2004 Localization-related focal epilepsy with simple* Surgical wound infection [T81.49XA] Difficulty walking [R26.2] 10/26/2009 Pain Following Surgery or Procedure [G89.18] 11/08/2009 Opioid dependence (HCC) [F11.20] 05/22/2010 Pain disorder [R52] 10/31/2010 Amputation of leg (HCC) [S88.919A] 12/28/2012 Compartment syndrome of forearm (HCC) [T79.A19A]07/16/2022 07/17/2022 Obesity, Class I, BMI 30-34.9 [E66.9] 07/16/2022 Sepsis (HCC) [A41.9] 07/24/2022 Wound infection after surgery [T81.49XA] 07/24/2022 Leukocytosis [D72.829] 07/24/2022 Prolonged Q-T interval on ECG [R94.31] more content not included)... Normal [facility] COVID-19/INFLUENZA A,B MOLEC ARo 10-20-2022 SARS-CoV-2 (COVID-19) Ab IA Ql SARS-COV-2 (NORMA): Not Detected INFLUENZA A (NORMA): Not Detected INFLUENZA B (NORMA): Not Detected Normal Not Detected [facility] Comment on above: Order Comment: This test was performed under the FDA's Emergency Use Authorization (EUA). Testing was performed using the Zohaib Howie SARS-CoV-2 RT-PCR AND Influenza A/B Nucleic Acid Test on the Howie Norma System. This test has not been approved for use in asymptomatic patients and its performance in this patient population has not been evaluated. Negative results do not rule out the presence of SARS-CoV-2, influenza A, and/or influenza B. Fact sheets for the EUA can be found at the following links: For Healthcare Providers: https://www.fda.gov/media/164495/download For Patients: https://www.fda.gov/media/830965/download Performed By: #### L [id number] #### [facility] [address] [place] [address] Jessica Dodson M.D. [id number] XR CHEST PA/APon 10-20-2022 XR CHEST PA/AP EXAMINATION: XR CHEST PA/AP 10/20/2022 5:55 pm HISTORY: ORDERING SYSTEM PROVIDED HISTORY: PNA, TECHNOLOGIST PROVIDED HISTORY: Illness/Other Reason for exam: PNA, seizure Cancer History: unk Surgery, RadiationHistory: unk Encounter Type: Initial Additional signs and symptoms: unk ORDERING SYSTEM PROVIDED DIAGNOSIS CODES: COMPARISON: 07/09/2009 FINDINGS: Cardiomediastinal silhouette is normal. Lungs are clear. No significant pleural or osseous abnormalities are identified. IMPRESSION: No acute process identified. [place]/[facility] Workstation ID: [id number] Dictated by: ROGER CHUA on FriOct 20, 2022 6:05:35 PM EDT Transcribed by: MARLA WILLIS on FriOct 20, 2022 6:06:18 PM EDT Finalized by: ROGER CHUA on FriOct 22, 2022 8:09:01 AM EDT Normal [facility] Comment on above: Order Comment: Injur y/Trauma or Illness?:Illness/Other How long have you had these symptoms (acute/chronic)?:Acute Reason for exam?:PNA, seizure History of cancer?:unk Surgeries, chemotherapy, or radiation?:unk Type of Exam?:Initial Additional signs and symptoms?:unk CNPNon 10-18-2022 CNPN Telephone (PODCCP) PARDEEP MARK ([id number]) 1965 F Date Time Provider Department 10/18/22 JOSE DE JESUS PINZON PODCCP During your visit today, we recorded the following information about you: Allergies As of Date: 10/18/2022 Noted Allergy Reaction PHENOTHIAZINES 03/31/2003 Comments: compazine - shaking PROCHLORPERAZINE 08/02/2005 PROMETHAZINE 08/02/2005 7 - Swelling REGLAN (METOCLOPRAMIDE HCL) 08/12/2005 Comments: SHAKING Date Reviewed: 10/10/2022 Reviewed by: Gerard Estevez RN - Fully Assessed Reason for Visit: Follow Up Phone Call [[phone]] Cmt: Post Discharge F/U - attempt made. No answer. Prescriptions as of 10/18/2022 - buprenorphine SL (SUBUTEX) 2 mg subl Dissolve 1 tablet under the tongue twice daily for 60 days. - pregabalin (LYRICA) 100 mg capsule Take 1 capsule by mouth three times daily for 60 days. - levETIRAcetam (KEPPRA) 750 mg tablet Take 1 tablet by mouth twice daily. - Gauze Bandage (KERLIX) 3.4 X 3.6 -yard bndg Apply 1 application to affected area three times daily. - QUEtiapine (SEROQUEL) 300 mg tablet Take 1 tablet by mouth daily at bedtime. - carvedilol (COREG) 6.25 mg tablet Take 6.25 mg by mouth twice daily with meals. - aspirin, enteric coated (ASPIRIN, ENTERIC COATED) 81 mg EC tablet Take 81 mg by mouth once daily. - Multivitamin capsule Take 1 capsule by mouth once daily. - Melatonin 5 mg cap Take 2 capsules by mouth daily at bedtime. - DULoxetine (CYMBALTA) 30 mg capsule Take 1 capsule by mouth once daily. - DULoxetine (CYMBALTA) 60 mg capsule Take 1 capsule by mouth once daily. - naloxone 4 mg/actuation nasal spray (NARCAN) Use 1 spray in one nostril as needed for overdose. May repeat every 2 to 3 min in alternating nostrils until medical assistance is available Problem List As Of Date 10/18/2022 Noted Resolved CELLULITIS OF LEG [L03.119, L02.419] 09/21/2003 PERSIST POSTOP FISTULA [T81.83XA] 11/10/2003 OPEN WOUND OF LEG NEC [S81.809A] 12/26/2003 PYOGEN ARTHRITIS NEC [M00.9] 05/31/2004 Localization-related focal epilepsy with simple* Surgical wound infection [T81.49XA] Difficulty walking [R26.2] 10/26/2009 Pain Following Surgery or Procedure [G89.18] 11/08/2009 Opioid dependence (HCC) [F11.20] 05/22/2010 Pain disorder [R52] 10/31/2010 Amputation of leg (HCC) [S88.919A] 12/28/2012 Compartment syndrome of forearm (HCC) [T79.A19A]07/16/2022 07/17/2022 Obesity, Class I, BMI 30-34.9 [E66.9] 07/16/2022 Sepsis (HCC) [A41.9] 07/24/2022 Wound infection after surgery [T81.49XA] 07/24/2022 Leukocytosis [D72.829] 07/24/2022 Prolonged Q-T interval on ECG [R94.31] 07/24/2022 Postoperative wound dehiscence, initial encount*07/24/2022 Swelling of right hand [M79.89] 08/13/2022 Seizure disorder (HCC) [G40.909] 08/14/2022 Wound infection [T14.8XXA, L08.9] 08/14/2022 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]08/15/2022 History of ischemic stroke [Z86.73] 08/15/2022 Right arm pain [M79.601] 10/05/2022 Compartment syndrome of forearm (HCC) [T79.A19A]10/06/2022 Obesity, Class II, BMI 35-39.9 [E66.9] 10/11/2022 Encounter Status:Closed by JOSE DE JESUS PINZON on 10/18/22 Normal [facility] CASE MANAGEMon 10-14-2022 CASE MANAGEM Normal [facility] CNDSon 10-14-2022 CNDS Normal [facility] CONSULTon 10-14-2022 CONSULT Normal [facility] CONSULT PROGon 10-14-2022 CONSULT PROG Normal [facility] NURSING PROGon 10-14-2022 NURSING PROG Normal [facility] THERAPY NTon 10-14-2022 THERAPY NT Normal [facility] levETIRAcetam SerPl-mCncon 0 10-14-2022 levETIRAcetam [Mass/Vol] 30.4 ug/mL Normal 12.0-46.0 [facility] Comment on above: Order Comment: Speci men Type: BLOOD SPECIMENOrdering Facility: [facility] Address: [place] [address] Result Comment: This test is not suitable for patients receiving treatment with the drug brivaracetam (Briviact). The drug causes an interference that may lead to falsely elevated levetiracetam results.Reference ranges and high/low indicator flags are provided as general guidelines only. The treating physician must determine appropriate target levels/dosing based on the specific clinical situation.This test was developed and its performance characteristics determined by [facility] [place] ([facility]). It has not been cleared or approved by the FDA. -[facility] is regulated under CLIA as qualified to perform high-complexity testing. This test is used for clinical purposes. It should not be regarded as investigational or for research. Performed By: #### 3 0471-7 ####[facility] LABCLIA [id number] [facility] [place] [address] [place] NURSING PROGon 10-13-2022 NURSING PROG Normal [facility] Basic metabolic 2000 panelon 10-12-2022 Anion gap [Moles/Vol] 9 mmol/L Normal 9-18 [facility] Comment on above: Order Comment: Speci men Type: BLOOD SPECIMENOrdering Facility: [facility] Address: [address] [address] Performed By: #### 2 4320-08, ####[facility]ORYCLIA [id number] [place] [address] [place] Calcium [Mass/Vol] 8.1 mg/dL Low 8.5-10.2 [facility] Comment on above: Order Comment: Speci men Type: BLOOD SPECIMENOrdering Facility: [facility] Address: [address] [address] Performed By: #### 2 4320-08, ####[facility]ATORYCLIA [id number] [place] [address] [place] Chloride [Moles/Vol] 107 mmol/L High 97-105 [facility] Comment on above: Order Comment: Speci men Type: BLOOD SPECIMENOrdering Facility: [facility] Address: [address] [address] Performed By: #### 2 43207-15, ####[facility]ATORYCLIA [id number] [place] [address] [place] CO2 [Moles/Vol] 23 mmol/L Normal 22-30 [facility] Comment on above: Order Comment: Speci men Type: BLOOD SPECIMENOrdering Facility: [facility] Address: [address] [place] [address] Performed By: #### 2 4321-2, ####[facility]ORYCLIA [id number] [address] [place] Creatinine [Mass/Vol] 0.63 mg/dL Normal 0.58-0.96 [facility] Comment on above: Order Comment: Speci men Type: BLOOD SPECIMENOrdering Facility: [facility] Address: [address] [place] [address] Performed By: #### 2 4321-2, ####[facility] SERVICESCLIA [id number] [address] ESTIMATED GLOMERULAR FILTRATION RATE 103 mL/min/1.73m??? Normal >=60 [facility] Comment on above: Order Comment: Speci men Type: BLOOD SPECIMENOrdering Facility: [facility] Address: [address] [place] [address] Result Comment: Manasa mated Glomerular Filtration Rate (eGFR) is calculated using the 2020 CKD-EPI creatinine equation. This equation utilizes serum creatinine, sex, and age as parameters. The creatinine assay has traceable calibration to isotope dilution-mass spectrometry. Refer to KDIGO guidelines for clinical interpretation. In patients with unstable renal function, e.g. those with acute kidney injury, the eGFR may not accurately reflect actual GFR. Performed By: #### 2 4321-2, ####[facility]ORYCLIA [id number] [address] [id number] [place] Glucose [Mass/Vol] 251 mg/dL High 74-99 [facility] Comment on above: Order Comment: Speci men Type: BLOOD SPECIMENOrdering Facility: [facility] Address: [address] [place] [address] Result Comment: The [place] Diabetes Association (ADA) provides guidance for cutoff values for fasting glucose and random glucose. The ADA defines fasting as no caloric intake for at least 8 hours. Fasting plasma glucose results between 100 to 125 mg/dL indicate increased risk for diabetes (prediabetes).Fasting plasma glucose results greater than or equal to 126 mg/dL meet the criteria for diagnosis of diabetes. In the absence of unequivocal hyperglycemia, results should be confirmed by repeat testing. In a patient with classic symptoms of hyperglycemia or hyperglycemic crisis, random plasma glucose results greater than or equal to 200 mg/dL meet the criteria for diagnosis of diabetes.Reference: Standards of Medical Care in Diabetes 2016, [place] [employer] Association. Diabetes Care. 2016.39(Suppl 1). Performed By: #### 2 4320-08, ####[facility]ATORYCLIA [id number] [place] [address] [place] Potassium [Moles/Vol] 3.6 mmol/L Low 3.7-5.1 [facility] Comment on above: Order Comment: Speci men Type: BLOOD SPECIMENOrdering Facility: [facility] Address: [address] [address] Performed By: #### 2 ####[facility]ATORYCLIA [id number] [place] [address] [place] Sodium [Moles/Vol] 139 mmol/L Normal 136-144 [facility] Comment on above: Order Comment: Speci men Type: BLOOD SPECIMENOrdering Facility: [facility] Address: [address] [address] Performed By: #### 2 4320-08, ####[facility]ATORYCLIA [id number] [place] [address] [place] Urea nitrogen [Mass/Vol] 10 mg/dL Normal 7-21 [facility] Comment on above: Order Comment: Speci men Type: BLOOD SPECIMENOrdering Facility: [facility] Address: [address] [address] Performed By: #### 2 4320-08, ####[facility]ATORYCLIA [id number] [address] CBC panel Auto (Bld)on 10-12 Erythrocyte distribution width (RBC) [Ratio] 14.1 % Normal 11.5-15.0 [facility] Comment on above: Order Comment: Speci men Type: BLOOD SPECIMENOrdering Facility: [facility] Address: [address] [place] [address] Performed By: #### 5 8410-2 ####[facility]ATORYCLIA [id number] [address] Hematocrit (Bld) [Volume fraction] 34.5 % Low 36.0-46.0 [facility] Comment on above: Order Comment: Speci men Type: BLOOD SPECIMENOrdering Facility: [facility] Address: [address] [place] [address] Performed By: #### 5 8410-2 ####[facility]ATORYCLIA [id number] [address] Hemoglobin (Bld) [Mass/Vol] 10.7 g/dL Low 11.5-15.5 [facility] Comment on above: Order Comment: Speci men Type: BLOOD SPECIMENOrdering Facility: [facility] Address: [address] [place] [address] Performed By: #### 5 8410-2 ####[facility]ATORYCLIA [id number] [address] MCH (RBC) [Entitic mass] 28.3 pg Normal 26.0-34.0 [facility] Comment on above: Order Comment: Speci men Type: BLOOD SPECIMENOrdering Facility: [facility] Address: [address] [place] [address] Performed By: #### 5 8410-2 ####[facility]ATORYCLIA [id number] [address] [place] MCHC (RBC) [Mass/Vol] 31.0 g/dL Normal 30.5-36.0 [facility] Comment on above: Order Comment: Speci men Type: BLOOD SPECIMENOrdering Facility: [facility] Address: [address] [place] [address] Performed By: #### 5 8410-2 ####[facility]ATORYCLIA [id number] [address] MCV (RBC) [Entitic vol] 91.3 fL Normal 80.0-100.0 [facility] Comment on above: Order Comment: Speci men Type: BLOOD SPECIMENOrdering Facility: [facility] Address: [address] [address] Performed By: #### 5 8410-2 ####[facility]ORATORYCLIA [id number] [address] OF [facility] Nucleated RBC (Bld) [#/Vol] 10*3/uL Normal <0.01 [facility] Comment on above: Order Comment: Speci men Type: BLOOD SPECIMENOrdering Facility: [facility] Address: [address] [place] [address] Performed By: #### 5 8410-2 ####[facility]ATORYCLIA [id number] [address] Platelet mean volume (Bld) [Entitic vol] 11.2 fL Normal 9.0-12.7 [facility] Comment on above: Order Comment: Speci men Type: BLOOD SPECIMENOrdering Facility: [facility] Address: [address] [place] [address] Performed By: #### 5 8410-2 ####[facility]ATORYCLIA [id number] [address] Platelets (Bld) [#/Vol] 210 10*3/uL Normal 150-400 [facility] Comment on above: Order Comment: Speci men Type: BLOOD SPECIMENOrdering Facility: [facility] Address: [address] [place] [address] Performed By: #### 5 8410-2 ####[facility]ORATORYCLIA [id number] [place] [address] [place] RBC (Bld) [#/Vol] 3.78 10*6/uL Low 3.90-5.20 [facility] Comment on above: Order Comment: Speci men Type: BLOOD SPECIMENOrdering Facility: [facility] Address: [address] [place] [address] Performed By: #### 5 8410-2 ####[facility]ATORYCLIA [id number] [address] [place] WBC (Bld) [#/Vol] 10.94 10*3/uL Normal 3.70-11.00 [facility] Comment on above: Order Comment: Speci men Type: BLOOD SPECIMENOrdering Facility: [facility] Address: [address] [place] [address] Performed By: #### 5 8410-2 ####[facility]ATORYCLIA [id number] [address] OF [facility] CK SerPl-cCncon 10-12-2022 CK [Catalytic activity/Vol] 61 U/L Normal 42-196 [facility] Comment on above: Order Comment: Speci men Type: BLOOD SPECIMENOrdering Facility: [facility] Address: [address] [place] [address] Performed By: #### 2 157-6 ####[facility]ORATORYCLIA [id number] [address] [place] CONSULT PROGon 10-12-2022 CONSULT PROG Normal [facility] CONSULT PROG Normal [facility] Gas and Carbon monoxide pane l (BldV)on 10-12-2022 Base excess Calc (BldV) [Moles/Vol] 0 mmol/L Normal 0-2 [facility] Comment on above: Order Comment: Speci men Type: VENOUS BLOOD SPECIMENOrdering Facility: [facility] Address: [address] [place] [address] Performed By: #### 2 4344-4 ####[facility]ATORYCLIA [id number] [address] Body temperature 99.32 [degF] Normal [facility] Comment on above: Order Comment: Speci men Type: VENOUS BLOOD SPECIMENOrdering Facility: [facility] Address: [address] [place] [address] Performed By: #### 2 4344-4 ####[facility]ATORYCLIA [id number] [address] OF [facility] Calcium.ionized (BldV) [Mass/Vol] 1.16 mmol/L Normal 1.08-1.30 [facility] Comment on above: Order Comment: Speci men Type: VENOUS BLOOD SPECIMENOrdering Facility: [facility] Address: [address] [place] [address] Performed By: #### 2 4344-4 ####[facility]ATORYCLIA [id number] [address] Calcium.ionized adjusted to pH 7.4 (BldA) [Moles/Vol] 1.10 mmol/L Normal 1.08-1.30 [facility] Comment on above: Order Comment: Speci men Type: VENOUS BLOOD SPECIMENOrdering Facility: [facility] Address: [address] [place] [address] Performed By: #### 2 4344-4 ####[facility]ORATORYCLIA [id number] [address] OF [facility] Carboxyhemoglobin (BldV) [Mass fraction] 2.0 % Normal 0.0-2.0 [facility] Comment on above: Order Comment: Speci men Type: VENOUS BLOOD SPECIMENOrdering Facility: [facility] Address: [address] [place] [address] Result Comment: Carb oxyhemoglobin Reference Range for Smokers: 2.0-8.0% Performed By: #### 2 4344-4 ####[facility]ATORYCLIA [id number] [address] OF [facility] Chloride [Moles/Vol] 110 mmol/L High 102-109 [facility] Comment on above: Order Comment: Speci men Type: VENOUS BLOOD SPECIMENOrdering Facility: [facility] Address: [address] [address] Performed By: #### 2 4344-4 ####[facility] [facility]ORATORYCLIA [id number] [address] [place] CO2 (BldV) [Partial pressure] 56 mm[Hg] High 42-55 [facility] Comment on above: Order Comment: Speci men Type: VENOUS BLOOD SPECIMENOrdering Facility: [facility] Address: [address] [address] Performed By: #### 2 4344-4 ####[facility] LABORATORYCLIA [id number] [address] [place] CO2 [Moles/Vol] 25 mmol/L Normal 25-29 [facility] Comment on above: Order Comment: Speci men Type: VENOUS BLOOD SPECIMENOrdering Facility: [facility] Address: [address] [address] Performed By: #### 2 4344-4 ####[facility]ORATORYCLIA [id number] [address] [place] CO2 adjusted to patient's actual temperature (BldV) [Partial pressure] 57 mmHg High 42-55 [facility] Comment on above: Order Comment: Speci men Type: VENOUS BLOOD SPECIMENOrdering Facility: [facility] Address: [address] [place] [address] Performed By: #### 2 4344-4 ####[facility]ORYCLIA [id number] [address] [place] Glucose [Mass/Vol] 228 mg/dL High 60-105 [facility] Comment on above: Order Comment: Speci men Type: VENOUS BLOOD SPECIMENOrdering Facility: [facility] Address: [address] [address] Performed By: #### 2 4344-4 ####[facility] LABORATORYCLIA [id number] [place] [address] [place] HCO3 (Bld) [Moles/Vol] 27 mmol/L Normal 24-28 [facility] Comment on above: Order Comment: Speci men Type: VENOUS BLOOD SPECIMENOrdering Facility: [facility] Address: [address] [address] Performed By: #### 2 4344-4 ####[facility]ATORYCLIA [id number] [address] [place] Hematocrit (Bld) [Volume fraction] 34.6 % Low 36.0-46.0 [facility] Comment on above: Order Comment: Speci men Type: VENOUS BLOOD SPECIMENOrdering Facility: [facility] Address: [address] [address] Performed By: #### 2 4344-4 ####[facility]ATORYCLIA [id number] [address] [place] Hemoglobin (Bld) [Mass/Vol] 11.2 g/dL Low 11.5-15.5 [facility] Comment on above: Order Comment: Speci men Type: VENOUS BLOOD SPECIMENOrdering Facility: [facility] Address: [address] [address] Performed By: #### 2 4344-4 ####[facility]ATORYCLIA [id number] [address] [place] Lactate [Moles/Vol] 1.6 mmol/L Normal 0.5-2.2 [facility] Comment on above: Order Comment: Speci men Type: VENOUS BLOOD SPECIMENOrdering Facility: [facility] Address: [address] [address] Performed By: #### 2 4344-4 ####[facility]ATORYCLIA [id number] [address] [place] Methemoglobin (Bld) [Mass fraction] 1.1 % Normal 0.0-1.5 [facility] Comment on above: Order Comment: Speci men Type: VENOUS BLOOD SPECIMENOrdering Facility: [facility] Address: [address] [address] Performed By: #### 2 4344-4 ####[facility]ORATORYCLIA [id number] [address] [place] O2 THERAPY RA=Room Air Normal [facility] Comment on above: Order Comment: Speci men Type: VENOUS BLOOD SPECIMENOrdering Facility: [facility] Address: [address] [address] Performed By: #### 2 4344-4 ####[facility]ATORYCLIA [id number] [place] [address] [place] Oxygen (BldV) [Partial pressure] 138 mm[Hg] High 35-45 [facility] Comment on above: Order Comment: Speci men Type: VENOUS BLOOD SPECIMENOrdering Facility: [facility] Address: [address] [address] Performed By: #### 2 4344-4 ####[facility]ATORYCLIA [id number] [address] [place] Oxygen adjusted to patient's actual temperature (BldV) [Partial pressure] 140 mmHg High 35-45 [facility] Comment on above: Order Comment: Speci men Type: VENOUS BLOOD SPECIMENOrdering Facility: [facility] Address: [address] [address] Performed By: #### 2 4344-4 ####[facility]ATORYCLIA [id number] [address] [place] Oxygen saturation in Venous blood 99 % High 60-85 [facility] Comment on above: Order Comment: Speci men Type: VENOUS BLOOD SPECIMENOrdering Facility: [facility] Address: [address] [address] Performed By: #### 2 4344-4 ####[facility] LABORATORYCLIA [id number] [address] [place] Oxyhemoglobin (BldV) [Mass fraction] 96 % High 60-85 [facility] Comment on above: Order Comment: Speci men Type: VENOUS BLOOD SPECIMENOrdering Facility: [facility] Address: [address] [address] Performed By: #### 2 4344-4 ####[facility]ORATORYCLIA [id number] [place] [address] [place] pH (BldV) 7.31 [pH] Low 7.32-7.42 [facility] Comment on above: Order Comment: Speci men Type: VENOUS BLOOD SPECIMENOrdering Facility: [facility] Address: [address] [place] [address] Performed By: #### 2 4344-4 ####[facility] LABORATORYCLIA [id number] [address] [place] pH adjusted to patient's actual temperature (BldV) 7.30 Low 7.32-7.42 [facility] Comment on above: Order Comment: Speci men Type: VENOUS BLOOD SPECIMENOrdering Facility: [facility] Address: [address] [place] [address] Performed By: #### 2 4344-4 ####[facility]ORATORYCLIA [id number] [address] [place] Potassium [Moles/Vol] 3.3 mmol/L Low 3.5-5.0 [facility] Comment on above: Order Comment: Speci men Type: VENOUS BLOOD SPECIMENOrdering Facility: [facility] Address: [address] [place] [address] Performed By: #### 2 4344-4 ####[facility]ORATORYCLIA [id number] [address] [place] Sodium [Moles/Vol] 141 mmol/L Normal 136-144 [facility] Comment on above: Order Comment: Speci men Type: VENOUS BLOOD SPECIMENOrdering Facility: [facility] Address: [address] [place] [address] Performed By: #### 2 4344-4 ####[facility] LABORATORYCLIA [id number] [place] [address] [place] Magnesium SerPl-mCncon 10-12 Magnesium [Mass/Vol] 1.7 mg/dL Normal 1.7-2.3 [facility] Comment on above: Order Comment: Speci men Type: BLOOD SPECIMENOrdering Facility: [facility] Address: [address] [address] Performed By: #### 2 4321-2, 64818-1 ####[facility]ORATORYCLIA [id number] [place], [place] [address] [place] [address] [place] NURSING PROGon 10-12-2022 NURSING PROG Normal [facility] Vancomycin random [Mass/Vol] on 10-12-2022 Vancomycin [Mass/Vol] 16.7 ug/mL Normal 10.0-20.0 [facility] Comment on above: Order Comment: Speci men Type: BLOOD SPECIMENOrdering Facility: [facility] Address: [address] [address] Result Comment: Refe rence ranges and high/low indicator flags are provided as general guidelines only. The treating physician must determine appropriate target levels/dosing based on the specific clinical situation. Performed By: #### 4 091-5 ####[facility]ORATORYCLIA [id number] [place], [place] [id number] [place] [address] [place] ANES POSTPROC EVALon 023 ANES POSTPROC EVAL Normal [facility] CASE MANAGEMon 10-11-2022 CASE MANAGEM Normal [facility] CONSULT PROGon 10-11-2022 CONSULT PROG Normal [facility] NURSING PROGon 10-11-2022 NURSING PROG Normal [facility] NURSING PROG Normal [facility] NUTRITIONon 10-11-2022 NUTRITION Normal [facility] THERAPY NTon 10-11-2022 THERAPY NT Normal [facility] THERAPY NT Normal [facility] ANES PRE-OPon 10-10-2022 ANES PRE-OP Normal [facility] Basic metabolic 2000 panelon 10-10-2022 Anion gap [Moles/Vol] 9 mmol/L Normal 9-18 [facility] Comment on above: Order Comment: Speci men Type: BLOOD SPECIMENOrdering Facility: [facility] Address: [address] [id number] Performed By: #### 2 4321-2 ####[facility]ORATORYCLIA [id number] [place] [address] [place] Calcium [Mass/Vol] 9.1 mg/dL Normal 8.5-10.2 [facility] Comment on above: Order Comment: Speci men Type: BLOOD SPECIMENOrdering Facility: [facility] Address: [address] [place] [address] Performed By: #### 2 4321-2 ####[facility]ORYCLIA [id number] [place] [address] [place] Chloride [Moles/Vol] 104 mmol/L Normal 97-105 [facility] Comment on above: Order Comment: Speci men Type: BLOOD SPECIMENOrdering Facility: [facility] Address: [address] [place] [address] Performed By: #### 2 4321-2 ####[facility]ORATORYCLIA [id number] [address] [place] CO2 [Moles/Vol] 27 mmol/L Normal 22-30 [facility] Comment on above: Order Comment: Speci men Type: BLOOD SPECIMENOrdering Facility: [facility] Address: [address] [place] [address] Performed By: #### 2 4321-2 ####[facility]ORATORYCLIA [id number] [address] [place] Creatinine [Mass/Vol] 0.68 mg/dL Normal 0.58-0.96 [facility] Comment on above: Order Comment: Speci men Type: BLOOD SPECIMENOrdering Facility: [facility] Address: [address] [place] [address] Performed By: #### 2 4321-2 ####[facility]ORATORYCLIA [id number] [address] ESTIMATED GLOMERULAR FILTRATION RATE 101 mL/min/1.73m??? Normal >=60 [facility] Comment on above: Order Comment: Speci men Type: BLOOD SPECIMENOrdering Facility: [facility] Address: [address] [phone] Result Comment: Manasa mated Glomerular Filtration Rate (eGFR) is calculated using the 2020 CKD-EPI creatinine equation. This equation utilizes serum creatinine, sex, and age as parameters. The creatinine assay has traceable calibration to isotope dilution-mass spectrometry. Refer to KDIGO guidelines for clinical interpretation. In patients with unstable renal function, e.g. those with acute kidney injury, the eGFR may not accurately reflect actual GFR. Performed By: #### 2 4321-2 ####[facility]ORATORYCLIA [id number] [place] [address] [place] Glucose [Mass/Vol] 182 mg/dL High 74-99 [facility] Comment on above: Order Comment: Tawanda mosley Type: BLOOD SPECIMENOrdering Facility: [facility] Address: [address] [address] Result Comment: The [place] [employer] (ADA) provides guidance for cutoff values for fasting glucose and random glucose. The ADA defines fasting as no caloric intake for at least 8 hours. Fasting plasma glucose results between 100 to 125 mg/dL indicate increased risk for diabetes (prediabetes).Fasting plasma glucose results greater than or equal to 126 mg/dL meet the criteria for diagnosis of diabetes. In the absence of unequivocal hyperglycemia, results should be confirmed by repeat testing. In a patient with classic symptoms of hyperglycemia or hyperglycemic crisis, random plasma glucose results greater than or equal to 200 mg/dL meet the criteria for diagnosis of diabetes.Reference: Standards of Medical Care in Diabetes 2016, [place] [employer]. Diabetes Care. 2016.39(Suppl 1). Performed By: #### 2 4321-2 ####[facility]ORATORYCLIA [id number] [place] [address] [place] Potassium [Moles/Vol] 3.9 mmol/L Normal 3.7-5.1 [facility] Comment on above: Order Comment: Tawanda mosley Type: BLOOD SPECIMENOrdering Facility: [facility] Address: [address] [address] Performed By: #### 2 4321-2 ####[facility]ORATORYCLIA [id number] [place] [address] [place] Sodium [Moles/Vol] 140 mmol/L Normal 136-144 [facility] Comment on above: Order Comment: Speci men Type: BLOOD SPECIMENOrdering Facility: [facility] Address: [address] [address] Performed By: #### 2 4321-2 ####[facility]ORATORYCLIA [id number] [address] [place] Urea nitrogen [Mass/Vol] 11 mg/dL Normal 7-21 [facility] Comment on above: Order Comment: Speci men Type: BLOOD SPECIMENOrdering Facility: [facility] Address: [address] [address] Performed By: #### 2 4321-2 ####[facility]ORATORYCLIA [id number] [address] STATES OF [facility] CBC panel Auto (Bld)on 10-10 Erythrocyte distribution width (RBC) [Ratio] 13.5 % Normal 11.5-15.0 [facility] Comment on above: Order Comment: Speci men Type: BLOOD SPECIMENOrdering Facility: [facility] Address: [address] [address] Performed By: #### 5 8410-2 ####[facility]ORATORYCLIA [id number] [address] [place] Hematocrit (Bld) [Volume fraction] 36.6 % Normal 36.0-46.0 [facility] Comment on above: Order Comment: Speci men Type: BLOOD SPECIMENOrdering Facility: [facility] Address: [address] [address] Performed By: #### 5 8410-2 ####[facility]ATORYCLIA [id number] [address] [place] Hemoglobin (Bld) [Mass/Vol] 11.4 g/dL Low 11.5-15.5 [facility] Comment on above: Order Comment: Speci men Type: BLOOD SPECIMENOrdering Facility: [facility] Address: [address] [address] Performed By: #### 5 8410-2 ####[facility]ORATORYCLIA [id number] [address] MCH (RBC) [Entitic mass] 27.8 pg Normal 26.0-34.0 [facility] Comment on above: Order Comment: Speci men Type: BLOOD SPECIMENOrdering Facility: [facility] Address: [address] [place] [address] Performed By: #### 5 8410-2 ####[facility]ORATORYCLIA [id number] [address] MCHC (RBC) [Mass/Vol] 31.1 g/dL Normal 30.5-36.0 [facility] Comment on above: Order Comment: Speci men Type: BLOOD SPECIMENOrdering Facility: [facility] Address: [address] [place] [address] Performed By: #### 5 8410-2 ####[facility] SERVICESCLIA [id number] [address] MCV (RBC) [Entitic vol] 89.3 fL Normal 80.0-100.0 [facility] Comment on above: Order Comment: Speci men Type: BLOOD SPECIMENOrdering Facility: [facility] Address: [address] [place] [address] Performed By: #### 5 8410-2 ####[facility]ORATORYCLIA [id number] [address] Nucleated RBC (Bld) [#/Vol] 10*3/uL Normal <0.01 [facility] Comment on above: Order Comment: Speci men Type: BLOOD SPECIMENOrdering Facility: [facility] Address: [address] [place] [address] Performed By: #### 5 8410-2 ####[facility]ATORYCLIA [id number] [address] Platelet mean volume (Bld) [Entitic vol] 10.8 fL Normal 9.0-12.7 [facility] Comment on above: Order Comment: Speci men Type: BLOOD SPECIMENOrdering Facility: [facility] Address: [address] [place] [address] Performed By: #### 5 8410-2 ####[facility]ORATORYCLIA [id number] [address] STATES OF [facility] Platelets (Bld) [#/Vol] 224 10*3/uL Normal 150-400 [facility] Comment on above: Order Comment: Speci men Type: BLOOD SPECIMENOrdering Facility: [facility] Address: [address] [place] [address] Performed By: #### 5 8410-2 ####[facility]ATORYCLIA [id number] [address] [place] RBC (Bld) [#/Vol] 4.10 10*6/uL Normal 3.90-5.20 [facility] Comment on above: Order Comment: Speci men Type: BLOOD SPECIMENOrdering Facility: [facility] Address: [address] [place] [address] Performed By: #### 5 8410-2 ####[facility]ORATORYCLIA [id number] [address] OF [facility] WBC (Bld) [#/Vol] 9.72 10*3/uL Normal 3.70-11.00 [facility] Comment on above: Order Comment: Speci men Type: BLOOD SPECIMENOrdering Facility: [facility] Address: [address] [place] [address] Performed By: #### 5 8410-2 ####[facility]ORATORYCLIA [id number] [address] OF [facility] OPERATIVE NOon 10-10-2022 OPERATIVE NO Normal [facility] THERAPY NTon 10-10-2022 THERAPY NT Normal [facility] ALLIED HEALTHon 10-09-2022 ALLIED HEALTH Normal [facility] ALLIED HEALTH Normal [facility] Basic metabolic 2000 panelon 10-09-2022 Anion gap [Moles/Vol] 11 mmol/L Normal 9-18 [facility] Comment on above: Order Comment: Speci men Type: BLOOD SPECIMENOrdering Facility: [facility] Address: [address] [place] [address] Performed By: #### 2 4321-2 ####[facility]ORATORYCLIA [id number] [place] [address] [place] Calcium [Mass/Vol] 8.8 mg/dL Normal 8.5-10.2 [facility] Comment on above: Order Comment: Speci men Type: BLOOD SPECIMENOrdering Facility: [facility] Address: [address] [place] [address] Performed By: #### 2 4321-2 ####[facility]ORATORYCLIA [id number] [place] [address] [place] Chloride [Moles/Vol] 102 mmol/L Normal 97-105 [facility] Comment on above: Order Comment: Speci men Type: BLOOD SPECIMENOrdering Facility: [facility] Address: [address] [place] [address] Performed By: #### 2 4321-2 ####[facility]ORATORYCLIA [id number] [place] [address] [place] CO2 [Moles/Vol] 27 mmol/L Normal 22-30 [facility] Comment on above: Order Comment: Speci men Type: BLOOD SPECIMENOrdering Facility: [facility] Address: [address] [place] [address] Performed By: #### 2 4321-2 ####[facility]ORATORYCLIA [id number] [place] [address] [place] Creatinine [Mass/Vol] 0.69 mg/dL Normal 0.58-0.96 [facility] Comment on above: Order Comment: Speci men Type: BLOOD SPECIMENOrdering Facility: [facility] Address: [address] [place] [address] Performed By: #### 2 4321-2 ####[facility]ORATORYCLIA [id number] [place] [address] [place] ESTIMATED GLOMERULAR FILTRATION RATE 101 mL/min/1.73m??? Normal >=60 [facility] Comment on above: Order Comment: Tawanda mosley Type: BLOOD SPECIMENOrdering Facility: [facility] Address: [address] [place] [address] Result Comment: Manasa mated Glomerular Filtration Rate (eGFR) is calculated using the 2020 CKD-EPI creatinine equation. This equation utilizes serum creatinine, sex, and age as parameters. The creatinine assay has traceable calibration to isotope dilution-mass spectrometry. Refer to KDIGO guidelines for clinical interpretation. In patients with unstable renal function, e.g. those with acute kidney injury, the eGFR may not accurately reflect actual GFR. Performed By: #### 2 4321-2 ####[facility]ORATORYCLIA [id number] [place] [address] [place] Glucose [Mass/Vol] 147 mg/dL High 74-99 [facility] Comment on above: Order Comment: Tawanda mosley Type: BLOOD SPECIMENOrdering Facility: [facility] Address: [address] [place] [address] Result Comment: The [place] Diabetes Association (ADA) provides guidance for cutoff values for fasting glucose and random glucose. The ADA defines fasting as no caloric intake for at least 8 hours. Fasting plasma glucose results between 100 to 125 mg/dL indicate increased risk for diabetes (prediabetes).Fasting plasma glucose results greater than or equal to 126 mg/dL meet the criteria for diagnosis of diabetes. In the absence of unequivocal hyperglycemia, results should be confirmed by repeat testing. In a patient with classic symptoms of hyperglycemia or hyperglycemic crisis, random plasma glucose results greater than or equal to 200 mg/dL meet the criteria for diagnosis of diabetes.Reference: Standards of Medical Care in Diabetes 2016, [place] [employer]. Diabetes Care. 2016.39(Suppl 1). Performed By: #### 2 4321-2 ####[facility] LABORATORYCLIA [id number] [address] [id number] [place] Potassium [Moles/Vol] 3.8 mmol/L Normal 3.7-5.1 [facility] Comment on above: Order Comment: Tawanda mosley Type: BLOOD SPECIMENOrdering Facility: [facility] Address: [address] [address] Performed By: #### 2 4321-2 ####[facility]ORATORYCLIA [id number] [address] STATES [facility] Sodium [Moles/Vol] 140 mmol/L Normal 136-144 [facility] Comment on above: Order Comment: Speci men Type: BLOOD SPECIMENOrdering Facility: [facility] Address: [address] [address] Performed By: #### 2 4321-2 ####[facility]ORATORYCLIA [id number] [address] STATES [facility] Urea nitrogen [Mass/Vol] 11 mg/dL Normal 7-21 [facility] Comment on above: Order Comment: Speci men Type: BLOOD SPECIMENOrdering Facility: [facility] Address: [address] [address] Performed By: #### 2 4321-2 ####[facility]ORATORYCLIA [id number] [address] CASE MANAGEMon 10-09-2022 CASE MANAGEM Normal [facility] CONSULTon 10-09-2022 CONSULT Normal [facility] CONSULT PROGon 10-09-2022 CONSULT PROG Normal [facility] Vancomycin random [Mass/Vol] on 10-09-2022 Vancomycin [Mass/Vol] 13.6 ug/mL Normal 10.0-20.0 [facility] Comment on above: Order Comment: Speci men Type: BLOOD SPECIMENOrdering Facility: [facility] Address: [address] [address] Result Comment: Refe rence ranges and high/low indicator flags are provided as general guidelines only. The treating physician must determine appropriate target levels/dosing based on the specific clinical situation. Performed By: #### 4 091-5 ####[facility]ORATORYCLIA [id number] [address] [place] Basic metabolic 2000 panelon 10-08-2022 Anion gap [Moles/Vol] 8 mmol/L Low 9-18 [facility] Comment on above: Order Comment: Speci men Type: BLOOD SPECIMENOrdering Facility: [facility] Address: [address] [place] [address] Performed By: #### 2 4321-2 ####[facility] LABORATORYCLIA [id number] [place] [address] [place] Calcium [Mass/Vol] 8.7 mg/dL Normal 8.5-10.2 [facility] Comment on above: Order Comment: Speci men Type: BLOOD SPECIMENOrdering Facility: [facility] Address: [address] [place] [address] Performed By: #### 2 4321-2 ####[facility] GENER[facility] LABORATORYCLIA [id number] [place] [address] [place] Chloride [Moles/Vol] 103 mmol/L Normal 97-105 [facility] Comment on above: Order Comment: Speci men Type: BLOOD SPECIMENOrdering Facility: [facility] Address: [address] [place] [address] Performed By: #### 2 4321-2 ####[facility]ORATORYCLIA [id number] [place] [address] [place] CO2 [Moles/Vol] 30 mmol/L Normal 22-30 [facility] Comment on above: Order Comment: Speci men Type: BLOOD SPECIMENOrdering Facility: [facility] Address: [address] [place] [address] Performed By: #### 2 4321-2 ####[facility]ORATORYCLIA [id number] [place] [address] [place] Creatinine [Mass/Vol] 0.64 mg/dL Normal 0.58-0.96 [facility] Comment on above: Order Comment: Speci men Type: BLOOD SPECIMENOrdering Facility: [facility] Address: [address] [place] [address] Performed By: #### 2 4321-2 ####[facility] GENER[facility] LABORATORYCLIA [id number] [place] [address] [place] ESTIMATED GLOMERULAR FILTRATION RATE 103 mL/min/1.73m??? Normal >=60 [facility] Comment on above: Order Comment: Tawanda mosley Type: BLOOD SPECIMENOrdering Facility: [facility] Address: [address] [place] [address] Result Comment: Manasa mated Glomerular Filtration Rate (eGFR) is calculated using the 2020 CKD-EPI creatinine equation. This equation utilizes serum creatinine, sex, and age as parameters. The creatinine assay has traceable calibration to isotope dilution-mass spectrometry. Refer to KDIGO guidelines for clinical interpretation. In patients with unstable renal function, e.g. those with acute kidney injury, the eGFR may not accurately reflect actual GFR. Performed By: #### 2 4321-2 ####[facility]ATORYCLIA [id number] [place] [address] [place] Glucose [Mass/Vol] 119 mg/dL High 74-99 [facility] Comment on above: Order Comment: Tawanda mosley Type: BLOOD SPECIMENOrdering Facility: [facility] Address: [address] [place] [address] Result Comment: The [place] Diabetes [employer] (ADA) provides guidance for cutoff values for fasting glucose and random glucose. The ADA defines fasting as no caloric intake for at least 8 hours. Fasting plasma glucose results between 100 to 125 mg/dL indicate increased risk for diabetes (prediabetes).Fasting plasma glucose results greater than or equal to 126 mg/dL meet the criteria for diagnosis of diabetes. In the absence of unequivocal hyperglycemia, results should be confirmed by repeat testing. In a patient with classic symptoms of hyperglycemia or hyperglycemic crisis, random plasma glucose results greater than or equal to 200 mg/dL meet the criteria for diagnosis of diabetes.Reference: Standards of Medical Care in Diabetes 2016, [place] [employer]. Diabetes Care. 2016.39(Suppl 1). Performed By: #### 2 4321-2 ####[facility]ORATORYCLIA [id number] [place] [address] [place] Potassium [Moles/Vol] 4.0 mmol/L Normal 3.7-5.1 [facility] Comment on above: Order Comment: Speci men Type: BLOOD SPECIMENOrdering Facility: [facility] Address: [address] [address] Performed By: #### 2 4321-2 ####[facility]ORATORYCLIA [id number] [place] [address] [place] Sodium [Moles/Vol] 141 mmol/L Normal 136-144 [facility] Comment on above: Order Comment: Speci men Type: BLOOD SPECIMENOrdering Facility: [facility] Address: [address] [address] Performed By: #### 2 4321-2 ####[facility]ORATORYCLIA [id number] [place] [address] [place] Urea nitrogen [Mass/Vol] 10 mg/dL Normal 7-21 [facility] Comment on above: Order Comment: Speci men Type: BLOOD SPECIMENOrdering Facility: [facility] Address: [address] [place] [address] Performed By: #### 2 4321-2 ####[facility]ORATORYCLIA [id number] [place] [address] [place] CONSULTon 10-08-2022 CONSULT Normal [facility] CONSULT PROGon 10-08-2022 CONSULT PROG Normal [facility] NURSING PROGon 10-08-2022 NURSING PROG Normal [facility] ALLIED HEALTHon 10-07-2022 ALLIED HEALTH Normal [facility] Basic metabolic 2000 panelon 10-07-2022 Anion gap [Moles/Vol] 8 mmol/L Low 9-18 [facility] Comment on above: Order Comment: Speci men Type: BLOOD SPECIMENOrdering Facility: [facility] Address: [address] [address] Performed By: #### 1 9123-9, 2777-1, 90873-3 ####[facility] LABORATORYCLIA [id number] [place] [address] [place] Calcium [Mass/Vol] 8.7 mg/dL Normal 8.5-10.2 [facility] Comment on above: Order Comment: Speci men Type: BLOOD SPECIMENOrdering Facility: [facility] Address: [address] [place] [address] Performed By: #### 1 9123-9, 2777, 82411-6 ####[facility] LABORATORYCLIA [id number] [place] [address] [place] Chloride [Moles/Vol] 103 mmol/L Normal 97-105 [facility] Comment on above: Order Comment: Speci men Type: BLOOD SPECIMENOrdering Facility: [facility] Address: [address] [place] [address] Performed By: #### 1 9123-9, 27701-11, ####[facility] LABORATORYCLIA [id number] [address] [place] CO2 [Moles/Vol] 30 mmol/L Normal 22-30 [facility] Comment on above: Order Comment: Speci men Type: BLOOD SPECIMENOrdering Facility: [facility] Address: [address] [place] [address] Performed By: #### 1 9123-9, 27701-11, ####[facility] SERVICESCLIA [id number] [address] STATES OF [facility] Creatinine [Mass/Vol] 0.71 mg/dL Normal 0.58-0.96 [facility] Comment on above: Order Comment: Speci men Type: BLOOD SPECIMENOrdering Facility: [facility] Address: [address] [place] [address] Performed By: #### 1 9123-9, 2777, 01849-3 ####[facility] LABORATORYCLIA [id number] [address] ESTIMATED GLOMERULAR FILTRATION RATE 99 mL/min/1.73m??? Normal >=60 [facility] Comment on above: Order Comment: Speci men Type: BLOOD SPECIMENOrdering Facility: [facility] Address: [address] [place] [address] Result Comment: Manasa mated Glomerular Filtration Rate (eGFR) is calculated using the 2020 CKD-EPI creatinine equation. This equation utilizes serum creatinine, sex, and age as parameters. The creatinine assay has traceable calibration to isotope dilution-mass spectrometry. Refer to KDIGO guidelines for clinical interpretation. In patients with unstable renal function, e.g. those with acute kidney injury, the eGFR may not accurately reflect actual GFR. Performed By: #### 1 9123-9, 2777-, 73662-9 ####[facility] LABORATORYCLIA [id number] [place] [address] [place] Glucose [Mass/Vol] 156 mg/dL High 74-99 [facility] Comment on above: Order Comment: Speci men Type: BLOOD SPECIMENOrdering Facility: [facility] Address: [address] [place] [address] Result Comment: The [place] [employer] (ADA) provides guidance for cutoff values for fasting glucose and random glucose. The ADA defines fasting as no caloric intake for at least 8 hours. Fasting plasma glucose results between 100 to 125 mg/dL indicate increased risk for diabetes (prediabetes).Fasting plasma glucose results greater than or equal to 126 mg/dL meet the criteria for diagnosis of diabetes. In the absence of unequivocal hyperglycemia, results should be confirmed by repeat testing. In a patient with classic symptoms of hyperglycemia or hyperglycemic crisis, random plasma glucose results greater than or equal to 200 mg/dL meet the criteria for diagnosis of diabetes.Reference: Standards of Medical Care in Diabetes 2016, [place] [employer]. Diabetes Care. 2016.39(Suppl 1). Performed By: #### 1 9123-9, 2777-, 46056-8 ####[facility] HOSPITALIA [id number] [place] [address] [place] Potassium [Moles/Vol] 3.8 mmol/L Normal 3.7-5.1 [facility] Comment on above: Order Comment: Tawanda mosley Type: BLOOD SPECIMENOrdering Facility: [facility] Address: [address] [phone] Performed By: #### 1 9123-9, 2777-, 88822-3 ####[facility] LABORATORYCLIA [id number] [place] [address] [place] Sodium [Moles/Vol] 141 mmol/L Normal 136-144 [facility] Comment on above: Order Comment: Speci men Type: BLOOD SPECIMENOrdering Facility: [facility] Address: [address] [place] [address] Performed By: #### 1 9123-9, 2777-1, 49809-9 ####[facility] LABORATORYCLIA [id number] [place] [address] [place] Urea nitrogen [Mass/Vol] 11 mg/dL Normal 7-21 [facility] Comment on above: Order Comment: Speci men Type: BLOOD SPECIMENOrdering Facility: [facility] Address: [address] [place] [address] Performed By: #### 1 9123-9, 2777-1, 42094-0 ####[facility]ORATORYCLIA [id number] [address] [place] Anion gap [Moles/Vol] 7 mmol/L Low 9-18 [facility] Comment on above: Order Comment: Speci men Type: BLOOD SPECIMENOrdering Facility: [facility] Address: [address] [place] [address] Performed By: #### 2 4321-2 ####[facility]ORATORYCLIA [id number] [place] [address] [place] Calcium [Mass/Vol] 8.8 mg/dL Normal 8.5-10.2 [facility] Comment on above: Order Comment: Speci men Type: BLOOD SPECIMENOrdering Facility: [facility] Address: [address] [place] [address] Performed By: #### 2 4321-2 ####[facility]ORATORYCLIA [id number] [place] [address] [place] Chloride [Moles/Vol] 103 mmol/L Normal 97-105 [facility] Comment on above: Order Comment: Speci men Type: BLOOD SPECIMENOrdering Facility: [facility] Address: [address] [place] [address] Performed By: #### 2 4321-2 ####[facility]ORATORYCLIA [id number] [address] CO2 [Moles/Vol] 30 mmol/L Normal 22-30 [facility] Comment on above: Order Comment: Speci men Type: BLOOD SPECIMENOrdering Facility: [facility] Address: [address] [place] [address] Performed By: #### 2 4321-2 ####[facility] SERVICESCLIA [id number] [address] OF [facility] Creatinine [Mass/Vol] 0.68 mg/dL Normal 0.58-0.96 [facility] Comment on above: Order Comment: Speci men Type: BLOOD SPECIMENOrdering Facility: [facility] Address: [address] [place] [address] Performed By: #### 2 4321-2 ####[facility] HOSPITALIA [id number] [address] ESTIMATED GLOMERULAR FILTRATION RATE 101 mL/min/1.73m??? Normal >=60 [facility] Comment on above: Order Comment: Speci men Type: BLOOD SPECIMENOrdering Facility: [facility] Address: [address] [place] [address] Result Comment: Manasa mated Glomerular Filtration Rate (eGFR) is calculated using the 2020 CKD-EPI creatinine equation. This equation utilizes serum creatinine, sex, and age as parameters. The creatinine assay has traceable calibration to isotope dilution-mass spectrometry. Refer to KDIGO guidelines for clinical interpretation. In patients with unstable renal function, e.g. those with acute kidney injury, the eGFR may not accurately reflect actual GFR. Performed By: #### 2 4321-2 ####[facility]ORATORYCLIA [id number] [address] Glucose [Mass/Vol] 118 mg/dL High 74-99 [facility] Comment on above: Order Comment: Speci men Type: BLOOD SPECIMENOrdering Facility: [facility] Address: [address] [place] [address] Result Comment: The [place] Diabetes Association (ADA) provides guidance for cutoff values for fasting glucose and random glucose. The ADA defines fasting as no caloric intake for at least 8 hours. Fasting plasma glucose results between 100 to 125 mg/dL indicate increased risk for diabetes (prediabetes).Fasting plasma glucose results greater than or equal to 126 mg/dL meet the criteria for diagnosis of diabetes. In the absence of unequivocal hyperglycemia, results should be confirmed by repeat testing. In a patient with classic symptoms of hyperglycemia or hyperglycemic crisis, random plasma glucose results greater than or equal to 200 mg/dL meet the criteria for diagnosis of diabetes.Reference: Standards of Medical Care in Diabetes 2016, [place] [employer]. Diabetes Care. 2016.39(Suppl 1). Performed By: #### 2 4321-2 ####[facility]ORATORYCLIA [id number] [place] [address] [place] Potassium [Moles/Vol] 4.0 mmol/L Normal 3.7-5.1 [facility] Comment on above: Order Comment: Speci men Type: BLOOD SPECIMENOrdering Facility: [facility] Address: [address] [address] Performed By: #### 2 4321-2 ####[facility]ORATORYCLIA [id number] [address] Sodium [Moles/Vol] 140 mmol/L Normal 136-144 [facility] Comment on above: Order Comment: Speci men Type: BLOOD SPECIMENOrdering Facility: [facility] Address: [address] [address] Performed By: #### 2 4321-2 ####[facility]ORATORYCLIA [id number] [place] [address] [place] Urea nitrogen [Mass/Vol] 13 mg/dL Normal 7-21 [facility] Comment on above: Order Comment: Speci men Type: BLOOD SPECIMENOrdering Facility: [facility] Address: [address] [address] Performed By: #### 2 4321-2 ####[facility]ORATORYCLIA [id number] [address] OF [facility] CASE MGT INIT ASSESon 2022 CASE MGT INIT ASSES Normal [facility] CBC panel Auto (Bld)on 10-07 Erythrocyte distribution width (RBC) [Ratio] 13.4 % Normal 11.5-15.0 [facility] Comment on above: Order Comment: Speci men Type: BLOOD SPECIMENOrdering Facility: [facility] Address: [address] [place] [address] Performed By: #### 5 8410-2 ####[facility]ORATORYCLIA [id number] [address] Hematocrit (Bld) [Volume fraction] 36.2 % Normal 36.0-46.0 [facility] Comment on above: Order Comment: Speci men Type: BLOOD SPECIMENOrdering Facility: [facility] Address: [address] [place] [address] Performed By: #### 5 8410-2 ####[facility]ORATORYCLIA [id number] [address] Hemoglobin (Bld) [Mass/Vol] 11.5 g/dL Normal 11.5-15.5 [facility] Comment on above: Order Comment: Speci men Type: BLOOD SPECIMENOrdering Facility: [facility] Address: [address] [place] [address] Performed By: #### 5 8410-2 ####[facility] LABORATORYCLIA [id number] [address] STATES [facility] MCH (RBC) [Entitic mass] 28.1 pg Normal 26.0-34.0 [facility] Comment on above: Order Comment: Speci men Type: BLOOD SPECIMENOrdering Facility: [facility] Address: [address] [place] [address] Performed By: #### 5 8410-2 ####[facility]ORATORYCLIA [id number] [address] STATES [facility] MCHC (RBC) [Mass/Vol] 31.8 g/dL Normal 30.5-36.0 [facility] Comment on above: Order Comment: Speci men Type: BLOOD SPECIMENOrdering Facility: [facility] Address: [address] [address] Performed By: #### 5 8410-2 ####[facility]ORATORYCLIA [id number] [address] OF [facility] MCV (RBC) [Entitic vol] 88.5 fL Normal 80.0-100.0 [facility] Comment on above: Order Comment: Speci men Type: BLOOD SPECIMENOrdering Facility: [facility] Address: [address] [address] Performed By: #### 5 8410-2 ####[facility]ORATORYCLIA [id number] [address] OF [facility] Nucleated RBC (Bld) [#/Vol] 10*3/uL Normal <0.01 [facility] Comment on above: Order Comment: Speci men Type: BLOOD SPECIMENOrdering Facility: [facility] Address: [address] [address] Performed By: #### 5 8410-2 ####[facility]ORATORYCLIA [id number] [address] Platelet mean volume (Bld) [Entitic vol] 10.5 fL Normal 9.0-12.7 [facility] Comment on above: Order Comment: Speci men Type: BLOOD SPECIMENOrdering Facility: [facility] Address: [address] [place] [address] Performed By: #### 5 8410-2 ####[facility]ORATORYCLIA [id number] [address] [place] Platelets (Bld) [#/Vol] 245 10*3/uL Normal 150-400 [facility] Comment on above: Order Comment: Speci men Type: BLOOD SPECIMENOrdering Facility: [facility] Address: [address] [address] Performed By: #### 5 8410-2 ####[facility]ORATORYCLIA [id number] [address] [place] RBC (Bld) [#/Vol] 4.09 10*6/uL Normal 3.90-5.20 [facility] Comment on above: Order Comment: Speci men Type: BLOOD SPECIMENOrdering Facility: [facility] Address: [address] [place] [address] Performed By: #### 5 8410-2 ####[facility]ORATORYCLIA [id number] [address] [place] WBC (Bld) [#/Vol] 9.20 10*3/uL Normal 3.70-11.00 [facility] Comment on above: Order Comment: Speci men Type: BLOOD SPECIMENOrdering Facility: [facility] Address: [address] [place] [address] Performed By: #### 5 8410-2 ####[facility]ORATORYCLIA [id number] [address] STATES [facility] Erythrocyte distribution width (RBC) [Ratio] 13.6 % Normal 11.5-15.0 [facility] Comment on above: Order Comment: Speci men Type: BLOOD SPECIMENOrdering Facility: [facility] Address: [address] [place] [address] Performed By: #### 5 8410-2 ####[facility]ORATORYCLIA [id number] [address] OF [facility] Hematocrit (Bld) [Volume fraction] 38.7 % Normal 36.0-46.0 [facility] Comment on above: Order Comment: Speci men Type: BLOOD SPECIMENOrdering Facility: [facility] Address: [address] [place] [address] Performed By: #### 5 8410-2 ####[facility]ORATORYCLIA [id number] [address] [place] Hemoglobin (Bld) [Mass/Vol] 11.8 g/dL Normal 11.5-15.5 [facility] Comment on above: Order Comment: Speci men Type: BLOOD SPECIMENOrdering Facility: [facility] Address: [address] [address] Performed By: #### 5 8410-2 ####[facility]ORATORYCLIA [id number] [address] MCH (RBC) [Entitic mass] 27.8 pg Normal 26.0-34.0 [facility] Comment on above: Order Comment: Speci men Type: BLOOD SPECIMENOrdering Facility: [facility] Address: [address] [place] [address] Performed By: #### 5 8410-2 ####[facility]ORATORYCLIA [id number] [address] MCHC (RBC) [Mass/Vol] 30.5 g/dL Normal 30.5-36.0 [facility] Comment on above: Order Comment: Speci men Type: BLOOD SPECIMENOrdering Facility: [facility] Address: [address] [place] [address] Performed By: #### 5 8410-2 ####[facility]ORATORYCLIA [id number] [address] MCV (RBC) [Entitic vol] 91.3 fL Normal 80.0-100.0 [facility] Comment on above: Order Comment: Speci men Type: BLOOD SPECIMENOrdering Facility: [facility] Address: [address] [place] [address] Performed By: #### 5 8410-2 ####[facility]ORATORYCLIA [id number] [address] Nucleated RBC (Bld) [#/Vol] 10*3/uL Normal <0.01 [facility] Comment on above: Order Comment: Speci men Type: BLOOD SPECIMENOrdering Facility: [facility] Address: [address] [place] [address] Performed By: #### 5 8410-2 ####[facility]ORATORYCLIA [id number] [address] Platelet mean volume (Bld) [Entitic vol] 10.4 fL Normal 9.0-12.7 [facility] Comment on above: Order Comment: Speci men Type: BLOOD SPECIMENOrdering Facility: [facility] Address: [address] [place] [address] Performed By: #### 5 8410-2 ####[facility]ORATORYCLIA [id number] [place] [address] [place] Platelets (Bld) [#/Vol] 232 10*3/uL Normal 150-400 [facility] Comment on above: Order Comment: Speci men Type: BLOOD SPECIMENOrdering Facility: [facility] Address: [address] [place] [address] Performed By: #### 5 8410-2 ####[facility] LABORATORYCLIA [id number] [place] [address] [place] RBC (Bld) [#/Vol] 4.24 10*6/uL Normal 3.90-5.20 [facility] Comment on above: Order Comment: Speci men Type: BLOOD SPECIMENOrdering Facility: [facility] Address: [address] [place] [address] Performed By: #### 5 8410-2 ####[facility]ORATORYCLIA [id number] [place] [address] [place] WBC (Bld) [#/Vol] 9.85 10*3/uL Normal 3.70-11.00 [facility] Comment on above: Order Comment: Speci men Type: BLOOD SPECIMENOrdering Facility: [facility] Address: [address] [place] [address] Performed By: #### 5 8410-2 ####[facility] LABORATORYCLIA [id number] [address] [place] CONSULTon 10-07-2022 CONSULT Normal [facility] CONSULT PROGon 10-07-2022 CONSULT PROG Normal [facility] CONSULT PROG Normal [facility] CT BRAIN WO IVCONon 10-08-[address] BRAIN WO IVCON Normal [facility] CT FOREARM W IVCON RTon 09-12 CT FOREARM W IVCON RT Normal [facility] Gas and Carbon monoxide pane l (BldV)on 10-07-2022 Base excess Calc (BldV) [Moles/Vol] 4 mmol/L High 0-2 [facility] Comment on above: Order Comment: Speci men Type: VENOUS BLOOD SPECIMENOrdering Facility: [facility] Address: [address] [place] [address] Performed By: #### 2 4344-4 ####[facility] LABORATORYCLIA [id number] [address] STATES [facility] Body temperature 98.6 [degF] Normal [facility] Comment on above: Order Comment: Speci men Type: VENOUS BLOOD SPECIMENOrdering Facility: [facility] Address: [address] [place] [address] Performed By: #### 2 4344-4 ####[facility]ORATORYCLIA [id number] [address] STATES OF [facility] Calcium.ionized (BldV) [Mass/Vol] 1.15 mmol/L Normal 1.08-1.30 [facility] Comment on above: Order Comment: Speci men Type: VENOUS BLOOD SPECIMENOrdering Facility: [facility] Address: [address] [place] [address] Performed By: #### 2 4344-4 ####[facility]ORATORYCLIA [id number] [address] [place] Calcium.ionized adjusted to pH 7.4 (BldA) [Moles/Vol] 1.10 mmol/L Normal 1.08-1.30 [facility] Comment on above: Order Comment: Speci men Type: VENOUS BLOOD SPECIMENOrdering Facility: [facility] Address: [address] [place] [address] Performed By: #### 2 4344-4 ####[facility] LABORATORYCLIA [id number] [place] [address] [place] Carboxyhemoglobin (BldV) [Mass fraction] 1.9 % Normal 0.0-2.0 [facility] Comment on above: Order Comment: Speci men Type: VENOUS BLOOD SPECIMENOrdering Facility: [facility] Address: [address] [place] [address] Result Comment: Carb oxyhemoglobin Reference Range for Smokers: 2.0-8.0% Performed By: #### 2 4344-4 ####[facility]ORATORYCLIA [id number] [place] [address] [place] Chloride [Moles/Vol] 104 mmol/L Normal 102-109 [facility] Comment on above: Order Comment: Speci men Type: VENOUS BLOOD SPECIMENOrdering Facility: [facility] Address: [address] [place] [address] Performed By: #### 2 4344-4 ####[facility]ORATORYCLIA [id number] [address] [place] CO2 (BldV) [Partial pressure] 61 mm[Hg] High 42-55 [facility] Comment on above: Order Comment: Speci men Type: VENOUS BLOOD SPECIMENOrdering Facility: [facility] Address: [address] [place] [address] Performed By: #### 2 4344-4 ####[facility]ORATORYCLIA [id number] [place] [address] [place] CO2 [Moles/Vol] 28 mmol/L Normal 25-29 [facility] Comment on above: Order Comment: Speci men Type: VENOUS BLOOD SPECIMENOrdering Facility: [facility] Address: [address] [place] [address] Performed By: #### 2 4344-4 ####[facility]ORATORYCLIA [id number] [place] [address] [place] Glucose [Mass/Vol] 152 mg/dL High 60-105 [facility] Comment on above: Order Comment: Speci men Type: VENOUS BLOOD SPECIMENOrdering Facility: [facility] Address: [address] [place] [address] Performed By: #### 2 4344-4 ####[facility] LABORATORYCLIA [id number] [address] [place] HCO3 (Bld) [Moles/Vol] 31 mmol/L High 24-28 [facility] Comment on above: Order Comment: Speci men Type: VENOUS BLOOD SPECIMENOrdering Facility: [facility] Address: [address] [place] [address] Performed By: #### 2 4344-4 ####[facility] LABORATORYCLIA [id number] [address] [place] Hematocrit (Bld) [Volume fraction] 37.3 % Normal 36.0-46.0 [facility] Comment on above: Order Comment: Speci men Type: VENOUS BLOOD SPECIMENOrdering Facility: [facility] Address: [address] [place] [address] Performed By: #### 2 4344-4 ####[facility]ATORYCLIA [id number] [address] Hemoglobin (Bld) [Mass/Vol] 12.1 g/dL Normal 11.5-15.5 [facility] Comment on above: Order Comment: Speci men Type: VENOUS BLOOD SPECIMENOrdering Facility: [facility] Address: [address] [place] [address] Performed By: #### 2 4344-4 ####[facility]ORATORYCLIA [id number] [address] [place] Lactate [Moles/Vol] 1.7 mmol/L Normal 0.5-2.2 [facility] Comment on above: Order Comment: Speci men Type: VENOUS BLOOD SPECIMENOrdering Facility: [facility] Address: [address] [place] [address] Performed By: #### 2 4344-4 ####[facility] LABORATORYCLIA [id number] [address] [place] Methemoglobin (Bld) [Mass fraction] % Normal 0.0-1.5 [facility] Comment on above: Order Comment: Speci men Type: VENOUS BLOOD SPECIMENOrdering Facility: [facility] Address: [address] [place] [address] Performed By: #### 2 4344-4 ####[facility] [facility]ORATORYCLIA [id number] [address] [place] O2 THERAPY NC = Nasal Cannula Normal [facility] Comment on above: Order Comment: Speci men Type: VENOUS BLOOD SPECIMENOrdering Facility: [facility] Address: [address] [place] [address] Result Comment: 6 Performed By: #### 2 4344-4 ####[facility] [facility] LABORATORYCLIA [id number] [address] [place] Oxygen (BldV) [Partial pressure] 196 mm[Hg] High 35-45 [facility] Comment on above: Order Comment: Speci men Type: VENOUS BLOOD SPECIMENOrdering Facility: [facility] Address: [address] [place] [address] Performed By: #### 2 4344-4 ####[facility]ATORYCLIA [id number] [address] [place] Oxygen saturation in Venous blood 100 % High 60-85 [facility] Comment on above: Order Comment: Speci men Type: VENOUS BLOOD SPECIMENOrdering Facility: [facility] Address: [address] [place] [address] Performed By: #### 2 4344-4 ####[facility]ORATORYCLIA [id number] [address] [place] Oxyhemoglobin (BldV) [Mass fraction] 97 % High 60-85 [facility] Comment on above: Order Comment: Speci men Type: VENOUS BLOOD SPECIMENOrdering Facility: [facility] Address: [address] [place] [address] Performed By: #### 2 4344-4 ####[facility]ORATORYCLIA [id number] [place] [address] [place] pH (BldV) 7.32 [pH] Normal 7.32-7.42 [facility] Comment on above: Order Comment: Speci men Type: VENOUS BLOOD SPECIMENOrdering Facility: [facility] Address: [address] [place] [address] Performed By: #### 2 4344-4 ####[facility] LABORATORYCLIA [id number] [address] [place] Potassium [Moles/Vol] 3.7 mmol/L Normal 3.5-5.0 [facility] Comment on above: Order Comment: Speci men Type: VENOUS BLOOD SPECIMENOrdering Facility: [facility] Address: [address] [place] [address] Performed By: #### 2 4344-4 ####[facility] LABORATORYCLIA [id number] [address] STATES OF [facility] Sodium [Moles/Vol] 140 mmol/L Normal 136-144 [facility] Comment on above: Order Comment: Speci men Type: VENOUS BLOOD SPECIMENOrdering Facility: [facility] Address: [address] [place] [address] Performed By: #### 2 4344-4 ####[facility] LABORATORYCLIA [id number] [place] [address] [place] Magnesium SerPl-mCncon 10-07 Magnesium [Mass/Vol] 2.0 mg/dL Normal 1.7-2.3 [facility] Comment on above: Order Comment: Speci men Type: BLOOD SPECIMENOrdering Facility: [facility] Address: [address] [place] [address] Performed By: #### 1 9123-9, 2777-1, 29246-8 ####[facility]ORATORYCLIA [id number] [place] [address] [place] NURSING PROGon 10-07-2022 NURSING PROG Normal [facility] Phosphate SerPl-mCncon 10-07 Phosphate [Mass/Vol] 4.0 mg/dL Normal 2.7-4.8 [facility] Comment on above: Order Comment: Speci men Type: BLOOD SPECIMENOrdering Facility: [facility] Address: [address] [address] Performed By: #### 1 9123-9, 2777-1, 33865-3 ####[facility]ORATORYCLIA [id number] [address] STATES OF [facility] Vancomycin random [Mass/Vol] on 10-07-2022 Vancomycin [Mass/Vol] 17.0 ug/mL Normal 10.0-20.0 [facility] Comment on above: Order Comment: Speci melany Type: BLOOD SPECIMENOrdering Facility: [facility] Address: [address] [address] Result Comment: Refe rence ranges and high/low indicator flags are provided as general guidelines only. The treating physician must determine appropriate target levels/dosing based on the specific clinical situation. Performed By: #### 4 091-5 ####[facility] LABORATORYCLIA [id number] [address] OF [facility] levETIRAcetam SerPl-mCncon 0 10-07-2022 levETIRAcetam [Mass/Vol] 30.9 ug/mL Normal 12.0-46.0 [facility] Comment on above: Order Comment: Tawanda mosley Type: BLOOD SPECIMENOrdering Facility: [facility] Address: [address] [place] [address] Result Comment: This test is not suitable for patients receiving treatment with the drug brivaracetam (Briviact). The drug causes an interference that may lead to falsely elevated levetiracetam results.Reference ranges and high/low indicator flags are provided as general guidelines only. The treating physician must determine appropriate target levels/dosing based on the specific clinical situation.This test was developed and its performance characteristics determined by [facility]'s Azida JMeenu [facility] [place] ([facility]). It has not been cleared or approved by the FDA. -[facility] is regulated under CLIA as qualified to perform high-complexity testing. This test is used for clinical purposes. It should not be regarded as investigational or for research. Performed By: #### 3 0471-7 ####[facility] LABCLIA [id number] [facility] CENTERDESK [id number] OF [facility] Bacteria Bld Culton 10-07-19 23 Bacteria identified Cx Nom (Bld) CULTURE, BLOOD: No growth 5 days Normal [facility] Comment on above: Performed By: #### 6 00-7 ####[facility]ORATORYCLIA [id number] [address] [place] CBC W Auto Differential pane l (Bld)on 10-06-2022 Basophils (Bld) [#/Vol] 0.08 10*3/uL Normal <0.11 [facility] Comment on above: Order Comment: Speci men Type: BLOOD SPECIMENOrdering Facility: [facility] Address: [address] [address] Performed By: #### 5 7021-8 ####[facility]ORATORYCLIA [id number] [address] [place] Basophils/100 WBC (Bld) 0.9 % Normal [facility] Comment on above: Order Comment: Speci men Type: BLOOD SPECIMENOrdering Facility: [facility] Address: [address] [place] [address] Performed By: #### 5 7021-8 ####[facility]ORATORYCLIA [id number] [address] Differential cell count method Nom (Bld) Auto Normal [facility] Comment on above: Order Comment: Speci men Type: BLOOD SPECIMENOrdering Facility: [facility] Address: [address] [address] Performed By: #### 5 7021-8 ####[facility]ORATORYCLIA [id number] [address] [place] Eosinophils (Bld) [#/Vol] 0.30 10*3/uL Normal <0.46 [facility] Comment on above: Order Comment: Speci men Type: BLOOD SPECIMENOrdering Facility: [facility] Address: [address] [address] Performed By: #### 5 7021-8 ####[facility]ORATORYCLIA [id number] [address] Eosinophils/100 WBC (Bld) 3.3 % Normal [facility] Comment on above: Order Comment: Speci men Type: BLOOD SPECIMENOrdering Facility: [facility] Address: [address] [place] [address] Performed By: #### 5 7021-8 ####[facility]ORATORYCLIA [id number] [address] [place] Erythrocyte distribution width (RBC) [Ratio] 13.2 % Normal 11.5-15.0 [facility] Comment on above: Order Comment: Speci men Type: BLOOD SPECIMENOrdering Facility: [facility] Address: [address] [place] [address] Performed By: #### 5 7021-8 ####[facility]ORATORYCLIA [id number] [address] Hematocrit (Bld) [Volume fraction] 39.3 % Normal 36.0-46.0 [facility] Comment on above: Order Comment: Speci men Type: BLOOD SPECIMENOrdering Facility: [facility] Address: [address] [place] [address] Performed By: #### 5 7021-8 ####[facility]ORATORYCLIA [id number] [address] [place] Hemoglobin (Bld) [Mass/Vol] 12.4 g/dL Normal 11.5-15.5 [facility] Comment on above: Order Comment: Speci men Type: BLOOD SPECIMENOrdering Facility: [facility] Address: [address] [place] [address] Performed By: #### 5 7021-8 ####[facility]ORATORYCLIA [id number] [address] [place] Immature granulocytes (Bld) [#/Vol] 0.04 10*3/uL Normal <0.10 [facility] Comment on above: Order Comment: Speci men Type: BLOOD SPECIMENOrdering Facility: [facility] Address: [address] [place] [address] Performed By: #### 5 7021-8 ####[facility]ORATORYCLIA [id number] [address] STATES [facility] Immature granulocytes/100 WBC (Bld) 0.4 % Normal [facility] Comment on above: Order Comment: Speci men Type: BLOOD SPECIMENOrdering Facility: [facility] Address: [address] [place] [address] Performed By: #### 5 7021-8 ####[facility]ORATORYCLIA [id number] [address] Lymphocytes (Bld) [#/Vol] 3.05 10*3/uL Normal 1.00-4.00 [facility] Comment on above: Order Comment: Speci men Type: BLOOD SPECIMENOrdering Facility: [facility] Address: [address] [place] [address] Performed By: #### 5 7021-8 ####[facility]ORATORYCLIA [id number] [address] Lymphocytes/100 WBC (Bld) 33.5 % Normal [facility] Comment on above: Order Comment: Speci men Type: BLOOD SPECIMENOrdering Facility: [facility] Address: [address] [place] [address] Performed By: #### 5 7021-8 ####[facility]ORATORYCLIA [id number] [address] STATES [facility] MCH (RBC) [Entitic mass] 27.9 pg Normal 26.0-34.0 [facility] Comment on above: Order Comment: Speci men Type: BLOOD SPECIMENOrdering Facility: [facility] Address: [address] [place] [address] Performed By: #### 5 7021-8 ####[facility]ORATORYCLIA [id number] [address] MCHC (RBC) [Mass/Vol] 31.6 g/dL Normal 30.5-36.0 [facility] Comment on above: Order Comment: Speci men Type: BLOOD SPECIMENOrdering Facility: [facility] Address: [address] [place] [address] Performed By: #### 5 7021-8 ####[facility]ORATORYCLIA [id number] [address] [place] MCV (RBC) [Entitic vol] 88.5 fL Normal 80.0-100.0 [facility] Comment on above: Order Comment: Speci men Type: BLOOD SPECIMENOrdering Facility: [facility] Address: [address] [place] [address] Performed By: #### 5 7021-8 ####[facility]ORATORYCLIA [id number] [address] [place] Monocytes (Bld) [#/Vol] 0.73 10*3/uL Normal <0.87 [facility] Comment on above: Order Comment: Speci men Type: BLOOD SPECIMENOrdering Facility: [facility] Address: [address] [place] [address] Performed By: #### 5 7021-8 ####[facility]ORATORYCLIA [id number] [address] Monocytes/100 WBC (Bld) 8.0 % Normal [facility] Comment on above: Order Comment: Speci men Type: BLOOD SPECIMENOrdering Facility: [facility] Address: [address] [place] [address] Performed By: #### 5 7021-8 ####[facility]ORATORYCLIA [id number] [address] [place] Neutrophils (Bld) [#/Vol] 4.90 10*3/uL Normal 1.45-7.50 [facility] Comment on above: Order Comment: Speci men Type: BLOOD SPECIMENOrdering Facility: [facility] Address: [address] [place] [address] Performed By: #### 5 7021-8 ####[facility]ORATORYCLIA [id number] [address] Neutrophils/100 WBC (Bld) 53.9 % Normal [facility] Comment on above: Order Comment: Speci men Type: BLOOD SPECIMENOrdering Facility: [facility] Address: [address] [place] [address] Performed By: #### 5 7021-8 ####[facility]ORATORYCLIA [id number] [address] [place] Nucleated RBC (Bld) [#/Vol] 10*3/uL Normal <0.01 [facility] Comment on above: Order Comment: Speci men Type: BLOOD SPECIMENOrdering Facility: [facility] Address: [address] [place] [address] Performed By: #### 5 7021-8 ####[facility]ORATORYCLIA [id number] [address] Nucleated RBC/100 WBC (Bld) [Ratio] 0.0 /100 WBC Normal [facility] Comment on above: Order Comment: Speci men Type: BLOOD SPECIMENOrdering Facility: [facility] Address: [address] [place] [address] Performed By: #### 5 7021-8 ####[facility]ORATORYCLIA [id number] [address] [place] Platelet mean volume (Bld) [Entitic vol] 10.6 fL Normal 9.0-12.7 [facility] Comment on above: Order Comment: Speci men Type: BLOOD SPECIMENOrdering Facility: [facility] Address: [address] [place] [address] Performed By: #### 5 7021-8 ####[facility]ORATORYCLIA [id number] [address] [place] Platelets (Bld) [#/Vol] 253 10*3/uL Normal 150-400 [facility] Comment on above: Order Comment: Speci men Type: BLOOD SPECIMENOrdering Facility: [facility] Address: [address] [address] Performed By: #### 5 7021-8 ####[facility]ORATORYCLIA [id number] [address] STATES OF [facility] RBC (Bld) [#/Vol] 4.44 10*6/uL Normal 3.90-5.20 [facility] Comment on above: Order Comment: Speci men Type: BLOOD SPECIMENOrdering Facility: [facility] Address: [address] [address] Performed By: #### 5 7021-8 ####[facility]ORATORYCLIA [id number] [address] WBC (Bld) [#/Vol] 9.10 10*3/uL Normal 3.70-11.00 [facility] Comment on above: Order Comment: Speci men Type: BLOOD SPECIMENOrdering Facility: [facility] Address: [address] [place] [address] Performed By: #### 5 7021-8 ####[facility]ORATORYCLIA [id number] [address] CONSULT PROGon 10-06-2022 CONSULT PROG Normal [facility] Comprehensive metabolic 2000 panelon 10-06-2022 Albumin [Mass/Vol] 3.6 g/dL Low 3.9-4.9 [facility] Comment on above: Order Comment: Speci men Type: BLOOD SPECIMENOrdering Facility: [facility] Address: [address] [address] Performed By: #### 2 4323-8 ####[facility]ORATORYCLIA [id number] [address] ALP [Catalytic activity/Vol] 94 U/L Normal 34-123 [facility] Comment on above: Order Comment: Speci men Type: BLOOD SPECIMENOrdering Facility: [facility] Address: [address] [place] [address] Performed By: #### 2 4323-8 ####[facility]ORATORYCLIA [id number] [place] [address] [place] ALT With P-5'-P [Catalytic activity/Vol] 27 U/L Normal 7-38 [facility] Comment on above: Order Comment: Speci men Type: BLOOD SPECIMENOrdering Facility: [facility] Address: [address] [place] [address] Performed By: #### 2 4323-8 ####[facility]ORATORYCLIA [id number] [address] [place] Anion gap [Moles/Vol] 7 mmol/L Low 9-18 [facility] Comment on above: Order Comment: Speci men Type: BLOOD SPECIMENOrdering Facility: [facility] Address: [address] [place] [address] Performed By: #### 2 4323-8 ####[facility]ORATORYCLIA [id number] [address] STATES OF [facility] AST With P-5'-P [Catalytic activity/Vol] 26 U/L Normal 13-35 [facility] Comment on above: Order Comment: Speci men Type: BLOOD SPECIMENOrdering Facility: [facility] Address: [address] [place] [address] Performed By: #### 2 4323-8 ####[facility]ORATORYCLIA [id number] [address] [place] Bilirubin [Mass/Vol] 0.3 mg/dL Normal 0.2-1.3 [facility] Comment on above: Order Comment: Speci men Type: BLOOD SPECIMENOrdering Facility: [facility] Address: [address] [place] [address] Performed By: #### 2 4323-8 ####[facility]ORATORYCLIA [id number] [address] OF [facility] Calcium [Mass/Vol] 8.6 mg/dL Normal 8.5-10.2 [facility] Comment on above: Order Comment: Speci men Type: BLOOD SPECIMENOrdering Facility: [facility] Address: [address] [place] [address] Performed By: #### 2 4323-8 ####[facility]ORATORYCLIA [id number] [address] STATES OF [facility] Chloride [Moles/Vol] 107 mmol/L High 97-105 [facility] Comment on above: Order Comment: Speci men Type: BLOOD SPECIMENOrdering Facility: [facility] Address: [address] [place] [address] Performed By: #### 2 4323-8 ####[facility]ORATORYCLIA [id number] [address] [place] CO2 [Moles/Vol] 28 mmol/L Normal 22-30 [facility] Comment on above: Order Comment: Speci men Type: BLOOD SPECIMENOrdering Facility: [facility] Address: [address] [place] [address] Performed By: #### 2 4323-8 ####[facility]ORATORYCLIA [id number] [address] STATES OF [facility] Creatinine [Mass/Vol] 0.70 mg/dL Normal 0.58-0.96 [facility] Comment on above: Order Comment: Speci men Type: BLOOD SPECIMENOrdering Facility: [facility] Address: [address] [place] [address] Performed By: #### 2 4323-8 ####[facility]ORATORYCLIA [id number] [address] ESTIMATED GLOMERULAR FILTRATION RATE 100 mL/min/1.73m??? Normal >=60 [facility] Comment on above: Order Comment: Speci men Type: BLOOD SPECIMENOrdering Facility: [facility] Address: [address] [place] [address] Result Comment: Manasa mated Glomerular Filtration Rate (eGFR) is calculated using the 2020 CKD-EPI creatinine equation. This equation utilizes serum creatinine, sex, and age as parameters. The creatinine assay has traceable calibration to isotope dilution-mass spectrometry. Refer to KDIGO guidelines for clinical interpretation. In patients with unstable renal function, e.g. those with acute kidney injury, the eGFR may not accurately reflect actual GFR. Performed By: #### 2 4323-8 ####[facility]ORATORYCLIA [id number] [place] [address] [place] Glucose [Mass/Vol] 157 mg/dL High 74-99 [facility] Comment on above: Order Comment: Tawanda mosley Type: BLOOD SPECIMENOrdering Facility: [facility] Address: [address] [place] [address] Result Comment: The [place] [employer] (ADA) provides guidance for cutoff values for fasting glucose and random glucose. The ADA defines fasting as no caloric intake for at least 8 hours. Fasting plasma glucose results between 100 to 125 mg/dL indicate increased risk for diabetes (prediabetes).Fasting plasma glucose results greater than or equal to 126 mg/dL meet the criteria for diagnosis of diabetes. In the absence of unequivocal hyperglycemia, results should be confirmed by repeat testing. In a patient with classic symptoms of hyperglycemia or hyperglycemic crisis, random plasma glucose results greater than or equal to 200 mg/dL meet the criteria for diagnosis of diabetes.Reference: Standards of Medical Care in Diabetes 2016, [place] [employer] Association. Diabetes Care. 2016.39(Suppl 1). Performed By: #### 2 4323-8 ####[facility] LABORATORYCLIA [id number] [place] [address] [place] Potassium [Moles/Vol] 4.2 mmol/L Normal 3.7-5.1 [facility] Comment on above: Order Comment: Tawanda mosley Type: BLOOD SPECIMENOrdering Facility: [facility] Address: [address] [address] Performed By: #### 2 4323-8 ####[facility] LABORATORYCLIA [id number] [place] [address] [place] Protein [Mass/Vol] 6.5 g/dL Normal 6.3-8.0 [facility] Comment on above: Order Comment: Tawanda mosley Type: BLOOD SPECIMENOrdering Facility: [facility] Address: [address] [address] Performed By: #### 2 4323-8 ####[facility] LABORATORYCLIA [id number] [place] [address] [place] Sodium [Moles/Vol] 142 mmol/L Normal 136-144 [facility] Comment on above: Order Comment: Speci men Type: BLOOD SPECIMENOrdering Facility: [facility] Address: [address] [place] [address] Performed By: #### 2 4323-8 ####[facility] LABORATORYCLIA [id number] [place] [address] [place] Urea nitrogen [Mass/Vol] 9 mg/dL Normal 7-21 [facility] Comment on above: Order Comment: Speci men Type: BLOOD SPECIMENOrdering Facility: [facility] Address: [address] [place] [address] Performed By: #### 2 4323-8 ####[facility] LABORATORYCLIA [id number] [place] [address] [place] ALLIED HEALTHon 10-05-2022 ALLIED HEALTH Normal [facility] Basic metabolic 2000 panelon 10-05-2022 Anion gap [Moles/Vol] 10 mmol/L Normal 9-18 [facility] Comment on above: Order Comment: Speci men Type: BLOOD SPECIMENOrdering Facility: [facility] Address: [address] [place] [address] Performed By: #### 1 9123-9, 48812-2 ####[facility] LABORATORYCLIA [id number] [place] [address] [place] Calcium [Mass/Vol] 8.6 mg/dL Normal 8.5-10.2 [facility] Comment on above: Order Comment: Speci men Type: BLOOD SPECIMENOrdering Facility: [facility] Address: [address] [place] [address] Performed By: #### 1 9123-9, 99169-1 ####[facility] LABORATORYCLIA [id number] [place] [address] [place] Chloride [Moles/Vol] 104 mmol/L Normal 97-105 [facility] Comment on above: Order Comment: Speci men Type: BLOOD SPECIMENOrdering Facility: [facility] Address: [address] [place] [address] Performed By: #### 1 91239, 28717-3 ####[facility] SERVICESCLIA [id number] [address] [place] CO2 [Moles/Vol] 26 mmol/L Normal 22-30 [facility] Comment on above: Order Comment: Speci men Type: BLOOD SPECIMENOrdering Facility: [facility] Address: [address] [place] [address] Performed By: #### 1 91, ####[facility] HOSPITALIA [id number] [address] Creatinine [Mass/Vol] 0.63 mg/dL Normal 0.58-0.96 [facility] Comment on above: Order Comment: Speci men Type: BLOOD SPECIMENOrdering Facility: [facility] Address: [address] [place] [address] Performed By: #### 1 91239, ####[facility] HOSPITALIA [id number] [address] ESTIMATED GLOMERULAR FILTRATION RATE 103 mL/min/1.73m??? Normal >=60 [facility] Comment on above: Order Comment: Speci men Type: BLOOD SPECIMENOrdering Facility: [facility] Address: [address] [place] [address] Result Comment: Manasa mated Glomerular Filtration Rate (eGFR) is calculated using the 2020 CKD-EPI creatinine equation. This equation utilizes serum creatinine, sex, and age as parameters. The creatinine assay has traceable calibration to isotope dilution-mass spectrometry. Refer to KDIGO guidelines for clinical interpretation. In patients with unstable renal function, e.g. those with acute kidney injury, the eGFR may not accurately reflect actual GFR. Performed By: #### 1 9123-9, 09095-5 ####[facility] LABORATORYCLIA [id number] [place] [address] [place] Glucose [Mass/Vol] 134 mg/dL High 74-99 [facility] Comment on above: Order Comment: Tawanda mosley Type: BLOOD SPECIMENOrdering Facility: [facility] Address: [address] [address] Result Comment: The [place] [employer] (ADA) provides guidance for cutoff values for fasting glucose and random glucose. The ADA defines fasting as no caloric intake for at least 8 hours. Fasting plasma glucose results between 100 to 125 mg/dL indicate increased risk for diabetes (prediabetes).Fasting plasma glucose results greater than or equal to 126 mg/dL meet the criteria for diagnosis of diabetes. In the absence of unequivocal hyperglycemia, results should be confirmed by repeat testing. In a patient with classic symptoms of hyperglycemia or hyperglycemic crisis, random plasma glucose results greater than or equal to 200 mg/dL meet the criteria for diagnosis of diabetes.Reference: Standards of Medical Care in Diabetes 2016, [employer]. Diabetes Care. 2016.39(Suppl 1). Performed By: #### 1 9123-9, 00564-8 ####[facility] LABORATORYCLIA [id number] [place] [address] [place] Potassium [Moles/Vol] 3.8 mmol/L Normal 3.7-5.1 [facility] Comment on above: Order Comment: Tawanda mosley Type: BLOOD SPECIMENOrdering Facility: [facility] Address: [address] [place] [address] Performed By: #### 1 9123-9, 70142-5 ####[facility] LABORATORYCLIA [id number] [place] [address] [place] Sodium [Moles/Vol] 140 mmol/L Normal 136-144 [facility] Comment on above: Order Comment: Tawanda mosley Type: BLOOD SPECIMENOrdering Facility: [facility] Address: [address] [place] [address] Performed By: #### 1 9123-9, 19037-6 ####[facility] LABORATORYCLIA [id number] [place] [address] [place] Urea nitrogen [Mass/Vol] 7 mg/dL Normal 7-21 [facility] Comment on above: Order Comment: Speci men Type: BLOOD SPECIMENOrdering Facility: [facility] Address: [address] [place] [address] Performed By: #### 1 9123-9, 26008-7 ####[facility]ORATORYCLIA [id number] [place] [address] [place] CBC W Auto Differential pane l (Bld)on 10-05-2022 Basophils (Bld) [#/Vol] 0.11 10*3/uL High <0.11 [facility] Comment on above: Order Comment: Speci men Type: BLOOD SPECIMENOrdering Facility: [facility] Address: [address] [place] [address] Performed By: #### 5 7021-8 ####[facility]ORATORYCLIA [id number] [address] [place] Basophils/100 WBC (Bld) 1.1 % Normal [facility] Comment on above: Order Comment: Speci men Type: BLOOD SPECIMENOrdering Facility: [facility] Address: [address] [place] [address] Performed By: #### 5 7021-8 ####[facility]ORATORYCLIA [id number] [address] Differential cell count method Nom (Bld) Auto Normal [facility] Comment on above: Order Comment: Speci men Type: BLOOD SPECIMENOrdering Facility: [facility] Address: [address] [place] [address] Performed By: #### 5 7021-8 ####[facility]ORATORYCLIA [id number] [place] [address] [place] Eosinophils (Bld) [#/Vol] 0.30 10*3/uL Normal <0.46 [facility] Comment on above: Order Comment: Speci men Type: BLOOD SPECIMENOrdering Facility: [facility] Address: [address] [place] [address] Performed By: #### 5 7021-8 ####[facility]ORYCLIA [id number] [address] STATES [facility] Eosinophils/100 WBC (Bld) 2.9 % Normal [facility] Comment on above: Order Comment: Speci men Type: BLOOD SPECIMENOrdering Facility: [facility] Address: [address] [place] [address] Performed By: #### 5 7021-8 ####[facility] LABORATORYCLIA [id number] [address] STATES OF [facility] Erythrocyte distribution width (RBC) [Ratio] 13.2 % Normal 11.5-15.0 [facility] Comment on above: Order Comment: Speci men Type: BLOOD SPECIMENOrdering Facility: [facility] Address: [address] [place] [address] Performed By: #### 5 7021-8 ####[facility]ORATORYCLIA [id number] [address] [place] Hematocrit (Bld) [Volume fraction] 39.2 % Normal 36.0-46.0 [facility] Comment on above: Order Comment: Speci men Type: BLOOD SPECIMENOrdering Facility: [facility] Address: [address] [place] [address] Performed By: #### 5 7021-8 ####[facility]ATORYCLIA [id number] [address] [place] Hemoglobin (Bld) [Mass/Vol] 12.7 g/dL Normal 11.5-15.5 [facility] Comment on above: Order Comment: Speci men Type: BLOOD SPECIMENOrdering Facility: [facility] Address: [address] [place] [address] Performed By: #### 5 7021-8 ####[facility]ATORYCLIA [id number] [address] Immature granulocytes (Bld) [#/Vol] 0.05 10*3/uL Normal <0.10 [facility] Comment on above: Order Comment: Speci men Type: BLOOD SPECIMENOrdering Facility: [facility] Address: [address] [address] Performed By: #### 5 7021-8 ####[facility]ATORYCLIA [id number] [address] Immature granulocytes/100 WBC (Bld) 0.5 % Normal [facility] Comment on above: Order Comment: Speci men Type: BLOOD SPECIMENOrdering Facility: [facility] Address: [address] [place] [address] Performed By: #### 5 7021-8 ####[facility]ORATORYCLIA [id number] [address] [place] Lymphocytes (Bld) [#/Vol] 3.30 10*3/uL Normal 1.00-4.00 [facility] Comment on above: Order Comment: Speci men Type: BLOOD SPECIMENOrdering Facility: [facility] Address: [address] [place] [address] Performed By: #### 5 7021-8 ####[facility]ATORYCLIA [id number] [address] Lymphocytes/100 WBC (Bld) 31.6 % Normal [facility] Comment on above: Order Comment: Speci men Type: BLOOD SPECIMENOrdering Facility: [facility] Address: [address] [place] [address] Performed By: #### 5 7021-8 ####[facility]ATORYCLIA [id number] [address] [place] MCH (RBC) [Entitic mass] 27.9 pg Normal 26.0-34.0 [facility] Comment on above: Order Comment: Speci men Type: BLOOD SPECIMENOrdering Facility: [facility] Address: [address] [place] [address] Performed By: #### 5 7021-8 ####[facility]ATORYCLIA [id number] [address] [place] MCHC (RBC) [Mass/Vol] 32.4 g/dL Normal 30.5-36.0 [facility] Comment on above: Order Comment: Speci men Type: BLOOD SPECIMENOrdering Facility: [facility] Address: [address] [place] [address] Performed By: #### 5 7021-8 ####[facility]ORATORYCLIA [id number] [address] [place] MCV (RBC) [Entitic vol] 86.0 fL Normal 80.0-100.0 [facility] Comment on above: Order Comment: Speci men Type: BLOOD SPECIMENOrdering Facility: [facility] Address: [address] [place] [address] Performed By: #### 5 7021-8 ####[facility]ATORYCLIA [id number] [address] [place] Monocytes (Bld) [#/Vol] 0.97 10*3/uL High <0.87 [facility] Comment on above: Order Comment: Speci men Type: BLOOD SPECIMENOrdering Facility: [facility] Address: [address] [place] [address] Performed By: #### 5 7021-8 ####[facility]ORATORYCLIA [id number] [address] [place] Monocytes/100 WBC (Bld) 9.3 % Normal [facility] Comment on above: Order Comment: Speci men Type: BLOOD SPECIMENOrdering Facility: [facility] Address: [address] [place] [address] Performed By: #### 5 7021-8 ####[facility]ATORYCLIA [id number] [address] [place] Neutrophils (Bld) [#/Vol] 5.71 10*3/uL Normal 1.45-7.50 [facility] Comment on above: Order Comment: Speci men Type: BLOOD SPECIMENOrdering Facility: [facility] Address: [address] [place] [address] Performed By: #### 5 7021-8 ####[facility]ATORYCLIA [id number] [address] [place] Neutrophils/100 WBC (Bld) 54.6 % Normal [facility] Comment on above: Order Comment: Speci men Type: BLOOD SPECIMENOrdering Facility: [facility] Address: [address] [place] [address] Performed By: #### 5 7021-8 ####[facility]ATORYCLIA [id number] [address] [place] Nucleated RBC (Bld) [#/Vol] 10*3/uL Normal <0.01 [facility] Comment on above: Order Comment: Speci men Type: BLOOD SPECIMENOrdering Facility: [facility] Address: [address] [place] [address] Performed By: #### 5 7021-8 ####[facility]ATORYCLIA [id number] [address] OF [facility] Nucleated RBC/100 WBC (Bld) [Ratio] 0.0 /100 WBC Normal [facility] Comment on above: Order Comment: Speci men Type: BLOOD SPECIMENOrdering Facility: [facility] Address: [address] [place] [address] Performed By: #### 5 7021-8 ####[facility]ATORYCLIA [id number] [address] [place] Platelet mean volume (Bld) [Entitic vol] 10.3 fL Normal 9.0-12.7 [facility] Comment on above: Order Comment: Speci men Type: BLOOD SPECIMENOrdering Facility: [facility] Address: [address] [place] [address] Performed By: #### 5 7021-8 ####[facility]ATORYCLIA [id number] [address] [place] Platelets (Bld) [#/Vol] 221 10*3/uL Normal 150-400 [facility] Comment on above: Order Comment: Speci men Type: BLOOD SPECIMENOrdering Facility: [facility] Address: [address] [place] [address] Performed By: #### 5 7021-8 ####[facility]ATORYCLIA [id number] [address] [place] RBC (Bld) [#/Vol] 4.56 10*6/uL Normal 3.90-5.20 [facility] Comment on above: Order Comment: Speci men Type: BLOOD SPECIMENOrdering Facility: [facility] Address: [address] [place] [address] Performed By: #### 5 7021-8 ####[facility]ATORYCLIA [id number] [address] [place] WBC (Bld) [#/Vol] 10.44 10*3/uL Normal 3.70-11.00 [facility] Comment on above: Order Comment: Speci men Type: BLOOD SPECIMENOrdering Facility: [facility] Address: [address] [place] [address] Performed By: #### 5 7021-8 ####[facility]ATORYCLIA [id number] [address] STATES [facility] Basophils (Bld) [#/Vol] 0.11 10*3/uL High <0.11 [facility] Comment on above: Order Comment: Speci men Type: BLOOD SPECIMENOrdering Facility: [facility] Address: [address] [place] [address] Performed By: #### 5 7021-8 ####[facility]ATORYCLIA [id number] [address] Basophils/100 WBC (Bld) 0.8 % Normal [facility] Comment on above: Order Comment: Speci men Type: BLOOD SPECIMENOrdering Facility: [facility] Address: [address] [place] [address] Performed By: #### 5 7021-8 ####[facility]ATORYCLIA [id number] [address] [place] Differential cell count method Nom (Bld) Auto Normal [facility] Comment on above: Order Comment: Speci men Type: BLOOD SPECIMENOrdering Facility: [facility] Address: [address] [address] Performed By: #### 5 7021-8 ####[facility]ATORYCLIA [id number] [address] Eosinophils (Bld) [#/Vol] 0.29 10*3/uL Normal <0.46 [facility] Comment on above: Order Comment: Speci men Type: BLOOD SPECIMENOrdering Facility: [facility] Address: [address] [address] Performed By: #### 5 7021-8 ####[facility]ATORYCLIA [id number] [address] Eosinophils/100 WBC (Bld) 2.0 % Normal [facility] Comment on above: Order Comment: Speci men Type: BLOOD SPECIMENOrdering Facility: [facility] Address: [address] [place] [address] Performed By: #### 5 7021-8 ####[facility]ATORYCLIA [id number] [address] [place] Erythrocyte distribution width (RBC) [Ratio] 13.2 % Normal 11.5-15.0 [facility] Comment on above: Order Comment: Speci men Type: BLOOD SPECIMENOrdering Facility: [facility] Address: [address] [place] [address] Performed By: #### 5 7021-8 ####[facility]ATORYCLIA [id number] [address] Hematocrit (Bld) [Volume fraction] 41.2 % Normal 36.0-46.0 [facility] Comment on above: Order Comment: Speci men Type: BLOOD SPECIMENOrdering Facility: [facility] Address: [address] [place] [address] Performed By: #### 5 7021-8 ####[facility]ATORYCLIA [id number] [address] [place] Hemoglobin (Bld) [Mass/Vol] 13.1 g/dL Normal 11.5-15.5 [facility] Comment on above: Order Comment: Speci men Type: BLOOD SPECIMENOrdering Facility: [facility] Address: [address] [place] [address] Performed By: #### 5 7021-8 ####[facility]ORATORYCLIA [id number] [place] [address] [place] Immature granulocytes (Bld) [#/Vol] 0.08 10*3/uL Normal <0.10 [facility] Comment on above: Order Comment: Speci men Type: BLOOD SPECIMENOrdering Facility: [facility] Address: [address] [place] [address] Performed By: #### 5 7021-8 ####[facility]ATORYCLIA [id number] [address] [place] Immature granulocytes/100 WBC (Bld) 0.5 % Normal [facility] Comment on above: Order Comment: Speci men Type: BLOOD SPECIMENOrdering Facility: [facility] Address: [address] [place] [address] Performed By: #### 5 7021-8 ####[facility]ATORYCLIA [id number] [address] [place] Lymphocytes (Bld) [#/Vol] 4.88 10*3/uL High 1.00-4.00 [facility] Comment on above: Order Comment: Speci men Type: BLOOD SPECIMENOrdering Facility: [facility] Address: [address] [place] [address] Performed By: #### 5 7021-8 ####[facility]ATORYCLIA [id number] [address] [place] Lymphocytes/100 WBC (Bld) 33.5 % Normal [facility] Comment on above: Order Comment: Speci men Type: BLOOD SPECIMENOrdering Facility: [facility] Address: [address] [place] [address] Performed By: #### 5 7021-8 ####[facility]ATORYCLIA [id number] [address] MCH (RBC) [Entitic mass] 27.3 pg Normal 26.0-34.0 [facility] Comment on above: Order Comment: Speci men Type: BLOOD SPECIMENOrdering Facility: [facility] Address: [address] [place] [address] Performed By: #### 5 7021-8 ####[facility]ATORYCLIA [id number] [address] MCHC (RBC) [Mass/Vol] 31.8 g/dL Normal 30.5-36.0 [facility] Comment on above: Order Comment: Speci men Type: BLOOD SPECIMENOrdering Facility: [facility] Address: [address] [place] [address] Performed By: #### 5 7021-8 ####[facility]ATORYCLIA [id number] [address] STATES [facility] MCV (RBC) [Entitic vol] 85.8 fL Normal 80.0-100.0 [facility] Comment on above: Order Comment: Speci men Type: BLOOD SPECIMENOrdering Facility: [facility] Address: [address] [place] [address] Performed By: #### 5 7021-8 ####[facility]ORATORYCLIA [id number] [address] STATES OF [facility] Monocytes (Bld) [#/Vol] 1.04 10*3/uL High <0.87 [facility] Comment on above: Order Comment: Speci men Type: BLOOD SPECIMENOrdering Facility: [facility] Address: [address] [place] [address] Performed By: #### 5 7021-8 ####[facility]ATORYCLIA [id number] [address] Monocytes/100 WBC (Bld) 7.1 % Normal [facility] Comment on above: Order Comment: Speci men Type: BLOOD SPECIMENOrdering Facility: [facility] Address: [address] [address] Performed By: #### 5 7021-8 ####[facility]ATORYCLIA [id number] [address] [place] Neutrophils (Bld) [#/Vol] 8.17 10*3/uL High 1.45-7.50 [facility] Comment on above: Order Comment: Speci men Type: BLOOD SPECIMENOrdering Facility: [facility] Address: [address] [place] [address] Performed By: #### 5 7021-8 ####[facility]ATORYCLIA [id number] [address] Neutrophils/100 WBC (Bld) 56.1 % Normal [facility] Comment on above: Order Comment: Speci men Type: BLOOD SPECIMENOrdering Facility: [facility] Address: [address] [place] [address] Performed By: #### 5 7021-8 ####[facility]ATORYCLIA [id number] [address] [place] Nucleated RBC (Bld) [#/Vol] 10*3/uL Normal <0.01 [facility] Comment on above: Order Comment: Speci men Type: BLOOD SPECIMENOrdering Facility: [facility] Address: [address] [place] [address] Performed By: #### 5 7021-8 ####[facility]ATORYCLIA [id number] [address] [place] Nucleated RBC/100 WBC (Bld) [Ratio] 0.0 /100 WBC Normal [facility] Comment on above: Order Comment: Speci men Type: BLOOD SPECIMENOrdering Facility: [facility] Address: [address] [place] [address] Performed By: #### 5 7021-8 ####[facility]ATORYCLIA [id number] [address] [place] Platelet mean volume (Bld) [Entitic vol] 10.6 fL Normal 9.0-12.7 [facility] Comment on above: Order Comment: Speci men Type: BLOOD SPECIMENOrdering Facility: [facility] Address: [address] [place] [address] Performed By: #### 5 7021-8 ####[facility]ATORYCLIA [id number] [address] [place] Platelets (Bld) [#/Vol] 294 10*3/uL Normal 150-400 [facility] Comment on above: Order Comment: Speci men Type: BLOOD SPECIMENOrdering Facility: [facility] Address: [address] [place] [address] Performed By: #### 5 7021-8 ####[facility]ORATORYCLIA [id number] [place] [address] [place] RBC (Bld) [#/Vol] 4.80 10*6/uL Normal 3.90-5.20 [facility] Comment on above: Order Comment: Speci men Type: BLOOD SPECIMENOrdering Facility: [facility] Address: [address] [place] [address] Performed By: #### 5 7021-8 ####[facility]ORATORYCLIA [id number] [address] STATES OF [facility] WBC (Bld) [#/Vol] 14.57 10*3/uL High 3.70-11.00 [facility] Comment on above: Order Comment: Speci men Type: BLOOD SPECIMENOrdering Facility: [facility] Address: [address] [place] [address] Performed By: #### 5 7021-8 ####[facility]ORATORYCLIA [id number] [address] [place] CONSULTon 10-05-2022 CONSULT Normal [facility] CRP SerPl-mCncon 10-05-2022 CRP [Mass/Vol] 1.1 mg/dL High <0.9 [facility] Comment on above: Order Comment: Speci men Type: BLOOD SPECIMENOrdering Facility: [facility] Address: [address] [place] [address] Performed By: #### 2 4323-02, 1987-11 ####[facility]ORATORYCLIA [id number] [address] OF [facility] Comprehensive metabolic 2000 panelon 10-05-2022 Albumin [Mass/Vol] 4.1 g/dL Normal 3.9-4.9 [facility] Comment on above: Order Comment: Speci men Type: BLOOD SPECIMENOrdering Facility: [facility] Address: [address] [place] [address] Performed By: #### 2 4323-02, 1987-11 ####[facility]ORATORYCLIA [id number] [address] STATES OF [facility] ALP [Catalytic activity/Vol] 105 U/L Normal 34-123 [facility] Comment on above: Order Comment: Speci men Type: BLOOD SPECIMENOrdering Facility: [facility] Address: [address] [place] [address] Performed By: #### 2 4323-02, 1987-11 ####[facility]ORATORYCLIA [id number] [address] STATES [facility] ALT With P-5'-P [Catalytic activity/Vol] 31 U/L Normal 7-38 [facility] Comment on above: Order Comment: Speci men Type: BLOOD SPECIMENOrdering Facility: [facility] Address: [address] [place] [address] Performed By: #### 2 4323-02, 1987-11 ####[facility]ORATORYCLIA [id number] [address] STATES OF [facility] Anion gap [Moles/Vol] 10 mmol/L Normal 9-18 [facility] Comment on above: Order Comment: Speci men Type: BLOOD SPECIMENOrdering Facility: [facility] Address: [address] [place] [address] Performed By: #### 2 4323-02, 1987-11 ####[facility]ORATORYCLIA [id number] [address] [place] AST With P-5'-P [Catalytic activity/Vol] 35 U/L Normal 13-35 [facility] Comment on above: Order Comment: Speci men Type: BLOOD SPECIMENOrdering Facility: [facility] Address: [address] [place] [address] Performed By: #### 2 4323-02, 1987-11 ####[facility]ATORYCLIA [id number] [place] [address] [place] Bilirubin [Mass/Vol] 0.4 mg/dL Normal 0.2-1.3 [facility] Comment on above: Order Comment: Speci men Type: BLOOD SPECIMENOrdering Facility: [facility] Address: [address] [place] [address] Performed By: #### 2 4323-02, 1987-11 ####[facility] LABORATORYCLIA [id number] [place] [address] [place] Calcium [Mass/Vol] 9.1 mg/dL Normal 8.5-10.2 [facility] Comment on above: Order Comment: Speci men Type: BLOOD SPECIMENOrdering Facility: [facility] Address: [address] [place] [address] Performed By: #### 2 4323-02, 1987-11 ####[facility]ORATORYCLIA [id number] [place] [address] [place] Chloride [Moles/Vol] 103 mmol/L Normal 97-105 [facility] Comment on above: Order Comment: Speci men Type: BLOOD SPECIMENOrdering Facility: [facility] Address: [address] [place] [address] Performed By: #### 2 4323-02, 1987-11 ####[facility]ORATORYCLIA [id number] [place] [address] [place] CO2 [Moles/Vol] 26 mmol/L Normal 22-30 [facility] Comment on above: Order Comment: Speci men Type: BLOOD SPECIMENOrdering Facility: [facility] Address: [address] [place] [address] Performed By: #### 2 4323, 1987-11 ####[facility] SERVICESCLIA [id number] [place] [address] [place] Creatinine [Mass/Vol] 0.69 mg/dL Normal 0.58-0.96 [facility] Comment on above: Order Comment: Speci melany Type: BLOOD SPECIMENOrdering Facility: [facility] Address: [address] [place], [place] [id number] Performed By: #### 2 43209-18, 1987-11 ####[facility] SERVICESCLIA [id number] [place] [address] [facility] ESTIMATED GLOMERULAR FILTRATION RATE 101 mL/min/1.73m??? Normal >=60 [facility] Comment on above: Order Comment: Tawanda mosley Type: BLOOD SPECIMENOrdering Facility: [facility] Address: [address] [place] [address] Result Comment: Manasa mated Glomerular Filtration Rate (eGFR) is calculated using the 2020 CKD-EPI creatinine equation. This equation utilizes serum creatinine, sex, and age as parameters. The creatinine assay has traceable calibration to isotope dilution-mass spectrometry. Refer to KDIGO guidelines for clinical interpretation. In patients with unstable renal function, e.g. those with acute kidney injury, the eGFR may not accurately reflect actual GFR. Performed By: #### 2 4323, 1987-11 ####[facility] SERVICESCLIA [id number] [place] [address] [place] Glucose [Mass/Vol] 117 mg/dL High 74-99 [facility] Comment on above: Order Comment: Tawanda melany Type: BLOOD SPECIMENOrdering Facility: [facility] Address: [address] [place] [address] Result Comment: The [place] Diabetes Association (ADA) provides guidance for cutoff values for fasting glucose and random glucose. The ADA defines fasting as no caloric intake for at least 8 hours. Fasting plasma glucose results between 100 to 125 mg/dL indicate increased risk for diabetes (prediabetes).Fasting plasma glucose results greater than or equal to 126 mg/dL meet the criteria for diagnosis of diabetes. In the absence of unequivocal hyperglycemia, results should be confirmed by repeat testing. In a patient with classic symptoms of hyperglycemia or hyperglycemic crisis, random plasma glucose results greater than or equal to 200 mg/dL meet the criteria for diagnosis of diabetes.Reference: Standards of Medical Care in Diabetes 2016, [place] Diabetes Association. Diabetes Care. 2016.39(Suppl 1). Performed By: #### 2 4323-02, 1987-11 ####[facility] LABORATORYCLIA [id number] [place] [address] [place] Potassium [Moles/Vol] 3.8 mmol/L Normal 3.7-5.1 [facility] Comment on above: Order Comment: Speci men Type: BLOOD SPECIMENOrdering Facility: [facility] Address: [address] [place] [address] Performed By: #### 2 4323-02, 1987-11 ####[facility] LABORATORYCLIA [id number] [place] [address] [place] Protein [Mass/Vol] 7.3 g/dL Normal 6.3-8.0 [facility] Comment on above: Order Comment: Speci men Type: BLOOD SPECIMENOrdering Facility: [facility] Address: [address] [address] Performed By: #### 2 4323-02, 1987-11 ####[facility] LABORATORYCLIA [id number] [place] [address] [place] Sodium [Moles/Vol] 139 mmol/L Normal 136-144 [facility] Comment on above: Order Comment: Speci men Type: BLOOD SPECIMENOrdering Facility: [facility] Address: [address] [address] Performed By: #### 2 4323-02, 1987-11 ####[facility] LABORATORYCLIA [id number] [place] [address] [place] Urea nitrogen [Mass/Vol] 7 mg/dL Normal 7-21 [facility] Comment on above: Order Comment: Speci men Type: BLOOD SPECIMENOrdering Facility: [facility] Address: [address] [address] Performed By: #### 2 4323-8, 1987-11 ####[facility] LABORATORYCLIA [id number] [place] [address] [facility] ECG COMPLETEon 10-05-2022 ECG COMPLETE Normal [facility] ED NOTEon 10-05-2022 ED NOTE HNO ID: [id number] Author: Darinel Fitzgerald RN Service: Emergency Medicine Author Type: Registered Nurse Type: ED Notes Filed: 10/05/2022 6:21 PM Note Text: No answer for report on ready bed x2 Normal [facility] ED NOTE HNO ID: [id number] Author: Darinel Fitzgerald RN Service: Emergency Medicine Author Type: Registered Nurse Type: ED Notes Filed: 10/05/2022 6:03 PM Note Text: Given a meal tray at this time Normal [facility] ED NOTE HNO ID: [id number] Author: Clotilde Worley RN Service: Emergency Medicine Author Type: Registered Nurse Type: ED Notes Filed: 10/05/2022 1:08 PM Note Text: Pt given lunch tray and maureen crackers. Normal [facility] ED NOTE Normal [facility] ED NOTE HNO ID: [id number] Author: Solo Zuniga RN Service: Emergency Medicine Author Type: Registered Nurse Type: ED Notes Filed: 10/05/2022 1:54 AM Note Text: Pt given Ice packs to help with R arm discomfort [facility] ED NOTE HNO ID: [id number] Author: Lela Kirby RN Service: ? Author Type: Registered Nurse Type: ED Notes Filed: 10/05/2022 12:12 AM Note Text: Bed: 35-ED Expected date: Expected time: Means of arrival: Comments: SQUAD Normal [facility] ED PROV NOTEon 10-05-2022 ED PROV NOTE Normal [facility] ED Triage Noteon 10-05-2022 ED Triage Note Normal [facility] HISTORY PHYSICALon HISTORY PHYSICAL Normal [facility] Magnesium SerPl-mCncon 10-05 Magnesium [Mass/Vol] 2.0 mg/dL Normal 1.7-2.3 [facility] Comment on above: Order Comment: Speci men Type: BLOOD SPECIMENOrdering Facility: [facility] Address: [facility] [place] [address] Performed By: #### 1 9123-9, 82099-2 ####[facility] LABORATORYCLIA [id number] [place] [address] [place] XR FOREARM 2V AP/LAT RTon XR FOREARM 2V AP/LAT RT Normal [facility] XR WRIST 4V PA/LAT/OBL/SCAPH RTon 10-05-2022 XR WRIST 4V PA/LAT/OBL/SCAPH RT Normal [facility] CNOVon 10-04-2022 CNOV Normal [facility] CNPNon 08-24-2022 CNPN Telephone (PODCCP) PARDEEP MARK ([id number]) 1965 F Date Time Provider Department 08/24/22 TAMMY KARIMI PODCCP During your visit today, we recorded the following information about you: Brandon Acevedo 08/24/2022 9:59 AM Signed PATIENT INFORMATION Record ID: [id number] Patient Name: Pardeep Mark Hospital: [facility] [place]: [facility] Attending: Yola Boyd Center: Hospital Medicine INSTRUCTIONS All Clear SN to remind patient of next upcoming appointment date, time, location All Clear All Clear All Clear SURVEY INFORMATION Medical/Nurse Plunger Machine Operator: Brandon Mas 1. Your discharge instructions are important in guiding you through the recovery process. Is there anything I could help you clarify on your discharge instructions? (Standard Question) No 2. Do you have your follow up appointment related to your hospital stay scheduled within the next 30 days? (Standard Question) Yes 3. Do you have all the necessary equipment and supplies at home? (Standard Question) Yes 4. Many patients have concerns about their medications once they are home. Do you have any questions about getting or taking your medications? (Standard Question) No 5. Do you have any new or different symptoms? (Standard Question) No Allergies As of Date: 08/24/2022 Noted Allergy Reaction PHENOTHIAZINES 03/31/2003 Comments: compazine - shaking PROCHLORPERAZINE 08/02/2005 PROMETHAZINE 08/02/2005 7 - Swelling REGLAN (METOCLOPRAMIDE HCL) 08/12/2005 Comments: SHAKING Date Reviewed: 08/17/2022 Reviewed by: Shanta Kerns RN - Fully Assessed Reason for Visit: Follow Up Phone Call [[phone]] Cmt: All Clear Prescriptions as of 08/24/2022 - buprenorphine SL (SUBUTEX) 2 mg subl Dissolve 1 tablet under the tongue twice daily for 60 days. - pregabalin (LYRICA) 100 mg capsule Take 1 capsule by mouth three times daily for 60 days. - levETIRAcetam (KEPPRA) 750 mg tablet Take 1 tablet by mouth twice daily. - Gauze Bandage (KERLIX) 3.4 X 3.6 -yard bndg Apply 1 application to affected area three times daily. - QUEtiapine (SEROQUEL) 300 mg tablet Take 1 tablet by mouth daily at bedtime. - carvedilol (COREG) 6.25 mg tablet Take 6.25 mg by mouth twice daily with meals. - aspirin, enteric coated (ASPIRIN, ENTERIC COATED) 81 mg EC tablet Take 81 mg by mouth once daily. - Multivitamin capsule Take 1 capsule by mouth once daily. - Melatonin 5 mg cap Take 2 capsules by mouth daily at bedtime. - DULoxetine (CYMBALTA) 30 mg capsule Take 1 capsule by mouth once daily. - DULoxetine (CYMBALTA) 60 mg capsule Take 1 capsule by mouth once daily. - naloxone 4 mg/actuation nasal spray (NARCAN) Use 1 spray in one nostril as needed for overdose. 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] 11/10/2003 OPEN WOUND OF LEG NEC [S81.809A] 12/26/2003 PYOGEN ARTHRITIS NEC [M00.9] 05/31/2004 Localization-related focal epilepsy with simple* Surgical wound infection [T81.49XA] Difficulty walking [R26.2] 10/26/2009 Pain Following Surgery or Procedure [G89.18] 11/08/2009 Opioid dependence (HCC) [F11.20] 05/22/2010 Pain disorder [R52] 10/31/2010 Amputation of leg [S88.919A] 12/28/2012 Compartment syndrome of forearm (HCC) [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 [place] 08-21-2022 CNPN Telephone ([facility]) PARDEEP MARK ([id number]) 1965 F Date Time Provider Department 08/21/22 YOLA LEGGETT [facility] During your visit today, we recorded the following information about you: Alona Amanuel 08/21/2022 3:14 PM Signed Pt called to let you know she didn't OD, she had a stroke. Her family jumped to conclusions. She was taking her medication as prescribed. You should be able to see her records re the stroke line they found in the MRI. Pt is being [facility] [place] and they are prescribing her Keppra. Pt has been able to reduce her Suboxone to 4 mg twice daily Pt said Dr. Fuchs is retiring, he reduced his schedule to 3 days a week. Pt said she needs a psychiatrist and a pain management doctor. Are you able to take her on as a patient? If not, she is open to a referral. Pardeep [phone] Johnson Zhu Alona Amanuel 08/22/2022 2:50 PM Signed Pt called to check on status of her message. Pt said she didn't get any closure with you, she was planning on coming back to be your patient as you are the only one that understands the detox program she went through with getting off the pain meds and going to the buprenorphine. You are the only psychiatrist that has really been a psychiatrist in the last 10 years of her life. Please advise on previous message. Thank you Johnson Zhu Alona Amanuel 08/26/2022 4:28 PM Signed Pt would like to know if you will take her on as a patient again? Please review previous messages below and advise. Thank you Johnson Zhu MD 08/26/2022 8:06 PM Signed She's been seeing Yola Boyd, who is an internal medicine provider at [facility]. I would recommend she seek a new psychiatrist at [facility]. [place] is only 45 mins from [place], as opposed to over 1 [place] to [place]. Phone number is [phone]. With the departure of our ORTHOPEDIC TECHNICIAN and Dr. Murrieta, I am not in a position to take on more outpatients. Sornurys. Alona Vital 08/27/2022 10:28 AM Signed I called pt and informed her of dr's message. Pt voiced understanding. Pt said you were one of her favorite dr's. Pt will reach out [facility]. Kya Vital, Med Sec Allergies As of Date: 08/21/2022 Noted Allergy Reaction PHENOTHIAZINES 03/31/2003 Comments: compazine - shaking PROCHLORPERAZINE 08/02/2005 PROMETHAZINE 08/02/2005 7 - Swelling REGLAN (METOCLOPRAMIDE HCL) 08/12/2005 Comments: SHAKING Date Reviewed: 08/17/2022 Reviewed by: Shanta Kerns RN - Fully Assessed Reason for Visit: Patient Update [1234] Prescriptions as of 08/27/2022 - buprenorphine SL (SUBUTEX) 2 mg subl Dissolve 1 tablet under the tongue twice daily for 60 days. - pregabalin (LYRICA) 100 mg capsule Take 1 capsule by mouth three times daily for 60 days. - levETIRAcetam (KEPPRA) 750 mg tablet Take 1 tablet by mouth twice daily. - Gauze Bandage (KERLIX) 3.4 X 3.6 -yard bndg Apply 1 application to affected area three times daily. - QUEtiapine (SEROQUEL) 300 mg tablet Take 1 tablet by mouth daily at bedtime. - carvedilol (COREG) 6.25 mg tablet Take 6.25 mg by mouth twice daily with meals. - aspirin, enteric coated (ASPIRIN, ENTERIC COATED) 81 mg EC tablet Take 81 mg by mouth once daily. - Multivitamin capsule Take 1 capsule by mouth once daily. - Melatonin 5 mg cap Take 2 capsules by mouth daily at bedtime. - DULoxetine (CYMBALTA) 30 mg capsule Take 1 capsule by mouth once daily. - DULoxetine (CYMBALTA) 60 mg capsule Take 1 capsule by mouth once daily. - naloxone 4 mg/actuation nasal spray (NARCAN) Use 1 spray in one nostril as needed for overdose. 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] 11/10/2003 OPEN WOUND OF LEG NEC [S81.809A] 12/26/2003 PYOGEN ARTHRITIS NEC [M00.9] 05/31/2004 Localization-related focal epilepsy with simple* Surgical wound infection [T81.49XA] Difficulty walking [R26.2] 10/26/2009 Pain Following Surgery or Procedure [G89.18] 11/08/2009 Opioid dependence (HCC) [F11.20] 05/22/2010 Pain disorder [R52] 10/31/2010 Amputation of leg [S88.919A] 12/28/2012 Compartment syndrome of forearm (HCC) [T79.A19A]07/16/2022 07/17/2022 Obesity, Class I, BMI 30-34.9 [E66.9] 07/16/2022 Sepsis (HCC) [A41.9] 07/24/2022 Wound infection after surgery [T81.49XA] 07/24/2022 Leukocytosis [D72.829] 07/24/2022 Prolonged Q-T interval on ECG [R94.31] 07/24/2022 Postoperative wound dehiscence, initial encount*07/24/2022 Swelling of right hand [M79.89] 08/13/2022 Seizure disorder (HCC) [G40.909] 08/14/2022 Wound infection [T14.8XXA, L08.9] 08/14/2022 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 Normal [facility] CASE MANAGEMon 08-17-2022 CASE MANAGEM Normal [facility] CNDSon 08-17-2022 CNDS Normal [facility] NURSING PROGon 08-17-2022 NURSING PROG Normal [facility] CASE MANAGEMon 08-16-2022 CASE MANAGEM Normal [facility] CONSULT PROGon 08-16-2022 CONSULT PROG Normal [facility] CONSULT PROG Normal [facility] ECG COMPLETEon 08-16-2022 ECG COMPLETE Normal [facility] THERAPY NTon 08-16-2022 THERAPY NT Normal [facility] THERAPY NT Normal [facility] ALLIED HEALTHon 08-15-2022 ALLIED HEALTH Normal [facility] Basic metabolic 2000 panelon 08-15-2022 Anion gap [Moles/Vol] 10 mmol/L Normal 9-18 [facility] Comment on above: Order Comment: Speci men Type: BLOOD SPECIMENOrdering Facility: [facility] Address: [address] [place] [address] Performed By: #### 2 4321-2 ####[facility]ATORYCLIA [id number] [address] [place] Calcium [Mass/Vol] 9.0 mg/dL Normal 8.5-10.2 [facility] Comment on above: Order Comment: Speci men Type: BLOOD SPECIMENOrdering Facility: [facility] Address: [address] [place] [address] Performed By: #### 2 4321-2 ####[facility]ORATORYCLIA [id number] [address] [place] Chloride [Moles/Vol] 104 mmol/L Normal 97-105 [facility] Comment on above: Order Comment: Speci men Type: BLOOD SPECIMENOrdering Facility: [facility] Address: [address] [place] [address] Performed By: #### 2 4321-2 ####[facility] LABORATORYCLIA [id number] [address] [place] CO2 [Moles/Vol] 26 mmol/L Normal 22-30 [facility] Comment on above: Order Comment: Speci men Type: BLOOD SPECIMENOrdering Facility: [facility] Address: [address] [place] [address] Performed By: #### 2 4321-2 ####[facility] LABORATORYCLIA [id number] [address] [place] Creatinine [Mass/Vol] 0.77 mg/dL Normal 0.58-0.96 [facility] Comment on above: Order Comment: Speci men Type: BLOOD SPECIMENOrdering Facility: [facility] Address: [address] [place] [address] Performed By: #### 2 4321-2 ####[facility]ORATORYCLIA [id number] [place] [address] [place] ESTIMATED GLOMERULAR FILTRATION RATE 90 mL/min/1.73m??? Normal >=60 [facility] Comment on above: Order Comment: Tawanda mosley Type: BLOOD SPECIMENOrdering Facility: [facility] Address: [address] [place] [address] Result Comment: Manasa mated Glomerular Filtration Rate (eGFR) is calculated using the 2020 CKD-EPI creatinine equation. This equation utilizes serum creatinine, sex, and age as parameters. The creatinine assay has traceable calibration to isotope dilution-mass spectrometry. Refer to KDIGO guidelines for clinical interpretation. In patients with unstable renal function, e.g. those with acute kidney injury, the eGFR may not accurately reflect actual GFR. Performed By: #### 2 4321-2 ####[facility] LABORATORYCLIA [id number] [place] [address] [place] Glucose [Mass/Vol] 157 mg/dL High 74-99 [facility] Comment on above: Order Comment: Tawanda mosley Type: BLOOD SPECIMENOrdering Facility: [facility] Address: [address] [place] [address] Result Comment: The [place] Diabetes Association (ADA) provides guidance for cutoff values for fasting glucose and random glucose. The ADA defines fasting as no caloric intake for at least 8 hours. Fasting plasma glucose results between 100 to 125 mg/dL indicate increased risk for diabetes (prediabetes).Fasting plasma glucose results greater than or equal to 126 mg/dL meet the criteria for diagnosis of diabetes. In the absence of unequivocal hyperglycemia, results should be confirmed by repeat testing. In a patient with classic symptoms of hyperglycemia or hyperglycemic crisis, random plasma glucose results greater than or equal to 200 mg/dL meet the criteria for diagnosis of diabetes.Reference: Standards of Medical Care in Diabetes 2016, [place] [employer]. Diabetes Care. 2016.39(Suppl 1). Performed By: #### 2 4321-2 ####[facility] LABORATORYCLIA [id number] [place] [address] [place] Potassium [Moles/Vol] 3.4 mmol/L Low 3.7-5.1 [facility] Comment on above: Order Comment: Tawanda mosley Type: BLOOD SPECIMENOrdering Facility: [facility] Address: [address] [address] Performed By: #### 2 4321-2 ####[facility]ORATORYCLIA [id number] [address] Sodium [Moles/Vol] 140 mmol/L Normal 136-144 [facility] Comment on above: Order Comment: Speci men Type: BLOOD SPECIMENOrdering Facility: [facility] Address: [address] [place] [address] Performed By: #### 2 4321-2 ####[facility]ORATORYCLIA [id number] [address] STATES OF [facility] Urea nitrogen [Mass/Vol] 18 mg/dL Normal 7-21 [facility] Comment on above: Order Comment: Speci men Type: BLOOD SPECIMENOrdering Facility: [facility] Address: [address] [place] [address] Performed By: #### 2 4321-2 ####[facility]ORATORYCLIA [id number] [address] OF [facility] CBC panel Auto (Bld)on 08-15 Erythrocyte distribution width (RBC) [Ratio] 13.1 % Normal 11.5-15.0 [facility] Comment on above: Order Comment: Speci men Type: BLOOD SPECIMENOrdering Facility: [facility] Address: [address] [place] [address] Performed By: #### 5 8410-2 ####[facility]ORATORYCLIA [id number] [address] Hematocrit (Bld) [Volume fraction] 38.1 % Normal 36.0-46.0 [facility] Comment on above: Order Comment: Speci men Type: BLOOD SPECIMENOrdering Facility: [facility] Address: [address] [place] [address] Performed By: #### 5 8410-2 ####[facility]ATORYCLIA [id number] [address] Hemoglobin (Bld) [Mass/Vol] 12.1 g/dL Normal 11.5-15.5 [facility] Comment on above: Order Comment: Speci men Type: BLOOD SPECIMENOrdering Facility: [facility] Address: [address] [address] Performed By: #### 5 8410-2 ####[facility]ORATORYCLIA [id number] [address] MCH (RBC) [Entitic mass] 28.8 pg Normal 26.0-34.0 [facility] Comment on above: Order Comment: Speci men Type: BLOOD SPECIMENOrdering Facility: [facility] Address: [address] [place] [address] Performed By: #### 5 8410-2 ####[facility]ATORYCLIA [id number] [address] MCHC (RBC) [Mass/Vol] 31.8 g/dL Normal 30.5-36.0 [facility] Comment on above: Order Comment: Speci men Type: BLOOD SPECIMENOrdering Facility: [facility] Address: [address] [place] [address] Performed By: #### 5 8410-2 ####[facility]ATORYCLIA [id number] [address] MCV (RBC) [Entitic vol] 90.7 fL Normal 80.0-100.0 [facility] Comment on above: Order Comment: Speci men Type: BLOOD SPECIMENOrdering Facility: [facility] Address: [address] [place] [address] Performed By: #### 5 8410-2 ####[facility]ATORYCLIA [id number] [address] Nucleated RBC (Bld) [#/Vol] 10*3/uL Normal <0.01 [facility] Comment on above: Order Comment: Speci men Type: BLOOD SPECIMENOrdering Facility: [facility] Address: [address] [place] [address] Performed By: #### 5 8410-2 ####[facility]ORATORYCLIA [id number] [place] [address] [place] Platelet mean volume (Bld) [Entitic vol] 10.2 fL Normal 9.0-12.7 [facility] Comment on above: Order Comment: Speci men Type: BLOOD SPECIMENOrdering Facility: [facility] Address: [address] [place] [address] Performed By: #### 5 8410-2 ####[facility]ORATORYCLIA [id number] [place] [address] [place] Platelets (Bld) [#/Vol] 253 10*3/uL Normal 150-400 [facility] Comment on above: Order Comment: Speci men Type: BLOOD SPECIMENOrdering Facility: [facility] Address: [address] [place] [address] Performed By: #### 5 8410-2 ####[facility]ATORYCLIA [id number] [place] [address] [place] RBC (Bld) [#/Vol] 4.20 10*6/uL Normal 3.90-5.20 [facility] Comment on above: Order Comment: Speci men Type: BLOOD SPECIMENOrdering Facility: [facility] Address: [address] [place] [address] Performed By: #### 5 8410-2 ####[facility]ORATORYCLIA [id number] [place] [address] [place] WBC (Bld) [#/Vol] 9.62 10*3/uL Normal 3.70-11.00 [facility] Comment on above: Order Comment: Speci men Type: BLOOD SPECIMENOrdering Facility: [facility] Address: [address] [place] [address] Performed By: #### 5 8410-2 ####[facility]ORATORYCLIA [id number] [address] [place] CONSULTon 08-15-2022 CONSULT Normal [facility] CONSULT PROGon 08-15-2022 CONSULT PROG Normal [facility] ECG COMPLETEon 08-15-2022 ECG COMPLETE Normal [facility] Basic metabolic 2000 panelon 08-14-2022 Anion gap [Moles/Vol] 11 mmol/L Normal 9-18 [facility] Comment on above: Order Comment: Speci men Type: BLOOD SPECIMENOrdering Facility: [facility] Address: [address] [place] [address] Performed By: #### 2 4321-2 ####[facility]ORYCLIA [id number] [place] [address] [place] Calcium [Mass/Vol] 9.4 mg/dL Normal 8.5-10.2 [facility] Comment on above: Order Comment: Speci men Type: BLOOD SPECIMENOrdering Facility: [facility] Address: [address] [place] [address] Performed By: #### 2 4321-2 ####[facility]ATORYCLIA [id number] [place] [address] [place] Chloride [Moles/Vol] 100 mmol/L Normal 97-105 [facility] Comment on above: Order Comment: Speci men Type: BLOOD SPECIMENOrdering Facility: [facility] Address: [address] [place] [address] Performed By: #### 2 4321-2 ####[facility]ORATORYCLIA [id number] [place] [address] [place] CO2 [Moles/Vol] 26 mmol/L Normal 22-30 [facility] Comment on above: Order Comment: Speci men Type: BLOOD SPECIMENOrdering Facility: [facility] Address: [address] [place] [address] Performed By: #### 2 4321-2 ####[facility]ORATORYCLIA [id number] [place] [address] [place] Creatinine [Mass/Vol] 0.55 mg/dL Low 0.58-0.96 [facility] Comment on above: Order Comment: Speci men Type: BLOOD SPECIMENOrdering Facility: [facility] Address: [address] [address] Performed By: #### 2 4321-2 ####[facility]OSPITALIA [id number] [address] ESTIMATED GLOMERULAR FILTRATION RATE 106 mL/min/1.73m??? Normal >=60 [facility] Comment on above: Order Comment: Tawanda mosley Type: BLOOD SPECIMENOrdering Facility: [facility] Address: [address] [place] [address] Result Comment: Manasa mated Glomerular Filtration Rate (eGFR) is calculated using the 2020 CKD-EPI creatinine equation. This equation utilizes serum creatinine, sex, and age as parameters. The creatinine assay has traceable calibration to isotope dilution-mass spectrometry. Refer to KDIGO guidelines for clinical interpretation. In patients with unstable renal function, e.g. those with acute kidney injury, the eGFR may not accurately reflect actual GFR. Performed By: #### 2 4321-2 ####[facility]OSPITALIA [id number] [address] [place] [facility] Glucose [Mass/Vol] 123 mg/dL High 74-99 [facility] Comment on above: Order Comment: Tawanda mosley Type: BLOOD SPECIMENOrdering Facility: [facility] Address: [address] [address] Result Comment: The [place] Diabetes [employer] (ADA) provides guidance for cutoff values for fasting glucose and random glucose. The ADA defines fasting as no caloric intake for at least 8 hours. Fasting plasma glucose results between 100 to 125 mg/dL indicate increased risk for diabetes (prediabetes).Fasting plasma glucose results greater than or equal to 126 mg/dL meet the criteria for diagnosis of diabetes. In the absence of unequivocal hyperglycemia, results should be confirmed by repeat testing. In a patient with classic symptoms of hyperglycemia or hyperglycemic crisis, random plasma glucose results greater than or equal to 200 mg/dL meet the criteria for diagnosis of diabetes.Reference: Standards of Medical Care in Diabetes 2016, [place] [employer]. Diabetes Care. 2016.39(Suppl 1). Performed By: #### 2 4321-2 ####[facility] HOSPITALIA [id number] [place] [id number] [place] Potassium [Moles/Vol] 3.9 mmol/L Normal 3.7-5.1 [facility] Comment on above: Order Comment: Speci men Type: BLOOD SPECIMENOrdering Facility: [facility] Address: [address] [place] [address] Performed By: #### 2 4321-2 ####[facility]ATORYCLIA [id number] [address] [place] Sodium [Moles/Vol] 137 mmol/L Normal 136-144 [facility] Comment on above: Order Comment: Speci men Type: BLOOD SPECIMENOrdering Facility: [facility] Address: [address] [place] [address] Performed By: #### 2 4321-2 ####[facility]ORATORYCLIA [id number] [address] [place] Urea nitrogen [Mass/Vol] 14 mg/dL Normal 7-21 [facility] Comment on above: Order Comment: Speci men Type: BLOOD SPECIMENOrdering Facility: [facility] Address: [address] [place] [address] Performed By: #### 2 4321-2 ####[facility]ORATORYCLIA [id number] [address] [place] CASE MGT INIT ASSESon 2022 CASE MGT INIT ASSES Normal [facility] CBC W Auto Differential pane l (Bld)on 08-14-2022 Basophils (Bld) [#/Vol] 0.08 10*3/uL Normal <0.11 [facility] Comment on above: Order Comment: Speci men Type: BLOOD SPECIMENOrdering Facility: [facility] Address: [address] [place] [address] Performed By: #### 5 7021-8 ####[facility]ORATORYCLIA [id number] [address] [place] Basophils/100 WBC (Bld) 0.7 % Normal [facility] Comment on above: Order Comment: Speci men Type: BLOOD SPECIMENOrdering Facility: [facility] Address: [address] [address] Performed By: #### 5 7021-8 ####[facility]ORYCLIA [id number] [address] Differential cell count method Nom (Bld) Auto Normal [facility] Comment on above: Order Comment: Speci men Type: BLOOD SPECIMENOrdering Facility: [facility] Address: [address] [place] [address] Performed By: #### 5 7021-8 ####[facility]ATORYCLIA [id number] [address] Eosinophils (Bld) [#/Vol] 0.36 10*3/uL Normal <0.46 [facility] Comment on above: Order Comment: Speci men Type: BLOOD SPECIMENOrdering Facility: [facility] Address: [address] [place] [address] Performed By: #### 5 7021-8 ####[facility]ATORYCLIA [id number] [address] Eosinophils/100 WBC (Bld) 3.3 % Normal [facility] Comment on above: Order Comment: Speci men Type: BLOOD SPECIMENOrdering Facility: [facility] Address: [address] [place] [address] Performed By: #### 5 7021-8 ####[facility]ORATORYCLIA [id number] [address] Erythrocyte distribution width (RBC) [Ratio] 12.8 % Normal 11.5-15.0 [facility] Comment on above: Order Comment: Speci men Type: BLOOD SPECIMENOrdering Facility: [facility] Address: [address] [place] [address] Performed By: #### 5 7021-8 ####[facility]ORYCLIA [id number] [address] Hematocrit (Bld) [Volume fraction] 38.4 % Normal 36.0-46.0 [facility] Comment on above: Order Comment: Speci men Type: BLOOD SPECIMENOrdering Facility: [facility] Address: [address] [place] [address] Performed By: #### 5 7021-8 ####[facility]ATORYCLIA [id number] [address] [place] Hemoglobin (Bld) [Mass/Vol] 12.3 g/dL Normal 11.5-15.5 [facility] Comment on above: Order Comment: Speci men Type: BLOOD SPECIMENOrdering Facility: [facility] Address: [address] [place] [address] Performed By: #### 5 7021-8 ####[facility]ORATORYCLIA [id number] [address] [place] Immature granulocytes (Bld) [#/Vol] 0.04 10*3/uL Normal <0.10 [facility] Comment on above: Order Comment: Speci men Type: BLOOD SPECIMENOrdering Facility: [facility] Address: [address] [place] [address] Performed By: #### 5 7021-8 ####[facility]ATORYCLIA [id number] [address] [place] Immature granulocytes/100 WBC (Bld) 0.4 % Normal [facility] Comment on above: Order Comment: Speci men Type: BLOOD SPECIMENOrdering Facility: [facility] Address: [address] [place] [address] Performed By: #### 5 7021-8 ####[facility]ORYCLIA [id number] [place] [address] [place] Lymphocytes (Bld) [#/Vol] 2.15 10*3/uL Normal 1.00-4.00 [facility] Comment on above: Order Comment: Speci men Type: BLOOD SPECIMENOrdering Facility: [facility] Address: [address] [place] [address] Performed By: #### 5 7021-8 ####[facility]ORYCLIA [id number] [address] Lymphocytes/100 WBC (Bld) 19.9 % Normal [facility] Comment on above: Order Comment: Speci men Type: BLOOD SPECIMENOrdering Facility: [facility] Address: [address] [place] [address] Performed By: #### 5 7021-8 ####[facility]ATORYCLIA [id number] [address] MCH (RBC) [Entitic mass] 28.8 pg Normal 26.0-34.0 [facility] Comment on above: Order Comment: Speci men Type: BLOOD SPECIMENOrdering Facility: [facility] Address: [address] [place] [address] Performed By: #### 5 7021-8 ####[facility]ATORYCLIA [id number] [address] [place] MCHC (RBC) [Mass/Vol] 32.0 g/dL Normal 30.5-36.0 [facility] Comment on above: Order Comment: Speci men Type: BLOOD SPECIMENOrdering Facility: [facility] Address: [address] [place] [address] Performed By: #### 5 7021-8 ####[facility]ATORYCLIA [id number] [address] [place] MCV (RBC) [Entitic vol] 89.9 fL Normal 80.0-100.0 [facility] Comment on above: Order Comment: Speci men Type: BLOOD SPECIMENOrdering Facility: [facility] Address: [address] [place] [address] Performed By: #### 5 7021-8 ####[facility]ATORYCLIA [id number] [address] Monocytes (Bld) [#/Vol] 0.90 10*3/uL High <0.87 [facility] Comment on above: Order Comment: Speci men Type: BLOOD SPECIMENOrdering Facility: [facility] Address: [address] [address] Performed By: #### 5 7021-8 ####[facility]ORYCLIA [id number] [address] [place] Monocytes/100 WBC (Bld) 8.3 % Normal [facility] Comment on above: Order Comment: Speci men Type: BLOOD SPECIMENOrdering Facility: [facility] Address: [address] [place] [address] Performed By: #### 5 7021-8 ####[facility]ORYCLIA [id number] [place] [address] [place] Neutrophils (Bld) [#/Vol] 7.27 10*3/uL Normal 1.45-7.50 [facility] Comment on above: Order Comment: Speci men Type: BLOOD SPECIMENOrdering Facility: [facility] Address: [address] [place] [address] Performed By: #### 5 7021-8 ####[facility]ATORYCLIA [id number] [address] [place] Neutrophils/100 WBC (Bld) 67.4 % Normal [facility] Comment on above: Order Comment: Speci men Type: BLOOD SPECIMENOrdering Facility: [facility] Address: [address] [place] [address] Performed By: #### 5 7021-8 ####[facility]ORYCLIA [id number] [address] [place] Nucleated RBC (Bld) [#/Vol] 10*3/uL Normal <0.01 [facility] Comment on above: Order Comment: Speci men Type: BLOOD SPECIMENOrdering Facility: [facility] Address: [address] [place] [address] Performed By: #### 5 7021-8 ####[facility]ATORYCLIA [id number] [address] [place] Nucleated RBC/100 WBC (Bld) [Ratio] 0.0 /100 WBC Normal [facility] Comment on above: Order Comment: Speci men Type: BLOOD SPECIMENOrdering Facility: [facility] Address: [address] [address] Performed By: #### 5 7021-8 ####[facility]ATORYCLIA [id number] [address] [place] Platelet mean volume (Bld) [Entitic vol] 10.7 fL Normal 9.0-12.7 [facility] Comment on above: Order Comment: Speci men Type: BLOOD SPECIMENOrdering Facility: [facility] Address: [address] [address] Performed By: #### 5 7021-8 ####[facility]ATORYCLIA [id number] [address] [place] Platelets (Bld) [#/Vol] 281 10*3/uL Normal 150-400 [facility] Comment on above: Order Comment: Speci men Type: BLOOD SPECIMENOrdering Facility: [facility] Address: [address] [address] Performed By: #### 5 7021-8 ####[facility]ATORYCLIA [id number] [address] [place] RBC (Bld) [#/Vol] 4.27 10*6/uL Normal 3.90-5.20 [facility] Comment on above: Order Comment: Speci men Type: BLOOD SPECIMENOrdering Facility: [facility] Address: [address] Performed By: #### 5 7021-8 ####[facility]ATORYCLIA [id number] [address] [place] WBC (Bld) [#/Vol] 10.80 10*3/uL Normal 3.70-11.00 [facility] Comment on above: Order Comment: Speci men Type: BLOOD SPECIMENOrdering Facility: [facility] Address: [address] [place] [address] Performed By: #### 5 7021-8 ####[facility]ATORYCLIA [id number] [place] [address] [place] CONSULT PROGon 08-14-2022 CONSULT PROG Normal [facility] CONSULT PROG Normal [facility] ED NOTEon 08-14-2022 ED NOTE HNO ID: [id number] Author: Iglesia Gee RN Service: ? Author Type: Registered Nurse Type: ED Notes Filed: 08/14/2022 1:34 PM Note Text: Report given to Candi RAMOS 2100 at this time. No further questions at this time. Bed not clean at this time Normal [facility] ED NOTE HNO ID: [id number] Author: Iglesia Gee RN Service: ? Author Type: Registered Nurse Type: ED Notes Filed: 08/14/2022 11:45 AM Note Text: Seizure pads applied to the bed Normal [facility] ED NOTE HNO ID: [id number] Author: Iglesia Gee RN Service: ? Author Type: Registered Nurse Type: ED Notes Filed: 08/14/2022 8:35 AM Note Text: Pt sitting on edge of bed in tears asking to leave. Normal [facility] ED PROV NOTEon 08-14-2022 ED PROV NOTE Normal [facility] ED PROV NOTE Normal [facility] HISTORY PHYSICALon HISTORY PHYSICAL Normal [facility] Bacteria Bld Culton 08-13-19 23 Bacteria identified Cx Nom (Bld) CULTURE, BLOOD: No growth 5 days Normal [facility] Comment on above: Performed By: #### 6 00-7 ####[facility]ATORYCLIA [id number] [place] [address] [place] Basic metabolic 2000 panelon 08-13-2022 Anion gap [Moles/Vol] 8 mmol/L Low 9-18 [facility] Comment on above: Order Comment: Speci men Type: BLOOD SPECIMENOrdering Facility: [facility] Address: [address] [place] [id number] Performed By: #### 2 4321-2 ####[facility]ORATORYCLIA [id number] [place] [address] [place] Calcium [Mass/Vol] 9.5 mg/dL Normal 8.5-10.2 [facility] Comment on above: Order Comment: Speci men Type: BLOOD SPECIMENOrdering Facility: [facility] Address: [address] [place] [address] Performed By: #### 2 4321-2 ####[facility]ATORYCLIA [id number] [place] [address] [place] Chloride [Moles/Vol] 100 mmol/L Normal 97-105 [facility] Comment on above: Order Comment: Speci men Type: BLOOD SPECIMENOrdering Facility: [facility] Address: [address] [place] [address] Performed By: #### 2 4321-2 ####[facility]ATORYCLIA [id number] [place] [address] [place] CO2 [Moles/Vol] 28 mmol/L Normal 22-30 [facility] Comment on above: Order Comment: Speci men Type: BLOOD SPECIMENOrdering Facility: [facility] Address: [address] [place] [address] Performed By: #### 2 4321-2 ####[facility]ATORYCLIA [id number] [place] [address] [place] Creatinine [Mass/Vol] 0.61 mg/dL Normal 0.58-0.96 [facility] Comment on above: Order Comment: Speci men Type: BLOOD SPECIMENOrdering Facility: [facility] Address: [address] [place] [address] Performed By: #### 2 4321-2 ####[facility]ATORYCLIA [id number] [place] [address] [place] ESTIMATED GLOMERULAR FILTRATION RATE 104 mL/min/1.73m??? Normal >=60 [facility] Comment on above: Order Comment: Speci men Type: BLOOD SPECIMENOrdering Facility: [facility] Address: [address] [place] [address] Result Comment: Manasa mated Glomerular Filtration Rate (eGFR) is calculated using the 2020 CKD-EPI creatinine equation. This equation utilizes serum creatinine, sex, and age as parameters. The creatinine assay has traceable calibration to isotope dilution-mass spectrometry. Refer to KDIGO guidelines for clinical interpretation. In patients with unstable renal function, e.g. those with acute kidney injury, the eGFR may not accurately reflect actual GFR. Performed By: #### 2 4321-2 ####[facility]ATORYCLIA [id number] [place] [address] [place] Glucose [Mass/Vol] 158 mg/dL High 74-99 [facility] Comment on above: Order Comment: Speci men Type: BLOOD SPECIMENOrdering Facility: [facility] Address: [address] [place], [place] [address] Result Comment: The [place] [employer] (ADA) provides guidance for cutoff values for fasting glucose and random glucose. The ADA defines fasting as no caloric intake for at least 8 hours. Fasting plasma glucose results between 100 to 125 mg/dL indicate increased risk for diabetes (prediabetes).Fasting plasma glucose results greater than or equal to 126 mg/dL meet the criteria for diagnosis of diabetes. In the absence of unequivocal hyperglycemia, results should be confirmed by repeat testing. In a patient with classic symptoms of hyperglycemia or hyperglycemic crisis, random plasma glucose results greater than or equal to 200 mg/dL meet the criteria for diagnosis of diabetes.Reference: Standards of Medical Care in Diabetes 2016, [place] [employer]. Diabetes Care. 2016.39(Suppl 1). Performed By: #### 2 4321-2 ####[facility]ORATORYCLIA [id number] [place] [address] [place] Potassium [Moles/Vol] 4.1 mmol/L Normal 3.7-5.1 [facility] Comment on above: Order Comment: Speci men Type: BLOOD SPECIMENOrdering Facility: [facility] Address: [address] [id number] Performed By: #### 2 4321-2 ####[facility]ORATORYCLIA [id number] [place] [address] [place] Sodium [Moles/Vol] 136 mmol/L Normal 136-144 [facility] Comment on above: Order Comment: Speci men Type: BLOOD SPECIMENOrdering Facility: [facility] Address: [address] [place] [address] Performed By: #### 2 4321-2 ####[facility]ATORYCLIA [id number] [address] Urea nitrogen [Mass/Vol] 15 mg/dL Normal 7-21 [facility] Comment on above: Order Comment: Speci men Type: BLOOD SPECIMENOrdering Facility: [facility] Address: [address] [place] [address] Performed By: #### 2 4321-2 ####[facility]ATORYCLIA [id number] [address] CBC W Auto Differential pane l (Bld)on 08-13-2022 Basophils (Bld) [#/Vol] 0.09 10*3/uL Normal <0.11 [facility] Comment on above: Order Comment: Speci men Type: BLOOD SPECIMENOrdering Facility: [facility] Address: [address] [place] [address] Performed By: #### 5 7021-8 ####[facility]ATORYCLIA [id number] [address] Basophils/100 WBC (Bld) 0.9 % Normal [facility] Comment on above: Order Comment: Speci men Type: BLOOD SPECIMENOrdering Facility: [facility] Address: [address] [place] [address] Performed By: #### 5 7021-8 ####[facility]ATORYCLIA [id number] [address] Differential cell count method Nom (Bld) Auto Normal [facility] Comment on above: Order Comment: Speci men Type: BLOOD SPECIMENOrdering Facility: [facility] Address: [address] [place] [address] Performed By: #### 5 7021-8 ####[facility]ATORYCLIA [id number] [address] [place] Eosinophils (Bld) [#/Vol] 0.36 10*3/uL Normal <0.46 [facility] Comment on above: Order Comment: Speci men Type: BLOOD SPECIMENOrdering Facility: [facility] Address: [address] [place] [address] Performed By: #### 5 7021-8 ####[facility]ATORYCLIA [id number] [address] [place] [facility] Eosinophils/100 WBC (Bld) 3.5 % Normal [facility] Comment on above: Order Comment: Speci men Type: BLOOD SPECIMENOrdering Facility: [facility] Address: [address] [place] [address] Performed By: #### 5 7021-8 ####[facility]ATORYCLIA [id number] [address] [place] Erythrocyte distribution width (RBC) [Ratio] 12.9 % Normal 11.5-15.0 [facility] Comment on above: Order Comment: Speci men Type: BLOOD SPECIMENOrdering Facility: [facility] Address: [address] [place] [address] Performed By: #### 5 7021-8 ####[facility]ATORYCLIA [id number] [address] [place] Hematocrit (Bld) [Volume fraction] 40.6 % Normal 36.0-46.0 [facility] Comment on above: Order Comment: Speci men Type: BLOOD SPECIMENOrdering Facility: [facility] Address: [address] [place] [address] Performed By: #### 5 7021-8 ####[facility]ATORYCLIA [id number] [address] [place] Hemoglobin (Bld) [Mass/Vol] 12.9 g/dL Normal 11.5-15.5 [facility] Comment on above: Order Comment: Speci men Type: BLOOD SPECIMENOrdering Facility: [facility] Address: [address] [place] [address] Performed By: #### 5 7021-8 ####[facility]ORYCLIA [id number] [address] [place] Immature granulocytes (Bld) [#/Vol] 0.03 10*3/uL Normal <0.10 [facility] Comment on above: Order Comment: Speci men Type: BLOOD SPECIMENOrdering Facility: [facility] Address: [address] [place] [address] Performed By: #### 5 7021-8 ####[facility]ORYCLIA [id number] [address] Immature granulocytes/100 WBC (Bld) 0.3 % Normal [facility] Comment on above: Order Comment: Speci men Type: BLOOD SPECIMENOrdering Facility: [facility] Address: [address] [place] [address] Performed By: #### 5 7021-8 ####[facility]ATORYCLIA [id number] [address] [place] Lymphocytes (Bld) [#/Vol] 2.42 10*3/uL Normal 1.00-4.00 [facility] Comment on above: Order Comment: Speci men Type: BLOOD SPECIMENOrdering Facility: [facility] Address: [address] [place] [address] Performed By: #### 5 7021-8 ####[facility]ORYCLIA [id number] [address] Lymphocytes/100 WBC (Bld) 23.3 % Normal [facility] Comment on above: Order Comment: Speci men Type: BLOOD SPECIMENOrdering Facility: [facility] Address: [address] [place] [address] Performed By: #### 5 7021-8 ####[facility]ORYCLIA [id number] [address] [place] MCH (RBC) [Entitic mass] 28.7 pg Normal 26.0-34.0 [facility] Comment on above: Order Comment: Speci men Type: BLOOD SPECIMENOrdering Facility: [facility] Address: [address] [place], [place] [phone] Performed By: #### 5 7021-8 ####[facility]ATORYCLIA [id number] [address] MCHC (RBC) [Mass/Vol] 31.8 g/dL Normal 30.5-36.0 [facility] Comment on above: Order Comment: Speci men Type: BLOOD SPECIMENOrdering Facility: [facility] Address: [address] [place] [address] Performed By: #### 5 7021-8 ####[facility] LABORATORYCLIA [id number] [address] STATES OF [facility] MCV (RBC) [Entitic vol] 90.2 fL Normal 80.0-100.0 [facility] Comment on above: Order Comment: Speci men Type: BLOOD SPECIMENOrdering Facility: [facility] Address: [address] [place] [address] Performed By: #### 5 7021-8 ####[facility]ORATORYCLIA [id number] [address] Monocytes (Bld) [#/Vol] 0.83 10*3/uL Normal <0.87 [facility] Comment on above: Order Comment: Speci men Type: BLOOD SPECIMENOrdering Facility: [facility] Address: [address] [place] [address] Performed By: #### 5 7021-8 ####[facility]ORATORYCLIA [id number] [address] Monocytes/100 WBC (Bld) 8.0 % Normal [facility] Comment on above: Order Comment: Speci men Type: BLOOD SPECIMENOrdering Facility: [facility] Address: [address] [place] [address] Performed By: #### 5 7021-8 ####[facility] LABORATORYCLIA [id number] [address] [place] Neutrophils (Bld) [#/Vol] 6.65 10*3/uL Normal 1.45-7.50 [facility] Comment on above: Order Comment: Speci men Type: BLOOD SPECIMENOrdering Facility: [facility] Address: [address] [place] [address] Performed By: #### 5 7021-8 ####[facility]ORATORYCLIA [id number] [address] Neutrophils/100 WBC (Bld) 64.0 % Normal [facility] Comment on above: Order Comment: Speci men Type: BLOOD SPECIMENOrdering Facility: [facility] Address: [address] [place] [address] Performed By: #### 5 7021-8 ####[facility]ATORYCLIA [id number] [address] Nucleated RBC (Bld) [#/Vol] 10*3/uL Normal <0.01 [facility] Comment on above: Order Comment: Speci men Type: BLOOD SPECIMENOrdering Facility: [facility] Address: [address] [place] [address] Performed By: #### 5 7021-8 ####[facility]ATORYCLIA [id number] [address] Nucleated RBC/100 WBC (Bld) [Ratio] 0.0 /100 WBC Normal [facility] Comment on above: Order Comment: Speci men Type: BLOOD SPECIMENOrdering Facility: [facility] Address: [address] [place] [address] Performed By: #### 5 7021-8 ####[facility]ATORYCLIA [id number] [address] Platelet mean volume (Bld) [Entitic vol] 10.4 fL Normal 9.0-12.7 [facility] Comment on above: Order Comment: Speci men Type: BLOOD SPECIMENOrdering Facility: [facility] Address: [address] [place] [address] Performed By: #### 5 7021-8 ####[facility]ORATORYCLIA [id number] [place] [address] [place] Platelets (Bld) [#/Vol] 289 10*3/uL Normal 150-400 [facility] Comment on above: Order Comment: Speci men Type: BLOOD SPECIMENOrdering Facility: [facility] Address: [address] [place] [address] Performed By: #### 5 7021-8 ####[facility]ORATORYCLIA [id number] [place] [address] [place] RBC (Bld) [#/Vol] 4.50 10*6/uL Normal 3.90-5.20 [facility] Comment on above: Order Comment: Speci men Type: BLOOD SPECIMENOrdering Facility: [facility] Address: [address] [place] [address] Performed By: #### 5 7021-8 ####[facility]ORATORYCLIA [id number] [place] [address] [place] WBC (Bld) [#/Vol] 10.38 10*3/uL Normal 3.70-11.00 [facility] Comment on above: Order Comment: Speci men Type: BLOOD SPECIMENOrdering Facility: [facility] Address: [address] [place] [address] Performed By: #### 5 7021-8 ####[facility]ATORYCLIA [id number] [address] [place] CONSULTon 08-13-2022 CONSULT Normal [facility] CONSULT Normal [facility] CONSULT Normal [facility] ED NOTEon 08-13-2022 ED NOTE HNO ID: [id number] Author: Nestor Christianson RN Service: Emergency Medicine Author Type: Registered Nurse Type: ED Notes Filed: 08/13/2022 5:34 PM Note Text: Patient witnessed exiting room and heading to ed lobby in wheelchair Normal [facility] ED NOTE Normal [facility] ED NOTE Normal [facility] ED NOTE Normal [facility] ED NOTE HNO ID: [id number] Author: Nestor Christianson RN Service: Emergency Medicine Author Type: Registered Nurse Type: ED Notes Filed: 08/13/2022 4:08 PM Note Text: Sound physician contacted to notify them of patient's wishes to leave AMA Normal [facility] ED NOTE Normal [facility] ED NOTE Normal [facility] ED NOTE HNO ID: [id number] Author: Nestor Christianson RN Service: Emergency Medicine Author Type: Registered Nurse Type: ED Notes Filed: 08/13/2022 3:27 PM Note Text: Nurse not available for report at this time. Normal [facility] ED NOTE HNO ID: [id number] Author: Ivon Voss RN Service: Emergency Medicine Author Type: Registered Nurse Type: ED Notes Filed: 08/13/2022 2:55 PM Note Text: Pt placed on external cath [facility] ED NOTE HNO ID: [id number] Author: Tierra Gomez RN Service: ? Author Type: Registered Nurse Type: ED Notes Filed: 08/13/2022 6:37 AM Note Text: Spoke with MD, awaiting orders. Normal [facility] ED NOTE HNO ID: [id number] Author: Tierra Gomez RN Service: ? Author Type: Registered Nurse Type: ED Notes Filed: 08/13/2022 6:20 AM Note Text: Pt c/o pain. Admit MD paged. [facility] ED NOTE HNO ID: [id number] Author: Cecy White RN Service: ? Author Type: Registered Nurse Type: ED Notes Filed: 08/13/2022 3:03 AM Note Text: Bed: 15-ED Expected date: Expected time: Means of arrival: Comments: SQUAD Normal [facility] ED PROV NOTEon 08-13-2022 ED PROV NOTE Normal [facility] ED PROV NOTE Normal [facility] ED Triage Noteon 08-13-2022 ED Triage Note Normal [facility] HISTORY PHYSICALon HISTORY PHYSICAL Normal [facility] SARS-CoV-2 RNA Resp Ql RODERICK+p robeon 08-13-2022 SARS-CoV-2 (COVID-19) RNA RODERICK+probe Ql (Resp) COVID 19 RESULT: SARS-CoV-2 (Agent of COVID-19) Not Detected by RT-PCR or equivalent method. This test has been authorized by FDA under an Emergency Use Authorization (EUA). Normal [facility] Comment on above: Performed By: #### 9 4500-6 ####[facility]ORATORYCLIA [id number] [place] [address] [place] ALLIED HEALTHon 08-12-2022 ALLIED HEALTH Normal [facility] CBC W Auto Differential pane l (Bld)on 08-12-2022 Basophils (Bld) [#/Vol] 0.08 10*3/uL Normal <0.11 [facility] Comment on above: Order Comment: Speci men Type: BLOOD SPECIMENOrdering Facility: [facility] Address: [address] [place] [address] Performed By: #### 5 7021-8 ####[facility]ORATORYCLIA [id number] [place] [address] [place] Basophils/100 WBC (Bld) 0.9 % Normal [facility] Comment on above: Order Comment: Speci men Type: BLOOD SPECIMENOrdering Facility: [facility] Address: [address] [place] [address] Performed By: #### 5 7021-8 ####[facility]ORATORYCLIA [id number] [address] [place] Differential cell count method Nom (Bld) Auto Normal [facility] Comment on above: Order Comment: Speci men Type: BLOOD SPECIMENOrdering Facility: [facility] Address: [address] [place] [address] Performed By: #### 5 7021-8 ####[facility]ORATORYCLIA [id number] [place] [address] [place] Eosinophils (Bld) [#/Vol] 0.37 10*3/uL Normal <0.46 [facility] Comment on above: Order Comment: Speci men Type: BLOOD SPECIMENOrdering Facility: [facility] Address: [address] [place] [address] Performed By: #### 5 7021-8 ####[facility]ORATORYCLIA [id number] [address] [place] Eosinophils/100 WBC (Bld) 4.2 % Normal [facility] Comment on above: Order Comment: Speci men Type: BLOOD SPECIMENOrdering Facility: [facility] Address: [address] [place] [address] Performed By: #### 5 7021-8 ####[facility]ORATORYCLIA [id number] [address] [place] Erythrocyte distribution width (RBC) [Ratio] 13.0 % Normal 11.5-15.0 [facility] Comment on above: Order Comment: Speci men Type: BLOOD SPECIMENOrdering Facility: [facility] Address: [address] [place] [address] Performed By: #### 5 7021-8 ####[facility]ORATORYCLIA [id number] [address] [place] Hematocrit (Bld) [Volume fraction] 37.4 % Normal 36.0-46.0 [facility] Comment on above: Order Comment: Speci men Type: BLOOD SPECIMENOrdering Facility: [facility] Address: [address] [place] [address] Performed By: #### 5 7021-8 ####[facility]ATORYCLIA [id number] [address] [place] Hemoglobin (Bld) [Mass/Vol] 11.9 g/dL Normal 11.5-15.5 [facility] Comment on above: Order Comment: Speci men Type: BLOOD SPECIMENOrdering Facility: [facility] Address: [address] [place] [address] Performed By: #### 5 7021-8 ####[facility]ATORYCLIA [id number] [address] Immature granulocytes (Bld) [#/Vol] 0.03 10*3/uL Normal <0.10 [facility] Comment on above: Order Comment: Speci men Type: BLOOD SPECIMENOrdering Facility: [facility] Address: [address] [address] Performed By: #### 5 7021-8 ####[facility]ORATORYCLIA [id number] [address] Immature granulocytes/100 WBC (Bld) 0.3 % Normal [facility] Comment on above: Order Comment: Speci men Type: BLOOD SPECIMENOrdering Facility: [facility] Address: [address] [place] [address] Performed By: #### 5 7021-8 ####[facility]ATORYCLIA [id number] [address] Lymphocytes (Bld) [#/Vol] 3.16 10*3/uL Normal 1.00-4.00 [facility] Comment on above: Order Comment: Speci men Type: BLOOD SPECIMENOrdering Facility: [facility] Address: [address] [place] [address] Performed By: #### 5 7021-8 ####[facility]ATORYCLIA [id number] [address] Lymphocytes/100 WBC (Bld) 35.9 % Normal [facility] Comment on above: Order Comment: Speci men Type: BLOOD SPECIMENOrdering Facility: [facility] Address: [address] [place] [address] Performed By: #### 5 7021-8 ####[facility]ORATORYCLIA [id number] [address] STATES [facility] MCH (RBC) [Entitic mass] 29.0 pg Normal 26.0-34.0 [facility] Comment on above: Order Comment: Speci men Type: BLOOD SPECIMENOrdering Facility: [facility] Address: [address] [place] [address] Performed By: #### 5 7021-8 ####[facility]ATORYCLIA [id number] [address] MCHC (RBC) [Mass/Vol] 31.8 g/dL Normal 30.5-36.0 [facility] Comment on above: Order Comment: Speci men Type: BLOOD SPECIMENOrdering Facility: [facility] Address: [address] [place] [address] Performed By: #### 5 7021-8 ####[facility]ATORYCLIA [id number] [address] [place] MCV (RBC) [Entitic vol] 91.0 fL Normal 80.0-100.0 [facility] Comment on above: Order Comment: Speci men Type: BLOOD SPECIMENOrdering Facility: [facility] Address: [address] [place] [address] Performed By: #### 5 7021-8 ####[facility]ATORYCLIA [id number] [address] [place] Monocytes (Bld) [#/Vol] 0.70 10*3/uL Normal <0.87 [facility] Comment on above: Order Comment: Speci men Type: BLOOD SPECIMENOrdering Facility: [facility] Address: [address] [place] [address] Performed By: #### 5 7021-8 ####[facility]ATORYCLIA [id number] [address] Monocytes/100 WBC (Bld) 7.9 % Normal [facility] Comment on above: Order Comment: Speci men Type: BLOOD SPECIMENOrdering Facility: [facility] Address: [address] [address] Performed By: #### 5 7021-8 ####[facility]ATORYCLIA [id number] [address] [place] Neutrophils (Bld) [#/Vol] 4.47 10*3/uL Normal 1.45-7.50 [facility] Comment on above: Order Comment: Speci men Type: BLOOD SPECIMENOrdering Facility: [facility] Address: [address] [address] Performed By: #### 5 7021-8 ####[facility]ATORYCLIA [id number] [address] Neutrophils/100 WBC (Bld) 50.8 % Normal [facility] Comment on above: Order Comment: Speci men Type: BLOOD SPECIMENOrdering Facility: [facility] Address: [address] [place] [address] Performed By: #### 5 7021-8 ####[facility]ATORYCLIA [id number] [address] [place] Nucleated RBC (Bld) [#/Vol] 10*3/uL Normal <0.01 [facility] Comment on above: Order Comment: Speci men Type: BLOOD SPECIMENOrdering Facility: [facility] Address: [address] [place] [address] Performed By: #### 5 7021-8 ####[facility]ATORYCLIA [id number] [address] Nucleated RBC/100 WBC (Bld) [Ratio] 0.0 /100 WBC Normal [facility] Comment on above: Order Comment: Speci men Type: BLOOD SPECIMENOrdering Facility: [facility] Address: [address] [place] [address] Performed By: #### 5 7021-8 ####[facility]ATORYCLIA [id number] [address] [place] Platelet mean volume (Bld) [Entitic vol] 10.6 fL Normal 9.0-12.7 [facility] Comment on above: Order Comment: Speci men Type: BLOOD SPECIMENOrdering Facility: [facility] Address: [address] [place] [address] Performed By: #### 5 7021-8 ####[facility]ATORYCLIA [id number] [address] [place] Platelets (Bld) [#/Vol] 283 10*3/uL Normal 150-400 [facility] Comment on above: Order Comment: Speci men Type: BLOOD SPECIMENOrdering Facility: [facility] Address: [address] [place], [place] [address] Performed By: #### 5 7021-8 ####[facility]ORATORYCLIA [id number] [address] STATES OF [facility] RBC (Bld) [#/Vol] 4.11 10*6/uL Normal 3.90-5.20 [facility] Comment on above: Order Comment: Speci men Type: BLOOD SPECIMENOrdering Facility: [facility] Address: [address] [address] Performed By: #### 5 7021-8 ####[facility]ORATORYCLIA [id number] [address] STATES OF [facility] WBC (Bld) [#/Vol] 8.81 10*3/uL Normal 3.70-11.00 [facility] Comment on above: Order Comment: Speci men Type: BLOOD SPECIMENOrdering Facility: [facility] Address: [address] [place] [address] Performed By: #### 5 7021-8 ####[facility]ATORYCLIA [id number] [address] [place] CRP SerPl-mCncon 08-12-2022 CRP [Mass/Vol] 1.1 mg/dL High <0.9 [facility] Comment on above: Order Comment: Speci men Type: BLOOD SPECIMENOrdering Facility: [facility] Address: [address] [place] [address] Performed By: #### 1 988-5, 05597-3 ####[facility]ATORYCLIA [id number] [address] Comprehensive metabolic 2000 panelon 08-12-2022 Albumin [Mass/Vol] 4.1 g/dL Normal 3.9-4.9 [facility] Comment on above: Order Comment: Speci men Type: BLOOD SPECIMENOrdering Facility: [facility] Address: [address] [place] [address] Performed By: #### 1 988-5, 62636-9 ####[facility]ORATORYCLIA [id number] [place] [address] [place] ALP [Catalytic activity/Vol] 98 U/L Normal 34-123 [facility] Comment on above: Order Comment: Speci men Type: BLOOD SPECIMENOrdering Facility: [facility] Address: [address] [place] [address] Performed By: #### 1 988-5, 39273-5 ####[facility]ATORYCLIA [id number] [place] [address] [place] ALT With P-5'-P [Catalytic activity/Vol] 19 U/L Normal 7-38 [facility] Comment on above: Order Comment: Speci men Type: BLOOD SPECIMENOrdering Facility: [facility] Address: [address] [place] [address] Performed By: #### 1 988-5, 47587-4 ####[facility]ORATORYCLIA [id number] [address] OF [facility] Anion gap [Moles/Vol] 11 mmol/L Normal 9-18 [facility] Comment on above: Order Comment: Speci men Type: BLOOD SPECIMENOrdering Facility: [facility] Address: [address] [place] [address] Performed By: #### 1 988-5, 16288-9 ####[facility]ATORYCLIA [id number] [address] [place] AST With P-5'-P [Catalytic activity/Vol] 22 U/L Normal 13-35 [facility] Comment on above: Order Comment: Speci men Type: BLOOD SPECIMENOrdering Facility: [facility] Address: [address] [place] [address] Performed By: #### 1 988-5, 70108-3 ####[facility]ORATORYCLIA [id number] [address] [place] Bilirubin [Mass/Vol] 0.3 mg/dL Normal 0.2-1.3 [facility] Comment on above: Order Comment: Speci men Type: BLOOD SPECIMENOrdering Facility: [facility] Address: [address] [address] Performed By: #### 1 988-5, 02921-9 ####[facility]ATORYCLIA [id number] [address] [place] Calcium [Mass/Vol] 9.5 mg/dL Normal 8.5-10.2 [facility] Comment on above: Order Comment: Speci men Type: BLOOD SPECIMENOrdering Facility: [facility] Address: [address] [place] [address] Performed By: #### 1 988-5, 71882-4 ####[facility]ORATORYCLIA [id number] [place] [address] [place] Chloride [Moles/Vol] 103 mmol/L Normal 97-105 [facility] Comment on above: Order Comment: Speci men Type: BLOOD SPECIMENOrdering Facility: [facility] Address: [address] [place] [address] Performed By: #### 1 988-5, ####[facility]ORATORYCLIA [id number] [address] [place] CO2 [Moles/Vol] 26 mmol/L Normal 22-30 [facility] Comment on above: Order Comment: Speci men Type: BLOOD SPECIMENOrdering Facility: [facility] Address: [address] [place] [address] Performed By: #### 1 988-5, ####[facility]ORATORYCLIA [id number] [place] [address] [place] Creatinine [Mass/Vol] 0.59 mg/dL Normal 0.58-0.96 [facility] Comment on above: Order Comment: Speci men Type: BLOOD SPECIMENOrdering Facility: [facility] Address: [address] [place] [address] Performed By: #### 1 988-5, ####[facility]ORATORYCLIA [id number] [place] [address] [place] ESTIMATED GLOMERULAR FILTRATION RATE 105 mL/min/1.73m??? Normal >=60 [facility] Comment on above: Order Comment: Tawanda mosley Type: BLOOD SPECIMENOrdering Facility: [facility] Address: [address] [place] [address] Result Comment: Manasa mated Glomerular Filtration Rate (eGFR) is calculated using the 2020 CKD-EPI creatinine equation. This equation utilizes serum creatinine, sex, and age as parameters. The creatinine assay has traceable calibration to isotope dilution-mass spectrometry. Refer to KDIGO guidelines for clinical interpretation. In patients with unstable renal function, e.g. those with acute kidney injury, the eGFR may not accurately reflect actual GFR. Performed By: #### 1 988-5, 41628-0 ####[facility]ORATORYCLIA [id number] [place] [address] [place] Glucose [Mass/Vol] 117 mg/dL High 74-99 [facility] Comment on above: Order Comment: Tawanda mosley Type: BLOOD SPECIMENOrdering Facility: [facility] Address: [address] [place] [address] Result Comment: The [place] [employer] (ADA) provides guidance for cutoff values for fasting glucose and random glucose. The ADA defines fasting as no caloric intake for at least 8 hours. Fasting plasma glucose results between 100 to 125 mg/dL indicate increased risk for diabetes (prediabetes).Fasting plasma glucose results greater than or equal to 126 mg/dL meet the criteria for diagnosis of diabetes. In the absence of unequivocal hyperglycemia, results should be confirmed by repeat testing. In a patient with classic symptoms of hyperglycemia or hyperglycemic crisis, random plasma glucose results greater than or equal to 200 mg/dL meet the criteria for diagnosis of diabetes.Reference: Standards of Medical Care in Diabetes 2016, [place] [employer]. Diabetes Care. 2016.39(Suppl 1). Performed By: #### 1 988-5, 08200-9 ####[facility] LABORATORYCLIA [id number] [place] [address] [place] Potassium [Moles/Vol] 4.1 mmol/L Normal 3.7-5.1 [facility] Comment on above: Order Comment: Speci men Type: BLOOD SPECIMENOrdering Facility: [facility] Address: [address] [place] [address] Performed By: #### 1 988-5, 16784-7 ####[facility]back[facility] LABORATORYCLIA [id number] [address] STATES OF [facility] Protein [Mass/Vol] 7.2 g/dL Normal 6.3-8.0 [facility] Comment on above: Order Comment: Speci men Type: BLOOD SPECIMENOrdering Facility: [facility] Address: [address] [place] [address] Performed By: #### 1 988-5, 44232-4 ####[facility]ORATORYCLIA [id number] [address] Sodium [Moles/Vol] 140 mmol/L Normal 136-144 [facility] Comment on above: Order Comment: Speci men Type: BLOOD SPECIMENOrdering Facility: [facility] Address: [address] [place] [address] Performed By: #### 1 988-5, 16550-1 ####[facility]ORATORYCLIA [id number] [address] STATES [facility] Urea nitrogen [Mass/Vol] 11 mg/dL Normal 7-21 [facility] Comment on above: Order Comment: Speci men Type: BLOOD SPECIMENOrdering Facility: [facility] Address: [address] [place] [address] Performed By: #### 1 988-5, 34061-7 ####[facility]ORATORYCLIA [id number] [address] [place] ED NOTEon 08-12-2022 ED NOTE HNO ID: [id number] Author: Luis Ku Service: Emergency Medicine Author Type: Special Investigator Type: ED Notes Filed: 08/12/2022 7:43 PM Note Text: Pt. Stating pain level at 9-10 currently and hand is extremely swollen can barely move thumb Normal [facility] ED NOTE HNO ID: [id number] Author: Christina Jones RN Service: ? Author Type: Registered Nurse Type: ED Notes Filed: 08/12/2022 5:23 PM Note Text: XR notified pt ready for XR. Normal [facility] ED Triage Noteon 08-12-2022 ED Triage Note Normal [facility] ESR Westergren method (Bld) [Velocity]on 08-12-2022 ESR (Bld) [Velocity] 24 mm/h High 0-20 [facility] Comment on above: Order Comment: Speci men Type: BLOOD SPECIMENOrdering Facility: [facility] Address: [address] [place] [address] Performed By: #### 4 537-7 ####[facility] LABCLIA [id number] [facility] [id number] [address] [place] XR FOREARM 2V AP/LAT RTon XR FOREARM 2V AP/LAT RT Normal [facility] XR HAND 3V PA/LAT/OBL RTon 0 08-12-2022 XR HAND 3V PA/LAT/OBL RT Normal [facility] Basic metabolic 2000 panelon 08-08-2022 Anion gap [Moles/Vol] 8 mmol/L Low 9-18 [facility] Comment on above: Order Comment: Speci men Type: BLOOD SPECIMENOrdering Facility: [facility] Address: [address] [address] Performed By: #### 2 4321-2 ####[facility] LABORATORYCLIA [id number] [place] [address] [place] Calcium [Mass/Vol] 9.1 mg/dL Normal 8.5-10.2 [facility] Comment on above: Order Comment: Speci men Type: BLOOD SPECIMENOrdering Facility: [facility] Address: [address] [address] Performed By: #### 2 4321-2 ####[facility] LABORATORYCLIA [id number] [place] [address] [place] Chloride [Moles/Vol] 103 mmol/L Normal 97-105 [facility] Comment on above: Order Comment: Speci men Type: BLOOD SPECIMENOrdering Facility: [facility] Address: [address] [place] [address] Performed By: #### 2 4321-2 ####[facility] LABORATORYCLIA [id number] [address] STATES OF [facility] CO2 [Moles/Vol] 28 mmol/L Normal 22-30 [facility] Comment on above: Order Comment: Speci men Type: BLOOD SPECIMENOrdering Facility: [facility] Address: [address] [place] [address] Performed By: #### 2 4321-2 ####[facility] SERVICESCLIA [id number] [address] STATES OF [facility] Creatinine [Mass/Vol] 0.57 mg/dL Low 0.58-0.96 [facility] Comment on above: Order Comment: Speci men Type: BLOOD SPECIMENOrdering Facility: [facility] Address: [address] [place] [address] Performed By: #### 2 4321-2 ####[facility] LABORATORYCLIA [id number] [address] ESTIMATED GLOMERULAR FILTRATION RATE 105 mL/min/1.73m??? Normal >=60 [facility] Comment on above: Order Comment: Speci men Type: BLOOD SPECIMENOrdering Facility: [facility] Address: [address] [place] [address] Result Comment: Manasa mated Glomerular Filtration Rate (eGFR) is calculated using the 2020 CKD-EPI creatinine equation. This equation utilizes serum creatinine, sex, and age as parameters. The creatinine assay has traceable calibration to isotope dilution-mass spectrometry. Refer to KDIGO guidelines for clinical interpretation. In patients with unstable renal function, e.g. those with acute kidney injury, the eGFR may not accurately reflect actual GFR. Performed By: #### 2 4321-2 ####[facility] LABORATORYCLIA [id number] [address] OF [facility] Glucose [Mass/Vol] 216 mg/dL High 74-99 [facility] Comment on above: Order Comment: Speci men Type: BLOOD SPECIMENOrdering Facility: [facility] Address: [address] [place] [address] Result Comment: The [place] Diabetes [employer] (ADA) provides guidance for cutoff values for fasting glucose and random glucose. The ADA defines fasting as no caloric intake for at least 8 hours. Fasting plasma glucose results between 100 to 125 mg/dL indicate increased risk for diabetes (prediabetes).Fasting plasma glucose results greater than or equal to 126 mg/dL meet the criteria for diagnosis of diabetes. In the absence of unequivocal hyperglycemia, results should be confirmed by repeat testing. In a patient with classic symptoms of hyperglycemia or hyperglycemic crisis, random plasma glucose results greater than or equal to 200 mg/dL meet the criteria for diagnosis of diabetes.Reference: Standards of Medical Care in Diabetes 2016, [place] [employer]. Diabetes Care. 2016.39(Suppl 1). Performed By: #### 2 4321-2 ####[facility] LABORATORYCLIA [id number] [place] [address] [place] Potassium [Moles/Vol] 4.1 mmol/L Normal 3.7-5.1 [facility] Comment on above: Order Comment: Tawanda mosley Type: BLOOD SPECIMENOrdering Facility: [facility] Address: [address] [place] [address] Performed By: #### 2 4321-2 ####[facility] LABORATORYCLIA [id number] [place] [address] [place] Sodium [Moles/Vol] 139 mmol/L Normal 136-144 [facility] Comment on above: Order Comment: Speci men Type: BLOOD SPECIMENOrdering Facility: [facility] Address: [address] [address] Performed By: #### 2 4321-2 ####[facility] LABORATORYCLIA [id number] [place] [address] [place] Urea nitrogen [Mass/Vol] 10 mg/dL Normal 7-21 [facility] Comment on above: Order Comment: Leobardoi men Type: BLOOD SPECIMENOrdering Facility: [facility] Address: [address] Performed By: #### 2 4321-2 ####[facility] LABORATORYCLIA [id number] [place] [address] [place] CASE MANAGEMon 08-08-2022 CASE MANAGEM Normal [facility] CNDSon 08-08-2022 CNDS Normal [facility] ALLIED HEALTHon 08-07-2022 ALLIED HEALTH Normal [facility] CASE MANAGEMon 08-07-2022 CASE MANAGEM Normal [facility] CBC W Auto Differential pane l (Bld)on 08-07-2022 Basophils (Bld) [#/Vol] 0.09 10*3/uL Normal <0.11 [facility] Comment on above: Order Comment: Speci men Type: BLOOD SPECIMENOrdering Facility: [facility] Address: [address] [place] [address] Performed By: #### 5 7021-8 ####[facility] LABORATORYCLIA [id number] [address] [place] Basophils/100 WBC (Bld) 1.1 % Normal [facility] Comment on above: Order Comment: Speci men Type: BLOOD SPECIMENOrdering Facility: [facility] Address: [address] [place] [address] Performed By: #### 5 7021-8 ####[facility] LABORATORYCLIA [id number] [address] STATES [place] Differential cell count method Nom (Bld) Auto Normal [facility] Comment on above: Order Comment: Speci men Type: BLOOD SPECIMENOrdering Facility: [facility] Address: [address] [address] Performed By: #### 5 7021-8 ####[facility] LABORATORYCLIA [id number] [place] [address] [place] Eosinophils (Bld) [#/Vol] 0.30 10*3/uL Normal <0.46 [facility] Comment on above: Order Comment: Speci men Type: BLOOD SPECIMENOrdering Facility: [facility] Address: [address] [address] Performed By: #### 5 7021-8 ####[facility] LABORATORYCLIA [id number] [address] OF [place] Eosinophils/100 WBC (Bld) 3.6 % Normal [facility] Comment on above: Order Comment: Speci men Type: BLOOD SPECIMENOrdering Facility: [facility] Address: [address] [address] Performed By: #### 5 7021-8 ####[facility] LABORATORYCLIA [id number] [address] STATES [place] Erythrocyte distribution width (RBC) [Ratio] 13.5 % Normal 11.5-15.0 [facility] Comment on above: Order Comment: Speci men Type: BLOOD SPECIMENOrdering Facility: [facility] Address: [address] [place] [address] Performed By: #### 5 7021-8 ####[facility] LABORATORYCLIA [id number] [address] [place] Hematocrit (Bld) [Volume fraction] 36.1 % Normal 36.0-46.0 [facility] Comment on above: Order Comment: Speci men Type: BLOOD SPECIMENOrdering Facility: [facility] Address: [address] [place] [address] Performed By: #### 5 7021-8 ####[facility] LABORATORYCLIA [id number] [address] [place] Hemoglobin (Bld) [Mass/Vol] 11.2 g/dL Low 11.5-15.5 [facility] Comment on above: Order Comment: Speci men Type: BLOOD SPECIMENOrdering Facility: [facility] Address: [address] [place] [address] Performed By: #### 5 7021-8 ####[facility] LABORATORYCLIA [id number] [address] OF [place] Immature granulocytes (Bld) [#/Vol] 0.08 10*3/uL Normal <0.10 [facility] Comment on above: Order Comment: Speci men Type: BLOOD SPECIMENOrdering Facility: [facility] Address: [address] [place] [address] Performed By: #### 5 7021-8 ####[facility] LABORATORYCLIA [id number] [address] Immature granulocytes/100 WBC (Bld) 1.0 % Normal [facility] Comment on above: Order Comment: Speci men Type: BLOOD SPECIMENOrdering Facility: [facility] Address: [address] [place] [address] Performed By: #### 5 7021-8 ####[facility] LABORATORYCLIA [id number] [address] Lymphocytes (Bld) [#/Vol] 2.91 10*3/uL Normal 1.00-4.00 [facility] Comment on above: Order Comment: Speci men Type: BLOOD SPECIMENOrdering Facility: [facility] Address: [address] [place] [address] Performed By: #### 5 7021-8 ####[facility]ORATORYCLIA [id number] [address] Lymphocytes/100 WBC (Bld) 34.7 % Normal [facility] Comment on above: Order Comment: Speci men Type: BLOOD SPECIMENOrdering Facility: [facility] Address: [address] [place] [address] Performed By: #### 5 7021-8 ####[facility] LABORATORYCLIA [id number] [address] MCH (RBC) [Entitic mass] 29.2 pg Normal 26.0-34.0 [facility] Comment on above: Order Comment: Speci men Type: BLOOD SPECIMENOrdering Facility: [facility] Address: [address] [place] [address] Performed By: #### 5 7021-8 ####[facility] LABORATORYCLIA [id number] [address] MCHC (RBC) [Mass/Vol] 31.0 g/dL Normal 30.5-36.0 [facility] Comment on above: Order Comment: Speci men Type: BLOOD SPECIMENOrdering Facility: [facility] Address: [address] [place] [address] Performed By: #### 5 7021-8 ####[facility] LABORATORYCLIA [id number] [address] [place] MCV (RBC) [Entitic vol] 94.0 fL Normal 80.0-100.0 [facility] Comment on above: Order Comment: Speci men Type: BLOOD SPECIMENOrdering Facility: [facility] Address: [address] [place] [address] Performed By: #### 5 7021-8 ####[facility] LABORATORYCLIA [id number] [address] [place] Monocytes (Bld) [#/Vol] 1.18 10*3/uL High <0.87 [facility] Comment on above: Order Comment: Speci men Type: BLOOD SPECIMENOrdering Facility: [facility] Address: [address] [place] [address] Performed By: #### 5 7021-8 ####[facility] LABORATORYCLIA [id number] [address] Monocytes/100 WBC (Bld) 14.1 % Normal [facility] Comment on above: Order Comment: Speci men Type: BLOOD SPECIMENOrdering Facility: [facility] Address: [address] [place] [address] Performed By: #### 5 7021-8 ####[facility] LABORATORYCLIA [id number] [address] [place] Neutrophils (Bld) [#/Vol] 3.82 10*3/uL Normal 1.45-7.50 [facility] Comment on above: Order Comment: Speci men Type: BLOOD SPECIMENOrdering Facility: [facility] Address: [address] [place] [address] Performed By: #### 5 7021-8 ####[facility] LABORATORYCLIA [id number] [address] Neutrophils/100 WBC (Bld) 45.5 % Normal [facility] Comment on above: Order Comment: Speci men Type: BLOOD SPECIMENOrdering Facility: [facility] Address: [address] [place] [address] Performed By: #### 5 7021-8 ####[facility] LABORATORYCLIA [id number] [address] Nucleated RBC (Bld) [#/Vol] 10*3/uL Normal <0.01 [facility] Comment on above: Order Comment: Speci men Type: BLOOD SPECIMENOrdering Facility: [facility] Address: [address] [place] [address] Performed By: #### 5 7021-8 ####[facility] LABORATORYCLIA [id number] [address] Nucleated RBC/100 WBC (Bld) [Ratio] 0.0 /100 WBC Normal [facility] Comment on above: Order Comment: Speci men Type: BLOOD SPECIMENOrdering Facility: [facility] Address: [address] [place] [address] Performed By: #### 5 7021-8 ####[facility] LABORATORYCLIA [id number] [address] Platelet mean volume (Bld) [Entitic vol] 10.4 fL Normal 9.0-12.7 [facility] Comment on above: Order Comment: Speci men Type: BLOOD SPECIMENOrdering Facility: [facility] Address: [address] [place] [address] Performed By: #### 5 7021-8 ####[facility] LABORATORYCLIA [id number] [address] [place] Platelets (Bld) [#/Vol] 270 10*3/uL Normal 150-400 [facility] Comment on above: Order Comment: Speci men Type: BLOOD SPECIMENOrdering Facility: [facility] Address: [address] [address] Performed By: #### 5 7021-8 ####[facility] LABORATORYCLIA [id number] [address] RBC (Bld) [#/Vol] 3.84 10*6/uL Low 3.90-5.20 [facility] Comment on above: Order Comment: Speci men Type: BLOOD SPECIMENOrdering Facility: [facility] Address: [address] [place] [address] Performed By: #### 5 7021-8 ####[facility] LABORATORYCLIA [id number] [address] WBC (Bld) [#/Vol] 8.38 10*3/uL Normal 3.70-11.00 [facility] Comment on above: Order Comment: Speci men Type: BLOOD SPECIMENOrdering Facility: [facility] Address: [address] [place] [address] Performed By: #### 5 7021-8 ####[facility] LABORATORYCLIA [id number] [address] CONSULT PROGon 08-07-2022 CONSULT PROG Normal [facility] CONSULT PROG Normal [facility] Comprehensive metabolic 2000 panelon 08-07-2022 Albumin [Mass/Vol] 3.3 g/dL Low 3.9-4.9 [facility] Comment on above: Order Comment: Speci men Type: BLOOD SPECIMENOrdering Facility: [facility] Address: [address] [place] [address] Performed By: #### 2 4323-8 ####[facility] LABORATORYCLIA [id number] [address] ALP [Catalytic activity/Vol] 94 U/L Normal 34-123 [facility] Comment on above: Order Comment: Speci men Type: BLOOD SPECIMENOrdering Facility: [facility] Address: [address] [place] [address] Performed By: #### 2 4323-8 ####[facility] LABORATORYCLIA [id number] [place], [place] [id number] [place] [address] OF [facility] ALT With P-5'-P [Catalytic activity/Vol] 12 U/L Normal 7-38 [facility] Comment on above: Order Comment: Speci men Type: BLOOD SPECIMENOrdering Facility: [facility] Address: [address] [place] [address] Performed By: #### 2 4323-8 ####[facility] LABORATORYCLIA [id number] [address] [place] Anion gap [Moles/Vol] 9 mmol/L Normal 9-18 [facility] Comment on above: Order Comment: Speci men Type: BLOOD SPECIMENOrdering Facility: [facility] Address: [address] [place] [address] Performed By: #### 2 4323-8 ####[facility] LABORATORYCLIA [id number] [address] AST With P-5'-P [Catalytic activity/Vol] 20 U/L Normal 13-35 [facility] Comment on above: Order Comment: Speci men Type: BLOOD SPECIMENOrdering Facility: [facility] Address: [address] [place] [address] Performed By: #### 2 4323-8 ####[facility] LABORATORYCLIA [id number] [address] OF [facility] Bilirubin [Mass/Vol] 0.2 mg/dL Normal 0.2-1.3 [facility] Comment on above: Order Comment: Speci men Type: BLOOD SPECIMENOrdering Facility: [facility] Address: [address] [place] [address] Performed By: #### 2 4323-8 ####[facility] LABORATORYCLIA [id number] [address] [place] Calcium [Mass/Vol] 7.9 mg/dL Low 8.5-10.2 [facility] Comment on above: Order Comment: Speci men Type: BLOOD SPECIMENOrdering Facility: [facility] Address: [address] [place] [address] Performed By: #### 2 4323-8 ####[facility] LABORATORYCLIA [id number] [address] [place] Chloride [Moles/Vol] 107 mmol/L High 97-105 [facility] Comment on above: Order Comment: Speci men Type: BLOOD SPECIMENOrdering Facility: [facility] Address: [address] [place] [address] Performed By: #### 2 4323-8 ####[facility] LABORATORYCLIA [id number] [address] [place] CO2 [Moles/Vol] 25 mmol/L Normal 22-30 [facility] Comment on above: Order Comment: Speci men Type: BLOOD SPECIMENOrdering Facility: [facility] Address: [address] [place] [address] Performed By: #### 2 4323-8 ####[facility] LABORATORYCLIA [id number] [address] [place] Creatinine [Mass/Vol] 0.21 mg/dL Low 0.58-0.96 [facility] Comment on above: Order Comment: Speci men Type: BLOOD SPECIMENOrdering Facility: [facility] Address: [address] [place] [address] Performed By: #### 2 4323-8 ####[facility] LABORATORYCLIA [id number] [address] ESTIMATED GLOMERULAR FILTRATION RATE 134 mL/min/1.73m??? Normal >=60 [facility] Comment on above: Order Comment: Speci men Type: BLOOD SPECIMENOrdering Facility: [facility] Address: [address] [place] [address] Result Comment: Manasa mated Glomerular Filtration Rate (eGFR) is calculated using the 2020 CKD-EPI creatinine equation. This equation utilizes serum creatinine, sex, and age as parameters. The creatinine assay has traceable calibration to isotope dilution-mass spectrometry. Refer to KDIGO guidelines for clinical interpretation. In patients with unstable renal function, e.g. those with acute kidney injury, the eGFR may not accurately reflect actual GFR. Performed By: #### 2 4323-8 ####[facility] LABORATORYCLIA [id number] [place] [address] [place] Glucose [Mass/Vol] 165 mg/dL High 74-99 [facility] Comment on above: Order Comment: Tawanda mosley Type: BLOOD SPECIMENOrdering Facility: [facility] Address: [address] [place] [address] Result Comment: The [place] Diabetes [employer] (ADA) provides guidance for cutoff values for fasting glucose and random glucose. The ADA defines fasting as no caloric intake for at least 8 hours. Fasting plasma glucose results between 100 to 125 mg/dL indicate increased risk for diabetes (prediabetes).Fasting plasma glucose results greater than or equal to 126 mg/dL meet the criteria for diagnosis of diabetes. In the absence of unequivocal hyperglycemia, results should be confirmed by repeat testing. In a patient with classic symptoms of hyperglycemia or hyperglycemic crisis, random plasma glucose results greater than or equal to 200 mg/dL meet the criteria for diagnosis of diabetes.Reference: Standards of Medical Care in Diabetes 2016, [place] [employer]. Diabetes Care. 2016.39(Suppl 1). Performed By: #### 2 4323-8 ####[facility] LABORATORYCLIA [id number] [place] [address] [place] Potassium [Moles/Vol] 3.4 mmol/L Low 3.7-5.1 [facility] Comment on above: Order Comment: Tawanda mosley Type: BLOOD SPECIMENOrdering Facility: [facility] Address: [address] [address] Performed By: #### 2 4323-8 ####[facility] LABORATORYCLIA [id number] [place] [address] [place] Protein [Mass/Vol] 6.0 g/dL Low 6.3-8.0 [facility] Comment on above: Order Comment: Tawanda mosley Type: BLOOD SPECIMENOrdering Facility: [facility] Address: [address] [address] Performed By: #### 2 4323-8 ####[facility] LABORATORYCLIA [id number] [place] [address] [place] Sodium [Moles/Vol] 141 mmol/L Normal 136-144 [facility] Comment on above: Order Comment: Speci men Type: BLOOD SPECIMENOrdering Facility: [facility] Address: [address] [address] Performed By: #### 2 4323-8 ####[facility] LABORATORYCLIA [id number] [place] [address] [place] Urea nitrogen [Mass/Vol] 8 mg/dL Normal 7-21 [facility] Comment on above: Order Comment: Speci men Type: BLOOD SPECIMENOrdering Facility: [facility] Address: [address] [place] [address] Performed By: #### 2 4323-8 ####[facility] LABORATORYCLIA [id number] [place] [address] [place] MRI BRAIN WO/W IVCONon 08-07 MRI BRAIN WO/W IVCON Normal [facility] NUTRITIONon 08-07-2022 NUTRITION Normal [facility] THERAPY NTon 08-07-2022 THERAPY NT Normal [facility] ALLIED HEALTHon 08-06-2022 ALLIED HEALTH Normal [facility] ALLIED HEALTH Normal [facility] CBC W Auto Differential pane l (Bld)on 08-06-2022 Basophils (Bld) [#/Vol] 0.10 10*3/uL Normal <0.11 [facility] Comment on above: Order Comment: Speci men Type: BLOOD SPECIMENOrdering Facility: [facility] Address: [address] [address] Performed By: #### 5 7021-8 ####[facility] LABORATORYCLIA [id number] [address] [place] Basophils/100 WBC (Bld) 0.8 % Normal [facility] Comment on above: Order Comment: Speci men Type: BLOOD SPECIMENOrdering Facility: [facility] Address: [address] [address] Performed By: #### 5 7021-8 ####[facility] LABORATORYCLIA [id number] [address] Differential cell count method Nom (Bld) Auto Normal [facility] Comment on above: Order Comment: Speci men Type: BLOOD SPECIMENOrdering Facility: [facility] Address: [address] [place] [address] Performed By: #### 5 7021-8 ####[facility] LABORATORYCLIA [id number] [address] [place] Eosinophils (Bld) [#/Vol] 0.31 10*3/uL Normal <0.46 [facility] Comment on above: Order Comment: Speci men Type: BLOOD SPECIMENOrdering Facility: [facility] Address: [address] [place] [address] Performed By: #### 5 7021-8 ####[facility] LABORATORYCLIA [id number] [address] Eosinophils/100 WBC (Bld) 2.5 % Normal [facility] Comment on above: Order Comment: Speci men Type: BLOOD SPECIMENOrdering Facility: [facility] Address: [address] [place] [address] Performed By: #### 5 7021-8 ####[facility] LABORATORYCLIA [id number] [address] Erythrocyte distribution width (RBC) [Ratio] 13.4 % Normal 11.5-15.0 [facility] Comment on above: Order Comment: Speci men Type: BLOOD SPECIMENOrdering Facility: [facility] Address: [address] [place] [address] Performed By: #### 5 7021-8 ####[facility] LABORATORYCLIA [id number] [address] [place] Hematocrit (Bld) [Volume fraction] 36.1 % Normal 36.0-46.0 [facility] Comment on above: Order Comment: Speci men Type: BLOOD SPECIMENOrdering Facility: [facility] Address: [address] [place] [address] Performed By: #### 5 7021-8 ####[facility] [facility] LABORATORYCLIA [id number] [address] [place] Hemoglobin (Bld) [Mass/Vol] 11.3 g/dL Low 11.5-15.5 [facility] Comment on above: Order Comment: Speci men Type: BLOOD SPECIMENOrdering Facility: [facility] Address: [address] [place] [address] Performed By: #### 5 7021-8 ####[facility] LABORATORYCLIA [id number] [address] [place] Immature granulocytes (Bld) [#/Vol] 0.08 10*3/uL Normal <0.10 [facility] Comment on above: Order Comment: Speci men Type: BLOOD SPECIMENOrdering Facility: [facility] Address: [address] [place] [address] Performed By: #### 5 7021-8 ####[facility] D[facility] LABORATORYCLIA [id number] [address] [place] Immature granulocytes/100 WBC (Bld) 0.6 % Normal [facility] Comment on above: Order Comment: Speci men Type: BLOOD SPECIMENOrdering Facility: [facility] Address: [address] [place] [address] Performed By: #### 5 7021-8 ####[facility] LABORATORYCLIA [id number] [address] [place] Lymphocytes (Bld) [#/Vol] 2.93 10*3/uL Normal 1.00-4.00 [facility] Comment on above: Order Comment: Speci men Type: BLOOD SPECIMENOrdering Facility: [facility] Address: [address] [place] [address] Performed By: #### 5 7021-8 ####[facility] LABORATORYCLIA [id number] [address] Lymphocytes/100 WBC (Bld) 23.3 % Normal [facility] Comment on above: Order Comment: Speci men Type: BLOOD SPECIMENOrdering Facility: [facility] Address: [address] [place] [address] Performed By: #### 5 7021-8 ####[facility] LABORATORYCLIA [id number] [address] [place] MCH (RBC) [Entitic mass] 28.8 pg Normal 26.0-34.0 [facility] Comment on above: Order Comment: Speci men Type: BLOOD SPECIMENOrdering Facility: [facility] Address: [address] [place] [address] Performed By: #### 5 7021-8 ####[facility] LABORATORYCLIA [id number] [address] [place] MCHC (RBC) [Mass/Vol] 31.3 g/dL Normal 30.5-36.0 [facility] Comment on above: Order Comment: Speci men Type: BLOOD SPECIMENOrdering Facility: [facility] Address: [address] [place] [address] Performed By: #### 5 7021-8 ####[facility] DYER LABORATORYCLIA [id number] [address] [place] MCV (RBC) [Entitic vol] 91.9 fL Normal 80.0-100.0 [facility] Comment on above: Order Comment: Speci men Type: BLOOD SPECIMENOrdering Facility: [facility] Address: [address] [place] [address] Performed By: #### 5 7021-8 ####[facility] DYER LABORATORYCLIA [id number] [address] Monocytes (Bld) [#/Vol] 1.08 10*3/uL High <0.87 [facility] Comment on above: Order Comment: Speci men Type: BLOOD SPECIMENOrdering Facility: [facility] Address: [address] [place] [address] Performed By: #### 5 7021-8 ####[facility] LABORATORYCLIA [id number] [address] [place] Monocytes/100 WBC (Bld) 8.6 % Normal [facility] Comment on above: Order Comment: Speci men Type: BLOOD SPECIMENOrdering Facility: [facility] Address: [address] [place] [address] Performed By: #### 5 7021-8 ####[facility] LABORATORYCLIA [id number] [place] [address] [place] Neutrophils (Bld) [#/Vol] 8.07 10*3/uL High 1.45-7.50 [facility] Comment on above: Order Comment: Speci men Type: BLOOD SPECIMENOrdering Facility: [facility] Address: [address] [place] [address] Performed By: #### 5 7021-8 ####[facility] D[facility]ER LABORATORYCLIA [id number] [address] Neutrophils/100 WBC (Bld) 64.2 % Normal [facility] Comment on above: Order Comment: Speci men Type: BLOOD SPECIMENOrdering Facility: [facility] Address: [address] [place] [address] Performed By: #### 5 7021-8 ####[facility] LABORATORYCLIA [id number] [address] [place] Nucleated RBC (Bld) [#/Vol] 10*3/uL Normal <0.01 [facility] Comment on above: Order Comment: Speci men Type: BLOOD SPECIMENOrdering Facility: [facility] Address: [address] [place] [address] Performed By: #### 5 7021-8 ####[facility] LABORATORYCLIA [id number] [address] [place] Nucleated RBC/100 WBC (Bld) [Ratio] 0.0 /100 WBC Normal [facility] Comment on above: Order Comment: Speci men Type: BLOOD SPECIMENOrdering Facility: [facility] Address: [address] Performed By: #### 5 7021-8 ####[facility] LABORATORYCLIA [id number] [address] [place] Platelet mean volume (Bld) [Entitic vol] 10.1 fL Normal 9.0-12.7 [facility] Comment on above: Order Comment: Speci men Type: BLOOD SPECIMENOrdering Facility: [facility] Address: [address] Performed By: #### 5 7021-8 ####[facility] LABORATORYCLIA [id number] [address] [place] Platelets (Bld) [#/Vol] 294 10*3/uL Normal 150-400 [facility] Comment on above: Order Comment: Speci men Type: BLOOD SPECIMENOrdering Facility: [facility] Address: [address] [place] [address] Performed By: #### 5 7021-8 ####[facility] LABORATORYCLIA [id number] [place] [address] [place] RBC (Bld) [#/Vol] 3.93 10*6/uL Normal 3.90-5.20 [facility] Comment on above: Order Comment: Speci men Type: BLOOD SPECIMENOrdering Facility: [facility] Address: [address] [place], [place] [address] Performed By: #### 5 7021-8 ####[facility] LABORATORYCLIA [id number] [address] [place] WBC (Bld) [#/Vol] 12.57 10*3/uL High 3.70-11.00 [facility] Comment on above: Order Comment: Speci men Type: BLOOD SPECIMENOrdering Facility: [facility] Address: [address] [place] [address] Performed By: #### 5 7021-8 ####[facility] LABORATORYCLIA [id number] [place] [address] [place] CONSULTon 08-06-2022 CONSULT Normal [facility] CONSULT PROGon 08-06-2022 CONSULT PROG Normal [facility] Comprehensive metabolic 2000 panelon 08-06-2022 Albumin [Mass/Vol] 3.9 g/dL Normal 3.9-4.9 [facility] Comment on above: Order Comment: Speci men Type: BLOOD SPECIMENOrdering Facility: [facility] Address: [address] [place] [address] Performed By: #### 2 4323-8 ####[facility] LABORATORYCLIA [id number] [address] STATES [facility] ALP [Catalytic activity/Vol] 93 U/L Normal 34-123 [facility] Comment on above: Order Comment: Speci men Type: BLOOD SPECIMENOrdering Facility: [facility] Address: [address] [place] [address] Performed By: #### 2 4323-8 ####[facility] LABORATORYCLIA [id number] [address] STATES OF [facility] ALT With P-5'-P [Catalytic activity/Vol] 14 U/L Normal 7-38 [facility] Comment on above: Order Comment: Speci men Type: BLOOD SPECIMENOrdering Facility: [facility] Address: [address] [place] [address] Performed By: #### 2 4323-8 ####[facility] LABORATORYCLIA [id number] [address] [place] Anion gap [Moles/Vol] 8 mmol/L Low 9-18 [facility] Comment on above: Order Comment: Speci men Type: BLOOD SPECIMENOrdering Facility: [facility] Address: [address] [place] [address] Performed By: #### 2 4323-8 ####[facility] LABORATORYCLIA [id number] [address] [place] AST With P-5'-P [Catalytic activity/Vol] 19 U/L Normal 13-35 [facility] Comment on above: Order Comment: Speci men Type: BLOOD SPECIMENOrdering Facility: [facility] Address: [address] [place] [address] Performed By: #### 2 4323-8 ####[facility] LABORATORYCLIA [id number] [place] [address] [place] Bilirubin [Mass/Vol] 0.4 mg/dL Normal 0.2-1.3 [facility] Comment on above: Order Comment: Speci men Type: BLOOD SPECIMENOrdering Facility: [facility] Address: [address] [place] [address] Performed By: #### 2 4323-8 ####[facility] LABORATORYCLIA [id number] [place] [address] [place] Calcium [Mass/Vol] 9.2 mg/dL Normal 8.5-10.2 [facility] Comment on above: Order Comment: Speci men Type: BLOOD SPECIMENOrdering Facility: [facility] Address: [address] [place] [address] Performed By: #### 2 4323-8 ####[facility] LABORATORYCLIA [id number] [place] [address] [place] Chloride [Moles/Vol] 104 mmol/L Normal 97-105 [facility] Comment on above: Order Comment: Speci men Type: BLOOD SPECIMENOrdering Facility: [facility] Address: [address] [place] [address] Performed By: #### 2 4323-8 ####[facility] LABORATORYCLIA [id number] [place] [address] [place] CO2 [Moles/Vol] 29 mmol/L Normal 22-30 [facility] Comment on above: Order Comment: Speci men Type: BLOOD SPECIMENOrdering Facility: [facility] Address: [address] [place] [address] Performed By: #### 2 4323-8 ####[facility] LABORATORYCLIA [id number] [place] [address] [place] Creatinine [Mass/Vol] 0.57 mg/dL Low 0.58-0.96 [facility] Comment on above: Order Comment: Tawanda mosley Type: BLOOD SPECIMENOrdering Facility: [facility] Address: [address] [id number] Performed By: #### 2 4323-8 ####[facility] LABORATORYCLIA [id number] [address] OF [facility] ESTIMATED GLOMERULAR FILTRATION RATE 105 mL/min/1.73m??? Normal >=60 [facility] Comment on above: Order Comment: Tawanda mosley Type: BLOOD SPECIMENOrdering Facility: [facility] Address: [address] [place] [address] Result Comment: Manasa mated Glomerular Filtration Rate (eGFR) is calculated using the 2020 CKD-EPI creatinine equation. This equation utilizes serum creatinine, sex, and age as parameters. The creatinine assay has traceable calibration to isotope dilution-mass spectrometry. Refer to KDIGO guidelines for clinical interpretation. In patients with unstable renal function, e.g. those with acute kidney injury, the eGFR may not accurately reflect actual GFR. Performed By: #### 2 4323-8 ####[facility] LABORATORYCLIA [id number] [address] [place] Glucose [Mass/Vol] 129 mg/dL High 74-99 [facility] Comment on above: Order Comment: Tawanda mosley Type: BLOOD SPECIMENOrdering Facility: [facility] Address: [address] [place] [address] Result Comment: The [place] [employer] (ADA) provides guidance for cutoff values for fasting glucose and random glucose. The ADA defines fasting as no caloric intake for at least 8 hours. Fasting plasma glucose results between 100 to 125 mg/dL indicate increased risk for diabetes (prediabetes).Fasting plasma glucose results greater than or equal to 126 mg/dL meet the criteria for diagnosis of diabetes. In the absence of unequivocal hyperglycemia, results should be confirmed by repeat testing. In a patient with classic symptoms of hyperglycemia or hyperglycemic crisis, random plasma glucose results greater than or equal to 200 mg/dL meet the criteria for diagnosis of diabetes.Reference: Standards of Medical Care in Diabetes 2016, [place] [employer]. Diabetes Care. 2016.39(Suppl 1). Performed By: #### 2 4323-8 ####[facility] LABORATORYCLIA [id number] [address] [place] Potassium [Moles/Vol] 4.1 mmol/L Normal 3.7-5.1 [facility] Comment on above: Order Comment: Speci men Type: BLOOD SPECIMENOrdering Facility: [facility] Address: [address] [place] [address] Performed By: #### 2 4323-8 ####[facility] LABORATORYCLIA [id number] [place] [address] [place] Protein [Mass/Vol] 7.2 g/dL Normal 6.3-8.0 [facility] Comment on above: Order Comment: Speci men Type: BLOOD SPECIMENOrdering Facility: [facility] Address: [address] [place] [address] Performed By: #### 2 4323-8 ####[facility] LABORATORYCLIA [id number] [address] [place] Sodium [Moles/Vol] 141 mmol/L Normal 136-144 [facility] Comment on above: Order Comment: Speci men Type: BLOOD SPECIMENOrdering Facility: [facility] Address: [address] [place] [address] Performed By: #### 2 4323-8 ####[facility] LABORATORYCLIA [id number] [address] [place] Urea nitrogen [Mass/Vol] 10 mg/dL Normal 7-21 [facility] Comment on above: Order Comment: Speci men Type: BLOOD SPECIMENOrdering Facility: [facility] Address: [address] [place] [address] Performed By: #### 2 4323-8 ####[facility] LABORATORYCLIA [id number] [place] [address] [place] ECG COMPLETEon 08-06-2022 ECG COMPLETE Normal [facility] NURSING PROGon 01-24-2023 NURSING PROG Normal [facility] NURSING PROG Normal [facility] XR CHEST 1V FRONTALon 2022 XR CHEST 1V FRONTAL Normal [facility] ALLIED HEALTHon 08-05-2022 ALLIED HEALTH Normal [facility] ALLIED HEALTH Normal [facility] ALLIED HEALTH Normal [facility] ARTERIAL BLOOD GASESon 08-05 Base excess Calc (Bld) [Moles/Vol] 3 mmol/L High 0-2 [facility] Comment on above: Order Comment: Speci men Type: ARTERIAL BLOOD SPECIMENOrdering Facility: [facility] Address: [address] [place] [address] Performed By: #### A LLBG ####[facility] LABORATORYCLIA [id number] [address] STATES OF [facility] Body temperature 98.6 [degF] Normal [facility] Comment on above: Order Comment: Speci men Type: ARTERIAL BLOOD SPECIMENOrdering Facility: [facility] Address: [address] [place] [address] Performed By: #### A LLBG ####[facility] LABORATORYCLIA [id number] [address] [place] Calcium.ionized (BldV) [Mass/Vol] 1.25 mmol/L Normal 1.08-1.30 [facility] Comment on above: Order Comment: Speci men Type: ARTERIAL BLOOD SPECIMENOrdering Facility: [facility] Address: [address] [place] [address] Performed By: #### A LLBG ####[facility] LABORATORYCLIA [id number] [address] [place] Calcium.ionized adjusted to pH 7.4 (BldA) [Moles/Vol] 1.24 mmol/L Normal 1.08-1.30 [facility] Comment on above: Order Comment: Speci men Type: ARTERIAL BLOOD SPECIMENOrdering Facility: [facility] Address: [address] [place] [address] Performed By: #### A LLBG ####[facility] LABORATORYCLIA [id number] [address] [place] Carboxyhemoglobin (BldA) [Mass fraction] 1.9 % Normal 0.0-2.0 [facility] Comment on above: Order Comment: Speci men Type: ARTERIAL BLOOD SPECIMENOrdering Facility: [facility] Address: [address] [address] Result Comment: Carb oxyhemoglobin Reference Range for Smokers: 2.0-8.0% Performed By: #### A LLBG ####[facility] LABORATORYCLIA [id number] [place] [address] [place] Chloride [Moles/Vol] 104 mmol/L Normal 102-109 [facility] Comment on above: Order Comment: Speci men Type: ARTERIAL BLOOD SPECIMENOrdering Facility: [facility] Address: [address] [place] [address] Performed By: #### A LLBG ####[facility] LABORATORYCLIA [id number] [address] [place] CO2 (Bld) [Partial pressure] 49 mm Hg High 36-46 [facility] Comment on above: Order Comment: Speci men Type: ARTERIAL BLOOD SPECIMENOrdering Facility: [facility] Address: [address] [place] [address] Performed By: #### A LLBG ####[facility] LABORATORYCLIA [id number] [address] [place] CO2 [Moles/Vol] 26 mmol/L Normal 22-28 [facility] Comment on above: Order Comment: Speci men Type: ARTERIAL BLOOD SPECIMENOrdering Facility: [facility] Address: [address] [place] [address] Performed By: #### A LLBG ####[facility] LABORATORYCLIA [id number] [address] [place] Glucose [Mass/Vol] 121 mg/dL High 60-105 [facility] Comment on above: Order Comment: Speci men Type: ARTERIAL BLOOD SPECIMENOrdering Facility: [facility] Address: [address] [place], [place] [address] Performed By: #### A LLBG ####[facility] LABORATORYCLIA [id number] [address] [place] HCO3 (Bld) [Moles/Vol] 28 mmol/L High 22-26 [facility] Comment on above: Order Comment: Speci men Type: ARTERIAL BLOOD SPECIMENOrdering Facility: [facility] Address: [address] [place] [address] Performed By: #### A LLBG ####[facility] LABORATORYCLIA [id number] [address] [place] Hematocrit (Bld) [Volume fraction] 36.9 % Normal 36.0-46.0 [facility] Comment on above: Order Comment: Speci men Type: ARTERIAL BLOOD SPECIMENOrdering Facility: [facility] Address: [address] [place] [address] Performed By: #### A LLBG ####[facility] LABORATORYCLIA [id number] [address] [place] Hemoglobin (Bld) [Mass/Vol] 12.0 g/dL Normal 11.5-15.5 [facility] Comment on above: Order Comment: Speci men Type: ARTERIAL BLOOD SPECIMENOrdering Facility: [facility] Address: [address] [place] [address] Performed By: #### A LLBG ####[facility] LABORATORYCLIA [id number] [address] [place] Lactate [Moles/Vol] 1.0 mmol/L Normal 0.5-2.2 [facility] Comment on above: Order Comment: Speci men Type: ARTERIAL BLOOD SPECIMENOrdering Facility: [facility] Address: [address] [place] [address] Performed By: #### A LLBG ####[facility]ORATORYCLIA [id number] [address] [place] Methemoglobin (Bld) [Mass fraction] 1.1 % Normal 0.0-1.5 [facility] Comment on above: Order Comment: Speci men Type: ARTERIAL BLOOD SPECIMENOrdering Facility: [facility] Address: [address] [place] [address] Performed By: #### A LLBG ####[facility] LABORATORYCLIA [id number] [address] O2 THERAPY RA=Room Air Normal [facility] Comment on above: Order Comment: Speci men Type: ARTERIAL BLOOD SPECIMENOrdering Facility: [facility] Address: [address] [place] [address] Performed By: #### A LLBG ####[facility] LABORATORYCLIA [id number] [address] Oxygen (Bld) [Partial pressure] 75 mm Hg Low 85-95 [facility] Comment on above: Order Comment: Speci men Type: ARTERIAL BLOOD SPECIMENOrdering Facility: [facility] Address: [address] [place] [address] Performed By: #### A LLBG ####[facility] LABORATORYCLIA [id number] [address] [place] Oxyhemoglobin (BldA) [Mass fraction] 92 % Low 95-98 [facility] Comment on above: Order Comment: Speci men Type: ARTERIAL BLOOD SPECIMENOrdering Facility: [facility] Address: [address] [place] [address] Performed By: #### A LLBG ####[facility]ORATORYCLIA [id number] [place] [address] [place] pH (Bld) 7.38 [pH] Normal 7.35-7.45 [facility] Comment on above: Order Comment: Speci men Type: ARTERIAL BLOOD SPECIMENOrdering Facility: [facility] Address: [address] [place] [address] Performed By: #### A LLBG ####[facility]ORATORYCLIA [id number] [place] [address] [place] Potassium [Moles/Vol] 3.8 mmol/L Normal 3.5-5.0 [facility] Comment on above: Order Comment: Speci men Type: ARTERIAL BLOOD SPECIMENOrdering Facility: [facility] Address: [address] [place] [address] Performed By: #### A LLBG ####[facility] GENER[facility] LABORATORYCLIA [id number] [address] [place] Sodium [Moles/Vol] 141 mmol/L Normal 136-144 [facility] Comment on above: Order Comment: Speci men Type: ARTERIAL BLOOD SPECIMENOrdering Facility: [facility] Address: [address] [place] [address] Performed By: #### A LLBG ####[facility] LABORATORYCLIA [id number] [place] [address] [place] Basic metabolic 2000 panelon 08-05-2022 Anion gap [Moles/Vol] 10 mmol/L Normal 9-18 [facility] Comment on above: Order Comment: Speci men Type: BLOOD SPECIMENOrdering Facility: [facility] Address: [address] [place] [address] Performed By: #### 2 4321-2 ####[facility]ORATORYCLIA [id number] [place] [address] [place] Calcium [Mass/Vol] 9.1 mg/dL Normal 8.5-10.2 [facility] Comment on above: Order Comment: Speci men Type: BLOOD SPECIMENOrdering Facility: [facility] Address: [address] [place] [address] Performed By: #### 2 4321-2 ####[facility]ORATORYCLIA [id number] [address] [place] Chloride [Moles/Vol] 103 mmol/L Normal 97-105 [facility] Comment on above: Order Comment: Speci men Type: BLOOD SPECIMENOrdering Facility: [facility] Address: [address] [place] [address] Performed By: #### 2 4321-2 ####[facility] LABORATORYCLIA [id number] [address] OF [facility] CO2 [Moles/Vol] 26 mmol/L Normal 22-30 [facility] Comment on above: Order Comment: Speci men Type: BLOOD SPECIMENOrdering Facility: [facility] Address: [address] [place] [address] Performed By: #### 2 4321-2 ####[facility]ORATORYCLIA [id number] [address] [place] Creatinine [Mass/Vol] 0.55 mg/dL Low 0.58-0.96 [facility] Comment on above: Order Comment: Speci men Type: BLOOD SPECIMENOrdering Facility: [facility] Address: [address] [place] [address] Performed By: #### 2 4321-2 ####[facility]ORATORYCLIA [id number] [address] ESTIMATED GLOMERULAR FILTRATION RATE 106 mL/min/1.73m??? Normal >=60 [facility] Comment on above: Order Comment: Speci men Type: BLOOD SPECIMENOrdering Facility: [facility] Address: [address] [place] [address] Result Comment: Manasa mated Glomerular Filtration Rate (eGFR) is calculated using the 2020 CKD-EPI creatinine equation. This equation utilizes serum creatinine, sex, and age as parameters. The creatinine assay has traceable calibration to isotope dilution-mass spectrometry. Refer to KDIGO guidelines for clinical interpretation. In patients with unstable renal function, e.g. those with acute kidney injury, the eGFR may not accurately reflect actual GFR. Performed By: #### 2 4321-2 ####[facility]ORATORYCLIA [id number] [address] [place] Glucose [Mass/Vol] 143 mg/dL High 74-99 [facility] Comment on above: Order Comment: Leobardoi melany Type: BLOOD SPECIMENOrdering Facility: [facility] Address: [address] [place] [address] Result Comment: The [place] [employer] (ADA) provides guidance for cutoff values for fasting glucose and random glucose. The ADA defines fasting as no caloric intake for at least 8 hours. Fasting plasma glucose results between 100 to 125 mg/dL indicate increased risk for diabetes (prediabetes).Fasting plasma glucose results greater than or equal to 126 mg/dL meet the criteria for diagnosis of diabetes. In the absence of unequivocal hyperglycemia, results should be confirmed by repeat testing. In a patient with classic symptoms of hyperglycemia or hyperglycemic crisis, random plasma glucose results greater than or equal to 200 mg/dL meet the criteria for diagnosis of diabetes.Reference: Standards of Medical Care in Diabetes 2016, [place] [employer]. Diabetes Care. 2016.39(Suppl 1). Performed By: #### 2 4321-2 ####[facility] LABORATORYCLIA [id number] [address] STATES OF [facility] Potassium [Moles/Vol] 4.1 mmol/L Normal 3.7-5.1 [facility] Comment on above: Order Comment: Speci melany Type: BLOOD SPECIMENOrdering Facility: [facility] Address: [address] [place] [address] Performed By: #### 2 4321-2 ####[facility] LABORATORYCLIA [id number] [address] STATES [facility] Sodium [Moles/Vol] 139 mmol/L Normal 136-144 [facility] Comment on above: Order Comment: Tawanda mosley Type: BLOOD SPECIMENOrdering Facility: [facility] Address: [address] [place] [address] Performed By: #### 2 4321-2 ####[facility]ORATORYCLIA [id number] [address] STATES [facility] Urea nitrogen [Mass/Vol] 10 mg/dL Normal 7-21 [facility] Comment on above: Order Comment: Tawanda [facility] Type: BLOOD SPECIMENOrdering Facility: [facility] Address: [address] [place] [address] Performed By: #### 2 4321-2 ####[facility]ORATORYCLIA [id number] [address] [place] CASE MANAGEMon 08-05-2022 CASE MANAGEM Normal [facility] CBC panel Auto (Bld)on 08-05 Erythrocyte distribution width (RBC) [Ratio] 13.4 % Normal 11.5-15.0 [facility] Comment on above: Order Comment: Speci men Type: BLOOD SPECIMENOrdering Facility: [facility] Address: [address] [place] [address] Performed By: #### 5 8410-2 ####[facility]ORATORYCLIA [id number] [address] Hematocrit (Bld) [Volume fraction] 37.8 % Normal 36.0-46.0 [facility] Comment on above: Order Comment: Speci men Type: BLOOD SPECIMENOrdering Facility: [facility] Address: [address] [place] [address] Performed By: #### 5 8410-2 ####[facility]ATORYCLIA [id number] [address] Hemoglobin (Bld) [Mass/Vol] 11.9 g/dL Normal 11.5-15.5 [facility] Comment on above: Order Comment: Speci men Type: BLOOD SPECIMENOrdering Facility: [facility] Address: [address] [place] [address] Performed By: #### 5 8410-2 ####[facility]ORATORYCLIA [id number] [address] [place] MCH (RBC) [Entitic mass] 29.1 pg Normal 26.0-34.0 [facility] Comment on above: Order Comment: Speci men Type: BLOOD SPECIMENOrdering Facility: [facility] Address: [address] [place] [address] Performed By: #### 5 8410-2 ####[facility]ATORYCLIA [id number] [address] [place] MCHC (RBC) [Mass/Vol] 31.5 g/dL Normal 30.5-36.0 [facility] Comment on above: Order Comment: Speci men Type: BLOOD SPECIMENOrdering Facility: [facility] Address: [address] [place], [place] [address] Performed By: #### 5 8410-2 ####[facility]ORATORYCLIA [id number] [address] MCV (RBC) [Entitic vol] 92.4 fL Normal 80.0-100.0 [facility] Comment on above: Order Comment: Speci men Type: BLOOD SPECIMENOrdering Facility: [facility] Address: [address] [place] [address] Performed By: #### 5 8410-2 ####[facility]ATORYCLIA [id number] [address] Nucleated RBC (Bld) [#/Vol] 0.02 10*3/uL High <0.01 [facility] Comment on above: Order Comment: Speci men Type: BLOOD SPECIMENOrdering Facility: [facility] Address: [address] [place] [address] Performed By: #### 5 8410-2 ####[facility]ORYCLIA [id number] [address] Platelet mean volume (Bld) [Entitic vol] 10.1 fL Normal 9.0-12.7 [facility] Comment on above: Order Comment: Speci men Type: BLOOD SPECIMENOrdering Facility: [facility] Address: [address] [place] [address] Performed By: #### 5 8410-2 ####[facility]ATORYCLIA [id number] [address] Platelets (Bld) [#/Vol] 309 10*3/uL Normal 150-400 [facility] Comment on above: Order Comment: Speci men Type: BLOOD SPECIMENOrdering Facility: [facility] Address: [address] [place] [address] Performed By: #### 5 8410-2 ####[facility]ORATORYCLIA [id number] [address] OF [place] RBC (Bld) [#/Vol] 4.09 10*6/uL Normal 3.90-5.20 [facility] Comment on above: Order Comment: Speci men Type: BLOOD SPECIMENOrdering Facility: [facility] Address: [address] [place] [address] Performed By: #### 5 8410-2 ####[facility]ORATORYCLIA [id number] [place] [address] [place] WBC (Bld) [#/Vol] 13.91 10*3/uL High 3.70-11.00 [facility] Comment on above: Order Comment: Speci men Type: BLOOD SPECIMENOrdering Facility: [facility] Address: [address] [place] [address] Performed By: #### 5 8410-2 ####[facility]ATORYCLIA [id number] [address] CONSULT PROGon 08-05-2022 CONSULT PROG Normal [facility] CONSULT PROG Normal [facility] CT BRAIN WO IVCONon 08-05-19 CT BRAIN WO IVCON Normal [facility] Comprehensive metabolic 2000 panelon 08-05-2022 Albumin [Mass/Vol] 4.2 g/dL Normal 3.9-4.9 [facility] Comment on above: Order Comment: Speci men Type: BLOOD SPECIMENOrdering Facility: [facility] Address: [address] [place] [address] Performed By: #### 2 4323-8, ####[facility]ATORYCLIA [id number] [address] [place] ALP [Catalytic activity/Vol] 104 U/L Normal 34-123 [facility] Comment on above: Order Comment: Speci men Type: BLOOD SPECIMENOrdering Facility: [facility] Address: [address] [place] [address] Performed By: #### 2 4323-8, ####[facility]ORATORYCLIA [id number] [address] [place] ALT With P-5'-P [Catalytic activity/Vol] 15 U/L Normal 7-38 [facility] Comment on above: Order Comment: Speci men Type: BLOOD SPECIMENOrdering Facility: [facility] Address: [address] [address] Performed By: #### 2 432-8, ####[facility]ORATORYCLIA [id number] [address] STATES OF [facility] Anion gap [Moles/Vol] 10 mmol/L Normal 9-18 [facility] Comment on above: Order Comment: Speci men Type: BLOOD SPECIMENOrdering Facility: [facility] Address: [address] [address] Performed By: #### 2 43209-18, ####[facility]ORATORYCLIA [id number] [place] [address] [place] AST With P-5'-P [Catalytic activity/Vol] 20 U/L Normal 13-35 [facility] Comment on above: Order Comment: Speci men Type: BLOOD SPECIMENOrdering Facility: [facility] Address: [address] [place] [address] Performed By: #### 2 4328, ####[facility]ATORYCLIA [id number] [address] [place] Bilirubin [Mass/Vol] 0.3 mg/dL Normal 0.2-1.3 [facility] Comment on above: Order Comment: Speci men Type: BLOOD SPECIMENOrdering Facility: [facility] Address: [address] [address] Performed By: #### 2 43209-18, ####[facility]ATORYCLIA [id number] [address] [place] Calcium [Mass/Vol] 9.4 mg/dL Normal 8.5-10.2 [facility] Comment on above: Order Comment: Speci men Type: BLOOD SPECIMENOrdering Facility: [facility] Address: [address] [address] Performed By: #### 2 4323-8, ####[facility]ORATORYCLIA [id number] [place], [place] [id number] [place] [address] [place] Chloride [Moles/Vol] 102 mmol/L Normal 97-105 [facility] Comment on above: Order Comment: Speci men Type: BLOOD SPECIMENOrdering Facility: [facility] Address: [address] [place] [address] Performed By: #### 2 4323-8, ####[facility]ORATORYCLIA [id number] [address] [place] CO2 [Moles/Vol] 28 mmol/L Normal 22-30 [facility] Comment on above: Order Comment: Speci men Type: BLOOD SPECIMENOrdering Facility: [facility] Address: [address] [place] [address] Performed By: #### 2 4323-8, ####[facility] SERVICESCLIA [id number] [address] OF [facility] Creatinine [Mass/Vol] 0.57 mg/dL Low 0.58-0.96 [facility] Comment on above: Order Comment: Speci men Type: BLOOD SPECIMENOrdering Facility: [facility] Address: [address] [place] [address] Performed By: #### 2 4323-8, ####[facility]ORATORYCLIA [id number] [address] ESTIMATED GLOMERULAR FILTRATION RATE 105 mL/min/1.73m??? Normal >=60 [facility] Comment on above: Order Comment: Speci men Type: BLOOD SPECIMENOrdering Facility: [facility] Address: [address] [place] [address] Result Comment: Manasa mated Glomerular Filtration Rate (eGFR) is calculated using the 2020 CKD-EPI creatinine equation. This equation utilizes serum creatinine, sex, and age as parameters. The creatinine assay has traceable calibration to isotope dilution-mass spectrometry. Refer to KDIGO guidelines for clinical interpretation. In patients with unstable renal function, e.g. those with acute kidney injury, the eGFR may not accurately reflect actual GFR. Performed By: #### 2 4323-8, ####[facility] SERVICESCLIA [id number] [place] [address] [place] Glucose [Mass/Vol] 121 mg/dL High 74-99 [facility] Comment on above: Order Comment: Tawanda mosley Type: BLOOD SPECIMENOrdering Facility: [facility] Address: [address] [place] [address] Result Comment: The [place] Diabetes [employer] (ADA) provides guidance for cutoff values for fasting glucose and random glucose. The ADA defines fasting as no caloric intake for at least 8 hours. Fasting plasma glucose results between 100 to 125 mg/dL indicate increased risk for diabetes (prediabetes).Fasting plasma glucose results greater than or equal to 126 mg/dL meet the criteria for diagnosis of diabetes. In the absence of unequivocal hyperglycemia, results should be confirmed by repeat testing. In a patient with classic symptoms of hyperglycemia or hyperglycemic crisis, random plasma glucose results greater than or equal to 200 mg/dL meet the criteria for diagnosis of diabetes.Reference: Standards of Medical Care in Diabetes 2016, [place] [employer]. Diabetes Care. 2016.39(Suppl 1). Performed By: #### 2 4323-8, ####[facility] SERVICESCLIA [id number] [place] [address] [place] Potassium [Moles/Vol] 4.1 mmol/L Normal 3.7-5.1 [facility] Comment on above: Order Comment: Tawanda mosley Type: BLOOD SPECIMENOrdering Facility: [facility] Address: [address] [address] Performed By: #### 2 4323-8, ####[facility]ORATORYCLIA [id number] [place] [address] [place] Protein [Mass/Vol] 7.5 g/dL Normal 6.3-8.0 [facility] Comment on above: Order Comment: Tawanda mosley Type: BLOOD SPECIMENOrdering Facility: [facility] Address: [address] [address] Performed By: #### 2 4323-8, 69859-2 ####[facility]ORATORYCLIA [id number] [address] [place] Sodium [Moles/Vol] 140 mmol/L Normal 136-144 [facility] Comment on above: Order Comment: Speci men Type: BLOOD SPECIMENOrdering Facility: [facility] Address: [address] [place] [address] Performed By: #### 2 4323-8, ####[facility]ORATORYCLIA [id number] [place] [address] [place] Urea nitrogen [Mass/Vol] 10 mg/dL Normal 7-21 [facility] Comment on above: Order Comment: Speci men Type: BLOOD SPECIMENOrdering Facility: [facility] Address: [address] [place] [address] Performed By: #### 2 4328, ####[facility]ORATORYCLIA [id number] [place] [address] [place] Magnesium SerPl-mCncon 08-05 Magnesium [Mass/Vol] 2.2 mg/dL Normal 1.7-2.3 [facility] Comment on above: Order Comment: Speci men Type: BLOOD SPECIMENOrdering Facility: [facility] Address: [address] [place] [address] Performed By: #### 2 4328, ####[facility]ORATORYCLIA [id number] [place] [address] [place] NURSING PROGon 08-05-2022 NURSING PROG Normal [facility] NURSING PROG Normal [facility] THERAPY NTon 08-05-2022 THERAPY NT Normal [facility] XR ABDOMEN 1V SUPINEon 08-05 XR ABDOMEN 1V SUPINE Normal [facility] XR CHEST 1V FRONTALon 2022 XR CHEST 1V FRONTAL Normal [facility] ALLIED HEALTHon 01-20-2023 ALLIED HEALTH Normal [facility] CASE MANAGEMon 08-02-2022 CASE MANAGEM Normal [facility] CONSULT PROGon 08-02-2022 CONSULT PROG Normal [facility] THERAPY NTon 08-02-2022 THERAPY NT Normal [facility] THERAPY NT Normal [facility] CBC W Auto Differential pane l (Bld)on 08-01-2022 Basophils (Bld) [#/Vol] 0.07 10*3/uL Normal <0.11 [facility] Comment on above: Order Comment: Speci men Type: BLOOD SPECIMENOrdering Facility: [facility] Address: [address] [place] [address] Performed By: #### 5 7021-8 ####[facility] LABORATORYCLIA [id number] [place] [address] [place] Basophils/100 WBC (Bld) 0.7 % Normal [facility] Comment on above: Order Comment: Speci men Type: BLOOD SPECIMENOrdering Facility: [facility] Address: [address] [place] [address] Performed By: #### 5 7021-8 ####[facility]ORATORYCLIA [id number] [place] [address] [place] Differential cell count method Nom (Bld) Auto Normal [facility] Comment on above: Order Comment: Speci men Type: BLOOD SPECIMENOrdering Facility: [facility] Address: [address] [place] [address] Performed By: #### 5 7021-8 ####[facility] LABORATORYCLIA [id number] [place] [address] [place] Eosinophils (Bld) [#/Vol] 0.46 10*3/uL High <0.46 [facility] Comment on above: Order Comment: Speci men Type: BLOOD SPECIMENOrdering Facility: [facility] Address: [address] [address] Performed By: #### 5 7021-8 ####[facility]ORATORYCLIA [id number] [place] [address] [place] Eosinophils/100 WBC (Bld) 4.5 % Normal [facility] Comment on above: Order Comment: Speci men Type: BLOOD SPECIMENOrdering Facility: [facility] Address: [address] [place] [address] Performed By: #### 5 7021-8 ####[facility] LABORATORYCLIA [id number] [address] [place] Erythrocyte distribution width (RBC) [Ratio] 13.3 % Normal 11.5-15.0 [facility] Comment on above: Order Comment: Speci men Type: BLOOD SPECIMENOrdering Facility: [facility] Address: [address] [place] [address] Performed By: #### 5 7021-8 ####[facility]ORATORYCLIA [id number] [address] [place] Hematocrit (Bld) [Volume fraction] 31.2 % Low 36.0-46.0 [facility] Comment on above: Order Comment: Speci men Type: BLOOD SPECIMENOrdering Facility: [facility] Address: [address] [place] [address] Performed By: #### 5 7021-8 ####[facility] LABORATORYCLIA [id number] [address] Hemoglobin (Bld) [Mass/Vol] 9.7 g/dL Low 11.5-15.5 [facility] Comment on above: Order Comment: Speci men Type: BLOOD SPECIMENOrdering Facility: [facility] Address: [address] [place] [address] Performed By: #### 5 7021-8 ####[facility]ORATORYCLIA [id number] [address] Immature granulocytes (Bld) [#/Vol] 0.10 10*3/uL High <0.10 [facility] Comment on above: Order Comment: Speci men Type: BLOOD SPECIMENOrdering Facility: [facility] Address: [address] [place] [address] Performed By: #### 5 7021-8 ####[facility]ORATORYCLIA [id number] [address] Immature granulocytes/100 WBC (Bld) 1.0 % Normal [facility] Comment on above: Order Comment: Speci men Type: BLOOD SPECIMENOrdering Facility: [facility] Address: [address] [place] [address] Performed By: #### 5 7021-8 ####[facility]ORATORYCLIA [id number] [address] Lymphocytes (Bld) [#/Vol] 2.84 10*3/uL Normal 1.00-4.00 [facility] Comment on above: Order Comment: Speci men Type: BLOOD SPECIMENOrdering Facility: [facility] Address: [address] [place] [address] Performed By: #### 5 7021-8 ####[facility]ORATORYCLIA [id number] [address] Lymphocytes/100 WBC (Bld) 27.5 % Normal [facility] Comment on above: Order Comment: Speci men Type: BLOOD SPECIMENOrdering Facility: [facility] Address: [address] [place] [address] Performed By: #### 5 7021-8 ####[facility] LABORATORYCLIA [id number] [address] STATES [facility] MCH (RBC) [Entitic mass] 29.0 pg Normal 26.0-34.0 [facility] Comment on above: Order Comment: Speci men Type: BLOOD SPECIMENOrdering Facility: [facility] Address: [address] [place] [address] Performed By: #### 5 7021-8 ####[facility]ATORYCLIA [id number] [address] MCHC (RBC) [Mass/Vol] 31.1 g/dL Normal 30.5-36.0 [facility] Comment on above: Order Comment: Speci men Type: BLOOD SPECIMENOrdering Facility: [facility] Address: [address] [place] [address] Performed By: #### 5 7021-8 ####[facility] LABORATORYCLIA [id number] [address] [place] MCV (RBC) [Entitic vol] 93.4 fL Normal 80.0-100.0 [facility] Comment on above: Order Comment: Speci men Type: BLOOD SPECIMENOrdering Facility: [facility] Address: [address] [place] [address] Performed By: #### 5 7021-8 ####[facility] LABORATORYCLIA [id number] [address] [place] Monocytes (Bld) [#/Vol] 0.81 10*3/uL Normal <0.87 [facility] Comment on above: Order Comment: Speci men Type: BLOOD SPECIMENOrdering Facility: [facility] Address: [address] [place] [address] Performed By: #### 5 7021-8 ####[facility] LABORATORYCLIA [id number] [address] [place] Monocytes/100 WBC (Bld) 7.8 % Normal [facility] Comment on above: Order Comment: Speci men Type: BLOOD SPECIMENOrdering Facility: [facility] Address: [address] [place] [address] Performed By: #### 5 7021-8 ####[facility] LABORATORYCLIA [id number] [address] [place] Neutrophils (Bld) [#/Vol] 6.04 10*3/uL Normal 1.45-7.50 [facility] Comment on above: Order Comment: Speci men Type: BLOOD SPECIMENOrdering Facility: [facility] Address: [address] [place] [address] Performed By: #### 5 7021-8 ####[facility] LABORATORYCLIA [id number] [address] [place] Neutrophils/100 WBC (Bld) 58.5 % Normal [facility] Comment on above: Order Comment: Speci men Type: BLOOD SPECIMENOrdering Facility: [facility] Address: [address] [address] Performed By: #### 5 7021-8 ####[facility] LABORATORYCLIA [id number] [address] Nucleated RBC (Bld) [#/Vol] 10*3/uL Normal <0.01 [facility] Comment on above: Order Comment: Speci men Type: BLOOD SPECIMENOrdering Facility: [facility] Address: [address] [address] Performed By: #### 5 7021-8 ####[facility] LABORATORYCLIA [id number] [address] Nucleated RBC/100 WBC (Bld) [Ratio] 0.0 /100 WBC Normal [facility] Comment on above: Order Comment: Speci men Type: BLOOD SPECIMENOrdering Facility: [facility] Address: [address] [address] Performed By: #### 5 7021-8 ####[facility] LABORATORYCLIA [id number] [address] Platelet mean volume (Bld) [Entitic vol] 10.1 fL Normal 9.0-12.7 [facility] Comment on above: Order Comment: Speci men Type: BLOOD SPECIMENOrdering Facility: [facility] Address: [address] [address] Performed By: #### 5 7021-8 ####[facility] LABORATORYCLIA [id number] [address] [place] Platelets (Bld) [#/Vol] 265 10*3/uL Normal 150-400 [facility] Comment on above: Order Comment: Speci men Type: BLOOD SPECIMENOrdering Facility: [facility] Address: [address] [place] [address] Performed By: #### 5 7021-8 ####[facility] LABORATORYCLIA [id number] [address] [place] RBC (Bld) [#/Vol] 3.34 10*6/uL Low 3.90-5.20 [facility] Comment on above: Order Comment: Speci men Type: BLOOD SPECIMENOrdering Facility: [facility] Address: [address] [place] [address] Performed By: #### 5 7021-8 ####[facility] LABORATORYCLIA [id number] [address] WBC (Bld) [#/Vol] 10.32 10*3/uL Normal 3.70-11.00 [facility] Comment on above: Order Comment: Speci men Type: BLOOD SPECIMENOrdering Facility: [facility] Address: [address] [place] [address] Performed By: #### 5 7021-8 ####[facility] LABORATORYCLIA [id number] [address] OF [facility] CONSULT PROGon 08-01-2022 CONSULT PROG Normal [facility] CONSULT PROG Normal [facility] CASE MANAGEMon 07-31-2022 CASE MANAGEM Normal [facility] CONSULT PROGon 07-31-2022 CONSULT PROG Normal [facility] CONSULT PROG Normal [facility] NUTRITIONon 07-31-2022 NUTRITION Normal [facility] THERAPY NTon 07-31-2022 THERAPY NT Normal [facility] CBC panel Auto (Bld)on 07-30 Erythrocyte distribution width (RBC) [Ratio] 13.6 % Normal 11.5-15.0 [facility] Comment on above: Order Comment: Speci men Type: BLOOD SPECIMENOrdering Facility: [facility] Address: [address] [place] [address] Performed By: #### 5 8410-2 ####[facility] LABORATORYCLIA [id number] [address] [place] Hematocrit (Bld) [Volume fraction] 32.2 % Low 36.0-46.0 [facility] Comment on above: Order Comment: Speci men Type: BLOOD SPECIMENOrdering Facility: [facility] Address: [address] [place] [address] Performed By: #### 5 8410-2 ####[facility] LABORATORYCLIA [id number] [address] STATES OF [facility] Hemoglobin (Bld) [Mass/Vol] 10.0 g/dL Low 11.5-15.5 [facility] Comment on above: Order Comment: Speci men Type: BLOOD SPECIMENOrdering Facility: [facility] Address: [address] [place] [address] Performed By: #### 5 8410-2 ####[facility] LABORATORYCLIA [id number] [address] STATES OF [facility] MCH (RBC) [Entitic mass] 29.1 pg Normal 26.0-34.0 [facility] Comment on above: Order Comment: Speci men Type: BLOOD SPECIMENOrdering Facility: [facility] Address: [address] [place] [address] Performed By: #### 5 8410-2 ####[facility] LABORATORYCLIA [id number] [address] MCHC (RBC) [Mass/Vol] 31.1 g/dL Normal 30.5-36.0 [facility] Comment on above: Order Comment: Speci men Type: BLOOD SPECIMENOrdering Facility: [facility] Address: [address] [place] [address] Performed By: #### 5 8410-2 ####[facility] LABORATORYCLIA [id number] [address] [place] MCV (RBC) [Entitic vol] 93.6 fL Normal 80.0-100.0 [facility] Comment on above: Order Comment: Speci men Type: BLOOD SPECIMENOrdering Facility: [facility] Address: [address] [place] [address] Performed By: #### 5 8410-2 ####[facility] LABORATORYCLIA [id number] [place] [address] [place] Nucleated RBC (Bld) [#/Vol] 10*3/uL Normal <0.01 [facility] Comment on above: Order Comment: Speci men Type: BLOOD SPECIMENOrdering Facility: [facility] Address: [address] [place] [address] Performed By: #### 5 8410-2 ####[facility] LABORATORYCLIA [id number] [place] [address] [place] Platelet mean volume (Bld) [Entitic vol] 9.9 fL Normal 9.0-12.7 [facility] Comment on above: Order Comment: Speci men Type: BLOOD SPECIMENOrdering Facility: [facility] Address: [address] [place] [address] Performed By: #### 5 8410-2 ####[facility]ORATORYCLIA [id number] [address] [place] Platelets (Bld) [#/Vol] 291 10*3/uL Normal 150-400 [facility] Comment on above: Order Comment: Speci men Type: BLOOD SPECIMENOrdering Facility: [facility] Address: [address] [place] [address] Performed By: #### 5 8410-2 ####[facility]ORATORYCLIA [id number] [place] [address] [place] RBC (Bld) [#/Vol] 3.44 10*6/uL Low 3.90-5.20 [facility] Comment on above: Order Comment: Speci men Type: BLOOD SPECIMENOrdering Facility: [facility] Address: [address] [place] [address] Performed By: #### 5 8410-2 ####[facility]ORATORYCLIA [id number] [address] [place] WBC (Bld) [#/Vol] 12.20 10*3/uL High 3.70-11.00 [facility] Comment on above: Order Comment: Speci men Type: BLOOD SPECIMENOrdering Facility: [facility] Address: [address] [place] [address] Performed By: #### 5 8410-2 ####[facility] SERVICESCLIA [id number] [address] [place] CONSULT PROGon 07-30-2022 CONSULT PROG Normal [facility] HbA1c (Bld)on 07-30-2022 Average glucose Estimated from glycated hemoglobin (Bld) [Mass/Vol] 134 mg/dL Normal [facility] Comment on above: Order Comment: Specfredy mosley Type: BLOOD SPECIMENOrdering Facility: [facility] Address: [address] [place] [address] Result Comment: eAG: (Estimated average glucose) is a calculated value from HgbA1c and is sales representative jewelry of the average blood glucose level in the last 2-3 month period. Performed By: #### 5 5454-3 ####[facility]ORATORYCLIA [id number] [address] HbA1c (Bld) [Mass fraction] 6.3 % High 4.3-5.6 [facility] Comment on above: Order Comment: Tawanda mosley Type: BLOOD SPECIMENOrdering Facility: [facility] Address: [address] [place] [address] Result Comment: [place] Diabetes Association guidelines indicate that patients with HgbA1c in the range 5.7-6.4% are at increased risk for development of diabetes, and intervention by lifestyle modification may be beneficial. HgbA1c greater or equal to 6.5% is considered diagnostic of diabetes. Performed By: #### 5 5454-3 ####[facility]ORATORYCLIA [id number] [address] [place] THERAPY NTon 07-30-2022 THERAPY NT Normal [facility] THERAPY NT [facility] ALLIED HEALTHon 07-29-2022 ALLIED HEALTH Normal [facility] CASE MANAGEMon 07-29-2022 CASE MANAGEM Normal [facility] CONSULT PROGon 07-29-2022 CONSULT PROG Normal [facility] CONSULT PROG [facility] ECG COMPLETEon 07-29-2022 ECG COMPLETE Normal [facility] NURSING PROGon 07-29-2022 NURSING PROG Normal [facility] NURSING PROG Normal [facility] THERAPY NTon 07-29-2022 THERAPY NT Normal [facility] Basic metabolic 2000 panelon 07-28-2022 Anion gap [Moles/Vol] 8 mmol/L Low 9-18 [facility] Comment on above: Order Comment: Speci men Type: BLOOD SPECIMENOrdering Facility: [facility] Address: [address] [place] [address] Performed By: #### 2 4321-2 ####[facility] LABORATORYCLIA [id number] [place] [address] [place] Calcium [Mass/Vol] 8.3 mg/dL Low 8.5-10.2 [facility] Comment on above: Order Comment: Speci men Type: BLOOD SPECIMENOrdering Facility: [facility] Address: [address] [place] [address] Performed By: #### 2 4321-2 ####[facility]ORATORYCLIA [id number] [place] [address] [place] Chloride [Moles/Vol] 109 mmol/L High 97-105 [facility] Comment on above: Order Comment: Speci men Type: BLOOD SPECIMENOrdering Facility: [facility] Address: [address] [place] [address] Performed By: #### 2 4321-2 ####[facility]ORATORYCLIA [id number] [place] [address] [place] CO2 [Moles/Vol] 26 mmol/L Normal 22-30 [facility] Comment on above: Order Comment: Speci men Type: BLOOD SPECIMENOrdering Facility: [facility] Address: [address] [place] [address] Performed By: #### 2 4321-2 ####[facility]ORATORYCLIA [id number] [place] [address] [place] Creatinine [Mass/Vol] 0.30 mg/dL Low 0.58-0.96 [facility] Comment on above: Order Comment: Tawanda mosley Type: BLOOD SPECIMENOrdering Facility: [facility] Address: [address] [place] [address] Performed By: #### 2 4321-2 ####[facility] LABORATORYCLIA [id number] [address] STATES [place] ESTIMATED GLOMERULAR FILTRATION RATE 123 mL/min/1.73m??? Normal >=60 [facility] Comment on above: Order Comment: Leobardofredy mosley Type: BLOOD SPECIMENOrdering Facility: [facility] Address: [place] [address] Result Comment: Manasa mated Glomerular Filtration Rate (eGFR) is calculated using the 2020 CKD-EPI creatinine equation. This equation utilizes serum creatinine, sex, and age as parameters. The creatinine assay has traceable calibration to isotope dilution-mass spectrometry. Refer to KDIGO guidelines for clinical interpretation. In patients with unstable renal function, e.g. those with acute kidney injury, the eGFR may not accurately reflect actual GFR. Performed By: #### 2 4321-2 ####[facility] LABORATORYIA [id number] [place] [address] [place] Glucose [Mass/Vol] 211 mg/dL High 74-99 [facility] Comment on above: Order Comment: Tawanda mosley Type: BLOOD SPECIMENOrdering Facility: [facility] Address: [address] [place] [address] Result Comment: The [place] Diabetes Association (ADA) provides guidance for cutoff values for fasting glucose and random glucose. The ADA defines fasting as no caloric intake for at least 8 hours. Fasting plasma glucose results between 100 to 125 mg/dL indicate increased risk for diabetes (prediabetes).Fasting plasma glucose results greater than or equal to 126 mg/dL meet the criteria for diagnosis of diabetes. In the absence of unequivocal hyperglycemia, results should be confirmed by repeat testing. In a patient with classic symptoms of hyperglycemia or hyperglycemic crisis, random plasma glucose results greater than or equal to 200 mg/dL meet the criteria for diagnosis of diabetes.Reference: Standards of Medical Care in Diabetes 2016, [place] Diabetes Association. Diabetes Care. 2016.39(Suppl 1). Performed By: #### 2 4321-2 ####[facility]ORATORYCLIA [id number] [address] STATES OF [facility] Potassium [Moles/Vol] 3.4 mmol/L Low 3.7-5.1 [facility] Comment on above: Order Comment: Speci men Type: BLOOD SPECIMENOrdering Facility: [facility] Address: [address] [place] [address] Performed By: #### 2 4321-2 ####[facility]ORATORYCLIA [id number] [address] [place] Sodium [Moles/Vol] 143 mmol/L Normal 136-144 [facility] Comment on above: Order Comment: Speci men Type: BLOOD SPECIMENOrdering Facility: [facility] Address: [address] [place] [address] Performed By: #### 2 4321-2 ####[facility] LABORATORYCLIA [id number] [address] STATES [facility] Urea nitrogen [Mass/Vol] 9 mg/dL Normal 7-21 [facility] Comment on above: Order Comment: Speci men Type: BLOOD SPECIMENOrdering Facility: [facility] Address: [address] [place] [address] Performed By: #### 2 4321-2 ####[facility]ORATORYCLIA [id number] [address] [place] CBC W Auto Differential pane l (Bld)on 07-28-2022 Basophils (Bld) [#/Vol] 0.08 10*3/uL Normal <0.11 [facility] Comment on above: Order Comment: Speci men Type: BLOOD SPECIMENOrdering Facility: [facility] Address: [address] [place] [address] Performed By: #### 5 7021-8 ####[facility]ORATORYCLIA [id number] [address] [place] Basophils/100 WBC (Bld) 0.7 % Normal [facility] Comment on above: Order Comment: Speci men Type: BLOOD SPECIMENOrdering Facility: [facility] Address: [address] [place] [address] Performed By: #### 5 7021-8 ####[facility]ORATORYCLIA [id number] [address] Differential cell count method Nom (Bld) Auto Normal [facility] Comment on above: Order Comment: Speci men Type: BLOOD SPECIMENOrdering Facility: [facility] Address: [address] [place] [address] Performed By: #### 5 7021-8 ####[facility]ORATORYCLIA [id number] [address] [place] Eosinophils (Bld) [#/Vol] 0.34 10*3/uL Normal <0.46 [facility] Comment on above: Order Comment: Speci men Type: BLOOD SPECIMENOrdering Facility: [facility] Address: [address] [place] [address] Performed By: #### 5 7021-8 ####[facility]ORATORYCLIA [id number] [address] Eosinophils/100 WBC (Bld) 2.8 % Normal [facility] Comment on above: Order Comment: Speci men Type: BLOOD SPECIMENOrdering Facility: [facility] Address: [address] [place] [address] Performed By: #### 5 7021-8 ####[facility]ORATORYCLIA [id number] [address] Erythrocyte distribution width (RBC) [Ratio] 13.7 % Normal 11.5-15.0 [facility] Comment on above: Order Comment: Speci men Type: BLOOD SPECIMENOrdering Facility: [facility] Address: [address] [place] [address] Performed By: #### 5 7021-8 ####[facility]ORATORYCLIA [id number] [address] [place] Hematocrit (Bld) [Volume fraction] 29.9 % Low 36.0-46.0 [facility] Comment on above: Order Comment: Speci men Type: BLOOD SPECIMENOrdering Facility: [facility] Address: [address] [place] [address] Performed By: #### 5 7021-8 ####[facility]ORATORYCLIA [id number] [place] [address] [place] Hemoglobin (Bld) [Mass/Vol] 9.0 g/dL Low 11.5-15.5 [facility] Comment on above: Order Comment: Speci men Type: BLOOD SPECIMENOrdering Facility: [facility] Address: [address] [place] [address] Performed By: #### 5 7021-8 ####[facility]ORATORYCLIA [id number] [address] [place] Immature granulocytes (Bld) [#/Vol] 0.08 10*3/uL Normal <0.10 [facility] Comment on above: Order Comment: Speci men Type: BLOOD SPECIMENOrdering Facility: [facility] Address: [address] [place] [address] Performed By: #### 5 7021-8 ####[facility]ORATORYCLIA [id number] [address] [place] Immature granulocytes/100 WBC (Bld) 0.7 % Normal [facility] Comment on above: Order Comment: Speci men Type: BLOOD SPECIMENOrdering Facility: [facility] Address: [address] [place] [address] Performed By: #### 5 7021-8 ####[facility]ORATORYCLIA [id number] [place] [address] [place] Lymphocytes (Bld) [#/Vol] 4.17 10*3/uL High 1.00-4.00 [facility] Comment on above: Order Comment: Speci men Type: BLOOD SPECIMENOrdering Facility: [facility] Address: [address] [place] [address] Performed By: #### 5 7021-8 ####[facility]ORATORYCLIA [id number] [address] Lymphocytes/100 WBC (Bld) 34.0 % Normal [facility] Comment on above: Order Comment: Speci men Type: BLOOD SPECIMENOrdering Facility: [facility] Address: [address] [place] [address] Performed By: #### 5 7021-8 ####[facility]ORATORYCLIA [id number] [address] MCH (RBC) [Entitic mass] 29.1 pg Normal 26.0-34.0 [facility] Comment on above: Order Comment: Speci men Type: BLOOD SPECIMENOrdering Facility: [facility] Address: [address] [place] [address] Performed By: #### 5 7021-8 ####[facility]ORATORYCLIA [id number] [address] STATES [facility] MCHC (RBC) [Mass/Vol] 30.1 g/dL Low 30.5-36.0 [facility] Comment on above: Order Comment: Speci men Type: BLOOD SPECIMENOrdering Facility: [facility] Address: [address] [place] [address] Performed By: #### 5 7021-8 ####[facility]ORATORYCLIA [id number] [address] STATES OF [facility] MCV (RBC) [Entitic vol] 96.8 fL Normal 80.0-100.0 [facility] Comment on above: Order Comment: Speci men Type: BLOOD SPECIMENOrdering Facility: [facility] Address: [address] [place] [address] Performed By: #### 5 7021-8 ####[facility]ORATORYCLIA [id number] [address] Monocytes (Bld) [#/Vol] 0.86 10*3/uL Normal <0.87 [facility] Comment on above: Order Comment: Speci men Type: BLOOD SPECIMENOrdering Facility: [facility] Address: [address] [place] [address] Performed By: #### 5 7021-8 ####[facility] LABORATORYCLIA [id number] [address] [place] Monocytes/100 WBC (Bld) 7.0 % Normal [facility] Comment on above: Order Comment: Speci men Type: BLOOD SPECIMENOrdering Facility: [facility] Address: [address] [place] [address] Performed By: #### 5 7021-8 ####[facility]ORATORYCLIA [id number] [address] [place] Neutrophils (Bld) [#/Vol] 6.72 10*3/uL Normal 1.45-7.50 [facility] Comment on above: Order Comment: Speci men Type: BLOOD SPECIMENOrdering Facility: [facility] Address: [address] [place] [address] Performed By: #### 5 7021-8 ####[facility]ORATORYCLIA [id number] [address] [place] Neutrophils/100 WBC (Bld) 54.8 % Normal [facility] Comment on above: Order Comment: Speci men Type: BLOOD SPECIMENOrdering Facility: [facility] Address: [address] [place] [address] Performed By: #### 5 7021-8 ####[facility]ORATORYCLIA [id number] [place] [address] [place] Nucleated RBC (Bld) [#/Vol] 10*3/uL Normal <0.01 [facility] Comment on above: Order Comment: Speci men Type: BLOOD SPECIMENOrdering Facility: [facility] Address: [address] [place] [address] Performed By: #### 5 7021-8 ####[facility]ORATORYCLIA [id number] [address] [place] Nucleated RBC/100 WBC (Bld) [Ratio] 0.0 /100 WBC Normal [facility] Comment on above: Order Comment: Speci men Type: BLOOD SPECIMENOrdering Facility: [facility] Address: [address] [place] [address] Performed By: #### 5 7021-8 ####[facility]ORATORYCLIA [id number] [address] [place] Platelet mean volume (Bld) [Entitic vol] 10.3 fL Normal 9.0-12.7 [facility] Comment on above: Order Comment: Speci men Type: BLOOD SPECIMENOrdering Facility: [facility] Address: [address] [place] [address] Performed By: #### 5 7021-8 ####[facility]ORATORYCLIA [id number] [address] [place] Platelets (Bld) [#/Vol] 277 10*3/uL Normal 150-400 [facility] Comment on above: Order Comment: Speci men Type: BLOOD SPECIMENOrdering Facility: [facility] Address: [address] [place] [address] Performed By: #### 5 7021-8 ####[facility]ORATORYCLIA [id number] [place] [address] [place] RBC (Bld) [#/Vol] 3.09 10*6/uL Low 3.90-5.20 [facility] Comment on above: Order Comment: Speci men Type: BLOOD SPECIMENOrdering Facility: [facility] Address: [address] [place] [address] Performed By: #### 5 7021-8 ####[facility]ORATORYCLIA [id number] [place] [address] [place] WBC (Bld) [#/Vol] 12.25 10*3/uL High 3.70-11.00 [facility] Comment on above: Order Comment: Speci men Type: BLOOD SPECIMENOrdering Facility: [facility] Address: [address] [place] [address] Performed By: #### 5 7021-8 ####[facility]ORATORYCLIA [id number] [place], [place] [id number] [place] [address] [place] CONSULT PROGon 07-28-2022 CONSULT PROG Normal [facility] CONSULT PROGon 07-27-2022 CONSULT PROG Normal [facility] ANES POSTPROC EVALon 023 ANES POSTPROC EVAL Normal [facility] ANES PRE-OPon 07-26-2022 ANES PRE-OP Normal [facility] BRIEF OP NOTon 07-26-2022 BRIEF OP NOT Normal [facility] Bacteria Spec Anaerobe Culto n 07-26-2022 Bacteria identified Anaer cx Nom (Unsp spec) Negative Normal [facility] Comment on above: Performed By: #### 1 1475-1, 6462-6, 635-3 ####[facility]ORATORYCLIA [id number] [address] Bacteria identified Anaer cx Nom (Unsp spec) Negative Normal [facility] Comment on above: Performed By: #### 6 462-6, 73839-7, 935-3 ####[facility] LABORATORYCLIA [id number] [place] [id number] [place] Bacteria Wnd Culton 07-26-19 23 Bacteria identified Cx Nom (Wound) Normal [facility] Comment on above: Performed By: #### 1 1475-1, 6462-6, 485-3 ####[facility]ORATORYCLIA [id number] [place] [address] [place] Bacteria identified Cx Nom (Wound) ORGANISM ID: 1 Rare Staphylococcus aureus Refer to specimen collected on 07/25/2022 GRAM STAIN: No organisms seen Few Polymorphonuclear leukocytes Many Red Blood Cells Abnormal [facility] Comment on above: Performed By: #### 6 462-6, 47538-0, 635-3 ####[facility]ORATORYCLIA [id number] [place] [id number] [place] CASE MANAGEMon 07-26-2022 CASE MANAGEM Normal [facility] CONSULT PROGon 07-26-2022 CONSULT PROG Normal [facility] CONSULT PROG Normal [facility] Microorganism Spec Culton Microorganism identified Cx Nom (Unsp spec) CULTURE, FUNGAL: No Fungus isolated after 28 days FUNGAL SMEAR: No fungus seen [facility] Comment on above: Performed By: #### 1 1475-1, 6462-6, 635-3 ####[facility]ORATORYCLIA [id number] [place], [place] [address] [place] [address] Microorganism identified Cx Nom (Unsp spec) CULTURE, AFB: No Acid Fast Bacilli isolated after 42 days AFB STAIN: No acid fast bacilli seen by flurochrome stain [facility] Comment on above: Performed By: #### 1 1475-1, 6462-6, 635-3 ####[facility]ORATORYCLIA [id number] [place], [place] [address] [place] [address] Microorganism identified Cx Nom (Unsp spec) CULTURE, FUNGAL: No Fungus isolated after 28 days FUNGAL SMEAR: No fungus seen [facility] Comment on above: Performed By: #### 6 462-6, 46362-7, 635-3 ####[facility]ATORYCLIA [id number] [address] Microorganism identified Cx Nom (Unsp spec) CULTURE, AFB: No Acid Fast Bacilli isolated after 42 days AFB STAIN: No acid fast bacilli seen by flurochrome stain [facility] Comment on above: Performed By: #### 6 462-6, 52410-1, 635-3 ####[facility]ORATORYCLIA [id number] [place], [place] [id number] [place] [address] OF [place] OPERATIVE NOon 07-26-2022 OPERATIVE NO Normal [facility] Vancomycin random [Mass/Vol] on 07-26-2022 Vancomycin [Mass/Vol] 13.0 ug/mL Normal 10.0-20.0 [facility] Comment on above: Order Comment: Speci men Type: BLOOD SPECIMENOrdering Facility: [facility] Address: [facility] [address], [place] [address] Result Comment: Refe rence ranges and high/low indicator flags are provided as general guidelines only. The treating physician must determine appropriate target levels/dosing based on the specific clinical situation. Performed By: #### 4 091-5 ####[facility] LABORATORYCLIA [id number] [address] [place] Bacteria Wnd Culton 07-25-19 23 Bacteria identified Cx Nom (Wound) Abnormal [facility] Comment on above: Performed By: #### 6 462-6 ####[facility]ORATORYCLIA [id number] [address] [place] Basic metabolic 2000 panelon 07-25-2022 Anion gap [Moles/Vol] 8 mmol/L Low 9-18 [facility] Comment on above: Order Comment: Speci men Type: BLOOD SPECIMENOrdering Facility: [facility] Address: [address] [place] [address] Performed By: #### 2 4321-2 ####[facility] SERVICESCLIA [id number] [place] [address] [place] Calcium [Mass/Vol] 8.4 mg/dL Low 8.5-10.2 [facility] Comment on above: Order Comment: Speci men Type: BLOOD SPECIMENOrdering Facility: [facility] Address: [address] [place] [address] Performed By: #### 2 4321-2 ####[facility] LABORATORYCLIA [id number] [place] [address] [place] Chloride [Moles/Vol] 107 mmol/L High 97-105 [facility] Comment on above: Order Comment: Speci men Type: BLOOD SPECIMENOrdering Facility: [facility] Address: [address] [place] [address] Performed By: #### 2 4321-2 ####[facility] LABORATORYCLIA [id number] [place] [address] [place] CO2 [Moles/Vol] 27 mmol/L Normal 22-30 [facility] Comment on above: Order Comment: Specfredy mosley Type: BLOOD SPECIMENOrdering Facility: [facility] Address: [address] [address] Performed By: #### 2 4321-2 ####[facility] HOSPITALIA [id number] [address] OF [facility] Creatinine [Mass/Vol] 0.59 mg/dL Normal 0.58-0.96 [facility] Comment on above: Order Comment: Speci men Type: BLOOD SPECIMENOrdering Facility: [facility] Address: [address] [address] Performed By: #### 2 4321-2 ####[facility] HOSPITALIA [id number] [address] ESTIMATED GLOMERULAR FILTRATION RATE 105 mL/min/1.73m??? Normal >=60 [facility] Comment on above: Order Comment: Tawanda mosley Type: BLOOD SPECIMENOrdering Facility: [facility] Address: [address] [place] [address] Result Comment: Manasa mated Glomerular Filtration Rate (eGFR) is calculated using the 2020 CKD-EPI creatinine equation. This equation utilizes serum creatinine, sex, and age as parameters. The creatinine assay has traceable calibration to isotope dilution-mass spectrometry. Refer to KDIGO guidelines for clinical interpretation. In patients with unstable renal function, e.g. those with acute kidney injury, the eGFR may not accurately reflect actual GFR. Performed By: #### 2 4321-2 ####[facility] LABORATORYIA [id number] [address] OF [facility] Glucose [Mass/Vol] 112 mg/dL High 74-99 [facility] Comment on above: Order Comment: Tawanda mosley Type: BLOOD SPECIMENOrdering Facility: [facility] Address: [address] [place] [address] Result Comment: The [place] Diabetes Association (ADA) provides guidance for cutoff values for fasting glucose and random glucose. The ADA defines fasting as no caloric intake for at least 8 hours. Fasting plasma glucose results between 100 to 125 mg/dL indicate increased risk for diabetes (prediabetes).Fasting plasma glucose results greater than or equal to 126 mg/dL meet the criteria for diagnosis of diabetes. In the absence of unequivocal hyperglycemia, results should be confirmed by repeat testing. In a patient with classic symptoms of hyperglycemia or hyperglycemic crisis, random plasma glucose results greater than or equal to 200 mg/dL meet the criteria for diagnosis of diabetes.Reference: Standards of Medical Care in Diabetes 2016, [place] [employer] Association. Diabetes Care. 2016.39(Suppl 1). Performed By: #### 2 4321-2 ####[facility] LABORATORYCLIA [id number] [address] OF [facility] Potassium [Moles/Vol] 3.8 mmol/L Normal 3.7-5.1 [facility] Comment on above: Order Comment: Speci men Type: BLOOD SPECIMENOrdering Facility: [facility] Address: [address] [place] [address] Performed By: #### 2 4321-2 ####[facility] LABORATORYCLIA [id number] [address] STATES [facility] Sodium [Moles/Vol] 142 mmol/L Normal 136-144 [facility] Comment on above: Order Comment: Speci melany Type: BLOOD SPECIMENOrdering Facility: [facility] Address: [address] [place] [address] Performed By: #### 2 4321-2 ####[facility] LABORATORYCLIA [id number] [address] STATES OF [facility] Urea nitrogen [Mass/Vol] 8 mg/dL Normal 7-21 [facility] Comment on above: Order Comment: Speci men Type: BLOOD SPECIMENOrdering Facility: [facility] Address: [address] [place] [address] Performed By: #### 2 4321-2 ####[facility] LABORATORYCLIA [id number] [address] [place] CASE MGT INIT ASSESon 2022 CASE MGT INIT ASSES Normal [facility] CBC panel Auto (Bld)on 07-25 Erythrocyte distribution width (RBC) [Ratio] 13.5 % Normal 11.5-15.0 [facility] Comment on above: Order Comment: Speci men Type: BLOOD SPECIMENOrdering Facility: [facility] Address: [address] [place] [address] Performed By: #### 5 8410-2 ####[facility] LABORATORYCLIA [id number] [address] OF [facility] Hematocrit (Bld) [Volume fraction] 30.0 % Low 36.0-46.0 [facility] Comment on above: Order Comment: Speci men Type: BLOOD SPECIMENOrdering Facility: [facility] Address: [address] [place] [address] Performed By: #### 5 8410-2 ####[facility] LABORATORYCLIA [id number] [address] [place] Hemoglobin (Bld) [Mass/Vol] 9.5 g/dL Low 11.5-15.5 [facility] Comment on above: Order Comment: Speci men Type: BLOOD SPECIMENOrdering Facility: [facility] Address: [address] [place] [address] Performed By: #### 5 8410-2 ####[facility] LABORATORYCLIA [id number] [address] [place] MCH (RBC) [Entitic mass] 29.7 pg Normal 26.0-34.0 [facility] Comment on above: Order Comment: Speci men Type: BLOOD SPECIMENOrdering Facility: [facility] Address: [address] [place] [address] Performed By: #### 5 8410-2 ####[facility] LABORATORYCLIA [id number] [address] [place] MCHC (RBC) [Mass/Vol] 31.7 g/dL Normal 30.5-36.0 [facility] Comment on above: Order Comment: Speci men Type: BLOOD SPECIMENOrdering Facility: [facility] Address: [address] [place] [address] Performed By: #### 5 8410-2 ####[facility] LABORATORYCLIA [id number] [address] OF [facility] MCV (RBC) [Entitic vol] 93.8 fL Normal 80.0-100.0 [facility] Comment on above: Order Comment: Speci men Type: BLOOD SPECIMENOrdering Facility: [facility] Address: [address] [place] [address] Performed By: #### 5 8410-2 ####[facility] LABORATORYCLIA [id number] [address] Nucleated RBC (Bld) [#/Vol] 10*3/uL Normal <0.01 [facility] Comment on above: Order Comment: Speci men Type: BLOOD SPECIMENOrdering Facility: [facility] Address: [address] [place] [address] Performed By: #### 5 8410-2 ####[facility] LABORATORYCLIA [id number] [address] Platelet mean volume (Bld) [Entitic vol] 10.7 fL Normal 9.0-12.7 [facility] Comment on above: Order Comment: Speci men Type: BLOOD SPECIMENOrdering Facility: [facility] Address: [address] [place] [address] Performed By: #### 5 8410-2 ####[facility] LABORATORYCLIA [id number] [address] Platelets (Bld) [#/Vol] 265 10*3/uL Normal 150-400 [facility] Comment on above: Order Comment: Speci men Type: BLOOD SPECIMENOrdering Facility: [facility] Address: [address] [place] [address] Performed By: #### 5 8410-2 ####[facility] LABORATORYCLIA [id number] [address] RBC (Bld) [#/Vol] 3.20 10*6/uL Low 3.90-5.20 [facility] Comment on above: Order Comment: Speci men Type: BLOOD SPECIMENOrdering Facility: [facility] Address: [address] [place] [address] Performed By: #### 5 8410-2 ####[facility] LABORATORYCLIA [id number] [address] STATES [facility] WBC (Bld) [#/Vol] 9.31 10*3/uL Normal 3.70-11.00 [facility] Comment on above: Order Comment: Speci men Type: BLOOD SPECIMENOrdering Facility: [facility] Address: [address] [address] Performed By: #### 5 8410-2 ####[facility] LABORATORYCLIA [id number] [address] [place] CONSULT PROGon 07-25-2022 CONSULT PROG Normal [facility] CONSULT PROG Normal [facility] ECG COMPLETEon 07-25-2022 ECG COMPLETE Normal [facility] ALLIED HEALTHon 07-24-2022 ALLIED HEALTH Normal [facility] Bacteria Bld Culton 07-24-19 23 Bacteria identified Cx Nom (Bld) CULTURE, BLOOD: No growth 5 days Normal [facility] Comment on above: Performed By: #### 6 00-7 ####[facility]ORATORYCLIA [id number] [address] [place] CBC W Auto Differential pane l (Bld)on 07-24-2022 Basophils (Bld) [#/Vol] 0.08 10*3/uL Normal <0.11 [facility] Comment on above: Order Comment: Speci men Type: BLOOD SPECIMENOrdering Facility: [facility] Address: [address] [place] [address] Performed By: #### 5 7021-8 ####[facility]ORATORYCLIA [id number] [address] [place] Basophils/100 WBC (Bld) 0.5 % Normal [facility] Comment on above: Order Comment: Speci men Type: BLOOD SPECIMENOrdering Facility: [facility] Address: [address] [place] [address] Performed By: #### 5 7021-8 ####[facility]ORATORYCLIA [id number] [address] Differential cell count method Nom (Bld) Auto Normal [facility] Comment on above: Order Comment: Speci men Type: BLOOD SPECIMENOrdering Facility: [facility] Address: [address] [place] [address] Performed By: #### 5 7021-8 ####[facility]ORATORYCLIA [id number] [address] Eosinophils (Bld) [#/Vol] 0.35 10*3/uL Normal <0.46 [facility] Comment on above: Order Comment: Speci men Type: BLOOD SPECIMENOrdering Facility: [facility] Address: [address] [place] [address] Performed By: #### 5 7021-8 ####[facility]ORATORYCLIA [id number] [address] Eosinophils/100 WBC (Bld) 2.3 % Normal [facility] Comment on above: Order Comment: Speci men Type: BLOOD SPECIMENOrdering Facility: [facility] Address: [address] [place] [address] Performed By: #### 5 7021-8 ####[facility]ORATORYCLIA [id number] [address] Erythrocyte distribution width (RBC) [Ratio] 13.2 % Normal 11.5-15.0 [facility] Comment on above: Order Comment: Speci men Type: BLOOD SPECIMENOrdering Facility: [facility] Address: [address] [place] [address] Performed By: #### 5 7021-8 ####[facility]ORATORYCLIA [id number] [address] Hematocrit (Bld) [Volume fraction] 30.0 % Low 36.0-46.0 [facility] Comment on above: Order Comment: Speci men Type: BLOOD SPECIMENOrdering Facility: [facility] Address: [address] [place] [address] Performed By: #### 5 7021-8 ####[facility]ORATORYCLIA [id number] [address] [place] Hemoglobin (Bld) [Mass/Vol] 9.6 g/dL Low 11.5-15.5 [facility] Comment on above: Order Comment: Speci men Type: BLOOD SPECIMENOrdering Facility: [facility] Address: [address] [place] [address] Performed By: #### 5 7021-8 ####[facility]ORATORYCLIA [id number] [address] [place] Immature granulocytes (Bld) [#/Vol] 0.12 10*3/uL High <0.10 [facility] Comment on above: Order Comment: Speci men Type: BLOOD SPECIMENOrdering Facility: [facility] Address: [address] [place] [address] Performed By: #### 5 7021-8 ####[facility]ORATORYCLIA [id number] [address] [place] Immature granulocytes/100 WBC (Bld) 0.8 % Normal [facility] Comment on above: Order Comment: Speci men Type: BLOOD SPECIMENOrdering Facility: [facility] Address: [address] [place] [address] Performed By: #### 5 7021-8 ####[facility] LABORATORYCLIA [id number] [place] [address] [place] Lymphocytes (Bld) [#/Vol] 3.34 10*3/uL Normal 1.00-4.00 [facility] Comment on above: Order Comment: Speci men Type: BLOOD SPECIMENOrdering Facility: [facility] Address: [address] [place] [address] Performed By: #### 5 7021-8 ####[facility] LABORATORYCLIA [id number] [place] [address] [place] Lymphocytes/100 WBC (Bld) 22.4 % Normal [facility] Comment on above: Order Comment: Speci men Type: BLOOD SPECIMENOrdering Facility: [facility] Address: [address] [place] [address] Performed By: #### 5 7021-8 ####[facility]ORATORYCLIA [id number] [address] STATES OF [facility] MCH (RBC) [Entitic mass] 29.3 pg Normal 26.0-34.0 [facility] Comment on above: Order Comment: Speci men Type: BLOOD SPECIMENOrdering Facility: [facility] Address: [address] [place] [address] Performed By: #### 5 7021-8 ####[facility]ORATORYCLIA [id number] [address] MCHC (RBC) [Mass/Vol] 32.0 g/dL Normal 30.5-36.0 [facility] Comment on above: Order Comment: Speci men Type: BLOOD SPECIMENOrdering Facility: [facility] Address: [address] [place] [address] Performed By: #### 5 7021-8 ####[facility]ORATORYCLIA [id number] [address] MCV (RBC) [Entitic vol] 91.5 fL Normal 80.0-100.0 [facility] Comment on above: Order Comment: Speci men Type: BLOOD SPECIMENOrdering Facility: [facility] Address: [address] [place] [address] Performed By: #### 5 7021-8 ####[facility]ORATORYCLIA [id number] [address] Monocytes (Bld) [#/Vol] 1.52 10*3/uL High <0.87 [facility] Comment on above: Order Comment: Speci men Type: BLOOD SPECIMENOrdering Facility: [facility] Address: [address] [place] [address] Performed By: #### 5 7021-8 ####[facility]ORATORYCLIA [id number] [address] [place] Monocytes/100 WBC (Bld) 10.2 % Normal [facility] Comment on above: Order Comment: Speci men Type: BLOOD SPECIMENOrdering Facility: [facility] Address: [address] [place] [address] Performed By: #### 5 7021-8 ####[facility]ORATORYCLIA [id number] [address] [place] Neutrophils (Bld) [#/Vol] 9.53 10*3/uL High 1.45-7.50 [facility] Comment on above: Order Comment: Speci men Type: BLOOD SPECIMENOrdering Facility: [facility] Address: [address] [place] [address] Performed By: #### 5 7021-8 ####[facility]ATORYCLIA [id number] [address] Neutrophils/100 WBC (Bld) 63.8 % Normal [facility] Comment on above: Order Comment: Speci men Type: BLOOD SPECIMENOrdering Facility: [facility] Address: [address] [place] [address] Performed By: #### 5 7021-8 ####[facility]ATORYCLIA [id number] [address] [place] Nucleated RBC (Bld) [#/Vol] 10*3/uL Normal <0.01 [facility] Comment on above: Order Comment: Speci men Type: BLOOD SPECIMENOrdering Facility: [facility] Address: [address] [place] [address] Performed By: #### 5 7021-8 ####[facility]ORYCLIA [id number] [address] Nucleated RBC/100 WBC (Bld) [Ratio] 0.0 /100 WBC Normal [facility] Comment on above: Order Comment: Speci men Type: BLOOD SPECIMENOrdering Facility: [facility] Address: [address] [address] Performed By: #### 5 7021-8 ####[facility]ORATORYCLIA [id number] [address] [place] Platelet mean volume (Bld) [Entitic vol] 10.8 fL Normal 9.0-12.7 [facility] Comment on above: Order Comment: Speci men Type: BLOOD SPECIMENOrdering Facility: [facility] Address: [address] [address] Performed By: #### 5 7021-8 ####[facility]ORATORYCLIA [id number] [address] [place] Platelets (Bld) [#/Vol] 261 10*3/uL Normal 150-400 [facility] Comment on above: Order Comment: Speci men Type: BLOOD SPECIMENOrdering Facility: [facility] Address: [address] [place] [address] Performed By: #### 5 7021-8 ####[facility]ORATORYCLIA [id number] [address] [place] RBC (Bld) [#/Vol] 3.28 10*6/uL Low 3.90-5.20 [facility] Comment on above: Order Comment: Speci men Type: BLOOD SPECIMENOrdering Facility: [facility] Address: [address] [address] Performed By: #### 5 7021-8 ####[facility]ORATORYCLIA [id number] [address] [place] WBC (Bld) [#/Vol] 14.94 10*3/uL High 3.70-11.00 [facility] Comment on above: Order Comment: Speci men Type: BLOOD SPECIMENOrdering Facility: [facility] Address: [address] [place] [address] Performed By: #### 5 7021-8 ####[facility]ATORYCLIA [id number] [address] CONSULTon 07-24-2022 CONSULT Normal [facility] CONSULT Normal [facility] CONSULT Normal [facility] CONSULT Normal [facility] CONSULT PROGon 07-24-2022 CONSULT PROG Normal [facility] Comprehensive metabolic 2000 panelon 07-24-2022 Albumin [Mass/Vol] 3.8 g/dL Low 3.9-4.9 [facility] Comment on above: Order Comment: Speci men Type: BLOOD SPECIMENOrdering Facility: [facility] Address: [address] [place] [address] Performed By: #### 2 4323-8 ####[facility]ORATORYCLIA [id number] [address] [place] ALP [Catalytic activity/Vol] 179 U/L High 34-123 [facility] Comment on above: Order Comment: Speci men Type: BLOOD SPECIMENOrdering Facility: [facility] Address: [address] [place] [address] Performed By: #### 2 4323-8 ####[facility]ORATORYCLIA [id number] [address] [place] ALT With P-5'-P [Catalytic activity/Vol] Normal [facility] Comment on above: Order Comment: Speci men Type: BLOOD SPECIMENOrdering Facility: [facility] Address: [address] [place] [address] Result Comment: Unab le to assay due to interference from hemolysis. Suggest reorder as clinically indicated. Performed By: #### 2 4323-8 ####[facility]ATORYCLIA [id number] [address] [place] Anion gap [Moles/Vol] 9 mmol/L Normal 9-18 [facility] Comment on above: Order Comment: Speci men Type: BLOOD SPECIMENOrdering Facility: [facility] Address: [address] [place] [address] Performed By: #### 2 4323-8 ####[facility]ORATORYCLIA [id number] [address] [place] AST With P-5'-P [Catalytic activity/Vol] Normal [facility] Comment on above: Order Comment: Speci men Type: BLOOD SPECIMENOrdering Facility: [facility] Address: [address] [place] [address] Result Comment: Unab le to assay due to interference from hemolysis. Suggest reorder as clinically indicated. Performed By: #### 2 4323-8 ####[facility]ORATORYCLIA [id number] [place] [address] [place] Bilirubin [Mass/Vol] 0.6 mg/dL Normal 0.2-1.3 [facility] Comment on above: Order Comment: Speci men Type: BLOOD SPECIMENOrdering Facility: [facility] Address: [address] [place] [address] Performed By: #### 2 4323-8 ####[facility]ORATORYCLIA [id number] [place] [address] [place] Calcium [Mass/Vol] 8.7 mg/dL Normal 8.5-10.2 [facility] Comment on above: Order Comment: Speci men Type: BLOOD SPECIMENOrdering Facility: [facility] Address: [address] [place] [address] Performed By: #### 2 4323-8 ####[facility]ORATORYCLIA [id number] [place] [address] [place] Chloride [Moles/Vol] 100 mmol/L Normal 97-105 [facility] Comment on above: Order Comment: Speci men Type: BLOOD SPECIMENOrdering Facility: [facility] Address: [address] [place] [address] Performed By: #### 2 4323-8 ####[facility] LABORATORYCLIA [id number] [place] [address] [place] CO2 [Moles/Vol] 26 mmol/L Normal 22-30 [facility] Comment on above: Order Comment: Speci men Type: BLOOD SPECIMENOrdering Facility: [facility] Address: [address] [place] [address] Performed By: #### 2 4323-8 ####[facility] SERVICESCLIA [id number] [address] STATES OF [facility] Creatinine [Mass/Vol] 0.49 mg/dL Low 0.58-0.96 [facility] Comment on above: Order Comment: Tawanda melany Type: BLOOD SPECIMENOrdering Facility: [facility] Address: [address] [place] [address] Performed By: #### 2 4323-8 ####[facility] SERVICESCLIA [id number] [address] ESTIMATED GLOMERULAR FILTRATION RATE 109 mL/min/1.73m??? Normal >=60 [facility] Comment on above: Order Comment: Tawanda mosley Type: BLOOD SPECIMENOrdering Facility: [facility] Address: [address] [place] [address] Result Comment: Manasa mated Glomerular Filtration Rate (eGFR) is calculated using the 2020 CKD-EPI creatinine equation. This equation utilizes serum creatinine, sex, and age as parameters. The creatinine assay has traceable calibration to isotope dilution-mass spectrometry. Refer to KDIGO guidelines for clinical interpretation. In patients with unstable renal function, e.g. those with acute kidney injury, the eGFR may not accurately reflect actual GFR. Performed By: #### 2 4323-8 ####[facility] HOSPITALIA [id number] [address] OF [facility] Glucose [Mass/Vol] 102 mg/dL High 74-99 [facility] Comment on above: Order Comment: Tawanda melany Type: BLOOD SPECIMENOrdering Facility: [facility] Address: [address] [place] [address] Result Comment: The [place] [employer] (ADA) provides guidance for cutoff values for fasting glucose and random glucose. The ADA defines fasting as no caloric intake for at least 8 hours. Fasting plasma glucose results between 100 to 125 mg/dL indicate increased risk for diabetes (prediabetes).Fasting plasma glucose results greater than or equal to 126 mg/dL meet the criteria for diagnosis of diabetes. In the absence of unequivocal hyperglycemia, results should be confirmed by repeat testing. In a patient with classic symptoms of hyperglycemia or hyperglycemic crisis, random plasma glucose results greater than or equal to 200 mg/dL meet the criteria for diagnosis of diabetes.Reference: Standards of Medical Care in Diabetes 2016, [place] [employer]. Diabetes Care. 2016.39(Suppl 1). Performed By: #### 2 4323-8 ####[facility] LABORATORYCLIA [id number] [address] STATES OF [facility] Potassium [Moles/Vol] 4.3 mmol/L Normal 3.7-5.1 [facility] Comment on above: Order Comment: Speci men Type: BLOOD SPECIMENOrdering Facility: [facility] Address: [address] [place] [address] Performed By: #### 2 432-8 ####[facility] LABORATORYCLIA [id number] [address] STATES OF [facility] Protein [Mass/Vol] 6.9 g/dL Normal 6.3-8.0 [facility] Comment on above: Order Comment: Speci men Type: BLOOD SPECIMENOrdering Facility: [facility] Address: [address] [address] Performed By: #### 2 4323-8 ####[facility]ORATORYCLIA [id number] [address] Sodium [Moles/Vol] 135 mmol/L Low 136-144 [facility] Comment on above: Order Comment: Speci men Type: BLOOD SPECIMENOrdering Facility: [facility] Address: [address] [address] Performed By: #### 2 4323-8 ####[facility]ORATORYCLIA [id number] [address] [place] Urea nitrogen [Mass/Vol] 9 mg/dL Normal 7-21 [facility] Comment on above: Order Comment: Speci men Type: BLOOD SPECIMENOrdering Facility: [facility] Address: [address] [address] Performed By: #### 2 4323-8 ####[facility]ORATORYCLIA [id number] [address] [place] ED NOTEon 07-24-2022 ED NOTE HNO ID: [id number] Author: Zaida Melendez RN Service: Emergency Medicine Author Type: Registered Nurse Type: ED Notes Filed: 07/24/2022 3:42 PM Note Text: Report called to RICHARD Angulo [facility] ED NOTE HNO ID: [id number] Author: Zaida Melendez RN Service: Emergency Medicine Author Type: Registered Nurse Type: ED Notes Filed: 07/24/2022 2:58 PM Note Text: Per surgery, this RN given a verbal order that pt is cleared to eat/drink. [facility] ED NOTE HNO ID: [id number] Author: Zaida Melendez RN Service: Emergency Medicine Author Type: Registered Nurse Type: ED Notes Filed: 07/24/2022 7:27 AM Note Text: Pt resting comfortably. [facility] ED NOTE HNO ID: [id number] Author: Kilo Meraz RN Service: Emergency Medicine Author Type: Registered Nurse Type: ED Notes Filed: 07/24/2022 4:51 AM Note Text: Ortho at bedside applying wet to dry dressing to right lower arm wounds [facility] ED NOTE HNO ID: [id number] Author: Florence León RN Service: ? Author Type: Registered Nurse Type: ED Notes Filed: 07/24/2022 4:15 AM Note Text: Bed: 16-ED Expected date: Expected time: Means of arrival: Comments: Squad Normal [facility] ED PROV NOTEon 07-24-2022 ED PROV NOTE Normal [facility] ED PROV NOTE Normal [facility] HISTORY PHYSICALon 3 HISTORY PHYSICAL Normal [facility] SARS-CoV-2 RNA Resp Ql RODERICK+p robeon 07-24-2022 SARS-CoV-2 (COVID-19) RNA RODERICK+probe Ql (Resp) COVID 19 RESULT: SARS-CoV-2 (Agent of COVID-19) Not Detected by RT-PCR or equivalent method. This test has been authorized by FDA under an Emergency Use Authorization (EUA). [facility] Comment on above: Performed By: #### 9 4500-6 ####[facility]ATORYCLIA [id number] [place] [address] [place] XR HAND 3V PA/LAT/OBL RTon 0 07-24-2022 XR HAND 3V PA/LAT/OBL RT Normal [facility] Basic metabolic 2000 panelon 07-23-2022 Anion gap [Moles/Vol] 11 mmol/L Normal 9-18 [facility] Comment on above: Order Comment: Speci men Type: BLOOD SPECIMENOrdering Facility: [facility] Address: [address] [place] [address] Performed By: #### 2 4321-2 ####[facility]ORATORYCLIA [id number] [place] [address] [place] Calcium [Mass/Vol] 8.6 mg/dL Normal 8.5-10.2 [facility] Comment on above: Order Comment: Speci men Type: BLOOD SPECIMENOrdering Facility: [facility] Address: [address] [place] [address] Performed By: #### 2 4321-2 ####[facility]ORATORYCLIA [id number] [place] [address] [place] Chloride [Moles/Vol] 98 mmol/L Normal 97-105 [facility] Comment on above: Order Comment: Speci men Type: BLOOD SPECIMENOrdering Facility: [facility] Address: [address] [place] [address] Performed By: #### 2 4321-2 ####[facility]ATORYCLIA [id number] [place] [address] [place] CO2 [Moles/Vol] 27 mmol/L Normal 22-30 [facility] Comment on above: Order Comment: Speci men Type: BLOOD SPECIMENOrdering Facility: [facility] Address: [address] [place] [address] Performed By: #### 2 4321-2 ####[facility]ORATORYCLIA [id number] [place] [address] [place] Creatinine [Mass/Vol] 0.73 mg/dL Normal 0.58-0.96 [facility] Comment on above: Order Comment: Tawanda mosley Type: BLOOD SPECIMENOrdering Facility: [facility] Address: [address] [address] Performed By: #### 2 4321-2 ####[facility]ORATORYCLIA [id number] [address] [place] ESTIMATED GLOMERULAR FILTRATION RATE 95 mL/min/1.73m??? Normal >=60 [facility] Comment on above: Order Comment: Tawanda melany Type: BLOOD SPECIMENOrdering Facility: [facility] Address: [address] [address] Result Comment: Manasa mated Glomerular Filtration Rate (eGFR) is calculated using the 2020 CKD-EPI creatinine equation. This equation utilizes serum creatinine, sex, and age as parameters. The creatinine assay has traceable calibration to isotope dilution-mass spectrometry. Refer to KDIGO guidelines for clinical interpretation. In patients with unstable renal function, e.g. those with acute kidney injury, the eGFR may not accurately reflect actual GFR. Performed By: #### 2 4321-2 ####[facility] LABORATORYIA [id number] [place] [address] [place] Glucose [Mass/Vol] 116 mg/dL High 74-99 [facility] Comment on above: Order Comment: Leobardofredy mosley Type: BLOOD SPECIMENOrdering Facility: [facility] Address: [address] [address] Result Comment: The [place] Diabetes Association (ADA) provides guidance for cutoff values for fasting glucose and random glucose. The ADA defines fasting as no caloric intake for at least 8 hours. Fasting plasma glucose results between 100 to 125 mg/dL indicate increased risk for diabetes (prediabetes).Fasting plasma glucose results greater than or equal to 126 mg/dL meet the criteria for diagnosis of diabetes. In the absence of unequivocal hyperglycemia, results should be confirmed by repeat testing. In a patient with classic symptoms of hyperglycemia or hyperglycemic crisis, random plasma glucose results greater than or equal to 200 mg/dL meet the criteria for diagnosis of diabetes.Reference: Standards of Medical Care in Diabetes 2016, [place] [employer]. Diabetes Care. 2016.39(Suppl 1). Performed By: #### 2 4321-2 ####[facility]ORATORYCLIA [id number] [address] [place] Potassium [Moles/Vol] 3.9 mmol/L Normal 3.7-5.1 [facility] Comment on above: Order Comment: Speci men Type: BLOOD SPECIMENOrdering Facility: [facility] Address: [address] [place] [address] Performed By: #### 2 4321-2 ####[facility]ORATORYCLIA [id number] [place] [address] [place] Sodium [Moles/Vol] 136 mmol/L Normal 136-144 [facility] Comment on above: Order Comment: Speci men Type: BLOOD SPECIMENOrdering Facility: [facility] Address: [address] [place] [address] Performed By: #### 2 4321-2 ####[facility]ORATORYCLIA [id number] [address] STATES OF [facility] Urea nitrogen [Mass/Vol] 9 mg/dL Normal 7-21 [facility] Comment on above: Order Comment: Speci men Type: BLOOD SPECIMENOrdering Facility: [facility] Address: [address] [place] [address] Performed By: #### 2 4321-2 ####[facility]ATORYCLIA [id number] [address] [place] CBC W Auto Differential pane l (Bld)on 07-23-2022 Basophils (Bld) [#/Vol] 0.09 10*3/uL Normal <0.11 [facility] Comment on above: Order Comment: Speci men Type: BLOOD SPECIMENOrdering Facility: [facility] Address: [address] [place] [address] Performed By: #### 5 7021-8 ####[facility]ORATORYCLIA [id number] [address] [place] Basophils/100 WBC (Bld) 0.7 % Normal [facility] Comment on above: Order Comment: Speci men Type: BLOOD SPECIMENOrdering Facility: [facility] Address: [address] [place] [address] Performed By: #### 5 7021-8 ####[facility]ORATORYCLIA [id number] [address] Differential cell count method Nom (Bld) Auto Normal [facility] Comment on above: Order Comment: Speci men Type: BLOOD SPECIMENOrdering Facility: [facility] Address: [address] [place] [address] Performed By: #### 5 7021-8 ####[facility]ATORYCLIA [id number] [address] Eosinophils (Bld) [#/Vol] 0.25 10*3/uL Normal <0.46 [facility] Comment on above: Order Comment: Speci men Type: BLOOD SPECIMENOrdering Facility: [facility] Address: [address] [place] [address] Performed By: #### 5 7021-8 ####[facility]ATORYCLIA [id number] [address] Eosinophils/100 WBC (Bld) 1.9 % Normal [facility] Comment on above: Order Comment: Speci men Type: BLOOD SPECIMENOrdering Facility: [facility] Address: [address] [place] [address] Performed By: #### 5 7021-8 ####[facility]ATORYCLIA [id number] [address] Erythrocyte distribution width (RBC) [Ratio] 13.3 % Normal 11.5-15.0 [facility] Comment on above: Order Comment: Speci men Type: BLOOD SPECIMENOrdering Facility: [facility] Address: [address] [place] [address] Performed By: #### 5 7021-8 ####[facility]ORATORYCLIA [id number] [address] Hematocrit (Bld) [Volume fraction] 30.8 % Low 36.0-46.0 [facility] Comment on above: Order Comment: Speci men Type: BLOOD SPECIMENOrdering Facility: [facility] Address: [address] [place] [address] Performed By: #### 5 7021-8 ####[facility]ATORYCLIA [id number] [address] [place] Hemoglobin (Bld) [Mass/Vol] 9.9 g/dL Low 11.5-15.5 [facility] Comment on above: Order Comment: Speci men Type: BLOOD SPECIMENOrdering Facility: [facility] Address: [address] [place] [address] Performed By: #### 5 7021-8 ####[facility]ATORYCLIA [id number] [place] [address] [place] Immature granulocytes (Bld) [#/Vol] 0.09 10*3/uL Normal <0.10 [facility] Comment on above: Order Comment: Speci men Type: BLOOD SPECIMENOrdering Facility: [facility] Address: [address] [place] [address] Performed By: #### 5 7021-8 ####[facility]ATORYCLIA [id number] [address] [place] Immature granulocytes/100 WBC (Bld) 0.7 % Normal [facility] Comment on above: Order Comment: Speci men Type: BLOOD SPECIMENOrdering Facility: [facility] Address: [address] [place] [address] Performed By: #### 5 7021-8 ####[facility]ORATORYCLIA [id number] [place] [address] [place] Lymphocytes (Bld) [#/Vol] 2.71 10*3/uL Normal 1.00-4.00 [facility] Comment on above: Order Comment: Speci men Type: BLOOD SPECIMENOrdering Facility: [facility] Address: [address] [place] [address] Performed By: #### 5 7021-8 ####[facility]ATORYCLIA [id number] [address] Lymphocytes/100 WBC (Bld) 21.1 % Normal [facility] Comment on above: Order Comment: Speci men Type: BLOOD SPECIMENOrdering Facility: [facility] Address: [address] [place] [address] Performed By: #### 5 7021-8 ####[facility]ATORYCLIA [id number] [address] MCH (RBC) [Entitic mass] 29.9 pg Normal 26.0-34.0 [facility] Comment on above: Order Comment: Speci men Type: BLOOD SPECIMENOrdering Facility: [facility] Address: [address] [place] [address] Performed By: #### 5 7021-8 ####[facility]ATORYCLIA [id number] [address] MCHC (RBC) [Mass/Vol] 32.1 g/dL Normal 30.5-36.0 [facility] Comment on above: Order Comment: Speci men Type: BLOOD SPECIMENOrdering Facility: [facility] Address: [address] [place] [address] Performed By: #### 5 7021-8 ####[facility]ATORYCLIA [id number] [address] [place] [facility] MCV (RBC) [Entitic vol] 93.1 fL Normal 80.0-100.0 [facility] Comment on above: Order Comment: Speci men Type: BLOOD SPECIMENOrdering Facility: [facility] Address: [address] [place] [address] Performed By: #### 5 7021-8 ####[facility]ATORYCLIA [id number] [address] Monocytes (Bld) [#/Vol] 1.27 10*3/uL High <0.87 [facility] Comment on above: Order Comment: Speci men Type: BLOOD SPECIMENOrdering Facility: [facility] Address: [address] [address] Performed By: #### 5 7021-8 ####[facility]ORATORYCLIA [id number] [address] [place] Monocytes/100 WBC (Bld) 9.9 % Normal [facility] Comment on above: Order Comment: Speci men Type: BLOOD SPECIMENOrdering Facility: [facility] Address: [address] [place] [address] Performed By: #### 5 7021-8 ####[facility]ATORYCLIA [id number] [place] [address] [place] Neutrophils (Bld) [#/Vol] 8.44 10*3/uL High 1.45-7.50 [facility] Comment on above: Order Comment: Speci men Type: BLOOD SPECIMENOrdering Facility: [facility] Address: [address] [place] [address] Performed By: #### 5 7021-8 ####[facility]ORATORYCLIA [id number] [address] [place] Neutrophils/100 WBC (Bld) 65.7 % Normal [facility] Comment on above: Order Comment: Speci men Type: BLOOD SPECIMENOrdering Facility: [facility] Address: [address] [place] [address] Performed By: #### 5 7021-8 ####[facility]ORATORYCLIA [id number] [place] [address] [place] Nucleated RBC (Bld) [#/Vol] 10*3/uL Normal <0.01 [facility] Comment on above: Order Comment: Speci men Type: BLOOD SPECIMENOrdering Facility: [facility] Address: [address] [place] [address] Performed By: #### 5 7021-8 ####[facility]ORATORYCLIA [id number] [address] [place] Nucleated RBC/100 WBC (Bld) [Ratio] 0.0 /100 WBC Normal [facility] Comment on above: Order Comment: Speci men Type: BLOOD SPECIMENOrdering Facility: [facility] Address: [address] [address] Performed By: #### 5 7021-8 ####[facility]ATORYCLIA [id number] [place] [address] [place] Platelet mean volume (Bld) [Entitic vol] 10.8 fL Normal 9.0-12.7 [facility] Comment on above: Order Comment: Speci men Type: BLOOD SPECIMENOrdering Facility: [facility] Address: [address] [address] Performed By: #### 5 7021-8 ####[facility]ATORYCLIA [id number] [address] [place] Platelets (Bld) [#/Vol] 255 10*3/uL Normal 150-400 [facility] Comment on above: Order Comment: Speci men Type: BLOOD SPECIMENOrdering Facility: [facility] Address: [address] [address] Performed By: #### 5 7021-8 ####[facility]ATORYCLIA [id number] [place] [address] [place] RBC (Bld) [#/Vol] 3.31 10*6/uL Low 3.90-5.20 [facility] Comment on above: Order Comment: Speci men Type: BLOOD SPECIMENOrdering Facility: [facility] Address: [address] Performed By: #### 5 7021-8 ####[facility]ATORYCLIA [id number] [place] [address] [place] WBC (Bld) [#/Vol] 12.85 10*3/uL High 3.70-11.00 [facility] Comment on above: Order Comment: Speci men Type: BLOOD SPECIMENOrdering Facility: [facility] Address: [address] [address] Performed By: #### 5 7021-8 ####[facility]ATORYCLIA [id number] [place] [address] [place] CONSULTon 07-23-2022 CONSULT Normal [facility] ECG COMPLETEon 07-23-2022 ECG COMPLETE Normal [facility] ED NOTEon 07-23-2022 ED NOTE Normal [facility] ED NOTE HNO ID: [id number] Author: Ivon Voss RN Service: Emergency Medicine Author Type: Registered Nurse Type: ED Notes Filed: 07/23/2022 2:12 PM Note Text: [facility] called to transport pt home. Eta is 1445 Normal [facility] ED NOTE Normal [facility] ED PROV NOTEon 07-23-2022 ED PROV NOTE Normal [facility] ED PROV NOTE Normal [facility] CASE MANAGEMon 07-20-2022 CASE MANAGEM Normal [facility] Basic metabolic 2000 panelon 07-19-2022 Anion gap [Moles/Vol] 10 mmol/L Normal 9-18 [facility] Comment on above: Order Comment: Speci men Type: BLOOD SPECIMENOrdering Facility: [facility] Address: [address] [address] Performed By: #### 2 4321-2 ####[facility]ATORYCLIA [id number] [place] [address] [place] Calcium [Mass/Vol] 9.3 mg/dL Normal 8.5-10.2 [facility] Comment on above: Order Comment: Speci men Type: BLOOD SPECIMENOrdering Facility: [facility] Address: [address] [address] Performed By: #### 2 4321-2 ####[facility]ATORYCLIA [id number] [place] [address] [place] Chloride [Moles/Vol] 101 mmol/L Normal 97-105 [facility] Comment on above: Order Comment: Speci men Type: BLOOD SPECIMENOrdering Facility: [facility] Address: [address] [address] Performed By: #### 2 4321-2 ####[facility]ATORYCLIA [id number] [address] CO2 [Moles/Vol] 30 mmol/L Normal 22-30 [facility] Comment on above: Order Comment: Speci men Type: BLOOD SPECIMENOrdering Facility: [facility] Address: [address] [address] Performed By: #### 2 4321-2 ####[facility]ATORYCLIA [id number] [address] Creatinine [Mass/Vol] 0.78 mg/dL Normal 0.58-0.96 [facility] Comment on above: Order Comment: Speci men Type: BLOOD SPECIMENOrdering Facility: [facility] Address: [address] [place] [address] Performed By: #### 2 4321-2 ####[facility]ATORYCLIA [id number] [address] ESTIMATED GLOMERULAR FILTRATION RATE 88 mL/min/1.73m??? Normal >=60 [facility] Comment on above: Order Comment: Speci men Type: BLOOD SPECIMENOrdering Facility: [facility] Address: [address] [place] [address] Result Comment: Manasa mated Glomerular Filtration Rate (eGFR) is calculated using the 2020 CKD-EPI creatinine equation. This equation utilizes serum creatinine, sex, and age as parameters. The creatinine assay has traceable calibration to isotope dilution-mass spectrometry. Refer to KDIGO guidelines for clinical interpretation. In patients with unstable renal function, e.g. those with acute kidney injury, the eGFR may not accurately reflect actual GFR. Performed By: #### 2 4321-2 ####[facility]ATORYCLIA [id number] [address] Glucose [Mass/Vol] 148 mg/dL High 74-99 [facility] Comment on above: Order Comment: Speci men Type: BLOOD SPECIMENOrdering Facility: [facility] Address: [address] [place] [address] Result Comment: The [place] Diabetes [employer] (ADA) provides guidance for cutoff values for fasting glucose and random glucose. The ADA defines fasting as no caloric intake for at least 8 hours. Fasting plasma glucose results between 100 to 125 mg/dL indicate increased risk for diabetes (prediabetes).Fasting plasma glucose results greater than or equal to 126 mg/dL meet the criteria for diagnosis of diabetes. In the absence of unequivocal hyperglycemia, results should be confirmed by repeat testing. In a patient with classic symptoms of hyperglycemia or hyperglycemic crisis, random plasma glucose results greater than or equal to 200 mg/dL meet the criteria for diagnosis of diabetes.Reference: Standards of Medical Care in Diabetes 2016, [place] [employer]. Diabetes Care. 2016.39(Suppl 1). Performed By: #### 2 4321-2 ####[facility]ORATORYCLIA [id number] [address] STATES OF [facility] Potassium [Moles/Vol] 4.1 mmol/L Normal 3.7-5.1 [facility] Comment on above: Order Comment: Speci men Type: BLOOD SPECIMENOrdering Facility: [facility] Address: [address] [place] [address] Performed By: #### 2 1-2 ####[facility]ORATORYCLIA [id number] [address] [place] [facility] Sodium [Moles/Vol] 141 mmol/L Normal 136-144 [facility] Comment on above: Order Comment: Tawanda mosley Type: BLOOD SPECIMENOrdering Facility: [facility] Address: [address] [place] [address] Performed By: #### 2 4321-2 ####[facility]ORATORYCLIA [id number] [address] [place] Urea nitrogen [Mass/Vol] 16 mg/dL Normal 7-21 [facility] Comment on above: Order Comment: Tawanda mosley Type: BLOOD SPECIMENOrdering Facility: [facility] Address: [address] [address] Performed By: #### 2 4321-2 ####[facility]ORATORYCLIA [id number] [place] [address] [place] CASE MANAGEMon 07-19-2022 CASE MANAGEM Normal [facility] CBC panel Auto (Bld)on 07-19 Erythrocyte distribution width (RBC) [Ratio] 13.3 % Normal 11.5-15.0 [facility] Comment on above: Order Comment: Speci men Type: BLOOD SPECIMENOrdering Facility: [facility] Address: [address] [place] [address] Performed By: #### 5 8410-2 ####[facility]ORATORYCLIA [id number] [address] OF [facility] Hematocrit (Bld) [Volume fraction] 36.2 % Normal 36.0-46.0 [facility] Comment on above: Order Comment: Speci men Type: BLOOD SPECIMENOrdering Facility: [facility] Address: [address] [place] [address] Performed By: #### 5 8410-2 ####[facility]ATORYCLIA [id number] [address] OF [facility] Hemoglobin (Bld) [Mass/Vol] 11.3 g/dL Low 11.5-15.5 [facility] Comment on above: Order Comment: Speci men Type: BLOOD SPECIMENOrdering Facility: [facility] Address: [address] [place] [address] Performed By: #### 5 8410-2 ####[facility]ATORYCLIA [id number] [address] [place] MCH (RBC) [Entitic mass] 29.4 pg Normal 26.0-34.0 [facility] Comment on above: Order Comment: Speci men Type: BLOOD SPECIMENOrdering Facility: [facility] Address: [address] [place] [address] Performed By: #### 5 8410-2 ####[facility]ORATORYCLIA [id number] [address] STATES [facility] MCHC (RBC) [Mass/Vol] 31.2 g/dL Normal 30.5-36.0 [facility] [facility] Comment on above: Order Comment: Speci men Type: BLOOD SPECIMENOrdering Facility: [facility] Address: [address] [address] Performed By: #### 5 8410-2 ####[facility] LABORATORYCLIA [id number] [address] MCV (RBC) [Entitic vol] 94.3 fL Normal 80.0-100.0 [facility] Comment on above: Order Comment: Speci men Type: BLOOD SPECIMENOrdering Facility: [facility] Address: [address] [address] Performed By: #### 5 8410-2 ####[facility] LABORATORYCLIA [id number] [address] Nucleated RBC (Bld) [#/Vol] 10*3/uL Normal <0.01 [facility] Comment on above: Order Comment: Speci men Type: BLOOD SPECIMENOrdering Facility: [facility] Address: [address] [address] Performed By: #### 5 8410-2 ####[facility] LABORATORYCLIA [id number] [address] OF [facility] Platelet mean volume (Bld) [Entitic vol] 10.9 fL Normal 9.0-12.7 [facility] Comment on above: Order Comment: Speci men Type: BLOOD SPECIMENOrdering Facility: [facility] Address: [address] [address] Performed By: #### 5 8410-2 ####[facility] LABORATORYCLIA [id number] [address] Platelets (Bld) [#/Vol] 261 10*3/uL Normal 150-400 [facility] Comment on above: Order Comment: Speci men Type: BLOOD SPECIMENOrdering Facility: [facility] Address: [address] [address] Performed By: #### 5 8410-2 ####[facility]ORATORYCLIA [id number] [address] [place] RBC (Bld) [#/Vol] 3.84 10*6/uL Low 3.90-5.20 [facility] Comment on above: Order Comment: Speci men Type: BLOOD SPECIMENOrdering Facility: [facility] Address: [address] [place] [address] Performed By: #### 5 8410-2 ####[facility] LABORATORYCLIA [id number] [place] [address] [place] WBC (Bld) [#/Vol] 13.24 10*3/uL High 3.70-11.00 [facility] Comment on above: Order Comment: Speci men Type: BLOOD SPECIMENOrdering Facility: [facility] Address: [address] [place] [address] Performed By: #### 5 8410-2 ####[facility]ORATORYCLIA [id number] [address] [place] CNDSon 07-19-2022 CNDS Normal [facility] CONSULT PROGon 07-19-2022 CONSULT PROG Normal [facility] THERAPY NTon 07-19-2022 THERAPY NT Normal [facility] Basic metabolic 2000 panelon 07-18-2022 Anion gap [Moles/Vol] 7 mmol/L Low 9-18 [facility] Comment on above: Order Comment: Speci men Type: BLOOD SPECIMENOrdering Facility: [facility] Address: [address] [place] [address] Performed By: #### 2 4321-2 ####[facility]ORATORYCLIA [id number] [place] [address] [place] Calcium [Mass/Vol] 9.5 mg/dL Normal 8.5-10.2 [facility] Comment on above: Order Comment: Speci men Type: BLOOD SPECIMENOrdering Facility: [facility] Address: [address] [place] [address] Performed By: #### 2 4321-2 ####[facility]ORATORYCLIA [id number] [place] [address] [place] Chloride [Moles/Vol] 103 mmol/L Normal 97-105 [facility] Comment on above: Order Comment: Speci men Type: BLOOD SPECIMENOrdering Facility: [facility] Address: [address] [place] [address] Performed By: #### 2 4321-2 ####[facility]ORATORYCLIA [id number] [address] [place] CO2 [Moles/Vol] 30 mmol/L Normal 22-30 [facility] Comment on above: Order Comment: Speci men Type: BLOOD SPECIMENOrdering Facility: [facility] Address: [address] [place] [address] Performed By: #### 2 4321-2 ####[facility] SERVICESCLIA [id number] [address] OF [facility] Creatinine [Mass/Vol] 0.69 mg/dL Normal 0.58-0.96 [facility] Comment on above: Order Comment: Speci men Type: BLOOD SPECIMENOrdering Facility: [facility] Address: [address] [place] [address] Performed By: #### 2 4321-2 ####[facility]ORATORYCLIA [id number] [address] ESTIMATED GLOMERULAR FILTRATION RATE 101 mL/min/1.73m??? Normal >=60 [facility] Comment on above: Order Comment: Speci men Type: BLOOD SPECIMENOrdering Facility: [facility] Address: [address] [place] [address] Result Comment: Manasa mated Glomerular Filtration Rate (eGFR) is calculated using the 2020 CKD-EPI creatinine equation. This equation utilizes serum creatinine, sex, and age as parameters. The creatinine assay has traceable calibration to isotope dilution-mass spectrometry. Refer to KDIGO guidelines for clinical interpretation. In patients with unstable renal function, e.g. those with acute kidney injury, the eGFR may not accurately reflect actual GFR. Performed By: #### 2 4321-2 ####[facility]ORATORYCLIA [id number] [address] Glucose [Mass/Vol] 156 mg/dL High 74-99 [facility] Comment on above: Order Comment: Speci men Type: BLOOD SPECIMENOrdering Facility: [facility] Address: [address] [place] [address] Result Comment: The [place] [employer] (ADA) provides guidance for cutoff values for fasting glucose and random glucose. The ADA defines fasting as no caloric intake for at least 8 hours. Fasting plasma glucose results between 100 to 125 mg/dL indicate increased risk for diabetes (prediabetes).Fasting plasma glucose results greater than or equal to 126 mg/dL meet the criteria for diagnosis of diabetes. In the absence of unequivocal hyperglycemia, results should be confirmed by repeat testing. In a patient with classic symptoms of hyperglycemia or hyperglycemic crisis, random plasma glucose results greater than or equal to 200 mg/dL meet the criteria for diagnosis of diabetes.Reference: Standards of Medical Care in Diabetes 2016, [place] [employer]. Diabetes Care. 2016.39(Suppl 1). Performed By: #### 2 4321-2 ####[facility]ORATORYCLIA [id number] [place] [address] [place] Potassium [Moles/Vol] 3.9 mmol/L Normal 3.7-5.1 [facility] Comment on above: Order Comment: Tawanda melany Type: BLOOD SPECIMENOrdering Facility: [facility] Address: [address] [place] [address] Performed By: #### 2 4321-2 ####[facility]ORATORYCLIA [id number] [place] [address] [place] Sodium [Moles/Vol] 140 mmol/L Normal 136-144 [facility] Comment on above: Order Comment: Speci men Type: BLOOD SPECIMENOrdering Facility: [facility] Address: [address] [place] [address] Performed By: #### 2 4321-2 ####[facility]ORATORYCLIA [id number] [place] [address] [place] Urea nitrogen [Mass/Vol] 14 mg/dL Normal 7-21 [facility] Comment on above: Order Comment: Speci men Type: BLOOD SPECIMENOrdering Facility: [facility] Address: [address] [address] Performed By: #### 2 4321-2 ####[facility]ORATORYCLIA [id number] [address] CBC panel Auto (Bld)on 07-18 Erythrocyte distribution width (RBC) [Ratio] 13.1 % Normal 11.5-15.0 [facility] Comment on above: Order Comment: Speci men Type: BLOOD SPECIMENOrdering Facility: [facility] Address: [address] [place] [address] Performed By: #### 5 8410-2 ####[facility]ORATORYCLIA [id number] [address] Hematocrit (Bld) [Volume fraction] 33.7 % Low 36.0-46.0 [facility] Comment on above: Order Comment: Speci men Type: BLOOD SPECIMENOrdering Facility: [facility] Address: [address] [place] [address] Performed By: #### 5 8410-2 ####[facility]ORATORYCLIA [id number] [address] Hemoglobin (Bld) [Mass/Vol] 10.9 g/dL Low 11.5-15.5 [facility] Comment on above: Order Comment: Speci men Type: BLOOD SPECIMENOrdering Facility: [facility] Address: [address] [place] [address] Performed By: #### 5 8410-2 ####[facility]ORATORYCLIA [id number] [address] MCH (RBC) [Entitic mass] 29.8 pg Normal 26.0-34.0 [facility] Comment on above: Order Comment: Speci men Type: BLOOD SPECIMENOrdering Facility: [facility] Address: [address] [place] [address] Performed By: #### 5 8410-2 ####[facility]ORATORYCLIA [id number] [address] [place] MCHC (RBC) [Mass/Vol] 32.3 g/dL Normal 30.5-36.0 [facility] Comment on above: Order Comment: Speci men Type: BLOOD SPECIMENOrdering Facility: [facility] Address: [address] [place] [address] Performed By: #### 5 8410-2 ####[facility]ORATORYCLIA [id number] [address] [place] MCV (RBC) [Entitic vol] 92.1 fL Normal 80.0-100.0 [facility] Comment on above: Order Comment: Speci men Type: BLOOD SPECIMENOrdering Facility: [facility] Address: [address] [place] [address] Performed By: #### 5 8410-2 ####[facility]ORATORYCLIA [id number] [address] Nucleated RBC (Bld) [#/Vol] 10*3/uL Normal <0.01 [facility] Comment on above: Order Comment: Speci men Type: BLOOD SPECIMENOrdering Facility: [facility] Address: [address] [place] [address] Performed By: #### 5 8410-2 ####[facility]ORATORYCLIA [id number] [address] [place] Platelet mean volume (Bld) [Entitic vol] 11.0 fL Normal 9.0-12.7 [facility] Comment on above: Order Comment: Speci men Type: BLOOD SPECIMENOrdering Facility: [facility] Address: [address] [place] [address] Performed By: #### 5 8410-2 ####[facility]ORATORYCLIA [id number] [address] [place] Platelets (Bld) [#/Vol] 246 10*3/uL Normal 150-400 [facility] Comment on above: Order Comment: Speci men Type: BLOOD SPECIMENOrdering Facility: [facility] Address: [address] [place] [address] Performed By: #### 5 8410-2 ####[facility]ORATORYCLIA [id number] [address] OF [facility] RBC (Bld) [#/Vol] 3.66 10*6/uL Low 3.90-5.20 [facility] Comment on above: Order Comment: Speci men Type: BLOOD SPECIMENOrdering Facility: [facility] Address: [address] [place] [address] Performed By: #### 5 8410-2 ####[facility]ORATORYCLIA [id number] [address] OF [facility] WBC (Bld) [#/Vol] 12.88 10*3/uL High 3.70-11.00 [facility] Comment on above: Order Comment: Speci men Type: BLOOD SPECIMENOrdering Facility: [facility] Address: [address] [place] [address] Performed By: #### 5 8410-2 ####[facility]ORATORYCLIA [id number] [address] [place] Basic metabolic 2000 panelon 07-17-2022 Anion gap [Moles/Vol] 9 mmol/L Normal 9-18 [facility] Comment on above: Order Comment: Speci men Type: BLOOD SPECIMENOrdering Facility: [facility] Address: [address] [place] [address] Performed By: #### 2 4321-2 ####[facility]ORATORYCLIA [id number] [address] Calcium [Mass/Vol] 9.4 mg/dL Normal 8.5-10.2 [facility] Comment on above: Order Comment: Speci men Type: BLOOD SPECIMENOrdering Facility: [facility] Address: [address] [place] [address] Performed By: #### 2 4321-2 ####[facility]ORATORYCLIA [id number] [address] Chloride [Moles/Vol] 99 mmol/L Normal 97-105 [facility] Comment on above: Order Comment: Speci men Type: BLOOD SPECIMENOrdering Facility: [facility] Address: [address] [place] [address] Performed By: #### 2 4321-2 ####[facility]ORATORYCLIA [id number] [address] [place] CO2 [Moles/Vol] 30 mmol/L Normal 22-30 [facility] Comment on above: Order Comment: Speci men Type: BLOOD SPECIMENOrdering Facility: [facility] Address: [address] [place] [address] Performed By: #### 2 4321-2 ####[facility] SERVICESCLIA [id number] [address] OF [facility] Creatinine [Mass/Vol] 0.66 mg/dL Normal 0.58-0.96 [facility] Comment on above: Order Comment: Speci men Type: BLOOD SPECIMENOrdering Facility: [facility] Address: [address] [place] [address] Performed By: #### 2 4321-2 ####[facility]ORATORYCLIA [id number] [address] ESTIMATED GLOMERULAR FILTRATION RATE 102 mL/min/1.73m??? Normal >=60 [facility] Comment on above: Order Comment: Speci men Type: BLOOD SPECIMENOrdering Facility: [facility] Address: [address] [place] [address] Result Comment: Manasa mated Glomerular Filtration Rate (eGFR) is calculated using the 2020 CKD-EPI creatinine equation. This equation utilizes serum creatinine, sex, and age as parameters. The creatinine assay has traceable calibration to isotope dilution-mass spectrometry. Refer to KDIGO guidelines for clinical interpretation. In patients with unstable renal function, e.g. those with acute kidney injury, the eGFR may not accurately reflect actual GFR. Performed By: #### 2 4321-2 ####[facility]ATORYCLIA [id number] [address] Glucose [Mass/Vol] 202 mg/dL High 74-99 [facility] Comment on above: Order Comment: Speci men Type: BLOOD SPECIMENOrdering Facility: [facility] Address: [address] [place] [address] Result Comment: The [place] Diabetes Association (ADA) provides guidance for cutoff values for fasting glucose and random glucose. The ADA defines fasting as no caloric intake for at least 8 hours. Fasting plasma glucose results between 100 to 125 mg/dL indicate increased risk for diabetes (prediabetes).Fasting plasma glucose results greater than or equal to 126 mg/dL meet the criteria for diagnosis of diabetes. In the absence of unequivocal hyperglycemia, results should be confirmed by repeat testing. In a patient with classic symptoms of hyperglycemia or hyperglycemic crisis, random plasma glucose results greater than or equal to 200 mg/dL meet the criteria for diagnosis of diabetes.Reference: Standards of Medical Care in Diabetes 2016, [place] [employer]. Diabetes Care. 2016.39(Suppl 1). Performed By: #### 2 4321-2 ####[facility] LABORATORYCLIA [id number] [place] [address] [place] Potassium [Moles/Vol] 4.2 mmol/L Normal 3.7-5.1 [facility] Comment on above: Order Comment: Tawanda melany Type: BLOOD SPECIMENOrdering Facility: [facility] Address: [address] [place] [address] Performed By: #### 2 4321-2 ####[facility] LABORATORYCLIA [id number] [place] [address] [place] Sodium [Moles/Vol] 138 mmol/L Normal 136-144 [facility] Comment on above: Order Comment: Speci men Type: BLOOD SPECIMENOrdering Facility: [facility] Address: [address] [place] [address] Performed By: #### 2 4321-2 ####[facility] LABORATORYCLIA [id number] [place] [address] [place] Urea nitrogen [Mass/Vol] 13 mg/dL Normal 7-21 [facility] Comment on above: Order Comment: Speci men Type: BLOOD SPECIMENOrdering Facility: [facility] Address: [address] [address] Performed By: #### 2 4321-2 ####[facility]ORATORYCLIA [id number] [address] [place] CASE MGT INIT ASSESon 2022 CASE MGT INIT ASSES Normal [facility] CBC panel Auto (Bld)on 07-17 Erythrocyte distribution width (RBC) [Ratio] 12.5 % Normal 11.5-15.0 [facility] Comment on above: Order Comment: Speci men Type: BLOOD SPECIMENOrdering Facility: [facility] Address: [address] [place] [address] Performed By: #### 5 8410-2 ####[facility] LABORATORYCLIA [id number] [address] STATES OF [facility] Hematocrit (Bld) [Volume fraction] 32.1 % Low 36.0-46.0 [facility] Comment on above: Order Comment: Speci men Type: BLOOD SPECIMENOrdering Facility: [facility] Address: [address] [address] Performed By: #### 5 8410-2 ####[facility]ATORYCLIA [id number] [address] [place] Hemoglobin (Bld) [Mass/Vol] 10.8 g/dL Low 11.5-15.5 [facility] Comment on above: Order Comment: Speci men Type: BLOOD SPECIMENOrdering Facility: [facility] Address: [address] [address] Performed By: #### 5 8410-2 ####[facility]ORATORYCLIA [id number] [address] [place] MCH (RBC) [Entitic mass] 30.3 pg Normal 26.0-34.0 [facility] Comment on above: Order Comment: Speci men Type: BLOOD SPECIMENOrdering Facility: [facility] Address: [address] [place] [address] Performed By: #### 5 8410-2 ####[facility]ORATORYCLIA [id number] [address] STATES OF [facility] MCHC (RBC) [Mass/Vol] 33.6 g/dL Normal 30.5-36.0 [facility] Comment on above: Order Comment: Speci men Type: BLOOD SPECIMENOrdering Facility: [facility] Address: [address] [place] [address] Performed By: #### 5 8410-2 ####[facility]ORATORYCLIA [id number] [address] STATES OF [facility] MCV (RBC) [Entitic vol] 89.9 fL Normal 80.0-100.0 [facility] Comment on above: Order Comment: Speci men Type: BLOOD SPECIMENOrdering Facility: [facility] Address: [address] [place] [address] Performed By: #### 5 8410-2 ####[facility]ORATORYCLIA [id number] [address] OF [facility] Nucleated RBC (Bld) [#/Vol] 10*3/uL Normal <0.01 [facility] Comment on above: Order Comment: Speci men Type: BLOOD SPECIMENOrdering Facility: [facility] Address: [address] [place] [address] Performed By: #### 5 8410-2 ####[facility]ORATORYCLIA [id number] [address] [place] Platelet mean volume (Bld) [Entitic vol] 10.9 fL Normal 9.0-12.7 [facility] Comment on above: Order Comment: Speci men Type: BLOOD SPECIMENOrdering Facility: [facility] Address: [address] [place] [address] Performed By: #### 5 8410-2 ####[facility]ORATORYCLIA [id number] [address] [place] Platelets (Bld) [#/Vol] 248 10*3/uL Normal 150-400 [facility] Comment on above: Order Comment: Speci men Type: BLOOD SPECIMENOrdering Facility: [facility] Address: [address] [place] [address] Performed By: #### 5 8410-2 ####[facility]ORATORYCLIA [id number] [address] OF [facility] RBC (Bld) [#/Vol] 3.57 10*6/uL Low 3.90-5.20 [facility] Comment on above: Order Comment: Speci men Type: BLOOD SPECIMENOrdering Facility: [facility] Address: [address] [place] [address] Performed By: #### 5 8410-2 ####[facility]ORATORYCLIA [id number] [address] STATES OF [facility] WBC (Bld) [#/Vol] 19.60 10*3/uL High 3.70-11.00 [facility] Comment on above: Order Comment: Speci men Type: BLOOD SPECIMENOrdering Facility: [facility] Address: [address] [place] [address] Performed By: #### 5 8410-2 ####[facility] LABORATORYCLIA [id number] [address] THERAPY NTon 07-17-2022 THERAPY NT Normal [facility] THERAPY NT Normal [facility] ALLIED HEALTHon 07-16-2022 ALLIED HEALTH Normal [facility] ALLIED HEALTH Normal [facility] ANES POSTPROC EVALon 023 ANES POSTPROC EVAL Normal [facility] ANES PRE-OPon 07-16-2022 ANES PRE-OP Normal [facility] BRIEF OP NOTon 07-16-2022 BRIEF OP NOT Normal [facility] Bacteria Spec Anaerobe Culto n 07-16-2022 Bacteria identified Anaer cx Nom (Unsp spec) Negative Normal [facility] Comment on above: Performed By: #### 1 1475-1, 6462-6, 635-3 ####[facility] LABORATORYCLIA [id number] [place] [address] [place] Bacteria identified Anaer cx Nom (Unsp spec) Negative Normal [facility] Comment on above: Performed By: #### 1 1475-1, 6462-6, 635-3 ####[facility] LABORATORYCLIA [id number] [place], [place] [id number] [place] [address] [place] Bacteria identified Anaer cx Nom (Unsp spec) Negative Normal [facility] Comment on above: Performed By: #### 1 1475-1, 635-3, 6462-6 ####[facility]ATORYCLIA [id number] [address] [place] Bacteria Wnd Culton 07-16-19 23 Bacteria identified Cx Nom (Wound) CULTURE, WOUND: No growth GRAM STAIN: No cells or organisms seen Normal [facility] Comment on above: Performed By: #### 1 1475-1, 6462-6, 635-3 ####[facility] LABORATORYCLIA [id number] [address] STATES [facility] Bacteria identified Cx Nom (Wound) CULTURE, WOUND: No growth GRAM STAIN: No organisms seen No Polymorphonuclear Leukocytes Normal [facility] Comment on above: Performed By: #### 1 1475-1, 6462-6, 635-3 ####[facility] LABORATORYCLIA [id number] [place], [place] [id number] [place] [address] STATES [facility] Bacteria identified Cx Nom (Wound) CULTURE, WOUND: No growth GRAM STAIN: No organisms seen Moderate Polymorphonuclear leukocytes Normal [facility] Comment on above: Performed By: #### 1 1475-1, 6462-6, 635-3 ####[facility] LABORATORYCLIA [id number] [place], [place] [id number] [place] [address] OF [place] Bacteria identified Cx Nom (Wound) CULTURE, WOUND: No growth GRAM STAIN: No organisms seen Rare Polymorphonuclear leukocytes Normal [facility] Comment on above: Performed By: #### 1 1475-1, 635-3, 6462-6 ####[facility] LABORATORYCLIA [id number] [place] [address] [place] Basic metabolic 2000 panelon 07-16-2022 Anion gap [Moles/Vol] 10 mmol/L Normal 9-18 [facility] Comment on above: Order Comment: Speci men Type: BLOOD SPECIMENOrdering Facility: [facility] Address: [address] [place] [address] Performed By: #### 2 4321-2 ####[facility]ORATORYCLIA [id number] [place] [address] [place] Calcium [Mass/Vol] 8.7 mg/dL Normal 8.5-10.2 [facility] Comment on above: Order Comment: Speci men Type: BLOOD SPECIMENOrdering Facility: [facility] Address: [address] [place] [address] Performed By: #### 2 4321-2 ####[facility] LABORATORYCLIA [id number] [place] [address] [place] Chloride [Moles/Vol] 101 mmol/L Normal 97-105 [facility] Comment on above: Order Comment: Speci men Type: BLOOD SPECIMENOrdering Facility: [facility] Address: [address] [place] [address] Performed By: #### 2 4321-2 ####[facility] LABORATORYCLIA [id number] [place] [address] [place] CO2 [Moles/Vol] 27 mmol/L Normal 22-30 [facility] Comment on above: Order Comment: Speci men Type: BLOOD SPECIMENOrdering Facility: [facility] Address: [address] [place] [address] Performed By: #### 2 4321-2 ####[facility] GENERAL LABORATORYCLIA [id number] [place] [address] [place] Creatinine [Mass/Vol] 0.74 mg/dL Normal 0.58-0.96 [facility] Comment on above: Order Comment: Speci men Type: BLOOD SPECIMENOrdering Facility: [facility] Address: [address] [place] [address] Performed By: #### 2 4321-2 ####[facility] LABORATORYCLIA [id number] [place] [address] [place] ESTIMATED GLOMERULAR FILTRATION RATE 94 mL/min/1.73m??? Normal >=60 [facility] Comment on above: Order Comment: Tawanda mosley Type: BLOOD SPECIMENOrdering Facility: [facility] Address: [address] [place] [address] Result Comment: Manasa mated Glomerular Filtration Rate (eGFR) is calculated using the 2020 CKD-EPI creatinine equation. This equation utilizes serum creatinine, sex, and age as parameters. The creatinine assay has traceable calibration to isotope dilution-mass spectrometry. Refer to KDIGO guidelines for clinical interpretation. In patients with unstable renal function, e.g. those with acute kidney injury, the eGFR may not accurately reflect actual GFR. Performed By: #### 2 4321-2 ####[facility] SERVICESCLIA [id number] [place] [address] [place] Glucose [Mass/Vol] 143 mg/dL High 74-99 [facility] Comment on above: Order Comment: Tawanda mosley Type: BLOOD SPECIMENOrdering Facility: [facility] Address: [address] [place] [address] Result Comment: The [place] [employer] (ADA) provides guidance for cutoff values for fasting glucose and random glucose. The ADA defines fasting as no caloric intake for at least 8 hours. Fasting plasma glucose results between 100 to 125 mg/dL indicate increased risk for diabetes (prediabetes).Fasting plasma glucose results greater than or equal to 126 mg/dL meet the criteria for diagnosis of diabetes. In the absence of unequivocal hyperglycemia, results should be confirmed by repeat testing. In a patient with classic symptoms of hyperglycemia or hyperglycemic crisis, random plasma glucose results greater than or equal to 200 mg/dL meet the criteria for diagnosis of diabetes.Reference: Standards of Medical Care in Diabetes 2016, [place] [employer]. Diabetes Care. 2016.39(Suppl 1). Performed By: #### 2 4321-2 ####[facility] LABORATORYCLIA [id number] [place] [id number] [place] Potassium [Moles/Vol] Normal [facility] Comment on above: Order Comment: Tawanda mosley Type: BLOOD SPECIMENOrdering Facility: [facility] Address: [address] [address] Result Comment: Unab le to assay due to interference from hemolysis. Suggest reorder as clinically indicated. Performed By: #### 2 4321-2 ####[facility] LABORATORYCLIA [id number] [place] [address] [place] [facility] Sodium [Moles/Vol] 138 mmol/L Normal 136-144 [facility] Comment on above: Order Comment: Speci men Type: BLOOD SPECIMENOrdering Facility: [facility] Address: [address] [place] [address] Performed By: #### 2 4321-2 ####[facility] LABORATORYCLIA [id number] [address] STATES OF [facility] Urea nitrogen [Mass/Vol] 13 mg/dL Normal 7-21 [facility] Comment on above: Order Comment: Speci men Type: BLOOD SPECIMENOrdering Facility: [facility] Address: [address] [place] [address] Performed By: #### 2 4321-2 ####[facility] LABORATORYCLIA [id number] [address] STATES [facility] Anion gap [Moles/Vol] 10 mmol/L Normal 9-18 [facility] Comment on above: Order Comment: Speci men Type: BLOOD SPECIMENOrdering Facility: [facility] Address: [address] [place] [address] Performed By: #### 2 157-6, 04665-1 ####[facility] LABORATORYCLIA [id number] [place] [address] [place] Calcium [Mass/Vol] 9.1 mg/dL Normal 8.5-10.2 [facility] Comment on above: Order Comment: Speci men Type: BLOOD SPECIMENOrdering Facility: [facility] Address: [address] [place] [address] Performed By: #### 2 157-6, 80777-0 ####[facility] LABORATORYCLIA [id number] [address] [place] Chloride [Moles/Vol] 102 mmol/L Normal 97-105 [facility] Comment on above: Order Comment: Speci men Type: BLOOD SPECIMENOrdering Facility: [facility] Address: [address] [place] [address] Performed By: #### 2 157-6, 13886-2 ####[facility] LABORATORYCLIA [id number] [address] OF [facility] CO2 [Moles/Vol] 28 mmol/L Normal 22-30 [facility] Comment on above: Order Comment: Speci men Type: BLOOD SPECIMENOrdering Facility: [facility] Address: [address] [place] [address] Performed By: #### 2 157-6, 81529-6 ####[facility] LABORATORYCLIA [id number] [address] Creatinine [Mass/Vol] 0.83 mg/dL Normal 0.58-0.96 [facility] Comment on above: Order Comment: Speci men Type: BLOOD SPECIMENOrdering Facility: [facility] Address: [address] [place] [address] Performed By: #### 2 157-6, 01933-7 ####[facility] LABORATORYCLIA [id number] [address] ESTIMATED GLOMERULAR FILTRATION RATE 82 mL/min/1.73m??? Normal >=60 [facility] Comment on above: Order Comment: Speci men Type: BLOOD SPECIMENOrdering Facility: [facility] Address: [address] [place] [address] Result Comment: Manasa mated Glomerular Filtration Rate (eGFR) is calculated using the 2020 CKD-EPI creatinine equation. This equation utilizes serum creatinine, sex, and age as parameters. The creatinine assay has traceable calibration to isotope dilution-mass spectrometry. Refer to KDIGO guidelines for clinical interpretation. In patients with unstable renal function, e.g. those with acute kidney injury, the eGFR may not accurately reflect actual GFR. Performed By: #### 2 157-6, 07909-7 ####[facility] LABORATORYCLIA [id number] [place] [address] [place] Glucose [Mass/Vol] 139 mg/dL High 74-99 [facility] Comment on above: Order Comment: Speci men Type: BLOOD SPECIMENOrdering Facility: [facility] Address: [address] [place] [address] Result Comment: The [place] Diabetes Association (ADA) provides guidance for cutoff values for fasting glucose and random glucose. The ADA defines fasting as no caloric intake for at least 8 hours. Fasting plasma glucose results between 100 to 125 mg/dL indicate increased risk for diabetes (prediabetes).Fasting plasma glucose results greater than or equal to 126 mg/dL meet the criteria for diagnosis of diabetes. In the absence of unequivocal hyperglycemia, results should be confirmed by repeat testing. In a patient with classic symptoms of hyperglycemia or hyperglycemic crisis, random plasma glucose results greater than or equal to 200 mg/dL meet the criteria for diagnosis of diabetes.Reference: Standards of Medical Care in Diabetes 2016, [place] [employer]. Diabetes Care. 2016.39(Suppl 1). Performed By: #### 2 157-6, 81898-4 ####[facility] LABORATORYCLIA [id number] [place] [address] [place] Potassium [Moles/Vol] 3.8 mmol/L Normal 3.7-5.1 [facility] Comment on above: Order Comment: Tawanda mosley Type: BLOOD SPECIMENOrdering Facility: [facility] Address: [address] [place] [address] Performed By: #### 2 157-6, 22359-3 ####[facility] LABORATORYCLIA [id number] [place] [address] [place] Sodium [Moles/Vol] 140 mmol/L Normal 136-144 [facility] Comment on above: Order Comment: Speci men Type: BLOOD SPECIMENOrdering Facility: [facility] Address: [address] [place] [address] Performed By: #### 2 157-6, 97615-6 ####[facility] LABORATORYCLIA [id number] [place] [address] [place] Urea nitrogen [Mass/Vol] 13 mg/dL Normal 7-21 [facility] Comment on above: Order Comment: Speci men Type: BLOOD SPECIMENOrdering Facility: [facility] Address: [address] [place] [address] Performed By: #### 2 157-6, 13578-9 ####[facility] LABORATORYCLIA [id number] [address] STATES OF [facility] CBC W Auto Differential pane l (Bld)on 07-16-2022 Basophils (Bld) [#/Vol] 0.12 10*3/uL High <0.11 [facility] Comment on above: Order Comment: Speci men Type: BLOOD SPECIMENOrdering Facility: [facility] Address: [address] [place] [address] Performed By: #### 5 7021-8 ####[facility] LABORATORYCLIA [id number] [address] [place] Basophils/100 WBC (Bld) 0.8 % Normal [facility] Comment on above: Order Comment: Speci men Type: BLOOD SPECIMENOrdering Facility: [facility] Address: [address] [place] [address] Performed By: #### 5 7021-8 ####[facility] LABORATORYCLIA [id number] [address] STATES [facility] Differential cell count method Nom (Bld) Auto Normal [facility] Comment on above: Order Comment: Speci men Type: BLOOD SPECIMENOrdering Facility: [facility] Address: [address] [place] [address] Performed By: #### 5 7021-8 ####[facility] LABORATORYCLIA [id number] [place] [address] [place] Eosinophils (Bld) [#/Vol] 0.29 10*3/uL Normal <0.46 [facility] Comment on above: Order Comment: Speci men Type: BLOOD SPECIMENOrdering Facility: [facility] Address: [address] [place] [address] Performed By: #### 5 7021-8 ####[facility] LABORATORYCLIA [id number] [address] [place] Eosinophils/100 WBC (Bld) 2.0 % Normal [facility] Comment on above: Order Comment: Speci men Type: BLOOD SPECIMENOrdering Facility: [facility] Address: [address] [place] [address] Performed By: #### 5 7021-8 ####[facility] LABORATORYCLIA [id number] [address] [place] Erythrocyte distribution width (RBC) [Ratio] 12.9 % Normal 11.5-15.0 [facility] Comment on above: Order Comment: Speci men Type: BLOOD SPECIMENOrdering Facility: [facility] Address: [address] [place] [address] Performed By: #### 5 7021-8 ####[facility] LABORATORYCLIA [id number] [address] Hematocrit (Bld) [Volume fraction] 38.1 % Normal 36.0-46.0 [facility] Comment on above: Order Comment: Speci men Type: BLOOD SPECIMENOrdering Facility: [facility] Address: [address] [place] [address] Performed By: #### 5 7021-8 ####[facility] LABORATORYCLIA [id number] [address] [place] Hemoglobin (Bld) [Mass/Vol] 12.5 g/dL Normal 11.5-15.5 [facility] Comment on above: Order Comment: Speci men Type: BLOOD SPECIMENOrdering Facility: [facility] Address: [address] [place] [address] Performed By: #### 5 7021-8 ####[facility]ORATORYCLIA [id number] [address] Immature granulocytes (Bld) [#/Vol] 0.09 10*3/uL Normal <0.10 [facility] Comment on above: Order Comment: Speci men Type: BLOOD SPECIMENOrdering Facility: [facility] Address: [address] [place] [address] Performed By: #### 5 7021-8 ####[facility]ORATORYCLIA [id number] [address] Immature granulocytes/100 WBC (Bld) 0.6 % Normal [facility] Comment on above: Order Comment: Speci men Type: BLOOD SPECIMENOrdering Facility: [facility] Address: [address] [place] [address] Performed By: #### 5 7021-8 ####[facility]ORATORYCLIA [id number] [address] Lymphocytes (Bld) [#/Vol] 4.46 10*3/uL High 1.00-4.00 [facility] Comment on above: Order Comment: Speci men Type: BLOOD SPECIMENOrdering Facility: [facility] Address: [address] [place] [address] Performed By: #### 5 7021-8 ####[facility]ORATORYCLIA [id number] [address] Lymphocytes/100 WBC (Bld) 30.8 % Normal [facility] Comment on above: Order Comment: Speci men Type: BLOOD SPECIMENOrdering Facility: [facility] Address: [address] [place] [address] Performed By: #### 5 7021-8 ####[facility]ORATORYCLIA [id number] [address] MCH (RBC) [Entitic mass] 29.8 pg Normal 26.0-34.0 [facility] Comment on above: Order Comment: Speci men Type: BLOOD SPECIMENOrdering Facility: [facility] Address: [address] [place] [address] Performed By: #### 5 7021-8 ####[facility]ORATORYCLIA [id number] [address] MCHC (RBC) [Mass/Vol] 32.8 g/dL Normal 30.5-36.0 [facility] Comment on above: Order Comment: Speci men Type: BLOOD SPECIMENOrdering Facility: [facility] Address: [address] [place] [address] Performed By: #### 5 7021-8 ####[facility] GENERAL LABORATORYCLIA [id number] [address] [place] MCV (RBC) [Entitic vol] 90.7 fL Normal 80.0-100.0 [facility] Comment on above: Order Comment: Speci men Type: BLOOD SPECIMENOrdering Facility: [facility] Address: [address] [place] [address] Performed By: #### 5 7021-8 ####[facility]ORATORYCLIA [id number] [address] [place] Monocytes (Bld) [#/Vol] 1.21 10*3/uL High <0.87 [facility] Comment on above: Order Comment: Speci men Type: BLOOD SPECIMENOrdering Facility: [facility] Address: [address] [address] Performed By: #### 5 7021-8 ####[facility]ORATORYCLIA [id number] [address] [place] Monocytes/100 WBC (Bld) 8.4 % Normal [facility] Comment on above: Order Comment: Speci men Type: BLOOD SPECIMENOrdering Facility: [facility] Address: [address] [address] Performed By: #### 5 7021-8 ####[facility]ORATORYCLIA [id number] [place] [address] [place] Neutrophils (Bld) [#/Vol] 8.29 10*3/uL High 1.45-7.50 [facility] Comment on above: Order Comment: Speci men Type: BLOOD SPECIMENOrdering Facility: [facility] Address: [address] [address] Performed By: #### 5 7021-8 ####[facility]ORATORYCLIA [id number] [address] Neutrophils/100 WBC (Bld) 57.4 % Normal [facility] Comment on above: Order Comment: Speci men Type: BLOOD SPECIMENOrdering Facility: [facility] Address: [address] [place] [address] Performed By: #### 5 7021-8 ####[facility]ORATORYCLIA [id number] [address] Nucleated RBC (Bld) [#/Vol] 10*3/uL Normal <0.01 [facility] Comment on above: Order Comment: Speci men Type: BLOOD SPECIMENOrdering Facility: [facility] Address: [address] [place] [address] Performed By: #### 5 7021-8 ####[facility]ORATORYCLIA [id number] [address] Nucleated RBC/100 WBC (Bld) [Ratio] 0.0 /100 WBC Normal [facility] Comment on above: Order Comment: Speci men Type: BLOOD SPECIMENOrdering Facility: [facility] Address: [address] [place] [address] Performed By: #### 5 7021-8 ####[facility]ORATORYCLIA [id number] [address] [place] Platelet mean volume (Bld) [Entitic vol] 10.5 fL Normal 9.0-12.7 [facility] Comment on above: Order Comment: Speci men Type: BLOOD SPECIMENOrdering Facility: [facility] Address: [address] [place] [address] Performed By: #### 5 7021-8 ####[facility]ORATORYCLIA [id number] [address] Platelets (Bld) [#/Vol] 237 10*3/uL Normal 150-400 [facility] Comment on above: Order Comment: Speci men Type: BLOOD SPECIMENOrdering Facility: [facility] Address: [address] [place] [address] Performed By: #### 5 7021-8 ####[facility]ATORYCLIA [id number] [address] RBC (Bld) [#/Vol] 4.20 10*6/uL Normal 3.90-5.20 [facility] Comment on above: Order Comment: Speci men Type: BLOOD SPECIMENOrdering Facility: [facility] Address: [address] [address] Performed By: #### 5 7021-8 ####[facility]ATORYCLIA [id number] [address] WBC (Bld) [#/Vol] 14.46 10*3/uL High 3.70-11.00 [facility] Comment on above: Order Comment: Speci men Type: BLOOD SPECIMENOrdering Facility: [facility] Address: [address] [place] [address] Performed By: #### 5 7021-8 ####[facility]ORATORYCLIA [id number] [address] CBC panel Auto (Bld)on 07-16 Erythrocyte distribution width (RBC) [Ratio] 12.9 % Normal 11.5-15.0 [facility] Comment on above: Order Comment: Speci men Type: BLOOD SPECIMENOrdering Facility: [facility] Address: [address] [place] [address] Performed By: #### 5 8410-2 ####[facility]ATORYCLIA [id number] [address] Hematocrit (Bld) [Volume fraction] 34.4 % Low 36.0-46.0 [facility] Comment on above: Order Comment: Speci men Type: BLOOD SPECIMENOrdering Facility: [facility] Address: [address] [place] [address] Performed By: #### 5 8410-2 ####[facility] LABORATORYCLIA [id number] [place] [address] Hemoglobin (Bld) [Mass/Vol] 11.6 g/dL Normal 11.5-15.5 [facility] Comment on above: Order Comment: Speci men Type: BLOOD SPECIMENOrdering Facility: [facility] Address: [address] [place] [address] Performed By: #### 5 8410-2 ####[facility]ATORYCLIA [id number] [address] MCH (RBC) [Entitic mass] 30.5 pg Normal 26.0-34.0 [facility] Comment on above: Order Comment: Speci men Type: BLOOD SPECIMENOrdering Facility: [facility] Address: [address] [place] [address] Performed By: #### 5 8410-2 ####[facility]ORATORYCLIA [id number] [address] STATES OF [facility] MCHC (RBC) [Mass/Vol] 33.7 g/dL Normal 30.5-36.0 [facility] Comment on above: Order Comment: Speci men Type: BLOOD SPECIMENOrdering Facility: [facility] Address: [address] [place] [address] Performed By: #### 5 8410-2 ####[facility]ORATORYCLIA [id number] [address] OF [facility] MCV (RBC) [Entitic vol] 90.5 fL Normal 80.0-100.0 [facility] Comment on above: Order Comment: Speci men Type: BLOOD SPECIMENOrdering Facility: [facility] Address: [address] [place] [address] Performed By: #### 5 8410-2 ####[facility]ATORYCLIA [id number] [address] Platelet mean volume (Bld) [Entitic vol] 11.4 fL Normal 9.0-12.7 [facility] Comment on above: Order Comment: Speci men Type: BLOOD SPECIMENOrdering Facility: [facility] Address: [address] [address] Performed By: #### 5 8410-2 ####[facility]ORATORYCLIA [id number] [address] OF [facility] Platelets (Bld) [#/Vol] 225 10*3/uL Normal 150-400 [facility] Comment on above: Order Comment: Speci men Type: BLOOD SPECIMENOrdering Facility: [facility] Address: [address] [address] Performed By: #### 5 8410-2 ####[facility]ORATORYCLIA [id number] [place] [address] [place] RBC (Bld) [#/Vol] 3.80 10*6/uL Low 3.90-5.20 [facility] Comment on above: Order Comment: Speci men Type: BLOOD SPECIMENOrdering Facility: [facility] Address: [address] [address] Performed By: #### 5 8410-2 ####[facility]ORATORYCLIA [id number] [address] OF [facility] WBC (Bld) [#/Vol] 10.77 10*3/uL Normal 3.70-11.00 [facility] Comment on above: Order Comment: Speci men Type: BLOOD SPECIMENOrdering Facility: [facility] Address: [address] [place] [address] Performed By: #### 5 8410-2 ####[facility]ORATORYCLIA [id number] [address] [place] CK SerPl-cCncon 07-16-2022 CK [Catalytic activity/Vol] 466 U/L High 42-196 [facility] Comment on above: Order Comment: Speci men Type: BLOOD SPECIMENOrdering Facility: [facility] Address: [address] [place] [address] Performed By: #### 2 157-6, 95062-0 ####[facility]ORATORYCLIA [id number] [address] CONSULTon 07-16-2022 CONSULT Normal [facility] CONSULT Normal [facility] CONSULT Normal [facility] ED NOTEon 07-16-2022 ED NOTE HNO ID: [id number] Author: Pedro Pérez RN Service: ? Author Type: Registered Nurse Type: ED Notes Filed: 07/16/2022 6:36 AM Note Text: Bed: 22-ED Expected date: Expected time: Means of arrival: Comments: squad Normal [facility] ED NOTE HNO ID: [id number] Author: Tiffani Atwood RN Service: Emergency Medicine Author Type: Registered Nurse Type: ED Notes Filed: 07/16/2022 5:53 AM Note Text: Ortho paged for right shoulde x-ray order. Normal [facility] ED NOTE Normal [facility] ED NOTE HNO ID: [id number] Author: Tiffani Atwood RN Service: Emergency Medicine Author Type: Registered Nurse Type: ED Notes Filed: 07/16/2022 4:55 AM Note Text: X-ray notified Normal [facility] ED PROV NOTEon 07-16-2022 ED PROV NOTE Normal [facility] ESR Westergren method (Bld) [Velocity]on 07-16-2022 ESR (Bld) [Velocity] 18 mm/h Normal 0-20 [facility] Comment on above: Order Comment: Speci men Type: BLOOD SPECIMENOrdering Facility: [facility] Address: [address] [place] [address] Performed By: #### 4 537-7 ####[facility] LABCLIA [id number] [facility] [id number] [id number] [place] Lactate (Bld) [Moles/Vol]on 07-16-2022 Lactate [Moles/Vol] 2.0 mmol/L Normal 0.5-2.2 [facility] Comment on above: Order Comment: Speci men Type: BLOOD SPECIMENOrdering Facility: [facility] Address: [address] [place] [address] Performed By: #### 3 2693-4 ####[place] [facility]ORATORYCLIA [id number] [place], [place] [id number] [place] [address] Microorganism Spec Culton Microorganism identified Cx Nom (Unsp spec) CULTURE, FUNGAL: No Fungus isolated after 28 days FUNGAL SMEAR: No fungus seen Normal [facility] Comment on above: Performed By: #### 1 1475-1, 6462-6, 635-3 ####[facility]ATORYCLIA [id number] [address] Microorganism identified Cx Nom (Unsp spec) CULTURE, AFB: No Acid Fast Bacilli isolated after 42 days AFB STAIN: No acid fast bacilli seen by flurochrome stain Normal [facility] Comment on above: Performed By: #### 1 1475-1, 6462-6, 635-3 ####[facility]ATORYCLIA [id number] [address] Microorganism identified Cx Nom (Unsp spec) CULTURE, FUNGAL: No Fungus isolated after 28 days FUNGAL SMEAR: No fungus seen Normal [facility] Comment on above: Performed By: #### 1 1475-1, 6462-6, 635-3 ####[facility]ATORYCLIA [id number] [address] Microorganism identified Cx Nom (Unsp spec) CULTURE, AFB: No Acid Fast Bacilli isolated after 42 days AFB STAIN: No acid fast bacilli seen by flurochrome stain Normal [facility] Comment on above: Performed By: #### 1 1475-1, 6462-6, 635-3 ####[facility]ATORYCLIA [id number] [address] Microorganism identified Cx Nom (Unsp spec) CULTURE, FUNGAL: No Fungus isolated after 28 days FUNGAL SMEAR: No fungus seen Normal [facility] Comment on above: Performed By: #### 1 1475-1, 635-3, 6462-6 ####[facility]ATORYCLIA [id number] [address] OF [facility] Microorganism identified Cx Nom (Unsp spec) CULTURE, AFB: No Acid Fast Bacilli isolated after 42 days AFB STAIN: No acid fast bacilli seen by flurochrome stain Normal [facility] Comment on above: Performed By: #### 1 1475-1, 635-3, 6462-6 ####[facility]ORATORYCLIA [id number] [address] OF [facility] OPERATIVE NOon 07-16-2022 OPERATIVE NO Normal [facility] SARS-CoV-2 RNA Resp Ql RODERICK+p robeon 07-16-2022 SARS-CoV-2 (COVID-19) RNA RODERICK+probe Ql (Resp) COVID 19 RESULT: SARS-CoV-2 (Agent of COVID-19) Not Detected by RT-PCR or equivalent method. This test has been authorized by FDA under an Emergency Use Authorization (EUA). Normal [facility] Comment on above: Performed By: #### 9 4500-6 ####[facility]ATORYCLIA [id number] [address] XR FOREARM 2V AP/LAT RTon XR FOREARM 2V AP/LAT RT Normal [facility] XR SHLDR >/=3V AP/JOSÉ ANTONIO AP/OTH R RTon 07-16-2022 XR SHLDR >/=3V AP/JOSÉ ANTONIO AP/OTHR RT Normal [facility] XR WRIST 3V PA/LAT/OBL RTon 07-16-2022 XR WRIST 3V PA/LAT/OBL RT Normal [facility] ID - Travel Clinicon 019 ID - Travel Clinic Chief Complaint Patient presents here today for consult for traveling to [facility] December 31- January 18, 2019. History of Present Illness travel to [facility] and [place] all other vaccines from PCP malarone from PCP The patient plans to travel to the [place] [facility]. The travel begins 12/31 and ends 01/18. The purpose of travel is tourism. Accommodations may include: hotel. Prior immunizations: Hepatitis A, Hepatitis B, MMR, Polio and Tetanus. Active Problems Counseling for travel (V65.49) (Z71.89) Encounter for vaccination (V05.9) (Z23) Allergies Compazine Recorded By: Jose Carlos Benton; 12/22/2018 2:30:21 PM Phenergan Recorded By: Jose Carlos Benton; 12/22/2018 2:30:21 PM Current Meds Buprenorphine HCl - 8 MG Sublingual Tablet Sublingual; PLACE MG; Therapy: 22Dec2018 to Recorded Dispense: 0 Days ; #: Sufficient Tablet; Refill: 0; JEANETTE = N; Record; Last Updated By: Jose aCrlos Benton; 12/22/2018 2:30:21 PM Cephalexin 750 MG Oral Capsule; TAKE CAPSULE; Therapy: 22Dec2018 to Recorded Dispense: 0 Days ; #: Sufficient Capsule; Refill: 0; JEANETTE = N; Record; Last Updated By: Jose Carlos Benton; 12/22/2018 2:30:21 PM Cymbalta 60 MG Oral Capsule Delayed Release Particles; TAKE 1 CAPSULE Daily; Therapy: 22Dec2018 to Recorded Dispense: 0 Days ; #: Sufficient Capsule; Refill: 0; JEANETTE = N; Record; Last Updated By: Jose Carlos Benton; 12/22/2018 2:30:21 PM Lyrica 150 MG Oral Capsule; TAKE 1 CAPSULE 3 times daily; Therapy: 22Dec2018 to Recorded Dispense: 0 Days ; #: Sufficient Capsule; Refill: 0; JEANETTE = N; Record; Last Updated By: Jose Carlos Benton; 12/22/2018 2:30:21 PM SEROquel 300 MG Oral Tablet; TAKE 1 TABLET Bedtime; Therapy: 22Dec2018 to Recorded Dispense: 0 Days ; #: Sufficient Tablet; Refill: 0; JEANETTE = N; Record; Last Updated By: Jose Carlos eBnton; 12/22/2018 2:30:21 PM TEGretol-XR 400 MG Oral Tablet Extended Release 12 Hour; Take 1 tablet twice daily; Therapy: 22Dec2018 to Recorded Dispense: 0 Days ; #: Sufficient Tablet; Refill: 0; JEANETTE = N; Record; Last Updated By: Jose Carlos Benton; 12/22/2018 2:30:21 PM Vitals Vital Signs Recorded: 22Dec2018 02:28PM Heart Rate80 [id number] Diagnoses/Problems Counseling for travel (V65.49) (Z71.89) Orders Start: Azithromycin 250 MG Oral Tablet; TAKE 1 TABLET Daily as needed for travel related diarrhea for up to 3 days Rx By: Marcus Al; Dispense: 3 Days ; #:3 Tablet; Refill: 3;For: Counseling for travel; JEANETTE = N; Verified Transmission to [id number];3 Last Updated By:1 1,3 System, [employer];3 12/22/2018 2:1 1,3 51:3 1,3 05 PM3 Administer: Yellow fever vaccine; INJECT 1 ML Subcutaneous; To Be Done: For: Counseling for travel, Health Maintenance; Ordered By:1 1,2 Marcus Al;2 Effective Date: 1 Amended By: Marcus Al; Dec 22 2018 2:51 PM EST 2 Amended By: Marcus Al; Dec 22 2018 2:51 PM EST 3 Amended By: Marcus Al; Dec 22 2018 3:17 PM ESTProvider Impressions need YF they have everything else but atx for TD handouts given Signatures Electronically signed by : Marcus Al MD; Dec 22 2018 3:17PM EST (Author) Normal [employer] Vital Signs Date Time Vital Sign Value Performing Clinician Facility 12-29-2024 06:17-0400 Diastolic blood pressure 84 mm[Hg] Nida jameson MD Work Phone: [facility] 12-29-2024 06:17-0400 Heart rate 82 /min Nida Nobles MD Work Phone: [facility] 12-29-2024 06:17-0400 Respiratory rate 12 /min Nida Nobles MD Work Phone: [facility] 12-29-2024 06:17-0400 SaO2% (BldA) [Mass fraction] 97 % Nida Nobles MD Work Phone: [facility] 12-29-2024 06:17-0400 Systolic blood pressure 122 mm[Hg] Nida Nobles MD Work Phone: [facility] 12-29-2024 06:06-0400 Body temperature 98.01 [degF] Nida Nobles MD Work Phone: [facility] Comment on above: first temp since arrival 12-29-2024 03:03-0400 Body height 160 cm Nida Nobles MD Work Phone: [facility] 12-29-2024 03:03-0400 Body mass index (BMI) [Ratio] 29.23 kg/m2 Nida Nobles MD Work Phone: [facility] 12-29-2024 03:03-0400 Body weight 74.84 kg Nida Nobles MD Work Phone: [facility] 12-05-2023 14:10-0400 Blood Pressure Cuff Size JOSIE ONEIL MD [address] [place] [address] 12-05-2023 14:10-0400 Blood Pressure Location JOSIE ONEIL MD [address] [place] [address] 12-05-2023 14:10-0400 Blood Pressure Method JOSIE ONEIL MD [address] [place] [address] 12-05-2023 14:10-0400 Body temperature 98.24 [degF] JSOIE ONEIL MD [address] [place] [address] 12-05-2023 14:10-0400 Diastolic Blood Pressure Non-Invasive 59 mm[Hg] JOSIE ONEIL MD [address] [place] [address] 12-05-2023 14:10-0400 Heart rate 68 /min JOSIE ONEIL MD [facility] 12-05-2023 14:10-0400 Reason For Taking VItal Signs JOSIE ONEIL MD [address] [place] [address] 12-05-2023 14:10-0400 Respiratory rate 18 /min JOSIE ONEIL MD [address] [place] [address] 12-05-2023 14:10-0400 Systolic Blood Pressure Non-Invasive 105 mm[Hg] JOSIE ONEIL MD [address] [place] [address] 12-05-2023 10:46-0400 Blood Pressure Cuff Size JOSIE ONEIL MD [address] [place] [address] 12-05-2023 10:46-0400 Blood Pressure Location JOSIE ONEIL MD [facility] 12-05-2023 10:46-0400 Blood Pressure Method JOSIE ONEIL MD [address] [place] [address] 12-05-2023 10:46-0400 Body temperature 98.42 [degF] JOSIE ONEIL MD [address] [place] [address] 12-05-2023 10:46-0400 Diastolic Blood Pressure Non-Invasive 70 mm[Hg] JOSIE ONEIL MD [address] [place] [address] 12-05-2023 10:46-0400 Heart rate 64 /min JOSIE ONEIL MD [address] [place] [address] 12-05-2023 10:46-0400 Reason For Taking VItal Signs JOSIE ONEIL MD [address] [place] [address] 12-05-2023 10:46-0400 Respiratory rate 18 /min JOSIE ONEIL MD [address] [place] [address] 12-05-2023 10:46-0400 Systolic Blood Pressure Non-Invasive 112 mm[Hg] JOSIE ONEIL MD [address] [place] [address] 12-05-2023 06:31-0400 Blood Pressure Cuff Size JOSIE ONEIL MD [address] [place] [address] 12-05-2023 06:31-0400 Blood Pressure Location JOSIE ONEIL MD [address] [place] [address] 12-05-2023 06:31-0400 Blood Pressure Method JOSIE ONEIL MD [address] [place] [address] 12-05-2023 06:31-0400 Body temperature 98.24 [degF] JOSIE ONEIL MD [address] [place] [address] 12-05-2023 06:31-0400 Diastolic Blood Pressure Non-Invasive 63 mm[Hg] JOSIE ONEIL MD [address] [place] [address] 12-05-2023 06:31-0400 Heart rate 70 /min JOSIE ONEIL MD [address] 12-05-2023 06:31-0400 Reason For Taking VItal Signs JOSIE ONEIL MD [address] [place] [address] 12-05-2023 06:31-0400 Respiratory rate 18 /min JOSIE ONEIL MD [address] 12-05-2023 06:31-0400 Systolic Blood Pressure Non-Invasive 112 mm[Hg] JOSIE ONEIL MD [address] 12-04-2023 23:33-0400 Heart rate 75 /min JOSIE ONEIL MD [address] 12-04-2023 20:11-0400 Heart rate 76 /min JOSIE ONEIL MD [address] 12-04-2023 14:27-0400 Heart rate 75 /min JOSIE ONEIL MD [address] [place] [address] 12-02-2023 22:13-0400 Body height 160 cm JOSIE ONEIL MD [address] [place] [address] 12-02-2023 22:13-0400 Body weight 76.5 kg JOSIE ONEIL MD [address] [place] [address] 12-02-2023 22:13-0400 Body weight 29.88 kg/m2 JOSIE ONEIL MD [address] [place] [address] 12-02-2023 11:36-0400 Body height 160 cm JSOIE ONEIL MD [address] [place] [address] 12-02-2023 11:36-0400 Body weight 79.3 kg JOSIE ONEIL MD [facility] 12-01-2023 18:50-0400 Diastolic Blood Pressure Non-Invasive 67 mm[Hg] LAVERN O'OLGA LIDIA DO [facility] 12-01-2023 18:50-0400 Heart rate 99 /min LAVERN O'OLGA LIDIA DO [facility] 12-01-2023 18:50-0400 Reason For Taking VItal Signs LAVERN O'OLGA LIDIA DO [facility] 12-01-2023 18:50-0400 Respiratory rate 18 /min LAVERN O'OLGA LIDIA DO [facility] 12-01-2023 18:50-0400 Systolic Blood Pressure Non-Invasive 98 mm[Hg] LAVERN O'OLGA LIDIA DO [facility] 12-01-2023 16:27-0400 Diastolic Blood Pressure Non-Invasive 68 mm[Hg] LAVERN O'OLGA LIDIA DO [facility] 12-01-2023 16:27-0400 Heart rate 90 /min LAVERN O'OLGA LIDIA DO [facility] 12-01-2023 16:27-0400 Reason For Taking VItal Signs LAVERN O'OLGA LIDIA DO [facility] 12-01-2023 16:27-0400 Respiratory rate 18 /min LAVERN O'OLGA LIDIA DO [facility] 12-01-2023 16:27-0400 Systolic Blood Pressure Non-Invasive 104 mm[Hg] LAVERN O'OLGA LIDIA DO [facility] 12-01-2023 14:21-0400 Diastolic Blood Pressure Non-Invasive 80 mm[Hg] LAVERN O'OLGA LIDIA DO [facility] 12-01-2023 14:21-0400 Heart rate 83 /min LAVERN O'OLGA LIDIA DO [facility] 12-01-2023 14:21-0400 Reason For Taking VItal Signs LAVERN RYANE DO [facility] 12-01-2023 14:21-0400 Respiratory rate 18 /min LAVERN RYANE DO [facility] 12-01-2023 14:21-0400 Systolic Blood Pressure Non-Invasive 125 mm[Hg] LAVERN RYANE DO [facility] 12-01-2023 12:39-0400 Blood Pressure Location LAVERN RYANE DO [facility] 12-01-2023 12:39-0400 Body temperature 97.88 [degF] LAVERN RYANE DO [facility] 12-01-2023 12:39-0400 Body weight 73.1 kg LAVERN RYANE DO [facility] 12-01-2023 12:39-0400 Heart rate 118 /min LAVERN SHIRLEY DO [facility] 05-13-2023 07:57-0400 Diastolic blood pressure 93 mm[Hg] Madeline Cazares MD Work Phone: [facility] 05-13-2023 07:57-0400 Heart rate 88 /min Madeline Cazares MD Work Phone: [facility] 05-13-2023 07:57-0400 Respiratory rate 16 /min Madeline Cazares MD Work Phone: [facility] 05-13-2023 07:57-0400 SaO2% (BldA) [Mass fraction] 95 % Madeline Cazares MD Work Phone: [facility] 05-13-2023 07:57-0400 Systolic blood pressure 134 mm[Hg] Madeline Cazares MD Work Phone: [facility] 05-13-2023 02:19-0400 Body temperature 98.1 [degF] Madeline Cazares MD Work Phone: [facility] 05-09-2023 02:36-0400 Body height 160 cm Madeline Cazares MD Work Phone: [facility] 05-09-2023 02:36-0400 Body mass index (BMI) [Ratio] 35.43 kg/m2 Madeline Cazares MD Work Phone: [facility] 05-09-2023 02:36-0400 Body weight 90.72 kg Madeline Cazares MD Work Phone: [facility] 08-05-2022 20:39-0500 SaO2% (BldA) [Mass fraction] 95 % [facility] Comment on above: Order Comment: Specimen Type: ARTERIAL B LOOD SPECIMENOrdering Facility: [facility] Address: [address] [place] [address] Performed By: #### A LLBG ####[facility] LABORATORYCLIA [id number] [place] [address] [place] [facility] Encounters Encounter Date Encounter Type Care Provider Facility Start: 12-29-2024 End: 12-29-2024 Emergency department patient visit Nida Nobles MD Work Phone: [facility] Comment on above: Seizure (CMS/HCC V24 , CMS/HCC V28) (Primary Dx) Start: 12-29-2024 End: 12-29-2024 Evaluation and management of inpatient Nida Nobles MD Work Phone: [facility] Start: 12-22-2024 ambulatory Alfredo Sanchez Fac ility:[facility] Start: 12-22-2024 End: 12-27-2024 Evaluation and management of inpatient Jt Morales Facility:[facility] Start: 07-25-2024 End: 07-25-2024 ambulatory Levi Platt Facility:[facility] Start: 07-24-2024 End: 07-24-2024 Emergency department patient visit Levi Platt Facility:[facility] Start: 07-17-2024 End: 07-21-2024 Evaluation and management of inpatient Tammy Karimi Facility:[facility] Start: 07-17-2024 ambulatory Tammy Karimi Faci lity:[facility] Start: 07-01-2024 End: 07-01-2024 ambulatory Tammy Karimi Facility:[facility] Start: 03-29-2024 End: 03-31-2024 Emergency department patient visit Tammy Karimi Facility:[facility] Start: 12-02-2023 End: 12-05-[address] TAMMY KARIMI MD Facility:[facility] Start: 12-02-2023 End: 12-05-2023 Observation JOSIE ONEIL MD [facility] Start: 12-01-2023 End: 12-01-2023 Emergency department patient visit LAVERN SHIRLEY DO [facility] Start: 10-07-2023 ambulatory JORDY Paez [facility] Start: 07-25-2023 End: 07-25-2023 ambulatory ANN JONES Facility:[facility] Start: 05-09-2023 End: 05-13-2023 [facility] Start: 05-08-2023 End: 05-13-2023 Evaluation and management of inpatient Madeline Cazares MD Work Phone: [id number] Comment on above: Transient alteration of awareness Start: 11-11-2022 End: 11-12-2022 ambulatory CAROL GAMEZ Facility:[facility] Start: 10-28-2022 End: 10-30-2022 ambulatory VADIM MARK [facility] Start: 10-26-2022 End: 10-27-2022 Emergency department patient visit YANDEL FONTANA [facility] Start: 10-20-2022 End: 10-20-2022 Emergency department patient visit RANI [facility] Start: 10-05-2022 End: 10-14-2022 Evaluation and management of inpatient TAMMY KARIMI Facility:[facility] Start: 10-04-2022 End: 10-04-2022 ambulatory TAMMY KARIMI Facility:[facility] Start: 08-14-2022 End: 08-17-2022 Evaluation and management of inpatient TAMMY KARIMI Facility:[facility] Start: 08-13-2022 End: 08-13-2022 ambulatory ZAIDA CALLOWAY Facility:[facility] Start: 07-24-2022 End: 08-08-2022 Evaluation and management of inpatient TAMMY KARIMI Facility:[facility] Start: 07-23-2022 End: 07-23-2022 Emergency department patient visit TAMMY KARIMI Facility:[facility] Start: 07-16-2022 End: 07-20-2022 Evaluation and management of inpatient ZAIDA AQUINO Facility:[facility] Start: 11-17-2017 End: 11-17-2017 Patient encounter procedure Other Other NOTES/RESULTS Procedures Date Procedure Procedure Detail Performing Clinician Start: 12-29-2024 Basic metabolic pane l calcium total Nida Nobles MD Work Phone: Start: 12-29-2024 CBC W Auto Different ial panel - Blood Nida Nobles MD Work Phone: Start: 12-29-2024 MANUAL DIFFERENTIAL - SYSMEX WAM Nida Nobles MD Work Phone: Start: 05-13-2023 Blood count complete automated Rebecca Velasquez MD Work Phone: Start: 05-12-2023 Drug assay valproic dipropylacetic acid total Randi Sahu MD Work Phone: Start: 05-12-2023 Creatinine blood Rebecca Velasquez MD Work Phone: Start: 05-11-2023 Glucose measurement, blood Todd Muhammad MD Work Phone: Start: 05-11-2023 EXTRA MICRO Yessy X Emely bose MD Work Phone: Start: 05-11-2023 URINALYSIS REFLEX TO CULTURE Yessy Moreno MD Work Phone: Start: 05-11-2023 Urnls dip stick/tabl et reagent auto microscopy Yessy Moreno MD Work Phone: Start: 05-11-2023 Electrolyte panel Mony Velasquez MD Work Phone: Start: 05-11-2023 Hepatic function panel Randi Sahu MD Work Phone: Start: 05-10-2023 Glucose measurement, blood Todd Muhammad MD Work Phone: Start: 05-10-2023 Creatinine blood Rebecca Velasquez MD Work Phone: Start: 05-09-2023 Glucose measurement, blood Todd Muhammad MD Work Phone: Start: 05-09-2023 Glucose measurement, blood oTdd Muahmmad MD Work Phone: Start: 05-09-2023 Culture bct isol&prs mptv id isolate ea urine Rebecca Velasquez MD Work Phone: Start: 05-09-2023 EXTRA MICRO Rebecca hadley MD Work Phone: Start: 05-09-2023 URINALYSIS REFLEX TO CULTURE Rebecca Velasquez MD Work Phone: Start: 05-09-2023 Drug tst prsmv instr mnt chem analyzers pr date Slime Interiano MD Work Phone: Start: 05-09-2023 Mri brain brain stem w/o contrast material Rebecca Velasquez MD Work Phone: Start: 05-09-2023 Blood count platelet automated Rebecca Velasquez MD Work Phone: Start: 05-08-2023 End: 05-09-2023 Drug screen quantitative levetiracetam Rebecca Velasquez MD Work Phone: Start: 05-08-2023 Bilirubin direct Gen Cazares MD Work Phone: Start: 05-08-2023 CBC AND ELECTRONIC DIFF Madeline Cazares MD Work Phone: Start: 05-08-2023 CHM 7 - ED Madeline Cazares MD Work Phone: Start: 05-08-2023 Complete blood count with white cell differential, automated Madeline Cazares MD Work Phone: Start: 05-08-2023 GOLD TOP TUBE Madeline Cazares MD Work Phone: Start: 05-08-2023 LAVENDER TOP TUBE Kelly Cazares MD Work Phone: Start: 05-08-2023 LT BLUE TOP TUBE Gen Cazares MD Work Phone: Start: 05-08-2023 MINT GREEN TOP TUBE Farida Cazares MD Work Phone: Start: 05-08-2023 RAINBOW DRAW Madeline Cazares MD Work Phone: Start: 05-08-[address] perfusion a n[address]ys ct w/blood flow&volume Madeline Cazares MD Work Phone: Start: 05-08-2023 Ct head/brain w/o co ntrast material Madeline Cazares MD Work Phone: Start: 05-08-2023 Lipid 1996 panel - S emily or Plasma Madeline Cazares MD Work Phone: Start: 11-17-2017 End: 11-17-2017 LABS (OUTSIDE) Other Other Plan of Treatment Date Care Activity Detail Author Start: 2039 RSV Immunization Parish lt Patients (1 - 1-dose 75+ series) RSV Immunization Adult Patients (1 - 1-dose 75+ series) Chasity Level Start: 05-08-2028 Lipid panel [facility] Start: 02-03-2025 DTaP,Tdap,and Td Vaccines (2 - Td or Tdap) DTaP,Tdap,and Td Vaccines (2 - Td or Tdap) [facility] Start: 02-03-2025 Tetanus vaccination TETANUS [facility] Start: 12-29-2024 Adolescent depressio n screening assessment Depression Screening [facility] Start: 12-29-2024 HIV screening HIV Screening [facility] Start: 12-29-2024 Screening for malignant neoplasm of colon Colorectal Cancer Screening: Colonoscopy [facility] Start: 12-29-2024 Social Influencers o f Health Screening Social Influencers of Health Screening [facility] Start: 04-20-2024 Pneumococcal Vaccine : 50+ Years (3 of 3 - PCV20 or PCV21) Pneumococcal Vaccine: 50+ Years (3 of 3 - PCV20 or PCV21) [facility] Start: 03-14-2024 COVID-19 Vaccine ( season) COVID-19 Vaccine ( season) [facility] Start: 03-14-2023 Influenza vaccination INFLUENZA VACC INE (#1) [facility] Start: 06-15-2019 Hepatitis B Vaccines (3 of 3 - 19+ 3-dose series) Hepatitis B Vaccines (3 of 3 - 19+ 3-dose series) [facility] Start: 07-03-2018 End: 07-03-2018 Ambulatory 07/03/2018 Rehab Services Visit Physical Therapy Tammy Karimi MD [address] [place], [place] [id number] Alona Rivero, PT [address] [phone] [facility] Start: 06-19-2018 End: 06-19-2018 Ambulatory 06/19/2018 Rehab Services Visit Physical Therapy Tammy Karimi MD [address] [place], [place] [id number] Alona Rivero, PT [address] [phone] [facility] Start: 03-14-2018 Influenza vaccination INFLUENZA VACC INE (#1) [facility] Work Phone: Start: 2014 Protein mass conc COLON CANCER SCREENING DISCUSSION [facility] Work Phone: Start: 2014 Zoster vaccine hzv live for subcutaneous use ZOSTER (SHINGLES) VACCINE (1 of 2) [facility] Start: 2014 Zoster Vaccines (1 o f 2) Zoster Vaccines (1 of 2) [facility] Start: 2009 Screening for malignant neoplasm of colon COLORECTAL CANCER SCREENING DISCUSSION [facility] Start: 2004 Fasting lipid profile LIPID SCREENIN G [facility] Work Phone: Start: 2004 Protein mass conc MAMMOGRAM SC REENING DISCUSSION [facility] Work Phone: Start: 2004 Screening for malignant neoplasm of breast MAMMOGRAM SCREENING DISCUSSION [facility] Start: 1985 Screening for malignant neoplasm of cervix [facility] Start: 1983 Hepatitis A Vaccines (1 of 2 - Risk 2-dose series) Hepatitis A Vaccines (1 of 2 - Risk 2-dose series) [facility] Start: 1983 Third diphtheria, tetanus and acellular pertussis (DTaP) vaccination TDAP (ADULT) [facility] Work Phone: Start: 1982 Tetanus vaccination TETANUS [facility] Work Phone: Start: 1977 HIV screening HIV SCREENING DISCUSSION [facility] Work Phone: Start: 1964 COVID-19 VACCINE (#1) COVID-19 VACCI NE (#1) [facility] Start: 1964 Screening for malignant neoplasm of breast Breast Cancer Screening [facility] Start: 1964 Hepatitis C antibody , confirmatory test HEPATITIS C VIRUS SCREENING [facility] Work Phone: End: 05-08-2023 Standard ECG [facility] Comment on above: One Time for 1 Occur rences starting 05/08/2023 until 05/08/2023 End: 05-09-2023 Standard ECG ECG ECG Routine One Time for 1 Occurrences starting 05/09/2023 until 05/09/2023 [facility] Comment on above: One Time for 1 Occur rences starting 05/09/2023 until 05/09/2023 Immunizations Immunization Date Immunization Notes Care Provider [facility] 04-14-2017 hepatitis A and hepatitis B vaccine Nida Nobles MD Work Phone: [facility] 06-20-2016 influenza virus vaccine, unspecified formulation Other Other [facility] Work Phone: Payers Date Payer Category Payer Commercial Indemnity [facility] [id number] 2024 Self-pay 2023 Unknown [id number] 2020 Private Health Insurance [id number] 2020 Private Health Insurance AENII CHRISTIANSON [id number] 2020-Present [address] [place] [address] [id number] 1965 Unknown [id number] 2.16.840.1.892562.3.579.2. 902 1965 Unknown [id number] 2.16.840.1.618594.3.579.2. 902 1965 Unknown [id number] 2.840.1.620722.3.579.2. 594 1965 Unknown [id number] 2.840.1.276303.3.579.2. 627 1965 Unknown [id number] 2..840.1.576066.3.579.2. 627 1965 Unknown [id number] 2.840.1.493183.3.579.2. 1143 Unknown [id number] 2.840.1.716216.3.579.2. 246 Unknown [id number] 2.840.1.890661.3.579.2. 462 Unknown [id number] 2.840.1.548474.3.579.2. 462 Unknown [id number] 2.840.1.407156.3.579.2. 462 Unknown [id number] 2.840.1.052022.3.579.2. 462 Unknown [id number] 2.840.1.247360.3.579.2. 462 Unknown [id number] 2.840.1.231482.3.579.2. 462 Unknown [id number] 2.840.1.884283.3.579.2. 462 Unknown [id number] 2.840.1.755339.3.579.2. 462 Unknown [id number] 2.840.1.512296.3.579.2. 462 Unknown [id number] 2.840.1.007879.3.579.2. 462 Unknown [id number] 2..840.1.145011.3.579.2. 462 Unknown [id number] 2.840.1.759435.3.579.2. 462 Unknown [id number] 2.840.1.822003.3.579.2. 462 Unknown [id number] 2.840.1.588946.3.579.2. 462 Unknown [id number] 2.16.840.1.205224.3.579.2. 462 Unknown [id number] 2.16.840.1.824059.3.579.2. 462 Unknown [id number] 2.16.840.1.145615.3.579.2. 462 Social History Date Type Detail Facility Tobacco smoking stat us NHIS Unknown if ever smoked [facility] Work Phone: Start: 1965 Sex Assigned At Not on file O [facility] Work Phone: Start: 05-09-2023 End: 12-29-2024 Tobacco smoking status NHIS Never smoked tobacco [facility] Start: 05-09-2023 End: 12-29-2024 Tobacco use and exposure Smokeless tobacco non-user [facility] Start: 05-09-2023 Alcohol intake Current drinke r of alcohol (finding) [facility] Start: 05-09-2023 Alcohol intake [facility] Start: 05-09-[address] [facility] Start: 12-30-2017 Gender identity Identifies as female gender (finding) [facility] Tobacco smoking status [facility] Start: 12-29-2024 Alcoholic beverage intake Ex-drinker (finding) [facility] Start: 12-29-2024 Alcohol Comment Pt currently i n rehab for alcohol abuse. [facility] Start: 1965 Sex assigned at Female T [facility] Start: 12-29-2024 Sex Female (finding) [facility] Goals Date Patient Goal Desired Activity /State Comment on above: 01/16/2018 Pt will amb ulate 10 m with 1 forearm crutch and good prosthetic foot clearance and hip/knee stability at >0.6 m/s 01/16/2018 Pt will ambulate for 300 ft with 1 forearm crutch and SBA to be able to ambulate safely into restaurants and family members homes to improve pt's access to her community. 01/16/2018 Pt will wear her prosthesis for 6 hours 5 days/week to return to ambulating to improve overall bone health and decrease sound LE joint strain. 01/16/2018 Pt will ambulate up/down curb step with 1 forearm crutch and prosthesis with SBA to improve access to her community. 01/16/2018 Pt will ambulate up/down 3 steps with 1 HR and 1 forearm crutch to improve access to her community. Functional Status Date Assessment Result Facility 12-05-2023 Functional Status Room check performed [facility] 12-05-2023 Functional Status Mod I [facility] 12-05-2023 Functional Status [facility] 12-05-2023 Functional Status [facility] 12-05-2023 Functional Status [facility] 12-05-2023 Functional Status [facility] 12-04-2023 Functional Status Dinner Percent 50 [facility] 12-04-2023 Functional Status [facility] 12-04-2023 Functional Status Breakfast Percent 25 [facility] 12-04-2023 Functional Status Sequential Com pression Device bilateral knee high applied/on [facility] 12-04-2023 Functional Status [facility] 12-03-2023 Functional Status [facility] 12-03-2023 Functional Status [facility] 12-03-2023 Functional Status Independent [facility] 12-02-2023 Functional Status Sensory Deficits None [facility] 12-02-2023 Functional Status Living Situation Psychi atric Unit [facility] 12-01-2023 Functional Status Standard Safet y ID band on, Allergy Band on, Call device within reach, Bed in low position, Wheels locked, Upper/Half-Length side-rails up, Safety level maintained [facility] Mental Status Date Assessment Result Facility 12-05-2023 Mental Status Orientation Assessment Orie nted x 4 [facility] 12-05-2023 Mental Status Orientation Oriented x 4 [facility] 12-05-2023 Mental Status [facility] 12-05-2023 Mental Status [facility] 12-04-2023 Mental Status [facility] 12-04-2023 Mental Status [facility] 12-01-2023 Mental Status Orientation Oriented x 4 [facility] Clinical Notes 07-16-2022 to 12-29-2024 ED Bed Hold Note - Sherie Mckeon EMT-P - 12/29/2024 2:53 AM EDTNida Nobles MD - 12/29/2024 2:53 AM EDTED Bed Hold Note - Sherie Mckeon EMT-P - 12/29/2024 2:53 AM EDT Note Date & Type Note Facility 12-29-2024 Emergency department Note Bed: AP-46 Expected date: Expected time: Means of arrival: Comments: EMS [facility] 12-29-2024 History of Presen t illness Narrative Chief Complaint Patient presents with Seizures Pt to ER from rehab for alcohol abuse. Reported multiple seizures at facility. EMS report fluttering of eyes followed by pt being alert in transit to ER. Pt hx seizures, takes Depakote, reports compliance. History of Present Illness: Pardeep Mark is a 59 y.o. female presents here today from rehab where she has been since November for alcohol abuse. She says that she had a seizure at the facility. She says that she had an aura first and then became unresponsive and she does not remember anything after that. EMS report she had fluttering of her eyes and was awake and alert and route. The patient does not remember EMS arriving there. She has a history of seizures says she been taking Depakote as prescribed. She says her last drink was weeks ago. She says she is feeling better now denies any headaches blurred vision or other associated symptoms. Denies nausea or vomiting. she says she fell out of her wheelchair when it happened but she denies any injury. Review of External Record -: Yes: Inpatient record reviewed admission to [facility] April 2023. On that visit they describe episodes that were thought to be seizure activity but may have also been stress-induced and not epileptic. She was initially on Keppra but switched over to Depakote to help with her mood disorder as well. The way they describe the seizure-like episodes with her fluttering eyes are similar to what happened today. PAST MEDICAL HISTORY: There is no problem list on file for this patient. Past Medical History: Diagnosis Date Seizures (CMS/HCC V24, CMS/[facility] V28) History reviewed. No pertinent surgical history. Allergies Allergen Reactions Phenergan [Promethazine] Itching and Rash Reglan [Metoclopramide Hcl] Itching and Rash No family history on file. SOCIAL HISTORY: Social History Tobacco Use Smoking status: Never Smokeless tobacco: Never Substance Use Topics Alcohol use: Not Currently Comment: Pt currently in rehab for alcohol abuse. Social History Social History Narrative Not on file REVIEW OF SYSTEMS: As per HPI PHYSICAL EXAM: ED Triage Vitals [12/29/24 0303] Temp Pulse Resp BP -- -- 18 119/87 SpO2 Temp src Heart Rate Source Patient Position 100 % -- -- -- BP Location FiO2 (%) -- -- CONSTITUTIONAL: Well-appearing and well-nourished female in no acute distress HEAD: Normocephalic, atraumatic. EYES: No conjunctival injection, no icterus. EARS: External ears appear normal. NOSE: Nose appears normal. No rhinorrhea. NECK: supple. No midline tenderness RESPIRATORY: Normal chest excursion with respiration, no stridor. Lungs are clear bilaterally. CARDIOVASCULAR: Regular rate and rhythm. No cyanosis. GASTROINTESTINAL: Abdomen soft, non-distended, non-tender, without rigidity. NEUROLOGICAL: Awake, alert and oriented. No focal deficits PSYCHOLOGICAL: The patient's mood and manner are appropriate. Grooming and personal hygiene are appropriate. INTEGUMENTARY: Warm and dry. No rash noted. ED STUDIES: Labs Reviewed BASIC METABOLIC PANEL - Abnormal Result Value Sodium 142 Potassium 3.7 Chloride 104 CO2 31 Anion Gap 7 Glucose 128 (*) BUN 12 Creatinine 0.53 (*) eGFR 106 BUN/Creatinine Ratio 22.6 (*) Calcium 8.2 (*) LACTATE - Abnormal Lactate 2.5 (*) CBC WITH AUTO DIFFERENTIAL - Abnormal WBC 7.7 RBC 3.73 (*) Hemoglobin 12.6 Hematocrit 37.6 MCV 100.8 (*) MCH 33.8 MCHC 33.5 RDW 13.0 Platelets 143 MPV 10.8 MANUAL DIFFERENTIAL - INSTRUMENT DIFFERENTIAL - Abnormal Neutrophils % 61.6 Lymphocytes % 24.2 Monocytes % 11.1 Myelocytes % 1.0 (*) Atypical Lymphocytes % 2.0 (*) Neutrophils Absolute 4.74 Lymphocytes Absolute 1.86 Monocytes Absolute 0.85 Myelocytes Absolute 0.08 (*) Atypical Lymphocytes Abs Manual Count 0.15 (*) Vacuolated Neutrophils Present Present (*) Total Counted 100 CBC AND DIFFERENTIAL Narrative: The following orders were created for panel order CBC and differential. Procedure Abnormality Status --------- ------ CBC auto differential[[id number]] Abnormal Final result Please view results for these tests on the individual orders. VALPROIC ACID LEVEL, TOTAL No orders to display ED COURSE: Vitals: 12/29/24 0500 12/29/24 0515 12/29/24 0530 12/29/24 0606 BP: 122/77 (!) 123/90 Pulse: 80 81 80 Resp: Temp: 36.7 C (98 F) TempSrc: Oral SpO2: 95% 90% 91% Weight: Height: Medications - No data to display Clinical Impressions as of 12/29/24 0612 Seizure ([facility] V24, [facility] V28) In summary, Pardeep Mark is a 59 y.o. female with a history of seizure disorder presents here today send she had an aura and then had a seizure. In reading the description of her previous records the seizure described by the medics. The patient had no further seizure activity while she was here. Her lactic acid was slightly elevated 2.5 which may have indicated there was an epileptic type seizure today but her electrolytes are unremarkable. She does not appear to be in alcohol withdrawal based on her vitals and the fact that her last drink was about 2 weeks ago. The patient is appropriate for outpatient follow-up. I sent a Depakote level and she can be called with results to determine whether she needs to raise her lower the dose. She was discharged home in good condition. Differential Diagnosis Considered - : Yes, the differential associated with the patient's presentation includes seizure, pseudoseizure, subtherapeutic Depakote, electrolyte abnormalities Escalation of care including admission/observation considered - : If she had evidence of status epilepticus Test Considered But Not Performed List - : CT brain but she had no headache and denied any injury Chronic Conditions Affecting Care -: Yes: Substance abuse s DIAGNOSTIC IMPRESSION: 1. Seizure (CMS/[facility] V24, CMS/[facility] V28) DISPOSITION: Discharge PDMP Reviewed by: on ED Prescriptions None Procedures Nida Nobles MD 12/29/24 0322 Nida Nobles MD 12/29/24 0612 documented in this encounter [facility] 12-29-2024 Miscellaneous Notes Bed: [facility] Expected date: Expected time: Means of arrival: Comments: EMS documented in this encounter [facility] 12-27-2024 Note [facility] Medical Records Department [address] [place] [address] Discharge Summary 12/27/24 1039 MR#: [id number] Acct: [id number] Name: PARDEEP MARK Marcela Rep #: [id number] : 1965 59 From: Alfredo Sanchez MD PCP: Dr. Tammy Karimi MD Status:ADM IN Location: [place] [id number] Providers Date of Admission: 12/22/24 Primary Care Physician: Dr. Tammy Karimi MD Reason For Visit: ALCOHOL DETOX Diagnosis Discharge Diagnosis (1) Alcohol abuse: Status: Acute Code(s): F10.10 - Alcohol abuse, uncomplicated (2) Desire for detoxification: Status: Acute Medications at Discharge Home Medications aspirin 81 mg tablet,delayed release 81 mg PO DAILY [facility] health 05/20/18 atorvastatin 40 mg tablet 40 mg PO DAILY 12/26/23 buprenorphine 8 mg-naloxone 2 mg sublingual tablet 2 tab sublingual DAILY 12/26/23 divalproex 500 mg tablet,delayed release 500 mg PO BID Seizure disorder #180 tabs 07/01/24 escitalopram oxalate 10 mg tablet 10 mg PO DAILY 07/17/24 folic acid 1 mg tablet 1 mg PO DAILY@0800 #30 tabs 07/21/24 Hospital Course Operations None Procedures None Summary of Care Provided Minutes Spent on Discharge: 33 Hospital Course: Per HPI: PARDEEP MARK, is a 59 F who presented to [facility] ED on 12/22/2024 for alcohol detox. Saw patient at bedside in the ED. She was previously here for alcohol detox back in July. She was sober for about 3 to 4 months but then relapsed about 1 month ago. She quit drinking cold turkey about 24 hours prior to admission. She quickly began to have withdrawal symptoms and then this morning she had what she thought was a breakthrough seizure, so she came in for alcohol detox. She had been given 2 dose of Ativan before I saw her and was sitting back comfortably in bed and conversing normally. She was very pleasant with conversation and had good insight into her current condition. No other acute concerns at this time. Hospital Course: 1. Alcohol withdrawal with possible withdrawal seizure???59-year-old with a history of alcohol abuse as well as previous stroke and left lower extremity amputation presented to the hospital requesting detox from alcohol. She had been sober for 3 to 4 months prior to this relapse. She has outpatient support that she would like to return to and today her CIWA score was at 2. She did complete the phenobarbital taper which she tolerated well. I discussed with her the plan for discharge and she expressed understanding of the risks and benefits of going home and would still like to go home today. She does have a history of complex partial seizures and is on seizure medications for this. She would need to follow-up with her PCP in 3 to 5 days on discharge. She does have chronic neurological changes from her previous stroke but does cause some speech alterations. 2. 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 Her home medications were continued were appropriate Physical Exam Narrative General: Alert, Oriented x3, Cooperative, No apparent distress HEENT: Atraumatic, PERRLA, EOMI, Normocephalic Oral: Moist Mucosa Neck: Supple, No JVD Lungs: Diminished, Normal air movement, No rhonchi, No wheeze, No rales Cardiovascular: Regular rate, Regular Rhythm, Normal S1, Normal S2, No murmurs Abdomen: Soft, Non Tender, Non-Distended, No Hepato-splenomegaly Extremities: No edema, Capillary Refill Less than 3 Seconds Skin: No rashes, No breakdown Musculoskeletal: No Tenderness to Palpation of Joints or Extremities, left lower extremity amputation Neurological: Baseline neurological changes with speech abnormality, moves all extremities Psych/Mental Status: Normal Affect, Appropriate Weight / BMI Weight Weight: 204 lb 5.896 oz Body Mass Index (BMI) 36.1 ABG / Lab / Microbiology Data 12/26/24 06:03 12/26/24 06:03 D/C Instructions Discharge Diet: Low fat / Low cholesterol Call your doctor if you observe: Fever of 101 or Higher, Shortness of breath, Dizziness, Fainting spells, Swelling in the ankles, Chest pain and Increased palpitations (irregular heartbeat) DC O2, CPAP, BIPAP Needs Home O2 Discharge instructions: No Meaningful Use Info Meaningful Use Meaningful Use Diagnoses (Choose all that apply): None applicable Ischemic Stroke Statin Dosing Therapy Reference: STATIN DOSE THERAPY REFERENCE: * Patients > 75 years receive moderate or high dose statin therapy. * Patients 75 years or YOUNGER should receive HIGH intensity statin dose unless contraindicated. You will be required to document reason for non-treatment if statin daily dose does not meet guidelines. HIGH DOSE STATIN THERAPY DAILY (more content not included)... [facility] 07-21-2024 Note [facility] Medical Records Department [address] [place] [address] Discharge Summary 07/21/24 1029 MR#: [id number] Acct: [id number] Name: PARDEEP MARK Rep #: [id number] : 1965 59 From: Yola Garza MD PCP: Dr. Tammy Karimi MD Status:ADM IN Location: [address] Providers Date of Admission: 07/17/24 Date of Discharge: 07/21/24 Primary Care Physician: Dr. Tammy Karimi MD Reason For Visit: ALCOHOL WITHDRAWAL Diagnosis Discharge Diagnosis (1) Alcohol withdrawal seizure without complication: Status: Acute Code(s): F10.930 - Alcohol use, unspecified with withdrawal, uncomplicated; R56.9 - Unspecified convulsions Plan Patient is a 56-year-old lady admitted with alcohol withdrawal 1. Acute alcohol withdrawal - Patient has been admitted for treatment with phenobarb taper in addition to adjuvant medications including gabapentin, Bentyl, hydroxyzine and clonidine as needed for alcohol withdrawal symptoms. Patient was also placed on thiamine and folic acidConsultation placed to 180 counseling services ??? 07/19/2024;Patient seen still has significant tremors. Plan is to continue with current phenobarb taper ??? 07/20/2024; phenobarb taper discontinued with patient being significantly lethargic. Plan was to monitor patient for an additional day with possible discharge in a.m. ??? 07/21/2024 patient to follow-up at the [facility] counseling services for subsequent care 2. Complex partial seizures ???Patient is on Depakote did continue 3. Previous history of opioid dependence ??? Patient has remained in remission for several years and is currently on Suboxone plan is to continue with home dose of equivalent 4. 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 Patient has residual phantom leg syndrome 5. Dyslipidemia ???Patient is on statin therapy, continued at home dose 6. Depression with anxiety ??? Patient is on escitalopram did continue 7. Overweight with BMI of 29.8 -weight loss advised 8. DVT prophylaxis ???SC Lovenox 9. Hypokalemia -Corrected per protocol 10. Suspected cystitis ??? Patient started on ceftriaxone urine culture sent follow-up on result ??? Patient acute cystitis was confirmed on urinalysis patient however had requested to be discharged home. Prescription was written for Keflex Time spent in the patient's overall evaluation,decision-making process, review of diagnostic data, adjustment of management, discussion with other providers, nursing nursing and ancillary staff involved in patient's care documentation, 36 minutes Medications at Discharge Home Medications acetaminophen 500 mg tablet 1,000 mg PO BID PRN PRN Pain 05/20/18 ascorbic acid (vitamin C) 500 mg tablet (Vitamin C) 1,000 mg PO DAILY supplement 05/20/18 aspirin 81 mg tablet,delayed release 81 mg PO DAILY heart health 05/20/18 atorvastatin 40 mg tablet 40 mg PO DAILY 12/26/23 buprenorphine 8 mg-naloxone 2 mg sublingual tablet 2 tab sublingual DAILY 12/26/23 divalproex 500 mg tablet,delayed release 500 mg PO BID Seizure disorder #180 tabs 07/01/24 escitalopram oxalate 10 mg tablet 10 mg PO DAILY 07/17/24 cephalexin 500 mg capsule 500 mg PO TID #21 caps 07/21/24 folic acid 1 mg tablet 1 mg PO DAILY@0800 #30 tabs 07/21/24 thiamine HCl (vitamin B1) 100 mg tablet 100 mg PO DAILYCM #30 tabs 07/21/24 Physical Exam Narrative GENERAL: Patient in no apparent distress HEENT: Atraumatic; EYES; Anicteric, Normal Conjunctiva NECK; supple, normal thyroid, RESPIRATORY: Diminished to auscultation CARDIOVASCULAR: Regular S1 S2, GI: soft, normoactive bowel sounds, : No Renal angle tenderness; EXTREMITIES: No edema, no clubbing, MUSCULOSKELETAL: Left AKA NEURO: Awake; no lateralizing signs. SKIN: No Rash PSYCH; Flat affect Weight / BMI Weight Weight: 76.204 kg Body Mass Index (BMI) 29.7 ABG / Lab / Microbiology Data 07/17/24 12:10 07/17/24 12:10 Laboratory: Laboratory Results - last 24 hr 07/21/24 08:41: Urine Color Yellow, Urine Clarity Sl. Cloudy, Urine pH 6.0, Ur Specific [place] 1.015, Urine Protein 100 H, Urine Glucose (UA) Normal, Urine Ketones 5 H, Urine Occult Blood 250 H, Urine Nitrite Positive H, Urine Bilirubin Negative, Urine Urobilinogen 1 H, Ur Leukocyte Esterase 500 H, Urine RBC 10-25 SEEN, Urine WBC 25-50 SEEN, Ur Squamous Epith Cells 0-5 SEEN, Urine Bacteria 1+, Urine Mucus 0 SEEN D/C Instructions Discharge Diet: No restrictions Discharge Activity: Return to Normal Activity Call your doctor if you observe: Fever of 101 or Higher, Shortness of breath, Fainting spells and Chest pain DC O2, CPAP, BIPAP Needs Home O2 Discharge instructions: No Meaningful Use Info Meaningful Use Meaningful Use Diagnoses (Choose all that apply): None applicable Ischemic Stroke S (more content not included)... [facility] 12-07-2023 Note . MICRO - Microbiology PROCEDURE: Blood Culture (bacterial) [*1] SOURCE: Blood BODY SITE: COLLECTED DATE/TIME: 12/02/2023 13:52 EDT RECEIVED DATE/TIME: 12/02/2023 14:14 EDT START DATE/TIME: 12/02/2023 14:14 EDT FREE TEXT SOURCE: FINAL REPORTS Final Report [] Verified Date/Time/Personnel: 12/07/2023 14:59 EDT Blood Culture: No Growth at 5 days. PRELIMINARY REPORTS Preliminary Report [] Verified Date/Time/Personnel: 12/02/2023 14:59 EDT Culture has been received in lab and is no growth to date. Routine cultures are held for 5 days. Performing Locations *1: This test was performed at: [address], [facility]) 12-07-2023 Note . MICRO - Microbiology PROCEDURE: Blood Culture (bacterial) [*1] SOURCE: Blood BODY SITE: COLLECTED DATE/TIME: 12/02/2023 13:52 EDT RECEIVED DATE/TIME: 12/02/2023 14:14 EDT START DATE/TIME: 12/02/2023 14:14 EDT FREE TEXT SOURCE: FINAL REPORTS Final Report [] Verified Date/Time/Personnel: 12/07/2023 14:59 EDT Blood Culture: No Growth at 5 days. PRELIMINARY REPORTS Preliminary Report [] Verified Date/Time/Personnel: 12/02/2023 14:59 EDT Culture has been received in lab and is no growth to date. Routine cultures are held for 5 days. Performing Locations *1: This test was performed at: [address], [facility] , [facility] 12-05-2023 Hospital Discharg e instructions Patient Education 12/05/2023 14:50:24 Epilepsy, [id number] Epilepsy Epilepsy is when a person keeps having seizures. A seizure is a burst of abnormal activity in the brain. A seizure can change how you think or behave, and it can make it hard to be aware of what is happening. This condition can cause problems such as: Falls, accidents, and injury. Sadness (depression). Poor memory. Sudden unexplained in epilepsy (SUDEP). This is rare. Its cause is not known. Most people with epilepsy lead normal lives. What are the causes? This condition may be caused by: A head injury. An injury that happens at . A high fever during childhood. A stroke. Bleeding that goes into or around the brain. Certain medicines and drugs. Having too little oxygen for a long period of time. Abnormal brain development. Certain infections. Brain tumors. Conditions that are passed from parent to child (are hereditary). What are the signs or symptoms? Symptoms of a seizure vary from person to person. They may include: Jerky movements of muscles (convulsions). Stiffening of the body. Movements of the arms or legs that you are not able to control. Passing out (loss of consciousness). Breathing problems. Sudden falls. Confusion. Head nodding. Eye blinking or twitching. Lip smacking. Drooling. Fast eye movements. Grunting. Not being able to control when you pee or poop. Staring. Being hard to wake up (unresponsiveness). Some people have symptoms right before a seizure happens (aura) and right after a seizure happens. These symptoms include: Fear or anxiety. Feeling sick to your stomach (nauseous). Feeling like the room is spinning (vertigo). A feeling of having seen or heard something before (lucia cruz). Odd tastes or smells. Changes in how you see (vision), such as seeing flashing lights or spots. Symptoms that follow a seizure include: Being confused. Being sleepy. Having a headache. How is this treated? Treatment can control seizures. Treatment for this condition may involve: Taking medicines to control seizures. Having a device (vagus nerve stimulator) put in the chest. The device sends signals to a nerve and to the brain to prevent seizures. Brain surgery to stop seizures from happening or to reduce how often they happen. Having blood tests often to make sure you are getting the right amount of medicine. Once this condition has been diagnosed, it is important to start treatment as soon as possible. For some people, epilepsy goes away in time. Others will need treatment for the rest of their life. Follow these instructions at home: Medicines Take kfrx-har-hbkrqps and prescription medicines only as told by your doctor. Avoid anything that may keep your medicine from working, such as alcohol. Activity Get enough rest. Lack of sleep can make seizures more likely to occur. Follow your doctor's advice about driving, swimming, and doing anything else that would be dangerous if you had a seizure. ?If you live in the [place] check with your local DMV (department of [employer]) to find out about local driving laws. Each state has rules about when you can return to driving. Teaching others Teach friends and family what to do if you have a seizure. They should: Lay you on the ground to prevent a fall. Cushion your head and body. Loosen any tight clothing around your neck. Turn you on your side. Stay with you until you are better. Not hold you down. Not put anything in your mouth. Know whether or not you need emergency care. General instructions Avoid anything that causes you to have seizures. Keep a seizure diary. Write down what you remember about each seizure. Be sure to include what might have caused it. Keep all follow-up visits as told by your doctor. This is important. Contact a doctor if: You have a change in how often or when you have seizures. You get an infection or start to feel sick. You may have more seizures when you are sick. Get help right away if: A seizure does not stop after 5 minutes. You have more than one seizure in a row, and you do not have enough time between the seizures to feel better. A seizure makes it harder to breathe. A seizure is different from other seizures you have had. A seizure makes you unable to speak or use a part of your body. You did not wake up right after a seizure. These symptoms may be an emergency. Do not wait to see if the symptoms will go away. Get medical help right away. Call your local emergency services (911 in the [place] Do not drive yourself to the hospital. Summary Epilepsy is when a person keeps having seizures. A seizure is a burst of abnormal activity in the brain. Treatment can control seizures. Teach friends and family what to do if you have a seizure. This information is not intended to replace advice given to you by your health care provider. Make sure you discuss any questions you have with your health care provider. Document Released: 04/27/2010 Document Revised: 02/22/2019 Document Reviewed: 02/22/2019 [employer] Patient Education 2020 [employer]. Follow Up Care 12/02/2023 11:23:14 With:[facility] Address: [address] [place] [address]- When:Within 2 Week(s) only if needed Comments:If you are unable to see your own neurologist With:DAVID KARIMI MD Address: [address] [facility] [address] [place] [address]- When:3-7 days Comments:Please call the office to schedule a follow-up appointment. With:ANN JONES CNP Address: [address] [place] [phone] When:Within 1 Week(s) Comments:Seizure follow-up [facility] 12-05-2023 Note Discharge Instructions Thank you for allowing [facility] to assist you with your healthcare needs. The following is important discharge information regarding your hospital visit. Your Care Team TAMMY KARIMI MD Your Diagnosis Opiate addiction What to do next Instructions From Your Doctor -> For urinary tract infection, recommend finishing another 3 days of Bactrim to complete full treatment. -> For your seizures, your Depakote was increased. Due to the increase in this medication we recommend lab work in 1 week to ensure you are tolerating this. -> You will need to follow-up with your addiction management for refills on your buprenorphine. I am only able to provide a short prescription -> Continue to follow-up with your PCP for coordination of care. Follow Up Appointments Follow Up with [facility] When:In 2 weeks , only if needed Where:[address] [place] [address]- Additional Information: If you are unable to see your own neurologist Follow Up with TAMMY KARIMI MD When:Within 3-7 days Where:[address] [address]- Additional Information: Please call the office to schedule a follow-up appointment. Follow Up with ANN JONES CNP When:In 1 week Where:[address] [place] [address]- [phone] Additional Information: Seizure follow-up The Following Activity and Diet Have Been Ordered for You Discharge Activity - Ordered -- NO activity restrictions, DO not drive till cleared by neuro, 12/05/23 14:43:00 EDT Discharge Diet - Ordered -- Type of Diet: Regular Diet, No changes were made to your diet during your hospital stay. Please resume your pre hospitalization diet on discharge., 12/05/23 14:43:00 EDT The Following Equipment Has Been Ordered for You No qualifying data available. The Following Treatments Have Been Ordered for You Discharge Labs Discharge Outpatient Labwork - Ordered -- ammonia level/valproic acid level/CBC/CMP, increased depakote, follow-up within: 1 week, Results Notify to: TAMMY KARIMI MD, 12/05/23 14:43:00 EDT Discharge Radiology No qualifying data available. Other Therapies No qualifying data available. Post Acute Orders No qualifying data available. Someone Will Contact You Regarding These Home Health Referrals No home referrals have been ordered for you. No one will call you. Allergies Compazine shakey, Phenergan, shaking Phenergan shaking Reglan shakes promethazine Shakes Medications Please ask your primary doctor or pharmacist before taking any other medication not listed, including over the counter drugs, herbal medications, vitamins and or supplements as they may interact with your home medications. What How Much When Why Instructions Last Dose New aspirin (aspirin 81 mg oral tablet, chewable) 1 tab(s) by mouth Once a day Pickup at [facility] #[id number] New atorvastatin (atorvastatin 40 mg oral tablet) 1 tab(s) by mouth Once a day Pickup at [facility] #[id number] New sulfamethoxazole-trimethoprim (Bactrim DS 800 mg-160 mg oral tablet) 160 Milligram by mouth Two (2) times a day Duration: 3 Days Pickup at [facility] #[id number] Changed buprenorphine (buprenorphine 8 mg sublingual tablet) 1 tab(s) under the tongue Two (2) times a day Opiate addiction Duration: 10 Days Pickup at [facility] #[id number] Changed divalproex sodium (Depakote 250 mg oral delayed release tablet) 3 tab(s) by mouth Two (2) times a day Duration: 30 Days Pickup at [facility] #[id number] Changed hydrOXYzine (hydrOXYzine hydrochloride 50 mg oral tablet) 1 tab(s) by mouth Every 6 hours as needed for as needed for anxiety Duration: 14 Days Pickup at [facility] #[id number] Unchanged acetaminophen (acetaminophen 650 mg oral tablet, extended release) 2 tab(s) by mouth Every 8 hours as needed for pain 1-6 Unchanged Al hydroxide/ Mg hydroxide/ simethicone (Maalox) 30 Milliliter by mouth Every 4 hours as needed for for indigestion Unchanged magnesium hydroxide (magnesium hydroxide 8% oral suspension) 30 Milliliter by mouth Once a day Unchanged petrolatum topical (petrolatum topical ointment) 1 application Topical Three (3) times a day as needed for dry skin Unchanged traZODone (traZODone 50 mg oral tablet) 1 tab(s) by mouth Daily at bedtime as needed for Insomnia Pharmacy Information [facility][id number]: [address] [place], [place] [phone] What How Much When Comments Stop Taking cephalexin (cephalexin 500 mg oral capsule) 1 cap by mouth Two (2) times a day Duration: 7 Days Please take this list to your next doctor s visit. Bring all medications you take, including over the counter medications, herbals and other supplements with you to your doctor s visit. Patients and families are reminded to discard old lists and to update any records with all medication providers or retail pharmacies. Medication Leaflets divalproex sodium (dye dante PRO ex) Depakote, Depakote ER, Depakote Sprinkles What is the most important information I should know about divalproex sodium? You should not use divalproex sodium if you have liver disease, a urea cycle disorder, or a genetic disorder such as Alpers' disease or Alpers-Huttenlocher syndrome. Do not start or stop taking divalproex sodium during without your doctor's advice. Divalproex sodium may harm an unborn baby, but having a seizure during could harm both mother and baby. Do not use divalproex sodium to prevent migraine headaches if you are . Divalproex sodium can cause liver failure that may be fatal, especially in children under age 2 and in people with liver problems caused by certain genetic disorders. Call your doctor at once if the person taking this medicine has signs of liver or pancreas problems, such as: loss of appetite, upper stomach pain (that may spread to your back), ongoing nausea or vomiting, dark urine, swelling in the face, or jaundice (yellowing of the skin or eyes). Do not stop using divalproex sodium without your doctor's advice. Stopping suddenly may cause a serious, life-threatening type of seizure. What is divalproex sodium? Divalproex sodium comes in different pill forms that are for different uses. Divalproex sodium tablets and capsules are used to treat seizures in people with epilepsy who are at least 10 years old. Divalproex sodium tablets are sometimes used together with other seizure medications. Divalproex sodium tablets are also used in adults to prevent migraine headaches, or to treat manic episodes related to bipolar disorder (manic depression). Divalproex sodium may also be used for purposes not listed in this medication guide. What should I discuss with my healthcare provider before taking divalproex sodium? You should not use divalproex sodium if you are allergic to it, or if you have: liver disease; a urea cycle disorder; or a genetic mitochondrial (ZBQ-evu-POY-dree-al) disorder such as Alpers' disease or Alpers-Huttenlocher syndrome, especially in a child younger than 2 years old. Divalproex sodium can cause liver failure that may be fatal, especially in children under age 2 and in people with liver problems caused by a genetic mitochondrial disorder. Tell your doctor if you have ever had: liver problems caused by a genetic mitochondrial disorder; depression, mental illness, or suicidal thoughts or actions; or a family history of a urea cycle disorder or deaths with unknown cause. Some people have thoughts about suicide while taking divalproex sodium. Your doctor will need to check your progress at regular visits. Your family or other caregivers should also be alert to changes in your mood or symptoms. Using divalproex sodium during may increase the risk of serious defects that can develop early in , even before you know you are . Using this medicine during can also affect cognitive ability (reasoning, intelligence, problem-solving) later in your child's life. However, having a seizure during could harm both the mother and the baby. If you take divalproex sodium for seizures or manic episodes: The benefit of preventing seizures or manic episodes may outweigh any risks posed by this medicine. There may be other medications that are safer to use during . Do not start or stop taking divalproex sodium without your doctor's advice. Do not use divalproex sodium to prevent migraine headaches if you are or you could become . If you are not , use effective control to prevent while using divalproex sodium. Tell your doctor if you start or stop using hormonal contraception that contains estrogen ( control pills, injections, implants, skin patches, and vaginal rings). Estrogen can interact with divalproex sodium and make it less effective in preventing seizures. It may not be safe to breastfeed while using this medicine. Ask your doctor about any risk. How should I take divalproex sodium? Follow all directions on your prescription label and read all medication guides or instruction sheets. Your doctor may occasionally change your dose. Use the medicine exactly as directed. Drink plenty of water while you are taking this medication. Your dose may need to be changed if you do not get enough fluids each day. Swallow the capsule or tablet whole and do not crush, chew, break, or open it. If you cannot swallow a sprinkle capsule whole, open it and sprinkle the medicine into a spoonful of pudding or applesauce. Swallow the mixture right away. Do not save it for later use. You may need frequent blood tests. If you need surgery, tell the surgeon ahead of time that you are using divalproex sodium. In case of emergency, wear or carry medical identification to let others know you use divalproex sodium. Do not stop using divalproex sodium suddenly, even if you feel fine. Stopping suddenly may cause a serious, life-threatening type of seizure. Follow your doctor's instructions about tapering your dose. Store at room temperature away from moisture and heat. What happens if I miss a dose? Take the medicine as soon as you can, but skip the missed dose if it is almost time for your next dose. Do not take two doses at one time. What happens if I overdose? Seek emergency medical attention or call the Poison Help line at . What should I avoid while taking divalproex sodium? Drinking alcohol may increase certain side effects of divalproex sodium. Avoid driving or hazardous activity until you know how this medicine will affect you. Your reactions could be impaired. What are the possible side effects of divalproex sodium? Get emergency medical help if you have signs of an allergic reaction (hives, difficult breathing, swelling in your face or throat) or a severe skin reaction (fever, sore throat, burning eyes, skin pain, red or purple skin rash with blistering and peeling). Seek medical treatment if you have a serious drug reaction that can affect many parts of your body. Symptoms may include: skin rash, fever, swollen glands, muscle aches, severe weakness, unusual bruising, or yellowing of your skin or eyes. Call your doctor at once if the person taking this medicine has signs of liver or pancreas problems, such as: loss of appetite, upper stomach pain (that may spread to your back), ongoing nausea or vomiting, dark urine, swelling in the face, or jaundice (yellowing of the skin or eyes). Report any new or worsening symptoms to your doctor, such as: mood or behavior changes, depression, anxiety, panic attacks, trouble sleeping, or if you feel impulsive, irritable, agitated, hostile, aggressive, restless, hyperactive (mentally or physically), or have thoughts about suicide or hurting yourself. Call your doctor at once if you have any of these other side effects: easy bruising, unusual bleeding (nose, mouth, or gums), purple or red pinpoint spots under your skin; fever, swollen glands, mouth sores; confusion, tiredness, cold feeling, vomiting, change in your mental state; severe drowsiness; or worsening seizures. Common side effects may include: nausea, vomiting, stomach pain, diarrhea, constipation; headache, back pain; dizziness, drowsiness, weakness, tremors; memory problems, mood changes, trouble sleeping; bruising or bleeding; runny nose, sore throat, cough, wheezing, trouble breathing; fever, flu symptoms; problems with walking or coordination; swelling in your hands or feet; blurred vision, double vision, unusual eye movements; ringing in your ears; rash, hair loss; or changes in weight or appetite. This is not a complete list of side effects and others may occur. Call your doctor for medical advice about side effects. You may report side effects to FDA at 4-092-RQT-6577. What other drugs will affect divalproex sodium? Sometimes it is not safe to use certain medications at the same time. Some drugs can affect your blood levels of other drugs you take, which may increase side effects or make the medications less effective. Many drugs can affect divalproex sodium. This includes prescription and iahv-stx-dizyhzd medicines, vitamins, and herbal products. Not all possible interactions are listed here. Tell your doctor about all your current medicines and any medicine you start or stop using. Where can I get more information? Your pharmacist can provide more information about divalproex sodium. Remember, keep this and all other medicines out of the reach of children, never share your medicines with others, and use this medication only for the indication prescribed. Every effort has been made to ensure that the information provided by [employer]. ('[employer]') is accurate, up-to-date, and complete, but no guarantee is made to that effect. Drug information contained herein may be time sensitive. [employer] information has been compiled for use by healthcare practitioners and consumers in the [place] and therefore [employer] does not warrant that uses outside of the [place] are appropriate, unless specifically indicated otherwise. [employer] drug information does not endorse drugs, diagnose patients or recommend therapy. [employer] drug information is an informational resource designed to assist licensed healthcare practitioners in caring for their patients and/or to serve consumers viewing this service as a supplement to, and not a substitute for, the expertise, skill, knowledge and judgment of healthcare practitioners. The absence of a warning for a given drug or drug combination in no way should be construed to indicate that the drug or drug combination is safe, effective or appropriate for any given patient. [employer] does not assume any responsibility for any aspect of healthcare administered with the aid of information [employer] provides. The information contained herein is not intended to cover all possible uses, directions, precautions, warnings, drug interactions, allergic reactions, or adverse effects. If you have questions about the drugs you are taking, check with your doctor, nurse or pharmacist. Copyright [id number] [employer]. Version: 14.. Revision Date: 09/09/2019. Education Materials Epilepsy Epilepsy is when a person keeps having seizures. A seizure is a burst of abnormal activity in the brain. A seizure can change how you think or behave, and it can make it hard to be aware of what is happening. This condition can cause problems such as: Falls, accidents, and injury. Sadness (depression). Poor memory. Sudden unexplained in epilepsy (SUDEP). This is rare. Its cause is not known. Most people with epilepsy lead normal lives. What are the causes? This condition may be caused by: A head injury. An injury that happens at . A high fever during childhood. A stroke. Bleeding that goes into or around the brain. Certain medicines and drugs. Having too little oxygen for a long period of time. Abnormal brain development. Certain infections. Brain tumors. Conditions that are passed from parent to child (are hereditary). What are the signs or symptoms? Symptoms of a seizure vary from person to person. They may include: Jerky movements of muscles (convulsions). Stiffening of the body. Movements of the arms or legs that you are not able to control. Passing out (loss of consciousness). Breathing problems. Sudden falls. Confusion. Head nodding. Eye blinking or twitching. Lip smacking. Drooling. Fast eye movements. Grunting. Not being able to control when you pee or poop. Staring. Being hard to wake up (unresponsiveness). Some people have symptoms right before a seizure happens (aura) and right after a seizure happens. These symptoms include: Fear or anxiety. Feeling sick to your stomach (nauseous). Feeling like the room is spinning (vertigo). A feeling of having seen or heard something before (lucia cruz). Odd tastes or smells. Changes in how you see (vision), such as seeing flashing lights or spots. Symptoms that follow a seizure include: Being confused. Being sleepy. Having a headache. How is this treated? Treatment can control seizures. Treatment for this condition may involve: Taking medicines to control seizures. Having a device (vagus nerve stimulator) put in the chest. The device sends signals to a nerve and to the brain to prevent seizures. Brain surgery to stop seizures from happening or to reduce how often they happen. Having blood tests often to make sure you are getting the right amount of medicine. Once this condition has been diagnosed, it is important to start treatment as soon as possible. For some people, epilepsy goes away in time. Others will need treatment for the rest of their life. Follow these instructions at home: Medicines Take djwq-ufc-fsavifb and prescription medicines only as told by your doctor. Avoid anything that may keep your medicine from working, such as alcohol. Activity Get enough rest. Lack of sleep can make seizures more likely to occur. Follow your doctor's advice about driving, swimming, and doing anything else that would be dangerous if you had a seizure. ? If you live in the [place] check with your local DMV (department of [employer]) to find out about local driving laws. Each state has rules about when you can return to driving. Teaching others Teach friends and family what to do if you have a seizure. They should: Lay you on the ground to prevent a fall. Cushion your head and body. Loosen any tight clothing around your neck. Turn you on your side. Stay with you until you are better. Not hold you down. Not put anything in your mouth. Know whether or not you need emergency care. General instructions Avoid anything that causes you to have seizures. Keep a seizure diary. Write down what you remember about each seizure. Be sure to include what might have caused it. Keep all follow-up visits as told by your doctor. This is important. Contact a doctor if: You have a change in how often or when you have seizures. You get an infection or start to feel sick. You may have more seizures when you are sick. Get help right away if: A seizure does not stop after 5 minutes. You have more than one seizure in a row, and you do not have enough time between the seizures to feel better. A seizure makes it harder to breathe. A seizure is different from other seizures you have had. A seizure makes you unable to speak or use a part of your body. You did not wake up right after a seizure. These symptoms may be an emergency. Do not wait to see if the symptoms will go away. Get medical help right away. Call your local emergency services (911 in the [place] Do not drive yourself to the hospital. Summary Epilepsy is when a person keeps having seizures. A seizure is a burst of abnormal activity in the brain. Treatment can control seizures. Teach friends and family what to do if you have a seizure. This information is not intended to replace advice given to you by your health care provider. Make sure you discuss any questions you have with your health care provider. Document Released: 04/27/2010 Document Revised: 02/22/2019 Document Reviewed: 02/22/2019 [employer] Patient Education 2020 [employer] Additional Information VACCINATE! IT SAVES LIVES! Members of the community who have not yet received the COVID-19 vaccine and would like to receive it can visit one of [facility] vaccine clinics. There are many vaccine clinic locations within the [facility]. For locations and available times, please visit [email or web address] It is important to note that some COVID mobile vaccine clinics are held outdoors and may be canceled in rainy or stormy conditions. To learn more about pediatric vaccinations (ages 5-11), we invite you to visit the [facility] webpage. [email or web address] To learn more about the COVID-19 vaccine, we invite you to visit the CDC website for a list of frequently asked questions.https://www.cdc.gov/c oronavirus/2019-ncov/vaccines/f aq.html [facility] Patient Portal Access Instructions: Stay connected with your healthcare team and access your personal medical information anytime with the [facility] Patient Portal. Please follow the directions below to create your [facility] account: 1.Access the email account you provided upon registration to the hospital/physician office.2.Look for an invitation email from [facility].3.Open the email and access the invitation link: Accept Invitation to [facility].4.Fill in the required andrews to create your account. To access your account, visit [facility]. Click the blue button labeled Access Patient Portal and then log in with the username and password that you created in the steps above. You will be able to view your test results, lab results, a summary of your visits, upcoming appointments and more. There is also a convenient messaging option where you can send secure messages to your provider. In addition, you will have the ability to download any documents or summaries to your computer and/or send the information securely to a physician. Remember that your healthcare information is confidential, so carefully consider who you will allow to register on the [facility] Patient Portal for access to your information. You can also access the [facility] Patient Portal on the [employer] blanka. Simply click on Patient Portal and then log into your account. If you would like to receive a full copy of your medical records, please contact the [facility] Medical Records Department by calling [phone], Friday through Friday between 8 a.m. and 4:30 p.m. HOW TO SAFELY DISPOSE OF PRESCRIPTION MEDICATIONS Please use one of the following methods to safely dispose of your unused medications. 1.Use a drug disposal kit: the drug disposal pouch allows you to safely discard your old and unused drugs. Ask your nurse to give you one when you are discharged.2.Visit a local take-back location: Many local pharmacies and police departments have programs that collect old and unwanted prescription drugs. Call your local pharmacy or go to http://[employer]/8U8Tc0f to find one close to you.3.Make use of household items: Use cat litter or old coffee grounds to dispose medications if other options are not available. Mix your drugs with these household products, seal them in an airtight container and throw it into the garbage. Call [facility]: [phone] to be sure your drugs can be disposed of in this way. Some medicines may require a different approach.4.Never flush your medications down the toilet. IF YOU HAVE BEEN PRESCRIBED AN OPIOID FOR PAIN If you have been prescribed an opioid (such as hydrocodone, oxycodone or morphine), it is critical to understand the possible side effects and risks of opioid pain medications. Even when taken as directed, opioids can have several side effects including: Tolerance, meaning you might need to take more of a medication for the same pain relief. Nausea, vomiting and/or constipation. Sleepiness, dizziness, dry mouth, confusion, depression or itching. Physical dependence, meaning you have withdrawal symptoms when a medication is stopped, can develop within a few days. KNOW YOUR RESPONSIBILITIES It is important to know exactly how much and how often to take the opioid pain medications you are prescribed. Never take opioids in higher amounts or more often than prescribed. Do not combine opioids with alcohol or other drugs that cause drowsiness, such as benzodiazepines, also known as benzos, including diazepam and alprazolam, muscle relaxants or sleep aids. Never sell or share prescription opioids. This is illegal. Store opioids in a secure place and out of reach of others (including children, family, friends and visitors). The last page of this document has been signed and retained as a CHART COPY. Signatures Patient Education Materials Epilepsy, [facility]ul[facility]-Of[facility] Medication Leaflets Depakote My discharge plan and instructions have been reviewed and explained to me and IDEEDEE SHERYL C understand my current condition and have read and understand these discharge instructions. I have received a written copy of the plan/instructions. If I have questions, I am aware that I should contact my doctor. 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 Apparently patient was diagnosed with urinary tract infection a week prior to urgent care was put on ciprofloxacin. After multiple seizures she went to urgent care again who gave her Versed due to seizures and sent her to the hospital. She was discharged from [facility] and was on her way home when she had a significant fight with her daughter and was taken back to the [place] emergency department after talking to crisis center. She was pink slipped there for suicidal ideation stayed another night and was sent back to [facility]. She continued to have seizures at [facility] and therefore presented to [place] emergency department on November 30 with seizures as her chief complaint. She was noted to have mild right-sided facial droop on presentation. CT head was completed with no acute findings. 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 CT angiography head and neck showed no significant stenosis/aneurysm etc. There is concern for Sophia's paralysis and she was sent home again. She was given Keflex. Patient had another seizure and returned to the ER on the night of 12/02/23. She was admitted for neurology review. After admission, valproic acid level was found to be low normal at 70.1. Patient was given an extra dose of Depakote resulting in improvement in levels however she experienced another small seizure on 12/04/2023 lasting only about a minute. It is likely the infectious cause/previous antibiotics or not completely out of her system. MRI brain was completed to rule out other causes of seizure. It shows a remote right basal ganglia lacunar infarct and small vessel ischemic disease but nothing acute. Therefore patient should continue her aspirin/statin. Echocardiogram was also completed showing EF of 55 to 60%. No shunt. No significant valvular abnormalities. Lastly patient was seen by psychiatry who cleared her from a psychiatric standpoint On the day of discharge, patient had not had a seizure for 24 hours. Valproic acid level improved to about 100. Therefore neurology recommends increased Depakote to 750 mg twice daily. Repeat lab work in 1 week. Additionally aspirin/statin as there is an old stroke seen on her MRI. She should continue to follow-up with psychiatry/addiction management for her buprenorphine/psych meds. Cephalexin is replaced by Bactrim as this has a better safety profile (with regards to seizures). I would avoid fluoroquinolones in the future. Allergies Compazine shakey, Phenergan, shaking Phenergan shaking Reglan shakes promethazine Shakes Procedures Echo Summary: 1. Left ventricle: The cavity size is normal. Wall thickness is normal. Systolic function is normal. The estimated ejection fraction is 55-60%. Wall motion is normal; there are no regional wall motion abnormalities. Normal diastolic function. 2. Right ventricle: The RV systolic pressure by Doppler is 20 mm Hg. 3. Right atrium: The estimated right atrial pressure is 3 mm Hg. 4. Atrial septum: Agitated saline shows no shunt. Consults Consult to Physician - Ordered -- 12/02/23 14:48:00 EDT, ROGER VASQUEZ MD, Routine, Suicidal ideations Consult to Physician - Ordered -- 12/02/23 22:10:00 EDT, MICHAEL HAYES MD, Routine, CVA, breakthrough seizures vs pseudoseizures Imaging Results and Diagnostics MRI Brain w/o Contrast Result Date: December 03, 2023 Verified By: MADDISON MURRAY MD CLINICAL STATEMENT: IMPRESSION: Remote right basal ganglia lacunar infarcts and mild small vessel ischemicdisease. Objective Vitals and Measurements T: 36.8 C (Oral) TMIN: 36.7 C (Oral) TMAX: 37.1 C (Oral) HR: 68 RR: 18 BP: 105/59 SpO2: 97% Weight Dosing Weight: 76.5 kg (12/02/23) Dosing Weight: 79.3 kg (12/02/23) Constitutional - well nourished, alert, no gross deformities Head atraumatic, normocephalic Eyes Pupils equal, round, reactive to light, no conjunctival injection, extra ocular movements grossly intact, no scleral icterus Ears, Nose, and Throat trachea midline no lesions Respiratory Clear to auscultation without rales, rhonchi, wheezing or diminished breath sounds Cardiovascular regular rate and rhythm without murmurs. Normal S1 and S2. No cyanosis or edema Gastrointestinal (Abdomen) Bowel sounds present. Soft Musculoskeletal left above-knee amputation Skin: Skin normal color, texture and turgor with no lesions or eruptions Code Status Code Status - Ordered -- 12/02/23 14:48:00 EDT, Full Code, Constant Order Admission Date 12/02/23 Discharge Date 12/05/23 Patient Instructions -> For urinary tract infection, recommend finishing another 3 days of Bactrim to complete full treatment. -> For your seizures, your Depakote was increased. Due to the increase in this medication we recommend lab work in 1 week to ensure you are tolerating this. -> You will need to follow-up with your addiction management for refills on your buprenorphine. I am only able to provide a short prescription -> Continue to follow-up with your PCP for coordination of care. Medications New Prescription aspirin (aspirin 81 mg oral tablet, chewable)1 tab(s) by mouth once a day. Refills: 0. atorvastatin (atorvastatin 40 mg oral tablet)1 tab(s) by mouth once a day. Refills: 0. sulfamethoxazole-trimethoprim (Bactrim DS 800 mg-160 mg oral tablet)160 Milligram by mouth two (2) times a day for 3 Days. Refills: 0. Changed buprenorphine (buprenorphine 8 mg sublingual tablet)1 tab(s) under the tongue two (2) times a day for 10 Days. Refills: 0. divalproex sodium (Depakote 250 mg oral delayed release tablet)3 tab(s) by mouth two (2) times a day for 30 Days. Refills: 0. hydrOXYzine (hydrOXYzine hydrochloride 50 mg oral tablet)1 tab(s) by mouth every 6 hours as needed as needed for anxiety for 14 Days. Refills: 0. Unchanged acetaminophen (acetaminophen 650 mg oral tablet, extended release)2 tab(s) by mouth every 8 hours as needed pain 1-6. Al hydroxide/Mg hydroxide/simethicone (Maalox)30 Milliliter by mouth every 4 hours as needed for indigestion. magnesium hydroxide (magnesium hydroxide 8% oral suspension)30 Milliliter by mouth once a day. petrolatum topical (petrolatum topical ointment)1 application Topical three (3) times a day as needed dry skin. traZODone (traZODone 50 mg oral tablet)1 tab(s) by mouth daily at bedtime as needed Insomnia. Discontinued cephalexin (cephalexin 500 mg oral capsule)1 cap by mouth two (2) times a day for 7 Days. Refills: 0. Follow Up Follow Up with [facility] When:In 2 weeks , only if needed Where:[address] [place] [address]- Additional Information: If you are unable to see your own neurologist Follow Up with TAMMY KARIMI MD When:Within 3-7 days Where:[address] [place] [address]- Additional Information: Please call the office to schedule a follow-up appointment. Follow Up with ANN JONES CNP When:In 1 week Where:[address] [place] [address]- [phone] Additional Information: Seizure follow-up Follow Up Appointments No qualifying data available. Follow Up Labs/Studies Discharge Labs Discharge Outpatient Labwork - Ordered -- ammonia level/valproic acid level/CBC/CMP, increased depakote, follow-up within: 1 week, Results Notify to: TAMMY KARIMI MD, 12/05/23 14:43:00 EDT Discharge Studies No Follow-up Studies Discharge Diet Discharge Diet - Ordered -- Type of Diet: Regular Diet, No changes were made to your diet during your hospital stay. Please resume your pre hospitalization diet on discharge., 12/05/23 14:43:00 EDT Discharge Activity Discharge Activity - Ordered -- NO activity restrictions, DO not drive till cleared by neuro, 12/05/23 14:43:00 EDT Condition on Discharge Stable Readmission Risk/Palliative Score LACE Score: 7 (12/02/23 15:03:00) Palliative Total Score: 3 (12/02/23 15:03:00) Discharge Disposition Home Information Provided To Patient Time Spent >35 minutes with >50% of the time spent counseling patient and/or coordinating care Digitally Signed by WERO HERNANDEZ DO on 12/05/2023 02:49 PM [facility] 12-04-2023 Note Date of Service 12/04/23 Chief Complaint Patient is a 58-year-old female with past medical history of seizure disorder ((follows with [facility] neurology, Ann Poole), chronic pain syndrome with phantom pain secondary to left above-knee amputation, depression/anxiety, arthritis, TIA on aspirin who presented from [facility] facility after experiencing multiple seizures. Apparently patient was diagnosed with urinary tract infection a week prior to urgent care was put on ciprofloxacin. After multiple seizures she went to urgent care again who gave her Versed due to seizures and sent her to the hospital. She was discharged from [facility] and was on her way home when she had a significant fight with her daughter and was taken back to the [place] emergency department after talking to crisis center. She was pink slipped there for suicidal ideation stayed another night and was sent back to [facility]. She continued to have seizures at [facility] and therefore presented to [place] emergency department on November 30 with seizures as her chief complaint. She was noted to have mild right-sided facial droop on presentation. CT head was completed with no acute findings. 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 CT angiography head and neck showed no significant stenosis/aneurysm etc. There is concern for Sophia's paralysis and she was sent home again. She was given Keflex. Patient had another seizure and returned to the ER on the night of 12/02/23. She was admitted for neurology review. After admission, valproic acid level was found to be low normal at 70.1. Patient was given an extra dose of Depakote resulting in improvement in levels however she experienced another small seizure on 12/04/2023 lasting only about a minute. It is likely the infectious cause/previous antibiotics or not completely out of her system. MRI brain was completed to rule out other causes of seizure. It shows a remote right basal ganglia lacunar infarct and small vessel ischemic disease but nothing acute. Therefore patient should continue her aspirin/statin. Echocardiogram was also completed showing EF of 55 to 60%. No shunt. No significant valvular abnormalities. Lastly patient was seen by psychiatry who cleared her from a psychiatric standpoint. Subjective Patient seen and examined. Tired today. Reports 1 seizure episode. Decreasing in severity. She does report that her burning has improved. Her flank pain has also improved. Objective Vitals and Measurements T: 36.5 C (Oral) TMIN: 36.5 C (Oral) TMAX: 36.9 C (Oral) HR: 75 (Monitored) RR: 18 BP: 100/69 SpO2: 97% Intake and Output 7AM Yesterday to 7AM Today Intake and Output (Last 24 hours) Intake Oral Intake 440.00 Output Urine Voided 0.00 Stool Count 0.00 Urine Count 2.00 Total Summary Total Intake 440.00 Total Output 0.00 Fluid Balance 440.00 Physical Exam Constitutional - well nourished, alert, no gross deformities Head atraumatic, normocephalic Eyes Pupils equal, round, reactive to light, no conjunctival injection, extra ocular movements grossly intact, no scleral icterus Ears, Nose, and Throat trachea midline no lesions Respiratory Clear to auscultation without rales, rhonchi, wheezing or diminished breath sounds Cardiovascular regular rate and rhythm without murmurs. Normal S1 and S2. No cyanosis or edema Gastrointestinal (Abdomen) Bowel sounds present. Soft Musculoskeletal left above-knee amputation Skin: Skin normal color, texture and turgor with no lesions or eruptions Weight Dosing Weight: 76.5 kg (12/02/23) Dosing Weight: 79.3 kg (12/02/23) Medications Medications (19) Active Scheduled: (6) aspirin 81 mg Chewable 81 mg 1 tab(s), Oral, qDay atorvastatin 40 mg tablet 40 mg 1 tab(s), Oral, qDay buprenorphine 8 mg sublingual tablet 8 mg 1 tab(s), Sublingual, BID divalproex (Depakote) sodium 250 mg EC tablet 750 mg 3 tab(s), Oral, BID enoxaparin 40 mg/ 0.4mL syringe 40 mg 0.4 mL, Subcutaneous, qDay sulfamethoxazole-trimethoprim 800 mg-160 mg tablet 1 tab(s), Oral, BID Continuous: (1) NS (0.9% nacl) 1,000 mL 1,000 mL, Intravenous, 100 mL/hr PRN: (12) acetaminophen 325 mg Tablet 650 mg 2 tab(s), Oral, q6hr acetaminophen 325 mg Tablet 650 mg 2 tab(s), Oral, q4h acetaminophen 650 mg Suppository 650 mg 1 supp, Rectal, q4h Al hydrox/Mg hydrox/simethicone 200-200-20 mg/5 mL Susp UD 30 mL, Oral, q2h bisacodyl 5 mg EC tablet 10 mg 2 tab(s), Oral, qDay dextrose 50% Solution Disp syringe 50 mL 12.5 gram(s) 25 mL, IV Push, AsDirected docusate-senna (Senokot S) 50 mg-8.6 mg Tablet 1 tab(s), Oral, BID hydroxyzine hcl 25 mg tablet 50 mg 2 tab(s), Oral, q6h LORAZEPam 2 mg/mL 1 mL vial 2 mg 1 mL, IV Push, q5min melatonin 3 mg tablet 3 mg 1 tab(s), Oral, qHS ondansetron 2 mg/ 1 mL 2 mL INJ 4 mg 2 mL, IV Push, q4h traZODONE 50 mg Tablet 50 mg 1 tab(s), Oral, qHS Lab Results 12/02 11:51 WBC: 14.0 H Hgb: 13.0 Hct: 37.6 Platelet: 218 Neutrophil %: 72.2 Glucose Level: 89 Sodium Level: 142 Potassium Level: 3.8 BUN: 19.0 Creatinine Lvl (s): 0.52 Imaging Results and Diagnostics MRI Brain w/o Contrast Result Date: December 03, 2023 Verified By: MADDISON MURRAY MD CLINICAL STATEMENT: IMPRESSION: Remote right basal ganglia lacunar infarcts and mild small vessel ischemicdisease. EKG No qualifying data available. Assessment/Plan Breakthrough seizures Rule out stroke Pyelonephritis, Klebsiella, pansensitive Suicidal ideations Chronic pain syndrome Depression/anxiety History of TIA She has had multiple ER visits/multiple seizures over the last several days. She is on Depakote at home. She has been on antibiotics that lower the seizure threshold including fluoroquinolones/cephalosporins . Therefore I recommend transitioning to Bactrim. Her urinary symptoms are improving. Continue Ativan as needed for seizures. Neurology consulted. Extra Depakote given based on the low normal level. Right-sided facial paralysis likely Sophia's paralysis. Continue aspirin/statin. MRI brain shows only old stroke, echocardiogram neg for acute findings. UTI showing Klebsiella. Transition Rocephin to Bactrim. Continue for another 4 days to complete a total of 7 days. Improved. Patient has chronic pain and has a history of opioid dependence. Continue buprenorphine. Avoid opiates. Seen by behavioral health. Who are previous suicidal ideation. She has stable from a psychiatric standpoint and can be discharged whenever her medical conditions allow. DVT Esperanza Mark- [id number] was updated. Anticipated Date of Discharge Monitor overnight due to seizure today. If no further seizures, Anticipate discharge in the morning. Digitally Signed by WERO HERNANDEZ DO on 12/04/2023 06:16 PM Digitally Signed by WERO HERNANDEZ DO on 12/04/2023 07:07 PM [facility] 12-04-2023 Note . MICRO - Microbiology PROCEDURE: Urine Culture [*1] SOURCE: Urine, Clean Catch BODY SITE: COLLECTED DATE/TIME: 12/03/2023 14:22 EDT RECEIVED DATE/TIME: 12/03/2023 14:44 EDT START DATE/TIME: 12/03/2023 14:44 EDT FREE TEXT SOURCE: FINAL REPORTS Final Report [] Verified Date/Time/Personnel: 12/04/2023 14:26 EDT <10,000 cfu/ml. No Significant growth. Sensitivity not indicated. Performing Locations *1: This test was performed at: [facility], [address] [place] [address], [id number] , [facility] ([place]) 12-04-2023 Neurology Progres s note Date of Service 12/04/23 Chief Complaint Breakthrough seizures and right-sided weakness Subjective Patient seen and examined with no family at bedside. Nursing reports no acute events overnight or further concerns for seizure. Patient states that she has not had any further seizures since yesterday. She appears alert, orientated and following commands. Patient states that overall she feels better today however continues to have weakness on her right side but that this is improved. States at baseline she does not have any weakness of her face, continues to display right facial droop. Does also display mild weakness of her right side, speech is back to baseline per patient. No new complaints today. Objective Vitals and Measurements T: 36.9 C (Oral) TMIN: 36.7 C (Oral) TMAX: 36.9 C (Oral) HR: 85 RR: 18 BP: 121/75 SpO2: 93% Intake and Output 7AM Yesterday to 7AM Today Intake and Output (Last 24 hours) Intake Oral Intake 440.00 Output Urine Voided 0.00 Stool Count 0.00 Urine Count 1.00 Total Summary Total Intake 440.00 Total Output 0.00 Fluid Balance 440.00 Physical Exam Mental Status: Alert Orientation: oriented to person, hospital, and month Language: normal fluency, normal comprehension Speech: non-dysarthric Cranial Nerves: Pupils: 4mm -> 2mm bilaterally Visual Andrews: full to confrontation bilaterally CN III, IV, : EOMI. No sustained nystagmus CN V: normal light touch and temp sensation in V1, V2, V3, bilaterally. CN VII: right weakness, mild CN VIII: auditory acuity intact to bedside testing Sensation: Light touch: intact in UEs and RLE Motor: Involuntary movements: none Strength: LUE: 5/5 proximally, 5/5 distally RUE: 4/5 proximally, 4/5 distally LLE: s/p amputation RLE: 4/5 proximally, 4/5 distally Coordination: FNF intact bilaterally Weight Dosing Weight: 76.5 kg (12/02/23) Dosing Weight: 79.3 kg (12/02/23) Medications Medications (19) Active Scheduled: (6) aspirin 81 mg Chewable 81 mg 1 tab(s), Oral, qDay atorvastatin 40 mg tablet 40 mg 1 tab(s), Oral, qDay buprenorphine 8 mg sublingual tablet 8 mg 1 tab(s), Sublingual, BID divalproex (Depakote) sodium 250 mg EC tablet 750 mg 3 tab(s), Oral, BID enoxaparin 40 mg/ 0.4mL syringe 40 mg 0.4 mL, Subcutaneous, qDay sulfamethoxazole-trimethoprim 800 mg-160 mg tablet 1 tab(s), Oral, BID Continuous: (1) NS (0.9% nacl) 1,000 mL 1,000 mL, Intravenous, 100 mL/hr PRN: (12) acetaminophen 325 mg Tablet 650 mg 2 tab(s), Oral, q6hr acetaminophen 325 mg Tablet 650 mg 2 tab(s), Oral, q4h acetaminophen 650 mg Suppository 650 mg 1 supp, Rectal, q4h Al hydrox/Mg hydrox/simethicone 200-200-20 mg/5 mL Susp UD 30 mL, Oral, q2h bisacodyl 5 mg EC tablet 10 mg 2 tab(s), Oral, qDay dextrose 50% Solution Disp syringe 50 mL 12.5 gram(s) 25 mL, IV Push, AsDirected docusate-senna (Senokot S) 50 mg-8.6 mg Tablet 1 tab(s), Oral, BID hydroxyzine hcl 25 mg tablet 50 mg 2 tab(s), Oral, q6h LORAZEPam 2 mg/mL 1 mL vial 2 mg 1 mL, IV Push, q5min melatonin 3 mg tablet 3 mg 1 tab(s), Oral, qHS ondansetron 2 mg/ 1 mL 2 mL INJ 4 mg 2 mL, IV Push, q4h traZODONE 50 mg Tablet 50 mg 1 tab(s), Oral, qHS Lab Results 12/02 11:51 WBC: 14.0 H Hgb: 13.0 Hct: 37.6 Platelet: 218 Neutrophil %: 72.2 Glucose Level: 89 Sodium Level: 142 Potassium Level: 3.8 BUN: 19.0 Creatinine Lvl (s): 0.52 Imaging Results and Diagnostics MRI Brain w/o Contrast Result Date: December 03, 2023 Verified By: MADDISON MURRAY MD CLINICAL STATEMENT: IMPRESSION: Remote right basal ganglia lacunar infarcts and mild small vessel ischemicdisease. Assessment/Plan IMPRESSION Breakthrough seizures Likely provoked by UTI/abx, although her Depakote level was on the low end of the therapeutic range as well. MRI negative for acute findings. Her right-sided weakness is likely post-ictal in nature. Given MRI confirming a chronic infarct with recommend for patient to continue on aspirin 81 mg daily/statin for stroke prevention. No further seizures reported by staff or patient. Pt reports improvement of right-sided weakness however is not at baseline. No new complaints today. Psychiatry seen, no further thoughts of SI. PLAN: -MRI of the brain without contrast reviewed showed chronic remote right basal ganglia lacunar infarcts and mild small vessel ischemic disease. -Continue 750mg BID PO. Patient counseled to be compliant with AEDs. Continue to monitor for seizures. Continue seizure precaution. No further concerns for seizures reported by staff or patient today. -Labs reviewed today. Ammonia level 41,Valproic acid level 102.4. LFTs WNL. Recommend repeat ammonia level/valproic acid level/CBC/CMP in 1 week outpatient. Results will need to be followed up with PCP/Neuro[facility]. -Avoid medications like Wellbutrin and Tramadol which can lower seizure threshold -Seizure precautions discussed in detail. Patient counseled not climb on ladders, heights, roofs, patient counseled not to swim alone, patient counseled not to work with sharp objects, avoid sleep deprivation, excessive alcohol consumption, avoid using bath tubs and use shower for bathing. -Patient counseled not to drive for 6 months and would need clearance from outpatient neurologist prior to driving. -GI/DVT prophylaxis per primary team -PT/OT/ST per recommendations -Fall precautions -Further medical management per medical team -Case discussed with hospitalist medical team -Patient counseled the risks and health hazards of smoking, excessive alcohol intake, marijuana/cocaine/drug abuse and patient counseled not to smoke cigarettes, drink excessive alcohol as well as not to smoke marijuana. Patient understands the same. -Follow up with Neurology in 2-4 weeks as outpatient Discussed plan with collaborating physician who agrees with plan Independently spent 50 minutes with patient Will sign off. Please call with questions if any or further concerns for seizures. Thank you for allowing us to participate in patients care and management. All questions were answered Digitally Signed by SHAMA BERKOWITZ on 12/04/2023 01:52 PM [facility] 12-03-2023 Neurology Consult note Date of Service December 03, 2023 Reason for Consultation Breakthrough seizures and right-sided weakness Referring Physician Dr. Oneil History of Present Illness 58-year-old female who reports a long history of epilepsy diagnosed through [facility] with a 24-hour EEG capturing spells that were diagnosed as complex partial seizures. She describes her typical spell as a hot and flushed sensation that starts up associated with loss of consciousness and shaking. In the past she has had right-sided weakness following her spells. Typically she does not have breakthrough seizures however in the past few days she has had several. She has been on Cipro for a UTI. On presentation her Depakote level was 70. She reports compliance with 500 mg twice daily but reports that typically her level is on the higher end of the therapeutic range. She has not had any recent weight gain. It was reported that at 1 point she had a generalized tonic-clonic seizure though her other spells were described as shaking and a non tonic-clonic fashion. She was admitted and given Keppra which seem to improve her spells although she had a another 1 during her MRI scan this morning. By time staff arrived the seizure had self abated but she appeared to be in a postictal state. Her right side has been persistently weak throughout these events and has not returned to normal. She does endorse headaches surrounding her seizures but had not had any headaches preceding the onset of her breakthrough seizures. She cannot think of anything else that is been out of the ordinary. She also has had suicidal ideation due to a family issue. Review of Systems Aside from what is mentioned in the HPI, there were no other pertinent positives in the patient's neurologic review of systems. Physical Exam Vitals and Measurements T: 36.6 C (Oral) TMIN: 36.5 C (Oral) TMAX: 36.8 C (Oral) HR: 92 RR: 18 BP: 131/88 SpO2: 99% HT: 160 cm WT: 76.5 kg BMI: 29.88 Weight Dosing Weight: 76.5 kg (12/02/23) Dosing Weight: 79.3 kg (12/02/23) Neurologic Exam Mental Status: Alert Orientation: oriented to person, hospital, and month Language: normal fluency, normal comprehension Speech: dysarthric mildly Cranial Nerves: Pupils: 4mm -> 2mm bilaterally Visual Andrews: full to confrontation bilaterally Fundus: not well visualized as the patient wasn't tolerating the light and having trouble fixating CN III, IV, : EOMI. No sustained nystagmus CN V: normal light touch and temp sensation in V1, V2, V3, bilaterally. CN VII: right weakness, mild CN VIII: auditory acuity intact to bedside testing Sensation: Light touch: intact in UEs and RLE Motor: Involuntary movements: none Strength: LUE: 5/5 proximally, 5/5 distally RUE: 4/5 proximally, 4/5 distally LLE: s/p amputation RLE: 4/5 proximally, 4+/5 distally Coordination: FNF intact bilaterally Lab Results 12/01 11:58 WBC: 15.4 H Hgb: 13.3 Hct: 38.8 Platelet: 239 Neutrophil %: 70.2 Glucose Level: 95 Sodium Level: 139 Potassium Level: 3.7 BUN: 18.0 Creatinine Lvl (s): 0.66 Imaging Results and Diagnostics CT 12/01/23: remote R BG stroke CTA H/N 11/30: unrevealing TTE: no source of stroke was seen EKG Sinus Assessment/Plan Breakthrough seizures Likely provoked by UTI/abx, although her Depakote level was on the low end of the therapeutic range as well. Will given an extra dose of Depakote 500mg x 1 and continue 750mg BID. I added a morning level, with ammonia. Would prefer to avoid adding a second agent for now, especially given her suicidal ideation. If her MRI is negative for an acute findings, her right-sided weakness is likely post-ictal in nature. Would still recommend a daily baby aspirin if the MRI confirms a chronic infarct. Will follow. I asked her RN to page our service with any further seizures. She is aware of the driving restriction we recommend but we will need to formally advise no driving x 6 months in her paperwork as well. A total of 60 minutes was spent on this case (including reviewing the chart, taking a history, examining the patient, generating a diagnosis/plan, and discussing with the patient and RN.) Problem List/Past Medical History Ongoing 10/27/06 OR REVISIION AMPUTATION LEFT LEG DR MONTES DE [facility] 05/07 Debridement Left leg stump 07/09/06 OR REVISION LEFT ABOVE KNEE AMPUTATION DR MONTES [facility] 02/05/06 OR LEFT ABOVE THE KNEE AMPUTATION 04/02/06 OR DEBRIDEMENT AND CLOSURE LEFT ABOVE KNEE AMPUTATION DR MONTES DE [facility] AKA arthotomy and irrigation Lt knee 01/22 infection left above the knee amputation left knee surgery inf Procedure/Surgical History No qualifying data available. Medications Inpatient acetaminophen, 650 mg= 2 tab(s), Oral, q6hr, PRN aspirin, 81 mg= 1 tab(s), Oral, qDay Ativan, 2 mg= 1 mL, IV Push, q5min, PRN atorvastatin, 40 mg= 1 tab(s), Oral, qDay Bactrim DS, 1 tab(s), Oral, BID buprenorphine 8 mg sublingual tablet, 8 mg= 1 tab(s), Sublingual, BID Depakote, 750 mg= 3 tab(s), Oral, BID Dextrose 50% IV Push, 12.5 gram(s)= 25 mL, IV Push, AsDirected, PRN Dulcolax Laxative, 10 mg= 2 tab(s), Oral, qDay, PRN hydrOXYzine hydrochloride 25 mg oral tablet, 50 mg= 2 tab(s), Oral, q6h, PRN Lovenox, 40 mg= 0.4 mL, Subcutaneous, qDay Maalox, 30 mL, Oral, q2h, PRN melatonin, 3 mg= 1 tab(s), Oral, qHS, PRN NS 1,000 mL, 1000 mL, Intravenous Senokot S, 1 tab(s), Oral, BID, PRN traZODone, 50 mg= 1 tab(s), Oral, qHS, PRN Tylenol, 650 mg= 2 tab(s), Oral, q4h, PRN Tylenol, 650 mg= 1 supp, Rectal, q4h, PRN valproic acid IVPB Zofran, 4 mg= 2 mL, IV Push, q4h, PRN Home acetaminophen 650 mg oral tablet, extended release, 1300 mg= 2 tab(s), Oral, q8h, PRN buprenorphine 8 mg sublingual tablet, 8 mg= 1 tab(s), Sublingual, BID cephalexin 500 mg oral capsule, 500 mg= 1 cap(s), Oral, BID, Current Antibiotic Depakote 500 mg oral delayed release tablet, 500 mg= 1 tab(s), Oral, BID hydrOXYzine hydrochloride 50 mg oral tablet, 50 mg= 1 tab(s), Oral, q6h, PRN Maalox, 30 mL, Oral, q4h, PRN magnesium hydroxide 8% oral suspension, 2.4 gram(s)= 30 mL, Oral, qDay petrolatum topical ointment, 1 blanka, Topical, TID, PRN traZODone 50 mg oral tablet, 50 mg= 1 tab(s), Oral, qHS, PRN Allergies Compazine shakey, Phenergan, shaking Phenergan shaking Reglan shakes promethazine Shakes Social History Smoking Status - 09/18/2007 Patient is non-smoker Digitally Signed by MICHAEL HAYES MD on 12/03/2023 11:54 AM [facility] 12-03-2023 Note Exam Date Time Procedure Performing Provider Status 12/03/23 10:51 AM Echocardiogram, Adul t with Bubble Study- Auth (Verified) [facility] 05-22-2024 Note Date of Service 12/03/23 Chief Complaint Patient is a 58-year-old female with past medical history of seizure disorder ((follows with [facility] neurology, Ann Poole), chronic pain syndrome with phantom pain secondary to left above-knee amputation, depression/anxiety, arthritis, TIA on aspirin who presented from [facility] facility after experiencing multiple seizures. Apparently patient was diagnosed with urinary tractinfection a week prior to urgent care was put on ciprofloxacin. After multiple seizures she went [facility] who gave her Versed due to seizures and sent her to the hospital. She was discharged from [facility] and was on her way home when she had a significant fight with her daughterand was taken back to the [place] emergency department after talking to crisis center. She was pink slipped there for suicidal ideation stayed another night and was sent back to [facility]. She continued to have seizures at [facility] and therefore presented to [place] emergency department on November 30 with seizures as her chief complaint. She was noted to have mild right-sided facial droop on presentation. CT head was completed with no acute findings. 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 CTangiography head and neck showed no significant stenosis/aneurysm etc. There is concern for Sophia's paralysis and she was sent home again. She was given Keflex. Patient had another seizure and returned to the ER on the night of 12/02/23. She was admitted for neurology review. Subjective Patient seen and examined. Continues to report burning with urine. Bilateral flank pain noted. She did have a seizure this morning. Reports some tongue biting. States her seizures flared when she last had COVID. If she is not sick, she generally does not have issues. Denies any suicidal ideations. Fully alert, oriented. Objective Vitals and Measurements T: 36.7 C (Oral) TMIN: 36.5 C (Oral) TMAX: 36.8 C (Oral) HR: 78 (Monitored) RR: 16 BP: 106/71 SpO2:98% HT: 160 cm WT: 76.5 kg BMI: 29.88 Intake and Output 7AM Yesterday to 7AM Today Intake and Output (Last 24 hours) Intake Oral Intake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 on 12/02/2023 03:23 PM Digitally Signed by JOSIE ONEIL MD on 12/02/2023 03:23 PM Digitally Signed by JOSIE ONEIL MD on 12/02/2023 03:24 PM Digitally Signed by JOSIE ONEIL MD on 12/02/2023 06:03 PM [id number] NoteSINUS TACHYCARDIA INFERIOR INFARCT, OLD Electronic Signature: MIGUEL RODRIGEZ MD 12/04/2023 20:40:50[facility] 05-20-2024 Hospital Discharge instructions Patient Education 12/01/2023 16:01:20 First Aid: Seizures First Aid: Seizures A seizure results from a sudden olo of abnormal electrical signals in the brain. Symptoms may range from a minor daze to uncontrollable muscle spasms (convulsions). In many cases, the victim will lose consciousness. A seizure can be caused by a high fever, head injury, drug reaction, or condition such as epilepsy. Step 1. Protect the head Help the victim to the floor if he or she starts losing muscle control. Turn the person on his or her side for better breathing and to prevent choking and aspiration. Protect the victim's head from injury by placing something soft, such as folded clothes, beneath it, and by moving objects away from the victim. Don't cause injury by restraining the person or by placing anything in his or her mouth. Don't try to hold the person's tongue. Remove eyeglasses. Step 2. Preserve dignity Clear away bystanders. Reassure the victim, who may be confused, drowsy, or hostile when coming out of the seizure. Cover the person or provide dry clothes if muscle spasms have caused a loss of bladder control. Step 3. Check for injury Make sure the victim's mental state has returned to normal. One way to do this is to ask the personhis or her name, the year, and your location. Injuries can occur to the head, mouth, tongue, or body. Step 4. Call 911 If the seizure lasts longer than 5 minutes. Timing the seizure and recovery time is helpful in manycases. If a second seizure occurs If the victim doesn t regain consciousness If the victim is , has diabetes, or heart disease If the victim has no history of seizures If the person has sustained an injury during the seizure. [id number] [employer]. [address] [place] [address]. All rights reserved. This information is not intended as a substitute for professional medical care. Always follow yourhealthcare professional's instructions. Follow Up Care 12/01/2023 12:31:02 With:TAMMY KARIMI MD Address: [facility] [address] [address] [phone] When:2-4 days [facility] 05-20-2024 Emergency department Discharge summary Discharge Instructions Thank you for allowing [facility] to assist you with your healthcare needs. The following is importantdischarge information regarding your hospital visit. Diagnosis from Today's Visit Seizure What to Do Next Instructions from Your Care Team No qualifying data available. Post Acute Orders No qualifying data available. You Need to Schedule the Following Appointments Follow Up with TAMMY KARIMI MD When: When:Within 2-4 days Where:[address] [address] [phone] Allergies Compazine shakey, Phenergan, shaking Phenergan shaking Reglan shakes promethazine Shakes Medications Please ask your primary doctor or pharmacist before taking any other medication not listed, including over the counter drugs, herbal medications, vitamins and or supplements as they may interact withyour home medications. What How Much When Instructions Last Dose New cephalexin (cephalexin 500 mg oral capsule) 1 cap by mouth Two (2) times a day Duration: 7 Days Printed Prescription Unchanged carbamazepine (Tegretol XR) 800 Milligram by mouth Every day Unchanged duloxetine (Cymbalta) See Instructions As needed for 30 MG IN AM AND 60 MG IN PM 30 mg PO Unchanged methadone 10 Milligram by mouth Every day Unchanged minocycline 100 Milligram by mouth Two (2) times a day Unchanged multivitamin with fluoride (multivitamin with fluoride Vitamin A, D and C with Fluoride 0.25 mg/ 0.6 mL oral liquid) by mouth Every day Unchanged oxycodone (OxyContin) 40 Milligram by mouth Three (3) times a day Unchanged pregabalin (Lyrica) 50 Milligram by mouth Three (3) times a day Please take this list to your next doctor s visit. Bring all medications you take, including over the counter medications, herbals and other supplements with you to your doctor s visit. Patients and families are reminded to discard old lists and to update any records with all medication providers or retail pharmacies. Education Materials First Aid: Seizures A seizure results from a sudden loo of abnormal electrical signals in the brain. Symptoms may range from a minor daze to uncontrollable muscle spasms (convulsions). In many cases, the victim will lose consciousness. A seizure can be caused by a high fever, head injury, drug reaction, or condition such as epilepsy. Step 1. Protect the head Help the victim to the floor if he or she starts losing muscle control. Turn the person on his or her side for better breathing and to prevent choking and aspiration. Protect the victim's head from injury by placing something soft, such as folded clothes, beneath it, and by moving objects away from the victim. Don't cause injury by restraining the person or by placing anything in his or her mouth. Don't try to hold the person's tongue. Remove eyeglasses. Step 2. Preserve dignity Clear away bystanders. Reassure the victim, who may be confused, drowsy, or hostile when coming out of the seizure. Cover the person or provide dry clothes if muscle spasms have caused a loss of bladder control. Step 3. Check for injury Make sure the victim's mental state has returned to normal. One way to do this is to ask the personhis or her name, the year, and your location. Injuries can occur to the head, mouth, tongue, or body. Step 4. Call 911 If the seizure lasts longer than 5 minutes. Timing the seizure and recovery time is helpful in manycases. If a second seizure occurs If the victim doesn t regain consciousness If the victim is , has diabetes, or heart disease If the victim has no history of seizures If the person has sustained an injury during the seizure. [phone] [employer]. [address] [place] [address]. All rights reserved. This information is not intended as a substitute for professional medical care. Always follow yourhealthcare professional's instructions. Additional Information VACCINATE! IT SAVES LIVES! Members of the community who have not yet received the COVID-19 vaccine and would like to receive it can visit one of [facility] vaccine clinics. There are many vaccine clinic locations within the [facility]. For locations and available times, please visit www.gettheshot.coronavirus.[place].gov/. It is important to note that some COVID mobile vaccine clinics are held outdoors and may be canceled in rainy or stormy conditions. To learn more about pediatric vaccinations (ages 5-11), we invite you to visit the [facility] webpage. https://www.akZeccos.org/pages/5468-Sfchl-Acdjxqbasfc-Tawrftbnhj-Unjfn-Zeb stions.htmlTo learn more about the COVID-19 vaccine, we invite you to visit the CDC website for a list of frequently asked questions. https://www.cdc.gov/coronavirus/2019-ncov/vaccines/faq.html [facility] Patient Portal Access Instructions: Stay connected with your healthcare team and access your personal medical information anytime with the [facility] Patient Portal. If you would like a full copy of your medical records please contact the [facility] Medical Records Department Friday through Friday between 8a.m. and 4:30p.m. Please follow the directions below to access the portal: 1.Access the email account you provided upon registration to the [facility].2.Look for an invitation email from [facility].3.Open the email and access the invitation link: Accept Invitation to [facility]4.Fill in the required andrews to create your account. Sign into www.[employer] with your username and password that you created in the above steps to stay up to date. You can then view a summary of results, a summary of your visits, and the ability to download your summaries to your computer or send the information securely to a physician. Remember that your healthcare information is confidential, so carefully consider who you will allow to register on the [facility] Patient Portal for access to your information. You can also access the [facility] Patient Portal on the [employer] blanka. Simply click on Health Records under [employer] and then click on the [employer] logo. HOW TO SAFELY DISPOSE OF PRESCRIPTION MEDICATIONS Please use one of the following methods to safely dispose of your unused medications. 1.Use a drug disposal kit: the drug disposal pouch allows you to safely discard your old and unuseddrugs. Ask your nurse to give you one when you are discharged.2.Visit a local take-back location: Many local pharmacies and police departments have programs that collect old and unwanted prescriptiondrugs. Call your local pharmacy or go to http://Measurabl.[employer]/3V4Sa3y to find one close to you.3.Make use of household items: Use cat litter or old coffee grounds to dispose medications if other options arenot available. Mix your drugs with these household products, seal them in an airtight container andthrow it into the garbage. Call [facility]: [phone] to be sure your drugs can be disposed of in this way. Some medicines may require a different approach.4.Never flush your medications down the toilet. IF YOU HAVE BEEN PRESCRIBED AN OPIOIDS FOR PAIN If you have been prescribed an opioid (such as hydrocodone, oxycodone or morphine), it is critical to understand the possible side effects and risks of opioid pain medications. Even when taken as directed, opioids can have several side effects including: Tolerance, meaning you might need to take more of a medication for the same pain relief. Nausea, vomiting and/or constipation. Sleepiness, dizziness, dry mouth, confusion, depression or itching. Physical dependence, meaning you have withdrawal symptoms when a medication is stopped ? this can develop within a few days. KNOW YOUR RESPONSIBILITIES It is important to know exactly how much and how often to take the opioid pain medications you are prescribed. Never take opioids in higher amounts or more often than prescribed. Do not combine opioids with alcohol or other drugs that cause drowsiness, such as benzodiazepines, also known as benzos,including diazepam and alprazolam, muscle relaxants or sleep aids. Never sell or share prescriptionopioids. This is illegal. Store opioids in a secure place and out of reach of others (including children, family, friends and visitors). The last page(s) of this document has been signed and retained as a CHART COPY Signatures Patient Education Materials First Aid: Seizures Medication Leaflets My discharge plan and instructions have been reviewed and explained to me and I,DEEDEE PARDEEP Marcela understand my current condition and have read and understand these discharge instructions. I have received a written copy of the plan/instructions. If I have questions, I am aware that I should contact my doctor. Patient/Pyridine Operator Signature: Date/Time: Relationship to Patient: Witness Name/Signature: Date/Time: [id number] Note ORIGINAL HISTORY: Headache, seizure COMPARISON: No TECHNIQUE: CT angiography of the head following uncomplicated administration of intravenous contrast, with 3D post-acquisition processing and with results displayed in source images, sagittal reconstructions through the carotid siphons, maximum intensity projections and volume rendered images. This exam was performed according to our departmental dose optimization program, and includes the following measures where applicable: automated exposure control, adjustment of the mAs and/or kVp according to patient size and/or exam, and an iterative reconstruction algorithm. FINDINGS: The internal carotid arteries and their major branches are patent without occlusion, significant stenosis or aneurysm. Major vessels of the posterior circulation are unremarkable in appearance. IMPRESSION: No large vessel occlusion. Interpreted by: Maddison Murray MD Preliminary Report By: Maddison Murray MD Electronically signed By Maddison Murray MD Dictated Date: 12/01/2023 3:56:15 PM Prelim Date: 12/01/2023 3:57:41 PM Sign Date: 12/01/2023 3:57:41 PM Ordering Provider: [facility]05-20-2024 Note ORIGINAL HISTORY: Facial droop COMPARISON: No TECHNIQUE: CT angiogram of the neck following uncomplicated administration of intravenous contrast, with 3-D post acquisition processing and with results displayed in source images, rotational reconstructions centered on the carotid bifurcations and in maximum intensity projection. Percent stenosis is calculated using NASCET criteria. This exam was performed according to our departmental dose optimization program, and includes the following measures where applicable: automated exposure control, adjustment of the mAs and/or kVp according to patient size and/or exam, and an iterative reconstruction algorithm. FINDINGS: There are mild atherosclerotic changes to the right distal common and proximal internal carotid artery, mainly noncalcified plaque. There is no hemodynamically significant stenosis of the right internal carotid artery. The left common carotid artery in its major branches are patent without occlusion or significant stenosis. The right vertebral arteries patent. Both vertebral arteries are visualized from origin through skull base. IMPRESSION: No hemodynamically significant stenosis of either internal carotid artery. Interpreted by: Maddison Murray MD Preliminary Report By: Maddison Murray MD Electronically signed By Maddison Murray MD Dictated Date: 12/01/2023 3:44:52 PM Prelim Date: 12/01/2023 3:53:24 PM Sign Date: 12/01/2023 3:53:24 PM Ordering Provider: [facility]05-20-2024 Note ORIGINAL EXAMINATION: CT OF THE HEAD WITHOUT CONTRAST 12/01/2023 2:50 pm TECHNIQUE: CT of the head was performed without the administration of intravenous contrast. Automated exposure control, iterative reconstruction, and/or weight based adjustment of the mA/kV was utilized to reduce the radiation dose to as low as reasonably achievable. COMPARISON: 10/24/2006 HISTORY: ORDERING SYSTEM PROVIDED HISTORY: Reason for Exam: Seizures, waxing/waning facial droop FINDINGS: BRAIN/VENTRICLES: There is no acute intracranial hemorrhage, mass effect or midline shift. No abnormal extra-axial fluid collection. There is a new compared to the prior study but chronic 1.2 cm right basal ganglion lacunar infarct. The medeiros-white differentiation is maintained without evidence of an acute infarct. There is no evidence of hydrocephalus. ORBITS: The visualized portion of the orbits demonstrate no acute abnormality. SINUSES: The visualized paranasal sinuses and mastoid air cells demonstrate no acute abnormality. SOFT TISSUES/SKULL: No acute abnormality of the visualized skull or soft tissues. IMPRESSION: No acute intracranial abnormality. 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 Interpreted by: Neil Cisneros MD Preliminary Report By: Neil Cisneros MD Electronically signed By Neil Cisneros MD Dictated Date: 12/01/2023 2:57:43 PM Prelim Date: 12/01/2023 2:59:03 PM Sign Date: 12/01/2023 2:59:03 PM Ordering Provider: [facility]05-20-2024 Evaluation + Plan note Diagnostic Tests Pending * Urinalysis w/ C&S if Indicated 12/01/23 [facility] 05-20-2024 Note ORIGINAL EXAMINATION: ONE XRAY VIEW OF THE CHEST 12/01/2023 1:16 pm COMPARISON: None. HISTORY: ORDERING SYSTEM PROVIDED HISTORY: Reason for Exam: Seizures FINDINGS: The lungs are without acute focal process. There is no effusion or pneumothorax. The cardiomediastinal silhouette is without acute process. The osseous structures are without acute process. IMPRESSION: No acute process. Interpreted by: Sandeep Oliveira DO Preliminary Report By: Sandeep Oliveira DO Electronically signed By Sandeep Oliveira DO Dictated Date: 12/01/2023 1:17:52 PM Prelim Date: 12/01/2023 1:18:39 PM Sign Date: 12/01/2023 1:18:39 PM Ordering Provider: [facility]05-20-2024 NoteSINUS TACHYCARDIA INFERIOR INFARCT, OLD PROLONGED QT INTERVAL Electronic Signature: SARWAT FONTANEZ MD 12/01/2023 13:08:50[facility] 01-12-2024 NoteHNO ID: [id number] Author: ANN JONES APRN.PURSE SEINING HAND Service: ? Author Type: Nurse Practitioner Type: Progress Notes Filed: 07/25/2023 14:33 Note Text: [facility] Patient Name: Pardeep Mark Date of : 1965 ESTABLISHED EPILEPSY CLINIC NOTE 07/25/2023 1:00 PM Reason for Visit: Seizures Clinical Summary: Ms. Mark is a 58 year old right-handed female seen in [facility]. We had a visit using: Univa I received consent from the patient to perform the visit using this platform. There is no one accompanying the patient during today's visit. Classification Summary HISTORY OF PRESENT ILLNESS Handedness: right-handed Age of onset: 30 years Seizure History and Evolution 57 year old woman presents with recurrent events. History is summarized as follows: - At 30 years of age, she had episodes of losing speech, slurring words, feels out of it, and exhausted afterward with UI and BI. She would also bite the middle of her tongue and bleed from it. She also recalls an aura of an unpleasant smell. - She saw a neurologist in [place] and did an 8-hour video EEG at [facility] that she reports captured an episode. The test was cut short following the captured event and started on carbamazepine for it. - Sometime later around age [age] years, she was evaluated at [facility] with an EMU that did not capture the events. She was told that the EEG did not show any epilepsy related findings and continued CBZ. 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 - She took CBZ for 20 years until about two years ago due to frequent supratherapeutic CBZ levels, her PCP decided to trial without medication. It was weaned off over one year and has been off CBZ for the last year. - In Fall of 2020, she was admitted for possible overdose on pain medications and Benadryl. The possibility of a suicidal attempt was also entertained. However, the patient denied this and reports taking medications by mistake. She was told at the time that she has a history of chronic TIA due to findings on MRI brain. - On 07/14/22 she was found down by her neighbor around 7 am. She dislocated her right shoulder and injured her right wrist requiring a fasciotomy. She has no recollection of the whole event. Apparently, she had woken up and checked her Facebook. She then took the puppy for a walk and fell in the garage from about 3-4 am until she was found at 7 am. She was taken to [place] and then transferred to [facility] on 07/15/22. - She was readmitted for cellulitis from 07/24/22-08/08/22 and had a second event in the hospital diagnosed as a seizure and started on LEV. - The third admission was 08/14/22-08/15/22 for swelling without incident. - The fourth admission was 10/05-10/14 when she had the third event. Pseudoseizures were entertained as a possibility. - Then around October 20, she had the fourth event followed by a fifth event at her grandson's birthday republican. - The sixth one was at [facility] ED. Her daughter had a video of the event that I was able to see. She appeared unresponsive and shaking. - The seventh one was at the psychiatric hospital where she was admitted for depression and possible withdrawal from buprenorphine. She was on pain medications for a long time. 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 Since starting Keppra, episodes have continued and agreed that it was not helping. She is not driving now and her main goal is to return to driving. She reports a history of PTSD. She had a divorce about three years ago. Interval Seizure History Patient presents for follow up regarding seizures. She is a patient of Dr. Carol Gamez, seen by him for the initial visit on 11/11/2022. At that visit, plan was for EMU admission for seizure characterization and to continue LEV 750 mg BID. She was admitted to [facility] (life flighted there from local hospital) on 05/08/2023. Per discharge summary, Per EMS, she had three episodes of eyelid fluttering with generalized twitching while en route, which they treated with 2 mg ativan. Does not appear to have been loaded with Keppra at OSH per records we have. Loaded with 4500 mg keppra. In the ED at [facility], NIHSS = 10. CTH -possible left frontal hypodensity. CTP unremarkable. Her work up included a CTH: small hypodensity in the lateral L frontal lobe (infarct vs volume averaging), CTA brain/neck: reported questionable left M2 occlusion (thought to not be present on review), CTP within normal limits, MRI brain: no acute intracranial abnormality or evidence of infarct, chronic infarct in the right basal ganglia, While she was inpatient, had concern regarding multiple seizure-like episodes of unresponsiveness and eyelid flutte (more content not included)...[facility]10-31-2023 History of Present illness Narrative* Tal Arce - 05/13/2023 4:20 PM EDT Images from the original note were not included. [facility] ([facility] Note: Bedside Delivery Documentation The following prescription(s) were delivered to the patient's bedside. [facility] ([place]) [phone] [facility] [phone] [facility] Bedside Delivery [phone] [facility] [phone] [facility] Bedside Delivery [phone] [facility] [phone] [facility] Bedside Delivery [phone] [place] [phone] [place] [phone] * Oli Mitchell [facility] - 05/13/2023 2:16 PM EDT Images from the original note were not included. [facility] Note: Non-Verbal Med Rec [facility] received the following discharge prescription(s): Total cost is $2.11. I have reviewed the Discharge Rx Reconciliation Report. The discharge prescription(s) will be delivered to the patient on 05/13/2023. Oli Mitchell [facility] ([place]) [phone] [facility] [phone] [facility] Bedside Delivery [phone] [facility] [phone] [facility] Bedside Delivery [phone] [place] [phone] [facility] Bedside Delivery [phone] [place] [phone] [place] [phone] * Kathy Garcia RN - 05/13/2023 12:22 PM EDT Care Management Discharge Note Selected Continued Care - Admitted Since 05/08/2023 No services have been selected for the patient. Checked Aidin and no accepting [facility] agencies. Team notified. Per PT pt progressing well and should be ok to discharge to home. Met with pt @ bedside and informed no accepting HHC agencies. Pt states she still wants to discharge to home. States she has been doing well with therapies and feels she will be safe at home without HHC. Says has lived in her accessible [facility] independently x 20 years. Dtr lives 10 min away and does not work. Dtr will asst with meals and any needs. Transportation home arranged by SARAH. No other dc needs identified at this time. Patient medically stable for discharge per physician/medical team. Patient/Pyridine Operator remain inagreement with the discharge plan. Kathy Garcia RN, BSN Clinical Process Line Operator [phone] *Please note that I am a float case resource manager and that I may not cover the same service everyday. Please call the main case management office at for up to date coverage. * Kathy Garcia RN - 05/13/2023 10:30 AM EDT Checked Aidin and NO accepting [facility] agencies. Updated clinical info uploaded in Aidin including therapy note. Messages 2 [facility] agencies that did not repond before timeline ended and requested decision. Timeline extended until 11:30am. Kathy Garcia RN, BSN Clinical Process Line Operator [phone] *Please note that I am a float case resource manager and that I may not cover the same service everyday. Please call the main case management office at for up to date coverage. * Kathy Aguilar APRN-PURSE SEINING HAND - 05/13/2023 9:36 AM EDT [facility] Addiction Medicine Consult Service Daily Progress Note Patient: Pardeep Mark, 1965, IMPRESSION / PLAN 58 y.o. female with history of PMH significant for reported history of seizures, sarcoma s/p L AKA,mood disorder, opioid use disorder on suboxone, hypertension, prior right basal ganglia stroke, whopresents with right facial droop, hemiparesis, decreased sensation, left visual field cut and dysarthria. She is seen today in consultation for evaluation of Opioid Use Disorder. ICD-10-CM 1. Cerebrovascular accident (CVA), unspecified mechanism I63.9 2. Right sided weakness R53.1 3. Transient alteration of awareness R40.4 Opioid Use Disorder -- Current MAT medication and dose: Suboxone 8 mg b.i.d. -- giving sublocade 300mg/q28d this am Plan discussed with my attending physician and all were in agreement. Plan of Care Discussed with Patient and the following actions were reviewed: Continue plan of care as discussed and documented above. Patient verbalized agreement with plan or modifications to plan. Please call 1-2 days prior to discharge so that follow-up and medication can be arranged. INTERVAL HISTORY / SUBJECTIVE Wants sublocade injection and will get her next months that is already at her OP clinic. OBJECTIVE Temp 98.1 F (36.7 C) Pulse 88 Resp 16 BP (!) 134/93 SaO2 95 % Weight 90.7 kg (200 lb) PHYSICAL EXAM Gen: A, A, NAD Eyes: PERRL, conjunctiva normal ENT: MMM, no hoarseness Cardio: Pulse regular Resp: Normal effort Psych: Appropriate affect and cognition Neuro: A/Ox4, no tremor or asterixis DATA REVIEW WBC/Hgb/Hct/Plts: 11.49/13.6/41.2/257 (05/13 228) Body mass index is 35.43 kg/m . I have reviewed previous notes and images, labs in [facility] with significant findings stated above. FLEX Godfrey [facility] Addiction Medicine provider can be found on [employer] under *[facility] Consult Auto [facility] Total time for visit, including chart review, visit time with patient, collaboration with consulting provider(s)/care team, ordering, and documentation, was 25 minutes. * LAW Post - 05/12/2023 2:14 PM EDT CM met with patient at bedside. Current recommendation has changed from SNF to Home with [facility]. Patient in agreement with current recommendation. CM uploaded clinical to [facility] for [facility] Agencies to review. MARLIN Post, LAW Process Line Operator * Michaelyoana Urbina, PT - 05/12/2023 1:01 PM EDT Acute Physical Therapy Treatment Prior to Admission [facility] score(s): PRIOR LEVEL AM-PAC Mobility Raw Score: 18 PRIOR LEVEL AM-PAC Activity Raw Score: 24 Current AM-PAC score(s): CURRENT AM-PAC Mobility Raw Score: 16 Based on the above AM-PAC score(s) and PT clinical judgment, patient is a good candidate for discharge to Home with Home Health Barriers to discharge home: Patient needs assistance with functional mobility Mobility equipment available at home: scooter, axillary crutches, manual wheelchair ADL equipment available at home: shower chair Equipment needed for discharge: none Current therapy frequency recommendation in acute: Therapy Frequency: 1 time a week Activity Recommendations for outside of rehab session: 1 person stand-pivot transfer to the chair, wheelchair, bedside commode Precautions and Weightbearing Status: Existing Precautions/Restrictions: fall No critical lines at this time Patient Safety Communication Prior to Visit: Nursing Subjective: Pt is agreeable to PT session. She reports most of her symptoms have resolved except for the facialdroop on her right side. She prefers to discharge home versus a rehab facility. She states she has a handicap accessible condo. She lives alone but reports her daughter lives approximately 10 minutesaway and will be able to help get her settled in. Pain: General Pain Documentation (Adult, OB, Peds) Presence of Pain: denies pain/discomfort Presence of Pain Score (Auto-calculated): 0 Objective/Observation: O2 Device: room air Cognition Overall Cognitive Status: Within Functional Limits Arousal/Alertness: Appropriate responses to stimuli Orientation Level: Oriented X4 Extremity Assessments: See PT Evaluation flowsheet for Extremity Measurement updates. Balance: Sitting Balance Static Sitting-Level of Assistance: Independent Dynamic Sitting-Level of Assistance: Modified independent Standing Balance Static Standing-Level of Assistance: Supervision Dynamic Standing-Level of Assistance: Supervision Standing-Balance Support: Gait belt Mobility Assessment/Intervention: Supine to Sit Mobility [place] Level: Supine->Sit: independent Bed Features/Set-up: Supine->Sit: Flat Sit to Supine Mobility [place] Level: Sit->Supine: independent Bed Features/Set-up: Sit->Supine: Flat Transfer Assessment/Intervention: Sit to Stand Transfer [place] Level: Sit->Stand: supervision Assistive Device: Sit->Stand: gait belt Skilled Rationale: Verbal cues, Sequencing, Technique of activity Skilled Intervention/Details: Sit->Stand: x 1 from the chair and x 1 from the wheelchair Stand to Sit Transfer [place] Level: Stand->Sit: supervision Assistive Device: Stand->Sit: gait belt Skilled Rationale: Verbal cues, Sequencing, Technique of activity Bed-Chair Transfer [place] Level: Bed<->Chair: supervision Assistive Device: Bed<->Chair: gait belt Skilled Rationale: Verbal cues, Sequencing, Facilitate anterior shift, Technique of activity Skilled Intervention/Details: Bed<->Chair: Pt performed a modified stand-pivot transfer from the chair to the wheelchair and the wheelchair to the EOB. Supervision for general safety awareness Gait/Functional Mobility Assessment/Intervention: Wheelchair Assessment Patient currently uses wheelchair?: Yes Wheelchair Type: Manual Propulsion Strategy: Bilateral Assistance Level: (modified independent) Distance Traveled: 500 Maneuverability: Maneuvers all environments appropriately Skilled Intervention/Details - Wheelchair: Pt reported mild fatigue at the end of wheelchair manueverability. Outcome Score(s): CURRENT [facility] Basic Mobility Inpatient Short Form Turning over in bed: 4 - No Assistance Sitting/standing from chair: 3 - A Little Assistance Moving from lying on back to sittin - No Assistance Moving to and from bed to chair: 3 - A Little Assistance Walk in hospital room: 1 - Total Assistance Climbing 3-5 steps with a railin - Total Assistance CURRENT [facility] Mobility Raw Score: 16 CURRENT [facility] Mobility Functional Limitation/Modifier: 54.16% Currently Impaired in Basic Mobility- CK Assessment & Plan: Pt is making good progress towards their established goals. The pt was able to progress independence with bed mobility, transfers, and wheelchair mobility. Pt is primarily limited by pain. Continued skilled PT recommended to address their impairments and progress towards their functional goals per pt tolerance. Patient Instruction/Education this session: Role of PT Plan for next session: Continue to progress OOB activity per pt tolerance Acute PT Goals Plan of Care by Michael Urbina PT at 05/12/2023 1:01 PM Version 1 of 1 Problem: PT - Transfers Goal: Supine <-> Sit Description: Pt will perform bed mobility with flat bed & no rail with standby assistance in order to improve functional mobility and safety. Outcome: Met This Shift Goal: Sit <-> Stand Description: Pt will perform sit to/from stand transfers with standby assistance with least restrictive device in order to improve functional mobility and safety. Outcome: Met This Shift Goal: Stand-Pivot Description: Pt will perform stand/pivot transfer to/from bed/chair/commode with standby assistancewith least restrictive device in order to improve functional mobility and safety. Outcome: Met This Shift Problem: PT - Mobility Goal: Wheelchair Management Description: Pt will propel wheelchair 1000 feet with modified independence for improved safety andfunctional mobility at next level of care. Outcome: Ongoing PT treatment consisted of the following to progress towards the above goal(s): PT Evaluation and Treatment Time Therapeutic Activity Time Entry: 24 Treating Therapist: Michael Urbina PT Additional Details: PT Co-Eval/Treatment Information Co-evaluation/co-treatment performed?: No simultaneous skilled care performed PPE used during patient interaction: facemask, gloves Patient location at end of session: bed with head of bed elevated Alarms on at end of session: Needs in reach. Time In: 1301 Time Out: 1327 Total Visit Time: 26 minutes Total Treatment Time (skilled, billable minutes): 24 minutes Upon discontinuation of Acute Care Physical Therapy Services or patient discharge from the hospitalthis note represents the current Physical Therapy Discharge Summary. * Daria Coates OT - 05/12/2023 11:48 AM EDT Acute Occupational Therapy Treatment Prior to Admission AM-PAC Score: PRIOR LEVEL AM-PAC Activity Raw Score: 24 PRIOR LEVEL AM-PAC Mobility Raw Score: 18 Current AM-PAC score(s): CURRENT AM-PAC Activity Raw Score: 16 Based on the above AM-PAC score(s), and OT clinical judgment, discharge destination recommendation is: Long Term Facility Barriers to discharge home: Patient needs assistance with functional mobility, Patient needs assistance with ADLs, Patient needs assistance with IADLs (see note below) Supporting Factors (would benefit from skilled therapy services): Patient status is anticipated to be appropriate to tolerate inpatient rehab therapy requirements at time of discharge from acute care, Impaired functional status, Decreased strength, Impaired balance, Decreased endurance, Impaired self-care abilities, Assistance needed with functional mobility, Fall risk Mobility equipment available at home: scooter, axillary crutches, manual wheelchair ADL equipment available at home: shower chair Equipment recommendations for discharge: to be determined Current therapy frequency recommendation(s) in acute: 5 times a week Precautions and Weightbearing Status: OT Existing Precautions/Restrictions: fall No critical lines at this time Patient Safety Communication Prior to Visit: Nursing Subjective: I can get to the chair pretty much by myself, I am getting stronger Pain: General Pain Documentation (Adult, OB, Peds) Presence of Pain: denies pain/discomfort Presence of Pain Score (Auto-calculated): 0 Objective/Observation: Vitals/Vitals Responses to Treatment: Vitals during therapy session were are follows: VSS with session. No overt signs or symptoms of distress O2 Device: room air Cognition Overall Cognitive Status: Within Functional Limits Arousal/Alertness: Appropriate responses to stimuli Orientation Level: Oriented X4 Following Commands: Follows one step commands without difficulty Safety Judgment: Decreased awareness of need for assistance, Decreased awareness of need for safety Deficits: Fully aware of deficits Attention Span: Attends with cues to redirect Memory: Appears intact Cognition Comments: redirection needs with very verbose speech. Voices awareness of strength issuesyet mild impulsivity with transfers ADL Assessment/Intervention: ADLs: Eating Assistance: Grooming Assistance: Set up supervision Grooming Location: seated in chair Grooming Deficit: Activity tolerance, Generalized weakness Grooming Skilled Rationale (Verbal/Tactile/Visual/Demonstration): Setup, Supervision Grooming Intervention/Details: completed brushing teeth, hair and washing face seated. Bathing Assistance: UE Dressing Assistance: LE Dressing Assistance: Minimal LE Dressing Location: seated in chair LE Dressing Deficit: Activity tolerance, Generalized weakness, Balance LE Dressing Skilled Rationale (Verbal/Tactile/Visual/Demonstration): Technique of activity, Setup, Supervision, Facilitate postural control, Facilitate positioning LE Dressing Intervention/Details: donned underpants with primarily threading RLE. Increased balanceassist in stand with decline for ww as UE support while fully pulling over hips. Toilet Assistance: Extremity Assessments: See OT Evaluation flowsheet for Extremity Measurement updates. Balance: Sitting Balance Static Sitting-Level of Assistance: Standby Dynamic Sitting-Level of Assistance: Contact guard Skilled Rationale: Positioning, Hand placement, Verbal cues, Technique of activity, Cues for increased safety Sitting Balance Skilled Intervention/Details: min impulsivity at EOB for SPT. Cues for overall safeEOB positioning and RLE positioning before trial Standing Balance Static Standing-Level of Assistance: Minimum assistance Dynamic Standing-Level of Assistance: Minimum assistance, Moderate assistance Standing-Balance Support: Gait belt Skilled Rationale: Positioning, Hand placement, Verbal cues, Technique of activity, Cues for increased safety Skin and Edema: Mobility Assessment/Intervention: Supine to Sit Mobility [place] Level: Supine->Sit: stand-by assist Bed Features/Set-up: Supine->Sit: Head of bed elevated Skilled Rationale: Hand placement, Verbal cues, Technique of activity Skilled Intervention/Details: Supine->Sit: transition into long sit before transfer to EOB Transfer Assessment/Intervention: Sit to Stand Transfer [place] Level: Sit->Stand: minimum assist (75% patient effort) Assistive Device: Sit->Stand: gait belt Skilled Rationale: Positioning, Hand placement, Verbal cues, Full extension to upright positioning/posture, Technique of activity, Cues for increased safety Skilled Intervention/Details: Sit->Stand: decreased full upright posture with hx of modified stand pivot to w/c and limited overall upright stand needs per pt Stand to Sit Transfer [place] Level: Stand->Sit: minimum assist (75% patient effort) Assistive Device: Stand->Sit: gait belt, armed chair Skilled Rationale: Hand placement, Verbal cues, Controlled descent for sitting, Technique of activity, Cues for increased safety Skilled Intervention/Details: Stand->Sit: Promoted UE use for arm rests for controlled descent. Fair carryover with tech Bed-Chair Transfer [place] Level: Bed<->Chair: (min-mod) Assistive Device: Bed<->Chair: gait belt, armed chair Skilled Rationale: Positioning, Hand placement, Verbal cues, Technique of activity, Cues for increased safety Skilled Intervention/Details: Bed<->Chair: modifited stand pivot to chair placed to Rt of pt.Pt only completed SPT at home to w/c and or scooter. MIn cues for pace and safety Functional Mobility: Outcome Score(s): CURRENT AM-[facility] Daily Activity Inpatient Short Form Putting on/Taking Off Lower Body Clothin - A Lot of Assistance Bathin - A Lot of Assistance Toiletin - A Lot of Assistance Putting on/Taking Off Upper Body Clothin - A Little Assistance Groomin - A Little Assistance Eatin - No Assistance CURRENT AM-PAC Activity Raw Score: 16 CURRENT AM-PAC Activity Functional Limitation/Modifier: 53.32% Currently Impaired in Daily Activity- CK Interventions: Assessment & Plan: Pt continues to benefit from skilled OT services with admission. Pt very eager for OOB. Per pt, only completes SPT from various surfaces with primary use of w/c for mobility. Rt side weakness presentwith safety cues needed today for mobility. Addressed stand trials, bed mobility and LE adls with session. Pt currently demonstrates below functional baseline performance skills for OOB adls with continued skilled OT services recommended with admission. Pt would benefit from continued skilled OT services to address impairments to increase overall safety and independence with adls/iadls. Patient Instruction/Education this session: Plan for next session: stand tolerance/sink level tasks, UE strenghening Acute OT Goals Plan of Care by Daria Coates OT at 05/12/2023 10:35 AM Version 1 of 1 Problem: OT - ADLs Goal: Grooming Description: Pt will complete grooming Edge of bed with modified independence using RUE as assist 100% of time for improved ability to safely complete ADLs. Outcome: Ongoing Problem: OT - Transfers Goal: Transfers Toilet/Bedside Commode Description: Pt will transfer to/from toilet/BSC with minimal assistance and moderate assistance x1for improved ability to safely complete ADLs. Outcome: Ongoing OT treatment consisted of the following to work and progress towards the above goal(s): OT Evaluation and Treatment Time Self Care/Home Management (ADLs) Time Entry: 15 Therapeutic Activity Time Entry: 12 Treating Therapist: Daria Coates OT I AM A FLOAT, PLEASE PAGE YOUR FLOORS OT REGARDING THIS PATIENT Additional Details: OT Co-Eval/Treatment Information Co-evaluation/co-treatment performed?: No simultaneous skilled care performed PPE used during patient interaction: facemask, gloves Patient location at end of session: chair, RN aware Alarms on at end of session: none Needs in reach. Time In: 829 Time Out: 856 Total Visit Time: 27 minutes Total Treatment Time (skilled, billable minutes): 27 minutes Upon discontinuation of Acute Care Occupational Therapy Services or patient discharge from the hospital this note represents the current Occupational Therapy Discharge Summary. * ESTRADA Reeder - 05/11/2023 4:11 PM EDT Reason for Consult: Discharge Coordination Consulted By: Medical team Level(s) of Care Discussed: SNF Patient and/or Pyridine Operator's Preferred Geographic Area for Discharge: [place] Patient and/or Pyridine Operator's Preference for Providers to Include? 1.[place] area Patient and/or Pyridine Operator's Preference for Providers to Exclude? 1.[place] Patient and/or Pyridine Operator's Discussion: SW met with patient at bedside today to discuss discharge options, including medical team recommendation for SNF. Patient is alert, oriented x4 today. Patient requested to update her HCPOA paperwork;SW reviewed paperwork with patient & new HCPOA paperwork forwarded to medical records (for additional details refer to SARAH note 05/02 @ 8382). She requests to include her daughter, Alison on discharge planning discussion. SW phoned pt's daughter & placed on speaker phone. SNF referrals sent; await responses. Discussed referral process with the patient and/or sales representative jewelry. Patient and pt's daughter are agreeable to have placement referral initiated. Abigail SUTHERLAND Medical Social Work Please note that I am a float SW and may not be covering the same unit each day. Please reach out to the floor/unit SW for additional needs/concerns. Contact info for weekend CM and SW staff (8:00am - 4:30pm): [facility]: CCM: / Gallery Host: [place]: CCM: / Gallery Host: Cricket: CCM : / Gallery Host: Hernandez/MICU/PCU Maddison: CCM: / Gallery Host: * ESRTADA Reeder - 05/11/2023 4:03 PM EDT Reason for Consult: Healthcare Power of [place] Operator (HCPOA) Consulted By: weekday SW Packet Provided: yes Questions Answered: yes Completed HCPOA Information HCPOA - Alison Colon, pt's daughter ([phone]) Alternate HCPOA #1 - Cj Mark, pt's son ([phone]) Alternate HCPOA #2 - Dr. Darinel Mark, pt's son ([phone]) Original has been provided to patient. Additional copies has been provided to patient. Copy has been sent to [facility] for inclusion in IHIS. Information has been updated in demographics. Abigail SUTHERLAND Medical Social Work * Judith Hale, PT - 05/10/2023 2:05 PM EDT Acute Physical Therapy Treatment Prior to Admission AMPAC score(s): PRIOR LEVEL AM-PAC Mobility Raw Score: 18 PRIOR LEVEL AM-PAC Activity Raw Score: 24 Current AM-PAC score(s): CURRENT AM-PAC Mobility Raw Score: 9 Based on the above AM-PAC score(s) and PT clinical judgment, patient is a good candidate for discharge to Long Term Facility Barriers to discharge home: Patient needs assistance with functional mobility Mobility equipment available at home: scooter, axillary crutches, manual wheelchair ADL equipment available at home: shower chair Equipment needed for discharge: Current therapy frequency recommendation in acute: Therapy Frequency: 5 times a week Precautions and Weightbearing Status: Existing Precautions/Restrictions: fall Patient Safety Communication Prior to Visit: Nursing Subjective: Pt was agreeable and motivated to get OOB, pt reports feeling stronger in her right UE/LE, Pt requesting to use BSC and RN requesting therapy assist/re-assess due to improving strength Pain: General Pain Documentation (Adult, OB, Peds) Presence of Pain: denies pain/discomfort Presence of Pain Score (Auto-calculated): 0 Objective/Observation: Vitals/Vitals Responses to Treatment: WFL O2 Device: room air Cognition Overall Cognitive Status: Within Functional Limits Arousal/Alertness: Appropriate responses to stimuli Orientation Level: Oriented X4 Following Commands: Follows one step commands without difficulty Cognition Comments: pt reports feeling slow in the head and requiring increased procressing time but able to follow all commands Extremity Assessments: See PT Evaluation flowsheet for Extremity Measurement updates. Skin and Edema: Balance: Sitting Balance Static Sitting-Level of Assistance: Standby Dynamic Sitting-Level of Assistance: Standby Skilled Rationale: Positioning, Sequencing, Hand placement, Verbal cues Mobility Assessment/Intervention: Supine to Sit Mobility [place] Level: Supine->Sit: moderate assist (50% patient effort) Bed Features/Set-up: Supine->Sit: Head of bed elevated, Use of bed rail Skilled Rationale: Positioning, Sequencing, Hand placement, Verbal cues Skilled Intervention/Details: Supine->Sit: increased time and step by step cues for sequencing Transfer Assessment/Intervention: Bed-Chair Transfer [place] Level: Bed<->Chair: (min/mod) Assistive Device: Bed<->Chair: gait belt Skilled Rationale: Positioning, Sequencing, Hand placement, Verbal cues Skilled Intervention/Details: Bed<->Chair: pt completed modified stand pivot transfers/scoot transfer from bed to bedside commode and bedside commode to chair with min/mod assist, cues for technique Gait/Functional Mobility Assessment/Intervention: Stairs Assessment/Intervention: Outcome Score(s): CURRENT [facility] Basic Mobility Inpatient Short Form Turning over in bed: 2 - A Lot of Assistance Sitting/standing from chair: 1 - Total Assistance Moving from lying on back to sittin - A Lot of Assistance Moving to and from bed to chair: 2 - A Lot of Assistance Walk in hospital room: 1 - Total Assistance Climbing 3-5 steps with a railin - Total Assistance CURRENT [facility] Mobility Raw Score: 9 CURRENT [facility] Mobility Functional Limitation/Modifier: 81.38% Currently Impaired in Basic Mobility- CM Interventions: Intervention 1 Intervention Name: Ther ex Sets/Reps/Duration: Pt educated in right LE/UE therex in sitting in all planes. Pt able to return proper demonstration and complete x 10-15 repetitions in all planes Assessment & Plan: Pt making good progress toward therapy goals, improving strength in right LE, improved transfers Patient Instruction/Education this session: role of PT and PT plan of care Plan for next session: Continue to progress independence with bed mobility and transfers Acute PT Goals Plan of Care by Judith Hale PT at 05/10/2023 2:04 PM Version 1 of 1 Problem: PT - Transfers Goal: Supine <-> Sit Description: Pt will perform bed mobility with flat bed & no rail with standby assistance in order to improve functional mobility and safety. Outcome: Progressing Toward Goal Goal: Sit <-> Stand Description: Pt will perform sit to/from stand transfers with standby assistance with least restrictive device in order to improve functional mobility and safety. Outcome: Progressing Toward Goal Goal: Stand-Pivot Description: Pt will perform stand/pivot transfer to/from bed/chair/commode with standby assistancewith least restrictive device in order to improve functional mobility and safety. Outcome: Progressing Toward Goal PT treatment consisted of the following to progress towards the above goal(s): PT Evaluation and Treatment Time Therapeutic Exercise Time Entry: 12 Therapeutic Activity Time Entry: 12 Treating Therapist: Judith Hale PT Additional Details: PT Co-Eval/Treatment Information Co-evaluation/co-treatment performed?: No simultaneous skilled care performed PPE used during patient interaction: facemask, gloves Patient location at end of session: chair Alarms on at end of session: RN aware Needs in reach. Time In: 1148 Time Out: 1212 Total Visit Time: 24 minutes Total Treatment Time (skilled, billable minutes): 24 minutes Upon discontinuation of Acute Care Physical Therapy Services or patient discharge from the hospitalthis note represents the current Physical Therapy Discharge Summary. * CIERRA Youngblood - 05/09/2023 1:20 PM EDT Acute Care Speech-Language Pathology Clinical Swallow Evaluation Diet recommendation: Recommended Method of Nutrition: PO Recommended Diet Grade: regular Recommended Liquid Consistency: liquid- thin (IDDSI 0) Recommended Medication Administration (as appropriate per MD): Per patient preference Swallow Strategies: Bolus volume change, Alternate solids/liquids Type of Cues/Supervision: none Assistance: independent Discharge Recommendations: Based on the below outcome measures/assessment score(s) and LEVERS LACE MACHINE OPERATOR clinicaljudgment, discharge destination recommendation is: Deferred to PT/OT recomendations related to mobility Acute LEVERS LACE MACHINE OPERATOR Outcomes Tracking Communicate basic wants and needs?: yes Demo insight/appreciation of deficits?: yes Complete basic problem solving?: yes Current therapy frequency recommendation in acute care: Swallow Therapy Frequency: 2 times a week Date of Admission: 05/08/2023 Date of Evaluation: 05/09/2023 Attending Physician: Todd Muhammad MD General Patient Information Name: Pardeep Mark Gender: female Date of : 1965 Primary Diagnosis: ICD-10-CM 1. Cerebrovascular accident (CVA), unspecified mechanism I63.9 No past medical history on file. Past Surgical History: Procedure Laterality Date REMOVAL BILIARY DUCT/GALLBLADDER CALCULI/DEBRIS PERCUTANEOUS W/ IMAGE 1997 APPENDECTOMY 1974 HYSTERECTOMY SUBTOTAL ABDOMINAL LAPAROSCOPIC Pain: General Pain Documentation (Adult, OB, Peds) Presence of Pain: complains of pain/discomfort Presence of Pain Score (Auto-calculated): 0 DVPRS (Defense and Veterans Pain Rating Scale) DVPRS: Rest: 8- severe pain DVPRS: Activity: 8- severe pain Precautions: Patient Safety Communication Prior to Visit: Nursing Lines/Tubes/Drains (Rehab Status): Telemetry Patient History Comments: Pardeep Mark is a 58 y.o. female with PMH significant for reported history of seizures, sarcoma s/p L AKA, mood disorder, opioid use disorder on suboxone, hypertension, prior right basal ganglia stroke, who presents with right facial droop, hemiparesis, decreased sensation, left visual field cut and dysarthria. LKW 05/08/23, 1300 Patient reports that she has history of grand mal and complex partial seizures reportedly captured on EEG that she thinks are 2/2 stroke. 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 Denies missing any doses. History of events is limited: patient remembers being in a garage, feeling lke she was about to have a seizure, and then has no recollection of getting to the hospital. Thinks a neighbor brought her.She feels confused. At OSH, she was seen on telestroke.NIHSS was 12. CTH negative, CTA per radiology - concern for questionable left M2 occlusion. Transferred to [facility]. Per EMS, she had three episodes of eyelid fluttering with generalized twitching while en route, which they treated with 2 mg ativan. Does not appear to have been loaded with Keppra at OSH per recordswe have. Loaded with 4500 mg keppra. In the ED at [facility], NIHSS = 10. CTH -possible left frontal hypodensity. CTP unremarkable. Relevant imaging: MRI: No acute intracranial abnormality. No evidence of acute infarct or intracranial hemorrhage. 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 Prior LEVERS LACE MACHINE OPERATOR history: none on file per EMR review Current Method of Nutrition: Route of Nutrition: PO Respiratory Status: O2 Device: nasal cannula O2 Sat (%): 97 % Resp Rate: 13 Subjective information: Pt lying in bed asleep with lights off. Pt able to awaken w verbal cues andwas agreeable to swallow eval. She reported weird swallowing sensation today, as if she was goingto choke on solid foods. She feels it has improved but is still not back to 100%/baseline. Exam limited by cognition: No Objective Evaluation: Oral Motor: Cranial Nerve Exam CN V (Trigeminal) strong equal bilateral strength of masseter and temporal muscles CN VII (Facial) unilateral or bilateral weakness of upper or lower face or both (slight R faical droop) CN IX (Glossopharyngeal) soft palate and pharynx rise symmetrically when patient says 'ahhh' CN X (Vagus) soft palate and pharynx rise symmetrically when patient says 'ahhh' CN XI (Accessory) strong and equal rotation of head CN XII (Hypoglossal) deviation of tongue from midline (Deviates slightly to L side) Vocal Quality: WDL GRBAS: A perceptual rating scale for voice parameters Rating scale of 0 to 3 0 = no impairment 1 = minimal to mild impairment 2 = moderate impairment 3 = severe impairment Subjective Voice Evaluation Grade of dysphonia (G): 0 Roughness (R): 0 Breathiness (B): 0 Asthenia (A): 0 Strain (S): 0 Positioning: Cornejo's (45-60 degrees) Anticipatory Phase: Intact Self-administers all trials without difficulty Foods and Liquids Trialed: Modality: Amount: Ice Teaspoon x2 Thin Straw x4 Dysphagia- pureed (IDDSI 4) Teaspoon x3 Regular solid Self-fed x2 Oral Phase Function Comments Oral Mucosa Intact Dentition Natural teeth Labial Closure Intact Mastication Intact Oral Stasis Absent Cough before the swallow Absent Oral Phase Summary: Oral phase appears WFL. Functional mastication, subjectively timely swallow initiation, no visible residue. Pharyngeal Phase Function Comments Perceived Swallow Present Cough Response No Throat Clear No Subjective Complaint of Residue Present (reports tight feeling in throat, with occasional chokingsensation wtih solids. Reports improvement relative to yesterday.) Pharyngeal Phase Summary: No obvious s/s aspiration noted at bedside. Resp status and vocal qualitystable Strategies Trialed: Strategy: Effectiveness: Liquid wash Subjectively improved bolus clearance, per Pt report [place] Swallow Screen: (administered by: LEVERS LACE MACHINE OPERATOR) [place] Swallow Screening Screening Exclusion Criteria: none, continue with [place] Swallow Screening Cognitive Screen: Orientation: able to give name, able to name place, able to name current year Cognitive Screen: Command Following: able to open mouth, able to stick out tongue, able to smile Oral Motor Function : able to close lips, able to move tongue to corners of lips, able to pucker lips and smile, able to stick out tongue past lips 3 oz. Water Swallow Challenge : non-consecutive sips [place] Swallow Screening Result: failed=NPO Voice and Swallow Outcomes: Functional Oral Intake Scale: Level 7 - Total oral intake with no restrictions Clinical Impression: Pardeep Mark presents with suspected functional oropharyngeal swallow vs possible pharyngoesophageal dysphagia, s/p seizure activity, possible stroke vs Sophia's paralysis. Pt demonstrates functional oral bolus acceptance and manipulation despite subtle ongoing R facial droop. She demonstrated no obvious clinical indicators of airway penetration/aspiration but reports tightness in throat, which sometimes causes sensation of having to choke while eating solids. No choking or other difficulty observed at bedside. Recommend initiate oral diet with general safe swallow precautions and monitor for any changes/decline in swallowing. LEVERS LACE MACHINE OPERATOR will follow-up to assess tolerance of diet. Plan for next session: assess tolerance of current diet, confirm appropriate texture, identify any ongoing sensation of choking or tightness or esophageal symptoms to determine need for instrumental.Speech/language/cog eval pending as well Patient Instruction/Education this session: Reviewed results of swallow eval, diet recs, suggestionto self-select soft items, POC including option of instrumental swallow study if indicated. Acute LEVERS LACE MACHINE OPERATOR Goals Plan of Care by CIERRA Youngblood at 05/09/2023 1:20 PM Version 1 of 1 Problem: LEVERS LACE MACHINE OPERATOR - Dysphagia Goal: PO Trial 1 Description: Patient will complete trials of any consistency independently maintaining adequate levels of alertness and demonstrating timely oral manipulation and bolus transit for consistent swallowresponse without overt signs/symptoms of aspiration, across 1 session(s) to assess for resolution of swallowing complaints and to determine whether instrumental swallow assessment is indicated. Outcome: Ongoing Speech Language Pathologist: CIERRA Youngblood Time In: 919 Time Out: 934 Total Visit Time: 15 minutes Total Treatment Time (skilled, billable minutes): 15 minutes Non-billable assistance during session: n/a Assisted by during session: n/a PPE used during patient interaction: facemask, gloves Patient location/status at end of session: bed with head of bed elevated Patient alarms at end of session: none altered Needs in reach. LEVERS LACE MACHINE OPERATOR Evaluation and Treatment Time Clinical Swallow Eval Time Entry: 15 Upon discontinuation of Acute Care Speech Therapy Services or patient discharge from the hospital this note represents the current Speech Therapy Discharge Summary * LAW Post - 05/09/2023 11:32 AM EDT Focused Assessment for Discharge Planning Patient is here for Stroke Workup. Initial Discharge Planning Anticipated discharge disposition: Inpatient Rehab Facility Transportation Available for Discharge: Ambulance, Family or Friend Anticipated DME: none Anticipated Services at Discharge: Physical Therapy, Occupational Therapy, Outpatient follow up Patient Assessment Completed: Focused Advanced Care Planning Assessment Advanced Care Planning Has the patient completed Advance Directives?: Completed, Not Available in Medical Record Copy of Advance Directives was requested?: Yes Advance Directives Requested From: Call dtr Legal Next of Kin: Dr Darinel Mark - Son - [phone] Alison Colon - Dtr - [phone] Cj Deedee [facility] - [phone] Financial Resources Insurance: Yes Prescription Coverage: Yes Resources Needed: No Resources Provided: Living Environment and Support System CM met with patient at bedside. Patient ambulates with Crutches, both wrist and arm. She has a manual wheelchair and motorized scooter. Patient lives alone and was driving, prior to this hospitalization. Patient is pending workup and final recommendations. Patient Resources Prior to Admission Post-acute Services: yes - TBD Community Resources: no DME: no Patient's goal for discharge is TBD. Patient's dtr to e-mail CM the HCPOA. Per HCPOA, patient's spouse is listed as HCPOA Agent. Dtr is 1st alternate. Dtr stated, the facility will do a 3 way call with ex-spouse and dtr for Health Care decision making when needed. Dtr would like a new HCPOA established, and per conversation with patient, should rquested her dtr be her HCPOA Agent. CM updated SW. MARLIN Post, TWISTER HAND Process Line Operator * Judith Hale, PT - 05/09/2023 11:14 AM EDT Acute Physical Therapy Evaluation Prior to Admission [facility] score(s): PRIOR LEVEL AM-PAC Mobility Raw Score: 18 Current AM-PAC score(s): CURRENT AM-PAC Mobility Raw Score: 8 Based on the above AM-PAC score(s) and PT clinical judgment, patient is a good candidate for discharge to Long Term Facility Barriers to discharge home: Patient needs assistance with functional mobility Mobility equipment available at home: scooter, axillary crutches, manual wheelchair ADL equipment available at home: shower chair Equipment needed for discharge: Current therapy frequency recommendation in acute: Therapy Frequency: 5 times a week Activity Recommendations for outside of rehab session: allyn lift Precautions and Weightbearing Status: Existing Precautions/Restrictions: fall Telemetry Patient Safety Communication Prior to Visit: Nursing Subjective: pt was agreeable to participate, motivated to get better Pain: General Pain Documentation (Adult, OB, Peds) Presence of Pain: complains of pain/discomfort Pain Location: headache DVPRS (Defense and Veterans Pain Rating Scale) DVPRS: Rest: 8- severe pain DVPRS: Activity: 8- severe pain Home Setting Residence: [facility] Lives With: alone First floor setup: bedroom (roll in shower, handicap accesible) Number of stairs to enter home: ramp Number of stairs in home: 0 Mobility Equipment Available: scooter, axillary crutches, manual wheelchair ADL Equipment Available: shower chair Previous Level of Function Prior level ADL Overview: Independent with all ADLs Dominant Hand: Left Bed Mobility/Transfers: independent Ambulation Skills: (does not ambulate, pivot transfers) Assistive Device: wheelchair Prior Level of Function Details: manual wheelchair in household, electric scooter in community Objective/Observation: Vitals/Vitals Responses to Treatment: WFL O2 Device: room air Cognition Overall Cognitive Status: Within Functional Limits Arousal/Alertness: Appropriate responses to stimuli Orientation Level: Oriented to person, Oriented to place, Oriented to time Cognition Comments: pt reports feeling confused Vision Screen Currently wearing corrective lenses: Yes Subjective Patient Complaints: Double vision Clinical Observations: closing right eye, reports improvement in double vision Speech Speech: slurred speech (mild) Hearing Hearing: no gross deficits noted Extremity Assessments: RLE Assessment Right LE Assessment Details: trace to 2-/5 grossly, slightly inconsistent testing LLE Assessment Left LE Assessment Details: not tested, hip disarticulation Sensation Overall Sensation: Impaired Sensation Comments: impaired right LE, positive pain withdrawal Proprioception Proprioception: shows deficit (right LE) Skin Integrity Skin Integrity Description: WFL Edema Edema: none noted Mobility Assessment: Supine to Sit Mobility [place] Level: Supine->Sit: maximum assist (25% patient effort) Bed Features/Set-up: Supine->Sit: Head of bed elevated, Use of bed rail Skilled Rationale: Positioning, Hand placement, Sequencing, Verbal cues Skilled Intervention/Details: Supine->Sit: increased time/cues Sit to Supine Mobility [place] Level: Sit->Supine: maximum assist (25% patient effort) Bed Features/Set-up: Sit->Supine: Flat, Use of bed rail Skilled Rationale: Positioning, Sequencing, Hand placement, Verbal cues Balance: Sitting Balance Static Sitting-Level of Assistance: Supervision Dynamic Sitting-Level of Assistance: Standby Skilled Rationale: Positioning, Sequencing, Hand placement, Verbal cues Standing Balance Standing Balance Skilled Intervention/Details: unable to achieve stand Transfer Assessment: Gait/Functional Mobility: Stairs: Outcome Score(s): CURRENT [facility] Basic Mobility Inpatient Short Form Turning over in bed: 2 - A Lot of Assistance Sitting/standing from chair: 1 - Total Assistance Moving from lying on back to sittin - A Lot of Assistance Moving to and from bed to chair: 1 - Total Assistance Walk in hospital room: 1 - Total Assistance Climbing 3-5 steps with a railin - Total Assistance CURRENT [facility] Mobility Raw Score: 8 CURRENT [facility] Mobility Functional Limitation/Modifier: 86.62% Currently Impaired in Basic Mobility- CM Interventions: Assessment & Plan: Patient was admitted for Cerebrovascular accident (CVA), unspecified mechanism [I63.9] and seen fortherapy evaluation related to deficits in functional mobility. Exam findings include impairments in: Strength, Balance, Transfers, Gait/Locomotion, Motor control,Aerobic capacity/endurance, Neuromotor development and sensory integration. These impairments contribute to functional limitations including Ambulation/locomotion pain, Decreased ambulation distance/endurance, Difficulty stair climbing/descent, Increased fall risk, Limited standing tolerance, Limited sitting tolerance, Difficulty with bed mobility, Difficulty with transfers, Decreased functional mobility. Current clinical presentation is Evolving - changing/inconsistent clinical characteristics (Moderate). Patient history factors impacting Plan Of Care include . Patient will benefit from skilled physical therapy to address these impairments, functional limitations, and participation restrictions andhas good rehab potential to achieve therapy goals. Planned Therapy Interventions: balance training, endurance, postural re- education, strengthening, transfer training Patient Instruction/Education this session: Patient was provided stroke specific education on Discharge recommendations. Education provided in Verbal format, and demonstration of understanding with report of no further education needed. All questions answered. Plan for next session: Continue to progress standing and transfers Acute PT Goals Plan of Care by Judith Hale PT at 05/09/2023 11:14 AM Version 1 of 1 Problem: PT - Transfers Goal: Supine <-> Sit Description: Pt will perform bed mobility with flat bed & no rail with standby assistance in order to improve functional mobility and safety. Outcome: Ongoing Goal: Sit <-> Stand Description: Pt will perform sit to/from stand transfers with standby assistance with least restrictive device in order to improve functional mobility and safety. Outcome: Ongoing Goal: Stand-Pivot Description: Pt will perform stand/pivot transfer to/from bed/chair/commode with standby assistancewith least restrictive device in order to improve functional mobility and safety. Outcome: Ongoing PT treatment consisted of the following to progress towards the above goal(s): PT Evaluation and Treatment Time PT Evaluation (Moderate) Time Entry: 20 Evaluating Therapist: Judith Hale PT Additional Details: PT Co-Eval/Treatment Information Co-evaluation/co-treatment performed?: Yes, simultaneous billable skilled care was necessary due tomedical complexity and functional deficits Other discipline: OT Rationale for need to co-eval/treat: postural control Co-treatment goal focus: balance Evaluation Complexity Components History: Moderate (1-2 personal factors and/or comorbidities) Body Systems Review: Moderate (Addressing a total of 3 or more elements) Clinical Presentation: Evolving - changing/inconsistent clinical characteristics (Moderate) Clinical Decision Making: Moderate Time In: 0949 Time Out: 1009 Total Visit Time: 20 minutes Total Treatment Time (skilled, billable minutes): 20 minutes Assisted by during session: EMMIE Batista PPE used during patient interaction: facemask, gloves Patient location at end of session: bed with head of bed elevated Alarms on at end of session: bed alarm Needs in reach. Upon discontinuation of Acute Care Physical Therapy Services or patient discharge from the hospitalthis note represents the current Physical Therapy Discharge Summary. * Kelly Tillman OT - 05/09/2023 10:15 AM EDT Acute Occupational Therapy Evaluation Prior to Admission AM-PAC Score: PRIOR LEVEL AM-PAC Activity Raw Score: 24 PRIOR LEVEL AM-PAC Mobility Raw Score: 18 Current AM-PAC score(s): CURRENT AM-PAC Mobility Raw Score: 8 CURRENT AM-PAC Activity Raw Score: 12 Based on the above AM-PAC score(s) and OT clinical judgment, discharge destination recommendation is: Inpatient Rehab Facility Supporting Factors (would benefit from skilled therapy services): Patient status is anticipated to be appropriate to tolerate inpatient rehab therapy requirements at time of discharge from acute care, Impaired functional status, Decreased strength, Impaired balance, Decreased endurance, Impaired self-care abilities, Assistance needed with functional mobility, Fall risk Mobility equipment available at home: scooter, axillary crutches, manual wheelchair ADL equipment available at home: shower chair Equipment recommendations for discharge: to be determined Current therapy frequency recommendation(s) in acute: 5 times a week Precautions and Weightbearing Status:Fall OT Existing Precautions/Restrictions: fall Telemetry Patient Safety Communication Prior to Visit: Nursing Subjective: Pt agreeable to OT and reports weaker than baseline Pain: General Pain Documentation (Adult, OB, Peds) Presence of Pain: complains of pain/discomfort Pain Location: headache DVPRS (Defense and Veterans Pain Rating Scale) DVPRS: Rest: 8- severe pain DVPRS: Activity: 8- severe pain Home Setting Residence: [facility] Lives With: alone First floor setup: bedroom (roll in shower, handicap accessible) Number of stairs to enter home: ramp Number of stairs in home: 0 Mobility Equipment Available: scooter, axillary crutches, manual wheelchair ADL Equipment Available: shower chair Previous Level of Function Prior level ADL Overview: Independent with all ADLs Dominant Hand: Left Bed Mobility/Transfers: independent Ambulation Skills: (does not ambulate, pivot transfers) Assistive Device: wheelchair Prior Level of Function Details: manual wheelchair in household, electric scooter in community IADL History IADLs: independent Primary Language: Guamanian Home Management Skills: independent Medication Management: independent Meal Prep Responsibility: Primary Laundry Responsibility: Primary IADL Comments: Reports drives and uses W/C Objective/Observation: Vitals/Vitals Responses to Treatment:VSS O2 Device: room air Vision Screen Currently wearing corrective lenses: Yes Subjective Patient Complaints: Double vision Clinical Observations: (reports monocular vision when closing one eye) Speech Speech: slurred speech Hearing Hearing: no gross deficits noted Cognition Overall Cognitive Status: Within Functional Limits Arousal/Alertness: Appropriate responses to stimuli Orientation Level: Oriented to person, Oriented to place, Oriented to time Following Commands: Follows one step commands without difficulty Safety Judgment: Decreased awareness of need for safety Awareness of Errors: Good awareness of errors made Deficits: Fully aware of deficits Attention Span: Appears intact Cognition Comments: Pt reports feeling confused but able to direct care and needs ADLs Assessment: ADL Assessment: Toileting Deficit, LE Dressing Deficit, UE Dressing Deficit, Bathing Deficit Eating Assistance: Set up supervision Eating Location: bed level Grooming Assistance: Set up supervision Grooming Location: edge of bed Grooming Deficit: Balance, Increased time to complete, Activity tolerance, Manipulation of items, Opening/closing containers Grooming Skilled Rationale (Verbal/Tactile/Visual/Demonstration): Supervision, Setup, Technique of activity Bathing Assistance: Maximal UE Dressing Assistance: Moderate LE Dressing Assistance: Maximal Toilet Assistance: Total Extremity Assessments: RUE Assessment RUE Assessment: Within Functional Limits, Strength Impaired (AROM limited 0-45 degrees. AAROM WFL. Fair effort) Right UE Assessment Details: MMT 2-/5 LUE Assessment LUE Assessment: AROM WFL, Strength WFL, Tone WFL Balance: Sitting Balance Static Sitting-Level of Assistance: Supervision Dynamic Sitting-Level of Assistance: Standby Skilled Rationale: Positioning, Sequencing, Hand placement, Verbal cues, Full extension to upright positioning/posture Standing Balance Static Standing-Level of Assistance: Dependent, 2-person assist Standing Balance Skilled Intervention/Details: unable to achieve stand Neuro: Sensation Overall Sensation: Impaired Light Touch: Diminished, Right, Upper extremity Sharp/Dull: Intact Localization: Inconsistent, Right, Upper extremity Inattention/Neglect: intact Sensation Comments: Positive pain withdrawal in all extremities Proprioception Proprioception: shows deficit (RUE) Gross Coordination Gross Coordination: LUE intact, other (see comments) (RUE Fair/limited) Fine Motor Coordination Additional Documentation: Yes Fine Motor Coordination Left Hand, Finger To Nose: normal performance Right Hand, Finger To Nose: mild impairment Left Hand Thumb/Finger Opposition Skills: normal performance Right Hand Thumb/Finger Opposition Skills: mild impairment Left Hand, Manipulation of Objects: normal performance Right Hand, Manipulation of Objects: mild impairment Skin and Edema: Skin Integrity Skin Integrity Description: WFL Mobility Assessment: Supine to Sit Mobility [place] Level: Supine->Sit: maximum assist (25% patient effort) Physical Assist: Supine->Sit: (1 person) Bed Features/Set-up: Supine->Sit: Head of bed elevated, Use of bed rail Skilled Rationale: Positioning, Sequencing, Hand placement, Verbal cues, Tactile cues Skilled Intervention/Details: Supine->Sit: increased time/cues Sit to Supine Mobility [place] Level: Sit->Supine: maximum assist (25% patient effort) Physical Assist: Sit->Supine: 1 person + 1 person to manage equipment Bed Features/Set-up: Sit->Supine: Flat, Use of bed rail Skilled Rationale: Positioning, Hand placement, Verbal cues, Technique of activity Skilled Intervention/Details: Sit->Supine: Increased momentum Transfer Assessment: Sit to Stand Transfer [place] Level: Sit->Stand: dependent (less than 25% patient effort) Physical Assist: Sit->Stand: 2 person assist Assistive Device: Sit->Stand: gait belt (arm scar arm) Skilled Rationale: Positioning, Sequencing, Hand placement, Verbal cues, Full extension to upright positioning/posture, Technique of activity Skilled Intervention/Details: Sit->Stand: Unable to achieve full stand. Poor standing tolerance Bed-Chair Transfer [place] Level: Bed<->Chair: other (see comments) (No readiness) Functional Mobility: Functional Mobility [place] Level: Functional Mobility/Gait: other (see comments) (Non ambualtory) Wheelchair Assessment Patient currently uses wheelchair?: No Outcome Score(s): CURRENT AM-PAC Daily Activity Inpatient Short Form Putting on/Taking Off Lower Body Clothin - Total Assistance Bathin - Total Assistance Toiletin - Total Assistance Putting on/Taking Off Upper Body Clothin - A Little Assistance Groomin - A Little Assistance Eatin - A Little Assistance CURRENT AM-PAC Activity Raw Score: 12 CURRENT AM-PAC Activity Functional Limitation/Modifier: 66.57% Currently Impaired in Daily Activity- CL Interventions: Intervention 1 Intervention Name: RUE strengthening exercises Details: Pt educated on Active and AAROM of rigth shoulder elevation, retraction,elbow flexion/extension, supination, pronation. Educated on visual input and slow movement vs speed to improve overallmotor planning and coordination. Visual hand out provided. Pt also educated on data analytics analyst strengthening exercises using medium resistance squeeze foam. Assessment & Plan: Pardeep Mark is a 58 y.o. female with PMH significant for reported seizures, sarcoma s/p L AKA, mood disorder, opioid use disorder on suboxone, hypertension, prior right basal ganglia stroke (per chart review), admitted with right facial droop, hemiparesis, decreased sensation, left visual field cut/ dysarthria and seen for therapy related to weakness and balance deficits impacting safe transfers and ADL performance Exam findings include impairments in: aerobic capacity, balance, coordination, endurance, motor function, muscle performance, posture, ROM, strength, sensation, transfers, vision. These impairments contribute to occupational performance limitations including bathing, dressing, grooming, toileting, f unctional mobility, ADL transfers, home management tasks, driving/transportation. The following factors impact the plan of care: None Patient will benefit from skilled occupational therapy to address these impairments, occupational performance limitations, and participation restrictions. Patient's rehab potential is: good, to achieve stated therapy goals. Planned Therapy Interventions (OT Eval): ADL retraining, IADL retraining, balance training, bed mobility training, fine motor coordination training, functional activity tolerance, joint mobilization,motor coordination training, ROM (range of motion), strengthening, transfer training Patient Instruction/Education this session: Patient was provided stroke specific education on Discharge recommendations, ROM/Therapeutic exercises and Positioning. Education provided in Verbal, Demonstration and Handout format, and demonstration of understanding with need for on-going education. All questions answered. Plan for next session: RUE strengthening/Modified ADL and transfers Acute OT Goals Plan of Care by Kelly Tillman OT at 05/09/2023 10:15 AM Version 1 of 1 Problem: OT - ADLs Goal: Grooming Description: Pt will complete grooming Edge of bed with modified independence using RUE as assist 100% of time for improved ability to safely complete ADLs. Outcome: Ongoing Goal: Bathing Description: Pt will perform full body bathing/dressing routine with modified independence while seated for improved ability to complete self-care activities. Outcome: Ongoing Problem: OT - Transfers Goal: Transfers Toilet/Bedside Commode Description: Pt will transfer to/from toilet/BSC with minimal assistance and moderate assistance x1for improved ability to safely complete ADLs. Outcome: Ongoing Problem: OT - Strength/ROM Goal: Strength/ROM ADL Participation Description: Pt will demonstrate independence with RUE exercise program to prevent deconditioning while in the hospital and to maximize RUE ROM/coordination/strength for ADL participation. Outcome: Ongoing OT treatment consisted of the following to work and progress towards the above goal(s): OT Evaluation and Treatment Time OT Evaluation (Moderate) Time Entry: 15 Evaluating Therapist: Kelly Tillman OT Additional Details: OT Co-Eval/Treatment Information Co-evaluation/co-treatment performed?: Yes, simultaneous billable skilled care was necessary due tomedical complexity and functional deficits Other discipline: PT Rationale for need to co-eval/treat: postural control, coordination issues (Initial safe mobilization assessment) OT Evaluation Complexity Occupational Profile and Client History: Moderate - expanded history Assessment of Occupational Performance: Moderate (3-5 performance deficits) Clinical Decision/Performance Deficits: Moderate (detailed assessments w/several treatment options) Time In: 1000 Time Out: 1015 Total Visit Time: 15 minutes Total Treatment Time (skilled, billable minutes): 15 minutes PPE used during patient interaction: facemask, gloves Patient location at end of session: bed with head of bed elevated Alarms on at end of session: bed alarm Needs in reach. Upon discontinuation of Acute Care Occupational Therapy Services or patient discharge from the hospital this note represents the current Occupational Therapy Discharge Summary. * Anil Cortes [facility] - 05/08/2023 11:47 PM EDT Images from the original note were not included. Department of Pharmacy OARRS Note Patient: Pardeep Mark Room/Bed: E036/E036 I have reviewed the patient's OARRS report and have found that the patient has regularly filled thefollowing contributory prescriptions in the last 6 months Please feel free to contact me with any further questions. Anil Cortes, Ethel, LAURA, BCCCP, BCPS Specialty Practice Pharmacist - Emergency Medicine Pager: [phone] Portable Phone: [phone] Date/Time: 05/08/2023 11:50 PM Time Spent: 5 minutes documented in this [facility]10-30-2023 Hospital Discharge instructions* Discharge Instructions* Candi Martínez DO - 05/12/2023 7:37 PM EDT You were evaluated in the hospital due to concern for seizure-like activity and right sided weakness. During your stay, you had an MRI of the brain that showed an old area of injury/blockage on the right side that is likely unrelated to any current or prior symptoms, making stroke less likely the cause of your weakness. You were evaluated by therapies and showed significant improvement. You were started on a lipid lowering medication and continued on 81 mg of aspirin to help prevent blockages in the brain vessels/strokes in the future. Your seizure medication was changed from Keppra to Depakote. It will be important for you to continue this medication and follow-up with your primary Neurologist. documented in this [facility]10-30-2023 Miscellaneous Notes* Plan of Care - Michael Urbina PT - 05/12/2023 1:01 PM EDT Problem: PT - Transfers Goal: Supine <-> Sit Description: Pt will perform bed mobility with flat bed & no rail with standby assistance in order to improve functional mobility and safety. Outcome: Met This Shift Goal: Sit <-> Stand Description: Pt will perform sit to/from stand transfers with standby assistance with least restrictive device in order to improve functional mobility and safety. Outcome: Met This Shift Goal: Stand-Pivot Description: Pt will perform stand/pivot transfer to/from bed/chair/commode with standby assistancewith least restrictive device in order to improve functional mobility and safety. Outcome: Met This Shift Problem: PT - Mobility Goal: Wheelchair Management Description: Pt will propel wheelchair 1000 feet with modified independence for improved safety andfunctional mobility at next level of care. Outcome: Ongoing * Plan of Care - Daria Coates OT - 05/12/2023 10:35 AM EDT Problem: OT - ADLs Goal: Grooming Description: Pt will complete grooming Edge of bed with modified independence using RUE as assist 100% of time for improved ability to safely complete ADLs. Outcome: Ongoing Problem: OT - Transfers Goal: Transfers Toilet/Bedside Commode Description: Pt will transfer to/from toilet/BSC with minimal assistance and moderate assistance x1for improved ability to safely complete ADLs. Outcome: Ongoing * Plan of Care - Candi Jaimes RN - 05/11/2023 5:30 PM EDT Problem: Patient Care Overview Goal: Plan of Care Review Outcome: Ongoing Goal: Individualization & Mutuality Outcome: Ongoing Goal: Discharge Needs Assessment Outcome: Ongoing Goal: Interdisciplinary Rounds/Family Conf Outcome: Ongoing * Plan of Care - Cheryl Mancilla MD - 05/11/2023 2:32 PM EDT MAT team Asked by RN to meet with patient as she is requesting change in suboxone to 16mg daily instead of split dosing. She said she was worried about going into withdrawal since she is taking it differently. Provided reassurance and on exam no clear signs of withdrawal, she remains interested in sublocadeif able to have the injectable, and said she will run out of suboxone by Friday and will need a new prescription for discharge Cheryl Mancilla MD * Nursing Notes - Kameron Gama RN - 05/11/2023 4:06 AM EDT 0406: Patient c/o of inability to urinate -- bladder scanned for 600 mL. Patient cannot lift right arm or right leg against gravity (this can be part of her fluctuating baseline) and patient self-reported seizure activity yesterday. Given the aforesaid, patient placed on bed mon[place] with only 60 mL out(patient not deemed safe enough to get to the bedside commode given weakness). NVS aware -- will discuss need for straight catheterization orders. 0500: Urine cloudy -- prior UA dirty -- will discuss possible need for repeat UA/UC. * Plan of Care - Candi Jaimes RN - 05/10/2023 4:08 PM EDT Problem: Patient Care Overview Goal: Plan of Care Review Outcome: Ongoing Goal: Individualization & Mutuality Outcome: Ongoing Goal: Discharge Needs Assessment Outcome: Ongoing Goal: Interdisciplinary Rounds/Family Conf Outcome: Ongoing * Plan of Care - Judith Hale PT - 05/10/2023 2:04 PM EDT Problem: PT - Transfers Goal: Supine <-> Sit Description: Pt will perform bed mobility with flat bed & no rail with standby assistance in order to improve functional mobility and safety. Outcome: Progressing Toward Goal Goal: Sit <-> Stand Description: Pt will perform sit to/from stand transfers with standby assistance with least restrictive device in order to improve functional mobility and safety. Outcome: Progressing Toward Goal Goal: Stand-Pivot Description: Pt will perform stand/pivot transfer to/from bed/chair/commode with standby assistancewith least restrictive device in order to improve functional mobility and safety. 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 Outcome: Ongoing * Plan of Care - Judith Hale PT - 05/09/2023 11:14 AM EDT Problem: PT - Transfers Goal: Supine <-> Sit Description: Pt will perform bed mobility with flat bed & no rail with standby assistance in order to improve functional mobility and safety. Outcome: Ongoing Goal: Sit <-> Stand Description: Pt will perform sit to/from stand transfers with standby assistance with least restrictive device in order to improve functional mobility and safety. Outcome: Ongoing Goal: Stand-Pivot Description: Pt will perform stand/pivot transfer to/from bed/chair/commode with standby assistancewith least restrictive device in order to improve functional mobility and safety. Outcome: Ongoing * Plan of Care - Candi Jaimes RN - 05/09/2023 11:03 AM EDT Problem: Patient Care Overview Goal: Plan of Care Review Outcome: Ongoing Goal: Individualization & Mutuality Outcome: Ongoing Goal: Discharge Needs Assessment Outcome: Ongoing Goal: Interdisciplinary Rounds/Family Conf Outcome: Ongoing Problem: Stroke (Ischemic) (Adult) Goal: Signs and Symptoms of Listed Potential Problems Will be Absent, Minimized or Managed (Stroke) Description: Signs and symptoms of listed potential problems will be absent, minimized or managed by discharge/transition of care (reference Stroke (Ischemic) (Adult) CPG). Outcome: Ongoing * Plan of Care - Kelly Tillman OT - 05/09/2023 10:15 AM EDT Problem: OT - ADLs Goal: Grooming Description: Pt will complete grooming Edge of bed with modified independence using RUE as assist 100% of time for improved ability to safely complete ADLs. Outcome: Ongoing Goal: Bathing Description: Pt will perform full body bathing/dressing routine with modified independence while seated for improved ability to complete self-care activities. Outcome: Ongoing Problem: OT - Transfers Goal: Transfers Toilet/Bedside Commode Description: Pt will transfer to/from toilet/BSC with minimal assistance and moderate assistance x1for improved ability to safely complete ADLs. Outcome: Ongoing Problem: OT - Strength/ROM Goal: Strength/ROM ADL Participation Description: Pt will demonstrate independence with RUE exercise program to prevent deconditioning while in the hospital and to maximize RUE ROM/coordination/strength for ADL participation. Outcome: Ongoing * Nursing Notes - Aubree Plunkett RN - 05/09/2023 5:43 AM EDT 0543: Notified primary team about patient c/o seizure during MRI scan. Patient was reminded to staystill during exam and later told machines technician that she thinks she had a seizure. When questioned why she thought she had a seizure she states she had an aura (smell) during scan. RN and machines technician did not notice any jerking during scan other than head movement noted on MRI reading. Patient transported back to room and VSS, she does endorse 8/10 for headache. * Certification - Rebecca Velasquez MD - 05/09/2023 4:37 AM EDT I certify that this patient requires inpatient services at this time. I anticipate the expected length of stay will include at least two midnights. Inpatient services are due to the following medicalconcerns stroke vs sophia's paresis. Plans for post hospitalization care will be discharge to pending. * Nursing Notes - Aubree Plunkett RN - 05/09/2023 4:15 AM EDT On admission to B10E, from ED a dual RN initial assessment of skin condition was performed by Aubree Plunkett, RN and Ngoc Saldaña, RN. Skin Assessment: Skin within defined limits:Yes Nathan Score: 15 LDA Added:No Aubree Plunkett RN No wounds identified at this time [facility] of care [facility]* Plan of Care - Michael Urbina PT - 05/12/2023 1:01 PM EDT Problem: PT - Transfers Goal: Supine <-> Sit Description: Pt will perform bed mobility with flat bed & no rail with standby assistance in order to improve functional mobility and safety. Outcome: Met This Shift Goal: Sit <-> Stand Description: Pt will perform sit to/from stand transfers with standby assistance with least restrictive device in order to improve functional mobility and safety. Outcome: Met This Shift Goal: Stand-Pivot Description: Pt will perform stand/pivot transfer to/from bed/chair/commode with standby assistancewith least restrictive device in order to improve functional mobility and safety. Outcome: Met This Shift Problem: PT - Mobility Goal: Wheelchair Management Description: Pt will propel wheelchair 1000 feet with modified independence for improved safety andfunctional mobility at next level of care. Outcome: [facility]ngoing [facility] care [facility]* Plan of Care - Daria Coates OT - 05/12/2023 10:35 AM EDT Problem: OT - ADLs Goal: Grooming Description: Pt will complete grooming Edge of bed with modified independence using RUE as assist 100% of time for improved ability to safely complete ADLs. Outcome: Ongoing Problem: OT - Transfers Goal: Transfers Toilet/Bedside Commode Description: Pt will transfer to/from toilet/BSC with minimal assistance and moderate assistance x1for improved ability to safely complete ADLs. Outcome: Ongoing [facility]10[facility]29[facility] Plan of care note* Plan of Care - Candi Jaimes RN - 05/11/2023 5:30 PM EDT Problem: Patient Care Overview Goal: Plan of Care Review Outcome: Ongoing Goal: Individualization & Mutuality Outcome: Ongoing Goal: Discharge Needs Assessment Outcome: Ongoing Goal: Interdisciplinary Rounds/Family Conf Outcome: Ongoing [facility]10-29-2023 Plan of care note* Plan of Care - Cheryl Mancilla MD - 05/11/2023 2:32 PM EDT MAT team Asked by RN to meet with patient as she is requesting change in suboxone to 16mg daily instead of split dosing. She said she was worried about going into withdrawal since she is taking it differently. Provided reassurance and on exam no clear signs of withdrawal, she remains interested in sublocadeif able to have the injectable, and said she will run out of suboxone by Friday and will need a new prescription for discharge Cheryl Mancilla MD [facility] Work Phone: [phone] Nurse Note* Nursing Notes - Kameron Gama RN - 05/11/2023 4:06 AM EDT 0406: Patient c/o of inability to urinate -- bladder scanned for 600 mL. Patient cannot lift right arm or right leg against gravity (this can be part of her fluctuating baseline) and patient self-reported seizure activity yesterday. Given the aforesaid, patient placed on bed monroy with only 60 mL out(patient not deemed safe enough to get to the bedside commode given weakness). NVS aware -- will discuss need for straight catheterization orders. 0500: Urine cloudy -- prior UA dirty -- will discuss possible need for repeat UA/UC. [facility]10-28-2023 Plan of care note* Plan of Care - Candi Jaimes RN - 05/10/2023 4:08 PM EDT Problem: Patient Care Overview Goal: Plan of Care Review Outcome: Ongoing Goal: Individualization & Mutuality Outcome: Ongoing Goal: Discharge Needs Assessment Outcome: Ongoing Goal: Interdisciplinary Rounds/Family Conf Outcome: Ongoing [facility]10-28-20[facility] Plan of care note* Plan of Care - Judith Hale PT - 05/10/2023 2:04 PM EDT Problem: PT - Transfers Goal: Supine <-> Sit Description: Pt will perform bed mobility with flat bed & no rail with standby assistance in order to improve functional mobility and safety. Outcome: Progressing Toward Goal Goal: Sit <-> Stand Description: Pt will perform sit to/from stand transfers with standby assistance with least restrictive device in order to improve functional mobility and safety. Outcome: Progressing Toward Goal Goal: Stand-Pivot Description: Pt will perform stand/pivot transfer to/from bed/chair/commode with standby assistancewith least restrictive device in order to improve functional mobility and safety. Outcome: Progressing Toward Goal [facility]10-27-2023 Consult note* FLEX Godfrey - 05/09/2023 1:30 PM EDTAssociated Order(s): IP CONSULT TO ADDICTION MEDICINE [facility] Consult [facility] INITIAL CONSULT Patient: Pardeep Mark, 1965, [id number] Physician: FLEX Godfrey, Pager #[phone], MAT Consult Encounter date: 05/09/2023 Reason for Consult: Assessment of Opioid Use Disorder Consulting Provider: Todd Muhammad MD IMPRESSION/PLAN 58 y.o. female with history of PMH significant for reported history of seizures, sarcoma s/p L AKA,mood disorder, opioid use disorder on suboxone, hypertension, prior right basal ganglia stroke, whopresents with right facial droop, hemiparesis, decreased sensation, left visual field cut and dysarthria. She is seen today in consultation for evaluation of Opioid Use Disorder. Opioid Use Disorder Plan for medication for Opioid Use Disorder: Continue home maintenance dose suboxone 8mg BID - reports tongue and throat swelling when transitioned back to suboxone and talked with provider zach to long acting injectable sublocade -appears to be tolerating at current time can change to subutex, makes no difference at this time as long as she is getting her buprenorphine to not go into withdrawal -1-2 days prior to DC will give sublocade 300mg IM once [facility] calls me back to confirm she didnot get this which is likely she did not considering she got a month supply dispensed of suboxone Discharge Planning Our Addiction Medicine medical social worker will work with the patient on finding an appropriate follow-uplocation for ongoing MAT and will communicate with the patient's medical data analyst and medical social worker. Please see Addiction Medicine SW note for details. Please contact us 1-2 days prior to discharge so we can ensure appropriate follow up and provide them with a prescription to bridge them to that appt. Discharge considerations on buprenorphine or methadone: If patient is on buprenorphine and is going to SNF: SW please ask SNF if they need paper script for buprenorphine product (and for how many days) or ifthey need the script to be filled at [facility] and medication transported with patient. Please also ask SNF if they are able to transport her to her first outpatient MAT appointment or if the buprenorphineprescription will need to be filled for entire duration that she is at the SNF and outpatient appointment made after estimated date of discharge from SNF. Harm Reduction Please offer Hepatitis A vaccination if patient at increased risk and no prior vaccine documented. Please offer Hepatitis B vaccination if patient non-immune or at increased risk and no prior vaccine documented. Please offer Tetanus vaccination if no documentation of prior vaccine within last 10 years. Recommend universal screening for HIV and Hepatitis C if patient amenable and no prior screening performed. Narcan should be prescribed by placing an order for Meek Lowery in the discharge med rec. Additional care coordination: discussed care with Addiction Medicine SW, primary team Plan discussed with my attending physician and all were in agreement. HISTORY OF PRESENT ILLNESS Pardeep Mark is a 58 y.o. female with history of PMH significant for reported history of seizures,sarcoma s/p L AKA, mood disorder, opioid use disorder on suboxone, hypertension, prior right basal ganglia stroke, who presents with right facial droop, hemiparesis, decreased sensation, left visual field cut and dysarthria. She is seen today in consultation for evaluation of Opioid Use Disorder. Inge states that at age 37 she was diagnosed with cancer and was on high amounts of opiates for angeles long time and subsequently [facility] transitioned her over to Subutex. Since then over the years when [facility] stopped managing her Subutex she was referred to a pain provider recently that was trying to taper her off which is noted in her OARRS report and then after having a reported seizure he was concerned that he could not get her lower than 2 mg once or twice a day and she states that she was referred to [facility]. She states that during her cancer treatment she was taking all of her pain medications as prescribed and it sounds like given long-term prescriptions and high doses dependence was likely. Patient does have a desire and hope that eventually she will be able to taper off this medication which is why [facility] ordered the Sublocade long-acting injectable once a month for her which she states she was supposed to get at the end of this month. She states that when she takes the Suboxone that she was picking up from [facility] pharmacy that she is had continued tongue swelling and some throat swelling all of which [facility] L[facility]aro is aware and theyhave been going back and forth per the OARRS report and patient report on prescribing her Suboxone and/or Subutex. I have a call into [facility] is clinic about the Sublocade injection that was ordered on 04/16/23 to confirm that this in fact was not given so that we can start her here why she is in the hospital. Pt meets the following criteria for substance use disorder: -Taking substance in larger amounts or over a longer period of time than intended - Having a persistent desire or unsuccessful attempts to reduce or control substance use - Continuing substance use in spite of awareness of persistent physical or psychological problems - Exhibiting tolerance symptoms - Exhibiting withdrawal symptoms MEDICAL HISTORY No past medical history on file. Past Surgical History: Procedure Laterality Date REMOVAL BILIARY DUCT/GALLBLADDER CALCULI/DEBRIS PERCUTANEOUS W/ IMAGE 1998 APPENDECTOMY 1974 HYSTERECTOMY SUBTOTAL ABDOMINAL LAPAROSCOPIC SOCIAL HISTORY Social History Tobacco Use Smoking status: Never Smokeless tobacco: Never Substance Use Topics Alcohol use: Yes Alcohol/week: 1.0 standard drink of alcohol Types: 1 Glasses of wine per week Social History Substance and Sexual Activity Drug Use Not on file Patient will also be evaluated by Addiction Medicine Gallery Host. Please see their documentation of this treatment episode for additional social history. FAMILY HISTORY family history is not on file. MEDICATIONS Prior to Admission Medications Prescriptions Last Dose Informant Patient Reported? Taking? Melatonin 10 MG capsule Yes No Sig: Take 2 capsules by mouth at bedtime. Multiple Vitamin (MULTIVITAMIN) Cap Yes No Sig: Take 1 capsule by mouth daily. buprenorphine 8 mg/naloxone 2 mg (SUBOXONE) SL film Yes No Sig: Place 1 strip under tongue every 12 hours. duloxetine [address] Particles capsule DR Yes No Sig: Take 90 mg by mouth daily. levetiracetam (Keppra) 750 MG tablet Yes No Sig: Take 1 tablet by mouth 2 times daily. Facility-Administered Medications: None ALLERGIES Allergies Allergen Reactions Phenergan [Promethazine] Hives and Itching Compazine [Prochlorperazine] Hives REVIEW OF SYSTEMS All systems reviewed. Pertinent responses per HPI. Otherwise negative. Positive results are in bold. Constitutional: Denies fever, chills, weight changes, insomnia, restless Eyes: Denies vision changes ENT: Denies ringing, loss of hearing, runny nose, yawning Cardiovascular: Denies LE edema, PND, orthopnea, tachycardia and chest pain Respiratory: Denies cough, SOB, wheezing Gastrointestinal: Denies abd pain, constipation, diarrhea, nausea, vomiting Genitourinary: Denies dysuria, gross hematuria, discharge Integumentary: Denies rash or lesions, sweating, gooseflesh Neurological: Denies tremor, seizures or headaches, weakness, tremor Musculoskeletal: Denies myalgias, joint pains, joint deformity, Psych: Denies anxiety, depression, irritability, hallucinations, SI/HI PHYSICAL EXAM Vitals: 05/09/23 1120 BP: 139/74 Pulse: 100 Resp: 13 Temp: 98.2 F (36.8 C) SpO2: 97% O2 Device: nasal cannula (05/09/23 1120) Flow (L/min): 2 (05/09/23524) Exam: Gen: Alert, Awake, Lying in bed, NAD Eyes: PERRL, EOMI, no icterus. ENT: MMM, trachea midline, no hoarseness Resp: Normal respiratory effort Cardio: tachy. MS: L AKA Skin: No jaundice or rash. Neuro: R facial droop, R side weakness, A&Ox4 Labs/ Data Review Lab Results Component Value Date SODIUM 134 (L) 05/08/2023 POTASSIUM 3.6 05/08/2023 CHLORIDE 104 05/08/2023 CO2 25 05/08/2023 BUN 10 05/08/2023 CREATSERUM 0.61 05/08/2023 Lab Results Component Value Date ALT 19 05/08/2023 AST 20 05/08/2023 ALKPHOS 71 05/08/2023 BILITOTAL 0.4 05/08/2023 BILIDIRECT 0.1 05/08/2023 WBC/Hgb/Hct/Plts: 12.22/12.9/37.5/272 (05/08 2339-05/09 246) Na/K+/Phos/Mg/Ca: 134/3.6/3.3/1.8/8.1 (05/08 2339) Bun/Creat/Cl/CO2/Glucose: 10/0.61/104/25/102 (05/08 2339) Ptt/Pt/Inr: 26.1/14.1/1.1 (05/08 2339) Body mass index is 35.43 kg/m . No results found for: HIV1X2 No results found for: HEPCAB, HEPCPCRQN, HEPATITISB, HEPBSURFAB, HEPABIG OARRS Report: Reviewed SUBLOCADE 300 MG/1.5 ML SYRING 04/16/2023 04/16/2023 PREGABALIN 100 MG CAPSULE 11/14/2022 11/13/2022 21 Each 0 7 BUPRENORPHINE-NALOX 8-2 MG TAB 04/16/2023 04/16/2023 56 Each 0 28 BUPRENORPHINE 8 MG TABLET SL 04/10/2023 04/10/2023 14 Each 0 7 I have reviewed previous notes and images, labs in [facility] with significant findings stated above. 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 We will continue to follow with you. If you have any questions, please page the Addiction Medicine dynamics ax consultant on Web Exchange, or send a message via mojio. FLEX Godfrey [facility] Addiction Medicine provider can be found on WebVendavoge under *MATC Consult Auto page Total time for visit, including chart review, visit time with patient, collaboration with consulting provider(s)/care team, ordering, and documentation, was 90 minutes. [facility]10-27-2023 Consult note* FLEX Godfrey - 05/09/2023 1:30 PM EDTAssociated Order(s): IP CONSULT TO ADDICTION MEDICINE [facility] Addiction Medicine Consult Service INITIAL CONSULT Patient: Pardeep Mark, 1965, [id number] Physician: FLEX Godfrey, Pager #[phone], MAT Consult Encounter date: 05/09/2023 Reason for Consult: Assessment of Opioid Use Disorder Consulting Provider: Todd Muhammad MD IMPRESSION/PLAN 58 y.o. female with history of PMH significant for reported history of seizures, sarcoma s/p L AKA,mood disorder, opioid use disorder on suboxone, hypertension, prior right basal ganglia stroke, whopresents with right facial droop, hemiparesis, decreased sensation, left visual field cut and dysarthria. She is seen today in consultation for evaluation of Opioid Use Disorder. Opioid Use Disorder Plan for medication for Opioid Use Disorder: Continue home maintenance dose suboxone 8mg BID - reports tongue and throat swelling when transitioned back to suboxone and talked with provider tochange to long acting injectable sublocade -appears to be tolerating at current time can change to subutex, makes no difference at this time as long as she is getting her buprenorphine to not go into withdrawal -1-2 days prior to DC will give sublocade 300mg IM once [facility] calls me back to confirm she didnot get this which is likely she did not considering she got a month supply dispensed of suboxone Discharge Planning Our Addiction Medicine medical social worker will work with the patient on finding an appropriate follow-uplocation for ongoing MAT and will communicate with the patient's medical data analyst and medical social worker. Please see Addiction Medicine SW note for details. Please contact us 1-2 days prior to discharge so we can ensure appropriate follow up and provide them with a prescription to bridge them to that appt. Discharge considerations on buprenorphine or methadone: If patient is on buprenorphine and is going to SNF: SW please ask SNF if they need paper script for buprenorphine product (and for how many days) or ifthey need the script to be filled at [facility] and medication transported with patient. Please also ask SNF if they are able to transport her to her first outpatient MAT appointment or if the buprenorphineprescription will need to be filled for entire duration that she is at the SNF and outpatient appointment made after estimated date of discharge from SNF. Harm Reduction Please offer Hepatitis A vaccination if patient at increased risk and no prior vaccine documented. Please offer Hepatitis B vaccination if patient non-immune or at increased risk and no prior vaccine documented. Please offer Tetanus vaccination if no documentation of prior vaccine within last 10 years. Recommend universal screening for HIV and Hepatitis C if patient amenable and no prior screening performed. Narcan should be prescribed by placing an order for [employer] in the discharge med rec. Additional care coordination: discussed care with Addiction Medicine SW, primary team Plan discussed with my attending physician and all were in agreement. HISTORY OF PRESENT ILLNESS Pardeep Mark is a 58 y.o. female with history of PMH significant for reported history of seizures,sarcoma s/p L AKA, mood disorder, opioid use disorder on suboxone, hypertension, prior right basal ganglia stroke, who presents with right facial droop, hemiparesis, decreased sensation, left visual field cut and dysarthria. She is seen today in consultation for evaluation of Opioid Use Disorder. Inge states that at age 37 she was diagnosed with cancer and was on high amounts of opiates for angeles long time and subsequently [facility] transitioned her over to Subutex. Since then over the years when [facility] stopped managing her Subutex she was referred to a pain provider recently that was trying to taper her off which is noted in her OARRS report and then after having a reported seizure he was concerned that he could not get her lower than 2 mg once or twice a day and she states that she was referred to [facility]. She states that during her cancer treatment she was taking all of her pain medications as prescribed and it sounds like given long-term prescriptions and high doses dependence was likely. Patient does have a desire and hope that eventually she will be able to taper off this medication which is why [facility] Lazaro ordered the Sublocade long-acting injectable once a month for her which she states she was supposed to get at the end of this month. She states that when she takes the Suboxone that she was picking up from [facility] pharmacy that she is had continued tongue swelling and some throat swelling all of which [facility] Lazaro is aware and theyhave been going back and forth per the OARRS report and patient report on prescribing her Suboxone and/or Subutex. I have a call into [facility] is clinic about the Sublocade injection that was ordered on 04/16/23 to confirm that this in fact was not given so that we can start her here why she is in the hospital. Pt meets the following criteria for substance use disorder: -Taking substance in larger amounts or over a longer period of time than intended - Having a persistent desire or unsuccessful attempts to reduce or control substance use - Continuing substance use in spite of awareness of persistent physical or psychological problems - Exhibiting tolerance symptoms - Exhibiting withdrawal symptoms MEDICAL HISTORY No past medical history on file. Past Surgical History: Procedure Laterality Date REMOVAL BILIARY DUCT/GALLBLADDER CALCULI/DEBRIS PERCUTANEOUS W/ IMAGE 1997 APPENDECTOMY 1974 HYSTERECTOMY SUBTOTAL ABDOMINAL LAPAROSCOPIC SOCIAL HISTORY Social History Tobacco Use Smoking status: Never Smokeless tobacco: Never Substance Use Topics Alcohol use: Yes Alcohol/week: 1.0 standard drink of alcohol Types: 1 Glasses of wine per week Social History Substance and Sexual Activity Drug Use Not on file Patient will also be evaluated by Addiction Medicine Gallery Host. Please see their documentation of this treatment episode for additional social history. FAMILY HISTORY family history is not on file. MEDICATIONS Prior to Admission Medications Prescriptions Last Dose Informant Patient Reported? Taking? Melatonin 10 MG capsule Yes No Sig: Take 2 capsules by mouth at bedtime. Multiple Vitamin (MULTIVITAMIN) Cap Yes No Sig: Take 1 capsule by mouth daily. buprenorphine 8 mg/naloxone 2 mg (SUBOXONE) SL film Yes No Sig: Place 1 strip under tongue every 12 hours. duloxetine [address] Particles capsule DR Yes No Sig: Take 90 mg by mouth daily. levetiracetam (Keppra) 750 MG tablet Yes No Sig: Take 1 tablet by mouth 2 times daily. Facility-Administered Medications: None ALLERGIES Allergies Allergen Reactions Phenergan [Promethazine] Hives and Itching Compazine [Prochlorperazine] Hives REVIEW OF SYSTEMS All systems reviewed. Pertinent responses per HPI. Otherwise negative. Positive results are in bold. Constitutional: Denies fever, chills, weight changes, insomnia, restless Eyes: Denies vision changes ENT: Denies ringing, loss of hearing, runny nose, yawning Cardiovascular: Denies LE edema, PND, orthopnea, tachycardia and chest pain Respiratory: Denies cough, SOB, wheezing Gastrointestinal: Denies abd pain, constipation, diarrhea, nausea, vomiting Genitourinary: Denies dysuria, gross hematuria, discharge Integumentary: Denies rash or lesions, sweating, gooseflesh Neurological: Denies tremor, seizures or headaches, weakness, tremor Musculoskeletal: Denies myalgias, joint pains, joint deformity, Psych: Denies anxiety, depression, irritability, hallucinations, SI/HI PHYSICAL EXAM Vitals: 05/09/23 1120 BP: 139/74 Pulse: 100 Resp: 13 Temp: 98.2 F (36.8 C) SpO2: 97% O2 Device: nasal cannula (05/09/23 112) Flow (L/min): 2 (05/09/23 0525) Exam: Gen: Alert, Awake, Lying in bed, NAD Eyes: PERRL, EOMI, no icterus. ENT: MMM, trachea midline, no hoarseness Resp: Normal respiratory effort Cardio: tachy. MS: L AKA Skin: No jaundice or rash. Neuro: R facial droop, R side weakness, A&Ox4 Labs/ Data Review Lab Results Component Value Date SODIUM 134 (L) 05/08/2023 POTASSIUM 3.6 05/08/2023 CHLORIDE 104 05/08/2023 CO2 25 05/08/2023 BUN 10 05/08/2023 CREATSERUM 0.61 05/08/2023 Lab Results Component Value Date ALT 19 05/08/2023 AST 20 05/08/2023 ALKPHOS 71 05/08/2023 BILITOTAL 0.4 05/08/2023 BILIDIRECT 0.1 05/08/2023 WBC/Hgb/Hct/Plts: 12.22/12.9/37.5/272 (05/08 2339-05/09 246) Na/K+/Phos/Mg/Ca: 134/3.6/3.3/1.8/8.1 (05/08 2339) Bun/Creat/Cl/CO2/Glucose: 10/0.61/104/25/102 (05/08 2339) Ptt/Pt/Inr: 26.1/14.1/1.1 (05/08 2339) Body mass index is 35.43 kg/m . No results found for: HIV1X2 No results found for: HEPCAB, HEPCPCRQN, HEPATITISB, HEPBSURFAB, HEPABIG OARRS Report: Reviewed SUBLOCADE 300 MG/1.5 ML SYRING 04/16/2023 04/16/2023 PREGABALIN 100 MG CAPSULE 11/14/2022 11/13/2022 21 Each 0 7 BUPRENORPHINE-NALOX 8-2 MG TAB 04/16/2023 04/16/2023 56 Each 0 28 BUPRENORPHINE 8 MG TABLET SL 04/10/2023 04/10/2023 14 Each 0 7 I have reviewed previous notes and images, labs in [facility] with significant findings stated above. 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 We will continue to follow with you. If you have any questions, please page the Addiction Medicine dynamics ax consultant on Web Exchange, or send a message via mojio. Kathy Aguilar APRN-LITO [facility] Addiction Medicine provider can be found on WebVendavoge under *MATC Consult Auto page Total time for visit, including chart review, visit time with patient, collaboration with consulting provider(s)/care team, ordering, and documentation, was 90 minutes. 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 Outcome: Ongoing [facility]10-27-2023 Plan of care note* Plan of Care - Judith Hale PT - 05/09/2023 11:14 AM EDT Problem: PT - Transfers Goal: Supine <-> Sit Description: Pt will perform bed mobility with flat bed & no rail with standby assistance in order to improve functional mobility and safety. Outcome: Ongoing Goal: Sit <-> Stand Description: Pt will perform sit to/from stand transfers with standby assistance with least restrictive device in order to improve functional mobility and safety. Outcome: Ongoing Goal: Stand-Pivot Description: Pt will perform stand/pivot transfer to/from bed/chair/commode with standby assistancewith least restrictive device in order to improve functional mobility and safety. Outcome: Ongoing [facility]10-27-2023 Plan of care note* Plan of Care - Candi Jaimes RN - 05/09/2023 11:03 AM EDT Problem: Patient Care Overview Goal: Plan of Care Review Outcome: Ongoing Goal: Individualization & Mutuality Outcome: Ongoing Goal: Discharge Needs Assessment Outcome: Ongoing Goal: Interdisciplinary Rounds/Family Conf Outcome: Ongoing Problem: Stroke (Ischemic) (Adult) Goal: Signs and Symptoms of Listed Potential Problems Will be Absent, Minimized or Managed (Stroke) Description: Signs and symptoms of listed potential problems will be absent, minimized or managed by discharge/transition of care (reference Stroke (Ischemic) (Adult) CPG). Outcome: Ongoing [facility]10-27-2023 Plan of care note* Plan of Care - Kelly Tillman OT - 05/09/2023 10:15 AM EDT Problem: OT - ADLs Goal: Grooming Description: Pt will complete grooming Edge of bed with modified independence using RUE as assist 100% of time for improved ability to safely complete ADLs. Outcome: Ongoing Goal: Bathing Description: Pt will perform full body bathing/dressing routine with modified independence while seated for improved ability to complete self-care activities. Outcome: Ongoing Problem: OT - Transfers Goal: Transfers Toilet/Bedside Commode Description: Pt will transfer to/from toilet/BSC with minimal assistance and moderate assistance x1for improved ability to safely complete ADLs. Outcome: Ongoing Problem: OT - Strength/ROM Goal: Strength/ROM ADL Participation Description: Pt will demonstrate independence with RUE exercise program to prevent deconditioning while in the hospital and to maximize RUE ROM/coordination/strength for ADL participation. Outcome: Ongoing [facility]10-27-[facility] Nurse Note* Nursing Notes - Aubree Plunkett RN - 05/09/2023 5:43 AM EDT 0543: Notified primary team about patient c/o seizure during MRI scan. Patient was reminded to staystill during exam and later told machines technician that she thinks she had a seizure. When questioned why she thought she had a seizure she states she had an aura (smell) during scan. RN and machines technician did not notice any jerking during scan other than head movement noted on MRI reading. Patient transported back to room and VSS, she does endorse 8/10 for headache. [facility]10-27-2023 Progress note* Certification - Rebecca Velasquez MD - 05/09/2023 4:37 AM EDT I certify that this patient requires inpatient services at this time. I anticipate the expected length of stay will include at least two midnights. Inpatient services are due to the following medicalconcerns stroke vs sophia's paresis. Plans for post hospitalization care will be discharge to pending. [facility]10-27-2023 Nurse Note* Nursing Notes - Aubree Plunkett RN - 05/09/2023 4:15 AM EDT On admission to B10E, from ED a dual RN initial assessment of skin condition was performed by Aubere Plunkett, RN and Ngoc Saldaña, RN. Skin Assessment: Skin within defined limits:Yes Nathan Score: 15 LDA Added:No Aubree Plunkett RN No wounds identified at this time [facility] Physician Emergency department Note* Slime Interiano MD - 05/09/2023 12:29 AM EDT Signout: Pardeep Mark 58 y.o. female with a chief complaint of No chief complaint on file. received in sign-out. Vitals: 05/08/23 2334 05/08/23 2335 05/08/23 2345 05/09/23 0000 BP: 159/79 130/75 130/68 Pulse: 102 100 94 Resp: Temp: 98.7 degrees F (37.1 degrees C) TempSrc: Axillary SpO2: 98% 96% 94% Weight: 95.1 kg (209 lb 11.2 oz) Height: 1.6 m (5' 3) ED Course as of 05/09/23 0030 Myesha May 08, [address] STROKE HEAD-STROKE ALERT ONLY IMPRESSION: 1. Small area of hypodensity in the lateral left frontal lobe, concerning for acute left MCA territory infarct, but could also reflect partial volume averaging. 2. No intracranial hemorrhage. CT CEREBRAL PERFUSION ANALYSIS Final Result IMPRESSION: CT perfusion examination is within normal limits I personally viewed and interpreted these images and I have reviewed and approved this report. STROKE HEAD-STROKE ALERT ONLY Final Result IMPRESSION: 1. Small area of hypodensity in the lateral left frontal lobe, may reflect acute left MCA territory infarct, but could also reflect partial volume averaging. 2. No intracranial hemorrhage. Findings were discussed with Dr. Rebecca Velasquez at 2325 on May 08, 2023. I personally viewed and interpreted these images and I have reviewed and approved this report. BRAIN WITHOUT CONTRAST (Results Pending) Patient was a stroke alert, transfer from outside hospital. Does have a history of reported seizures versus pseudoseizures. Last known well 1300 05/08. Patient will be admitted to neurovascular for continued workup of CVA versus TIA versus Sophia's paralysis. Slime Interiano MD Resident 05/09/2330 [facility] Work Phone: [phone]) 660-799110-27-2023 Emergency department Note* Slime Interiano MD - 05/09/2023 12:29 AM EDT Signout: Pardeep Mark 58 y.o. female with a chief complaint of No chief complaint on file. received in sign-out. Vitals: 05/08/23 2334 05/08/23 2335 05/08/23 2345 05/09/23 0000 BP: 159/79 130/75 130/68 Pulse: 102 100 94 Resp: Temp: 98.7 degrees F (37.1 degrees C) TempSrc: Axillary SpO2: 98% 96% 94% Weight: 95.1 kg (209 lb 11.2 oz) Height: 1.6 m (5' 3) ED Course as of 05/09/2329 [facility] May 08, [address] STROKE HEAD-STROKE ALERT ONLY IMPRESSION: 1. Small area of hypodensity in the lateral left frontal lobe, concerning for acute left MCA territory infarct, but could also reflect partial volume averaging. 2. No intracranial hemorrhage. CT CEREBRAL PERFUSION ANALYSIS Final Result IMPRESSION: CT perfusion examination is within normal limits I personally viewed and interpreted these images and I have reviewed and approved this report. STROKE HEAD-STROKE ALERT ONLY Final Result IMPRESSION: 1. Small area of hypodensity in the lateral left frontal lobe, may reflect acute left MCA territory infarct, but could also reflect partial volume averaging. 2. No intracranial hemorrhage. Findings were discussed with Dr. Rebecca Velasquez at 2325 on May 08, 2023. I personally viewed and interpreted these images and I have reviewed and approved this report. BRAIN WITHOUT CONTRAST (Results Pending) Patient was a stroke alert, transfer from outside hospital. Does have a history of reported seizures versus pseudoseizures. Last known well 1300 05/08. Patient will be admitted to neurovascular for continued workup of CVA versus TIA versus Sophia's paralysis. Slime Interiano MD Resident 05/09/23 0031 * Madeline Cazares MD - 05/08/2023 11:07 PM EDT Images from the original note were not included. Emergency Department Encounter History No chief complaint on file. The history is provided by the patient, medical records and the EMS personnel. The history is limited by the condition of the patient. Ms. Mark is a 58 y.o. Guamanian-speaking F PMH seizures (?pseudoseizures - pt reports confirmed complex partial seizures on video EEG Dx OSH) prior LLE amputation TIAs on subutex transfer from [facility] as a stroke alert. LKW approx 1 PM. Hx limited pt states she doesn't remember details. Pt thinks she was in the garage and maybe had a seizure. Doesn't know how she go to the other hospital. Denies pain/injuries. Lives alone but a neighbor reportedly found her in her garage. OSH CTA possible R M2 occlusion Denies pain/injuries from possible fall. OSH glucose was 129 EtOH was negative Ammonia was WNL OSH records - see scan in media tab. Excerpts copied below for reference. No past medical history on file. Past Surgical History: Procedure Laterality Date REMOVAL BILIARY DUCT/GALLBLADDER CALCULI/DEBRIS PERCUTANEOUS W/ IMAGE 1997 APPENDECTOMY 1974 HYSTERECTOMY SUBTOTAL ABDOMINAL LAPAROSCOPIC No family history on file. Review of Systems Unable to perform ROS: Acuity of condition Constitutional: Negative for fever. HENT: Positive for voice change (slurred speech/facial droop). Eyes: Negative for photophobia. Respiratory: Negative for shortness of breath. Cardiovascular: Negative for chest pain. Gastrointestinal: Negative for abdominal pain. Musculoskeletal: Negative for arthralgias and myalgias. Skin: Negative for color change and wound. Neurological: Positive for seizures, numbness and headaches. Physical Exam BP 159/79 Pulse 102 Temp 98.7 F (37.1 C) (Axillary) Resp 20 Ht 1.6 m (5' 3) Wt 95.1 kg (209 lb 11.2 oz) SpO2 98% BMI 37.15 kg/m Temp: [98.7 F (37.1 C)] 98.7 F (37.1 C) Pulse (Heart Rate): [94-110] 94 Resp Rate: [17-23] 23 BP: (130-159)/(68-104) 130/68 O2 Sat (%): [94 %-98 %] 94 % Weight: [95.1 kg (209 lb 11.2 oz)] 95.1 kg (209 lb 11.2 oz) Physical Exam Constitutional: General: She is awake. She is not in acute distress. Appearance: She is obese. She is not toxic-appearing or diaphoretic. HENT: Head: Atraumatic. Nose: No rhinorrhea. Right Nostril: No epistaxis. Left Nostril: No epistaxis. Mouth/Throat: Lips: [place]. Mouth: Mucous membranes are moist. No lacerations. Eyes: General: No scleral icterus. Conjunctiva/sclera: Conjunctivae normal. Right eye: Right conjunctiva is not injected. Left eye: Left conjunctiva is not injected. Cardiovascular: Rate and Rhythm: Regular rhythm. Tachycardia present. Pulmonary: Effort: Pulmonary effort is normal. No tachypnea, bradypnea, accessory muscle usage, prolonged expiration, respiratory distress or retractions. Abdominal: Palpations: Abdomen is soft. Tenderness: There is no abdominal tenderness. Musculoskeletal: Cervical back: Neck supple. Comments: Prior LLE amputation No TTP BL scaphoid, no obvious bruising/deformities BUE or RLE. Absent LLE. Skin: General: Skin is warm. Coloration: Skin is not jaundiced. Findings: No ecchymosis. Neurological: Mental Status: She is alert. Sensory: Sensory deficit present. Motor: No tremor or seizure activity. Comments: See NIHSS Reports sensory difference prox vs distal RLE, absent LLE, able to keep RUE from dropping with encouragement. Slurred speech. R lower droop; R sensory change lower face more dull than L side. Forehead sensory similar BL. Psychiatric: Attention and Perception: Attention normal. Mood and Affect: Mood normal. Behavior: Behavior is cooperative. Cognition and Memory: Memory is impaired. Comments: Talkative, pleasant. Doesn't recall details from earlier today prior to OSH eval. ED Course ED Course as of 05/09/23 0021 Myesha May 08, [address] STROKE HEAD-STROKE ALERT ONLY PRELIMINARY RESULT IMPRESSION: 1. Small area of hypodensity in the lateral left frontal lobe, concerning for acute left MCA territory infarct, but could also reflect partial volume averaging. 2. No intracranial hemorrhage. Findings were discussed with Dr. Rebecca Velasquez at 2325 on May 08, 2023. 2342 CT CEREBRAL PERFUSION ANALYSIS IMPRESSION: CT perfusion examination is within normal limits 2[address] STROKE HEAD-STROKE ALERT ONLY IMPRESSION: 1. Small area of hypodensity in the lateral left frontal lobe, may reflect acute left MCA territory infarct, but could also reflect partial volume averaging. 2. No intracranial hemorrhage. Findings were discussed with Dr. Rebecca Velasquez at 2325 on May 08, 2023. I personally viewed and interpreted these images and I have reviewed and approved this report. 2344 Final read 2348 Per Neurovascular: Admit to neurovascular. Attending: Dr Todd Muhammad. Location: [facility]. Level of care: PCU. 2350 Discussing w/ pharmacist pt home Subutex -- last fill appears to be a 7d supply at the end of March. Pharmacy looking into home meds/verifying med/dose. Will order once clarified what home meds are. Pt states she takes the 8mg SL BID and is due for tonight's dose. Hx multiple surgeries so previously on oxycodone etc now stable on Subutex per pt. FriMay 09, 2023 0020 Pt updated w/ available results and plan. 0020 CK: 63 0020 Troponin High Sensitivity: 4 0020 WBC(!): 12.22 0020 HEMOGLOBIN: 12.9 0020 PLATELET Count: 242 0020 MAGNESIUM: 1.8 0020 BUN: 10 0020 Creatinine: 0.61 0020 Glucose(!): 102 0020 SODIUM(!): 134 0020 CHLORIDE: 104 0020 POTASSIUM: 3.6 0020 ANION GAP: 9 0020 CALCIUM(!): 8.1 0020 HEPATIC FUNCTION PANEL(!) WNL except protein 6.1 (L) 0021 INR: 1.1 Transfer as stroke alert possible LVO eval w neurovascular on arrival in CT scanner CT head CT perfusion Had CTA OSH Labs Seizure precautions Stroke orders/parameters Home meds Denies injuries related to possible fall earlier today. Will require admission Please also see ED course above Update: Admit Neurovascular PCU [facility] Dr. Muhammad s/o to oncoming team. Pt is admitted w/ service. Impression: CVA vs TIA vs Sophia's Paralysis vs other DICKEY Hx seizures At risk for falls Prolonged QTc I have spent 40 minutes of discontinuous time providing critical care. This time is exclusive of procedures. This time may have included but is not limited to: my initialevaluation, reassessments to evaluate response to treatments and changes in condition, supervision/coordination of care, ordering/review of diagnostic and radiologic studies/results, medication select ion, interpretation of EKGs/blood gas results if applicable, review of available outside/prior medical records, documentation, and discussion with care team and consultants. [x] Available outside records - focused review [x] I personally viewed available imaging - PACS / Xiao [] Recent DC summary, consults, and/or relevant outpatient documentation reviewed [x] Discussed with dynamics ax consultant(s) [x] Verbal report from EMS [x] EMS runsheet not available at time of staffing/evaluation Billing/Coding required documentation: Medical Decision Making Cerebrovascular accident (CVA), unspecified mechanism: acute illness or injury that poses a threat to life or bodily functions Amount and/or Complexity of Data Reviewed Independent Historian: EMS External Data Reviewed: labs, radiology and notes. Labs: ordered. Details: Pending Radiology: ordered. Decision-making details documented in ED Course. ECG/medicine tests: ordered and independent interpretation performed. Discussion of management or test interpretation with external provider(s): Neurovascular Risk Prescription drug management. Decision regarding hospitalization. A [id number] dictation tool was used in the production of this document and all attempts were made for proper editing, but errors may still occur. E036/E036 Madeline Cazares MD 05/08/23 2313 Madelien Cazares MD 05/08/23 2354 Madeline Cazares MD 05/09/23 0154 * Neil Campos RN - 05/08/2023 10:59 PM EDT Pt arrives to CT scanner via medflight as Level A Stroke Alert. LKW: 1300 R sided droop, R sided weakness OSH CT scan: L M2 occlusion 2mg ativan given during transport for tremors and rapid eye fluttering. Pt alert and responsive, VSS ED attending and neurovascular in scanner. * Aarti Crawford RN - 05/08/2023 10:59 PM EDT Bed: E036 Expected date: Expected time: Means of arrival: Comments: honorio documented in this encounterOSWooster [facility]10-27-2023 NoteAcute Coronary Syndrome (ACS): Initial Evaluation and Management: [email or web address] [facility]10-26-2023 History and physical note* Rebecca Velasquez MD - 05/08/2023 11:08 PM EDT Neurovascular Evaluation Note: Evaluation Date: 05/09/2023 Unit: 1062/A Consultation was requested by Dr. Todd Muhammad MD Patient status: Inpatient Length of stay: 0 days Reason for Consult/Chief Complaint: Stroke alert History of Present Illness Pardeep Mark is a 58 y.o. female with PMH significant for reported history of seizures, sarcoma s/p L AKA, mood disorder, opioid use disorder on suboxone, hypertension, prior right basal ganglia stroke, who presents with right facial droop, hemiparesis, decreased sensation, left visual field cut and dysarthria. LKW 05/08/23, 1300 Patient reports that she has history of grand mal and complex partial seizures reportedly captured on EEG that she thinks are 2/2 stroke. 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 Denies missing any doses. History of events is limited: patient remembers being in a garage, feeling lke she was about to have a seizure, and then has no recollection of getting to the hospital. Thinks a neighbor brought her.She feels confused. At OSH, she was seen on telestroke.NIHSS was 12. CTH negative, CTA per radiology - concern for questionable left M2 occlusion. Transferred to [facility]. Per EMS, she had three episodes of eyelid fluttering with generalized twitching while en route, which they treated with 2 mg ativan. Does not appear to have been loaded with Keppra at OSH per recordswe have. Loaded with 4500 mg keppra. In the ED at [facility], NIHSS = 10. CTH -possible left frontal hypodensity. CTP unremarkable. Mental status improved from scanner, in addition to dysarthria when later seen in room. A stroke alert was called for STAT consultation. Time of Level 1 Stroke Alert Activation (Or In House): 230 Arrival Time of Stroke Team : 2301 Time of symptom onset: less than 24 hours Patient Location - Onset of Symptoms: Not in a healthcare setting Patient first presented to an [facility] ED facility: no Last Known Well: Date: 05/08/23 Last Known Well: Time: 1300 Source of information: [facility] medical record Review of Systems: Pertinent items are noted in HPI, all other systems were reviewed and are negative. Neurovascular-specific History / Information Home antiplatelet/anticoagulation therapy: Antiplatelet therapy: Aspirin 81mg Anticoagulation: none Patient Current Risk Factors: Stroke risk factors include hypertension. Prior stroke history: yes Family Hx of Stroke: Parents: no Siblings: no No family history on file. Stroke Diagnostic/Treatment Eligibility Information: Time Based Thrombolytic Eligibility for IV Treatment 1. Last known well: No Lytics not given Stroke Clinical Assessment Information: NIHSS (Provider) Flowsheet Row First Filed Value Provider NIH Stroke Scale NIH Interval (Provider) -- NIH Level of Conciousness (Provider) 0 filed on 05/08/20232309 NIH LOC Questions (Provider) 0 filed on 05/08/20232309 NIH LOC Commands (Provider) 0 filed on 05/08/20232309 NIH Best Gaze (Provider) 0 filed on 05/08/20232309 NIH Visual (Provider) 1 filed on 05/08/20232309 NIH Facial Palsy (Provider) 1 filed on 05/08/20232309 NIH Left Arm Motor (Provider) 0 filed on 05/08/20232309 NIH Right Arm Motor (Provider) 1 filed on 05/08/20232309 NIH Left Leg Motor (Provider) (UN) Amputation or joint fusion filed on 05/08/20232309 NIH Right Leg Motor (Provider) 3 filed on 05/08/20232309 NIH Limb Ataxia (Provider) 0 filed on 05/08/20232309 NIH Sensory (Provider) 1 filed on 05/08/20232309 NIH Best Language (Provider) 1 filed on 05/08/20232309 NIH Dysarthria (Provider) 1 filed on 05/08/20232309 NIH Extinction and Inattention (Provider) 1 filed on 05/08/20232309 NIH Total Score (Provider) 10 filed on 05/08/20232309 Is NIH=0 Within 180 min of Last Known Well Time? -- Stroke Scales Flowsheet Row Most Recent Value Modified [place] Scale Score Premorbid (MRSS) 0 filed on 05/09/2023 0305 NIH Total Score (Provider) 10 filed on 05/08/20232309 Medical History: No past medical history on file. SURGICAL HISTORY: Past Surgical History: Procedure Laterality Date REMOVAL BILIARY DUCT/GALLBLADDER CALCULI/DEBRIS PERCUTANEOUS W/ IMAGE 1997 APPENDECTOMY 1974 HYSTERECTOMY SUBTOTAL ABDOMINAL LAPAROSCOPIC SOCIAL HISTORY: Social History Tobacco Use Smoking status: Never Smokeless tobacco: Never Substance Use Topics Alcohol use: Yes Alcohol/week: 1.0 standard drink of alcohol Types: 1 Glasses of wine per week ALLERGIES: Allergies Allergen Reactions Phenergan [Promethazine] Hives and Itching Compazine [Prochlorperazine] Hives Medications PRIOR TO ARRIVAL MEDS: Prior to Admission medications Medication Sig Start Date End Date Taking? Authorizing Provider Buprenorphine HCl (SUBUTEX SL) Place under tongue. Historical Provider carBAMazepine XR 400 MG Tab SR 12 HR Take 400 mg by mouth 2 times daily. Historical Provider duloxetine [address] Particles capsule DR Take 60 mg by mouth daily. Historical Provider Multiple Vitamin (MULTIVITAMIN) Cap Take 1 capsule by mouth daily. Historical Provider pregabalin 100 MG Cap Take 150 mg by mouth daily. Historical Provider QUEtiapine (SEROQUEL) 100 MG Tab Take 100 mg by mouth 2 times daily. Historical Provider Current Meds: Current Facility Administered Meds: Current Facility-Administered Medications Medication Dose Route Frequency Provider Last Rate Last Admin Acetaminophen (TYLENOL) tablet 325 mg 325 mg Oral Q4H PRN Rebecca Velasquez MD Or Acetaminophen (TYLENOL) tablet 325 mg 325 mg Per NG tube Q4H PRN Rebecca Velasquez MD Or Acetaminophen (TYLENOL) tablet 650 mg 650 mg Oral Q4H PRN Rebecca eVlasquez MD Or Acetaminophen (TYLENOL) tablet 650 mg 650 mg Per NG tube Q4H PRN Rebecca Velasquez MD aspirin chewable tablet 81 mg 81 mg Oral Daily Rebecca Velasquez MD Or aspirin suppository 300 mg 300 mg Rectal Daily Rebecca Velasquez MD Enoxaparin Sodium (LOVENOX) injection 40 mg 40 mg Subcutaneous Q24H Rebecca Velasquez MD hydrALAZINE (APRESOLINE) injection 10 mg 10 mg Intravenous Q1H PRN Rebecca Velasquez MD Or hydrALAZINE (APRESOLINE) injection 20 mg 20 mg Intravenous Q1H PRN Rebecca Velasquez MD Labetalol (NORMODYNE) injection 10 mg 10 mg Intravenous Q1H PRN Rebecca Velaqsuez MD Or Labetalol (NORMODYNE) injection 20 mg 20 mg Intravenous Q1H PRN Rebecca Velasquez MD Ondansetron 4mg/2ml (ZOFRAN) injection 4 mg 4 mg Intravenous Q8H PRN Rebecca Velasquez MD 4 mg at 05/09/23 0247 Polyethylene glycol (MIRALAX) packet 17 g 17 g Oral Daily PRN Rebecca Velasquez MD Or Polyethylene glycol (MIRALAX) packet 17 g 17 g Per NG tube Daily PRN Rebecca Velasquez MD Senna (SENOKOT) tablet 8.6 mg 8.6 mg Oral QAM Rebecca Velasquez MD Or Senna (SENOKOT) tablet 8.6 mg 8.6 mg Per NG tube QAM Rebecca Velasquez MD Scheduled Meds: aspirin 81 mg Oral Daily Or aspirin 300 mg Rectal Daily enoxaparin 40 mg Subcutaneous Q24H Senna 8.6 mg Oral QAM Or Senna 8.6 mg Per NG tube QAM Continuous Infusions: PRN Meds:Acetaminophen OR Acetaminophen OR Acetaminophen OR Acetaminophen, hydrALAZINE OR hydrALAZINE, Labetalol OR Labetalol, Ondansetron 4mg/2ml, Polyethylene glycol OR Polyethylene glycol Vitals Objective Findings: Vital Signs (24hrs): Temp: [98.3 F (36.8 C)-98.7 F (37.1 C)] 98.3 F (36.8 C) Pulse (Heart Rate): [91-110] 94 Resp Rate: [15-23] 15 BP: (115-159)/(68-104) 135/79 O2 Sat (%): [91 %-98 %] 97 % Weight: [90.7 kg (200 lb)-95.1 kg (209 lb 11.2 oz)] 90.7 kg (200 lb) Body mass index is 35.43 kg/m . Lines/Drains/Airways/Wounds: Patient Lines/Drains/Airways Status Active Lines, Drains, Airways, & Wound Overview Name Placement date Placement time Site Days Peripheral IV Line - Single Lumen 05/08/232316 forearm, anterior, left 18 gauge;1 1/4 in length 05/08/232316 -- less than 1 Physical Exam General Physical Exam General: NAD, lying in bed HENT: Normal oropharynx and mucosa. Normal external appearance of ears and nose. CV/Chest: Regular rate and rhythm, normal S1S2 Lungs: No audible wheezing. Normal work of breathing. No accessory muscle use Abdomen: Non distended, non tender Extremities: Warm and well perfused. No appreciable edema, cyanosis or deformity. Skin: No rash. Normal palpation of skin. Musculoskeletal: No joint tenderness. Normal digits and nails by inspection. No clubbing. Neurologic Examination Mental status/Cognition: alert; oriented to month and age; good attention; no apparent neglect; following commands Speech/language:fluent, object naming intact; comprehension, repetition intact Cranial nerves: CN II Cant see fingers wiggling in Left outer quadrant left eye CN III,IV, PERRL. EOMI CN V Facial sensation decreased on R in V1, V2, V3 CN VII R facial droop CN VIII Hearing grossly intact to voice CN IX & X Unable to assess soft palate, moderate dysarthria CN XI Shoulder shrug with full strength on L CN XII Tongue protrudes midline Motor: Normal bulk and tone. - Left arm: no drift - Right arm: slight drift, doesn't hit bed - Left leg: no drift - Right leg: slight movement Sensation: decreased in R face, right arm with extinction Coordination/Complex Motor: no obvious ataxia in arm or leg movements Laboratory Results Diagnostics/Procedures: Labs-CBC WBC/Hgb/Hct/Plts: 12.22/12.9/37.5/242 (05/08 2339) Labs-Chem 7([facility]) Bun/Creat/Cl/CO2/Glucose: 10/0.61/104/25/102 (05/08 2339) Na/K+/Phos/Mg/Ca: 134/3.6/3.3/1.8/8.1 (05/08 2339) Labs-Coags Ptt/Pt/Inr: 26.1/14.1/1.1 (05/08 2339) Additional Labs Lab Results Component Value Date CHOLESTEROL 137 05/08/2023 TRIG 95 05/08/2023 HDL 29 (L) 05/08/2023 LDLCALC 89 05/08/2023 Labs-Hemoglobin A1C No results found for: HGBA1C Imaging: Imaging was not analyzed by jaye [facility]erson [facility] imaging CT Stroke Head: unremarkable CTA Brain/Neck: radiology read- questionable left M2 occlusion CT CEREBRAL PERFUSION ANALYSIS Final Result IMPRESSION: CT perfusion examination is within normal limits I personally viewed and interpreted these images and I have reviewed and approved this report. STROKE HEAD-STROKE ALERT ONLY Final Result IMPRESSION: 1. Small area of hypodensity in the lateral left frontal lobe, may reflect acute left MCA territory infarct, but could also reflect partial volume averaging. 2. No intracranial hemorrhage. Findings were discussed with Dr. Rebecca Velasquez at 2325 on May 08, 2023. I personally viewed and interpreted these images and I have reviewed and approved this report. BRAIN WITHOUT CONTRAST (Results Pending) Assessment/Impression: Pardeep Mark appears to have suffered an ischemic stroke vs Sophia's paresis. Favor Sophia's paresis, given that deficits are improving. May also have pseudoseizures given description of events in EMS. Plan: Right sided weakness, right facial droop - concern for stroke vs Sophia's -Patient is not a candidate for iv thrombolysis due to out of time window* and no thrombectomy due to no LVO -Please admit to neurovascular service PCU, attending Dr. Muhammad. An ischemic stroke without IV thrombolysis order set has been signed and held. -Swallow evaluation prior to any oral intake -Aspirin 81 mg orally or 300 mg rectally -Blood pressure goals with SBP less than 220 -Obtain MRI brain, stroke protocol -ECHO to evaluate cardiac function -Lipid panel, LFTs and HgbA1c to evaluate secondary risk factors for ischemic stroke -Baseline EKG, if not done in ED. Continuous telemetry -PT, OT, Speech and medical social worker consults Seizures - s/p Keppra load 4500 mg - increase Keppra to 1000 mg BID - seizure precautions - Keppra level pending Mood disorder - Cymbalta 90 mg Opioid use disorder - patient reports has been taking Suboxone 8 mg TID, but last fill is suggestive of BID - also on sublocade - Will order suboxone 8 mg BID for now, clarify in the AM HTN -permissive HTN, hold home coreg This plan has been discussed with stroke fellow Dr. Velez and has been communicated to ED team. Rebecca Velasquez MD 05/09/2023 3:20 AM Code Status: Full Code DVT prophylaxis: Lovenox Diet: DIET NPO WITHOUT meds Patient and plan discussed with stroke fellow Dr. Velez Signed, Rebecca Velasquez MD PGY-3, Neurology Associated attestation - Radu Aguilar MD - 05/10/2023 12:04 AM EDT Stroke Attending Addendum (Date of service 05/09/23): I have interviewed and examined the patient with the resident. I have provided a substantive portion of the care for this patient. I personally performed all aspects of the medical decision making for this encounter. I have reviewed the PMH, labs and imaging including MRI's and CT's. I agree with the note below following highlights, additions, and addendums: Subjective: ROS: Pertinent Positives and Negatives are positive for somnolent. Objective: RAY NIHSS 1 HgBA1c: Lab Results Component Value Date HGBA1C 6.3 (H) 05/08/2023 LDL: Lab Results Component Value Date LDLCALC 89 05/08/2023 Assessment & Plan Assessment: The patient is a 58 y.o. R-handed female who had a seizure with Todds. Concern for stroke got admitted. MRI without CVA. Plan : Inc Keppra. Follow up with gen neuro. DVT prophylaxis with SCDs and lovenox SQ. Stroke education and smoking cessation. 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 Dispo - DC aubrey Aguilar MD [facility] Work Phone: 1(240) 395-890210-26-2023 History and physical note* Rebecca Velasquez MD - 05/08/2023 11:08 PM EDT Neurovascular Evaluation Note: Evaluation Date: 05/09/2023 Unit: 1062/A Consultation was requested by Dr. Todd Muhammad MD Patient status: Inpatient Length of stay: 0 days Reason for Consult/Chief Complaint: Stroke alert History of Present Illness Pardeep Mark is a 58 y.o. female with PMH significant for reported history of seizures, sarcoma s/p L AKA, mood disorder, opioid use disorder on suboxone, hypertension, prior right basal ganglia stroke, who presents with right facial droop, hemiparesis, decreased sensation, left visual field cut and dysarthria. LKW 05/08/23, 1300 Patient reports that she has history of grand mal and complex partial seizures reportedly captured on EEG that she thinks are 2/2 stroke. 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 Denies missing any doses. History of events is limited: patient remembers being in a garage, feeling lke she was about to have a seizure, and then has no recollection of getting to the hospital. Thinks a neighbor brought her.She feels confused. At OSH, she was seen on telestroke.NIHSS was 12. CTH negative, CTA per radiology - concern for questionable left M2 occlusion. Transferred to [facility]. Per EMS, she had three episodes of eyelid fluttering with generalized twitching while en route, which they treated with 2 mg ativan. Does not appear to have been loaded with Keppra at OSH per recordswe have. Loaded with 4500 mg keppra. In the ED at [facility], NIHSS = 10. CTH -possible left frontal hypodensity. CTP unremarkable. Mental status improved from scanner, in addition to dysarthria when later seen in room. A stroke alert was called for STAT consultation. Time of Level 1 Stroke Alert Activation (Or In House): 2301 Arrival Time of Stroke Team : 2301 Time of symptom onset: less than 24 hours Patient Location - Onset of Symptoms: Not in a healthcare setting Patient first presented to an [facility] ED facility: no Last Known Well: Date: 05/08/23 Last Known Well: Time: 1300 Source of information: [facility] medical record Review of Systems: Pertinent items are noted in HPI, all other systems were reviewed and are negative. Neurovascular-specific History / Information Home antiplatelet/anticoagulation therapy: Antiplatelet therapy: Aspirin 81mg Anticoagulation: none Patient Current Risk Factors: Stroke risk factors include hypertension. Prior stroke history: yes Family Hx of Stroke: Parents: no Siblings: no No family history on file. Stroke Diagnostic/Treatment Eligibility Information: Time Based Thrombolytic Eligibility for IV Treatment 1. Last known well: No Lytics not given Stroke Clinical Assessment Information: NIHSS (Provider) Flowsheet Row First Filed Value Provider NIH Stroke Scale NIH Interval (Provider) -- NIH Level of Conciousness (Provider) 0 filed on 05/08/20232309 NIH LOC Questions (Provider) 0 filed on 05/08/20232309 NIH LOC Commands (Provider) 0 filed on 05/08/20232309 NIH Best Gaze (Provider) 0 filed on 05/08/20232309 NIH Visual (Provider) 1 filed on 05/08/20232309 NIH Facial Palsy (Provider) 1 filed on 05/08/20232309 NIH Left Arm Motor (Provider) 0 filed on 05/08/20232309 NIH Right Arm Motor (Provider) 1 filed on 05/08/20232309 NIH Left Leg Motor (Provider) (UN) Amputation or joint fusion filed on 05/08/20232309 NIH Right Leg Motor (Provider) 3 filed on 05/08/20232309 NIH Limb Ataxia (Provider) 0 filed on 05/08/20232309 NIH Sensory (Provider) 1 filed on 05/08/20232309 NIH Best Language (Provider) 1 filed on 05/08/20232309 NIH Dysarthria (Provider) 1 filed on 05/08/20232309 NIH Extinction and Inattention (Provider) 1 filed on 05/08/20232309 NIH Total Score (Provider) 10 filed on 05/08/20232309 Is NIH=0 Within 180 min of Last Known Well Time? -- Stroke Scales Flowsheet Row Most Recent Value Modified [place] Scale Score Premorbid (MRSS) 0 filed on 05/09/2023 0305 NIH Total Score (Provider) 10 filed on 05/08/20232309 Medical History: No past medical history on file. SURGICAL HISTORY: Past Surgical History: Procedure Laterality Date REMOVAL BILIARY DUCT/GALLBLADDER CALCULI/DEBRIS PERCUTANEOUS W/ IMAGE 1998 APPENDECTOMY 1974 HYSTERECTOMY SUBTOTAL ABDOMINAL LAPAROSCOPIC SOCIAL HISTORY: Social History Tobacco Use Smoking status: Never Smokeless tobacco: Never Substance Use Topics Alcohol use: Yes Alcohol/week: 1.0 standard drink of alcohol Types: 1 Glasses of wine per week ALLERGIES: Allergies Allergen Reactions Phenergan [Promethazine] Hives and Itching Compazine [Prochlorperazine] Hives Medications PRIOR TO ARRIVAL MEDS: Prior to Admission medications Medication Sig Start Date End Date Taking? Authorizing Provider Buprenorphine HCl (SUBUTEX SL) Place under tongue. Historical Provider carBAMazepine XR 400 MG Tab SR 12 HR Take 400 mg by mouth 2 times daily. Historical Provider duloxetine [address] Particles capsule DR Take 60 mg by mouth daily. Historical Provider Multiple Vitamin (MULTIVITAMIN) Cap Take 1 capsule by mouth daily. Historical Provider pregabalin 100 MG Cap Take 150 mg by mouth daily. Historical Provider QUEtiapine (SEROQUEL) 100 MG Tab Take 100 mg by mouth 2 times daily. Historical Provider Current Meds: Current Facility Administered Meds: Current Facility-Administered Medications Medication Dose Route Frequency Provider Last Rate Last Admin Acetaminophen (TYLENOL) tablet 325 mg 325 mg Oral Q4H PRN Rebecca Velasquez MD Or Acetaminophen (TYLENOL) tablet 325 mg 325 mg Per NG tube Q4H PRN Rebecca Velasquez MD Or Acetaminophen (TYLENOL) tablet 650 mg 650 mg Oral Q4H PRN Rebecca Velasquez MD Or Acetaminophen (TYLENOL) tablet 650 mg 650 mg Per NG tube Q4H PRN Rebecca Velasquez MD aspirin chewable tablet 81 mg 81 mg Oral Daily Rebecca Velasquez MD Or aspirin suppository 300 mg 300 mg Rectal Daily Rebecca Velasquez MD Enoxaparin Sodium (LOVENOX) injection 40 mg 40 mg Subcutaneous Q24H Rebecca Velasquez MD hydrALAZINE (APRESOLINE) injection 10 mg 10 mg Intravenous Q1H PRN Rebecca Velasquez MD Or hydrALAZINE (APRESOLINE) injection 20 mg 20 mg Intravenous Q1H PRN Rebecca Velasquez MD Labetalol (NORMODYNE) injection 10 mg 10 mg Intravenous Q1H PRN Rebecca Velasquez MD Or Labetalol (NORMODYNE) injection 20 mg 20 mg Intravenous Q1H PRN Rebecca Velasquez MD Ondansetron 4mg/2ml (ZOFRAN) injection 4 mg 4 mg Intravenous Q8H PRN Rebecca Velasquez MD 4 mg at 05/09/23 0247 Polyethylene glycol (MIRALAX) packet 17 g 17 g Oral Daily PRN Rebecca Velasquez MD Or Polyethylene glycol (MIRALAX) packet 17 g 17 g Per NG tube Daily PRN Rebecca Velasquez MD Senna (SENOKOT) tablet 8.6 mg 8.6 mg Oral QAM Rebecca Velasquez MD Or Senna (SENOKOT) tablet 8.6 mg 8.6 mg Per NG tube QAM Rebecca Velasquez MD Scheduled Meds: aspirin 81 mg Oral Daily Or aspirin 300 mg Rectal Daily enoxaparin 40 mg Subcutaneous Q24H Senna 8.6 mg Oral QAM Or Senna 8.6 mg Per NG tube QAM Continuous Infusions: PRN Meds:Acetaminophen OR Acetaminophen OR Acetaminophen OR Acetaminophen, hydrALAZINE OR hydrALAZINE, Labetalol OR Labetalol, Ondansetron 4mg/2ml, Polyethylene glycol OR Polyethylene glycol Vitals Objective Findings: Vital Signs (24hrs): Temp: [98.3 F (36.8 C)-98.7 F (37.1 C)] 98.3 F (36.8 C) Pulse (Heart Rate): [91-110] 94 Resp Rate: [15-23] 15 BP: (115-159)/(68-104) 135/79 O2 Sat (%): [91 %-98 %] 97 % Weight: [90.7 kg (200 lb)-95.1 kg (209 lb 11.2 oz)] 90.7 kg (200 lb) Body mass index is 35.43 kg/m . Lines/Drains/Airways/Wounds: Patient Lines/Drains/Airways Status Active Lines, Drains, Airways, & Wound Overview Name Placement date Placement time Site Days Peripheral IV Line - Single Lumen 05/08/232316 forearm, anterior, left 18 gauge;1 1/4 in length 05/08/232316 -- less than 1 Physical Exam General Physical Exam General: NAD, lying in bed HENT: Normal oropharynx and mucosa. Normal external appearance of ears and nose. CV/Chest: Regular rate and rhythm, normal S1S2 Lungs: No audible wheezing. Normal work of breathing. No accessory muscle use Abdomen: Non distended, non tender Extremities: Warm and well perfused. No appreciable edema, cyanosis or deformity. Skin: No rash. Normal palpation of skin. Musculoskeletal: No joint tenderness. Normal digits and nails by inspection. No clubbing. Neurologic Examination Mental status/Cognition: alert; oriented to month and age; good attention; no apparent neglect; following commands Speech/language:fluent, object naming intact; comprehension, repetition intact Cranial nerves: CN II Cant see fingers wiggling in Left outer quadrant left eye CN III,IV, PERRL. EOMI CN V Facial sensation decreased on R in V1, V2, V3 CN VII R facial droop CN VIII Hearing grossly intact to voice CN IX & X Unable to assess soft palate, moderate dysarthria CN XI Shoulder shrug with full strength on L CN XII Tongue protrudes midline Motor: Normal bulk and tone. - Left arm: no drift - Right arm: slight drift, doesn't hit bed - Left leg: no drift - Right leg: slight movement Sensation: decreased in R face, right arm with extinction Coordination/Complex Motor: no obvious ataxia in arm or leg movements Laboratory Results Diagnostics/Procedures: Labs-CBC WBC/Hgb/Hct/Plts: 12.22/12.9/37.5/242 (05/08 2339) Labs-Chem 7([facility]) Bun/Creat/Cl/CO2/Glucose: 10/0.61/104/25/102 (05/08 2339) Na/K+/Phos/Mg/Ca: 134/3.6/3.3/1.8/8.1 (05/08 2339) Labs-Coags Ptt/Pt/Inr: 26.1/14.1/1.1 (05/08 2339) Additional Labs Lab Results Component Value Date CHOLESTEROL 137 05/08/2023 TRIG 95 05/08/2023 HDL 29 (L) 05/08/2023 LDLCALC 89 05/08/2023 Labs-Hemoglobin A1C No results found for: HGBA1C Imaging: Imaging was not analyzed by Dangelo, jaye [facility] imaging CT Stroke Head: unremarkable CTA Brain/Neck: radiology read- questionable left M2 occlusion CT CEREBRAL PERFUSION ANALYSIS Final Result IMPRESSION: CT perfusion examination is within normal limits I personally viewed and interpreted these images and I have reviewed and approved this report. STROKE HEAD-STROKE ALERT ONLY Final Result IMPRESSION: 1. Small area of hypodensity in the lateral left frontal lobe, may reflect acute left MCA territory infarct, but could also reflect partial volume averaging. 2. No intracranial hemorrhage. Findings were discussed with Dr. Rebecca Velasquez at 2325 on May 08, 2023. I personally viewed and interpreted these images and I have reviewed and approved this report. BRAIN WITHOUT CONTRAST (Results Pending) Assessment/Impression: Pardeep Mark appears to have suffered an ischemic stroke vs Sophia's paresis. Favor Sophia's paresis, given that deficits are improving. May also have pseudoseizures given description of events in EMS. Plan: Right sided weakness, right facial droop - concern for stroke vs Sophia's -Patient is not a candidate for iv thrombolysis due to out of time window* and no thrombectomy due to no LVO -Please admit to neurovascular service PCU, attending Dr. Muhammad. An ischemic stroke without IV thrombolysis order set has been signed and held. -Swallow evaluation prior to any oral intake -Aspirin 81 mg orally or 300 mg rectally -Blood pressure goals with SBP less than 220 -Obtain MRI brain, stroke protocol -ECHO to evaluate cardiac function -Lipid panel, LFTs and HgbA1c to evaluate secondary risk factors for ischemic stroke -Baseline EKG, if not done in ED. Continuous telemetry -PT, OT, Speech and medical social worker consults Seizures - s/p Keppra load 4500 mg - increase Keppra to 1000 mg BID - seizure precautions - Keppra level pending Mood disorder - Cymbalta 90 mg Opioid use disorder - patient reports has been taking Suboxone 8 mg TID, but last fill is suggestive of BID - also on sublocade - Will order suboxone 8 mg BID for now, clarify in the AM HTN -permissive HTN, hold home coreg This plan has been discussed with stroke fellow Dr. Velez and has been communicated to ED team. Rebecca Velasquez MD 05/09/2023 3:20 AM Code Status: Full Code DVT prophylaxis: Lovenox Diet: DIET NPO WITHOUT meds Patient and plan discussed with stroke fellow Dr. Velez Signed, Rebecca Velasquez MD PGY-3, Neurology Associated attestation - Radu Aguilar MD - 05/10/2023 12:04 AM EDT Stroke Attending Addendum (Date of service 05/09/23): I have interviewed and examined the patient with the resident. I have provided a substantive portion of the care for this patient. I personally performed all aspects of the medical decision making for this encounter. I have reviewed the PMH, labs and imaging including MRI's and CT's. I agree with the note below following highlights, additions, and addendums: Subjective: ROS: Pertinent Positives and Negatives are positive for somnolent. Objective: RAY NIHSS 1 HgBA1c: Lab Results Component Value Date HGBA1C 6.3 (H) 05/08/2023 LDL: Lab Results Component Value Date LDLCALC 89 05/08/2023 Assessment & Plan Assessment: The patient is a 58 y.o. R-handed female who had a seizure with Todds. Concern for stroke got admitted. MRI without CVA. Plan : Inc [place]. Follow up with gen neuro. DVT prophylaxis with SCDs and lovenox SQ. Stroke education and smoking cessation. 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 Dispo - DC aubrey Aguilar [facility] Emergency department Note* Madeline Cazares MD - 05/08/2023 11:07 PM EDT Images from the original note were not included. Emergency Department Encounter History No chief complaint on file. The history is provided by the patient, medical records and the EMS personnel. The history is limited by the condition of the patient. Ms. Mark is a 58 y.o. Guamanian-speaking F PMH seizures (?pseudoseizures - pt reports confirmed complex partial seizures on video EEG Dx OSH) prior LLE amputation TIAs on subutex transfer from [facility] as a stroke alert. LKW approx 1 PM. Hx limited pt states she doesn't remember details. Pt thinks she was in the garage and maybe had a seizure. Doesn't know how she go to the other hospital. Denies pain/injuries. Lives alone but a neighbor reportedly found her in her garage. OSH CTA possible R M2 occlusion Denies pain/injuries from possible fall. OSH glucose was 129 EtOH was negative Ammonia was WNL OSH records - see scan in media tab. Excerpts copied below for reference. No past medical history on file. Past Surgical History: Procedure Laterality Date REMOVAL BILIARY DUCT/GALLBLADDER CALCULI/DEBRIS PERCUTANEOUS W/ IMAGE 1997 APPENDECTOMY 1974 HYSTERECTOMY SUBTOTAL ABDOMINAL LAPAROSCOPIC No family history on file. Review of Systems Unable to perform ROS: Acuity of condition Constitutional: Negative for fever. HENT: Positive for voice change (slurred speech/facial droop). Eyes: Negative for photophobia. Respiratory: Negative for shortness of breath. Cardiovascular: Negative for chest pain. Gastrointestinal: Negative for abdominal pain. Musculoskeletal: Negative for arthralgias and myalgias. Skin: Negative for color change and wound. Neurological: Positive for seizures, numbness and headaches. Physical Exam BP 159/79 Pulse 102 Temp 98.7 F (37.1 C) (Axillary) Resp 20 Ht 1.6 m (5' 3) Wt 95.1 kg (209 lb 11.2 oz) SpO2 98% BMI 37.15 kg/m Temp: [98.7 F (37.1 C)] 98.7 F (37.1 C) Pulse (Heart Rate): [94-110] 94 Resp Rate: [17-23] 23 BP: (130-159)/(68-104) 130/68 O2 Sat (%): [94 %-98 %] 94 % Weight: [95.1 kg (209 lb 11.2 oz)] 95.1 kg (209 lb 11.2 oz) Physical Exam Constitutional: General: She is awake. She is not in acute distress. Appearance: She is obese. She is not toxic-appearing or diaphoretic. HENT: Head: Atraumatic. Nose: No rhinorrhea. Right Nostril: No epistaxis. Left Nostril: No epistaxis. Mouth/Throat: Lips: [place]. Mouth: Mucous membranes are moist. No lacerations. Eyes: General: No scleral icterus. Conjunctiva/sclera: Conjunctivae normal. Right eye: Right conjunctiva is not injected. Left eye: Left conjunctiva is not injected. Cardiovascular: Rate and Rhythm: Regular rhythm. Tachycardia present. Pulmonary: Effort: Pulmonary effort is normal. No tachypnea, bradypnea, accessory muscle usage, prolonged expiration, respiratory distress or retractions. Abdominal: Palpations: Abdomen is soft. Tenderness: There is no abdominal tenderness. Musculoskeletal: Cervical back: Neck supple. Comments: Prior LLE amputation No TTP BL scaphoid, no obvious bruising/deformities BUE or RLE. Absent LLE. Skin: General: Skin is warm. Coloration: Skin is not jaundiced. Findings: No ecchymosis. Neurological: Mental Status: She is alert. Sensory: Sensory deficit present. Motor: No tremor or seizure activity. Comments: See NIHSS Reports sensory difference prox vs distal RLE, absent LLE, able to keep RUE from dropping with encouragement. Slurred speech. R lower droop; R sensory change lower face more dull than L side. Forehead sensory similar BL. Psychiatric: Attention and Perception: Attention normal. Mood and Affect: Mood normal. Behavior: Behavior is cooperative. Cognition and Memory: Memory is impaired. Comments: Talkative, pleasant. Doesn't recall details from earlier today prior to OSH eval. ED Course ED Course as of 05/09/23 0021 Myesha May 08, [address] STROKE HEAD-STROKE ALERT ONLY PRELIMINARY RESULT IMPRESSION: 1. Small area of hypodensity in the lateral left frontal lobe, concerning for acute left MCA territory infarct, but could also reflect partial volume averaging. 2. No intracranial hemorrhage. Findings were discussed with Dr. Rebecca Velasquez at 2325 on May 08, 2023. 2342 CT CEREBRAL PERFUSION ANALYSIS IMPRESSION: CT perfusion examination is within normal limits [address] STROKE HEAD-STROKE ALERT ONLY IMPRESSION: 1. Small area of hypodensity in the lateral left frontal lobe, may reflect acute left MCA territory infarct, but could also reflect partial volume averaging. 2. No intracranial hemorrhage. Findings were discussed with Dr. Rebecca Velasquez at 2325 on May 08, 2023. I personally viewed and interpreted these images and I have reviewed and approved this report. 5 Final read 2348 Per Neurovascular: Admit to neurovascular. Attending: Dr Todd Muhammad. Location: [facility]. Level of care: PCU. 2350 Discussing w/ pharmacist pt home Subutex -- last fill appears to be a 7d supply at the end of March. Pharmacy looking into home meds/verifying med/dose. Will order once clarified what home meds are. Pt states she takes the 8mg SL BID and is due for tonight's dose. Hx multiple surgeries so previously on oxycodone etc now stable on Subutex per pt. FriMay 09, 2023 0020 Pt updated w/ available results and plan. 0020 CK: 63 0020 Troponin High Sensitivity: 4 0020 WBC(!): 12.22 0020 HEMOGLOBIN: 12.9 0020 PLATELET Count: 242 0020 MAGNESIUM: 1.8 0020 BUN: 10 0020 Creatinine: 0.61 0020 Glucose(!): 102 0020 SODIUM(!): 134 0020 CHLORIDE: 104 0020 POTASSIUM: 3.6 0020 ANION GAP: 9 0020 CALCIUM(!): 8.1 0020 HEPATIC FUNCTION PANEL(!) WNL except protein 6.1 (L) 0021 INR: 1.1 Transfer as stroke alert possible LVO eval w neurovascular on arrival in CT scanner CT head CT perfusion Had CTA OSH Labs Seizure precautions Stroke orders/parameters Home meds Denies injuries related to possible fall earlier today. Will require admission Please also see ED course above Update: Admit Neurovascular PCU [facility] Dr. Muhammad s/o to oncoming team. Pt is admitted w/ service. Impression: CVA vs TIA vs Sophia's Paralysis vs other DICKEY Hx seizures At risk for falls Prolonged QTc I have spent 40 minutes of discontinuous time providing critical care. This time is exclusive of procedures. This time may have included but is not limited to: my initialevaluation, reassessments to evaluate response to treatments and changes in condition, supervision/coordination of care, ordering/review of diagnostic and radiologic studies/results, medication select ion, interpretation of EKGs/blood gas results if applicable, review of available outside/prior medical records, documentation, and discussion with care team and consultants. [x] Available outside records - focused review [x] I personally viewed available imaging - PACS / Xiao [] Recent DC summary, consults, and/or relevant outpatient documentation reviewed [x] Discussed with dynamics ax consultant(s) [x] Verbal report from EMS [x] EMS runsheet not available at time of staffing/evaluation Billing/Coding required documentation: Medical Decision Making Cerebrovascular accident (CVA), unspecified mechanism: acute illness or injury that poses a threat to life or bodily functions Amount and/or Complexity of Data Reviewed Independent Historian: EMS External Data Reviewed: labs, radiology and notes. Labs: ordered. Details: Pending Radiology: ordered. Decision-making details documented in ED Course. ECG/medicine tests: ordered and independent interpretation performed. Discussion of management or test interpretation with external provider(s): Neurovascular Risk Prescription drug management. Decision regarding hospitalization. A [id number] dictation tool was used in the production of this document and all attempts were made for proper editing, but errors may still occur. E036/E036 Madeline Cazares MD 05/08/23 2313 Madeline Cazares MD 05/08/23 0334 Madeline Cazares MD 05/09/23 0154 [facility]* Neil Campos RN - 05/08/2023 10:59 PM EDT Pt arrives to CT scanner via medflight as Level A Stroke Alert. LKW: 1300 R sided droop, R sided weakness OSH CT scan: L M2 occlusion 2mg ativan given during transport for tremors and rapid eye fluttering. Pt alert and responsive, VSS ED attending and neurovascular in scanner. [facility]10[facility] Emergency department Note* Aarti Crawford RN - 05/08/2023 10:59 PM EDT Bed: E036 Expected date: Expected time: Means of arrival: Comments: [facility] NoteHNO ID: [id number] Author: Carol Gamez MD Service: ? Author Type: Physician Type: Progress Notes Filed: 11/11/2022 12:05 PM Note Text: [facility] Patient Name: Pardeep RAMIRES Date of : 1965 INITIAL EPILEPSY CLINIC NOTE 11/11/2022 10:00 AM CHIEF COMPLAINT: New Patient HISTORY OF PRESENT ILLNESS Ms. Mark is a 57 year old right-handed female seen in [facility] for initial consultation. At today's visit, the patient is accompanied by: daughter, granddaughter Handedness: right-handed Age of onset: 30 years Seizure History and Evolution 57 year old woman presents with recurrent events. History is summarized as follows: - At 30 years of age, she had episodes of losing speech, slurring words, feels out of it, and exhausted afterward with UI and BI. She would also bite the middle of her tongue and bleed from it. She also recalls an aura of an unpleasant smell. - She saw a neurologist in [place] and did an 8-hour video EEG at [facility] that she reports captured an episode. The test was cut short following the captured event and started on carbamazepine for it. - Sometime later around age [age] years, she was evaluated at [facility] with an EMU that did not capture the events. She was told that the EEG did not show any epilepsy related findings and continued CBZ. 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 - She took CBZ for 20 years until about two years ago due to frequent supratherapeutic CBZ levels, her PCP decided to trial without medication. It was weaned off over one year and has been off CBZ for the last year. - In Fall of 2020, she was admitted for possible overdose on pain medications and Benadryl. The possibility of a suicidal attempt was also entertained. However, the patient denied this and reports taking medications by mistake. She was told at the time that she has a history of chronic TIA due to findings on MRI brain. - On 07/14/22 she was found down by her neighbor around 7 am. She dislocated her right shoulder and injured her right wrist requiring a fasciotomy. She has no recollection of the whole event. Apparently, she had woken up and checked her Facebook. She then took the puppy for a walk and fell in the garage from about 3-4 am until she was found at 7 am. She was taken to [place] and then transferred to [facility] on 07/15/22. - She was readmitted for cellulitis from 07/24/22-08/08/22 and had a second event in the hospital diagnosed as a seizure and started on LEV. - The third admission was 08/14/22-08/15/22 for swelling without incident. - The fourth admission was 10/05-10/14 when she had the third event. Pseudoseizures were entertained as a possibility. - Then around October 20, she had the fourth event followed by a fifth event at her grandson's birthday republican. - The sixth one was at [facility] ED. Her daughter had a video of the event that I was able to see. She appeared unresponsive and shaking. - The seventh one was at the psychiatric hospital where she was admitted for depression and possible withdrawal from buprenorphine. She was on pain medications for a long time. 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 Since starting Keppra, episodes have continued and agreed that it was not helping. She is not driving now and her main goal is to return to driving. She reports a history of PTSD. She had a divorce about three years ago. Total # of Current Anti-seizure Medications: 1 Side Effects to Current Anti-seizure Medications: none Seizure Frequency at First Visit: 7 per 6 months Longest Seizure-free Interval: 15 years Number of seizure types: 1 Hx of generalized tonic-clonic seizures: Yes Tongue bite: Yes Urine or Bowel Incontinence: Yes Triggers: unknown Postictal Deficits: No Memory complaints: mild Status Epilepticus or clusters: No Postictal Agitation: No Significant Injuries from Seizures: recent unwitnessed fall on 07/14/22 is not clear if seizure related to mechanical fall or other Seizure-related driving accidents: No Driving: No Lives Alone: Yes ED Visits in Last 3 Months: Yes Hospitalizations in Last 3 Months: Yes Highest Level of Education: Associate's and/or Bachelor's degree 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 levETIRAcetam (KEPPRA) 750 mg tablet Take 1 tablet by mouth twice daily. Prior Anti-seizure Therapies: Trial Adequacy: Max Daily Dose Achieved: Side Effects: Effectiveness: Comments: Carbamazepine Gabapentin, other use Levetiracetam Pregabalin, other use Comorbidities: M (more content not included)...[facility]04-11-2023 NoteHNO ID: [id number] Author: Chapis Jin APRN.PURSE SEINING HAND Service: ? Author Type: Nurse Practitioner Type: Progress Notes Filed: 10/22/2022 12:47 PM Note Text: [facility] Review of Records Patient: Pardeep Mark Address: [address] [place] [address] [place] [id number] Impression: Review of records for Pardeep Mark, a 57 year old female, being referred by Self to Dr. Carol Gamez for further evaluation and treatment. Patient has previously diagnosed seizures. EEG from 2022 reported mild to moderate diffuse encephalopathy but no epileptiform activity. MRI from 2022 reported no acute findings. Patient has trialed 2 AEDs. As she has recently had 2 multi-day BEM evaluations this year, recommend visit with Dr. Gamez for consultation Summary: Onset: 20 years ago Recent Seizure Frequency: Recurred July 2022 and is not experiencing them daily Seizure Description(s) Available: Type A: Falls over, whole body tremors, making noises, eyes closed Duration: 7 - 15 minutes Current AED(s): Levetiracetam Previous AED(s): Carbamazepine PMH: cellulitis right hand, left leg amputation, stroke, obesity, HTN, chronic pain PRIOR EVALUATIONS: [address] [place] [address] Bedside EEG ([facility], 08/05/2022-08/07/2022): EEG is consistent with the diagnosis of a a moderate diffuse encephalopathy. No epileptiform discharges or EEG seizures were seen during this recording Bedside EEG ([facility], 10/07/2022-10/09/2022): EEG is consistent with the diagnosis of a mild to moderate diffuse encephalopathy. No epileptiform discharges or EEG seizures were seen during this recording MRI brain wo/w contrast ([facility], 08/07/2022): No acute findings or abnormal intracranial enhancement. 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 Gamez - Additional testing to be considered by epilepsy clinicians Signed: Chapis Jin APRN.PURSE SEINING HAND October 22, [address] Mccarty for review and recommendations. MD Recommendations (as discussed with Dr. Mccarty): - Please proceed with the above plan.[facility]04-03-2023 Note [facility]04-03-2023 [facility] 10-14-2022 [facility]04-02-2023 NoteHNO ID: [id number] Author: Interface Note Service: ? Author Type: ? Type: Progress Notes Filed: 10/13/2022 1:56 AM Note Text: Epic Scheduled Downtime: 10/13/2022 1:00:00 AM to 10/13/2022 1:46:00 [facility]04-01-2023 NoteHNO ID: [id number] Author: Kassi Sánchez RN Service: Nursing Author Type: Registered Nurse Type: Nursing Progress Note Filed: 10/12/2022 10:37 AM Note Text: Pt stable but remains postictal.[facility]04-01-2023 [facility]04-01-2023 NoteHNO ID: [id number] Author: Kassi Sánchez RN Service: Nursing Author Type: Registered Nurse Type: Nursing Progress Note Filed: 10/12/2022 10:35 AM Note Text: Rapid response team at the bedside, pt still having seizure like activity.[facility]04-01-2023 NoteHNO ID: [id number] Author: Gorjana Princess, RN Service: Nursing Author Type: Registered Nurse Type: Nursing Progress Note Filed: 10/12/2022 9:57 AM Note Text: Rapid response team called, RN remains at the bedside.[facility]03-31-2023 [facility]03-31-2023 [facility]03-30-2023 [facility]03-30-2023 [facility]03-30-2023 [facility]03-30-2023 Note [facility]03-29-2023 [facility] 10-09-2022 [facility]03-28-2023 [facility]03-28-2023 [facility]03-27-2023 [facility]03-27-2023 [facility]03-27-2023 [facility]03-27-2023 [facility]03-26-2023 Note [facility]03-26-2023 [facility] 10-04-2022 [facility]02-03-2023 [facility]02-02-2023 [facility]02-02-2023 [facility]02-01-2023 [facility]02-01-2023 [facility]01-26-2023 [facility]01[facility]26-2023 Note [facility]01-26-2023 [facility] 08-07-2022 [facility]01-25-2023 [facility]01-25-2023 [facility]01-24-2023 [facility]01-24-2023 [facility]01-23-2023 [facility]01-23-2023 [facility]01-23-2023 Note [facility]01-23-2023 [facility] 08-04-2022 [facility]01-21-2023 [facility]01-21-2023 [facility]01-20-2023 [facility]01-20-2023 [facility]01-20-2023 [facility]01-19-2023 [facility]01-19-2023 Note [facility]01-18-2023 NoteHNO ID: [id number] Author: Marlene Singh RN Service: ? Author Type: Registered Nurse Type: Nursing Progress Note Filed: 07/31/2022 4:40 PM Note Text: Pt resting in bed C/o mild pain. Scheduled pain meds given. Will continue to monitor.[facility]01-18-2023 [facility]01-17-2023 [facility]01-17-2023 [facility]01-16-2023 [facility]01-16-2023 [facility]01-15-2023 [facility]01-15-2023 Note [facility]01-14-2023 [facility] 07-27-2022 [facility]01-14-2023 [facility]01-13-2023 [facility]01-13-2023 [facility]01-13-2023 [facility]01-13-2023 [facility]01-12-2023 [facility]01-12-2023 Note HNO ID: [id number] Author: Marlene Singh RN Service: ? Author Type: Registered Nurse Type: Nursing Progress Note Filed: 07/25/2022 12:51 PM Note Text: Pt resting in bed. Plan for today is pain management. Will continue to monitor.[facility]01-12-2023 [facility] 07-24-2022 NoteHNO ID: [id number] Author: Marlene Singh RN Service: ? Author Type: Registered Nurse Type: Nursing Progress Note Filed: 07/24/2022 6:10 PM Note Text: Pt temp 38.1C. Spoke with Dr Lloyd. Instructed to give tylenol and continue to monitor.[facility]01-11-2023 [facility]01-07-2023 [facility]01-07-2023 [facility]01-06-2023 [facility]01-06-2023 Note [facility]01-06-2023 [facility] 07-19-2022 [facility]01-05-2023 [facility]01-05-2023 [facility]01-05-2023 [facility]01-04-2023 [facility]01-03-2023 Note [facility]01-03-2023 [facility] Evaluation note* Diagnosis Cerebrovascular accident (CVA), unspecified mechanism- Primary Right sided weakness Muscle weakness (generalized) Transient alteration of awareness Transient alteration of awareness documented in this encounter [facility] Diagnosis Seizure (CMS/HCC V24, CMS/HCC V28)- Primary Other convulsions documented in this encounter [facility] course Narrative No data available for this section [facility] Discharge instructions* Attachments The following attachments cannot be sent through Care Everywhere. * [facility]izure ([place]) [facility] Family History No Family History Records FoundNo Family History Records FoundNo Family History Records FoundNo Family History Records FoundNo Family History Records FoundNo Family History Records FoundNo Family History Records FoundNo Family History Records Found No data available for this section No data available for this section No Family History Records FoundNo Family History Records FoundNo Family History Records Found Advance Directives No Advanced Directives Records FoundDocuments on File Type Date Recorded Patient Pyridine Operator Expl anation HealthCare Power of Bonderite Operator 05/11/2023 HealthCare Power of Bonderite Operator 12/09/2013 Latest Code Status on File Code Status Date Activated Date Inactivated Comments Full Code 05/09/2023 12:21 AM Healthcare Agents on File Name Relationship Healthcare Agent Relationship Communication Caprice Colon Child Health Care Agent Cj Mark Child First Alternate Health Care Agent Dr Darinel Mark Child Second Alternate Health Care Agent Reason for Referral Specialty Diagnoses / Procedures Referred By Jan jameson Referred To Contact Physical Therapy Diagnoses Right sided weakness Transient alteration of awareness Gerhard Campos MD [address] [place] [address] Referral ID Status Reason Start Date Expiration Date V isits Requested Visits Authorized [id number] New Request 05/13/2023 06/06/2024 1 1 Scheduling Instructions [facility] [address] [facility] 2nd [place] [address] Fax [facility] (Neck [facility] Back Therapy) [address] [place] [address] FAX [facility] [address] [address] FAX [facility]patient [facility] [address] [facility], [address] [place] [address] FAX [facility] [address] [place] [address] FAX [facility] [address] [facility] [place] [address] FAX [facility] [address] [place] [address] FAX Outpatient [facility] Outpatient [facility] [address], [address] [place] [address] FAX [facility] [address] [facility], [address] [place] [address] FAX [facility] [address], Room: [address] [address] [phone] FAX [facility] [address] [facility], [address] [place] [address] FAX [facility] [address] [place] [address] FAX [facility] [place] [address], [address] [place] [address] FAX [facility] [address] [facility], [address] [place] [address] [phone] FAX [facility]patient [facility] [address] [facility], [address] [place] [address] FAX [facility] [address] [facility], [address] [place] [address] FAX [facility] [address] [facility] [place] [address] [phone] FAX [facility] [address] [place] [address] [phone] FAX Outpatient Rehabilitation Outpatient [facility] [address], [address] [place] [address] [phone] FAX [facility] [place] [address] [place] [address] [phone] FAX Outpatient Care [address] [address] [phone] FAX [facility], Room [address] [place] [address] FAX Specialty Diagnoses / Procedures Referred By Contac t Referred To Contact Occupational Therapy Diagnoses Right sided weakness Transient alteration of awareness Gerhard Campos MD [address] [place] [address] Referral ID Status Reason Start Date Expiration Date V isits Requested Visits Authorized [id number] New Request 05/13/2023 06/06/2024 1 1 Specialty Diagnoses / Procedures Referred By Contac t Referred To Contact Procedures ECG Todd Muhammad MD [address] [place] [address] Referral ID Status Reason Start Date Expiration Date V isits Requested Visits Authorized [id number] New Request 05/09/2023 06/02/2024 1 1 Specialty Diagnoses / Procedures Referred By Contac t Referred To Contact Procedures PLATELET MONITORING PER PROTOCOL Todd Muahmmad MD [address] [place], [place] [id number] Referral ID Status Reason Start Date Expiration Date V isits Requested Visits Authorized [id number] New Request 05/09/2023 06/02/2024 1 1 Specialty Diagnoses / Procedures Referred By Contac t Referred To Contact Procedures DVT/VTE RISK ASSESSMENT Todd Muhammad MD [address] [place] [id number] Referral ID Status Reason Start Date Expiration Date V isits Requested Visits Authorized [id number] New Request 05/09/2023 06/02/2024 1 1 Specialty Diagnoses / Procedures Referred By Contac t Referred To Contact Procedures ECG Madeline Cazares MD [address] [place] [address] Referral ID Status Reason Start Date Expiration Date V isits Requested Visits Authorized [id number] New Request 05/08/2023 06/01/2024 1 1 Referral ID Status Reason Start Date Expiration Date V isits Requested Visits Authorized [id number] New Request 05/08/2023 06/01/2024 1 1 Additional Source Comments INFORMATION SOURCE (unrecogn ized section and content) DATE CREATED AUTHOR 12/23/2018 [employer] DATE CREATED AUTHOR AUTHOR'S ORGANIZ ATION 08/28/2022 [facility] DATE CREATED AUTHOR AUTHOR'S ORGANIZ ATION 10/29/2022 [facility] DATE CREATED AUTHOR AUTHOR'S ORGANIZ ATION 11/08/2022 [facility] DATE CREATED AUTHOR AUTHOR'S ORGANIZ ATION 11/16/2022 [facility] DATE CREATED AUTHOR AUTHOR'S ORGANIZ ATION 06/15/2023 [facility] DATE CREATED AUTHOR AUTHOR'S ORGANIZ ATION 08/08/2023 [facility] DATE CREATED AUTHOR AUTHOR'S ORGANIZ ATION 10/08/2023 [facility] DATE CREATED AUTHOR AUTHOR'S ORGANIZ ATION 12/24/2023 [facility] ([place] DATE CREATED AUTHOR AUTHOR'S ORGANIZ ATION 01/01/2025 [facility] DATE CREATED AUTHOR AUTHOR'S ORGANIZ ATION 01/05/2025 [facility] Reason for Visit (unrecogniz ed section and content) Specialty Diagnoses / Procedures Referred By Jan jameson Referred To Contact Diagnoses Cerebrovascular accident (CVA), unspecified mechanism Level A Stroke, Possible LVO Todd Muhammad MD [facility] [place] [address] [place] [place] [address] [facility] [address] [place] [address] Referral ID Status Reason Start Date Expiration Date Visits Re quested Visits Authorized [id number] 1 1 Reason Comments Seizures Pt to ER from rehab for alcohol abuse. Reported multiple seizures at facility. EMS report fluttering of eyes followed by pt being alert in transit to ER. Pt hx seizures, takes Depakote, reports compliance. Scheduled Active and Recently Administ ered Medications (unrecognized section and content) Medication Order 05/11/2023 05/12/2023 05/13/2023 aspirin chewable tablet 81 mg(Linked Group 1) 81 mg, Oral, DAILY, First dose on Fri05/09/23 at 0900, Until Discontinued, May begin use of chewable aspirin when patient passes swallow test. 0849 (Given - Provider: Candi Jaimes RN) 0820 (Given - Provider: Yulia Moore RN) 0816 (Given - Provider: Yulia Moore RN) aspirin suppository 300 mg(Linked Group 1) 300 mg, Rectal, DAILY, First dose on Fri05/09/23 at 0900, Until Discontinued, Use suppository until patient passes swallow test. 0849 (See Alternative - Provider: Candi Jaimes RN) 0820 (See Alternative - Provider: Yulia Moore RN) 0816 (See Alternative - Provider: Yulia Moore RN) Atorvastatin (LIPITOR) tablet 40 mg 40 mg, Oral, DAILY AT BEDTIME, First dose on Fri05/12/23 at 2100, Until Discontinued 2014 (Given - Provider: Farhan Boland, RICHARD) buprenorphine 8 mg/naloxone 2 mg (SUBOXONE) SL film 1 strip (CANCELED) 1 strip, Sublingual, EVERY 12 HOURS, First dose on Fri05/09/23 at 0900, Until Discontinued 0849 (Given - Provider: Candi Jaimes RN)2007 (Given - Provider: Kameron Gama RN) 08 (Given - Provider: Yulia Moore RN - Comment: phantom pain)2014 (Given - Provider: Farhan Boland RN) 0816 (Given - Provider: Yulia Moore RN) buprenorphine ER (SUBLOCADE) SQ injection 300 mg (COMPLETED) 300 mg, Subcutaneous, ONCE, 1 dose, On Fri05/13/23 at 1100, Allow at least 15 minutes to warm to room temperature prior to injection. Administer each injection only using the syringe and safety needle included with the product. 1037 (Given - Provider: Yulia Moore RN) carveDILOL (COREG) tablet 6.25 mg 6.25 mg, Oral, EVERY 12 HOURS, First dose on Fri05/09/23 at 0900, Until Discontinued 09 (Automatically Held - Provider: Rebecca Velasquez MD)2099 (Automatically Held - Provider: Rebecca Velasquez MD) 09 (Automatically Held - Provider: Rebecca Velasquez MD)1304 (Unheld by provider - Provider: Candi Martínez DO)2014 (Given - Provider: Farhan Boland, RICHARD) 0816 (Given - Provider: Yulia Moore RN) Divalproex (DEPAKOTE) tablet EC/DR 250 mg (CANCELED) 250 mg, Oral, 2 TIMES DAILY, First dose on Fri05/11/23 at 1100, Until Discontinued, Do not crush. 1214 (Given - Provider: Candi Jaimes RN)1700 (Given - Provider: Candi Jaimes RN) 0820 (Given - Provider: Yulia Moore RN)1722 (Given - Provider: Yulia Moore RN) Divalproex (DEPAKOTE) tablet EC/DR 500 mg 500 mg, Oral, 2 TIMES DAILY, First dose (after last modification) on Fri05/13/23 at 0900, Until Discontinued, Do not crush. 0816 (Given - Provider: Yulia Moore RN)1700 (Canceled Entry - Provider: System Discharge - Comment: Automatically canceled at discontinue of medication order) DULoxetine (CYMBALTA) capsule DR 90 mg 90 mg, Oral, DAILY, First dose on Fri05/09/23 at 0900, Until Discontinued, Swallow capsule whole; do not crush or chew. May add contents of capsule to apple juice or applesauce (but NOT chocolate) taking care not to crush the pellets and damage the enteric coating. 0849 (Given - Provider: Candi Jaimes RN) 0820 (Given - Provider: Yulia Moore RN) 0815 (Given - Provider: Yulia Moore RN) Enoxaparin Sodium (LOVENOX) injection 40 mg 40 mg, Subcutaneous, EVERY 24 HOURS, First dose on Fri05/09/23 at 0900, Until Discontinued, Indications: DVT/PE prophylaxis 0848 (Given - Provider: Candi Jaimes RN) 0820 (Given - Provider: Yulia Moore RN) 0816 (Given - Provider: Yulia Moore RN) levETIRAcetam (KEPPRA) tablet 1,000 mg (CANCELED) 1,000 mg, Oral, EVERY 12 HOURS, First dose on Fri05/09/23 at 2100, Until Discontinued 0847 (Given - Provider: Candi Jaimes RN) Melatonin tablet 3 mg 3 mg, Oral, DAILY WITH DINNER, First dose on Fri05/10/23 at 2115, Until Discontinued 1700 (Given - Provider: Candi Jaimes RN) 1722 (Given - Provider: Yulia Moore RN) 1700 (Canceled Entry - Provider: System Discharge - Comment: Automatically canceled at discontinue of medication order) Senna (SENOKOT) tablet 8.6 mg(Linked Group 2) 8.6 mg, Oral, DAILY EVERY MORNING, First dose on Fri05/09/23 at 0900, Until Discontinued, Hold if BM in last 2 hours. 0849 (Given - Provider: Candi Jaimes RN) 0820 (Given - Provider: Yulia Moore RN) 0816 (Given - Provider: Yulia Moore RN) Senna (SENOKOT) tablet 8.6 mg(Linked Group 2) 8.6 mg, Per NG tube, DAILY EVERY MORNING, First dose on Fri05/09/23 at 0900, Until Discontinued, Hold if BM in last 2 hours. 0849 (See Alternative - Provider: Candi Jaimes RN) 0820 (See Alternative - Provider: Yulia Moore RN) 0816 (See Alternative - Provider: Yulia Moore RN) PRN Medication Order 05/11/2023 05/12/2023 05/13/2023 Acetaminophen (TYLENOL) tablet 325 mg(Linked Group 3) 325 mg, Oral, EVERY 4 HOURS NEEDED, Starting on Fri05/09/23 at 0018, Until Fri05/13/23 at 1829, Mild Pain, Moderate Pain, Maximum dose of acetaminophen is 4000 mg from all sources in 24 hours. 0848 (See Alternative - Provider: Candi Jaimes RN)154 (See Alternative - Provider: Candi Jaimes RN)2007 (See Alternative - Provider: Kameron Gama, RICHARD) Acetaminophen (TYLENOL) tablet 325 mg(Linked Group 3) 325 mg, Per NG tube, EVERY 4 HOURS NEEDED, Starting on Fri05/09/23 at 0018, Until Fri05/13/23 at 1829, Mild Pain, Moderate Pain, Maximum dose of acetaminophen is 4000 mg from all sources in 24 hours. 0848 (See Alternative - Provider: Candi Jaimes RN)154 (See Alternative - Provider: Candi Jaimes RN)2007 (See Alternative - Provider: Kameron Gama, RICHARD) Acetaminophen (TYLENOL) tablet 650 mg(Linked Group 3) 650 mg, Oral, EVERY 4 HOURS NEEDED, Starting on Fri05/09/23 at 0018, Until Fri05/13/23 at 1829, Severe Pain, Oral temp > 99.5, Maximum dose of acetaminophen is 4000 mg from all sources in 24 hours. 0848 (Given - Provider: Candi Jaimes RN)1548 (Given - Provider: Candi Jaimes RN)2007 (Given - Provider: Kameron Gama, RICHARD) Acetaminophen (TYLENOL) tablet 650 mg(Linked Group 3) 650 mg, Per NG tube, EVERY 4 HOURS NEEDED, Starting on Fri05/09/23 at 0018, Until Fri05/13/23 at 1829, Severe Pain, Oral temp > 99.5, Maximum dose of acetaminophen is 4000 mg from all sources in 24 hours. 0848 (See Alternative - Provider: Candi Jaimes RN)1548 (See Alternative - Provider: Candi Jaimes RN)2007 (See Alternative - Provider: Kameron Gama, RICHARD) hydrALAZINE (APRESOLINE) injection 10 mg(Linked Group 4) 10 mg, Intravenous, EVERY 1 HOUR NEEDED, Starting on Fri05/09/23 at 0018, Until Fri05/13/23 at 1829, Systolic Blood Pressure greater than 220 mmHg and heart rate LESS THAN 60 beats per minute., Use as initial dose. Higher dose may be administered if lower dose was previously documented as ineffective 10 minutes after administration and did not result in adverse effects (HR>90) hydrALAZINE (APRESOLINE) injection 20 mg(Linked Group 4) 20 mg, Intravenous, EVERY 1 HOUR NEEDED, Starting on Fri05/09/23 at 0018, Until Fri05/13/23 at 1829, Systolic Blood Pressure greater than 220 mmHg and heart rate LESS THAN 60 beats per minute., Higher dose may be administered if lower dose was previously documented as ineffective 10 minutes after administration and did not result in adverse effects (HR>90). Decrease back to lower dose if patient has adverse effects, or no PRN used in previous 3 hours hydrocortisone 2.5 % cream 1 Application 1 Application, Topical, 2 TIMES DAILY NEEDED, 6 doses, Starting on Fri05/11/23 at 0413, Until Fri05/13/23 at 1829, Itching, Apply to affected area 0548 (Given - Provider: Kameron Gama RN)2007 (Given - Provider: Kameron Gama RN) 0821 (Given - Provider: Yulia Moore RN) 0815 (Given - Provider: Yulia Moore RN) Labetalol (NORMODYNE) injection 10 mg(Linked Group 5) 10 mg, Intravenous, EVERY 1 HOUR NEEDED, Starting on Fri05/09/23 at 0018, Until Fri05/13/23 at 1829, Systolic Blood Pressure greater than 220 mmHg and heart rate GREATER THAN 60 beats per minute., Use as initial dose. Higher dose may be administered if lower dose was previously documented as ineffective 10 minutes after administration and did not result in adverse effects (HR<60) For vials: labetalol should be treated as a SINGLE USE VIAL. Discard remaining contents after one use. Labetalol (NORMODYNE) injection 20 mg(Linked Group 5) 20 mg, Intravenous, EVERY 1 HOUR NEEDED, Starting on Fri05/09/23 at 0018, Until Fri05/13/23 at 1829, Systolic Blood Pressure greater than 220 mmHg and heart rate GREATER THAN 60 beats per minute., Higher dose may be administered if lower dose was previously documented as ineffective 10 minutes after administration and did not result in adverse effects (HR<60). Decrease back to lower dose if patient has adverse effects, or no PRN used in previous 3 hours For vials: labetalol should be treated as a SINGLE USE VIAL. Discard remaining contents after one use. Ondansetron 4mg/2ml (ZOFRAN) injection 4 mg 4 mg, Intravenous, EVERY 8 HOURS NEEDED, Starting on Fri05/09/23 at 0020, Until Fri05/13/23 at 1829, Nausea / Vomiting 1549 (Given - Provider: Candi Jaimes RN) Polyethylene glycol (MIRALAX) packet 17 g(Linked Group 6) 17 g, Oral, DAILY NEEDED, Starting on Fri05/09/23 at 0018, Until Fri05/13/23 at 1829, Constipation If No Bowel Movement in 48 Hours 0849 (Given - Provider: Candi Jaimes RN) Polyethylene glycol (MIRALAX) packet 17 g(Linked Group 6) 17 g, Per NG tube, DAILY NEEDED, Starting on Fri05/09/23 at 0018, Until Fri05/13/23 at 1829, Constipation If No Bowel Movement in 48 Hours 0849 (See Alternative - Provider: Candi Jaimes RN) Linked Groups Order Group 1: aspirin chewable tablet 81 mgJump to med 81 mg, Oral, DAILY, First dose on Fri05/09/23 at 0900, Until Discontinued
May begin use of chewable aspirin when patient passes swallow test.
Or aspirin suppository 300 mgJump to med 300 mg, Rectal, DAILY, First dose on Fri05/09/23 at 0900, Until Discontinued
Use suppository until patient passes swallow test.
Group 2: Senna (SENOKOT) tablet 8.6 mgJump to med 8.6 mg, Oral, DAILY EVERY MORNING, First dose on Fri05/09/23 at 0900, Until Discontinued
Hold if BM in last 2 hours.
Or Senna (SENOKOT) tablet 8.6 mgJump to med 8.6 mg, Per NG tube, DAILY EVERY MORNING, First dose on Fri05/09/23 at 0900, Until Discontinued
Hold if BM in last 2 hours.
Group 3: Acetaminophen (TYLENOL) tablet 325 mgJump to med 325 mg, Oral, EVERY 4 HOURS NEEDED, Starting on Fri05/09/23 at 0018, Until Fri05/13/23 at 1829, Mild Pain, Moderate Pain
Maximum dose of acetaminophen is 4000 mg from all sources in 24 hours.
Or Acetaminophen (TYLENOL) tablet 325 mgJump to med 325 mg, Per NG tube, EVERY 4 HOURS NEEDED, Starting on Fri05/09/23 at 0018, Until Fri05/13/23 at 1829, Mild Pain, Moderate Pain
Maximum dose of acetaminophen is 4000 mg from all sources in 24 hours.
Or Acetaminophen (TYLENOL) tablet 650 mgJump to med 650 mg, Oral, EVERY 4 HOURS NEEDED, Starting on Fri05/09/23 at 0018, Until Fri05/13/23 at 1829, Severe Pain, Oral temp > 99.5
Maximum dose of acetaminophen is 4000 mg from all sources in 24 hours.
Or Acetaminophen (TYLENOL) tablet 650 mgJump to med 650 mg, Per NG tube, EVERY 4 HOURS NEEDED, Starting on Fri05/09/23 at 0018, Until Fri05/13/23 at 1829, Severe Pain, Oral temp > 99.5
Maximum dose of acetaminophen is 4000 mg from all sources in 24 hours.
Group 4: hydrALAZINE (APRESOLINE) injection 10 mgJump to med 10 mg, Intravenous, EVERY 1 HOUR NEEDED, Starting on Fri05/09/23 at 0018, Until Fri05/13/23 at 1829, Systolic Blood Pressure greater than 220 mmHg and heart rate LESS THAN 60 beats per minute.
Use as initial dose. Higher dose may be administered if lower dose was previously documented as ineffective 10 minutes after administration and did not result in adverse effects (HR>90)
Or hydrALAZINE (APRESOLINE) injection 20 mgJump to med 20 mg, Intravenous, EVERY 1 HOUR NEEDED, Starting on Fri05/09/23 at 0018, Until Fri05/13/23 at 1829, Systolic Blood Pressure greater than 220 mmHg and heart rate LESS THAN 60 beats per minute.
Higher dose may be administered if lower dose was previously documented as ineffective 10 minutes after administration and did not result in adverse effects (HR>90). Decrease back to lower dose if patient has adverse effects, or no PRN used in previous 3 hours
Group 5: Labetalol (NORMODYNE) injection 10 mgJump to med 10 mg, Intravenous, EVERY 1 HOUR NEEDED, Starting on Fri05/09/23 at 0018, Until Fri05/13/23 at 1829, Systolic Blood Pressure greater than 220 mmHg and heart rate GREATER THAN 60 beats per minute.
Use as initial dose. Higher dose may be administered if lower dose was previously documented as ineffective 10 minutes after administration and did not result in adverse effects (HR<60) For vials: labetalol should be treated as a SINGLE USE VIAL. Discard remaining contents after one use.
Or Labetalol (NORMODYNE) injection 20 mgJump to med 20 mg, Intravenous, EVERY 1 HOUR NEEDED, Starting on Fri05/09/23 at 0018, Until Fri05/13/23 at 1829, Systolic Blood Pressure greater than 220 mmHg and heart rate GREATER THAN 60 beats per minute.
Higher dose may be administered if lower dose was previously documented as ineffective 10 minutes after administration and did not result in adverse effects (HR<60). Decrease back to lower dose if patient has adverse effects, or no PRN used in previous 3 hours For vials: labetalol should be treated as a SINGLE USE VIAL. Discard remaining contents after one use.
Group 6: Polyethylene glycol (MIRALAX) packet 17 gJump to med 17 g, Oral, DAILY NEEDED, Starting on Fri05/09/23 at 0018, Until Fri05/13/23 at 1829, Constipation If No Bowel Movement in 48 Hours Or Polyethylene glycol (MIRALAX) packet 17 gJump to med 17 g, Per NG tube, DAILY NEEDED, Starting on Fri05/09/23 at 0018, Until Fri05/13/23 at 1829, Constipation If No Bowel Movement in 48 Hours Care Teams (unrecognized sec tion and content) Stunner Relationship Specialty Start Date End Date Tammy Karimi MD [address] [place] [address] PCP - General Family Medicine 10/21/22 Stunner Relationship Specialty Start Date End Date Physician, No Pcp PCP - General 12/29/24 FOR RECORDS PERTAINING TO PATIENTS WHO ARE OR HAVE BEEN ENROLLED IN A CHEMICAL DEPENDENCY/SUBSTANCEABUSE PROGRAM, SOME INFORMATION MAY BE OMITTED. This clinical summary was aggregated from multiple sources. Caution should be exercised in using it in the provision of clinical care. This summary normalizes information from multiple sources, and as a consequence, information in this document may materially change the coding, format and clinical context of patient data. In addition, data may be omitted in some cases. CLINICAL DECISIONS SHOULD BE BASED ON THE PRIMARY CLINICAL RECORDS. [employer] provides no warranty or guarantee of the accuracy or completeness of information in this document.
[2025-01-20 04:44] VITALS: BP 104/60; PULSE 74; RESP 20; TEMP 37.1; O2SAT 100
[2025-01-20 05:00] VITALS: BMI 34.9
[2025-01-20 05:51] VITALS: BMI 34.9
--- NOTE | 2025-01-20 07:01 | PN.HOSP_ITS ---
Reason for Visit Reason for Visit: Diagnoses Alcohol use, unspecified with withdrawal, unspecified (01/17/25) Facial weakness (01/17/25) Unspecified convulsions (01/17/25) Subjective Subjective Patient with no acute events overnight per self and per nursing report. Patient did well with therapies with usage of wheelchair for transfer which is what she does baseline. She does report still feeling mildly tremulous but upon evaluation she seems significantly improved and actually does seem fatigued with recent phenobarbital administration. From discussion with case management/social work patient was initially supposed to go outpatient to facility but declined initially 60-day and was willing to do 30-day but when they called her to set it up she then also stated she was unable to do 30 days. At this point patient is insistent upon discharge to home when she completes program. Patient denies fevers, chills, nausea, emesis, abdominal pain, chest pain or dyspnea. Objective Data Objective Data Vital Signs: Vital Signs Temp Pulse Resp BP Pulse Ox O2 Del Method O2 Flow Rate 98.7 F 74 20 H 104/60 100 Nasal Cannula 2 01/20/25 04:44 01/20/25 04:44 01/20/25 04:44 01/20/25 04:44 01/20/25 04:44 01/20/25 04:44 01/20/25 04:44 Oxygen Flow Rate (L/min) 2 Oxygen Delivery Method Nasal Cannula Weight: 197 lb 1.492 oz Body Mass Index (BMI) 34.9 Intake & Output: Intake and Output for Last 24 Hours 01/18/25 01/19/25 01/20/25 23:59 23:59 23:59 Intake Total 1271.75 / 1271.75 1440 / 1440 Output Total 850 / 850 Balance 421.75 / 421.75 1440 / 1440 Lab / Micro Data 01/18/25 05:33 01/18/25 05:33 Physical Exam Narrative Physical Examination: General: Awake, alert, oriented x 3, cooperative, seated upright in the PCU bedside chair, appears fatigued but otherwise no acute distress, no significant tremulousness noted. Skin: Normal color, normal turgor, no icterus, no cyanosis except occasional stage ecchymoses, abrasion. HEENT: AT/NC, EOMI, PERRLA, MMM, persistent stable mild right-sided nasolabial flattening and small droop, corrects with smiling, no tongue deviation, suspect chronic from previous stroke. Lungs: CTA bilaterally, moderate effort, mild decrease BL bases, no rales, ronchi or wheezing. Heart: Regular rate and rhythm; no gallop, rub audible. Abdomen: Soft, obese, NTTP, normal BS, no obvious distention. 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 Neurological: Patient awake, alert, oriented as noted, cognitive function intact; pupils equally reactive to light and accommodation, cranial nerves grossly normal, moving both upper and right lower extremity, status post left lower extremity amputation at the pelvis, sensation intact, not tremulous at this time, appears fatigued. Psychiatric: Affect appears fatigued, no marked withdrawal symptoms, no acute evidence of depressive or anxiety feelings but does have underlying history, denies any suicidal ideation. Assessment & Plan Assessment/Plan (1) Alcohol withdrawal: (2) Seizure: (3) Facial droop: PLAN: Plan The patient is a 59 y/o F w/ PMHx: Obesity, Polysubstance abuse (Opiate on suboxone, EtOH abuse) history per chart report, Anxiety and Depression, HLD, Seizure disorder, Hx CVA (L MCA chart reported) w/ previous chart history of R sided chronic hemiplegia, s/p Prior Trauma s/p LLE amputation who presents to the [facility] ED on 01/17/25 with history of concern for possible seizure on morning day of presentation with last drink the day prior in the a.m. with concern for withdrawal seizures prompting ED evaluation with request for detoxification with onset of incidentally noted right-sided facial droop in the ED with stroke alert initiated. #1. New onset right-sided facial droop, right-sided paresthesias, mild right lower extremity drift concerning for CVA/TIA with history of previous CVA with prior right-sided hemiplegia since resolved (denies any ongoing deficits in previous stroke), RULED OUT ACUTE CVA: Admitted to PCU, MRI of the brain with no acute stroke thus facial changes possibly from previous, echocardiogram with normal LV size, LV systolic function normal, LVEF of 60%, bubble contrast again negative, mild tricuspid valve insufficiency. Maintained on asa, statin. Magnesium 1.9, TSH 2.370. FLP with triglyceride 256, total cholesterol 144, LDL 61, VLDL 51, HDL 32, hemoglobin A1c 5.6%. Neurology has signed off given patient clinical improvement and stroke rule out. Upon discharge will refer to neurology to follow-up outpatient to continue to monitor given history of previous stroke. #2. Acute EtOH Withdrawal with concern for alcohol withdrawal associated seizure with history of previous similar presentation: Given interest in sobriety, initiated and continued on protocol with taper course of Phenobarbital, as needed gabapentin, Catapres, Bentyl, Vistaril, IV fluids, IV antiemetics, Tylenol as needed for pain. Will consult Case management for assistance for transition to next level of rehabilitation care. Mag 1.9, phosphorus mildly decreased 2.5 with supplementation administered. Maintain on CIWA protocol concurrently. Will maintain on antiepileptic medication. From review of taper system last dose 01/21/2025 and at that time we will plan likely discharge to home potentially 01/23/2020 5 AM given last dose is near midnight. Unfortunately this time patient is declining transition to outpatient scheduled facility and preference for return to home. #3. Complex partial seizures w/ recent acute EtOH withdrawal seizure as noted #2: Valproic acid level 97 thus within range and patient does note being compliant with his medications. 01/17/2025 administered dose x 1 given presentation. Will continue treatment of alcohol withdrawal as likely contributing as noted above. Given patient has been clinically improving and on phenobarbital taper would de-escalate off seizure precautions at this time. #4. Elevated BP without hypertensive diagnosis: BP elevated above goal, improved without intervention, remains appropriately within range. #5. History of polysubstance abuse with opiate dependence: Noted be in remission for several years, reports continued clean status, UDS obtained with noted presumptive positive buprenorphine, continue Suboxone regimen. #6. History of previous left lower extremity MRSA infection status post left lower extremity amputation: Remote history of left lower extremity amputation with significant MRSA wound history, usually uses crutches and wheelchair, PT/OT consulted as noted. #7. Anxiety and depression: Initial concerns upon presentation with recent intoxication of suicidal ideation and but now the patient is more alert and interactive she denies any suicidal aviation and does admit to anxiety and depression ongoing but no intention of self-harm. Suicide precautions discontinued in the ED. #8. Hyperlipidemia: Continue home statin regimen. AM FLP obtained as noted. #9. DVT prophylaxis: Lovenox. Charges/Coding Visit Charges Inpatient E&M: 31279 Subs Hosp L2 NIHSS NIHSS Nursing Documentation NIHSS Nursing Documentation: NIHSS: Ischemic Stroke/TIA Start: 01/17/25 13:47 Text: For PCU Patients: NIH and Neuro Check every 4 Status: Complete hours, PRN and with change in RN caregiver. Freq: [id number] Protocol: Activity Type Activity Date Activity User E-sign Co-sign Detail Recorded Client Recorded Date Recorded By Document 01/17/25 17:30 ML [id number] 01/17/25 18:10 ML 01/17/25 17:30 NIH Stroke Scale [NIHSS] A score of 0 is normal or asymptomatic . Total possible score is 42. Inpatient: RN or Physician to activate a stroke alert for onset of new stroke symptoms or with NIHSS increase >/= 3 points. Following change in neurological status, NIHSS will be performed per physician order or more frequently PRN. -1a. Level of Consciousness 0 - Alert; keenly responsive -1b. LOC Questions 0 - Answers BOTH questions correctly -1c. LOC Commands 0 - Performs BOTH tasks correctly -2. Best Gaze 0 - Normal -3. Visual 1 - Partial hemianopia -4. Facial Palsy 1 - Minor paralysis ( flattened nasolabial fold , asymmetry on smiling) -5a. Left Arm 0 - No drift; arm holds 90 ( or 45) degrees for full 10 seconds -5b. Right Arm 0 - No drift; arm holds 90 ( or 45) degrees for full 10 seconds -6a. Left Leg UN - Amputation or joint fusion, explain : -'UN' explanation amp. -6b. Right Leg 1 - Drift; leg falls by the end of 5- seconds, but does not hit bed -7. Limb Ataxia 0 - Absent -8. Sensory 1 - Mild-to- moderate sensory loss; -9. Best Language 0 - No aphasia; normal -10. Dysarthria 1 = Mild-to- moderate dysarthria; -11. Extinction and Inattention 0 - No abnormality -Total 5 Query Text:A score of 0 is normal or asymptomatic. Total possible score is 42 . ED: Notify Physician for NIHSS increase by > / = 3 points. Inpatient: RN or Physician to activate a stroke alert for NIHSS increase of > / = 3 points. Coma Scale [Assess] -Eye Opening Spontaneous -Motor Obeys Commands -Verbal Oriented [Total] -Coma Scale Total 15
--- NOTE | 2025-01-20 09:48 | ADDICTION ---
Patient had an admission screen through [facility] to set her up for inpatient tx. Patient reported she could only go for 30 days, she reported that she had to go home first to take care of her dog, and that she is on suboxone for pain, not addiction and was unwilling to not have that. [facility] accepts patients on Suboxone but not as pain management. Clinician looked into a tx center that would accommodate those request. [facility] in [place] called and completed a screen. She informed them that she could only stay 2 weeks and was unsure when she was able to go due to family issues. Patients readiness for recovery appears minimal at this time due to barriers patient is putting between herself and receiving tx.
[2025-01-20 10:15] VITALS: BP 117/73; PULSE 80; RESP 18; TEMP 36.2; O2SAT 98
[2025-01-20] MEDS: Thiamine Hydrochloride 100 MG Tablet PO (10:20)
[2025-01-20] MEDS: Aspirin E.C. 81 MG Tablet PO (10:20)
[2025-01-20 14:49] VITALS: BP 112/69; PULSE 70; RESP 18; TEMP 36.5; O2SAT 99
[2025-01-20 16:36] VITALS: O2SAT 97
[2025-01-20 20:00] VITALS: BP 133/84; PULSE 67; RESP 12; TEMP 36.8; O2SAT 96
[2025-01-20 23:00] VITALS: BP 133/84; PULSE 67; RESP 12; TEMP 36.8; O2SAT 96
[2025-01-21] VITALS: BP 133/84; PULSE 72; RESP 12; TEMP 37; O2SAT 96
[2025-01-21] MEDS: Lorazepam 2 MG/ML WCH Syringe IV (00:57)
[2025-01-21] MEDS: 0.9% Saline Lock 10 ML Syringe IV (00:58)
[2025-01-21 04:00] VITALS: BP 136/86; PULSE 67; RESP 14; TEMP 36.8; O2SAT 97
[2025-01-21 04:04] VITALS: BMI 34.9
[2025-01-21 05:40] VITALS: BMI 34.9
--- NOTE | 2025-01-21 07:00 | PCM.PN.HOSP ---
Reason for Visit Reason for Visit: Diagnoses Alcohol use, unspecified with withdrawal, unspecified (01/17/25) Facial weakness (01/17/25) Unspecified convulsions (01/17/25) Subjective Subjective Patient with no acute events overnight per self per nursing report however patient is very sluggish this morning but did receive recent doses of her Suboxone and also phenobarbital. She does awaken to stimuli but falls back asleep. Discussed with nursing staff and noted that if she is sedate to skip phenobarbital doses however patient is on the last section of the taper therefore if needed may only redosed x 1 this afternoon if she is clinically appropriate. Discussed with patient that her taper ends near dinnertime and plan for discharge to home at that time. Patient denies fevers, chills, nausea, emesis, abdominal pain, chest pain or dyspnea. Objective Data Objective Data Vital Signs: Vital Signs Temp Pulse Resp BP Pulse Ox O2 Del Method O2 Flow Rate 98.2 F 67 14 136/86 H 97 Room Air 2 01/21/25 04:00 01/21/25 04:00 01/21/25 04:00 01/21/25 04:00 01/21/25 04:00 01/21/25 04:00 01/20/25 14:49 Oxygen Flow Rate (L/min) 2 Oxygen Delivery Method Room Air Weight: 197 lb 8.547 oz Body Mass Index (BMI) 34.9 Intake & Output: Intake and Output for Last 24 Hours 01/19/25 01/20/25 01/21/25 23:59 23:59 23:59 Intake Total 1440 / 1440 450 / 450 Balance 1440 / 1440 450 / 450 Lab / Micro Data 01/18/25 05:33 01/18/25 05:33 Physical Exam Narrative Physical Examination: General: Awakens to discussions but is very lethargic with recent sedating medication, alert when she is awoken but does quickly fall back asleep, able to carry on some discussions and she is oriented appropriately but again becomes very fatigued quickly, remains cooperative, seated upright in the PCU bed, very lethargic, recent sedated medication but does awaken to discussion but quickly falls back asleep. Skin: Normal color, normal turgor, no icterus, no cyanosis except occasional stage ecchymoses, abrasion. HEENT: AT/NC, EOMI, PERRLA, MMM, persistent stable mild right-sided nasolabial flattening and small droop, corrects with smiling, no tongue deviation, suspect chronic from previous stroke. Lungs: CTA bilaterally, moderate effort, mild decrease BL bases, no rales, ronchi or wheezing. Heart: Regular rate and rhythm; no gallop, rub audible. Abdomen: Soft, obese, NTTP, normal BS, no obvious distention. 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 Neurological: Patient awake, alert, oriented as noted, cognitive function intact; pupils equally reactive to light and accommodation, cranial nerves grossly normal, moving both upper and right lower extremity, status post left lower extremity amputation at the pelvis, sensation intact, no evidence of any withdrawal symptoms. Psychiatric: Affect appears very fatigued, recent sedated medication, no acute evidence of depressive or anxiety feelings but does have underlying history, denies any suicidal ideation. Assessment & Plan Assessment/Plan (1) Alcohol withdrawal: (2) Seizure: (3) Facial droop: PLAN: Plan The patient is a 59 y/o F w/ PMHx: Obesity, Polysubstance abuse (Opiate on suboxone, EtOH abuse) history per chart report, Anxiety and Depression, HLD, Seizure disorder, Hx CVA (L MCA chart reported) w/ previous chart history of R sided chronic hemiplegia, s/p Prior Trauma s/p LLE amputation who presents to the [facility] ED on 01/17/25 with history of concern for possible seizure on morning day of presentation with last drink the day prior in the a.m. with concern for withdrawal seizures prompting ED evaluation with request for detoxification with onset of incidentally noted right-sided facial droop in the ED with stroke alert initiated. #1. New onset right-sided facial droop, right-sided paresthesias, mild right lower extremity drift concerning for CVA/TIA with history of previous CVA with prior right-sided hemiplegia since resolved (denies any ongoing deficits in previous stroke), RULED OUT ACUTE CVA: Admitted to PCU, MRI of the brain with no acute stroke thus facial changes possibly from previous, echocardiogram with normal LV size, LV systolic function normal, LVEF of 60%, bubble contrast again negative, mild tricuspid valve insufficiency. Maintained on asa, statin. Magnesium 1.9, TSH 2.370. FLP with triglyceride 256, total cholesterol 144, LDL 61, VLDL 51, HDL 32, hemoglobin A1c 5.6%. Neurology has signed off given patient clinical improvement and stroke rule out. Given taper completes 01/21/2025 per discussion with pharmacy with readjustment we will plan discharge to home today with plan follow-up with PCP and neurology outpatient given her previous stroke history. #2. Acute EtOH Withdrawal with concern for alcohol withdrawal associated seizure with history of previous similar presentation: Given interest in sobriety, initiated and continued on protocol with taper course of Phenobarbital, as needed gabapentin, Catapres, Bentyl, Vistaril, IV fluids, IV antiemetics, Tylenol as needed for pain. Will consult Case management for assistance for transition to next level of rehabilitation care. Mag 1.9, phosphorus mildly decreased 2.5 with supplementation administered. Maintain on CIWA protocol concurrently. Will maintain on antiepileptic medication. 01/21/2025 we discussed tapering system with pharmacy given patient significantly lethargic presentation with medications, will plan hold until less sedate with potentially 1 more dose and will plan discharge 01/21/2025 after dinner. Patient declined to discussed options for transition to a more outpatient program unfortunately. #3. Complex partial seizures w/ recent acute EtOH withdrawal seizure as noted #2: Valproic acid level 97 thus within range and patient does note being compliant with his medications. 01/17/2025 administered dose x 1 given presentation. Once patient was clinically improved and on phenobarbital taper de-escalated off seizure precautions. #4. Elevated BP without hypertensive diagnosis: BP elevated above goal, improved without intervention, remains appropriately within range. Encourage continued outpatient follow-up with PCP and continue BP assessment given underlying history would be appropriate for hypertensive regimen if above goal. #5. History of polysubstance abuse with opiate dependence: Noted be in remission for several years, reports continued clean status, UDS obtained with noted presumptive positive buprenorphine, continue Suboxone regimen. #6. History of previous left lower extremity MRSA infection status post left lower extremity amputation: Remote history of left lower extremity amputation with significant MRSA wound history, usually uses crutches and wheelchair, PT/OT consulted as noted. #7. Anxiety and depression: Initial concerns upon presentation with recent intoxication of suicidal ideation and but now the patient is more alert and interactive she denies any suicidal aviation and does admit to anxiety and depression ongoing but no intention of self-harm. Suicide precautions discontinued in the ED. #8. Hyperlipidemia: Continue home statin regimen. AM FLP obtained as noted. #9. DVT prophylaxis: Lovenox. Charges/Coding Visit Charges Inpatient E&M: 16662 Subs Hosp L2 NIHSS NIHSS Nursing Documentation NIHSS Nursing Documentation: NIHSS: Ischemic Stroke/TIA Start: 01/17/25 13:47 Text: For PCU Patients: NIH and Neuro Check every 4 Status: Complete hours, PRN and with change in RN caregiver. Freq: [id number] Protocol: Activity Type Activity Date Activity User E-sign Co-sign Detail Recorded Client Recorded Date Recorded By Document 01/17/25 17:30 ML [id number] 01/17/25 18:10 ML 01/17/25 17:30 NIH Stroke Scale [NIHSS] A score of 0 is normal or asymptomatic . Total possible score is 42. Inpatient: RN or Physician to activate a stroke alert for onset of new stroke symptoms or with NIHSS increase >/= 3 points. Following change in neurological status, NIHSS will be performed per physician order or more frequently PRN. -1a. Level of Consciousness 0 - Alert; keenly responsive -1b. LOC Questions 0 - Answers BOTH questions correctly -1c. LOC Commands 0 - Performs BOTH tasks correctly -2. Best Gaze 0 - Normal -3. Visual 1 - Partial hemianopia -4. Facial Palsy 1 - Minor paralysis ( flattened nasolabial fold , asymmetry on smiling) -5a. Left Arm 0 - No drift; arm holds 90 ( or 45) degrees for full 10 seconds -5b. Right Arm 0 - No drift; arm holds 90 ( or 45) degrees for full 10 seconds -6a. Left Leg UN - Amputation or joint fusion, explain : -'UN' explanation amp. -6b. Right Leg 1 - Drift; leg falls by the end of 5- seconds, but does not hit bed -7. Limb Ataxia 0 - Absent -8. Sensory 1 - Mild-to- moderate sensory loss; -9. Best Language 0 - No aphasia; normal -10. Dysarthria 1 = Mild-to- moderate dysarthria; -11. Extinction and Inattention 0 - No abnormality -Total 5 Query Text:A score of 0 is normal or asymptomatic. Total possible score is 42 . ED: Notify Physician for NIHSS increase by > / = 3 points. Inpatient: RN or Physician to activate a stroke alert for NIHSS increase of > / = 3 points. Coma Scale [Assess] -Eye Opening Spontaneous -Motor Obeys Commands -Verbal Oriented [Total] -Coma Scale Total 15
--- NOTE | 2025-01-21 07:24 | PCM.DC ---
Discharge Instructions Diet Discharge Diet: Low fat / Low cholesterol DC O2, CPAP, BIPAP needs Home O2 Discharge instructions: No Dressing / Incision Discharge Activity: Return to Normal Activity May resume sexual activity in: No Restrictions Weight Bearing Status: Weight bearing as tolerated Dressing / Incision Call your doctor if you observe: Fever of 101 or Higher, Shortness of breath, Dizziness, Swelling in the ankles, Chest pain, Increased palpitations (irregular heartbeat), Calf discomfort and Uncontrolled pain Follow Up Care Test Results: Test results from this visit will be discussed in further detail at your follow-up appointment, if applicable. Discharge Plan Admission Admit Date/Time: 01/17/25 12:24 Primary Reason for Your Visit: EtOH Withdrawal/Detoxification, Initial concern CVA RULED OUT Attending Provider: Mona Moore Primary Care Provider: Issac Karimi Instructions Patient Instructions: Substance Abuse Rehab Program, Alcohol Addiction, ED SEIZURE Alcohol Withdrawal Additional Instructions / Restrictions: ADDITIONAL DISCHARGE INSTRUCTIONS/FOLLOW-UP: #1. New onset right-sided facial droop, right-sided paresthesias, mild right lower extremity drift concerning for CVA/TIA with history of previous CVA with prior right-sided hemiplegia since resolved (denies any ongoing deficits in previous stroke), RULED OUT ACUTE CVA: --MRI of the brain with no acute stroke thus facial changes possibly from previous. --echocardiogram with normal LV size, LV systolic function normal, LVEF of 60%, bubble contrast again negative, mild tricuspid valve insufficiency. --Maintained on asa, statin. --Additional stroke evaluation labs included: Magnesium 1.9, TSH 2.370. FLP with triglyceride 256, total cholesterol 144, LDL 61, VLDL 51, HDL 32, hemoglobin A1c 5.6%. --Given history of prior stroke and presentation concerns although ruled out acute CVA at this time, will refer you to neurology at discharge for continued close monitoring outpatient. Discharge Orders/Prescriptions Prescriptions: Continued aspirin 81 MG tablet 81 mg PO DAILY atorvastatin 40 mg tablet 40 mg PO DAILY buprenorphine-naloxone 8-2 mg tablet, sublingual 2 tab sublingual DAILY multivitamin [Daily Multi-Vitamin] Tablet 1 tab PO DAILY divalproex 500 mg tablet,delayed release (DR/EC) 1,000 mg PO BID escitalopram oxalate 10 mg tablet 10 mg PO DAILY Referrals / Follow Up: Issac Karimi MD [Primary Care Provider] - (Follow-up in 3-5 days to review admission.) Devan Watkins MD [Non-Staff -Ordering Privileges] - (Please follow-up with neurology to establish, may see MICROBIOLOGICAL ANALYST.) Disposition Disposition (needs filled in before D/C Order can be placed): Home, Self Care
--- NOTE | 2025-01-21 07:25 | DS.PCM_ITS ---
Providers Date of Admission: 01/17/25 Date of Discharge: 01/21/25 Primary Care Physician: Dr. Issac Karimi MD Reason For Visit: ? TIA/CVA, ETOH WITHDRAWAL, POSS ETOH W/D SEIZURE Diagnosis Discharge Diagnosis (1) Alcohol withdrawal: Status: Acute Code(s): F10.939 - Alcohol use, unspecified with withdrawal, unspecified (2) Seizure: Status: Acute Code(s): R56.9 - Unspecified convulsions (3) Facial droop: Status: Acute Code(s): R29.810 - Facial weakness Plan: DISCHARGE DIAGNOSES: #1. New onset right-sided facial droop, right-sided paresthesias, mild right lower extremity drift concerning for CVA/TIA with history of previous CVA with prior right-sided hemiplegia since resolved (denies any ongoing deficits in previous stroke), RULED OUT ACUTE CVA #2. Acute EtOH Withdrawal with concern for alcohol withdrawal associated seizure with history of previous similar presentation #3. Complex partial seizures w/ recent acute EtOH withdrawal seizure as noted #2 #4. Elevated BP without hypertensive diagnosis, IMPROVED without regimen addition #5. History of polysubstance abuse with opiate dependence on chronic suboxone therapy #6. History of previous left lower extremity MRSA infection status post left lower extremity amputation #7. Anxiety and depression #8. Hyperlipidemia Medications at Discharge Home Medications aspirin 81 mg tablet,delayed release 81 mg PO DAILY heart health 05/20/18 atorvastatin 40 mg tablet 40 mg PO DAILY cholesterol 12/26/23 buprenorphine 8 mg-naloxone 2 mg sublingual tablet 2 tab sublingual DAILY addiction 12/26/23 escitalopram oxalate 10 mg tablet 10 mg PO DAILY mental health 07/17/24 divalproex 500 mg tablet,delayed release 1,000 mg PO BID Seizure disorder 01/17/25 multivitamin (Daily Multi-Vitamin tablet) 1 tab PO DAILY vitamin 01/17/25 Hospital Course Operations None Procedures 2-D Echocardiogram and EKG Summary of Care Provided Minutes Spent on Discharge: 35 Hospital Course: The patient is a 59 y/o F w/ PMHx: Obesity, Polysubstance abuse (Opiate on suboxone, EtOH abuse) history per chart report, Anxiety and Depression, HLD, Seizure disorder, Hx CVA (L MCA chart reported) w/ previous chart history of R sided chronic hemiplegia, s/p Prior Trauma s/p LLE amputation who presented to the [facility] ED on 01/17/25 with history of concern for possible seizure on morning day of presentation with last drink the day prior in the a.m. with concern for withdrawal seizures prompting ED evaluation with request for detoxification with onset of incidentally noted right-sided facial droop in the ED with stroke alert initiated. Admitted to PCU, MRI of the brain with no acute stroke thus facial changes possibly from previous, echocardiogram with normal LV size, LV systolic function normal, LVEF of 60%, bubble contrast again negative, mild tricuspid valve insufficiency. Maintained on asa, statin. Magnesium 1.9, TSH 2.370. FLP with triglyceride 256, total cholesterol 144, LDL 61, VLDL 51, HDL 32, hemoglobin A1c 5.6%. Neurology signed off given patient clinical improvement and stroke rule out with plan for outpatient referral given prior CVA history. Given interest in sobriety, initiated and continued on protocol with taper course of Phenobarbital with adjustments given sedation with regimen, also on chronic suboxone with also as needed gabapentin, Catapres, Bentyl, Vistaril, IV fluids, IV antiemetics, Tylenol as needed for pain. Mag 1.9, phosphorus mildly decreased 2.5 with supplementation administered. Maintained on CIWA protocol concurrently. 01/21/2025 we discussed tapering system with pharmacy given patient significantly lethargic presentation with medications, will plan hold until less sedate with potentially 1 more dose and will plan discharge 01/21/2025 after dinner. Patient declined to discussed options for transition to a more outpatient program unfortunately. Encouraged early follow-up with PCP and referral as noted made for Neurology follow-up in addition. Weight / BMI Weight Weight: 197 lb 8.547 oz Body Mass Index (BMI) 34.9 ABG / Lab / Microbiology Data 01/18/25 05:33 01/18/25 05:33 D/C Instructions Discharge Diet: Low fat / Low cholesterol May resume sexual activity in: No Restrictions Weight Bearing Status: Weight bearing as tolerated Call your doctor if you observe: Fever of 101 or Higher, Shortness of breath, Dizziness, Swelling in the ankles, Chest pain, Increased palpitations (irregular heartbeat), Calf discomfort and Uncontrolled pain DC O2, CPAP, BIPAP Needs Home O2 Discharge instructions: No Meaningful Use Info Meaningful Use Meaningful Use Diagnoses (Choose all that apply): None applicable Discharge Plan Admission Admit Date/Time: 01/17/25 12:24 Primary Reason for Your Visit: EtOH Withdrawal/Detoxification, Initial concern CVA RULED OUT Attending Provider: Mona Moore Primary Care Provider: Issac Karimi Instructions Patient Instructions: Substance Abuse Rehab Program, Alcohol Addiction, ED SEIZURE Alcohol Withdrawal Additional Instructions / Restrictions: ADDITIONAL DISCHARGE INSTRUCTIONS/FOLLOW-UP: #1. New onset right-sided facial droop, right-sided paresthesias, mild right lower extremity drift concerning for CVA/TIA with history of previous CVA with prior right-sided hemiplegia since resolved (denies any ongoing deficits in previous stroke), RULED OUT ACUTE CVA: --MRI of the brain with no acute stroke thus facial changes possibly from previous. --echocardiogram with normal LV size, LV systolic function normal, LVEF of 60%, bubble contrast again negative, mild tricuspid valve insufficiency. --Maintained on asa, statin. --Additional stroke evaluation labs included: Magnesium 1.9, TSH 2.370. FLP with triglyceride 256, total cholesterol 144, LDL 61, VLDL 51, HDL 32, hemoglobin A1c 5.6%. --Given history of prior stroke and presentation concerns although ruled out acute CVA at this time, will refer you to neurology at discharge for continued close monitoring outpatient. Discharge Orders/Prescriptions Prescriptions: Continued aspirin 81 MG tablet 81 mg PO DAILY atorvastatin 40 mg tablet 40 mg PO DAILY buprenorphine-naloxone 8-2 mg tablet, sublingual 2 tab sublingual DAILY multivitamin [Daily Multi-Vitamin] Tablet 1 tab PO DAILY divalproex 500 mg tablet,delayed release (DR/EC) 1,000 mg PO BID escitalopram oxalate 10 mg tablet 10 mg PO DAILY Referrals / Follow Up: Issac Karimi MD [Primary Care Provider] - 01/26/25 1:30 pm (Follow-up in 3-5 days to review Appointment is with Monica Foreman N.P.) Devan Watkins MD [Non-Staff -Ordering Privileges] - (Please follow-up with neurology to establish, may see [facility].) Disposition Disposition (needs filled in before D/C Order can be placed): Home, Self Care Charges/Coding Visit Charges Inpatient E&M: 52413 Disch Hosp >30min
[2025-01-21 08:00] VITALS: BP 133/68; PULSE 68; RESP 15; TEMP 36.4
[2025-01-21] MEDS: Thiamine Hydrochloride 100 MG Tablet PO (09:15)
[2025-01-21] MEDS: Aspirin E.C. 81 MG Tablet PO (09:16)
[2025-01-21 12:00] VITALS: BP 143/74; PULSE 66; RESP 17; O2SAT 97
[2025-01-21 16:00] VITALS: BP 135/72; PULSE 66; RESP 17; TEMP 36.6; O2SAT 97
[2025-01-21 17:00] VITALS: BMI 34.9
[2025-01-21 17:16] LABS: Hematocrit 36.2 % (37-47); Hemoglobin 12.2 g/dL (12.0-15.0); Immature Granulocytes Count 0.030 X10^3/uL (0.0-0.0); Mean Corp Hgb Conc 33.7 g/dL (32-36); Mean Corpuscular Volume 98.6 fL (81-99); Mean Platelet Vol. 10.3 fl (6.2-12.0); NRBC Flagged by Analyzer 0 % (0-5); Platelet Count 150 K/mm3 (150-450); RBC Distribution Width CV 12.3 % (11.6-14.6); RBC Distribution Width SD 44.4 fl (35.1-43.9); Red Blood Count 3.67 M/mm3 (4.2-5.4); White Blood Count 10.1 K/mm3 (4.4-11.0)
[2025-01-21 17:31] LABS: Base Excess 9 mmol/L (-2 to +2); PO2 70 mmHG (75-100); SITE L Radial; SO2 95 % (95-99)
[2025-01-21 17:52] LABS: AST(SGOT) 23 U/L (<=31); Alanine Aminotransfer ALT/SGPT 27 U/L (<=34); Albumin, Serum 3.6 g/dL (3.4-4.8); Alkaline Phosphatase 85 U/L (35-104); Anion Gap 10 (5-15); BUN 13 mg/dL (4-19); BUN/Creat Ratio 19.5 RATIO (10-20); Calcium,Total 9.1 mg/dL (7.6-11.0); Carbon Dioxide 29.1 mmol/L (21.0-32.0); Chloride 100 mmol/L (98-108); Estimated Creatinine Clearance 96.28 ml/min (50-250); Globulin 2.6 g/dL (2.2-4.2); Glucose 92 mg/dL (70-99); Potassium 3.9 mmol/L (3.3-5.1)
[2025-01-21 18:09] LABS: Ammonia 64.9 umol/L (11-51)
[2025-01-21 23:18] VITALS: BMI 34.9
[2025-01-22 02:24] VITALS: BP 115/84; PULSE 62; RESP 16; TEMP 36.6; O2SAT 93
[2025-01-22 06:00] VITALS: BMI 34.5
[2025-01-22 06:40] LABS: AST(SGOT) 31 U/L (<=31); Alanine Aminotransfer ALT/SGPT 22 U/L (<=34); Albumin, Serum 3.7 g/dL (3.4-4.8); Alkaline Phosphatase 85 U/L (35-104); Anion Gap 12 (5-15); BUN 12 mg/dL (4-19); BUN/Creat Ratio 18.4 RATIO (10-20); Calcium,Total 9.0 mg/dL (7.6-11.0); Carbon Dioxide 26.2 mmol/L (21.0-32.0); Chloride 101 mmol/L (98-108); Estimated Creatinine Clearance 94.22 ml/min (50-250); Globulin 2.8 g/dL (2.2-4.2); Glucose 87 mg/dL (70-99); Potassium 3.9 mmol/L (3.3-5.1)
[2025-01-22 06:50] LABS: Ammonia 44.6 umol/L (11-51)
--- NOTE | 2025-01-22 07:10 | PCM.PN.HOSP ---
Reason for Visit Reason for Visit: Diagnoses Alcohol use, unspecified with withdrawal, unspecified (01/17/25) Facial weakness (01/17/25) Unspecified convulsions (01/17/25) Objective Data Objective Data Vital Signs: Vital Signs Temp Pulse Resp BP Pulse Ox O2 Del Method O2 Flow Rate 97.9 F 62 16 115/84 H 93 Room Air 2 01/22/25 02:24 01/22/25 02:24 01/22/25 02:24 01/22/25 02:24 01/22/25 02:24 01/22/25 02:53 01/20/25 14:49 Oxygen Flow Rate (L/min) 2 Oxygen Delivery Method Room Air Weight: 195 lb 1.745 oz Body Mass Index (BMI) 34.5 Intake & Output: Intake and Output for Last 24 Hours 01/20/25 01/21/25 01/22/25 23:59 23:59 23:59 Intake Total 930 / 1130 200 / 200 Balance 930 / 1130 200 / 200 Lab / Micro Data 01/21/25 17:01 01/22/25 05:50 Labs: Laboratory Results - last 24 hr 01/21/25 17:01: WBC 10.1, RBC 3.67 L, Hgb 12.2, Hct 36.2 L, MCV 98.6, MCH 33.2 H, MCHC 33.7, RDW Std Deviation 44.4 H, RDW Coeff of Adilia 12.3, Plt Count 150, MPV 10.3, Immature Gran % (Auto) 0.300, Neut % (Auto) 63.8, Lymph % (Auto) 26.5, Sharkey % (Auto) 6.7, Eos % (Auto) 2.0, Baso % (Auto) 0.7, Absolute Neuts (auto) 6.5, Absolute Lymphs (auto) 2.69, Nucleated RBC % 0, Sodium 139, Potassium 3.9, Chloride 100, Carbon Dioxide 29.1, Anion Gap 10, BUN 13, Creatinine 0.66 L, Estim Creat Clear Calc 96.28, Est GFR (MDRD) Non-Af 101, BUN/Creatinine Ratio 19.5, Glucose 92, Calcium 9.1, Total Bilirubin 0.35, AST 23, ALT 27, Alkaline Phosphatase 85, Ammonia 64.9 H, Total Protein 6.2, Albumin 3.6, Globulin 2.6, Albumin/Globulin Ratio 1.4 01/22/25 05:50: Sodium 139, Potassium 3.9, Chloride 101, Carbon Dioxide 26.2, Anion Gap 12, BUN 12, Creatinine 0.67 L, Estim Creat Clear Calc 94.22, Est GFR (MDRD) Non-Af 100, BUN/Creatinine Ratio 18.4, Glucose 87, Calcium 9.0, Total Bilirubin 0.42, AST 31, ALT 22, Alkaline Phosphatase 85, Ammonia 44.6, Total Protein 6.4, Albumin 3.7, Globulin 2.8, Albumin/Globulin Ratio 1.3 ABG Data ABG results: ABG 01/21/25 17:28 Specimen Type ART Sample Site L Radial pH 7.49 H Bicarbonate Actual 32.5 H Total CO2 34 Base Excess 9 H O2 Saturation 95 ABG pCO2 42.9 ABG pO2 70 L Collin Test N/A O2 Delivery Device Room Air Vent Mode Not entered Physical Exam Narrative Physical Examination: General: Awakens to discussions but is very lethargic with recent sedating medication, alert when she is awoken but does quickly fall back asleep, able to carry on some discussions and she is oriented appropriately but again becomes very fatigued quickly, remains cooperative, seated upright in the PCU bed, very lethargic, recent sedated medication but does awaken to discussion but quickly falls back asleep. Skin: Normal color, normal turgor, no icterus, no cyanosis except occasional stage ecchymoses, abrasion. HEENT: AT/NC, EOMI, PERRLA, MMM, persistent stable mild right-sided nasolabial flattening and small droop, corrects with smiling, no tongue deviation, suspect chronic from previous stroke. Lungs: CTA bilaterally, moderate effort, mild decrease BL bases, no rales, ronchi or wheezing. Heart: Regular rate and rhythm; no gallop, rub audible. Abdomen: Soft, obese, NTTP, normal BS, no obvious distention. 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 Neurological: Patient awake, alert, oriented as noted, cognitive function intact; pupils equally reactive to light and accommodation, cranial nerves grossly normal, moving both upper and right lower extremity, status post left lower extremity amputation at the pelvis, sensation intact, no evidence of any withdrawal symptoms. Psychiatric: Affect appears very fatigued, recent sedated medication, no acute evidence of depressive or anxiety feelings but does have underlying history, denies any suicidal ideation. Assessment & Plan Assessment/Plan (1) Alcohol withdrawal: (2) Seizure: (3) Facial droop: PLAN: Plan The patient is a 59 y/o F w/ PMHx: Obesity, Polysubstance abuse (Opiate on suboxone, EtOH abuse) history per chart report, Anxiety and Depression, HLD, Seizure disorder, Hx CVA (L MCA chart reported) w/ previous chart history of R sided chronic hemiplegia, s/p Prior Trauma s/p LLE amputation who presents to the [facility] ED on 01/17/25 with history of concern for possible seizure on morning day of presentation with last drink the day prior in the a.m. with concern for withdrawal seizures prompting ED evaluation with request for detoxification with onset of incidentally noted right-sided facial droop in the ED with stroke alert initiated. #1. New onset right-sided facial droop, right-sided paresthesias, mild right lower extremity drift concerning for CVA/TIA with history of previous CVA with prior right-sided hemiplegia since resolved (denies any ongoing deficits in previous stroke), RULED OUT ACUTE CVA: Admitted to PCU, MRI of the brain with no acute stroke thus facial changes possibly from previous, echocardiogram with normal LV size, LV systolic function normal, LVEF of 60%, bubble contrast again negative, mild tricuspid valve insufficiency. Maintained on asa, statin. Magnesium 1.9, TSH 2.370. FLP with triglyceride 256, total cholesterol 144, LDL 61, VLDL 51, HDL 32, hemoglobin A1c 5.6%. Neurology has signed off given patient clinical improvement and stroke rule out. Given taper completes 01/21/2025 per discussion with pharmacy with readjustment we will plan discharge to home today with plan follow-up with PCP and neurology outpatient given her previous stroke history. #2. Acute EtOH Withdrawal with concern for alcohol withdrawal associated seizure with history of previous similar presentation: Given interest in sobriety, initiated and continued on protocol with taper course of Phenobarbital, as needed gabapentin, Catapres, Bentyl, Vistaril, IV fluids, IV antiemetics, Tylenol as needed for pain. Will consult Case management for assistance for transition to next level of rehabilitation care. Mag 1.9, phosphorus mildly decreased 2.5 with supplementation administered. Maintain on CIWA protocol concurrently. Will maintain on antiepileptic medication. 01/21/2025 we discussed tapering system with pharmacy given patient significantly lethargic presentation with medications, will plan hold until less sedate with potentially 1 more dose and will plan discharge 01/21/2025 after dinner. Patient declined to discussed options for transition to a more outpatient program unfortunately. #3. Complex partial seizures w/ recent acute EtOH withdrawal seizure as noted #2: Valproic acid level 97 thus within range and patient does note being compliant with his medications. 01/17/2025 administered dose x 1 given presentation. Once patient was clinically improved and on phenobarbital taper de-escalated off seizure precautions. #4. Elevated BP without hypertensive diagnosis: BP elevated above goal, improved without intervention, remains appropriately within range. Encourage continued outpatient follow-up with PCP and continue BP assessment given underlying history would be appropriate for hypertensive regimen if above goal. #5. History of polysubstance abuse with opiate dependence: Noted be in remission for several years, reports continued clean status, UDS obtained with noted presumptive positive buprenorphine, continue Suboxone regimen. #6. History of previous left lower extremity MRSA infection status post left lower extremity amputation: Remote history of left lower extremity amputation with significant MRSA wound history, usually uses crutches and wheelchair, PT/OT consulted as noted. #7. Anxiety and depression: Initial concerns upon presentation with recent intoxication of suicidal ideation and but now the patient is more alert and interactive she denies any suicidal aviation and does admit to anxiety and depression ongoing but no intention of self-harm. Suicide precautions discontinued in the ED. #8. Hyperlipidemia: Continue home statin regimen. AM FLP obtained as noted. #9. DVT prophylaxis: Lovenox. NIHSS NIHSS Nursing Documentation NIHSS Nursing Documentation: NIHSS: Ischemic Stroke/TIA Start: 01/17/25 13:47 Text: For PCU Patients: NIH and Neuro Check every 4 Status: Complete hours, PRN and with change in RN caregiver. Freq: [id number] Protocol: Activity Type Activity Date Activity User E-sign Co-sign Detail Recorded Client Recorded Date Recorded By Document 01/17/25 17:30 ML [id number] 01/17/25 18:10 ML 01/17/25 17:30 NIH Stroke Scale [NIHSS] A score of 0 is normal or asymptomatic . Total possible score is 42. Inpatient: RN or Physician to activate a stroke alert for onset of new stroke symptoms or with NIHSS increase >/= 3 points. Following change in neurological status, NIHSS will be performed per physician order or more frequently PRN. -1a. Level of Consciousness 0 - Alert; keenly responsive -1b. LOC Questions 0 - Answers BOTH questions correctly -1c. LOC Commands 0 - Performs BOTH tasks correctly -2. Best Gaze 0 - Normal -3. Visual 1 - Partial hemianopia -4. Facial Palsy 1 - Minor paralysis ( flattened nasolabial fold , asymmetry on smiling) -5a. Left Arm 0 - No drift; arm holds 90 ( or 45) degrees for full 10 seconds -5b. Right Arm 0 - No drift; arm holds 90 ( or 45) degrees for full 10 seconds -6a. Left Leg UN - Amputation or joint fusion, explain : -'UN' explanation amp. -6b. Right Leg 1 - Drift; leg falls by the end of 5- seconds, but does not hit bed -7. Limb Ataxia 0 - Absent -8. Sensory 1 - Mild-to- moderate sensory loss; -9. Best Language 0 - No aphasia; normal -10. Dysarthria 1 = Mild-to- moderate dysarthria; -11. Extinction and Inattention 0 - No abnormality -Total 5 Query Text:A score of 0 is normal or asymptomatic. Total possible score is 42 . ED: Notify Physician for NIHSS increase by > / = 3 points. Inpatient: RN or Physician to activate a stroke alert for NIHSS increase of > / = 3 points. Coma Scale [Assess] -Eye Opening Spontaneous -Motor Obeys Commands -Verbal Oriented [Total] -Coma Scale Total 15
[2025-01-22 08:00] VITALS: BP 108/83; PULSE 81; RESP 16; TEMP 36.9; O2SAT 96
[2025-01-22] MEDS: Aspirin E.C. 81 MG Tablet PO (08:06)
[2025-01-22] MEDS: Thiamine Hydrochloride 100 MG Tablet PO (08:06)
[2025-01-22 08:46] LABS: Mucous, Urine 0 SEEN /hpf (<or=2+); Squamous Epithelial Cells - UA 0 SEEN /hpf (5-10)
[2025-01-22 08:55] LABS: Color, Urine Yellow (Yellow); Glucose, Dipstick Normal (Normal); Ketone-Dipstick 15 mg/dl (Negative); Leukocyte Esterase-Dipstick 500 /ul (Negative); Nitrite-Dipstick Negative (Negative); Occult Blood-Urine 250 /ul (Negative); Protein-Dipstick 500 mg/dl (Negative); Specific Gravity, Urine 1.025 (1.002-1.030); Urine Bilirubin Dipstick Negative (Negative)
[2025-01-22 09:10] LABS: Red Blood Cells-Urine > 100 SEEN /hpf (0-5)
[2025-01-22 09:12] LABS: Transitional Epithelial - Ur 0-5 SEEN /hpf (0-5)
--- NOTE | 2025-01-22 09:27 | PCM.PN.HOSP ---
Reason for Visit Reason for Visit: Diagnoses Alcohol use, unspecified with withdrawal, unspecified (01/17/25) Facial weakness (01/17/25) Unspecified convulsions (01/17/25) Subjective Subjective Patient the evening prior had discharge delayed secondary to significant lethargy felt likely secondary to phenobarbital which eventually was held coupled with patient ongoing Suboxone usage. Workup included ABG which was not marked appearing, repeat CBC and CMP with no acute findings and ammonia level which was mildly increased with lactulose administration. This morning patient is alert and oriented with ammonia level corrected. She does complain of some mild dysuria thus urine obtained and is concerning for possible UTI with antibiotic therapy oral regimen plan for discharge following culture review. Patient denies fevers, chills, nausea, emesis, abdominal pain, chest pain or dyspnea. Objective Data Objective Data Vital Signs: Vital Signs Temp Pulse Resp BP Pulse Ox O2 Del Method O2 Flow Rate 98.5 F 81 16 108/83 H 96 Room Air 2 01/22/25 08:00 01/22/25 08:00 01/22/25 08:00 01/22/25 08:00 01/22/25 08:00 01/22/25 08:38 01/20/25 14:49 Oxygen Flow Rate (L/min) 2 Oxygen Delivery Method Room Air Weight: 195 lb 1.745 oz Body Mass Index (BMI) 34.5 Intake & Output: Intake and Output for Last 24 Hours 01/20/25 01/21/25 01/22/25 23:59 23:59 23:59 Intake Total 930 / 1130 200 / 200 Balance 930 / 1130 200 / 200 Lab / Micro Data 01/21/25 17:01 01/22/25 05:50 Labs: Laboratory Results - last 24 hr 01/21/25 17:01: WBC 10.1, RBC 3.67 L, Hgb 12.2, Hct 36.2 L, MCV 98.6, MCH 33.2 H, MCHC 33.7, RDW Std Deviation 44.4 H, RDW Coeff of Adilia 12.3, Plt Count 150, MPV 10.3, Immature Gran % (Auto) 0.300, Neut % (Auto) 63.8, Lymph % (Auto) 26.5, Catron % (Auto) 6.7, Eos % (Auto) 2.0, Baso % (Auto) 0.7, Absolute Neuts (auto) 6.5, Absolute Lymphs (auto) 2.69, Nucleated RBC % 0, Sodium 139, Potassium 3.9, Chloride 100, Carbon Dioxide 29.1, Anion Gap 10, BUN 13, Creatinine 0.66 L, Estim Creat Clear Calc 96.28, Est GFR (MDRD) Non-Af 101, BUN/Creatinine Ratio 19.5, Glucose 92, Calcium 9.1, Total Bilirubin 0.35, AST 23, ALT 27, Alkaline Phosphatase 85, Ammonia 64.9 H, Total Protein 6.2, Albumin 3.6, Globulin 2.6, Albumin/Globulin Ratio 1.4 01/22/25 05:50: Sodium 139, Potassium 3.9, Chloride 101, Carbon Dioxide 26.2, Anion Gap 12, BUN 12, Creatinine 0.67 L, Estim Creat Clear Calc 94.22, Est GFR (MDRD) Non-Af 100, BUN/Creatinine Ratio 18.4, Glucose 87, Calcium 9.0, Total Bilirubin 0.42, AST 31, ALT 22, Alkaline Phosphatase 85, Ammonia 44.6, Total Protein 6.4, Albumin 3.7, Globulin 2.8, Albumin/Globulin Ratio 1.3 01/22/25 08:39: Urine Color Yellow, Urine Clarity Cloudy, Urine pH 5.0, Ur Specific Enterprise 1.025, Urine Protein 500 H, Urine Glucose (UA) Normal, Urine Ketones 15 H, Urine Occult Blood 250 H, Urine Nitrite Negative, Urine Bilirubin Negative, Urine Urobilinogen 1 H, Ur Leukocyte Esterase 500 H, Urine RBC > 100 SEEN, Urine WBC >100 SEEN, Ur Squamous Epith Cells 0 SEEN, Ur Transition Epith Cell 0-5 SEEN, Urine Bacteria 1+, Urine Mucus 0 SEEN ABG Data ABG results: ABG 01/21/25 17:28 Specimen Type ART Sample Site L Radial pH 7.49 H Bicarbonate Actual 32.5 H Total CO2 34 Base Excess 9 H O2 Saturation 95 ABG pCO2 42.9 ABG pO2 70 L Collin Test N/A O2 Delivery Device Room Air Vent Mode Not entered Physical Exam Narrative Physical Examination: General: Awake, alert, oriented x 3, cooperative, seated upright in the PCU bed, alert and more cognizant, asking for her Suboxone, notes some mild dysuria but not severe but believes she has a UTI. Skin: Normal color, normal turgor, no icterus, no cyanosis except occasional stage ecchymoses, abrasion. HEENT: AT/NC, EOMI, PERRLA, MMM, persistent stable mild right-sided nasolabial flattening and small droop, corrects with smiling, no tongue deviation, suspect chronic from previous stroke. Lungs: CTA bilaterally, moderate effort, mild decrease BL bases, no rales, ronchi or wheezing. Heart: Regular rate and rhythm; no gallop, rub audible. Abdomen: Soft, obese, NTTP, normal BS, no obvious distention. 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 Neurological: Patient awake, alert, oriented as noted, cognitive function intact; pupils equally reactive to light and accommodation, cranial nerves grossly normal, moving both upper and right lower extremity, status post left lower extremity amputation at the pelvis, sensation intact, no obvious withdrawal symptoms. Psychiatric: Affect appears more interactive, no acute evidence of depressive or anxiety feelings but does have underlying history, denies any suicidal ideation. Assessment & Plan Assessment/Plan (1) Alcohol withdrawal: (2) Seizure: (3) Facial droop: PLAN: Plan The patient is a 59 y/o F w/ PMHx: Obesity, Polysubstance abuse (Opiate on suboxone, EtOH abuse) history per chart report, Anxiety and Depression, HLD, Seizure disorder, Hx CVA (L MCA chart reported) w/ previous chart history of R sided chronic hemiplegia, s/p Prior Trauma s/p LLE amputation who presents to the [facility] ED on 01/17/25 with history of concern for possible seizure on morning day of presentation with last drink the day prior in the a.m. with concern for withdrawal seizures prompting ED evaluation with request for detoxification with onset of incidentally noted right-sided facial droop in the ED with stroke alert initiated. #1. New onset right-sided facial droop, right-sided paresthesias, mild right lower extremity drift concerning for CVA/TIA with history of previous CVA with prior right-sided hemiplegia since resolved (denies any ongoing deficits in previous stroke), RULED OUT ACUTE CVA: Admitted to PCU, MRI of the brain with no acute stroke thus facial changes possibly from previous, echocardiogram with normal LV size, LV systolic function normal, LVEF of 60%, bubble contrast again negative, mild tricuspid valve insufficiency. Maintained on asa, statin. Magnesium 1.9, TSH 2.370. FLP with triglyceride 256, total cholesterol 144, LDL 61, VLDL 51, HDL 32, hemoglobin A1c 5.6%. Neurology has signed off given patient clinical improvement and stroke rule out. Delay discharge thus discharging 01/22/2025 with plan for follow-up with PCP and neurology outpatient given her previous stroke history. #2. Acute EtOH Withdrawal with concern for alcohol withdrawal associated seizure with history of previous similar presentation: Given interest in sobriety, initiated and continued on protocol with taper course of Phenobarbital, as needed gabapentin, Catapres, Bentyl, Vistaril, IV fluids, IV antiemetics, Tylenol as needed for pain. Will consult Case management for assistance for transition to next level of rehabilitation care. Mag 1.9, phosphorus mildly decreased 2.5 with supplementation administered. Maintain on CIWA protocol concurrently. Will maintain on antiepileptic medication. 01/21/2025 given lethargy regimen altered, patient with increase sedation later in the day thus discharge deferred with repeat CBC/CMP without marked findings, ABG not marked appearing however patient did have mildly elevated ammonia level with minimal lactulose administered with repeat level this a.m. corrected. Suspect that patient lethargy was likely secondary to phenobarbital in addition to her Suboxone therapy. Given patient alert and appropriate will discharge 01/22/2025. #3. Acute Urinary Tract Infection: 01/22/2025 noting dysuria and patient believes she has a urinary tract infection, obtained UA which is notable, requested urine culture, per discussion with patient preference to start antibiotic therapy with oral Keflex based on previous cultures. Most recent urine culture with actual growth instead of mixed gram-positive/gram-negative organisms 07/31/2020 with greater than 100,000 presumptive E. coli with resistant to ampicillin, and sensitivity to Unasyn, resistance to ciprofloxacin, resistance to gentamicin, resistance to Levaquin, and sensitivity to tobramycin, resistance to Bactrim. Based on the sensitivities will initiate on Keflex. Requested patient follow-up with primary care physician office as urine culture will pending upon discharge to assure she is on the correct agent. #4. Mild hyperammonemia: Patient with increased ideation 01/21/2025, suspected multifactorial including possible component sleep apnea, Suboxone coupled with phenobarbital regimen, phenobarbital regimen held and discharge deferred 01/21/2025 evening, ABG not marked appearing, repeat CBC/CMP not marked appearing, ammonia level mildly elevated, administered single dose of lactulose and this morning patient is much more alert and back to baseline with normalized ammonia level. #5. Complex partial seizures w/ recent acute EtOH withdrawal seizure as noted #2: Valproic acid level 97 thus within range and patient does note being compliant with his medications. 01/17/2025 administered dose x 1 given presentation. Initially on seizure precautions, de-escalated. #6. Elevated BP without hypertensive diagnosis: BP elevated above goal, improved without intervention, remains appropriately within range. Encourage continued outpatient follow-up with PCP and continue BP assessment given underlying history would be appropriate for hypertensive regimen if above goal. #7. History of polysubstance abuse with opiate dependence: Noted be in remission for several years, reports continued clean status, UDS obtained with noted presumptive positive buprenorphine, continue Suboxone regimen. #8. History of previous left lower extremity MRSA infection status post left lower extremity amputation: Remote history of left lower extremity amputation with significant MRSA wound history, usually uses crutches and wheelchair, PT/OT consulted as noted. #9. Anxiety and depression: Initial concerns upon presentation with recent intoxication of suicidal ideation and but now the patient is more alert and interactive she denies any suicidal aviation and does admit to anxiety and depression ongoing but no intention of self-harm. Suicide precautions discontinued in the ED. #10. Hyperlipidemia: Continue home statin regimen. AM FLP obtained as noted. #11. DVT prophylaxis: Lovenox. Charges/Coding Visit Charges Inpatient E&M: 42944 Subs Hosp L2 NIHSS NIHSS Nursing Documentation NIHSS Nursing Documentation: NIHSS: Ischemic Stroke/TIA Start: 01/17/25 13:47 Text: For PCU Patients: NIH and Neuro Check every 4 Status: Complete hours, PRN and with change in RN caregiver. Freq: [id number] Protocol: Activity Type Activity Date Activity User E-sign Co-sign Detail Recorded Client Recorded Date Recorded By Document 01/17/25 17:30 ML [id number] 01/17/25 18:10 ML 01/17/25 17:30 NIH Stroke Scale [NIHSS] A score of 0 is normal or asymptomatic . Total possible score is 42. Inpatient: RN or Physician to activate a stroke alert for onset of new stroke symptoms or with NIHSS increase >/= 3 points. Following change in neurological status, NIHSS will be performed per physician order or more frequently PRN. -1a. Level of Consciousness 0 - Alert; keenly responsive -1b. LOC Questions 0 - Answers BOTH questions correctly -1c. LOC Commands 0 - Performs BOTH tasks correctly -2. Best Gaze 0 - Normal -3. Visual 1 - Partial hemianopia -4. Facial Palsy 1 - Minor paralysis ( flattened nasolabial fold , asymmetry on smiling) -5a. Left Arm 0 - No drift; arm holds 90 ( or 45) degrees for full 10 seconds -5b. Right Arm 0 - No drift; arm holds 90 ( or 45) degrees for full 10 seconds -6a. Left Leg UN - Amputation or joint fusion, explain : -'UN' explanation amp. -6b. Right Leg 1 - Drift; leg falls by the end of 5- seconds, but does not hit bed -7. Limb Ataxia 0 - Absent -8. Sensory 1 - Mild-to- moderate sensory loss; -9. Best Language 0 - No aphasia; normal -10. Dysarthria 1 = Mild-to- moderate dysarthria; -11. Extinction and Inattention 0 - No abnormality -Total 5 Query Text:A score of 0 is normal or asymptomatic. Total possible score is 42 . ED: Notify Physician for NIHSS increase by > / = 3 points. Inpatient: RN or Physician to activate a stroke alert for NIHSS increase of > / = 3 points. Coma Scale [Assess] -Eye Opening Spontaneous -Motor Obeys Commands -Verbal Oriented [Total] -Coma Scale Total 15
--- NOTE | 2025-01-22 11:41 | CASEMGMT ---
Social Work Physician requesting home health PT/OT be set up for pt. SARAH met with pt and a list of [facility] providers including quality and resource use data and consistent with the patient?s preferred geographic region, medical needs, and insurance network were provided from the [employer] Guide. Pt preferred provider is [facility]. Referral left on [facility] VM. SARAH assisted pt in calling a friend Nimisha to arrange transportation home. Nimisha is able to come at this time to pick pt up. Phone call to retail pharmacy and they will bring pt's meds to her now. Nursing notified. Plan: DC home with [facility] PT/OT referral LAW Garcia
[2025-01-22 12:00] VITALS: BP 108/63; PULSE 81; RESP 16; TEMP 36.9; O2SAT 96
== END 2025-01-22 12:10 | disposition home health service (06) | DRG 897 ==
LOC: ED 12:42 → PCU 12:53
PROVIDERS: Admitting Provider Family Medicine; Emergency Provider Emergency Medicine; PCP Family Medicine; Visit Provider Family Medicine
DX: F10.939 Alcohol use, unspecified with withdrawal, unspecified (principal); E72.20 Disorder of urea cycle metabolism, unspecified; G40.209 Localization-related (focal) (partial) symptomatic epilepsy and epileptic syndromes with complex partial seizures, not intractable, without status epilepticus; I69.351 Hemiplegia and hemiparesis following cerebral infarction affecting right dominant side; R45.851 Suicidal ideations; F32.A Depression, unspecified; I10 Essential (primary) hypertension; D64.9 Anemia, unspecified; F41.9 Anxiety disorder, unspecified; G47.30 Sleep apnea, unspecified; E78.5 Hyperlipidemia, unspecified; Z79.82 Long term (current) use of aspirin; Z79.899 Other long term (current) drug therapy; R29.810 Facial weakness; Z90.710 Acquired absence of both cervix and uterus; R03.0 Elevated blood-pressure reading, without diagnosis of hypertension; Z86.14 Personal history of Methicillin resistant Staphylococcus aureus infection; Z90.49 Acquired absence of other specified parts of digestive tract; Y90.9 Presence of alcohol in blood, level not specified
CPT/HCPCS: 36415; 36600; 70450; 70496; 70498; 70551; 80048; 80053; 80061; 80076; 80164; 81001; 82077; 82140; 82803; 82962; 83036; 83735; 84100; 84443; 84484; 85025; 85610; 85730; 93005; 93306; 94668; 97162; 97166; 97530; 97535; 97802; 99285; Q9967; A4216; J2405

== ENCOUNTER 2025-01-24 13:17 | Emergency (ER) | payer OTHER, SELFPAY ==
[2025-01-24 13:20] VITALS: BP 135/86; PULSE 80; RESP 16; TEMP 36.4; O2SAT 99; BMI 35.3
--- NOTE | 2025-01-24 13:46 | RAD_ITS ---
PROCEDURE: PELVIS 1 OR 2 VIEWS 01/24/2025 REASON FOR EXAM: FALL/INJURY LEFT TECHNIQUE: PELVIS 1 OR 2 VIEWS COMPARISON: None FINDINGS: Hardware: None Bones: Diffuse osteopenia of the bony pelvis is noted. There has been amputation of the left leg. Surgical clips are seen in this location. Right hip joint is well preserved. SI joints are well preserved. Pubic symphysis is unremarkable. No obvious acute fractures or dislocations are seen. Degenerative changes of the lower lumbar spine are noted. Joints: The right hip joint is well preserved. Soft tissues: Soft tissue swelling in the left pelvic region is noted. RAD/Pelvis 1 or 2 Views IMPRESSION: Soft tissue swelling left pelvic region. No obvious displaced fractures are se en. If the patient continues to have symptoms, follow-up imaging is recommended to exclude an occult fracture. Reading Location: [id number]
[2025-01-24] MEDS: Ketorolac 30 MG/ML Syringe IM (14:07)
[2025-01-24 14:26] VITALS: O2SAT 98
--- NOTE | 2025-01-24 14:27 | EDS_ITS ---
HPI HPI - Fall History of Present Illness Chief Complaint: Fall Informant: patient and EMS Narrative Narrative: 59-year-old female had a fall just prior to arrival by EMS. 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 Last night she was in her garage watering some plants and her wheelchair ramp got wet, this morning she was coming down in her wheelchair and apparently was still wet and something happened that ended up tossing her forward out of the wheelchair, landing on the left buttock/hip, area of her prior hip disarticulation. It hurts to sit in this area due to the pain now. States she bumped her head but she does not have any complaints there and states she does not have a headache, there was no loss of consciousness, she did not hit it very hard it was her buttock and pelvis that she was worried about. She denies any abdominal pain or low back pain. No other injuries. Takes no anticoagulants. [facility] Medical History Acute stroke due to occlusion of left middle cerebral artery Right sided weakness Anxiety and depression Alcohol abuse Amputation of leg Seizures Substance abuse Opioid use disorder History of drug overdose Unilateral above knee amputation Seizures Hyperlipidemia Home Medications ?Medication ?Instructions ?Recorded ?Last Taken ?Type aspirin 81 mg tablet,delayed 81 mg PO DAILY heart heal th 05/20/18 07/17/24 History release atorvastatin 40 mg tablet 40 mg PO DAILY cholesterol 0 12/26/23 01/16/25 History buprenorphine 8 mg-naloxone 2 mg 2 tab sublingual GEETA Y addiction 12/26/23 01/17/25 History sublingual tablet escitalopram oxalate 10 mg tablet 10 mg PO DAILY MedGRC 07/17/24 01/17/25 History divalproex 500 mg tablet,delayed 1,000 mg PO BID Seizu re disorder 01/17/25 01/17/25 History release multivitamin (Daily Multi-Vitamin 1 tab PO DAILY vitam in 01/17/25 01/16/25 History tablet) cephalexin 500 mg capsule 500 mg PO BID 5 days #10 cap s 01/22/25 Unknown Rx Allergy/AdvReac Type Severity Reaction Status Date / Time metoclopramide HCl (From Allergy shaking Verified 01/24/25 13:24 Reglan) prochlorperazine (From Allergy Hives Verified 01/24/25 13:24 Compazine) promethazine (From Phenergan) Allergy Hives Verified 01/24/25 13:24 Family History Mother Dementia CVA (cerebral vascular accident) Myocardial infarction Father , in his 40s. Heart disease Hypercholesteremia CAD (coronary artery disease) Myocardial infarction Surgical History History of surgery on lower extremity History of carpal tunnel release History of hysterectomy History of cholecystectomy S/P appendectomy H/O wrist surgery Social History household members: none Smoking Status: Never smoker alcohol intake: current alcohol intake frequency: 3 or more drinks per day Alcohol type: hard liquor details: 07/18 rum daily. substance use type: other details: Former, on suboxone. caffeine: No do you feel safe at home: Yes ROS ROS ED Constitutional Constitutional ED: Denies chills or fever(s) Eyes Eyes: Denies change in vision or diplopia ENT ENT ED: Denies ear pain, epistaxis, facial pain or rhinorrhea Cardiovascular Cardiovascular: Denies chest pain or palpitations Respiratory/Chest Respiratory/Chest: Denies cough or dyspnea Gastrointestinal Gastrointestinal: Denies abdominal pain, diarrhea, melena, nausea or vomiting Genitourinary Genitourinary ED: Denies dysuria or hematuria Musculoskeletal Musculoskeletal: Reports other Details: Left buttock/hip pain ; Denies back pain, extremity pain or neck pain Integumentary Denies abscess, Abrasions, laceration or rash Neurologic Neurologic: Denies confusion, headache(s), paresthesias or weakness EXAM Physical Exam Const Vital Signs: 01/24/25 13:20 01/24/25 14:26 Temperature 97.6 F L Temperature Source Oral Pulse Rate 80 Respiratory Rate 16 Respiratory Effort Normal Respiratory Depth Normal Respiratory Pattern Normal Blood Pressure 135/86 H Blood Pressure Mean 102 Pulse Ox 99 98 Oxygen Delivery Method Room Air Room Air Positive well nourished and well developed General Appearance ED: well developed and NAD HEENT Reports TM's clear and nasal mucous membranes and turbinates normal atraumatic Face and Sinus: Negative for facial tenderness Tympanic Membrane ED: Yes TM's clear Eyes PERRL and EOMs intact bilaterally Visual Acuity: other Other Details: no entrapment or pain with extraocular movements Neck full ROM and supple General: Negative for tenderness Chest Wall inspection of chest normal and palpation of chest normal Chest: symmetrical chest wall rise; Negative for crepitus or tenderness Resp normal respiratory effort and clear to auscultation bilaterally Percussion: other equal BS bilat Cardio no murmurs Rate: regular rate Rhythm: regular rhythm GI normal to inspection, nondistended, normoactive bowel sounds, soft to palpation and non-tender Back/Spine normal ROM Cervical Spine: Negative for cervical spine tenderness Thoracic Spine / Upper Back: Negative for thoracic spinal tenderness Lumbar Spine / Lower Back: Negative for lumbar spinal tenderness Extremity normal to inspection and full ROM Extremity Narrative: Status post left hip disarticulation, surgical scars intact well-healed. There is pain and tenderness in the left buttock, inspection is normal I do not see or feel anything consistent with a hematoma or purpura/ecchymosis. I am able to palpate the ischial tuberosity and it is nontender, the soft tissue pain and tenderness is posterior and a little cranial to this. The pelvis is stable to AP compression. The ASIS and the rest of the pelvic rim is all nontender. The pubic bone is nontender. General Extremety ED: Negative for tenderness Neuro oriented x3, CN's II-XII intact bilaterally, moves all extremities, no focal motor deficits and no sensory deficits noted Rumford Coma Scale: document GCS findings Spontaneous Obeys Commands Oriented 15 Sensorium / Orientation: awake and alert Psych mental status grossly normal and thought process normal Skin no wounds Lesions: no lesions Rashes: no rashes MDM MDM MDM Narrative Medical decision making narrative: Patient states she just arrived home from alcohol detox, she is on Suboxone because after her hip disarticulation she was physically dependent on opioids, she has been off of them for over a decade but continuing to be on Suboxone. Therefore we gave her some Toradol and did a pelvis x-ray. 1 view in my interpretation shows no acute fractures or other acute abnormalities. I do not think she needs a CT scan to look in this area, her acetabulum and the surrounding bony structures appear normal and uninjured. Patient reassured, I do not think she needs a CT of the head, she was observed and did not develop any symptoms of a head injury, and I think she is stable to be discharged home with supportive care. She is doing well clinically and was sleeping on my reevaluation. Radiography Diagnostic Testing: Clinical Impression(s) from Imaging Studies Pelvis X-Ray 01/24/25 13:46 IMPRESSION: Soft tissue swelling left pelvic region. No obvious displaced fractures are seen. If the patient continues to have symptoms, follow-up imaging is recommended to exclude an occult fracture. Reading Location: [facility] Discharge Plan Triage Chief Complaint: Fall ED Provider: Vadim Mathias Dx/Rx/DC Orders Clinical Impression: Contusion of left buttock, Accidental fall from wheelchair, History of disarticulation of left hip Instructions: Bruises (Contusions) Prescriptions: No Action aspirin 81 MG tablet 81 mg PO DAILY atorvastatin 40 mg tablet 40 mg PO DAILY buprenorphine-naloxone 8-2 mg tablet, sublingual 2 tab sublingual DAILY multivitamin [Daily Multi-Vitamin] Tablet 1 tab PO DAILY divalproex 500 mg tablet,delayed release (DR/EC) 1,000 mg PO BID cephalexin 500 mg capsule 500 mg PO BID 5 Days Qty: 10 0RF escitalopram oxalate 10 mg tablet 10 mg PO DAILY Primary Care Provider: Issac Karimi Referrals: Issac Karimi MD [Primary Care Provider] - 1 Week if not improving Print Language: Tajik Disposition Disposition: Home, Self Care
--- NOTE | 2025-01-24 14:27 | ED.RN ---
PT IS A LEFT LEG AMPUTATION. SHE FELL OUT OF HER WC AND HIT HER LEFT HIP ON THE CONCRETE. PT STATES PAIN 7/10 TO THE BACK SIDE OF HER LEFT HIP AND BUTTOCK.
[2025-01-24 15:27] VITALS: BP 103/53; PULSE 73; RESP 16; TEMP 36.3; O2SAT 96
--- NOTE | 2025-01-25 08:47 | CASEMGMT ---
Discharge Planning Call rec'd from [facility] declining referral d/t no skillable dx. Msg left with pt asking if she would like additional referrals made. Shandra Plascencia DC Planning Asst.
== END 2025-01-24 15:28 | disposition home or self-care (01) ==
PROVIDERS: Emergency Provider Emergency Medicine; PCP Family Medicine; Visit Provider Emergency Medicine
DX: S30.0XXA Contusion of lower back and pelvis, initial encounter (principal); E78.5 Hyperlipidemia, unspecified; Z99.3 Dependence on wheelchair; W05.0XXA Fall from non-moving wheelchair, initial encounter; Z98.890 Other specified postprocedural states; Z87.39 Personal history of other diseases of the musculoskeletal system and connective tissue
CPT/HCPCS: 72170; 96372; 99284

== ENCOUNTER → 2025-04-27 | Outpatient (CLI) | payer OTHER, SELFPAY ==
[2025-04-27 15:10] LABS: Hematocrit 35.9 % (37-47); Hemoglobin 12.9 g/dL (12.0-15.0); Mean Corp Hgb Conc 35.9 g/dL (32-36); Mean Corpuscular Volume 92.8 fL (81-99); Mean Platelet Vol. 10.8 fl (6.2-12.0); Platelet Count 148 K/mm3 (150-450); RBC Distribution Width CV 12.5 % (11.6-14.6); RBC Distribution Width SD 42.4 fl (35.1-43.9); Red Blood Count 3.87 M/mm3 (4.2-5.4); White Blood Count 7.8 K/mm3 (4.4-11.0)
[2025-04-27 15:17] LABS: Valproic Acid (Depakene) Level 132 ug/mL (50-100)
[2025-04-27 15:34] LABS: Ammonia 39.2 umol/L (11-51)
[2025-04-27 15:35] LABS: AST(SGOT) 36 U/L (<=31); Alanine Aminotransfer ALT/SGPT 25 U/L (<=34); Albumin, Serum 3.7 g/dL (3.4-4.8); Alkaline Phosphatase 65 U/L (35-104); Anion Gap 11 (5-15); BUN 14 mg/dL (4-19); BUN/Creat Ratio 21.2 RATIO (10-20); Calcium,Total 8.9 mg/dL (7.6-11.0); Carbon Dioxide 27.3 mmol/L (21.0-32.0); Chloride 96 mmol/L (98-108); Cholesterol 162 mg/dL (<=200); Ferritin 160 ng/mL (22-378); Globulin 2.6 g/dL (2.2-4.2); Glucose 122 mg/dL (70-99); Low Density Lipoprotein Calc. 92 mg/dL; Potassium 3.6 mmol/L (3.3-5.1); Syphilis Antibodies Nonreactive (Nonreactive); Triglycerides 181 mg/dL; Very Low Density Lipoprotein 36 mg/dL (5-40); Vitamin D,25 Hydroxy 83.2 ng/mL (30-100); cholesterol:hdl ratio screen 4.75
[2025-04-28 13:47] LABS: Immature Granulocytes Count 0.090 X10^3/uL (0.0-0.0); NRBC Flagged by Analyzer 0 % (0-5)
[2025-04-28 14:39] LABS: HIV Nonreactive (Nonreactive); Hepatitis B Surface Antigen Nonreactive (Nonreactive); Hepatitis C Antibody Nonreactive (Nonreactive)
[2025-04-29 11:08] LABS: GGTP 84 IU/L (0-60); QNTFERON TB Mitogen Value > 10.00 IU/mL (.); QNTFERON TB Nil Value 0.09 IU/mL (.); QNTFERON TB1+ Ag Value 0.07 IU/mL (.); QNTFERON TB2+ Ag Value 0.12 IU/mL (.); QNTIFERON TB Positive Criteria Negative (Negative)
== END | disposition home or self-care (01) ==
LOC: MTLAB 11:44
PROVIDERS: PCP Family Medicine; Referring Provider Psychiatry & Neurology Neurology; Visit Provider Psychiatry & Neurology Neurology
DX: G40.909 Epilepsy, unspecified, not intractable, without status epilepticus (principal); F10.10 Alcohol abuse, uncomplicated; I10 Essential (primary) hypertension
CPT/HCPCS: 36415; 80053; 80061; 80164; 82140; 82306; 82728; 82977; 85025; 85027; 86480; 86703; 86705; 86706; 86780; 86803; 87340

== ENCOUNTER → 2025-05-13 | Outpatient (CLI) | payer OTHER, SELFPAY ==
--- NOTE | 2025-05-13 14:26 | BI_ITS ---
EXAM: BI/SCRN MAMM (CAD)W/ALYCIA BILAT
== END | disposition home or self-care (01) ==
LOC: OPBI 14:24
PROVIDERS: PCP Family Medicine; Referring Provider Family Medicine; Visit Provider Family Medicine
DX: Z12.31 Encounter for screening mammogram for malignant neoplasm of breast (principal)
CPT/HCPCS: 77063; 77067

== ENCOUNTER 2025-06-27 14:31 | Inpatient (IN) | payer OTHER, SELFPAY ==
[2025-06-27 14:31] VITALS: BP 150/92; PULSE 80; RESP 15; TEMP 37.7; O2SAT 96; BMI 34.3
[2025-06-27 14:38] VITALS: BP 150/92; PULSE 108; RESP 14; O2SAT 96
--- NOTE | 2025-06-27 14:49 | EKG12_ITS ---
Test Reason : O Blood Pressure : */* mmHG Vent. Rate : 77 BPM Atrial Rate : * BPM P-R Int : * ms QRS Dur : 122 ms QT Int : 436 ms P-R-T Axes : * -39 -2 degrees QTcB Int : 493 ms Atrial fibrillation Left axis deviation Right bundle branch block Abnormal ECG Confirmed by SANTIAGO ESPINOSA, VOLODYMYR ([id number]), associate editor MARILYN HAMPTON ([id number]) on 06/28/2025 1:26:31 PM Referred By: Confirmed By: VOLODYMYR HENDERSON MD
--- NOTE | 2025-06-27 15:02 | EDS_ITS ---
HPI History of Present Illness Chief Complaint: Seizure Narrative Narrative: Patient is a 60-year-old female with past medical history of alcohol abuse states that she drinks a bottle of rum every day to day and a half, history of renal hemorrhage, seizures on Depakote hypokalemia who presented to the emergency department with concern for alcohol drawl and wanting detox. She also states that she has been having nausea and vomiting she noted that she had 2 seizures earlier today. States that her last drink was this morning. States that she has gone through alcohol drawl before however has never had to be intubated for this. Patient denies any head injuries or head trauma. Patient denies or sick contacts denies any abdominal pain. Patient states that she has never had a EGD and is unsure if she has varices. Patient denies any black or blood in her stool [facility] Medical History (Updated 06/27/25 @ 18:[address] Kameron Gunderson, DO) Stroke/cerebrovascular accident Seizure Alcohol withdrawal Anxiety and depression Alcohol abuse Amputation of leg Acute stroke due to occlusion of left middle cerebral artery Seizures Substance abuse Opioid use disorder History of drug overdose Unilateral above knee amputation Seizures Hyperlipidemia Right sided weakness Home Medications ?Medication ?Instructions ?Recorded ?Last Taken ?Type aspirin 81 mg tablet,delayed 81 mg PO DAILY heart heal th 05/20/18 06/26/25 History release escitalopram oxalate 10 mg tablet 10 mg PO DAILY [facility] 07/17/24 06/26/25 History multivitamin (Daily Multi-Vitamin 1 tab PO DAILY vitam in 01/17/25 06/26/25 History tablet) divalproex 250 mg tablet,delayed 250 mg PO QAM #30 tab s 04/29/25 06/26/25 Rx release divalproex 500 mg tablet,delayed See Rx Instructions P O .COMPLEX 04/29/25 06/27/25 Rx release Seizure disorder #90 tabs acamprosate 333 mg tablet,delayed 333 mg PO TID Unknown History release buprenorphine HCl 8 mg sublingual 16 mg sublingual QDA Y 06/27/25 06/27/25 History tablet Allergy/AdvReac Type Severity Reaction Status Date / Time metoclopramide HCl (From Allergy shaking Verified 06/27/25 14:36 Reglan) prochlorperazine (From Allergy Hives Verified 06/27/25 14:36 Compazine) promethazine (From Phenergan) Allergy Hives Verified 06/27/25 14:36 Family History Mother Dementia CVA (cerebral vascular accident) Myocardial infarction Father , in his 40s. Heart disease Hypercholesteremia CAD (coronary artery disease) Myocardial infarction Surgical History History of surgery on lower extremity History of carpal tunnel release History of hysterectomy History of cholecystectomy S/P appendectomy H/O wrist surgery Social History household members: none Smoking Status: Never smoker alcohol intake: current alcohol intake frequency: 3 or more drinks per day Alcohol type: hard liquor details: 07/18 rum daily. substance use type: other details: Former, on suboxone. caffeine: No do you feel safe at home: Yes ROS ROS ED ROS Narrative Constitutional: Denies a headache, lightness but is confused with chills Eyes: Denies double vision Cardiovascular: Denies chest pain Respiratory: Denies shortness of breath Abdomen: Complains of nausea vomiting as noted above as well as diarrhea denies abdominal pain : Denies urinary symptoms Neurological: Denies any numbness, wheeze, tingling Musculoskeletal: Denies back pain Skin: Denies any rashes or lesions EXAM Physical Exam Narrative Exam Narrative: General: Patient was lying in bed did appear to be uncomfortable secondary to her shaking Head: Atraumatic, normocephalic Eyes: PERRL bilaterally, EOMI bilaterally, no conjunctival injection noted Neck: Soft, supple, trachea midline Cardiovascular: Patient tachycardic with a regular rhythm Respiratory: Clear to auscultation bilaterally Abdomen: Soft, nondistended, no tenderness to palpation Extremities: +5/5 strength noted in the bilateral lower extremities Neurological: Patient following commands that she was at [facility] he is 2024 NIH of 0 GCS 15 Skin: Warm, dry, intact no rashes or lesions noted Const Vital Signs: 06/27/25 14:31 06/27/25 14:38 06/27/25 16:31 Temperature 99.8 F H Temperature Source Oral Pulse Rate 80 108 H 74 Respiratory Rate 15 14 19 H Blood Pressure 150/92 H 150/92 H 114/61 Blood Pressure Mean 111 111 78 Blood Pressure Source Monitor Blood Pressure Position Semi-Fowlers Blood Pressure Location Right Forearm Pulse Ox 96 96 92 Oxygen Delivery Method Room Air Room Air Room Air 06/27/25 17:24 Temperature 98.8 F Temperature Source Pulse Rate 93 Respiratory Rate 13 Blood Pressure 149/129 H Blood Pressure Mean 135 Blood Pressure Source Blood Pressure Position Blood Pressure Location Pulse Ox 94 Oxygen Delivery Method MDM MDM MDM Narrative Medical decision making narrative: Patient is a 60-year-old female who presents to the emergency department with a chief complaint of nausea vomiting and alcohol withdrawal and wanting detox. On the differential diagnose includes but limited to breakthrough seizure secondary to her vomiting of her antiepileptic, seizure secondary to her alcohol withdrawal, electrolyte abnormality. Once workup is obtained reviewed she will be reevaluated. Patient be given IV fluids, Zofran, milligram of Ativan, milligram of folic acid, 500 mg of thiamine as well as 150 mg of phenobarbital. Patient CBC reviewed and showed a white count that is normal at 5.2, he was 13.1, plate count was 172. Patient sodium was 130, potassium normal 3.9, creatinine 0.57. Patient's AST and ALT were 66 and 75 respectively total bilirubin normal at 0.70. Patient's lipase normal at 21 urinalysis reviewed showed no evidence of infection valproic acid was 8120 and alcohol level was 74.9. Patient's EKG reviewed showed sinus rhythm with a rate of 77 bpm. On reevaluation the patient she is still having significant shaking she will be given a another 150 mg of phenobarbital as well as a milligram of Ativan. Patient's case will discuss with hospitalist for admission. At 6:21 PM discussed case with hospitalist Dr. Morales who accept patient for admission to the medical surgical floor. Lab Data Labs: Laboratory Results - last 24 hr 06/27/25 06/27/25 15:00 16:00 WBC 5.2 RBC 3.94 L Hgb 13.1 Hct 38.1 MCV 96.7 MCH 33.2 H MCHC 34.4 RDW Std Deviation 46.9 H RDW Coeff of Adilia 13.1 Plt Count 172 MPV 9.4 Immature Gran % (Auto) 0.600 Neut % (Auto) 61.1 Lymph % (Auto) 26.0 [place] % (Auto) 9.8 Eos % (Auto) 1.3 Baso % (Auto) 1.2 H Absolute Neuts (auto) 3.2 Absolute Lymphs (auto) 1.35 Nucleated RBC % 0 Sodium 138 Potassium 3.9 Chloride 100 Carbon Dioxide 28.1 Anion Gap 11 BUN 6 Creatinine 0.57 L Estim Creat Clear Calc 108.95 Est GFR (MDRD) Non-Af 104 BUN/Creatinine Ratio 11.2 Glucose 112 H Calcium 9.0 Total Bilirubin 0.70 Direct Bilirubin 0.34 H AST 66 H ALT 55 H Alkaline Phosphatase 105 H Total Protein 6.9 Albumin 4.2 Globulin 2.7 Lipase 21 Urine Color Straw Urine Clarity Clear Urine pH 8.0 Ur Specific [place] 1.010 Urine Protein Negative Urine Glucose (UA) Normal Urine Ketones Negative Urine Occult Blood 25 H Urine Nitrite Negative Urine Bilirubin Negative Urine Urobilinogen Normal Ur Leukocyte Esterase Negative Urine RBC 0-5 SEEN Urine WBC 0-5 SEEN Ur Squamous Epith Cells 0-5 SEEN Urine Bacteria 0 SEEN Urine Mucus 0 SEEN Valproic Acid 120 H Ethyl Alcohol 74.9 H Discharge Plan Dx/Rx/DC Orders Clinical Impression: Alcohol withdrawal, History of seizure, History of anxiety, History of depression [facility]position [facility]
[2025-06-27 15:25] LABS: Hematocrit 38.1 % (37-47); Hemoglobin 13.1 g/dL (12.0-15.0); Immature Granulocytes Count 0.030 X10^3/uL (0.0-0.0); Mean Corp Hgb Conc 34.4 g/dL (32-36); Mean Corpuscular Volume 96.7 fL (81-99); Mean Platelet Vol. 9.4 fl (6.2-12.0); NRBC Flagged by Analyzer 0 % (0-5); Platelet Count 172 K/mm3 (150-450); RBC Distribution Width CV 13.1 % (11.6-14.6); RBC Distribution Width SD 46.9 fl (35.1-43.9); Red Blood Count 3.94 M/mm3 (4.2-5.4); White Blood Count 5.2 K/mm3 (4.4-11.0)
[2025-06-27] MEDS: 0.9% Normal Saline (1000mL) 1,000 ML 999 ML IV ×2 (15:25→18:33)
[2025-06-27 15:42] LABS: Alcohol, Blood (Medical)-Serum 74.9 mg/dL (<=10.0)
[2025-06-27 15:47] LABS: AST(SGOT) 66 U/L (<=31); Alanine Aminotransfer ALT/SGPT 55 U/L (<=34); Albumin, Serum 4.2 g/dL (3.4-4.8); Alkaline Phosphatase 105 U/L (35-104); Anion Gap 11 (5-15); BUN 6 mg/dL (4-19); BUN/Creat Ratio 11.2 RATIO (10-20); Bilirubin, Direct 0.34 mg/dL (0.00-0.30); Calcium,Total 9.0 mg/dL (7.6-11.0); Carbon Dioxide 28.1 mmol/L (21.0-32.0); Chloride 100 mmol/L (98-108); Estimated Creatinine Clearance 108.95 ml/min (50-250); Globulin 2.7 g/dL (2.2-4.2); Glucose 112 mg/dL (70-99); Lipase 21 U/L (13-75); Potassium 3.9 mmol/L (3.3-5.1)
[2025-06-27] MEDS: Thiamine Hydrochloride 500 MG in 0.9% Normal Saline (100mL Bag) 100 ML 200 MG IV (15:49)
[2025-06-27 16:16] LABS: Mucous, Urine 0 SEEN /hpf (<or=2+)
[2025-06-27 16:27] LABS: Color, Urine Straw (Yellow); Glucose, Dipstick Normal (Normal); Ketone-Dipstick Negative (Negative); Leukocyte Esterase-Dipstick Negative /ul (Negative); Nitrite-Dipstick Negative (Negative); Occult Blood-Urine 25 /ul (Negative); Protein-Dipstick Negative (Negative); Specific Gravity, Urine 1.010 (1.002-1.030); Urine Bilirubin Dipstick Negative (Negative)
[2025-06-27 16:31] VITALS: BP 114/61; PULSE 74; RESP 19; O2SAT 92
[2025-06-27 17:03] LABS: Red Blood Cells-Urine 0-5 SEEN /hpf (0-5); Squamous Epithelial Cells - UA 0-5 SEEN /hpf (5-10)
[2025-06-27 17:24] VITALS: BP 149/129; PULSE 93; RESP 13; TEMP 37.1; O2SAT 94
[2025-06-27 17:28] LABS: Valproic Acid (Depakene) Level 120 ug/mL (50-100)
[2025-06-27 18:00] VITALS: BP 133/70; PULSE 69; RESP 18; O2SAT 94
--- NOTE | 2025-06-27 18:18 | HP.PCM.HOS_ITS ---
HPI - General General Date of Admission: 06/27/25 Date of Service: 06/27/25 Chief Complaint: Alcohol withdrawal seizure, desire for alcohol detox HPI Narrative PARDEEP MARK, is a 60 F who presented to [facility] ED on 06/27/2025 with a reported seizure concerning for an alcohol withdrawal seizure and desire for alcohol detox. Patient has been hospitalized here many times for alcohol detox. She last went through detox here in January. She does have a reported history of alcohol withdrawal seizures in the past. Patient reports drinking a bottle of rum every day today and a half recently. Her last drink was this morning but she has had some nausea with vomiting and has had poor p.o. intake recently as well. She reports having 2 seizures this morning; neither were witnessed. On arrival to the ED she was mildly hypertensive to the 150s over 90s and mildly tachycardic to the 100s to low 110s, was otherwise afebrile and stable on room air at rest. CBC and BMP were benign. LFTs were mildly elevated, similar to previous. Alcohol level 74. She is on Depakote for history of seizures and Depakote level was slightly supratherapeutic. She was given doses of phenobarbital and Ativan in the ED with improvement in vital signs and in subjective withdrawal symptoms. Hospitalist was then contacted for admission. I saw the patient at bedside in the ED. Patient was mildly somnolent appearing but otherwise sitting back in bed fairly comfortably and answering questions with short appropriate responses. She noted improvement in her withdrawal symptoms with the medications given. She denies any other acute concerns currently. Will be admitted for further management. [facility] Medical History (Updated 06/27/25 @ 18:[address] Kameron Gunderson, DO) Stroke/cerebrovascular accident Seizure Alcohol withdrawal Anxiety and depression Alcohol abuse Amputation of leg Acute stroke due to occlusion of left middle cerebral artery Seizures Substance abuse Opioid use disorder History of drug overdose Unilateral above knee amputation Seizures Hyperlipidemia Right sided weakness Home Medications ?Medication ?Instructions ?Recorded ?Last Taken ?Type aspirin 81 mg tablet,delayed 81 mg PO DAILY heart heal th 05/20/18 06/26/25 History release escitalopram oxalate 10 mg tablet 10 mg PO DAILY [facility] 07/17/24 06/26/25 History multivitamin (Daily Multi-Vitamin 1 tab PO DAILY vitam in 01/17/25 06/26/25 History tablet) divalproex 250 mg tablet,delayed 250 mg PO QAM #30 tab s 04/29/25 06/26/25 Rx release divalproex 500 mg tablet,delayed See Rx Instructions P O .COMPLEX 04/29/25 06/27/25 Rx release Seizure disorder #90 tabs acamprosate 333 mg tablet,delayed 333 mg PO TID Unknown History release buprenorphine HCl 8 mg sublingual 16 mg sublingual QDA Y 06/27/25 06/27/25 History tablet Allergy/AdvReac Type Severity Reaction Status Date / Time metoclopramide HCl (From Allergy shaking Verified 06/27/25 14:36 Reglan) prochlorperazine (From Allergy Hives Verified 06/27/25 14:36 Compazine) promethazine (From Phenergan) Allergy Hives Verified 06/27/25 14:36 Family History Mother Dementia CVA (cerebral vascular accident) Myocardial infarction Father , in his 40s. Heart disease Hypercholesteremia CAD (coronary artery disease) Myocardial infarction Surgical History History of surgery on lower extremity History of carpal tunnel release History of hysterectomy History of cholecystectomy S/P appendectomy H/O wrist surgery Social History household members: none Smoking Status: Never smoker alcohol intake: current alcohol intake frequency: 3 or more drinks per day Alcohol type: hard liquor details: 07/18 rum daily. substance use type: other details: Former, on suboxone. caffeine: No do you feel safe at home: Yes ROS Constitutional Constitutional: Reports fatigue; Denies chills, fever(s) or weakness Cardiovascular Cardiovascular: Denies chest pain Respiratory/Chest Respiratory/Chest: Denies shortness of breath at rest Gastrointestinal Gastrointestinal: Denies abdominal pain Musculoskeletal Musculoskeletal: Denies arthralgias or myalgias Neurologic Neurologic: Reports seizures; Denies dizziness, focal weakness, headache(s), numbness or tingling Vital Signs Vital Signs Vital Signs: 06/27/25 14:31 06/27/25 14:38 06/27/25 16:31 Temperature 99.8 F H Temperature Source Oral Pulse Rate 80 108 H 74 Respiratory Rate 15 14 19 H Blood Pressure 150/92 H 150/92 H 114/61 Blood Pressure Mean 111 111 78 Blood Pressure Source Monitor Blood Pressure Position Semi-Fowlers Blood Pressure Location Right Forearm Pulse Ox 96 96 92 Oxygen Delivery Method Room Air Room Air Room Air 06/27/25 17:24 Temperature 98.8 F Temperature Source Pulse Rate 93 Respiratory Rate 13 Blood Pressure 149/129 H Blood Pressure Mean 135 Blood Pressure Source Blood Pressure Position Blood Pressure Location Pulse Ox 94 Oxygen Delivery Method Weight Weight: 87.861 kg Body Mass Index (BMI) 34.3 Physical Exam Const alert and no apparent distress Constitutional Narrative: Upper middle-aged female, class I obesity, alert but somewhat somnolent appearing, otherwise sitting back comfortably in bed, answering questions with short appropriate responses, in no acute distress. General Appearance: cooperative and comfortable HEENT normocephalic, head/scalp atraumatic, hearing grossly normal bilaterally, nasal mucous membranes and turbinates normal and moist oral mucous membranes Eyes PERRL, EOMs intact bilaterally and conjunctivae normal Neck full ROM Chest inspection of chest normal Resp normal respiratory effort, normal air movement, no use of accessory muscles and clear to auscultation bilaterally Cardio regular rate, regular rhythm, no murmurs and peripheral pulses 2+ throughout GI normal to inspection, nondistended, normoactive bowel sounds, soft to palpation, non-tender and non-distended Back/Spine normal ROM Extremity normal to inspection, full ROM and no pedal edema Skin no rashes or lesions noted Neuro moves all extremities and no focal motor deficits Speech: speech normal Results Lab / Micro Data 06/27/25 15:00 06/27/25 15:00 Labs: Laboratory Results - last 24 hr 06/27/25 15:00: WBC 5.2, RBC 3.94 L, Hgb 13.1, Hct 38.1, MCV 96.7, MCH 33.2 H, MCHC 34.4, RDW Std Deviation 46.9 H, RDW Coeff of Adilia 13.1, Plt Count 172, MPV 9.4, Immature Gran % (Auto) 0.600, Neut % (Auto) 61.1, Lymph % (Auto) 26.0, [place] % (Auto) 9.8, Eos % (Auto) 1.3, Baso % (Auto) 1.2 H, Absolute Neuts (auto) 3.2, Absolute Lymphs (auto) 1.35, Nucleated RBC % 0, Sodium 138, Potassium 3.9, Chloride 100, Carbon Dioxide 28.1, Anion Gap 11, BUN 6, Creatinine 0.57 L, Estim Creat Clear Calc 108.95, Est GFR (MDRD) Non-Af 104, BUN/Creatinine Ratio 11.2, G lucose 112 H, Calcium 9.0, Total Bilirubin 0.70, Direct Bilirubin 0.34 H, AST 66 H, ALT 55 H, Alkaline Phosphatase 105 H, Total Protein 6.9, Albumin 4.2, Globulin 2.7, Lipase 21, Ethyl Alcohol 74.9 H 06/27/25 16:00: Urine Color Straw, Urine Clarity Clear, Urine pH 8.0, Ur Specific [place] 1.010, Urine Protein Negative, Urine Glucose (UA) Normal, Urine Ketones Negative, Urine Occult Blood 25 H, Urine Nitrite Negative, Urine Bilirubin Negative, Urine Urobilinogen Normal, Ur Leukocyte Esterase Negative, Urine RBC 0-5 SEEN, Urine WBC 0-5 SEEN, Ur Squamous Epith Cells 0-5 SEEN, Urine Bacteria 0 SEEN, Urine Mucus 0 SEEN, Valproic Acid 120 H Assessment & Plan Assessment/Plan (1) Alcohol abuse: (2) Alcohol withdrawal: PLAN: Plan Patient is a 60-year-old female who presented to [facility] ED on 06/27/2025 with a suspected alcohol withdrawal seizure and desire for alcohol detox. 1. Alcohol abuse with reported alcohol withdrawal seizure, desire for alcohol detox ? Admit under inpatient status to [facility]. Case management consulted. Patient had reported seizure at home on morning of admission that was unwitnessed; has history of alcohol withdrawal seizures as well as complex partial seizures as below. Alcohol level 74 in the ED and patient appeared to be in active withdrawal with hypertension and tachycardia that improved with phenobarbital and Ativan. No seizure activity in the ED. Highest suspicion is for a possible alcohol withdrawal seizure at home, so patient is okay to be managed on the [facility] floor on a phenobarbital taper. Will treat with phenobarb taper and other as needed medications per alcohol withdrawal order set. Appreciate case management recommendations. 2. Mild elevated LFTs ? Presume secondary to alcohol abuse as above. No need to trend further while inpatient. Chronic medical conditions: ? Class I obesity: BMI 34.6 on admit. Complicates hospital course and care. ? History of complex partial seizures: Valproic acid level slightly supratherapeutic on admit. Continue home divalproex. ? Previous history of opiate dependence: Has been in remission now for several years. Continue home buprenorphine. ? 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 Stable. ? Depression/anxiety: Continue home escitalopram. ? Hyperlipidemia: Continue home baby aspirin. Was previously on home statin medication but it appears this was discontinued for an unclear reason; will hold off on restarting at this time. DVT prophylaxis: Lovenox CODE STATUS: Full code, verified Expected disposition: Home, TBD Total clinical time spent by myself addressing the patient's medical issues, reviewing all the data, and collaborating with patient's care team: 59 minutes. Charges/Coding Visit Charges Inpatient E&M: 11851 Init Hosp L2
--- NOTE | 2025-06-27 18:38 | CM.ED ---
Social Work SW met with patient who stated she was interested in the [facility] program for alcohol detox. Patient states she had been doing well for about 7 months, but states she feels that holidays have been a trigger. Patient states that she knows she needs to quit drinking and knows she needs help to accomplish that goal. Patient reports motivation to complete program. Treatment navigator notified of admission. Rebecca Canas, [employer]ER, [employer]
[2025-06-27 18:56] LABS: Barbiturate Urine PRESUMPTIVE POSITIVE (< 200 ng/mL); Benzodiazepine Urine NEGATIVE (< 200 ng/mL); PCP Urine NEGATIVE (< 25 ng/mL); THC Urine NEGATIVE (< 50 ng/mL)
[2025-06-27 19:49] VITALS: BMI 34.5
[2025-06-27 19:57] VITALS: BP 147/71; PULSE 101; RESP 16; TEMP 37; O2SAT 96
--- OUTSIDE RECORDS SUMMARY | 2025-06-27 20:39 | XMS RPT_ITS | CCD ---
Author Organization [facility] PATIENT FINANCIAL REP [facility] Care Team Providers Care Color Technician Name Role Phone Unavailable Unavailable Unavailable TAMMY KARIMI Primary Care Unavailabl e WINSTON AGUILAR Admitting Unavailable OVI ANDERSON Attending Unavailable ABRAM POSADAS Consulting Unavailab TAMMY Andrade Primary Care Unavailabl VENKATESH Xiao Attending Unavailable TAMMY KARIMI Primary Care Unavailabl e ALONA BA Attending Unavailabl e TAMMY KARIMI Primary Care Unavailabl e ITRAT AHMED Consulting Unavailable POLO SILVESTRE Admitting Unavailable JORDY BUCHANAN Attending Unavailable ZAIDA AQUINO Primary Care Unavailable RONDA SIMMONS Admitting Unavailable RONDA SIMMONS Attending Unavailable VAN BARTH Consulting Unavailable ZAIDA CALLOWAY Attending Unavailable ATMMY KARIMI Primary Care Unavailabl e MARCELO SCHNEIDER Consulting Unavaila MOOK Burnette II Admitting Unavailable TAMMY KARIMI Primary Care Unavailabl e CHETAN FITZGERALD Consulting Unavailable YOLA BOYD Attending Unavail able CECELIA BARAKAT Admitting Unavailable RANI ACOSTA Attending Unavail able JAYE, PHYSICIAN Primary Care Unavailable VADIM MARK Primary Care Unavailable RONDA BARRAGAN Admitting Unava ilGILLIAN Hernandez Attending Unavailable BRIAN MONCADA Consulting Unavailable YANDEL FONTANA Attending Unavail able VADIM MARK Primary Care Unavailable Tammy Karimi MD Primary Care Provider MAGGI RUTLEDGE Referring Unavailable CONSULT, ADDICTION MEDICINE Consulting Unav ailable TAMMY KARIMI Primary Care Unavailabl TODD Kaiser Attending Unavailable TODD MUHAMMAD Admitting Unavailable ANN JONES Attending Unavailable [facility] CAROL Rosenbuam Attending Unavailable [facility] Primary Care UnavailJORDY Razo Attending Unavailwei KARIMI MD, DR MUNOZ Primary Care Physician Alicia Laws Unavailable Unavailable TREV ESPINOSA, DR MUNOZ Primary Care SARWAT Blake MD Attending Unavailwei KARIMI MD, DR MUNOZ Primary Care Danielle ONEIL MD, JOSIE Admitting Unavailable WERO HERNANDEZ DO Attending Unavailable PEDRO ESPINOSA, DR ROGER Myers Consulting Unavailwei KARIMI MD, DR MUNOZ Consulting Danielle hughes Physician, No Pcp Primary Care Provider Unavaila NIDA Schuster Attending Unavailable PHYSICIAN, NO PCP Primary Care Unavailable Sea Zamarripa Attending Unavailable [facility] Referring Unavailable [facility] Primary Care Unavailable Jt Morales Admitting Unavailable Jt Morales Attending Unavailable [facility] Primary Care Unavailable Jt Morales Consulting Unavailable White, Mona L Admitting Unavailable WhiteMona L Attending Unavailable [facility] Primary Care Unavailable Teresa Mona L Consulting Unavailable [facility] Primary Care Unavailable Yola Garza Admitting Unavailable Yola Gazra Attending Unavailable [facility]ending [facility] Referring Unavailable [facility] Primary Care Unavailable Yola Garza Admitting Unavailable Yola Garza Attending Unavailable [facility] Primary Care Unavailable Yola Garza Consulting Unavailable Sea Zamarripa Attending Unavailable Sea Zamarripa Referring Unavailable [facility] Primary Care Unavailable Genie Dhillon Consulting Unavailable Levi Platt Attending Unavailable Lc, Levi Referring Unavailable [facility] Primary Care Unavailable [facility] Primary Care Unavailable Vadim Mathias Attending Unavailable Gerard Irizarry Attending Unavailable [facility] Primary Care Unavailable [facility] Primary Care Unavailable LcJellyon Attending Unavailable Lc Levi Referring Unavailable [facility] Primary Care Unavailable White, Mona L Admitting Unavailable White Mona L Attending Unavailable Colton Bobby Consulting Unavailable Adeli, Amir Consulting Unavailable Hinduja, Caitlin Consulting Unavailable Destin, Michela Consulting Unavailable Zha, Celeste Consulting Unavailable Manfred, Robi Consulting Unavailable AngieDinah lópez Consulting Unavailable BitAlexsander bowman Consulting Unavailable Maddison Tamayo Consulting Unavailable Josiah Velez Consulting Unavailable Mavis Ross Consulting Unavailable Nic Preston Consulting Unavailable Charo Levi Consulting Unavailable Gerhard Campos Consulting Unavailable Damon Kern Consulting UnavailTito Dumont Consulting Unavailable Osmany Gloria Consulting Unavailable Radu Aguilar Consulting Unavailable Todd Muhammad Consulting Unavailable Margo Colmenares Consulting Unavailable [facility] Primary Care Unavailable Jt Morales Admitting Unavailable Alfredo Sanchez Attending Unavailable Jt Morales Consulting Unavailable Yola Garza Attending Unavailable [facility] Primary Care Unavailable Alfredo Sanchez Attending Unavailable Alfredo Sanchez Consulting Unavailable Sea Zamarripa Attending Unavailable Tammy Karimi Referring [facility] Unavailable Allergies Allergy Classification Reported Allergen(s) Allergy Type Date of Onset Reaction(s) Facility (7 sources) Metoclopramide; Translations: [METOCLOPRAMIDE HCL] Drug Allergy 08-12-19 06 Itching, Rash [facility] Repository (2 sources) Phenothiazine; Translations: [PHENOTHIAZINES] Propensity to adverse reactions to drug (disorder) 03-31-20 03 [facility] Repository (8 sources) Prochlorperazine; Translations: [PROCHLORPERAZINE] Drug Allergy 08-02-19 06 Hives [facility] Repository (13 sources) Promethazine; Translations: [PROMETHAZINE] Drug Allergy 08-02-19 06 Hives, Itching, Tremor (finding), Rash [facility] Repository (1 source) OTHER; Translations: [OTHER] Propensity to adverse reactions (disorder) 03-31-20 03 [facility] Repository (2 sources) Penicillins; Translations: [PENICILLINS] Propensity to adverse reactions to drug (disorder) 10-21-19 23 [facility] Repository (2 sources) Sulfonamides (Antibiotic); Translations: [SULFA (SULFONAMIDE ANTIBIOTICS)] Propensity to adverse reactions to drug (disorder) 10-21-19 [facility] Repository (3 sources) Metoclopramide; Translations: [METOCLOPRAMIDE] Drug Allergy 08-21-19 10 aysha [facility] Repository (1 source) PROCHLORPERAZINE EDISYLATE; Translations: [PROCHLORPERAZINE EDISYLATE] Propensity to adverse reactions to drug (disorder) 08-21-19 [facility] Repository Medications Current Medications Medication Drug Class(es) [...] qDay, # 30 tab(s), 0 Refill(s), [facility]acy: [facility] #[id number], 160, cm, 12/02/23 22:13:00 EDT, Height, kg, [...] qDay, # 30 tab(s), 0 Refill(s), Pharmacy: [facility] #[id number], 160, cm, 12/02/23 22:13:00 EDT, Height, kg, [...] BID, # 20 tab(s), 0 Refill(s), Pharmacy: [facility] #[id number], Opiate addiction, 160, cm, 12/02/23 22:13:00 EDT, [...] Refill(s), 12/19/23 2:40:00 PM EDT, Pharmacy: [facility] #[id number], 160, cm, 12/02/23 22:13:00 EDT, Height, kg, [...] route As directed PRN for Opioid Reversal. [place] into the nose as directed. Call 911. [...] day(s), # 6 tab(s), 0 Refill(s), Pharmacy: [facility] #[id number], 160, cm, 12/02/23 22:13:00 EDT, Height, 76.5, [...] BID, # 180 tab(s), 0 Refill(s), Pharmacy: [facility] #[id number], 160, cm, 12/02/23 22:13:00 EDT, Height, kg, [...] oral tablet (3 sources) Start: 05-10-2023 End: 05-10-2023 Melatonin tablet 6 mg Start: 05-10-2023 End: [...] Cerebrovascular accident; Translations: [Cerebral infarction, unspecified] Onset: 3 05-08-2023 Chronic Alcohol-related disorders (2 sources) Alcohol abuse, uncomplicated; Translations: [Alcohol dependence with withdrawal, uncomplicated] Onset: 5 Chronic Cardiac dysrhythmias (2 sources) Tachycardia, unspecified; Translations: [Tachycardia, unspecified] Onset: 3 Episodic Complications of surgical procedures or medical care (3 sources) Infection following a procedure, other surgical site, initial encounter; Translations: [Disruption of external operation (surgical) wound, not elsewhere classified, initial encounter] Onset: 3 Episodic Diabetes mellitus without complication (2 sources) Hyperglycemia, unspecified; Translations: [Hyperglycemia, unspecified] Onset: 3 Episodic Epilepsy; convulsions (1 source) Epilepsy, unspecified, not intractable, without status epilepticus; Translations: [Epilepsy, unspecified, not intractable, without status epilepticus] Onset: 5 Chronic Malaise and fatigue (3 sources) Right hemiparesis; Translations: [Weakness] Onset: 3 05-13-2023 Episodic Miscellaneous mental health disorders (2 sources) Conversion disorder with seizures or convulsions; Translations: [Conversion disorder with seizures or convulsions] Onset: 3 Chronic Mood disorders (1 source) Mood disorders; Translations: [Depression, unspecified] Onset: 5 Open wounds of extremities (1 source) 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, level unspecified, initial encounter; Translations: [Amputation of leg (HCC)] Onset: 3 Chronic Other bone disease and musculoskeletal deformities (2 sources) Acquired absence of left hip joint; Translations: [Acquired absence of left hip joint] Onset: 4 Chronic Other connective tissue disease (1 source) Pain in right arm; Translations: [Right arm pain] Onset: 3 Episodic Other injuries and conditions due to external causes (2 sources) Other injury of unspecified body region, initial encounter; Translations: [Pain associated with wound] Onset: 3 Episodic Other injuries and conditions due to external causes (1 source) Encounter for examination and observation following other accident; Translations: [Encounter for examination and observation following other accident] Onset: 5 Episodic Other lower respiratory disease (2 sources) Hypoxemia; Translations: [Hypoxemia] Onset: 3 Episodic Other nervous system disorders (1 source) Chronic pain due to trauma; Translations: [Chronic pain due to trauma] Onset: 3 Chronic Other nervous system disorders (1 source) Phantom limb syndrome without pain; Translations: [Phantom limb syndrome without pain] Onset: 5 Chronic Other screening for suspected conditions (not mental disorders or infectious disease) (2 sources) Abnormal electrocardiogram [ECG] [EKG]; Translations: [Encounter for other screening for malignant neoplasm of breast] Onset: 3 Episodic Residual codes; unclassified (2 sources) Pain, unspecified; Translations: [Pain associated with wound] Onset: 3 Episodic Residual codes; unclassified (1 source) Other specified postprocedural states; Translations: [Post-operative state] Onset: 3 Episodic Residual codes; unclassified (5 sources) Transient alteration of awareness; Translations: [Transient alteration of awareness] Onset: 3 05-13-2023 Episodic Skin and subcutaneous tissue infections (4 sources) Cellulitis of other sites; Translations: [Local infection of the skin and subcutaneous tissue, unspecified] Onset: 3 Episodic Substance-related disorders (4 sources) Opioid dependence, uncomplicated; Translations: [Opioid dependence, in remission] Onset: 3 Chronic Unclassified (1 source) Acidosis, unspecified; Translations: [Acidosis, unspecified] Onset: 3 Unclassified (2 sources) New Patient; Translations: [New Patient] Onset: 4 Unclassified (2 sources) 10/27/06 OR REVISIION AMPUTATION LEFT LEG DR MONTES DE OCA Onset: 7 10-27-2006 Unclassified (2 sources) 05/07 Debridement Left leg stump Onset: 6 05-07-2006 Unclassified (2 sources) 07/09/06 OR REVISION LEFT ABOVE KNEE AMPUTATION DR MONTES DE OCA Onset: 6 07-09-2006 Unclassified (2 sources) 02/05/06 OR LEFT ABOVE THE KNEE AMPUTATION Onset: 6 02-06-2006 Unclassified (2 sources) 04/02/06 OR DEBRIDEMENT AND CLOSURE LEFT ABOVE KNEE AMPUTATION DR MONTES DE OCA Onset: 6 04-02-2006 Unclassified (2 sources) AKA Onset: 6 2006 Unclassified (2 sources) arthotomy and irrigation Lt knee 01/22 Onset: 6 01-22-2006 Unclassified (2 sources) infection left above the knee amputation Onset: 7 09-09-2006 Unclassified (2 sources) left knee surgery inf Onset: 6 01-20-2006 Unclassified (2 sources) Alcohol use, unspecified with withdrawal, unspecified; Translations: [Alcohol use, unspecified with withdrawal, unspecified] Onset: 5 Unclassified (1 source) Alcohol abuse with withdrawal, unspecified; Translations: [Alcohol abuse with withdrawal, unspecified] Onset: 5 Unclassified (1 source) Alcohol use, unspecified with withdrawal, uncomplicated; Translations: [Alcohol use, unspecified with withdrawal, uncomplicated] Onset: 5 Past or Other Problems Problem Classification Problem [...] right upper extremity] Onset: 07-16-2022 Episodic Other connective tissue disease (1 source) Facial weakness; Translations: [Facial weakness] Onset: 01-28-2025 Episodic Other injuries and conditions due to [...] unspecified; Translations: [Tremor, unspecified] Onset: 07-28-2024 Episodic Poisoning by other medications and drugs (1 source) Poisoning by iminostilbenes, undetermined, subsequent encounter; Translations: [Poisoning by iminostilbenes, undetermined, subsequent encounter] Onset: 07-28-2024 Episodic Residual codes; unclassified (3 sources) Other specified personal risk factors, not elsewhere classified; Translations: [Other specified personal risk factors, not elsewhere classified] Onset: 10-26-2022 Episodic Residual codes; unclassified (1 source) Edema, unspecified; Translations: [Edema, unspecified] Onset: 02-03-2025 Episodic Septicemia (except in labor) (1 source) Sepsis, unspecified organism; Translations: [Sepsis without acute organ dysfunction, due to unspecified organism (HCC)] Onset: 07-24-2022 Episodic Unclassified (1 source) Acidosis, unspecified; Translations: [Acidosis, unspecified] Onset: 10-20-2022 Unclassified (1 source) Onset: 05-13-2023 05-13-2023 Results Test Name Value Interpretation Reference Range Facility SCRN MAMM (CAD)W/ALYCIA BILATo n 05-13-2025 SCRN MAMM (CAD)W/ALYCIA BILAT Normal [facility] Hepatitis B Core AB IgMon HEP B CORE,IgM Negative Normal Negative [facility] Comment on above: Order Comment: Order Date: 04/11/25Order Info: [id number] - GGTP Result Comment: Perf ormed at: [facility] [place] [id number] Director: Jason Herrera PhD, Phone: [phone] Performed By: #### L 506.1001, L509.8002, L100.0100, L3890.6006, L3400.8000, L3890.6102, L3100.0440, L3890.6202, L3890.6301 ####[facility] [address] [place], [address] L501.5101on 04-29-2025 GGTP 84 IU/L Abnormal 0-60 [facility] Comment on above: Order Comment: Order Date: 04/11/25Order Info: [id number] - GGTP Performed By: #### L 503.6550, L100.0500, L501.5101 ####[facility] [address] [place], [address] Quantiferon TB-Gold+on 04-29 QFT MITOGEN DARWIN > 10.00 Normal . [facility] Comment on above: Order Comment: Order Date: 04/11/25Order Info: 2324-2 - GGTP Performed By: #### L 506.1001, L509.8002, L100.0100, L3890.6006, L3400.8000, L3890.6102, L3100.0440, L3890.6202, L3890.6301 ####[facility] [address] [place], [place], [phone] QFT NIL VALUE 0.09 IU/mL Normal . [facility] Comment on above: Order Comment: Order Date: 04/11/25Order Info: 2324-2 - GGTP Performed By: #### L 506.1001, L509.8002, L100.0100, L3890.6006, L3400.8000, L3890.6102, L3100.0440, L3890.6202, L3890.6301 ####[facility] [address] [place], [place], [phone]) QFT TB GOLD+ Comment Normal . [facility] Comment on above: Order Comment: Order Date: 04/11/25Order Info: 2324-2 - GGTP Result Comment: Saul tiFERON-TB Gold Plus is a qualitative indirect test forM tuberculosis infection (including disease) and isintended for use in conjunction with risk assessment,radiography, and other medical and diagnostic evaluations.The QuantiFERON-TB Gold Plus result is determined bysubtracting the Nil value from either TB antigen (Ag)value. The Mitogen tube serves as a control for the test. Performed By: #### L 506.1001, L509.8002, L100.0100, L3890.6006, L3400.8000, L3890.6102, L3100.0440, L3890.6202, L3890.6301 ####[facility] [address] [place], [place], [phone] QFT TB POS CRIT Negative Normal Negative [facility] Comment on above: Order Comment: Order Date: 04/11/25Order Info: 2324-2 - GGTP Result Comment: No r esponse to M tuberculosis antigens detected.Infection with M tuberculosis is unlikely, but high riskindividuals should be considered for additional testing(ATS/IDSA/CDC Clinical Practice Guidelines, 2017). Thereference range is an Antigen minus Nil result of <0.35IU/mL.The specimen received for QuantiFERON testing was incubatedby the ordering institution. Specific procedures outlinedin our Directory of Services and in the package insert forthe QuantiFERON Gold (In Tube) test must be followed toenable for proper stimulation of cells for the productionof interferon gamma. Chemiluminescence immunoassaymethodology Performed By: #### L 506.1001, L509.8002, L100.0100, L3890.6006, L3400.8000, L3890.6102, L3100.0440, L3890.6202, L3890.6301 ####[facility] [address] [place], [place], [phone] QFT TB1+ AG DARWIN 0.07 IU/mL Normal . [facility] Comment on above: Order Comment: Order Date: 04/11/25Order Info: 2324-2 - GGTP Performed By: #### L 506.1001, L509.8002, L100.0100, L3890.6006, L3400.8000, L3890.6102, L3100.0440, L3890.6202, L3890.6301 ####[facility] [address] [place], [place], [phone] QFT TB2+ AG DARWIN 0.12 IU/mL Normal . [facility] Comment on above: Order Comment: Order Date: 04/11/25Order Info: 2324-2 - GGTP Performed By: #### L 506.1001, L509.8002, L100.0100, L3890.6006, L3400.8000, L3890.6102, L3100.0440, L3890.6202, L3890.6301 ####[facility] [address] [place], [place], [phone] HIVon 04-28-2025 HIV Non-Reactive Normal Nonreactive [facility] Comment on above: Order Comment: Order Date: 04/11/25Order Info: [id number] - CMPOrder Info: [id number] - LIPIDOrder Info: [id number] - OJ Result Comment: Non- ReactiveReactiveRepeatedly reactive samples must be confirmed according toCDC recommended confirmatory algorithms. The subresults foreither HIVAG or AHIV can be used as an aid in the selectionof the confirmation algorithm for reactive samples.Send out specimens with Reactive results to [facility] forconfirmation.Order the HIV antibody detection and differentiation:#[id number] Performed By: #### L 506.1001, L509.8002, L100.0100, L3890.6006, L3400.8000, L3890.6102, L3100.0440, L3890.6202, L3890.6301 ####[facility] [address] [facility] [place], [address] Hepatitis C Antibodyon 04-28 Hepatitis C Ab Non-Reactive Normal Nonreactive [facility] Comment on above: Order Comment: Order Date: 04/11/25Order Info: [id number] - CMPOrder Info: [id number] - LIPIDOrder Info: [id number] - OJ Result Comment: Reac tive: Presumptive evidence of antibodies to HCV. [facility].Non-Reactive: Antibodies to HCV were not detected; does notexclude the possibility of exposure to HCVReactive Results are presumptive evidence of antibodies toHCV. Follow CDC recommendations for supplemental testing.Order confirmation testing: HCV Quant by PCR testing -[facility] #[id number] Non Reactive: < 0.8 Equivocal: >/= 0.8 to < 1.0 Reactive: >/= 1.0The CDC requires that a reactive/equivocal HCV antibodyresult be sent out for confirmation. HCV Quant by PCRtesting. Performed By: #### L 506.1001, L509.8002, L100.0100, L3890.6006, L3400.8000, L3890.6102, L3100.0440, L3890.6202, L3890.6301 ####[facility] [address] [facility] [address] [place], [place], [phone] L3890.6102on 04-28-2025 HEP B Surf Ag Non-Reactive Normal Nonreactive [facility] Comment on above: Order Comment: Order Date: 09/29/25Order Info: [id number] - CMPOrder Info: [id number] - LIPIDOrder Info: [id number] - OJ Result Comment: Reac tive: Presumptive evidence of HBV. Repeatedly reactivesamples must be confirmed using a neutralization test([facility] HBsAg Confirmatory Test)Non-Reactive: HBsAg not detected; does not exclude thepossibility of exposure to HBV Performed By: #### L 506.1001, L509.8002, L100.0100, L3890.6006, L3400.8000, L3890.6102, L3100.0440, L3890.6202, L3890.6301 ####[facility] [address] [place], [address] Ammoniaon 04-27-2025 Ammonia (P) [Moles/Vol] 39.2 umol/L Normal 11-51 [facility] Comment on above: Performed By: #### L 503.5510, L501.8100 ####[facility] [address] [place], [address] CBC W/Diff, Automatedon 04-13 Erythrocyte distribution width (RBC) [Ratio] 12.5 % Normal 11.6-14.6 [facility] Comment on above: Order Comment: Order Date: 04/11/25Order Info: [id number] - CBC Performed By: #### L 506.1001, L509.8002, L100.0100, L3890.6006, L3400.8000, L3890.6102, L3100.0440, L3890.6202, L3890.6301 ####[facility] [address] [place], [address] Performed By: #### L 503.6550, L100.0500, L501.5101 ####[facility] [address] [place], [address] Hematocrit (Bld) [Volume fraction] 35.9 % Low 37-47 [facility] Comment on above: Order Comment: Order Date: 04/11/25Order Info: [id number] - CBC Performed By: #### L 506.1001, L509.8002, L100.0100, L3890.6006, L3400.8000, L3890.6102, L3100.0440, L3890.6202, L3890.6301 ####[facility] [address] [place], [address] Performed By: #### L 503.6550, L100.0500, L501.5101 ####[facility] [address] [place], [address] Hemoglobin (Bld) [Mass/Vol] 12.9 g/dL Normal 12.0-15.0 [facility] Comment on above: Order Comment: Order Date: 04/11/25Order Info: [id number] - CBC Performed By: #### L 506.1001, L509.8002, L100.0100, L3890.6006, L3400.8000, L3890.6102, L3100.0440, L3890.6202, L3890.6301 ####[facility] [address] [place], [address] Performed By: #### L 503.6550, L100.0500, L501.5101 ####[facility] [address] [place], [address] MCH (RBC) [Entitic mass] 33.3 pg High 27.0-32.0 [facility] Comment on above: Order Comment: Order Date: 04/11/25Order Info: [id number] - CBC Performed By: #### L 506.1001, L509.8002, L100.0100, L3890.6006, L3400.8000, L3890.6102, L3100.0440, L3890.6202, L3890.6301 ####[facility] [address] [place], [place], [phone] Performed By: #### L 503.6550, L100.0500, L501.5101 ####[facility] [address] [place], [address] MCHC (RBC) [Mass/Vol] 35.9 g/dL Normal 32-36 [facility] Comment on above: Order Comment: Order Date: 04/11/25Order Info: [id number] - CBC Performed By: #### L 506.1001, L509.8002, L100.0100, L3890.6006, L3400.8000, L3890.6102, L3100.0440, L3890.6202, L3890.6301 ####[facility] [address] [place], [address] Performed By: #### L 503.6550, L100.0500, L501.5101 ####[facility] [address] [place], [address] MCV (RBC) [Entitic vol] 92.8 fL Normal 81-99 [facility] Comment on above: Order Comment: Order Date: 04/11/25Order Info: [id number] - CBC Performed By: #### L 506.1001, L509.8002, L100.0100, L3890.6006, L3400.8000, L3890.6102, L3100.0440, L3890.6202, L3890.6301 ####[facility] [address] [place], [address] Performed By: #### L 503.6550, L100.0500, L501.5101 ####[facility] [address] [place], [address] Platelet mean volume (Bld) [Entitic vol] 10.8 fL Normal 6.2-12.0 [facility] [facility] Comment on above: Order Comment: Order Date: 04/11/25Order Info: [id number] - CBC Performed By: #### L 506.1001, L509.8002, L100.0100, L3890.6006, L3400.8000, L3890.6102, L3100.0440, L3890.6202, L3890.6301 ####[facility] [address] [place], [address] Performed By: #### L 503.6550, L100.0500, L501.5101 ####[facility] [address] [place], [address] Platelets (Bld) [#/Vol] 148 10*3/uL Low 150-450 [facility] Comment on above: Order Comment: Order Date: 04/11/25Order Info: [id number] - CBC Performed By: #### L 506.1001, L509.8002, L100.0100, L3890.6006, L3400.8000, L3890.6102, L3100.0440, L3890.6202, L3890.6301 ####[facility] [address] [place], [address] Performed By: #### L 503.6550, L100.0500, L501.5101 ####[facility] [address] [place], [address] RBC (Bld) [#/Vol] 3.87 10*6/uL Low 4.2-5.[address] [facility] Comment on above: Order Comment: Order Date: 04/11/25Order Info: [id number] - CBC Performed By: #### L 506.1001, L509.8002, L100.0100, L3890.6006, L3400.8000, L3890.6102, L3100.0440, L3890.6202, L3890.6301 ####[facility] [address] [place], [address] Performed By: #### L 503.6550, L100.0500, L501.5101 ####[facility] [address] [place], [address] RDW SD 42.4 fl Normal 35.1-43.9 [facility] Comment on above: Order Comment: Order Date: 04/11/25Order Info: [id number] - CBC Performed By: #### L 506.1001, L509.8002, L100.0100, L3890.6006, L3400.8000, L3890.6102, L3100.0440, L3890.6202, L3890.6301 ####[facility] [address] [place], [address] Performed By: #### L 503.6550, L100.0500, L501.5101 ####[facility] [address] [place], [address] WBC (Bld) [#/Vol] 7.8 10*3/uL Normal 4.4-11.0 [facility] Comment on above: Order Comment: Order Date: 04/11/25Order Info: [id number] - CBC Performed By: #### L 506.1001, L509.8002, L100.0100, L3890.6006, L3400.8000, L3890.6102, L3100.0440, L3890.6202, L3890.6301 ####[facility] [address] [place], [address] Performed By: #### L 503.6550, L100.0500, L501.5101 ####[facility] [address] [place], [address] Comprehensive Metabolic Prof [facility] 04-27-2025 Albumin [Mass/Vol] 3.7 g/dL Normal 3.4-4.8 [facility] Comment on above: Order Comment: Order Date: 04/11/25Order Info: 86-1 - CMPOrder Info: [id number] - LIPIDOrder Info: 4 - OJ Performed By: #### L 500.4050, L500.4100 ####[facility] [address] [place], [address] Albumin/Globulin [Mass ratio] 1.4 {ratio} Normal 0.9-2.4 [facility] Comment on above: Order Comment: Order Date: 04/11/25Order Info: 86-1 - CMPOrder Info: [id number] - LIPIDOrder Info: [id number] - OJ Performed By: #### L 500.4050, L500.4100 ####[facility] [address] [place], [address] ALK PHOS 65 U/L Normal 35-104 [facility] Comment on above: Order Comment: Order Date: 04/11/25Order Info: 785- - CMPOrder Info: [id number] - LIPIDOrder Info: [id number] - OJ Performed By: #### L 500.4050, L500.4100 ####[facility] [address] [place], [address] ALT [Catalytic activity/Vol] 25 U/L Normal <=34 [facility] Comment on above: Order Comment: Order Date: 04/11/25Order Info: 785- - CMPOrder Info: [id number] - LIPIDOrder Info: [id number] - OJ Performed By: #### L 500.4050, L500.4100 ####[facility] [address] [place], [address] AST [Catalytic activity/Vol] 36 U/L High <=31 [facility] Comment on above: Order Comment: Order Date: 04/11/25Order Info: 86-1 - CMPOrder Info: [id number] - LIPIDOrder Info: 4 - OJ Performed By: #### L 500.4050, L500.4100 ####[facility] [address] [place], [address] Bilirubin [Mass/Vol] 0.50 mg/dL Normal 0.00-1.30 [facility] Comment on above: Order Comment: Order Date: 04/11/25Order Info: 86-1 - CMPOrder Info: [id number] - LIPIDOrder Info: [id number] - OJ Performed By: #### L 500.4050, L500.4100 ####[facility] [address] [place], [address] BUN/CRE 21.2 RATIO High 10-20 [facility] Comment on above: Order Comment: Order Date: 04/11/25Order Info: 86-1 - CMPOrder Info: [id number] - LIPIDOrder Info: 4 - OJ Performed By: #### L 500.4050, L500.4100 ####[facility] [address] [place], [address] Calcium [Mass/Vol] 8.9 mg/dL Normal 7.6-11.0 [facility] Comment on above: Order Comment: Order Date: 04/11/25Order Info: [id number] - CMPOrder Info: [id number] - LIPIDOrder Info: [id number] - OJ Performed By: #### L 500.4050, L500.4100 ####[facility] [address] [place], [address] Chloride [Moles/Vol] 96 mmol/L Low 98-108 [facility] Comment on above: Order Comment: Order Date: 04/11/25Order Info: [id number] - CMPOrder Info: [id number] - LIPIDOrder Info: 4 - JO Performed By: #### L 500.4050, L500.4100 ####[facility] [address] [place], [address] CO2 [Moles/Vol] 27.3 mmol/L Normal 21.0-32.0 [facility] Comment on above: Order Comment: Order Date: 04/11/25Order Info: [id number] - CMPOrder Info: [id number] - LIPIDOrder Info: [id number] - OJ Performed By: #### L 500.4050, L500.4100 ####[facility] [address] [place], [address] Creatinine [Mass/Vol] 0.66 mg/dL Low 0.70-1.20 [facility] Comment on above: Order Comment: Order Date: 04/11/25Order Info: [id number] - CMPOrder Info: [id number] - LIPIDOrder Info: [id number] - OJ Performed By: #### L 500.4050, L500.4100 ####[facility] [address] [place], [address] GAP 11 Normal 5-15 [facility] Comment on above: Order Comment: Order Date: 04/11/25Order Info: 785- - CMPOrder Info: [id number] - LIPIDOrder Info: [id number] - OJ Performed By: #### L 500.4050, L500.4100 ####[facility] [address] [place], [address] GFR/1.73 sq M.predicted among non-blacks MDRD (S/P/Bld) [Vol rate/Area] 100 mL/min/{1.73_m2} Normal >60 [facility] Comment on above: Order Comment: Order Date: 04/11/25Order Info: [id number] - CMPOrder Info: [id number] - LIPIDOrder Info: 6-4 - OJ Result Comment: mL/m in/1.73m2 CKD-EPI Creatinine Equation (2020) Performed By: #### L 500.4050, L500.4100 ####[facility] [address] [place], [address] Globulin (S) [Mass/Vol] 2.6 g/dL Normal 2.2-4.2 [facility] Comment on above: Order Comment: Order Date: 04/11/25Order Info: 785- - CMPOrder Info: [id number] - LIPIDOrder Info: [id number] - OJ Performed By: #### L 500.4050, L500.4100 ####[facility] [address] [place], [address] Glucose [Mass/Vol] 122 mg/dL High 70-99 [facility] Comment on above: Order Comment: Order Date: 04/11/25Order Info: 785- - CMPOrder Info: [id number] - LIPIDOrder Info: 4 - OJ Performed By: #### L 500.4050, L500.4100 ####[facility] [address] [place], [address] Potassium [Moles/Vol] 3.6 mmol/L Normal 3.3-5.1 [facility] Comment on above: Order Comment: Order Date: 04/11/25Order Info: 785- - CMPOrder Info: [id number] - LIPIDOrder Info: [id number] - OJ Performed By: #### L 500.4050, L500.4100 ####[facility] [address] [place], [address] Sodium [Moles/Vol] 134 mmol/L Normal 133-145 [facility] Comment on above: Order Comment: Order Date: 04/11/25Order Info: [id number] - CMPOrder Info: [id number] - LIPIDOrder Info: 4 - OJ Performed By: #### L 500.4050, L500.4100 ####[facility] [address] [place], [address] T PROT 6.4 g/dL Normal 5.9-8.4 [facility] Comment on above: Order Comment: Order Date: 04/11/25Order Info: [id number] - CMPOrder Info: [id number] - LIPIDOrder Info: [id number] - OJ Performed By: #### L 500.4050, L500.4100 ####[facility] [address] [place], [address] Urea nitrogen [Mass/Vol] 14 mg/dL Normal 4-19 [facility] Comment on above: Order Comment: Order Date: 04/11/25Order Info: [id number] - CMPOrder Info: [id number] - LIPIDOrder Info: [id number] - OJ Performed By: #### L 500.4050, L500.4100 ####[facility] [address] [place], [address] Ferritinon 04-27-2025 Ferritin [Mass/Vol] 160 ng/mL Normal 22-[address] [facility] Comment on above: Order Comment: Order Date: 04/11/25Order Info: 07 - CMPOrder Info: [id number] - LIPIDOrder Info: [id number] - OJ Performed By: #### L 503.6550, L100.0500, L501.5101 ####[facility] [address] [place], [address] Hepatitis B Surface Antibody on 04-27-2025 HEP B Surf Ab REAC Normal [facility] Comment on above: Result Comment: <8.5 mIU/mL: Non-Reactive8.5<= x <11.5 mIU/mL: Indeterminate>=11.5 mIU/mL: Reactive Non Reactive: Inconsistent with immunity less than <10 mIU/mL Reactive: Consistent with immunity greater than or equal to 10 mIU/mL Performed By: #### L 506.1001, L509.8002, L100.0100, L3890.6006, L3400.8000, L3890.6102, L3100.0440, L3890.6202, L3890.6301 ####[facility] [address] [place], [address] Lipid Profileon 04-27-2025 CHOL:HDL 4.75 Normal [facility] Comment on above: Order Comment: Order Date: 04/11/25Order Info: [id number] - CMPOrder Info: [id number] - LIPIDOrder Info: [id number] - OJ Performed By: #### L 500.4050, L500.4100 ####[facility] [address] [place], [address] Cholesterol [Mass/Vol] 162 mg/dL Normal <=200 [facility] Comment on above: Order Comment: Order Date: 04/11/25Order Info: 07-1 - CMPOrder Info: - LIPIDOrder Info: [id number] - OJ Result Comment: Chol esterol level, Desirable <200 mg/dLBorderline high cholesterol 200-239 mg/dLHigh cholesterol >=240 mg/dLRecommendations of the NCEP Adult Treatment Panel for thefollowing risk-cutoff thresholds for the [place] [facility] [place]. Performed By: #### L 500.4050, L500.4100 ####[facility] [address] [place], [address] Cholesterol in HDL [Mass/Vol] 34 mg/dL Low [facility] Comment on above: Order Comment: Order Date: 04/11/25Order Info: [id number] - CMPOrder Info: - LIPIDOrder Info: [id number] - OJ Result Comment: Stephanie onal Cholesterol Education Program (NCEP) guidelines:<40 mg/dL: Low HDL-cholesterol (major risk factor for CHD)>= 60 mg/dL: High HDL-cholesterol (negative risk factor forCHD)HDL-cholesterol is affected by a number of factors, e.g.smoking, exercise, hormones, sex and age. Performed By: #### L 500.4050, L500.4100 ####[facility] [address] [place], [address] Cholesterol in LDL [Mass/Vol] 92 mg/dL Normal [facility] Comment on above: Order Comment: Order Date: 04/11/25Order Info: [id number] - CMPOrder Info: [id number] - LIPIDOrder Info: [id number] - OJ Result Comment: Bord jsmban=906-509 mg/dL Higher Idqs=323 mg/dL or greaterFriedwald Equation for LDL-C Performed By: #### L 500.4050, L500.4100 ####[facility] [address] [place], [address] Cholesterol in VLDL [Mass/Vol] 36 mg/dL Normal 5-40 [facility] Comment on above: Order Comment: Order Date: 04/11/25Order Info: [id number] - CMPOrder Info: [id number] - LIPIDOrder Info: [id number] - OJ Performed By: #### L 500.4050, L500.4100 ####[facility] [address] [place], [address] Triglyceride [Mass/Vol] 181 mg/dL Normal [facility] Comment on above: Order Comment: Order Date: 04/11/25Order Info: [id number] - CMPOrder Info: - LIPIDOrder Info: [id number] - OJ Result Comment: The drugs N-Acetylcysteine and Metamizole may falselydepress this assay.Normal range: <150 mg/dLBorderline High: 150-199 mg/dLHigh: 200-499 mg/dLVery High: >500 mg/dL Performed By: #### L 500.4050, L500.4100 ####[facility] [address] [place], [address] Syphilis Antibodieson 2024 Syphilis Abs Non-Reactive Normal Nonreactive [facility] Comment on above: Order Comment: Order Date: 04/11/25Order Info: [id number] - CMPOrder Info: [id number] - LIPIDOrder Info: [id number] - OJ Performed By: #### L 506.1001, L509.8002, L100.0100, L3890.6006, L3400.8000, L3890.6102, L3100.0440, L3890.6202, L3890.6301 ####[facility] [address] [place], [address] Valproic Acid (Depakene) Lev donny 04-27-2025 VALPROIC ACID 132 ug/mL High 50-100 [facility] Comment on above: Result Comment: Valp roic Acid concentrations >100 ug/mL are potentiallytoxic. Performed By: #### L 503.5510, L501.8100 ####[facility] [address] [place], [address] Vitamin D,25 Hydroxyon 04-27 Vitamin D 25-OH 83.2 ng/mL Normal 30-100 [facility] Comment on above: Order Comment: Order Date: 04/11/25Order Info: [id number] - CMPOrder Info: [id number] - LIPIDOrder Info: [id number] - OJ Result Comment: Ngoc min D StatusDeficiency: <20 ng/mL (50nmol/L)Insufficiency: 20-30 ng/mL (50-75 nmol/L)Sufficiency: 30-100 ng/mL (75-250 nmol/L)Toxicity: >100 ng/mL (>250 nmol/L) Performed By: #### L 506.1001, L509.8002, L100.0100, L3890.6006, L3400.8000, L3890.6102, L3100.0440, L3890.6202, L3890.6301 ####[facility] [address] [place], [address] Neurology Visit Reporton Neurology Visit Report Normal [facility] Emergency Department Summary on 01-24-2025 Emergency Department Summary Normal [facility] Pelvis 1 or 2 Viewson 2024 Pelvis 1 or [address] [facility] CBC W/Diff, Automatedon 01-11 Absolute Neut Normal 2.0-7.7 [facility] Comment on above: Result Comment: Canc elled via OM: Order cancelled - Patient discharged Performed By: #### L 100.0100 ####[facility] [address] [place], [address] HCT Normal 37-47 [facility] Comment on above: Result Comment: Canc elled via OM: Order cancelled - Patient discharged Performed By: #### L 100.0100 ####[facility] [address] [place], [address] HGB Normal 12.0-15.0 [facility] Comment on above: Result Comment: Canc elled via OM: Order cancelled - Patient discharged Performed By: #### L 100.0100 ####[facility] [address] [place], [address] MCH Normal 27.0-32.0 [facility] Comment on above: Result Comment: Canc elled via OM: Order cancelled - Patient discharged Performed By: #### L 100.0100 ####[facility] [address] [place], [address] MCHC Normal 32-36 [facility] Comment on above: Result Comment: Canc elled via OM: Order cancelled - Patient discharged Performed By: #### L 100.0100 ####[facility] [address] [place], [address] MCV Normal 81-99 [facility] Comment on above: Result Comment: Canc elled via OM: Order cancelled - Patient discharged Performed By: #### L 100.0100 ####[facility] [address] [place], [address] NEUT% Normal 47-70 [facility] Comment on above: Result Comment: Canc elled via OM: Order cancelled - Patient discharged Performed By: #### L 100.0100 ####[facility] [address] [place], [address] PLT Normal 150-450 [facility] Comment on above: Result Comment: Canc elled via OM: Order cancelled - Patient discharged Performed By: #### L 100.0100 ####[facility] [address] [place], [address] RBC Normal 4.2-5.4 [facility] Comment on above: Result Comment: Canc elled via OM: Order cancelled - Patient discharged Performed By: #### L 100.0100 ####[facility] [address] [place], [address] RDW CV Normal 11.6-14.6 [facility] Comment on above: Result Comment: Canc elled via OM: Order cancelled - Patient discharged Performed By: #### L 100.0100 ####[facility] [address] [place], [address] RDW SD Normal 35.1-43.9 [facility] Comment on above: Result Comment: Canc elled via OM: Order cancelled - Patient discharged Performed By: #### L 100.0100 ####[facility] [address] [place], [address] WBC Normal 4.4-11.0 [facility] Comment on above: Result Comment: Canc elled via OM: Order cancelled - Patient discharged Performed By: #### L 100.0100 ####[facility] [address] [place], [address] Ammoniaon 01-22-2025 Ammonia (P) [Moles/Vol] 44.6 umol/L Normal 11-51 [facility] Comment on above: Performed By: #### L 500.4050, L503.5510 ####[facility] [address] [place], [address] Comprehensive Metabolic Prof ilon 01-22-2025 Albumin [Mass/Vol] 3.7 g/dL Normal 3.4-4.8 [facility] Comment on above: Performed By: #### L 500.4050, L503.5510 ####[facility] [address] [place], [address] Albumin/Globulin [Mass ratio] 1.3 {ratio} Normal 0.9-2.4 [facility] Comment on above: Performed By: #### L 500.4050, L503.5510 ####[facility] [address] [place], [address] ALK PHOS 85 U/L Normal 35-104 [facility] Comment on above: Performed By: #### L 500.4050, L503.5510 ####[facility] [address] [place], [address] ALT [Catalytic activity/Vol] 22 U/L Normal <=34 [facility] Comment on above: Performed By: #### L 500.4050, L503.5510 ####[facility] [address] [place], [address] AST [Catalytic activity/Vol] 31 U/L Normal <=31 [facility] Comment on above: Result Comment: Hemo lysis present, Results??could be affected.?? Performed By: #### L 500.4050, L503.5510 ####[facility] [address] [place], [address] Bilirubin [Mass/Vol] 0.42 mg/dL Normal 0.00-1.30 [facility] Comment on above: Performed By: #### L 500.4050, L503.5510 ####[facility] [address] [place], [address] BUN/CRE 18.4 RATIO Normal 10-20 [facility] Comment on above: Performed By: #### L 500.4050, L503.5510 ####[facility] [address] [place], [address] Calcium [Mass/Vol] 9.0 mg/dL Normal 7.6-11.0 [facility] Comment on above: Performed By: #### L 500.4050, L503.5510 ####[facility] [address] [place], [address] Chloride [Moles/Vol] 101 mmol/L Normal 98-108 [facility] Comment on above: Performed By: #### L 500.4050, L503.5510 ####[facility] [address] [place], [address] CO2 [Moles/Vol] 26.2 mmol/L Normal 21.0-32.0 [facility] Comment on above: Performed By: #### L 500.4050, L503.5510 ####[facility] [address] [place], [address] Creatinine [Mass/Vol] 0.67 mg/dL Low 0.70-1.20 [facility] Comment on above: Performed By: #### L 500.4050, L503.5510 ####[facility] [address] [place], [address] ECRCL 94.22 ml/min Normal 50-250 [facility] Comment on above: Performed By: #### L 500.4050, L503.5510 ####[facility] [address] [place], [address] GAP 12 Normal 5-15 [facility] Comment on above: Performed By: #### L 500.4050, L503.5510 ####[facility] [address] [place], [address] GFR/1.73 sq M.predicted among non-blacks MDRD (S/P/Bld) [Vol rate/Area] 100 mL/min/{1.73_m2} Normal >60 [facility] Comment on above: Result Comment: mL/m in/1.73m2 CKD-EPI Creatinine Equation (2020) Performed By: #### L 500.4050, L503.5510 ####[facility] [address] [place], [address] Globulin (S) [Mass/Vol] 2.8 g/dL Normal 2.2-4.2 [facility] Comment on above: Performed By: #### L 500.4050, L503.5510 ####[facility] [address] [place], [address] Glucose [Mass/Vol] 87 mg/dL Normal 70-99 [facility] Comment on above: Performed By: #### L 500.4050, L503.5510 ####[facility] [address] [place], [address] Potassium [Moles/Vol] 3.9 mmol/L Normal 3.3-5.1 [facility] Comment on above: Result Comment: Hemo lysis present, Results??could be affected.?? Performed By: #### L 500.4050, L503.5510 ####[facility] [address] [place], [address] Sodium [Moles/Vol] 139 mmol/L Normal 133-145 [facility] Comment on above: Performed By: #### L 500.4050, L503.5510 ####[facility] [address] [place], [address] T PROT 6.4 g/dL Normal 5.9-8.4 [facility] Comment on above: Performed By: #### L 500.4050, L503.5510 ####[facility] [address] [place], [address] Urea nitrogen [Mass/Vol] 12 mg/dL Normal 4-19 [facility] Comment on above: Performed By: #### L 500.4050, L503.5510 ####[facility] [address] [place], [address] Urinalysis, Completeon 01-22 EPI,TRANSITION 0-5 SEEN Normal 0-5 [facility] Comment on above: Order Comment: TAQUERIA TER SPECIMEN Performed By: #### L 400.0001 ####[facility] [address] [place], [address] BACTERIA 1+ /hpf Normal None Seen [facility] Comment on above: Order Comment: TAQUERIA TER SPECIMEN Performed By: #### L 400.0001 ####[facility] [address] [place], [address] RBC > 100 SEEN Normal 0-5 [facility] Comment on above: Order Comment: TAQUERIA TER SPECIMEN Performed By: #### L 400.0001 ####[facility] [address] [place], [address] WBC >100 SEEN Normal 0-5 [facility] Comment on above: Order Comment: TAQUERIA TER SPECIMEN Performed By: #### L 400.0001 ####[facility] [address] [place], [address] EPI,SQUAMOUS 0 SEEN Normal 5-10 [facility] Comment on above: Order Comment: TAQUERIA TER SPECIMEN Performed By: #### L 400.0001 ####[facility] [address] [place], [address] Mucus Ql (Urine sed) 0 SEEN Normal [facility] Comment on above: Order Comment: TAQUERIA TER SPECIMEN Performed By: #### L 400.0001 ####[facility] [address] [place], [address] Ammoniaon 01-21-2025 Ammonia (P) [Moles/Vol] 64.9 umol/L High 11-51 [facility] Comment on above: Performed By: #### L 100.0100, L500.4050, L503.5510 ####[facility] [address] [place], [address] [facility] SANDRINE TEST N/A Normal [facility] Comment on above: Performed By: #### L 9000.0800 ####[facility] [address] [place], [address] Base excess Calc (Bld) [Moles/Vol] 9 mmol/L High -2 to +2 [facility] Comment on above: Performed By: #### L 9000.0800 ####[facility] [address] [place], [address] Blood Gas Type ART Normal [facility] Comment on above: Performed By: #### L 0.0800 ####[facility] [address] [place], [address] CO2 [Moles/Vol] 34 mmol/L Normal [facility] Comment on above: Performed By: #### L 9000.0800 ####[facility] [address] [place], [address] HCO3 (Bld) [Moles/Vol] 32.5 mmol/L High 22-26 [facility] Comment on above: Performed By: #### L 9000.0800 ####[facility] [address] [place], [address] Mode Not entered Normal [facility] Comment on above: Performed By: #### L 0.0800 ####[facility] [address] [place], [address] O2 Delivery Dev Room Air Normal [facility] Comment on above: Performed By: #### L 0.0800 ####[facility] [address] [place], [address] pCO2 42.9 mmHg Normal 35-45 [facility] Comment on above: Performed By: #### L 9000.0800 ####[facility] [address] [place], [address] pH (Bld) 7.49 [pH] High 7.35-7.45 [facility] Comment on above: Performed By: #### L 9000.0800 ####[facility] [address] [place], [address] PO2 70 mmHG Low 75-100 [facility] Comment on above: Performed By: #### L 9000.0800 ####[facility] [address] [place], [address] SITE L Radial Normal [facility] Comment on above: Performed By: #### L 0.0800 ####[facility] [address] [place], [address] SO2 95 Normal 95-99 [facility] Comment on above: Performed By: #### L 0.0800 ####[facility] [address] [place], [address] CBC W/Diff, Automatedon 07- Absolute Lymph 2.69 X10 3/uL Normal 0.83-4.51 [facility] Comment on above: Performed By: #### L 100.0100, L500.4050, L503.5510 ####[facility] [address] [place], [address] Absolute Neut 6.5 X10 3/uL Normal 2.0-7.7 [facility] Comment on above: Performed By: #### L 100.0100, L500.4050, L503.5510 ####[facility] [address] [place], [address] Basophils/100 WBC (Bld) 0.7 % Normal 0-1 [facility] Comment on above: Performed By: #### L 100.0100, L500.4050, L503.5510 ####[facility] [address] [place], [address] Eosinophils/100 WBC (Bld) 2.0 % Normal 0-5 [facility] Comment on above: Performed By: #### L 100.0100, L500.4050, L503.5510 ####[facility] [address] [place], [address] Erythrocyte distribution width (RBC) [Ratio] 12.3 % Normal 11.6-14.6 [facility] Comment on above: Performed By: #### L 100.0100, L500.4050, L503.5510 ####[facility] [address] [place], [address] Hematocrit (Bld) [Volume fraction] 36.2 % Low 37-47 [facility] Comment on above: Performed By: #### L 100.0100, L500.4050, L503.5510 ####[facility] [address] [place], [address] Hemoglobin (Bld) [Mass/Vol] 12.2 g/dL Normal 12.0-15.0 [facility] Comment on above: Performed By: #### L 100.0100, L500.4050, L503.5510 ####[facility] [address] [place], [address] IG% 0.300 Normal 0.0-0.9 [facility] Comment on above: Result Comment: IG% - Immature Granulocytes (promyelocytes, myelocytes andmetamyelocytes) > 1% indicates that a LEFT SHIFT is Present. Performed By: #### L 100.0100, L500.4050, L503.5510 ####[facility] [address] [place], [address] Lymphocytes/100 WBC (Bld) 26.5 % Normal 19-41 [facility] Comment on above: Performed By: #### L 100.0100, L500.4050, L503.5510 ####[facility] [address] [place], [address] MCH (RBC) [Entitic mass] 33.2 pg High 27.0-32.0 [facility] Comment on above: Performed By: #### L 100.0100, L500.4050, L503.5510 ####[facility] [address] [place], [address] MCHC (RBC) [Mass/Vol] 33.7 g/dL Normal 32-36 [facility] Comment on above: Performed By: #### L 100.0100, L500.4050, L503.5510 ####[facility] [address] [place], [address] MCV (RBC) [Entitic vol] 98.6 fL Normal 81-99 [facility] Comment on above: Performed By: #### L 100.0100, L500.4050, L503.5510 ####[facility] [address] [place], [address] Monocytes/100 WBC (Bld) 6.7 % Normal 0-10 [facility] Comment on above: Performed By: #### L 100.0100, L500.4050, L503.5510 ####[facility] [address] [place], [address] Neutrophils/100 WBC (Bld) 63.8 % Normal 47-70 [facility] Comment on above: Performed By: #### L 100.0100, L500.4050, L503.5510 ####[facility] [address] [place], [address] Nucleated RBC (Bld) [#/Vol] 0 10*3/uL Normal 0-5 [facility] Comment on above: Performed By: #### L 100.0100, L500.4050, L503.5510 ####[facility] [address] [place], [address] Platelet mean volume (Bld) [Entitic vol] 10.3 fL Normal 6.2-12.0 [facility] Comment on above: Performed By: #### L 100.0100, L500.4050, L503.5510 ####[facility] [address] [place], [address] Platelets (Bld) [#/Vol] 150 10*3/uL Normal 150-450 [facility] Comment on above: Performed By: #### L 100.0100, L500.4050, L503.5510 ####[facility] [address] [place], [address] RBC (Bld) [#/Vol] 3.67 10*6/uL Low 4.2-5.[address] [facility] Comment on above: Performed By: #### L 100.0100, L500.4050, L503.5510 ####[facility] [address] [place], [address] RDW SD 44.4 fl High 35.1-43.9 [facility] Comment on above: Performed By: #### L 100.0100, L500.4050, L503.5510 ####[facility] [address] [place], [address] WBC (Bld) [#/Vol] 10.1 10*3/uL Normal 4.4-11.[address] [facility] Comment on above: Performed By: #### L 100.0100, L500.4050, L503.5510 ####[facility] [address] [place], [address] Comprehensive Metabolic Prof ilon 01-21-2025 Albumin [Mass/Vol] 3.6 g/dL Normal 3.4-4.8 [facility] Comment on above: Performed By: #### L 100.0100, L500.4050, L503.5510 ####[facility] [address] [place], [address] Albumin/Globulin [Mass ratio] 1.4 {ratio} Normal 0.9-2.4 [facility] Comment on above: Performed By: #### L 100.0100, L500.4050, L503.5510 ####[facility] [address] [place], [address] ALK PHOS 85 U/L Normal 35-104 [facility] Comment on above: Performed By: #### L 100.0100, L500.4050, L503.5510 ####[facility] [address] [place], [address] ALT [Catalytic activity/Vol] 27 U/L Normal <=34 [facility] Comment on above: Performed By: #### L 100.0100, L500.4050, L503.5510 ####[facility] [address] [place], [address] AST [Catalytic activity/Vol] 23 U/L Normal <=31 [facility] Comment on above: Performed By: #### L 100.0100, L500.4050, L503.5510 ####[facility] [address] [place], [address] Bilirubin [Mass/Vol] 0.35 mg/dL Normal 0.00-1.30 [facility] Comment on above: Performed By: #### L 100.0100, L500.4050, L503.5510 ####[facility] [address] [place], [address] BUN/CRE 19.5 RATIO Normal 10-20 [facility] Comment on above: Performed By: #### L 100.0100, L500.4050, L503.5510 ####[facility] [address] [place], [address] Calcium [Mass/Vol] 9.1 mg/dL Normal 7.6-11.0 [facility] Comment on above: Performed By: #### L 100.0100, L500.4050, L503.5510 ####[facility] [address] [place], [address] Chloride [Moles/Vol] 100 mmol/L Normal 98-108 [facility] Comment on above: Performed By: #### L 100.0100, L500.4050, L503.5510 ####[facility] [address] [place], [address] CO2 [Moles/Vol] 29.1 mmol/L Normal 21.0-32.0 [facility] Comment on above: Performed By: #### L 100.0100, L500.4050, L503.5510 ####[facility] [address] [place], [address] Creatinine [Mass/Vol] 0.66 mg/dL Low 0.70-1.20 [facility] Comment on above: Performed By: #### L 100.0100, L500.4050, L503.5510 ####[facility] [address] [place], [address] ECRCL 96.28 ml/min Normal 50-250 [facility] Comment on above: Performed By: #### L 100.0100, L500.4050, L503.5510 ####[facility] [address] [place], [address] GAP 10 Normal 5-15 [facility] Comment on above: Performed By: #### L 100.0100, L500.4050, L503.5510 ####[facility] [address] [place], [address] GFR/1.73 sq M.predicted among non-blacks MDRD (S/P/Bld) [Vol rate/Area] 101 mL/min/{1.73_m2} Normal >60 [facility] Comment on above: Result Comment: mL/m in/1.73m2 CKD-EPI Creatinine Equation (2020) Performed By: #### L 100.0100, L500.4050, L503.5510 ####[facility] [address] [place], [address] Globulin (S) [Mass/Vol] 2.6 g/dL Normal 2.2-4.2 [facility] Comment on above: Performed By: #### L 100.0100, L500.4050, L503.5510 ####[facility] [address] [place], [address] Glucose [Mass/Vol] 92 mg/dL Normal 70-99 [facility] Comment on above: Performed By: #### L 100.0100, L500.4050, L503.5510 ####[facility] [address] [place], [address] Potassium [Moles/Vol] 3.9 mmol/L Normal 3.3-5.1 [facility] Comment on above: Performed By: #### L 100.0100, L500.4050, L503.5510 ####[facility] [address] [place], [address] Sodium [Moles/Vol] 139 mmol/L Normal 133-145 [facility] Comment on above: Performed By: #### L 100.0100, L500.4050, L503.5510 ####[facility] [address] [place], [address] T PROT 6.2 g/dL Normal 5.9-8.4 [facility] Comment on above: Performed By: #### L 100.0100, L500.4050, L503.5510 ####[facility] [address] [place], [address] Urea nitrogen [Mass/Vol] 13 mg/dL Normal 4-19 [facility] Comment on above: Performed By: #### L 100.0100, L500.4050, L503.5510 ####[facility] [address] [place], [address] Discharge Instructionon -07 14-2024 Discharge Instruction Normal [facility] CBC W/Diff, Automatedon 07-0 -2024 Absolute Lymph 2.37 X10 3/uL Normal 0.83-4.51 [facility] Comment on above: Performed By: #### L 501.9520, L500.4100, L100.0100, L501.9985, L500.4050 ####[facility] [address] [place], [address] Absolute Neut 3.6 X10 3/uL Normal 2.0-7.7 [facility] Comment on above: Performed By: #### L 501.9520, L500.4100, L100.0100, L501.9985, L500.4050 ####[facility] [address] [place], [address] Basophils/100 WBC (Bld) 0.8 % Normal 0-1 [facility] Comment on above: Performed By: #### L 501.9520, L500.4100, L100.0100, L501.9985, L500.4050 ####[facility] [address] [place], [address] Eosinophils/100 WBC (Bld) 4.2 % Normal 0-5 [facility] Comment on above: Performed By: #### L 501.9520, L500.4100, L100.0100, L501.9985, L500.4050 ####[facility] [address] [place], [address] Erythrocyte distribution width (RBC) [Ratio] 12.7 % Normal 11.6-14.6 [facility] Comment on above: Performed By: #### L 501.9520, L500.4100, L100.0100, L501.9985, L500.4050 ####[facility] [address] [place], [address] Hematocrit (Bld) [Volume fraction] 36.2 % Low 37-47 [facility] Comment on above: Performed By: #### L 501.9520, L500.4100, L100.0100, L501.9985, L500.4050 ####[facility] [address] [place], [address] Hemoglobin (Bld) [Mass/Vol] 12.1 g/dL Normal 12.0-15.0 [facility] Comment on above: Performed By: #### L 501.9520, L500.4100, L100.0100, L501.9985, L500.4050 ####[facility] [address] [place], [address] IG% 0.300 Normal 0.0-0.9 [facility] Comment on above: Result Comment: IG% - Immature Granulocytes (promyelocytes, myelocytes andmetamyelocytes) > 1% indicates that a LEFT SHIFT is Present. Performed By: #### L 501.9520, L500.4100, L100.0100, L501.9985, L500.4050 ####[facility] [address] [place], [address] Lymphocytes/100 WBC (Bld) 33.4 % Normal 19-41 [facility] Comment on above: Performed By: #### L 501.9520, L500.4100, L100.0100, L501.9985, L500.4050 ####[facility] [address] [place], [address] MCH (RBC) [Entitic mass] 32.9 pg High 27.0-32.0 [facility] Comment on above: Performed By: #### L 501.9520, L500.4100, L100.0100, L501.9985, L500.4050 ####[facility] [address] [place], [address] MCHC (RBC) [Mass/Vol] 33.4 g/dL Normal 32-36 [facility] Comment on above: Performed By: #### L 501.9520, L500.4100, L100.0100, L501.9985, L500.4050 ####[facility] [address] [place], [address] MCV (RBC) [Entitic vol] 98.4 fL Normal 81-99 [facility] Comment on above: Performed By: #### L 501.9520, L500.4100, L100.0100, L501.9985, L500.4050 ####[facility] [address] [place], [address] Monocytes/100 WBC (Bld) 11.3 % High 0-10 [facility] Comment on above: Performed By: #### L 501.9520, L500.4100, L100.0100, L501.9985, L500.4050 ####[facility] [address] [place], [address] Neutrophils/100 WBC (Bld) 50.0 % Normal 47-70 [facility] Comment on above: Performed By: #### L 501.9520, L500.4100, L100.0100, L501.9985, L500.4050 ####[facility] [address] [place], [address] Nucleated RBC (Bld) [#/Vol] 0 10*3/uL Normal 0-5 [facility] Comment on above: Performed By: #### L 501.9520, L500.4100, L100.0100, L501.9985, L500.4050 ####[facility] [address] [place], [address] Platelet mean volume (Bld) [Entitic vol] 10.0 fL Normal 6.2-12.0 [facility] Comment on above: Performed By: #### L 501.9520, L500.4100, L100.0100, L501.9985, L500.4050 ####[facility] [address] [place], [address] Platelets (Bld) [#/Vol] 169 10*3/uL Normal 150-450 [facility] Comment on above: Performed By: #### L 501.9520, L500.4100, L100.0100, L501.9985, L500.4050 ####[facility] [address] [place], [address] RBC (Bld) [#/Vol] 3.68 10*6/uL Low 4.2-5.[address] [facility] Comment on above: Performed By: #### L 501.9520, L500.4100, L100.0100, L501.9985, L500.4050 ####[facility] [address] [place], [address] RDW SD 45.7 fl High 35.1-43.9 [facility] Comment on above: Performed By: #### L 501.9520, L500.4100, L100.0100, L501.9985, L500.4050 ####[facility] [address] [place], [address] WBC (Bld) [#/Vol] 7.1 10*3/uL Normal 4.4-11.0 [facility] Comment on above: Performed By: #### L 501.9520, L500.4100, L100.0100, L501.9985, L500.4050 ####[facility] [address] [place], [address] Comprehensive Metabolic Prof [facility] 01-18-2025 Albumin [Mass/Vol] 3.7 g/dL Normal 3.4-4.8 [facility] Comment on above: Performed By: #### L 501.9520, L500.4100, L100.0100, L501.9985, L500.4050 ####[facility] [address] [place], [address] Albumin/Globulin [Mass ratio] 1.6 {ratio} Normal 0.9-2.4 [facility] Comment on above: Performed By: #### L 501.9520, L500.4100, L100.0100, L501.9985, L500.4050 ####[facility] [address] [place], [address] ALK PHOS 111 U/L High 35-104 [facility] Comment on above: Performed By: #### L 501.9520, L500.4100, L100.0100, L501.9985, L500.4050 ####[facility] [address] [place], [address] ALT [Catalytic activity/Vol] 72 U/L High <=34 [facility] Comment on above: Performed By: #### L 501.9520, L500.4100, L100.0100, L501.9985, L500.4050 ####[facility] [address] [place], [address] AST [Catalytic activity/Vol] 56 U/L High <=31 [facility] Comment on above: Performed By: #### L 501.9520, L500.4100, L100.0100, L501.9985, L500.4050 ####[facility] [address] [place], [address] Bilirubin [Mass/Vol] 0.36 mg/dL Normal 0.00-1.30 [facility] Comment on above: Performed By: #### L 501.9520, L500.4100, L100.0100, L501.9985, L500.4050 ####[facility] [address] [place], [address] BUN/CRE 20.6 RATIO High 10-20 [facility] Comment on above: Performed By: #### L 501.9520, L500.4100, L100.0100, L501.9985, L500.4050 ####[facility] [address] [place], [address] Calcium [Mass/Vol] 8.9 mg/dL Normal 7.6-11.0 [facility] Comment on above: Performed By: #### L 501.9520, L500.4100, L100.0100, L501.9985, L500.4050 ####[facility] [address] [place], [address] Chloride [Moles/Vol] 104 mmol/L Normal 98-108 [facility] Comment on above: Performed By: #### L 501.9520, L500.4100, L100.0100, L501.9985, L500.4050 ####[facility] [address] [place], [address] CO2 [Moles/Vol] 27.3 mmol/L Normal 21.0-32.0 [facility] Comment on above: Performed By: #### L 501.9520, L500.4100, L100.0100, L501.9985, L500.4050 ####[facility] [address] [place], [address] Creatinine [Mass/Vol] 0.65 mg/dL Low 0.70-1.20 [facility] Comment on above: Performed By: #### L 501.9520, L500.4100, L100.0100, L501.9985, L500.4050 ####[facility] [address] [place], [address] ECRCL 98.69 ml/min Normal 50-250 [facility] Comment on above: Performed By: #### L 501.9520, L500.4100, L100.0100, L501.9985, L500.4050 ####[facility] [address] [place], [address] GAP 11 Normal 5-15 [facility] Comment on above: Performed By: #### L 501.9520, L500.4100, L100.0100, L501.9985, L500.4050 ####[facility] [address] [place], [address] GFR/1.73 sq M.predicted among non-blacks MDRD (S/P/Bld) [Vol rate/Area] 101 mL/min/{1.73_m2} Normal >60 [facility] Comment on above: Result Comment: mL/m in/1.73m2 CKD-EPI Creatinine Equation (2020) Performed By: #### L 501.9520, L500.4100, L100.0100, L501.9985, L500.4050 ####[facility] [address] [place], [address] Globulin (S) [Mass/Vol] 2.2 g/dL Normal 2.2-4.2 [facility] Comment on above: Performed By: #### L 501.9520, L500.4100, L100.0100, L501.9985, L500.4050 ####[facility] [address] [place], [address] Glucose [Mass/Vol] 107 mg/dL High 70-99 [facility] Comment on above: Performed By: #### L 501.9520, L500.4100, L100.0100, L501.9985, L500.4050 ####[facility] [address] [place], [address] Potassium [Moles/Vol] 3.6 mmol/L Normal 3.3-5.1 [facility] Comment on above: Performed By: #### L 501.9520, L500.4100, L100.0100, L501.9985, L500.4050 ####[facility] [address] [place], [address] Sodium [Moles/Vol] 142 mmol/L Normal 133-145 [facility] Comment on above: Performed By: #### L 501.9520, L500.4100, L100.0100, L501.9985, L500.4050 ####[facility] [address] [place], [address] T PROT 5.9 g/dL Normal 5.9-8.4 [facility] Comment on above: Performed By: #### L 501.9520, L500.4100, L100.0100, L501.9985, L500.4050 ####[facility] [address] [place], [address] Urea nitrogen [Mass/Vol] 13 mg/dL Normal 4-19 [facility] Comment on above: Performed By: #### L 501.9520, L500.4100, L100.0100, L501.9985, L500.4050 ####[facility] [address] [place], [address] Hemoglobin A1con 01-18-2025 HbA1c (Bld) [Mass fraction] 5.6 % Normal <=5.6 [facility] Comment on above: Result Comment: Norm al < 5.7 % Prediabetic 5.7 - 6.4 % Diabetic >or= 6.5 % Please note range changes. Performed By: #### L 501.9520, L500.4100, L100.0100, L501.9985, L500.4050 ####[facility] [address] [place], [address] Lipid Profileon 01-18-2025 CHOL:HDL 4.49 Normal [facility] Comment on above: Performed By: #### L 501.9520, L500.4100, L100.0100, L501.9985, L500.4050 ####[facility] [address] [place], [address] Cholesterol [Mass/Vol] 144 mg/dL Normal <=200 [facility] Comment on above: Result Comment: Chol esterol level, Desirable <200 mg/dLBorderline high cholesterol 200-239 mg/dLHigh cholesterol >=240 mg/dLRecommendations of the NCEP Adult Treatment Panel for thefollowing risk-cutoff thresholds for the [place] [facility] [place]. Performed By: #### L 501.9520, L500.4100, L100.0100, L501.9985, L500.4050 ####[facility] [address] [place], [address] Cholesterol in HDL [Mass/Vol] 32 mg/dL Low [facility] Comment on above: Result Comment: Stephanie onal Cholesterol Education Program (NCEP) guidelines:<40 mg/dL: Low HDL-cholesterol (major risk factor for CHD)>= 60 mg/dL: High HDL-cholesterol (negative risk factor forCHD)HDL-cholesterol is affected by a number of factors, e.g.smoking, exercise, hormones, sex and age. Performed By: #### L 501.9520, L500.4100, L100.0100, L501.9985, L500.4050 ####[facility] [address] [place], [address] Cholesterol in LDL [Mass/Vol] 61 mg/dL Normal [facility] Comment on above: Result Comment: Bord jfjywm=057-087 mg/dL Higher Zrhp=139 mg/dL or greater Performed By: #### L 501.9520, L500.4100, L100.0100, L501.9985, L500.4050 ####[facility] [address] [place], [address] Cholesterol in VLDL [Mass/Vol] 51 mg/dL High 5-40 [facility] Comment on above: Performed By: #### L 501.9520, L500.4100, L100.0100, L501.9985, L500.4050 ####[facility] [address] [place], [address] Triglyceride [Mass/Vol] 256 mg/dL High [facility] Comment on above: Result Comment: The drugs N-Acetylcysteine and Metamizole may falselydepress this assay.Normal range: <150 mg/dLBorderline High: 150-199 mg/dLHigh: 200-499 mg/dLVery High: >500 mg/dL Performed By: #### L 501.9520, L500.4100, L100.0100, L501.9985, L500.4050 ####[facility] [address] [place], [address] MR/CON.PCM.NEon 01-18-2025 MR/CON.PCM.NE Normal [facility] Thyroid Stim Hormone (TSH)on 01-18-2025 TSH 2.370 uIU/mL Normal 0.300-4.200 [facility] Comment on above: Performed By: #### L 501.9520, L500.4100, L100.0100, L501.9985, L500.4050 ####[facility] [address] [place], [address] 12 Lead EKGon 01-17-2025 12 Lead EKG Normal [facility] Alcohol, Blood (Medical)-Ser umon 01-17-2025 SERUM ETOH < 10.1 Normal <=10.0 [facility] Comment on above: Result Comment: This test is for medical purposes only. The legaldefinition of intoxication varies according to local law. Performed By: #### L 505.5000, L501.9100 ####[facility] [address] [place], [address] Basic Metabolic Profile (BMP )on 01-17-2025 BUN/CRE 14.8 RATIO Normal 10-20 [facility] Comment on above: Performed By: #### L 501.4021, L300.3900, L100.0100, L500.2500, L300.4310 ####[facility] [address] [place], [address] Calcium [Mass/Vol] 9.4 mg/dL Normal 7.6-11.0 [facility] Comment on above: Performed By: #### L 501.4021, L300.3900, L100.0100, L500.2500, L300.4310 ####[facility] [address] [place], [address] Chloride [Moles/Vol] 99 mmol/L Normal 98-108 [facility] Comment on above: Performed By: #### L 501.4021, L300.3900, L100.0100, L500.2500, L300.4310 ####[facility] [address] [place], [address] CO2 [Moles/Vol] 25.1 mmol/L Normal 21.0-32.0 [facility] Comment on above: Performed By: #### L 501.4021, L300.3900, L100.0100, L500.2500, L300.4310 ####[facility] [address] [place], [address] Creatinine [Mass/Vol] 0.63 mg/dL Low 0.70-1.20 [facility] Comment on above: Performed By: #### L 501.4021, L300.3900, L100.0100, L500.2500, L300.4310 ####[facility] [address] [place], [address] ECRCL 97.68 ml/min Normal 50-250 [facility] Comment on above: Performed By: #### L 501.4021, L300.3900, L100.0100, L500.2500, L300.4310 ####[facility] [address] [place], [address] GAP 16 High 5-15 [facility] Comment on above: Performed By: #### L 501.4021, L300.3900, L100.0100, L500.2500, L300.4310 ####[facility] [address] [place], [address] GFR/1.73 sq M.predicted among non-blacks MDRD (S/P/Bld) [Vol rate/Area] 102 mL/min/{1.73_m2} Normal >60 [facility] Comment on above: Result Comment: mL/m in/1.73m2 CKD-EPI Creatinine Equation (2020) Performed By: #### L 501.4021, L300.3900, L100.0100, L500.2500, L300.4310 ####[facility] [address] [place], [address] Glucose [Mass/Vol] 154 mg/dL High 70-99 [facility] Comment on above: Performed By: #### L 501.4021, L300.3900, L100.0100, L500.2500, L300.4310 ####[facility] [address] [place], [address] Potassium [Moles/Vol] 3.8 mmol/L Normal 3.3-5.1 [facility] Comment on above: Result Comment: Hemo lysis present, Results??could be affected.?? Performed By: #### L 501.4021, L300.3900, L100.0100, L500.2500, L300.4310 ####[facility] [address] [place], [address] Sodium [Moles/Vol] 140 mmol/L Normal 133-145 [facility] Comment on above: Performed By: #### L 501.4021, L300.3900, L100.0100, L500.2500, L300.4310 ####[facility] [address] [place], [address] Urea nitrogen [Mass/Vol] 9 mg/dL Normal 4-19 [facility] Comment on above: Performed By: #### L 501.4021, L300.3900, L100.0100, L500.2500, L300.4310 ####[facility] [address] [place], [address] Bedside Glucoseon 01-17-2025 FINGERSTICK GLU 124 mg/dL High 74-106 [facility] Comment on above: Result Comment: HAO MONREAL OF PATIENT CARE PER NURSING PROTOCOL Performed By: #### L 501.080 ####[facility] [address] [place], [address] Brain without Contraston Brain without Contrast Normal [facility] CBC W/Diff, Automatedon Absolute Lymph 1.98 X10 3/uL Normal 0.83-4.51 [facility] Comment on above: Performed By: #### L 501.4021, L300.3900, L100.0100, L500.2500, L300.4310 ####[facility] [address] [place], [address] Absolute Neut 4.0 X10 3/uL Normal 2.0-7.7 [facility] Comment on above: Performed By: #### L 501.4021, L300.3900, L100.0100, L500.2500, L300.4310 ####[facility] [address] [place], [address] Basophils/100 WBC (Bld) 1.0 % Normal 0-1 [facility] Comment on above: Performed By: #### L 501.4021, L300.3900, L100.0100, L500.2500, L300.4310 ####[facility] [address] [place], [address] Eosinophils/100 WBC (Bld) 1.6 % Normal 0-5 [facility] Comment on above: Performed By: #### L 501.4021, L300.3900, L100.0100, L500.2500, L300.4310 ####[facility] [address] [place], [address] Erythrocyte distribution width (RBC) [Ratio] 12.2 % Normal 11.6-14.6 [facility] Comment on above: Performed By: #### L 501.4021, L300.3900, L100.0100, L500.2500, L300.4310 ####[facility] [address] [place], [address] Hematocrit (Bld) [Volume fraction] 40.4 % Normal 37-47 [facility] Comment on above: Performed By: #### L 501.4021, L300.3900, L100.0100, L500.2500, L300.4310 ####[facility] [address] [place], [address] Hemoglobin (Bld) [Mass/Vol] 13.8 g/dL Normal 12.0-15.0 [facility] Comment on above: Performed By: #### L 501.4021, L300.3900, L100.0100, L500.2500, L300.4310 ####[facility] [address] [place], [address] IG% 0.600 Normal 0.0-0.9 [facility] Comment on above: Result Comment: IG% - Immature Granulocytes (promyelocytes, myelocytes andmetamyelocytes) > 1% indicates that a LEFT SHIFT is Present. Performed By: #### L 501.4021, L300.3900, L100.0100, L500.2500, L300.4310 ####[facility] [address] [place], [address] Lymphocytes/100 WBC (Bld) 28.2 % Normal 19-41 [facility] Comment on above: Performed By: #### L 501.4021, L300.3900, L100.0100, L500.2500, L300.4310 ####[facility] [address] [place], [address] MCH (RBC) [Entitic mass] 33.0 pg High 27.0-32.0 [facility] Comment on above: Performed By: #### L 501.4021, L300.3900, L100.0100, L500.2500, L300.4310 ####[facility] [address] [place], [address] MCHC (RBC) [Mass/Vol] 34.2 g/dL Normal 32-36 [facility] Comment on above: Performed By: #### L 501.4021, L300.3900, L100.0100, L500.2500, L300.4310 ####[facility] [address] [place], [address] MCV (RBC) [Entitic vol] 96.7 fL Normal 81-99 [facility] Comment on above: Performed By: #### L 501.4021, L300.3900, L100.0100, L500.2500, L300.4310 ####[facility] [address] [place], [address] Monocytes/100 WBC (Bld) 11.0 % High 0-10 [facility] Comment on above: Performed By: #### L 501.4021, L300.3900, L100.0100, L500.2500, L300.4310 ####[facility] [address] [place], [address] Neutrophils/100 WBC (Bld) 57.6 % Normal 47-70 [facility] Comment on above: Performed By: #### L 501.4021, L300.3900, L100.0100, L500.2500, L300.4310 ####[facility] [address] [place], [address] Nucleated RBC (Bld) [#/Vol] 0 10*3/uL Normal 0-5 [facility] Comment on above: Performed By: #### L 501.4021, L300.3900, L100.0100, L500.2500, L300.4310 ####[facility] [address] [place], [address] Platelet mean volume (Bld) [Entitic vol] 10.0 fL Normal 6.2-12.0 [facility] Comment on above: Performed By: #### L 501.4021, L300.3900, L100.0100, L500.2500, L300.4310 ####[facility] [address] [place], [address] Platelets (Bld) [#/Vol] 199 10*3/uL Normal 150-450 [facility] Comment on above: Performed By: #### L 501.4021, L300.3900, L100.0100, L500.2500, L300.4310 ####[facility] [address] [place], [address] RBC (Bld) [#/Vol] 4.18 10*6/uL Low 4.2-5.[address] [facility] Comment on above: Performed By: #### L 501.4021, L300.3900, L100.0100, L500.2500, L300.4310 ####[facility] [address] [place], [address] RDW SD 43.4 fl Normal 35.1-43.9 [facility] Comment on above: Performed By: #### L 501.4021, L300.3900, L100.0100, L500.2500, L300.4310 ####[facility] [address] [place], [address] WBC (Bld) [#/Vol] 7.0 10*3/uL Normal 4.4-11.0 [facility] Comment on above: Performed By: #### L 501.4021, L300.3900, L100.0100, L500.2500, L300.4310 ####[facility] [address] [place], [address] Echo Completeon 01-17-2025 Echo Complete Normal [facility] Emergency Department Summary on 01-17-2025 Emergency Department Summary Normal [facility] H AND P Exam - Hospitaliston 01-17-2025 H&P Exam - Hospitalist Normal [facility] L499.0043on 01-17-2025 Trop T High Sen Normal <=14 [facility] Comment on above: Result Comment: REQU EST TO CANCEL ENTERED Performed By: #### L 499.0043 ####[facility] [address] [place], [address] Performed By: #### L 499.0042 ####[facility] [address] [place], [address] L501.4021on 01-17-2025 Trop T High Sen 10 ng/L Normal <=14 [facility] Comment on above: Performed By: #### L 501.4021, L300.3900, L100.0100, L500.2500, L300.4310 ####[facility] [address] [place], [address] Liver Profileon 01-17-2025 Albumin [Mass/Vol] 4.0 g/dL Normal 3.4-4.8 [facility] Comment on above: Order Comment: Comme nts: May add to ED labsComments: may add to ED labs Performed By: #### L 500.3400, L501.2300, L501.5200 ####[facility] [address] [place], [address] ALK PHOS 142 U/L High 35-104 [facility] Comment on above: Order Comment: Comme nts: May add to ED labsComments: may add to ED labs Performed By: #### L 500.3400, L501.2300, L501.5200 ####[facility] [address] [place], [address] ALT [Catalytic activity/Vol] 115 U/L High <=34 [facility] Comment on above: Order Comment: Comme nts: May add to ED labsComments: may add to ED labs Performed By: #### L 500.3400, L501.2300, L501.5200 ####[facility] [address] [place], [address] AST [Catalytic activity/Vol] 116 U/L High <=31 [facility] Comment on above: Order Comment: Comme nts: May add to ED labsComments: may add to ED labs Result Comment: Hemo lysis present, Results??could be affected.?? Performed By: #### L 500.3400, L501.2300, L501.5200 ####[facility] [address] [place], [address] Bilirubin [Mass/Vol] 0.32 mg/dL Normal 0.00-1.30 [facility] Comment on above: Order Comment: Comme nts: May add to ED labsComments: may add to ED labs Performed By: #### L 500.3400, L501.2300, L501.5200 ####[facility] [address] [place], [address] Bilirubin.direct [Mass/Vol] 0.09 mg/dL Normal 0.00-0.30 [facility] Comment on above: Order Comment: Comme nts: May add to ED labsComments: may add to ED labs Result Comment: Hemo lysis present, Results??could be affected.?? Performed By: #### L 500.3400, L501.2300, L501.5200 ####[facility] [address] [place], [address] Globulin (S) [Mass/Vol] 3.3 g/dL Normal 2.2-4.2 [facility] Comment on above: Order Comment: Comme nts: May add to ED labsComments: may add to ED labs Performed By: #### L 500.3400, L501.2300, L501.5200 ####[facility] [address] [place], [address] T PROT 7.2 g/dL Normal 5.9-8.4 [facility] Comment on above: Order Comment: Comme nts: May add to ED labsComments: may add to ED labs Performed By: #### L 500.3400, L501.2300, L501.5200 ####[facility] [address] [place], [address] Magnesiumon 01-17-2025 Magnesium [Mass/Vol] 1.9 mg/dL Normal 1.5-2.2 [facility] Comment on above: Order Comment: Comme nts: May add to ED labsComments: may add to ED labs Performed By: #### L 500.3400, L501.2300, L501.5200 ####[facility] [address] [place], [address] Partial Thromboplast Timeon 01-17-2025 aPTT Coag (Bld) [Time] 25.3 s Normal 24.1-36.2 [facility] Comment on above: Performed By: #### L 501.4021, L300.3900, L100.0100, L500.2500, L300.4310 ####[facility] [address] [place], [address] Phosphoruson 01-17-2025 Phosphate [Mass/Vol] 2.5 mg/dL Low 2.7-4.5 [facility] Comment on above: Order Comment: Comme nts: May add to ED labsComments: may add to ED labs Performed By: #### L 500.3400, L501.2300, L501.5200 ####[facility] [address] [place], [address] Prothrombin Time w/INRon INR Coag (PPP) [Relative time] 1.1 {INR} Normal [facility] Comment on above: Performed By: #### L 501.4021, L300.3900, L100.0100, L500.2500, L300.4310 ####[facility] [address] [place], [address] PT Coag (PPP) [Time] 14.4 s Normal 11.7-14.9 [facility] Comment on above: Performed By: #### L 501.4021, L300.3900, L100.0100, L500.2500, L300.4310 ####[facility] [address] [place], [address] STROKE Brain/Head without Co nton 01-17-2025 STROKE Brain/Head without Cont Normal [facility] STROKE CTA Head AND Neck W/C onon 01-17-2025 STROKE CTA Head AND Neck W/Con Normal [facility] Urine Drug Screen (VISTA)on 01-17-2025 AMPHETAMINES Normal <1000 ng/mL [facility] Comment on above: Result Comment: AMARIS ENT DISCHARGED. Performed By: #### L 505.5000, L501.9100 ####[facility] [address] [place], [address] BARBITIURATES Normal < 200 ng/mL [facility] Comment on above: Result Comment: AMARIS ENT DISCHARGED. Performed By: #### L 505.5000, L501.9100 ####[facility] [address] [place], [address] BENZODIAZIPINE Normal < 200 ng/mL [facility] Comment on above: Result Comment: AMARIS ENT DISCHARGED. Performed By: #### L 505.5000, L501.9100 ####[facility] [address] [place], [address] BUP Ur Drug Scr Normal < 200 ng/mL [facility] Comment on above: Result Comment: AMARIS ENT DISCHARGED. Performed By: #### L 505.5000, L501.9100 ####[facility] [address] [place], [address] COCAINE Normal < 300 ng/mL [facility] Comment on above: Result Comment: AMARIS ENT DISCHARGED. Performed By: #### L 505.5000, L501.9100 ####[facility] [address] [place], [address] Fentanyl Normal [facility] Comment on above: Result Comment: AMARIS ENT DISCHARGED. Performed By: #### L 505.5000, L501.9100 ####[facility] [address] [place], [address] METHADONE Normal < 300 ng/mL [facility] Comment on above: Result Comment: AMARIS ENT DISCHARGED. Performed By: #### L 505.5000, L501.9100 ####[facility] [address] [place], [address] OPIATES Normal < 300 ng/mL [facility] Comment on above: Result Comment: AMARIS ENT DISCHARGED. Performed By: #### L 505.5000, L501.9100 ####[facility] [address] [place], [address] OXYCODONE Normal < 100 ng/mL [facility] Comment on above: Result Comment: AMARIS ENT DISCHARGED. Performed By: #### L 505.5000, L501.9100 ####[facility] [address] [place], [address] PCP Normal < 25 ng/mL [facility] Comment on above: Result Comment: AMARIS ENT DISCHARGED. Performed By: #### L 505.5000, L501.9100 ####[facility] [address] [place], [address] THC Normal < 50 ng/mL [facility] Comment on above: Result Comment: AMARIS ENT DISCHARGED. Performed By: #### L 505.5000, L501.9100 ####[facility] [address] [place], [address] Valproic Acid (Depakene) Lev donny 01-17-2025 VALPROIC ACID 97 ug/mL Normal 50-100 [facility] Comment on above: Result Comment: Valp roic Acid concentrations >100 ug/mL are potentiallytoxic. Performed By: #### L 501.8100 ####[facility] [address] [place], [address] Basic metabolic 2000 panelon 12-29-2024 Anion gap [Moles/Vol] 7 mmol/L - 18 [facility] [employer] Calcium [Mass/Vol] 8.2 mg/dL Low 8.9 - 10. 3 mg/dL [facility] [employer] Chloride [Moles/Vol] 104 mmol/L 98 - 10 7 mmol/L [employer] CO2 [Moles/Vol] 31 mmol/L 22 - 32 mmol/L [facility] [employer] Creatinine [Mass/Vol] 0.53 mg/dL Low 0.60 - 1.30 mg/dL [facility] [employer] GFR/1.73 sq M.predicted among non-blacks MDRD (S/P/Bld) [Vol rate/Area] 106 mL/min/{1.73_m2} - PINF [employer] Comment on above: Calculation based on the Chronic Kidney Disease Epidemiology Collaboration (CKD-EPI) equation refit without adjustment for race. Glucose [Mass/Vol] 128 mg/dL High 70 - 99 mg/dL [facility] Interpretation and review of laboratory results Abnormal [facility] Potassium [Moles/Vol] 3.7 mmol/L 3.6 - 5.1 mmol/L [facility] Sodium [Moles/Vol] 142 mmol/L 136 - 145 mmol/L [facility] Urea nitrogen [Mass/Vol] 12 mg/dL 8 - 20 mg/dL [facility] Urea nitrogen/Creatinine [Mass ratio] 22.6 mg/mg High 12.0 - 20.0 [facility] Anion gap [Moles/Vol] 7 mmol/L Normal 6-18 [facility] Comment on above: Performed By: #### 2 4321-2 #### [facility] [address] [place] [address] Calcium [Mass/Vol] 8.2 mg/dL Low 8.9-10.3 [facility] Comment on above: Performed By: #### 2 4321-2 #### [facility] [address] [place] [address] Chloride [Moles/Vol] 104 mmol/L Normal 98-107 [facility] Comment on above: Performed By: #### 2 4321-2 #### [facility] [address] [place] [address] CO2 [Moles/Vol] 31 mmol/L Normal 22-32 [facility] Comment on above: Performed By: #### 2 4321-2 #### [facility] [address] [place] [address] Creatinine [Mass/Vol] 0.53 mg/dL Low 0.60-1.30 [facility] Comment on above: Performed By: #### 2 4321-2 #### [facility] [address] [place] [address] GFR/1.73 sq M.predicted among non-blacks MDRD (S/P/Bld) [Vol rate/Area] 106 mL/min/{1.73_m2} Normal >=60 [facility] Comment on above: Result Comment: Calc ulation based on the Chronic Kidney Disease Epidemiology Collaboration (CKD-EPI) equation refit without adjustment for race. Performed By: #### 2 4321-2 #### [facility] [address] [place] [address] Glucose [Mass/Vol] 128 mg/dL High 70-99 [facility] Comment on above: Performed By: #### 2 4321-2 #### [facility] [address] [place] [address] Potassium [Moles/Vol] 3.7 mmol/L Normal 3.6-5.1 [facility] Comment on above: Performed By: #### 2 4321-2 #### [facility] [address] [place] [address] Sodium [Moles/Vol] 142 mmol/L Normal 136-145 [facility] Comment on above: Performed By: #### 2 4321-2 #### [facility] [address] [place] [address] Urea nitrogen [Mass/Vol] 12 mg/dL Normal 8-20 [facility] Comment on above: Performed By: #### 2 4321-2 #### [facility] [address] [place] [address] Urea nitrogen/Creatinine [Mass ratio] 22.6 mg/mg High 12.0-20.0 [facility] Comment on above: Performed By: #### 2 4321-2 #### [facility] [address] [place] [address] CBC W Differential panel, me thod unspecified (Bld)Ordered By: Alesha Tse on 12-29-2024 Erythrocyte distribution width (RBC) [Ratio] 13 % 11.0 - 14.8 % [facility] Hematocrit (Bld) [Volume fraction] 37.6 % 34.3 - 47.9 % [facility] Hemoglobin (Bld) [Mass/Vol] 12.6 g/dL 12.0 - 16.0 g/dL [facility] Interpretation and review of laboratory results Abnormal [facility] MCH (RBC) [Entitic mass] 33.8 pg [facility] MCHC (RBC) [Mass/Vol] 33.5 g/dL 30.8 - 35.3 g/dL [facility] MCV (RBC) [Entitic vol] 100.8 fL High [facility] Platelet mean volume (Bld) [Entitic vol] 10.8 fL [facility] Platelets (Bld) [#/Vol] 143 10*3/uL [facility] RBC (Bld) [#/Vol] 3.73 10*6/uL Low [facility] WBC (Bld) [#/Vol] 7.7 10*3/uL [facility] CBC W Differential panel, al thod unspecified (Bld)on 12-29-2024 Atypical Lymphocytes % 2.0 % High <=0.0 [facility] Comment on above: Performed By: #### 6 9742-5 #### [facility] [place] [address] Atypical Lymphocytes Abs Manual Count 0.15 K/mcL High <=0.00 [facility] Comment on above: Performed By: #### 6 9742-5 #### [facility] [address] [place] [address] Lymphocytes (Bld) [#/Vol] 1.86 10*3/uL Normal 1.00-4.80 [facility] Comment on above: Performed By: #### 6 9742-5 #### [facility] [address] [place] [address] Lymphocytes/100 WBC (Bld) 24.2 % Normal 17.9-49.6 [facility] Comment on above: Performed By: #### 6 9742-5 #### [facility] [address] [place] [address] Monocytes (Bld) [#/Vol] 0.85 10*3/uL Normal 0.00-0.90 [facility] Comment on above: Performed By: #### 6 9742-5 #### [facility] [address] [place] [address] Monocytes/100 WBC (Bld) 11.1 % Normal 0.0-12.0 [facility] Comment on above: Performed By: #### 6 9742-5 #### [facility] [address] [place] [address] Myelocytes Absolute 0.08 K/mcL High <=0.00 [facility] Comment on above: Performed By: #### 6 9742-5 #### [facility] [address] [place] [id number] Myelocytes/100 WBC (Bld) 1.0 % High <=0.0 [facility] Comment on above: Performed By: #### 6 9742-5 #### [facility] [address] [place] [address] Neutrophils Absolute 4.74 K/mcL Normal 1.80-7.70 [facility] Comment on above: Performed By: #### 6 9742-5 #### [facility] [address] [place] [address] Neutrophils/100 WBC (Bld) 61.6 % Normal 38.1-75.5 [facility] Comment on above: Performed By: #### 6 9742-5 #### [facility] [address] [place] [id number] Total Counted 100 Normal [facility] Comment on above: Performed By: #### 6 9742-5 #### [facility] [address] [place] [address] Vacuolated Neutrophils Present Present Abnormal (none) [facility] Comment on above: Performed By: #### 6 9742-5 #### [facility] ([facility] [address] [place] [address] CBC W Ordered Manual Differe ntial panel (Bld)on 12-29-2024 Atypical Lymphocytes Abs Manual Count 0.15 High NINF [facility] Cells Counted Total (Bld) [#] 100 {cells} [facility] Interpretation and review of laboratory results Abnormal [facility] Lymphocytes (Bld) [#/Vol] 1.86 10*3/uL [facility] Lymphocytes/100 WBC (Bld) 24.2 % 17.9 - [...] [facility] Lactate (Bld) [Mass/Vol]on 0 12-29-2024 Interpretation and review of laboratory results Abnormal [facility] Lactate [Moles/Vol] 2.5 mmol/L High 0.5 - 2. 0 mmol/L [facility] Lactate [Moles/Vol] 2.5 mmol/L High 0.5-2.0 [facility] Comment on above: Performed By: #### 5 9032-3 #### [facility] [address] [place] [address] Discharge Instructionon 12-12 Discharge Instruction Normal [facility] Basic Metabolic Profile (BMP )on 12-26-2024 BUN/CRE 15.1 RATIO Normal 10-20 [facility] Comment on above: Performed By: #### L 100.0500, L500.2500 ####[facility] [address] [place], [address] Calcium [Mass/Vol] 8.4 mg/dL Normal 7.6-11.0 [facility] Comment on above: Performed By: #### L 100.0500, L500.2500 ####[facility] [address] [place], [address] Chloride [Moles/Vol] 104 mmol/L Normal 98-108 [facility] Comment on above: Performed By: #### L 100.0500, L500.2500 ####[facility] [address] [place], [address] CO2 [Moles/Vol] 28.3 mmol/L Normal 21.0-32.0 [facility] Comment on above: Performed By: #### L 100.0500, L500.2500 ####[facility] [address] [place], [address] Creatinine [Mass/Vol] 0.56 mg/dL Low 0.70-1.20 [facility] Comment on above: Performed By: #### L 100.0500, L500.2500 ####[facility] [address] [place], [address] ECRCL 115.56 ml/min Normal 50-250 [facility] Comment on above: Performed By: #### L 100.0500, L500.2500 ####[facility] [address] [place], [address] GAP 9 Normal 5-15 [facility] Comment on above: Performed By: #### L 100.0500, L500.2500 ####[facility] [address] [place], [address] GFR/1.73 sq M.predicted among non-blacks MDRD (S/P/Bld) [Vol rate/Area] 104 mL/min/{1.73_m2} Normal >60 [facility] Comment on above: Result Comment: mL/m in/1.73m2 CKD-EPI Creatinine Equation (2020) Performed By: #### L 100.0500, L500.2500 ####[facility] [address] [place], [address] Glucose [Mass/Vol] 103 mg/dL High 70-99 [facility] Comment on above: Performed By: #### L 100.0500, L500.2500 ####[facility] [address] [place], [address] Potassium [Moles/Vol] 3.6 mmol/L Normal 3.3-5.1 [facility] Comment on above: Performed By: #### L 100.0500, L500.2500 ####[facility] [address] [place], [address] Sodium [Moles/Vol] 142 mmol/L Normal 133-145 [facility] Comment on above: Performed By: #### L 100.0500, L500.2500 ####[facility] [address] [place], [address] Urea nitrogen [Mass/Vol] 8 mg/dL Normal 4-19 [facility] Comment on above: Performed By: #### L 100.0500, L500.2500 ####[facility] [address] [place], [address] CBC-Complete Blood Cnt No Di ffon 12-26-2024 Erythrocyte distribution width (RBC) [Ratio] 13.2 % Normal 11.6-14.6 [facility] Comment on above: Performed By: #### L 100.0500, L500.2500 ####[facility] [address] [place], [address] Hematocrit (Bld) [Volume fraction] 36.8 % Low 37-47 [facility] Comment on above: Performed By: #### L 100.0500, L500.2500 ####[facility] [address] [place], [address] Hemoglobin (Bld) [Mass/Vol] 12.3 g/dL Normal 12.0-15.0 [facility] Comment on above: Performed By: #### L 100.0500, L500.2500 ####[facility] [address] [place], [address] MCH (RBC) [Entitic mass] 33.6 pg High 27.0-32.0 [facility] Comment on above: Performed By: #### L 100.0500, L500.2500 ####[facility] [address] [place], [address] MCHC (RBC) [Mass/Vol] 33.4 g/dL Normal 32-36 [facility] Comment on above: Performed By: #### L 100.0500, L500.2500 ####[facility] [address] [place], [address] MCV (RBC) [Entitic vol] 100.5 fL High 81-99 [facility] Comment on above: Performed By: #### L 100.0500, L500.2500 ####[facility] [address] [place], [address] Platelet mean volume (Bld) [Entitic vol] 10.4 fL Normal 6.2-12.0 [facility] Comment on above: Performed By: #### L 100.0500, L500.2500 ####[facility] [address] [place], [address] Platelets (Bld) [#/Vol] 147 10*3/uL Low 150-450 [facility] Comment on above: Performed By: #### L 100.0500, L500.2500 ####[facility] [address] [place], [address] RBC (Bld) [#/Vol] 3.66 10*6/uL Low 4.2-5.[address] [facility] Comment on above: Performed By: #### L 100.0500, L500.2500 ####[facility] [address] [place], [address] RDW SD 48.6 fl High 35.1-43.9 [facility] Comment on above: Performed By: #### L 100.0500, L500.2500 ####[facility] [address] [place], [address] WBC (Bld) [#/Vol] 8.4 10*3/uL Normal 4.4-11.0 [facility] Comment on above: Performed By: #### L 100.0500, L500.2500 ####[facility] [address] [place], [address] CBC-Complete Blood Cnt No Di ffon 12-23-2024 Erythrocyte distribution width (RBC) [Ratio] 13.5 % Normal 11.6-14.6 [facility] Comment on above: Performed By: #### L 500.4050, L100.0500 ####[facility] [address] [place], [address] Hematocrit (Bld) [Volume fraction] 37.1 % Normal 37-47 [facility] Comment on above: Performed By: #### L 500.4050, L100.0500 ####[facility] [address] [place], [address] Hemoglobin (Bld) [Mass/Vol] 12.4 g/dL Normal 12.0-15.0 [facility] Comment on above: Performed By: #### L 500.4050, L100.0500 ####[facility] [address] [place], [address] MCH (RBC) [Entitic mass] 33.7 pg High 27.0-32.0 [facility] Comment on above: Performed By: #### L 500.4050, L100.0500 ####[facility] [address] [place], [address] MCHC (RBC) [Mass/Vol] 33.4 g/dL Normal 32-36 [facility] Comment on above: Performed By: #### L 500.4050, L100.0500 ####[facility] [address] [place], [address] MCV (RBC) [Entitic vol] 100.8 fL High 81-99 [facility] Comment on above: Performed By: #### L 500.4050, L100.0500 ####[facility] [address] [place], [address] Platelet mean volume (Bld) [Entitic vol] 10.0 fL Normal 6.2-12.0 [facility] Comment on above: Performed By: #### L 500.4050, L100.0500 ####[facility] [address] [place], [address] Platelets (Bld) [#/Vol] 191 10*3/uL Normal 150-450 [facility] Comment on above: Performed By: #### L 500.4050, L100.0500 ####[facility] [address] [place], [address] RBC (Bld) [#/Vol] 3.68 10*6/uL Low 4.2-5.[address] [facility] Comment on above: Performed By: #### L 500.4050, L100.0500 ####[facility] [address] [place], [address] RDW SD 50.0 fl High 35.1-43.9 [facility] Comment on above: Performed By: #### L 500.4050, L100.0500 ####[facility] [address] [place], [address] WBC (Bld) [#/Vol] 7.0 10*3/uL Normal 4.4-11.0 [facility] Comment on above: Performed By: #### L 500.4050, L100.0500 ####[facility] [address] [place], [address] Comprehensive Metabolic Prof ilon 12-23-2024 Albumin [Mass/Vol] 3.4 g/dL Normal 3.4-4.8 [facility] Comment on above: Performed By: #### L 500.4050, L100.0500 ####[facility] [address] [place], [address] Albumin/Globulin [Mass ratio] 1.5 {ratio} Normal 0.9-2.4 [facility] Comment on above: Performed By: #### L 500.4050, L100.0500 ####[facility] [address] [place], [address] ALK PHOS 76 U/L Normal 35-104 [facility] Comment on above: Performed By: #### L 500.4050, L100.0500 ####[facility] [address] [place], [address] ALT [Catalytic activity/Vol] 26 U/L Normal <=34 [facility] Comment on above: Performed By: #### L 500.4050, L100.0500 ####[facility] [address] [place], [address] AST [Catalytic activity/Vol] 26 U/L Normal <=31 [facility] Comment on above: Performed By: #### L 500.4050, L100.0500 ####[facility] [address] [place], [address] Bilirubin [Mass/Vol] 0.61 mg/dL Normal 0.00-1.30 [facility] Comment on above: Performed By: #### L 500.4050, L100.0500 ####[facility] [address] [place], [address] BUN/CRE 21.4 RATIO High 10-20 [facility] Comment on above: Performed By: #### L 500.4050, L100.0500 ####[facility] [address] [place], [address] Calcium [Mass/Vol] 8.6 mg/dL Normal 7.6-11.0 [facility] Comment on above: Performed By: #### L 500.4050, L100.0500 ####[facility] [address] [place], [address] Chloride [Moles/Vol] 106 mmol/L Normal 98-108 [facility] Comment on above: Performed By: #### L 500.4050, L100.0500 ####[facility] [address] [place], [address] CO2 [Moles/Vol] 25.4 mmol/L Normal 21.0-32.0 [facility] Comment on above: Performed By: #### L 500.4050, L100.0500 ####[facility] [address] [place], [address] Creatinine [Mass/Vol] 0.60 mg/dL Low 0.70-1.20 [facility] Comment on above: Performed By: #### L 500.4050, L100.0500 ####[facility] [address] [place], [address] ECRCL 107.86 ml/min Normal 50-250 [facility] Comment on above: Performed By: #### L 500.4050, L100.0500 ####[facility] [address] [place], [address] GAP 10 Normal 5-15 [facility] Comment on above: Performed By: #### L 500.4050, L100.0500 ####[facility] [address] [place], [address] GFR/1.73 sq M.predicted among non-blacks MDRD (S/P/Bld) [Vol rate/Area] 103 mL/min/{1.73_m2} Normal >60 [facility] Comment on above: Result Comment: mL/m in/1.73m2 CKD-EPI Creatinine Equation (2020) Performed By: #### L 500.4050, L100.0500 ####[facility] [address] [place], [address] Globulin (S) [Mass/Vol] 2.3 g/dL Normal 2.2-4.2 [facility] Comment on above: Performed By: #### L 500.4050, L100.0500 ####[facility] [address] [place], [address] Glucose [Mass/Vol] 111 mg/dL High 70-99 [facility] Comment on above: Performed By: #### L 500.4050, L100.0500 ####[facility] [address] [place], [address] Potassium [Moles/Vol] 3.9 mmol/L Normal 3.3-5.1 [facility] Comment on above: Performed By: #### L 500.4050, L100.0500 ####[facility] [address], [address] Sodium [Moles/Vol] 141 mmol/L Normal 133-145 [facility] Comment on above: Performed By: #### L 500.4050, L100.0500 ####[facility] [address] [place], [address] T PROT 5.7 g/dL Low 5.9-8.4 [facility] Comment on above: Performed By: #### L 500.4050, L100.0500 ####[facility] [address] [place], [address] Urea nitrogen [Mass/Vol] 13 mg/dL Normal 4-19 [facility] Comment on above: Performed By: #### L 500.4050, L100.0500 ####[facility] [address] [place], [address] 12 Lead EKGon 12-22-2024 12 Lead EKG Normal [facility] Alcohol, Blood (Medical)-Ser umon 12-22-2024 SERUM ETOH < 10.1 Normal <=10.0 [facility] Comment on above: Result Comment: This test is for medical purposes only. The legaldefinition of intoxication varies according to local law. Performed By: #### L 505.5000, L500.4050, L501.9100, L501.5200, L100.0100 ####[facility] [address] [place], [address] CBC W/Diff, Automatedon - Absolute Lymph 2.72 X10 3/uL Normal 0.83-4.51 [facility] Comment on above: Performed By: #### L 505.5000, L500.4050, L501.9100, L501.5200, L100.0100 ####[facility] [address] [place], [address] Absolute Neut 8.0 X10 3/uL High 2.0-7.7 [facility] Comment on above: Performed By: #### L 505.5000, L500.4050, L501.9100, L501.5200, L100.0100 ####[facility] [address] [place], [address] Basophils/100 WBC (Bld) 0.7 % Normal 0-1 [facility] Comment on above: Performed By: #### L 505.5000, L500.4050, L501.9100, L501.5200, L100.0100 ####[facility] [address] [place], [address] Eosinophils/100 WBC (Bld) 0.9 % Normal 0-5 [facility] Comment on above: Performed By: #### L 505.5000, L500.4050, L501.9100, L501.5200, L100.0100 ####[facility] [address] [place], [address] Erythrocyte distribution width (RBC) [Ratio] 13.2 % Normal 11.6-14.6 [facility] Comment on above: Performed By: #### L 505.5000, L500.4050, L501.9100, L501.5200, L100.0100 ####[facility] [address] [place], [address] Hematocrit (Bld) [Volume fraction] 40.0 % Normal 37-47 [facility] Comment on above: Performed By: #### L 505.5000, L500.4050, L501.9100, L501.5200, L100.0100 ####[facility] [address] [place], [address] Hemoglobin (Bld) [Mass/Vol] 13.9 g/dL Normal 12.0-15.0 [facility] Comment on above: Performed By: #### L 505.5000, L500.4050, L501.9100, L501.5200, L100.0100 ####[facility] [address] [place], [address] IG% 0.600 Normal 0.0-0.9 [facility] Comment on above: Result Comment: IG% - Immature Granulocytes (promyelocytes, myelocytes andmetamyelocytes) > 1% indicates that a LEFT SHIFT is Present. Performed By: #### L 505.5000, L500.4050, L501.9100, L501.5200, L100.0100 ####[facility] [address] [place], [address] Lymphocytes/100 WBC (Bld) 22.0 % Normal 19-41 [facility] Comment on above: Performed By: #### L 505.5000, L500.4050, L501.9100, L501.5200, L100.0100 ####[facility] [address] [place], [address] MCH (RBC) [Entitic mass] 33.7 pg High 27.0-32.0 [facility] Comment on above: Performed By: #### L 505.5000, L500.4050, L501.9100, L501.5200, L100.0100 ####[facility] [address] [place], [address] MCHC (RBC) [Mass/Vol] 34.8 g/dL Normal 32-36 [facility] Comment on above: Performed By: #### L 505.5000, L500.4050, L501.9100, L501.5200, L100.0100 ####[facility] [address] [place], [address] MCV (RBC) [Entitic vol] 96.9 fL Normal 81-99 [facility] Comment on above: Performed By: #### L 505.5000, L500.4050, L501.9100, L501.5200, L100.0100 ####[facility] [address] [place], [address] Monocytes/100 WBC (Bld) 11.1 % High 0-10 [facility] Comment on above: Performed By: #### L 505.5000, L500.4050, L501.9100, L501.5200, L100.0100 ####[facility] [address] [place], [address] Neutrophils/100 WBC (Bld) 64.7 % Normal 47-70 [facility] Comment on above: Performed By: #### L 505.5000, L500.4050, L501.9100, L501.5200, L100.0100 ####[facility] [address] [place], [address] Nucleated RBC (Bld) [#/Vol] 0 10*3/uL Normal 0-5 [facility] Comment on above: Performed By: #### L 505.5000, L500.4050, L501.9100, L501.5200, L100.0100 ####[facility] [address] [place], [address] Platelet mean volume (Bld) [Entitic vol] 10.2 fL Normal 6.2-12.0 [facility] Comment on above: Performed By: #### L 505.5000, L500.4050, L501.9100, L501.5200, L100.0100 ####[facility] [address] [place], [address] Platelets (Bld) [#/Vol] 239 10*3/uL Normal 150-450 [facility] Comment on above: Performed By: #### L 505.5000, L500.4050, L501.9100, L501.5200, L100.0100 ####[facility] [address] [place], [address] RBC (Bld) [#/Vol] 4.13 10*6/uL Low 4.2-5.[address] [facility] Comment on above: Performed By: #### L 505.5000, L500.4050, L501.9100, L501.5200, L100.0100 ####[facility] [address] [place], [address] RDW SD 47.1 fl High 35.1-43.9 [facility] Comment on above: Performed By: #### L 505.5000, L500.4050, L501.9100, L501.5200, L100.0100 ####[facility] [address] [place], [address] WBC (Bld) [#/Vol] 12.4 10*3/uL High 4.4-11.[address] [facility] Comment on above: Performed By: #### L 505.5000, L500.4050, L501.9100, L501.5200, L100.0100 ####[facility] [address] [place], [address] Comprehensive Metabolic Prof [facility] 12-22-2024 Albumin [Mass/Vol] 4.2 g/dL Normal 3.4-4.8 [facility] Comment on above: Performed By: #### L 505.5000, L500.4050, L501.9100, L501.5200, L100.0100 ####[facility] [address] [place], [address] Albumin/Globulin [Mass ratio] 1.5 {ratio} Normal 0.9-2.4 [facility] Comment on above: Performed By: #### L 505.5000, L500.4050, L501.9100, L501.5200, L100.0100 ####[facility] [address] [place], [address] ALK PHOS 94 U/L Normal 35-104 [facility] Comment on above: Performed By: #### L 505.5000, L500.4050, L501.9100, L501.5200, L100.0100 ####[facility] [address] [place], [address] ALT [Catalytic activity/Vol] 38 U/L High <=34 [facility] Comment on above: Performed By: #### L 505.5000, L500.4050, L501.9100, L501.5200, L100.0100 ####[facility] [address] [place], [address] AST [Catalytic activity/Vol] 40 U/L High <=31 [facility] Comment on above: Performed By: #### L 505.5000, L500.4050, L501.9100, L501.5200, L100.0100 ####[facility] [address] [place], [address] Bilirubin [Mass/Vol] 0.59 mg/dL Normal 0.00-1.30 [facility] Comment on above: Performed By: #### L 505.5000, L500.4050, L501.9100, L501.5200, L100.0100 ####[facility] [address] [place], [address] BUN/CRE 18.7 RATIO Normal 10-20 [facility] Comment on above: Performed By: #### L 505.5000, L500.4050, L501.9100, L501.5200, L100.0100 ####[facility] [address] [place], [address] Calcium [Mass/Vol] 9.8 mg/dL Normal 7.6-11.0 [facility] Comment on above: Performed By: #### L 505.5000, L500.4050, L501.9100, L501.5200, L100.0100 ####[facility] [address] [place], [address] Chloride [Moles/Vol] 100 mmol/L Normal 98-108 [facility] Comment on above: Performed By: #### L 505.5000, L500.4050, L501.9100, L501.5200, L100.0100 ####[facility] [address] [place], [address] CO2 [Moles/Vol] 23.8 mmol/L Normal 21.0-32.0 [facility] Comment on above: Performed By: #### L 505.5000, L500.4050, L501.9100, L501.5200, L100.0100 ####[facility] [address] [place], [address] Creatinine [Mass/Vol] 0.63 mg/dL Low 0.70-1.20 [facility] Comment on above: Performed By: #### L 505.5000, L500.4050, L501.9100, L501.5200, L100.0100 ####[facility] [address] [place], [address] ECRCL 102.72 ml/min Normal 50-250 [facility] Comment on above: Performed By: #### L 505.5000, L500.4050, L501.9100, L501.5200, L100.0100 ####[facility] [address] [place], [address] GAP 16 High 5-15 [facility] Comment on above: Performed By: #### L 505.5000, L500.4050, L501.9100, L501.5200, L100.0100 ####[facility] [address] [place], [address] GFR/1.73 sq M.predicted among non-blacks MDRD (S/P/Bld) [Vol rate/Area] 101 mL/min/{1.73_m2} Normal >60 [facility] Comment on above: Result Comment: mL/m in/1.73m2 CKD-EPI Creatinine Equation (2020) Performed By: #### L 505.5000, L500.4050, L501.9100, L501.5200, L100.0100 ####[facility] [address] [place], [address] Globulin (S) [Mass/Vol] 2.7 g/dL Normal 2.2-4.2 [facility] Comment on above: Performed By: #### L 505.5000, L500.4050, L501.9100, L501.5200, L100.0100 ####[facility] [address] [place], [address] Glucose [Mass/Vol] 140 mg/dL High 70-99 [facility] Comment on above: Performed By: #### L 505.5000, L500.4050, L501.9100, L501.5200, L100.0100 ####[facility] [address] [place], [address] Potassium [Moles/Vol] 3.4 mmol/L Normal 3.3-5.1 [facility] Comment on above: Performed By: #### L 505.5000, L500.4050, L501.9100, L501.5200, L100.0100 ####[facility] [address] [place], [address] Sodium [Moles/Vol] 140 mmol/L Normal 133-145 [facility] Comment on above: Performed By: #### L 505.5000, L500.4050, L501.9100, L501.5200, L100.0100 ####[facility] [address] [place], [address] T PROT 6.9 g/dL Normal 5.9-8.4 [facility] Comment on above: Performed By: #### L 505.5000, L500.4050, L501.9100, L501.5200, L100.0100 ####[facility] [address] [place], [address] Urea nitrogen [Mass/Vol] 12 mg/dL Normal 4-19 [facility] Comment on above: Performed By: #### L 505.5000, L500.4050, L501.9100, L501.5200, L100.0100 ####[facility] [address] [place], [address] Emergency Department Summary on 12-22-2024 Emergency Department Summary Normal [facility] H AND P Exam - [facility] 12-22-2024 H&P Exam - Hospitalist Normal [facility] Magnesiumon 12-22-2024 Magnesium [Mass/Vol] 1.5 mg/dL Normal 1.5-2.2 [facility] Comment on above: Performed By: #### L 501.5200 ####[facility] [address] [place], [address] Magnesium [Mass/Vol] 1.6 mg/dL Normal 1.5-2.2 [facility] Comment on above: Performed By: #### L 505.5000, L500.4050, L501.9100, L501.5200, L100.0100 ####[facility] [address] [place], [address] Urinalysis, Completeon 12-22 EPI,SQUAMOUS 0-5 SEEN Normal 5-10 [facility] Comment on above: Order Comment: CLEAN CATCH Performed By: #### L 400.0001 ####[facility] [address] [place], [address] EPI,TRANSITION 0-5 SEEN Normal 0-5 [facility] Comment on above: Order Comment: CLEAN CATCH Performed By: #### L 400.0001 ####[facility] [address] [place], [address] RBC 5-10 SEEN Normal 0-5 [facility] Comment on above: Order Comment: CLEAN CATCH Performed By: #### L 400.0001 ####[facility] [address] [place], [address] WBC 10-25 SEEN Normal 0-5 [facility] Comment on above: Order Comment: CLEAN CATCH Performed By: #### L 400.0001 ####[facility] [address] [place], [address] BACTERIA 0 SEEN Normal None Seen [facility] Comment on above: Order Comment: CLEAN CATCH Performed By: #### L 400.0001 ####[facility] [address] [place], [address] Mucus Ql (Urine sed) 0 SEEN Normal [facility] Comment on above: Order Comment: CLEAN CATCH Performed By: #### L 400.0001 ####[facility] [address] [place], [address] Urine Drug Screen (VISTA)on 12-22-2024 AMPHETAMINES Negative Normal <1000 ng/mL [facility] Comment on above: Performed By: #### L 505.5000, L500.4050, L501.9100, L501.5200, L100.0100 ####[facility] [address] [place], [address] BARBITIURATES Negative Normal < 200 ng/mL [facility] Comment on above: Performed By: #### L 505.5000, L500.4050, L501.9100, L501.5200, L100.0100 ####[facility] [address] [place], [address] BENZODIAZIPINE Negative Normal < 200 ng/mL [facility] Comment on above: Performed By: #### L 505.5000, L500.4050, L501.9100, L501.5200, L100.0100 ####[facility] [address] [place], [address] BUP Ur Drug Scr Positive Normal < 200 ng/mL [facility] Comment on above: Result Comment: If c onfirmation testing is needed, a separate order will berequired to send out testing to the reference laboratory. Performed By: #### L 505.5000, L500.4050, L501.9100, L501.5200, L100.0100 ####[facility] [address] [facility] [address] COCAINE Negative Normal < 300 ng/mL [facility] Comment on above: Performed By: #### L 505.5000, L500.4050, L501.9100, L501.5200, L100.0100 ####[facility] [address] [place] [address] Fentanyl Negative Normal [facility] Comment on above: Performed By: #### L 505.5000, L500.4050, L501.9100, L501.5200, L100.0100 ####[facility] [address] [place] [address] METHADONE Negative Normal < 300 ng/mL [facility] Comment on above: Performed By: #### L 505.5000, L500.4050, L501.9100, L501.5200, L100.0100 ####[facility] [address] [place] [address] OPIATES Negative Normal < 300 ng/mL [facility] Comment on above: Performed By: #### L 505.5000, L500.4050, L501.9100, L501.5200, L100.0100 ####[facility] [address] [place] [address] OXYCODONE Negative Normal < 100 ng/mL [facility] Comment on above: Performed By: #### L 505.5000, L500.4050, L501.9100, L501.5200, L100.0100 ####[facility] [address] [place] [address] PCP Negative Normal < 25 ng/mL [facility] Comment on above: Performed By: #### L 505.5000, L500.4050, L501.9100, L501.5200, L100.0100 ####[facility] [address] [place], [address] THC Negative Normal < 50 ng/mL [facility] Comment on above: Performed By: #### L 505.5000, L500.4050, L501.9100, L501.5200, L100.0100 ####[facility] [address] [place], [address] Valproic Acid (Depakene) Lev donny 12-22-2024 VALPROIC ACID 91 ug/mL Normal 50-100 [facility] Comment on above: Result Comment: Valp roic Acid concentrations >100 ug/mL are potentiallytoxic. Performed By: #### L 501.8100 ####[facility] [address] [place], [address] Venous Duplex US, Unilateral on 07-25-2024 Venous Duplex US, Unilateral Normal [facility] Emergency Department Summary on 07-24-2024 Emergency Department Summary Normal [facility] Urine Cultureon 07-22-2024 URC Mixed Gram Pos Gram Neg Org [place] Count 25,000-50,000 MIXC Mixed contaminants. Submit a new specimen if indicated. Normal [facility] Comment on above: Performed By: #### L 400.0001, M100.2200 ####[facility] [address] [place], [address] Urinalysis, Completeon 07-21 BACTERIA 1+ /hpf Normal None Seen [facility] Comment on above: Order Comment: CLEAN CATCH Performed By: #### L 400.0001 ####[facility] [address] [place], [address] EPI,SQUAMOUS 0-5 SEEN Normal 5-10 [facility] Comment on above: Order Comment: CLEAN CATCH Performed By: #### L 400.0001 ####[facility] [address] [place], [address] RBC 10-25 SEEN Normal 0-5 [facility] Comment on above: Order Comment: CLEAN CATCH Performed By: #### L 400.0001 ####[facility] [address] [place], [address] WBC 25-50 SEEN Normal 0-5 [facility] Comment on above: Order Comment: CLEAN CATCH Performed By: #### L 400.0001 ####[facility] [address] [place], [address] Mucus Ql (Urine sed) 0 SEEN Normal [facility] Comment on above: Order Comment: CLEAN CATCH Performed By: #### L 400.0001 ####[facility] [address] [facility] [address] Urinalysis, Completeon 07-20 BACTERIA Normal None Seen [facility] Comment on above: Order Comment: CLEAN CATCH Result Comment: DUPL ICATE ORDER Performed By: #### L 400.0001 ####[facility] [address] [place], [address] BILIRUBIN URINE Normal Negative [facility] Comment on above: Order Comment: CLEAN CATCH Result Comment: DUPL ICATE ORDER Performed By: #### L 400.0001 ####[facility] [address] [place], [address] Clarity (U) Normal Clear [facility] Comment on above: Order Comment: CLEAN CATCH Result Comment: DUPL ICATE ORDER Performed By: #### L 400.0001 ####[facility] [address] [place], [address] Color (U) Normal Yellow [facility] Comment on above: Order Comment: CLEAN CATCH Result Comment: DUPL ICATE ORDER Performed By: #### L 400.0001 ####[facility] [address] [place], [address] EPI,SQUAMOUS Normal 5-10 [facility] Comment on above: Order Comment: CLEAN CATCH Result Comment: DUPL ICATE ORDER Performed By: #### L 400.0001 ####[facility] [address] [place], [address] GLUCOSE, UR Normal Normal [facility] Comment on above: Order Comment: CLEAN CATCH Result Comment: DUPL ICATE ORDER Performed By: #### L 400.0001 ####[facility] [address] [place], [address] KETONE UR Normal Negative [facility] Comment on above: Order Comment: CLEAN CATCH Result Comment: DUPL ICATE ORDER Performed By: #### L 400.0001 ####[facility] [address] [place], [address] LEUK ESTERASE Normal Negative [facility] Comment on above: Order Comment: CLEAN CATCH Result Comment: DUPL ICATE ORDER Performed By: #### L 400.0001 ####[facility] [address] [place], [address] Mucus Ql (Urine sed) Normal [facility] Comment on above: Order Comment: CLEAN CATCH Result Comment: DUPL ICATE ORDER Performed By: #### L 400.0001 ####[facility] [address] [place], [address] Nitrite Ql (U) Normal Negative [facility] Comment on above: Order Comment: CLEAN CATCH Result Comment: DUPL ICATE ORDER Performed By: #### L 400.0001 ####[facility] [address] [place], [address] OCCULT BLOOD-UR Normal Negative [facility] Comment on above: Order Comment: CLEAN CATCH Result Comment: DUPL ICATE ORDER Performed By: #### L 400.0001 ####[facility] [address] [place], [address] pH UR Normal 5.0 - 8.0 [facility] Comment on above: Order Comment: CLEAN CATCH Result Comment: DUPL ICATE ORDER Performed By: #### L 400.0001 ####[facility] [address] [place], [address] PROT DIPSTX Normal Negative [facility] Comment on above: Order Comment: CLEAN CATCH Result Comment: DUPL ICATE ORDER Performed By: #### L 400.0001 ####[facility] [address] [place], [address] RBC Normal 0-5 [facility] Comment on above: Order Comment: CLEAN CATCH Result Comment: DUPL ICATE ORDER Performed By: #### L 400.0001 ####[facility] [address] [place], [address] SP.GR. DIPSTX Normal 1.002-1.030 [facility] Comment on above: Order Comment: CLEAN CATCH Result Comment: DUPL ICATE ORDER Performed By: #### L 400.0001 ####[facility] [address] [place], [address] UR Preservative Normal [facility] Comment on above: Order Comment: CLEAN CATCH Result Comment: DUPL ICATE ORDER Performed By: #### L 400.0001 ####[facility] [address] [place], [address] UROBILI Normal Normal [facility] Comment on above: Order Comment: CLEAN CATCH Result Comment: DUPL ICATE ORDER Performed By: #### L 400.0001 ####[facility] [address] [place], [address] WBC Normal 0-5 [facility] Comment on above: Order Comment: CLEAN CATCH Result Comment: DUPL ICATE ORDER Performed By: #### L 400.0001 ####[facility] [address] [place], [address] BACTERIA Normal None Seen [facility] Comment on above: Order Comment: CLEAN CATCH Result Comment: @DUP LICATE Performed By: #### L 400.0001, .2199 ####[facility] [address] [place], [address] BILIRUBIN URINE Normal Negative [facility] Comment on above: Order Comment: CLEAN CATCH Result Comment: @DUP LICATE Performed By: #### L 400.0001, .2199 ####[facility] [address] [place], [address] Clarity (U) Normal Clear [facility] Comment on above: Order Comment: CLEAN CATCH Result Comment: @DUP LICATE Performed By: #### L 400.0001, ####[facility] [address] [place], [address] Color (U) Normal Yellow [facility] Comment on above: Order Comment: CLEAN CATCH Result Comment: @DUP LICATE Performed By: #### L 400.0001, ####[facility] [address] [place], [address] EPI,SQUAMOUS Normal 5-10 [facility] Comment on above: Order Comment: CLEAN CATCH Result Comment: @DUP LICATE Performed By: #### L 400.0001, ####[facility] [address] [place], [address] GLUCOSE, UR Normal Normal [facility] Comment on above: Order Comment: CLEAN CATCH Result Comment: @DUP LICATE Performed By: #### L 400.0001, .2199 ####[facility] [address] [place], [address] KETONE UR Normal Negative [facility] Comment on above: Order Comment: CLEAN CATCH Result Comment: @DUP LICATE Performed By: #### L 400.0001, M1.2199 ####[facility] [address] [place], [address] LEUK ESTERASE Normal Negative [facility] Comment on above: Order Comment: CLEAN CATCH Result Comment: @DUP LICATE Performed By: #### L 400.0001, ####[facility] [address] [place], [address] Mucus Ql (Urine sed) Normal [facility] Comment on above: Order Comment: CLEAN CATCH Result Comment: @DUP LICATE Performed By: #### L 400.0001, ####[facility] [address] [place], [address] Nitrite Ql (U) Normal Negative [facility] Comment on above: Order Comment: CLEAN CATCH Result Comment: @DUP LICATE Performed By: #### L 400.0001, ####[facility] [address] [place], [address] OCCULT BLOOD-UR Normal Negative [facility] Comment on above: Order Comment: CLEAN CATCH Result Comment: @DUP LICATE Performed By: #### L 400.0001, ####[facility] [address] [place], [address] pH UR Normal 5.0 - 8.0 [facility] Comment on above: Order Comment: CLEAN CATCH Result Comment: @DUP LICATE Performed By: #### L 400.0001, ####[facility] [address] [place], [address] PROT DIPSTX Normal Negative [facility] Comment on above: Order Comment: CLEAN CATCH Result Comment: @DUP LICATE Performed By: #### L 400.0001, ####[facility] [address] [place], [address] RBC Normal 0-5 [facility] Comment on above: Order Comment: CLEAN CATCH Result Comment: @DUP LICATE Performed By: #### L 400.0001, ####[facility] [address] [place], [address] SP.GR. DIPSTX Normal 1.002-1.030 [facility] Comment on above: Order Comment: CLEAN CATCH Result Comment: @DUP LICATE Performed By: #### L 400.0001, M100.2200 ####[facility] [address] [place], [address] UR Preservative Normal [facility] Comment on above: Order Comment: CLEAN CATCH Result Comment: @DUP LICATE Performed By: #### L 400.0001, M1.2199 ####[facility] [address] [place], [address] UROBILI Normal Normal [facility] Comment on above: Order Comment: CLEAN CATCH Result Comment: @DUP LICATE Performed By: #### L 400.0001, .2199 ####[facility] [address] [place], [address] WBC Normal 0-5 [facility] Comment on above: Order Comment: CLEAN CATCH Result Comment: @DUP LICATE Performed By: #### L 400.0001, ####[facility] [address] [place], [address] Alcohol, Blood (Medical)-Ser umon 07-17-2024 SERUM ETOH 180.0 mg/dL Normal [facility] Comment on above: Result Comment: The serum:whole blood ethanol ratio is approximately 1.14and varies slightly with hematocrit.Medical Alcohol reference interval and critical value innon-tolerant individuals; 50 - 100 Impairment 100 Intoxication 100 - 250 Severe Poisoning 250 - 400 Deep/possible fatal coma Performed By: #### L 501.9100, L505.5000 ####[facility] [address] [place], [address] CBC W/Diff, Automatedon Absolute Lymph 2.38 X10 3/uL Normal 0.83-4.51 [facility] Comment on above: Performed By: #### L 100.0100, L500.4050 ####[facility] [address] [place], [address] Absolute Neut 4.0 X10 3/uL Normal 2.0-7.7 [facility] Comment on above: Performed By: #### L 100.0100, L500.4050 ####[facility] [address] [place], [address] Basophils/100 WBC (Bld) 1.5 % High 0-1 [facility] Comment on above: Performed By: #### L 100.0100, L500.4050 ####[facility] [address] [place], [address] Eosinophils/100 WBC (Bld) 2.0 % Normal 0-5 [facility] Comment on above: Performed By: #### L 100.0100, L500.4050 ####[facility] [address] [place], [address] Erythrocyte distribution width (RBC) [Ratio] 12.9 % Normal 11.6-14.6 [facility] Comment on above: Performed By: #### L 100.0100, L500.4050 ####[facility] [address] [place], [address] Hematocrit (Bld) [Volume fraction] 41.1 % Normal 37-47 [facility] Comment on above: Performed By: #### L 100.0100, L500.4050 ####[facility] [address] [place], [address] Hemoglobin (Bld) [Mass/Vol] 14.3 g/dL Normal 12.0-15.0 [facility] Comment on above: Performed By: #### L 100.0100, L500.4050 ####[facility] [address] [place], [address] IG% 1.200 High 0.0-0.9 [facility] Comment on above: Result Comment: IG% - Immature Granulocytes (promyelocytes, myelocytes andmetamyelocytes) > 1% indicates that a LEFT SHIFT is Present. Performed By: #### L 100.0100, L500.4050 ####[facility] [address] [place], [address] Lymphocytes/100 WBC (Bld) 31.6 % Normal 19-41 [facility] Comment on above: Performed By: #### L 100.0100, L500.4050 ####[facility] [address] [place], [address] MCH (RBC) [Entitic mass] 32.1 pg High 27.0-32.0 [facility] Comment on above: Performed By: #### L 100.0100, L500.4050 ####[facility] [address] [place], [address] MCHC (RBC) [Mass/Vol] 34.8 g/dL Normal 32-36 [facility] Comment on above: Performed By: #### L 100.0100, L500.4050 ####[facility] [address] [place], [address] MCV (RBC) [Entitic vol] 92.2 fL Normal 81-99 [facility] Comment on above: Performed By: #### L 100.0100, L500.4050 ####[facility] [address] [place], [address] Monocytes/100 WBC (Bld) 10.6 % High 0-10 [facility] Comment on above: Performed By: #### L 100.0100, L500.4050 ####[facility] [address] [place], [address] Neutrophils/100 WBC (Bld) 53.1 % Normal 47-70 [facility] Comment on above: Performed By: #### L 100.0100, L500.4050 ####[facility] [address] [place], [address] Nucleated RBC (Bld) [#/Vol] 0 10*3/uL Normal 0-5 [facility] Comment on above: Performed By: #### L 100.0100, L500.4050 ####[facility] [address] [place], [address] Platelet mean volume (Bld) [Entitic vol] 9.1 fL Normal 6.2-12.0 [facility] Comment on above: Performed By: #### L 100.0100, L500.4050 ####[facility] [address] [place], [address] Platelets (Bld) [#/Vol] 165 10*3/uL Normal 150-450 [facility] Comment on above: Performed By: #### L 100.0100, L500.4050 ####[facility] [address] [place], [address] RBC (Bld) [#/Vol] 4.46 10*6/uL Normal 4.2-5.[address] [facility] Comment on above: Performed By: #### L 100.0100, L500.4050 ####[facility] [address] [place], [address] RDW SD 43.5 fl Normal 35.1-43.9 [facility] Comment on above: Performed By: #### L 100.0100, L500.4050 ####[facility] [address] [place], [address] WBC (Bld) [#/Vol] 7.5 10*3/uL Normal 4.4-11.0 [facility] Comment on above: Performed By: #### L 100.0100, L500.4050 ####[facility] [address] [place], [address] Comprehensive Metabolic Prof ilon 07-17-2024 Albumin [Mass/Vol] 3.4 g/dL Normal 3.2-5.0 [facility] Comment on above: Performed By: #### L 100.0100, L500.4050 ####[facility] [address] [place], [address] Albumin/Globulin [Mass ratio] 0.9 {ratio} Normal 0.9-2.4 [facility] Comment on above: Performed By: #### L 100.0100, L500.4050 ####[facility] [address] [place], [address] ALK P 159 U/L High 45-117 [facility] Comment on above: Performed By: #### L 100.0100, L500.4050 ####[facility] [address] [place], [address] ALT [Catalytic activity/Vol] 68 U/L High 13-56 [facility] Comment on above: Performed By: #### L 100.0100, L500.4050 ####[facility] [address] [place], [address] AST [Catalytic activity/Vol] 152 U/L High 15-37 [facility] Comment on above: Performed By: #### L 100.0100, L500.4050 ####[facility] [address] [place], [address] Bilirubin [Mass/Vol] 0.70 mg/dL Normal 0.20-1.00 [facility] Comment on above: Result Comment: For patients on eltrombopag therapy, use of Dimension [place] TBIL is not recommended. Performed By: #### L 100.0100, L500.4050 ####[facility] [address] [place], [address] BUN/CRE 17.2 RATIO Normal 10-20 [facility] Comment on above: Performed By: #### L 100.0100, L500.4050 ####[facility] [address] [place], [address] CA,Total 8.6 mg/dL Normal 8.5-10.1 [facility] Comment on above: Performed By: #### L 100.0100, L500.4050 ####[facility] [address] [place], [address] Chloride [Moles/Vol] 102 mmol/L Normal 98-107 [facility] Comment on above: Performed By: #### L 100.0100, L500.4050 ####[facility] [address] [place], [address] CO2 [Moles/Vol] 29.0 mmol/L Normal 21.0-32.0 [facility] Comment on above: Performed By: #### L 100.0100, L500.4050 ####[facility] [address] [place], [address] Creatinine [Mass/Vol] 0.58 mg/dL Normal 0.55-1.02 [facility] Comment on above: Result Comment: The validity of the calculated GFR GFRAA in patients over70 years has not been determined. Clinical correlation isessential. Performed By: #### L 100.0100, L500.4050 ####[facility] [address] [place], [address] ECRCL 100.83 ml/min Normal [facility] Comment on above: Performed By: #### L 100.0100, L500.4050 ####[facility] [address] [place], [address] EST GFR - AA 136 mL/min Normal >60 [facility] Comment on above: Result Comment: Afri can Moldovan GFR Calc Performed By: #### L 100.0100, L500.4050 ####[facility] [address] [place], [address] GAP 8 Normal 5-15 [facility] Comment on above: Performed By: #### L 100.0100, L500.4050 ####[facility] [address] [place], [address] GFR/1.73 sq M.predicted among non-blacks MDRD (S/P/Bld) [Vol rate/Area] 113 mL/min/{1.73_m2} Normal >60 [facility] Comment on above: Result Comment: Non- GFR Calc Performed By: #### L 100.0100, L500.4050 ####[facility] [address] [place], [address] Globulin (S) [Mass/Vol] 3.8 g/dL Normal 2.2-4.2 [facility] Comment on above: Performed By: #### L 100.0100, L500.4050 ####[facility] [address] [place], [address] Glucose [Mass/Vol] 113 mg/dL High 74-106 [facility] Comment on above: Result Comment: Fast ing Glucose result from 100 to 125 mg/dLsuggests IMPAIRED HOMEOSTASIS per A.D.A. criteria. Performed By: #### L 100.0100, L500.4050 ####[facility] [address] [place], [address] Potassium [Moles/Vol] 3.3 mmol/L Low 3.5-5.1 [facility] Comment on above: Performed By: #### L 100.0100, L500.4050 ####[facility] [address] [place], [address] Sodium [Moles/Vol] 139 mmol/L Normal 136-145 [facility] Comment on above: Performed By: #### L 100.0100, L500.4050 ####[facility] [address] [place], [address] T PROT 7.2 g/dL Normal 6.4-8.2 [facility] Comment on above: Performed By: #### L 100.0100, L500.4050 ####[facility] [address] [place], [address] Urea nitrogen [Mass/Vol] 10 mg/dL Normal 7-18 [facility] Comment on above: Performed By: #### L 100.0100, L500.4050 ####[facility] [address] [place], [address] Emergency Department Summary on 07-17-2024 Emergency Department Summary Normal [facility] H AND P Exam - Hospitaliston 07-17-2024 H&P Exam - Hospitalist Normal [facility] Urine Drug Screen (VISTA)on 07-17-2024 AMPHETAMINES Negative Normal <1000 ng/mL [facility] Comment on above: Performed By: #### L 501.9100, L505.5000 ####[facility] [address] [place], [address] BARBITIURATES Negative Normal < 200 ng/mL [facility] Comment on above: Performed By: #### L 501.9100, L505.5000 ####[facility] [address] [place], [address] BENZODIAZIPINE Negative Normal < 200 ng/mL [facility] Comment on above: Performed By: #### L 501.9100, L505.5000 ####[facility] [address] [place], [address] COCAINE Negative Normal < 300 ng/mL [facility] Comment on above: Performed By: #### L 501.9100, L505.5000 ####[facility] [address] [place], [address] ECSTACY Negative Normal < 500 ng/mL [facility] Comment on above: Performed By: #### L 501.9100, L505.5000 ####[facility] [address] [place], [address] METHADONE Negative Normal < 300 ng/mL [facility] Comment on above: Performed By: #### L 501.9100, L505.5000 ####[facility] [address] [place], [address] OPIATES Negative Normal < 300 ng/mL [facility] Comment on above: Performed By: #### L 501.9100, L505.5000 ####[facility] [address] [place], [address] PCP Negative Normal < 25 ng/mL [facility] Comment on above: Performed By: #### L 501.9100, L505.5000 ####[facility] [address] [place], [address] THC Negative Normal < 50 ng/mL [facility] Comment on above: Performed By: #### L 501.9100, L505.5000 ####[facility] [address] [place], [address] VISTA UDS PH 7 Normal [facility] Comment on above: Performed By: #### L 501.9100, L505.5000 ####[facility] [address] [place], [address] Neurology Visit Reporton Neurology Visit Report Normal [facility] .Auto Diffon 12-05-2023 Basophil, Absolute 0.1 10 3/mcL Normal 0.0-0.3 [facility] ([place]) Comment on above: Performed By: #### B MP, ANEU, GFR, ADIFF, CBC #### Juan José [address] [address] Basophils/100 WBC (Bld) 0.7 % Normal 0.0-2.5 [facility] ([place] Comment on above: Performed By: #### B MP, ANEU, GFR, ADIFF, CBC #### [address] [address] Eosinophil, Absolute 0.4 10 3/mcL Normal 0.0-0.7 [facility] ([place]) Comment on above: Performed By: #### B MP, ANEU, GFR, ADIFF, CBC #### [address] [address] Eosinophils/100 WBC (Bld) 4.5 % Normal 0.0-6.0 [facility] ([place] Comment on above: Performed By: #### B MP, ANEU, GFR, ADIFF, CBC #### [address] [address] Lymphocyte, Absolute 3.6 10 3/mcL Normal 0.9-4.3 [facility] ([place]) Comment on above: Performed By: #### B MP, ANEU, GFR, ADIFF, CBC #### [address] [address] Lymphocytes/100 WBC (Bld) 36.0 % Normal 20.0-40.0 [facility] ([place] Comment on above: Performed By: #### B MP, ANEU, GFR, ADIFF, CBC #### [address] [address] Monocyte, Absolute 1.0 10 3/mcL Normal 0.1-1.4 [facility] ([place]) Comment on above: Performed By: #### B MP, ANEU, GFR, ADIFF, CBC #### [address] [address] Monocytes/100 WBC (Bld) 9.8 % Normal 2.0-13.0 [facility] ([place] Comment on above: Performed By: #### B MP, ANEU, GFR, ADIFF, CBC #### [address] [address] Neutrophils/100 WBC (Bld) 49.0 % Low 50.0-75.0 [facility] ([place] Comment on above: Performed By: #### B MP, ANEU, GFR, ADIFF, CBC #### [address] [address] .GFRon 12-05-2023 GFR >60 Normal [facility] ([place] Comment on above: Result Comment: GFR Population [...] B MP, ANEU, GFR, ADIFF, CBC #### [address] [address] GFR Non- >60 Normal [facility] ([place] Comment on above: Result Comment: GFR Population [...] B MP, ANEU, GFR, ADIFF, CBC #### [address] [address] .NEUABSon 12-05-2023 Neutrophil, Absolute 4.8 10 3/mcL Normal 2.3-8.1 [facility] ([place] Comment on above: Performed By: #### B MP, ANEU, GFR, ADIFF, CBC #### [address] [address] BMPon 12-05-2023 BUN/Creatinine Ratio 23.3 ratio High 10.0-22.0 [facility] ([place] Comment on above: Performed By: #### B MP, ANEU, GFR, ADIFF, CBC #### [place] [id number] Calcium [Mass/Vol] 8.8 mg/dL Normal 8.7-10.4 [facility] ([place]) Comment on above: Performed By: #### B MP, ANEU, GFR, ADIFF, CBC #### [place] [address] Chloride [Moles/Vol] 109 mmol/L Normal 98-110 [facility] ([place] Comment on above: Performed By: #### B MP, ANEU, GFR, ADIFF, CBC #### [place] [address] CO2 [Moles/Vol] 30 mmol/L Normal 22-32 [facility] ([place] Comment on above: Performed By: #### B MP, ANEU, GFR, ADIFF, CBC #### [place] [address] Creatinine [Mass/Vol] 0.73 mg/dL Normal 0.50-1.20 [facility] ([place] Comment on above: Performed By: #### B MP, ANEU, GFR, ADIFF, CBC #### [place] [address] Electrolyte Balance 5.0 mEq/L Normal 4.0-15.0 [facility] ([place]) Comment on above: Performed By: #### B MP, ANEU, GFR, ADIFF, CBC #### [place] [id number] Glucose [Mass/Vol] 73 mg/dL Normal 70-110 [facility] ([place] Comment on above: Performed By: #### B MP, ANEU, GFR, ADIFF, CBC #### [place] [address] Potassium [Moles/Vol] 4.1 mmol/L Normal 3.5-5.0 [facility] ([place] Comment on above: Performed By: #### B MP, ANEU, GFR, ADIFF, CBC #### [place] [address] Sodium [Moles/Vol] 144 mmol/L Normal 136-145 [facility] ([place] Comment on above: Performed By: #### B MP, ANEU, GFR, ADIFF, CBC #### [place] [address] Urea nitrogen [Mass/Vol] 17.0 mg/dL Normal 8.0-22.0 [facility] ([place] Comment on above: Performed By: #### B MP, ANEU, GFR, ADIFF, CBC #### [place] [address] CBCon 12-05-2023 Erythrocyte distribution width (RBC) [Ratio] 13.0 % Normal 11.5-15.5 [facility] ([place] Comment on above: Performed By: #### B MP, ANEU, GFR, ADIFF, CBC #### [place] [address] Hematocrit (Bld) [Volume fraction] 33.9 % Low 34.0-46.0 [facility] ([place] Comment on above: Performed By: #### B MP, ANEU, GFR, ADIFF, CBC #### [place] [address] Hgb 11.5 G/dL Low 12.0-16.0 [facility] ([place] Comment on above: Performed By: #### B MP, ANEU, GFR, ADIFF, CBC #### [place] [address] MCH (RBC) [Entitic mass] 31.0 pg Normal 27.0-33.0 [facility] ([place] Comment on above: Performed By: #### B MP, ANEU, GFR, ADIFF, CBC #### [place] [address] MCHC 33.9 G/dL Normal 32.0-36.0 [facility] ([place] Comment on above: Performed By: #### B MP, ANEU, GFR, ADIFF, CBC #### [place] [address] MCV (RBC) [Entitic vol] 91.5 fL Normal 80.0-99.0 [facility] ([place] Comment on above: Performed By: #### B MP, ANEU, GFR, ADIFF, CBC #### [place] [address] Platelet 207 10 3/mcL Normal 150-450 [facility] ([place] Comment on above: Performed By: #### B MP, ANEU, GFR, ADIFF, CBC #### [place] [address] Platelet mean volume (Bld) [Entitic vol] 9.1 fL Normal 6.6-10.5 [facility] ([place] Comment on above: Performed By: #### B MP, ANEU, GFR, ADIFF, CBC #### [place] [address] RBC 3.70 10 6/mcL Low 4.10-5.30 [facility] ([place] Comment on above: Performed By: #### B MP, ANEU, GFR, ADIFF, CBC #### [place] [address] WBC 9.9 10 3/mcL Normal 4.5-10.8 [facility] ([place] Comment on above: Performed By: #### B MP, ANEU, GFR, ADIFF, CBC #### [place] [address] LABORATORYOrdered By: SYSTEM SYSTEM on 12-05-2023 Basophils (Bld) [#/Vol] 0.1 103/mcL Normal 0.0 - 0.3 10^3/mcL AH Workflow SS Basophils/100 WBC (Bld) 0.7 % Normal 0.0 - 2.5 % AH Workflow SS Calcium [Mass/Vol] 8.8 mg/dL Normal 8.7 - 10. 4 mg/dL AH ADM SS Chloride [Moles/Vol] 109 mmol/L Normal 98 - 11 0 mEq/L ADM SS CO2 [Moles/Vol] 30 mmol/L Normal 22 - 32 mEq/L ADM SS Creatinine [Mass/Vol] 0.73 mg/dL Normal 0.50 - 1.20 mg/dL ADM SS Electrolyte Balance 5.0 mEq/L Normal 4.0 - 15 .0 mEq/L ADM SS Eosinophils (Bld) [#/Vol] 0.4 103/mcL Normal 0.0 - 0.7 10^3/mcL Workflow SS Eosinophils/100 WBC (Bld) 4.5 % Normal 0.0 - 6.0 % Workflow [...] (S/P/Bld) [Vol rate/Area] ml/min/1.73sqm Invalid Interpretation Code NicOx Chemistry S Comment on above: Interpretive Data: [...] 73 mg/dL Normal 70 - 110 mg/dL AH ADM SS Hematocrit (Bld) [Volume fraction] 33.9 % Low 34.0 - 46.0 % AH Workflow SS Hemoglobin (Bld) [Mass/Vol] 11.5 G/dL [...] Riaz 12-04-2023 Ammonia 41 mcmol/l High 11-32 [facility] ([place] Comment on above: Performed By: #### B MP, ANEU, GFR, ADIFF, CBC #### [address] [address] LABORATORYOrdered By: SYSTEM SYSTEM on 12-04-2023 Ammonia (P) [Moles/Vol] 41 umol/L High 11 - 32 mcmol/L AH ADM SS Valproate [Mass/Vol] 102.4 ug/mL Normal 50.0 - 130.0 mcg/mL AH ADM SS LABORATORYOrdered By: Ventura Engel on 12-04-2023 LDose Valproic Acid: See eMAR (12/04/23 7:35 AM) Normal Chemistry S VALPRon 12-04-2023 LDose Valproic Acid: See eMAR Normal [facility] ([place] Comment on above: Performed By: #### B MP, ANEU, GFR, ADIFF, CBC #### [address] [address] Valproic Acid Lvl 102.4 mcg/mL Normal 50.0-130.0 [facility] ([place]) Comment on above: Performed By: #### B MP, ANEU, GFR, ADIFF, CBC #### [address] [address] .Auto Diffon 12-03-2023 Basophil, Absolute 0.1 10 3/mcL Normal 0.0-0.3 [facility] ([place] Comment on above: Performed By: #### A AZAEL, GFR, ADIFF, CMP, LIPID, CBC #### [address] [address] Basophils/100 WBC (Bld) 0.4 % Normal 0.0-2.5 [facility] ([place] Comment on above: Performed By: #### A AZAEL, GFR, ADIFF, CMP, LIPID, CBC #### [address] [address] Eosinophil, Absolute 0.2 10 3/mcL Normal 0.0-0.7 [facility] ([place]) Comment on above: Performed By: #### A AZAEL, GFR, ADIFF, CMP, LIPID, CBC #### [address] [address] Eosinophils/100 WBC (Bld) 1.1 % Normal 0.0-6.0 [facility] ([place] Comment on above: Performed By: #### A AZAEL, GFR, ADIFF, CMP, LIPID, CBC #### [address] [address] Lymphocyte, Absolute 2.6 10 3/mcL Normal 0.9-4.3 [facility] ([place]) Comment on above: Performed By: #### A AZAEL, GFR, ADIFF, CMP, LIPID, CBC #### [address] [address] Lymphocytes/100 WBC (Bld) 18.8 % Low 20.0-40.0 [facility] ([place] Comment on above: Performed By: #### A AZAEL, GFR, ADIFF, CMP, LIPID, CBC #### [address] [address] Monocyte, Absolute 1.1 10 3/mcL Normal 0.1-1.4 [facility] ([place]) Comment on above: Performed By: #### A AZAEL, GFR, ADIFF, CMP, LIPID, CBC #### [address] [address] Monocytes/100 WBC (Bld) 7.5 % Normal 2.0-13.0 [facility] ([place] Comment on above: Performed By: #### A AZAEL, GFR, ADIFF, CMP, LIPID, CBC #### [address] [address] Neutrophils/100 WBC (Bld) 72.2 % Normal 50.0-75.0 [facility] ([place] Comment on above: Performed By: #### A AZAEL, GFR, ADIFF, CMP, LIPID, CBC #### [address] [address] .GFRon 12-03-2023 GFR >60 Normal [facility] ([place] Comment on above: Result Comment: GFR Population [...] B MP, ANEU, GFR, ADIFF, CBC #### [place] [address] GFR Non- >60 Normal [facility] ([place] Comment on above: Result Comment: GFR Population [...] B MP, ANEU, GFR, ADIFF, CBC #### [address] [address] .NEUABSon 12-03-2023 Neutrophil, Absolute 10.1 10 3/mcL High 2.3-8.1 A [facility] ([place]) Comment on above: Performed By: #### A AZAEL, GFR, ADIFF, CMP, LIPID, CBC #### [place] [address] A1Con 12-03-2023 HbA1c (Bld) [Mass fraction] 5.0 % Normal 4.0-6.0 [facility] ([place] Comment on above: Performed By: #### B MP, ANEU, GFR, ADIFF, CBC #### [place] [address] CBCon 12-03-2023 Erythrocyte distribution width (RBC) [Ratio] 12.7 % Normal 11.5-15.5 [facility] ([place] Comment on above: Performed By: #### A AZAEL, GFR, ADIFF, CMP, LIPID, CBC #### [place] [address] Hematocrit (Bld) [Volume fraction] 37.6 % Normal 34.0-46.0 [facility] ([place] Comment on above: Performed By: #### A AZAEL, GFR, ADIFF, CMP, LIPID, CBC #### [place] [address] Hgb 13.0 G/dL Normal 12.0-16.0 [facility] ([place] Comment on above: Performed By: #### A AZAEL, GFR, ADIFF, CMP, LIPID, CBC #### [place] [address] MCH (RBC) [Entitic mass] 31.6 pg Normal 27.0-33.0 [facility] ([place] Comment on above: Performed By: #### A AZAEL, GFR, ADIFF, CMP, LIPID, CBC #### [place] [address] MCHC 34.6 G/dL Normal 32.0-36.0 [facility] ([place] Comment on above: Performed By: #### A AZAEL, GFR, ADIFF, CMP, LIPID, CBC #### [place] [address] MCV (RBC) [Entitic vol] 91.1 fL Normal 80.0-99.0 [facility] ([place] Comment on above: Performed By: #### A AZAEL, GFR, ADIFF, CMP, LIPID, CBC #### [address] [address] Platelet 218 10 3/mcL Normal 150-450 [facility] ([place] Comment on above: Performed By: #### A AZAEL, GFR, ADIFF, CMP, LIPID, CBC #### [place] [address] Platelet mean volume (Bld) [Entitic vol] 9.1 fL Normal 6.6-10.5 [facility] ([place] Comment on above: Performed By: #### A AZAEL, GFR, ADIFF, CMP, LIPID, CBC #### [place] [id number] RBC 4.12 10 6/mcL Normal 4.10-5.30 [facility] ([place] Comment on above: Performed By: #### A AZAEL, GFR, ADIFF, CMP, LIPID, CBC #### [place] [address] WBC 14.0 10 3/mcL High 4.5-10.8 [facility] ([place] Comment on above: Performed By: #### A AZAEL, GFR, ADIFF, CMP, LIPID, CBC #### [address] [address] CMPon 12-03-2023 Albumin Level 3.4 G/dL Normal 3.2-4.8 [facility] ([place] Comment on above: Performed By: #### A AZAEL, GFR, ADIFF, CMP, LIPID, CBC #### [place] [address] Albumin/Globulin [Mass ratio] 1.1 {ratio} Normal 0.9-1.6 [facility] ([place] Comment on above: Performed By: #### A AZAEL, GFR, ADIFF, CMP, LIPID, CBC #### [place] [id number] ALP [Catalytic activity/Vol] 62 U/L Normal 38-126 [facility] ([place] Comment on above: Performed By: #### A AZAEL, GFR, ADIFF, CMP, LIPID, CBC #### [address] [address] ALT [Catalytic activity/Vol] 13 U/L Normal 10-49 [facility] ([place] Comment on above: Performed By: #### A AZAEL, GFR, ADIFF, CMP, LIPID, CBC #### [address] [address] AST [Catalytic activity/Vol] 21 U/L Normal 8-34 [facility] ([place] Comment on above: Performed By: #### A AZAEL, GFR, ADIFF, CMP, LIPID, CBC #### [address] [address] Bili Total 0.60 mg/dL Normal 0.20-1.20 [facility] ([place] Comment on above: Result Comment: Use of this assay is not recommended for patients undergoing treatment with eltrombopag due to the potential for falsely elevated results. Performed By: #### A AZAEL, GFR, ADIFF, CMP, LIPID, CBC #### [place] [id number] BUN/Creatinine Ratio 36.5 ratio High 10.0-22.0 [facility] ([place]) Comment on above: Performed By: #### A AZAEL, GFR, ADIFF, CMP, LIPID, CBC #### [address] [address] Calcium [Mass/Vol] 9.3 mg/dL Normal 8.7-10.4 [facility] ([place]) Comment on above: Performed By: #### A AZAEL, GFR, ADIFF, CMP, LIPID, CBC #### [address] [address] Chloride [Moles/Vol] 105 mmol/L Normal 98-110 [facility] ([place] Comment on above: Performed By: #### A AZAEL, GFR, ADIFF, CMP, LIPID, CBC #### [place] [phone] CO2 [Moles/Vol] 30 mmol/L Normal 22-32 [facility] ([place] Comment on above: Performed By: #### A AZAEL, GFR, ADIFF, CMP, LIPID, CBC #### [address] [address] Creatinine [Mass/Vol] 0.52 mg/dL Normal 0.50-1.20 [facility] ([place] Comment on above: Performed By: #### A AZAEL, GFR, ADIFF, CMP, LIPID, CBC #### [address] [address] Electrolyte Balance 7.0 mEq/L Normal 4.0-15.0 [facility] ([place]) Comment on above: Performed By: #### A AZAEL, GFR, ADIFF, CMP, LIPID, CBC #### [address] [address] Globulin 3.1 G/dL Normal 1.5-3.8 [facility] ([place] Comment on above: Performed By: #### A AZAEL, GFR, ADIFF, CMP, LIPID, CBC #### [place] [phone] Glucose [Mass/Vol] 89 mg/dL Normal 70-110 [facility] ([place] Comment on above: Performed By: #### A AZAEL, GFR, ADIFF, CMP, LIPID, CBC #### [address] [address] Potassium [Moles/Vol] 3.8 mmol/L Normal 3.5-5.0 [facility] ([place] Comment on above: Performed By: #### A AZAEL, GFR, ADIFF, CMP, LIPID, CBC #### [address] [address] Sodium [Moles/Vol] 142 mmol/L Normal 136-145 [facility] ([place] Comment on above: Performed By: #### A AZAEL, GFR, ADIFF, CMP, LIPID, CBC #### [place] [id number] Total Protein 6.5 G/dL Normal 5.7-8.2 [facility] ([place] Comment on above: Result Comment: No te - New Reference Range in effect 20 Performed By: #### A AZAEL, GFR, ADIFF, CMP, LIPID, CBC #### [place] [id number] [place] [address] Urea nitrogen [Mass/Vol] 19.0 mg/dL Normal 8.0-22.0 [facility] [place] Comment on above: Performed By: #### A AZAEL, GFR, ADIFF, CMP, LIPID, CBC #### [place] [id number] [place] [address] LABORATORYOrdered By: Marisabel Chase on 12-03-2023 Appearance (U) Clear (12/03/23 2:22 PM) Normal Clear Auto Urine SS Bilirubin Ql (U) Negative (12/03/23 2:22 PM) Normal Neg-Trace AH Auto Urine SS Color (U) Yellow (12/03/23 2:22 PM) Normal AH Auto Urine SS Glucose Test strip (U) [Mass/Vol] Negative Normal Negative AH Auto Urine SS Hemoglobin Auto test strip (U) [Mass/Vol] Negative (12/03/23 2:22 PM) Normal Neg-Trace AH Auto Urine SS Ketones Ql (U) Negative Normal Neg-Trace AH Auto Urine SS UA Leuk Est Trace *NA* (12/03/23 [...] Type Clean Catch (12/03/23 2:22 PM) Normal Auto Urine SS UA Urobilinogen 0.2 E.U./dL Normal 0.2-1.0 AH Auto Urine SS LABORATORYOrdered By: SYSTEM SYSTEM on 12-03-2023 Albumin BCP dye [Mass/Vol] 3.4 G/dL Normal 3.2 - 4.8 G/dL AH ADM SS Albumin/Globulin [Mass ratio] 1.1 {ratio} Normal 0.9 - 1.6 ratio AH ADM SS ALP [Catalytic activity/Vol] 62 U/L Normal 38 - 126 U/L ADM SS ALT No additional P-5'-P [Catalytic activity/Vol] 13 U/L Normal 10 - 49 U/L ADM SS AST [Catalytic activity/Vol] 21 U/L Normal 8 - 34 U/L ADM SS Basophils (Bld) [#/Vol] 0.1 103/mcL Normal 0.0 - 0.3 10^3/mcL Workflow SS Basophils/100 WBC (Bld) 0.4 % Normal 0.0 - 2.5 % Workflow SS Bilirubin [Mass/Vol] 0.60 mg/dL Normal 0.20 - 1.20 mg/dL ADM SS Comment on above: Interpretive Data: U se of this assay is not recommended for patients undergoing treatment with eltrombopag due to the potential for falsely elevated results. Calcium [Mass/Vol] 9.3 mg/dL Normal 8.7 - 10. 4 mg/dL ADM SS Chloride [Moles/Vol] 105 mmol/L Normal 98 - 11 0 mEq/L ADM SS CO2 [Moles/Vol] 30 mmol/L [...] 3.1 G/dL Normal 1.5 - 3.8 G/dL ADM SS Glucose [Mass/Vol] 89 mg/dL Normal 70 - 110 mg/dL ADM SS Hematocrit (Bld) [Volume fraction] 37.6 [...] 34.6 G/dL Normal 32.0 - 36.0 G/dL Workflow SS MCV (RBC) [Entitic vol] 91.1 fL Normal 80.0 - 99.0 fL Workflow SS Monocytes (Bld) [#/Vol] 1.1 103/mcL [...] 19.0 mg/dL Normal 8.0 - 22.0 mg/dL AH ADM SS Urea nitrogen/Creatinine [Mass ratio] 36.5 ratio High 10.0 - 22.0 ratio AH ADM SS WBC (Bld) [#/Vol] 14.0 103/mcL High 4.5 - 10.8 10^3/mcL AH Workflow SS LABORATORYOrdered By: Demetrius Langley on 12-03-2023 Cholesterol [Mass/Vol] 185 mg/dL Normal 50 - 199 mg/dL ADM SS Comment on above: Interpretive Data: C holesterol Reference Interval: Less than 200 Desirable 200-239 Borderline high risk 240 and above High risk Cholesterol in HDL [Mass/Vol] 33 mg/dL Low 40 - 59 mg/dL AH ADM SS Cholesterol in LDL [Mass/Vol] 128 mg/dL Normal 0 - 129 mg/dL AH ADM SS Triglyceride [Mass/Vol] 119 mg/dL Normal 3 - 149 mg/dL AH ADM SS LIPIDon 12-03-2023 Cholesterol [Mass/Vol] 185 mg/dL Normal 50-199 [facility] [place] Comment on above: Result Comment: Chol esterol Reference Interval: Less than 200 Desirable 200-239 Borderline high risk 240 and above High risk Performed By: #### B MP, ANEU, GFR, ADIFF, CBC #### [facility] [address] [place] [address] Cholesterol in HDL [Mass/Vol] 33 mg/dL Low 40-59 [facility] [place] Comment on above: Performed By: #### B MP, ANEU, GFR, ADIFF, CBC #### [facility] [address] [place] [address] Cholesterol in LDL [Mass/Vol] 128 mg/dL Normal 0-129 [facility] ([place] Comment on above: Performed By: #### B MP, ANEU, GFR, ADIFF, CBC #### [facility] [address] [place] [address] Triglyceride [Mass/Vol] 119 mg/dL Normal 3-149 [facility] ([place] Comment on above: Performed By: #### B MP, ANEU, GFR, ADIFF, CBC #### [facility] [address] [place] [address] MRI BRAIN W/O CONTRASTon MRI BRAIN W/O [...] 12/03/2023 12:06:44 PM Ordering Provider: JOSIE ONEIL Normal [facility] [place] No Panel Informationon 12-02 Culture Urine <10,000 cfu/ml. No Significant growth. Sensitivity not indicated. [facility] Work Phone: UAon 12-03-2023 Color (U) Yellow Normal [facility] [place] Comment on above: Performed By: #### U A #### [place] [address] Glucose (U) [Mass/Vol] Negative Normal Negative [facility] [place] Comment on above: Performed By: #### U A #### [address] [address] Ketones Ql (U) Negative Normal Neg-Trace [facility] [place] Comment on above: Performed By: #### U A #### [address] [address] UA Appear Clear Normal Clear [facility] [place] Comment on above: Performed By: #### U A #### [address] [address] UA Blood Negative Normal Neg-Trace [facility] [place] Comment on above: Performed By: #### U A #### [address] [address] UA Leuk Est Trace Normal Negative [facility] [place] Comment on above: Performed By: #### U A #### [address] [address] UA Nitrite Negative Normal Negative [facility] [place] Comment on above: Performed By: #### U A #### [address] [address] UA pH 5.0 Normal 5.0 - 8.0 [facility] [place] Comment on above: Performed By: #### U A #### [address] [address] UA Protein Negative Normal Negative [facility] [place] Comment on above: Performed By: #### U A #### [address] [address] UA Spec Grav <=1.005 Abnormal 1.006-1.029 [facility] [place] Comment on above: Performed By: #### U A #### [place] [address] UA Specimen Type Clean Catch Normal [facility] [place] Comment on above: Performed By: #### U A #### [place] [address] UA Urobilinogen 0.2 E.U./dL Normal 0.2-1.0 [facility] ([place]) Comment on above: Performed By: #### U A #### [place] [address] Urobilinogen (U) [Mass/Vol] Negative Normal Neg-Trace [facility] ([place] Comment on above: Performed By: #### U A #### [place] [address] .Auto Diffon 12-02-2023 Basophil, Absolute 0.1 10 3/mcL Normal 0.0-0.3 [facility] ([place]) Comment on above: Performed By: #### B MP, ANEU, GFR, ADIFF, CBC #### [place] [id number] Basophils/100 WBC (Bld) 0.6 % Normal 0.0-2.5 [facility] ([place]) Comment on above: Performed By: #### B MP, ANEU, GFR, ADIFF, CBC #### [place] [id number] Eosinophil, Absolute 0.2 10 3/mcL Normal 0.0-0.7 [facility] ([place]) Comment on above: Performed By: #### B MP, ANEU, GFR, ADIFF, CBC #### [place] [id number] Eosinophils/100 WBC (Bld) 1.2 % Normal 0.0-6.0 [facility] ([place] Comment on above: Performed By: #### B MP, ANEU, GFR, ADIFF, CBC #### [address] [address] Lymphocyte, Absolute 2.9 10 3/mcL Normal 0.9-4.3 [facility] ([place]) Comment on above: Performed By: #### B MP, ANEU, GFR, ADIFF, CBC #### [address] [address] Lymphocytes/100 WBC (Bld) 18.5 % Low 20.0-40.0 [facility] ([place]) Comment on above: Performed By: #### B MP, ANEU, GFR, ADIFF, CBC #### [address] [address] Monocyte, Absolute 1.5 10 3/mcL High 0.1-1.4 [facility] ([place]) Comment on above: Performed By: #### B MP, ANEU, GFR, ADIFF, CBC #### [address] [address] Monocytes/100 WBC (Bld) 9.5 % Normal 2.0-13.0 [facility] ([place]) Comment on above: Performed By: #### B MP, ANEU, GFR, ADIFF, CBC #### [address] [address] Neutrophils/100 WBC (Bld) 70.2 % Normal 50.0-75.0 [facility] ([place] Comment on above: Performed By: #### B MP, ANEU, GFR, ADIFF, CBC #### [address] [address] .GFRon 12-02-2023 GFR >60 Normal [facility] ([place]) Comment on above: Result Comment: GFR Population [...] B MP, ANEU, GFR, ADIFF, CBC #### [address] [address] GFR Non- >60 Normal [facility] ([place] Comment on above: Result Comment: GFR Population [...] B MP, ANEU, GFR, ADIFF, CBC #### [address] [address] .MDWon 12-02-2023 Monocyte Distribution Width 17.86 Normal 0.00-20.00 [facility] ([place]) Comment on above: Result Comment: For ED adult patients suspected of sepsis, MDW<=20.0 does not rule out sepsis or risk of sepsis Performed By: #### B MP, ANEU, GFR, ADIFF, CBC #### [address] [address] .NEUABSon 12-02-2023 Neutrophil, Absolute 10.8 10 3/mcL High 2.3-8.1 A [facility] ([place]) Comment on above: Performed By: #### B MP, ANEU, GFR, ADIFF, CBC #### [address] [address] BMPon 12-02-2023 BUN/Creatinine Ratio 27.3 ratio High 10.0-22.0 [facility] ([place]) Comment on above: Performed By: #### B MP, ANEU, GFR, ADIFF, CBC #### [address] [address] Calcium [Mass/Vol] 9.6 mg/dL Normal 8.7-10.4 [facility] ([place]) Comment on above: Performed By: #### B MP, ANEU, GFR, ADIFF, CBC #### [address] [address] Chloride [Moles/Vol] 104 mmol/L Normal 98-110 [facility] ([place]) Comment on above: Performed By: #### B MP, ANEU, GFR, ADIFF, CBC #### [address] [address] CO2 [Moles/Vol] 31 mmol/L Normal 22-32 [facility] [place] Comment on above: Performed By: #### B MP, ANEU, GFR, ADIFF, CBC #### [address] [address] Creatinine [Mass/Vol] 0.66 mg/dL Normal 0.50-1.20 [facility] ([place] Comment on above: Performed By: #### B MP, ANEU, GFR, ADIFF, CBC #### [address] [address] Electrolyte Balance 4.0 mEq/L Normal 4.0-15.0 [facility] ([place]) Comment on above: Performed By: #### B MP, ANEU, GFR, ADIFF, CBC #### [address] [address] Glucose [Mass/Vol] 95 mg/dL Normal 70-110 [facility] ([place]) Comment on above: Performed By: #### B MP, ANEU, GFR, ADIFF, CBC #### [address] [address] Potassium [Moles/Vol] 3.7 mmol/L Normal 3.5-5.0 [facility] ([place] Comment on above: Performed By: #### B MP, ANEU, GFR, ADIFF, CBC #### [address] [address] Sodium [Moles/Vol] 139 mmol/L Normal 136-145 [facility] ([place]) Comment on above: Performed By: #### B MP, ANEU, GFR, ADIFF, CBC #### [place] [address] Urea nitrogen [Mass/Vol] 18.0 mg/dL Normal 8.0-22.0 [facility] ([place] Comment on above: Performed By: #### B MP, ANEU, GFR, ADIFF, CBC #### [place] [address] CBCon 12-02-2023 Erythrocyte distribution width (RBC) [Ratio] 12.7 % Normal 11.5-15.5 [facility] ([place] Comment on above: Performed By: #### B MP, ANEU, GFR, ADIFF, CBC #### [place] [address] Hematocrit (Bld) [Volume fraction] 38.8 % Normal 34.0-46.0 [facility] ([place] Comment on above: Performed By: #### B MP, ANEU, GFR, ADIFF, CBC #### [place] [address] Hgb 13.3 G/dL Normal 12.0-16.0 [facility] ([place] Comment on above: Performed By: #### B MP, ANEU, GFR, ADIFF, CBC #### [place] [address] MCH (RBC) [Entitic mass] 30.9 pg Normal 27.0-33.0 [facility] ([place] Comment on above: Performed By: #### B MP, ANEU, GFR, ADIFF, CBC #### [place] [address] MCHC 34.2 G/dL Normal 32.0-36.0 [facility] ([place] Comment on above: Performed By: #### B MP, ANEU, GFR, ADIFF, CBC #### [place] [address] MCV (RBC) [Entitic vol] 90.3 fL Normal 80.0-99.0 [facility] ([place] Comment on above: Performed By: #### B MP, ANEU, GFR, ADIFF, CBC #### [place] [address] Platelet 239 10 3/mcL Normal 150-450 [facility] ([place] Comment on above: Performed By: #### B MP, ANEU, GFR, ADIFF, CBC #### [place] [address] Platelet mean volume (Bld) [Entitic vol] 9.0 fL Normal 6.6-10.5 [facility] ([place] Comment on above: Performed By: #### B MP, ANEU, GFR, ADIFF, CBC #### [place] [address] RBC 4.30 10 6/mcL Normal 4.10-5.30 [facility] ([place] Comment on above: Performed By: #### B MP, ANEU, GFR, ADIFF, CBC #### [place] [address] WBC 15.4 10 3/mcL High 4.5-10.8 [facility] ([place] Comment on above: Performed By: #### B MP, ANEU, GFR, ADIFF, CBC #### [place] [address] CK-Dominik 12-02-2023 Relative Index Not Valid Normal 0.0-4.5 [facility] ([place] Comment on above: Result Comment: CPK <185 invalidates relative index Performed By: #### B MP, ANEU, GFR, ADIFF, CBC #### [place] [address] CK [Catalytic activity/Vol] 130 U/L Normal 7-185 [facility] ([place] Comment on above: Performed By: #### B MP, ANEU, GFR, ADIFF, CBC #### [place] [address] CKMBMon 12-02-2023 CK.MB [Mass/Vol] 1.70 ng/mL Normal 0.00-5.00 [facility] ([place]) Comment on above: Result Comment: No te - New Reference Range in effect 20 Performed By: #### B MP, ANEU, GFR, ADIFF, CBC #### [place] [address] LABORATORYOrdered By: SYSTEM SYSTEM on 12-02-2023 CK [Catalytic activity/Vol] 130 U/L Normal 7 - 185 U/L AH ADM SS HbA1c (Bld) [Mass fraction] 5.0 % Normal 4.0 - 6.0 % Auto Chem SS Magnesium [Mass/Vol] 1.9 mg/dL [...] ng/L Male: 0-54 ng/L Testing performed on [employer] IM analyzer using direct chemiluminescent technology. Valproate [Mass/Vol] 70.1 ug/mL Normal 50.0 - 130.0 mcg/mL AH ADM SS Basophils (Bld) [#/Vol] 0.1 103/mcL Normal 0.0 - 0.3 10^3/mcL AH Workflow SS Basophils/100 WBC (Bld) 0.6 % Normal 0.0 - 2.5 % Workflow SS Calcium [Mass/Vol] 9.6 mg/dL Normal 8.7 - 10. 4 mg/dL ADM SS Chloride [Moles/Vol] 104 mmol/L Normal 98 - 11 0 mEq/L AH ADM SS CO2 [Moles/Vol] 31 mmol/L Normal 22 - 32 mEq/L AH ADM SS Creatinine [Mass/Vol] 0.66 mg/dL Normal 0.50 - 1.20 mg/dL AH ADM SS Electrolyte Balance 4.0 mEq/L Normal 4.0 - 15 .0 mEq/L AH ADM SS Eosinophils (Bld) [#/Vol] 0.2 103/mcL Normal 0.0 - 0.7 10^3/mcL Workflow SS Eosinophils/100 WBC (Bld) 1.2 % Normal 0.0 - 6.0 % Workflow SS Erythrocyte distribution width (RBC) [Ratio] 12.7 % Normal 11.5 - 15.5 % Workflow SS GFR/1.73 sq M.predicted among blacks MDRD (S/P/Bld) [Vol rate/Area] ml/min/1.73sqm Invalid Interpretation Code [facility] Comment on above: Interpretive Data: GFR Population [...] (S/P/Bld) [Vol rate/Area] ml/min/1.73sqm Invalid Interpretation Code [facility] Comment on above: Interpretive Data: GFR Population [...] 95 mg/dL Normal 70 - 110 mg/dL [facility] Hematocrit (Bld) [Volume fraction] 38.8 % Normal [...] 139 mmol/L Normal 136 - 145 mEq/L ADM SS Urea nitrogen [Mass/Vol] 18.0 mg/dL Normal 8.0 - 22.0 mg/dL AH ADM SS Urea nitrogen/Creatinine [Mass ratio] 27.3 ratio High 10.0 - 22.0 ratio AH ADM SS WBC (Bld) [#/Vol] 15.4 103/mcL High 4.5 - 10.8 10^3/mcL AH Workflow SS LABORATORYOrdered By: Krysten Hinojosa on [...] 12-02-2023 Magnesium [Mass/Vol] 1.9 mg/dL Normal 1.6-2.4 [facility] ([place]) Comment on above: Performed By: #### B MP, ANEU, GFR, ADIFF, CBC #### [address] [address] No Panel Informationon 12-01 Microscopic examination of blood, culture Culture has been received in lab and is no growth to date. Routine cultures are held for 5 days. [facility] Work Phone: PHOSon 12-02-2023 Phosphate [Mass/Vol] 4.1 mg/dL Normal 2.4-5.1 [facility] ([place]) Comment on above: Result Comment: No te - New Reference Range in effect 20 Performed By: #### B MP, ANEU, GFR, ADIFF, CBC #### [address] [address] TROPHSon 12-02-2023 High Sensitivity Troponin I 4 ng/L Normal 0-34 [facility] ([place] Comment on above: Result Comment: High Sensitive Troponin I Reference Ranges: Female: 0-34 ng/L Male: 0-54 ng/L Testing performed on [employer] analyzer using direct chemiluminescent technology. Performed By: #### B MP, ANEU, GFR, ADIFF, CBC #### [place] [address] VALPRon 12-02-2023 LDose Valproic Acid: See eMAR Normal [facility] ([place]) Comment on above: Performed By: #### B MP, ANEU, GFR, ADIFF, CBC #### [place] [address] Valproic Acid Lvl 70.1 mcg/mL Normal 50.0-130.0 [facility] ([place]) Comment on above: Performed By: #### B MP, ANEU, GFR, ADIFF, CBC #### [place] [address] .Auto Diffon 12-01-2023 Basophil, Absolute 0.1 10 3/mcL Normal 0.0-0.3 [facility] ([place]) Comment on above: Performed By: #### B MP, ANEU, GFR, ADIFF, CBC #### [place] [address] Basophils/100 WBC (Bld) 0.7 % Normal 0.0-2.5 [facility] ([place] Comment on above: Performed By: #### B MP, ANEU, GFR, ADIFF, CBC #### [place] [address] Eosinophil, Absolute 0.2 10 3/mcL Normal 0.0-0.7 [facility] ([place]) Comment on above: Performed By: #### B MP, ANEU, GFR, ADIFF, CBC #### [place] [address] Eosinophils/100 WBC (Bld) 1.3 % Normal 0.0-6.0 [facility] ([place] Comment on above: Performed By: #### B MP, ANEU, GFR, ADIFF, CBC #### [place] [address] Lymphocyte, Absolute 4.7 10 3/mcL High 0.9-4.3 [facility] ([place]) Comment on above: Performed By: #### B MP, ANEU, GFR, ADIFF, CBC #### [address] [address] Lymphocytes/100 WBC (Bld) 34.1 % Normal 20.0-40.0 [facility] ([place] Comment on above: Performed By: #### B MP, ANEU, GFR, ADIFF, CBC #### [address] [address] Monocyte, Absolute 1.1 10 3/mcL Normal 0.1-1.4 [facility] ([place]) Comment on above: Performed By: #### B MP, ANEU, GFR, ADIFF, CBC #### [address] [address] Monocytes/100 WBC (Bld) 8.0 % Normal 2.0-13.0 [facility] [place] Comment on above: Performed By: #### B MP, ANEU, GFR, ADIFF, CBC #### [address] [address] Neutrophils/100 WBC (Bld) 55.9 % Normal 50.0-75.0 [facility] [place] Comment on above: Performed By: #### B MP, ANEU, GFR, ADIFF, CBC #### [address] [address] .GFRon 12-01-2023 GFR >60 Normal [facility] ([place] Comment on above: Result Comment: GFR Population [...] B MP, ANEU, GFR, ADIFF, CBC #### [address] [address] GFR Non- >60 Normal [facility] [place] Comment on above: Result Comment: GFR Population [...] B MP, ANEU, GFR, ADIFF, CBC #### [address] [address] .MDWon 12-01-2023 Monocyte Distribution Width 17.84 Normal 0.00-20.00 [facility] ([place] Comment on above: Result Comment: For ED adult patients suspected of sepsis, MDW<=20.0 does not rule out sepsis or risk of sepsis Performed By: #### B MP, ANEU, GFR, ADIFF, CBC #### [address] [address] .NEUABSon 12-01-2023 Neutrophil, Absolute 7.7 10 3/mcL Normal 2.3-8.1 [facility] ([place]) Comment on above: Performed By: #### B MP, ANEU, GFR, ADIFF, CBC #### [address] [address] APTTon 12-01-2023 aPTT Coag (Bld) [Time] 29.7 s Normal 25.0-35.0 [facility] [place] Comment on above: Result Comment: For Heparin anticoagulation therapy, the recommended therapeutic range is: 54-77 seconds (APTT Correlation with Anti-Xa therapeutic range of 0.3-0.7 units/ml). PLEASE REFERENCE THE PHARMACY PROTOCOL FOR DOSING. Performed By: #### B MP, ANEU, GFR, ADIFF, CBC #### [place] [address] Heparin dose (APTT) None Normal [facility] ([place]) Comment on above: Performed By: #### B MP, ANEU, GFR, ADIFF, CBC #### [address] [address] BMPon 12-01-2023 BUN/Creatinine Ratio 25.0 ratio High 10.0-22.0 [facility] ([place]) Comment on above: Performed By: #### B MP, ANEU, GFR, ADIFF, CBC #### [place] [address] Calcium [Mass/Vol] 9.7 mg/dL Normal 8.7-10.4 [facility] ([place]) Comment on above: Performed By: #### B MP, ANEU, GFR, ADIFF, CBC #### [place] [address] Chloride [Moles/Vol] 105 mmol/L Normal 98-110 [facility] ([place] Comment on above: Performed By: #### B MP, ANEU, GFR, ADIFF, CBC #### [place] [address] CO2 [Moles/Vol] 29 mmol/L Normal 22-32 [facility] [place] Comment on above: Performed By: #### B MP, ANEU, GFR, ADIFF, CBC #### [place] [address] Creatinine [Mass/Vol] 0.68 mg/dL Normal 0.50-1.20 [facility] ([place] Comment on above: Performed By: #### B MP, ANEU, GFR, ADIFF, CBC #### [place] [address] Electrolyte Balance 10.0 mEq/L Normal 4.0-15.0 [facility] ([place]) Comment on above: Performed By: #### B MP, ANEU, GFR, ADIFF, CBC #### [place] [address] Glucose [Mass/Vol] 104 mg/dL Normal 70-110 [facility] ([place]) Comment on above: Performed By: #### B MP, ANEU, GFR, ADIFF, CBC #### [place] [address] Potassium [Moles/Vol] 3.6 mmol/L Normal 3.5-5.0 [facility] ([place] Comment on above: Performed By: #### B MP, ANEU, GFR, ADIFF, CBC #### [place] [address] Sodium [Moles/Vol] 144 mmol/L Normal 136-145 [facility] ([place]) Comment on above: Performed By: #### B MP, ANEU, GFR, ADIFF, CBC #### [place] [address] Urea nitrogen [Mass/Vol] 17.0 mg/dL Normal 8.0-22.0 [facility] [place] Comment on above: Performed By: #### B MP, ANEU, GFR, ADIFF, CBC #### [place] [address] CBCon 12-01-2023 Erythrocyte distribution width (RBC) [Ratio] 12.6 % Normal 11.5-15.5 [facility] [place] Comment on above: Performed By: #### B MP, ANEU, GFR, ADIFF, CBC #### [place] [address] Hematocrit (Bld) [Volume fraction] 40.6 % Normal 34.0-46.0 [facility] [place] Comment on above: Performed By: #### B MP, ANEU, GFR, ADIFF, CBC #### [place] [address] Hgb 14.0 G/dL Normal 12.0-16.0 [facility] [place] Comment on above: Performed By: #### B MP, ANEU, GFR, ADIFF, CBC #### [place] [address] MCH (RBC) [Entitic mass] 31.2 pg Normal 27.0-33.0 [facility] [place] Comment on above: Performed By: #### B MP, ANEU, GFR, ADIFF, CBC #### [place] [address] MCHC 34.4 G/dL Normal 32.0-36.0 [facility] ([place] Comment on above: Performed By: #### B MP, ANEU, GFR, ADIFF, CBC #### [place] [address] MCV (RBC) [Entitic vol] 90.8 fL Normal 80.0-99.0 [facility] [place] Comment on above: Performed By: #### B MP, ANEU, GFR, ADIFF, CBC #### [place] [address] Platelet 251 10 3/mcL Normal 150-450 [facility] [place] Comment on above: Performed By: #### B MP, ANEU, GFR, ADIFF, CBC #### [place] [address] Platelet mean volume (Bld) [Entitic vol] 9.3 fL Normal 6.6-10.5 [facility] [place] Comment on above: Performed By: #### B MP, ANEU, GFR, ADIFF, CBC #### [place] [address] RBC 4.47 10 6/mcL Normal 4.10-5.30 [facility] [place] Comment on above: Performed By: #### B MP, ANEU, GFR, ADIFF, CBC #### [place] [id number] WBC 13.8 10 3/mcL High 4.5-10.8 [facility] [place] Comment on above: Performed By: #### B MP, ANEU, GFR, ADIFF, CBC #### [place] [address] [address] ANGIOGRAPHY HEAD W/ CONTR Jared 12-01-2023 [...] Sign Date: 12/01/2023 3:57:41 PM Ordering Provider: [facility]) CT ANGIOGRAPHY NECK W/CONTRA STon 12-01-2023 CT ANGIOGRAPHY NECK W/CONTRAST ORIGINAL HISTORY: [...] Sign Date: 12/01/2023 3:53:24 PM Ordering Provider: [facility]) CT HEAD OR BRAIN W/O CONTRAS Ton 12-01-2023 CT HEAD OR BRAIN W/O CONTRAST [...] Date: 12/01/2023 2:59:03 PM Ordering Provider: LAVERN Irizarry [facility] ([place]) DRUGSon 12-01-2023 Acetaminophen [Mass/Vol] ug/mL Low 10.0-20.0 [facility] Comment on above: Performed By: #### B MP, ANEU, GFR, ADIFF, CBC #### [address] [address] Ethanol Level <10.0 Normal [facility] Comment on above: Performed By: #### B MP, ANEU, GFR, ADIFF, CBC #### [address] [address] Salicylate Lvl (ds) <3.0 Low 10.0-25.0 [facility] ([place]) Comment on above: Performed By: #### B MP, ANEU, GFR, ADIFF, CBC #### [address] [address] Serum Drugs screened: See Below Normal [facility] Comment on above: Result Comment: This drug screen is a presumptive screening only. No confirmation will be performed unless requested. Drugs included in the ER serum drug screen are: Threshold Ethanol 10.0 mg/dL Salicylate 2.0 mg/dl Acetaminophen 2.0 mcg/mL Testing has been performed FOR MEDICAL PURPOSES ONLY. Performed By: #### B MP, ANEU, GFR, ADIFF, CBC #### [address] [address] LABORATORYOrdered By: Kieran Sprague on 12-01-2023 Acetaminophen [Mass/Vol] mcg/mL Low 10.0 - 20.0 mcg/mL AH ADM SS Ethanol [Mass/Vol] mg/dL Invalid Interpretation Code AH ADM SS Salicylates [Mass/Vol] mg/dL Low 10.0 - 25.0 mg/dL AH ADM SS Serum Drugs screened: See Below 6 (12/01/23 12:54 PM) Normal AH Chemistry S Comment on above: Interpretive Data: [...] s Normal 25.0 - 35.0 seconds [facility] SS Comment on above: Interpretive Data: F or Heparin anticoagulation therapy, the recommended therapeutic range is: 54-77 seconds (APTT Correlation with Anti-Xa therapeutic range of 0.3-0.7 units/ml). PLEASE REFERENCE THE PHARMACY PROTOCOL FOR DOSING. Heparin dose (APTT) None Normal Coagulation S PT Coag (PPP) [Time] 12.0 s Normal 9.0 - 1 4.4 seconds [facility] SS Comment on above: Interpretive Data: E ffective 01/26/08, Protime results may be affected by some antibiotics (i.e. Ciprofloxacin, Azithromycin, Bactrim) which may potentiate the action of oral anticoagulants, with further increases in Protime/INR. PT International Ratio 1.0 ratio Invalid Interpretation Code [facility] SS Comment on above: Interpretive Data: Logan lassiter [employer] (CHEST, 1991, 102:312S-25S) [...] Chloride [Moles/Vol] 105 mmol/L Normal 98 - 11 0 mEq/L ADM SS CO2 [Moles/Vol] 29 mmol/L Normal 22 - 32 mEq/L AH ADM SS Creatinine [Mass/Vol] 0.68 mg/dL Normal 0.50 - 1.20 mg/dL AH ADM SS Electrolyte Balance 10.0 mEq/L Normal 4.0 - 15 .0 mEq/L AH ADM SS Eosinophils (Bld) [#/Vol] 0.2 103/mcL Normal 0.0 - 0.7 10^3/mcL AH Workflow SS Eosinophils/100 WBC (Bld) 1.3 % Normal 0.0 - 6.0 % AH Workflow SS Erythrocyte distribution width (RBC) [Ratio] 12.6 % Normal 11.5 - 15.5 % AH [...] 104 mg/dL Normal 70 - 110 mg/dL ADM SS Hematocrit (Bld) [Volume fraction] 40.6 [...] 34.4 G/dL Normal 32.0 - 36.0 G/dL Workflow SS MCV (RBC) [Entitic vol] 90.8 fL Normal 80.0 - 99.0 fL Workflow SS Monocyte distribution width Auto (Bld) [Entitic vol] 17.84 1 Normal 0.00 - 20.00 Workflow SS Comment on above: Result Comment: [...] 251 103/mcL Normal 150 - 450 10^3/mcL Workflow SS Potassium [Moles/Vol] 3.6 mmol/L Normal 3.5 - 5.0 mEq/L ADM SS RBC (Bld) [#/Vol] 4.47 106/mcL Normal 4.10 - 5.3 0 10^6/mcL Workflow SS Sodium [Moles/Vol] 144 mmol/L Normal 136 - 145 mEq/L ADM SS Troponin I.cardiac DL <= 0.01 ng/mL [Mass/Vol] 7 ng/L Normal 0 - 34 ng/L ADM SS Comment on above: Interpretive Data: High Sensitive Troponin I Reference Ranges: Female: 0-34 ng/L Male: 0-54 ng/L Testing performed on [employer] analyzer using direct chemiluminescent technology. Urea nitrogen [Mass/Vol] 17.0 mg/dL Normal 8.0 - 22.0 mg/dL ADM SS Urea nitrogen/Creatinine [Mass ratio] 25.0 ratio High 10.0 - 22.0 ratio ADM SS WBC (Bld) [#/Vol] 13.8 103/mcL High 4.5 - 10.8 10^3/mcL Workflow SS PROon 12-01-2023 INR Coag (PPP) [Relative time] 1.0 {INR} Normal [facility] Comment on above: Result Comment: [employer] (CHEST, 1991, 102:312S-25S) recommended therapeutic range for oral anticoagulant therapy is: LOW RISK: Prophylaxis of venous thrombosis INR: 2.0-3.0 Treatment of pulmonary embolism 2.0-3.0 Prevention of systemic embolism 2.0-3.0 HIGH RISK: Mechanical prosthetic valves 2.5-3.5 Performed By: #### B MP, ANEU, GFR, ADIFF, CBC #### [address] [address] PT Coag (PPP) [Time] 12.0 s Normal 9.0-14.4 [facility] ([place]) Comment on above: Result Comment: Effe ctive 01/26/08, Protime results may be affected by some antibiotics (i.e. Ciprofloxacin, Azithromycin, Bactrim) which may potentiate the action of oral anticoagulants, with further increases in Protime/INR. Performed By: #### B MP, ANEU, GFR, ADIFF, CBC #### [address] [address] TROPHSon 12-01-2023 High Sensitivity Troponin I 7 ng/L Normal 0-34 [facility] Comment on above: Result Comment: High Sensitive Troponin I Reference Ranges: Female: 0-34 ng/L Male: 0-54 ng/L Testing performed on [employer] IM analyzer using direct chemiluminescent technology. Performed By: #### B MP, ANEU, GFR, ADIFF, CBC #### [address] [address] XR CHEST 1 VIEWon 12-01-2023 XR CHEST [...] 12/01/2023 1:18:39 PM Ordering Provider: LAVERN Irizarry [facility] PATIENT INSTRUCTIONSon 10-06 Gun Number Authentication Interface Message Text - prescription for prosthesis and office note will be faxed to [facility] - return to see me as needed for prosthetic, therapy, or equipment needs Normal Provider Locations PROGRESS NOTESon 10-07-2023 Gun Number Authentication Interface Message Text NEW PATIENT PROSTHETICS VISIT 10/07/2023 TELEHEALTH Pardeep Mark : 1965 ASSESSMENT Encounter Diagnoses Name Primary? Acquired absence of left hip Yes Patient last minute cancellation for telehealth prosthetics visit with [facility]. Will attempt to reschedule. Electronically signed by: Jordy Quinteros MD, 10/07/2023 11:08 AM Normal [facility] CNPN Telephone ([id number]) -------- PARDEEP MARK ([id number]) 1965 F Date Time Provider Department 08/06/23 CAROL GAMEZ NE50MN During your visit today, we recorded the following information about you: Shanta Abreu 08/06/2023 2:04 PM Addendum ORDERS Person requesting order: Pardeep Mark Phone number: [phone] Order being requested: [facility] lab order Facility: [facility] Patient of Mando Quiñones, RN 08/06/2023 3:10 [...] Date Reviewed: 07/25/2023 Reviewed by: Ann Jones APRN.[employer] - Fully Assessed Reason for Visit: Orders [681] Cmt: Lab orders Primary Visit Diagnosis:Convulsions, unspecified convulsion type (HCC) [R56.9] Order(s):VALPRO AC/DEPAK FREE [SQVPAFR] Order #: [id number] FUTURE VALPROIC A/DEPAKENE [SQVPA] Order #: [id number] FUTURE Prescriptions as of 08/07/2023 - divalproex [...] Status:Closed by MANDO PALACIO on 08/07/23 Normal [facility] CBC,PLATELETSon 05-13-2023 Hematocrit (Bld) [Volume fraction] 41.2 % Normal 34.9-44.3 [facility] Comment on above: Performed By: #### P TT, PTISTR #### [facility] (DEFAULT) [address] [place] [address] 43571 Hemoglobin (Bld) [Mass/Vol] 13.6 g/dL Normal 11.4-15.2 [facility] Comment on above: Performed By: #### P TT, PTISTR #### [facility] (DEFAULT) [address] [place] [address] 14687 MCV (RBC) [Entitic vol] 91.6 fL Normal 79.6-97.7 [facility] Comment on above: Performed By: #### P TT, PTISTR #### [facility] (DEFAULT) [address] [place] [address] 48030 Mean Cell Hgb 30.2 pg Normal 25.9-33.9 [facility] Comment on above: Performed By: #### P TT, PTISTR #### [facility] (DEFAULT) [address] [place] [address] 28431 Mean Cell Hgb Conc 33.0 g/dL Normal 31.4-35.9 [facility] Comment on above: Performed By: #### P TT, PTISTR #### [facility] (DEFAULT) [address] [place] [address] 24818 Platelet mean volume (Bld) [Entitic vol] 10.3 fL Normal 8.5-12.2 [facility] Comment on above: Performed By: #### P TT, PTISTR #### [facility] (DEFAULT) [address] [place] [address] 22926 Platelets (Bld) [#/Vol] 257 10*3/uL Normal 150-393 [facility] Comment on above: Performed By: #### P TT, PTISTR #### [facility] (DEFAULT) [address] [place] [address] 32289 RBC (Bld) [#/Vol] 4.50 10*6/uL Normal 3.91-5.04 [facility] Comment on above: Performed By: #### P TT, PTISTR #### [facility] (DEFAULT) [address] [place] [address] 50582 RBC Distribution 12.2 % Normal 10.8-14.9 [facility] Comment on above: Performed By: #### P TT, PTISTR #### [facility] (DEFAULT) [address] [place] [address] WBC (Bld) [#/Vol] 11.49 10*3/uL High 3.99-11.19 [facility] Comment on above: Performed By: #### P TT, PTISTR #### [facility] (DEFAULT) [address] [place] [address] Erythrocyte distribution width (RBC) [Ratio] 12.2 % 10.8 - 14.9 % [facility] Hematocrit (Bld) [Volume fraction] 41.2 % 34.9 - 44.3 % [facility] Hemoglobin (Bld) [Mass/Vol] 13.6 g/dL 11.4 - 15.2 g/dL [facility] Interpretation and review of laboratory results Abnormal [facility] MCH (RBC) [Entitic mass] 30.2 pg 25.9 - 33.9 pg [facility] MCHC (RBC) [Mass/Vol] 33.0 g/dL 31.4 - 35.9 g/dL [facility] MCV (RBC) [Entitic vol] 91.6 fL 79.6 - 97.7 fL [facility] Platelet mean volume (Bld) [Entitic vol] 10.3 fL 8.5 - 12.2 fL [facility] Platelets (Bld) [#/Vol] 257 10*3/uL 150 - 393 K/uL [facility] RBC (Bld) [#/Vol] 4.50 10*6/uL [facility] WBC (Bld) [#/Vol] 11.49 10*3/uL High 3.99 - 11 .19 K/uL [facility] CBC,PLATELETSon 05-12-2023 Hematocrit (Bld) [Volume fraction] 39.3 % Normal 34.9-44.3 [facility] Comment on above: Performed By: #### P TT, PTISTR #### [facility] (DEFAULT) [address] [place] [address] 20692 Hemoglobin (Bld) [Mass/Vol] 13.1 g/dL Normal 11.4-15.2 [facility] Comment on above: Performed By: #### P TT, PTISTR #### [facility] (DEFAULT) [address] [place] [address] 85780 MCV (RBC) [Entitic vol] 90.6 fL Normal 79.6-97.7 [facility] Comment on above: Performed By: #### P TT, PTISTR #### [facility] (DEFAULT) [address] [place] [address] 34491 Mean Cell Hgb 30.2 pg Normal 25.9-33.9 [facility] Comment on above: Performed By: #### P TT, PTISTR #### [facility] (DEFAULT) [address] [place] [address] 79889 Mean Cell Hgb Conc 33.3 g/dL Normal 31.4-35.9 [facility] Comment on above: Performed By: #### P TT, PTISTR #### [facility] (DEFAULT) [address] [place] [address] 39567 Platelet mean volume (Bld) [Entitic vol] 10.2 fL Normal 8.5-12.2 [facility] Comment on above: Performed By: #### P TT, PTISTR #### [facility] (DEFAULT) [address] [place] [address] 53503 Platelets (Bld) [#/Vol] 237 10*3/uL Normal 150-393 [facility] Comment on above: Performed By: #### P TT, PTISTR #### [facility] (DEFAULT) [address] [place] [address] 50221 RBC (Bld) [#/Vol] 4.34 10*6/uL Normal 3.91-5.04 [facility] Comment on above: Performed By: #### P TT, PTISTR #### [facility] (DEFAULT) [address] [place] [address] 70879 RBC Distribution 12.0 % Normal 10.8-14.9 [facility] Comment on above: Performed By: #### P TT, PTISTR #### [facility] (DEFAULT) [address] [place] [address] 53514 WBC (Bld) [#/Vol] 8.30 10*3/uL Normal 3.99-11.19 [facility] Comment on above: Performed By: #### P TT, PTISTR #### [facility] (DEFAULT) [address] [place] [address] 21206 Erythrocyte distribution width (RBC) [Ratio] 12.0 % 10.8 - 14.9 % [facility] Hematocrit (Bld) [Volume fraction] 39.3 % 34.9 - 44.3 % [facility] Hemoglobin (Bld) [Mass/Vol] 13.1 g/dL 11.4 - 15.2 g/dL [facility] Interpretation and review of laboratory results Normal [facility] MCH (RBC) [Entitic mass] 30.2 pg 25.9 - 33.9 pg [facility] MCHC (RBC) [Mass/Vol] 33.3 g/dL 31.4 - 35.9 g/dL [facility] MCV (RBC) [Entitic vol] 90.6 fL 79.6 - 97.7 fL [facility] Platelet mean volume (Bld) [Entitic vol] 10.2 fL 8.5 - 12.2 fL [facility] Platelets (Bld) [#/Vol] 237 10*3/uL 150 - 393 K/uL [facility] RBC (Bld) [#/Vol] 4.34 10*6/uL [facility] WBC (Bld) [#/Vol] 8.30 10*3/uL 3.99 - 11. 19 K/uL [facility] CHEM 7 (LYTES,BUN,CREA,GLUC) on 05-12-2023 Anion gap [Moles/Vol] 13 mmol/L Normal 7-17 [facility] Comment on above: Performed By: #### P TT, PTISTR #### [facility] (DEFAULT) [address] [place] [address] 16587 Chloride [Moles/Vol] 106 mmol/L Normal 98-108 [facility] Comment on above: Performed By: #### P TT, PTISTR #### [facility] (DEFAULT) [address] [place] [address] 45996 CO2 [Moles/Vol] 27 mmol/L Normal 21-31 [facility] Comment on above: Performed By: #### P TT, PTISTR #### [facility] (DEFAULT) [address] [place] [address] 07530 Creatinine [Mass/Vol] 0.57 mg/dL Normal 0.50-1.20 [facility] Comment on above: Performed By: #### P TT, PTISTR #### [facility] (DEFAULT) [address] [place] [address] 46664 eGFR, CKD-EPI, Female > Normal >=60 [facility] Comment on above: Result Comment: Repo rted eGFR is based on the CKD-EPI 2020 equation using creatinine, age, and sex. Performed By: #### P TT, PTISTR #### [facility] (DEFAULT) [address] [place] [address] 98980 Glucose [Mass/Vol] 95 mg/dL Normal 70-99 [facility] Comment on above: Performed By: #### P TT, PTISTR #### [facility] (DEFAULT) [address] [place] [address] 61991 Osmolality [Osmolality] 294 mosm/kg Normal 278-305 [facility] Comment on above: Performed By: #### P TT, PTISTR #### [facility] (DEFAULT) [address] [place] [address] 03474 Potassium [Moles/Vol] 3.8 mmol/L Normal 3.5-5.0 [facility] Comment on above: Performed By: #### P TT, PTISTR #### [facility] (DEFAULT) [address] [place] [address] 60962 Sodium [Moles/Vol] 142 mmol/L Normal 135-145 [facility] Comment on above: Performed By: #### P TT, PTISTR #### [facility] (DEFAULT) [address] [place] [address] Urea nitrogen [Mass/Vol] 7 mg/dL Normal 7-25 [facility] Comment on above: Performed By: #### P TT, PTISTR #### [facility] (DEFAULT) [address] [place] [address] 01524 Urea nitrogen/Creatinine [Mass ratio] 12 mg/mg Normal [facility] Comment on above: Performed By: #### P TT, PTISTR #### [facility] (DEFAULT) [address] [place] [address] 41053 Anion gap [Moles/Vol] 13 mmol/L 7 - 17 mmol/L [facility] Chloride [Moles/Vol] 106 mmol/L 98 - 10 8 mmol/L [facility] CO2 [Moles/Vol] 27 mmol/L 21 - 31 mmol/L [facility] Creatinine [Mass/Vol] 0.57 mg/dL 0.50 - 1.20 mg/dL [facility] eGFR, CKD-EPI, Female - PINF [facility] Comment on above: Reported eGFR is bas ed on the CKD-EPI 2020 equation using creatinine, age, and sex. Glucose [Mass/Vol] 95 mg/dL 70 - 99 mg/dL [facility] Osmolality Calc [Osmolality] 294 [facility] Potassium [Moles/Vol] 3.8 mmol/L 3.5 - 5.0 mmol/L [facility] Sodium [Moles/Vol] 142 mmol/L 135 - 145 mmol/L [facility] Urea nitrogen [Mass/Vol] 7 mg/dL 7 - 25 mg/dL [facility] Urea nitrogen/Creatinine [Mass ratio] 12 [facility]-12-2023 [facility] VALPROIC ACID, TOTALon 05-12 Valproic Acid 28 mcg/mL Normal Therapeutic Range: 50-120 mcg/mL [facility] Comment on above: Order Comment: Pleas e draw level before next dose (4th dose) Performed By: #### P TT, PTISTR #### [facility] (DEFAULT) [address] [place] [address] 59342 VALPROIC ACID, TOTALOrdered By: Caprice Riddle on 05-12-2023 Interpretation and review of laboratory results Normal [facility] Valproate [Mass/Vol] 28 ug/mL [facility] CBC,PLATELETSon 05-11-2023 Hematocrit (Bld) [Volume fraction] 38.2 % Normal 34.9-44.3 [facility] Comment on above: Performed By: #### P TT, PTISTR #### [facility] (DEFAULT) [address] [place] [address] 21968 Hemoglobin (Bld) [Mass/Vol] 12.9 g/dL Normal 11.4-15.2 [facility] Comment on above: Performed By: #### P TT, PTISTR #### [facility] (DEFAULT) [address] [place] [address] 98794 MCV (RBC) [Entitic vol] 91.8 fL Normal 79.6-97.7 [facility] Comment on above: Performed By: #### P TT, PTISTR #### [facility] (DEFAULT) [address] [place] [address] 19440 Mean Cell Hgb 31.0 pg Normal 25.9-33.9 [facility] Comment on above: Performed By: #### P TT, PTISTR #### [facility] (DEFAULT) [address] [place] [address] 46219 Mean Cell Hgb Conc 33.8 g/dL Normal 31.4-35.9 [facility] Comment on above: Performed By: #### P TT, PTISTR #### [facility] (DEFAULT) [address] [place] [address] 68582 Platelet mean volume (Bld) [Entitic vol] 10.5 fL Normal 8.5-12.2 [facility] Comment on above: Performed By: #### P TT, PTISTR #### [facility] (DEFAULT) [address] [place] [address] 99533 Platelets (Bld) [#/Vol] 236 10*3/uL Normal 150-393 [facility] Comment on above: Performed By: #### P TT, PTISTR #### [facility] (DEFAULT) [address] [place] [address] 26066 RBC (Bld) [#/Vol] 4.16 10*6/uL Normal 3.91-5.04 [facility] Comment on above: Performed By: #### P TT, PTISTR #### [facility] (DEFAULT) [address] [place] [address] 10262 RBC Distribution 12.2 % Normal 10.8-14.9 [facility] Comment on above: Performed By: #### P TT, PTISTR #### [facility] (DEFAULT) [address] [place] [address] 98814 WBC (Bld) [#/Vol] 10.81 10*3/uL Normal 3.99-11.19 [facility] Comment on above: Performed By: #### P TT, PTISTR #### [facility] (DEFAULT) [address] [place] [address] 56780 Erythrocyte distribution width (RBC) [Ratio] 12.2 % 10.8 - 14.9 % [facility] Hematocrit (Bld) [Volume fraction] 38.2 % 34.9 - 44.3 % [facility] Hemoglobin (Bld) [Mass/Vol] 12.9 g/dL 11.4 - 15.2 g/dL [facility] Interpretation and review of laboratory results Normal [facility] MCH (RBC) [Entitic mass] 31.0 pg 25.9 - 33.9 pg [facility] MCHC (RBC) [Mass/Vol] 33.8 g/dL 31.4 - 35.9 g/dL [facility] MCV (RBC) [Entitic vol] 91.8 fL 79.6 - 97.7 fL [facility] Platelet mean volume (Bld) [Entitic vol] 10.5 fL 8.5 - 12.2 fL [facility] Platelets (Bld) [#/Vol] 236 10*3/uL 150 - 393 K/uL [facility] RBC (Bld) [#/Vol] 4.16 10*6/uL [facility] WBC (Bld) [#/Vol] 10.81 10*3/uL 3.99 - 11 .19 K/uL [facility] CHEM 7 (LYTES,BUN,CREA,GLUC) on 05-11-2023 Anion gap [Moles/Vol] 11 mmol/L Normal 7-17 [facility] Comment on above: Performed By: #### P TT, PTISTR #### [facility] (DEFAULT) [address] [address] Chloride [Moles/Vol] 104 mmol/L Normal 98-108 [facility] Comment on above: Performed By: #### P TT, PTISTR #### [facility] (DEFAULT) [address] [place] [address] 60902 CO2 [Moles/Vol] 29 mmol/L Normal 21-31 [facility] Comment on above: Performed By: #### P TT, PTISTR #### [facility] (DEFAULT) [address] [place] [address] 13526 Creatinine [Mass/Vol] 0.63 mg/dL Normal 0.50-1.20 [facility] Comment on above: Performed By: #### P TT, PTISTR #### [facility] (DEFAULT) [address] [place] [address] 83838 eGFR, CKD-EPI, Female > Normal >=60 [facility] Comment on above: Result Comment: Repo rted eGFR is based on the CKD-EPI 2020 equation using creatinine, age, and sex. Performed By: #### P TT, PTISTR #### [facility] (DEFAULT) [address] [place] [address] 82098 Glucose [Mass/Vol] 113 mg/dL High 70-99 [facility] Comment on above: Performed By: #### P TT, PTISTR #### [facility] (DEFAULT) [address] [place] [address] 50948 Osmolality [Osmolality] 293 mosm/kg Normal 278-305 [facility] Comment on above: Performed By: #### P TT, PTISTR #### [facility] (DEFAULT) [address] [place] [address] 78419 Potassium [Moles/Vol] 3.6 mmol/L Normal 3.5-5.0 [facility] Comment on above: Performed By: #### P TT, PTISTR #### [facility] (DEFAULT) [address] [place] [address] 39502 Sodium [Moles/Vol] 140 mmol/L Normal 135-145 [facility] Comment on above: Performed By: #### P TT, PTISTR #### [facility] (DEFAULT) [address] [place] [address] 63449 Urea nitrogen [Mass/Vol] 12 mg/dL Normal 7-25 [facility] Comment on above: Performed By: #### P TT, PTISTR #### [facility] (DEFAULT) [address] [place] [address] 58772 Urea nitrogen/Creatinine [Mass ratio] 19 mg/mg Normal [facility] Comment on above: Performed By: #### P TT, PTISTR #### [facility] (DEFAULT) [address] [place] [address] 12809 Anion gap [Moles/Vol] 11 mmol/L 7 - 17 mmol/L [facility] Chloride [Moles/Vol] 104 mmol/L 98 - 10 8 mmol/L [facility] CO2 [Moles/Vol] 29 mmol/L 21 - 31 mmol/L [facility] Creatinine [Mass/Vol] 0.63 mg/dL 0.50 - 1.20 mg/dL [facility] eGFR, CKD-EPI, Female - PINF [facility] Comment on above: Reported eGFR is bas ed on the CKD-EPI 2020 equation using creatinine, age, and sex. Glucose [Mass/Vol] 113 mg/dL High 70 - 99 mg/dL [facility] Interpretation and review of laboratory results Abnormal [facility] Osmolality Calc [Osmolality] 293 [facility] Potassium [Moles/Vol] 3.6 mmol/L 3.5 - 5.0 mmol/L [facility] Sodium [Moles/Vol] 140 mmol/L 135 - 145 mmol/L [facility] Urea nitrogen [Mass/Vol] 12 mg/dL 7 - 25 mg/dL [facility] Urea nitrogen/Creatinine [Mass ratio] 19 mg/mg [facility] GLUCOSE POCon 05-11-2023 Glucose [Mass/Vol] 99 mg/dL 70 - 99 mg/dL [facility] POC Sample Type CAPBL [facility] Test performed at address of the patient encounter. [facility] HEPATIC FUNCTION PANELon Albumin [Mass/Vol] 3.8 g/dL 3.5 - 5.0 g/dL [facility] ALP [Catalytic activity/Vol] 74 U/L 32 - 126 U/L [facility] ALT [Catalytic activity/Vol] 28 U/L 9 - 48 U/L [facility] AST [Catalytic activity/Vol] 23 U/L 10 - 39 U/L [facility] Bilirubin [Mass/Vol] 0.5 mg/dL NINF - 1.5 mg/dL [facility] Bilirubin.direct [Mass/Vol] 0.1 mg/dL NINF - 0.3 mg/dL [facility] Interpretation and review of laboratory results Normal [facility] Protein [Mass/Vol] 6.5 g/dL 6.4 - 8.3 g/dL [facility] Albumin [Mass/Vol] 3.8 g/dL Normal 3.5-5.0 [facility] Comment on above: Performed By: #### P TT, PTISTR #### [facility] (DEFAULT) [address] [place] [address] ALP [Catalytic activity/Vol] 74 U/L Normal 32-126 [facility] Comment on above: Performed By: #### P TT, PTISTR #### [facility] (DEFAULT) [address] [place] [address] ALT [Catalytic activity/Vol] 28 U/L Normal 9-48 [facility] Comment on above: Performed By: #### P TT, PTISTR #### [facility] (DEFAULT) [address] [place] [address] 50142 AST [Catalytic activity/Vol] 23 U/L Normal 10-39 [facility] Comment on above: Performed By: #### P TT, PTISTR #### [facility] (DEFAULT) [address] [place] [address] Bilirubin [Mass/Vol] 0.5 mg/dL Normal <1.5 [facility] Comment on above: Performed By: #### P TT, PTISTR #### [facility] (DEFAULT) [address] [place] [address] Bilirubin.indirect [Mass/Vol] 0.1 mg/dL Normal <0.3 [facility] Comment on above: Performed By: #### P TT, PTISTR #### [facility] (DEFAULT) [address] [place] [address] Protein [Mass/Vol] 6.5 g/dL Normal 6.4-8.3 [facility] Comment on above: Performed By: #### P TT, PTISTR #### [facility] (DEFAULT) [address] [place] [address] 00601 LAVENDER TOP TUBEon 05-11-20 [facility] URINALYSIS REFLEX TO CULTURE PERFORMABLEon 05-11-2023 Appearance (U) Clear Normal Clear [facility] Comment on above: Order Comment: Three serum separators are necessary for this test. Lab accession under [id number] Performed By: #### L [id number] #### [facility] (DEFAULT) [address] [place] [address] 78273 Bacteria ABSENT Normal ABSENT [facility] Comment on above: Order Comment: Three serum separators are necessary for this test. Lab accession under [id number] Performed By: #### L [id number] #### [facility] (DEFAULT) [address] [place] [address] 17909 Blood Urine Negative Normal Negative [facility] Comment on above: Order Comment: Three serum separators are necessary for this test. Lab accession under [id number] Performed By: #### L [id number] #### [facility] (DEFAULT) [address] [place] [address] 14254 Color (U) Yellow Normal Yellow [facility] Comment on above: Order Comment: Three serum separators are necessary for this test. Lab accession under [id number] Performed By: #### L [id number] #### [facility] (DEFAULT) [address] [place] [address] 85018 Glucose Ql (U) Negative Normal Negative [facility] Comment on above: Order Comment: Three serum separators are necessary for this test. Lab accession under [id number] Performed By: #### L [id number] #### [facility] (DEFAULT) [address] [place] [address] 44851 Ketones Ql (U) Trace Abnormal Negative [facility] Comment on above: Order Comment: Three serum separators are necessary for this test. Lab accession under [id number] Performed By: #### L [id number] #### [facility] (DEFAULT) [address] [place] [address] 20133 Leukocyte esterase Test strip Ql (U) Negative Normal Negative [facility] Comment on above: Order Comment: Three serum separators are necessary for this test. Lab accession under [id number] Performed By: #### L [id number] #### [facility] (DEFAULT) [address] [place] [address] 79099 Nitrites Urine Negative Normal Negative [facility] Comment on above: Order Comment: Three serum separators are necessary for this test. Lab accession under [id number] Performed By: #### L [id number] #### [facility] (DEFAULT) [address] [place] [address] 91730 pH (U) 5.5 [pH] Normal 5.0-7.0 [facility] Comment on above: Order Comment: Three serum separators are necessary for this test. Lab accession under [id number] Performed By: #### L [id number] #### [facility] (DEFAULT) [address] [place] [address] 61803 Protein Urine Negative Normal Negative [facility] Comment on above: Order Comment: Three serum separators are necessary for this test. Lab accession under [id number] Performed By: #### L [id number] #### [facility] (DEFAULT) [address] [place] [address] 36842 RBC Urine 0-2 Normal 0-2 [facility] Comment on above: Order Comment: Three serum separators are necessary for this test. Lab accession under [id number] Performed By: #### L [id number] #### [facility] (DEFAULT) [address] [place] [address] 57677 Specific [place] Urine 1.035 Normal 1.001-1.035 [facility] Comment on above: Order Comment: Three serum separators are necessary for this test. Lab accession under [id number] Performed By: #### L [id number] #### [facility] (DEFAULT) [address] [place] [address] 93359 Squamous/Epithelial Cells 0-2/hpf Normal 0-2/hpf, 3-5/hpf = 1+ [facility] Comment on above: Order Comment: Three serum separators are necessary for this test. Lab accession under [id number] Performed By: #### L [id number] #### [facility] (DEFAULT) [address] [address] Urobilinogen Urine 0.2 E.U./dL Normal 0.2 E.U/d L, 1.0 E.U/dL [facility] Comment on above: Order Comment: Three serum separators are necessary for this test. Lab accession under [id number] Performed By: #### L [id number] #### [facility] (DEFAULT) [address] [address] WBC Urine 0 - 5 Normal 0 - 5 [facility] Comment on above: Order Comment: Three serum separators are necessary for this test. Lab accession under [id number] Performed By: #### L [id number] #### [facility] (DEFAULT) [address] [address] Appearance (U) Clear Clear [facility] Bacteria LM Ql (Urine sed) ABSENT ABSENT [facility] Color (U) Yellow Yellow [facility] Epithelial cells.squamous LM Ql (Urine sed) 0-2/hpf 0-2/hpf, 3-5/hpf = 1+ [facility] Glucose Test strip (U) [Mass/Vol] Negative Negative [facility] Interpretation and review of laboratory results Abnormal [facility] Ketones (U) [Mass/Vol] Trace Abnormal Negative [facility] Leukocyte esterase Test strip Ql (U) Negative Negative [facility] Nitrite Ql (U) Negative Negative [facility] pH (U) 5.5 [pH] 5.0 - 7.0 [facility] Protein (U) [Mass/Vol] Negative Negative [facility] RBC (U) [#/Vol] Negative Negative [facility] RBC LM.HPF (Urine sed) [#/Area] 0-2 [facility] Specific gravity (U) [Rel density] 1.035 1.001 - 1.035 [facility] Urobilinogen (U) [Mass/Vol] 0.2 E.U./dL 0.2 E.U/dL, 1.0 E.U/dL [facility] WBC LM.HPF (Urine sed) [#/Area] 0 - 5 [facility] CBC,PLATELETSon 05-10-2023 Hematocrit (Bld) [Volume fraction] 44.2 % Normal 34.9-44.3 [facility] Comment on above: Performed By: #### P TT, PTISTR #### [facility] (DEFAULT) [address] [place] [address] Hemoglobin (Bld) [Mass/Vol] 14.5 g/dL Normal 11.4-15.2 [facility] Comment on above: Performed By: #### P TT, PTISTR #### [facility] (DEFAULT) [address] [place] [address] 37199 MCV (RBC) [Entitic vol] 94.0 fL Normal 79.6-97.7 [facility] Comment on above: Performed By: #### P TT, PTISTR #### [facility] (DEFAULT) [address] [place] [address] 74372 Mean Cell Hgb 30.9 pg Normal 25.9-33.9 [facility] Comment on above: Performed By: #### P TT, PTISTR #### [facility] (DEFAULT) [address] [place] [address] 58135 Mean Cell Hgb Conc 32.8 g/dL Normal 31.4-35.9 [facility] Comment on above: Performed By: #### P TT, PTISTR #### [facility] (DEFAULT) [address] [place] [address] 76368 Platelet mean volume (Bld) [Entitic vol] 10.4 fL Normal 8.5-12.2 [facility] Comment on above: Performed By: #### P TT, PTISTR #### [facility] (DEFAULT) [address] [place] [address] 98105 Platelets (Bld) [#/Vol] 268 10*3/uL Normal 150-393 [facility] Comment on above: Performed By: #### P TT, PTISTR #### [facility] (DEFAULT) [address] [place] [address] 65382 RBC (Bld) [#/Vol] 4.70 10*6/uL Normal 3.91-5.04 [facility] Comment on above: Performed By: #### P TT, PTISTR #### [facility] (DEFAULT) [address] [place] [address] 19401 RBC Distribution 12.0 % Normal 10.8-14.9 [facility] Comment on above: Performed By: #### P TT, PTISTR #### [facility] (DEFAULT) [address] [place] [address] 70485 WBC (Bld) [#/Vol] 12.20 10*3/uL High 3.99-11.19 [facility] Comment on above: Performed By: #### P TT, PTISTR #### [facility] (DEFAULT) [address] [place] [address] 66901 Erythrocyte distribution width (RBC) [Ratio] 12.0 % 10.8 - 14.9 % [facility] Hematocrit (Bld) [Volume fraction] 44.2 % 34.9 - 44.3 % [facility] Hemoglobin (Bld) [Mass/Vol] 14.5 g/dL 11.4 - 15.2 g/dL [facility] Interpretation and review of laboratory results Abnormal [facility] MCH (RBC) [Entitic mass] 30.9 pg 25.9 - 33.9 pg [facility] MCHC (RBC) [Mass/Vol] 32.8 g/dL 31.4 - 35.9 g/dL [facility] MCV (RBC) [Entitic vol] 94.0 fL 79.6 - 97.7 fL [facility] Platelet mean volume (Bld) [Entitic vol] 10.4 fL 8.5 - 12.2 fL [facility] Platelets (Bld) [#/Vol] 268 10*3/uL 150 - 393 K/uL [facility] RBC (Bld) [#/Vol] 4.70 10*6/uL [facility] WBC (Bld) [#/Vol] 12.20 10*3/uL High 3.99 - 11 .19 K/uL [facility] CHEM 7 (LYTES,BUN,CREA,GLUC) on 05-10-2023 Anion gap [Moles/Vol] 17 mmol/L Normal 7-17 [facility] Comment on above: Performed By: #### P TT, PTISTR #### [facility] (DEFAULT) [address] [place] [address] 77716 Chloride [Moles/Vol] 105 mmol/L Normal 98-108 [facility] Comment on above: Performed By: #### P TT, PTISTR #### [facility] (DEFAULT) [address] [place] [address] 96403 CO2 [Moles/Vol] 23 mmol/L Normal 21-31 [facility] Comment on above: Performed By: #### P TT, PTISTR #### [facility] (DEFAULT) [address] [place] [address] 05149 Creatinine [Mass/Vol] 0.77 mg/dL Normal 0.50-1.20 [facility] Comment on above: Performed By: #### P TT, PTISTR #### [facility] (DEFAULT) [address] [place] [address] 07251 GFR/1.73 sq M.predicted among non-blacks MDRD (S/P/Bld) [Vol rate/Area] 89 mL/min/{1.73_m2} Normal >=60 [facility] Comment on above: Result Comment: Repo rted eGFR is based on the CKD-EPI 2020 equation using creatinine, age, and sex. Performed By: #### P TT, PTISTR #### [facility] (DEFAULT) [address] [place] [address] 82802 Glucose [Mass/Vol] 100 mg/dL High 70-99 [facility] Comment on above: Performed By: #### P TT, PTISTR #### [facility] (DEFAULT) [address] [place] [address] 38307 Osmolality [Osmolality] 294 mosm/kg Normal 278-305 [facility] Comment on above: Performed By: #### P TT, PTISTR #### [facility] (DEFAULT) [address] [place] [address] 72666 Potassium [Moles/Vol] 4.0 mmol/L Normal 3.5-5.0 [facility] Comment on above: Performed By: #### P TT, PTISTR #### [facility] (DEFAULT) [address] [place] [address] 43712 Sodium [Moles/Vol] 141 mmol/L Normal 135-145 [facility] Comment on above: Performed By: #### P TT, PTISTR #### [facility] (DEFAULT) [address] [place] [address] 21108 Urea nitrogen [Mass/Vol] 12 mg/dL Normal 7-25 [facility] Comment on above: Performed By: #### P TT, PTISTR #### [facility] (DEFAULT) [address] [place] [address] 18710 Urea nitrogen/Creatinine [Mass ratio] 16 mg/mg Normal [facility] Comment on above: Performed By: #### P TT, PTISTR #### [facility] (DEFAULT) [address] [place] [address] 90340 CHEM 7 (LYTES,BUN,CREA,GLUC) Ordered By: Janna Uribe on 05-10-2023 Anion gap [Moles/Vol] 17 mmol/L 7 - 17 mmol/L [facility] Chloride [Moles/Vol] 105 mmol/L 98 - 10 8 mmol/L [facility] CO2 [Moles/Vol] 23 mmol/L 21 - 31 mmol/L [facility] Creatinine [Mass/Vol] 0.77 mg/dL 0.50 - 1.20 mg/dL [facility] eGFR, CKD-EPI, Female 89 - PINF [facility] Comment on above: Reported eGFR is bas ed on the CKD-EPI 2020 equation using creatinine, age, and sex. Glucose [Mass/Vol] 100 mg/dL High 70 - 99 mg/dL [facility] Interpretation and review of laboratory results Abnormal [facility] Osmolality Calc [Osmolality] 294 [facility] Potassium [Moles/Vol] 4.0 mmol/L 3.5 - 5.0 mmol/L [facility] Sodium [Moles/Vol] 141 mmol/L 135 - 145 mmol/L [facility] Urea nitrogen [Mass/Vol] 12 mg/dL 7 - 25 mg/dL [facility] Urea nitrogen/Creatinine [Mass ratio] 16 mg/mg [facility] EXTRA MICROon 05-10-2023 [facility] GLUCOSE POCon 05-10-2023 Glucose [Mass/Vol] 107 mg/dL High 70 - 99 mg/dL [facility] Interpretation and review of laboratory results Abnormal [facility] POC Sample Type CAPBL [facility] Test performed at address of the patient encounter. [facility] HEP B SURFACE AG-Alden 04-14 Hepatitis B Surface Ag-Stat Negative Normal Negative [facility] Comment on above: Order Comment: Three serum separators are necessary for this test. Lab accession under [id number] Performed By: #### L [id number] #### [facility] (DEFAULT) [address] [place] [address] HEPATITIS C ANTIBODYon 05-10 Hepatitis C Antibody Negative Normal Negative [facility] Comment on above: Order Comment: Three serum separators are necessary for this test.Lab accession under [id number] Performed By: #### P TT, PTISTR #### [facility] (DEFAULT) [address] [address] HIV 1 AND 2 ANTIBODIES/P24 A NTIGENon 05-10-2023 HIV-1/HIV-2 Ab With p24 Antigen Non-Reactive Normal Non Reactive [facility] Comment on above: Order Comment: Three serum separators are necessary for this test.Lab accession under [id number] Performed By: #### P TT, PTISTR #### [facility] (DEFAULT) [address] [address] LEVETIRACETAM LEVELon 2022 levETIRAcetam [Mass/Vol] 34.5 ug/mL [facility] Comment on above: ADDITIONAL INFORMATION This test was developed and its performance characteristics determined by [facility] in a manner consistent with CLIA requirements. This test has not been cleared or approved by the U.S. Food and Drug Administration. Test Performed by: [facility] [place] [address] Vegetable Specker: Scottie Bryan M.D. Ph.D.; CLIA# [id number] [facility] LT BLUE TOP TUBEon 3 [facility] RAPID HIV-1/HIV-2 AB WITH P2 4 ANTIGENon 05-10-2023 Rapid HIV-1/HIV-2 AB Non-Reactive Normal Non Reactive [facility] Comment on above: Order Comment: Three serum separators are necessary for this test.Lab accession under [id number] Performed By: #### P TT, PTISTR #### [facility] (DEFAULT) [address] [address] Rapid P24 Antigen Non-Reactive Normal Non Reactive [facility] Comment on above: Order Comment: Three serum separators are necessary for this test.Lab accession under [id number] Performed By: #### P TT, PTISTR #### [facility] (DEFAULT) [address] [address] URINE CULTUREOrdered By: Liz Palmer on 05-10-2023 Bacteria identified Cx Nom (Unsp spec) Growth [facility] Bacteria identified Cx Nom (Unsp spec) 10,000-50,000 CFU/mL Mixed microbes [facility] Comment on above: Multiple bacterial m orphotypes present. Suggest appropriate recollection if clinically indicated. [facility] CALCIUMon 05-09-2023 Calcium [Mass/Vol] 8.1 mg/dL Low 8.6-10.5 [facility] Comment on above: Performed By: #### P TT, PTISTR #### [facility] (DEFAULT) [address] [address] Calcium [Mass/Vol] 8.1 mg/dL Low 8.6 - 10. 5 mg/dL [facility] CBC AND ELECTRONIC DIFFon Basophils (Bld) [#/Vol] 0.08 10*3/uL Normal 0.00-0.15 [facility] Comment on above: Performed By: #### L [id number] #### [facility] (DEFAULT) [address] [address] Basophils/100 WBC (Bld) 0.7 % Normal [facility] Comment on above: Performed By: #### L [id number] #### [facility] (DEFAULT) [address] [address] DIFF STATUS Electronic Differential Normal [facility] Comment on above: Performed By: #### L [id number] #### [facility] (DEFAULT) [address] [address] Eosinophils (Bld) [#/Vol] 0.16 10*3/uL Normal 0.00-0.42 [facility] Comment on above: Performed By: #### L [id number] #### [facility] (DEFAULT) [address] [address] Eosinophils/100 WBC (Bld) 1.3 % Normal [facility] Comment on above: Performed By: #### L [id number] #### [facility] (DEFAULT) [address] [address] Hematocrit (Bld) [Volume fraction] 37.5 % Normal 34.9-44.3 [facility] Comment on above: Performed By: #### L [id number] #### [facility] (DEFAULT) [address] [address] Hemoglobin (Bld) [Mass/Vol] 12.9 g/dL Normal 11.4-15.2 [facility] Comment on above: Performed By: #### L [id number] #### [facility] (DEFAULT) [address] [address] Immature Grans % 0.4 % Normal [facility] Comment on above: Performed By: #### L [id number] #### [facility] (DEFAULT) [address] [address] Immature Grans Absolute 0.05 K/uL Normal <=0.08 [facility] Comment on above: Performed By: #### L [id number] #### [facility] (DEFAULT) [address] [address] Lymphocytes (Bld) [#/Vol] 3.75 10*3/uL High 1.16-3.51 [facility] Comment on above: Performed By: #### L [id number] #### [facility] (DEFAULT) [address] [address] Lymphocytes/100 WBC (Bld) 30.7 % Normal [facility] Comment on above: Performed By: #### L [id number] #### [facility] (DEFAULT) [address] [address] MCV (RBC) [Entitic vol] 90.8 fL Normal 79.6-97.7 [facility] Comment on above: Performed By: #### L [id number] #### [facility] (DEFAULT) [address] [place] [address] 41550 Mean Cell Hgb 31.2 pg Normal 25.9-33.9 [facility] Comment on above: Performed By: #### L [id number] #### [facility] (DEFAULT) [address] [place] [address] 69861 Mean Cell Hgb Conc 34.4 g/dL Normal 31.4-35.9 [facility] Comment on above: Performed By: #### L [id number] #### [facility] (DEFAULT) [address] [place] [address] 90163 Monocytes (Bld) [#/Vol] 0.98 10*3/uL High 0.22-0.87 [facility] Comment on above: Performed By: #### L [id number] #### [facility] (DEFAULT) [address] [address] Monocytes/100 WBC (Bld) 8.0 % Normal [facility] Comment on above: Performed By: #### L [id number] #### [facility] (DEFAULT) [address] [address] Nucleated RBC 0.0 /100 WBC Normal <=0.2 [facility] Comment on above: Performed By: #### L [id number] #### [facility] (DEFAULT) [address] [place] [address] 85205 Platelet mean volume (Bld) [Entitic vol] 10.4 fL Normal 8.5-12.2 [facility] Comment on above: Performed By: #### L [id number] #### [facility] (DEFAULT) [address] [place] [address] 35213 Platelets (Bld) [#/Vol] 242 10*3/uL Normal 150-393 [facility] Comment on above: Performed By: #### L [id number] #### [facility] (DEFAULT) [address] [place] [address] 04307 RBC (Bld) [#/Vol] 4.13 10*6/uL Normal 3.91-5.04 [facility] Comment on above: Performed By: #### L [id number] #### [facility] (DEFAULT) [address] [place] [address] 44602 RBC Distribution 11.9 % Normal 10.8-14.9 [facility] Comment on above: Performed By: #### L [id number] #### [facility] (DEFAULT) [address] [place] [address] 12191 Segs + Bands Auto 58.9 % Normal [facility] Comment on above: Performed By: #### L [id number] #### [facility] (DEFAULT) [address] [place] [address] 79507 Segs + Bands,Absolute Auto 7.20 K/uL Normal 1.64-7.28 [facility] Comment on above: Performed By: #### L [id number] #### [facility] (DEFAULT) [address] [place] [address] 92180 WBC (Bld) [#/Vol] 12.22 10*3/uL High 3.99-11.19 [facility] Comment on above: Performed By: #### L [id number] #### [facility] (DEFAULT) [address] [place] [address] 28951 CHM 7 - EDon 05-09-2023 Anion gap [Moles/Vol] 9 mmol/L Normal 7-17 [facility] Comment on above: Performed By: #### P TT, PTISTR #### [facility] (DEFAULT) [address] [place] [address] 36602 Chloride [Moles/Vol] 104 mmol/L Normal 98-108 [facility] Comment on above: Performed By: #### P TT, PTISTR #### [facility] (DEFAULT) [address] [place] [address] 46300 CO2 [Moles/Vol] 25 mmol/L Normal 21-31 [facility] Comment on above: Performed By: #### P TT, PTISTR #### [facility] (DEFAULT) [address] [place] [address] 12019 Creatinine [Mass/Vol] 0.61 mg/dL Normal 0.50-1.20 [facility] Comment on above: Performed By: #### P TT, PTISTR #### [facility] (DEFAULT) [address] [place] [address] 23075 eGFR, CKD-EPI, Female > Normal >=60 [facility] Comment on above: Result Comment: Repo rted eGFR is based on the CKD-EPI 2020 equation using creatinine, age, and sex. Performed By: #### P TT, PTISTR #### [facility] (DEFAULT) [address] [place] [address] 99835 Glucose [Mass/Vol] 102 mg/dL High 70-99 [facility] Comment on above: Performed By: #### P TT, PTISTR #### [facility] (DEFAULT) [address] [place] [address] 98532 Osmolality [Osmolality] 280 mosm/kg Normal 278-305 [facility] Comment on above: Performed By: #### P TT, PTISTR #### [facility] (DEFAULT) [address] [place] [address] 32688 Potassium [Moles/Vol] 3.6 mmol/L Normal 3.5-5.0 [facility] Comment on above: Performed By: #### P TT, PTISTR #### [facility] (DEFAULT) [address] [place] [address] 76305 Sodium [Moles/Vol] 134 mmol/L Low 135-145 [facility] Comment on above: Performed By: #### P TT, PTISTR #### [facility] (DEFAULT) [address] [place] [address] 89669 Urea nitrogen [Mass/Vol] 10 mg/dL Normal 7-25 [facility] Comment on above: Performed By: #### P TT, PTISTR #### [facility] (DEFAULT) [address] [place] [address] Urea nitrogen/Creatinine [Mass ratio] 16 mg/mg Normal [facility] Comment on above: Performed By: #### P TT, PTISTR #### [facility] (DEFAULT) [address] [place] [address] Anion gap [Moles/Vol] 9 mmol/L 7 - 17 mmol/L [facility] Chloride [Moles/Vol] 104 mmol/L 98 - 10 8 mmol/L [facility] CO2 [Moles/Vol] 25 mmol/L 21 - 31 mmol/L [facility] Creatinine [Mass/Vol] 0.61 mg/dL 0.50 - 1.20 mg/dL [facility] eGFR, CKD-EPI, Female - PINF [facility] Comment on above: Reported eGFR is bas ed on the CKD-EPI 2020 equation using creatinine, age, and sex. Glucose [Mass/Vol] 102 mg/dL High 70 - 99 mg/dL [facility] Interpretation and review of laboratory results Abnormal [facility] Osmolality Calc [Osmolality] 280 [facility] Potassium [Moles/Vol] 3.6 mmol/L 3.5 - 5.0 mmol/L [facility] Sodium [Moles/Vol] 134 mmol/L Low 135 - 145 mmol/L [facility] Urea nitrogen [Mass/Vol] 10 mg/dL 7 - 25 mg/dL [facility] Urea nitrogen/Creatinine [Mass ratio] 16 mg/mg [facility] CKon 05-09-2023 CK [Catalytic activity/Vol] 63 U/L Normal 30-184 [facility] Comment on above: Performed By: #### P TT, PTISTR #### [facility] (DEFAULT) [address] [place] [address] CK [Catalytic activity/Vol] 63 U/L 30 - 184 U/L [facility] CT CEREBRAL PERFUSION ANALYS Anthony 05-09-2023 CT [...] have reviewed and approved this report. Normal [facility] CT STROKE HEAD-STROKE ALERT ONLYon 05-09-2023 CT [...] have reviewed and approved this report. Normal [facility] GLUCOSE POCon 05-09-2023 Glucose [Mass/Vol] 108 mg/dL High 70 - 99 mg/dL [facility] Interpretation and review of laboratory results Abnormal [facility] POC Sample Type CAPBL [facility] Test performed at address of the patient encounter. [facility] Glucose [Mass/Vol] 182 mg/dL High 70 - 99 mg/dL [facility] Interpretation and review of laboratory results Abnormal [facility] POC Sample Type CAPBL [facility] Test performed at address of the patient encounter. [facility] HEMOGLOBIN A1Con 05-09-2023 Average glucose Estimated from glycated hemoglobin (Bld) [Mass/Vol] 134 mg/dL [facility] HbA1c (Bld) [Mass fraction] 6.3 % High 4.7 - 5.6 % [facility] Interpretation and review of laboratory results Abnormal [facility] Glucose [Mass/Vol] 134 mg/dL Normal [facility] Comment on above: Performed By: #### L [id number] #### [facility] (DEFAULT) [address] [address] Hemoglobin A1C HPLC 6.3 % High 4.7-5.6 [facility] Comment on above: Performed By: #### L [id number] #### [facility] (DEFAULT) [address] [address] HEPATIC FUNCTION PANELon Albumin [Mass/Vol] 3.6 g/dL Normal 3.5-5.0 [facility] Comment on above: Performed By: #### P TT, PTISTR #### [facility] (DEFAULT) [address] [address] ALP [Catalytic activity/Vol] 71 U/L Normal 32-126 [facility] Comment on above: Performed By: #### P TT, PTISTR #### [facility] (DEFAULT) [address] [place] [address]162 ALT [Catalytic activity/Vol] 19 U/L Normal 9-48 [facility] Comment on above: Performed By: #### P TT, PTISTR #### [facility] (DEFAULT) [address] [place] [address] AST [Catalytic activity/Vol] 20 U/L Normal 10-39 [facility] Comment on above: Performed By: #### P TT, PTISTR #### [facility] (DEFAULT) [address] [place] [address] Bilirubin [Mass/Vol] 0.4 mg/dL Normal <1.5 [facility] Comment on above: Performed By: #### P TT, PTISTR #### [facility] (DEFAULT) [address] [place] [address] Bilirubin.indirect [Mass/Vol] 0.1 mg/dL Normal <0.3 [facility] Comment on above: Performed By: #### P TT, PTISTR #### [facility] (DEFAULT) [address] [place] [address] Protein [Mass/Vol] 6.1 g/dL Low 6.4-8.3 [facility] Comment on above: Performed By: #### P TT, PTISTR #### [facility] (DEFAULT) [address] [place] [address] Albumin [Mass/Vol] 3.6 g/dL 3.5 - 5.0 g/dL [facility] ALP [Catalytic activity/Vol] 71 U/L 32 - 126 U/L [facility] ALT [Catalytic activity/Vol] 19 U/L 9 - 48 U/L [facility] AST [Catalytic activity/Vol] 20 U/L 10 - 39 U/L [facility] Bilirubin [Mass/Vol] 0.4 mg/dL NINF - 1.5 mg/[facility] [Mass/Vol] 0.1 mg/dL NINF - 0.3 mg/dL [facility] Protein [Mass/Vol] 6.1 g/dL Low 6.4 - 8.3 g/dL [facility] HIGH SENSITIVITY TROPONIN I - SINGLE ORDERon 05-09-2023 hs-Troponin I 4 ng/L Normal <34 [facility] Comment on above: Order Comment: Three serum separators are necessary for this test. Lab accession under [id number] Performed By: #### L [id number] #### [facility] (DEFAULT) [address] [address] Interpretation and review of laboratory results Normal [facility] Troponin I.cardiac High sensitivity method [Mass/Vol] 4 ng/L NINF - 34 ng/L [facility] LEVETIRACETAM LEVELon 2022 LEVETIRACETAM LEVEL 34.5 mcg/mL Normal 10.0-40.0 [facility] Comment on above: Order Comment: Pleas e draw level at specified interval PRIOR to dose. Result Comment: ADDITIONAL INFORMATION This test was developed and its performance characteristics determined by [facility] in a manner consistent with CLIA requirements. This test has not been cleared or approved by the U.S. Food and Drug Administration. Test Performed by: [facility] [place] [address] Vegetable Specker: Scottie Bryan M.D. Ph.D.; CLIA# [id number] Performed By: #### Y LEVNH #### [facility] (DEFAULT) [address] [address] LIPID PANEL WITH REFLEX TO M ABE LDLon 05-09-2023 Calculated LDL Cholesterol 89 mg/dL Normal 0-99 [facility] Comment on above: Result Comment: [<10 0 mg/dL: Optimal] [100-129 mg/dL: Near Optimal] [130-159 mg/dL: Borderline High] [160-189 mg/dL: High] [>189 mg/dL: Very High] Performed By: #### L IPDR #### [facility] (DEFAULT) [address] [place] [address] Cholesterol [Mass/Vol] 137 mg/dL Normal <200 [facility] Comment on above: Result Comment: [<20 0 mg/dL: Desirable] [200-239 mg/dL: Borderline High] [>239 mg/dL: High] Performed By: #### L IPDR #### [facility] (DEFAULT) [address] [place] [address] Cholesterol in HDL [Mass/Vol] 29 mg/dL Low >=40 [facility] Comment on above: Result Comment: [<40 mg/dL: Low (High Risk)] [>59 mg/dL: High (Low Risk)] Performed By: #### L IPDR #### [facility] (DEFAULT) [address] [place] [address] Non HDL Cholesterol 108 mg/dL Normal <130 [facility] Comment on above: Performed By: #### L IPDR #### [facility] (DEFAULT) [address] [place] [address] Total Cholesterol/HDL Ratio 4.7 High <4.5 [facility] Comment on above: Performed By: #### L IPDR #### [facility] (DEFAULT) [address] [place] [address] Triglyceride [Mass/Vol] 95 mg/dL Normal <150 [facility] Comment on above: Result Comment: [<15 0 mg/dL: Desirable] [150-199 mg/dL: Borderline] [200-499 mg/dL: High] [>500 mg/dL: Very High] Performed By: #### L IPDR #### [facility] (DEFAULT) [address] [place] [address] Cholesterol [Mass/Vol] 137 mg/dL NINF - 200 mg/dL [facility] Comment on above: [<200 mg/dL: Desirab le] [200-239 mg/dL: Borderline High] [>239 mg/dL: High] Cholesterol in HDL [Mass/Vol] 29 mg/dL Low 40 - PINF mg/dL [facility] Comment on above: [<40 mg/dL: Low (Hig h Risk)] [>59 mg/dL: High (Low Risk)] Cholesterol in HDL [Mass/Vol] 108 mg/dL NINF - 130 mg/dL [facility] Cholesterol in LDL [Mass/Vol] 89 mg/dL 0 - 99 mg/dL [facility] Comment on above: [<100 mg/dL: Optimal ] [100-129 mg/dL: Near Optimal] [130-159 mg/dL: Borderline High] [160-189 mg/dL: High] [>189 mg/dL: Very High] Cholesterol.total/Ch olesterol in HDL [Mass ratio] 4.7 {ratio} High NINF - 4.5 [facility] Interpretation and review of laboratory results Abnormal [facility] Triglyceride [Mass/Vol] 95 mg/dL NINF - 150 mg/dL [facility] Comment on above: [<150 mg/dL: Desirab le] [150-199 mg/dL: Borderline] [200-499 mg/dL: High] [>500 mg/dL: Very High] MAGNESIUMon 05-09-2023 Magnesium [Mass/Vol] 1.8 mg/dL Normal 1.6-2.6 [facility] Comment on above: Performed By: #### P TT, PTISTR #### [facility] (DEFAULT) [address] [place] [address] Magnesium [Mass/Vol] 1.8 mg/dL 1.6 - 2 .6 mg/dL [facility] MR Brain WO contraston 05-09 IMPRESSION: No acute intracranial abnormality. No evidence of acute infarct or intracranial hemorrhage. 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 [facility] Radiology Study observation (narrative) [facility] MR Brain WO contrastOrdered By: Favio Casey on 05-09-2023 [facility] Work Phone: MRI BRAIN WITHOUT CONTRASTon 05-09-2023 [...] infarct in the right basal ganglia. Normal [facility] No Panel Informationon 05-09 [facility] Interpretation and review of laboratory results Normal [facility] Interpretation and review of laboratory results Abnormal [facility] PHOSPHATE, INORGANICon 05-09 Phosphorous 3.3 mg/dL Normal 2.2-4.6 [facility] Comment on above: Performed By: #### P TT, PTISTR #### [facility] (DEFAULT) [address] [place] [address]34 Phosphate [Mass/Vol] 3.3 mg/dL 2.2 - 4 .6 mg/dL [facility] PLATELET COUNTon 05-09-2023 Platelet mean volume (Bld) [Entitic vol] 10.6 fL Normal 8.5-12.2 [facility] Comment on above: Performed By: #### P TT, PTISTR #### [facility] (DEFAULT) [address] [place] [address] Platelets (Bld) [#/Vol] 272 10*3/uL Normal 150-393 [facility] Comment on above: Performed By: #### P TT, PTISTR #### [facility] (DEFAULT) [address] [place] [address] Interpretation and review of laboratory results Normal [facility] Platelet mean volume (Bld) [Entitic vol] 10.6 fL 8.5 - 12.2 fL [facility] Platelets (Bld) [#/Vol] 272 10*3/uL 150 - 393 K/uL [facility] PTINR-STROKEon 05-09-2023 INR Coag (PPP) [Relative time] 1.1 {INR} Normal 0.9-1.1 [facility] Comment on above: Performed By: #### P TT, PTISTR #### [facility] (DEFAULT) [address] [place] [address] PT Coag (PPP) [Time] 14.1 s Normal 11.9-14.2 [facility] Comment on above: Performed By: #### P TT, PTISTR #### [facility] (DEFAULT) [address] [place] [address]68 INR Coag (Bld) [Relative time] 1.1 {INR} 0.9 - 1.1 [facility] Interpretation and review of laboratory results Normal [facility] PT Coag (PPP) [Time] 14.1 s [facility] PTTon 05-09-2023 aPTT Coag (Bld) [Time] 26.1 s Normal 24.0-34.3 [facility] Comment on above: Performed By: #### P TT, PTISTR #### [facility] (DEFAULT) [address] [place] [address] aPTT Coag (PPP) [Time] 26.1 s [facility] Interpretation and review of laboratory results Normal [facility] URINALYSIS REFLEX TO CULTURE PERFORMABLEon 05-09-2023 Appearance (U) Cloudy Abnormal Clear [facility] Comment on above: Order Comment: For i ndwelling catheters, specimen collection is acceptable on catheter day 1 and 2 only. ? Performed By: #### U [id number] #### [facility] (DEFAULT) [address] [place] [address] Bacteria PRESENT Abnormal ABSENT [facility] Comment on above: Order Comment: For i ndwelling catheters, specimen collection is acceptable on catheter day 1 and 2 only. ? Performed By: #### U [id number] #### [facility] (DEFAULT) [address] [place] [address]67 Blood Urine Negative Normal Negative [facility] Comment on above: Order Comment: For i ndwelling catheters, specimen collection is acceptable on catheter day 1 and 2 only. ? Performed By: #### U [id number] #### [facility] (DEFAULT) [address] [place] [address] Color (U) Yellow Normal Yellow [facility] Comment on above: Order Comment: For i ndwelling catheters, specimen collection is acceptable on catheter day 1 and 2 only. ? Performed By: #### U [id number] #### [facility] (DEFAULT) [address] [place] [address] Glucose Ql (U) Negative Normal Negative [facility] Comment on above: Order Comment: For i ndwelling catheters, specimen collection is acceptable on catheter day 1 and 2 only. ? Performed By: #### U [id number] #### [facility] (DEFAULT) [address] [place] [address] Ketones Ql (U) Negative Normal Negative [facility] Comment on above: Order Comment: For i ndwelling catheters, specimen collection is acceptable on catheter day 1 and 2 only. ? Performed By: #### U [id number] #### [facility] (DEFAULT) [address] [place] [address] Leukocyte esterase Test strip Ql (U) Small Abnormal Negative [facility] Comment on above: Order Comment: For i ndwelling catheters, specimen collection is acceptable on catheter day 1 and 2 only. ? Performed By: #### U [id number] #### [facility] (DEFAULT) [address] [place] [address] 20586 Nitrites Urine Negative Normal Negative [facility] Comment on above: Order Comment: For i ndwelling catheters, specimen collection is acceptable on catheter day 1 and 2 only. ? Performed By: #### U [id number] #### [facility] (DEFAULT) [address] [place] [address]19 pH (U) 5.0 [pH] Normal 5.0-7.0 [facility] Comment on above: Order Comment: For i ndwelling catheters, specimen collection is acceptable on catheter day 1 and 2 only. ? Performed By: #### U [id number] #### [facility] (DEFAULT) [address] [place] [address] 93893 Protein Urine Negative Normal Negative [facility] Comment on above: Order Comment: For i ndwelling catheters, specimen collection is acceptable on catheter day 1 and 2 only. ? Performed By: #### U [id number] #### [facility] (DEFAULT) [address] [place] [address] 62631 RBC Urine 0-2 Normal 0-2 [facility] Comment on above: Order Comment: For i ndwelling catheters, specimen collection is acceptable on catheter day 1 and 2 only. ? Performed By: #### U [id number] #### [facility] (DEFAULT) [address] [place] [address] 76069 Specific [place] Urine > High 1.001-1.035 [facility] Comment on above: Order Comment: For i ndwelling catheters, specimen collection is acceptable on catheter day 1 and 2 only. ? Performed By: #### U [id number] #### [facility] (DEFAULT) [address] [place] [address] 18100 Squamous/Epithelial Cells >20/hpf = 4+ Abnormal 0-2/hpf, 3-5/hpf = 1+ [facility] Comment on above: Order Comment: For i ndwelling catheters, specimen collection is acceptable on catheter day 1 and 2 only. ? Performed By: #### U [id number] #### [facility] (DEFAULT) [address] [place] [address]76 Urobilinogen Urine 0.2 E.U./dL Normal 0.2 E.U/d L, 1.0 E.U/dL [facility] Comment on above: Order Comment: For i ndwelling catheters, specimen collection is acceptable on catheter day 1 and 2 only. ? Performed By: #### U [id number] #### [facility] (DEFAULT) [address] [place] [address] 64982 WBC LM.HPF (Urine sed) [#/Area] /[HPF] Abnormal 0 - 5 [facility] Comment on above: Order Comment: For i ndwelling catheters, specimen collection is acceptable on catheter day 1 and 2 only. ? Performed By: #### U [id number] #### [facility] (DEFAULT) [address] [place] [address]14 URINALYSIS REFLEX TO CULTURE PERFORMABLEOrdered By: Franchesca Dillon on 05-09-2023 Appearance (U) Cloudy Abnormal Clear [facility] Bacteria LM Ql (Urine sed) PRESENT Abnormal ABSENT [facility] Color (U) Yellow Yellow [facility] Epithelial cells.squamous LM Ql (Urine sed) >20/hpf = 4+ Abnormal 0-2/hpf, 3-5/hpf = 1+ [facility] Glucose Test strip (U) [Mass/Vol] Negative Negative [facility] Interpretation and review of laboratory results Abnormal [facility] Ketones (U) [Mass/Vol] Negative [facility] Leukocyte esterase Test strip Ql (U) Small Abnormal Negative [facility] Nitrite Ql (U) Negative Negative [facility] pH (U) 5.0 [pH] 5.0 - 7.0 [facility] Protein (U) [Mass/Vol] Negative Negative [facility] RBC (U) [#/Vol] Negative Negative [facility] RBC LM.HPF (Urine sed) [#/Area] 0-2 [facility] Specific gravity (U) [Rel density] High 1.001 - 1.035 [facility] Urobilinogen (U) [Mass/Vol] 0.2 E.U./dL 0.2 E.U/dL, 1.0 E.U/dL [facility] WBC LM.HPF (Urine sed) [#/Area] /[HPF] Abnormal [facility] URINE CULTUREon 05-09-2023 Bacteria identified Cx Nom (U) Normal [facility] Comment on above: Order Comment: For i [...] indicated. Performed By: #### U R #### [facility] (DEFAULT) [address] [place] [address] URINE DRUG SCREEN 10Ordered By: Rosaura Carreon on 05-09-2023 Amphetamine+Methamph etamine Screen (U) [Mass/Vol] Not detected [facility] Barbiturates Ql (U) Not detected [facility] Benzodiazepines Ql (U) Not detected [facility] Buprenorphine Ql (U) Positive Abnormal [facility] Cannabinoids Screen Ql (U) Not detected [facility] Cocaine Ql (U) Not detected [facility] fentaNYL Ql (U) Not detected [facility] Interpretation and review of laboratory results Abnormal [facility] Methadone Ql (U) Not detected [facility] Opiates Ql (U) Not detected [facility] oxyCODONE Ql (U) Not detected [facility] For medical purposes only. Positive results are unconfirmed unless otherwise noted. [facility] URINE DRUG SCREEN 10on 05-09 Amphetamine/Methamph etamine Not detected Normal Cutoff: 500 ng/mL [facility] Comment on above: Order Comment: For edical purposes only. Positive results are unconfirmed unless otherwise noted. Performed By: #### 1 0DRUG #### [facility] (DEFAULT) [address] [address] Barbiturates Not detected Normal Cutoff: 200 ng/mL [facility] Comment on above: Order Comment: For edical purposes only. Positive results are unconfirmed unless otherwise noted. Performed By: #### 1 0DRUG #### [facility] (DEFAULT) [address] [address] Benzodiazepines Not detected Normal Cutoff: 200 ng/mL [facility] Comment on above: Order Comment: For edical purposes only. Positive results are unconfirmed unless otherwise noted. Performed By: #### 1 0DRUG #### [facility] (DEFAULT) [address] [address] Buprenorphine Positive Abnormal Cutoff: 5 ng/mL [facility] Comment on above: Order Comment: For edical purposes only. Positive results are unconfirmed unless otherwise noted. Performed By: #### 1 0DRUG #### [facility] (DEFAULT) [address] [address] Cannabinoids Screen Ql (U) Not detected Normal Cutoff: 50 ng/mL [facility] Comment on above: Order Comment: For edical purposes only. Positive results are unconfirmed unless otherwise noted. Performed By: #### 1 0DRUG #### [facility] (DEFAULT) [address] [address] Cocaine Not detected Normal Cutoff: 150 ng/mL [facility] Comment on above: Order Comment: For edical purposes only. Positive results are unconfirmed unless otherwise noted. Performed By: #### 1 0DRUG #### [facility] (DEFAULT) [address] [address] Fentanyl Not detected Normal Cutoff: 1 ng/mL [facility] Comment on above: Order Comment: For m edical purposes only. Positive results are unconfirmed unless otherwise noted. Performed By: #### 1 0DRUG #### [facility] (DEFAULT) [address] [place] [address] Methadone Not detected Normal Cutoff: 300 ng/mL [facility] Comment on above: Order Comment: For m edical purposes only. Positive results are unconfirmed unless otherwise noted. Performed By: #### 1 0DRUG #### [facility] (DEFAULT) [address] [place] [address] Opiates Not detected Normal Cutoff: 300 ng/mL [facility] Comment on above: Order Comment: For m edical purposes only. Positive results are unconfirmed unless otherwise noted. Performed By: #### 1 0DRUG #### [facility] (DEFAULT) [address] [place] [address] Oxycodone Not detected Normal Cutoff: 100 ng/mL [facility] Comment on above: Order Comment: For m edical purposes only. Positive results are unconfirmed unless otherwise noted. Performed By: #### 1 0DRUG #### [facility] (DEFAULT) [address] [place] [address]39 CBC AND ELECTRONIC DIFFon Basophils (Bld) [#/Vol] 0.08 10*3/uL 0.00 - 0.15 K/uL [facility] Basophils/100 WBC (Bld) 0.7 % [facility] Differential cell count method Nom (Bld) Electronic Differential [facility] Eosinophils (Bld) [#/Vol] 0.16 10*3/uL 0.00 - 0.42 K/uL [facility] Eosinophils/100 WBC (Bld) 1.3 % [facility] Erythrocyte distribution width (RBC) [Ratio] 11.9 % 10.8 - 14.9 % [facility] Hematocrit (Bld) [Volume fraction] 37.5 % 34.9 - 44.3 % [facility] Hemoglobin (Bld) [Mass/Vol] 12.9 g/dL 11.4 - 15.2 g/dL [facility] Immature granulocytes (Bld) [#/Vol] 0.05 10*3/uL NINF - 0.08 K/uL [facility] Immature granulocytes/100 WBC (Bld) 0.4 % [facility] Interpretation and review of laboratory results Abnormal [facility] Lymphocytes (Bld) [#/Vol] 3.75 10*3/uL High 1.16 - 3.51 K/uL [facility] Lymphocytes/100 WBC (Bld) 30.7 % [facility] MCH (RBC) [Entitic mass] 31.2 pg 25.9 - 33.9 pg [facility] MCHC (RBC) [Mass/Vol] 34.4 g/dL 31.4 - 35.9 g/dL [facility] MCV (RBC) [Entitic vol] 90.8 fL 79.6 - 97.7 fL [facility] Monocytes (Bld) [#/Vol] 0.98 10*3/uL High 0.22 - 0.87 K/uL [facility] Monocytes/100 WBC (Bld) 8.0 % [facility] Neutrophils (Bld) [#/Vol] 7.20 10*3/uL 1.64 - 7.28 K/uL [facility] Nucleated RBC/100 WBC (Bld) [Ratio] 0.0 % [facility] Platelet mean volume (Bld) [Entitic vol] 10.4 fL 8.5 - 12.2 fL [facility] Platelets (Bld) [#/Vol] 242 10*3/uL 150 - 393 K/uL [facility] RBC (Bld) [#/Vol] 4.13 10*6/uL [facility] Segmented neutrophils/100 WBC (Bld) 58.9 % [facility] WBC (Bld) [#/Vol] 12.22 10*3/uL High 3.99 - 11 .19 K/uL [facility] CT CEREBRAL PERFUSION ANALYS Anthony 05-08-2023 IMPRESSION: [...] I have reviewed and approved this report. [facility] Radiology Study observation (narrative) [facility] CT Head limitedon 05-08-2023 IMPRESSION: 1. Small [...] I have reviewed and approved this report. [facility] Radiology Study observation (narrative) [facility] CT Head limitedOrdered By: Rhonda Maciel on 05-08-2023 [facility] CNOVon 11-11-2022 CNOV Office Visit (NEEPHU ) -------- PARDEEP MARK ([id number]) 1965 F Date Time Provider Department 11/11/22 10:00 AM CAROL GAMEZ During your visit today, we recorded the following information about you: Temperature Pulse Respiration Blood pressure 96.3 degrees 95/minute 20/minute 137/72 Weight Height 99.8 kg 1.6 m Carol Gamez MD 11/11/2022 12:05 PM Signed [facility] Patient Name: Pardeep RAMIRES Date of : 1965 INITIAL EPILEPSY CLINIC NOTE 11/11/2022 10:00 AM CHIEF COMPLAINT: New Patient HISTORY OF PRESENT ILLNESS Ms. Mark is a 57 year old right-handed female seen in [facility] for initial consultation. [...] smell. - She saw a neurologist in [place] and did an 8-hour video EEG at [facility] that she reports captured an episode. The test was cut short following the captured event and started on carbamazepine for it. - Sometime later around age [age] years, she was evaluated at [facility] with an EMU that did not capture [...] at 7 am. She was taken to [place] and then transferred to [facility] on 07/15/22. - She was readmitted for [...] a fifth event at her grandson's birthday green party. - The sixth one was at [facility] ED. Her daughter had a video [...] times seth (more content not included)... Normal [facility] CT PULMONARY ARTERIESon - CT PULMONARY ARTERIES EXAMINATION: CTA OF THE [...] Cardiomegaly. No evidence for pneumonia. Workstation ID: [id number] Dictated by: NICKI ISABEL on FriOct 28, 2022 1:00:57 AM EDT Transcribed by: NICKI ISABEL on FriOct 28, 2022 1:00:57 AM EDT Finalized by: NICKI ISABEL on FriOct 28, 2022 1:00:57 AM EDT [facility] Comment on above: Order Comment: Injur y/Trauma or Illness?:Illness/Other How long have you had these symptoms (acute/chronic)?:Acute Reason for exam?:Pulmonary embolism (PE) suspected, high prob Type of Exam?:Initial Additional signs and symptoms?:Pulmonary embolism (PE) suspected, high prob MR BRAIN WITH AND WITHOUT CO 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 The ventricles [...] ischemic changes. No acute brain parenchymal abnormality. MBLucia/erendira Workstation ID: [id number] Dictated by: SHANTA MURRIETA on FriOct 28, 2022 7:06:40 PM EDT Transcribed by: MARLA WILLIS on FriOct 28, 2022 7:08:36 PM EDT Finalized by: SHANTA MURRIETA on [place] Oct 31, 2022 7:49:49 AM EDT [facility] Comment on above: Order Comment: Injur y/Trauma [...] effusion. IMPRESSION: Findings as above. Workstation ID: [id number] Dictated by: NICKI ISABEL on [place] Oct 27, 2022 11:19:14 PM EDT Transcribed by: NICKI ISABEL on [place] Oct 27, 2022 11:19:14 PM EDT Finalized by: NICKI ISABEL on [place] Oct 27, 2022 11:19:14 PM EDT [facility] Comment on above: Order Comment: Injur y/Trauma [...] pneumothorax. IMPRESSION: Findings as above. Workstation ID: [id number] Dictated by: NICKI ISABEL on Sat Oct 26, 2022 6:57:49 PM EDT Transcribed by: NICKI ISABEL on Sat Oct 26, 2022 6:57:49 PM EDT Finalized by: NICKI ISABEL on Sat Oct 26, 2022 6:57:49 PM EDT [facility] Comment on above: Order Comment: Injur y/Trauma or Illness?:Illness/Other How long have you had these symptoms (acute/chronic)?:Acute Reason for exam?:r/o aspiration History of cancer?:unk Surgeries, chemotherapy, or radiation?:unk Type of Exam?:Initial Additional signs and symptoms?:unk CNCONon 10-22-2022 CNCON Consults (NE50MN) -------- PARDEEP MARK ([id number]) 1965 F Date Time Provider Department 10/22/22 DIDIER MCCARTY NE50MN During your visit today, we recorded the following information about you: Chapis Jin APRN.LITO 10/22/2022 12:47 PM Signed [facility] Review of Records Patient: Pardeep Mark [address]: [address] [place] [address] [place], [place] [id number] Impression: Review of records for Pardeep Mark, [...] recommend visit with Dr. Gamez for consultation -- Summary: Onset: 20 years ago Recent Seizure Frequency: Recurred July 2022 and is not experiencing them daily Seizure Description(s) Available: Type A: Falls over, whole body tremors, making noises, eyes closed Duration: 7 - 15 minutes Current AED(s): Levetiracetam Previous AED(s): Carbamazepine PMH: cellulitis right hand, left leg amputation, stroke, obesity, HTN, chronic pain PRIOR EVALUATIONS: [address] [place] [address] Bedside EEG ([facility], 08/05/2022-08/07/2022): EEG is consistent with the diagnosis of a a moderate diffuse encephalopathy. No epileptiform discharges or EEG seizures were seen during this recording Bedside EEG ([facility], 10/07/2022-10/09/2022): EEG is consistent with the diagnosis of a mild to moderate diffuse encephalopathy. No epileptiform discharges or EEG seizures were seen during this recording MRI brain wo/w contrast ([facility], 08/07/2022): No acute findings or abnormal intracranial enhancement. Remote lacunar infarcts involving the right corpus striatum and intervening internal capsule -- BLANKA Recommendations: - Consultation with Dr. Gamez - Additional testing to be considered by epilepsy clinicians Signed: Chapis Jin APRN.[employer] October 22, [address] Mccarty for review and recommendations. - MD Recommendations (as discussed with Dr. Mccarty): - Please proceed with the above plan. Allergies As of Date: 10/22/2022 Noted Allergy Reaction PHENOTHIAZINES 03/31/2003 Comments: compazine - shaking PROCHLORPERAZINE 08/02/2005 PROMETHAZINE 08/02/2005 7 - Swelling REGLAN (METOCLOPRAMIDE HCL) 08/12/2005 Comments: SHAKING Date Reviewed: 10/10/2022 Reviewed by: Gerard Estevez RN - Fully Assessed Primary Visit Diagnosis:Convulsions, unspecified convulsion type (HCC) [R56.9] Prescriptions as [...] Leukocytosis [D7 (more content not included)... Normal [facility] [place] 10-22-2022 CNPN Telephone (NE50MN) -------- PARDEEP MARK ([id number]) 1965 F Date Time Provider Department 10/22/22 DIDIER MCCARTY NE50MN During your visit today, we recorded the following information about you: Ratna Felton 10/22/2022 10:25 AM Signed [facility] Initial Intake Interview October 22, 2022 10:14 AM Caller: Melissa Relationship to pt: Daughter Patient name: Pardeep Mark Age: [age] year old Address: [address] [place] [address] [place] [phone] (home) Insurance: Payor: A[employer] / Plan: AETNA [facility] / Product Type: PPO / Referred by: Self (word of mouth) Referring to: Dr. Gamez Reason for Evaluation: further evaluation and treatment Previously evaluated at: [facility] Tel: N/A Fax: N/A Age AND date of onset of seizures/spells: [...] neurosurgery? No Type AND Date: N/A Implants (VNS/NeuroPace/shunt/ort hodontic hardware/pacemaker)? No Type AND Date: N/A Would patient require anaesthesia or sedation? No Additional pertinent medical information: No other information Test Yes or No Date Facility EEG Yes 2022 [facility] Video EEG Yes 2022 [facility] MRI brain Yes [address] [facility] [address] brain Yes 2022 [facility] fMRI brain No PET No Ictal SPECT [...] Signed: Ratna Felton 10/22/2022 10:25 AM Signed OSH imaging/records received: October 22, 2022 -EEG Reports [...] ECG [R94.31] more content not included)... Normal [facility] COVID-19/INFLUENZA A,B MOLEC [facility] 10-20-2022 SARS-CoV-2 (COVID-19) Ab IA Ql SARS-COV-2 (NORMA): Not Detected INFLUENZA A (NORMA): Not Detected INFLUENZA B (NORMA): Not Detected Normal Not Detected [facility] Comment on above: Order Comment: This [...] at the following links: For Healthcare Providers: https://www.fda.gov/media/115058/download For Patients: https://www.fda.gov/media/673200/download Performed By: #### L [id number] #### [facility] [address] [place], [place] [address] Jessica Dodson M.D. [id number] XR CHEST PA/APon 10-20-2022 XR CHEST PA/AP [...] are identified. IMPRESSION: No acute process identified. [place]/[facility] Workstation ID: [id number] Dictated by: ROGER CHUA on [place] Oct 20, 2022 6:05:35 PM EDT Transcribed by: MARLA WILLIS on [place] Oct 20, 2022 6:06:18 PM EDT Finalized by: ROGER CHUA on [facility] Oct 22, 2022 8:09:01 AM EDT [facility] Comment on above: Order Comment: Injur y/Trauma or Illness?:Illness/Other How long have you had these symptoms (acute/chronic)?:Acute Reason for exam?:PNA, seizure History of cancer?:unk Surgeries, chemotherapy, or radiation?:unk Type of Exam?:Initial Additional signs and symptoms?:unk CNPLora 10-18-2022 CNPN Telephone (PODCCP) -------- PARDEEP MARK ([id number]) 1965 F Date Time Provider Department 10/18/22 JOSE DE JESUS PINZON PODJESSE During your visit today, we recorded the following information about you: Allergies As of Date: 10/18/2022 Noted Allergy Reaction PHENOTHIAZINES 03/31/2003 Comments: compazine - shaking PROCHLORPERAZINE 08/02/2005 PROMETHAZINE 08/02/2005 7 - Swelling REGLAN (METOCLOPRAMIDE HCL) 08/12/2005 Comments: SHAKING Date Reviewed: 10/10/2022 Reviewed by: Gerard Estevez RN - Fully Assessed Reason for Visit: Follow Up Phone Call [[phone]] Cmt: Post Discharge F/U - attempt made. [...] JOSE DE JESUS PINZON on 10/18/22 Normal [facility] CASE MANAGEMon 10-14-2022 CASE MANAGEM Normal [facility] CNDSon 10-14-2022 CNDS Normal [facility] CONSULTon 10-14-2022 CONSULT Normal [facility] CONSULT PROGon 10-14-2022 CONSULT PROG Normal [facility] NURSING PROGon 10-14-2022 NURSING PROG Normal [facility] THERAPY NTon 10-14-2022 THERAPY NT Normal [facility] levETIRAcetam SerPl-mCncon 0 10-14-2022 levETIRAcetam [Mass/Vol] 30.4 ug/mL Normal 12.0-46.0 [facility] Comment on above: Order Comment: Speci men Type: BLOOD SPECIMENOrdering Facility: [facility] Address: [address] [place] [address] Result Comment: This test is not suitable for patients receiving treatment with the drug brivaracetam (Briviact). The drug causes an interference that may lead to falsely elevated levetiracetam results.Reference ranges and high/low indicator flags are provided as general guidelines only. The treating physician must determine appropriate target levels/dosing based on the specific clinical situation.This test was developed and its performance characteristics determined by [facility] Pathology and Laboratory Medicine [place] ([facility]). It has not been cleared or approved by the FDA. [facility] is regulated under CLIA as qualified to perform high-complexity testing. This test is used for clinical purposes. It should not be regarded as investigational or for research. Performed By: #### 3 0471-7 ####[facility] LAB[facility] [id number] [facility] [place] [address] [place] NURSING PROGon 10-13-2022 NURSING PROG Normal [facility] Basic metabolic 2000 panelon 10-12-2022 Anion gap [Moles/Vol] 9 mmol/L Normal 9-18 [facility] Comment on above: Order Comment: Speci men Type: BLOOD SPECIMENOrdering Facility: [facility] Address: [address] [address] Performed By: #### 2 4321-2, 67975-9 ####[facility]ATORYCLIA [id number] [place] [address] [place] Calcium [Mass/Vol] 8.1 mg/dL Low 8.5-10.2 [facility] Comment on above: Order Comment: Speci men Type: BLOOD SPECIMENOrdering Facility: [facility] Address: [address] [address] Performed By: #### 2 4321-2, ####[facility]ORATORYCLIA [id number] [address] Chloride [Moles/Vol] 107 mmol/L High 97-105 [facility] Comment on above: Order Comment: Speci men Type: BLOOD SPECIMENOrdering Facility: [facility] Address: [address] [place] [address] Performed By: #### 2 4322, ####[facility]ORYCLIA [id number] [address] CO2 [Moles/Vol] 23 mmol/L Normal 22-30 [facility] Comment on above: Order Comment: Speci men Type: BLOOD SPECIMENOrdering Facility: [facility] Address: [address] [place] [address] Performed By: #### 2 4322, ####[facility]ATORYCLIA [id number] [address] Creatinine [Mass/Vol] 0.63 mg/dL Normal 0.58-0.96 [facility] Comment on above: Order Comment: Speci men Type: BLOOD SPECIMENOrdering Facility: [facility] Address: [address] [place] [address] Performed By: #### 2 43207-15, ####[facility]ORATORYCLIA [id number] [address] ESTIMATED GLOMERULAR FILTRATION RATE 103 mL/min/1.73m??? Normal >=60 [facility] Comment on above: Order Comment: Speci men Type: BLOOD SPECIMENOrdering Facility: [facility] Address: [address] [place] [address] Result Comment: Manasa mated Glomerular Filtration Rate [...] reflect actual GFR. Performed By: #### 2 432 ####[facility] LABORATORYCLIA [id number] [place] [address] [place] Glucose [Mass/Vol] 251 mg/dL High 74-99 [facility] Comment on above: Order Comment: Speci men Type: BLOOD SPECIMENOrdering Facility: [facility] Address: [address] [place] [address] Result Comment: The [place] [employer] Association (ADA) provides guidance for cutoff [...] Standards of Medical Care in Diabetes 2016, [place] [employer]. Diabetes Care. 2016.39(Suppl 1). Performed By: #### 2 ####[facility] LABORATORYCLIA [id number] [place] [address] [place] Potassium [Moles/Vol] 3.6 mmol/L Low 3.7-5.1 [facility] Comment on above: Order Comment: Leobardoi men Type: BLOOD SPECIMENOrdering Facility: [facility] Address: [address] [place] [address] Performed By: #### 2 ####[facility]ORATORYCLIA [id number] [place] [address] [place] Sodium [Moles/Vol] 139 mmol/L Normal 136-144 [facility] Comment on above: Order Comment: Speci men Type: BLOOD SPECIMENOrdering Facility: [facility] Address: [address] [place], [place] [address] Performed By: #### 2 ####[facility] LABORATORYCLIA [id number] [address] [place] Urea nitrogen [Mass/Vol] 10 mg/dL Normal 7-21 [facility] Comment on above: Order Comment: Speci men Type: BLOOD SPECIMENOrdering Facility: [facility] Address: [address] [place] [address] Performed By: #### 2 4321-2, 11801-0 ####[facility]ORATORYCLIA [id number] [address] [place] CBC panel Auto (Bld)on 10-12 Erythrocyte distribution width (RBC) [Ratio] 14.1 % Normal 11.5-15.0 [facility] Comment on above: Order Comment: Speci men Type: BLOOD SPECIMENOrdering Facility: [facility] Address: [address] [place] [address] Performed By: #### 5 8410-2 ####[facility]ORATORYCLIA [id number] [address] [place] Hematocrit (Bld) [Volume fraction] 34.5 % Low 36.0-46.0 [facility] Comment on above: Order Comment: Speci men Type: BLOOD SPECIMENOrdering Facility: [facility] Address: [address] [place] [address] Performed By: #### 5 8410-2 ####[facility]ATORYCLIA [id number] [address] [place] Hemoglobin (Bld) [Mass/Vol] 10.7 g/dL Low 11.5-15.5 [facility] Comment on above: Order Comment: Speci men Type: BLOOD SPECIMENOrdering Facility: [facility] Address: [address] [place] [address] Performed By: #### 5 8410-2 ####[facility]ORATORYCLIA [id number] [address] [place] MCH (RBC) [Entitic mass] 28.3 pg Normal 26.0-34.0 [facility] Comment on above: Order Comment: Speci men Type: BLOOD SPECIMENOrdering Facility: [facility] Address: [address] [address] Performed By: #### 5 8410-2 ####[facility]ORATORYCLIA [id number] [address] [place] [facility] MCHC (RBC) [Mass/Vol] 31.0 g/dL Normal 30.5-36.0 [facility] Comment on above: Order Comment: Speci men Type: BLOOD SPECIMENOrdering Facility: [facility] Address: [address] [address] Performed By: #### 5 8410-2 ####[facility]ORATORYCLIA [id number] [address] MCV (RBC) [Entitic vol] 91.3 fL Normal 80.0-100.0 [facility] Comment on above: Order Comment: Speci men Type: BLOOD SPECIMENOrdering Facility: [facility] Address: [address] [place] [address] Performed By: #### 5 8410-2 ####[facility]ORATORYCLIA [id number] [address] [place] Nucleated RBC (Bld) [#/Vol] 10*3/uL Normal <0.01 [facility] Comment on above: Order Comment: Speci men Type: BLOOD SPECIMENOrdering Facility: [facility] Address: [address] [place] [address] Performed By: #### 5 8410-2 ####[facility]ORATORYCLIA [id number] [address] [place] [facility] Platelet mean volume (Bld) [Entitic vol] 11.2 fL Normal 9.0-12.7 [facility] Comment on above: Order Comment: Speci men Type: BLOOD SPECIMENOrdering Facility: [facility] Address: [address] [place] [address] Performed By: #### 5 8410-2 ####[facility]ORATORYCLIA [id number] [address] [place] Platelets (Bld) [#/Vol] 210 10*3/uL Normal 150-400 [facility] Comment on above: Order Comment: Speci men Type: BLOOD SPECIMENOrdering Facility: [facility] Address: [address] [place] [address] Performed By: #### 5 8410-2 ####[facility] LABORATORYCLIA [id number] [address] STATES OF [facility] RBC (Bld) [#/Vol] 3.78 10*6/uL Low 3.90-5.20 [facility] Comment on above: Order Comment: Speci men Type: BLOOD SPECIMENOrdering Facility: [facility] Address: [address] [place] [address] Performed By: #### 5 8410-2 ####[facility]ORATORYCLIA [id number] [address] STATES OF [facility] WBC (Bld) [#/Vol] 10.94 10*3/uL Normal 3.70-11.00 [facility] Comment on above: Order Comment: Speci men Type: BLOOD SPECIMENOrdering Facility: [facility] Address: [address] [place] [address] Performed By: #### 5 8410-2 ####[facility]ORATORYCLIA [id number] [address] [place] CK SerPl-cCncon 10-12-2022 CK [Catalytic activity/Vol] 61 U/L Normal 42-196 [facility] Comment on above: Order Comment: Speci men Type: BLOOD SPECIMENOrdering Facility: [facility] Address: [address] [place] [address] Performed By: #### 2 157-6 ####[facility]ORATORYCLIA [id number] [address] CONSULT PROGon 10-12-2022 CONSULT PROG Normal [facility] CONSULT PROG Normal [facility] Gas and Carbon monoxide pane l (BldV)on 10-12-2022 Base excess Calc (BldV) [Moles/Vol] 0 mmol/L Normal 0-2 [facility] Comment on above: Order Comment: Speci men Type: VENOUS BLOOD SPECIMENOrdering Facility: [facility] Address: [address] [place] [address] Performed By: #### 2 4344-4 ####[facility]ATORYCLIA [id number] [address] Body temperature 99.32 [degF] Normal [facility] Comment on above: Order Comment: Speci men Type: VENOUS BLOOD SPECIMENOrdering Facility: [facility] Address: [address] [address] Performed By: #### 2 4344-4 ####[facility]ATORYCLIA [id number] [address] Calcium.ionized (BldV) [Mass/Vol] 1.16 mmol/L Normal 1.08-1.30 [facility] Comment on above: Order Comment: Speci men Type: VENOUS BLOOD SPECIMENOrdering Facility: [facility] Address: [address] [place] [address] Performed By: #### 2 4344-4 ####[facility]ATORYCLIA [id number] [address] Calcium.ionized adjusted to pH 7.4 (BldA) [Moles/Vol] 1.10 mmol/L Normal 1.08-1.30 [facility] Comment on above: Order Comment: Speci men Type: VENOUS BLOOD SPECIMENOrdering Facility: [facility] Address: [address] [place] [address] Performed By: #### 2 4344-4 ####[facility]ORATORYCLIA [id number] [address] Carboxyhemoglobin (BldV) [Mass fraction] 2.0 % Normal 0.0-2.0 [facility] Comment on above: Order Comment: Speci men Type: VENOUS BLOOD SPECIMENOrdering Facility: [facility] Address: [address] [place] [address] Result Comment: Carb oxyhemoglobin Reference Range for Smokers: 2.0-8.0% Performed By: #### 2 4344-4 ####[facility]ATORYCLIA [id number] [address] [place] Chloride [Moles/Vol] 110 mmol/L High 102-109 [facility] Comment on above: Order Comment: Speci men Type: VENOUS BLOOD SPECIMENOrdering Facility: [facility] Address: [address] [place] [address] Performed By: #### 2 4344-4 ####[facility]ATORYCLIA [id number] [address] [place] CO2 (BldV) [Partial pressure] 56 mm[Hg] High 42-55 [facility] Comment on above: Order Comment: Speci men Type: VENOUS BLOOD SPECIMENOrdering Facility: [facility] Address: [address] [place] [address] Performed By: #### 2 4344-4 ####[facility]ORYCLIA [id number] [address] [place] CO2 [Moles/Vol] 25 mmol/L Normal 25-29 [facility] Comment on above: Order Comment: Speci men Type: VENOUS BLOOD SPECIMENOrdering Facility: [facility] Address: [address] [place] [address] Performed By: #### 2 4344-4 ####[facility]ORYCLIA [id number] [address] [place] CO2 adjusted to patient's actual temperature (BldV) [Partial pressure] 57 mmHg High 42-55 [facility] Comment on above: Order Comment: Speci men Type: VENOUS BLOOD SPECIMENOrdering Facility: [facility] Address: [address] [place] [address] Performed By: #### 2 4344-4 ####[facility]ORYCLIA [id number] [address] [place] Glucose [Mass/Vol] 228 mg/dL High 60-105 [facility] Comment on above: Order Comment: Speci men Type: VENOUS BLOOD SPECIMENOrdering Facility: [facility] Address: [address] [place] [address] Performed By: #### 2 4344-4 ####[facility]ATORYCLIA [id number] [address] HCO3 (Bld) [Moles/Vol] 27 mmol/L Normal 24-28 [facility] Comment on above: Order Comment: Speci men Type: VENOUS BLOOD SPECIMENOrdering Facility: [facility] Address: [address] [place] [address] Performed By: #### 2 4344-4 ####[facility]ATORYCLIA [id number] [address] Hematocrit (Bld) [Volume fraction] 34.6 % Low 36.0-46.0 [facility] Comment on above: Order Comment: Speci men Type: VENOUS BLOOD SPECIMENOrdering Facility: [facility] Address: [address] [place] [address] Performed By: #### 2 4344-4 ####[facility]ORATORYCLIA [id number] [address] [place] [facility] Hemoglobin (Bld) [Mass/Vol] 11.2 g/dL Low 11.5-15.5 [facility] Comment on above: Order Comment: Speci men Type: VENOUS BLOOD SPECIMENOrdering Facility: [facility] Address: [address] [place] [address] Performed By: #### 2 4344-4 ####[facility]ATORYCLIA [id number] [address] [place] Lactate [Moles/Vol] 1.6 mmol/L Normal 0.5-2.2 [facility] Comment on above: Order Comment: Speci men Type: VENOUS BLOOD SPECIMENOrdering Facility: [facility] Address: [address] [address] Performed By: #### 2 4344-4 ####[facility]ATORYCLIA [id number] [address] [place] Methemoglobin (Bld) [Mass fraction] 1.1 % Normal 0.0-1.5 [facility] Comment on above: Order Comment: Speci men Type: VENOUS BLOOD SPECIMENOrdering Facility: [facility] Address: [address] [place] [address] Performed By: #### 2 4344-4 ####[facility]ORATORYCLIA [id number] [address] O2 THERAPY RA=Room Air Normal [facility] Comment on above: Order Comment: Speci men Type: VENOUS BLOOD SPECIMENOrdering Facility: [facility] Address: [address] [place] [address] Performed By: #### 2 4344-4 ####[facility]ATORYCLIA [id number] [address] Oxygen (BldV) [Partial pressure] 138 mm[Hg] High 35-45 [facility] Comment on above: Order Comment: Speci men Type: VENOUS BLOOD SPECIMENOrdering Facility: [facility] Address: [address] [address] Performed By: #### 2 4344-4 ####[facility]ATORYCLIA [id number] [address] Oxygen adjusted to patient's actual temperature (BldV) [Partial pressure] 140 mmHg High 35-45 [facility] Comment on above: Order Comment: Speci men Type: VENOUS BLOOD SPECIMENOrdering Facility: [facility] Address: [address] [address] Performed By: #### 2 4344-4 ####[facility]ORYCLIA [id number] [address] Oxygen saturation in Venous blood 99 % High 60-85 [facility] Comment on above: Order Comment: Speci men Type: VENOUS BLOOD SPECIMENOrdering Facility: [facility] Address: [address] [address] Performed By: #### 2 4344-4 ####[facility]ORYCLIA [id number] [address] [place] Oxyhemoglobin (BldV) [Mass fraction] 96 % High 60-85 [facility] Comment on above: Order Comment: Speci men Type: VENOUS BLOOD SPECIMENOrdering Facility: [facility] Address: [address] [place] [address] Performed By: #### 2 4344-4 ####[facility]ORATORYCLIA [id number] [place] [address] [place] pH (BldV) 7.31 [pH] Low 7.32-7.42 [facility] Comment on above: Order Comment: Speci men Type: VENOUS BLOOD SPECIMENOrdering Facility: [facility] Address: [address] [place] [address] Performed By: #### 2 4344-4 ####[facility]ATORYCLIA [id number] [address] pH adjusted to patient's actual temperature (BldV) 7.30 Low 7.32-7.42 [facility] Comment on above: Order Comment: Speci men Type: VENOUS BLOOD SPECIMENOrdering Facility: [facility] Address: [address] [place] [address] Performed By: #### 2 4344-4 ####[facility]ATORYCLIA [id number] [address] [place] Potassium [Moles/Vol] 3.3 mmol/L Low 3.5-5.0 [facility] Comment on above: Order Comment: Speci men Type: VENOUS BLOOD SPECIMENOrdering Facility: [facility] Address: [address] [place] [address] Performed By: #### 2 4344-4 ####[facility]ATORYCLIA [id number] [address] [place] [facility] Sodium [Moles/Vol] 141 mmol/L Normal 136-144 [facility] Comment on above: Order Comment: Speci men Type: VENOUS BLOOD SPECIMENOrdering Facility: [facility] Address: [address] [place], [place] [address] Performed By: #### 2 4344-4 ####[facility]ORATORYCLIA [id number] [address] [place] Magnesium SerPl-mCncon 10-12 Magnesium [Mass/Vol] 1.7 mg/dL Normal 1.7-2.3 [facility] Comment on above: Order Comment: Speci men Type: BLOOD SPECIMENOrdering Facility: [facility] Address: [address] [address] Performed By: #### 2 4321-2, 33958-8 ####[facility]ATORYCLIA [id number] [address] NURSING PROGon 10-12-2022 NURSING PROG Normal [facility] Vancomycin random [Mass/Vol] on 10-12-2022 Vancomycin [Mass/Vol] 16.7 ug/mL Normal 10.0-20.0 [facility] Comment on above: Order Comment: Speci men Type: BLOOD SPECIMENOrdering Facility: [facility] Address: [address] [address] Result Comment: Refe rence ranges and high/low indicator flags are provided as general guidelines only. The treating physician must determine appropriate target levels/dosing based on the specific clinical situation. Performed By: #### 4 091-5 ####[facility]ATORYCLIA [id number] [address] [place] ANES POSTPROC EVALon 023 ANES POSTPROC EVAL Normal [facility] CASE MANAGEMon 10-11-2022 CASE MANAGEM Normal [facility] CONSULT PROGon 10-11-2022 CONSULT PROG Normal [facility] NURSING PROGon 10-11-2022 NURSING PROG Normal [facility] NURSING PROG Normal [facility] NUTRITIONon 10-11-2022 NUTRITION Normal [facility] THERAPY NTon 10-11-2022 THERAPY NT Normal [facility] THERAPY NT Normal [facility] ANES PRE-OPon 10-10-2022 ANES PRE-OP Normal [facility] Basic metabolic 2000 panelon 10-10-2022 Anion gap [Moles/Vol] 9 mmol/L Normal 9-18 [facility] Comment on above: Order Comment: Speci men Type: BLOOD SPECIMENOrdering Facility: [facility] Address: [address] [address] Performed By: #### 2 4321-2 ####[facility]ATORYCLIA [id number] [place] [address] [place] Calcium [Mass/Vol] 9.1 mg/dL Normal 8.5-10.2 [facility] Comment on above: Order Comment: Speci men Type: BLOOD SPECIMENOrdering Facility: [facility] Address: [address] [address] Performed By: #### 2 4321-2 ####[facility]ORYCLIA [id number] [place] [address] [place] Chloride [Moles/Vol] 104 mmol/L Normal 97-105 [facility] Comment on above: Order Comment: Speci men Type: BLOOD SPECIMENOrdering Facility: [facility] Address: [address] [address] Performed By: #### 2 4321-2 ####[facility]ATORYCLIA [id number] [place] [address] [place] CO2 [Moles/Vol] 27 mmol/L Normal 22-30 [facility] Comment on above: Order Comment: Speci men Type: BLOOD SPECIMENOrdering Facility: [facility] Address: [address] [address] Performed By: #### 2 4321-2 ####[facility]ORYCLIA [id number] [place] [address] [place] Creatinine [Mass/Vol] 0.68 mg/dL Normal 0.58-0.96 [facility] Comment on above: Order Comment: Speci men Type: BLOOD SPECIMENOrdering Facility: [facility] [facility] Address: [address] [address] Performed By: #### 2 4321-2 ####[facility] LABORATORYCLIA [id number] [place] [address] [place] ESTIMATED GLOMERULAR FILTRATION RATE 101 mL/min/1.73m??? Normal >=60 [facility] Comment on above: Order Comment: Leobardofredy mosley Type: BLOOD SPECIMENOrdering Facility: [facility] Address: [address] [place] [address] Result Comment: Manasa mated Glomerular Filtration Rate [...] actual GFR. Performed By: #### 2 4321-2 ####[facility] LABORATORYCLIA [id number] [place] [address] [place] Glucose [Mass/Vol] 182 mg/dL High 74-99 [facility] Comment on above: Order Comment: Tawanda mosley Type: BLOOD SPECIMENOrdering Facility: [facility] Address: [address] [place] [address] Result Comment: The [place] [employer] (ADA) provides guidance for cutoff [...] Standards of Medical Care in Diabetes 2016, [place] [employer]. Diabetes Care. 2016.39(Suppl 1). Performed By: #### 2 4321-2 ####[facility] LABORATORYCLIA [id number] [place] [address] [place] Potassium [Moles/Vol] 3.9 mmol/L Normal 3.7-5.1 [facility] Comment on above: Order Comment: Speci men Type: BLOOD SPECIMENOrdering Facility: [facility] Address: [address] [place] [address] Performed By: #### 2 4321-2 ####[facility] LABORATORYCLIA [id number] [address] [place] [facility] Sodium [Moles/Vol] 140 mmol/L Normal 136-144 [facility] Comment on above: Order Comment: Speci men Type: BLOOD SPECIMENOrdering Facility: [facility] Address: [address] [place] [address] Performed By: #### 2 4321-2 ####[facility] LABORATORYCLIA [id number] [address] STATES OF [facility] Urea nitrogen [Mass/Vol] 11 mg/dL Normal 7-21 [facility] Comment on above: Order Comment: Speci men Type: BLOOD SPECIMENOrdering Facility: [facility] Address: [address] [place] [address] Performed By: #### 2 4321-2 ####[facility] LABORATORYCLIA [id number] [address] STATES OF [facility] CBC panel Auto (Bld)on 10-10 Erythrocyte distribution width (RBC) [Ratio] 13.5 % Normal 11.5-15.0 [facility] Comment on above: Order Comment: Speci men Type: BLOOD SPECIMENOrdering Facility: [facility] Address: [address] [place] [address] Performed By: #### 5 8410-2 ####[facility] LABORATORYCLIA [id number] [address] Hematocrit (Bld) [Volume fraction] 36.6 % Normal 36.0-46.0 [facility] Comment on above: Order Comment: Speci men Type: BLOOD SPECIMENOrdering Facility: [facility] Address: [address] [place] [address] Performed By: #### 5 8410-2 ####[facility] LABORATORYCLIA [id number] [address] OF [facility] Hemoglobin (Bld) [Mass/Vol] 11.4 g/dL Low 11.5-15.5 [facility] Comment on above: Order Comment: Speci men Type: BLOOD SPECIMENOrdering Facility: [facility] Address: [address] [place] [address] Performed By: #### 5 8410-2 ####[facility] LABORATORYCLIA [id number] [address] MCH (RBC) [Entitic mass] 27.8 pg Normal 26.0-34.0 [facility] Comment on above: Order Comment: Speci men Type: BLOOD SPECIMENOrdering Facility: [facility] Address: [address] [place] [address] Performed By: #### 5 8410-2 ####[facility] LABORATORYCLIA [id number] [address] MCHC (RBC) [Mass/Vol] 31.1 g/dL Normal 30.5-36.0 [facility] Comment on above: Order Comment: Speci men Type: BLOOD SPECIMENOrdering Facility: [facility] Address: [address] [place] [address] Performed By: #### 5 8410-2 ####[facility] LABORATORYCLIA [id number] [address] OF [facility] MCV (RBC) [Entitic vol] 89.3 fL Normal 80.0-100.0 [facility] Comment on above: Order Comment: Speci men Type: BLOOD SPECIMENOrdering Facility: [facility] Address: [address] [place] [address] Performed By: #### 5 8410-2 ####[facility]ORATORYCLIA [id number] [address] Nucleated RBC (Bld) [#/Vol] 10*3/uL Normal <0.01 [facility] Comment on above: Order Comment: Speci men Type: BLOOD SPECIMENOrdering Facility: [facility] Address: [address] [address] Performed By: #### 5 8410-2 ####[facility]ORATORYCLIA [id number] [address] [place] Platelet mean volume (Bld) [Entitic vol] 10.8 fL Normal 9.0-12.7 [facility] Comment on above: Order Comment: Speci men Type: BLOOD SPECIMENOrdering Facility: [facility] Address: [address] [address] Performed By: #### 5 8410-2 ####[facility]ORATORYCLIA [id number] [address] [place] Platelets (Bld) [#/Vol] 224 10*3/uL Normal 150-400 [facility] Comment on above: Order Comment: Speci men Type: BLOOD SPECIMENOrdering Facility: [facility] Address: [address] [place] [address] Performed By: #### 5 8410-2 ####[facility]ORATORYCLIA [id number] [address] [place] RBC (Bld) [#/Vol] 4.10 10*6/uL Normal 3.90-5.20 [facility] Comment on above: Order Comment: Speci men Type: BLOOD SPECIMENOrdering Facility: [facility] Address: [address] [place] [address] Performed By: #### 5 8410-2 ####[facility]ORATORYCLIA [id number] [address] [place] WBC (Bld) [#/Vol] 9.72 10*3/uL Normal 3.70-11.00 [facility] Comment on above: Order Comment: Speci men Type: BLOOD SPECIMENOrdering Facility: [facility] Address: [address] [place] [address] Performed By: #### 5 8410-2 ####[facility]ORATORYCLIA [id number] [address] OPERATIVE NOon 10-10-2022 OPERATIVE NO Normal [facility] THERAPY NTon 10-10-2022 THERAPY NT Normal [facility] ALLIED HEALTHon 10-09-2022 ALLIED HEALTH Normal [facility] ALLIED HEALTH Normal [facility] Basic metabolic 2000 panelon 10-09-2022 Anion gap [Moles/Vol] 11 mmol/L Normal 9-18 [facility] Comment on above: Order Comment: Speci men Type: BLOOD SPECIMENOrdering Facility: [facility] Address: [address] [place] [address] Performed By: #### 2 4321-2 ####[facility]ORATORYCLIA [id number] [place] [address] [place] Calcium [Mass/Vol] 8.8 mg/dL Normal 8.5-10.2 [facility] Comment on above: Order Comment: Speci men Type: BLOOD SPECIMENOrdering Facility: [facility] Address: [address] [place] [address] Performed By: #### 2 4321-2 ####[facility]ORATORYCLIA [id number] [place] [address] [place] Chloride [Moles/Vol] 102 mmol/L Normal 97-105 [facility] Comment on above: Order Comment: Speci men Type: BLOOD SPECIMENOrdering Facility: [facility] Address: [address] [place] [address] Performed By: #### 2 4321-2 ####[facility]ATORYCLIA [id number] [place] [address] [place] CO2 [Moles/Vol] 27 mmol/L Normal 22-30 [facility] Comment on above: Order Comment: Speci men Type: BLOOD SPECIMENOrdering Facility: [facility] Address: [address] [place] [address] Performed By: #### 2 4321-2 ####[facility]ATORYCLIA [id number] [place] [address] [place] Creatinine [Mass/Vol] 0.69 mg/dL Normal 0.58-0.96 [facility] Comment on above: Order Comment: Tawanda mosley Type: BLOOD SPECIMENOrdering Facility: [facility] Address: [address] [place] [address] Performed By: #### 2 4321-2 ####[facility] SERVICESIA [id number] [address] [place] ESTIMATED GLOMERULAR FILTRATION RATE 101 mL/min/1.73m??? Normal >=60 [facility] Comment on above: Order Comment: Tawanda mosley Type: BLOOD SPECIMENOrdering Facility: [facility] Address: [address] [place] [address] Result Comment: Manasa mated Glomerular Filtration Rate [...] Performed By: #### 2 4321-2 ####[facility] SERVICESIA [id number] [place] [address] [place] Glucose [Mass/Vol] 147 mg/dL High 74-99 [facility] Comment on above: Order Comment: Tawanda mosley Type: BLOOD SPECIMENOrdering Facility: [facility] Address: [address] [place] [address] Result Comment: The [place] [employer] (ADA) provides guidance for cutoff [...] Standards of Medical Care in Diabetes 2016, [place] [employer]. Diabetes Care. 2016.39(Suppl 1). Performed By: #### 2 4321-2 ####[facility]ORATORYCLIA [id number] [place] [address] [place] Potassium [Moles/Vol] 3.8 mmol/L Normal 3.7-5.1 [facility] Comment on above: Order Comment: Speci men Type: BLOOD SPECIMENOrdering Facility: [facility] Address: [address] [place] [address] Performed By: #### 2 4321-2 ####[facility]ORATORYCLIA [id number] [place] [address] [place] Sodium [Moles/Vol] 140 mmol/L Normal 136-144 [facility] Comment on above: Order Comment: Speci men Type: BLOOD SPECIMENOrdering Facility: [facility] Address: [address] [place] [address] Performed By: #### 2 4321-2 ####[facility]ORATORYCLIA [id number] [place] [address] [place] Urea nitrogen [Mass/Vol] 11 mg/dL Normal 7-21 [facility] Comment on above: Order Comment: Speci men Type: BLOOD SPECIMENOrdering Facility: [facility] Address: [address] [place] [address] Performed By: #### 2 4321-2 ####[facility]ORATORYCLIA [id number] [address] [place] CASE MANAGEMon 10-09-2022 CASE MANAGEM Normal [facility] CONSULTon 10-09-2022 CONSULT Normal [facility] CONSULT PROGon 10-09-2022 CONSULT PROG Normal [facility] Vancomycin random [Mass/Vol] on 10-09-2022 Vancomycin [Mass/Vol] 13.6 ug/mL Normal 10.0-20.0 [facility] Comment on above: Order Comment: Speci men Type: BLOOD SPECIMENOrdering Facility: [facility] Address: [address] [place] [address] Result Comment: Refe rence ranges and high/low indicator flags are provided as general guidelines only. The treating physician must determine appropriate target levels/dosing based on the specific clinical situation. Performed By: #### 4 091-5 ####[facility]ATORYCLIA [id number] [address] OF [facility] Basic metabolic 2000 panelon 10-08-2022 Anion gap [Moles/Vol] 8 mmol/L Low 9-18 [facility] Comment on above: Order Comment: Speci men Type: BLOOD SPECIMENOrdering Facility: [facility] Address: [address] [place] [address] Performed By: #### 2 4321-2 ####[facility]ATORYCLIA [id number] [address] STATES OF [facility] Calcium [Mass/Vol] 8.7 mg/dL Normal 8.5-10.2 [facility] Comment on above: Order Comment: Speci men Type: BLOOD SPECIMENOrdering Facility: [facility] Address: [address] [place] [address] Performed By: #### 2 4321-2 ####[facility]ORATORYCLIA [id number] [address] STATES OF [facility] Chloride [Moles/Vol] 103 mmol/L Normal 97-105 [facility] Comment on above: Order Comment: Speci men Type: BLOOD SPECIMENOrdering Facility: [facility] Address: [address] [place] [address] Performed By: #### 2 4321-2 ####[facility]ATORYCLIA [id number] [address] [place] CO2 [Moles/Vol] 30 mmol/L Normal 22-30 [facility] Comment on above: Order Comment: Speci men Type: BLOOD SPECIMENOrdering Facility: [facility] Address: [address] [place] [address] Performed By: #### 2 4321-2 ####[facility]ATORYCLIA [id number] [address] [place] Creatinine [Mass/Vol] 0.64 mg/dL Normal 0.58-0.96 [facility] Comment on above: Order Comment: Tawanda melany Type: BLOOD SPECIMENOrdering Facility: [facility] Address: [address] [place] [address] Performed By: #### 2 4321-2 ####[facility] SERVICESIA [id number] [address] ESTIMATED GLOMERULAR FILTRATION RATE 103 mL/min/1.73m??? Normal >=60 [facility] Comment on above: Order Comment: Tawanda melany Type: BLOOD SPECIMENOrdering Facility: [facility] Address: [address] [place] [address] Result Comment: Manasa mated Glomerular Filtration Rate [...] Performed By: #### 2 4321-2 ####[facility] SERVICESIA [id number] [place] [address] [place] Glucose [Mass/Vol] 119 mg/dL High 74-99 [facility] Comment on above: Order Comment: Leobardofredy mosley Type: BLOOD SPECIMENOrdering Facility: [facility] Address: [address] [place] [address] Result Comment: The [place] [employer] (ADA) provides guidance for cutoff [...] Standards of Medical Care in Diabetes 2016, [place] [employer]. Diabetes Care. 2016.39(Suppl 1). Performed By: #### 2 4321-2 ####[facility]ORATORYCLIA [id number] [place] [address] [place] Potassium [Moles/Vol] 4.0 mmol/L Normal 3.7-5.1 [facility] Comment on above: Order Comment: Speci men Type: BLOOD SPECIMENOrdering Facility: [facility] Address: [address] [place] [address] Performed By: #### 2 4321-2 ####[facility]ATORYCLIA [id number] [address] [place] Sodium [Moles/Vol] 141 mmol/L Normal 136-144 [facility] Comment on above: Order Comment: Speci men Type: BLOOD SPECIMENOrdering Facility: [facility] Address: [address] [place] [address] Performed By: #### 2 4321-2 ####[facility]ORATORYCLIA [id number] [address] [place] Urea nitrogen [Mass/Vol] 10 mg/dL Normal 7-21 [facility] Comment on above: Order Comment: Speci men Type: BLOOD SPECIMENOrdering Facility: [facility] Address: [address] [place] [address] Performed By: #### 2 4321-2 ####[facility]ATORYCLIA [id number] [address] [place] CONSULTon 10-08-2022 CONSULT Normal [facility] CONSULT PROGon 10-08-2022 CONSULT PROG Normal [facility] NURSING PROGon 10-08-2022 NURSING PROG Normal [facility] ALLIED HEALTHon 10-07-2022 ALLIED HEALTH Normal [facility] Basic metabolic 2000 panelon 10-07-2022 Anion gap [Moles/Vol] 8 mmol/L Low 9-18 [facility] Comment on above: Order Comment: Speci men Type: BLOOD SPECIMENOrdering Facility: [facility] Address: [address] [place] [address] Performed By: #### 1 9123-9, 2777-1, 69138-4 ####[facility]ATORYCLIA [id number] [place] [address] [place] Calcium [Mass/Vol] 8.7 mg/dL Normal 8.5-10.2 [facility] Comment on above: Order Comment: Speci men Type: BLOOD SPECIMENOrdering Facility: [facility] Address: [address] [place] [address] Performed By: #### 1 9123-9, 2777, 74087-8 ####[facility]ORATORYCLIA [id number] [place] [address] [place] Chloride [Moles/Vol] 103 mmol/L Normal 97-105 [facility] Comment on above: Order Comment: Speci men Type: BLOOD SPECIMENOrdering Facility: [facility] Address: [address] [place] [address] Performed By: #### 1 9123-9, 27701-11, 53902-6 ####[facility]ORATORYCLIA [id number] [address] [place] CO2 [Moles/Vol] 30 mmol/L Normal 22-30 [facility] Comment on above: Order Comment: Speci men Type: BLOOD SPECIMENOrdering Facility: [facility] Address: [address] [place] [address] Performed By: #### 1 9123-9, 27701-11, 42172-3 ####[facility]ORATORYCLIA [id number] [address] [place] Creatinine [Mass/Vol] 0.71 mg/dL Normal 0.58-0.96 [facility] Comment on above: Order Comment: Speci men Type: BLOOD SPECIMENOrdering Facility: [facility] Address: [address] [place] [address] Performed By: #### 1 9123-9, 2777, 06873-7 ####[facility]ORATORYCLIA [id number] [address] [place] ESTIMATED GLOMERULAR FILTRATION RATE 99 mL/min/1.73m??? Normal >=60 [facility] Comment on above: Order Comment: Tawanda mosley Type: BLOOD SPECIMENOrdering Facility: [facility] Address: [address] [id number] Result Comment: Manasa mated Glomerular Filtration Rate [...] actual GFR. Performed By: #### 1 9123-9, 2777-1, 19159-6 ####[facility]ORATORYCLIA [id number] [place] [address] [place] Glucose [Mass/Vol] 156 mg/dL High 74-99 [facility] Comment on above: Order Comment: Tawanda mosley Type: BLOOD SPECIMENOrdering Facility: [facility] Address: [address] [address] Result Comment: The [place] [employer] Association (ADA) provides guidance for cutoff [...] Standards of Medical Care in Diabetes 2016, [place] [employer]. Diabetes Care. 2016.39(Suppl 1). Performed By: #### 1 9123-9, 2777-1, 54510-5 ####[facility]ORATORYCLIA [id number] [place] [address] [place] Potassium [Moles/Vol] 3.8 mmol/L Normal 3.7-5.1 [facility] Comment on above: Order Comment: Tawanda mosley Type: BLOOD SPECIMENOrdering Facility: [facility] Address: [address] [address] Performed By: #### 1 9123-9, 2777-, 94365-7 ####[facility] LABORATORYCLIA [id number] [place] [address] [place] Sodium [Moles/Vol] 141 mmol/L Normal 136-144 [facility] Comment on above: Order Comment: Speci men Type: BLOOD SPECIMENOrdering Facility: [facility] Address: [address] [address] Performed By: #### 1 9123-9, 2777, 56909-4 ####[facility]ORATORYCLIA [id number] [place] [address] [place] Urea nitrogen [Mass/Vol] 11 mg/dL Normal 7-21 [facility] Comment on above: Order Comment: Speci men Type: BLOOD SPECIMENOrdering Facility: [facility] Address: [address] [place] [address] Performed By: #### 1 9123-9, 2777, 34479-2 ####[facility]ORATORYCLIA [id number] [place] [address] [place] Anion gap [Moles/Vol] 7 mmol/L Low 9-18 [facility] Comment on above: Order Comment: Speci men Type: BLOOD SPECIMENOrdering Facility: [facility] Address: [address] [place] [address] Performed By: #### 2 4321-2 ####[facility]ATORYCLIA [id number] [place] [address] [place] Calcium [Mass/Vol] 8.8 mg/dL Normal 8.5-10.2 [facility] Comment on above: Order Comment: Speci men Type: BLOOD SPECIMENOrdering Facility: [facility] Address: [address] [place] [address] Performed By: #### 2 4321-2 ####[facility]ATORYCLIA [id number] [place] [address] [place] Chloride [Moles/Vol] 103 mmol/L Normal 97-105 [facility] Comment on above: Order Comment: Speci men Type: BLOOD SPECIMENOrdering Facility: [facility] Address: [address] [place] [address] Performed By: #### 2 4321-2 ####[facility]ORATORYCLIA [id number] [address] [place] CO2 [Moles/Vol] 30 mmol/L Normal 22-30 [facility] Comment on above: Order Comment: Speci men Type: BLOOD SPECIMENOrdering Facility: [facility] Address: [address] [place] [address] Performed By: #### 2 4321-2 ####[facility] LABORATORYCLIA [id number] [address] Creatinine [Mass/Vol] 0.68 mg/dL Normal 0.58-0.96 [facility] Comment on above: Order Comment: Speci men Type: BLOOD SPECIMENOrdering Facility: [facility] Address: [address] [place] [address] Performed By: #### 2 4321-2 ####[facility]ORATORYCLIA [id number] [address] ESTIMATED GLOMERULAR FILTRATION RATE 101 mL/min/1.73m??? Normal >=60 [facility] Comment on above: Order Comment: Speci men Type: BLOOD SPECIMENOrdering Facility: [facility] Address: [address] [place] [address] Result Comment: Manasa mated Glomerular Filtration Rate [...] actual GFR. Performed By: #### 2 4321-2 ####[facility] LABORATORYCLIA [id number] [address] STATES OF [facility] Glucose [Mass/Vol] 118 mg/dL High 74-99 [facility] Comment on above: Order Comment: Speci men Type: BLOOD SPECIMENOrdering Facility: [facility] Address: [address] [place] [address] Result Comment: The [place] [employer] (ADA) provides guidance for cutoff [...] Standards of Medical Care in Diabetes 2016, [place] [employer]. Diabetes Care. 2016.39(Suppl 1). Performed By: #### 2 4321-2 ####[facility]ORATORYCLIA [id number] [place] [address] [place] Potassium [Moles/Vol] 4.0 mmol/L Normal 3.7-5.1 [facility] Comment on above: Order Comment: Leobardoi melany Type: BLOOD SPECIMENOrdering Facility: [facility] Address: [address] [place] [address] Performed By: #### 2 4321-2 ####[facility]ORATORYCLIA [id number] [place] [address] [place] Sodium [Moles/Vol] 140 mmol/L Normal 136-144 [facility] Comment on above: Order Comment: Speci men Type: BLOOD SPECIMENOrdering Facility: [facility] Address: [address] [place] [address] Performed By: #### 2 4321-2 ####[facility]ORATORYCLIA [id number] [place] [address] [place] Urea nitrogen [Mass/Vol] 13 mg/dL Normal 7-21 [facility] Comment on above: Order Comment: Speci men Type: BLOOD SPECIMENOrdering Facility: [facility] Address: [address] [place] [address] Performed By: #### 2 4321-2 ####[facility]ORATORYCLIA [id number] [address] OF [facility] CASE MGT INIT ASSESon 2022 CASE MGT INIT ASSES Normal [facility] CBC panel Auto (Bld)on 10-07 Erythrocyte distribution width (RBC) [Ratio] 13.4 % Normal 11.5-15.0 [facility] Comment on above: Order Comment: Speci men Type: BLOOD SPECIMENOrdering Facility: [facility] Address: [address] [place] [address] Performed By: #### 5 8410-2 ####[facility] LABORATORYCLIA [id number] [address] STATES OF [facility] Hematocrit (Bld) [Volume fraction] 36.2 % Normal 36.0-46.0 [facility] Comment on above: Order Comment: Speci men Type: BLOOD SPECIMENOrdering Facility: [facility] Address: [address] [place] [address] Performed By: #### 5 8410-2 ####[facility]ORATORYCLIA [id number] [address] [place] Hemoglobin (Bld) [Mass/Vol] 11.5 g/dL Normal 11.5-15.5 [facility] Comment on above: Order Comment: Speci men Type: BLOOD SPECIMENOrdering Facility: [facility] Address: [address] [place] [address] Performed By: #### 5 8410-2 ####[facility]ORATORYCLIA [id number] 06 [address] [place] MCH (RBC) [Entitic mass] 28.1 pg Normal 26.0-34.0 [facility] Comment on above: Order Comment: Speci men Type: BLOOD SPECIMENOrdering Facility: [facility] Address: [address] [place] [address] Performed By: #### 5 8410-2 ####[facility] LABORATORYCLIA [id number] [address] STATES OF [facility] MCHC (RBC) [Mass/Vol] 31.8 g/dL Normal 30.5-36.0 [facility] Comment on above: Order Comment: Speci men Type: BLOOD SPECIMENOrdering Facility: [facility] Address: [address] [place] [address] Performed By: #### 5 8410-2 ####[facility] LABORATORYCLIA [id number] [address] [place] MCV (RBC) [Entitic vol] 88.5 fL Normal 80.0-100.0 [facility] Comment on above: Order Comment: Speci men Type: BLOOD SPECIMENOrdering Facility: [facility] Address: [address] [place] [address] Performed By: #### 5 8410-2 ####[facility] LABORATORYCLIA [id number] [address] [place] Nucleated RBC (Bld) [#/Vol] 10*3/uL Normal <0.01 [facility] Comment on above: Order Comment: Speci men Type: BLOOD SPECIMENOrdering Facility: [facility] Address: [address] [place] [address] Performed By: #### 5 8410-2 ####[facility] LABORATORYCLIA [id number] [address] [place] Platelet mean volume (Bld) [Entitic vol] 10.5 fL Normal 9.0-12.7 [facility] Comment on above: Order Comment: Speci men Type: BLOOD SPECIMENOrdering Facility: [facility] Address: [address] [place] [address] Performed By: #### 5 8410-2 ####[facility] LABORATORYCLIA [id number] [address] [place] Platelets (Bld) [#/Vol] 245 10*3/uL Normal 150-400 [facility] Comment on above: Order Comment: Speci men Type: BLOOD SPECIMENOrdering Facility: [facility] Address: [address] [address] Performed By: #### 5 8410-2 ####[facility] LABORATORYCLIA [id number] [address] RBC (Bld) [#/Vol] 4.09 10*6/uL Normal 3.90-5.20 [facility] Comment on above: Order Comment: Speci men Type: BLOOD SPECIMENOrdering Facility: [facility] Address: [address] [address] Performed By: #### 5 8410-2 ####[facility] LABORATORYCLIA [id number] [address] WBC (Bld) [#/Vol] 9.20 10*3/uL Normal 3.70-11.00 [facility] Comment on above: Order Comment: Speci men Type: BLOOD SPECIMENOrdering Facility: [facility] Address: [address] [place] [address] Performed By: #### 5 8410-2 ####[facility] LABORATORYCLIA [id number] [address] Erythrocyte distribution width (RBC) [Ratio] 13.6 % Normal 11.5-15.0 [facility] Comment on above: Order Comment: Speci men Type: BLOOD SPECIMENOrdering Facility: [facility] Address: [address] [place] [address] Performed By: #### 5 8410-2 ####[facility] LABORATORYCLIA [id number] [address] Hematocrit (Bld) [Volume fraction] 38.7 % Normal 36.0-46.0 [facility] Comment on above: Order Comment: Speci men Type: BLOOD SPECIMENOrdering Facility: [facility] Address: [address] [place] [address] Performed By: #### 5 8410-2 ####[facility]ORATORYCLIA [id number] [address] Hemoglobin (Bld) [Mass/Vol] 11.8 g/dL Normal 11.5-15.5 [facility] Comment on above: Order Comment: Speci men Type: BLOOD SPECIMENOrdering Facility: [facility] Address: [address] [place] [address] Performed By: #### 5 8410-2 ####[facility] LABORATORYCLIA [id number] [address] MCH (RBC) [Entitic mass] 27.8 pg Normal 26.0-34.0 [facility] Comment on above: Order Comment: Speci men Type: BLOOD SPECIMENOrdering Facility: [facility] Address: [address] [place] [address] Performed By: #### 5 8410-2 ####[facility]ORATORYCLIA [id number] [address] MCHC (RBC) [Mass/Vol] 30.5 g/dL Normal 30.5-36.0 [facility] Comment on above: Order Comment: Speci men Type: BLOOD SPECIMENOrdering Facility: [facility] Address: [address] [place] [address] Performed By: #### 5 8410-2 ####[facility]ORATORYCLIA [id number] [address] MCV (RBC) [Entitic vol] 91.3 fL Normal 80.0-100.0 [facility] Comment on above: Order Comment: Speci men Type: BLOOD SPECIMENOrdering Facility: [facility] Address: [address] [place] [address] Performed By: #### 5 8410-2 ####[facility]ORATORYCLIA [id number] [address] Nucleated RBC (Bld) [#/Vol] 10*3/uL Normal <0.01 [facility] Comment on above: Order Comment: Speci men Type: BLOOD SPECIMENOrdering Facility: [facility] Address: [address] [place] [address] Performed By: #### 5 8410-2 ####[facility]ORATORYCLIA [id number] [address] [place] Platelet mean volume (Bld) [Entitic vol] 10.4 fL Normal 9.0-12.7 [facility] Comment on above: Order Comment: Speci men Type: BLOOD SPECIMENOrdering Facility: [facility] Address: [address] [place] [address] Performed By: #### 5 8410-2 ####[facility]ORATORYCLIA [id number] [place] [address] [place] Platelets (Bld) [#/Vol] 232 10*3/uL Normal 150-400 [facility] Comment on above: Order Comment: Speci men Type: BLOOD SPECIMENOrdering Facility: [facility] Address: [address] [place] [address] Performed By: #### 5 8410-2 ####[facility]ORATORYCLIA [id number] [place] [address] [place] RBC (Bld) [#/Vol] 4.24 10*6/uL Normal 3.90-5.20 [facility] Comment on above: Order Comment: Speci men Type: BLOOD SPECIMENOrdering Facility: [facility] Address: [address] [place] [address] Performed By: #### 5 8410-2 ####[facility]ORATORYCLIA [id number] [place] [address] [place] WBC (Bld) [#/Vol] 9.85 10*3/uL Normal 3.70-11.00 [facility] Comment on above: Order Comment: Speci men Type: BLOOD SPECIMENOrdering Facility: [facility] Address: [address] [place] [address] Performed By: #### 5 8410-2 ####[facility]ORATORYCLIA [id number] [address] [place] CONSULTon 10-07-2022 CONSULT Normal [facility] CONSULT PROGon 10-07-2022 CONSULT PROG Normal [facility] CONSULT PROG Normal [facility] CT BRAIN WO IVCONon 10-08-19 CT BRAIN WO IVCON Normal [facility] CT FOREARM W IVCON RTon 03- CT FOREARM W IVCON RT Normal [facility] Gas and Carbon monoxide pane l (BldV)on 10-07-2022 Base excess Calc (BldV) [Moles/Vol] 4 mmol/L High 0-2 [facility] Comment on above: Order Comment: Speci men Type: VENOUS BLOOD SPECIMENOrdering Facility: [facility] Address: [address] [place] [address] Performed By: #### 2 4344-4 ####[facility]ORATORYCLIA [id number] [address] [place] Body temperature 98.6 [degF] Normal [facility] Comment on above: Order Comment: Speci men Type: VENOUS BLOOD SPECIMENOrdering Facility: [facility] Address: [address] [place] [address] Performed By: #### 2 4344-4 ####[facility]ORATORYCLIA [id number] [address] [place] Calcium.ionized (BldV) [Mass/Vol] 1.15 mmol/L Normal 1.08-1.30 [facility] Comment on above: Order Comment: Speci men Type: VENOUS BLOOD SPECIMENOrdering Facility: [facility] Address: [address] [place] [address] Performed By: #### 2 4344-4 ####[facility]ORATORYCLIA [id number] [address] [place] Calcium.ionized adjusted to pH 7.4 (BldA) [Moles/Vol] 1.10 mmol/L Normal 1.08-1.30 [facility] Comment on above: Order Comment: Speci men Type: VENOUS BLOOD SPECIMENOrdering Facility: [facility] Address: [address] [place] [address] Performed By: #### 2 4344-4 ####[facility]ORATORYCLIA [id number] [address] [place] Carboxyhemoglobin (BldV) [Mass fraction] 1.9 % Normal 0.0-2.0 [facility] Comment on above: Order Comment: Speci men Type: VENOUS BLOOD SPECIMENOrdering Facility: [facility] Address: [address] [place] [address] Result Comment: Carb oxyhemoglobin Reference Range for Smokers: 2.0-8.0% Performed By: #### 2 4344-4 ####[facility]ORATORYCLIA [id number] [address] [place] Chloride [Moles/Vol] 104 mmol/L Normal 102-109 [facility] Comment on above: Order Comment: Speci men Type: VENOUS BLOOD SPECIMENOrdering Facility: [facility] Address: [address] [place] [address] Performed By: #### 2 4344-4 ####[facility]ORATORYCLIA [id number] [address] [place] CO2 (BldV) [Partial pressure] 61 mm[Hg] High 42-55 [facility] Comment on above: Order Comment: Speci men Type: VENOUS BLOOD SPECIMENOrdering Facility: [facility] Address: [address] [place] [address] Performed By: #### 2 4344-4 ####[facility]ORATORYCLIA [id number] [place] [address] [place] CO2 [Moles/Vol] 28 mmol/L Normal 25-29 [facility] Comment on above: Order Comment: Speci men Type: VENOUS BLOOD SPECIMENOrdering Facility: [facility] Address: [address] [address] Performed By: #### 2 4344-4 ####[facility]ORATORYCLIA [id number] [place] [address] [place] Glucose [Mass/Vol] 152 mg/dL High 60-105 [facility] Comment on above: Order Comment: Speci men Type: VENOUS BLOOD SPECIMENOrdering Facility: [facility] Address: [address] [address] Performed By: #### 2 4344-4 ####[facility]ATORYCLIA [id number] [address] [place] HCO3 (Bld) [Moles/Vol] 31 mmol/L High 24-28 [facility] Comment on above: Order Comment: Speci men Type: VENOUS BLOOD SPECIMENOrdering Facility: [facility] Address: [address] [address] Performed By: #### 2 4344-4 ####[facility]ORATORYCLIA [id number] [address] OF [facility] Hematocrit (Bld) [Volume fraction] 37.3 % Normal 36.0-46.0 [facility] Comment on above: Order Comment: Speci men Type: VENOUS BLOOD SPECIMENOrdering Facility: [facility] Address: [address] [address] Performed By: #### 2 4344-4 ####[facility]ORATORYCLIA [id number] [address] [place] Hemoglobin (Bld) [Mass/Vol] 12.1 g/dL Normal 11.5-15.5 [facility] Comment on above: Order Comment: Speci men Type: VENOUS BLOOD SPECIMENOrdering Facility: [facility] Address: [address] [address] Performed By: #### 2 4344-4 ####[facility]ATORYCLIA [id number] [address] [place] Lactate [Moles/Vol] 1.7 mmol/L Normal 0.5-2.2 [facility] Comment on above: Order Comment: Speci men Type: VENOUS BLOOD SPECIMENOrdering Facility: [facility] Address: [address] [address] Performed By: #### 2 4344-4 ####[facility]ATORYCLIA [id number] [address] [place] Methemoglobin (Bld) [Mass fraction] % Normal 0.0-1.5 [facility] Comment on above: Order Comment: Speci men Type: VENOUS BLOOD SPECIMENOrdering Facility: [facility] Address: [address] [place] [address] Performed By: #### 2 4344-4 ####[facility] LABORATORYCLIA [id number] [address] [place] O2 THERAPY NC = Nasal Cannula Normal [facility] Comment on above: Order Comment: Speci men Type: VENOUS BLOOD SPECIMENOrdering Facility: [facility] Address: [address] [place] [address] Result Comment: 6 Performed By: #### 2 4344-4 ####[facility]ORATORYCLIA [id number] [address] [place] Oxygen (BldV) [Partial pressure] 196 mm[Hg] High 35-45 [facility] Comment on above: Order Comment: Speci men Type: VENOUS BLOOD SPECIMENOrdering Facility: [facility] Address: [address] [place] [address] Performed By: #### 2 4344-4 ####[facility]ORATORYCLIA [id number] [address] [place] Oxygen saturation in Venous blood 100 % High 60-85 [facility] Comment on above: Order Comment: Speci men Type: VENOUS BLOOD SPECIMENOrdering Facility: [facility] Address: [address] [place] [address] Performed By: #### 2 4344-4 ####[facility] LABORATORYCLIA [id number] [address] [place] Oxyhemoglobin (BldV) [Mass fraction] 97 % High 60-85 [facility] Comment on above: Order Comment: Speci men Type: VENOUS BLOOD SPECIMENOrdering Facility: [facility] Address: [address] [address] Performed By: #### 2 4344-4 ####[facility]ORATORYCLIA [id number] [place] [address] [place] pH (BldV) 7.32 [pH] Normal 7.32-7.42 [facility] Comment on above: Order Comment: Speci men Type: VENOUS BLOOD SPECIMENOrdering Facility: [facility] Address: [address] [place] [address] Performed By: #### 2 4344-4 ####[facility]ORATORYCLIA [id number] [place] [address] [place] Potassium [Moles/Vol] 3.7 mmol/L Normal 3.5-5.0 [facility] Comment on above: Order Comment: Speci men Type: VENOUS BLOOD SPECIMENOrdering Facility: [facility] Address: [address] [place] [address] Performed By: #### 2 4344-4 ####[facility]ORATORYCLIA [id number] [address] [place] [facility] Sodium [Moles/Vol] 140 mmol/L Normal 136-144 [facility] Comment on above: Order Comment: Speci men Type: VENOUS BLOOD SPECIMENOrdering Facility: [facility] Address: [address] [place] [address] Performed By: #### 2 4344-4 ####[facility]ORATORYCLIA [id number] [place] [address] [place] Magnesium SerPl-mCncon 10-07 Magnesium [Mass/Vol] 2.0 mg/dL Normal 1.7-2.3 [facility] Comment on above: Order Comment: Speci men Type: BLOOD SPECIMENOrdering Facility: [facility] Address: [address] [place] [address] Performed By: #### 1 9123-9, 2777-1, 55689-0 ####[facility]ORATORYCLIA [id number] [place] [address] [place] NURSING PROGon 10-07-2022 NURSING PROG Normal [facility] Phosphate SerPl-mCncon 10-07 Phosphate [Mass/Vol] 4.0 mg/dL Normal 2.7-4.8 [facility] Comment on above: Order Comment: Tawanda mosley Type: BLOOD SPECIMENOrdering Facility: [facility] Address: [address] [address] Performed By: #### 1 9123-9, 2777-1, 02736-3 ####[facility]ORATORYCLIA [id number] [place] [address] [place] Vancomycin random [Mass/Vol] on 10-07-2022 Vancomycin [Mass/Vol] 17.0 ug/mL Normal 10.0-20.0 [facility] Comment on above: Order Comment: Tawanda mosley Type: BLOOD SPECIMENOrdering Facility: [facility] Address: [address] [address] Result Comment: Refe rence ranges and high/low indicator flags are provided as general guidelines only. The treating physician must determine appropriate target levels/dosing based on the specific clinical situation. Performed By: #### 4 091-5 ####[facility]ORATORYCLIA [id number] [address] [place] levETIRAcetam SerPl-mCncon 0 10-07-2022 levETIRAcetam [Mass/Vol] 30.9 ug/mL Normal 12.0-46.0 [facility] Comment on above: Order Comment: Tawanda mosley Type: BLOOD SPECIMENOrdering Facility: [facility] Address: [address] [address] Result Comment: This test is not suitable for patients receiving treatment with the drug brivaracetam (Briviact). The drug causes an interference that may lead to falsely elevated levetiracetam results.Reference ranges and high/low indicator flags are provided as general guidelines only. The treating physician must determine appropriate target levels/dosing based on the specific clinical situation.This test was developed and its performance characteristics determined by [facility]'s Zaida Rodriguez [facility] Pathology and Laboratory Medicine [place] ([facility]). It has not been cleared or approved by the FDA. [facility] is regulated under CLIA as qualified to perform high-complexity testing. This test is used for clinical purposes. It should not be regarded as investigational or for research. Performed By: #### 3 0471-7 ####[facility] LABCLIA [id number] [facility] [id number] Bacteria Bld Culton 10-07-19 23 Bacteria identified Cx Nom (Bld) CULTURE, BLOOD: No growth 5 days Normal [facility] Comment on above: Performed By: #### 6 00-7 ####[facility]ORATORYCLIA [id number] [address] OF [facility] CBC W Auto Differential pane l (Bld)on 10-06-2022 Basophils (Bld) [#/Vol] 0.08 10*3/uL Normal <0.11 [facility] Comment on above: Order Comment: Speci men Type: BLOOD SPECIMENOrdering Facility: [facility] Address: [address] [address] Performed By: #### 5 7021-8 ####[facility]ITALCL[facility] [id number] [address] STATES OF [facility] Basophils/100 WBC (Bld) 0.9 % Normal [facility] Comment on above: Order Comment: Speci men Type: BLOOD SPECIMENOrdering Facility: [facility] Address: [address] [address] Performed By: #### 5 7021-8 ####[facility]ORATORYCLIA [id number] [address] Differential cell count method Nom (Bld) Auto Normal [facility] Comment on above: Order Comment: Speci men Type: BLOOD SPECIMENOrdering Facility: [facility] Address: [address] [address] Performed By: #### 5 7021-8 ####[facility]ORATORYCLIA [id number] [address] [place] Eosinophils (Bld) [#/Vol] 0.30 10*3/uL Normal <0.46 [facility] Comment on above: Order Comment: Speci men Type: BLOOD SPECIMENOrdering Facility: [facility] Address: [address] [address] Performed By: #### 5 7021-8 ####[facility]ORATORYCLIA [id number] [address] [place] Eosinophils/100 WBC (Bld) 3.3 % Normal [facility] Comment on above: Order Comment: Speci men Type: BLOOD SPECIMENOrdering Facility: [facility] Address: [address] [address] Performed By: #### 5 7021-8 ####[facility]ORATORYCLIA [id number] [address] Erythrocyte distribution width (RBC) [Ratio] 13.2 % Normal 11.5-15.0 [facility] Comment on above: Order Comment: Speci men Type: BLOOD SPECIMENOrdering Facility: [facility] Address: [address] [place] [address] Performed By: #### 5 7021-8 ####[facility] LABORATORYCLIA [id number] [address] Hematocrit (Bld) [Volume fraction] 39.3 % Normal 36.0-46.0 [facility] Comment on above: Order Comment: Speci men Type: BLOOD SPECIMENOrdering Facility: [facility] Address: [address] [place] [address] Performed By: #### 5 7021-8 ####[facility]ORATORYCLIA [id number] [address] [place] Hemoglobin (Bld) [Mass/Vol] 12.4 g/dL Normal 11.5-15.5 [facility] Comment on above: Order Comment: Speci men Type: BLOOD SPECIMENOrdering Facility: [facility] Address: [address] [place] [address] Performed By: #### 5 7021-8 ####[facility]ORATORYCLIA [id number] [address] Immature granulocytes (Bld) [#/Vol] 0.04 10*3/uL Normal <0.10 [facility] Comment on above: Order Comment: Speci men Type: BLOOD SPECIMENOrdering Facility: [facility] Address: [address] [address] Performed By: #### 5 7021-8 ####[facility] LABORATORYCLIA [id number] [address] [place] [facility] Immature granulocytes/100 WBC (Bld) 0.4 % Normal [facility] Comment on above: Order Comment: Speci men Type: BLOOD SPECIMENOrdering Facility: [facility] Address: [address] [place] [address] Performed By: #### 5 7021-8 ####[facility] LABORATORYCLIA [id number] [address] [place] Lymphocytes (Bld) [#/Vol] 3.05 10*3/uL Normal 1.00-4.00 [facility] Comment on above: Order Comment: Speci men Type: BLOOD SPECIMENOrdering Facility: [facility] Address: [address] [address] Performed By: #### 5 7021-8 ####[facility]ORATORYCLIA [id number] [address] Lymphocytes/100 WBC (Bld) 33.5 % Normal [facility] Comment on above: Order Comment: Speci men Type: BLOOD SPECIMENOrdering Facility: [facility] Address: [address] [address] Performed By: #### 5 7021-8 ####[facility]ORATORYCLIA [id number] [address] [place] MCH (RBC) [Entitic mass] 27.9 pg Normal 26.0-34.0 [facility] Comment on above: Order Comment: Speci men Type: BLOOD SPECIMENOrdering Facility: [facility] Address: [address] [place] [address] Performed By: #### 5 7021-8 ####[facility]ORATORYCLIA [id number] [address] [place] MCHC (RBC) [Mass/Vol] 31.6 g/dL Normal 30.5-36.0 [facility] Comment on above: Order Comment: Speci men Type: BLOOD SPECIMENOrdering Facility: [facility] Address: [address] [place] [address] Performed By: #### 5 7021-8 ####[facility] LABORATORYCLIA [id number] [address] [place] MCV (RBC) [Entitic vol] 88.5 fL Normal 80.0-100.0 [facility] Comment on above: Order Comment: Speci men Type: BLOOD SPECIMENOrdering Facility: [facility] Address: [address] [place] [address] Performed By: #### 5 7021-8 ####[facility]ORATORYCLIA [id number] [address] [place] Monocytes (Bld) [#/Vol] 0.73 10*3/uL Normal <0.87 [facility] Comment on above: Order Comment: Speci men Type: BLOOD SPECIMENOrdering Facility: [facility] Address: [address] [place] [address] Performed By: #### 5 7021-8 ####[facility]ORATORYCLIA [id number] [address] Monocytes/100 WBC (Bld) 8.0 % Normal [facility] Comment on above: Order Comment: Speci men Type: BLOOD SPECIMENOrdering Facility: [facility] Address: [address] [place] [address] Performed By: #### 5 7021-8 ####[facility] LABORATORYCLIA [id number] [address] [place] Neutrophils (Bld) [#/Vol] 4.90 10*3/uL Normal 1.45-7.50 [facility] Comment on above: Order Comment: Speci men Type: BLOOD SPECIMENOrdering Facility: [facility] Address: [address] [address] Performed By: #### 5 7021-8 ####[facility]ORATORYCLIA [id number] [address] Neutrophils/100 WBC (Bld) 53.9 % Normal [facility] Comment on above: Order Comment: Speci men Type: BLOOD SPECIMENOrdering Facility: [facility] Address: [address] [place] [address] Performed By: #### 5 7021-8 ####[facility] LABORATORYCLIA [id number] [address] Nucleated RBC (Bld) [#/Vol] 10*3/uL Normal <0.01 [facility] Comment on above: Order Comment: Speci men Type: BLOOD SPECIMENOrdering Facility: [facility] Address: [address] [place] [address] Performed By: #### 5 7021-8 ####[facility] LABORATORYCLIA [id number] [address] Nucleated RBC/100 WBC (Bld) [Ratio] 0.0 /100 WBC Normal [facility] Comment on above: Order Comment: Speci men Type: BLOOD SPECIMENOrdering Facility: [facility] Address: [address] [place] [address] Performed By: #### 5 7021-8 ####[facility] LABORATORYCLIA [id number] [address] Platelet mean volume (Bld) [Entitic vol] 10.6 fL Normal 9.0-12.7 [facility] Comment on above: Order Comment: Speci men Type: BLOOD SPECIMENOrdering Facility: [facility] Address: [address] [place] [address] Performed By: #### 5 7021-8 ####[facility] LABORATORYCLIA [id number] [address] [place] Platelets (Bld) [#/Vol] 253 10*3/uL Normal 150-400 [facility] Comment on above: Order Comment: Speci men Type: BLOOD SPECIMENOrdering Facility: [facility] Address: [address] [place] [address] Performed By: #### 5 7021-8 ####[facility] LABORATORYCLIA [id number] [place] [address] [place] RBC (Bld) [#/Vol] 4.44 10*6/uL Normal 3.90-5.20 [facility] Comment on above: Order Comment: Speci men Type: BLOOD SPECIMENOrdering Facility: [facility] Address: [address] [place] [address] Performed By: #### 5 7021-8 ####[facility] LABORATORYCLIA [id number] [address] STATES OF [facility] WBC (Bld) [#/Vol] 9.10 10*3/uL Normal 3.70-11.00 [facility] Comment on above: Order Comment: Speci men Type: BLOOD SPECIMENOrdering Facility: [facility] Address: [address] [place] [address] Performed By: #### 5 7021-8 ####[facility] LABORATORYCLIA [id number] [address] [place] CONSULT PROGon 10-06-2022 CONSULT PROG Normal [facility] Comprehensive metabolic 2000 panelon 10-06-2022 Albumin [Mass/Vol] 3.6 g/dL Low 3.9-4.9 [facility] Comment on above: Order Comment: Speci men Type: BLOOD SPECIMENOrdering Facility: [facility] Address: [address] [place] [address] Performed By: #### 2 4323-8 ####[facility] LABORATORYCLIA [id number] [address] OF [facility] ALP [Catalytic activity/Vol] 94 U/L Normal 34-123 [facility] Comment on above: Order Comment: Speci men Type: BLOOD SPECIMENOrdering Facility: [facility] Address: [address] [address] Performed By: #### 2 4323-8 ####[facility]ORATORYCLIA [id number] [address] [place] ALT With P-5'-P [Catalytic activity/Vol] 27 U/L Normal 7-38 [facility] Comment on above: Order Comment: Speci men Type: BLOOD SPECIMENOrdering Facility: [facility] Address: [address] [address] Performed By: #### 2 4323-8 ####[facility] LABORATORYCLIA [id number] [address] Anion gap [Moles/Vol] 7 mmol/L Low 9-18 [facility] Comment on above: Order Comment: Speci men Type: BLOOD SPECIMENOrdering Facility: [facility] Address: [address] [place] [address] Performed By: #### 2 4323-8 ####[facility] LABORATORYCLIA [id number] [address] [place] [facility] AST With P-5'-P [Catalytic activity/Vol] 26 U/L Normal 13-35 [facility] Comment on above: Order Comment: Speci men Type: BLOOD SPECIMENOrdering Facility: [facility] Address: [address] [place] [address] Performed By: #### 2 4323-8 ####[facility]ATORYCLIA [id number] [address] [place] Bilirubin [Mass/Vol] 0.3 mg/dL Normal 0.2-1.3 [facility] Comment on above: Order Comment: Speci men Type: BLOOD SPECIMENOrdering Facility: [facility] Address: [address] [place] [address] Performed By: #### 2 4323-8 ####[facility]ORATORYCLIA [id number] [address] [place] Calcium [Mass/Vol] 8.6 mg/dL Normal 8.5-10.2 [facility] Comment on above: Order Comment: Speci men Type: BLOOD SPECIMENOrdering Facility: [facility] Address: [address] [place] [address] Performed By: #### 2 4323-8 ####[facility] LABORATORYCLIA [id number] [address] [place] Chloride [Moles/Vol] 107 mmol/L High 97-105 [facility] Comment on above: Order Comment: Speci men Type: BLOOD SPECIMENOrdering Facility: [facility] Address: [address] [place] [address] Performed By: #### 2 4323-8 ####[facility] LABORATORYCLIA [id number] [place] [address] [place] CO2 [Moles/Vol] 28 mmol/L Normal 22-30 [facility] Comment on above: Order Comment: Speci men Type: BLOOD SPECIMENOrdering Facility: [facility] Address: [address] [place] [address] Performed By: #### 2 4323-8 ####[facility]ORATORYCLIA [id number] [address] [place] Creatinine [Mass/Vol] 0.70 mg/dL Normal 0.58-0.96 [facility] Comment on above: Order Comment: Speci men Type: BLOOD SPECIMENOrdering Facility: [facility] Address: [address] [place] [address] Performed By: #### 2 4323-8 ####[facility]ORATORYCLIA [id number] [address] ESTIMATED GLOMERULAR FILTRATION RATE 100 mL/min/1.73m??? Normal >=60 [facility] Comment on above: Order Comment: Speci men Type: BLOOD SPECIMENOrdering Facility: [facility] Address: [address] [place] [address] Result Comment: Manasa mated Glomerular Filtration Rate [...] actual GFR. Performed By: #### 2 4323-8 ####[facility]ORATORYCLIA [id number] [place] [address] [place] Glucose [Mass/Vol] 157 mg/dL High 74-99 [facility] Comment on above: Order Comment: Tawanda men Type: BLOOD SPECIMENOrdering Facility: [facility] Address: [address] [place] [address] Result Comment: The [place] [employer] (ADA) provides guidance for cutoff [...] Standards of Medical Care in Diabetes 2016, [place] [employer]. Diabetes Care. 2016.39(Suppl 1). Performed By: #### 2 4323-8 ####[facility]ORATORYCLIA [id number] [place] [address] [place] Potassium [Moles/Vol] 4.2 mmol/L Normal 3.7-5.1 [facility] Comment on above: Order Comment: Tawanda mosley Type: BLOOD SPECIMENOrdering Facility: [facility] Address: [address] [place], [place] [address] Performed By: #### 2 4323-8 ####[facility]ORATORYCLIA [id number] [place] [address] [place] Protein [Mass/Vol] 6.5 g/dL Normal 6.3-8.0 [facility] Comment on above: Order Comment: Tawanda men Type: BLOOD SPECIMENOrdering Facility: [facility] Address: [address] [address] Performed By: #### 2 4323-8 ####[facility]ORATORYCLIA [id number] [address] [place] Sodium [Moles/Vol] 142 mmol/L Normal 136-144 [facility] Comment on above: Order Comment: Speci men Type: BLOOD SPECIMENOrdering Facility: [facility] Address: [address] [place] [address] Performed By: #### 2 4323-8 ####[facility]ORATORYCLIA [id number] [place] [address] [place] Urea nitrogen [Mass/Vol] 9 mg/dL Normal 7-21 [facility] Comment on above: Order Comment: Speci men Type: BLOOD SPECIMENOrdering Facility: [facility] Address: [address] [place] [address] Performed By: #### 2 4323-8 ####[facility]ORATORYCLIA [id number] [place] [address] [place] ALLIED HEALTHon 10-05-2022 ALLIED HEALTH Normal [facility] Basic metabolic 2000 panelon 10-05-2022 Anion gap [Moles/Vol] 10 mmol/L Normal 9-18 [facility] Comment on above: Order Comment: Speci men Type: BLOOD SPECIMENOrdering Facility: [facility] Address: [address] [place] [address] Performed By: #### 1 9123-9, 27875-2 ####[facility]ORATORYCLIA [id number] [place] [address] [place] Calcium [Mass/Vol] 8.6 mg/dL Normal 8.5-10.2 [facility] Comment on above: Order Comment: Speci men Type: BLOOD SPECIMENOrdering Facility: [facility] Address: [address] [place] [address] Performed By: #### 1 9123-9, 80982-3 ####[facility] LABORATORYCLIA [id number] [facility] [address] Chloride [Moles/Vol] 104 mmol/L Normal 97-105 [facility] Comment on above: Order Comment: Speci men Type: BLOOD SPECIMENOrdering Facility: [facility] Address: [address] [place] [address] Performed By: #### 1 9123-9, ####[facility]ORATORYCLIA [id number] [address] OF [facility] CO2 [Moles/Vol] 26 mmol/L Normal 22-30 [facility] Comment on above: Order Comment: Speci men Type: BLOOD SPECIMENOrdering Facility: [facility] Address: [address] [place] [address] Performed By: #### 1 91239, ####[facility]PITALCLIA [id number] [address] Creatinine [Mass/Vol] 0.63 mg/dL Normal 0.58-0.96 [facility] Comment on above: Order Comment: Speci men Type: BLOOD SPECIMENOrdering Facility: [facility] Address: [address] [place] [address] Performed By: #### 1 91239, ####[facility]ORATORYCLIA [id number] [address] ESTIMATED GLOMERULAR FILTRATION RATE 103 mL/min/1.73m??? Normal >=60 [facility] Comment on above: Order Comment: Speci men Type: BLOOD SPECIMENOrdering Facility: [facility] Address: [address] [place] [address] Result Comment: Manasa mated Glomerular Filtration Rate [...] actual GFR. Performed By: #### 1 9123-9, 69871-6 ####[facility]ORATORYCLIA [id number] [place] [address] [place] Glucose [Mass/Vol] 134 mg/dL High 74-99 [facility] Comment on above: Order Comment: Leobardoi men Type: BLOOD SPECIMENOrdering Facility: [facility] Address: [address] [place] [address] Result Comment: The [place] [employer] (ADA) provides guidance for cutoff [...] Standards of Medical Care in Diabetes 2016, [place] [employer]. Diabetes Care. 2016.39(Suppl 1). Performed By: #### 1 9123-9, 52986-0 ####[facility]ORATORYCLIA [id number] [place] [address] [place] Potassium [Moles/Vol] 3.8 mmol/L Normal 3.7-5.1 [facility] Comment on above: Order Comment: Tawanda mosley Type: BLOOD SPECIMENOrdering Facility: [facility] Address: [address] [place] [address] Performed By: #### 1 9123-9, 20810-3 ####[facility]ORATORYCLIA [id number] [place] [address] [place] Sodium [Moles/Vol] 140 mmol/L Normal 136-144 [facility] Comment on above: Order Comment: Speci men Type: BLOOD SPECIMENOrdering Facility: [facility] Address: [address] [place] [address] Performed By: #### 1 9123-9, 41327-6 ####[facility]ORATORYCLIA [id number] [place] [address] [place] Urea nitrogen [Mass/Vol] 7 mg/dL Normal 7-21 [facility] Comment on above: Order Comment: Speci men Type: BLOOD SPECIMENOrdering Facility: [facility] Address: [address] [place] [address] Performed By: #### 1 9123-9, 75130-6 ####[facility]ORATORYCLIA [id number] [place] [address] [place] CBC W Auto Differential pane l (Bld)on 10-05-2022 Basophils (Bld) [#/Vol] 0.11 10*3/uL High <0.11 [facility] Comment on above: Order Comment: Speci men Type: BLOOD SPECIMENOrdering Facility: [facility] Address: [address] [place] [address] Performed By: #### 5 7021-8 ####[facility]ORATORYCLIA [id number] [place] [address] [place] Basophils/100 WBC (Bld) 1.1 % Normal [facility] Comment on above: Order Comment: Speci men Type: BLOOD SPECIMENOrdering Facility: [facility] Address: [address] [place] [address] Performed By: #### 5 7021-8 ####[facility]ORATORYCLIA [id number] [address] [place] Differential cell count method Nom (Bld) Auto Normal [facility] Comment on above: Order Comment: Speci men Type: BLOOD SPECIMENOrdering Facility: [facility] Address: [address] [place] [address] Performed By: #### 5 7021-8 ####[facility]ORATORYCLIA [id number] [place] [address] [place] Eosinophils (Bld) [#/Vol] 0.30 10*3/uL Normal <0.46 [facility] Comment on above: Order Comment: Speci men Type: BLOOD SPECIMENOrdering Facility: [facility] Address: [address] [place] [address] Performed By: #### 5 7021-8 ####[facility]ORATORYCLIA [id number] [address] STATES [facility] Eosinophils/100 WBC (Bld) 2.9 % Normal [facility] Comment on above: Order Comment: Speci men Type: BLOOD SPECIMENOrdering Facility: [facility] Address: [address] [place] [address] Performed By: #### 5 7021-8 ####[facility]ORATORYCLIA [id number] [address] OF [facility] Erythrocyte distribution width (RBC) [Ratio] 13.2 % Normal 11.5-15.0 [facility] Comment on above: Order Comment: Speci men Type: BLOOD SPECIMENOrdering Facility: [facility] Address: [address] [place] [address] Performed By: #### 5 7021-8 ####[facility]ORATORYCLIA [id number] [address] Hematocrit (Bld) [Volume fraction] 39.2 % Normal 36.0-46.0 [facility] Comment on above: Order Comment: Speci men Type: BLOOD SPECIMENOrdering Facility: [facility] Address: [address] [place] [address] Performed By: #### 5 7021-8 ####[facility]ORATORYCLIA [id number] [address] [place] Hemoglobin (Bld) [Mass/Vol] 12.7 g/dL Normal 11.5-15.5 [facility] Comment on above: Order Comment: Speci men Type: BLOOD SPECIMENOrdering Facility: [facility] Address: [address] [place] [address] Performed By: #### 5 7021-8 ####[facility]ORATORYCLIA [id number] [address] Immature granulocytes (Bld) [#/Vol] 0.05 10*3/uL Normal <0.10 [facility] Comment on above: Order Comment: Speci men Type: BLOOD SPECIMENOrdering Facility: [facility] Address: [address] [place] [address] Performed By: #### 5 7021-8 ####[facility] LABORATORYCLIA [id number] [address] Immature granulocytes/100 WBC (Bld) 0.5 % Normal [facility] Comment on above: Order Comment: Speci men Type: BLOOD SPECIMENOrdering Facility: [facility] Address: [address] [place] [address] Performed By: #### 5 7021-8 ####[facility]ORATORYCLIA [id number] [address] Lymphocytes (Bld) [#/Vol] 3.30 10*3/uL Normal 1.00-4.00 [facility] Comment on above: Order Comment: Speci men Type: BLOOD SPECIMENOrdering Facility: [facility] Address: [address] [place] [address] Performed By: #### 5 7021-8 ####[facility]ORATORYCLIA [id number] [address] Lymphocytes/100 WBC (Bld) 31.6 % Normal [facility] Comment on above: Order Comment: Speci men Type: BLOOD SPECIMENOrdering Facility: [facility] Address: [address] [place] [address] Performed By: #### 5 7021-8 ####[facility]ORATORYCLIA [id number] [address] MCH (RBC) [Entitic mass] 27.9 pg Normal 26.0-34.0 [facility] Comment on above: Order Comment: Speci men Type: BLOOD SPECIMENOrdering Facility: [facility] Address: [address] [place] [address] Performed By: #### 5 7021-8 ####[facility]ATORYCLIA [id number] [address] MCHC (RBC) [Mass/Vol] 32.4 g/dL Normal 30.5-36.0 [facility] Comment on above: Order Comment: Speci men Type: BLOOD SPECIMENOrdering Facility: [facility] Address: [address] [place] [address] Performed By: #### 5 7021-8 ####[facility] LABORATORYCLIA [id number] [address] STATES OF [facility] MCV (RBC) [Entitic vol] 86.0 fL Normal 80.0-100.0 [facility] Comment on above: Order Comment: Speci men Type: BLOOD SPECIMENOrdering Facility: [facility] Address: [address] [place] [address] Performed By: #### 5 7021-8 ####[facility]ORATORYCLIA [id number] [address] [place] Monocytes (Bld) [#/Vol] 0.97 10*3/uL High <0.87 [facility] Comment on above: Order Comment: Speci men Type: BLOOD SPECIMENOrdering Facility: [facility] Address: [address] [place] [address] Performed By: #### 5 7021-8 ####[facility]ORATORYCLIA [id number] [address] Monocytes/100 WBC (Bld) 9.3 % Normal [facility] Comment on above: Order Comment: Speci men Type: BLOOD SPECIMENOrdering Facility: [facility] Address: [address] [place] [address] Performed By: #### 5 7021-8 ####[facility]ORATORYCLIA [id number] [address] [place] Neutrophils (Bld) [#/Vol] 5.71 10*3/uL Normal 1.45-7.50 [facility] Comment on above: Order Comment: Speci men Type: BLOOD SPECIMENOrdering Facility: [facility] Address: [address] [place] [address] Performed By: #### 5 7021-8 ####[facility]ATORYCLIA [id number] [address] Neutrophils/100 WBC (Bld) 54.6 % Normal [facility] Comment on above: Order Comment: Speci men Type: BLOOD SPECIMENOrdering Facility: [facility] Address: [address] [place] [address] Performed By: #### 5 7021-8 ####[facility]ATORYCLIA [id number] [address] [place] Nucleated RBC (Bld) [#/Vol] 10*3/uL Normal <0.01 [facility] Comment on above: Order Comment: Speci men Type: BLOOD SPECIMENOrdering Facility: [facility] Address: [address] [place] [address] Performed By: #### 5 7021-8 ####[facility]ORATORYCLIA [id number] [address] Nucleated RBC/100 WBC (Bld) [Ratio] 0.0 /100 WBC Normal [facility] Comment on above: Order Comment: Speci men Type: BLOOD SPECIMENOrdering Facility: [facility] Address: [address] [place] [address] Performed By: #### 5 7021-8 ####[facility]ORATORYCLIA [id number] [address] [place] Platelet mean volume (Bld) [Entitic vol] 10.3 fL Normal 9.0-12.7 [facility] Comment on above: Order Comment: Speci men Type: BLOOD SPECIMENOrdering Facility: [facility] Address: [address] [place] [address] Performed By: #### 5 7021-8 ####[facility]ORATORYCLIA [id number] [address] [place] Platelets (Bld) [#/Vol] 221 10*3/uL Normal 150-400 [facility] Comment on above: Order Comment: Speci men Type: BLOOD SPECIMENOrdering Facility: [facility] Address: [address] [place] [address] Performed By: #### 5 7021-8 ####[facility] LABORATORYCLIA [id number] [place] [address] [place] RBC (Bld) [#/Vol] 4.56 10*6/uL Normal 3.90-5.20 [facility] Comment on above: Order Comment: Speci men Type: BLOOD SPECIMENOrdering Facility: [facility] Address: [address] [address] Performed By: #### 5 7021-8 ####[facility]ORATORYCLIA [id number] [place] [address] [place] WBC (Bld) [#/Vol] 10.44 10*3/uL Normal 3.70-11.00 [facility] Comment on above: Order Comment: Speci men Type: BLOOD SPECIMENOrdering Facility: [facility] Address: [address] [place] [address] Performed By: #### 5 7021-8 ####[facility] LABORATORYCLIA [id number] [address] [place] Basophils (Bld) [#/Vol] 0.11 10*3/uL High <0.11 [facility] Comment on above: Order Comment: Speci men Type: BLOOD SPECIMENOrdering Facility: [facility] Address: [address] [place] [address] Performed By: #### 5 7021-8 ####[facility]ORATORYCLIA [id number] [address] [place] Basophils/100 WBC (Bld) 0.8 % Normal [facility] Comment on above: Order Comment: Speci men Type: BLOOD SPECIMENOrdering Facility: [facility] Address: [address] [place] [address] Performed By: #### 5 7021-8 ####[facility] LABORATORYCLIA [id number] [place] [address] [place] Differential cell count method Nom (Bld) Auto Normal [facility] Comment on above: Order Comment: Speci men Type: BLOOD SPECIMENOrdering Facility: [facility] Address: [address] [address] Performed By: #### 5 7021-8 ####[facility] LABORATORYCLIA [id number] [address] OF [facility] Eosinophils (Bld) [#/Vol] 0.29 10*3/uL Normal <0.46 [facility] Comment on above: Order Comment: Speci men Type: BLOOD SPECIMENOrdering Facility: [facility] Address: [address] [address] Performed By: #### 5 7021-8 ####[facility] LABORATORYCLIA [id number] [address] Eosinophils/100 WBC (Bld) 2.0 % Normal [facility] Comment on above: Order Comment: Speci men Type: BLOOD SPECIMENOrdering Facility: [facility] Address: [address] [place] [address] Performed By: #### 5 7021-8 ####[facility] LABORATORYCLIA [id number] [address] Erythrocyte distribution width (RBC) [Ratio] 13.2 % Normal 11.5-15.0 [facility] Comment on above: Order Comment: Speci men Type: BLOOD SPECIMENOrdering Facility: [facility] Address: [address] [place] [address] Performed By: #### 5 7021-8 ####[facility] LABORATORYCLIA [id number] [address] Hematocrit (Bld) [Volume fraction] 41.2 % Normal 36.0-46.0 [facility] Comment on above: Order Comment: Speci men Type: BLOOD SPECIMENOrdering Facility: [facility] Address: [address] [place] [address] Performed By: #### 5 7021-8 ####[facility] LABORATORYCLIA [id number] [place] [address] [place] Hemoglobin (Bld) [Mass/Vol] 13.1 g/dL Normal 11.5-15.5 [facility] Comment on above: Order Comment: Speci men Type: BLOOD SPECIMENOrdering Facility: [facility] Address: [address] [place] [address] Performed By: #### 5 7021-8 ####[facility] LABORATORYCLIA [id number] [place] [address] [place] Immature granulocytes (Bld) [#/Vol] 0.08 10*3/uL Normal <0.10 [facility] Comment on above: Order Comment: Speci men Type: BLOOD SPECIMENOrdering Facility: [facility] Address: [address] [place] [address] Performed By: #### 5 7021-8 ####[facility] LABORATORYCLIA [id number] [address] [place] Immature granulocytes/100 WBC (Bld) 0.5 % Normal [facility] Comment on above: Order Comment: Speci men Type: BLOOD SPECIMENOrdering Facility: [facility] Address: [address] [place] [address] Performed By: #### 5 7021-8 ####[facility] LABORATORYCLIA [id number] [address] [place] Lymphocytes (Bld) [#/Vol] 4.88 10*3/uL High 1.00-4.00 [facility] Comment on above: Order Comment: Speci men Type: BLOOD SPECIMENOrdering Facility: [facility] Address: [address] [place] [address] Performed By: #### 5 7021-8 ####[facility] LABORATORYCLIA [id number] [address] [place] Lymphocytes/100 WBC (Bld) 33.5 % Normal [facility] Comment on above: Order Comment: Speci men Type: BLOOD SPECIMENOrdering Facility: [facility] Address: [address] [place] [address] Performed By: #### 5 7021-8 ####[facility] LABORATORYCLIA [id number] [address] [place] [facility] MCH (RBC) [Entitic mass] 27.3 pg Normal 26.0-34.0 [facility] Comment on above: Order Comment: Speci men Type: BLOOD SPECIMENOrdering Facility: [facility] Address: [address] [place] [address] Performed By: #### 5 7021-8 ####[facility] LABORATORYCLIA [id number] [address] STATES OF [facility] MCHC (RBC) [Mass/Vol] 31.8 g/dL Normal 30.5-36.0 [facility] Comment on above: Order Comment: Speci men Type: BLOOD SPECIMENOrdering Facility: [facility] Address: [address] [place] [address] Performed By: #### 5 7021-8 ####[facility] LABORATORYCLIA [id number] [address] MCV (RBC) [Entitic vol] 85.8 fL Normal 80.0-100.0 [facility] Comment on above: Order Comment: Speci men Type: BLOOD SPECIMENOrdering Facility: [facility] Address: [address] [place] [address] Performed By: #### 5 7021-8 ####[facility] LABORATORYCLIA [id number] [address] OF [place] Monocytes (Bld) [#/Vol] 1.04 10*3/uL High <0.87 [facility] Comment on above: Order Comment: Speci men Type: BLOOD SPECIMENOrdering Facility: [facility] Address: [address] [place] [address] Performed By: #### 5 7021-8 ####[facility]ORATORYCLIA [id number] [address] Monocytes/100 WBC (Bld) 7.1 % Normal [facility] Comment on above: Order Comment: Speci men Type: BLOOD SPECIMENOrdering Facility: [facility] Address: [address] [address] Performed By: #### 5 7021-8 ####[facility]ATORYCLIA [id number] [address] [place] Neutrophils (Bld) [#/Vol] 8.17 10*3/uL High 1.45-7.50 [facility] Comment on above: Order Comment: Speci men Type: BLOOD SPECIMENOrdering Facility: [facility] Address: [address] [place] [address] Performed By: #### 5 7021-8 ####[facility]ORATORYCLIA [id number] [address] Neutrophils/100 WBC (Bld) 56.1 % Normal [facility] Comment on above: Order Comment: Speci men Type: BLOOD SPECIMENOrdering Facility: [facility] Address: [address] [place] [address] Performed By: #### 5 7021-8 ####[facility]ORATORYCLIA [id number] [address] [place] Nucleated RBC (Bld) [#/Vol] 10*3/uL Normal <0.01 [facility] Comment on above: Order Comment: Speci men Type: BLOOD SPECIMENOrdering Facility: [facility] Address: [address] [place] [address] Performed By: #### 5 7021-8 ####[facility]ATORYCLIA [id number] [address] OF [facility] Nucleated RBC/100 WBC (Bld) [Ratio] 0.0 /100 WBC Normal [facility] Comment on above: Order Comment: Speci men Type: BLOOD SPECIMENOrdering Facility: [facility] Address: [address] [place] [address] Performed By: #### 5 7021-8 ####[facility]ATORYCLIA [id number] [address] [place] Platelet mean volume (Bld) [Entitic vol] 10.6 fL Normal 9.0-12.7 [facility] Comment on above: Order Comment: Speci men Type: BLOOD SPECIMENOrdering Facility: [facility] Address: [address] [place] [address] Performed By: #### 5 7021-8 ####[facility]ORATORYCLIA [id number] [address] [place] Platelets (Bld) [#/Vol] 294 10*3/uL Normal 150-400 [facility] Comment on above: Order Comment: Speci men Type: BLOOD SPECIMENOrdering Facility: [facility] Address: [address] [place] [address] Performed By: #### 5 7021-8 ####[facility]ORATORYCLIA [id number] [place] [address] [place] RBC (Bld) [#/Vol] 4.80 10*6/uL Normal 3.90-5.20 [facility] Comment on above: Order Comment: Speci men Type: BLOOD SPECIMENOrdering Facility: [facility] Address: [address] [place] [address] Performed By: #### 5 7021-8 ####[facility]ORATORYCLIA [id number] [address] [place] WBC (Bld) [#/Vol] 14.57 10*3/uL High 3.70-11.00 [facility] Comment on above: Order Comment: Speci men Type: BLOOD SPECIMENOrdering Facility: [facility] Address: [address] [place] [address] Performed By: #### 5 7021-8 ####[facility]ORATORYCLIA [id number] [address] [place] CONSULTon 10-05-2022 CONSULT Normal [facility] CRP SerPl-mCncon 10-05-2022 CRP [Mass/Vol] 1.1 mg/dL High <0.9 [facility] Comment on above: Order Comment: Speci men Type: BLOOD SPECIMENOrdering Facility: [facility] Address: [address] [address] Performed By: #### 2 4323-02, 1987-11 ####[facility]ORATORYCLIA [id number] [address] OF [facility] Comprehensive metabolic 2000 panelon 10-05-2022 Albumin [Mass/Vol] 4.1 g/dL Normal 3.9-4.9 [facility] Comment on above: Order Comment: Speci men Type: BLOOD SPECIMENOrdering Facility: [facility] Address: [address] [address] Performed By: #### 2 4323-02, 1987-11 ####[facility]ORATORYCLIA [id number] [place] [address] [place] ALP [Catalytic activity/Vol] 105 U/L Normal 34-123 [facility] Comment on above: Order Comment: Speci men Type: BLOOD SPECIMENOrdering Facility: [facility] Address: [address] [address] Performed By: #### 2 4323-02, 1987-11 ####[facility]ORATORYCLIA [id number] [address] [place] ALT With P-5'-P [Catalytic activity/Vol] 31 U/L Normal 7-38 [facility] Comment on above: Order Comment: Speci men Type: BLOOD SPECIMENOrdering Facility: [facility] Address: [address] [address] Performed By: #### 2 4323-02, 1987-11 ####[facility]ORATORYCLIA [id number] [address] [place] Anion gap [Moles/Vol] 10 mmol/L Normal 9-18 [facility] Comment on above: Order Comment: Speci men Type: BLOOD SPECIMENOrdering Facility: [facility] Address: [address] [address] Performed By: #### 2 4323-02, 1987-11 ####[facility]ATORYCLIA [id number] [place] [address] [place] AST With P-5'-P [Catalytic activity/Vol] 35 U/L Normal 13-35 [facility] Comment on above: Order Comment: Speci men Type: BLOOD SPECIMENOrdering Facility: [facility] Address: [address] [place] [address] Performed By: #### 2 4323-02, 1987-11 ####[facility] LABORATORYCLIA [id number] [place] [address] [place] Bilirubin [Mass/Vol] 0.4 mg/dL Normal 0.2-1.3 [facility] Comment on above: Order Comment: Speci men Type: BLOOD SPECIMENOrdering Facility: [facility] Address: [address] [place] [address] Performed By: #### 2 4323-02, 1987-11 ####[facility]ORATORYCLIA [id number] [place] [address] [place] Calcium [Mass/Vol] 9.1 mg/dL Normal 8.5-10.2 [facility] Comment on above: Order Comment: Speci men Type: BLOOD SPECIMENOrdering Facility: [facility] Address: [address] [place] [address] Performed By: #### 2 4323-02, 1987-11 ####[facility]ATORYCLIA [id number] [place] [address] [place] Chloride [Moles/Vol] 103 mmol/L Normal 97-105 [facility] Comment on above: Order Comment: Speci men Type: BLOOD SPECIMENOrdering Facility: [facility] Address: [address] [place] [address] Performed By: #### 2 4323-02, 1987-11 ####[facility]ATORYCLIA [id number] [place] [address] [place] CO2 [Moles/Vol] 26 mmol/L Normal 22-30 [facility] Comment on above: Order Comment: Speci men Type: BLOOD SPECIMENOrdering Facility: [facility] Address: [address] [place] [address] [place] [address] Performed By: #### 2 4323, 1987-11 ####[facility]ORATORYCLIA [id number] [place] [address] [place] STATES OF [facility] Creatinine [Mass/Vol] 0.69 mg/dL Normal 0.58-0.96 [facility] Comment on above: Order Comment: Speci men Type: BLOOD SPECIMENOrdering Facility: [facility] Address: [address] Performed By: #### 2 43209-18, 1987-11 ####[facility] LABORATORYCLIA [id number] [address] [id number] [facility] ESTIMATED GLOMERULAR FILTRATION RATE 101 mL/min/1.73m??? Normal >=60 [facility] Comment on above: Order Comment: Speci men Type: BLOOD SPECIMENOrdering Facility: [facility] Address: [address] [address] Result Comment: Manasa mated Glomerular Filtration Rate [...] reflect actual GFR. Performed By: #### 2 43209-18, 1987-11 ####[facility] LABORATORYCLIA [id number] [address] [place] [id number] [place] Glucose [Mass/Vol] 117 mg/dL High 74-99 [facility] Comment on above: Order Comment: Speci men Type: BLOOD SPECIMENOrdering Facility: [facility] Address: [address] [address] Result Comment: The [place] [employer] Association (ADA) provides guidance for cutoff [...] Standards of Medical Care in Diabetes 2016, [place] [employer]. Diabetes Care. 2016.39(Suppl 1). Performed By: #### 2 4323-02, 1987-11 ####[facility] LABORATORYCLIA [id number] [place] [address] [place] Potassium [Moles/Vol] 3.8 mmol/L Normal 3.7-5.1 [facility] Comment on above: Order Comment: Speci men Type: BLOOD SPECIMENOrdering Facility: [facility] Address: [address] [place] [address] Performed By: #### 2 4323-02, 1987-11 ####[facility] LABORATORYCLIA [id number] [place] [address] [place] Protein [Mass/Vol] 7.3 g/dL Normal 6.3-8.0 [facility] Comment on above: Order Comment: Speci men Type: BLOOD SPECIMENOrdering Facility: [facility] Address: [address] [place] [address] Performed By: #### 2 4323-02, 1987-11 ####[facility] LABORATORYCLIA [id number] [address] [place] Sodium [Moles/Vol] 139 mmol/L Normal 136-144 [facility] Comment on above: Order Comment: Speci men Type: BLOOD SPECIMENOrdering Facility: [facility] Address: [address] [address] Performed By: #### 2 4323-02, 1987-11 ####[facility] LABORATORYCLIA [id number] [place] [address] [place] Urea nitrogen [Mass/Vol] 7 mg/dL Normal 7-21 [facility] Comment on above: Order Comment: Speci men Type: BLOOD SPECIMENOrdering Facility: [facility] Address: [address] [address] Performed By: #### 2 4323-8, 1987-11 ####[facility]ORATORYCLIA [id number] [place] [address] [place] ECG COMPLETEon 10-05-2022 ECG COMPLETE Normal [facility] ED NOTEon 10-05-2022 ED NOTE HNO ID: [id number] Author: Darinel Fitzgerald RN Service: Emergency Medicine Author Type: Registered Nurse Type: ED Notes Filed: 10/05/2022 6:21 PM Note Text: No answer for report on ready bed x2 Normal [facility] ED NOTE HNO ID: [id number] Author: Darinel Fitzgerald RN Service: Emergency Medicine Author Type: Registered Nurse Type: ED Notes Filed: 10/05/2022 6:03 PM Note Text: Given a meal tray at this time Normal [facility] ED NOTE HNO ID: [id number] Author: Clotilde Worley RN Service: Emergency Medicine Author Type: Registered Nurse Type: ED Notes Filed: 10/05/2022 1:08 PM Note Text: Pt given lunch tray and maureen crackers. Normal [facility] ED NOTE Normal [facility] ED NOTE HNO ID: [id number] Author: Solo Zuniga RN Service: Emergency Medicine Author Type: Registered Nurse Type: ED Notes Filed: 10/05/2022 1:54 AM Note Text: Pt given Ice packs to help with R arm discomfort Normal [facility] ED NOTE HNO ID: [id number] Author: Lela Kirby RN Service: ? Author Type: Registered Nurse Type: ED Notes Filed: 10/05/2022 12:12 AM Note Text: Bed: 35-ED Expected date: Expected time: Means of arrival: Comments: SQUAD Normal [facility] ED PROV NOTEon 10-05-2022 ED PROV NOTE Normal [facility] ED Triage Noteon 10-05-2022 ED Triage Note Normal [facility] HISTORY PHYSICALon HISTORY PHYSICAL Normal [facility] Magnesium SerPl-mCncon 10-05 Magnesium [Mass/Vol] 2.0 mg/dL Normal 1.7-2.3 [facility] Comment on above: Order Comment: Speci men Type: BLOOD SPECIMENOrdering Facility: [facility] Address: [facility] [address] [place] [address] Performed By: #### 1 9123-9, 06892-4 ####[facility] LABORATORYCLIA [id number] [place] [address] [place] XR FOREARM 2V AP/LAT RTon XR FOREARM 2V AP/LAT RT Normal [facility] XR WRIST 4V PA/LAT/OBL/SCAPH RTon 10-05-2022 XR WRIST 4V PA/LAT/OBL/SCAPH RT Normal [facility] CNOVon 10-04-2022 CNOV Normal [facility] CNPNon 08-24-2022 CNPN Telephone (PODCCP) -------- PARDEEP MARK ([id number]) 1965 F Date Time Provider Department 08/24/22 TAMMY KARIMI PODCCP During your visit today, we recorded the following information about you: Brandon Acevedo 08/24/2022 9:59 AM Signed PATIENT INFORMATION Record ID: [id number] Patient Name: Pardeep Mark Hospital: [facility] [place]: [facility] Attending: Yola Boyd Center: Hospital Medicine INSTRUCTIONS All Clear SN to remind patient of next upcoming appointment date, time, location All Clear All Clear All Clear SURVEY INFORMATION Medical/Nurse [place]: Brandon Mas 1. Your discharge instructions are [...] Reason for Visit: Follow Up Phone Call [1382] Cmt: All Clear Prescriptions as of 08/24/2022 [...] Status:Closed by BRANDON GARLAND on 08/24/22 [facility] -------- PARDEEP MARK ([id number]) 1965 F Date Time Provider Department 08/21/22 YOLA LEGGETT [facility] During your visit today, we recorded the [...] is being seen [facility] [place] and they are prescribing her Keppra. Pt [...] she is open to a referral. Pardeep [phone] Johnson Zhu Alona Amanuel 08/22/2022 2:50 PM [...] previous messages below and advise. Thank you Johnsno Zhu MD 08/26/2022 8:06 PM Signed She's been seeing Yola Boyd, who is an internal medicine provider at [facility]. I would recommend she seek a new psychiatrist at [facility]. [place] 45 [place] from [place], as opposed to over 1 [place]. Phone number is [phone]. 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 Murrieta, I am not in a position to take on more outpatients. Bogdan. Alona Vital 08/27/2022 10:28 AM Signed I called pt and informed her of dr's message. Pt voiced understanding. Pt said you were one of her favorite dr's. Pt will reach out [facility] [place]. Kya Vital, [facility] Allergies As of Date: 08/21/2022 Noted [...] stroke [ (more content not included)... Normal [facility] CASE MANAGEMon 08-17-2022 CASE MANAGEM Normal [facility] CNDSon 08-17-2022 CNDS Normal [facility] NURSING PROGon 08-17-2022 NURSING PROG Normal [facility] CASE MANAGEMon 08-16-2022 CASE MANAGEM Normal [facility] CONSULT PROGon 08-16-2022 CONSULT PROG Normal [facility] CONSULT PROG [facility] ECG COMPLETEon 08-16-2022 ECG COMPLETE Normal [facility] THERAPY NTon 08-16-2022 THERAPY NT Normal [facility] THERAPY NT Normal [facility] ALLIED HEALTHon 08-15-2022 ALLIED HEALTH Normal [facility] Basic metabolic 2000 panelon 08-15-2022 Anion gap [Moles/Vol] 10 mmol/L Normal 9-18 [facility] Comment on above: Order Comment: Speci men Type: BLOOD SPECIMENOrdering Facility: [facility] Address: [address] [place] [address] Performed By: #### 2 4321-2 ####[facility]ORATORYCLIA [id number] [address] [place] Calcium [Mass/Vol] 9.0 mg/dL Normal 8.5-10.2 [facility] Comment on above: Order Comment: Speci men Type: BLOOD SPECIMENOrdering Facility: [facility] Address: [address] [place] [address] Performed By: #### 2 4321-2 ####[facility]ORATORYCLIA [id number] [address] [place] Chloride [Moles/Vol] 104 mmol/L Normal 97-105 [facility] Comment on above: Order Comment: Speci men Type: BLOOD SPECIMENOrdering Facility: [facility] Address: [address] [place] [address] Performed By: #### 2 4321-2 ####[facility]ORATORYCLIA [id number] [place] [address] [place] CO2 [Moles/Vol] 26 mmol/L Normal 22-30 [facility] Comment on above: Order Comment: Speci men Type: BLOOD SPECIMENOrdering Facility: [facility] Address: [address] [place] [address] Performed By: #### 2 4321-2 ####[facility]ORATORYCLIA [id number] [address] [place] Creatinine [Mass/Vol] 0.77 mg/dL Normal 0.58-0.96 [facility] Comment on above: Order Comment: Speci men Type: BLOOD SPECIMENOrdering Facility: [facility] Address: [address] [place] [address] Performed By: #### 2 4321-2 ####[facility]ORATORYCLIA [id number] [address] ESTIMATED GLOMERULAR FILTRATION RATE 90 mL/min/1.73m??? Normal >=60 [facility] Comment on above: Order Comment: Tawanda mosley Type: BLOOD SPECIMENOrdering Facility: [facility] Address: [address] [place] [address] Result Comment: Manasa mated Glomerular Filtration Rate [...] actual GFR. Performed By: #### 2 4321-2 ####[facility]ORATORYCLIA [id number] [place] [address] [place] Glucose [Mass/Vol] 157 mg/dL High 74-99 [facility] Comment on above: Order Comment: Tawanda mosley Type: BLOOD SPECIMENOrdering Facility: [facility] Address: [address] [place] [address] Result Comment: The [place] Diabetes Association (ADA) provides guidance for cutoff [...] Standards of Medical Care in Diabetes 2016, [place] [employer]. Diabetes Care. 2016.39(Suppl 1). Performed By: #### 2 4321-2 ####[facility]ORATORYCLIA [id number] [place] [address] [place] Potassium [Moles/Vol] 3.4 mmol/L Low 3.7-5.1 [facility] Comment on above: Order Comment: Tawanda mosley Type: BLOOD SPECIMENOrdering Facility: [facility] Address: [address] [place] [address] Performed By: #### 2 4321-2 ####[facility]ORATORYCLIA [id number] [address] [place] [facility] Sodium [Moles/Vol] 140 mmol/L Normal 136-144 [facility] Comment on above: Order Comment: Speci men Type: BLOOD SPECIMENOrdering Facility: [facility] Address: [address] [place] [address] Performed By: #### 2 4321-2 ####[facility]ORATORYCLIA [id number] [address] [place] Urea nitrogen [Mass/Vol] 18 mg/dL Normal 7-21 [facility] Comment on above: Order Comment: Speci men Type: BLOOD SPECIMENOrdering Facility: [facility] Address: [address] [place] [address] Performed By: #### 2 4321-2 ####[facility] LABORATORYCLIA [id number] [address] OF [facility] CBC panel Auto (Bld)on 08-15 Erythrocyte distribution width (RBC) [Ratio] 13.1 % Normal 11.5-15.0 [facility] Comment on above: Order Comment: Speci men Type: BLOOD SPECIMENOrdering Facility: [facility] Address: [address] [place] [address] Performed By: #### 5 8410-2 ####[facility] LABORATORYCLIA [id number] [address] STATES OF [facility] Hematocrit (Bld) [Volume fraction] 38.1 % Normal 36.0-46.0 [facility] Comment on above: Order Comment: Speci men Type: BLOOD SPECIMENOrdering Facility: [facility] Address: [address] [place] [address] Performed By: #### 5 8410-2 ####[facility]ORATORYCLIA [id number] [address] [place] Hemoglobin (Bld) [Mass/Vol] 12.1 g/dL Normal 11.5-15.5 [facility] Comment on above: Order Comment: Speci men Type: BLOOD SPECIMENOrdering Facility: [facility] Address: [address] [address] Performed By: #### 5 8410-2 ####[facility] LABORATORYCLIA [id number] [address] MCH (RBC) [Entitic mass] 28.8 pg Normal 26.0-34.0 [facility] Comment on above: Order Comment: Speci men Type: BLOOD SPECIMENOrdering Facility: [facility] Address: [address] [address] Performed By: #### 5 8410-2 ####[facility] LABORATORYCLIA [id number] [address] MCHC (RBC) [Mass/Vol] 31.8 g/dL Normal 30.5-36.0 [facility] Comment on above: Order Comment: Speci men Type: BLOOD SPECIMENOrdering Facility: [facility] Address: [address] [address] Performed By: #### 5 8410-2 ####[facility] LABORATORYCLIA [id number] [address] MCV (RBC) [Entitic vol] 90.7 fL Normal 80.0-100.0 [facility] Comment on above: Order Comment: Speci men Type: BLOOD SPECIMENOrdering Facility: [facility] Address: [address] [address] Performed By: #### 5 8410-2 ####[facility] LABORATORYCLIA [id number] [address] Nucleated RBC (Bld) [#/Vol] 10*3/uL Normal <0.01 [facility] Comment on above: Order Comment: Speci men Type: BLOOD SPECIMENOrdering Facility: [facility] Address: [address] [place] [address] Performed By: #### 5 8410-2 ####[facility] LABORATORYCLIA [id number] [address] [place] Platelet mean volume (Bld) [Entitic vol] 10.2 fL Normal 9.0-12.7 [facility] Comment on above: Order Comment: Speci men Type: BLOOD SPECIMENOrdering Facility: [facility] Address: [address] [place] [address] Performed By: #### 5 8410-2 ####[facility] LABORATORYCLIA [id number] [place] [address] [place] Platelets (Bld) [#/Vol] 253 10*3/uL Normal 150-400 [facility] Comment on above: Order Comment: Speci men Type: BLOOD SPECIMENOrdering Facility: [facility] Address: [address] [place] [address] Performed By: #### 5 8410-2 ####[facility] LABORATORYCLIA [id number] [place] [address] [place] RBC (Bld) [#/Vol] 4.20 10*6/uL Normal 3.90-5.20 [facility] Comment on above: Order Comment: Speci men Type: BLOOD SPECIMENOrdering Facility: [facility] Address: [address] [place], [place] [address] Performed By: #### 5 8410-2 ####[facility] LABORATORYCLIA [id number] [place] [address] [place] WBC (Bld) [#/Vol] 9.62 10*3/uL Normal 3.70-11.00 [facility] Comment on above: Order Comment: Speci men Type: BLOOD SPECIMENOrdering Facility: [facility] Address: [address] [place] [address] Performed By: #### 5 8410-2 ####[facility] LABORATORYCLIA [id number] [address] [place] CONSULTon 08-15-2022 CONSULT Normal [facility] CONSULT PROGon 08-15-2022 CONSULT PROG Normal [facility] ECG COMPLETEon 08-15-2022 ECG COMPLETE Normal [facility] Basic metabolic 2000 panelon 08-14-2022 Anion gap [Moles/Vol] 11 mmol/L Normal 9-18 [facility] Comment on above: Order Comment: Speci men Type: BLOOD SPECIMENOrdering Facility: [facility] Address: [address] [address] Performed By: #### 2 4321-2 ####[facility]ORATORYCLIA [id number] [place] [address] [place] Calcium [Mass/Vol] 9.4 mg/dL Normal 8.5-10.2 [facility] Comment on above: Order Comment: Speci men Type: BLOOD SPECIMENOrdering Facility: [facility] Address: [address] [place] [address] Performed By: #### 2 4321-2 ####[facility]ORATORYCLIA [id number] [place] [address] [place] Chloride [Moles/Vol] 100 mmol/L Normal 97-105 [facility] Comment on above: Order Comment: Speci men Type: BLOOD SPECIMENOrdering Facility: [facility] Address: [address] [place] [address] Performed By: #### 2 4321-2 ####[facility]ORATORYCLIA [id number] [place] [address] [place] CO2 [Moles/Vol] 26 mmol/L Normal 22-30 [facility] Comment on above: Order Comment: Speci men Type: BLOOD SPECIMENOrdering Facility: [facility] Address: [address] [address] Performed By: #### 2 4321-2 ####[facility]ORATORYCLIA [id number] [place] [address] [place] Creatinine [Mass/Vol] 0.55 mg/dL Low 0.58-0.96 [facility] Comment on above: Order Comment: Speci men Type: BLOOD SPECIMENOrdering Facility: [facility] Address: [address] [place] [address] Performed By: #### 2 4321-2 ####[facility]ITALCLIA [id number] [place] [id number] [facility] [place] ESTIMATED GLOMERULAR FILTRATION RATE 106 mL/min/1.73m??? Normal >=60 [facility] Comment on above: Order Comment: Tawanda mosley Type: BLOOD SPECIMENOrdering Facility: [facility] Address: [address] [place] [address] Result Comment: Manasa mated Glomerular Filtration Rate [...] actual GFR. Performed By: #### 2 4321-2 ####[facility]PITALCLIA [id number] [place] [address] [place] Glucose [Mass/Vol] 123 mg/dL High 74-99 [facility] Comment on above: Order Comment: Tawanda mosley Type: BLOOD SPECIMENOrdering Facility: [facility] Address: [address] [place] [address] Result Comment: The [place] [employer] (ADA) provides guidance for cutoff [...] Standards of Medical Care in Diabetes 2016, [place] [employer]. Diabetes Care. 2016.39(Suppl 1). Performed By: #### 2 4321-2 ####[facility]ORATORYCLIA [id number] [place] [id number] [place] Potassium [Moles/Vol] 3.9 mmol/L Normal 3.7-5.1 [facility] Comment on above: Order Comment: Speci men Type: BLOOD SPECIMENOrdering Facility: [facility] Address: [address] [place] [address] Performed By: #### 2 4321-2 ####[facility]ORATORYCLIA [id number] [address] [place] Sodium [Moles/Vol] 137 mmol/L Normal 136-144 [facility] Comment on above: Order Comment: Speci men Type: BLOOD SPECIMENOrdering Facility: [facility] Address: [address] [place] [address] Performed By: #### 2 4321-2 ####[facility]ORATORYCLIA [id number] [address] [place] Urea nitrogen [Mass/Vol] 14 mg/dL Normal 7-21 [facility] Comment on above: Order Comment: Speci men Type: BLOOD SPECIMENOrdering Facility: [facility] Address: [address] [place] [address] Performed By: #### 2 4321-2 ####[facility]ORATORYCLIA [id number] [address] [place] CASE MGT INIT ASSESon 2022 CASE MGT INIT ASSES Normal [facility] CBC W Auto Differential pane l (Bld)on 08-14-2022 Basophils (Bld) [#/Vol] 0.08 10*3/uL Normal <0.11 [facility] Comment on above: Order Comment: Speci men Type: BLOOD SPECIMENOrdering Facility: [facility] Address: [address] [place] [address] Performed By: #### 5 7021-8 ####[facility]ORATORYCLIA [id number] [address] [place] Basophils/100 WBC (Bld) 0.7 % Normal [facility] Comment on above: Order Comment: Speci men Type: BLOOD SPECIMENOrdering Facility: [facility] Address: [address] [place] [address] Performed By: #### 5 7021-8 ####[facility]ATORYCLIA [id number] [address] Differential cell count method Nom (Bld) Auto Normal [facility] Comment on above: Order Comment: Speci men Type: BLOOD SPECIMENOrdering Facility: [facility] Address: [address] [place] [address] Performed By: #### 5 7021-8 ####[facility]ORATORYCLIA [id number] [address] STATES OF [facility] Eosinophils (Bld) [#/Vol] 0.36 10*3/uL Normal <0.46 [facility] Comment on above: Order Comment: Speci men Type: BLOOD SPECIMENOrdering Facility: [facility] Address: [address] [place] [address] Performed By: #### 5 7021-8 ####[facility]ATORYCLIA [id number] [address] Eosinophils/100 WBC (Bld) 3.3 % Normal [facility] Comment on above: Order Comment: Speci men Type: BLOOD SPECIMENOrdering Facility: [facility] Address: [address] [place] [address] Performed By: #### 5 7021-8 ####[facility]ATORYCLIA [id number] [address] Erythrocyte distribution width (RBC) [Ratio] 12.8 % Normal 11.5-15.0 [facility] Comment on above: Order Comment: Speci men Type: BLOOD SPECIMENOrdering Facility: [facility] Address: [address] [place] [address] Performed By: #### 5 7021-8 ####[facility]ORATORYCLIA [id number] [address] Hematocrit (Bld) [Volume fraction] 38.4 % Normal 36.0-46.0 [facility] Comment on above: Order Comment: Speci men Type: BLOOD SPECIMENOrdering Facility: [facility] Address: [address] [place] [address] Performed By: #### 5 7021-8 ####[facility]ORATORYCLIA [id number] [place] [address] [place] Hemoglobin (Bld) [Mass/Vol] 12.3 g/dL Normal 11.5-15.5 [facility] Comment on above: Order Comment: Speci men Type: BLOOD SPECIMENOrdering Facility: [facility] Address: [address] [place] [address] Performed By: #### 5 7021-8 ####[facility]ATORYCLIA [id number] [address] [place] Immature granulocytes (Bld) [#/Vol] 0.04 10*3/uL Normal <0.10 [facility] Comment on above: Order Comment: Speci men Type: BLOOD SPECIMENOrdering Facility: [facility] Address: [address] [place] [address] Performed By: #### 5 7021-8 ####[facility]ORATORYCLIA [id number] [address] [place] Immature granulocytes/100 WBC (Bld) 0.4 % Normal [facility] Comment on above: Order Comment: Speci men Type: BLOOD SPECIMENOrdering Facility: [facility] Address: [address] [place] [address] Performed By: #### 5 7021-8 ####[facility]ATORYCLIA [id number] [address] [place] Lymphocytes (Bld) [#/Vol] 2.15 10*3/uL Normal 1.00-4.00 [facility] Comment on above: Order Comment: Speci men Type: BLOOD SPECIMENOrdering Facility: [facility] Address: [address] [place] [address] Performed By: #### 5 7021-8 ####[facility]ORYCLIA [id number] [address] [place] Lymphocytes/100 WBC (Bld) 19.9 % Normal [facility] Comment on above: Order Comment: Speci men Type: BLOOD SPECIMENOrdering Facility: [facility] Address: [address] [place] [address] Performed By: #### 5 7021-8 ####[facility]ORATORYCLIA [id number] [address] MCH (RBC) [Entitic mass] 28.8 pg Normal 26.0-34.0 [facility] Comment on above: Order Comment: Speci men Type: BLOOD SPECIMENOrdering Facility: [facility] Address: [address] [place] [address] Performed By: #### 5 7021-8 ####[facility]ATORYCLIA [id number] [address] MCHC (RBC) [Mass/Vol] 32.0 g/dL Normal 30.5-36.0 [facility] Comment on above: Order Comment: Speci men Type: BLOOD SPECIMENOrdering Facility: [facility] Address: [address] [place] [address] Performed By: #### 5 7021-8 ####[facility]ORATORYCLIA [id number] [address] MCV (RBC) [Entitic vol] 89.9 fL Normal 80.0-100.0 [facility] Comment on above: Order Comment: Speci men Type: BLOOD SPECIMENOrdering Facility: [facility] Address: [address] [place] [address] Performed By: #### 5 7021-8 ####[facility]ORATORYCLIA [id number] [address] Monocytes (Bld) [#/Vol] 0.90 10*3/uL High <0.87 [facility] Comment on above: Order Comment: Speci men Type: BLOOD SPECIMENOrdering Facility: [facility] Address: [address] [place] [address] Performed By: #### 5 7021-8 ####[facility]ORATORYCLIA [id number] [address] [place] Monocytes/100 WBC (Bld) 8.3 % Normal [facility] Comment on above: Order Comment: Speci men Type: BLOOD SPECIMENOrdering Facility: [facility] Address: [address] [place] [address] Performed By: #### 5 7021-8 ####[facility]ORATORYCLIA [id number] [place] [address] [place] Neutrophils (Bld) [#/Vol] 7.27 10*3/uL Normal 1.45-7.50 [facility] Comment on above: Order Comment: Speci men Type: BLOOD SPECIMENOrdering Facility: [facility] Address: [address] [place] [address] Performed By: #### 5 7021-8 ####[facility]ORATORYCLIA [id number] [address] [place] Neutrophils/100 WBC (Bld) 67.4 % Normal [facility] Comment on above: Order Comment: Speci men Type: BLOOD SPECIMENOrdering Facility: [facility] Address: [address] [place] [address] Performed By: #### 5 7021-8 ####[facility]ATORYCLIA [id number] [address] [place] Nucleated RBC (Bld) [#/Vol] 10*3/uL Normal <0.01 [facility] Comment on above: Order Comment: Speci men Type: BLOOD SPECIMENOrdering Facility: [facility] Address: [address] [place] [address] Performed By: #### 5 7021-8 ####[facility]ATORYCLIA [id number] [address] [place] Nucleated RBC/100 WBC (Bld) [Ratio] 0.0 /100 WBC Normal [facility] Comment on above: Order Comment: Speci men Type: BLOOD SPECIMENOrdering Facility: [facility] Address: [address] [place], [place] [id number] Performed By: #### 5 7021-8 ####[facility]ORATORYCLIA [id number] [address] [place] Platelet mean volume (Bld) [Entitic vol] 10.7 fL Normal 9.0-12.7 [facility] Comment on above: Order Comment: Speci men Type: BLOOD SPECIMENOrdering Facility: [facility] Address: [address] [place] [address] Performed By: #### 5 7021-8 ####[facility]ATORYCLIA [id number] [place] [address] [place] Platelets (Bld) [#/Vol] 281 10*3/uL Normal 150-400 [facility] Comment on above: Order Comment: Speci men Type: BLOOD SPECIMENOrdering Facility: [facility] Address: [address] [place] [address] Performed By: #### 5 7021-8 ####[facility]ATORYCLIA [id number] [place] [address] [place] RBC (Bld) [#/Vol] 4.27 10*6/uL Normal 3.90-5.20 [facility] Comment on above: Order Comment: Speci men Type: BLOOD SPECIMENOrdering Facility: [facility] Address: [address] [place] [address] Performed By: #### 5 7021-8 ####[facility]ATORYCLIA [id number] [address] [place] WBC (Bld) [#/Vol] 10.80 10*3/uL Normal 3.70-11.00 [facility] Comment on above: Order Comment: Speci men Type: BLOOD SPECIMENOrdering Facility: [facility] Address: [address] [place] [address] Performed By: #### 5 7021-8 ####[facility]ATORYCLIA [id number] [address] [place] CONSULT PROGon 08-14-2022 CONSULT PROG Normal [facility] CONSULT PROG Normal [facility] ED NOTEon 08-14-2022 ED NOTE HNO ID: [id number] Author: Iglesia Gee RN Service: ? Author Type: Registered Nurse Type: ED Notes Filed: 08/14/2022 1:34 PM Note Text: Report given to Candi RAMOS 2100 at this time. No further questions at this time. Bed not clean at this time Normal [facility] ED NOTE HNO ID: [id number] Author: Iglesia Gee RN Service: ? Author Type: Registered Nurse Type: ED Notes Filed: 08/14/2022 11:45 AM Note Text: Seizure pads applied to the bed Normal [facility] ED NOTE HNO ID: [id number] Author: Iglesia Gee RN Service: ? Author Type: Registered Nurse Type: ED Notes Filed: 08/14/2022 8:35 AM Note Text: Pt sitting on edge of bed in tears asking to leave. Normal [facility] ED PROV NOTEon 08-14-2022 ED PROV NOTE Normal [facility] ED PROV NOTE Normal [facility] HISTORY PHYSICALon HISTORY PHYSICAL Normal [facility] Bacteria Bld Culton 08-13-19 23 Bacteria identified Cx Nom (Bld) CULTURE, BLOOD: No growth 5 days Normal [facility] Comment on above: Performed By: #### 6 00-7 ####[facility]ORATORYCLIA [id number] [place] [address] [place] Basic metabolic 2000 panelon 08-13-2022 Anion gap [Moles/Vol] 8 mmol/L Low 9-18 [facility] Comment on above: Order Comment: Speci men Type: BLOOD SPECIMENOrdering Facility: [facility] Address: [address] [place] [id number] Performed By: #### 2 4321-2 ####[facility]ORATORYCLIA [id number] [place] [address] [place] Calcium [Mass/Vol] 9.5 mg/dL Normal 8.5-10.2 [facility] Comment on above: Order Comment: Speci men Type: BLOOD SPECIMENOrdering Facility: [facility] Address: [address] [address] Performed By: #### 2 4321-2 ####[facility]ATORYCLIA [id number] [address] Chloride [Moles/Vol] 100 mmol/L Normal 97-105 [facility] Comment on above: Order Comment: Speci men Type: BLOOD SPECIMENOrdering Facility: [facility] Address: [address] [place] [address] Performed By: #### 2 4321-2 ####[facility]ATORYCLIA [id number] [address] [place] CO2 [Moles/Vol] 28 mmol/L Normal 22-30 [facility] Comment on above: Order Comment: Speci men Type: BLOOD SPECIMENOrdering Facility: [facility] Address: [address] [place] [address] Performed By: #### 2 4321-2 ####[facility]ORATORYCLIA [id number] [address] OF [facility] Creatinine [Mass/Vol] 0.61 mg/dL Normal 0.58-0.96 [facility] Comment on above: Order Comment: Speci men Type: BLOOD SPECIMENOrdering Facility: [facility] Address: [address] [place] [address] Performed By: #### 2 4321-2 ####[facility]ATORYCLIA [id number] [address] ESTIMATED GLOMERULAR FILTRATION RATE 104 mL/min/1.73m??? Normal >=60 [facility] Comment on above: Order Comment: Speci men Type: BLOOD SPECIMENOrdering Facility: [facility] Address: [address] [place] [address] Result Comment: Manasa mated Glomerular Filtration Rate [...] actual GFR. Performed By: #### 2 4321-2 ####[facility]ATORYCLIA [id number] [place] [address] [place] Glucose [Mass/Vol] 158 mg/dL High 74-99 [facility] Comment on above: Order Comment: Tawanda mosley Type: BLOOD SPECIMENOrdering Facility: [facility] Address: [address] [place] [address] Result Comment: The [place] [employer] (ADA) provides guidance for cutoff [...] Standards of Medical Care in Diabetes 2016, [place] [employer]. Diabetes Care. 2016.39(Suppl 1). Performed By: #### 2 4321-2 ####[facility]ATORYCLIA [id number] [place] [address] [place] Potassium [Moles/Vol] 4.1 mmol/L Normal 3.7-5.1 [facility] Comment on above: Order Comment: Tawanda mosley Type: BLOOD SPECIMENOrdering Facility: [facility] Address: [address] [address] Performed By: #### 2 4321-2 ####[facility]ATORYCLIA [id number] [place] [address] [place] Sodium [Moles/Vol] 136 mmol/L Normal 136-144 [facility] Comment on above: Order Comment: Tawanda mosley Type: BLOOD SPECIMENOrdering Facility: [facility] Address: [address] [address] Performed By: #### 2 4321-2 ####[facility]ATORYCLIA [id number] [address] [place] Urea nitrogen [Mass/Vol] 15 mg/dL Normal 7-21 [facility] Comment on above: Order Comment: Speci men Type: BLOOD SPECIMENOrdering Facility: [facility] Address: [address] [place] [address] Performed By: #### 2 4321-2 ####[facility]ORATORYCLIA [id number] [address] STATES OF [facility] CBC W Auto Differential pane l (Bld)on 08-13-2022 Basophils (Bld) [#/Vol] 0.09 10*3/uL Normal <0.11 [facility] Comment on above: Order Comment: Speci men Type: BLOOD SPECIMENOrdering Facility: [facility] Address: [address] [place] [address] Performed By: #### 5 7021-8 ####[facility]ORYCLIA [id number] [address] [place] Basophils/100 WBC (Bld) 0.9 % Normal [facility] Comment on above: Order Comment: Speci men Type: BLOOD SPECIMENOrdering Facility: [facility] Address: [address] [place] [address] Performed By: #### 5 7021-8 ####[facility]ORYCLIA [id number] [address] Differential cell count method Nom (Bld) Auto Normal [facility] Comment on above: Order Comment: Speci men Type: BLOOD SPECIMENOrdering Facility: [facility] Address: [address] [place] [address] Performed By: #### 5 7021-8 ####[facility]ORATORYCLIA [id number] [address] [place] Eosinophils (Bld) [#/Vol] 0.36 10*3/uL Normal <0.46 [facility] Comment on above: Order Comment: Speci men Type: BLOOD SPECIMENOrdering Facility: [facility] Address: [facility] [address] [address] Performed By: #### 5 7021-8 ####[facility]ATORYCLIA [id number] [address] Eosinophils/100 WBC (Bld) 3.5 % Normal [facility] Comment on above: Order Comment: Speci men Type: BLOOD SPECIMENOrdering Facility: [facility] Address: [address] [place] [address] Performed By: #### 5 7021-8 ####[facility]ORATORYCLIA [id number] [address] [place] Erythrocyte distribution width (RBC) [Ratio] 12.9 % Normal 11.5-15.0 [facility] Comment on above: Order Comment: Speci men Type: BLOOD SPECIMENOrdering Facility: [facility] Address: [address] [place] [address] Performed By: #### 5 7021-8 ####[facility]ATORYCLIA [id number] [address] Hematocrit (Bld) [Volume fraction] 40.6 % Normal 36.0-46.0 [facility] Comment on above: Order Comment: Speci men Type: BLOOD SPECIMENOrdering Facility: [facility] Address: [address] [place] [address] Performed By: #### 5 7021-8 ####[facility]ORATORYCLIA [id number] [address] [place] Hemoglobin (Bld) [Mass/Vol] 12.9 g/dL Normal 11.5-15.5 [facility] Comment on above: Order Comment: Speci men Type: BLOOD SPECIMENOrdering Facility: [facility] Address: [address] [place] [address] Performed By: #### 5 7021-8 ####[facility]ORATORYCLIA [id number] [address] [place] Immature granulocytes (Bld) [#/Vol] 0.03 10*3/uL Normal <0.10 [facility] Comment on above: Order Comment: Speci men Type: BLOOD SPECIMENOrdering Facility: [facility] Address: [address] [place] [address] Performed By: #### 5 7021-8 ####[facility]ATORYCLIA [id number] [address] Immature granulocytes/100 WBC (Bld) 0.3 % Normal [facility] Comment on above: Order Comment: Speci men Type: BLOOD SPECIMENOrdering Facility: [facility] Address: [address] [place] [address] Performed By: #### 5 7021-8 ####[facility]ORATORYCLIA [id number] [address] Lymphocytes (Bld) [#/Vol] 2.42 10*3/uL Normal 1.00-4.00 [facility] Comment on above: Order Comment: Speci men Type: BLOOD SPECIMENOrdering Facility: [facility] Address: [address] [place] [address] Performed By: #### 5 7021-8 ####[facility]ATORYCLIA [id number] [address] Lymphocytes/100 WBC (Bld) 23.3 % Normal [facility] Comment on above: Order Comment: Speci men Type: BLOOD SPECIMENOrdering Facility: [facility] Address: [address] [place] [address] Performed By: #### 5 7021-8 ####[facility]ORATORYCLIA [id number] [address] [place] MCH (RBC) [Entitic mass] 28.7 pg Normal 26.0-34.0 [facility] Comment on above: Order Comment: Speci men Type: BLOOD SPECIMENOrdering Facility: [facility] Address: [address] [place] [address] Performed By: #### 5 7021-8 ####[facility]ATORYCLIA [id number] [address] STATES OF [facility] MCHC (RBC) [Mass/Vol] 31.8 g/dL Normal 30.5-36.0 [facility] Comment on above: Order Comment: Speci men Type: BLOOD SPECIMENOrdering Facility: [facility] Address: [address] [place] [address] Performed By: #### 5 7021-8 ####[facility]ATORYCLIA [id number] [address] [place] MCV (RBC) [Entitic vol] 90.2 fL Normal 80.0-100.0 [facility] Comment on above: Order Comment: Speci men Type: BLOOD SPECIMENOrdering Facility: [facility] Address: [address] [place] [address] Performed By: #### 5 7021-8 ####[facility]ATORYCLIA [id number] [address] [place] Monocytes (Bld) [#/Vol] 0.83 10*3/uL Normal <0.87 [facility] Comment on above: Order Comment: Speci men Type: BLOOD SPECIMENOrdering Facility: [facility] Address: [address] [place] [address] Performed By: #### 5 7021-8 ####[facility]ATORYCLIA [id number] [address] [place] Monocytes/100 WBC (Bld) 8.0 % Normal [facility] Comment on above: Order Comment: Speci men Type: BLOOD SPECIMENOrdering Facility: [facility] Address: [address] [place] [address] Performed By: #### 5 7021-8 ####[facility] LABORATORYCLIA [id number] [address] [place] Neutrophils (Bld) [#/Vol] 6.65 10*3/uL Normal 1.45-7.50 [facility] Comment on above: Order Comment: Speci men Type: BLOOD SPECIMENOrdering Facility: [facility] Address: [address] [place] [address] Performed By: #### 5 7021-8 ####[facility]ATORYCLIA [id number] [address] Neutrophils/100 WBC (Bld) 64.0 % Normal [facility] Comment on above: Order Comment: Speci men Type: BLOOD SPECIMENOrdering Facility: [facility] Address: [address] [place] [address] Performed By: #### 5 7021-8 ####[facility]ATORYCLIA [id number] [address] [place] Nucleated RBC (Bld) [#/Vol] 10*3/uL Normal <0.01 [facility] Comment on above: Order Comment: Speci men Type: BLOOD SPECIMENOrdering Facility: [facility] Address: [address] [place] [address] Performed By: #### 5 7021-8 ####[facility]ORATORYCLIA [id number] [address] Nucleated RBC/100 WBC (Bld) [Ratio] 0.0 /100 WBC Normal [facility] Comment on above: Order Comment: Speci men Type: BLOOD SPECIMENOrdering Facility: [facility] Address: [address] [place] [address] Performed By: #### 5 7021-8 ####[facility] LABORATORYCLIA [id number] [address] [place] Platelet mean volume (Bld) [Entitic vol] 10.4 fL Normal 9.0-12.7 [facility] Comment on above: Order Comment: Speci men Type: BLOOD SPECIMENOrdering Facility: [facility] Address: [address] [place] [address] Performed By: #### 5 7021-8 ####[facility]ORATORYCLIA [id number] [address] [place] Platelets (Bld) [#/Vol] 289 10*3/uL Normal 150-400 [facility] Comment on above: Order Comment: Speci men Type: BLOOD SPECIMENOrdering Facility: [facility] Address: [address] [place] [address] Performed By: #### 5 7021-8 ####[facility]ORATORYCLIA [id number] [address] OF [facility] RBC (Bld) [#/Vol] 4.50 10*6/uL Normal 3.90-5.20 [facility] Comment on above: Order Comment: Speci men Type: BLOOD SPECIMENOrdering Facility: [facility] Address: [address] [place] [address] Performed By: #### 5 7021-8 ####[facility]ORATORYCLIA [id number] [address] OF [facility] WBC (Bld) [#/Vol] 10.38 10*3/uL Normal 3.70-11.00 [facility] Comment on above: Order Comment: Speci men Type: BLOOD SPECIMENOrdering Facility: [facility] Address: [address] [place] [address] Performed By: #### 5 7021-8 ####[facility]ORATORYCLIA [id number] [address] CONSULTon 08-13-2022 CONSULT Normal [facility] CONSULT Normal [facility] CONSULT Normal [facility] ED NOTEon 08-13-2022 ED NOTE HNO ID: [id number] Author: Nestor Christianson RN Service: Emergency Medicine Author Type: Registered Nurse Type: ED Notes Filed: 08/13/2022 5:34 PM Note Text: Patient witnessed exiting room and heading to ed lobby in wheelchair Normal [facility] ED NOTE Normal [facility] ED NOTE Normal [facility] ED NOTE Normal [facility] ED NOTE HNO ID: [id number] Author: Nestor Christianson RN Service: Emergency Medicine Author Type: Registered Nurse Type: ED Notes Filed: 08/13/2022 4:08 PM Note Text: Sound physician contacted to notify them of patient's wishes to leave AMA Normal [facility] ED NOTE Normal [facility] ED NOTE Normal [facility] ED NOTE HNO ID: [id number] Author: Nestor Christianson RN Service: Emergency Medicine Author Type: Registered Nurse Type: ED Notes Filed: 08/13/2022 3:27 PM Note Text: Nurse not available for report at this time. Normal [facility] ED NOTE HNO ID: [id number] Author: Ivon Voss RN Service: Emergency Medicine Author Type: Registered Nurse Type: ED Notes Filed: 08/13/2022 2:55 PM Note Text: Pt placed on external cath Normal [facility] ED NOTE HNO ID: [id number] Author: Tierra Gomez RN Service: ? Author Type: Registered Nurse Type: ED Notes Filed: 08/13/2022 6:37 AM Note Text: Spoke with MD, awaiting orders. Normal [facility] ED NOTE HNO ID: [id number] Author: Tierra Gomez RN Service: ? Author Type: Registered Nurse Type: ED Notes Filed: 08/13/2022 6:20 AM Note Text: Pt c/o pain. Admit MD paged. [facility] ED NOTE HNO ID: [id number] Author: Cecy White RN Service: ? Author Type: Registered Nurse Type: ED Notes Filed: 08/13/2022 3:03 AM Note Text: Bed: 15-ED Expected date: Expected time: Means of arrival: Comments: SQUAD Normal [facility] ED PROV NOTEon 08-13-2022 ED PROV NOTE Normal [facility] ED PROV NOTE Normal [facility] ED Triage Noteon 08-13-2022 ED Triage Note Normal [facility] HISTORY PHYSICALon HISTORY PHYSICAL Normal [facility] SARS-CoV-2 RNA Resp Ql RODERICK+p robeon 08-13-2022 SARS-CoV-2 (COVID-19) RNA RODERICK+probe Ql (Resp) COVID 19 RESULT: SARS-CoV-2 (Agent of COVID-19) Not Detected by RT-PCR or equivalent method. This test has been authorized by FDA under an Emergency Use Authorization (EUA). [facility] Comment on above: Performed By: #### 9 4500-6 ####[facility]ATORYCLIA [id number] [place] [address] [place] ALLIED HEALTHon 08-12-2022 ALLIED HEALTH Normal [facility] CBC W Auto Differential pane l (Bld)on 08-12-2022 Basophils (Bld) [#/Vol] 0.08 10*3/uL Normal <0.11 [facility] Comment on above: Order Comment: Speci men Type: BLOOD SPECIMENOrdering Facility: [facility] Address: [address] [place] [address] Performed By: #### 5 7021-8 ####[facility]ORYCLIA [id number] [address] Basophils/100 WBC (Bld) 0.9 % Normal [facility] Comment on above: Order Comment: Speci men Type: BLOOD SPECIMENOrdering Facility: [facility] Address: [address] [place] [address] Performed By: #### 5 7021-8 ####[facility]ORATORYCLIA [id number] [address] [place] [facility] Differential cell count method Nom (Bld) Auto Normal [facility] Comment on above: Order Comment: Speci men Type: BLOOD SPECIMENOrdering Facility: [facility] Address: [address] [place] [address] Performed By: #### 5 7021-8 ####[facility]ATORYCLIA [id number] [address] [place] Eosinophils (Bld) [#/Vol] 0.37 10*3/uL Normal <0.46 [facility] Comment on above: Order Comment: Speci men Type: BLOOD SPECIMENOrdering Facility: [facility] Address: [address] [place] [address] Performed By: #### 5 7021-8 ####[facility]ORYCLIA [id number] [address] [place] Eosinophils/100 WBC (Bld) 4.2 % Normal [facility] Comment on above: Order Comment: Speci men Type: BLOOD SPECIMENOrdering Facility: [facility] Address: [address] [place] [address] Performed By: #### 5 7021-8 ####[facility]ORATORYCLIA [id number] [address] [place] Erythrocyte distribution width (RBC) [Ratio] 13.0 % Normal 11.5-15.0 [facility] Comment on above: Order Comment: Speci men Type: BLOOD SPECIMENOrdering Facility: [facility] Address: [address] [place] [address] Performed By: #### 5 7021-8 ####[facility]ORATORYCLIA [id number] [address] [place] Hematocrit (Bld) [Volume fraction] 37.4 % Normal 36.0-46.0 [facility] Comment on above: Order Comment: Speci men Type: BLOOD SPECIMENOrdering Facility: [facility] Address: [address] [place] [address] Performed By: #### 5 7021-8 ####[facility]ORATORYCLIA [id number] [address] [place] Hemoglobin (Bld) [Mass/Vol] 11.9 g/dL Normal 11.5-15.5 [facility] Comment on above: Order Comment: Speci men Type: BLOOD SPECIMENOrdering Facility: [facility] Address: [address] [place] [address] Performed By: #### 5 7021-8 ####[facility]ORATORYCLIA [id number] [address] [place] Immature granulocytes (Bld) [#/Vol] 0.03 10*3/uL Normal <0.10 [facility] Comment on above: Order Comment: Speci men Type: BLOOD SPECIMENOrdering Facility: [facility] Address: [address] [place] [address] Performed By: #### 5 7021-8 ####[facility]ORATORYCLIA [id number] [address] Immature granulocytes/100 WBC (Bld) 0.3 % Normal [facility] Comment on above: Order Comment: Speci men Type: BLOOD SPECIMENOrdering Facility: [facility] Address: [address] [place] [address] Performed By: #### 5 7021-8 ####[facility]ORATORYCLIA [id number] [address] [place] Lymphocytes (Bld) [#/Vol] 3.16 10*3/uL Normal 1.00-4.00 [facility] Comment on above: Order Comment: Speci men Type: BLOOD SPECIMENOrdering Facility: [facility] Address: [address] [place] [address] Performed By: #### 5 7021-8 ####[facility]ATORYCLIA [id number] [address] Lymphocytes/100 WBC (Bld) 35.9 % Normal [facility] Comment on above: Order Comment: Speci men Type: BLOOD SPECIMENOrdering Facility: [facility] Address: [address] [place] [address] Performed By: #### 5 7021-8 ####[facility]ORATORYCLIA [id number] [address] [place] MCH (RBC) [Entitic mass] 29.0 pg Normal 26.0-34.0 [facility] Comment on above: Order Comment: Speci men Type: BLOOD SPECIMENOrdering Facility: [facility] Address: [address] [place] [address] Performed By: #### 5 7021-8 ####[facility]ORATORYCLIA [id number] [address] [place] [facility] MCHC (RBC) [Mass/Vol] 31.8 g/dL Normal 30.5-36.0 [facility] Comment on above: Order Comment: Speci men Type: BLOOD SPECIMENOrdering Facility: [facility] Address: [address] [place], [place] [address] Performed By: #### 5 7021-8 ####[facility]ATORYCLIA [id number] [place] [address] [place] MCV (RBC) [Entitic vol] 91.0 fL Normal 80.0-100.0 [facility] Comment on above: Order Comment: Speci men Type: BLOOD SPECIMENOrdering Facility: [facility] Address: [address] [place] [address] Performed By: #### 5 7021-8 ####[facility] LABORATORYCLIA [id number] [place] [address] [place] Monocytes (Bld) [#/Vol] 0.70 10*3/uL Normal <0.87 [facility] Comment on above: Order Comment: Speci men Type: BLOOD SPECIMENOrdering Facility: [facility] Address: [address] [place] [address] Performed By: #### 5 7021-8 ####[facility]ORATORYCLIA [id number] [address] [place] Monocytes/100 WBC (Bld) 7.9 % Normal [facility] Comment on above: Order Comment: Speci men Type: BLOOD SPECIMENOrdering Facility: [facility] Address: [address] [place] [address] Performed By: #### 5 7021-8 ####[facility]ORATORYCLIA [id number] [place] [address] [place] Neutrophils (Bld) [#/Vol] 4.47 10*3/uL Normal 1.45-7.50 [facility] Comment on above: Order Comment: Speci men Type: BLOOD SPECIMENOrdering Facility: [facility] Address: [address] [place] [address] Performed By: #### 5 7021-8 ####[facility]ORATORYCLIA [id number] [address] [place] Neutrophils/100 WBC (Bld) 50.8 % Normal [facility] Comment on above: Order Comment: Speci men Type: BLOOD SPECIMENOrdering Facility: [facility] Address: [address] [address] Performed By: #### 5 7021-8 ####[facility]ORATORYCLIA [id number] [address] Nucleated RBC (Bld) [#/Vol] 10*3/uL Normal <0.01 [facility] Comment on above: Order Comment: Speci men Type: BLOOD SPECIMENOrdering Facility: [facility] Address: [address] [address] Performed By: #### 5 7021-8 ####[facility]ORATORYCLIA [id number] [address] STATES OF [facility] Nucleated RBC/100 WBC (Bld) [Ratio] 0.0 /100 WBC Normal [facility] Comment on above: Order Comment: Speci men Type: BLOOD SPECIMENOrdering Facility: [facility] Address: [address] [address] Performed By: #### 5 7021-8 ####[facility]ORATORYCLIA [id number] [address] [place] Platelet mean volume (Bld) [Entitic vol] 10.6 fL Normal 9.0-12.7 [facility] Comment on above: Order Comment: Speci men Type: BLOOD SPECIMENOrdering Facility: [facility] Address: [address] [address] Performed By: #### 5 7021-8 ####[facility]ATORYCLIA [id number] [address] [place] Platelets (Bld) [#/Vol] 283 10*3/uL Normal 150-400 [facility] Comment on above: Order Comment: Speci men Type: BLOOD SPECIMENOrdering Facility: [facility] Address: [address] [place] [address] Performed By: #### 5 7021-8 ####[facility]ATORYCLIA [id number] [address] [place] RBC (Bld) [#/Vol] 4.11 10*6/uL Normal 3.90-5.20 [facility] Comment on above: Order Comment: Speci men Type: BLOOD SPECIMENOrdering Facility: [facility] Address: [address] [place] [address] Performed By: #### 5 7021-8 ####[facility]ORATORYCLIA [id number] [address] STATES OF [facility] WBC (Bld) [#/Vol] 8.81 10*3/uL Normal 3.70-11.00 [facility] Comment on above: Order Comment: Speci men Type: BLOOD SPECIMENOrdering Facility: [facility] Address: [address] [place] [address] Performed By: #### 5 7021-8 ####[facility]ORATORYCLIA [id number] [address] CRP SerPl-ncon 08-12-2022 CRP [Mass/Vol] 1.1 mg/dL High <0.9 [facility] Comment on above: Order Comment: Speci men Type: BLOOD SPECIMENOrdering Facility: [facility] Address: [address] [place] [address] Performed By: #### 1 988-5, 53925-4 ####[facility]ORATORYCLIA [id number] [address] Comprehensive metabolic 2000 panelon 08-12-2022 Albumin [Mass/Vol] 4.1 g/dL Normal 3.9-4.9 [facility] Comment on above: Order Comment: Speci men Type: BLOOD SPECIMENOrdering Facility: [facility] Address: [address] [place] [address] Performed By: #### 1 988-5, 11539-6 ####[facility]ORATORYCLIA [id number] [address] [place] ALP [Catalytic activity/Vol] 98 U/L Normal 34-123 [facility] Comment on above: Order Comment: Speci men Type: BLOOD SPECIMENOrdering Facility: [facility] Address: [address] [address] Performed By: #### 1 988-5, 84629-6 ####[facility]ORATORYCLIA [id number] [address] ALT With P-5'-P [Catalytic activity/Vol] 19 U/L Normal 7-38 [facility] Comment on above: Order Comment: Speci men Type: BLOOD SPECIMENOrdering Facility: [facility] Address: [address] [place] [address] Performed By: #### 1 988-5, 79965-8 ####[facility]ORATORYCLIA [id number] [address] Anion gap [Moles/Vol] 11 mmol/L Normal 9-18 [facility] Comment on above: Order Comment: Speci men Type: BLOOD SPECIMENOrdering Facility: [facility] Address: [address] [place] [address] Performed By: #### 1 988-5, 41144-4 ####[facility]ORATORYCLIA [id number] [address] AST With P-5'-P [Catalytic activity/Vol] 22 U/L Normal 13-35 [facility] Comment on above: Order Comment: Speci men Type: BLOOD SPECIMENOrdering Facility: [facility] Address: [address] [place] [address] Performed By: #### 1 988-5, 86267-3 ####[facility]ORATORYCLIA [id number] [address] [place] Bilirubin [Mass/Vol] 0.3 mg/dL Normal 0.2-1.3 [facility] Comment on above: Order Comment: Speci men Type: BLOOD SPECIMENOrdering Facility: [facility] Address: [address] [place] [address] Performed By: #### 1 988-5, ####[facility]ORYCLIA [id number] [place] [address] [place] Calcium [Mass/Vol] 9.5 mg/dL Normal 8.5-10.2 [facility] Comment on above: Order Comment: Speci men Type: BLOOD SPECIMENOrdering Facility: [facility] Address: [address] [place] [address] Performed By: #### 1 988-5, 14099-9 ####[facility]ATORYCLIA [id number] [place] [address] [place] Chloride [Moles/Vol] 103 mmol/L Normal 97-105 [facility] Comment on above: Order Comment: Speci men Type: BLOOD SPECIMENOrdering Facility: [facility] Address: [address] [place] [address] Performed By: #### 1 988-5, 61998-3 ####[facility]ATORYCLIA [id number] [address] [place] CO2 [Moles/Vol] 26 mmol/L Normal 22-30 [facility] Comment on above: Order Comment: Speci men Type: BLOOD SPECIMENOrdering Facility: [facility] Address: [address] [place] [address] Performed By: #### 1 988-5, 89505-6 ####[facility]ORYCLIA [id number] [address] [place] Creatinine [Mass/Vol] 0.59 mg/dL Normal 0.58-0.96 [facility] Comment on above: Order Comment: Speci men Type: BLOOD SPECIMENOrdering Facility: [facility] Address: [address] [place] [address] Performed By: #### 1 988-5, 58745-9 ####[facility]ORATORYCLIA [id number] [address] ESTIMATED GLOMERULAR FILTRATION RATE 105 mL/min/1.73m??? Normal >=60 [facility] Comment on above: Order Comment: Speci men Type: BLOOD SPECIMENOrdering Facility: [facility] Address: [facility] [address] [address] Result Comment: Manasa mated Glomerular Filtration Rate [...] actual GFR. Performed By: #### 1 988-5, 01307-8 ####[facility]ORATORYCLIA [id number] [place] [address] [place] Glucose [Mass/Vol] 117 mg/dL High 74-99 [facility] Comment on above: Order Comment: Tawanda men Type: BLOOD SPECIMENOrdering Facility: [facility] Address: [address] [place] [address] Result Comment: The [place] [employer] (ADA) provides guidance for cutoff [...] Standards of Medical Care in Diabetes 2016, [place] [employer]. Diabetes Care. 2016.39(Suppl 1). Performed By: #### 1 988-5, 58293-4 ####[facility]ORATORYCLIA [id number] [place] [address] [place] Potassium [Moles/Vol] 4.1 mmol/L Normal 3.7-5.1 [facility] Comment on above: Order Comment: Tawanda mosley Type: BLOOD SPECIMENOrdering Facility: [facility] Address: [address] [address] Performed By: #### 1 988-5, 92100-8 ####[facility]ORATORYCLIA [id number] [address] STATES OF [facility] Protein [Mass/Vol] 7.2 g/dL Normal 6.3-8.0 [facility] Comment on above: Order Comment: Speci men Type: BLOOD SPECIMENOrdering Facility: [facility] Address: [address] [place] [address] Performed By: #### 1 988-5, 28652-5 ####[facility]ORYCLIA [id number] [address] Sodium [Moles/Vol] 140 mmol/L Normal 136-144 [facility] Comment on above: Order Comment: Speci men Type: BLOOD SPECIMENOrdering Facility: [facility] Address: [address] [place] [address] Performed By: #### 1 988-5, 79509-9 ####[facility] LABORATORYCLIA [id number] [address] STATES [facility] Urea nitrogen [Mass/Vol] 11 mg/dL Normal 7-21 [facility] Comment on above: Order Comment: Speci men Type: BLOOD SPECIMENOrdering Facility: [facility] Address: [address] [place] [address] Performed By: #### 1 988-5, 41887-0 ####[facility]ATORYCLIA [id number] [address] [place] ED NOTEon 08-12-2022 ED NOTE HNO ID: [id number] Author: Luis Ku Service: Emergency Medicine Author Type: Roller Stainer Type: ED Notes Filed: 08/12/2022 7:43 PM Note Text: Pt. Stating pain level at 9-10 currently and hand is extremely swollen can barely move thumb Normal [facility] ED NOTE HNO ID: [id number] Author: Christina Jones RN Service: ? Author Type: Registered Nurse Type: ED Notes Filed: 08/12/2022 5:23 PM Note Text: XR notified pt ready for XR. Normal [facility] ED Triage Noteon 08-12-2022 ED Triage Note Normal [facility] ESR Westergren method (Bld) [Velocity]on 08-12-2022 ESR (Bld) [Velocity] 24 mm/h High 0-20 [facility] Comment on above: Order Comment: Speci men Type: BLOOD SPECIMENOrdering Facility: [facility] Address: [address] [place] [address] Performed By: #### 4 537-7 ####[facility] LABCLIA [id number] [facility]ENTERDESK [id number] [address] [place] XR FOREARM 2V AP/LAT RTon XR FOREARM 2V AP/LAT RT Normal [facility] XR HAND 3V PA/LAT/OBL RTon 0 08-12-2022 XR HAND 3V PA/LAT/OBL RT Normal [facility] Basic metabolic 2000 panelon 08-08-2022 Anion gap [Moles/Vol] 8 mmol/L Low 9-18 [facility] Comment on above: Order Comment: Speci men Type: BLOOD SPECIMENOrdering Facility: [facility] Address: [address] [place] [address] Performed By: #### 2 4321-2 ####[facility] LABORATORYCLIA [id number] [place] [address] [place] Calcium [Mass/Vol] 9.1 mg/dL Normal 8.5-10.2 [facility] Comment on above: Order Comment: Speci men Type: BLOOD SPECIMENOrdering Facility: [facility] Address: [address] [address] Performed By: #### 2 4321-2 ####[facility] LABORATORYCLIA [id number] [place] [address] [place] Chloride [Moles/Vol] 103 mmol/L Normal 97-105 [facility] Comment on above: Order Comment: Speci men Type: BLOOD SPECIMENOrdering Facility: [facility] Address: [address] [address] Performed By: #### 2 4321-2 ####[facility]ORATORYCLIA [id number] [address] CO2 [Moles/Vol] 28 mmol/L Normal 22-30 [facility] Comment on above: Order Comment: Speci men Type: BLOOD SPECIMENOrdering Facility: [facility] Address: [address] [address] Performed By: #### 2 4321-2 ####[facility]ORATORYCLIA [id number] [address] Creatinine [Mass/Vol] 0.57 mg/dL Low 0.58-0.96 [facility] Comment on above: Order Comment: Speci men Type: BLOOD SPECIMENOrdering Facility: [facility] Address: [address] [place] [address] Performed By: #### 2 4321-2 ####[facility]CL[facility] [id number] [address] ESTIMATED GLOMERULAR FILTRATION RATE 105 mL/min/1.73m??? Normal >=60 [facility] Comment on above: Order Comment: Speci men Type: BLOOD SPECIMENOrdering Facility: [facility] Address: [address] [place] [address] Result Comment: Manasa mated Glomerular Filtration Rate [...] actual GFR. Performed By: #### 2 4321-2 ####[facility] LABORATORYCLIA [id number] [address] Glucose [Mass/Vol] 216 mg/dL High 74-99 [facility] Comment on above: Order Comment: Speci men Type: BLOOD SPECIMENOrdering Facility: [facility] Address: [address] [place] [address] Result Comment: The [place] [employer] (ADA) provides guidance for cutoff [...] Standards of Medical Care in Diabetes 2016, [place] [employer]. Diabetes Care. 2016.39(Suppl 1). Performed By: #### 2 4321-2 ####[facility] LABORATORYCLIA [id number] [place] [address] [place] Potassium [Moles/Vol] 4.1 mmol/L Normal 3.7-5.1 [facility] Comment on above: Order Comment: Tawanda mosley Type: BLOOD SPECIMENOrdering Facility: [facility] Address: [address] [place] [address] Performed By: #### 2 4321-2 ####[facility] LABORATORYCLIA [id number] [place] [address] [place] Sodium [Moles/Vol] 139 mmol/L Normal 136-144 [facility] Comment on above: Order Comment: Tawanda mosley Type: BLOOD SPECIMENOrdering Facility: [facility] Address: [address] [place] [address] Performed By: #### 2 1-2 ####[facility] LABORATORYCLIA [id number] [place] [address] [place] Urea nitrogen [Mass/Vol] 10 mg/dL Normal 7-21 [facility] Comment on above: Order Comment: Tawanda mosley Type: BLOOD SPECIMENOrdering Facility: [facility] Address: [address] [place] [address] Performed By: #### 2 4321-2 ####[facility] LABORATORYCLIA [id number] [place] [address] [place] CASE MANAGEMon 08-08-2022 CASE MANAGEM Normal [facility] CNDSon 08-08-2022 CNDS Normal [facility] ALLIED HEALTHon 08-07-2022 ALLIED HEALTH Normal [facility] CASE MANAGEMon 08-07-2022 CASE MANAGEM Normal [facility] CBC W Auto Differential pane l (Bld)on 08-07-2022 Basophils (Bld) [#/Vol] 0.09 10*3/uL Normal <0.11 [facility] Comment on above: Order Comment: Speci men Type: BLOOD SPECIMENOrdering Facility: [facility] Address: [address] [address] Performed By: #### 5 7021-8 ####[facility]ORATORYCLIA [id number] [place] [address] [place] Basophils/100 WBC (Bld) 1.1 % Normal [facility] Comment on above: Order Comment: Speci men Type: BLOOD SPECIMENOrdering Facility: [facility] Address: [address] [place] [address] Performed By: #### 5 7021-8 ####[facility]ORATORYCLIA [id number] [place] [address] [place] Differential cell count method Nom (Bld) Auto Normal [facility] Comment on above: Order Comment: Speci men Type: BLOOD SPECIMENOrdering Facility: [facility] Address: [address] [place] [address] Performed By: #### 5 7021-8 ####[facility]ATORYCLIA [id number] [place] [address] [place] Eosinophils (Bld) [#/Vol] 0.30 10*3/uL Normal <0.46 [facility] Comment on above: Order Comment: Speci men Type: BLOOD SPECIMENOrdering Facility: [facility] Address: [address] [place] [address] Performed By: #### 5 7021-8 ####[facility]ATORYCLIA [id number] [place] [address] [place] Eosinophils/100 WBC (Bld) 3.6 % Normal [facility] Comment on above: Order Comment: Speci men Type: BLOOD SPECIMENOrdering Facility: [facility] Address: [address] [place] [address] Performed By: #### 5 7021-8 ####[facility]ORATORYCLIA [id number] [address] [place] Erythrocyte distribution width (RBC) [Ratio] 13.5 % Normal 11.5-15.0 [facility] Comment on above: Order Comment: Speci men Type: BLOOD SPECIMENOrdering Facility: [facility] Address: [address] [place] [address] Performed By: #### 5 7021-8 ####[facility]ORATORYCLIA [id number] [address] [place] Hematocrit (Bld) [Volume fraction] 36.1 % Normal 36.0-46.0 [facility] Comment on above: Order Comment: Speci men Type: BLOOD SPECIMENOrdering Facility: [facility] Address: [address] [place] [address] Performed By: #### 5 7021-8 ####[facility]ORATORYCLIA [id number] [address] [place] Hemoglobin (Bld) [Mass/Vol] 11.2 g/dL Low 11.5-15.5 [facility] Comment on above: Order Comment: Speci men Type: BLOOD SPECIMENOrdering Facility: [facility] Address: [address] [place] [address] Performed By: #### 5 7021-8 ####[facility]ATORYCLIA [id number] [address] [place] Immature granulocytes (Bld) [#/Vol] 0.08 10*3/uL Normal <0.10 [facility] Comment on above: Order Comment: Speci men Type: BLOOD SPECIMENOrdering Facility: [facility] Address: [address] [place] [address] Performed By: #### 5 7021-8 ####[facility]ATORYCLIA [id number] [address] Immature granulocytes/100 WBC (Bld) 1.0 % Normal [facility] Comment on above: Order Comment: Speci men Type: BLOOD SPECIMENOrdering Facility: [facility] Address: [address] [place] [address] Performed By: #### 5 7021-8 ####[facility]ORATORYCLIA [id number] [address] [place] Lymphocytes (Bld) [#/Vol] 2.91 10*3/uL Normal 1.00-4.00 [facility] Comment on above: Order Comment: Speci men Type: BLOOD SPECIMENOrdering Facility: [facility] Address: [address] [place] [address] Performed By: #### 5 7021-8 ####[facility]ATORYCLIA [id number] [address] Lymphocytes/100 WBC (Bld) 34.7 % Normal [facility] Comment on above: Order Comment: Speci men Type: BLOOD SPECIMENOrdering Facility: [facility] Address: [address] [place] [address] Performed By: #### 5 7021-8 ####[facility]ORATORYCLIA [id number] [address] [place] MCH (RBC) [Entitic mass] 29.2 pg Normal 26.0-34.0 [facility] Comment on above: Order Comment: Speci men Type: BLOOD SPECIMENOrdering Facility: [facility] Address: [address] [place] [address] Performed By: #### 5 7021-8 ####[facility]ORATORYCLIA [id number] [address] [place] [facility] MCHC (RBC) [Mass/Vol] 31.0 g/dL Normal 30.5-36.0 [facility] Comment on above: Order Comment: Speci men Type: BLOOD SPECIMENOrdering Facility: [facility] Address: [address] [place] [address] Performed By: #### 5 7021-8 ####[facility]ORATORYCLIA [id number] [place] [address] [place] MCV (RBC) [Entitic vol] 94.0 fL Normal 80.0-100.0 [facility] Comment on above: Order Comment: Speci men Type: BLOOD SPECIMENOrdering Facility: [facility] Address: [address] [place] [address] Performed By: #### 5 7021-8 ####[facility]ORATORYCLIA [id number] [place] [address] [place] Monocytes (Bld) [#/Vol] 1.18 10*3/uL High <0.87 [facility] Comment on above: Order Comment: Speci men Type: BLOOD SPECIMENOrdering Facility: [facility] Address: [address] [place] [address] Performed By: #### 5 7021-8 ####[facility]ORATORYCLIA [id number] [address] [place] Monocytes/100 WBC (Bld) 14.1 % Normal [facility] Comment on above: Order Comment: Speci men Type: BLOOD SPECIMENOrdering Facility: [facility] Address: [address] [place] [address] Performed By: #### 5 7021-8 ####[facility]ORATORYCLIA [id number] [place] [address] [place] Neutrophils (Bld) [#/Vol] 3.82 10*3/uL Normal 1.45-7.50 [facility] Comment on above: Order Comment: Speci men Type: BLOOD SPECIMENOrdering Facility: [facility] Address: [address] [place] [address] Performed By: #### 5 7021-8 ####[facility]ORATORYCLIA [id number] [address] [place] Neutrophils/100 WBC (Bld) 45.5 % Normal [facility] Comment on above: Order Comment: Speci men Type: BLOOD SPECIMENOrdering Facility: [facility] Address: [address] [address] Performed By: #### 5 7021-8 ####[facility]ORATORYCLIA [id number] [address] Nucleated RBC (Bld) [#/Vol] 10*3/uL Normal <0.01 [facility] Comment on above: Order Comment: Speci men Type: BLOOD SPECIMENOrdering Facility: [facility] Address: [address] [address] Performed By: #### 5 7021-8 ####[facility]ATORYCLIA [id number] [address] Nucleated RBC/100 WBC (Bld) [Ratio] 0.0 /100 WBC Normal [facility] Comment on above: Order Comment: Speci men Type: BLOOD SPECIMENOrdering Facility: [facility] Address: [address] [place] [address] Performed By: #### 5 7021-8 ####[facility]ORATORYCLIA [id number] [address] Platelet mean volume (Bld) [Entitic vol] 10.4 fL Normal 9.0-12.7 [facility] Comment on above: Order Comment: Speci men Type: BLOOD SPECIMENOrdering Facility: [facility] Address: [address] [place] [address] Performed By: #### 5 7021-8 ####[facility]ATORYCLIA [id number] [address] Platelets (Bld) [#/Vol] 270 10*3/uL Normal 150-400 [facility] Comment on above: Order Comment: Speci men Type: BLOOD SPECIMENOrdering Facility: [facility] Address: [address] [place] [address] Performed By: #### 5 7021-8 ####[facility]ORATORYCLIA [id number] [address] [place] RBC (Bld) [#/Vol] 3.84 10*6/uL Low 3.90-5.20 [facility] Comment on above: Order Comment: Speci men Type: BLOOD SPECIMENOrdering Facility: [facility] Address: [address] [place] [address] Performed By: #### 5 7021-8 ####[facility]ORATORYCLIA [id number] [address] OF [facility] WBC (Bld) [#/Vol] 8.38 10*3/uL Normal 3.70-11.00 [facility] Comment on above: Order Comment: Speci men Type: BLOOD SPECIMENOrdering Facility: [facility] Address: [address] [place] [address] Performed By: #### 5 7021-8 ####[facility]ATORYCLIA [id number] [address] CONSULT PROGon 08-07-2022 CONSULT PROG Normal [facility] CONSULT PROG Normal [facility] Comprehensive metabolic 2000 panelon 08-07-2022 Albumin [Mass/Vol] 3.3 g/dL Low 3.9-4.9 [facility] Comment on above: Order Comment: Speci men Type: BLOOD SPECIMENOrdering Facility: [facility] Address: [address] [place] [address] Performed By: #### 2 4323-8 ####[facility]ORATORYCLIA [id number] [address] STATES OF [facility] ALP [Catalytic activity/Vol] 94 U/L Normal 34-123 [facility] Comment on above: Order Comment: Speci men Type: BLOOD SPECIMENOrdering Facility: [facility] Address: [address] [place] [address] Performed By: #### 2 4323-8 ####[facility]ORATORYCLIA [id number] [address] [place] ALT With P-5'-P [Catalytic activity/Vol] 12 U/L Normal 7-38 [facility] Comment on above: Order Comment: Speci men Type: BLOOD SPECIMENOrdering Facility: [facility] Address: [address] [place] [address] Performed By: #### 2 4323-8 ####[facility]ORATORYCLIA [id number] [address] Anion gap [Moles/Vol] 9 mmol/L Normal 9-18 [facility] Comment on above: Order Comment: Speci men Type: BLOOD SPECIMENOrdering Facility: [facility] Address: [address] [place] [address] Performed By: #### 2 4323-8 ####[facility]ORATORYCLIA [id number] [address] AST With P-5'-P [Catalytic activity/Vol] 20 U/L Normal 13-35 [facility] Comment on above: Order Comment: Speci men Type: BLOOD SPECIMENOrdering Facility: [facility] Address: [address] [place] [address] Performed By: #### 2 4323-8 ####[facility]ORATORYCLIA [id number] [address] Bilirubin [Mass/Vol] 0.2 mg/dL Normal 0.2-1.3 [facility] Comment on above: Order Comment: Speci men Type: BLOOD SPECIMENOrdering Facility: [facility] Address: [address] [place] [address] Performed By: #### 2 4323-8 ####[facility]ORATORYCLIA [id number] [address] STATES OF [facility] Calcium [Mass/Vol] 7.9 mg/dL Low 8.5-10.2 [facility] Comment on above: Order Comment: Speci men Type: BLOOD SPECIMENOrdering Facility: [facility] Address: [address] [place] [address] Performed By: #### 2 4323-8 ####[facility]ATORYCLIA [id number] [address] [place] Chloride [Moles/Vol] 107 mmol/L High 97-105 [facility] Comment on above: Order Comment: Speci men Type: BLOOD SPECIMENOrdering Facility: [facility] Address: [address] [place] [address] Performed By: #### 2 4323-8 ####[facility]ORATORYCLIA [id number] [address] CO2 [Moles/Vol] 25 mmol/L Normal 22-30 [facility] Comment on above: Order Comment: Speci men Type: BLOOD SPECIMENOrdering Facility: [facility] Address: [address] [place] [address] Performed By: #### 2 4323-8 ####[facility]ITALCL[facility] [id number] [address] Creatinine [Mass/Vol] 0.21 mg/dL Low 0.58-0.96 [facility] Comment on above: Order Comment: Speci men Type: BLOOD SPECIMENOrdering Facility: [facility] Address: [address] [place] [address] Performed By: #### 2 4323-8 ####[facility]ORATORYCLIA [id number] [address] ESTIMATED GLOMERULAR FILTRATION RATE 134 mL/min/1.73m??? Normal >=60 [facility] Comment on above: Order Comment: Speci men Type: BLOOD SPECIMENOrdering Facility: [facility] Address: [address] [place] [address] Result Comment: Manasa mated Glomerular Filtration Rate [...] actual GFR. Performed By: #### 2 4323-8 ####[facility]ORATORYCLIA [id number] [place] [address] [place] Glucose [Mass/Vol] 165 mg/dL High 74-99 [facility] Comment on above: Order Comment: Speci men Type: BLOOD SPECIMENOrdering Facility: [facility] Address: [address] [place] [address] Result Comment: The [place] [employer] (ADA) provides guidance for cutoff [...] Standards of Medical Care in Diabetes 2016, [place] [employer]. Diabetes Care. 2016.39(Suppl 1). Performed By: #### 2 4323-8 ####[facility]ORATORYCLIA [id number] [place] [address] [place] Potassium [Moles/Vol] 3.4 mmol/L Low 3.7-5.1 [facility] Comment on above: Order Comment: Speci men Type: BLOOD SPECIMENOrdering Facility: [facility] Address: [address] [place] [address] Performed By: #### 2 4323-8 ####[facility]ATORYCLIA [id number] [place] [address] [place] Protein [Mass/Vol] 6.0 g/dL Low 6.3-8.0 [facility] Comment on above: Order Comment: Speci men Type: BLOOD SPECIMENOrdering Facility: [facility] Address: [address] [place] [address] Performed By: #### 2 4323-8 ####[facility]ORATORYCLIA [id number] [place] [address] [place] Sodium [Moles/Vol] 141 mmol/L Normal 136-144 [facility] Comment on above: Order Comment: Speci men Type: BLOOD SPECIMENOrdering Facility: [facility] Address: [address] [place] [address] Performed By: #### 2 4323-8 ####[facility]ORATORYCLIA [id number] [place] [address] [place] Urea nitrogen [Mass/Vol] 8 mg/dL Normal 7-21 [facility] Comment on above: Order Comment: Speci men Type: BLOOD SPECIMENOrdering Facility: [facility] Address: [address] [place] [address] Performed By: #### 2 4323-8 ####[facility]ORATORYCLIA [id number] [place] [address] [place] MRI BRAIN WO/W IVCONon 08-07 MRI BRAIN WO/W IVCON Normal [facility] NUTRITIONon 08-07-2022 NUTRITION Normal [facility] THERAPY NTon 08-07-2022 THERAPY NT Normal [facility] ALLIED HEALTHon 08-06-2022 ALLIED HEALTH Normal [facility] ALLIED HEALTH Normal [facility] CBC W Auto Differential pane l (Bld)on 08-06-2022 Basophils (Bld) [#/Vol] 0.10 10*3/uL Normal <0.11 [facility] Comment on above: Order Comment: Speci men Type: BLOOD SPECIMENOrdering Facility: [facility] Address: [address] [place] [address] Performed By: #### 5 7021-8 ####[facility]ATORYCLIA [id number] [place] [address] [place] Basophils/100 WBC (Bld) 0.8 % Normal [facility] Comment on above: Order Comment: Speci men Type: BLOOD SPECIMENOrdering Facility: [facility] Address: [address] [place] [address] Performed By: #### 5 7021-8 ####[facility]ATORYCLIA [id number] [place] [address] [place] Differential cell count method Nom (Bld) Auto Normal [facility] Comment on above: Order Comment: Speci men Type: BLOOD SPECIMENOrdering Facility: [facility] Address: [address] [place] [address] Performed By: #### 5 7021-8 ####[facility]ATORYCLIA [id number] [address] Eosinophils (Bld) [#/Vol] 0.31 10*3/uL Normal <0.46 [facility] Comment on above: Order Comment: Speci men Type: BLOOD SPECIMENOrdering Facility: [facility] Address: [address] [place] [address] Performed By: #### 5 7021-8 ####[facility]ATORYCLIA [id number] [address] Eosinophils/100 WBC (Bld) 2.5 % Normal [facility] Comment on above: Order Comment: Speci men Type: BLOOD SPECIMENOrdering Facility: [facility] Address: [address] [place] [address] Performed By: #### 5 7021-8 ####[facility]ORATORYCLIA [id number] [address] Erythrocyte distribution width (RBC) [Ratio] 13.4 % Normal 11.5-15.0 [facility] Comment on above: Order Comment: Speci men Type: BLOOD SPECIMENOrdering Facility: [facility] Address: [address] [place] [address] Performed By: #### 5 7021-8 ####[facility]ORATORYCLIA [id number] [address] Hematocrit (Bld) [Volume fraction] 36.1 % Normal 36.0-46.0 [facility] Comment on above: Order Comment: Speci men Type: BLOOD SPECIMENOrdering Facility: [facility] Address: [address] [place] [address] Performed By: #### 5 7021-8 ####[facility] LABORATORYCLIA [id number] [place] [address] [place] Hemoglobin (Bld) [Mass/Vol] 11.3 g/dL Low 11.5-15.5 [facility] Comment on above: Order Comment: Speci men Type: BLOOD SPECIMENOrdering Facility: [facility] Address: [address] [place] [address] Performed By: #### 5 7021-8 ####[facility]ATORYCLIA [id number] [place] [address] [place] Immature granulocytes (Bld) [#/Vol] 0.08 10*3/uL Normal <0.10 [facility] Comment on above: Order Comment: Speci men Type: BLOOD SPECIMENOrdering Facility: [facility] Address: [address] [place] [address] Performed By: #### 5 7021-8 ####[facility]ORATORYCLIA [id number] [address] [place] Immature granulocytes/100 WBC (Bld) 0.6 % Normal [facility] Comment on above: Order Comment: Speci men Type: BLOOD SPECIMENOrdering Facility: [facility] Address: [address] [place] [address] Performed By: #### 5 7021-8 ####[facility]ORATORYCLIA [id number] [address] [place] Lymphocytes (Bld) [#/Vol] 2.93 10*3/uL Normal 1.00-4.00 [facility] Comment on above: Order Comment: Speci men Type: BLOOD SPECIMENOrdering Facility: [facility] Address: [address] [place] [address] Performed By: #### 5 7021-8 ####[facility]ORATORYCLIA [id number] [address] [place] Lymphocytes/100 WBC (Bld) 23.3 % Normal [facility] Comment on above: Order Comment: Speci men Type: BLOOD SPECIMENOrdering Facility: [facility] Address: [address] [place] [address] Performed By: #### 5 7021-8 ####[facility] LABORATORYCLIA [id number] [address] [place] [facility] MCH (RBC) [Entitic mass] 28.8 pg Normal 26.0-34.0 [facility] Comment on above: Order Comment: Speci men Type: BLOOD SPECIMENOrdering Facility: [facility] Address: [address] [place] [address] Performed By: #### 5 7021-8 ####[facility]ORATORYCLIA [id number] [address] [place] MCHC (RBC) [Mass/Vol] 31.3 g/dL Normal 30.5-36.0 [facility] Comment on above: Order Comment: Speci men Type: BLOOD SPECIMENOrdering Facility: [facility] Address: [address] [place] [address] Performed By: #### 5 7021-8 ####[facility]ORATORYCLIA [id number] [address] MCV (RBC) [Entitic vol] 91.9 fL Normal 80.0-100.0 [facility] Comment on above: Order Comment: Speci men Type: BLOOD SPECIMENOrdering Facility: [facility] Address: [address] [place] [address] Performed By: #### 5 7021-8 ####[facility]ORATORYCLIA [id number] [address] [place] Monocytes (Bld) [#/Vol] 1.08 10*3/uL High <0.87 [facility] Comment on above: Order Comment: Speci men Type: BLOOD SPECIMENOrdering Facility: [facility] Address: [address] [place] [address] Performed By: #### 5 7021-8 ####[facility]ORATORYCLIA [id number] [address] Monocytes/100 WBC (Bld) 8.6 % Normal [facility] Comment on above: Order Comment: Speci men Type: BLOOD SPECIMENOrdering Facility: [facility] Address: [address] [address] Performed By: #### 5 7021-8 ####[facility]ATORYCLIA [id number] [address] [place] Neutrophils (Bld) [#/Vol] 8.07 10*3/uL High 1.45-7.50 [facility] Comment on above: Order Comment: Speci men Type: BLOOD SPECIMENOrdering Facility: [facility] Address: [address] [address] Performed By: #### 5 7021-8 ####[facility]ORYCLIA [id number] [address] Neutrophils/100 WBC (Bld) 64.2 % Normal [facility] Comment on above: Order Comment: Speci men Type: BLOOD SPECIMENOrdering Facility: [facility] Address: [address] [place] [address] Performed By: #### 5 7021-8 ####[facility] LABORATORYCLIA [id number] [place] Nucleated RBC (Bld) [#/Vol] 10*3/uL Normal <0.01 [facility] Comment on above: Order Comment: Speci men Type: BLOOD SPECIMENOrdering Facility: [facility] Address: [address] [place] [address] Performed By: #### 5 7021-8 ####[facility]ORATORYCLIA [id number] [address] Nucleated RBC/100 WBC (Bld) [Ratio] 0.0 /100 WBC Normal [facility] Comment on above: Order Comment: Speci men Type: BLOOD SPECIMENOrdering Facility: [facility] Address: [address] [place] [address] Performed By: #### 5 7021-8 ####[facility]ATORYCLIA [id number] [address] [place] Platelet mean volume (Bld) [Entitic vol] 10.1 fL Normal 9.0-12.7 [facility] Comment on above: Order Comment: Speci men Type: BLOOD SPECIMENOrdering Facility: [facility] Address: [address] [place] [address] Performed By: #### 5 7021-8 ####[facility] LABORATORYCLIA [id number] [address] [place] Platelets (Bld) [#/Vol] 294 10*3/uL Normal 150-400 [facility] Comment on above: Order Comment: Speci men Type: BLOOD SPECIMENOrdering Facility: [facility] Address: [address] [place] [address] Performed By: #### 5 7021-8 ####[facility] LABORATORYCLIA [id number] [place] [address] [place] RBC (Bld) [#/Vol] 3.93 10*6/uL Normal 3.90-5.20 [facility] Comment on above: Order Comment: Speci men Type: BLOOD SPECIMENOrdering Facility: [facility] Address: [address] [place] [address] Performed By: #### 5 7021-8 ####[facility] LABORATORYCLIA [id number] [address] [place] WBC (Bld) [#/Vol] 12.57 10*3/uL High 3.70-11.00 [facility] Comment on above: Order Comment: Speci men Type: BLOOD SPECIMENOrdering Facility: [facility] Address: [address] [place] [address] Performed By: #### 5 7021-8 ####[facility] LABORATORYCLIA [id number] [address] [place] CONSULTon 08-06-2022 CONSULT Normal [facility] CONSULT PROGon 08-06-2022 CONSULT PROG Normal [facility] Comprehensive metabolic 2000 panelon 08-06-2022 Albumin [Mass/Vol] 3.9 g/dL Normal 3.9-4.9 [facility] Comment on above: Order Comment: Speci men Type: BLOOD SPECIMENOrdering Facility: [facility] Address: [address] [place] [address] Performed By: #### 2 4323-8 ####[facility]ORATORYCLIA [id number] [address] [place] ALP [Catalytic activity/Vol] 93 U/L Normal 34-123 [facility] Comment on above: Order Comment: Speci men Type: BLOOD SPECIMENOrdering Facility: [facility] Address: [address] [place] [address] Performed By: #### 2 4323-8 ####[facility] LABORATORYCLIA [id number] [address] [place] ALT With P-5'-P [Catalytic activity/Vol] 14 U/L Normal 7-38 [facility] Comment on above: Order Comment: Speci men Type: BLOOD SPECIMENOrdering Facility: [facility] Address: [address] [place] [address] Performed By: #### 2 4323-8 ####[facility]ORATORYCLIA [id number] [address] [place] [facility] Anion gap [Moles/Vol] 8 mmol/L Low 9-18 [facility] Comment on above: Order Comment: Speci men Type: BLOOD SPECIMENOrdering Facility: [facility] Address: [address] [place] [address] Performed By: #### 2 4323-8 ####[facility] LABORATORYCLIA [id number] [address] [place] AST With P-5'-P [Catalytic activity/Vol] 19 U/L Normal 13-35 [facility] Comment on above: Order Comment: Speci men Type: BLOOD SPECIMENOrdering Facility: [facility] Address: [address] [place] [address] Performed By: #### 2 4323-8 ####[facility] LABORATORYCLIA [id number] [place] [address] [place] Bilirubin [Mass/Vol] 0.4 mg/dL Normal 0.2-1.3 [facility] Comment on above: Order Comment: Speci men Type: BLOOD SPECIMENOrdering Facility: [facility] Address: [address] [place] [address] Performed By: #### 2 4323-8 ####[facility]ORATORYCLIA [id number] [place] [address] [place] Calcium [Mass/Vol] 9.2 mg/dL Normal 8.5-10.2 [facility] Comment on above: Order Comment: Speci men Type: BLOOD SPECIMENOrdering Facility: [facility] Address: [address] [place] [address] Performed By: #### 2 4323-8 ####[facility]ATORYCLIA [id number] [address] [place] Chloride [Moles/Vol] 104 mmol/L Normal 97-105 [facility] Comment on above: Order Comment: Speci men Type: BLOOD SPECIMENOrdering Facility: [facility] Address: [address] [place] [address] Performed By: #### 2 4323-8 ####[facility]ATORYCLIA [id number] [address] [place] CO2 [Moles/Vol] 29 mmol/L Normal 22-30 [facility] Comment on above: Order Comment: Speci men Type: BLOOD SPECIMENOrdering Facility: [facility] Address: [address] [place] [address] Performed By: #### 2 4323-8 ####[facility]ORATORYCLIA [id number] [place] [address] [place] Creatinine [Mass/Vol] 0.57 mg/dL Low 0.58-0.96 [facility] Comment on above: Order Comment: Speci men Type: BLOOD SPECIMENOrdering Facility: [facility] Address: [address] [place] [address] Performed By: #### 2 4323-8 ####[facility]ORATORYCLIA [id number] [place] [address] [place] ESTIMATED GLOMERULAR FILTRATION RATE 105 mL/min/1.73m??? Normal >=60 [facility] Comment on above: Order Comment: Tawanda mosley Type: BLOOD SPECIMENOrdering Facility: [facility] Address: [address] [place] [address] Result Comment: Manasa mated Glomerular Filtration Rate [...] actual GFR. Performed By: #### 2 4323-8 ####[facility] SERVICESIA [id number] [place] [address] [place] Glucose [Mass/Vol] 129 mg/dL High 74-99 [facility] Comment on above: Order Comment: Tawanda mosley Type: BLOOD SPECIMENOrdering Facility: [facility] Address: [address] [place] [address] Result Comment: The [place] [employer] (ADA) provides guidance for cutoff [...] Standards of Medical Care in Diabetes 2016, [place] [employer]. Diabetes Care. 2016.39(Suppl 1). Performed By: #### 2 4323-8 ####[facility] LABORATORYIA [id number] [place] [address] [place] Potassium [Moles/Vol] 4.1 mmol/L Normal 3.7-5.1 [facility] Comment on above: Order Comment: Speci men Type: BLOOD SPECIMENOrdering Facility: [facility] Address: [address] [place] [address] Performed By: #### 2 4323-8 ####[facility]ATORYCLIA [id number] [address] STATES OF [facility] Protein [Mass/Vol] 7.2 g/dL Normal 6.3-8.0 [facility] Comment on above: Order Comment: Speci men Type: BLOOD SPECIMENOrdering Facility: [facility] Address: [address] [place] [address] Performed By: #### 2 4323-8 ####[facility]ATORYCLIA [id number] [address] [place] Sodium [Moles/Vol] 141 mmol/L Normal 136-144 [facility] Comment on above: Order Comment: Speci men Type: BLOOD SPECIMENOrdering Facility: [facility] Address: [address] [place] [address] Performed By: #### 2 4323-8 ####[facility]ORATORYCLIA [id number] [address] [place] Urea nitrogen [Mass/Vol] 10 mg/dL Normal 7-21 [facility] Comment on above: Order Comment: Speci men Type: BLOOD SPECIMENOrdering Facility: [facility] Address: [address] [place] [address] Performed By: #### 2 4323-8 ####[facility]ATORYCLIA [id number] [address] [place] ECG COMPLETEon 08-06-2022 ECG COMPLETE Normal [facility] NURSING PROGon 08-06-2022 NURSING PROG Normal [facility] NURSING PROG Normal [facility] XR CHEST 1V FRONTALon 2022 XR CHEST 1V FRONTAL Normal [facility] ALLIED HEALTHon 08-05-2022 ALLIED HEALTH Normal [facility] ALLIED HEALTH Normal [facility] ALLIED HEALTH Normal [facility] ARTERIAL BLOOD GASESon 08-05 Base excess Calc (Bld) [Moles/Vol] 3 mmol/L High 0-2 [facility] Comment on above: Order Comment: Speci men Type: ARTERIAL BLOOD SPECIMENOrdering Facility: [facility] Address: [address] [place] [address] Performed By: #### A LLBG ####[facility]ORATORYCLIA [id number] [address] Body temperature 98.6 [degF] Normal [facility] Comment on above: Order Comment: Speci men Type: ARTERIAL BLOOD SPECIMENOrdering Facility: [facility] Address: [address] [place] [address] Performed By: #### A LLBG ####[facility]ORATORYCLIA [id number] [address] Calcium.ionized (BldV) [Mass/Vol] 1.25 mmol/L Normal 1.08-1.30 [facility] Comment on above: Order Comment: Speci men Type: ARTERIAL BLOOD SPECIMENOrdering Facility: [facility] Address: [address] [place] [address] Performed By: #### A LLBG ####[facility]ORATORYCLIA [id number] [address] Calcium.ionized adjusted to pH 7.4 (BldA) [Moles/Vol] 1.24 mmol/L Normal 1.08-1.30 [facility] Comment on above: Order Comment: Speci men Type: ARTERIAL BLOOD SPECIMENOrdering Facility: [facility] Address: [address] [place] [address] Performed By: #### A LLBG ####[facility]ORATORYCLIA [id number] [address] Carboxyhemoglobin (BldA) [Mass fraction] 1.9 % Normal 0.0-2.0 [facility] Comment on above: Order Comment: Speci men Type: ARTERIAL BLOOD SPECIMENOrdering Facility: [facility] Address: [address] [place] [address] Result Comment: Carb oxyhemoglobin Reference Range for Smokers: 2.0-8.0% Performed By: #### A LLBG ####[facility]ATORYCLIA [id number] [address] [place] Chloride [Moles/Vol] 104 mmol/L Normal 102-109 [facility] Comment on above: Order Comment: Speci men Type: ARTERIAL BLOOD SPECIMENOrdering Facility: [facility] Address: [address] [place] [address] Performed By: #### A LLBG ####[facility]ORYCLIA [id number] [address] [place] CO2 (Bld) [Partial pressure] 49 mm Hg High 36-46 [facility] Comment on above: Order Comment: Speci men Type: ARTERIAL BLOOD SPECIMENOrdering Facility: [facility] Address: [address] [place] [address] Performed By: #### A LLBG ####[facility]ORATORYCLIA [id number] [address] [place] CO2 [Moles/Vol] 26 mmol/L Normal 22-28 [facility] Comment on above: Order Comment: Speci men Type: ARTERIAL BLOOD SPECIMENOrdering Facility: [facility] Address: [address] [place] [address] Performed By: #### A LLBG ####[facility]ORATORYCLIA [id number] [address] [place] Glucose [Mass/Vol] 121 mg/dL High 60-105 [facility] Comment on above: Order Comment: Speci men Type: ARTERIAL BLOOD SPECIMENOrdering Facility: [facility] Address: [address] [place] [address] Performed By: #### A LLBG ####[facility]ORATORYCLIA [id number] [address] [place] HCO3 (Bld) [Moles/Vol] 28 mmol/L High 22-26 [facility] Comment on above: Order Comment: Speci men Type: ARTERIAL BLOOD SPECIMENOrdering Facility: [facility] Address: [address] [address] Performed By: #### A LLBG ####[facility]ATORYCLIA [id number] [address] OF [facility] Hematocrit (Bld) [Volume fraction] 36.9 % Normal 36.0-46.0 [facility] Comment on above: Order Comment: Speci men Type: ARTERIAL BLOOD SPECIMENOrdering Facility: [facility] Address: [address] [place] [address] Performed By: #### A LLBG ####[facility]ORATORYCLIA [id number] [address] [place] Hemoglobin (Bld) [Mass/Vol] 12.0 g/dL Normal 11.5-15.5 [facility] Comment on above: Order Comment: Speci men Type: ARTERIAL BLOOD SPECIMENOrdering Facility: [facility] Address: [address] [place] [address] Performed By: #### A LLBG ####[facility]ORATORYCLIA [id number] [address] [place] Lactate [Moles/Vol] 1.0 mmol/L Normal 0.5-2.2 [facility] Comment on above: Order Comment: Speci men Type: ARTERIAL BLOOD SPECIMENOrdering Facility: [facility] Address: [address] [place] [address] Performed By: #### A LLBG ####[facility]ORATORYCLIA [id number] [address] [place] Methemoglobin (Bld) [Mass fraction] 1.1 % Normal 0.0-1.5 [facility] Comment on above: Order Comment: Speci men Type: ARTERIAL BLOOD SPECIMENOrdering Facility: [facility] Address: [address] [place] [address] Performed By: #### A LLBG ####[facility]ORATORYCLIA [id number] [address] [place] O2 THERAPY RA=Room Air Normal [facility] Comment on above: Order Comment: Speci men Type: ARTERIAL BLOOD SPECIMENOrdering Facility: [facility] Address: [address] [place] [address] Performed By: #### A LLBG ####[facility]ORATORYCLIA [id number] [place] [address] [place] Oxygen (Bld) [Partial pressure] 75 mm Hg Low 85-95 [facility] Comment on above: Order Comment: Speci men Type: ARTERIAL BLOOD SPECIMENOrdering Facility: [facility] Address: [address] [place] [address] Performed By: #### A LLBG ####[facility]ORATORYCLIA [id number] [address] [place] Oxyhemoglobin (BldA) [Mass fraction] 92 % Low 95-98 [facility] Comment on above: Order Comment: Speci men Type: ARTERIAL BLOOD SPECIMENOrdering Facility: [facility] Address: [address] [place] [address] Performed By: #### A LLBG ####[facility]ORATORYCLIA [id number] [place] [address] [place] pH (Bld) 7.38 [pH] Normal 7.35-7.45 [facility] Comment on above: Order Comment: Speci men Type: ARTERIAL BLOOD SPECIMENOrdering Facility: [facility] Address: [address] [place] [address] Performed By: #### A LLBG ####[facility]ORATORYCLIA [id number] [place] [address] [place] Potassium [Moles/Vol] 3.8 mmol/L Normal 3.5-5.0 [facility] Comment on above: Order Comment: Speci men Type: ARTERIAL BLOOD SPECIMENOrdering Facility: [facility] Address: [address] [place] [address] Performed By: #### A LLBG ####[facility]ORATORYCLIA [id number] [place] [address] [place] Sodium [Moles/Vol] 141 mmol/L Normal 136-144 [facility] Comment on above: Order Comment: Speci men Type: ARTERIAL BLOOD SPECIMENOrdering Facility: [facility] Address: [address] [place] [address] Performed By: #### A LLBG ####[facility]ORYCLIA [id number] [place] [address] [place] Basic metabolic 2000 panelon 08-05-2022 Anion gap [Moles/Vol] 10 mmol/L Normal 9-18 [facility] Comment on above: Order Comment: Speci men Type: BLOOD SPECIMENOrdering Facility: [facility] Address: [address] [place] [address] Performed By: #### 2 4321-2 ####[facility]ORATORYCLIA [id number] [place] [address] [place] Calcium [Mass/Vol] 9.1 mg/dL Normal 8.5-10.2 [facility] Comment on above: Order Comment: Speci men Type: BLOOD SPECIMENOrdering Facility: [facility] Address: [address] [place] [address] Performed By: #### 2 4321-2 ####[facility]ORATORYCLIA [id number] [place] [address] [place] Chloride [Moles/Vol] 103 mmol/L Normal 97-105 [facility] Comment on above: Order Comment: Speci men Type: BLOOD SPECIMENOrdering Facility: [facility] Address: [address] [place] [address] Performed By: #### 2 4321-2 ####[facility]ORYCLIA [id number] [place] [address] [place] CO2 [Moles/Vol] 26 mmol/L Normal 22-30 [facility] Comment on above: Order Comment: Speci men Type: BLOOD SPECIMENOrdering Facility: [facility] Address: [address] [place] [address] Performed By: #### 2 4321-2 ####[facility]ORYCLIA [id number] [address] STATES OF [facility] Creatinine [Mass/Vol] 0.55 mg/dL Low 0.58-0.96 [facility] Comment on above: Order Comment: Tawanda mosley Type: BLOOD SPECIMENOrdering Facility: [facility] Address: [address] [address] Performed By: #### 2 4321-2 ####[facility]ORATORYCLIA [id number] [address] ESTIMATED GLOMERULAR FILTRATION RATE 106 mL/min/1.73m??? Normal >=60 [facility] Comment on above: Order Comment: Tawanda mosley Type: BLOOD SPECIMENOrdering Facility: [facility] Address: [address] [place] [address] Result Comment: Manasa mated Glomerular Filtration Rate [...] actual GFR. Performed By: #### 2 4321-2 ####[facility]ORATORYCLIA [id number] [address] [place] Glucose [Mass/Vol] 143 mg/dL High 74-99 [facility] Comment on above: Order Comment: Tawanda mosley Type: BLOOD SPECIMENOrdering Facility: [facility] Address: [address] [place] [address] Result Comment: The [place] [employer] (ADA) provides guidance for cutoff [...] Standards of Medical Care in Diabetes 2016, [place] [employer]. Diabetes Care. 2016.39(Suppl 1). Performed By: #### 2 4321-2 ####[facility]ORATORYCLIA [id number] [address] STATES OF [facility] Potassium [Moles/Vol] 4.1 mmol/L Normal 3.7-5.1 [facility] Comment on above: Order Comment: Speci men Type: BLOOD SPECIMENOrdering Facility: [facility] Address: [address] [place] [address] Performed By: #### 2 4321-2 ####[facility]ORATORYCLIA [id number] [address] Sodium [Moles/Vol] 139 mmol/L Normal 136-144 [facility] Comment on above: Order Comment: Speci men Type: BLOOD SPECIMENOrdering Facility: [facility] Address: [address] [place] [address] Performed By: #### 2 4321-2 ####[facility]ORATORYCLIA [id number] [address] [place] [facility] Urea nitrogen [Mass/Vol] 10 mg/dL Normal 7-21 [facility] Comment on above: Order Comment: Speci men Type: BLOOD SPECIMENOrdering Facility: [facility] Address: [address] [place] [address] Performed By: #### 2 4321-2 ####[facility]ORATORYCLIA [id number] [address] [place] CASE MANAGEMon 08-05-2022 CASE MANAGEM Normal [facility] CBC panel Auto (Bld)on 08-05 Erythrocyte distribution width (RBC) [Ratio] 13.4 % Normal 11.5-15.0 [facility] Comment on above: Order Comment: Speci men Type: BLOOD SPECIMENOrdering Facility: [facility] Address: [address] [place] [address] Performed By: #### 5 8410-2 ####[facility]ORATORYCLIA [id number] [address] Hematocrit (Bld) [Volume fraction] 37.8 % Normal 36.0-46.0 [facility] Comment on above: Order Comment: Speci men Type: BLOOD SPECIMENOrdering Facility: [facility] Address: [address] [place] [address] Performed By: #### 5 8410-2 ####[facility]ORATORYCLIA [id number] [address] [place] Hemoglobin (Bld) [Mass/Vol] 11.9 g/dL Normal 11.5-15.5 [facility] Comment on above: Order Comment: Speci men Type: BLOOD SPECIMENOrdering Facility: [facility] Address: [address] [place] [address] Performed By: #### 5 8410-2 ####[facility] LABORATORYCLIA [id number] [address] [place] [facility] MCH (RBC) [Entitic mass] 29.1 pg Normal 26.0-34.0 [facility] Comment on above: Order Comment: Speci men Type: BLOOD SPECIMENOrdering Facility: [facility] Address: [address] [place] [address] Performed By: #### 5 8410-2 ####[facility]ORATORYCLIA [id number] [address] [place] MCHC (RBC) [Mass/Vol] 31.5 g/dL Normal 30.5-36.0 [facility] Comment on above: Order Comment: Speci men Type: BLOOD SPECIMENOrdering Facility: [facility] Address: [address] [place] [address] Performed By: #### 5 8410-2 ####[facility] LABORATORYCLIA [id number] [address] MCV (RBC) [Entitic vol] 92.4 fL Normal 80.0-100.0 [facility] Comment on above: Order Comment: Speci men Type: BLOOD SPECIMENOrdering Facility: [facility] Address: [address] [address] Performed By: #### 5 8410-2 ####[facility] LABORATORYCLIA [id number] [address] [place] Nucleated RBC (Bld) [#/Vol] 0.02 10*3/uL High <0.01 [facility] Comment on above: Order Comment: Speci men Type: BLOOD SPECIMENOrdering Facility: [facility] Address: [address] [address] Performed By: #### 5 8410-2 ####[facility] LABORATORYCLIA [id number] [address] [place] Platelet mean volume (Bld) [Entitic vol] 10.1 fL Normal 9.0-12.7 [facility] Comment on above: Order Comment: Speci men Type: BLOOD SPECIMENOrdering Facility: [facility] Address: [address] [place] [address] Performed By: #### 5 8410-2 ####[facility] LABORATORYCLIA [id number] [address] [place] Platelets (Bld) [#/Vol] 309 10*3/uL Normal 150-400 [facility] Comment on above: Order Comment: Speci men Type: BLOOD SPECIMENOrdering Facility: [facility] Address: [address] [place] [address] Performed By: #### 5 8410-2 ####[facility] LABORATORYCLIA [id number] [address] [place] RBC (Bld) [#/Vol] 4.09 10*6/uL Normal 3.90-5.20 [facility] Comment on above: Order Comment: Speci men Type: BLOOD SPECIMENOrdering Facility: [facility] Address: [address] [place] [address] Performed By: #### 5 8410-2 ####[facility] LABORATORYCLIA [id number] [address] [place] WBC (Bld) [#/Vol] 13.91 10*3/uL High 3.70-11.00 [facility] Comment on above: Order Comment: Speci men Type: BLOOD SPECIMENOrdering Facility: [facility] Address: [address] [place] [address] Performed By: #### 5 8410-2 ####[facility] LABORATORYCLIA [id number] [address] OF [facility] CONSULT PROGon 08-05-2022 CONSULT PROG Normal [facility] CONSULT PROG Normal [facility] CT BRAIN WO IVCONon 08-05-19 CT BRAIN WO IVCON Normal [facility] Comprehensive metabolic 2000 panelon 08-05-2022 Albumin [Mass/Vol] 4.2 g/dL Normal 3.9-4.9 [facility] Comment on above: Order Comment: Speci men Type: BLOOD SPECIMENOrdering Facility: [facility] Address: [address] [place] [address] Performed By: #### 2 4328, ####[facility] LABORATORYCLIA [id number] [address] [place] ALP [Catalytic activity/Vol] 104 U/L Normal 34-123 [facility] Comment on above: Order Comment: Speci men Type: BLOOD SPECIMENOrdering Facility: [facility] Address: [address] [place] [address] Performed By: #### 2 432-8, ####[facility] LABORATORYCLIA [id number] [address] [address] [place] With P-5'-P [Catalytic activity/Vol] 15 U/L Normal 7-38 [facility] Comment on above: Order Comment: Speci men Type: BLOOD SPECIMENOrdering Facility: [facility] Address: [address] [place] [address] Performed By: #### 2 4323-8, ####[facility] LABORATORYCLIA [id number] [address] [place] Anion gap [Moles/Vol] 10 mmol/L Normal 9-18 [facility] Comment on above: Order Comment: Speci men Type: BLOOD SPECIMENOrdering Facility: [facility] Address: [address] [place] [address] Performed By: #### 2 8, ####[facility] LABORATORYCLIA [id number] [place] [address] [place] AST With P-5'-P [Catalytic activity/Vol] 20 U/L Normal 13-35 [facility] Comment on above: Order Comment: Speci men Type: BLOOD SPECIMENOrdering Facility: [facility] Address: [address] [place] [address] Performed By: #### 2 4323-02, ####[facility] LABORATORYCLIA [id number] [place] [address] [place] Bilirubin [Mass/Vol] 0.3 mg/dL Normal 0.2-1.3 [facility] Comment on above: Order Comment: Speci men Type: BLOOD SPECIMENOrdering Facility: [facility] Address: [address] [place] [address] Performed By: #### 2 4323-02, ####[facility]ORATORYCLIA [id number] [place] [address] [place] Calcium [Mass/Vol] 9.4 mg/dL Normal 8.5-10.2 [facility] Comment on above: Order Comment: Speci men Type: BLOOD SPECIMENOrdering Facility: [facility] Address: [address] [address] Performed By: #### 2 4323-02, ####[facility]ORATORYCLIA [id number] [place] [address] [place] Chloride [Moles/Vol] 102 mmol/L Normal 97-105 [facility] Comment on above: Order Comment: Speci men Type: BLOOD SPECIMENOrdering Facility: [facility] Address: [address] [place] [address] Performed By: #### 2 4323-8, ####[facility] LABORATORYCLIA [id number] [address] STATES OF [facility] CO2 [Moles/Vol] 28 mmol/L Normal 22-30 [facility] Comment on above: Order Comment: Speci men Type: BLOOD SPECIMENOrdering Facility: [facility] Address: [address] [place] [address] Performed By: #### 2 43209-18, ####[facility]ORATORYCLIA [id number] [address] [place] Creatinine [Mass/Vol] 0.57 mg/dL Low 0.58-0.96 [facility] Comment on above: Order Comment: Speci men Type: BLOOD SPECIMENOrdering Facility: [facility] Address: [address] [place] [address] Performed By: #### 2 43209-18, ####[facility]ITALCLIA [id number] [address] ESTIMATED GLOMERULAR FILTRATION RATE 105 mL/min/1.73m??? Normal >=60 [facility] Comment on above: Order Comment: Speci men Type: BLOOD SPECIMENOrdering Facility: [facility] Address: [address] [place] [address] Result Comment: Manasa mated Glomerular Filtration Rate [...] actual GFR. Performed By: #### 2 4323-8, ####[facility]ORATORYCLIA [id number] [address] [place] Glucose [Mass/Vol] 121 mg/dL High 74-99 [facility] Comment on above: Order Comment: Speci men Type: BLOOD SPECIMENOrdering Facility: [facility] Address: [address] [address] Result Comment: The [place] Diabetes Association (ADA) provides guidance for cutoff [...] Standards of Medical Care in Diabetes 2016, [place] [employer]. Diabetes Care. 2016.39(Suppl 1). Performed By: #### 2 4322-, ####[facility]ORATORYCLIA [id number] [place] [address] [place] Potassium [Moles/Vol] 4.1 mmol/L Normal 3.7-5.1 [facility] Comment on above: Order Comment: Speci men Type: BLOOD SPECIMENOrdering Facility: [facility] Address: [address] [place] [address] Performed By: #### 2 4323-02, ####[facility]ORATORYCLIA [id number] [place] [address] [place] Protein [Mass/Vol] 7.5 g/dL Normal 6.3-8.0 [facility] Comment on above: Order Comment: Speci men Type: BLOOD SPECIMENOrdering Facility: [facility] Address: [address] [address] Performed By: #### 2 4323-02, ####[facility]ORATORYCLIA [id number] [place] [address] [place] Sodium [Moles/Vol] 140 mmol/L Normal 136-144 [facility] Comment on above: Order Comment: Speci men Type: BLOOD SPECIMENOrdering Facility: [facility] Address: [address] [address] Performed By: #### 2 4323-8, ####[facility]ORATORYCLIA [id number] [address] [place] Urea nitrogen [Mass/Vol] 10 mg/dL Normal 7- [facility] Comment on above: Order Comment: Speci men Type: BLOOD SPECIMENOrdering Facility: [facility] Address: [address] [place], [place] [address] Performed By: #### 2 4323-8, ####[facility]ORATORYCLIA [id number] [address] [place] Magnesium SerPl-mCncon 08-05 Magnesium [Mass/Vol] 2.2 mg/dL Normal 1.7-2.3 [facility] Comment on above: Order Comment: Speci men Type: BLOOD SPECIMENOrdering Facility: [facility] Address: [address] [place] [address] Performed By: #### 2 43238, ####[facility]ORATORYCLIA [id number] [address] [place] NURSING PROGon 08-05-2022 NURSING PROG Normal [facility] NURSING PROG Normal [facility] THERAPY NTon 08-05-2022 THERAPY NT Normal [facility] XR ABDOMEN 1V SUPINEon 08-05 XR ABDOMEN 1V SUPINE Normal [facility] XR CHEST 1V FRONTALon 2022 XR CHEST 1V FRONTAL Normal [facility] ALLIED HEALTHon 08-02-2022 ALLIED HEALTH Normal [facility] CASE MANAGEMon 08-02-2022 CASE MANAGEM Normal [facility] CONSULT PROGon 08-02-2022 CONSULT PROG Normal [facility] THERAPY NTon 08-02-2022 THERAPY NT Normal [facility] THERAPY NT Normal [facility] CBC W Auto Differential pane l (Bld)on 08-01-2022 Basophils (Bld) [#/Vol] 0.07 10*3/uL Normal <0.11 [facility] Comment on above: Order Comment: Speci men Type: BLOOD SPECIMENOrdering Facility: [facility] Address: [address] [place] [address] Performed By: #### 5 7021-8 ####[facility]ATORYCLIA [id number] [address] [place] [facility] Basophils/100 WBC (Bld) 0.7 % Normal [facility] Comment on above: Order Comment: Speci men Type: BLOOD SPECIMENOrdering Facility: [facility] Address: [address] [place] [address] Performed By: #### 5 7021-8 ####[facility]ORATORYCLIA [id number] [address] Differential cell count method Nom (Bld) Auto Normal [facility] Comment on above: Order Comment: Speci men Type: BLOOD SPECIMENOrdering Facility: [facility] Address: [address] [place] [address] Performed By: #### 5 7021-8 ####[facility]ORYCLIA [id number] [place] [address] [place] Eosinophils (Bld) [#/Vol] 0.46 10*3/uL High <0.46 [facility] Comment on above: Order Comment: Speci men Type: BLOOD SPECIMENOrdering Facility: [facility] Address: [address] [place] [address] Performed By: #### 5 7021-8 ####[facility]ORYCLIA [id number] [address] [place] Eosinophils/100 WBC (Bld) 4.5 % Normal [facility] Comment on above: Order Comment: Speci men Type: BLOOD SPECIMENOrdering Facility: [facility] Address: [address] [place] [address] Performed By: #### 5 7021-8 ####[facility]ORYCLIA [id number] [address] [place] Erythrocyte distribution width (RBC) [Ratio] 13.3 % Normal 11.5-15.0 [facility] Comment on above: Order Comment: Speci men Type: BLOOD SPECIMENOrdering Facility: [facility] Address: [address] [place] [address] Performed By: #### 5 7021-8 ####[facility]ORATORYCLIA [id number] [address] [place] Hematocrit (Bld) [Volume fraction] 31.2 % Low 36.0-46.0 [facility] Comment on above: Order Comment: Speci men Type: BLOOD SPECIMENOrdering Facility: [facility] Address: [address] [place] [address] Performed By: #### 5 7021-8 ####[facility]ORATORYCLIA [id number] [address] [place] Hemoglobin (Bld) [Mass/Vol] 9.7 g/dL Low 11.5-15.5 [facility] Comment on above: Order Comment: Speci men Type: BLOOD SPECIMENOrdering Facility: [facility] Address: [address] [place] [address] Performed By: #### 5 7021-8 ####[facility]ORATORYCLIA [id number] [address] [place] Immature granulocytes (Bld) [#/Vol] 0.10 10*3/uL High <0.10 [facility] Comment on above: Order Comment: Speci men Type: BLOOD SPECIMENOrdering Facility: [facility] Address: [address] [place] [address] Performed By: #### 5 7021-8 ####[facility]ORATORYCLIA [id number] [address] [place] Immature granulocytes/100 WBC (Bld) 1.0 % Normal [facility] Comment on above: Order Comment: Speci men Type: BLOOD SPECIMENOrdering Facility: [facility] Address: [address] [place] [address] Performed By: #### 5 7021-8 ####[facility]ATORYCLIA [id number] [address] OF [facility] Lymphocytes (Bld) [#/Vol] 2.84 10*3/uL Normal 1.00-4.00 [facility] Comment on above: Order Comment: Speci men Type: BLOOD SPECIMENOrdering Facility: [facility] Address: [address] [place] [address] Performed By: #### 5 7021-8 ####[facility]ORATORYCLIA [id number] [address] Lymphocytes/100 WBC (Bld) 27.5 % Normal [facility] Comment on above: Order Comment: Speci men Type: BLOOD SPECIMENOrdering Facility: [facility] Address: [address] [place] [address] Performed By: #### 5 7021-8 ####[facility]ORATORYCLIA [id number] [address] [place] MCH (RBC) [Entitic mass] 29.0 pg Normal 26.0-34.0 [facility] Comment on above: Order Comment: Speci men Type: BLOOD SPECIMENOrdering Facility: [facility] Address: [address] [place] [address] Performed By: #### 5 7021-8 ####[facility]ORATORYCLIA [id number] [address] [place] MCHC (RBC) [Mass/Vol] 31.1 g/dL Normal 30.5-36.0 [facility] Comment on above: Order Comment: Speci men Type: BLOOD SPECIMENOrdering Facility: [facility] Address: [address] [place] [address] Performed By: #### 5 7021-8 ####[facility]ORATORYCLIA [id number] [address] [place] [facility] MCV (RBC) [Entitic vol] 93.4 fL Normal 80.0-100.0 [facility] Comment on above: Order Comment: Speci men Type: BLOOD SPECIMENOrdering Facility: [facility] Address: [address] [place], [place] [address] Performed By: #### 5 7021-8 ####[facility] LABORATORYCLIA [id number] [address] [place] Monocytes (Bld) [#/Vol] 0.81 10*3/uL Normal <0.87 [facility] Comment on above: Order Comment: Speci men Type: BLOOD SPECIMENOrdering Facility: [facility] Address: [address] [place] [address] Performed By: #### 5 7021-8 ####[facility]ORATORYCLIA [id number] [address] [place] Monocytes/100 WBC (Bld) 7.8 % Normal [facility] Comment on above: Order Comment: Speci men Type: BLOOD SPECIMENOrdering Facility: [facility] Address: [address] [place] [address] Performed By: #### 5 7021-8 ####[facility]ORATORYCLIA [id number] [address] [place] Neutrophils (Bld) [#/Vol] 6.04 10*3/uL Normal 1.45-7.50 [facility] Comment on above: Order Comment: Speci men Type: BLOOD SPECIMENOrdering Facility: [facility] Address: [address] [place] [address] Performed By: #### 5 7021-8 ####[facility]ORYCLIA [id number] [address] [place] Neutrophils/100 WBC (Bld) 58.5 % Normal [facility] Comment on above: Order Comment: Speci men Type: BLOOD SPECIMENOrdering Facility: [facility] Address: [address] [place] [address] Performed By: #### 5 7021-8 ####[facility]ORATORYCLIA [id number] [place] [address] [place] Nucleated RBC (Bld) [#/Vol] 10*3/uL Normal <0.01 [facility] Comment on above: Order Comment: Speci men Type: BLOOD SPECIMENOrdering Facility: [facility] Address: [address] [place] [address] Performed By: #### 5 7021-8 ####[facility]ATORYCLIA [id number] [address] [place] Nucleated RBC/100 WBC (Bld) [Ratio] 0.0 /100 WBC Normal [facility] Comment on above: Order Comment: Speci men Type: BLOOD SPECIMENOrdering Facility: [facility] Address: [address] [address] Performed By: #### 5 7021-8 ####[facility]ORATORYCLIA [id number] [place] [address] [place] Platelet mean volume (Bld) [Entitic vol] 10.1 fL Normal 9.0-12.7 [facility] Comment on above: Order Comment: Speci men Type: BLOOD SPECIMENOrdering Facility: [facility] Address: [address] [address] Performed By: #### 5 7021-8 ####[facility]ATORYCLIA [id number] [place] [address] [place] Platelets (Bld) [#/Vol] 265 10*3/uL Normal 150-400 [facility] Comment on above: Order Comment: Speci men Type: BLOOD SPECIMENOrdering Facility: [facility] Address: [address] [address] Performed By: #### 5 7021-8 ####[facility]ORATORYCLIA [id number] [place] [address] [place] RBC (Bld) [#/Vol] 3.34 10*6/uL Low 3.90-5.20 [facility] Comment on above: Order Comment: Speci men Type: BLOOD SPECIMENOrdering Facility: [facility] Address: [address] [place] [address] Performed By: #### 5 7021-8 ####[facility]ORATORYCLIA [id number] [place] [address] [place] WBC (Bld) [#/Vol] 10.32 10*3/uL Normal 3.70-11.00 [facility] Comment on above: Order Comment: Speci men Type: BLOOD SPECIMENOrdering Facility: [facility] Address: [address] [place] [address] Performed By: #### 5 7021-8 ####[facility]ORATORYCLIA [id number] [address] [place] CONSULT PROGon 08-01-2022 CONSULT PROG Normal [facility] CONSULT PROG Normal [facility] CASE MANAGEMon 07-31-2022 CASE MANAGEM Normal [facility] CONSULT PROGon 07-31-2022 CONSULT PROG Normal [facility] CONSULT PROG Normal [facility] NUTRITIONon 07-31-2022 NUTRITION Normal [facility] THERAPY NTon 07-31-2022 THERAPY NT Normal [facility] CBC panel Auto (Bld)on 07-30 Erythrocyte distribution width (RBC) [Ratio] 13.6 % Normal 11.5-15.0 [facility] Comment on above: Order Comment: Speci men Type: BLOOD SPECIMENOrdering Facility: [facility] Address: [address] [place] [address] Performed By: #### 5 8410-2 ####[facility]ATORYCLIA [id number] [address] [place] Hematocrit (Bld) [Volume fraction] 32.2 % Low 36.0-46.0 [facility] Comment on above: Order Comment: Speci men Type: BLOOD SPECIMENOrdering Facility: [facility] Address: [address] [place] [address] Performed By: #### 5 8410-2 ####[facility]ORATORYCLIA [id number] [address] [place] Hemoglobin (Bld) [Mass/Vol] 10.0 g/dL Low 11.5-15.5 [facility] Comment on above: Order Comment: Speci men Type: BLOOD SPECIMENOrdering Facility: [facility] Address: [address] [address] Performed By: #### 5 8410-2 ####[facility]ORATORYCLIA [id number] [address] MCH (RBC) [Entitic mass] 29.1 pg Normal 26.0-34.0 [facility] Comment on above: Order Comment: Speci men Type: BLOOD SPECIMENOrdering Facility: [facility] Address: [address] [place] [address] Performed By: #### 5 8410-2 ####[facility]ORATORYCLIA [id number] [address] MCHC (RBC) [Mass/Vol] 31.1 g/dL Normal 30.5-36.0 [facility] Comment on above: Order Comment: Speci men Type: BLOOD SPECIMENOrdering Facility: [facility] Address: [address] [place] [address] Performed By: #### 5 8410-2 ####[facility]ORATORYCLIA [id number] [address] [place] [facility] MCV (RBC) [Entitic vol] 93.6 fL Normal 80.0-100.0 [facility] Comment on above: Order Comment: Speci men Type: BLOOD SPECIMENOrdering Facility: [facility] Address: [address] [place] [address] Performed By: #### 5 8410-2 ####[facility]ATORYCLIA [id number] [address] Nucleated RBC (Bld) [#/Vol] 10*3/uL Normal <0.01 [facility] Comment on above: Order Comment: Speci men Type: BLOOD SPECIMENOrdering Facility: [facility] Address: [address] [place] [address] Performed By: #### 5 8410-2 ####[facility]ATORYCLIA [id number] [address] Platelet mean volume (Bld) [Entitic vol] 9.9 fL Normal 9.0-12.7 [facility] Comment on above: Order Comment: Speci men Type: BLOOD SPECIMENOrdering Facility: [facility] Address: [address] [place] [address] Performed By: #### 5 8410-2 ####[facility]ATORYCLIA [id number] [address] [place] Platelets (Bld) [#/Vol] 291 10*3/uL Normal 150-400 [facility] Comment on above: Order Comment: Speci men Type: BLOOD SPECIMENOrdering Facility: [facility] Address: [address] [place] [address] Performed By: #### 5 8410-2 ####[facility]ATORYCLIA [id number] [address] [place] RBC (Bld) [#/Vol] 3.44 10*6/uL Low 3.90-5.20 [facility] Comment on above: Order Comment: Speci men Type: BLOOD SPECIMENOrdering Facility: [facility] Address: [address] [place] [address] Performed By: #### 5 8410-2 ####[facility]ORATORYCLIA [id number] [address] STATES OF [facility] WBC (Bld) [#/Vol] 12.20 10*3/uL High 3.70-11.00 [facility] Comment on above: Order Comment: Speci men Type: BLOOD SPECIMENOrdering Facility: [facility] Address: [address] [place] [address] Performed By: #### 5 8410-2 ####[facility]ORATORYCLIA [id number] [address] OF [facility] CONSULT PROGon 07-30-2022 CONSULT PROG Normal [facility] HbA1c (Bld)on 07-30-2022 Average glucose Estimated from glycated hemoglobin (Bld) [Mass/Vol] 134 mg/dL Normal [facility] Comment on above: Order Comment: Speci men Type: BLOOD SPECIMENOrdering Facility: [facility] Address: [address] [id number] Result Comment: eAG: (Estimated average glucose) is a calculated value from HgbA1c and is software sales representative of the average blood glucose level in the last 2-3 month period. Performed By: #### 5 5454-3 ####[facility]ORATORYCLIA [id number] [address] OF [facility] HbA1c (Bld) [Mass fraction] 6.3 % High 4.3-5.6 [facility] Comment on above: Order Comment: Speci melany Type: BLOOD SPECIMENOrdering Facility: [facility] Address: [address] [address] Result Comment: [place] Diabetes Association guidelines indicate that patients with HgbA1c in the range 5.7-6.4% are at increased risk for development of diabetes, and intervention by lifestyle modification may be beneficial. HgbA1c greater or equal to 6.5% is considered diagnostic of diabetes. Performed By: #### 5 5454-3 ####[facility]ORATORYCLIA [id number] [address] [place] THERAPY NTon 07-30-2022 THERAPY NT Normal [facility] THERAPY NT Normal [facility] ALLIED HEALTHon 07-29-2022 ALLIED HEALTH Normal [facility] CASE MANAGEMon 07-29-2022 CASE MANAGEM Normal [facility] CONSULT PROGon 07-29-2022 CONSULT PROG Normal [facility] CONSULT PROG Normal [facility] ECG COMPLETEon 07-29-2022 ECG COMPLETE Normal [facility] NURSING PROGon 07-29-2022 NURSING PROG Normal [facility] NURSING PROG Normal [facility] THERAPY NTon 07-29-2022 THERAPY NT Normal [facility] Basic metabolic 2000 panelon 07-28-2022 Anion gap [Moles/Vol] 8 mmol/L Low 9-18 [facility] Comment on above: Order Comment: Speci melany Type: BLOOD SPECIMENOrdering Facility: [facility] Address: [address] [phone] Performed By: #### 2 4321-2 ####[facility]ATORYCLIA [id number] [address] [place] Calcium [Mass/Vol] 8.3 mg/dL Low 8.5-10.2 [facility] Comment on above: Order Comment: Speci men Type: BLOOD SPECIMENOrdering Facility: [facility] Address: [address] [place] [address] Performed By: #### 2 4321-2 ####[facility]ORYCLIA [id number] [address] [place] Chloride [Moles/Vol] 109 mmol/L High 97-105 [facility] Comment on above: Order Comment: Speci men Type: BLOOD SPECIMENOrdering Facility: [facility] Address: [address] [place] [address] Performed By: #### 2 4321-2 ####[facility]ATORYCLIA [id number] [address] CO2 [Moles/Vol] 26 mmol/L Normal 22-30 [facility] Comment on above: Order Comment: Speci men Type: BLOOD SPECIMENOrdering Facility: [facility] Address: [address] [place] [address] Performed By: #### 2 4321-2 ####[facility]ORYCLIA [id number] [address] [place] Creatinine [Mass/Vol] 0.30 mg/dL Low 0.58-0.96 [facility] Comment on above: Order Comment: Speci men Type: BLOOD SPECIMENOrdering Facility: [facility] Address: [address] [place] [address] Performed By: #### 2 4321-2 ####[facility]ORATORYCLIA [id number] [address] ESTIMATED GLOMERULAR FILTRATION RATE 123 mL/min/1.73m??? Normal >=60 [facility] Comment on above: Order Comment: Speci men Type: BLOOD SPECIMENOrdering Facility: [facility] Address: [address] [place], [place] [phone] Result Comment: Manasa mated Glomerular Filtration Rate [...] actual GFR. Performed By: #### 2 4321-2 ####[facility]ORATORYCLIA [id number] [place] [address] [place] Glucose [Mass/Vol] 211 mg/dL High 74-99 [facility] Comment on above: Order Comment: Tawanda mosley Type: BLOOD SPECIMENOrdering Facility: [facility] Address: [address] [place] [address] Result Comment: The [place] [employer] (ADA) provides guidance for cutoff [...] Standards of Medical Care in Diabetes 2016, [place] [employer]. Diabetes Care. 2016.39(Suppl 1). Performed By: #### 2 4321-2 ####[facility]ORATORYCLIA [id number] [place] [address] [place] Potassium [Moles/Vol] 3.4 mmol/L Low 3.7-5.1 [facility] Comment on above: Order Comment: Tawanda mosley Type: BLOOD SPECIMENOrdering Facility: [facility] Address: [address] [place], [place] [address] Performed By: #### 2 4321-2 ####[facility] LABORATORYCLIA [id number] [address] Sodium [Moles/Vol] 143 mmol/L Normal 136-144 [facility] Comment on above: Order Comment: Speci men Type: BLOOD SPECIMENOrdering Facility: [facility] Address: [address] [place] [address] Performed By: #### 2 4321-2 ####[facility] LABORATORYCLIA [id number] [address] [place] Urea nitrogen [Mass/Vol] 9 mg/dL Normal 7-21 [facility] Comment on above: Order Comment: Speci men Type: BLOOD SPECIMENOrdering Facility: [facility] Address: [address] [place] [address] Performed By: #### 2 4321-2 ####[facility] LABORATORYCLIA [id number] [address] [place] CBC W Auto Differential pane l (Bld)on 07-28-2022 Basophils (Bld) [#/Vol] 0.08 10*3/uL Normal <0.11 [facility] Comment on above: Order Comment: Speci men Type: BLOOD SPECIMENOrdering Facility: [facility] Address: [address] [place] [address] Performed By: #### 5 7021-8 ####[facility] LABORATORYCLIA [id number] [address] [place] Basophils/100 WBC (Bld) 0.7 % Normal [facility] Comment on above: Order Comment: Speci men Type: BLOOD SPECIMENOrdering Facility: [facility] Address: [address] [place] [address] Performed By: #### 5 7021-8 ####[facility]ORATORYCLIA [id number] [address] [place] [facility] Differential cell count method Nom (Bld) Auto Normal [facility] Comment on above: Order Comment: Speci men Type: BLOOD SPECIMENOrdering Facility: [facility] Address: [address] [place] [address] Performed By: #### 5 7021-8 ####[facility]ORATORYCLIA [id number] [address] [place] Eosinophils (Bld) [#/Vol] 0.34 10*3/uL Normal <0.46 [facility] Comment on above: Order Comment: Speci men Type: BLOOD SPECIMENOrdering Facility: [facility] Address: [address] [place] [address] Performed By: #### 5 7021-8 ####[facility] LABORATORYCLIA [id number] [address] [place] Eosinophils/100 WBC (Bld) 2.8 % Normal [facility] Comment on above: Order Comment: Speci men Type: BLOOD SPECIMENOrdering Facility: [facility] Address: [address] [place] [address] Performed By: #### 5 7021-8 ####[facility]ORATORYCLIA [id number] [address] Erythrocyte distribution width (RBC) [Ratio] 13.7 % Normal 11.5-15.0 [facility] Comment on above: Order Comment: Speci men Type: BLOOD SPECIMENOrdering Facility: [facility] Address: [address] [place] [address] Performed By: #### 5 7021-8 ####[facility]ORATORYCLIA [id number] [address] [place] Hematocrit (Bld) [Volume fraction] 29.9 % Low 36.0-46.0 [facility] Comment on above: Order Comment: Speci men Type: BLOOD SPECIMENOrdering Facility: [facility] Address: [address] [place] [address] Performed By: #### 5 7021-8 ####[facility]ORATORYCLIA [id number] [address] [place] Hemoglobin (Bld) [Mass/Vol] 9.0 g/dL Low 11.5-15.5 [facility] Comment on above: Order Comment: Speci men Type: BLOOD SPECIMENOrdering Facility: [facility] Address: [address] [place] [address] Performed By: #### 5 7021-8 ####[facility]ATORYCLIA [id number] [address] Immature granulocytes (Bld) [#/Vol] 0.08 10*3/uL Normal <0.10 [facility] Comment on above: Order Comment: Speci men Type: BLOOD SPECIMENOrdering Facility: [facility] Address: [address] [place] [address] Performed By: #### 5 7021-8 ####[facility]ATORYCLIA [id number] [address] Immature granulocytes/100 WBC (Bld) 0.7 % Normal [facility] Comment on above: Order Comment: Speci men Type: BLOOD SPECIMENOrdering Facility: [facility] Address: [address] [place] [address] Performed By: #### 5 7021-8 ####[facility]ORATORYCLIA [id number] [address] [place] [facility] Lymphocytes (Bld) [#/Vol] 4.17 10*3/uL High 1.00-4.00 [facility] Comment on above: Order Comment: Speci men Type: BLOOD SPECIMENOrdering Facility: [facility] Address: [address] [place] [address] Performed By: #### 5 7021-8 ####[facility]ATORYCLIA [id number] [address] Lymphocytes/100 WBC (Bld) 34.0 % Normal [facility] Comment on above: Order Comment: Speci men Type: BLOOD SPECIMENOrdering Facility: [facility] Address: [address] [place] [address] Performed By: #### 5 7021-8 ####[facility]ATORYCLIA [id number] [address] [place] MCH (RBC) [Entitic mass] 29.1 pg Normal 26.0-34.0 [facility] Comment on above: Order Comment: Speci men Type: BLOOD SPECIMENOrdering Facility: [facility] Address: [address] [place] [address] Performed By: #### 5 7021-8 ####[facility]ORATORYCLIA [id number] [address] [place] MCHC (RBC) [Mass/Vol] 30.1 g/dL Low 30.5-36.0 [facility] Comment on above: Order Comment: Speci men Type: BLOOD SPECIMENOrdering Facility: [facility] Address: [address] [place] [address] Performed By: #### 5 7021-8 ####[facility]ATORYCLIA [id number] [address] [place] MCV (RBC) [Entitic vol] 96.8 fL Normal 80.0-100.0 [facility] Comment on above: Order Comment: Speci men Type: BLOOD SPECIMENOrdering Facility: [facility] Address: [address] [place] [address] Performed By: #### 5 7021-8 ####[facility]ATORYCLIA [id number] [address] [place] Monocytes (Bld) [#/Vol] 0.86 10*3/uL Normal <0.87 [facility] Comment on above: Order Comment: Speci men Type: BLOOD SPECIMENOrdering Facility: [facility] Address: [address] [place] [address] Performed By: #### 5 7021-8 ####[facility]ATORYCLIA [id number] [address] Monocytes/100 WBC (Bld) 7.0 % Normal [facility] Comment on above: Order Comment: Speci men Type: BLOOD SPECIMENOrdering Facility: [facility] Address: [address] [place] [address] Performed By: #### 5 7021-8 ####[facility]ORATORYCLIA [id number] [address] [place] Neutrophils (Bld) [#/Vol] 6.72 10*3/uL Normal 1.45-7.50 [facility] Comment on above: Order Comment: Speci men Type: BLOOD SPECIMENOrdering Facility: [facility] Address: [address] [place] [address] Performed By: #### 5 7021-8 ####[facility]ORATORYCLIA [id number] [address] [place] Neutrophils/100 WBC (Bld) 54.8 % Normal [facility] Comment on above: Order Comment: Speci men Type: BLOOD SPECIMENOrdering Facility: [facility] Address: [address] [place] [address] Performed By: #### 5 7021-8 ####[facility]ORATORYCLIA [id number] [address] [place] Nucleated RBC (Bld) [#/Vol] 10*3/uL Normal <0.01 [facility] Comment on above: Order Comment: Speci men Type: BLOOD SPECIMENOrdering Facility: [facility] Address: [address] [place] [address] Performed By: #### 5 7021-8 ####[facility]ORATORYCLIA [id number] [address] [place] Nucleated RBC/100 WBC (Bld) [Ratio] 0.0 /100 WBC Normal [facility] Comment on above: Order Comment: Speci men Type: BLOOD SPECIMENOrdering Facility: [facility] Address: [address] [place] [address] Performed By: #### 5 7021-8 ####[facility]ORATORYCLIA [id number] [address] [place] Platelet mean volume (Bld) [Entitic vol] 10.3 fL Normal 9.0-12.7 [facility] Comment on above: Order Comment: Speci men Type: BLOOD SPECIMENOrdering Facility: [facility] Address: [address] [place] [address] Performed By: #### 5 7021-8 ####[facility]ORATORYCLIA [id number] [address] [place] Platelets (Bld) [#/Vol] 277 10*3/uL Normal 150-400 [facility] Comment on above: Order Comment: Speci men Type: BLOOD SPECIMENOrdering Facility: [facility] Address: [address] [place] [place] [address] Performed By: #### 5 7021-8 ####[facility]ORATORYCLIA [id number] [place] [address] [place] RBC (Bld) [#/Vol] 3.09 10*6/uL Low 3.90-5.20 [facility] Comment on above: Order Comment: Speci men Type: BLOOD SPECIMENOrdering Facility: [facility] Address: [address] [place] [place] [address] Performed By: #### 5 7021-8 ####[facility]ORATORYCLIA [id number] [address] [place] WBC (Bld) [#/Vol] 12.25 10*3/uL High 3.70-11.00 [facility] Comment on above: Order Comment: Speci men Type: BLOOD SPECIMENOrdering Facility: [facility] Address: [address] [place] [address] Performed By: #### 5 7021-8 ####[facility]ORATORYCLIA [id number] [address] [place] CONSULT PROGon 07-28-2022 CONSULT PROG Normal [facility] CONSULT PROGon 07-27-2022 CONSULT PROG Normal [facility] ANES POSTPROC EVALon 023 ANES POSTPROC EVAL Normal [facility] ANES PRE-OPon 07-26-2022 ANES PRE-OP Normal [facility] BRIEF OP NOTon 07-26-2022 BRIEF OP NOT Normal [facility] Bacteria Spec Anaerobe Culto n 07-26-2022 Bacteria identified Anaer cx Nom (Unsp spec) Negative Normal [facility] Comment on above: Performed By: #### 1 1475-1, 6462-6, 635-3 ####[facility] LABORATORYCLIA [id number] [place], [place] [id number] [place] [address] [place] Bacteria identified Anaer cx Nom (Unsp spec) Negative Normal [facility] Comment on above: Performed By: #### 6 462-6, 63094-8, 635-3 ####[facility]ORATORYCLIA [id number] [place], [place] [id number] [place] [address] [place] Bacteria Wnd Culton 07-26-19 23 Bacteria identified Cx Nom (Wound) Normal [facility] Comment on above: Performed By: #### 1 1475-1, 6462-6, 635-3 ####[facility]ORATORYCLIA [id number] [address] Bacteria identified Cx Nom (Wound) ORGANISM ID: 1 Rare Staphylococcus aureus Refer to specimen collected on 07/25/2022 GRAM STAIN: No organisms seen Few Polymorphonuclear leukocytes Many Red Blood Cells Abnormal [facility] Comment on above: Performed By: #### 6 462-6, 39117-9, 005-3 ####[facility]ORATORYCLIA [id number] [place], [place] [id number] [place] [address] [place] CASE MANAGEMon 07-26-2022 CASE MANAGEM Normal [facility] CONSULT PROGon 07-26-2022 CONSULT PROG Normal [facility] CONSULT PROG Normal [facility] Microorganism Spec Culton Microorganism identified Cx Nom (Unsp spec) CULTURE, FUNGAL: No Fungus isolated after 28 days FUNGAL SMEAR: No fungus seen Normal [facility] Comment on above: Performed By: #### 1 1475-1, 6462-6, 5-3 ####[facility]ORATORYCLIA [id number] [address] [place] Microorganism identified Cx Nom (Unsp spec) CULTURE, AFB: No Acid Fast Bacilli isolated after 42 days AFB STAIN: No acid fast bacilli seen by flurochrome stain Normal [facility] Comment on above: Performed By: #### 1 1475-1, 6462-6, 635-3 ####[facility]ORATORYCLIA [id number] [address] Microorganism identified Cx Nom (Unsp spec) CULTURE, FUNGAL: No Fungus isolated after 28 days FUNGAL SMEAR: No fungus seen Normal [facility] Comment on above: Performed By: #### 6 462-6, 34851-7, 635-3 ####[facility]ORATORYCLIA [id number] [address] Microorganism identified Cx Nom (Unsp spec) CULTURE, AFB: No Acid Fast Bacilli isolated after 42 days AFB STAIN: No acid fast bacilli seen by flurochrome stain Normal [facility] Comment on above: Performed By: #### 6 462-6, 78515-5, 635-3 ####[facility]ORATORYCLIA [id number] [address] OPERATIVE NOon 07-26-2022 OPERATIVE NO Normal [facility] Vancomycin random [Mass/Vol] on 07-26-2022 Vancomycin [Mass/Vol] 13.0 ug/mL Normal 10.0-20.0 [facility] Comment on above: Order Comment: Speci men Type: BLOOD SPECIMENOrdering Facility: [facility] Address: [address] [place] [phone] Result Comment: Refe rence ranges and high/low indicator flags are provided as general guidelines only. The treating physician must determine appropriate target levels/dosing based on the specific clinical situation. Performed By: #### 4 091-5 ####[facility]ORATORYCLIA [id number] [address] Bacteria Wnd Culton 07-25-19 23 Bacteria identified Cx Nom (Wound) Abnormal [facility] Comment on above: Performed By: #### 6 462-6 ####[facility]ORATORYCLIA [id number] [address] Basic metabolic 2000 panelon 07-25-2022 Anion gap [Moles/Vol] 8 mmol/L Low 9-18 [facility] Comment on above: Order Comment: Speci men Type: BLOOD SPECIMENOrdering Facility: [facility] Address: [address] [place] [address] Performed By: #### 2 4321-2 ####[facility] LABORATORYCLIA [id number] [place] [address] [place] Calcium [Mass/Vol] 8.4 mg/dL Low 8.5-10.2 [facility] Comment on above: Order Comment: Speci men Type: BLOOD SPECIMENOrdering Facility: [facility] Address: [address] [place] [address] Performed By: #### 2 4321-2 ####[facility]ORATORYCLIA [id number] [place] [address] [place] Chloride [Moles/Vol] 107 mmol/L High 97-105 [facility] Comment on above: Order Comment: Speci men Type: BLOOD SPECIMENOrdering Facility: [facility] Address: [address] [place] [address] Performed By: #### 2 4321-2 ####[facility]ATORYCLIA [id number] [address] [place] CO2 [Moles/Vol] 27 mmol/L Normal 22-30 [facility] Comment on above: Order Comment: Speci men Type: BLOOD SPECIMENOrdering Facility: [facility] Address: [address] [place] [address] Performed By: #### 2 4321-2 ####[facility]ORYCLIA [id number] [place] [address] [place] Creatinine [Mass/Vol] 0.59 mg/dL Normal 0.58-0.96 [facility] Comment on above: Order Comment: Speci men Type: BLOOD SPECIMENOrdering Facility: [facility] Address: [address] [place] [address] Performed By: #### 2 4321-2 ####[facility]ORATORYCLIA [id number] [place] [address] [place] ESTIMATED GLOMERULAR FILTRATION RATE 105 mL/min/1.73m??? Normal >=60 [facility] Comment on above: Order Comment: Tawanda mosley Type: BLOOD SPECIMENOrdering Facility: [facility] Address: [address] [place] [address] Result Comment: Manasa mated Glomerular Filtration Rate [...] actual GFR. Performed By: #### 2 4321-2 ####[facility]ITALCLIA [id number] [place] [address] [place] Glucose [Mass/Vol] 112 mg/dL High 74-99 [facility] Comment on above: Order Comment: Speci melany Type: BLOOD SPECIMENOrdering Facility: [facility] Address: [address] [place] [address] Result Comment: The [place] [employer] (ADA) provides guidance for cutoff [...] Standards of Medical Care in Diabetes 2016, [place] [employer]. Diabetes Care. 2016.39(Suppl 1). Performed By: #### 2 4321-2 ####[facility]ORATORYCLIA [id number] [place] [id number] [place] Potassium [Moles/Vol] 3.8 mmol/L Normal 3.7-5.1 [facility] Comment on above: Order Comment: Speci men Type: BLOOD SPECIMENOrdering Facility: [facility] Address: [address] [place] [address] Performed By: #### 2 4321-2 ####[facility]ORATORYCLIA [id number] [address] [place] Sodium [Moles/Vol] 142 mmol/L Normal 136-144 [facility] Comment on above: Order Comment: Speci men Type: BLOOD SPECIMENOrdering Facility: [facility] Address: [address] [place] [address] Performed By: #### 2 4321-2 ####[facility]ORATORYCLIA [id number] [place] [address] [place] Urea nitrogen [Mass/Vol] 8 mg/dL Normal 7-21 [facility] Comment on above: Order Comment: Speci men Type: BLOOD SPECIMENOrdering Facility: [facility] Address: [address] [place] [address] Performed By: #### 2 4321-2 ####[facility]ORATORYCLIA [id number] [address] [place] CASE MGT INIT ASSESon 2022 CASE MGT INIT ASSES Normal [facility] CBC panel Auto (Bld)on 07-25 Erythrocyte distribution width (RBC) [Ratio] 13.5 % Normal 11.5-15.0 [facility] Comment on above: Order Comment: Speci men Type: BLOOD SPECIMENOrdering Facility: [facility] Address: [address] [place] [address] Performed By: #### 5 8410-2 ####[facility]ORATORYCLIA [id number] [address] [place] Hematocrit (Bld) [Volume fraction] 30.0 % Low 36.0-46.0 [facility] Comment on above: Order Comment: Speci men Type: BLOOD SPECIMENOrdering Facility: [facility] Address: [address] [place] [address] Performed By: #### 5 8410-2 ####[facility]ORATORYCLIA [id number] [address] Hemoglobin (Bld) [Mass/Vol] 9.5 g/dL Low 11.5-15.5 [facility] Comment on above: Order Comment: Speci men Type: BLOOD SPECIMENOrdering Facility: [facility] Address: [address] [place] [address] Performed By: #### 5 8410-2 ####[facility]ORATORYCLIA [id number] [address] MCH (RBC) [Entitic mass] 29.7 pg Normal 26.0-34.0 [facility] Comment on above: Order Comment: Speci men Type: BLOOD SPECIMENOrdering Facility: [facility] Address: [address] [place] [address] Performed By: #### 5 8410-2 ####[facility]ORATORYCLIA [id number] [address] MCHC (RBC) [Mass/Vol] 31.7 g/dL Normal 30.5-36.0 [facility] Comment on above: Order Comment: Speci men Type: BLOOD SPECIMENOrdering Facility: [facility] Address: [address] [place] [address] Performed By: #### 5 8410-2 ####[facility]ORATORYCLIA [id number] [address] MCV (RBC) [Entitic vol] 93.8 fL Normal 80.0-100.0 [facility] Comment on above: Order Comment: Speci men Type: BLOOD SPECIMENOrdering Facility: [facility] Address: [address] [place] [address] Performed By: #### 5 8410-2 ####[facility]ORATORYCLIA [id number] [address] Nucleated RBC (Bld) [#/Vol] 10*3/uL Normal <0.01 [facility] Comment on above: Order Comment: Speci men Type: BLOOD SPECIMENOrdering Facility: [facility] Address: [address] [place] [address] Performed By: #### 5 8410-2 ####[facility]ORATORYCLIA [id number] [address] [place] Platelet mean volume (Bld) [Entitic vol] 10.7 fL Normal 9.0-12.7 [facility] Comment on above: Order Comment: Speci men Type: BLOOD SPECIMENOrdering Facility: [facility] Address: [address] [place] [address] Performed By: #### 5 8410-2 ####[facility]ORATORYCLIA [id number] [place] [address] [place] Platelets (Bld) [#/Vol] 265 10*3/uL Normal 150-400 [facility] Comment on above: Order Comment: Speci men Type: BLOOD SPECIMENOrdering Facility: [facility] Address: [address] [place] [address] Performed By: #### 5 8410-2 ####[facility]ORATORYCLIA [id number] [place] [address] [place] RBC (Bld) [#/Vol] 3.20 10*6/uL Low 3.90-5.20 [facility] Comment on above: Order Comment: Speci men Type: BLOOD SPECIMENOrdering Facility: [facility] Address: [address] [place] [address] Performed By: #### 5 8410-2 ####[facility]ORATORYCLIA [id number] [place] [address] [place] WBC (Bld) [#/Vol] 9.31 10*3/uL Normal 3.70-11.00 [facility] Comment on above: Order Comment: Speci men Type: BLOOD SPECIMENOrdering Facility: [facility] Address: [address] [place] [address] Performed By: #### 5 8410-2 ####[facility]ATORYCLIA [id number] [address] [place] CONSULT PROGon 07-25-2022 CONSULT PROG Normal [facility] CONSULT PROG Normal [facility] ECG COMPLETEon 07-25-2022 ECG COMPLETE Normal [facility] ALLIED HEALTHon 07-24-2022 ALLIED HEALTH Normal [facility] Bacteria Bld Culton 07-24-19 23 Bacteria identified Cx Nom (Bld) CULTURE, BLOOD: No growth 5 days Normal [facility] Comment on above: Performed By: #### 6 00-7 ####[facility]ORATORYCLIA [id number] [address] [place] CBC W Auto Differential pane l (Bld)on 07-24-2022 Basophils (Bld) [#/Vol] 0.08 10*3/uL Normal <0.11 [facility] Comment on above: Order Comment: Speci men Type: BLOOD SPECIMENOrdering Facility: [facility] Address: [address] [place] [address] Performed By: #### 5 7021-8 ####[facility]ORATORYCLIA [id number] [address] [place] Basophils/100 WBC (Bld) 0.5 % Normal [facility] Comment on above: Order Comment: Speci men Type: BLOOD SPECIMENOrdering Facility: [facility] Address: [address] [place] [address] Performed By: #### 5 7021-8 ####[facility]ORATORYCLIA [id number] [address] [place] [facility] Differential cell count method Nom (Bld) Auto Normal [facility] Comment on above: Order Comment: Speci men Type: BLOOD SPECIMENOrdering Facility: [facility] Address: [address] [place] [address] Performed By: #### 5 7021-8 ####[facility]ORATORYCLIA [id number] [place] [address] [place] Eosinophils (Bld) [#/Vol] 0.35 10*3/uL Normal <0.46 [facility] Comment on above: Order Comment: Speci men Type: BLOOD SPECIMENOrdering Facility: [facility] Address: [address] [place] [address] Performed By: #### 5 7021-8 ####[facility]ORATORYCLIA [id number] [address] [place] Eosinophils/100 WBC (Bld) 2.3 % Normal [facility] Comment on above: Order Comment: Speci men Type: BLOOD SPECIMENOrdering Facility: [facility] Address: [address] [place] [address] Performed By: #### 5 7021-8 ####[facility]ORATORYCLIA [id number] [address] [place] Erythrocyte distribution width (RBC) [Ratio] 13.2 % Normal 11.5-15.0 [facility] Comment on above: Order Comment: Speci men Type: BLOOD SPECIMENOrdering Facility: [facility] Address: [address] [place] [address] Performed By: #### 5 7021-8 ####[facility] LABORATORYCLIA [id number] [address] [place] Hematocrit (Bld) [Volume fraction] 30.0 % Low 36.0-46.0 [facility] [facility] Comment on above: Order Comment: Speci men Type: BLOOD SPECIMENOrdering Facility: [facility] Address: [address] [place] [address] Performed By: #### 5 7021-8 ####[facility] LABORATORYCLIA [id number] [address] [place] Hemoglobin (Bld) [Mass/Vol] 9.6 g/dL Low 11.5-15.5 [facility] Comment on above: Order Comment: Speci men Type: BLOOD SPECIMENOrdering Facility: [facility] Address: [address] [place] [address] Performed By: #### 5 7021-8 ####[facility]ATORYCLIA [id number] [address] [place] Immature granulocytes (Bld) [#/Vol] 0.12 10*3/uL High <0.10 [facility] Comment on above: Order Comment: Speci men Type: BLOOD SPECIMENOrdering Facility: [facility] Address: [address] [address] Performed By: #### 5 7021-8 ####[facility] LABORATORYCLIA [id number] [address] [place] [facility] Immature granulocytes/100 WBC (Bld) 0.8 % Normal [facility] Comment on above: Order Comment: Speci men Type: BLOOD SPECIMENOrdering Facility: [facility] Address: [address] [place] [address] Performed By: #### 5 7021-8 ####[facility]ORATORYCLIA [id number] [address] [place] Lymphocytes (Bld) [#/Vol] 3.34 10*3/uL Normal 1.00-4.00 [facility] Comment on above: Order Comment: Speci men Type: BLOOD SPECIMENOrdering Facility: [facility] Address: [address] [place] [address] Performed By: #### 5 7021-8 ####[facility]ORATORYCLIA [id number] [address] Lymphocytes/100 WBC (Bld) 22.4 % Normal [facility] Comment on above: Order Comment: Speci men Type: BLOOD SPECIMENOrdering Facility: [facility] Address: [address] [place] [address] Performed By: #### 5 7021-8 ####[facility]ORATORYCLIA [id number] [address] [place] [facility] MCH (RBC) [Entitic mass] 29.3 pg Normal 26.0-34.0 [facility] Comment on above: Order Comment: Speci men Type: BLOOD SPECIMENOrdering Facility: [facility] Address: [address] [place] [address] Performed By: #### 5 7021-8 ####[facility]ORATORYCLIA [id number] [address] [place] [facility] MCHC (RBC) [Mass/Vol] 32.0 g/dL Normal 30.5-36.0 [facility] Comment on above: Order Comment: Speci men Type: BLOOD SPECIMENOrdering Facility: [facility] Address: [address] [place] [address] Performed By: #### 5 7021-8 ####[facility]ORATORYCLIA [id number] [address] STATES OF [facility] MCV (RBC) [Entitic vol] 91.5 fL Normal 80.0-100.0 [facility] Comment on above: Order Comment: Speci men Type: BLOOD SPECIMENOrdering Facility: [facility] Address: [address] [place] [address] Performed By: #### 5 7021-8 ####[facility]ORATORYCLIA [id number] [address] [place] Monocytes (Bld) [#/Vol] 1.52 10*3/uL High <0.87 [facility] Comment on above: Order Comment: Speci men Type: BLOOD SPECIMENOrdering Facility: [facility] Address: [address] [place] [address] Performed By: #### 5 7021-8 ####[facility]ORATORYCLIA [id number] [address] [place] [facility] Monocytes/100 WBC (Bld) 10.2 % Normal [facility] Comment on above: Order Comment: Speci men Type: BLOOD SPECIMENOrdering Facility: [facility] Address: [address] [place] [address] Performed By: #### 5 7021-8 ####[facility]ORATORYCLIA [id number] [address] [place] Neutrophils (Bld) [#/Vol] 9.53 10*3/uL High 1.45-7.50 [facility] Comment on above: Order Comment: Speci men Type: BLOOD SPECIMENOrdering Facility: [facility] Address: [address] [place] [address] Performed By: #### 5 7021-8 ####[facility]ORATORYCLIA [id number] [address] OF [facility] Neutrophils/100 WBC (Bld) 63.8 % Normal [facility] Comment on above: Order Comment: Speci men Type: BLOOD SPECIMENOrdering Facility: [facility] Address: [address] [place] [address] Performed By: #### 5 7021-8 ####[facility]ORATORYCLIA [id number] [address] [place] Nucleated RBC (Bld) [#/Vol] 10*3/uL Normal <0.01 [facility] Comment on above: Order Comment: Speci men Type: BLOOD SPECIMENOrdering Facility: [facility] Address: [address] [place] [address] Performed By: #### 5 7021-8 ####[facility]ORATORYCLIA [id number] [address] [place] Nucleated RBC/100 WBC (Bld) [Ratio] 0.0 /100 WBC Normal [facility] Comment on above: Order Comment: Speci men Type: BLOOD SPECIMENOrdering Facility: [facility] Address: [address] [place] [address] Performed By: #### 5 7021-8 ####[facility]ORATORYCLIA [id number] [place] [address] [place] Platelet mean volume (Bld) [Entitic vol] 10.8 fL Normal 9.0-12.7 [facility] Comment on above: Order Comment: Speci men Type: BLOOD SPECIMENOrdering Facility: [facility] Address: [address] [place] [address] Performed By: #### 5 7021-8 ####[facility]ORATORYCLIA [id number] [place] [address] [place] Platelets (Bld) [#/Vol] 261 10*3/uL Normal 150-400 [facility] Comment on above: Order Comment: Speci men Type: BLOOD SPECIMENOrdering Facility: [facility] Address: [address] [place] [address] Performed By: #### 5 7021-8 ####[facility]ORATORYCLIA [id number] [place] [address] [place] RBC (Bld) [#/Vol] 3.28 10*6/uL Low 3.90-5.20 [facility] Comment on above: Order Comment: Speci men Type: BLOOD SPECIMENOrdering Facility: [facility] Address: [address] [place] [address] Performed By: #### 5 7021-8 ####[facility]ORATORYCLIA [id number] [address] STATES OF [facility] WBC (Bld) [#/Vol] 14.94 10*3/uL High 3.70-11.00 [facility] Comment on above: Order Comment: Speci men Type: BLOOD SPECIMENOrdering Facility: [facility] Address: [address] [place] [address] Performed By: #### 5 7021-8 ####[facility]ORATORYCLIA [id number] [address] [place] CONSULTon 07-24-2022 CONSULT Normal [facility] CONSULT Normal [facility] CONSULT Normal [facility] CONSULT Normal [facility] CONSULT PROGon 07-24-2022 CONSULT PROG Normal [facility] Comprehensive metabolic 2000 panelon 07-24-2022 Albumin [Mass/Vol] 3.8 g/dL Low 3.9-4.9 [facility] Comment on above: Order Comment: Speci men Type: BLOOD SPECIMENOrdering Facility: [facility] Address: [address] [place] [address] Performed By: #### 2 4323-8 ####[facility]ORATORYCLIA [id number] [address] ALP [Catalytic activity/Vol] 179 U/L High 34-123 [facility] Comment on above: Order Comment: Speci men Type: BLOOD SPECIMENOrdering Facility: [facility] Address: [address] [place] [address] Performed By: #### 2 4323-8 ####[facility]ORATORYCLIA [id number] [address] [place] ALT With P-5'-P [Catalytic activity/Vol] Normal [facility] Comment on above: Order Comment: Speci men Type: BLOOD SPECIMENOrdering Facility: [facility] Address: [address] [place] [address] Result Comment: Unab le to assay due to interference from hemolysis. Suggest reorder as clinically indicated. Performed By: #### 2 4323-8 ####[facility]ORATORYCLIA [id number] [address] [place] [facility] Anion gap [Moles/Vol] 9 mmol/L Normal 9-18 [facility] Comment on above: Order Comment: Speci men Type: BLOOD SPECIMENOrdering Facility: [facility] Address: [address] [place] [address] Performed By: #### 2 4323-8 ####[facility]ATORYCLIA [id number] [address] AST With P-5'-P [Catalytic activity/Vol] Normal [facility] Comment on above: Order Comment: Speci men Type: BLOOD SPECIMENOrdering Facility: [facility] Address: [address] [place] [address] Result Comment: Unab le to assay due to interference from hemolysis. Suggest reorder as clinically indicated. Performed By: #### 2 4323-8 ####[facility]ATORYCLIA [id number] [address] [place] Bilirubin [Mass/Vol] 0.6 mg/dL Normal 0.2-1.3 [facility] Comment on above: Order Comment: Speci men Type: BLOOD SPECIMENOrdering Facility: [facility] Address: [address] [address] Performed By: #### 2 4323-8 ####[facility] LABORATORYCLIA [id number] [address] [place] Calcium [Mass/Vol] 8.7 mg/dL Normal 8.5-10.2 [facility] Comment on above: Order Comment: Speci men Type: BLOOD SPECIMENOrdering Facility: [facility] Address: [address] [place] [address] Performed By: #### 2 4323-8 ####[facility] LABORATORYCLIA [id number] [place] [address] [place] Chloride [Moles/Vol] 100 mmol/L Normal 97-105 [facility] Comment on above: Order Comment: Speci men Type: BLOOD SPECIMENOrdering Facility: [facility] Address: [address] [place] [address] Performed By: #### 2 4323-8 ####[facility]ORATORYCLIA [id number] [address] [place] CO2 [Moles/Vol] 26 mmol/L Normal 22-30 [facility] Comment on above: Order Comment: Speci men Type: BLOOD SPECIMENOrdering Facility: [facility] Address: [address] [place] [address] Performed By: #### 2 4323-8 ####[facility]ORATORYCLIA [id number] [address] [place] Creatinine [Mass/Vol] 0.49 mg/dL Low 0.58-0.96 [facility] Comment on above: Order Comment: Speci men Type: BLOOD SPECIMENOrdering Facility: [facility] Address: [address] [place] [address] Performed By: #### 2 4323-8 ####[facility]ATORYCLIA [id number] [address] [place] ESTIMATED GLOMERULAR FILTRATION RATE 109 mL/min/1.73m??? Normal >=60 [facility] Comment on above: Order Comment: Speci men Type: BLOOD SPECIMENOrdering Facility: [facility] Address: [address] [phone] Result Comment: Manasa mated Glomerular Filtration Rate [...] actual GFR. Performed By: #### 2 4323-8 ####[facility]ORATORYCLIA [id number] [place] [address] [place] Glucose [Mass/Vol] 102 mg/dL High 74-99 [facility] Comment on above: Order Comment: Tawanda mosley Type: BLOOD SPECIMENOrdering Facility: [facility] Address: [address] [place], [place] [id number] Result Comment: The [place] [employer] (ADA) provides guidance for cutoff [...] Standards of Medical Care in Diabetes 2016, [place] [employer]. Diabetes Care. 2016.39(Suppl 1). Performed By: #### 2 4323-8 ####[facility]ORATORYCLIA [id number] [place] [address] [place] Potassium [Moles/Vol] 4.3 mmol/L Normal 3.7-5.1 [facility] Comment on above: Order Comment: Tawanda mosley Type: BLOOD SPECIMENOrdering Facility: [facility] Address: [address] [phone] Performed By: #### 2 4323-8 ####[facility]ORATORYCLIA [id number] [place] [address] [place] Protein [Mass/Vol] 6.9 g/dL Normal 6.3-8.0 [facility] Comment on above: Order Comment: Speci men Type: BLOOD SPECIMENOrdering Facility: [facility] Address: [address] [place] [address] Performed By: #### 2 4323-8 ####[facility]ORATORYCLIA [id number] [address] [place] Sodium [Moles/Vol] 135 mmol/L Low 136-144 [facility] Comment on above: Order Comment: Speci men Type: BLOOD SPECIMENOrdering Facility: [facility] Address: [address] [place] [address] Performed By: #### 2 4323-8 ####[facility]ORATORYCLIA [id number] [address] [place] Urea nitrogen [Mass/Vol] 9 mg/dL Normal 7-21 [facility] Comment on above: Order Comment: Speci men Type: BLOOD SPECIMENOrdering Facility: [facility] Address: [address] [place] [address] Performed By: #### 2 4323-8 ####[facility]ORATORYCLIA [id number] [address] [place] ED NOTEon 07-24-2022 ED NOTE HNO ID: [id number] Author: Zaida Melendez RN Service: Emergency Medicine Author Type: Registered Nurse Type: ED Notes Filed: 07/24/2022 3:42 PM Note Text: Report called to RICHARD Angulo [facility] ED NOTE HNO ID: [id number] Author: Zaida Melendez RN Service: Emergency Medicine Author Type: Registered Nurse Type: ED Notes Filed: 07/24/2022 2:58 PM Note Text: Per surgery, this RN given a verbal order that pt is cleared to eat/drink. Normal [facility] ED NOTE HNO ID: [id number] Author: Zaida Melendez RN Service: Emergency Medicine Author Type: Registered Nurse Type: ED Notes Filed: 07/24/2022 7:27 AM Note Text: Pt resting comfortably. Normal [facility] ED NOTE HNO ID: [id number] Author: Kilo Meraz RN Service: Emergency Medicine Author Type: Registered Nurse Type: ED Notes Filed: 07/24/2022 4:51 AM Note Text: Ortho at bedside applying wet to dry dressing to right lower arm wounds Normal [facility] ED NOTE HNO ID: [id number] Author: Florence León RN Service: ? Author Type: Registered Nurse Type: ED Notes Filed: 07/24/2022 4:15 AM Note Text: Bed: 16-ED Expected date: Expected time: Means of arrival: Comments: Squad Normal [facility] ED PROV NOTEon 07-24-2022 ED PROV NOTE Normal [facility] ED PROV NOTE Normal [facility] HISTORY PHYSICALon HISTORY PHYSICAL Normal [facility] SARS-CoV-2 RNA Resp Ql RODERICK+p robeon 07-24-2022 SARS-CoV-2 (COVID-19) RNA RODERICK+probe Ql (Resp) COVID 19 RESULT: SARS-CoV-2 (Agent of COVID-19) Not Detected by RT-PCR or equivalent method. This test has been authorized by FDA under an Emergency Use Authorization (EUA). Normal [facility] Comment on above: Performed By: #### 9 4500-6 ####[facility]ORATORYCLIA [id number] [place] [address] [place] XR HAND 3V PA/LAT/OBL RTon 0 07-24-2022 XR HAND 3V PA/LAT/OBL RT Normal [facility] Basic metabolic 2000 panelon 07-23-2022 Anion gap [Moles/Vol] 11 mmol/L Normal -18 [facility] Comment on above: Order Comment: Speci men Type: BLOOD SPECIMENOrdering Facility: [facility] Address: [address] [place] [address] Performed By: #### 2 4321-2 ####[facility]ORATORYCLIA [id number] [place] [address] [place] Calcium [Mass/Vol] 8.6 mg/dL Normal 8.5-10.2 [facility] Comment on above: Order Comment: Speci men Type: BLOOD SPECIMENOrdering Facility: [facility] Address: [address] [place] [address] Performed By: #### 2 4321-2 ####[facility]ATORYCLIA [id number] [place] [address] [place] Chloride [Moles/Vol] 98 mmol/L Normal 97-105 [facility] Comment on above: Order Comment: Speci men Type: BLOOD SPECIMENOrdering Facility: [facility] Address: [address] [place] [address] Performed By: #### 2 4321-2 ####[facility]ATORYCLIA [id number] [place] [address] [place] CO2 [Moles/Vol] 27 mmol/L Normal 22-30 [facility] Comment on above: Order Comment: Speci men Type: BLOOD SPECIMENOrdering Facility: [facility] Address: [address] [place] [address] Performed By: #### 2 4321-2 ####[facility]ORATORYCLIA [id number] [place] [address] [place] Creatinine [Mass/Vol] 0.73 mg/dL Normal 0.58-0.96 [facility] Comment on above: Order Comment: Speci men Type: BLOOD SPECIMENOrdering Facility: [facility] Address: [address] [place] [address] Performed By: #### 2 4321-2 ####[facility]ATORYCLIA [id number] [place] [address] [facility] [place] ESTIMATED GLOMERULAR FILTRATION RATE 95 mL/min/1.73m??? Normal >=60 [facility] Comment on above: Order Comment: Speci men Type: BLOOD SPECIMENOrdering Facility: [facility] Address: [address] [place] [address] Result Comment: Manasa mated Glomerular Filtration Rate [...] actual GFR. Performed By: #### 2 4321-2 ####[facility]ATORYCLIA [id number] [place] [address] [place] Glucose [Mass/Vol] 116 mg/dL High 74-99 [facility] Comment on above: Order Comment: Speci men Type: BLOOD SPECIMENOrdering Facility: [facility] Address: [address] [place], [place] [phone] Result Comment: The [place] [employer] (ADA) provides guidance for cutoff [...] Standards of Medical Care in Diabetes 2016, [place] [employer]. Diabetes Care. 2016.39(Suppl 1). Performed By: #### 2 4321-2 ####[facility]ORATORYCLIA [id number] [place] [address] [place] Potassium [Moles/Vol] 3.9 mmol/L Normal 3.7-5.1 [facility] Comment on above: Order Comment: Speci men Type: BLOOD SPECIMENOrdering Facility: [facility] Address: [address] [phone] Performed By: #### 2 4321-2 ####[facility]ORATORYCLIA [id number] [place] [address] [place] Sodium [Moles/Vol] 136 mmol/L Normal 136-144 [facility] Comment on above: Order Comment: Speci men Type: BLOOD SPECIMENOrdering Facility: [facility] Address: [address] [place] [address] Performed By: #### 2 4321-2 ####[facility]ORATORYCLIA [id number] [address] Urea nitrogen [Mass/Vol] 9 mg/dL Normal 7-21 [facility] Comment on above: Order Comment: Speci men Type: BLOOD SPECIMENOrdering Facility: [facility] Address: [address] [place] [address] Performed By: #### 2 4321-2 ####[facility]ORATORYCLIA [id number] [address] CBC W Auto Differential pane l (Bld)on 07-23-2022 Basophils (Bld) [#/Vol] 0.09 10*3/uL Normal <0.11 [facility] Comment on above: Order Comment: Speci men Type: BLOOD SPECIMENOrdering Facility: [facility] Address: [address] [place] [address] Performed By: #### 5 7021-8 ####[facility]ATORYCLIA [id number] [address] Basophils/100 WBC (Bld) 0.7 % Normal [facility] Comment on above: Order Comment: Speci men Type: BLOOD SPECIMENOrdering Facility: [facility] Address: [address] [place] [address] Performed By: #### 5 7021-8 ####[facility]ORATORYCLIA [id number] [address] Differential cell count method Nom (Bld) Auto Normal [facility] Comment on above: Order Comment: Speci men Type: BLOOD SPECIMENOrdering Facility: [facility] Address: [address] [place] [address] Performed By: #### 5 7021-8 ####[facility]ORATORYCLIA [id number] [address] [place] [facility] Eosinophils (Bld) [#/Vol] 0.25 10*3/uL Normal <0.46 [facility] Comment on above: Order Comment: Speci men Type: BLOOD SPECIMENOrdering Facility: [facility] Address: [address] [place] [address] Performed By: #### 5 7021-8 ####[facility]ORATORYCLIA [id number] [address] Eosinophils/100 WBC (Bld) 1.9 % Normal [facility] Comment on above: Order Comment: Speci men Type: BLOOD SPECIMENOrdering Facility: [facility] Address: [address] [place] [address] Performed By: #### 5 7021-8 ####[facility]ORATORYCLIA [id number] [address] [place] Erythrocyte distribution width (RBC) [Ratio] 13.3 % Normal 11.5-15.0 [facility] Comment on above: Order Comment: Speci men Type: BLOOD SPECIMENOrdering Facility: [facility] Address: [address] [place] [address] Performed By: #### 5 7021-8 ####[facility]ORATORYCLIA [id number] [address] [place] Hematocrit (Bld) [Volume fraction] 30.8 % Low 36.0-46.0 [facility] Comment on above: Order Comment: Speci men Type: BLOOD SPECIMENOrdering Facility: [facility] Address: [address] [place] [address] Performed By: #### 5 7021-8 ####[facility]ORATORYCLIA [id number] [address] [place] Hemoglobin (Bld) [Mass/Vol] 9.9 g/dL Low 11.5-15.5 [facility] Comment on above: Order Comment: Speci men Type: BLOOD SPECIMENOrdering Facility: [facility] Address: [address] [place] [address] Performed By: #### 5 7021-8 ####[facility]ORATORYCLIA [id number] [address] [place] Immature granulocytes (Bld) [#/Vol] 0.09 10*3/uL Normal <0.10 [facility] Comment on above: Order Comment: Speci men Type: BLOOD SPECIMENOrdering Facility: [facility] Address: [address] [place] [address] Performed By: #### 5 7021-8 ####[facility]ATORYCLIA [id number] [address] Immature granulocytes/100 WBC (Bld) 0.7 % Normal [facility] Comment on above: Order Comment: Speci men Type: BLOOD SPECIMENOrdering Facility: [facility] Address: [address] [place] [address] Performed By: #### 5 7021-8 ####[facility]ORATORYCLIA [id number] [address] [place] Lymphocytes (Bld) [#/Vol] 2.71 10*3/uL Normal 1.00-4.00 [facility] Comment on above: Order Comment: Speci men Type: BLOOD SPECIMENOrdering Facility: [facility] Address: [address] [place] [address] Performed By: #### 5 7021-8 ####[facility]ORYCLIA [id number] [address] Lymphocytes/100 WBC (Bld) 21.1 % Normal [facility] Comment on above: Order Comment: Speci men Type: BLOOD SPECIMENOrdering Facility: [facility] Address: [address] [place] [address] Performed By: #### 5 7021-8 ####[facility]ORYCLIA [id number] [address] [place] MCH (RBC) [Entitic mass] 29.9 pg Normal 26.0-34.0 [facility] Comment on above: Order Comment: Speci men Type: BLOOD SPECIMENOrdering Facility: [facility] Address: [address] [place] [address] Performed By: #### 5 7021-8 ####[facility]ORATORYCLIA [id number] [address] STATES OF [facility] MCHC (RBC) [Mass/Vol] 32.1 g/dL Normal 30.5-36.0 [facility] Comment on above: Order Comment: Speci men Type: BLOOD SPECIMENOrdering Facility: [facility] Address: [address] [place] [address] Performed By: #### 5 7021-8 ####[facility]ORATORYCLIA [id number] [address] [place] MCV (RBC) [Entitic vol] 93.1 fL Normal 80.0-100.0 [facility] Comment on above: Order Comment: Speci men Type: BLOOD SPECIMENOrdering Facility: [facility] Address: [address] [place] [address] Performed By: #### 5 7021-8 ####[facility] LABORATORYCLIA [id number] [address] [place] Monocytes (Bld) [#/Vol] 1.27 10*3/uL High <0.87 [facility] Comment on above: Order Comment: Speci men Type: BLOOD SPECIMENOrdering Facility: [facility] Address: [address] [place] [address] Performed By: #### 5 7021-8 ####[facility] LABORATORYCLIA [id number] [address] [place] [facility] Monocytes/100 WBC (Bld) 9.9 % Normal [facility] Comment on above: Order Comment: Speci men Type: BLOOD SPECIMENOrdering Facility: [facility] Address: [address] [place] [address] Performed By: #### 5 7021-8 ####[facility] LABORATORYCLIA [id number] [address] [place] Neutrophils (Bld) [#/Vol] 8.44 10*3/uL High 1.45-7.50 [facility] Comment on above: Order Comment: Speci men Type: BLOOD SPECIMENOrdering Facility: [facility] Address: [address] [place] [address] Performed By: #### 5 7021-8 ####[facility] LABORATORYCLIA [id number] [address] Neutrophils/100 WBC (Bld) 65.7 % Normal [facility] Comment on above: Order Comment: Speci men Type: BLOOD SPECIMENOrdering Facility: [facility] Address: [address] [place] [address] Performed By: #### 5 7021-8 ####[facility] LABORATORYCLIA [id number] [address] Nucleated RBC (Bld) [#/Vol] 10*3/uL Normal <0.01 [facility] Comment on above: Order Comment: Speci men Type: BLOOD SPECIMENOrdering Facility: [facility] Address: [address] [place] [address] Performed By: #### 5 7021-8 ####[facility] LABORATORYCLIA [id number] [address] Nucleated RBC/100 WBC (Bld) [Ratio] 0.0 /100 WBC Normal [facility] Comment on above: Order Comment: Speci men Type: BLOOD SPECIMENOrdering Facility: [facility] Address: [address] [place] [address] Performed By: #### 5 7021-8 ####[facility] LABORATORYCLIA [id number] [address] Platelet mean volume (Bld) [Entitic vol] 10.8 fL Normal 9.0-12.7 [facility] Comment on above: Order Comment: Speci men Type: BLOOD SPECIMENOrdering Facility: [facility] Address: [address] [place] [address] Performed By: #### 5 7021-8 ####[facility] LABORATORYCLIA [id number] [address] [place] Platelets (Bld) [#/Vol] 255 10*3/uL Normal 150-400 [facility] Comment on above: Order Comment: Speci men Type: BLOOD SPECIMENOrdering Facility: [facility] Address: [address] [place] [address] Performed By: #### 5 7021-8 ####[facility] LABORATORYCLIA [id number] [place] [address] [place] RBC (Bld) [#/Vol] 3.31 10*6/uL Low 3.90-5.20 [facility] Comment on above: Order Comment: Speci men Type: BLOOD SPECIMENOrdering Facility: [facility] Address: [address] [place] [address] Performed By: #### 5 7021-8 ####[facility] LABORATORYCLIA [id number] [place] [address] [place] WBC (Bld) [#/Vol] 12.85 10*3/uL High 3.70-11.00 [facility] Comment on above: Order Comment: Speci men Type: BLOOD SPECIMENOrdering Facility: [facility] Address: [address] [place] [address] Performed By: #### 5 7021-8 ####[facility] LABORATORYCLIA [id number] [address] [place] CONSULTon 07-23-2022 CONSULT Normal [facility] ECG COMPLETEon 07-23-2022 ECG COMPLETE Normal [facility] ED NOTEon 07-23-2022 ED NOTE Normal [facility] ED NOTE HNO ID: [id number] Author: Ivon Voss RN Service: Emergency Medicine Author Type: Registered Nurse Type: ED Notes Filed: 07/23/2022 2:12 PM Note Text: [facility] called to transport pt home. Eta is 1445 Normal [facility] ED NOTE Normal [facility] ED PROV NOTEon 07-23-2022 ED PROV NOTE Normal [facility] ED PROV NOTE Normal [facility] CASE MANAGEMon 07-20-2022 CASE MANAGEM Normal [facility] Basic metabolic 2000 panelon 07-19-2022 Anion gap [Moles/Vol] 10 mmol/L Normal 9-18 [facility] Comment on above: Order Comment: Speci men Type: BLOOD SPECIMENOrdering Facility: [facility] Address: [address] [place] [address] Performed By: #### 2 4321-2 ####[facility] LABORATORYCLIA [id number] [place] [address] [place] Calcium [Mass/Vol] 9.3 mg/dL Normal 8.5-10.2 [facility] Comment on above: Order Comment: Speci men Type: BLOOD SPECIMENOrdering Facility: [facility] Address: [address] [place] [address] Performed By: #### 2 4321-2 ####[facility] LABORATORYCLIA [id number] [place] [address] [place] Chloride [Moles/Vol] 101 mmol/L Normal 97-105 [facility] Comment on above: Order Comment: Speci men Type: BLOOD SPECIMENOrdering Facility: [facility] Address: [address] [place] [address] Performed By: #### 2 4321-2 ####[facility] LABORATORYCLIA [id number] [place] [address] [place] CO2 [Moles/Vol] 30 mmol/L Normal 22-30 [facility] Comment on above: Order Comment: Speci men Type: BLOOD SPECIMENOrdering Facility: [facility] Address: [address] [address] Performed By: #### 2 4321-2 ####[facility] LABORATORYCLIA [id number] [place] [address] [place] Creatinine [Mass/Vol] 0.78 mg/dL Normal 0.58-0.96 [facility] Comment on above: Order Comment: Speci men Type: BLOOD SPECIMENOrdering Facility: [facility] Address: [address] [address] Performed By: #### 2 4321-2 ####[facility] LABORATORYCLIA [id number] [place] [address] [place] ESTIMATED GLOMERULAR FILTRATION RATE 88 mL/min/1.73m??? Normal >=60 [facility] Comment on above: Order Comment: Leobardofredy mosley Type: BLOOD SPECIMENOrdering Facility: [facility] Address: [address] [place] [address] Result Comment: Manasa mated Glomerular Filtration Rate [...] actual GFR. Performed By: #### 2 4321-2 ####[facility] LABORATORYCLIA [id number] [place] [address] [place] Glucose [Mass/Vol] 148 mg/dL High 74-99 [facility] Comment on above: Order Comment: Tawanda mosley Type: BLOOD SPECIMENOrdering Facility: [facility] Address: [address] [place] [address] Result Comment: The [place] [employer] (ADA) provides guidance for cutoff [...] Standards of Medical Care in Diabetes 2016, [place] [employer]. Diabetes Care. 2016.39(Suppl 1). Performed By: #### 2 4321-2 ####[facility] LABORATORYCLIA [id number] [place] [id number] [place] Potassium [Moles/Vol] 4.1 mmol/L Normal 3.7-5.1 [facility] Comment on above: Order Comment: Speci men Type: BLOOD SPECIMENOrdering Facility: [facility] Address: [address] [place] [address] Performed By: #### 2 4321-2 ####[facility] LABORATORYCLIA [id number] [address] [place] [facility] Sodium [Moles/Vol] 141 mmol/L Normal 136-144 [facility] Comment on above: Order Comment: Speci men Type: BLOOD SPECIMENOrdering Facility: [facility] Address: [address] [address] Performed By: #### 2 4321-2 ####[facility] LABORATORYCLIA [id number] [address] STATES OF [facility] Urea nitrogen [Mass/Vol] 16 mg/dL Normal 7-21 [facility] Comment on above: Order Comment: Speci men Type: BLOOD SPECIMENOrdering Facility: [facility] Address: [address] [place] [address] Performed By: #### 2 4321-2 ####[facility] LABORATORYCLIA [id number] [address] OF [facility] CASE MANAGEMon 07-19-2022 CASE MANAGEM Normal [facility] CBC panel Auto (Bld)on 07-19 Erythrocyte distribution width (RBC) [Ratio] 13.3 % Normal 11.5-15.0 [facility] Comment on above: Order Comment: Speci men Type: BLOOD SPECIMENOrdering Facility: [facility] Address: [address] [address] Performed By: #### 5 8410-2 ####[facility] LABORATORYCLIA [id number] [address] Hematocrit (Bld) [Volume fraction] 36.2 % Normal 36.0-46.0 [facility] Comment on above: Order Comment: Speci men Type: BLOOD SPECIMENOrdering Facility: [facility] Address: [address] [place] [address] Performed By: #### 5 8410-2 ####[facility] LABORATORYCLIA [id number] [address] Hemoglobin (Bld) [Mass/Vol] 11.3 g/dL Low 11.5-15.5 [facility] Comment on above: Order Comment: Speci men Type: BLOOD SPECIMENOrdering Facility: [facility] Address: [address] [place] [address] Performed By: #### 5 8410-2 ####[facility] LABORATORYCLIA [id number] [address] MCH (RBC) [Entitic mass] 29.4 pg Normal 26.0-34.0 [facility] Comment on above: Order Comment: Speci men Type: BLOOD SPECIMENOrdering Facility: [facility] Address: [address] [place] [address] Performed By: #### 5 8410-2 ####[facility] LABORATORYCLIA [id number] [address] MCHC (RBC) [Mass/Vol] 31.2 g/dL Normal 30.5-36.0 [facility] Comment on above: Order Comment: Speci men Type: BLOOD SPECIMENOrdering Facility: [facility] Address: [address] [place] [address] Performed By: #### 5 8410-2 ####[facility] LABORATORYCLIA [id number] [address] MCV (RBC) [Entitic vol] 94.3 fL Normal 80.0-100.0 [facility] Comment on above: Order Comment: Speci men Type: BLOOD SPECIMENOrdering Facility: [facility] Address: [address] [place] [address] Performed By: #### 5 8410-2 ####[facility] LABORATORYCLIA [id number] [address] Nucleated RBC (Bld) [#/Vol] 10*3/uL Normal <0.01 [facility] Comment on above: Order Comment: Speci men Type: BLOOD SPECIMENOrdering Facility: [facility] Address: [address] [address] Performed By: #### 5 8410-2 ####[facility] LABORATORYCLIA [id number] [address] [place] Platelet mean volume (Bld) [Entitic vol] 10.9 fL Normal 9.0-12.7 [facility] Comment on above: Order Comment: Speci men Type: BLOOD SPECIMENOrdering Facility: [facility] Address: [address] [address] Performed By: #### 5 8410-2 ####[facility] LABORATORYCLIA [id number] [address] [place] Platelets (Bld) [#/Vol] 261 10*3/uL Normal 150-400 [facility] Comment on above: Order Comment: Speci men Type: BLOOD SPECIMENOrdering Facility: [facility] Address: [address] [address] Performed By: #### 5 8410-2 ####[facility] LABORATORYCLIA [id number] [place] [address] [place] RBC (Bld) [#/Vol] 3.84 10*6/uL Low 3.90-5.20 [facility] Comment on above: Order Comment: Speci men Type: BLOOD SPECIMENOrdering Facility: [facility] Address: [address] [address] Performed By: #### 5 8410-2 ####[facility] LABORATORYCLIA [id number] [address] [place] WBC (Bld) [#/Vol] 13.24 10*3/uL High 3.70-11.00 [facility] Comment on above: Order Comment: Speci men Type: BLOOD SPECIMENOrdering Facility: [facility] Address: [address] [place] [address] Performed By: #### 5 8410-2 ####[facility] LABORATORYCLIA [id number] [place] [address] [place] CNDSon 07-19-2022 CNDS Normal [facility] CONSULT PROGon 07-19-2022 CONSULT PROG Normal [facility] THERAPY NTon 07-19-2022 THERAPY NT Normal [facility] Basic metabolic 2000 panelon 07-18-2022 Anion gap [Moles/Vol] 7 mmol/L Low 9-18 [facility] Comment on above: Order Comment: Speci men Type: BLOOD SPECIMENOrdering Facility: [facility] Address: [address] [place] [address] Performed By: #### 2 4321-2 ####[facility] LABORATORYCLIA [id number] [place] [address] [place] Calcium [Mass/Vol] 9.5 mg/dL Normal 8.5-10.2 [facility] Comment on above: Order Comment: Speci men Type: BLOOD SPECIMENOrdering Facility: [facility] Address: [address] [place] [address] Performed By: #### 2 4321-2 ####[facility] LABORATORYCLIA [id number] [place] [address] [place] Chloride [Moles/Vol] 103 mmol/L Normal 97-105 [facility] Comment on above: Order Comment: Speci men Type: BLOOD SPECIMENOrdering Facility: [facility] Address: [address] [place] [address] Performed By: #### 2 4321-2 ####[facility] LABORATORYCLIA [id number] [place] [address] [place] CO2 [Moles/Vol] 30 mmol/L Normal 22-30 [facility] Comment on above: Order Comment: Speci men Type: BLOOD SPECIMENOrdering Facility: [facility] Address: [address] [place] [address] Performed By: #### 2 4321-2 ####[facility] LABORATORYCLIA [id number] [place] [address] [place] Creatinine [Mass/Vol] 0.69 mg/dL Normal 0.58-0.96 [facility] Comment on above: Order Comment: Leobardofredy mosley Type: BLOOD SPECIMENOrdering Facility: [facility] Address: [address] [address] Performed By: #### 2 4321-2 ####[facility] LABORATORYCLIA [id number] [address] OF [facility] ESTIMATED GLOMERULAR FILTRATION RATE 101 mL/min/1.73m??? Normal >=60 [facility] Comment on above: Order Comment: Tawanda mosley Type: BLOOD SPECIMENOrdering Facility: [facility] Address: [address] [place] [address] Result Comment: Manasa mated Glomerular Filtration Rate [...] actual GFR. Performed By: #### 2 4321-2 ####[facility] LABORATORYCLIA [id number] [place] [address] [place] Glucose [Mass/Vol] 156 mg/dL High 74-99 [facility] Comment on above: Order Comment: Tawanda melany Type: BLOOD SPECIMENOrdering Facility: [facility] Address: [address] [place] [address] Result Comment: The [place] [employer] (ADA) provides guidance for cutoff [...] Standards of Medical Care in Diabetes 2016, [place] [employer]. Diabetes Care. 2016.39(Suppl 1). Performed By: #### 2 4321-2 ####[facility] LABORATORYCLIA [id number] [address] [place] [facility] Potassium [Moles/Vol] 3.9 mmol/L Normal 3.7-5.1 [facility] Comment on above: Order Comment: Speci men Type: BLOOD SPECIMENOrdering Facility: [facility] Address: [address] [place] [address] Performed By: #### 2 4321-2 ####[facility] LABORATORYCLIA [id number] [address] STATES OF [facility] Sodium [Moles/Vol] 140 mmol/L Normal 136-144 [facility] Comment on above: Order Comment: Speci men Type: BLOOD SPECIMENOrdering Facility: [facility] Address: [address] [place] [address] Performed By: #### 2 4321-2 ####[facility] LABORATORYCLIA [id number] [address] Urea nitrogen [Mass/Vol] 14 mg/dL Normal 7-21 [facility] Comment on above: Order Comment: Speci men Type: BLOOD SPECIMENOrdering Facility: [facility] Address: [address] [place] [address] Performed By: #### 2 4321-2 ####[facility] LABORATORYCLIA [id number] [address] CBC panel Auto (Bld)on 07-18 Erythrocyte distribution width (RBC) [Ratio] 13.1 % Normal 11.5-15.0 [facility] Comment on above: Order Comment: Speci men Type: BLOOD SPECIMENOrdering Facility: [facility] Address: [address] [place] [address] Performed By: #### 5 8410-2 ####[facility] LABORATORYCLIA [id number] [address] OF [facility] Hematocrit (Bld) [Volume fraction] 33.7 % Low 36.0-46.0 [facility] Comment on above: Order Comment: Speci men Type: BLOOD SPECIMENOrdering Facility: [facility] Address: [address] [place] [address] Performed By: #### 5 8410-2 ####[facility] LABORATORYCLIA [id number] [address] STATES OF [facility] Hemoglobin (Bld) [Mass/Vol] 10.9 g/dL Low 11.5-15.5 [facility] Comment on above: Order Comment: Speci men Type: BLOOD SPECIMENOrdering Facility: [facility] Address: [address] [place] [address] Performed By: #### 5 8410-2 ####[facility] LABORATORYCLIA [id number] [address] STATES OF [facility] MCH (RBC) [Entitic mass] 29.8 pg Normal 26.0-34.0 [facility] Comment on above: Order Comment: Speci men Type: BLOOD SPECIMENOrdering Facility: [facility] Address: [address] [place] [address] Performed By: #### 5 8410-2 ####[facility] LABORATORYCLIA [id number] [address] MCHC (RBC) [Mass/Vol] 32.3 g/dL Normal 30.5-36.0 [facility] Comment on above: Order Comment: Speci men Type: BLOOD SPECIMENOrdering Facility: [facility] Address: [address] [place] [address] Performed By: #### 5 8410-2 ####[facility] LABORATORYCLIA [id number] [address] [place] MCV (RBC) [Entitic vol] 92.1 fL Normal 80.0-100.0 [facility] Comment on above: Order Comment: Speci men Type: BLOOD SPECIMENOrdering Facility: [facility] Address: [address] [place] [address] Performed By: #### 5 8410-2 ####[facility] LABORATORYCLIA [id number] [address] [place] Nucleated RBC (Bld) [#/Vol] 10*3/uL Normal <0.01 [facility] Comment on above: Order Comment: Speci men Type: BLOOD SPECIMENOrdering Facility: [facility] Address: [address] [place] [address] Performed By: #### 5 8410-2 ####[facility] LABORATORYCLIA [id number] [address] [place] Platelet mean volume (Bld) [Entitic vol] 11.0 fL Normal 9.0-12.7 [facility] Comment on above: Order Comment: Speci men Type: BLOOD SPECIMENOrdering Facility: [facility] Address: [address] [place] [address] Performed By: #### 5 8410-2 ####[facility] LABORATORYCLIA [id number] [address] [place] Platelets (Bld) [#/Vol] 246 10*3/uL Normal 150-400 [facility] Comment on above: Order Comment: Speci men Type: BLOOD SPECIMENOrdering Facility: [facility] Address: [address] [place] [address] Performed By: #### 5 8410-2 ####[facility] LABORATORYCLIA [id number] [address] [place] RBC (Bld) [#/Vol] 3.66 10*6/uL Low 3.90-5.20 [facility] Comment on above: Order Comment: Speci men Type: BLOOD SPECIMENOrdering Facility: [facility] Address: [address] [place] [address] Performed By: #### 5 8410-2 ####[facility] LABORATORYCLIA [id number] [address] [place] WBC (Bld) [#/Vol] 12.88 10*3/uL High 3.70-11.00 [facility] Comment on above: Order Comment: Speci men Type: BLOOD SPECIMENOrdering Facility: [facility] Address: [address] [address] Performed By: #### 5 8410-2 ####[facility]ORATORYCLIA [id number] [address] STATES OF [facility] Basic metabolic 2000 panelon 07-17-2022 Anion gap [Moles/Vol] 9 mmol/L Normal 9-18 [facility] Comment on above: Order Comment: Speci men Type: BLOOD SPECIMENOrdering Facility: [facility] Address: [address] [place] [address] Performed By: #### 2 4321-2 ####[facility]ORATORYCLIA [id number] [place] [address] [place] Calcium [Mass/Vol] 9.4 mg/dL Normal 8.5-10.2 [facility] Comment on above: Order Comment: Speci men Type: BLOOD SPECIMENOrdering Facility: [facility] Address: [address] [place] [address] Performed By: #### 2 4321-2 ####[facility] LABORATORYCLIA [id number] [address] [place] Chloride [Moles/Vol] 99 mmol/L Normal 97-105 [facility] Comment on above: Order Comment: Speci men Type: BLOOD SPECIMENOrdering Facility: [facility] Address: [address] [place] [address] Performed By: #### 2 4321-2 ####[facility]ORATORYCLIA [id number] [address] [place] CO2 [Moles/Vol] 30 mmol/L Normal 22-30 [facility] Comment on above: Order Comment: Speci men Type: BLOOD SPECIMENOrdering Facility: [facility] Address: [address] [place] [address] Performed By: #### 2 4321-2 ####[facility] LABORATORYCLIA [id number] [place] [address] [place] Creatinine [Mass/Vol] 0.66 mg/dL Normal 0.58-0.96 [facility] Comment on above: Order Comment: Tawanda mosley Type: BLOOD SPECIMENOrdering Facility: [facility] Address: [address] [place] [address] Performed By: #### 2 4321-2 ####[facility] LABORATORYCLIA [id number] [address] [place] ESTIMATED GLOMERULAR FILTRATION RATE 102 mL/min/1.73m??? Normal >=60 [facility] Comment on above: Order Comment: Tawanda mosley Type: BLOOD SPECIMENOrdering Facility: [facility] Address: [address] [place] [address] Result Comment: Manasa mated Glomerular Filtration Rate [...] actual GFR. Performed By: #### 2 4321-2 ####[facility] LABORATORYCLIA [id number] [place] [address] [place] Glucose [Mass/Vol] 202 mg/dL High 74-99 [facility] Comment on above: Order Comment: Tawanda mosley Type: BLOOD SPECIMENOrdering Facility: [facility] Address: [address] [place] [address] Result Comment: The [place] [employer] (ADA) provides guidance for cutoff [...] Standards of Medical Care in Diabetes 2016, [place] [employer]. Diabetes Care. 2016.39(Suppl 1). Performed By: #### 2 4321-2 ####[facility]ORATORYCLIA [id number] [address] [place] Potassium [Moles/Vol] 4.2 mmol/L Normal 3.7-5.1 [facility] Comment on above: Order Comment: Speci men Type: BLOOD SPECIMENOrdering Facility: [facility] Address: [address] [place] [address] Performed By: #### 2 4321-2 ####[facility] LABORATORYCLIA [id number] [address] [place] Sodium [Moles/Vol] 138 mmol/L Normal 136-144 [facility] Comment on above: Order Comment: Speci men Type: BLOOD SPECIMENOrdering Facility: [facility] Address: [address] [place] [address] Performed By: #### 2 4321-2 ####[facility] LABORATORYCLIA [id number] [address] STATES OF [facility] Urea nitrogen [Mass/Vol] 13 mg/dL Normal 7-21 [facility] Comment on above: Order Comment: Speci men Type: BLOOD SPECIMENOrdering Facility: [facility] Address: [address] [place] [address] Performed By: #### 2 4321-2 ####[facility] LABORATORYCLIA [id number] [address] [place] CASE MGT INIT ASSESon 2022 CASE MGT INIT ASSES Normal [facility] CBC panel Auto (Bld)on 07-17 Erythrocyte distribution width (RBC) [Ratio] 12.5 % Normal 11.5-15.0 [facility] Comment on above: Order Comment: Speci men Type: BLOOD SPECIMENOrdering Facility: [facility] Address: [address] [place] [address] Performed By: #### 5 8410-2 ####[facility] LABORATORYCLIA [id number] [address] [place] Hematocrit (Bld) [Volume fraction] 32.1 % Low 36.0-46.0 [facility] Comment on above: Order Comment: Speci men Type: BLOOD SPECIMENOrdering Facility: [facility] Address: [address] [place] [address] Performed By: #### 5 8410-2 ####[facility] LABORATORYCLIA [id number] [address] STATES OF [facility] Hemoglobin (Bld) [Mass/Vol] 10.8 g/dL Low 11.5-15.5 [facility] Comment on above: Order Comment: Speci men Type: BLOOD SPECIMENOrdering Facility: [facility] Address: [address] [place] [address] Performed By: #### 5 8410-2 ####[facility] LABORATORYCLIA [id number] [address] STATES [place] MCH (RBC) [Entitic mass] 30.3 pg Normal 26.0-34.0 [facility] Comment on above: Order Comment: Speci men Type: BLOOD SPECIMENOrdering Facility: [facility] Address: [address] [place] [address] Performed By: #### 5 8410-2 ####[facility] LABORATORYCLIA [id number] [address] [place] MCHC (RBC) [Mass/Vol] 33.6 g/dL Normal 30.5-36.0 [facility] Comment on above: Order Comment: Speci men Type: BLOOD SPECIMENOrdering Facility: [facility] Address: [address] [place] [address] Performed By: #### 5 8410-2 ####[facility] LABORATORYCLIA [id number] [address] [place] MCV (RBC) [Entitic vol] 89.9 fL Normal 80.0-100.0 [facility] Comment on above: Order Comment: Speci men Type: BLOOD SPECIMENOrdering Facility: [facility] Address: [address] [place] [address] Performed By: #### 5 8410-2 ####[facility] LABORATORYCLIA [id number] [address] STATES [place] Nucleated RBC (Bld) [#/Vol] 10*3/uL Normal <0.01 [facility] Comment on above: Order Comment: Speci men Type: BLOOD SPECIMENOrdering Facility: [facility] Address: [address] [place] [address] Performed By: #### 5 8410-2 ####[facility] LABORATORYCLIA [id number] [address] [place] Platelet mean volume (Bld) [Entitic vol] 10.9 fL Normal 9.0-12.7 [facility] Comment on above: Order Comment: Speci men Type: BLOOD SPECIMENOrdering Facility: [facility] Address: [address] [place] [address] Performed By: #### 5 8410-2 ####[facility] LABORATORYCLIA [id number] [address] Platelets (Bld) [#/Vol] 248 10*3/uL Normal 150-400 [facility] Comment on above: Order Comment: Speci men Type: BLOOD SPECIMENOrdering Facility: [facility] Address: [address] [place] [address] Performed By: #### 5 8410-2 ####[facility]ORATORYCLIA [id number] [address] [place] RBC (Bld) [#/Vol] 3.57 10*6/uL Low 3.90-5.20 [facility] Comment on above: Order Comment: Speci men Type: BLOOD SPECIMENOrdering Facility: [facility] Address: [address] [place] [address] Performed By: #### 5 8410-2 ####[facility]ORATORYCLIA [id number] [address] [place] WBC (Bld) [#/Vol] 19.60 10*3/uL High 3.70-11.00 [facility] Comment on above: Order Comment: Speci men Type: BLOOD SPECIMENOrdering Facility: [facility] Address: [facility] [address] [place] [address] Performed By: #### 5 8410-2 ####[facility] LABORATORYCLIA [id number] [place] [address] [place] THERAPY NTon 07-17-2022 THERAPY NT Normal [facility] THERAPY NT Normal [facility] ALLIED HEALTHon 07-16-2022 ALLIED HEALTH Normal [facility] ALLIED HEALTH Normal [facility] ANES POSTPROC EVALon 023 ANES POSTPROC EVAL Normal [facility] ANES PRE-OPon 07-16-2022 ANES PRE-OP Normal [facility] BRIEF OP NOTon 07-16-2022 BRIEF OP NOT Normal [facility] Bacteria Spec Anaerobe Culto n 07-16-2022 Bacteria identified Anaer cx Nom (Unsp spec) Negative [facility] Comment on above: Performed By: #### 1 1475-1, 6462-6, 635-3 ####[facility] LABORATORYCLIA [id number] [place] [address] [place] Bacteria identified Anaer cx Nom (Unsp spec) Negative [facility] Comment on above: Performed By: #### 1 1475-1, 6462-6, 635-3 ####[facility]ORATORYCLIA [id number] [place] [address] [place] Bacteria identified Anaer cx Nom (Unsp spec) Negative [facility] Comment on above: Performed By: #### 1 1475-1, 635-3, 6462-6 ####[facility] LABORATORYCLIA [id number] [place] [address] [place] Bacteria Wnd Culton 07-16-19 23 Bacteria identified Cx Nom (Wound) CULTURE, WOUND: No growth GRAM STAIN: No cells or organisms seen [facility] Comment on above: Performed By: #### 1 1475-1, 6462-6, 635-3 ####[facility]ATORYCLIA [id number] [place], [place] [id number] [place] [address] [place] Bacteria identified Cx Nom (Wound) CULTURE, WOUND: No growth GRAM STAIN: No organisms seen No Polymorphonuclear Leukocytes Normal [facility] Comment on above: Performed By: #### 1 1475-1, 6462-6, 635-3 ####[facility]ATORYCLIA [id number] [place], [place] [id number] [place] [address] Bacteria identified Cx Nom (Wound) CULTURE, WOUND: No growth GRAM STAIN: No organisms seen Moderate Polymorphonuclear leukocytes Normal [facility] Comment on above: Performed By: #### 1 1475-1, 6462-6, 635-3 ####[facility]ORATORYCLIA [id number] [address] Bacteria identified Cx Nom (Wound) CULTURE, WOUND: No growth GRAM STAIN: No organisms seen Rare Polymorphonuclear leukocytes Normal [facility] Comment on above: Performed By: #### 1 1475-1, 635-3, 6462-6 ####[facility]ORATORYCLIA [id number] [address] STATES [place] Basic metabolic 2000 panelon 07-16-2022 Anion gap [Moles/Vol] 10 mmol/L Normal 9-18 [facility] Comment on above: Order Comment: Speci men Type: BLOOD SPECIMENOrdering Facility: [facility] Address: [address] [place] [address] Performed By: #### 2 4321-2 ####[facility]ORATORYCLIA [id number] [address] [place] Calcium [Mass/Vol] 8.7 mg/dL Normal 8.5-10.2 [facility] Comment on above: Order Comment: Speci men Type: BLOOD SPECIMENOrdering Facility: [facility] Address: [address] [place] [address] Performed By: #### 2 4321-2 ####[facility]ORATORYCLIA [id number] [address] [place] Chloride [Moles/Vol] 101 mmol/L Normal 97-105 [facility] Comment on above: Order Comment: Speci men Type: BLOOD SPECIMENOrdering Facility: [facility] Address: [address] [place] [address] Performed By: #### 2 4321-2 ####[facility]ORATORYCLIA [id number] [address] STATES OF [facility] CO2 [Moles/Vol] 27 mmol/L Normal 22-30 [facility] Comment on above: Order Comment: Speci men Type: BLOOD SPECIMENOrdering Facility: [facility] Address: [address] [place] [address] Performed By: #### 2 4321-2 ####[facility]ORATORYCLIA [id number] [address] Creatinine [Mass/Vol] 0.74 mg/dL Normal 0.58-0.96 [facility] Comment on above: Order Comment: Speci men Type: BLOOD SPECIMENOrdering Facility: [facility] Address: [address] [place] [address] Performed By: #### 2 4321-2 ####[facility]ORATORYCLIA [id number] [address] ESTIMATED GLOMERULAR FILTRATION RATE 94 mL/min/1.73m??? Normal >=60 [facility] Comment on above: Order Comment: Speci men Type: BLOOD SPECIMENOrdering Facility: [facility] Address: [address] [place] [address] Result Comment: Manasa mated Glomerular Filtration Rate [...] actual GFR. Performed By: #### 2 4321-2 ####[facility]ORATORYCLIA [id number] [address] Glucose [Mass/Vol] 143 mg/dL High 74-99 [facility] Comment on above: Order Comment: Speci men Type: BLOOD SPECIMENOrdering Facility: [facility] Address: [address] [place] [address] Result Comment: The [place] [employer] (ADA) provides guidance for cutoff [...] Standards of Medical Care in Diabetes 2016, [place] [employer]. Diabetes Care. 2016.39(Suppl 1). Performed By: #### 2 4321-2 ####[facility]ORATORYCLIA [id number] [place] [address] [place] Potassium [Moles/Vol] Normal [facility] Comment on above: Order Comment: Speci men Type: BLOOD SPECIMENOrdering Facility: [facility] Address: [address] [place] [address] Result Comment: Unab le to assay due to interference from hemolysis. Suggest reorder as clinically indicated. Performed By: #### 2 4321-2 ####[facility]ORATORYCLIA [id number] [place] [address] [place] Sodium [Moles/Vol] 138 mmol/L Normal 136-144 [facility] Comment on above: Order Comment: Speci men Type: BLOOD SPECIMENOrdering Facility: [facility] Address: [place] [address] Performed By: #### 2 4321-2 ####[facility]ORATORYCLIA [id number] [place] [address] [place] Urea nitrogen [Mass/Vol] 13 mg/dL Normal 7-21 [facility] Comment on above: Order Comment: Speci men Type: BLOOD SPECIMENOrdering Facility: [facility] Address: [address] [place] [address] Performed By: #### 2 4321-2 ####[facility] LABORATORYCLIA [id number] [place] [address] [place] Anion gap [Moles/Vol] 10 mmol/L Normal 9-18 [facility] Comment on above: Order Comment: Speci men Type: BLOOD SPECIMENOrdering Facility: [facility] Address: [address] [place] [address] Performed By: #### 2 157-6, 95051-6 ####[facility]ATORYCLIA [id number] [place] [address] [place] Calcium [Mass/Vol] 9.1 mg/dL Normal 8.5-10.2 [facility] Comment on above: Order Comment: Speci men Type: BLOOD SPECIMENOrdering Facility: [facility] Address: [address] [place] [address] Performed By: #### 2 157-6, 46836-2 ####[facility]ORATORYCLIA [id number] [place] [address] [place] Chloride [Moles/Vol] 102 mmol/L Normal 97-105 [facility] Comment on above: Order Comment: Speci men Type: BLOOD SPECIMENOrdering Facility: [facility] Address: [address] [place] [address] Performed By: #### 2 157-6, 89639-9 ####[facility]ORATORYCLIA [id number] [place] [address] [place] CO2 [Moles/Vol] 28 mmol/L Normal 22-30 [facility] Comment on above: Order Comment: Speci men Type: BLOOD SPECIMENOrdering Facility: [facility] Address: [address] [place] [address] Performed By: #### 2 157-6, 03453-3 ####[facility]ATORYCLIA [id number] [place] [address] [place] Creatinine [Mass/Vol] 0.83 mg/dL Normal 0.58-0.96 [facility] Comment on above: Order Comment: Tawanda mosley Type: BLOOD SPECIMENOrdering Facility: [facility] Address: [place] [address] Performed By: #### 2 157-6, 26226-1 ####[facility]ORATORYCLIA [id number] [place] [address] [facility] ESTIMATED GLOMERULAR FILTRATION RATE 82 mL/min/1.73m??? Normal >=60 [facility] Comment on above: Order Comment: Leobardofredy mosley Type: BLOOD SPECIMENOrdering Facility: [facility] Address: [place] [address] Result Comment: Manasa mated Glomerular Filtration Rate [...] actual GFR. Performed By: #### 2 157-6, 29275-4 ####[facility]ORATORYCLIA [id number] [place] [id number] [place] Glucose [Mass/Vol] 139 mg/dL High 74-99 [facility] Comment on above: Order Comment: Tawanda mosley Type: BLOOD SPECIMENOrdering Facility: [facility] Address: [place] [address] Result Comment: The [place] [employer] (ADA) provides guidance for cutoff [...] Standards of Medical Care in Diabetes 2016, [place] [employer]. Diabetes Care. 2016.39(Suppl 1). Performed By: #### 2 157-6, 17549-9 ####[facility]ORATORYCLIA [id number] [address] STATES OF [facility] Potassium [Moles/Vol] 3.8 mmol/L Normal 3.7-5.1 [facility] Comment on above: Order Comment: Speci men Type: BLOOD SPECIMENOrdering Facility: [facility] Address: [address] [place] [address] Performed By: #### 2 157-6, 08894-2 ####[facility]ORATORYCLIA [id number] [address] [place] [facility] Sodium [Moles/Vol] 140 mmol/L Normal 136-144 [facility] Comment on above: Order Comment: Speci men Type: BLOOD SPECIMENOrdering Facility: [facility] Address: [address] [place] [address] Performed By: #### 2 157-6, 66044-7 ####[facility]ATORYCLIA [id number] [address] [place] [facility] Urea nitrogen [Mass/Vol] 13 mg/dL Normal 7-21 [facility] Comment on above: Order Comment: Speci men Type: BLOOD SPECIMENOrdering Facility: [facility] Address: [address] [place] [address] Performed By: #### 2 157-6, 84491-5 ####[facility]ORATORYCLIA [id number] [address] [place] CBC W Auto Differential pane l (Bld)on 07-16-2022 Basophils (Bld) [#/Vol] 0.12 10*3/uL High <0.11 [facility] Comment on above: Order Comment: Speci men Type: BLOOD SPECIMENOrdering Facility: [facility] Address: [address] [place] [address] Performed By: #### 5 7021-8 ####[facility]ORATORYCLIA [id number] [address] [place] Basophils/100 WBC (Bld) 0.8 % Normal [facility] Comment on above: Order Comment: Speci men Type: BLOOD SPECIMENOrdering Facility: [facility] Address: [address] [place] [address] Performed By: #### 5 7021-8 ####[facility]ORATORYCLIA [id number] [address] Differential cell count method Nom (Bld) Auto Normal [facility] Comment on above: Order Comment: Speci men Type: BLOOD SPECIMENOrdering Facility: [facility] Address: [address] [place] [address] Performed By: #### 5 7021-8 ####[facility]ORATORYCLIA [id number] [address] [place] Eosinophils (Bld) [#/Vol] 0.29 10*3/uL Normal <0.46 [facility] Comment on above: Order Comment: Speci men Type: BLOOD SPECIMENOrdering Facility: [facility] Address: [address] [place] [address] Performed By: #### 5 7021-8 ####[facility]ATORYCLIA [id number] [address] Eosinophils/100 WBC (Bld) 2.0 % Normal [facility] Comment on above: Order Comment: Speci men Type: BLOOD SPECIMENOrdering Facility: [facility] Address: [address] [place] [address] Performed By: #### 5 7021-8 ####[facility]ATORYCLIA [id number] [address] [place] Erythrocyte distribution width (RBC) [Ratio] 12.9 % Normal 11.5-15.0 [facility] Comment on above: Order Comment: Speci men Type: BLOOD SPECIMENOrdering Facility: [facility] Address: [address] [place] [address] Performed By: #### 5 7021-8 ####[facility]ATORYCLIA [id number] [address] [place] Hematocrit (Bld) [Volume fraction] 38.1 % Normal 36.0-46.0 [facility] Comment on above: Order Comment: Speci men Type: BLOOD SPECIMENOrdering Facility: [facility] Address: [address] [place] [address] Performed By: #### 5 7021-8 ####[facility]ATORYCLIA [id number] [address] [place] Hemoglobin (Bld) [Mass/Vol] 12.5 g/dL Normal 11.5-15.5 [facility] Comment on above: Order Comment: Speci men Type: BLOOD SPECIMENOrdering Facility: [facility] Address: [address] [place] [address] Performed By: #### 5 7021-8 ####[facility]ORATORYCLIA [id number] [address] [place] Immature granulocytes (Bld) [#/Vol] 0.09 10*3/uL Normal <0.10 [facility] Comment on above: Order Comment: Speci men Type: BLOOD SPECIMENOrdering Facility: [facility] Address: [address] [place] [address] Performed By: #### 5 7021-8 ####[facility]ATORYCLIA [id number] [address] Immature granulocytes/100 WBC (Bld) 0.6 % Normal [facility] Comment on above: Order Comment: Speci men Type: BLOOD SPECIMENOrdering Facility: [facility] Address: [address] [place] [address] Performed By: #### 5 7021-8 ####[facility]ORATORYCLIA [id number] [address] [place] Lymphocytes (Bld) [#/Vol] 4.46 10*3/uL High 1.00-4.00 [facility] Comment on above: Order Comment: Speci men Type: BLOOD SPECIMENOrdering Facility: [facility] Address: [address] [place] [address] Performed By: #### 5 7021-8 ####[facility]ORATORYCLIA [id number] [address] Lymphocytes/100 WBC (Bld) 30.8 % Normal [facility] Comment on above: Order Comment: Speci men Type: BLOOD SPECIMENOrdering Facility: [facility] Address: [address] [place] [address] Performed By: #### 5 7021-8 ####[facility]ATORYCLIA [id number] [address] [place] MCH (RBC) [Entitic mass] 29.8 pg Normal 26.0-34.0 [facility] Comment on above: Order Comment: Speci men Type: BLOOD SPECIMENOrdering Facility: [facility] Address: [address] [place] [address] Performed By: #### 5 7021-8 ####[facility]ORATORYCLIA [id number] [address] [place] [facility] MCHC (RBC) [Mass/Vol] 32.8 g/dL Normal 30.5-36.0 [facility] Comment on above: Order Comment: Speci men Type: BLOOD SPECIMENOrdering Facility: [facility] Address: [address] [place] [address] Performed By: #### 5 7021-8 ####[facility]ORATORYCLIA [id number] [address] [place] MCV (RBC) [Entitic vol] 90.7 fL Normal 80.0-100.0 [facility] Comment on above: Order Comment: Speci men Type: BLOOD SPECIMENOrdering Facility: [facility] Address: [address] [place] [address] Performed By: #### 5 7021-8 ####[facility]ATORYCLIA [id number] [address] [place] Monocytes (Bld) [#/Vol] 1.21 10*3/uL High <0.87 [facility] Comment on above: Order Comment: Speci men Type: BLOOD SPECIMENOrdering Facility: [facility] Address: [address] [place] [address] Performed By: #### 5 7021-8 ####[facility]ORATORYCLIA [id number] [address] [place] Monocytes/100 WBC (Bld) 8.4 % Normal [facility] Comment on above: Order Comment: Speci men Type: BLOOD SPECIMENOrdering Facility: [facility] Address: [address] [place] [place] [address] Performed By: #### 5 7021-8 ####[facility]ORATORYCLIA [id number] [address] [place] Neutrophils (Bld) [#/Vol] 8.29 10*3/uL High 1.45-7.50 [facility] Comment on above: Order Comment: Speci men Type: BLOOD SPECIMENOrdering Facility: [facility] Address: [address] [place] [place] [address] Performed By: #### 5 7021-8 ####[facility]ATORYCLIA [id number] [address] Neutrophils/100 WBC (Bld) 57.4 % Normal [facility] Comment on above: Order Comment: Speci men Type: BLOOD SPECIMENOrdering Facility: [facility] Address: [address] [place] [address] Performed By: #### 5 7021-8 ####[facility]ORATORYCLIA [id number] [place] [address] [place] Nucleated RBC (Bld) [#/Vol] 10*3/uL Normal <0.01 [facility] Comment on above: Order Comment: Speci men Type: BLOOD SPECIMENOrdering Facility: [facility] Address: [address] [place] [address] Performed By: #### 5 7021-8 ####[facility]ORATORYCLIA [id number] [address] [place] Nucleated RBC/100 WBC (Bld) [Ratio] 0.0 /100 WBC Normal [facility] Comment on above: Order Comment: Speci men Type: BLOOD SPECIMENOrdering Facility: [facility] Address: [address] [place] [address] Performed By: #### 5 7021-8 ####[facility]ORATORYCLIA [id number] [place] [address] [place] Platelet mean volume (Bld) [Entitic vol] 10.5 fL Normal 9.0-12.7 [facility] Comment on above: Order Comment: Speci men Type: BLOOD SPECIMENOrdering Facility: [facility] Address: [address] [place] [address] Performed By: #### 5 7021-8 ####[facility]ORATORYCLIA [id number] [address] [place] Platelets (Bld) [#/Vol] 237 10*3/uL Normal 150-400 [facility] Comment on above: Order Comment: Speci men Type: BLOOD SPECIMENOrdering Facility: [facility] Address: [address] [place] [address] Performed By: #### 5 7021-8 ####[facility]ATORYCLIA [id number] [address] [place] RBC (Bld) [#/Vol] 4.20 10*6/uL Normal 3.90-5.20 [facility] Comment on above: Order Comment: Speci men Type: BLOOD SPECIMENOrdering Facility: [facility] Address: [address] [place] [address] Performed By: #### 5 7021-8 ####[facility]ORATORYCLIA [id number] [address] [place] WBC (Bld) [#/Vol] 14.46 10*3/uL High 3.70-11.00 [facility] Comment on above: Order Comment: Speci men Type: BLOOD SPECIMENOrdering Facility: [facility] Address: [address] [place] [address] Performed By: #### 5 7021-8 ####[facility]ORATORYCLIA [id number] [address] CBC panel Auto (Bld)on 07-16 Erythrocyte distribution width (RBC) [Ratio] 12.9 % Normal 11.5-15.0 [facility] Comment on above: Order Comment: Speci men Type: BLOOD SPECIMENOrdering Facility: [facility] Address: [address] [place] [address] Performed By: #### 5 8410-2 ####[facility]ORATORYCLIA [id number] [address] OF [facility] Hematocrit (Bld) [Volume fraction] 34.4 % Low 36.0-46.0 [facility] Comment on above: Order Comment: Speci men Type: BLOOD SPECIMENOrdering Facility: [facility] Address: [address] [place] [address] Performed By: #### 5 8410-2 ####[facility]ORATORYCLIA [id number] [address] [place] Hemoglobin (Bld) [Mass/Vol] 11.6 g/dL Normal 11.5-15.5 [facility] Comment on above: Order Comment: Speci men Type: BLOOD SPECIMENOrdering Facility: [facility] Address: [address] [place] [address] Performed By: #### 5 8410-2 ####[facility]ORATORYCLIA [id number] [address] [place] [facility] MCH (RBC) [Entitic mass] 30.5 pg Normal 26.0-34.0 [facility] Comment on above: Order Comment: Speci men Type: BLOOD SPECIMENOrdering Facility: [facility] Address: [address] [place] [address] Performed By: #### 5 8410-2 ####[facility]ORATORYCLIA [id number] [address] [place] MCHC (RBC) [Mass/Vol] 33.7 g/dL Normal 30.5-36.0 [facility] Comment on above: Order Comment: Speci men Type: BLOOD SPECIMENOrdering Facility: [facility] Address: [address] [place] [address] Performed By: #### 5 8410-2 ####[facility] LABORATORYCLIA [id number] [address] MCV (RBC) [Entitic vol] 90.5 fL Normal 80.0-100.0 [facility] Comment on above: Order Comment: Speci men Type: BLOOD SPECIMENOrdering Facility: [facility] Address: [address] [place] [address] Performed By: #### 5 8410-2 ####[facility] LABORATORYCLIA [id number] [address] [place] Platelet mean volume (Bld) [Entitic vol] 11.4 fL Normal 9.0-12.7 [facility] Comment on above: Order Comment: Speci men Type: BLOOD SPECIMENOrdering Facility: [facility] Address: [address] [place] [address] Performed By: #### 5 8410-2 ####[facility] LABORATORYCLIA [id number] [address] [place] Platelets (Bld) [#/Vol] 225 10*3/uL Normal 150-400 [facility] Comment on above: Order Comment: Speci men Type: BLOOD SPECIMENOrdering Facility: [facility] Address: [address] [address] Performed By: #### 5 8410-2 ####[facility]ORATORYCLIA [id number] [address] [place] RBC (Bld) [#/Vol] 3.80 10*6/uL Low 3.90-5.20 [facility] Comment on above: Order Comment: Speci men Type: BLOOD SPECIMENOrdering Facility: [facility] Address: [address] [place] [address] Performed By: #### 5 8410-2 ####[facility] LABORATORYCLIA [id number] [address] STATES OF [facility] WBC (Bld) [#/Vol] 10.77 10*3/uL Normal 3.70-11.00 [facility] Comment on above: Order Comment: Speci men Type: BLOOD SPECIMENOrdering Facility: [facility] Address: [address] [place] [address] Performed By: #### 5 8410-2 ####[facility] LABORATORYCLIA [id number] [address] OF [place] CK SerPl-cCncon 07-16-2022 CK [Catalytic activity/Vol] 466 U/L High 42-196 [facility] Comment on above: Order Comment: Speci men Type: BLOOD SPECIMENOrdering Facility: [facility] Address: [address] [place] [address] Performed By: #### 2 157-6, 50960-2 ####[facility]ORATORYCLIA [id number] [address] CONSULTon 07-16-2022 CONSULT Normal [facility] CONSULT [facility] CONSULT [facility] ED NOTEon 07-16-2022 ED NOTE HNO ID: [id number] Author: Pedro Pérez RN Service: ? Author Type: Registered Nurse Type: ED Notes Filed: 07/16/2022 6:36 AM Note Text: Bed: 22-ED Expected date: Expected time: Means of arrival: Comments: squad Normal [facility] ED NOTE HNO ID: [id number] Author: Tiffani Atwood RN Service: Emergency Medicine Author Type: Registered Nurse Type: ED Notes Filed: 07/16/2022 5:53 AM Note Text: Ortho paged for right shoulde x-ray order. Normal [facility] ED NOTE Normal [facility] ED NOTE HNO ID: [id number] Author: Tiffani Atwood RN Service: Emergency Medicine Author Type: Registered Nurse Type: ED Notes Filed: 07/16/2022 4:55 AM Note Text: X-ray notified Normal [facility] ED PROV NOTEon 07-16-2022 ED PROV NOTE Normal [facility] ESR Westergren method (Bld) [Velocity]on 07-16-2022 ESR (Bld) [Velocity] 18 mm/h Normal 0-20 [facility] Comment on above: Order Comment: Speci men Type: BLOOD SPECIMENOrdering Facility: [facility] Address: [address] [address] Performed By: #### 4 537-7 ####[facility] LABCLIA [id number] [address] [place] Lactate (Bld) [Moles/Vol]on 07-16-2022 Lactate [Moles/Vol] 2.0 mmol/L Normal 0.5-2.2 [facility] Comment on above: Order Comment: Speci men Type: BLOOD SPECIMENOrdering Facility: [facility] Address: [address] [place] [address] Performed By: #### 3 2693-4 ####[facility]ORATORYCLIA [id number] [address] OF [facility] Microorganism Spec Culton Microorganism identified Cx Nom (Unsp spec) CULTURE, FUNGAL: No Fungus isolated after 28 days FUNGAL SMEAR: No fungus seen [facility] Comment on above: Performed By: #### 1 1475-1, 6462-6, 635-3 ####[facility]ORATORYCLIA [id number] [address] Microorganism identified Cx Nom (Unsp spec) CULTURE, AFB: No Acid Fast Bacilli isolated after 42 days AFB STAIN: No acid fast bacilli seen by flurochrome stain [facility] Comment on above: Performed By: #### 1 1475-1, 6462-6, 635-3 ####[facility]ORATORYCLIA [id number] [address] Microorganism identified Cx Nom (Unsp spec) CULTURE, FUNGAL: No Fungus isolated after 28 days FUNGAL SMEAR: No fungus seen [facility] Comment on above: Performed By: #### 1 1475-1, 6462-6, 635-3 ####[facility]ORATORYCLIA [id number] [address] Microorganism identified Cx Nom (Unsp spec) CULTURE, AFB: No Acid Fast Bacilli isolated after 42 days AFB STAIN: No acid fast bacilli seen by flurochrome stain [facility] Comment on above: Performed By: #### 1 1475-1, 6462-6, 635-3 ####[facility]ATORYCLIA [id number] [address] Microorganism identified Cx Nom (Unsp spec) CULTURE, FUNGAL: No Fungus isolated after 28 days FUNGAL SMEAR: No fungus seen [facility] Comment on above: Performed By: #### 1 1475-1, 635-3, 6462-6 ####[facility]ATORYCLIA [id number] [address] Microorganism identified Cx Nom (Unsp spec) CULTURE, AFB: No Acid Fast Bacilli isolated after 42 days AFB STAIN: No acid fast bacilli seen by flurochrome stain [facility] Comment on above: Performed By: #### 1 1475-1, 635-3, 6462-6 ####[facility]ORATORYCLIA [id number] [address] OPERATIVE NOon 07-16-2022 OPERATIVE NO [facility] SARS-CoV-2 RNA Resp Ql RODERICK+p robeon 07-16-2022 SARS-CoV-2 (COVID-19) RNA RODERICK+probe Ql (Resp) COVID 19 RESULT: SARS-CoV-2 (Agent of COVID-19) Not Detected by RT-PCR or equivalent method. This test has been authorized by FDA under an Emergency Use Authorization (EUA). [facility] Comment on above: Performed By: #### 9 4500-6 ####[facility]ORATORYCLIA [id number] [address] XR FOREARM 2V AP/LAT RTon XR FOREARM 2V AP/LAT RT Normal [facility] XR SHLDR >/=3V AP/JOSÉ ANTONIO AP/OTH R RTon 07-16-2022 XR SHLDR >/=3V AP/JOSÉ ANTONIO AP/OTHR RT Normal [facility] XR WRIST 3V PA/LAT/OBL RTon 07-16-2022 XR WRIST 3V PA/LAT/OBL RT Normal [facility] ID - Travel Clinicon 019 ID - Travel Clinic Chief Complaint Patient presents here today for consult for traveling to [facility] December 31- January 18, 2019. History of Present Illness travel to [facility] and [place] all other vaccines from PCP malarone from PCP The patient plans to travel to the country([place]) of [facility]. The travel begins 12/31 and ends 01/18. [...] By: Jose Carlos Benton; 12/22/2018 2:30:21 PM Cephalexin 750 MG [...] By: Jose Carlos Benton; 12/22/2018 2:30:21 PM TEGretol-XR 400 MG Oral Tablet Extended Release 12 Hour; Take 1 tablet twice daily; Therapy: 22Dec2018 to Recorded Dispense: 0 Days ; #: Sufficient Tablet; Refill: 0; JEANETTE = N; Record; Last Updated By: Jose Carlos Benton; 12/22/2018 2:30:21 PM Vitals Vital Signs Recorded: 22Dec2018 02:28PM Heart Rate80 [id number] Diagnoses/Problems Counseling for travel (V65.49) (Z71.89) Orders Start: Azithromycin 250 MG Oral Tablet; TAKE 1 TABLET Daily as needed for travel related diarrhea for up to 3 days Rx By: Marcus Al; Dispense: 3 Days ; #:3 Tablet; Refill: 3;For: Counseling for travel; JEANETTE = N; Verified Transmission to [facility];3 Last Updated By:1 1,3 System, [employer];3 12/22/2018 2:1 1,3 51:3 1,3 05 PM3 Administer: Yellow fever vaccine; INJECT 1 ML Subcutaneous; To Be Done: For: Counseling for travel, Health Maintenance; Ordered By:1 1,2 Marcus lA;2 Effective Date: 1 Amended By: Marcus Al; Dec 22 2018 2:51 PM EST 2 Amended By: Marcus Al; Dec 22 2018 2:51 PM EST 3 Amended By: Marcus Al; Dec 22 2018 3:17 PM ESTProvider Impressions need YF they have everything else but atx for TD handouts given Signatures Electronically signed by : Marcus Al MD; Dec 22 2018 3:17PM EST (Author) Normal [employer] Vital Signs Date Time Vital Sign Value Performing Clinician Facility 12-29-2024 06:17-0400 Diastolic blood pressure 84 mm[Hg] Nida jameson MD Work Phone: [facility] 12-29-2024 06:17-0400 Heart rate 82 /min Nida Nobles MD Work Phone: [facility] 12-29-2024 06:17-0400 Respiratory rate 12 /min Nida Nobles MD Work Phone: [facility] 12-29-2024 06:17-0400 SaO2% (BldA) [Mass fraction] 97 % Nida Nobles MD Work Phone: [facility] 12-29-2024 06:17-0400 Systolic blood pressure 122 mm[Hg] Nida Nobles MD Work Phone: [facility] 12-29-2024 06:06-0400 Body temperature 98.01 [degF] Nida Nobles MD Work Phone: [employer] Comment on above: first temp since arrival 12-29-2024 03:03-0400 Body height 160 cm Nida Nobles MD Work Phone: [facility] 12-29-2024 03:03-0400 Body mass index (BMI) [Ratio] 29.23 kg/m2 Nida Nobles MD Work Phone: [facility] 12-29-2024 03:03-0400 Body weight 74.84 kg Nida Nobles MD Work Phone: [facility] 12-05-2023 14:10-0400 Blood Pressure Cuff Size JOSIE ONEIL MD [facility] 12-05-2023 14:10-0400 Blood Pressure Location JOSIE ONEIL MD [facility] 12-05-2023 14:10-0400 Blood Pressure Method JOSIE ONEIL MD [address] [place] [address] 12-05-2023 14:10-0400 Body temperature 98.24 [degF] JOSIE ONEIL MD [address] [place] [address] 12-05-2023 14:10-0400 Diastolic Blood Pressure Non-Invasive 59 mm[Hg] JOSIE ONEIL MD [address] [place] [address] 12-05-2023 14:10-0400 Heart rate 68 /min JOSIE ONEIL MD [address] [place] [address] 12-05-2023 14:10-0400 Reason For Taking VItal Signs JOSIE ONEIL MD [address] 12-05-2023 14:10-0400 Respiratory rate 18 /min JOSIE ONEIL MD [address] [place] [address] 12-05-2023 14:10-0400 Systolic Blood Pressure Non-Invasive 105 mm[Hg] JOSIE ONEIL MD [address] [place] [address] 12-05-2023 10:46-0400 Blood Pressure Cuff Size JOSIE ONEIL MD [address] [place] [address] 12-05-2023 10:46-0400 Blood Pressure Location JOSIE ONEIL MD [address] [place] [address] 12-05-2023 10:46-0400 Blood Pressure Method JOSIE ONEIL MD [address] [place] [address] 12-05-2023 10:46-0400 Body temperature 98.42 [degF] JOSIE ONEIL MD [address] [place] [address] 12-05-2023 10:46-0400 Diastolic Blood Pressure Non-Invasive 70 mm[Hg] JOSIE ONEIL MD [address] [place] [address] 12-05-2023 10:46-0400 Heart rate 64 /min JOSIE ONEIL MD [address] [place] [address] 12-05-2023 10:46-0400 Reason For Taking VItal Signs JOSIE ONEIL MD [address] [place] [address] 12-05-2023 10:46-0400 Respiratory rate 18 /min JOSIE ONEIL MD [address] [place] [address] 12-05-2023 10:46-0400 Systolic Blood Pressure Non-Invasive 112 mm[Hg] JOSIE ONEIL MD [address] 12-05-2023 06:31-0400 Blood Pressure Cuff Size JOSIE ONEIL MD [address] [place] [address] 12-05-2023 06:31-0400 Blood Pressure Location JOSIE ONEIL MD [address] [place] [address] 12-05-2023 06:31-0400 Blood Pressure Method JOSIE ONEIL MD [address] [place] [address] 12-05-2023 06:31-0400 Body temperature 98.24 [degF] JOSIE ONEIL MD [address] [place] [address] 12-05-2023 06:31-0400 Diastolic Blood Pressure Non-Invasive 63 mm[Hg] JOSIE ONEIL MD [address] [place] [address] 12-05-2023 06:31-0400 Heart rate 70 /min JOSIE ONEIL MD [address] [place] [address] 12-05-2023 06:31-0400 Reason For Taking VItal Signs JOSIE ONEIL MD [address] [place] [address] 12-05-2023 06:31-0400 Respiratory rate 18 /min JOSIE ONEIL MD [address] [place] [address] 12-05-2023 06:31-0400 Systolic Blood Pressure Non-Invasive 112 mm[Hg] JOSIE ONEIL MD [address] [place] [address] 12-04-2023 23:33-0400 Heart rate 75 /min JOSIE ONEIL MD [address] [place] [address] 12-04-2023 20:11-0400 Heart rate 76 /min JOSIE ONEIL MD [address] [place] [address] 12-04-2023 14:27-0400 Heart rate 75 /min JOSIE ONEIL MD [address] [place] [address] 12-02-2023 22:13-0400 Body height 160 cm JOSIE ONEIL MD [address] [place] [address] 12-02-2023 22:13-0400 Body weight 76.5 kg JOSIE ONEIL MD [address] [place] [address] 12-02-2023 22:13-0400 Body weight 29.88 kg/m2 JOSIE ONEIL MD [address] [place] [address] 12-02-2023 11:36-0400 Body height 160 cm JOSIE ONEIL MD [address] [place] [address] 12-02-2023 11:36-0400 Body weight 79.3 kg JOSIE ONEIL MD [address] [place] [address] 12-01-2023 18:50-0400 Diastolic Blood Pressure Non-Invasive 67 mm[Hg] LAVERN O'OLGA LIDIA DO [facility] 12-01-2023 18:50-0400 Heart rate 99 /min LAVERN O'OLGA LIDIA DO [facility] 12-01-2023 18:50-0400 Reason For Taking VItal Signs LAVERN O'OLGA LIDIA DO [facility] 12-01-2023 18:50-0400 Respiratory rate 18 /min LAVERN O'OLGA LIDIA DO [facility] 12-01-2023 18:50-0400 Systolic Blood Pressure Non-Invasive 98 mm[Hg] LAVERN O'OLGA LIDIA DO [facility] 12-01-2023 16:27-0400 Diastolic Blood Pressure Non-Invasive 68 mm[Hg] LAVERN O'OLGA LIDIA DO [facility] 12-01-2023 16:27-0400 Heart rate 90 /min LAVERN O'OLGA LIDIA DO [facility] 12-01-2023 16:27-0400 Reason For Taking VItal Signs LAVERN O'OLGA LIDIA DO [facility] 12-01-2023 16:27-0400 Respiratory rate 18 /min LAVERN O'OLGA LIDIA DO [facility] 12-01-2023 16:27-0400 Systolic Blood Pressure Non-Invasive 104 mm[Hg] LAVERN O'OLGA LIDIA DO [facility] 12-01-2023 14:21-0400 Diastolic Blood Pressure Non-Invasive 80 mm[Hg] LAVERN O'OLGA LIDIA DO [facility] 12-01-2023 14:21-0400 Heart rate 83 /min LAVERN O'OLGA LIDIA DO [facility] 12-01-2023 14:21-0400 Reason For Taking VItal Signs LAVERN O'OLGA LIDIA DO [facility] 12-01-2023 14:21-0400 Respiratory rate 18 /min LAVERN O'OLGA LIDIA DO [facility] 12-01-2023 14:21-0400 Systolic Blood Pressure Non-Invasive 125 mm[Hg] LAVERN O'OLGA LIDIA DO [facility] 12-01-2023 12:39-0400 Blood Pressure Location LAVERN O'OLGA LIDIA DO [facility] 12-01-2023 12:39-0400 Body temperature 97.88 [degF] LAVERN O'OLGA LIDIA DO [facility] 12-01-2023 12:39-0400 Body weight 73.1 kg LAVERN O'OLGA LIDIA DO [facility] 12-01-2023 12:39-0400 Heart rate 118 /min LAVERN SHIRLEY DO [facility] 05-13-2023 07:57-0400 Diastolic blood pressure 93 mm[Hg] Madeline Cazares MD Work Phone: [facility] 05-13-2023 07:57-0400 Heart rate 88 /min Madeline Cazares MD Work Phone: [facility] 05-13-2023 07:57-0400 Respiratory rate 16 /min Madeline Cazares MD Work Phone: [facility] 05-13-2023 07:57-0400 SaO2% (BldA) [Mass fraction] 95 % Madeline Cazares MD Work Phone: [facility] 05-13-2023 07:57-0400 Systolic blood pressure 134 mm[Hg] Madeline Cazares MD Work Phone: [facility] 05-13-2023 02:19-0400 Body temperature 98.1 [degF] Madeline Cazares MD Work Phone: [facility] 05-09-2023 02:36-0400 Body height 160 cm Madeline Cazares MD Work Phone: [facility] 05-09-2023 02:36-0400 Body mass index (BMI) [Ratio] 35.43 kg/m2 Madeline Cazares MD Work Phone: [facility] 05-09-2023 02:36-0400 Body weight 90.72 kg Madeline Cazares MD Work Phone: [facility] 08-05-2022 20:39-0500 SaO2% (BldA) [Mass fraction] 95 % [facility] Comment on above: Order Comment: Specimen Type: ARTERIAL B LOOD SPECIMENOrdering Facility: [facility] Address: [address] [place] [address] [place] [address] Performed By: #### A [facility] ####[facility]ORY[facility] [id number] [place] [address] [place] Encounters Encounter Date Encounter Type Care Provider Facility Start: 05-13-2025 ambulatory Tammy Karimi Faci lity:[facility] Start: 04-27-2025 End: 04-27-2025 ambulatory Sea Zamarripa Facility:[facility] Start: 02-15-2025 End: 02-15-2025 ambulatory Sea Zamarripa Facility:[facility] Start: 01-24-2025 End: 01-24-2025 Emergency department patient visit Tammy Karimi Facility:[facility] Start: 01-18-2025 ambulatory Gerard Irizarry Facility:[facility] Start: 01-17-2025 ambulatory Mona Moore Facility :[facility] Start: 01-17-2025 End: 01-22-2025 Evaluation and management of inpatient Tammy Karimi Facility:[facility] Start: 12-29-2024 End: 12-29-2024 Emergency department patient visit Nida Nobles MD Work Phone: [facility] Comment on above: Seizure (CMS/HCC V24 , CMS/HCC V28) (Primary Dx) Start: 12-29-2024 End: 12-29-2024 Evaluation and management of inpatient Nida Nobles MD Work Phone: [facility] Start: 12-22-2024 ambulatory Jt Morales Fac ility:[facility] Start: 12-22-2024 End: 12-27-2024 Evaluation and management of inpatient Tammy Karimi Facility:[facility] Start: 07-25-2024 End: 07-25-2024 ambulatory Levi Platt Facility:[facility] Start: 07-24-2024 End: 07-24-2024 Emergency department patient visit Tammy Karimi Facility:[facility] Start: 07-17-2024 End: 07-21-2024 Evaluation and management of inpatient Tammy Karimi Facility:[facility] Start: 07-17-2024 ambulatory Yola Garza Facility:[facility] Start: 07-01-2024 End: 07-01-2024 ambulatory Sea Zamarripa Facility:[facility] Start: 12-02-2023 End: 12-05-[address] TAMMY KARIMI MD Facility:[facility] Start: 12-02-2023 End: 12-05-2023 Observation JOSIE ONEIL MD [facility] Start: 12-01-2023 End: 12-01-2023 Emergency department patient visit LAVERN SHIRLEY DO [facility] Start: 10-07-2023 ambulatory JORDY QUINTEROS [facility] Start: 07-25-2023 End: 07-25-2023 ambulatory ANN JONES Facility:[facility] Start: 05-09-2023 End: 05-13-2023 Evaluation and management of inpatient MAGGI RUTLEDGE Facility:[facility] Start: 05-08-2023 End: 05-13-2023 Evaluation and management of inpatient Madeline Cazares MD Work Phone: [phone] Comment on above: Transient alteration of awareness Start: 11-11-2022 End: 11-12-2022 ambulatory EUGENE ESTRADAJose Facility:[facility] Start: 10-28-2022 End: 10-30-2022 ambulatory VADIM MARK [facility] Start: 10-26-2022 End: 10-27-2022 Emergency department patient visit YANDEL FONTANA [facility] Start: 10-20-2022 End: 10-20-2022 Emergency department patient visit RANI PAL [facility] Start: 10-05-2022 End: 10-14-2022 Evaluation and management of inpatient TAMMY KARIMI Facility:[facility] Start: 10-04-2022 End: 10-04-2022 ambulatory TAMMY KARIMI Facility:[facility] Start: 08-14-2022 End: 08-17-2022 Evaluation and management of inpatient TAMMY KARIMI Facility:[facility] Start: 08-13-2022 End: 08-13-2022 ambulatory ZAIDA CALLOWAY Facility:[facility] Start: 07-24-2022 End: 08-08-2022 Evaluation and management of inpatient TAMMY KARIMI Facility:[facility] Start: 07-23-2022 End: 07-23-2022 Emergency department patient visit TAMMY KARIMI Facility:[facility] Start: 07-16-2022 End: 07-20-2022 Evaluation and management of inpatient ZAIDA AQUINO Facility:[facility] Start: 11-17-2017 End: 11-17-2017 Patient encounter procedure [...] Work Phone: Start: 05-11-2023 EXTRA MICRO Yessy bose MD Work Phone: Start: 05-11-2023 URINALYSIS [...] Todd Muhammad MD Work Phone: Start: 05-09-2023 Culture bct [...] Adult Patients (1 - 1-dose 75+ series) [facility] Start: 05-08-2028 Lipid panel [facility] Start: 02-03-2025 DTaP,Tdap,and Td Vaccines (2 - Td or Tdap) DTaP,Tdap,and Td Vaccines (2 - Td or Tdap) [facility] Start: 02-03-2025 Tetanus vaccination TETANUS [facility] Start: 12-29-2024 Adolescent depressio n screening assessment Depression Screening [facility] Start: 12-29-2024 HIV screening HIV Screening [facility] Start: 12-29-2024 Screening for malignant neoplasm of colon Colorectal Cancer Screening: Colonoscopy [facility] Start: 12-29-2024 Social Influencers o f Health Screening Social Influencers of Health Screening [facility] Start: 04-20-2024 Pneumococcal Vaccine : 50+ Years (3 of 3 - PCV20 or PCV21) Pneumococcal Vaccine: 50+ Years (3 of 3 - PCV20 or PCV21) [facility] Start: 03-14-2024 COVID-19 Vaccine ( season) COVID-19 Vaccine ( season) [facility] Start: 03-14-2023 Influenza vaccination INFLUENZA VACC INE (#1) [facility] Start: 06-15-2019 Hepatitis B Vaccines (3 of 3 - 19+ 3-dose series) Hepatitis B Vaccines (3 of 3 - 19+ 3-dose series) [facility] Start: 07-03-2018 End: 07-03-2018 Ambulatory 07/03/2018 Rehab Services Visit Physical Therapy Tammy Karimi MD [address] [place], [place] [address] Alona Rivero, PT [address] [address] [facility] Start: 06-19-2018 End: 06-19-2018 Ambulatory 06/19/2018 Rehab Services Visit Physical Therapy Tammy Karimi MD [address] [place] [address] [phone] Alona Rivero, PT [address] [address] [facility] Start: 03-14-2018 Influenza vaccination INFLUENZA VACC INE (#1) [facility] Work Phone: Start: 2014 Protein mass conc COLON CANCER SCREENING DISCUSSION [facility] Work Phone: Start: 2014 Zoster vaccine hzv live for subcutaneous use ZOSTER (SHINGLES) VACCINE (1 of 2) [facility] Start: 2014 Zoster Vaccines (1 o f 2) Zoster Vaccines (1 of 2) [facility] Start: 2009 Screening for malignant neoplasm of colon COLORECTAL CANCER SCREENING DISCUSSION [facility] Start: 2004 Fasting lipid profile LIPID SCREENIN G [facility] Work Phone: Start: 2004 Protein mass conc MAMMOGRAM SC REENING DISCUSSION [facility] Work Phone: Start: 2004 Screening for malignant neoplasm of breast MAMMOGRAM SCREENING DISCUSSION [facility] Start: 1985 Screening for malignant neoplasm of cervix [facility] Start: 1983 Hepatitis A Vaccines (1 of 2 - Risk 2-dose series) Hepatitis A Vaccines (1 of 2 - Risk 2-dose series) [facility] Start: 1983 Third diphtheria, tetanus and acellular pertussis (DTaP) vaccination TDAP (ADULT) [facility] Work Phone: Start: 1982 Tetanus vaccination TETANUS [facility] Work Phone: Start: 1977 HIV screening HIV SCREENING DISCUSSION [facility] Work Phone: Start: 1964 COVID-19 VACCINE (#1) COVID-19 VACCI NE (#1) [facility] Start: 1964 Screening for malignant neoplasm of breast Breast Cancer Screening [facility] Start: 1964 Hepatitis C antibody , confirmatory test HEPATITIS C VIRUS SCREENING [facility] Work Phone: End: 05-08-2023 Standard ECG [facility] Comment on above: One Time for 1 Occur rences starting 05/08/2023 until 05/08/2023 End: 05-09-2023 Standard ECG ECG ECG Routine One Time for 1 Occurrences starting 05/09/2023 until 05/09/2023 [facility] Comment on above: One Time for 1 Occur rences starting 05/09/2023 until 05/09/2023 Immunizations Immunization Date Immunization Notes Care Provider [facility] hillke[facility] 04-14-2017 hepatitis A and hepatitis B vaccine Nida Nobles MD Work Phone: [employer] 06-20-2016 influenza virus vaccine, unspecified formulation Other Other [facility] Work Phone: Payers Date Payer Category Payer Commercial Indemnity [employer] [id number] 2024 Self-pay 2023 Unknown [id number] 2020 Private Health Insurance [id number] 2020 Private Health Insurance AENII Sherron JEANINE CHRISTIANSON [id number] 2020-Present [address] [place] [address] [id number]. [id number] 1964 Unknown [id number] 2.0.1.791449.3.579.2. 902 1964 Unknown [id number] 2.840.1.644417.3.579.2. 902 1964 Unknown [id number] 2.840.1.712087.3.579.2. 594 1964 Unknown [id number] 2.840.1.288490.3.579.2. 627 1964 Unknown [id number] 2.840.1.673218.3.579.2. 627 1964 Unknown [id number] 2.16.840.1.807216.3.579.2. 1143 Unknown [id number] 2.16.840.1.359485.3.579.2. 246 Unknown [id number] 2.16.840.1.534804.3.579.2. 462 Unknown [id number] 2.16.840.1.806475.3.579.2. 462 Unknown [id number] 2.16840.1.007295.3.579.2. 462 Unknown [id number] 2.16840.1.579908.3.579.2. 462 Unknown [id number] 2.840.1.585028.3.579.2. 462 Unknown [id number] 2.840.1.384809.3.579.2. 462 Unknown [id number] 2.840.1.850427.3.579.2. 462 Unknown [id number] 2.840.1.707446.3.579.2. 462 Unknown [id number] 2.840.1.935965.3.579.2. 462 Unknown [id number] 2.840.1.277619.3.579.2. 462 Unknown [id number] 2.840.1.454567.3.579.2. 462 Unknown [id number] 2.840.1.453183.3.579.2. 462 Unknown [id number] 2.840.1.007526.3.579.2. 462 Unknown [id number] 2.840.1.411042.3.579.2. 462 Unknown [id number] 2.16.840.1.508743.3.579.2. 462 Unknown [id number] 2.16.840.1.940323.3.579.2. 462 Unknown [id number] 2.840.1.631159.3.579.2. 462 Unknown [id number] 2.16.840.1.154793.3.579.2. 462 Unknown [id number] 2.16.840.1.350592.3.579.2. 462 Unknown [id number] 2.16.840.1.355660.3.579.2. 462 Unknown [id number] 2.16.840.1.921113.3.579.2. 462 Unknown [id number] 2.16.840.1.688675.3.579.2. 462 Unknown [id number] 2.16.840.1.550764.3.579.2. 462 Unknown [id number] 2.16.840.1.605669.3.579.2. 462 Unknown [id number] 2.16.840.1.082961.3.579.2. 462 Unknown [id number] 2.16.840.1.014665.3.579.2. 462 Unknown [id number] 2.16.840.1.950507.3.579.2. 462 Unknown [id number] 2.16.840.1.481097.3.579.2. 462 Social History Date Type Detail Facility Tobacco smoking stat us KYIS Unknown if ever smoked [facility] Work Phone: Start: 1965 Sex Assigned At Not on file O [facility] Work Phone: Start: 05-09-2023 End: 12-29-2024 Tobacco smoking status NHIS Never smoked tobacco [facility] Start: 05-09-2023 End: 12-29-2024 Tobacco use and exposure Smokeless tobacco non-user [facility] Start: 05-09-2023 Alcohol intake Current drinke r of alcohol (finding) [facility] Start: 05-09-2023 Alcohol intake [facility] Start: 05-09-2023 Tobacco use panel [facility] Start: 12-30-2017 Gender identity Identifies as female gender (finding) [facility] Tobacco smoking status [facility] Start: 12-29-2024 Alcoholic beverage intake Ex-drinker (finding) [facility] Start: 12-29-2024 Alcohol Comment Pt currently i n rehab for alcohol abuse. [facility] Start: 1965 Sex assigned at Female T [facility] Start: 12-29-2024 Sex Female (finding) [facility] Goals Date Patient Goal Desired Activity [...] Facility 12-05-2023 Functional Status Room check performed [facility] 12-05-2023 Functional Status Mod I [facility] 12-05-2023 Functional Status [facility] 12-05-2023 Functional Status [facility] 12-05-2023 Functional Status [facility] 12-05-2023 Functional Status [facility] 12-04-2023 Functional Status Dinner Percent 50 [facility] 12-04-2023 Functional Status [facility] 12-04-2023 Functional Status Breakfast Percent 25 [facility] 12-04-2023 Functional Status Sequential Com pression Device bilateral knee high applied/on [facility] 12-04-2023 Functional Status [facility] 12-03-2023 Functional Status [facility] 12-03-2023 Functional Status [facility] 12-03-2023 Functional Status Independent [facility] 12-02-2023 Functional Status Sensory Deficits None A [facility] 12-02-2023 Functional Status Living Situation Psychi atric Unit [facility] 12-01-2023 Functional Status Standard Safet y ID band on, Allergy Band on, Call device within reach, Bed in low position, Wheels locked, Upper/Half-Length side-rails up, Safety level maintained [facility] Mental Status Date Assessment Result Facility 12-05-2023 Mental Status Orientation Assessment Orie nted x 4 [facility] 12-05-2023 Mental Status Orientation Oriented x 4 [facility] 12-05-2023 Mental Status [facility] 12-05-2023 Mental Status [facility] 12-04-2023 Mental Status [facility] 12-04-2023 Mental Status [facility] 12-01-2023 Mental Status Orientation Oriented x 4 [facility] Clinical Notes 07-16-2022 to 01-21-2025 ED Bed Hold Note - CLYDE Manriquez-P - 12/29/2024 2:53 AM EDTNida Nobles MD - 12/29/2024 2:53 AM EDTED Bed Hold Note - DUSTIN ManriquezP - 12/29/2024 2:53 AM EDT Note Date & Type Note Facility 01-21-2025 Note [facility] 12-29-2024 Emergency department Note Bed: [facility] Expected date: Expected time: Means of arrival: Comments: EMS [facility] 12-29-2024 History of Presen t illness Narrative [...] patient. Past Medical History: Diagnosis Date Seizures ([facility] V24, CMS[facility] V28) History reviewed. No pertinent surgical history. [...] 0303] Temp Pulse Resp BP -- -- 119/87 SpO2 Temp src Heart Rate Source [...] Procedure Abnormality Status --------- ------ CBC auto differential[[id number]] Abnormal Final result Please view results for [...] Clinical Impressions as of 12/29/24 0612 Seizure ([facility] V24, [facility] V28) In summary, Pardeep Mark is a [...] Substance abuse s DIAGNOSTIC IMPRESSION: 1. Seizure ([facility] V24, [facility] V28) DISPOSITION: Discharge PDMP Reviewed by: on ED Prescriptions None Procedures Nida Nobles MD 12/29/24 0322 Nida Nobles MD 12/29/24 0612 documented in this encounter [facility] 12-29-2024 Miscellaneous Notes Bed: [facility] Expected date: Expected time: Means of arrival: Comments: EMS documented in this encounter [facility] 12-27-2024 Note [facility] 07-21-2024 Note [facility] 12-07-2023 Note . MICRO - [...] Locations *1: This test was performed at: [address], [address] [place] [address] 12-07-2023 Note . MICRO - Microbiology PROCEDURE: [...] Locations *1: This test was performed at: [address], [address] [place] [address] 12-05-2023 Hospital Discharg e instructions Patient Education 12/05/2023 14:50:24 Epilepsy, Rffz-ji-Kccr Epilepsy Epilepsy is when a person keeps [...] Follow these instructions at home: Medicines Take hspd-gvi-ainohim and prescription medicines only as told by [...] check with your local DMV (department of motor vehicles) to find out about local driving laws. [...] 04/27/2010 Document Revised: 02/22/2019 Document Reviewed: 02/22/2019 [employer] Patient Education 2020 [employer]. Follow Up Care 12/02/2023 11:23:14 With:[facility] Address: [address] [address]- When:Within 2 Week(s) only if needed Comments:If you are unable to see your own neurologist With:TAMMY KARIMI MD Address: [address] [facility] [address] [place] [address]- When:3-7 days Comments:Please call the office to schedule a follow-up appointment. With:ANN JONES CNP Address: [address] [place] [address]- [phone] When:Within 1 Week(s) Comments:Seizure follow-up [facility] 12-05-2023 Note Discharge Instructions Thank you for allowing [facility] to assist you with your healthcare needs. [...] Up Appointments Follow Up with [facility] When:In 2 weeks , only if needed Where:[address] [place] [address]- Additional Information: If you are unable to see your own neurologist Follow Up with TAMMY KARIMI MD When:Within 3-7 days Where:[address] [facility] [address] [place] [address]- Additional Information: Please call the office to schedule a follow-up appointment. Follow Up with ANN JONES CNP When:In 1 week Where:[address] [place] [address]- [phone] Additional Information: Seizure follow-up The Following Activity [...] by mouth Once a day Pickup at [facility] #[id number] New atorvastatin (atorvastatin 40 mg oral tablet) 1 tab(s) by mouth Once a day Pickup at [facility] #[id number] New sulfamethoxazole-trimethoprim (Bactrim DS 800 mg-160 mg oral tablet) 160 Milligram by mouth Two (2) times a day Duration: 3 Days Pickup at [facility] #[id number] Changed buprenorphine (buprenorphine 8 mg sublingual tablet) 1 tab(s) under the tongue Two (2) times a day Opiate addiction Duration: 10 Days Pickup at [facility] #[id number] Changed divalproex sodium (Depakote 250 mg oral delayed release tablet) 3 tab(s) by mouth Two (2) times a day Duration: 30 Days Pickup at [facility] #[id number] Changed hydrOXYzine (hydrOXYzine hydrochloride 50 mg oral tablet) 1 tab(s) by mouth Every 6 hours as needed for as needed for anxiety Duration: 14 Days Pickup at [facility] #[id number] Unchanged acetaminophen (acetaminophen 650 mg oral tablet, [...] bedtime as needed for Insomnia Pharmacy Information [id number]: [address] [place], [place] [id number] [phone] What How Much When Comments Stop Taking [...] retail pharmacies. Medication Leaflets divalproex sodium (dye darwin PRO ex) Depakote, Depakote ER, Depakote Shanika What is the most important information I [...] urea cycle disorder; or a genetic mitochondrial (VBY-die-PZJ-dree-al) disorder such as Alpers' disease or Alpers-Huttenlocher [...] history of a urea cycle disorder or infant deaths with unknown cause. Some people have [...] may report side effects to FDA at 1-435-VBO-2333. What other drugs will affect divalproex sodium? Sometimes it is not safe to use certain medications at the same time. Some drugs can affect your blood levels of other drugs you take, which may increase side effects or make the medications less effective. Many drugs can affect divalproex sodium. This includes prescription and ixqr-tus-czlaued medicines, vitamins, and herbal products. Not all [...] to ensure that the information provided by [employer]. ('[employer]') is accurate, up-to-date, and complete, but no guarantee is made to that effect. Drug information contained herein may be time sensitive. [employer] information has been compiled for use by healthcare practitioners and consumers in the [place] and therefore [employer] does not warrant that uses outside of the [place] are appropriate, unless specifically indicated otherwise. [employer]'s drug information does not endorse drugs, diagnose patients or recommend therapy. [employer] drug information is an informational resource designed [...] effective or appropriate for any given patient. [employer] does not assume any responsibility for any aspect of healthcare administered with the aid of information [employer] provides. The information contained herein is not intended to cover all possible uses, directions, precautions, warnings, drug interactions, allergic reactions, or adverse effects. If you have questions about the drugs you are taking, check with your doctor, nurse or pharmacist. Copyright 9660-8096 [employer]. Version: 14.. Revision Date: 09/09/2019. Education Materials [...] Follow these instructions at home: Medicines Take oihz-gih-qcaswfg and prescription medicines only as told by [...] check with your local DMV (department of [employer]) to find out about local driving laws. [...] Document Reviewed: 02/22/2019 Elsevier Patient Education 2020 [employer] Additional Information VACCINATE! IT SAVES LIVES! Members of the community who have not yet received the COVID-19 vaccine and would like to receive it can visit one of [facility] vaccine clinics. There are many vaccine clinic locations within the [facility]. For locations and available times, please visit [email or web address]. [place].gov/. It is important to note that some COVID mobile vaccine clinics are held outdoors and may be canceled in rainy or stormy conditions. To learn more about pediatric vaccinations (ages 5-11), we invite you to visit the [facility] webpage. https://www.[facility].org/ pages/6230-Sfnqr-Ypdbljuvjns-Fr ufcroryh-Yrvsc-Jpsxdqtje.html To learn more about the COVID-19 vaccine, we invite you to visit the CDC website for a list of frequently asked questions.https://www.cdc.gov/c oronavirus/2019-ncov/vaccines/f aq.html [employer] Patient Portal Access Instructions: Stay connected with your healthcare team and access your personal medical information anytime with the [employer] Patient Portal. Please follow the directions below to create your [employer] account: 1.Access the email account you provided upon registration to the hospital/physician office.2.Look for an invitation email from [facility].3.Open the email and access the invitation link: Accept Invitation to [facility] [employer].4.Fill in the required andrews to create your account. To access your account, visit [employer]/Powered by PeakOneChart. Click the blue button labeled Access Patient [...] will allow to register on the [employer] Patient Portal for access to your information. You can also access the [employer] Patient Portal on the Powered by Peak Anywhere blanka. Simply click on Patient Portal and then log into your account. If you would like to receive a full copy of your medical records, please contact the [facility] Medical Records Department by calling [phone], Friday through Friday between 8 a.m. and [...] Call your local pharmacy or go to http://BigTree.World Blender/[email or web address] to find one close to you.3.Make use of household items: Use cat litter or old coffee grounds to dispose medications if other options are not available. Mix your drugs with these household products, seal them in an airtight container and throw it into the garbage. Call [facility]: [phone] to be sure your drugs can be [...] CHART COPY. Signatures Patient Education Materials Epilepsy, Txrg-vt-Qkov Medication Leaflets Depakote My discharge plan and instructions have been reviewed and explained to me and I,PARDEEP MARK understand my current condition and have read and understand these discharge instructions. I have received a written copy of the plan/instructions. If I have questions, I am aware that I should contact my doctor. 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 Apparently patient was diagnosed with urinary tract infection a week prior to urgent care was put on ciprofloxacin. After multiple seizures she went to urgent care again who gave her Versed due to seizures and sent her to the hospital. She was discharged from [facility] and was on her way home when she had a significant fight with her daughter and was taken back to the [place] emergency department after talking to crisis center. She was pink slipped there for suicidal ideation stayed another night and was sent back to [facility]. She continued to have seizures at [facility] and therefore presented to [facility] emergency department on November 30 with seizures [...] Refills: 0. Follow Up Follow Up with [facility] When:In 2 weeks , only if needed Where:[address] [place] [address]- Additional Information: If you are unable to see your own neurologist Follow Up with TAMMY KARIMI MD When:Within 3-7 days Where:[address] [facility] [address] [place] [address]- Additional Information: Please call the office to schedule a follow-up appointment. Follow Up with ANN JONES CNP When:In 1 week Where:[address] [place] [phone] Additional Information: Seizure follow-up Follow Up Appointments [...] WERO HERNANDEZ DO on 12/05/2023 02:49 PM [facility] 12-04-2023 Note Date of Service 12/04/23 Chief Complaint Patient is a 58-year-old female with past medical history of seizure disorder ((follows with [facility] neurology, Ann Poole), chronic pain syndrome with phantom pain secondary to left above-knee amputation, depression/anxiety, arthritis, TIA on aspirin who presented from [facility] facility after experiencing multiple seizures. Apparently patient was diagnosed with urinary tract infection a week prior to urgent care was put on ciprofloxacin. After multiple seizures she went to urgent care again who gave her Versed due to seizures and sent her to the hospital. She was discharged from [facility] and was on her way home when she had a significant fight with her daughter and was taken back to the [place] emergency department after talking to crisis center. She was pink slipped there for suicidal ideation stayed another night and was sent back to [facility]. She continued to have seizures at [facility] and therefore presented to [facility] emergency department on November 30 with seizures [...] discharged whenever her medical conditions allow. DVT Darriusx Darinel [facility]- [phone] was updated. Anticipated Date of Discharge Monitor overnight due to seizure today. If no further seizures, Anticipate discharge in the morning. Digitally Signed by WERO HERNANDEZ DO on 12/04/2023 06:16 PM Digitally Signed by WERO HERNANDEZ DO on 12/04/2023 07:07 PM [facility] 12-04-2023 Note . MICRO - Microbiology PROCEDURE: Urine Culture [*1] SOURCE: Urine, Clean Catch BODY SITE: COLLECTED DATE/TIME: 12/03/2023 14:22 EDT RECEIVED DATE/TIME: 12/03/2023 14:44 EDT START DATE/TIME: 12/03/2023 14:44 EDT FREE TEXT SOURCE: FINAL REPORTS Final Report [] Verified Date/Time/Personnel: 12/04/2023 14:26 EDT <10,000 cfu/ml. No Significant growth. Sensitivity not indicated. Performing Locations *1: This test was performed at: [facility], [address] [place] [address], [address] , [facility] 12-04-2023 Neurology Progres s note Date of [...] were answered Digitally Signed by SHAMA BERKOWITZ APRN-LITO on 12/04/2023 01:52 PM [facility] 12-03-2023 Neurology Consult note Date of [...] MICHAEL HAYES MD on 12/03/2023 11:54 AM [facility] 12-03-2023 Note Exam Date Time Procedure Performing Provider Status 12/03/23 10:51 AM Echocardiogram, Adul t with Bubble Study- Auth (Verified) [facility] 05-22-2024 Note Date of Service 12/03/23 Chief Complaint Patient is a 58-year-old female with past medical history of seizure disorder ((follows with [facility] neurology, Ann Poole), chronic pain syndrome with phantom pain secondary to left above-knee amputation, depression/anxiety, arthritis, TIA on aspirin who presented from [facility] facility after experiencing multiple seizures. Apparently patient was diagnosed with urinary tractinfection a week prior to urgent care was put on ciprofloxacin. After multiple seizures she went [facility] again who gave her Versed due to seizures and sent her to the hospital. She was discharged from [facility] and was on her way home when she had a significant fight with her daughterand was taken back to the [place] emergency department after talking to crisis center. She was pink slipped there for suicidal ideation stayed another night and was sent back to [facility]. She continued to have seizures at [facility] and therefore presented to [facility] emergency department on November 30 with seizures [...] for seizures. Neurology consulted. Depakote level ordered. Shayy added. Right-sided facial paralysis indicating stroke versus [...] WERO HERNANDEZ DO on 12/03/2023 10:26 AM [id number] Note ORIGINAL HISTORY: Stroke COMPARISON: Head CT [...] Date: 12/03/2023 12:06:44 PM Ordering Provider: JOSIE ONEILHigh[facility] [id number] Mental health Consult note Date of Service December 02, 2023 Reason for Consultation Suicidal ideation Referring Physician Dr. Oneil History of Present Illness Patient is a 58-year-old woman with a history depression and anxiety. She is known to me from an outpatient consultation in my office in 2019. She was brought to the emergency room from [facility] where she had briefly been psychiatrically [...] requesting psychiatric hospitalization. She was transferred to [facility], though has now been sent to [...] treatment with a substance abuse counselor at [facility] where she attends medically assisted treatment for opioid dependence in the context of chronic pain following a lower extremity amputation. She denies any history of alcohol or illegal drugs abuse. She had been treated with psychiatric medication in the past, including Cymbalta and Seroquel, and had been in treatment with a psychiatric nurse practitioner at the [facility]. However, she states she is no longer using psychiatric medication, and is no longer engaged in mentalhealth specific treatment. She reports that she has never been diagnosed with nonepileptic seizures, states she is followed bya neurologist at the [facility] who is diagnosed her with partial complex [...] adult children, 1 of whom is a radiology interventional physician. Medical status: Currently the patient is resting [...] This 58-year-old woman was taken to the [facility] several daysago after a suicide type, in the context of an argument with her daughter. She denies suicidal ideation on an ongoing basis, commits to safety, and is deemed to be at very low risk of imminent self-harm. She is not willing to return to the [facility] psychiatric setting or any other psychiatric setting, feeling it is unnecessary, stating I does want to go home. She is currently being managed to the observation service for monitoring of her epilepsy medicationgiven her breakthrough seizure activity. She is not holdable against her will. She plans to follow-up with her outpatient substance abuse treatment program at [facility], though is otherwise not interested in engaging [...] mL, Oral, qDay petrolatum topical ointment, 1 balnka, Topical, TID, PRN traZODone 50 mg oral tablet, 50 mg= 1 tab(s), Oral, qHS, PRN Allergies Compazine shakey, Phenergan, shaking Phenergan shaking Reglan shakes promethazine Shakes Social History Smoking Status - 09/18/2007 Patient is non-smoker Immunizations No qualifying data available. Digitally Signed by ROGER VASQUEZ MD on 12/02/2023 03:47 PM [id number] Evaluation + Plan noteExtracted from: Title:History and [...] verified by pharmacy. Note was written using [employer] magazine writer software. Some of the meaning of the words and sentences might have changed during magazine writer, if there was ever some confusion about the meaning of some sentences, please do not hesitate to contact me. [facility] 05-21-2024 History and physical note Date [...] depression/anxiety, arthritis, TIA on aspirin presented from [facility] facility with chief concern ofmultiple seizures. Patient stated that she was diagnosed with UTI about a week ago at urgent care and was put on ciprofloxacin. She went to [facility] ER on Friday on recommendation of healthcare provider from urgent care and on the way to the hospital she had seizure-like activity, EMS was called and she was given Versed. She was discharged from [place] and on the way back to her home she had a fight with her daughterand she was taken again to the [place] ER, they talked to crisis center and pink slipped her for suicidal ideations, she stayed in the ER overnight and was sent to [facility]. She stated that she had multiple seizures at [facility] with at least 2 seizures last night. [facility] November 30 with seizure-like activity. [...] paralysis and she was discharged back to [facility]. This morning she had at least 1 [...] verified by pharmacy. Note was written using [employer] magazine writer software. Some of the meaning of the words and sentences might have changed during magazine writer, if there was ever some confusion about [...] JOSIE ONEIL MD on 12/02/2023 06:03 PM [facility] [id number] NoteSINUS TACHYCARDIA INFERIOR INFARCT, OLD Electronic Signature: MIGUEL RODRIGEZ MD 12/04/2023 20:40:50[facility] 05-20-2024 Hospital Discharge instructions Patient Education [...] has sustained an injury during the seizure. [id number] [employer]. [address] [place] [address]. All rights reserved. This information is not intended as a substitute for professional medical care. Always follow yourhealthcare professional's instructions. Follow Up Care 12/01/2023 12:31:02 With:TAMMY KARIMI MD Address: [address] [place] [phone] When:2-4 days [facility] 05-20-2024 Emergency department Discharge summary Discharge Instructions Thank you for allowing [facility] to assist you with your healthcare needs. The following is importantdischarge information regarding your hospital visit. Diagnosis from Today's Visit Seizure What to Do Next Instructions from Your Care Team No qualifying data available. Post Acute Orders No qualifying data available. You Need to Schedule the Following Appointments Follow Up with TAMMY KARIMI MD When: When:Within 2-4 days Where:[address] [place] [phone] Allergies Compazine shakey, Phenergan, shaking Phenergan shaking [...] has sustained an injury during the seizure. [id number] [employer]. [address] [place] [address], [place] [address]. All rights reserved. This information is not intended as a substitute for professional medical care. Always follow yourhealthcare professional's instructions. Additional Information VACCINATE! IT SAVES LIVES! Members of the community who have not yet received the COVID-19 vaccine and would like to receive it can visit one of [facility] vaccine clinics. There are many vaccine clinic locations within the [facility]. For locations and available times, please visit www.[email or web address].[place].gov/. It is important to note that some COVID mobile vaccine clinics are held outdoors and may be canceled in rainy or stormy conditions. To learn more about pediatric vaccinations (ages 5-11), we invite you to visit the [facility] webpage. https://www.[email or web address]/[email or web address]-Hqngxykdfgw-Ojldxwjjwx-Eyndv-Clq stions.htmlTo learn more about the COVID-19 vaccine, we invite you to visit the CDC website for a list of frequently asked questions. https://www.cdc.gov/coronavirus/2019-ncov/vaccines/faq.html [facility] uMentioned Patient Portal Access Instructions: Stay connected with your healthcare team and access your personal medical information anytime with the [facility] [employer] Patient Portal. If you would like a full copy of your medical records please contact the [facility] Medical Records Department Friday through Friday between 8a.m. and 4:30p.m. Please follow the directions below to access the portal: 1.Access the email account you provided upon registration to the hospital.2.Look for an invitation email from [facility].3.Open the email and access the invitation link: Accept Invitation to [facility]4.Fill in the required andrews to create your account. Sign into www.[employer] with your username and password that you [...] you will allow to register on the [employer] Patient Portal for access to your information. You can also access the [employer] Patient Portal on the EVRYTHNG. Simply click on Health Records under [employer]st Parameter and then click on the [employer] logo. HOW TO SAFELY DISPOSE OF PRESCRIPTION [...] Call your local pharmacy or go to [email or web address] Blender/[email or web address] to find one close to you.3.Make use of household items: Use cat litter or old coffee grounds to dispose medications if other options arenot available. Mix your drugs with these household products, seal them in an airtight container andthrow it into the garbage. Call [facility]: [phone] to be sure your drugs can be [...] been reviewed and explained to me and I,PARDEEP MARK understand my current condition and have read and understand these discharge instructions. I have received a written copy of the plan/instructions. If I have questions, I am aware that I should contact my doctor. Patient/Housesmith Signature: Date/Time: Relationship to Patient: Witness Name/Signature: Date/Time: [facility] [id number] Note ORIGINAL HISTORY: Headache, seizure COMPARISON: No [...] Sign Date: 12/01/2023 3:57:41 PM Ordering Provider: [facility]05-20-2024 Note ORIGINAL HISTORY: Facial droop COMPARISON: [...] Sign Date: 12/01/2023 3:53:24 PM Ordering Provider: [facility]05-20-2024 Note ORIGINAL EXAMINATION: CT OF THE [...] Sign Date: 12/01/2023 2:59:03 PM Ordering Provider: [facility]05-20-2024 Evaluation + Plan note Diagnostic Tests Pending * Urinalysis w/ C&S if Indicated 12/01/23 [facility] 05-20-2024 Note ORIGINAL EXAMINATION: ONE XRAY [...] Sign Date: 12/01/2023 1:18:39 PM Ordering Provider: [facility]05-20-2024 NoteSINUS TACHYCARDIA INFERIOR INFARCT, OLD PROLONGED QT INTERVAL Electronic Signature: SARWAT FONTANEZ MD 12/01/2023 13:08:50[facility] 01-12-2024 NoteHNO ID: [id number] Author: ANN JONES APRN.PROFESSOR OF FOREST PLANNING Service: ? Author Type: Nurse Practitioner Type: Progress Notes Filed: 07/25/2023 14:33 Note Text: [facility] Patient Name: Pardeep Mark Date of : 1965 ESTABLISHED EPILEPSY CLINIC NOTE 07/25/2023 1:00 PM Reason for Visit: Seizures Clinical Summary: Ms. Mark is a 58 year old right-handed female seen in [facility]. We had a visit using: Abroad101 I received consent from the patient to [...] smell. - She saw a neurologist in [place] and did an 8-hour video EEG at [facility] that she reports captured an episode. The test was cut short following the captured event and started on carbamazepine for it. - Sometime later around age 35-36 years, she was evaluated at [facility] with an EMU that did not capture [...] at 7 am. She was taken to [place] and then transferred to [facility] on 07/15/22. - She was readmitted for cellulitis from 07/24/22-08/08/22 and had a second event in the hospital diagnosed as a seizure and started on LEV. - The third admission was 2/1/23-08/15/22 for swelling without incident. - The fourth admission was 10/05-10/14 when she had the third event. Pseudoseizures were entertained as a possibility. - Then around October 20, she had the fourth event followed by a fifth event at her grandson's birthday green party. - The sixth one was at [facility] ED. Her daughter had a video [...] mg BID. She was admitted to [facility] (life flighted there from local hospital) [...] unresponsiveness and eyelid flutte (more content not included)...[facility]10-31-2023 History of Present illness Narrative* Tal Claude - 05/13/2023 4:20 PM EDT Images from the original note were not included. [facility] Note: Bedside Delivery Documentation The following prescription(s) were delivered to the patient's bedside. [facility] ([place]) [phone] [facility] [phone] [facility] Bedside Delivery [phone] [facility] [phone] [facility] Bedside Delivery [phone] [facility] [phone] [facility] Bedside Delivery [phone] [place] [phone] [place] [phone] * Oli Mitchell RP - 05/13/2023 2:16 PM EDT Images from the original note were not included. [facility] Note: Non-Verbal Med Rec [facility] received the following discharge prescription(s): Total cost is $2.11. I have reviewed the Discharge Rx Reconciliation Report. The discharge prescription(s) will be delivered to the patient on 05/13/2023. Oli Mitchell [facility] ([place]) [phone] [facility] [phone] [facility] Bedside Delivery [phone] [facility] [phone] [facility] Bedside Delivery [phone] [facility] [phone] [facility] Bedside Delivery [phone] [place] [phone] [place] [phone] * Kathy Garcia RN - 05/13/2023 12:22 PM EDT Care Management Discharge Note Selected Continued Care - Admitted Since 05/08/2023 No services have been selected for the patient. Checked Aidin and no accepting [facility] agencies. Team notified. Per PT pt progressing well and should be ok to discharge to home. Met with pt @ bedside and informed no accepting [facility] agencies. Pt states she still wants to discharge to home. States she has been doing well with therapies and feels she will be safe at home without HHC. Says has lived in her [facility] independently x 20 years. Dtr lives 10 min away and does not work. Dtr will asst with meals and any needs. Transportation home arranged by . No other dc needs identified at this time. Patient medically stable for discharge per physician/medical team. Patient/Housesmith remain inagreement with the discharge plan. Kathy Garcia RN, BSN Clinical [facility] [phone] *Please note that I am a float business case analyst and that I may not cover the same service everyday. Please call the main case management office at for up to date coverage. * Kathy Garcia RN - 05/13/2023 10:30 AM EDT Checked Aidin and NO accepting [facility] agencies. Updated clinical info uploaded in Aidin including therapy note. Messages 2 [facility] agencies that did not repond before timeline ended and requested decision. Timeline extended until 11:30am. Kathy Garcia RN, BSN Clinical [facility] [phone] *Please note that I am a float business case analyst and that I may not cover the same service everyday. Please call the main case management office at for up to date coverage. * Kathy Aguilar APRN-LITO - 05/13/2023 9:36 AM EDT [facility] Consult Service Daily Progress Note [...] significant findings stated above. FLEX Godfrey [facility] Addiction Medicine provider can be found on WebXchange under *[facility] Consult Auto page Total time for visit, including chart review, visit time with patient, collaboration with consulting provider(s)/care team, ordering, and documentation, was 25 minutes. * LAW Post - 05/12/2023 2:14 PM EDT CM met with patient at bedside. Current recommendation has changed from SNF to Home with [facility]. Patient in agreement with current recommendation. CM uploaded clinical to [employer] for [facility] Agencies to review. MARLIN Post, PAID SEARCH ANALYST [employer] * Michael Urbina, PT - 05/12/2023 1:01 PM EDT Acute Physical Therapy Treatment Prior to Admission [facility] score(s): PRIOR LEVEL AM-PAC Mobility Raw Score: [...] belt Mobility Assessment/Intervention: Supine to Sit Mobility [place] Level: Supine->Sit: independent Bed Features/Set-up: Supine->Sit: Flat Sit to Supine Mobility [place] Level: Sit->Supine: independent Bed Features/Set-up: Sit->Supine: Flat Transfer Assessment/Intervention: Sit to Stand Transfer [place] Level: Sit->Stand: supervision Assistive Device: Sit->Stand: gait belt Skilled Rationale: Verbal cues, Sequencing, Technique of activity Skilled Intervention/Details: Sit->Stand: x 1 from the chair and x 1 from the wheelchair Stand to Sit Transfer [place] Level: Stand->Sit: supervision Assistive Device: Stand->Sit: gait belt Skilled Rationale: Verbal cues, Sequencing, Technique of activity Bed-Chair Transfer [place] Level: Bed<->Chair: supervision Assistive Device: Bed<->Chair: gait [...] end of wheelchair manueverability. Outcome Score(s): CURRENT [facility] Basic Mobility Inpatient Short Form Turning over in bed: 4 - No Assistance Sitting/standing from chair: 3 - A Little Assistance Moving from lying on back to sittin - No Assistance Moving to and from bed to chair: 3 - A Little Assistance Walk in hospital room: 1 - Total Assistance Climbing 3-5 steps with a railin - Total Assistance CURRENT [facility] Mobility Raw Score: 16 CURRENT [facility] Mobility Functional Limitation/Modifier: 54.16% Currently Impaired in [...] OT clinical judgment, discharge destination recommendation is: Prison Facility Barriers to discharge home: Patient needs [...] Edema: Mobility Assessment/Intervention: Supine to Sit Mobility [place] Level: Supine->Sit: stand-by assist Bed Features/Set-up: Supine->Sit: Head of bed elevated Skilled Rationale: Hand placement, Verbal cues, Technique of activity Skilled Intervention/Details: Supine->Sit: transition into long sit before transfer to EOB Transfer Assessment/Intervention: Sit to Stand Transfer [place] Level: Sit->Stand: minimum assist (75% patient effort) Assistive Device: Sit->Stand: gait belt Skilled Rationale: Positioning, Hand placement, Verbal cues, Full extension to upright positioning/posture, Technique of activity, Cues for increased safety Skilled Intervention/Details: Sit->Stand: decreased full upright posture with hx of modified stand pivot to w/c and limited overall upright stand needs per pt Stand to Sit Transfer [place] Level: Stand->Sit: minimum assist (75% patient effort) Assistive Device: Stand->Sit: gait belt, armed chair Skilled Rationale: Hand placement, Verbal cues, Controlled descent for sitting, Technique of activity, Cues for increased safety Skilled Intervention/Details: Stand->Sit: Promoted UE use for arm rests for controlled descent. Fair carryover with tech Bed-Chair Transfer [place] Level: Bed<->Chair: (min-mod) Assistive Device: Bed<->Chair: gait belt, armed chair Skilled Rationale: Positioning, Hand placement, Verbal cues, Technique of activity, Cues for increased safety Skilled Intervention/Details: Bed<->Chair: modifited stand pivot to chair placed to Rt of pt.Pt only completed SPT at home to w/c and or scooter. MIn cues for pace and safety Functional Mobility: Outcome Score(s): CURRENT AM-PAC Daily Activity Inpatient [...] Activity Time Entry: 12 Treating Therapist: Daria Coatse OT I AM A FLOAT, PLEASE PAGE [...] Level(s) of Care Discussed: SNF Patient and/or Housesmith's Preferred Geographic Area for Discharge: [place] Patient and/or Housesmith's Preference for Providers to Include? 1.[place] area Patient and/or Housesmith's Preference for Providers to Exclude? 1.[place] Patient and/or Housesmith's Discussion: SW met with patient at bedside today to discuss discharge options, including medical team recommendation for SNF. Patient is alert, oriented x4 today. Patient requested to update her HCPOA paperwork;SW reviewed paperwork with patient & new HCPOA paperwork forwarded to medical records (for additional details refer to SW note 05/02 @ 8441). She requests to include her daughter, Alison on discharge planning discussion. SW phoned pt's daughter & placed on speaker phone. SNF referrals sent; await responses. Discussed referral process with the patient and/or software sales representative. Patient and pt's daughter are agreeable to have placement referral initiated. Abigail SUTHERLAND Medical Social Work Please note that I am a float SW and may not be covering the same unit each day. Please reach out to the floor/unit SW for additional needs/concerns. Contact info for weekend CM and SW staff (8:00am - 4:30pm): [facility]: CCM: / Building Maintenance Worker: [place]: CCM: / Building Maintenance Worker: Cricket: CCM : / Building Maintenance Worker: Hernandez/MICU/PCU [place]: CCM: / Building Maintenance Worker: * ESTRADA Reeder - 05/11/2023 4:03 PM EDT Reason for Consult: Healthcare Power of Music Professor (HCPOA) Consulted By: weekday SW Packet Provided: yes Questions Answered: yes Completed HCPOA Information HCPOA - Alison Colon, pt's daughter ([phone]) Alternate HCPOA #1 - Cj Mark, pt's son ([phone]) Alternate HCPOA #2 - Dr. Darinel Mark, pt's son ([phone]) Original has been provided to patient. Additional copies has been provided to patient. Copy has been sent to [facility] for inclusion in IHIS. Information has been [...] is a good candidate for discharge to Prison Facility Barriers to discharge home: Patient needs [...] cues Mobility Assessment/Intervention: Supine to Sit Mobility [place] Level: Supine->Sit: moderate assist (50% patient effort) Bed Features/Set-up: Supine->Sit: Head of bed elevated, Use of bed rail Skilled Rationale: Positioning, Sequencing, Hand placement, Verbal cues Skilled Intervention/Details: Supine->Sit: increased time and step by step cues for sequencing Transfer Assessment/Intervention: Bed-Chair Transfer [place] Level: Bed<->Chair: (min/mod) Assistive Device: Bed<->Chair: gait belt Skilled Rationale: Positioning, Sequencing, Hand placement, Verbal cues Skilled Intervention/Details: Bed<->Chair: pt completed modified stand pivot transfers/scoot transfer from bed to bedside commode and bedside commode to chair with min/mod assist, cues for technique Gait/Functional Mobility Assessment/Intervention: Stairs Assessment/Intervention: Outcome Score(s): CURRENT [facility] Basic Mobility Inpatient Short Form Turning over [...] with a railin - Total Assistance CURRENT [facility] Mobility Raw Score: 9 CURRENT [facility] Mobility Functional Limitation/Modifier: 81.38% Currently Impaired in [...] on the below outcome measures/assessment score(s) and CONTRACT ASSOCIATE MANAGER clinicaljudgment, discharge destination recommendation is: Deferred to PT/OT recomendations related to mobility Acute CONTRACT ASSOCIATE MANAGER Outcomes Tracking Communicate basic wants and needs?: [...] infarct in the right basal ganglia. Prior CONTRACT ASSOCIATE MANAGER history: none on file per EMR review [...] Subjectively improved bolus clearance, per Pt report [place] Swallow Screen: (administered by: CONTRACT ASSOCIATE MANAGER) [place] Swallow Screening Screening Exclusion Criteria: none, continue with [place] Swallow Screening Cognitive Screen: Orientation: able to [...] oz. Water Swallow Challenge : non-consecutive sips [place] Swallow Screening Result: failed=NPO Voice and Swallow [...] and monitor for any changes/decline in swallowing. CONTRACT ASSOCIATE MANAGER will follow-up to assess tolerance of diet. [...] of instrumental swallow study if indicated. Acute CONTRACT ASSOCIATE MANAGER Goals Plan of Care by CIERRA Youngblood at 05/09/2023 1:20 PM Version 1 of 1 Problem: CONTRACT ASSOCIATE MANAGER - Dysphagia Goal: PO Trial 1 Description: [...] of session: none altered Needs in reach. CONTRACT ASSOCIATE MANAGER Evaluation and Treatment Time Clinical Swallow Eval [...] Next of Kin: Dr Darinel Mark - [facility] - [phone] [facility] [phone] Cj Mark [facility] - [phone] Financial Resources Insurance: Yes Prescription Coverage: Yes [...] HCPOA Agent. CM updated SW. MARLIN Post, PAID SEARCH ANALYST Slate Trimmer * Judith Hale, PT - 05/09/2023 11:14 AM EDT Acute Physical Therapy Evaluation Prior to Admission [facility] score(s): PRIOR LEVEL AM-PAC Mobility Raw Score: 18 Current AM-PAC score(s): CURRENT AM-PAC Mobility Raw Score: 8 Based on the above AM-PAC score(s) and PT clinical judgment, patient is a good candidate for discharge to Prison Facility Barriers to discharge home: Patient needs [...] Activity: 8- severe pain Home Setting Residence: [facility] Lives With: alone First floor setup: bedroom [...] noted Mobility Assessment: Supine to Sit Mobility [place] Level: Supine->Sit: maximum assist (25% patient effort) Bed Features/Set-up: Supine->Sit: Head of bed elevated, Use of bed rail Skilled Rationale: Positioning, Hand placement, Sequencing, Verbal cues Skilled Intervention/Details: Supine->Sit: increased time/cues Sit to Supine Mobility [place] Level: Sit->Supine: maximum assist (25% patient effort) Bed Features/Set-up: Sit->Supine: Flat, Use of bed rail Skilled Rationale: Positioning, Sequencing, Hand placement, Verbal cues Balance: Sitting Balance Static Sitting-Level of Assistance: Supervision Dynamic Sitting-Level of Assistance: Standby Skilled Rationale: Positioning, Sequencing, Hand placement, Verbal cues Standing Balance Standing Balance Skilled Intervention/Details: unable to achieve stand Transfer Assessment: Gait/Functional Mobility: Stairs: Outcome Score(s): CURRENT [facility] Basic Mobility Inpatient Short Form Turning over in bed: 2 - A Lot of Assistance Sitting/standing from chair: 1 - Total Assistance Moving from lying on back to sittin - A Lot of Assistance Moving to and from bed to chair: 1 - Total Assistance Walk in hospital room: 1 - Total Assistance Climbing 3-5 steps with a railin - Total Assistance CURRENT [facility] Mobility Raw Score: 8 CURRENT [facility] Mobility Functional Limitation/Modifier: 86.62% Currently Impaired in [...] community IADL History IADLs: independent Primary Language: Dutch Home Management Skills: independent Medication Management: independent [...] WFL Mobility Assessment: Supine to Sit Mobility [place] Level: Supine->Sit: maximum assist (25% patient effort) Physical Assist: Supine->Sit: (1 person) Bed Features/Set-up: Supine->Sit: Head of bed elevated, Use of bed rail Skilled Rationale: Positioning, Sequencing, Hand placement, Verbal cues, Tactile cues Skilled Intervention/Details: Supine->Sit: increased time/cues Sit to Supine Mobility [place] Level: Sit->Supine: maximum assist (25% patient effort) Physical Assist: Sit->Supine: 1 person + 1 person to manage equipment Bed Features/Set-up: Sit->Supine: Flat, Use of bed rail Skilled Rationale: Positioning, Hand placement, Verbal cues, Technique of activity Skilled Intervention/Details: Sit->Supine: Increased momentum Transfer Assessment: Sit to Stand Transfer [place] Level: Sit->Stand: dependent (less than 25% patient effort) Physical Assist: Sit->Stand: 2 person assist Assistive Device: Sit->Stand: gait belt (arm scar arm) Skilled Rationale: Positioning, Sequencing, Hand placement, Verbal cues, Full extension to upright positioning/posture, Technique of activity Skilled Intervention/Details: Sit->Stand: Unable to achieve full stand. Poor standing tolerance Bed-Chair Transfer Cay[place] Level: Bed<->Chair: other (see comments) (No readiness) Functional Mobility: Functional Mobility [place] Level: Functional Mobility/Gait: other (see comments) (Non [...] hand out provided. Pt also educated on farmhand strengthening exercises using medium resistance squeeze foam. [...] current Occupational Therapy Discharge Summary. * Anil Cortes, [facility] - 05/08/2023 11:47 PM EDT Images from the original note were not included. Department of Pharmacy OARRS Note Patient: Pardeep Mark Room/Bed: E036/E036 I have reviewed the patient's OARRS report and have found that the patient has regularly filled thefollowing contributory prescriptions in the last 6 months Please feel free to contact me with any further questions. Anil Cortes PharmD, LAURA, BCCCP, BCPS Specialty Practice Pharmacist - Emergency Medicine Pager: [phone] Portable Phone: [phone] Date/Time: 05/08/2023 11:50 PM Time Spent: [address] [facility] [address] [facility]10-30-2023 Hospital Discharge instructions* Discharge Instructions* [...] with your primary Neurologist. documented in this [facility]10-30-2023 Miscellaneous Notes* Plan of Care - Michael Urbina, PT - 05/12/2023 1:01 PM EDT Problem: [...] Youngblood - 05/09/2023 1:20 PM EDT Problem: CONTRACT ASSOCIATE MANAGER - Dysphagia Goal: PO Trial 1 Description: [...] to staystill during exam and later told instructional technology coordinator that she thinks she had a seizure. When questioned why she thought she had a seizure she states she had an aura (smell) during scan. RN and instructional technology coordinator did not notice any jerking during scan other than head movement noted on MRI reading. Patient transported back to room and VSS, she does endorse 02/20 for headache. * Certification - Rebecca Velasquez [...] performed by Aubree Plunkett, RN and Ngoc Saldaña RN. Skin Assessment: Skin within defined limits:Yes Nathan Score: 15 LDA Added:No Aubree Plunkett RN No wounds identified at this time [facility] Plan of care note* Plan of [...] at next level of care. Outcome: Ongoing [facility]10-30-2023 Plan of care note* Plan of [...] ability to safely complete ADLs. Outcome: Ongoing [facility]10-29-2023 Plan of care note* Plan of Care - Candi Jaimes RN - 05/11/2023 5:30 PM EDT Problem: Patient Care Overview Goal: Plan of Care Review Outcome: Ongoing Goal: Individualization & Mutuality Outcome: Ongoing Goal: Discharge Needs Assessment Outcome: Ongoing Goal: Interdisciplinary Rounds/Family Conf Outcome: Ongoing [facility]10-29-2023 Plan of care note* Plan of Care [...] new prescription for discharge Cheryl Mancilla MD [facility] Work Phone: [phone] Nurse Note* Nursing Notes - Kameron Gama [...] will discuss possible need for repeat UA/UC. [facility]10-28-2023 Plan of care note* Plan of Care - Candi Jaimes RN - 05/10/2023 4:08 PM EDT Problem: Patient Care Overview Goal: Plan of Care Review Outcome: Ongoing Goal: Individualization & Mutuality Outcome: Ongoing Goal: Discharge Needs Assessment Outcome: Ongoing Goal: Interdisciplinary Rounds/Family Conf Outcome: Ongoing [facility]10-28-2023 Plan of care note* Plan of Care [...] mobility and safety. Outcome: Progressing Toward Goal [facility]10-27-2023 Consult note* FLEX Godfrey - 05/09/2023 1:30 PM EDTAssociated Order(s): IP CONSULT TO ADDICTION MEDICINE [facility] Addiction Medicine Consult Service INITIAL CONSULT Patient: Pardeep Mark, 1965, [id number] Physician: FLEX Godfrey, Pager #[phone], MAT Consult Encounter date: 05/09/2023 Reason for [...] of suboxone Discharge Planning Our Addiction Medicine social media campaign manager will work with the patient on finding an appropriate follow-uplocation for ongoing MAT and will communicate with the patient's medical interpreter and social media campaign manager. Please see Addiction Medicine SW note for [...] opiates for angeles long time and subsequently [facility] transitioned her over to Subutex. Since then over the years when [facility] stopped managing her Subutex she was referred to a pain provider recently that was trying to taper her off which is noted in her OARRS report and then after having a reported seizure he was concerned that he could not get her lower than 2 mg once or twice a day and she states that she was referred to [facility]. She states that during her cancer treatment [...] Suboxone that she was picking up from [facility] pharmacy that she is had [...] will also be evaluated by Addiction Medicine Building Maintenance Worker. Please see their documentation of this treatment [...] nasal cannula (05/09/23 1120) Flow (L/min): 2 (05/09/23 0505) Exam: Gen: Alert, Awake, Lying in bed, [...] IHIS with significant findings stated above. SIGNING TEXTILE SCRAP SALVAGER Thank you for this consult. We will continue to follow with you. If you have any questions, please page the Addiction Medicine strategic consultant on Web Exchange, or send a message via IHIS. FLEX Godfrey [facility] Addiction Medicine provider can be found on WebSensorDynamicsge under *MATC Consult Auto page Total time for visit, including chart review, visit time with patient, collaboration with consulting provider(s)/care team, ordering, and documentation, was 90 minutes. [facility]10-27-2023 Consult note* FLEX Godfrey - 05/09/2023 1:30 PM EDTAssociated Order(s): IP CONSULT TO ADDICTION MEDICINE [facility] Addiction Medicine Consult Service INITIAL CONSULT Patient: Pardeep Mark, 1965, [id number] Physician: FLEX Godfrey, Pager #[phone], MAT Consult Encounter date: 05/09/2023 Reason for [...] of suboxone Discharge Planning Our Addiction Medicine social media campaign manager will work with the patient on finding an appropriate follow-uplocation for ongoing MAT and will communicate with the patient's medical interpreter and social media campaign manager. Please see Addiction Medicine SW note for [...] opiates for angeles long time and subsequently [facility] transitioned her over to Subutex. Since then over the years when [facility] stopped managing her Subutex she was referred to a pain provider recently that was trying to taper her off which is noted in her OARRS report and then after having a reported seizure he was concerned that he could not get her lower than 2 mg once or twice a day and she states that she was referred to [facility]. She states that during her cancer treatment [...] Suboxone that she was picking up from [facility] pharmacy that she is had [...] will also be evaluated by Addiction Medicine Building Maintenance Worker. Please see their documentation of this treatment [...] irritability, hallucinations, SI/HI PHYSICAL EXAM Vitals: 05/09/23 112 BP: 139/74 Pulse: 100 Resp: 13 Temp: 98.2 F (36.8 C) SpO2: 97% O2 Device: nasal cannula (05/09/231119) Flow (L/min): 2 (05/09/23 0525) Exam: Gen: [...] IHIS with significant findings stated above. SIGNING TEXTILE SCRAP SALVAGER Thank you for this consult. We will continue to follow with you. If you have any questions, please page the Addiction Medicine strategic consultant on Web Exchange, or send a message via RichRelevance. Kathy Aguilar APRN-PROFESSOR OF FOREST PLANNING [facility] Addiction Medicine provider can be found on WebXchange under *MATC Consult Auto page Total time for visit, including chart review, visit time with patient, collaboration with consulting provider(s)/care team, ordering, and documentation, was 90 minutes. [facility] Plan of care note* Plan of Care - CIERRA Youngblood - 05/09/2023 1:20 PM EDT Problem: CONTRACT ASSOCIATE MANAGER - Dysphagia Goal: PO Trial 1 Description: Patient will complete trials of any consistency independently maintaining adequate levels of alertness and demonstrating timely oral manipulation and bolus transit for consistent swallowresponse without overt signs/symptoms of aspiration, across 1 session(s) to assess for resolution of swallowing complaints and to determine whether instrumental swallow assessment is indicated. Outcome: Ongoing [facility]10-27-2023 Plan of care note* Plan of Care [...] improve functional mobility and safety. Outcome: Ongoing [facility]10-27-2023 Plan of care note* Plan of Care [...] (reference Stroke (Ischemic) (Adult) CPG). Outcome: Ongoing T [facility]10-27-2023 Plan of care note* Plan of Care [...] RUE ROM/coordination/strength for ADL participation. Outcome: Ongoing [facility]10-27-2023 Nurse Note* Nursing Notes - Aubree Plunkett RN - 05/09/2023 5:43 AM EDT 0543: Notified primary team about patient c/o seizure during MRI scan. Patient was reminded to staystill during exam and later told instructional technology coordinator that she thinks she had a seizure. When questioned why she thought she had a seizure she states she had an aura (smell) during scan. RN and instructional technology coordinator did not notice any jerking during scan other than head movement noted on MRI reading. Patient transported back to [facility] and VSS, she does endorse / for headache. [facility]10-27-2023 Progress note* Certification - Rebecca Velasquez MD - 05/09/2023 4:37 AM EDT I certify that this patient requires inpatient services at this time. I anticipate the expected length of stay will include at least two midnights. Inpatient services are due to the following medicalconcerns stroke vs sophia's paresis. Plans for post hospitalization care will be discharge to pending. [facility]10-27-2023 Nurse Note* Nursing Notes - Aubree Plunkett RN - 05/09/2023 4:15 AM EDT On admission to [facility], from ED a dual RN initial assessment of skin condition was performed by Aubree Plunkett RN and Ngoc Saldaña RN. Skin Assessment: Skin within defined limits:Yes Nathan Score: 15 LDA Added:No Aubree Plunkett RN No wounds identified at this time [facility]10-27-2023 Physician Emergency department Note* Slime Interiano MD [...] paralysis. Slime Interiano MD Resident 05/09/2330 [facility] Work Phone: 1(330) 562-430510-27-2023 Emergency department Note* Slime Interiano MD - [...] 3) ED Course as of 05/09/23 0030 [facility] May 08, [address] STROKE [...] patient. Ms. Mark is a 58 y.o. 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 LKW approx [...] epistaxis. Left Nostril: No epistaxis. Mouth/Throat: Lips: Macy. Mouth: Mucous membranes are moist. No lacerations. [...] CT perfusion examination is within normal limits [address] STROKE HEAD-STROKE ALERT [...] ED course above Update: Admit Neurovascular PCU [facility] Dr. Muhammad s/o to oncoming team. [...] relevant outpatient documentation reviewed [x] Discussed with strategic consultant(s) [x] Verbal report from EMS [x] [...] Prescription drug management. Decision regarding hospitalization. A qxlpmz-nm-qgay dictation tool was used in the production of this document and all attempts were made for proper editing, but errors may still occur. E036/E036 Madeline Cazares MD 05/08/23 2313 Madeline Cazares MD 05/08/23 2354 Madeline Cazares MD [...] of arrival: Comments: honorio documented in this [facility]OSC[facility]-27-2023 NoteAcute Coronary Syndrome (ACS): Initial Evaluation and Management: [email or web address] [facility]10-26-2023 History and physical note* Rebecca Velasquez MD [...] 1 Stroke Alert Activation (Or In House): 2300 Arrival Time of Stroke Team : 2301 Time of symptom onset: less than 24 hours Patient Location - Onset of Symptoms: Not in a healthcare setting Patient first presented to an [facility] ED facility: no Last Known Well: Date: 05/08/23 Last Known Well: Time: 1300 Source of information: [facility] Review of Systems: Pertinent items [...] Scales Flowsheet Row Most Recent Value Modified Krystina Scale Score Premorbid (MRSS) 0 filed on [...] Diagnostics/Procedures: Labs-CBC WBC/Hgb/Hct/Plts: 12.22/12.9/37.5/242 (05/08 2339) Labs-Chem 7([facility]) Bun/Creat/Cl/CO2/Glucose: 10/0.61/104/25/102 (05/08 2339) Na/K+/Phos/Mg/Ca: 134/3.6/3.3/1.8/8.1 (05/08 2339) Labs-Coags Ptt/Pt/Inr: 26.1/14.1/1.1 (05/08 2339) Additional Labs Lab Results Component Value Date CHOLESTEROL 137 05/08/2023 TRIG 95 05/08/2023 HDL 29 (L) 05/08/2023 LDLCALC 89 05/08/2023 Labs-Hemoglobin A1C No results found for: HGBA1C Imaging: Imaging was not analyzed by jaye Pierson O OS imaging CT Stroke Head: unremarkable [...] ED. Continuous telemetry -PT, OT, Speech and social media campaign manager consults Seizures - s/p Keppra load 4500 [...] lovenox SQ. Stroke education and smoking cessation. PT/OT/CONTRACT ASSOCIATE MANAGER consults. Dispo - DC aubrey Radu Aguilar MD [facility] Work Phone: 1(765) 490-428010-26-2023 History and physical note* Rebecca Velasquez MD [...] Known Well: Time: 1300 Source of information: [facility] medical record Review of Systems: Pertinent items [...] Level of Conciousness (Provider) 0 filed on 05/08/20230 [facility] LOC Questions (Provider) 0 filed on 05/08/20230 [facility] LOC Commands (Provider) 0 filed on [...] Scales Flowsheet Row Most Recent Value Modified Krystina Scale Score Premorbid (MRSS) 0 filed on [...] 8.6 mg 8.6 mg Per NG tube SULTANA Velasquez MD Scheduled Meds: aspirin 81 mg [...] Diagnostics/Procedures: Labs-CBC WBC/Hgb/Hct/Plts: 12.22/12.9/37.5/242 (05/08 2339) Labs-Chem 7([facility]) Bun/Creat/Cl/CO2/Glucose: 10/0.61/104/25/102 (05/08 2339) Na/K+/Phos/Mg/Ca: 134/3.6/3.3/1.8/8.1 (05/08 2339) Labs-Coags Ptt/Pt/Inr: 26.1/14.1/1.1 (05/08 2339) Additional Labs Lab Results Component Value Date CHOLESTEROL 137 05/08/2023 TRIG 95 05/08/2023 HDL 29 (L) 05/08/2023 LDLCALC 89 05/08/2023 Labs-Hemoglobin A1C No results found for: HGBA1C Imaging: Imaging was not analyzed by [facility], no O OS imaging CT Stroke Head: unremarkable [...] ED. Continuous telemetry -PT, OT, Speech and social media campaign manager consults Seizures - s/p Keppra load 4500 [...] lovenox SQ. Stroke education and smoking cessation. PT/OT/CONTRACT ASSOCIATE MANAGER consults. Dispo - DC aubrey Aguilar MD documented in [facility] Physician Emergency department Note* Madeline Cazares MD - 05/08/2023 11:07 PM EDT Images from the original note were not included. Emergency Department Encounter History No chief complaint on file. The history is provided by the patient, medical records and the EMS personnel. The history is limited by the condition of the patient. Ms. Mark is a 58 y.o. 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 LKW approx [...] 1998 APPENDECTOMY 1974 HYSTERECTOMY SUBTOTAL ABDOMINAL LAPAROSCOPIC No [...] epistaxis. Left Nostril: No epistaxis. Mouth/Throat: Lips: Macy. Mouth: Mucous membranes are moist. No lacerations. [...] of 05/09/23 0021 Myesha May 08, [address] STROKE HEAD-STROKE ALERT ONLY PRELIMINARY RESULT [...] ED course above Update: Admit Neurovascular PCU [facility] Dr. Muhammad s/o to oncoming team. Pt [...] relevant outpatient documentation reviewed [x] Discussed with strategic consultant(s) [x] Verbal report from EMS [x] [...] Prescription drug management. Decision regarding hospitalization. A edkoln-aa-suaz dictation tool was used in the production of this document and all attempts were made for proper editing, but errors may still occur. E036/E036 Madeline Cazares MD 05/08/23 2313 Madeline Cazares MD 05/08/23 2354 Madeline Cazares MD 05/09/23 0154 [facility] Emergency department Note* Neil Campos RN - 05/08/2023 10:59 PM EDT Pt arrives to CT scanner via medflight as Level A Stroke Alert. LKW: 1300 R sided droop, R sided weakness OSH CT scan: L M2 occlusion 2mg ativan given during transport for tremors and rapid eye fluttering. Pt alert and responsive, VSS ED attending and neurovascular in scanner. [facility] Emergency department Note* Aarti Crawford RN - 05/08/2023 10:59 PM EDT Bed: E036 Expected date: Expected time: Means of arrival: Comments: honorio [facility]23 NoteHNO ID: [id number] Author: Carol Gamez MD Service: ? Author Type: Physician Type: Progress Notes Filed: 11/11/2022 12:05 PM Note Text: [facility] Patient Name: Pardeep RAMIRES Date of : 1965 INITIAL EPILEPSY CLINIC NOTE 11/11/2022 10:00 AM CHIEF COMPLAINT: New Patient HISTORY OF PRESENT ILLNESS Ms. Mark is a 57 year old right-handed female seen in [facility] for initial consultation. [...] smell. - She saw a neurologist in [place] and did an 8-hour video EEG at [facility] that she reports captured an episode. The test was cut short following the captured event and started on carbamazepine for it. - Sometime later around age [age] years, she was evaluated at [facility] with an EMU that did not capture [...] at 7 am. She was taken to [place] and then transferred to [facility] on 07/15/22. - She was readmitted for [...] a fifth event at her grandson's birthday green party. - The sixth one was at [facility] ED. Her daughter had a video [...] other use Comorbidities: M (more content not included)...[facility]04-11-2023 NoteHNO ID: [id number] Author: Chapis Jin APRN.PROFESSOR OF FOREST PLANNING Service: ? Author Type: Nurse Practitioner Type: Progress Notes Filed: 10/22/2022 12:47 PM Note Text: [facility] Review of Records Patient: Pardeep Mark Address: [address] [place] [address] [address] [facility] [address] Impression: Review of records for Pardeep Mark, [...] stroke, obesity, HTN, chronic pain PRIOR EVALUATIONS: [facility] [address] [facility] [place] [address] Bedside EEG ([facility], 08/05/2022-08/07/2022): EEG is consistent with the diagnosis of a a moderate diffuse encephalopathy. No epileptiform discharges or EEG seizures were seen during this recording Bedside EEG ([facility], 10/07/2022-10/09/2022): EEG is consistent with the diagnosis of a mild to moderate diffuse encephalopathy. No epileptiform discharges or EEG seizures were seen during this recording MRI brain wo/w contrast ([facility], 08/07/2022): No acute findings or abnormal intracranial enhancement. 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 Gamez - Additional testing to be considered by epilepsy clinicians Signed: Chapis Jin APRN.PROFESSOR OF FOREST PLANNING October 22, [address] Mccarty for review and recommendations. MD Recommendations (as discussed with Dr. Mccarty): - Please proceed with the above plan.[facility]04-03-2023 Note [facility]04-03-2023 [facility] 10-14-2022 [facility]04-02-2023 NoteHNO ID: [id number] Author: Interface Note Service: ? Author Type: ? Type: Progress Notes Filed: 10/13/2022 1:56 AM Note Text: Epic Scheduled Downtime: 10/13/2022 1:00:00 AM to 10/13/2022 1:46:00 [facility]04-01-2023 NoteHNO ID: [id number] Author: Kassi Sánchez RN Service: Nursing Author Type: Registered Nurse Type: Nursing Progress Note Filed: 10/12/2022 10:37 AM Note Text: Pt stable but remains postictal.[facility]04-01-2023 [facility]04-01-2023 NoteHNO ID: [id number] Author: Kassi Sánchez RN Service: Nursing Author Type: Registered Nurse Type: Nursing Progress Note Filed: 10/12/2022 10:35 AM Note Text: Rapid response team at the bedside, pt still having seizure like activity.[facility]04-01-2023 NoteHNO ID: [id number] Author: Kassi Sánchez RN Service: Nursing Author Type: Registered Nurse Type: Nursing Progress Note Filed: 10/12/2022 9:57 AM Note Text: Rapid response team called, RN remains at the bedside.[facility]03-31-2023 [facility]03-31-2023 [facility]03-30-2023 [facility]03-30-2023 [facility]03-30-2023 [facility]03-30-2023 Note [facility]03-29-2023 [facility] 10-09-2022 [facility]03-28-2023 [facility]03-28-2023 [facility]03-27-2023 [facility]03-27-2023 [facility]03-27-2023 [facility]03-27-2023 [facility]03-26-2023 Note [facility]03-26-2023 [facility] 10-04-2022 [facility]02-03-2023 [facility]02-02-2023 [facility]02-02-2023 [facility]02-01-2023 [facility]02-01-2023 [facility]01-26-2023 [facility]01-26-2023 Note [facility]01-26-2023 [facility] 08-07-2022 [facility]01-25-2023 [facility]01-25-2023 [facility]01-24-2023 [facility]01-24-2023 [facility]01-23-2023 [facility]01-23-2023 [facility]01-23-2023 Note [facility]01-23-2023 [facility] 08-04-2022 [facility]01-21-2023 [facility]01-21-2023 [facility]01-20-2023 [facility]01-20-2023 [facility]01-20-2023 [facility]01-19-2023 [facility]01-19-2023 Note [facility]01-18-2023 NoteHNO ID: [id number] Author: Marlene Singh RN Service: ? Author Type: Registered Nurse Type: Nursing Progress Note Filed: 07/31/2022 4:40 PM Note Text: Pt resting in bed C/o mild pain. Scheduled pain meds given. Will continue to monitor.[facility]01-18-2023 [facility]01-17-2023 [facility]01-17-2023 [facility]01-16-2023 [facility]-16-2023 [facility]01-15-2023 [facility]01-15-2023 Note [facility]01-14-2023 [facility] 07-27-2022 [facility]01-14-2023 [facility]01-13-2023 [facility]01-13-2023 [facility]01-13-2023 [facility]01-13-2023 [facility]01-12-2023 [facility]01-12-2023 Note HNO ID: [id number] Author: Marlene Singh RN Service: ? Author Type: Registered Nurse Type: Nursing Progress Note Filed: 07/25/2022 12:51 PM Note Text: Pt resting in bed. Plan for today is pain management. Will continue to monitor.[facility]01-12-2023 [facility] 07-24-2022 NoteHNO ID: [id number] Author: Marlene Singh RN Service: ? Author Type: Registered Nurse Type: Nursing Progress Note Filed: 07/24/2022 6:10 PM Note Text: Pt temp 38.1C. Spoke with Dr Lloyd. Instructed to give tylenol and continue to monitor.[facility]01-11-2023 [facility]01-07-2023 [facility]01-07-2023 [facility]01-06-2023 [facility]01-06-2023 Note [facility]01[facility]05[facility]2023 [facility] Note [facility]01-03-2023 [facility] Evaluation note* Diagnosis Cerebrovascular accident (CVA), unspecified mechanism- Primary Right sided weakness Muscle weakness (generalized) Transient alteration of awareness Transient alteration of awareness [facility] Se[facility]ure (CMS/HCC V24, CMS/HCC V28)- Primary Other convulsions documented in this [facility] Narrative No data available for this section [facility] Discharge instructions* Attachments The following attachments cannot be sent through Care Everywhere. * [facility] Family History No Family [...] FoundDocuments on File Type Date Recorded Patient [employer] Expl anation HealthCare Power of Music Professor 05/11/2023 HealthCare Power of Music Professor 12/09/2013 Latest Code Status on File Code Status Date Activated Date Inactivated Comments Full Code 05/09/2023 12:21 AM Healthcare Agents on File Name Relationship Healthcare Agent Relationship Communication Caprice Downingbill Child Health Care Agent Cj Mark Child First Alternate Health Care Agent Dr Darinel Mark Child Second [facility] Health Care Agent Reason for Referral Specialty Diagnoses / Procedures Referred By Jan jameson Referred To Contact Physical Therapy Diagnoses Right sided weakness Transient alteration of awareness Gerhard Campos MD [address] [place] [address] Referral ID Status Reason Start Date Expiration Date V isits Requested Visits Authorized [id number] New Request 05/13/2023 06/06/2024 1 1 Scheduling Instructions [facility] [address], 2nd [place] [address] [phone] Fax [facility] (Neck and Back Therapy) [address] [place] [address] [phone] FAX [facility] [address] [address] [phone] FAX Outpatient Rehabilitation Outpatient [facility] [place] [address] [facility], [address] [place] [address] [phone] FAX [facility] [address] [place] [address] [facility]X [facility] [address], [address] [place] [address] [phone] FAX [facility] [address] [place] [address] [phone] FAX Outpatient Rehabilitation Outpatient Care [address], [address] [place] [address] [phone] FAX [facility] [address], [address] [place] [address] FAX [facility] [address] [facility], Room: [address] [place] [address] [phone] FAX [facility] [place] [address], [address] [place] [address] FAX [facility] [address] [place] [address] [phone] FAX [facility] [place] [address], [address] [place] [address] [phone] FAX [facility] [address], [address] [place] [address] [phone] FAX Outpatient Rehabilitation [facility] [place] [address], [address] [place] [address] [phone] FAX [facility] [address], [address] [place] [address] [phone] FAX [facility] [place] [address], [place] [address] [phone] FAX [facility] [address] [place] [address] [phone] FAX Outpatient Rehabilitation Outpatient Care [address], [address] [place] [address] [phone] FAX [facility] at [address] [address] [phone] FAX Outpatient Care [address] [address] [phone] FAX [facility] at [facility], [address] [place] [address] FAX Specialty Diagnoses / Procedures Referred By Contac t Referred To Contact Occupational Therapy Diagnoses Right sided weakness Transient alteration of awareness Gerhard Campos MD [address] [place] [address] Referral ID Status Reason Start Date Expiration Date V isits Requested Visits Authorized [id number] New Request 05/13/2023 06/06/2024 1 1 Specialty Diagnoses / Procedures Referred By Contac t Referred To Contact Procedures ECG Todd Muhammad MD [address] [place] [address] Referral ID Status Reason Start Date Expiration Date V isits Requested Visits Authorized [id number] New Request 05/09/2023 06/02/2024 1 1 Specialty Diagnoses / Procedures Referred By Contac t Referred To Contact Procedures PLATELET MONITORING PER PROTOCOL Todd Muhammad MD [address] [place] [address] Referral ID Status Reason Start Date Expiration Date V isits Requested Visits Authorized [id number] New Request 05/09/2023 06/02/2024 1 1 Specialty Diagnoses / Procedures Referred By Contac t Referred To Contact Procedures DVT/VTE RISK ASSESSMENT Todd Muhammad MD [address] [place] [address] Referral ID Status Reason Start Date Expiration Date V isits Requested Visits Authorized [id number] New Request 05/09/2023 06/02/2024 1 1 Specialty Diagnoses / Procedures Referred By Contac t Referred To Contact Procedures ECG Madeline Cazares MD [address] [place] [address] Referral ID Status Reason Start Date Expiration Date V isits Requested Visits Authorized [id number] New Request 05/08/2023 06/01/2024 1 1 Referral ID Status Reason Start Date Expiration Date V isits Requested Visits Authorized [id number] New Request 05/08/2023 06/01/2024 1 1 Additional Source Comments INFORMATION SOURCE (unrecogn ized section and content) DATE CREATED AUTHOR 12/23/2018 [employer] [facility] DATE CREATED AUTHOR AUTHOR'S ORGANIZ ATION 08/28/2022 [facility] DATE CREATED AUTHOR AUTHOR'S ORGANIZ ATION 10/29/2022 [facility] DATE CREATED AUTHOR AUTHOR'S ORGANIZ ATION 11/08/2022 [facility] DATE CREATED AUTHOR AUTHOR'S ORGANIZ ATION 11/16/2022 [facility] DATE CREATED AUTHOR AUTHOR'S ORGANIZ ATION 06/15/2023 [facility] DATE CREATED AUTHOR AUTHOR'S ORGANIZ ATION 08/08/2023 [facility] DATE CREATED AUTHOR AUTHOR'S ORGANIZ ATION 10/08/2023 [facility] DATE CREATED AUTHOR AUTHOR'S ORGANIZ ATION 12/24/2023 [facility] DATE CREATED AUTHOR AUTHOR'S ORGANIZ ATION 01/01/2025 [facility] DATE CREATED AUTHOR AUTHOR'S ORGANIZ ATION 05/16/2025 [facility] Reason for Visit (unrecogniz ed section and content) Specialty Diagnoses / Procedures Referred By Jan t Referred To Contact Diagnoses Cerebrovascular accident (CVA), unspecified mechanism Level A Stroke, Possible LVO Todd Muhammad MD [address] [place] [address] [facility] [address] [place] [address] Referral ID Status Reason Start Date Expiration Date Visits Re quested Visits Authorized [id number] 1 1 Reason Comments Seizures Pt to [...] RN)2007 (Given - Provider: Kameron Gama RN) 0820 (Given - Provider: Yulia Moore, RICHARD - Comment: phantom pain)2014 (Given - Provider: Farhan Boland, RN) 0816 (Given - Provider: uYlia Moore, RN) buprenorphine ER (SUBLOCADE) SQ injection 300 [...] dose on Fri05/09/23 at 0900, Until Discontinued 0900 (Automatically Held - Provider: Rebecca Velasquez MD)2100 (Automatically Held - Provider: Rebecca Velasquez MD) 09 (Automatically Held - Provider: Rebecca Velasquez MD)1304 (Unheld by provider - Provider: Candi Martínez DO)2014 (Given - Provider: Farhan Boland RN) 0816 [...] Jaimes RN) 0820 (Given - Provider: Yulia oMore RN) 0816 (Given - Provider: Yulia Moore [...] Jaimes RN)2007 (See Alternative - Provider: Kameron Gama RN) Acetaminophen (TYLENOL) tablet 325 mg(Linked Group 3) 325 mg, Per NG tube, EVERY 4 HOURS NEEDED, Starting on Fri05/09/23 at 0018, Until Fri05/13/23 at 1829, Mild Pain, Moderate Pain, Maximum dose of acetaminophen is 4000 mg from all sources in 24 hours. 0848 (See Alternative - Provider: Candi Jaimes RN)154 (See Alternative - Provider: Candi Jaimes RN)2007 (See Alternative - Provider: Kameron Gama, RN) Acetaminophen (TYLENOL) tablet 650 mg(Linked Group 3) 650 mg, Oral, EVERY 4 HOURS NEEDED, Starting on Fri05/09/23 at 0018, Until Fri05/13/23 at 1829, Severe Pain, Oral temp > 99.5, Maximum dose of acetaminophen is 4000 mg from all sources in 24 hours. 0848 (Given - Provider: Candi Jaimes RN)154 (Given - Provider: Candi Jaimes RN)2007 (Given - Provider: Kameron Gama, RN) Acetaminophen (TYLENOL) tablet 650 mg(Linked Group 3) [...] on Fri05/09/23 at 0018, Until Fri05/13/23 at 182, Systolic Blood Pressure greater than 220 mmHg [...] TIMES DAILY NEEDED, 6 doses, Starting on 05/11/23 at 0413, Until Fri05/13/23 at 1829, Itching, Apply to affected area 0548 (Given - Provider: Kameron Gama RN)2007 (Given - Provider: Kameron Gama RN) 0821 (Given - Provider: Yulia Moore, RN) 0815 (Given - Provider: Yulia Moore [...] on Fri05/09/23 at 0018, Until Fri05/13/23 at 182, Systolic Blood Pressure greater than 220 mmHg [...] on Fri05/09/23 at 0018, Until Fri05/13/23 at 182, Systolic Blood Pressure greater than 220 mmHg [...] on Fri05/09/23 at 0018, Until Fri05/13/23 at 182, Systolic Blood Pressure greater than 220 mmHg [...] on Fri05/09/23 at 0018, Until Fri05/13/23 at 182, Systolic Blood Pressure greater than 220 mmHg [...] Care Teams (unrecognized sec tion and content) Color Technician Relationship Specialty Start Date End Date Tammy Karimi MD [address] [place] [address] PCP - General Family Medicine 10/21/22 Color Technician Relationship Specialty Start Date End Date Physician, [...] BE BASED ON THE PRIMARY CLINICAL RECORDS. [employer] [facility]. provides no warranty or guarantee of the accuracy or completeness of information in this document.
[2025-06-27] MEDS: Divalproex (ER) 500 MG Tablet PO ×2 (20:49)
[2025-06-28] VITALS (7 sets, daily range): BP systolic 106–127; BP diastolic 57–83; PULSE 58–103; RESP 16–18; TEMP 36.4–36.8; O2SAT 92–100
[2025-06-28] MEDS: hydrOXYzine PAM 25 MG Capsule 50 MG PO (04:39)
[2025-06-28] MEDS: Thiamine Hydrochloride 100 MG Tablet PO (10:26)
[2025-06-28] MEDS: Aspirin E.C. 81 MG Tablet PO (10:26)
[2025-06-28] MEDS: Divalproex (ER) 500 MG Tablet PO ×3 (10:27→20:59)
--- NOTE | 2025-06-28 11:26 | ADDICTION ---
Met with Pt to complete RAMP assessments Pt answered all questions appropriately. Pt identifies her level of use but appears to use environmental factors as a justification. Clinician informed pt of her treatment options. Clinician will return tomorrow to discuss d/c planning.
--- NOTE | 2025-06-28 15:43 | PN.HOSP_ITS ---
Reason for Visit Chief Complaint: Alcohol withdrawal seizure, desire for alcohol detox Subjective Subjective Evaluated at bedside, resting comfortably, wakes up and answers questions appropriately, feels little bit shaky and tired but has no other acute complaints. Objective Data Objective Data Vital Signs: Vital Signs Temp Pulse Resp BP Pulse Ox O2 Del Method O2 Flow Rate 97.6 F L 58 L 16 106/57 L 98 Nasal Cannula 1.5 06/28/25 09:44 06/28/25 09:44 06/28/25 09:44 06/28/25 09:44 06/28/25 09:44 06/28/25 10:44 06/28/25 10:44 Oxygen Flow Rate (L/min) 1.5 Oxygen Delivery Method Nasal Cannula Weight: 88.5 kg Body Mass Index (BMI) 34.5 Intake & Output: Intake and Output for Last 24 Hours 06/26/25 06/27/25 06/28/25 23:59 23:59 23:59 Intake Total 2105 / 2355 400 / 400 Output Total 100 / 100 Balance 2105 / 2355 300 / 300 Lab / Micro Data 06/27/25 15:00 06/27/25 15:00 Labs: Laboratory Results - last 24 hr 06/27/25 15:00: Sodium 138, Potassium 3.9, Chloride 100, Carbon Dioxide 28.1, Anion Gap 11, BUN 6, Creatinine 0.57 L, Estim Creat Clear Calc 108.95, Est GFR (MDRD) Non-Af 104, BUN/Creatinine Ratio 11.2, Glucose 112 H, Calcium 9.0, Total Bilirubin 0.70, Direct Bilirubin 0.34 H, AST 66 H, ALT 55 H, Alkaline Phosphatase 105 H, Total Protein 6.9, Albumin 4.2, Globulin 2.7, Lipase 21 06/27/25 16:00: Urine Color Straw, Urine Clarity Clear, Urine pH 8.0, Ur Specific [place] 1.010, Urine Protein Negative, Urine Glucose (UA) Normal, Urine Ketones Negative, Urine Occult Blood 25 H, Urine Nitrite Negative, Urine Bilirubin Negative, Urine Urobilinogen Normal, Ur Leukocyte Esterase Negative, Urine RBC 0-5 SEEN, Urine WBC 0-5 SEEN, Ur Squamous Epith Cells 0-5 SEEN, Urine Bacteria 0 SEEN, Urine Mucus 0 SEEN, Valproic Acid 120 H 06/27/25 18:31: Urine Opiates Screen NEGATIVE, U Buprenorphine Qual PRESUMPTIVE POSITIVE, Ur Oxycodone Screen NEGATIVE, Urine Methadone Screen NEGATIVE, Urine Fentanyl Screen NEGATIVE, Ur Barbiturates Screen PRESUMPTIVE POSITIVE, Ur Phencyclidine Scrn NEGATIVE, Ur Amphetamines Screen NEGATIVE, U Benzodiazepines Scrn NEGATIVE, Urine Cocaine Screen NEGATIVE, U Cannabinoids Screen NEGATIVE Physical Exam Narrative General: Resting comfortably but wakes up and answers questions appropriately HEENT: Atraumatic Eyes: extraocular movements grossly intact Neck: Supple Respiratory: normal respiratory effort Cardiovascular: no edema appreciated GI: nondistended Extremities: Moving all extremities Neuro: No overt focal neurological deficits Psych: Cooperative Assessment & Plan Assessment/Plan (1) Alcohol abuse: (2) Alcohol withdrawal: PLAN: Plan Patient is a 60-year-old female who presented to [facility] ED on 06/27/2025 with a suspected alcohol withdrawal seizure and desire for alcohol detox. #Alcohol abuse with reported alcohol withdrawal seizure, desire for alcohol detox ? Admit under inpatient status to [facility]. Case management consulted. Patient had reported seizure at home on morning of admission that was unwitnessed; has history of alcohol withdrawal seizures as well as complex partial seizures as below. Alcohol level 74 in the ED and patient appeared to be in active withdrawal with hypertension and tachycardia that improved with phenobarbital and Ativan. No seizure activity in the ED. Highest suspicion is for a possible alcohol withdrawal seizure at home, so patient is okay to be managed on the [facility] floor on a phenobarbital taper. Will treat with phenobarb taper and other as needed medications per alcohol withdrawal order set. Appreciate case management recommendations. -06/28: Patient on phenobarb taper and is tolerating this well, is tired and resting comfortably but wakes up and answers questions appropriately. Addiction medicine evaluated patient and will explore discharge options further tomorrow #Seizure disorder -06/28: Patient supratherapeutic on Depakote, this has been down titrated by her outpatient neurologist, continue current dose, suspect breakthrough seizure was due to alcohol/alcohol withdrawal. Can follow-up with her neurologist on discharge. Highly advised alcohol cessation #Mild elevated LFTs ? Presume secondary to alcohol abuse as above. No need to trend further while inpatient. -06/28: Outpatient follow-up # History of opioid dependence -06/28: Reportedly has been in remission for several years, home buprenorphine continued, patient is reported that this is for chronic pain but does seem that she has the diagnosis of opioid dependence # History depression/anxiety = Patient continued on her Lexapro #DVT ppx: Lovenox subcu Kiersetn Ortiz MD Charges/Coding Visit Charges Inpatient E&M: 99959 Subs Hosp L2
[2025-06-29 04:39] VITALS: BP 122/73; PULSE 71; RESP 16; TEMP 36.4; O2SAT 95
[2025-06-29] MEDS: Aspirin E.C. 81 MG Tablet PO (08:36)
[2025-06-29] MEDS: Thiamine Hydrochloride 100 MG Tablet PO (08:36)
[2025-06-29 10:08] VITALS: BP 105/73; PULSE 69; RESP 18; TEMP 36.5; O2SAT 97
[2025-06-29] MEDS: Divalproex (ER) 500 MG Tablet PO ×3 (10:14→21:07)
--- NOTE | 2025-06-29 12:08 | PN.HOSP_ITS ---
Reason for Visit Chief Complaint: Alcohol withdrawal seizure, desire for alcohol detox Subjective Subjective Having some whole body tremors, feeling better overall but tremors are increased from baseline but she reports this happens when she is withdrawing Objective Data Objective Data Vital Signs: Vital Signs Temp Pulse Resp BP Pulse Ox O2 Del Method O2 Flow Rate 97.7 F L 69 18 105/73 97 Nasal Cannula 2 06/29/25 10:08 06/29/25 10:08 06/29/25 10:08 06/29/25 10:08 06/29/25 10:08 06/29/25 10:08 06/29/25 10:08 Oxygen Flow Rate (L/min) 2 Oxygen Delivery Method Nasal Cannula Weight: 88.5 kg Body Mass Index (BMI) 34.5 Intake & Output: Intake and Output for Last 24 Hours 06/27/25 06/28/25 06/29/25 23:59 23:59 23:59 Intake Total 2105 / 2355 1350 / 1350 150 / 150 Output Total 100 / 100 100 / 100 Balance 2105 / 2355 1250 / 1250 50 / 50 Lab / Micro Data 06/27/25 15:00 06/27/25 15:00 Physical Exam Narrative General: Awake and answering questions appropriately HEENT: Atraumatic Eyes: extraocular movements grossly intact Neck: Supple Respiratory: normal respiratory effort Cardiovascular: no edema appreciated GI: nondistended Extremities: Moving all extremities Neuro: Has tremors most noticeable on outstretched arms Psych: Cooperative Assessment & Plan Assessment/Plan (1) Alcohol abuse: (2) Alcohol withdrawal: PLAN: Plan Patient is a 60-year-old female who presented to [facility] ED on 06/27/2025 with a suspected alcohol withdrawal seizure and desire for alcohol detox. #Alcohol abuse with reported alcohol withdrawal seizure, desire for alcohol detox ? Admit under inpatient status to [facility]. Case management consulted. Patient had reported seizure at home on morning of admission that was unwitnessed; has history of alcohol withdrawal seizures as well as complex partial seizures as below. Alcohol level 74 in the ED and patient appeared to be in active withdrawal with hypertension and tachycardia that improved with phenobarbital and Ativan. No seizure activity in the ED. Highest suspicion is for a possible alcohol withdrawal seizure at home, so patient is okay to be managed on the [facility] floor on a phenobarbital taper. Will treat with phenobarb taper and other as needed medications per alcohol withdrawal order set. Appreciate case management recommendations. -06/28: Patient on phenobarb taper and is tolerating this well, is tired and resting comfortably but wakes up and answers questions appropriately. Addiction medicine evaluated patient and will explore discharge options further tomorrow -06/29: Given her continued tremors which she reports are worse during withdrawal suspect patient will need to complete full taper and can likely be discharged on Friday, continue phenobarb taper and supportive medications #Seizure disorder -06/28: Patient supratherapeutic on Depakote, this has been down titrated by her outpatient neurologist, continue current dose, suspect breakthrough seizure was due to alcohol/alcohol withdrawal. Can follow-up with her neurologist on discharge. Highly advised alcohol cessation -06/29: Patient's Depakote level on presentation was 120, she had been seen by neurology 02/15/2025 and had her Depakote decreased so level of 120s actually down from the level prior. Unclear if Depakote could be causing patient's tremors or if this is all from alcohol withdraw. She remains on phenobarb taper. Ultimately may need Depakote further decreased, given the fact that she came in with breakthrough seizures would be hesitant to do so acutely if not necessary. Either way will need to follow-up with neurology when she leaves for further medication management. Per the neuronote from February she does have at least some amount of chronic tremor. Could always consider beta-dixie if blood pressure and heart rate tolerate but given patient's other concomitant medication she is receiving blood pressure is 105/73 so we will hold off on initiation at this time Chronic medical problems and/or problems not being actively addressed during today's encounter: #Mild elevated LFTs ? Presume secondary to alcohol abuse as above. No need to trend further while inpatient. -06/28: Outpatient follow-up # History of opioid dependence -06/28: Reportedly has been in remission for several years, home buprenorphine continued, patient is reported that this is for chronic pain but does seem that she has the diagnosis of opioid dependence # History depression/anxiety = Patient continued on her Lexapro #DVT ppx: Lovenox subcu Kiersten Ortiz MD Time spent in the patient's overall evaluation,decision-making process, review of diagnostic data, adjustment of management, discussion with other providers, nursing nursing and ancillary staff involved in patient's care documentation, 37 Minutes Charges/Coding Visit Charges Inpatient E&M: 41476 Subs Hosp L2
[2025-06-29 13:05] VITALS: BP 104/58; PULSE 67; RESP 16; TEMP 36.9; O2SAT 97
--- NOTE | 2025-06-29 15:43 | CASEMGMT ---
Social Work- SW collaborated with RAMP coordinator. Pt plans to d/c to [facility] on Friday. SW remains available to follow for any needs. LAW Goodrich
[2025-06-29 16:50] VITALS: BP 105/63; PULSE 67; RESP 16; TEMP 36.9; O2SAT 97
[2025-06-29 21:05] VITALS: BP 121/70; PULSE 78; RESP 16; TEMP 36.9; O2SAT 94
[2025-06-29 21:12] VITALS: O2SAT 94
[2025-06-30] VITALS (7 sets, daily range): BP systolic 107–116; BP diastolic 59–72; PULSE 71–80; RESP 16–18; TEMP 36.6–37.1; O2SAT 92–100
--- NOTE | 2025-06-30 11:03 | PCM.PN.HOSP ---
Reason for Visit Chief Complaint: Alcohol withdrawal seizure, desire for alcohol detox Subjective Subjective Saw patient bedside this morning. Patient was sleeping when I arrived to the room. She remained fatigued during her encounter but was answering questions appropriately. Noted that she is planning to continue with telehealth intensive outpatient therapy on discharge. No other new concerns this morning. Objective Data Objective Data Vital Signs: Vital Signs Temp Pulse Resp BP Pulse Ox O2 Del Method O2 Flow Rate 98.2 F 80 16 107/68 92 Nasal Cannula 2 06/30/25 01:13 06/30/25 01:13 06/30/25 01:13 06/30/25 01:13 06/30/25 07:12 06/30/25 07:12 06/30/25 07:12 Oxygen Flow Rate (L/min) 2 Oxygen Delivery Method Nasal Cannula Weight: 88.5 kg Body Mass Index (BMI) 34.5 Intake & Output: Intake and Output for Last 24 Hours 06/28/25 06/29/25 06/30/25 23:59 23:59 23:59 Intake Total 1350 / 1350 1500 / 1650 300 / 300 Output Total 100 / 100 750 / 750 400 / 400 Balance 1250 / 1250 750 / 900 -100 / -100 Lab / Micro Data 06/27/25 15:00 06/27/25 15:00 Patient's Goals Of Care - F/U Goals Reviewed Goals of care reviewed with patient: NA-No significant change in clinical Status /major procedure scheduled Physical Exam Const alert, oriented x3 and no apparent distress Constitutional Narrative: Upper middle-aged female, class I obesity, alert but somewhat somnolent appearing, otherwise laying back comfortably in bed, answering questions with short appropriate responses, in no acute distress. General Appearance: cooperative and comfortable HEENT normocephalic, head/scalp atraumatic, hearing grossly normal bilaterally, nasal mucous membranes and turbinates normal and moist oral mucous membranes Eyes PERRL, EOMs intact bilaterally and conjunctivae normal Neck full ROM Chest inspection of chest normal Resp normal respiratory effort, normal air movement, no use of accessory muscles and clear to auscultation bilaterally Cardio regular rate, regular rhythm, no murmurs and peripheral pulses 2+ throughout GI normal to inspection, nondistended, normoactive bowel sounds, soft to palpation, non-tender and non-distended Back/Spine normal ROM Extremity normal to inspection, full ROM and no pedal edema Skin no rashes or lesions noted Neuro moves all extremities and no focal motor deficits Speech: speech normal Assessment & Plan Assessment/Plan (1) Alcohol abuse: (2) Alcohol withdrawal: PLAN: Plan Patient is a 60-year-old female who presented to [facility] ED on 06/27/2025 with a suspected alcohol withdrawal seizure and desire for alcohol detox. 1. Alcohol abuse with reported alcohol withdrawal seizure, desire for alcohol detox ? Case management following. Patient had reported seizure at home on morning of admission that was unwitnessed; has history of alcohol withdrawal seizures as well as complex partial seizures as below. Alcohol level 74 in the ED and patient appeared to be in active withdrawal with hypertension and tachycardia that improved with phenobarbital and Ativan. No seizure activity in the ED. Patient with adequate symptom control on phenobarbital taper with other as needed medications per alcohol withdrawal order set. She did have tremors noted on hospital day 2 especially that have slowly been improving so will complete full phenobarbital taper. Patient planning to resume telehealth intensive outpatient therapy on discharge. Tentatively planning for discharge home tomorrow. 2. Seizure disorder ? Follows with outpatient neurology. Was supratherapeutic on Depakote in February so dose was titrated down at that time. Depakote level slightly elevated at 120 on admission but this is decreased from previous. Patient did have some tremors on hospital day 2 as noted above suspected due to alcohol withdrawal but may also be in part due to Depakote. She may need further dose reduction but will defer this to outpatient neurology and continue home dose at this time. 3. Mild elevated LFTs ? Presume secondary to alcohol abuse as above. No need to trend further while inpatient. Chronic medical conditions: ? Class I obesity: BMI 34.6 on admit. Complicates hospital course and care. ? Previous history of opiate dependence: Has been in remission now for several years. Continue home buprenorphine. ? 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 Stable. ? Depression/anxiety: Continue home escitalopram. ? Hyperlipidemia: Continue home baby aspirin. Was previously on home statin medication but it appears this was discontinued for an unclear reason; will hold off on restarting at this time. DVT prophylaxis: Lovenox CODE STATUS: Full code, verified Expected disposition: Home, 1 to 2 days Total clinical time spent by myself addressing the patient's medical issues, reviewing all the data, and collaborating with patient's care team: 36 minutes. Charges/Coding Visit Charges Inpatient E&M: 60541 Subs Hosp L2
[2025-06-30] MEDS: Aspirin E.C. 81 MG Tablet PO (11:25)
[2025-06-30] MEDS: Thiamine Hydrochloride 100 MG Tablet PO (11:26)
[2025-06-30] MEDS: Divalproex (ER) 500 MG Tablet PO ×3 (11:27→20:51)
--- NOTE | 2025-06-30 12:21 | ADDICTION ---
Mt with pt again today and she reports that she feels it is best that she continues with telehealth IOP at [facility]. She reports thet also administer her MAT and she has a therapist she actively sees.
[2025-06-30] MEDS: 0.9% Saline Lock 10 ML Syringe IV (20:46)
[2025-07-01 03:09] VITALS: BP 108/88; PULSE 76; RESP 18; TEMP 36.4; O2SAT 100
[2025-07-01 07:22] VITALS: O2SAT 93
[2025-07-01 08:14] VITALS: BP 105/67; PULSE 70; RESP 18; TEMP 36.4; O2SAT 96
[2025-07-01] MEDS: Thiamine Hydrochloride 100 MG Tablet PO (08:43)
[2025-07-01] MEDS: Aspirin E.C. 81 MG Tablet PO (08:43)
[2025-07-01] MEDS: Divalproex (ER) 500 MG Tablet PO (08:44)
--- NOTE | 2025-07-01 10:55 | DS.PCM_ITS ---
Providers Date of Admission: 06/27/25 Date of Discharge: 07/01/25 Primary Care Physician: Dr. Issac Karimi MD Reason For Visit: ALCOHOL WITHDRAWAL WITH SEIZURES, ALCOHOL DETOX Diagnosis Discharge Diagnosis (1) Alcohol abuse: Status: Acute Code(s): F10.10 - Alcohol abuse, uncomplicated (2) Alcohol withdrawal: Status: Acute Code(s): F10.939 - Alcohol use, unspecified with withdrawal, unspecified Medications at Discharge Home Medications aspirin 81 mg tablet,delayed release 81 mg PO DAILY heart health 05/20/18 escitalopram oxalate 10 mg tablet 10 mg PO DAILY mental health 07/17/24 multivitamin (Daily Multi-Vitamin tablet) 1 tab PO DAILY vitamin 01/17/25 divalproex 250 mg tablet,delayed release 250 mg PO QAM #30 tabs 04/29/25 divalproex 500 mg tablet,delayed release See Rx Instructions PO .COMPLEX Seizure disorder #90 tabs 04/29/25 acamprosate 333 mg tablet,delayed release 333 mg PO TID 06/27/25 buprenorphine HCl 8 mg sublingual tablet 16 mg sublingual QDAY 06/27/25 Hospital Course Operations None Procedures None Summary of Care Provided Minutes Spent on Discharge: 35 Hospital Course: Patient is a 60-year-old female who presented to [facility] ED on 06/27/2025 with a suspected alcohol withdrawal seizure and desire for alcohol detox. Hospital course as noted below. Patient discharged home in stable condition on 07/01. . Alcohol abuse with reported alcohol withdrawal seizure, desire for alcohol detox ? Case management followed. Patient had reported seizure at home on morning of admission that was unwitnessed; has history of alcohol withdrawal seizures as well as complex partial seizures as below. Alcohol level 74 in the ED and patient appeared to be in active withdrawal with hypertension and tachycardia that improved with phenobarbital and Ativan. No seizure activity in the ED. Patient with adequate symptom control on phenobarbital taper but notably she did become quite somnolent and had intermittent urinary retention due to this as below, so phenobarbital was discontinued on 06/30. Patient much more awake and alert on morning of 07/01 with no withdrawal symptoms noted. Patient will resume telehealth intensive outpatient therapy on discharge for now but is interested in pursuing inpatient treatment in the next few weeks; she wished to go home and spend [place] with her family prior to doing this. Discharged home in stable condition on 07/01. 2. Seizure disorder ? Follows with outpatient neurology. Was supratherapeutic on Depakote in February so dose was titrated down at that time. Depakote level slightly elevated at 120 on admission but this is decreased from previous. Patient did have some tremors on hospital day 2 suspected due to alcohol withdrawal but may also be in part due to Depakote. She may need further dose reduction but will defer this to outpatient neurology and continue home dose at this time. 3. Mild elevated LFTs ? Presume secondary to alcohol abuse as above. No need to trend further while inpatient. 4. Urinary retention, improved ? Patient with intermittent urinary retention on 06/29 and 06/30, and she did require 3 straight caths for this. Strongly suspect this was secondary to somnolence from phenobarbital. UA normal on admit. Patient much more awake and alert on morning of discharge and urinated on her own multiple times without issue. Chronic medical conditions: ? Class I obesity: BMI 34.6 on admit. Complicated hospital course and care. ? Previous history of opiate dependence: Has been in remission now for several years. Continue home buprenorphine. ? 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 Stable. ? Depression/anxiety: Continue home escitalopram. ? Hyperlipidemia: Continue home baby aspirin. Was previously on home statin medication but it appears this was discontinued for an unclear reason; will hold off on restarting at this time. Total clinical time spent by myself addressing the patient's medical issues, reviewing all the data, and collaborating with patient's care team: 35 minutes. Physical Exam Const alert, oriented x3 and no apparent distress Constitutional Narrative: Upper middle-aged female, class I obesity, more awake and alert today, sitting comfortably in bedside chair, conversing normally, in no acute distress. General Appearance: cooperative and comfortable HEENT normocephalic, head/scalp atraumatic, hearing grossly normal bilaterally, nasal mucous membranes and turbinates normal and moist oral mucous membranes Eyes PERRL, EOMs intact bilaterally and conjunctivae normal Neck full ROM Chest inspection of chest normal Resp normal respiratory effort, normal air movement, no use of accessory muscles and clear to auscultation bilaterally Cardio regular rate, regular rhythm, no murmurs and peripheral pulses 2+ throughout GI normal to inspection, nondistended, normoactive bowel sounds, soft to palpation, non-tender and non-distended Back/Spine normal ROM Extremity normal to inspection, full ROM and no pedal edema Skin no rashes or lesions noted Neuro moves all extremities and no focal motor deficits Speech: speech normal Psych mental status grossly normal Weight / BMI Weight Weight: 88.5 kg Body Mass Index (BMI) 34.5 ABG / Lab / Microbiology Data 06/27/25 15:00 06/27/25 15:00 D/C Instructions DC O2, CPAP, BIPAP Needs Home O2 Discharge instructions: No Patient's Goals Of Care - F/U Goals Reviewed Goals of care reviewed with patient: NA-No significant change in clinical Status /major procedure scheduled Meaningful Use Info Meaningful Use Meaningful Use Diagnoses (Choose all that apply): None applicable Discharge Plan Admission Admit Date/Time: 06/27/25 18:18 Primary Reason for Your Visit: seizure, alcohol withdrawal Attending Provider: Jt Morales Primary Care Provider: Issac Karimi Consulting Providers: Jt Morales; Kiersten Ortiz Discharge Orders/Prescriptions Prescriptions: Continued aspirin 81 MG tablet 81 mg PO DAILY multivitamin [Daily Multi-Vitamin] Tablet 1 tab PO DAILY acamprosate 333 mg tablet,delayed release (DR/EC) 333 mg PO TID buprenorphine HCl 8 mg tablet, sublingual 16 mg sublingual QDAY escitalopram oxalate 10 mg tablet 10 mg PO DAILY divalproex 500 mg tablet,delayed release (DR/EC) See Rx Instructions PO .COMPLEX Qty: 90 1RF Rx Instructions: Take one 500mg tablet and one 250mg tablet every morning (total 750mg) and two 500mg tablets nightly (total 1000mg) divalproex 250 mg tablet,delayed release (DR/EC) 250 mg PO QAM Qty: 30 1RF Rx Instructions: Take one 250mg tablet (in addition to the 500mg tablet) every morning Referrals / Follow Up: Issac Karimi MD [Primary Care Provider, Family Practice] Disposition Disposition (needs filled in before D/C Order can be placed): Home, Self Care Charges/Coding Visit Charges Inpatient E&M: 75515 Disch Hosp >30min
--- NOTE | 2025-07-01 11:23 | PHA.DC.MR.R ---
Pharmacy MA Med Reconciliation Pharmacy Service has performed discharge medication reconciliation for this patient. The patient's discharge medication list was reviewed for discrepancies and discrepancies were resolved. Medications at Discharge Home Medications aspirin 81 mg tablet,delayed release 81 mg PO DAILY heart health 05/20/18 escitalopram oxalate 10 mg tablet 10 mg PO DAILY mental health 07/17/24 multivitamin (Daily Multi-Vitamin tablet) 1 tab PO DAILY vitamin 01/17/25 divalproex 250 mg tablet,delayed release 250 mg PO QAM #30 tabs 04/29/25 divalproex 500 mg tablet,delayed release See Rx Instructions PO .COMPLEX Seizure disorder #90 tabs 04/29/25 acamprosate 333 mg tablet,delayed release 333 mg PO TID 06/27/25 buprenorphine HCl 8 mg sublingual tablet 16 mg sublingual QDAY 06/27/25
[2025-07-01 12:45] LABS: Mucous, Urine 0 SEEN /hpf (<or=2+); Red Blood Cells-Urine 0 SEEN /hpf (0-5); Squamous Epithelial Cells - UA 0 SEEN /hpf (5-10)
[2025-07-01 12:47] LABS: Color, Urine Yellow (Yellow); Glucose, Dipstick Normal (Normal); Ketone-Dipstick 5 mg/dl (Negative); Leukocyte Esterase-Dipstick 500 /ul (Negative); Nitrite-Dipstick Positive (Negative); Occult Blood-Urine 150 /ul (Negative); Protein-Dipstick 100 mg/dl (Negative); Specific Gravity, Urine 1.020 (1.002-1.030)
[2025-07-01 12:48] LABS: Urine Bilirubin Dipstick 1 mg/dL (Negative)
--- NOTE | 2025-07-01 14:29 | NURSING ---
Pt talking with SARAH Small. Pt states she can't go home because she only has one suboxone left. Pt very tearful.
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
[2025-07-01 16:15] VITALS: BP 144/94; PULSE 67; RESP 18; TEMP 36.6; O2SAT 93
== END 2025-07-01 16:35 | disposition home or self-care (01) | DRG 897 ==
LOC: ED 18:22 → MS3 18:58
PROVIDERS: Admitting Provider Hospitalist; Emergency Provider Emergency Medicine; PCP Family Medicine; Visit Provider Hospitalist
DX: F10.139 Alcohol abuse with withdrawal, unspecified (principal); E66.811 Obesity, class 1; G40.909 Epilepsy, unspecified, not intractable, without status epilepticus; F32.A Depression, unspecified; I10 Essential (primary) hypertension; F41.9 Anxiety disorder, unspecified; E78.5 Hyperlipidemia, unspecified; Z68.34 Body mass index [BMI] 34.0-34.9, adult; Z79.82 Long term (current) use of aspirin; Z79.899 Other long term (current) drug therapy; Y90.3 Blood alcohol level of 60-79 mg/100 ml; Z86.73 Personal history of transient ischemic attack (TIA), and cerebral infarction without residual deficits
CPT/HCPCS: 80048; 80076; 80164; 80307; 81001; 82077; 83690; 85025; 93005; 94668; 99285; A4216; J2405

== ENCOUNTER → 2025-07-03 | Outpatient (CLI) | payer OTHER, SELFPAY | END | disposition home or self-care (01) | LOC: LABSPEC 07-04 10:19 | PROVIDERS: PCP Family Medicine; Visit Provider Nurse Practitioner Family | DX: R35.0 Frequency of micturition (principal) | CPT/HCPCS: 87077; 87086; 87088; 87186 ==